=== PATIENT | female | born 1985 | race Caucasian/White ===

== ENCOUNTER 2022-11-09 10:00 | Outpatient (RCR) | payer MEDICAID, SELFPAY ==
[2022-10-12 08:58] VITALS: BP 138/100; PULSE 78; RESP 16; TEMP 35.9; BMI 28.3
--- NOTE | 2022-10-12 13:00 | PCM.WC.HP ---
History of Present Illness Date of Service: 10/12/22 Chief Complaint: Left Leg Ulcer. Right Middle finger ulcer History of Wound: Ms. Lemus is a 36-year-old who was referred to the wound center due to nonhealing left lower extremity and right hand ulcers. Left lower extremity ulcer started a year ago. She believes that it opened after poison rosa dermatitis a year ago following tattoo to the area. She states that she has been keeping it clean and about a month ago started putting Bactroban on it however no significant improvement. Right middle finger ulcer started a month ago. Works at [employer] and also has Raynaud's disease. She believes that it may have started from repeated pushing of the air Fryer at work. Significant pain reported especially in the right middle finger. History of diabetes mellitus and last A1c was at 6.6. Currently not on any medication. Also history of tobacco abuse. FOR[facility], [facility] Medical History (Updated 10/12/22 @ 13:[address] Pato Correa MD) Raynauds disease Skin ulcer of hand Type 2 diabetes mellitus Ulcer of left lower extremity with fat layer exposed Home Medications buspirone 5 mg tablet 5 mg PO TID PRN anxiety 10/12/22 [History Last Taken Unknown] lisinopril 2.5 mg tablet 2.5 mg PO DAILY 10/12/22 [History Last Taken Unknown] loratadine 10 mg tablet (Claritin) 10 mg PO DAILY PRN allergic symptoms 10/12/22 [History Last Taken Unknown] mupirocin 2 % topical ointment 1 applic topical DAILY 10/12/22 [History Last Taken Unknown] Allergy/AdvReac Type Severity Reaction Status Date / Time No Known Allergies Allergy Verified 10/12/22 09:16 Social History Smoking Status: Current every day smoker ROS Constitutional Constitutional: Denies change in weight, chills, daytime sleepiness, fatigue, fever(s), frequent falls, headache(s), increased appetite, lethargy, malaise or night sweats Eyes Eyes: Denies blind spots, bloody eye, blurry vision, change in eye color, change in vision, decreased night vision, discharge from eye(s), discongugate gaze or excessive blinking ENT HEENT: Denies foreign body in nose, halitosis, headache(s), hearing loss, mouth pain or nasal congestion Cardiovascular Cardiovascular: Reports cold extremities; Denies diaphoresis, dizziness, dyspnea, dyspnea at rest, dyspnea on exertion or easily tiring during activity Respiratory/Chest Respiratory/Chest: Denies chest congestion, chest tightness, excessive phlegm production, hemoptysis, hoarseness, inability to speak or mouth breathing Gastrointestinal Gastrointestinal: Denies chewing difficulty, coffee ground emesis, constipation, cramping, diarrhea, dry heaves, dyspepsia, dysphagia or early satiety Genitourinary Genitourinary: Denies abdominal discomfort, dribbling, erectile dysfunction, external genitalia discoloration, flank pain or genital lesions Musculoskeletal Musculoskeletal: Denies joint swelling, loss of height, muscle cramps, muscle weakness, myalgias, neck pain or numbness Integumentary Integumentary: Denies changing lesions, erythema, hirsutism, jaundice, nail changes or pruritus Neurologic Neurologic: Denies abnormal speech, behavior changes, burning sensations, convulsions, disequilibrium, dizziness, focal weakness or frequent falls Psychiatric Psychiatric: Denies auditory hallucinations, change in appetite, cognitive impairment, confusion, depression, difficulty concentrating or hallucinations Endocrine Endocrinology: Denies change in body appearance, cold intolerance, deepening of the voice, excessive sweating, fatigue or heat intolerance Hematologic/Lymphatic Hematologic/Lymphatic: Denies anemia, easy bleeding or easy bruising Allergic/Immunologic Allergic/Immunologic: Denies lip swelling, rhinitis, throat swelling, tongue swelling, eczemia, wheezing or asthma Vital Signs Vital Signs Vital Signs: 10/12/22 08:58 Temperature 96.7 F L Temperature Source Temporal Pulse Rate 78 Respiratory Rate 16 Blood Pressure 138/100 H Blood Pressure Mean 112 Blood Pressure Source Monitor Blood Pressure Position Sitting Blood Pressure Location Left Arm Oxygen Delivery Method Room Air Weight Weight: 186 lb Body Mass Index (BMI) 28.3 Physical Exam Const alert, oriented x3 and no apparent distress General Appearance: cooperative, comfortable and well kempt HEENT normocephalic, head/scalp atraumatic and hearing grossly normal bilaterally Eyes General Eye: normal appearance of both eyes Neck full ROM and supple General: normal visual inspection Resp normal respiratory effort and normal air movement Effort and Inspection: able to speak in complete sentences Cardio regular rate, regular rhythm, S1 normal heart sound and S2 normal heart sound GI soft to palpation, non-tender and non-distended Extremity General Extremity: edema Skin Wounds: wounds noted Neuro oriented x3, CN's II-XII intact bilaterally, moves all extremities and no focal motor deficits Psych mental status grossly normal, thought process normal, cooperative and affect normal Debridement Note Debridement Note Wound debrided: Left Lower Extremity Type of Debridement: Excisional debridement Anesthesia Used: 4% Lidocaine Solution Depth: Down to and including healthy tissue and in the subcutaneous layer Percentage of wound debrided: 100 Instrument Used: 5mm curette Tissue Removed: Slough and devitalized tissue Severity: Fat Layer Exposed Amount of bleeding with debridement: Mild Bleeding Controlled with: Pressure Patient tolerated procedure: Patient tolerated procedure well Post-Debridement Measurements and Additional Note: Post-Debridement Measurements/Treatment - Nurse 1 - General Ulcer Assessment Start: 10/12/22 08:57 Freq: Status: Active Protocol: KAMI Activity Type Activity Date Activity User E-sign Co-sign Detail Recorded Client Recorded Date Recorded By Document 10/12/22 08:58 [facility] [id number] 10/12/22 09:11 [facility] 10/12/22 08:58 - Today's Visit Information Type of service Initial Visit Arrival Mode Ambulatory Transfer Assistance None Patient Identification Verified (Name & Yes ) Patient Requires Transmission-Based No Precautions Height and Weight Height 5 ft 8 in Weight 186 lb Weight in Pounds 186.0 lbs Weight Measurement Method Stated by Patient Body Mass Index (BMI) 28.3 BMI Classification Overweight BSA - Sabine 1.98 Vital Signs Temperature (97.8 F-99.1 F) 96.7 F L Temperature Source Temporal Pulse Rate (60-100) 78 Pulse Location Monitor Respiratory Rate (12-18) 16 Respiratory rate source Observation Oxygen Delivery Method Room Air Blood Pressure (90/60-120/80) 138/100 H Blood Pressure Mean 112 Source Monitor Position Sitting Blood Pressure Location Left Arm History Since Last Visit- (Skip if this is Patient's initial visit) Left Footwear Regular Shoe Right Footwear Regular Shoe Pain Scale: 0-10 Numeric Is Patient Pain Free? Yes Lower Extremity Assessment/ Foot Assessment/ Toe Nail Assessment Right -Lower Extremity Comment (If N/A Above REYNAUDS, TOES ) BLUISH. PT STATES THIS IS NORMAL WHEN SHES COLD -Posterior Tibial Palpable No -Posterior Tibial Doppler Monophasic -Dorsalis Pedis Palpable No -Dorsalis Pedis Doppler Monophasic -Hair Growth on Legs Yes -Hair Growth on Toes No -Temperature of Extremity Cool -Other Deformity No -Prior Foot Ulcer No -Charcot Joint No -Prior Amputation No -Thick No -Discolored No -Deformed No -Improper Length & Hygeine No Left -Lower Extremity Comment (If N/A Above REYNAUDS, TOES ) BLUE TINGED -Posterior Tibial Palpable No -Posterior Tibial Doppler Monophasic -Dorsalis Pedis Palpable Yes -Dorsalis Pedis Doppler Monophasic -Hair Growth on Legs Yes -Hair Growth on Toes No -Temperature of Extremity Cool -Other Deformity No -Prior Foot Ulcer No -Charcot Joint No -Prior Amputation No -Thick No -Discolored No -Deformed No -Improper Length & Hygeine No Neuropathy Assessment Feet - Top Side and Bottom <Entered> (a) Communication Assessment Preferred language Swedish 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 Able to Read Yes Able to Write Yes Communication Tools None Right Hearing Abillity Normal Left Hearing Abillity Normal Visual Assistive Devices Glasses Teaching Assessment Preferences Verbal,Written, Audio/Visual, Demonstration Barriers to Learning None Readiness To Learn Excellent Willingness to Engage in Self Management High Activies Readiness to Engage in Self Management High Activities Anxiety Level Calm Cooperation Cooperative Perception Coherent Interest in Health Problem Asks Questions Education Importance Acknowledges Need Does Patient Smoke tobacco or other No substances Smoking Status Current every day smoker Is Patient Diabetic Yes Functional Assessment Recent Decline in Ability to Perform Denies Any Declines 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 Needs that may affect No Treatment Plan Teaching: Wound Center *Welcome to the Wound Center -Person Taught Patient -Teaching Method Discussion -Response to teaching Verbalize understanding Welcome to the Wound Care Center Swedish (a) 1 - + WC - Nurse 1 - General Ulcer Measurement Start: 10/12/22 08:57 Freq: Status: Active Protocol: Activity Type Activity Date Activity User E-sign Co-sign Detail Recorded Client Recorded Date Recorded By Document 10/12/22 08:58 [facility] [id number] 10/12/22 09:11 [facility] 10/12/22 08:58 Wound Center Nurse 1 #2- L GUTIERREZ -Combined with other wound No -Current Size (cm) - Length 2.8 -Current Size (cm) - Width 1.6 -Current Size (cm) - Depth 0.1 -Total Square Cm 4.48 -Date of Last Picture (Recall this 10/12/22 field) -Photo Taken Yes -Epithelialization None Present -Tunneling No -Undermining/Tunneling No -Circular Undermining No -Exudate Amt Medium -Exudate Type Serosanguineous -Wound Margin Flat & Intact -Granulation Amt Small (1-33%) -Granulation Quality Red -Slough/Fibrin Yes -Necrosis Amt Large (67-100%) -Necrotic Tissue Type Adherent Slough -Texture (Diamond-wound Skin Appearance) Assessed, Scarring -Moisture (Diamond-wound Skin Appearance) Assessed -Color (Diamond-wound Skin Appearance) Assessed, Erythema -Temperature (Diamond-wound Skin No Abnormality Appearance) (Pt Warm) -Tenderness on Palpation (Diamond-wound No Skin Appearance) -Ulcer Cleansing Soap and Water -Foul Odor after Cleansing No -Anesthetic Used 5% Lidocaine Gel #1- R MIDDLE FINGER -Combined with other wound No -Current Size (cm) - Length 0.1 -Current Size (cm) - Width 0.1 -Current Size (cm) - Depth 0.1 -Total Square Cm 0.01 -Date of Last Picture (Recall this 10/12/22 field) -Photo Taken Yes -Epithelialization None Present -Tunneling No -Undermining/Tunneling No -Circular Undermining No -Granulation Amt None Present (0 %) -Slough/Fibrin Yes -Necrosis Amt Large (67-100%) -Necrotic Tissue Type Eschar -Texture (Diamond-wound Skin Appearance) Assessed -Moisture (Diamond-wound Skin Appearance) Assessed -Color (Diamond-wound Skin Appearance) Assessed, Cyanosis -Temperature (Diamond-wound Skin No Abnormality Appearance) (Pt Warm) -Tenderness on Palpation (Diamond-wound No Skin Appearance) -Ulcer Cleansing Soap and Water -Foul Odor after Cleansing No -Anesthetic Used 5% Lidocaine Gel -Wound Comment(s) PT W/ VETOS. FNGERS BLUE TINGED Lower Limb Edema Present Yes Right Calf (cm) 42 Right Ankle (cm) 26 Left Calf (cm) 43.3 Left Ankle (cm) 24.2 WC - Nurse 2 - General Ulcer CM Notes Start: 10/12/22 08:57 Freq: Status: Active Protocol: Activity Type Activity Date Activity User E-sign Co-sign Detail Recorded Client Recorded Date Recorded By Document 10/12/22 09:50 MW [id number] 10/12/22 10:05 MW 10/12/22 09:50 Wound Center Nurse 2 #2- L GUTIERREZ -Time 09:50 -Correct Patient Yes -Correct Side, Site, Position Yes -Correct Procedure Yes -Procedure Performed Yes -Type of Procedure Debridement -Clinical Debridement Subcutaneous -Tissue Removed Subcutaneous -Post Debridement (cm) - Length 3.0 -Post Debridement (cm) - Width 2.0 -Post Debridement (cm) - Depth 0.1 -Total Square (Post) (cm) 6.00 -Area of Debridement (cm) - Length 3.0 -Area of Debridement (cm) - Width 2.0 -Total Square (Area) (cm) 6.00 -Tunneling No -Undermining/Tunneling No -Circular Undermining No -Wound/Ulcer Outcome Not Healed -Ulcer Cleansing Rinsed/ Irrigated with Saline -Foul Odor after Cleansing No -Bioengineered Tissue No -Bleeding Controlled with Pressure -Treatment Response Procedure Tolerated Well -Offloading No -Debridement - Subq, 1st 20sq cm Yes #1- R MIDDLE FINGER -Time 09:50 -Correct Patient Yes -Correct Side, Site, Position Yes -Correct Procedure Yes -Procedure Performed No -Post Debridement (cm) - Length 0.1 -Post Debridement (cm) - Width 0.1 -Post Debridement (cm) - Depth 0.1 -Total Square (Post) (cm) 0.01 -Tunneling No -Undermining/Tunneling No -Circular Undermining No -Wound/Ulcer Outcome Not Healed -Ulcer Cleansing Rinsed/ Irrigated with Saline -Foul Odor after Cleansing No -Bioengineered Tissue No Pain Scale: 0-10 Numeric Is Patient Pain Free? Yes WC - Nurse 3 - General Ulcer D/C NN Start: 10/12/22 08:57 Freq: Status: Active Protocol: Activity Type Activity Date Activity User E-sign Co-sign Detail Recorded Client Recorded Date Recorded By Document 10/12/22 10:09 RB [id number] 10/12/22 10:11 RB 10/12/22 10:09 Wound Care Center Nurse 3 #2- L GUTIERRZE -Ulcer Cleansing Rinsed/ Irrigated with Saline -Primary Dressing Applied Aquacel Extra, Mepilex Border -Aquacel Extra 1 -Mepilex Border 1 #1- R MIDDLE FINGER -Ulcer Cleansing Rinsed/ Irrigated with Saline -Primary Dressing Applied C Hydrogel ($), NonAdherent Contact Layer -Primary Dressing Covered/Secured with Dry Gauze & Roll Gauze, Secured with Tape Right -Tubular Bandage Double Layer -Size of Tubigrip Used Size E -Size E ($) 2 Left -Tubular Bandage Double Layer -Size of Tubigrip Used Size E -Size E ($) 2 Pain Scale: 0-10 Numeric Is Patient Pain Free? Yes WC - Visit Discharge Discharge Condition Stable Ambulatory Status Ambulatory Transportation Private Auto Medication Reconcilliation completed & No provided to patient/care provider Clinical Summary of Care Provided Yes Notes: assisted Lizet Bowden RN with dressing change Charges/Coding Visit Charges Office Visits / Consults: [id number] OV L3 New Procedures Integumentary [id number]: [id number] Aurelia subq tissue 20 sq cm/< Assessment/Plan Assessment/Plan (1) Ulcer of left lower extremity with fat layer exposed: CODE(S): L97.922 - Non-pressure chronic ulcer of unspecified part of left lower leg with fat layer exposed (2) Type 2 diabetes mellitus: CODE(S): E11.9 - Type 2 diabetes mellitus without complications QUALIFIERS: Diabetes mellitus long-term insulin use: without long-term use Diabetes mellitus complication status: with other specified complication Qualified Code(s): E11.69 - Type 2 diabetes mellitus with other specified complication (3) Raynauds disease: CODE(S): I73.00 - Raynaud's syndrome without gangrene QUALIFIERS: Raynaud?s-associated gangrene presence: with gangrene Qualified Code(s): I73.01 - Raynaud's syndrome with gangrene (4) Skin ulcer of hand: CODE(S): L98.499 - Non-pressure chronic ulcer of skin of other sites with unspecified severity QUALIFIERS: Non-pressure ulcer stage: unspecified non-pressure ulcer stage Qualified Code(s): L98.499 - Non-pressure chronic ulcer of skin of other sites with unspecified severity PLAN: Plan Debridement done as documented above, procedure was well-tolerated. Did not tolerate debridement to right middle finger so this was stopped. Due to chronicity, cultures taken from left lower extremity. Aquacel extra to left lower extremity. Foam dressing over top. Change daily to twice daily depending on drainage. Double layer Tubigrip for edema management. Hydrogel to right middle finger, change daily. She was advised to speak with her primary care provider about going on a medication for diabetes. Lifestyle and dietary modifications also discussed. Increase protein intake, vitamin C, D and zinc also discussed to aid in wound healing, patient voiced understanding. Follow-up in a week or sooner if needed. This note was generated with [employer] dictation software. It may contain incorrect words, spelling, and punctuation that were not noted in checking the note before signing.
[2022-11-09 10:15] VITALS: BP 123/93; PULSE 80; TEMP 35.8; BMI 28.3
--- NOTE | 2022-11-09 12:56 | PCM.WC.PN ---
History of Present Illness Date of Service: 11/09/22 Chief Complaint: Left Leg Ulcer. Right Middle finger ulcer History of Wound: Ms. Lemus is a 36-year-old who was referred to the wound center due to nonhealing left lower extremity and right hand ulcers. Left lower extremity ulcer started a year ago. She believes that it opened after poison rosa dermatitis a year ago following tattoo to the area. She states that she has been keeping it clean and about a month ago started putting Bactroban on it however no significant improvement. Right middle finger ulcer started a month ago. Works at [employer] and also has Raynaud's disease. She believes that it may have started from repeated pushing of the air Fryer at work. Significant pain reported especially in the right middle finger. History of diabetes mellitus and last A1c was at 6.6. Currently not on any medication. Also history of tobacco abuse. Progress of Wound: Here 3 weeks ago. She states that she was concerned about infection to her left lower extremity because she had not been washing it appropriately. Started using Silvadene in addition to Aquacel. Has been applying hydrogel to right finger. Objective Data Objective Data Vital Signs: Vital Signs Temp Pulse Resp BP O2 Del Method 96.5 F L 80 16 123/93 H Room Air 11/09/22 10:15 11/09/22 10:15 10/12/22 08:58 11/09/22 10:15 10/12/22 08:58 Oxygen Delivery Method Room Air Weight: 186 lb Body Mass Index (BMI) 28.3 Lab / Micro Data Micro: Microbiology 10/12/22 10:00 Wound - Leg, Right Gram Stain - Final 10/12/22 10:00 Wound - Leg, Right Wound Culture - Final Staphylococcus epidermidis Corynebacterium glucuronolytic 10/12/22 10:00 Wound - Leg, Right Anaerobic Culture - Final Anaerobic cocci Charges/Coding Procedures Integumentary [id number]: [id number] Aurelia subq tissue 20 sq cm/< Physical Exam Const alert, oriented x3 and no apparent distress General Appearance: cooperative, comfortable and well kempt HEENT normocephalic, head/scalp atraumatic and hearing grossly normal bilaterally Eyes General Eye: normal appearance of both eyes Neck full ROM and supple General: normal visual inspection Resp normal respiratory effort Effort and Inspection: able to speak in complete sentences Extremity General Extremity: edema Skin Wounds: wounds noted Neuro oriented x3, CN's II-XII intact bilaterally, moves all extremities and no focal motor deficits Psych mental status grossly normal, thought process normal, cooperative and affect normal Debridement Note Debridement Note Wound debrided: Left Lower Extremity Type of Debridement: Excisional debridement Anesthesia Used: 4% Lidocaine Solution Depth: Down to and including healthy tissue and in the subcutaneous layer Percentage of wound debrided: 100 Instrument Used: 5mm curette Tissue Removed: Slough and devitalized tissue Severity: Fat Layer Exposed Amount of bleeding with debridement: Mild Bleeding Controlled with: Pressure Patient tolerated procedure: Patient tolerated procedure well Post-Debridement Measurements and Additional Note: Post-Debridement Measurements/Treatment - Nurse 1 - General Ulcer Assessment Start: 10/12/22 08:57 Freq: Status: Active Protocol: KAMI Activity Type Activity Date Activity User E-sign Co-sign Detail Recorded Client Recorded Date Recorded By Document 10/12/22 08:58 [facility] [id number] 10/12/22 09:11 [facility] Document 11/09/22 10:15 [facility] [id number] 11/09/22 10:25 [facility] 10/12/22 11/09/22 08:58 10:15 - Today's Visit Information Type of service Initial Visit Follow-up Visit (Physician/[facility] ) Arrival Mode Ambulatory Ambulatory Transfer Assistance None None Patient Identification Verified (Name & Yes Yes ) Patient Requires Transmission-Based No No Precautions Height and Weight Height 5 ft 8 in Weight 186 lb Weight in Pounds 186.0 lbs Weight Measurement Method Stated by Patient Body Mass Index (BMI) 28.3 28.3 BMI Classification Overweight Overweight BSA - Sabine 1.98 Vital Signs Temperature (97.8 F-99.1 F) 96.7 F L 96.5 F L Temperature Source Temporal Temporal Pulse Rate (60-100) 78 80 Pulse Location Monitor Monitor Respiratory Rate (12-18) 16 Respiratory rate source Observation Oxygen Delivery Method Room Air Blood Pressure (90/60-120/80) 138/100 H 123/93 H Blood Pressure Mean (mm Hg) 112 103 Source Monitor Monitor Position Sitting Sitting Blood Pressure Location Left Arm Left Arm History Since Last Visit- (Skip if this is Patient's initial visit) Have you changed medications since your No last visit? Any new allergies or adverse reactions No Had a fall/change in ADL's that may No increase risk of falls Signs or symptoms of abuse and/or No neglect since last visit Have you been in the hospital since your No last visit? Has dressing in place as prescribed No Has compression in place as prescribed No Has offloadiing in place as prescribed N/A Experienced any changes in pain level or No management Left Footwear Regular Shoe Regular Shoe Right Footwear Regular Shoe Regular Shoe Pain Scale: 0-10 Numeric Is Patient Pain Free? Yes Yes Lower Extremity Assessment/ Foot Assessment/ Toe Nail Assessment Right -Lower Extremity Comment (If N/A Above REYNAUDS, TOES ) BLUISH. PT STATES THIS IS NORMAL WHEN SHES COLD -Posterior Tibial Palpable No -Posterior Tibial Doppler Monophasic -Dorsalis Pedis Palpable No -Dorsalis Pedis Doppler Monophasic -Hair Growth on Legs Yes -Hair Growth on Toes No -Temperature of Extremity Cool -Other Deformity No -Prior Foot Ulcer No -Charcot Joint No -Prior Amputation No -Thick No -Discolored No -Deformed No -Improper Length & Hygeine No Left -Lower Extremity Comment (If N/A Above REYNAUDS, TOES ) BLUE TINGED -Posterior Tibial Palpable No -Posterior Tibial Doppler Monophasic -Dorsalis Pedis Palpable Yes -Dorsalis Pedis Doppler Monophasic -Hair Growth on Legs Yes -Hair Growth on Toes No -Temperature of Extremity Cool -Other Deformity No -Prior Foot Ulcer No -Charcot Joint No -Prior Amputation No -Thick No -Discolored No -Deformed No -Improper Length & Hygeine No Neuropathy Assessment Feet - Top Side and Bottom <Entered> (a) Communication Assessment Preferred language Macedonian Felled Seam 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 No Able to Read Yes Able to Write Yes Communication Tools None Right Hearing Abillity Normal Left Hearing Abillity Normal Visual Assistive Devices Glasses Teaching Assessment Preferences Verbal,Written, Audio/Visual, Demonstration Barriers to Learning None Readiness To Learn Excellent Willingness to Engage in Self Management High Activies Readiness to Engage in Self Management High Activities Anxiety Level Calm Cooperation Cooperative Perception Coherent Interest in Health Problem Asks Questions Education Importance Acknowledges Need Does Patient Smoke tobacco or other No substances Smoking Status Current every day smoker Is Patient Diabetic Yes Functional Assessment Recent Decline in Ability to Perform Denies Any Declines Culture/Buddhist/Clinical Operations Leader Cultural/Buddhist Needs that may affect No Treatment Plan Teaching: Wound Center *Welcome to the Wound Center -Person Taught Patient -Teaching Method Discussion -Response to teaching Verbalize understanding Welcome to the Wound Care Center Macedonian (a) 1 - + WC - Nurse 1 - General Ulcer Measurement Start: 10/12/22 08:57 Freq: Status: Active Protocol: Activity Type Activity Date Activity User E-sign Co-sign Detail Recorded Client Recorded Date Recorded By Document 10/12/22 08:58 [facility] [id number] 10/12/22 09:11 [facility] Document 11/09/22 10:15 BM [id number] 11/09/22 10:25 [facility] 10/12/22 11/09/22 08:58 10:15 Wound Center Nurse 1 #2- L GUTIERREZ -Combined with other wound No No -Current Size (cm) - Length 2.8 2.4 -Current Size (cm) - Width 1.6 1.2 -Current Size (cm) - Depth 0.1 0.2 -Total Square Cm 4.48 2.88 -Date of Last Picture (Recall this 10/12/22 11/09/22 field) -Photo Taken Yes Yes -Epithelialization None Present None Present -Tunneling No No -Undermining/Tunneling No No -Circular Undermining No No -Exudate Amt Medium Medium -Exudate Type Serosanguineous Serosanguineous -Wound Margin Flat & Intact Distinct, Outline Attached -Granulation Amt Small (1-33%) None Present (0 %) -Granulation Quality Red -Slough/Fibrin Yes Yes -Necrosis Amt Large (67-100%) Large (67-100%) -Necrotic Tissue Type Adherent Slough Adherent Slough -Texture (Diamond-wound Skin Appearance) Assessed, Assessed, Scarring Scarring -Moisture (Diamond-wound Skin Appearance) Assessed Assessed -Color (Diamond-wound Skin Appearance) Assessed, Assessed, Erythema Hemosiderin Staining -Temperature (Diamond-wound Skin No Abnormality No Abnormality Appearance) (Pt Warm) (Pt Warm) -Tenderness on Palpation (Diamond-wound No No Skin Appearance) -Ulcer Cleansing Soap and Water Soap and Water -Foul Odor after Cleansing No No -Anesthetic Used 5% Lidocaine 5% Lidocaine Gel Gel #1- R MIDDLE FINGER -Combined with other wound No No -Current Size (cm) - Length 0.1 0.6 -Current Size (cm) - Width 0.1 0.7 -Current Size (cm) - Depth 0.1 0.1 -Total Square Cm 0.01 0.42 -Date of Last Picture (Recall this 10/12/22 11/09/22 field) -Photo Taken Yes Yes -Epithelialization None Present None Present -Tunneling No No -Undermining/Tunneling No No -Circular Undermining No No -Exudate Amt Small -Exudate Type Serous -Wound Margin Distinct, Outline Attached -Granulation Amt None Present (0 None Present (0 %) %) -Slough/Fibrin Yes Yes -Necrosis Amt Large (67-100%) Large (67-100%) -Necrotic Tissue Type Eschar Adherent Slough -Texture (Diamond-wound Skin Appearance) Assessed Assessed, Scarring -Moisture (Diamond-wound Skin Appearance) Assessed Assessed -Color (Diamond-wound Skin Appearance) Assessed, Assessed, Cyanosis Erythema -Temperature (Diamond-wound Skin No Abnormality No Abnormality Appearance) (Pt Warm) (Pt Warm) -Tenderness on Palpation (Diamond-wound No No Skin Appearance) -Ulcer Cleansing Soap and Water Rinsed/ Irrigated with Saline -Foul Odor after Cleansing No No -Anesthetic Used 5% Lidocaine 5% Lidocaine Gel Gel -Wound Comment(s) PT W/ REYNAUDS. FNGERS BLUE TINGED Lower Limb Edema Present Yes Yes Right Calf (cm) 42 Right Ankle (cm) 26 Left Calf (cm) 43.3 38.2 Left Ankle (cm) 24.2 25.6 WC - Nurse 2 - General Ulcer CM Notes Start: 10/12/22 08:57 Freq: Status: Active Protocol: Activity Type Activity Date Activity User E-sign Co-sign Detail Recorded Client Recorded Date Recorded By Document 10/12/22 09:50 MW [id number] 10/12/22 10:05 MW Document 11/09/22 10:42 [id number] 11/09/22 10:45 10/12/22 11/09/22 09:50 10:42 Wound Center Nurse 2 #2- L GUTIERREZ -Time 09:50 10:44 -Correct Patient Yes Yes -Correct Side, Site, Position Yes Yes -Correct Procedure Yes Yes -Procedure Performed Yes Yes -Type of Procedure Debridement Debridement -Clinical Debridement Subcutaneous Subcutaneous -Tissue Removed Subcutaneous Subcutaneous -Post Debridement (cm) - Length 3.0 2.5 -Post Debridement (cm) - Width 2.0 2.2 -Post Debridement (cm) - Depth 0.1 0.2 -Total Square (Post) (cm) 6.00 5.50 -Area of Debridement (cm) - Length 3.0 2.5 -Area of Debridement (cm) - Width 2.0 2.2 -Total Square (Area) (cm) 6.00 5.50 -Tunneling No No -Undermining/Tunneling No No -Circular Undermining No No -Wound/Ulcer Outcome Not Healed Not Healed -Ulcer Cleansing Rinsed/ Rinsed/ Irrigated with Irrigated with Saline Saline -Foul Odor after Cleansing No No -Bioengineered Tissue No No -Bleeding Controlled with Pressure Pressure -Treatment Response Procedure Procedure Tolerated Well Tolerated Well -Offloading No No -Debridement - Subq, 1st 20sq cm Yes Yes #1- R MIDDLE FINGER -Time 09:50 10:44 -Correct Patient Yes Yes -Correct Side, Site, Position Yes Yes -Correct Procedure Yes Yes -Procedure Performed No Yes -Type of Procedure Debridement -Clinical Debridement Subcutaneous -Tissue Removed Subcutaneous -Post Debridement (cm) - Length 0.1 0.7 -Post Debridement (cm) - Width 0.1 0.5 -Post Debridement (cm) - Depth 0.1 0.1 -Total Square (Post) (cm) 0.01 0.35 -Area of Debridement (cm) - Length 0.7 -Area of Debridement (cm) - Width 0.5 -Total Square (Area) (cm) 0.35 -Tunneling No No -Undermining/Tunneling No No -Circular Undermining No No -Wound/Ulcer Outcome Not Healed Not Healed -Ulcer Cleansing Rinsed/ Rinsed/ Irrigated with Irrigated with Saline Saline -Foul Odor after Cleansing No No -Bioengineered Tissue No No -Bleeding Controlled with Pressure -Treatment Response Procedure Tolerated Well -Offloading No -Debridement - Subq, 1st 20sq cm No Pain Scale: 0-10 Numeric Is Patient Pain Free? Yes Yes - Nurse 3 - General Ulcer D/C NN Start: 10/12/22 08:57 Freq: Status: Active Protocol: Activity Type Activity Date Activity User E-sign Co-sign Detail Recorded Client Recorded Date Recorded By Document 10/12/22 10:09 RB [id number] 10/12/22 10:11 RB Document 11/09/22 11:07 RB [id number] 11/09/22 11:09 RB 10/12/22 11/09/22 10:09 11:07 Wound Care Center Nurse 3 #2- L GUTIERREZ -Ulcer Cleansing Rinsed/ Rinsed/ Irrigated with Irrigated with Saline Saline -Primary Dressing Applied Aquacel Extra, Aquacel Extra, Mepilex Border Mepilex Border -Aquacel Extra 1 1 -Mepilex Border 1 1 #1- R MIDDLE FINGER -Ulcer Cleansing Rinsed/ Irrigated with Saline -Primary Dressing Applied C Hydrogel ($), NonAdherent NonAdherent Contact Layer Contact Layer -Other Dressing hydrogel -Primary Dressing Covered/Secured with Dry Gauze & Dry Gauze, Roll Gauze, Secured with Secured with Tape Tape Right -Tubular Bandage Double Layer Double Layer -Size of Tubigrip Used Size E Size D -Size D ($) 2 -Size E ($) 2 Left -Tubular Bandage Double Layer Double Layer -Size of Tubigrip Used Size E Size D -Size D ($) 2 -Size E ($) 2 Treatment Response Procedure Tolerated Well Pain Scale: 0-10 Numeric Is Patient Pain Free? Yes Yes WC - Visit Discharge Discharge Condition Stable Stable Ambulatory Status Ambulatory Ambulatory Transportation Private Auto Private Auto Medication Reconcilliation completed & No No provided to patient/care provider Clinical Summary of Care Provided Yes Yes Notes: assisted Lizet Bowden RN with dressing change Additional Wound Wound debrided: Right Middle Finger Type of Debridement: Excisional debridement Anesthesia Used: 4% Lidocaine Solution Depth: Down to and including healthy tissue and in the subcutaneous layer Percentage of wound debrided: 100 Instrument Used: #15 blade and Forceps Tissue Removed: Slough and Devitalized tissue Severity: Fat Layer Exposed Amount of bleeding with debridement: Mild Bleeding Controlled with: Pressure Patient tolerated procedure: Patient tolerated procedure well Assessment/Plan Assessment/Plan (1) Ulcer of left lower extremity with fat layer exposed: CODE(S): L97.922 - Non-pressure chronic ulcer of unspecified part of left lower leg with fat layer exposed (2) Type 2 diabetes mellitus: CODE(S): E11.9 - Type 2 diabetes mellitus without complications QUALIFIERS: Diabetes mellitus subwarehouse supervisor insulin use: without subwarehouse supervisor use Diabetes mellitus complication status: with other specified complication Qualified Code(s): E11.69 - Type 2 diabetes mellitus with other specified complication (3) Raynauds disease: CODE(S): I73.00 - Raynaud's syndrome without gangrene QUALIFIERS: Raynaud?s-associated gangrene presence: with gangrene Qualified Code(s): I73.01 - Raynaud's syndrome with gangrene (4) Skin ulcer of hand: CODE(S): L98.499 - Non-pressure chronic ulcer of skin of other sites with unspecified severity QUALIFIERS: Non-pressure ulcer stage: unspecified non-pressure ulcer stage Qualified Code(s): L98.499 - Non-pressure chronic ulcer of skin of other sites with unspecified severity PLAN: Plan Debridement done as documented above, procedure was better tolerated. Repeat culture taken after debridement due to her concern for infection. Significant slough noted. She was advised to clean with soap and water. Continue Aquacel extra to left lower extremity. Foam dressing over top. Change daily to twice daily depending on drainage. Double layer Tubigrip for edema management. Continue hydrogel to right middle finger, change daily. Increase protein intake, vitamin C, D and zinc also discussed to aid in wound healing, patient voiced understanding. Follow-up in a week or sooner if needed. This note was generated with [employer] software. It may contain incorrect words, spelling, and punctuation that were not noted in checking the note before signing.
== END 2022-11-09 23:59 | disposition home or self-care (01) ==
LOC: WC 10:00
PROVIDERS: PCP Physician Assistant Medical; Visit Provider Internal Medicine
DX: E11.622 Type 2 diabetes mellitus with other skin ulcer (principal); I73.01 Raynaud's syndrome with gangrene; L98.492 Non-pressure chronic ulcer of skin of other sites with fat layer exposed; L97.922 Non-pressure chronic ulcer of unspecified part of left lower leg with fat layer exposed; E11.40 Type 2 diabetes mellitus with diabetic neuropathy, unspecified; E11.69 Type 2 diabetes mellitus with other specified complication; Z87.891 Personal history of nicotine dependence; R60.0 Localized edema
CPT/HCPCS: 11042; 87070; 87075; 87077; 87186; 87205; 99203; G0463

== ENCOUNTER 2022-11-23 11:00 | Outpatient (RCR) | payer MEDICAID, SELFPAY ==
[2022-11-10 00:26] VITALS: BP 123/93; PULSE 80; RESP 16; TEMP 35.8; BMI 28.3
[2022-11-16 10:51] VITALS: BP 125/95; PULSE 74; RESP 18; TEMP 36; BMI 28.3
--- NOTE | 2022-11-16 12:43 | PCM.WC.PN ---
History of Present Illness Date of Service: 11/16/22 Chief Complaint: Left Leg Ulcer. Right Middle finger ulcer History of Wound: Ms. Lemus is a 36-year-old who was referred to the wound center due to nonhealing left lower extremity and right hand ulcers. Left lower extremity ulcer started a year ago. She believes that it opened after poison rosa dermatitis a year ago following tattoo to the area. She states that she has been keeping it clean and about a month ago started putting Bactroban on it however no significant improvement. Right middle finger ulcer started a month ago. Works at [employer] and also has Raynaud's disease. She believes that it may have started from repeated pushing of the air Fryer at work. Significant pain reported especially in the right middle finger. History of diabetes mellitus and last A1c was at 6.6. Currently not on any medication. Also history of tobacco abuse. Progress of Wound: No new concerns. Left Lower extremity Ulcer with no growth. Objective Data Objective Data Vital Signs: Vital Signs Temp Pulse Resp BP 96.8 F L 74 18 125/95 H 11/16/22 10:51 11/16/22 10:51 11/16/22 10:51 11/16/22 10:51 Weight: 186 lb Body Mass Index (BMI) 28.3 Charges/Coding Procedures Integumentary 111xxx-113xx: [id number] [place] subq tissue 20 sq cm/< Physical Exam Const alert, oriented x3 and no apparent distress General Appearance: cooperative, comfortable and well kempt HEENT normocephalic, head/scalp atraumatic and hearing grossly normal bilaterally Eyes General Eye: normal appearance of both eyes Neck full ROM and supple General: normal visual inspection Resp normal respiratory effort Effort and Inspection: able to speak in complete sentences Extremity General Extremity: edema Skin Wounds: wounds noted Neuro oriented x3, CN's II-XII intact bilaterally, moves all extremities and no focal motor deficits Psych mental status grossly normal, thought process normal, cooperative and affect normal Debridement Note Debridement Note Wound debrided: Left Lower Extremity Type of Debridement: Excisional debridement Anesthesia Used: 4% Lidocaine Solution Depth: Down to and including healthy tissue and in the subcutaneous layer Percentage of wound debrided: 100 Instrument Used: 5mm curette Tissue Removed: Slough and devitalized tissue Severity: Fat Layer Exposed Amount of bleeding with debridement: Mild Bleeding Controlled with: Pressure Patient tolerated procedure: Patient tolerated procedure well Post-Debridement Measurements and Additional Note: Post-Debridement Measurements/Treatment JERMAINE - Nurse 1 - General Ulcer Assessment Start: 11/16/22 10:51 Freq: Status: Active Protocol: KAMI Activity Type Activity Date Activity User E-sign Co-sign Detail Recorded Client Recorded Date Recorded By Document 11/16/22 10:51 YUDITH [id number] 11/16/22 10:53 YUDITH 11/16/22 10:51 - Today's Visit Information Type of service 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 [employer] ) Arrival Mode Ambulatory Transfer Assistance None Patient Identification Verified (Name & Yes ) Height and Weight Body Mass Index (BMI) 28.3 BMI Classification Overweight Vital Signs Temperature (97.8 F-99.1 F) 96.8 F L Temperature Source Temporal Pulse Rate (60-100) 74 Pulse Location Monitor Respiratory Rate (12-18) 18 Respiratory rate source Observation Blood Pressure (90/60-120/80) 125/95 H Blood Pressure Mean (mm Hg) 105 Source Monitor Position Semi-Fowlers Blood Pressure Location Left Arm History Since Last Visit- (Skip if this is Patient's initial visit) Have you changed medications since your No last visit? Any new allergies or adverse reactions No Had a fall/change in ADL's that may No increase risk of falls Signs or symptoms of abuse and/or No neglect since last visit Have you been in the hospital since your No last visit? Has dressing in place as prescribed Yes Has compression in place as prescribed No Has offloadiing in place as prescribed No Experienced any changes in pain level or No management Pain Scale: 0-10 Numeric Is Patient Pain Free? Yes Divina Nurse 1 - General Ulcer Measurement Start: 11/16/22 10:51 Freq: Status: Active Protocol: Activity Type Activity Date Activity User E-sign Co-sign Detail Recorded Client Recorded Date Recorded By Document 11/16/22 10:51 YUDITH [id number] 11/16/22 10:53 YUDITH 11/16/22 10:51 Wound Center Nurse 1 #2- L GUTIERREZ -Combined with other wound No -Current Size (cm) - Length 2.9 -Current Size (cm) - Width 1.7 -Current Size (cm) - Depth 0.2 -Total Square Cm 4.93 -Photo Taken Yes -Tunneling No -Undermining/Tunneling No -Circular Undermining No -Exudate Amt Medium -Exudate Type Serosanguineous -Wound Margin Distinct, Outline Attached -Granulation Amt Medium (34-66%) -Granulation Quality Edith Endave -Slough/Fibrin Yes -Necrosis Amt Medium (34-66%) -Necrotic Tissue Type Adherent Slough -Structure Exposed N/A -Texture (Diamond-wound Skin Appearance) Assessed -Moisture (Diamond-wound Skin Appearance) Assessed -Color (Diamond-wound Skin Appearance) Assessed -Temperature (Diamond-wound Skin No Abnormality Appearance) (Pt Warm) -Tenderness on Palpation (Diamond-wound No Skin Appearance) -Ulcer Cleansing Wound Cleanser -Foul Odor after Cleansing No -Anesthetic Used 4% Lidocaine Solution,5% Lidocaine Gel #1- R MIDDLE FINGER -Combined with other wound No -Current Size (cm) - Length 0.1 -Current Size (cm) - Width 0.1 -Current Size (cm) - Depth 0.1 -Total Square Cm 0.01 -Photo Taken Yes -Tunneling No -Undermining/Tunneling No -Circular Undermining No -Exudate Amt Medium -Exudate Type Serosanguineous -Wound Margin Distinct, Outline Attached -Granulation Amt Medium (34-66%) -Granulation Quality Edith Endave -Slough/Fibrin Yes -Necrosis Amt Medium (34-66%) -Necrotic Tissue Type Adherent Slough -Structure Exposed N/A -Texture (Diamond-wound Skin Appearance) Assessed -Moisture (Diamond-wound Skin Appearance) Assessed -Color (Diamond-wound Skin Appearance) Assessed -Temperature (Diamond-wound Skin No Abnormality Appearance) (Pt Warm) -Tenderness on Palpation (Diamond-wound No Skin Appearance) -Ulcer Cleansing Wound Cleanser -Foul Odor after Cleansing No -Anesthetic Used 4% Lidocaine Solution,5% Lidocaine Gel Lower Limb Edema Present Yes Left Calf (cm) 37.5 Left Ankle (cm) 26.5 WC - Nurse 2 - General Ulcer CM Notes Start: 11/16/22 10:51 Freq: Status: Active Protocol: Activity Type Activity Date Activity User E-sign Co-sign Detail Recorded Client Recorded Date Recorded By Document 11/16/22 11:13 BART [id number] 11/16/22 11:19 BART 11/16/22 11:13 Wound Center Nurse 2 #2- L GUTIERREZ -Time 11:14 -Correct Patient Yes -Correct Side, Site, Position Yes -Correct Procedure Yes -Procedure Performed Yes -Type of Procedure Debridement -Clinical Debridement Subcutaneous -Tissue Removed Subcutaneous -Post Debridement (cm) - Length 2.8 -Post Debridement (cm) - Width 1.8 -Post Debridement (cm) - Depth 0.2 -Total Square (Post) (cm) 5.04 -Area of Debridement (cm) - Length 2.8 -Area of Debridement (cm) - Width 1.8 -Total Square (Area) (cm) 5.04 -Tunneling No -Undermining/Tunneling No -Circular Undermining No -Wound/Ulcer Outcome Not Healed -Ulcer Cleansing Rinsed/ Irrigated with Saline -Foul Odor after Cleansing No -Bioengineered Tissue No -Bleeding Controlled with Pressure -Treatment Response Procedure Tolerated Well -Offloading No -Debridement - Subq, 1st 20sq cm Yes #1- R MIDDLE FINGER -Time 11:15 -Correct Patient No -Correct Side, Site, Position No -Correct Procedure No -Procedure Performed No -Tunneling No -Undermining/Tunneling No -Circular Undermining No -Wound/Ulcer Outcome Not Healed -Foul Odor after Cleansing No -Bioengineered Tissue No -Bleeding Controlled with Pressure -Treatment Response Procedure Not Tolerated Well -Offloading No -Debridement - Subq, 1st 20sq cm No Pain Scale: 0-10 Numeric Is Patient Pain Free? Yes - Nurse 3 - General Ulcer D/C NN Start: 11/16/22 10:51 Freq: Status: Active Protocol: Activity Type Activity Date Activity User E-sign Co-sign Detail Recorded Client Recorded Date Recorded By Document 11/16/22 11:38 [facility] [id number] 11/16/22 11:39 [facility] 11/16/22 11:38 Wound Care Center Nurse 3 #2- L GUTIERREZ -Ulcer Cleansing Rinsed/ Irrigated with Saline -Foul Odor after Cleansing No -Primary Dressing Applied Fibracol Plus 4x4 -Other Dressing ABD -Fibracol Plus 4x4 1 #1- R MIDDLE FINGER -Ulcer Cleansing Rinsed/ Irrigated with Saline -Foul Odor after Cleansing No -Primary Dressing Applied Fibracol Plus 4x4 -Primary Dressing Covered/Secured with Dry Gauze, Secured with Tape -Fibracol Plus 4x4 0 Left -Multi-Layered Wrap Application Multi-Layer Comp - Left ($) Pain Scale: 0-10 Numeric Is Patient Pain Free? 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 Diabetes mellitus complication status: with other specified complication Qualified Code(s): E11.69 - Type 2 diabetes mellitus with other specified complication (3) Raynauds disease: CODE(S): I73.00 - Raynaud's syndrome without gangrene QUALIFIERS: Raynaud?s-associated gangrene presence: with gangrene Qualified Code(s): I73.01 - Raynaud's syndrome with gangrene (4) Skin ulcer of hand: CODE(S): L98.499 - Non-pressure chronic ulcer of skin of other sites with unspecified severity QUALIFIERS: Non-pressure ulcer stage: unspecified non-pressure ulcer stage Qualified Code(s): L98.499 - Non-pressure chronic ulcer of skin of other sites with unspecified severity PLAN: Plan Debridement done as documented above, procedure was better tolerated. Still has significant lower extremity edema. Switch to Fibricol, cover with gauze. 3M wrap for edema management, leave in place for a week. Continue hydrogel to right middle finger, change daily. Increase protein intake, vitamin C, D and zinc also discussed to aid in wound healing, patient voiced understanding. Call with any concerns and follow-up in a week or sooner if needed. This note was generated with [employer] dictation software. It may contain incorrect words, spelling, and punctuation that were not noted in checking the note before signing.
[2022-11-23 11:48] VITALS: BP 130/100; PULSE 74; RESP 18; TEMP 36.2; BMI 28.3
--- NOTE | 2022-11-23 13:29 | PN.PCM_ITS ---
History of Present Illness Date of Service: 11/23/22 Chief Complaint: Left Leg Ulcer. Right Middle finger ulcer History of Wound: Ms. Lemus is a 36-year-old who was referred to the wound center due to nonhealing left lower extremity and right hand ulcers. Left lower extremity ulcer started a year ago. She believes that it opened after poison rosa dermatitis a year ago following tattoo to the area. She states that she has been keeping it clean and about a month ago started putting Bactroban on it however no significant improvement. Right middle finger ulcer started a month ago. Works at [employer] and also has Raynaud's disease. She believes that it may have started from repeated pushing of the air Fryer at work. Significant pain reported especially in the right middle finger. History of diabetes mellitus and last A1c was at 6.6. Currently not on any medication. Also history of tobacco abuse. Progress of Wound: No new concerns. Some improvement noted. Tolerated 3M wraps. Objective Data Objective Data Vital Signs: Vital Signs Temp Pulse Resp BP 97.1 F L 74 18 130/100 H 11/23/22 11:48 11/23/22 11:48 11/23/22 11:48 11/23/22 11:48 Weight: 186 lb Body Mass Index (BMI) 28.3 Charges/Coding Procedures Integumentary 111xxx-113xx: [id number] [place] subq tissue 20 sq cm/< Physical Exam Const alert, oriented x3 and no apparent distress General Appearance: cooperative, comfortable and well kempt HEENT normocephalic, head/scalp atraumatic and hearing grossly normal bilaterally Eyes General Eye: normal appearance of both eyes Neck full ROM and supple General: normal visual inspection Resp normal respiratory effort Effort and Inspection: able to speak in complete sentences Extremity General Extremity: edema Skin Wounds: wounds noted Neuro oriented x3, CN's II-XII intact bilaterally, moves all extremities and no focal motor deficits Psych mental status grossly normal, thought process normal, cooperative and affect normal Debridement Note Debridement Note Wound debrided: Left Lower Extremity Type of Debridement: Excisional debridement Anesthesia Used: 4% Lidocaine Solution Depth: Down to and including healthy tissue and in the subcutaneous layer Percentage of wound debrided: 100 Instrument Used: 5mm curette Tissue Removed: Slough and devitalized tissue Severity: Fat Layer Exposed Amount of bleeding with debridement: Mild Bleeding Controlled with: Pressure Patient tolerated procedure: Patient tolerated procedure well Post-Debridement Measurements and Additional Note: Post-Debridement Measurements/Treatment WC - Nurse 1 - General Ulcer Assessment Start: 11/16/22 10:51 Freq: Status: Active Protocol: KAMI Activity Type Activity Date Activity User E-sign Co-sign Detail Recorded Client Recorded Date Recorded By Document 11/16/22 10:51 RB [id number] 11/16/22 10:53 RB Document 11/23/22 11:48 RB [id number] 11/23/22 11:51 RB 11/16/22 11/23/22 10:51 11:48 WC - Today's Visit Information Type of service Follow-up Visit Follow-up Visit (Physician/CLEANER OPERATOR (Physician/CLEANER OPERATOR ) ) Arrival Mode Ambulatory Ambulatory Transfer Assistance None None Patient Identification Verified (Name & Yes Yes ) Patient Requires Transmission-Based No Precautions Height and Weight Body Mass Index (BMI) 28.3 28.3 BMI Classification Overweight Overweight Vital Signs Temperature (97.8 F-99.1 F) 96.8 F L 97.1 F L Temperature Source Temporal Temporal Pulse Rate (60-100) 74 74 Pulse Location Monitor Monitor Respiratory Rate (12-18) 18 18 Respiratory rate source Observation Observation Blood Pressure (90/60-120/80) 125/95 H 130/100 H Blood Pressure Mean (mm Hg) 105 110 Source Monitor Monitor Position Semi-Fowlers Semi-Fowlers Blood Pressure Location Left Arm Left Arm History Since Last Visit- (Skip if this is Patient's initial visit) Have you changed medications since your No No last visit? Any new allergies or adverse reactions No No Had a fall/change in ADL's that may No No increase risk of falls Signs or symptoms of abuse and/or No No neglect since last visit Have you been in the hospital since your No No last visit? Has dressing in place as prescribed Yes Yes Has compression in place as prescribed No Yes Has offloadiing in place as prescribed No No Experienced any changes in pain level or No No management Pain Scale: 0-10 Numeric Is Patient Pain Free? Yes No R hand -Description Sharp -Intensity 8 -Duration (hours) Acute -Pain Behavior Withdrawal from Touch -Pain Aggravating Factors Debridement -Alleviating Factors/Interventions Medication -Effectiveness of Alleviating Factor/ Moderately Intervention effective WC - Nurse 1 - General Ulcer Measurement Start: 11/16/22 10:51 Freq: Status: Active Protocol: Activity Type Activity Date Activity User E-sign Co-sign Detail Recorded Client Recorded Date Recorded By Document 11/16/22 10:51 RB [id number] 11/16/22 10:53 RB Document 11/23/22 11:48 RB [id number] 11/23/22 11:51 RB 11/16/22 11/23/22 10:51 11:48 Wound Center Nurse 1 #2- L GUTIERREZ -Combined with other wound No No -Current Size (cm) - Length 2.9 2.5 -Current Size (cm) - Width 1.7 1.6 -Current Size (cm) - Depth 0.2 0.3 -Total Square Cm 4.93 4.00 -Photo Taken Yes -Tunneling No No -Undermining/Tunneling No No -Circular Undermining No No -Exudate Amt Medium Large -Exudate Type Serosanguineous Serosanguineous -Wound Margin Distinct, Distinct, Outline Outline Attached Attached -Granulation Amt Medium (34-66%) Medium (34-66%) -Granulation Quality [place] -Slough/Fibrin Yes Yes -Necrosis Amt Medium (34-66%) Medium (34-66%) -Necrotic Tissue Type Adherent Slough Adherent Slough -Structure Exposed N/A N/A -Texture (Diamond-wound Skin Appearance) Assessed Assessed -Moisture (Diamond-wound Skin Appearance) Assessed Assessed -Color (Diamond-wound Skin Appearance) Assessed Assessed -Temperature (Diamond-wound Skin No Abnormality No Abnormality Appearance) (Pt Warm) (Pt Warm) -Tenderness on Palpation (Diamond-wound No No Skin Appearance) -Ulcer Cleansing Wound Cleanser Wound Cleanser -Foul Odor after Cleansing No No -Anesthetic Used 4% Lidocaine 4% Lidocaine Solution,5% Solution,5% Lidocaine Gel Lidocaine Gel #1- R MIDDLE FINGER -Combined with other wound No No -Current Size (cm) - Length 0.1 0.3 -Current Size (cm) - Width 0.1 0.3 -Current Size (cm) - Depth 0.1 0.1 -Total Square Cm 0.01 0.09 -Photo Taken Yes -Tunneling No No -Undermining/Tunneling No No -Circular Undermining No No -Exudate Amt Medium Medium -Exudate Type Serosanguineous Serosanguineous -Wound Margin Distinct, Distinct, Outline Outline Attached Attached -Granulation Amt Medium (34-66%) Medium (34-66%) -Granulation Quality [place] -Slough/Fibrin Yes Yes -Necrosis Amt Medium (34-66%) Medium (34-66%) -Necrotic Tissue Type Adherent Slough Adherent Slough -Structure Exposed N/A N/A -Texture (Diamond-wound Skin Appearance) Assessed Assessed -Moisture (Diamond-wound Skin Appearance) Assessed Assessed -Color (Diamond-wound Skin Appearance) Assessed Assessed -Temperature (Diamond-wound Skin No Abnormality No Abnormality Appearance) (Pt Warm) (Pt Warm) -Tenderness on Palpation (Diamond-wound No No Skin Appearance) -Ulcer Cleansing Wound Cleanser Wound Cleanser -Foul Odor after Cleansing No No -Anesthetic Used 4% Lidocaine 4% Lidocaine Solution,5% Solution,5% Lidocaine Gel Lidocaine Gel Lower Limb Edema Present Yes Left Calf (cm) 37.5 Left Ankle (cm) 26.5 WC - Nurse 2 - General Ulcer CM Notes Start: 11/16/22 10:51 Freq: Status: Active Protocol: Activity Type Activity Date Activity User E-sign Co-sign Detail Recorded Client Recorded Date Recorded By Document 11/16/22 11:13 BART [id number] 11/16/22 11:19 Document 11/23/22 12:11 [id number] 11/23/22 12:14 Edit Result 11/23/22 12:11 (1) [id number] 11/23/22 12:16 (1) #1- R MIDDLE FINGER - Time => 12:15 - Correct Patient No => Yes - Correct Side, Site, Position No => Yes - Correct Procedure No => Yes - Procedure Performed No => Yes - Type of Procedure => Debridement - Clinical Debridement => Epidermis / Dermis - Tissue Removed => Epidermis,Dermis - Post Debridement (cm) - Length => 0.3 - Post Debridement (cm) - Width => 0.3 - Post Debridement (cm) - Depth => 0.1 - Total Square (Post) (cm) => 0.09 - Area of Debridement (cm) - Length => 0.3 - Area of Debridement (cm) - Width => 0.3 - Total Square (Area) (cm) => 0.09 - Tunneling => No - Undermining/Tunneling => No - Circular Undermining => No - Ulcer Cleansing => Rinsed/Irrigated => with Saline - Foul Odor after Cleansing => No - Bioengineered Tissue => No - Bleeding Controlled with => Pressure - Treatment Response => Procedure => Tolerated Well - Offloading => No - Debridement - Open, 20sq cm => Yes 11/16/22 11/23/22 11:13 12:11 Wound Center Nurse 2 #2- L GUTIERREZ -Time 11:14 12:12 -Correct Patient Yes Yes -Correct Side, Site, Position Yes Yes -Correct Procedure Yes Yes -Procedure Performed Yes Yes -Type of Procedure Debridement Debridement -Clinical Debridement Subcutaneous Subcutaneous -Tissue Removed Subcutaneous Subcutaneous -Post Debridement (cm) - Length 2.8 2.8 -Post Debridement (cm) - Width 1.8 1.5 -Post Debridement (cm) - Depth 0.2 0.2 -Total Square (Post) (cm) 5.04 4.20 -Area of Debridement (cm) - Length 2.8 2.8 -Area of Debridement (cm) - Width 1.8 1.5 -Total Square (Area) (cm) 5.04 4.20 -Tunneling No No -Undermining/Tunneling No No -Circular Undermining No No -Wound/Ulcer Outcome Not Healed Not Healed -Ulcer Cleansing Rinsed/ Rinsed/ Irrigated with Irrigated with Saline Saline -Foul Odor after Cleansing No No -Bioengineered Tissue No No -Bleeding Controlled with Pressure Pressure -Treatment Response Procedure Procedure Tolerated Well Tolerated Well -Offloading No No -Debridement - Subq, 1st 20sq cm Yes Yes #1- R MIDDLE FINGER -Time 11:15 12:15 -Correct Patient No Yes -Correct Side, Site, Position No Yes -Correct Procedure No Yes -Procedure Performed No Yes -Type of Procedure Debridement -Clinical Debridement Epidermis / Dermis -Tissue Removed Epidermis, Dermis -Post Debridement (cm) - Length 0.3 -Post Debridement (cm) - Width 0.3 -Post Debridement (cm) - Depth 0.1 -Total Square (Post) (cm) 0.09 -Area of Debridement (cm) - Length 0.3 -Area of Debridement (cm) - Width 0.3 -Total Square (Area) (cm) 0.09 -Tunneling No No -Undermining/Tunneling No No -Circular Undermining No No -Wound/Ulcer Outcome Not Healed Not Healed -Ulcer Cleansing Rinsed/ Irrigated with Saline -Foul Odor after Cleansing No No -Bioengineered Tissue No No -Bleeding Controlled with Pressure Pressure -Treatment Response Procedure Not Procedure Tolerated Well Tolerated Well -Offloading No No -Debridement - Open, 1st 20sq cm Yes -Debridement - Subq, 1st 20sq cm No Pain Scale: 0-10 Numeric Is Patient Pain Free? Yes Yes - Nurse 3 - General Ulcer D/C NN Start: 11/16/22 10:51 Freq: Status: Active Protocol: Activity Type Activity Date Activity User E-sign Co-sign Detail Recorded Client Recorded Date Recorded By Document 11/16/22 11:38 [facility] [id number] 11/16/22 11:39 [facility] Document 11/23/22 12:20 DL [id number] 11/23/22 12:23 DL 11/16/22 11/23/22 11:38 12:20 Wound Care Center Nurse 3 #2- L GUTIERREZ -Ulcer Cleansing Rinsed/ Rinsed/ Irrigated with Irrigated with Saline Saline -Foul Odor after Cleansing No No -Primary Dressing Applied Fibracol Plus Fibracol Plus 4x4 4x4,Optilok 6. 5x10 -Other Dressing ABD -Primary Dressing Covered/Secured with Dry Gauze & Roll Gauze, Secured with Tape -Fibracol Plus 4x4 1 1 -Optilok 6.5x10 1 #1- R MIDDLE FINGER -Ulcer Cleansing Rinsed/ Rinsed/ Irrigated with Irrigated with Saline Saline -Foul Odor after Cleansing No No -Primary Dressing Applied Fibracol Plus 4x4 -Other Dressing FIBRACOL -Primary Dressing Covered/Secured with Dry Gauze, Dry Gauze & Secured with Roll Gauze, Tape Secured with Tape -Fibracol Plus 4x4 0 Left -Multi-Layered Wrap Application Multi-Layer Multi-Layer Comp - Left ($) Comp - Left ($) Pain Scale: 0-10 Numeric Is Patient Pain Free? Yes Yes - Visit Discharge Discharge Condition Stable Stable Ambulatory Status Ambulatory Ambulatory Transportation Private Auto Additional Wound Wound debrided: Right middle finger Type of Debridement: Selective debridement Anesthesia Used: 5% Lidocaine Gel Depth: Down to and including healthy tissue and in the subcutaneous layer Percentage of wound debrided: 100 Tissue Removed: Devitalized tissue Severity: Fat Layer Exposed Amount of bleeding with debridement: Mild Bleeding Controlled with: Pressure Assessment/Plan Assessment/Plan (1) Ulcer of left lower extremity with fat layer exposed: CODE(S): L97.922 - Non-pressure chronic ulcer of unspecified part of left lower leg with fat layer exposed (2) Type 2 diabetes mellitus: CODE(S): E11.9 - Type 2 diabetes mellitus without complications QUALIFIERS: Diabetes mellitus equipment operator intermodal yard insulin use: without equipment operator intermodal yard use Diabetes mellitus complication status: with other specified complication Qualified Code(s): E11.69 - Type 2 diabetes mellitus with other specified complication (3) Raynauds disease: CODE(S): I73.00 - Raynaud's syndrome without gangrene QUALIFIERS: Raynaud?s-associated gangrene presence: with gangrene Qualified Code(s): I73.01 - Raynaud's syndrome with gangrene (4) Skin ulcer of hand: CODE(S): L98.499 - Non-pressure chronic ulcer of skin of other sites with unspecified severity QUALIFIERS: Non-pressure ulcer stage: unspecified non-pressure ulcer stage Qualified Code(s): L98.499 - Non-pressure chronic ulcer of skin of other sites with unspecified severity PLAN: Plan Debridement done as documented above, procedure was better tolerated. Some improvement noted. Continue Fibrocol to both ulcers, cover with gauze. Change right middle finger daily and leave Left lower extremity for 1 week. 3M wrap for edema management, leave in place for a week. Increase protein intake, vitamin C, D and zinc also discussed to aid in wound healing, patient voiced understanding. Call with any concerns and follow-up in a week or sooner if needed. This note was generated with [employer] software. It may contain incorrect words, spelling, and punctuation that were not noted in checking the note before signing.
== END 2022-12-09 23:59 | disposition home or self-care (01) ==
LOC: WC 11:00
PROVIDERS: PCP Physician Assistant Medical; Visit Provider Internal Medicine
DX: E11.622 Type 2 diabetes mellitus with other skin ulcer (principal); I73.01 Raynaud's syndrome with gangrene; L97.912 Non-pressure chronic ulcer of unspecified part of right lower leg with fat layer exposed; L97.922 Non-pressure chronic ulcer of unspecified part of left lower leg with fat layer exposed; L98.492 Non-pressure chronic ulcer of skin of other sites with fat layer exposed; Z87.891 Personal history of nicotine dependence
CPT/HCPCS: 11042; 29581; 97597

== ENCOUNTER 2023-01-18 13:07 | Emergency (ER) | payer MEDICAID, SELFPAY ==
[2023-01-18 13:09] VITALS: BP 124/103; PULSE 74; RESP 14; TEMP 36.6; BMI 28.0
--- NOTE | 2023-01-18 14:37 | ED.RN ---
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
== END 2023-01-18 14:30 | disposition left against medical advice (07) ==
PROVIDERS: Emergency Provider Emergency Medicine; PCP Physician Assistant Medical; Visit Provider Emergency Medicine
DX: Z00.00 Encounter for general adult medical examination without abnormal findings (principal)

== ENCOUNTER → 2024-10-25 | Outpatient (CLI) | payer MEDICAID, SELFPAY ==
--- OUTSIDE RECORDS SUMMARY | 2024-10-25 12:16 | XMS RPT_ITS | CCD ---
Author Organization [facility] CliniSyvt Care Team Providers Care Manufacturing [employer] Leader Name Role Phone Rajendra Foley Unavailable Unavailable Rajendra Foley Unavailable Unavailable Me Liyahhrdad M Unavailable Unavailable Rajendra Foley B Unavailable Unavailable Unavailable Unavailable Unavailable RAJENDRA FOLEY Primary Care Unavaila TUCKER Parisi Attending Unava ilTUCKER Brito Attending Unava ilable RAJENDRA FOLEY MALOU Primary Care Unavaila ble Liyah, Fareed M Unavailable Rajendra Foley B Unavailable Yesenia Wilde Unavailable Unavailable Rashawn Carter Unavailable Arielle Lyman Unavailable Unavailable Josué Iglesias Unavailable Unavailabl e Dr. Pato Correa Attending Provider [phone] Pato Correa Other Provider [phone] Yesenia Wilde Referring Provider [phone] MOISÉS Ott Primary Care Provider Rajendra Foley PA-C Primary Care Provider Rajendra Foley PA-C B Unavailable Juno Marquez Unavailable Unavailable Dr. Juno Marquez Attending Unava ilsoniya Foley, Ms. Rajendra Brunson Primary Care Unav Dr. Josué Madrid Attending Unav ailable Alaina, Ms. Davis Malou Primary Care Unav ailable Alaina, Ms. Rajendra [facility] Primary Care Unav ailable ROBERTA, PRISCA VARGAS Attending Unavailab le [place], Ms. Rajendra [facility] Primary Care Unav ailable Michael, Dr. Blade Swain Attending Unavailabl e Door, Dr. Blade Swain Referring Unavailabl e Wai, MsMaximus Moody Attending Unava ilable [place]a, Ms. Rajendra [facility] Primary Care Unav ailable Rashawn Carter Attending Unavailable Rashawn Carter Referring Unavailable [place] Kamenik, Ms. Prasanna Alarcon Attending Unavai lable [place] Madeline, Dr. Whyte Attending Provider [phone] Madeline, Dr. Whyte Other Provider Yesenia Wilde Referring Provider MOISÉS Ott Primary Care Provider Bear GREENWOOD Kylee Unavailable Unavailable Alaina JONES, Rajendra B Primary Care Provider Alaina JONES, Rajendra B Unavailable Bear GREENWOOD, Kylee Unavailable Unavailable Katelyn Esquivel LCSW Unavailable Unavailab WIL Zarate Referring Unavailable Oleghe, Efewongbe Attending Unavailable Oleghe, Efewongbe Consulting Unavailable [place] Primary [facility] Unavailable WIL SNEED Referring Unavailable Oleghe, Efewongbe Attending Unavailable Oleghe, Efewongbe Consulting Unavailable [facility] Primary Care Unavailable [place], [place] Primary Care Unavailable Oleghe, Efewongbe Attending Unavailable Oleghe, Efewongbe Consulting Unavailable WIL SNEED Referring Unavailable Oleghe, Efewongbe Attending Unavailable Oleghe, Efewongbe Consulting Unavailable WIL SNEED Referring Unavailable [place], [place] Primary Care Unavailable Ayesha Pack Attending Unavailable [place], Rajendra Referring Unavailable [place], [place] Primary Care Unavailable Ayesha Pack Attending Unavailable [place], Rajendra Referring Unavailable [place] Primary Care Unavailable Oleghe, Efewongbe Attending Unavailable NEDRA, WIL Referring Unavailable Alaina, Rajendra Primary Care Unavailable Mary Crowe Attending Unavailable Alaina, Rajendra Primary Care Unavailable WIL SNEED Referring Unavailable Pato Correa Attending Unavailable [place], Rajendra Primary Care Unavailable Dorene Correabe Attending Unavailable WIL SNEED Referring Unavailable Alaina, Rajendra Primary Care Unavailable SAURABH CARRILLO JR. Attending Unavaila ble ALAINA, RAJENDRA Referring Unavailable MARILYN II, AUSTIN B Referring Unavailable ALAINA, RAJENDRA Primary Care Unavailable MARILYN II, AUSTIN B Attending Unavailable [place]aina PA-C, Rajendra B Primary Care Provider [place] PA-C, Rajendra B Unavailable [place] PA-C, Rajendra B Unavailable [place] PA-C, Rajendra B Unavailable [place]aina PA-C, Rajendra B Primary Care Provider ALAINA, RAJENDRA B Attending Unavailable ALAINA, RAJENDRA B Primary Care Unavailable GREYSON SCHUMACHER Attending Unavailable ALAINA, RAJENDRA B Primary Care Unavailable GREYSON SCHUMACHER Attending Unavailable ALAINA, RAJENDRA B Primary Care Unavailable ROCIO ARROYO Attending Unavailable MELISSA ESQUIVEL Referring Unavailable ALAINA, RAJENDRA B Primary Care Unavailable GREYSON SCHUMACHER Attending Unavailable ALAINA, RAJENDRA B Primary Care Unavailable GREYSON SCHUMACHER Attending Unavailable ALAINA, RAJENDRA B Primary Care Unavailable ALAINA, RAJENDRA B Primary Care Unavailable YESENIA WILDE Attending Unavailable ALAINA, RAJENDRA B Referring Unavailable ALAINA, RAJENDRA B Primary Care Unavailable ALAINA, RAJENDRA B Referring Unavailable ALAINA, RAJENDRA B Primary Care Unavailable ALAINA, RAJENDRA B Referring Unavailable LAAINA, RAJENDRA B Primary Care Unavailable GREYSON SCHUMACHER Referring Unavailable ALAINA, RAJENDRA B Primary Care Unavailable GREYSON SCHUMACHER Referring Unavailable ALAINA, RAJENDRA B Primary Care Unavailable ANTONIO CARPENTER Admitting Unava ilable ANTONIO CARPENTER Attending Unava ilable ALAINA, RAJENDRA B Primary Care Unavailable ANTONIO CARPENTER Referring Unava ilable RAJENDRA FOLEY Primary Care Unavailable GREYSON SCHUMACHER Referring Unavailable RAJENDRA FOLEY Primary Care Unavailable GREYSON SCHUMACHER Referring Unavailable RAJENDRA FOLEY Primary Care Unavailable GREYSON SCHUMACHER Referring Unavailable RAJENDRA FOLEY Primary Care Unavailable Allergies Allergy Classification Reported Allergen(s) Allergy Type Date of Onset Reaction(s) Facility amLODIPine (3 sources) amLODIPine; Translations: [amLODIPine Besylate TABS] Drug Allergy Edema [facility] Work Phone: (20 sources) amLODIPine; Translations: [amLODIPine Besylate TABS] Drug Allergy 07-20-2022 [facility] (3 sources) amLODIPine; Translations: [AMLODIPINE] Drug Allergy 07-20-2022 [facility] 3 Repository Medications Current Medications Medication Drug Class(es) Dates Sig (Normalized) Sig (Original) acetaminophen 325 mg oral tablet (20 sources) Start: 09-29-2024 take 1 tablet by mouth every six hours as needed Start: 06-23-2024 take 1 tablet by genna th every six hours for headache acetaminophen (Tylenol) 500 mg tablet Indications: Acute intractable headache, unspecified headache type , Pulmonary hypertension (Multi) take 1 tablet by mouth every 6 hours if needed for headache 30 tablet 3 06/23/2024 Active Start: 04-29-2024 take 1 tablet by genna th every six hours for headache acetaminophen (Tylenol) 500 mg tablet Indications: Acute intractable headache, unspecified headache type , Pulmonary hypertension (Multi) Take 1 tablet (500 mg) by mouth every 6 hours if needed for headaches. 30 tablet 04/29/2024 Active Start: 04-10-2024 take 2 tablets by mo uth every six hours for headache acetaminophen (Tylenol) 500 mg tablet Indications: Acute intractable headache, unspecified headache type , Pulmonary hypertension (Multi) take 2 tablets by mouth every 6 hours if needed for headache for up to 10 days 30 tablet 04/10/2024 Active Start: 06-23-2023 End: 06-23-2023 Start: 06-20-2023 End: 06-20-2023 Start: 06-09-2023 End: 06-09-2023 Start: 06-05-2023 take 1 tablet by genna th every four hours as needed acetaminophen (Tylenol) tablet 650 mg Start: 04-19-2023 End: 04-19-2023 acetaminophen (Tylenol) tabl et 975 mg Start: 04-07-2023 take 1 tablet by genna th every six hours as needed acetaminophen (Tylenol) tablet 650 mg take 2 tablets by mo uth every six hours as needed acetaminophen (Tylenol) 500 mg tablet Take 2 tablets (1,000 mg) by mouth every 6 hours if needed for mild pain (1 - 3). Active take 2 tablets by mo uth every six hours as needed acetaminophen (Tylenol) 325 mg tablet Take 2 tablets (650 mg) by mouth every 6 hours if needed for mild pain (1 - 3). 0 Active acetaminophen 325 mg / HYDROcodone bitartrate 5 mg oral tablet (1 source) Opioid Agonist Start: 12-26-2022 End: 04-05-2023 take 1 tablet by mouth every six hours for pain HYDROcodone-acetaminophen ([place]) 5-325 mg tablet Indications: Raynaud's disease without gangrene Take 1 tablet by mouth every 6 hours if needed for severe pain (7 - 10). 12 tablet 0 12/26/2022 04/05/2023 Discontinued (Therapy completed) aluminum hydroxide 40 mg/ml / magnesium hydroxide 40 mg/ml / simethicone 4 mg/ml oral suspension (1 source) Start: 06-16-2023 ambrisentan 5 mg oral tablet (6 sources) Endothelin Receptor Antagonist Start: 06-12-2024 take 1 tablet by mouth once daily ambrisentan (Letairis) 5 mg tablet Take 1 tablet (5 mg) by mouth once daily. 06/12/2024 Active amoxicillin 875 mg / clavulanate 125 mg oral tablet (8 sources) Penicillin-class Antibacterial Start: 07-04-2024 End: 07-14-2024 take 1 tablet by mouth twice daily amoxicillin-clavulanate (Augmentin) 875-125 mg tablet Indications: Dental infection Take 1 tablet by mouth 2 times a day for 10 days. Take with a meal. 20 tablet 07/04/2024 07/14/2024 Active Start: 06-03-2023 End: 06-26-2023 Start: 06-03-2023 End: 06-10-2023 take 1 tablet by mouth every twelve hours amoxicillin-pot clavulanate (Augmentin) 875-125 mg tablet Indications: Cellulitis of left leg Take 1 tablet by mouth every 12 hours for 7 days. 14 tablet 0 06/03/2023 06/10/2023 Active Start: 06-03-2023 End: 06-03-2023 amoxicillin-pot clavulanate (Augmentin) 875-125 mg per tablet 1 tablet Start: 04-05-2023 End: 04-15-2023 take 1 tablet by mouth twice daily amoxicillin-pot clavulanate (Augmentin) 875-125 mg tablet Indications: Non-healing wound of upper extremity, right, subsequent encounter Take 1 tablet (875 mg) by mouth 2 times a day for 10 days. 20 tablet 0 04/05/2023 04/09/2023 Discontinued (Stop Taking at Discharge) busPIRone hydrochloride 5 mg oral tablet (20 sources) Start: 06-24-2023 take 5 mg by mouth e very twenty-four hours as needed Start: 10-26-2021 End: 06-05-2023 take 5 mg by mouth three times daily as needed for anxiety 5 mg, oral, 3 times daily PRN, anxiety, Starting on Sun06/05/23 at 0341 busPIRone Quanti ty: 0 Refills: 0 Ordered: 22-Sep-2022 Rebeca Lim Generic Substitution Allowed cholecalciferol 0.025 mg oral tablet (11 sources) Vitamin D Start: 04-06-2023 End: 06-05-2023 take 1000 [IU] by mouth once daily 1,000 Units, oral, Daily, First dose on Sun04/06/23 at 1345 diclofenac sodium 0.01 mg/mg topical gel (1 source) Nonsteroidal Anti-inflammatory Drug Start: 06-19-2023 digoxin 0.125 mg oral tablet (18 sources) Cardiac Glycoside Start: 09-27-2023 End: 04-21-2024 take 1 tablet by mouth once daily digoxin (Lanoxin) 125 MCG tablet Indications: Pulmonary hypertension (Multi) Take 1 tablet (125 mcg) by mouth once daily. 90 tablet 11 04/21/2024 Active Start: 06-27-2023 take 1 tablet by genna once daily digoxin (Lanoxin) 125 MCG tablet Indications: Pulmonary hypertension (Multi) Take 1 tablet (125 mcg) by mouth once daily. 60 tablet 06/27/2023 Active Start: 06-27-2023 Start: 06-11-2023 0.4 ml enoxaparin sodium 100 mg/ml prefilled syringe (2 sources) Low Molecular Weight Heparin Start: 06-20-2023 Start: 04-06-2023 inject 40 mg by subc utaneous injection every twenty-four hours 40 mg, subcutaneous, Every 24 hours, First dose on Sun04/06/23 at 1600 Indications: venous thrombosis etodolac 400 mg oral tablet (3 sources) Nonsteroidal Anti-inflammatory Drug Start: 06-03-2023 End: 06-26-2023 fluticasone propionate 0.05 mg/actuat metered dose nasal spray (7 sources) Corticosteroid Start: 06-23-2024 End: 12-20-2024 take 2 spray(s) nasal route once daily as needed for rhinitis fluticasone (Flonase) 50 mcg/actuation nasal spray Indications: Nasal congestion , Long-term use of high-risk medication , Pulmonary hypertension (Multi) Administer 2 sprays into each nostril once daily as needed for rhinitis. Shake gently. Before first use, prime pump. After use, clean tip and replace cap. 16 g 6 06/23/2024 12/20/2024 Active glucagon (rdna) 1 mg injection (2 sources) Antihypoglycemic Agent Start: 06-07-2023 50 ml glucose 500 mg/ml prefilled syringe (2 sources) Start: 06-07-2023 ibuprofen 200 mg oral tablet (3 sources) Nonsteroidal Anti-inflammatory Drug Start: 05-08-2024 End: 06-07-2024 take 3 tablets by mouth every six hours ibuprofen 200 mg tablet Indications: SOB (shortness of breath) , Pulmonary hypertension (Multi) , Long-term use of high-risk medication Take 3 tablets (600 mg) by mouth every 6 hours. 360 tablet 05/08/2024 06/07/2024 Active Start: 06-03-2023 End: 06-03-2023 ibuprofen tablet 400 mg 1 ml ketorolac tromethamine 30 mg/ml injection (6 sources) Nonsteroidal Anti-inflammatory Drug, Cyclooxygenase Inhibitor Start: 06-05-2023 End: 06-10-2023 30 mg, intravenous, Every 6 hours scheduled, First dose on Sun06/05/23 at 0600, For 5 days Start: 10-01-2022 End: 04-06-2023 take 1 tablet by mouth four times daily ketorolac (Toradol) 10 mg tablet Take 1 tablet (10 mg) by mouth 4 times a day. 0 10/01/2022 04/06/2023 Discontinued (Med List Cleanup) Comment on above: It is very important that you take or use this exactly as directed. Do not skip doses or discontinue unless directed by your doctor.May cause drowsiness or dizziness.Obtain medical advice before taking any non-prescription drugs as some may affect the action of this medication.Take with food or milk. labetalol hydrochloride 5 mg/ml injectable solution (1 source) beta-Adrenergic Matilda Start: 04-19-19 24 labetaloL (Normodyne,Tranda te) injection 5 mg ammonium lactate 120 mg/ml topical cream (6 sources) Start: 04-06-19 25 ammonium lactate (Amlactin) 12 % cream Apply topically if needed. 04/06/2024 Active lisinopril 2.5 mg oral tablet (20 sources) Angiotensin Converting Enzyme Inhibitor Start: 10-13-19 End: 06-05-19 24 take 2.5 mg by mouth once daily 2.5 mg, oral, Daily, First dose on Sun04/06/23 at 1345 Start: 05-25-2022 End: 11-23-2022 take 1 tablet by mouth once daily lisinopril 5 mg tablet Indications: Essential hypertension Take 1 tablet (5 mg) by mouth once daily. 30 tablet 5 05/25/2022 11/23/2022 Discontinued (Therapy completed) Start: 12-25-2017 take 0.5 tablet by m outh once daily Lisinopril 5 MG Oral Tablet TAKE 0.5 TABLET Daily Quantity: 15 Refills: 11 Ordered: 20-Apr-2021 Rajendra Foley PA-C Start : 25-Dec-2017 Active Start: 12-25-2017 take 1 tablet by genna th once daily Lisinopril 5 MG Oral Tablet TAKE 1 TABLET DAILY DIRECTED. Quantity: 30 Refills: 5 Ordered: 07-Jun-2020 Rajendra Foley PA-C Start : 25-Dec-[address] of the 10 mg 1/2 tab dose Start: 12-25-2017 take 0.5 tablet by m out once daily Lisinopril 10 MG Oral Tablet TAKE 0.5 TABLET Daily Quantity: 15 Refills: 11 Rajendra Foley PA-C Start : 25-Dec-2017 Active loperamide hydrochloride 2 mg oral capsule (15 sources) Opioid Agonist Start: 04-16-2024 take 1 capsule by mouth four times daily as needed for diarrhea loperamide (Imodium) 2 mg capsule Indications: Diarrhea due to drug Take 1 capsule (2 mg) by mouth 4 times a day as needed for diarrhea. 30 capsule 11 04/16/2024 Active Start: 02-19-2024 End: 05-13-2024 take 0.5 tablet by mouth once daily loperamide (Imodium A-D) 2 mg tablet Indications: Diarrhea due to drug Take 0.5 tablets (1 mg) by mouth once daily. Or as directed. 30 tablet 11 02/19/2024 05/13/2024 Discontinued (Med List Cleanup) Start: 06-25-2023 End: 06-25-2023 magnesium hydroxide 240 mg/ml oral suspension (1 source) Start: 06-05-2023 take 10 mL by mouth every twenty-four hours as needed 10 mL, oral, Daily PRN, constipation, first line, Starting on Sun06/05/23 at 0341 Contact provider if no bowel movement in past 48 hours. Concentrated product. Follow administration with 8 ounces of water. mupirocin 0.02 mg/mg topical ointment (6 sources) RNA Synthetase Inhibitor Antibacterial Start: 10-12-2022 Mupirocin Active 1 APPLIC TOPICAL DAILY October 11, 2022 11:00pm LLE WOUND, R MIDDLE FINGER WOUND Start: 09-22-2022 End: 10-01-2022 mupirocin 2% topical ointmen t ; Apply topically to affected area 3 times a day x 10 days Quantity: 1 Refills: 0 Ordered: 22-Sep-2022 Yesenia Wilde Start: 22-Sep-2022 End: 01-Oct-2022 Generic Substitution Allowed Comments: For external use only. Comment on above: For external use onl y. 24 hr nicotine 0.875 mg/hr transdermal system (1 source) Cholinergic Nicotinic Agonist Start: 06-05-19 apply 1 dose transdermal route once daily 1 patch, transdermal, Administer over 24 Hours, Daily, First dose on Sun06/05/23 at 0900 2 ml ondansetron 2 mg/ml injection (7 sources) Serotonin-3 Receptor Antagonist Start: 06-07-19 take 4 mg intravenously every six hours as needed Start: 06-07-2023 End: 06-07-2023 Start: 06-04-2023 End: 06-04-2023 ondansetron (Zofran) injecti on 4 mg Start: 04-26-2023 End: 04-26-2023 ondansetron (Zofran) injecti on 4 mg Start: 04-19-2023 ondansetron (Z ofran) injection 4 mg Start: 04-06-2023 End: 04-06-2023 take 4 mg intravenously every four hours as needed ondansetron (Zofran) injection 4 mg ondansetron ODT (Zofran-ODT) disintegrating tablet 4 mg (1 source) Start: 06-05-2023 take 1 tablet by mouth every eight hours as needed ondansetron ODT (Zofran-ODT) disintegrating tablet 4 mg pantoprazole 40 mg delayed release oral tablet (13 sources) Proton Pump Inhibitor Start: 06-11-2023 take 1 tablet by mouth once daily before mealtime pantoprazole (ProtoNix) 40 mg EC tablet Indications: Constipation, unspecified constipation type Take 1 tablet (40 mg) by mouth once daily in the morning. Take before meals. Do not crush, chew, or split. 60 tablet 06/26/2023 11:38 AM EDT 06/26/2023 Active Start: 04-07-2023 End: 06-05-2023 take 20 mg by mouth once daily before breakfast 20 mg, oral, Daily before breakfast, First dose on Sun06/05/23 at 0700 Do not crush, chew, or split. promethazine (Phenergan) 6.25 mg in sodium chloride 0.9% 50 mL IV (1 source) Start: 04-19-2023 promethazine (Phenergan) 6.25 mg in sodium chloride 0.9% 50 mL IV spironolactone 25 mg oral tablet (9 sources) Aldosterone Antagonist Start: 05-12-2024 End: 05-12-2025 take 1 tablet by mouth once daily spironolactone (Aldactone) 25 mg tablet Indications: Pulmonary hypertension (Multi) , Right ventricular dysfunction , Severe tricuspid regurgitation by prior echocardiogram Take 1 tablet (25 mg) by mouth once daily. 30 tablet 11 05/12/2024 05/12/2025 Active tadalafil 20 mg oral tablet (17 sources) Phosphodiesterase 5 Inhibitor Start: 02-06-2024 End: 02-17-2025 take 2 tablets by mouth once daily tadalafil (Cialis) 20 mg tablet Indications: Pulmonary hypertension (Multi) Take 2 tablets (40 mg) by mouth once daily. 60 tablet 11 02/06/2024 01/31/2025 Active traMADol hydrochloride 50 mg oral tablet (1 source) Opioid Agonist Start: 06-05-2023 take 1 tablet by mouth every six hours as needed 50 mg, oral, Every 6 hours PRN, pain moderate (4-6), second line, Starting on Sun06/05/23 at 0341 Max of 300 mg daily for patients > 75 years of age. If ordered PRN for pain, nurse is permitted to administer this medication for higher pain scores based on patient preference? Yes treprostinil 10 mg/mL solution 10 mg/mL, empty bag/syringe unknown 1 each (16 sources) vancomycin (Vancocin) 750 mg in dextrose 5 % in water (D5W) 250 mL IV (2 sources) Start: 06-06-2023 vancomycin (Vancocin) 750 mg in dextrose 5 % in water (D5W) 250 mL IV Start: 06-05-2023 End: 06-06-2023 take 750 mg intravenously every twelve hours vancomycin (Vancocin) 750 mg in dextrose 5 % in water (D5W) 250 mL IV vancomycin (Vancocin) pharma cy to dose - pharmacy monitoring (1 source) Start: 06-05-2023 miscellaneous, Daily PRN, other, Vancomycin Placeholder, Starting on Sun06/05/23 at 0341 This is a placeholder. Pharmacy will enter orders when vancomycin needs to be administered. (19 sources) Start: 06-24-2023 Start: 06-23-2023 take 975 mg by mouth every six hours [Order 1 Start] Name: acetaminophen (Tylenol) tablet 975 mg Signed Summary: 975 mg, oral, Every 6 hours, First dose (after last modification) on 06/23/23 at 0715, If ordered PRN for pain, nurse is permitted to administer this medication for higher pain scores based on patient preference? Yes [Order 1 End] [Order 2 Start] Name: acetaminophen (Tylenol) oral liquid 650 mg Signed Summary: 650 mg, nasogastric tube, Every 6 hours, First dose (after last modification) on 06/23/23 at 0715, Give oral liquid per feeding tube if present. [Order 2 End] [Order 3 Start] Name: acetaminophen (Tylenol) suppository 650 mg Signed Summary: 650 mg, rectal, Every 6 hours, First dose (after last modification) on 06/23/23 at 0715, Give rectally if unable to administer by mouth or feeding tube., If ordered PRN for pain, nurse is permitted to administer this medication for higher pain scores based on patient preference? Yes [Order 3 End] Start: 06-22-2023 End: 06-24-2023 Start: 06-21-2023 End: 06-22-2023 Start: 06-20-2023 End: 06-21-2023 Start: 06-19-2023 End: 06-20-2023 Start: 06-16-2023 End: 06-19-2023 Start: 06-15-2023 End: 06-16-2023 Start: 06-13-2023 End: 06-15-2023 Start: 06-12-2023 End: 06-12-2023 Start: 06-11-2023 End: 06-12-2023 Start: 06-10-2023 End: 06-11-2023 Start: 06-10-2023 End: 06-10-2023 Start: 06-09-2023 End: 06-10-2023 Start: 06-08-2023 End: 06-09-2023 Start: 06-08-2023 End: 06-08-2023 Start: 06-07-2023 End: 06-08-2023 Start: 06-07-2023 End: 06-23-2023 take 650 mg by mouth every four hours as needed Start: 06-07-2023 End: 06-07-2023 take 650 mg by mouth every four hours as needed Completed/Discontinued Medications Medication Drug Class(es) Dates Sig (Normalized) Sig (Original) acetaminophen 325 mg / oxyCODONE hydrochloride 5 mg oral tablet (1 source) Opioid Agonist Start: 04-06-2023 End: 04-07-2023 take 1 tablet by mouth every six hours as needed 1 tablet, oral, Every 6 hours PRN, pain severe (7-10), first line, Starting on Sun04/06/23 at 1336 If ordered PRN for pain, nurse is permitted to administer this medication for higher pain scores based on patient preference? Yes ascorbic acid 500 mg oral tablet (10 sources) Vitamin C End: 06-05-2023 take 1 tablet by mouth once daily ascorbic acid (Vitamin C) 500 mg tablet Take 1 tablet (500 mg) by mouth once daily. 0 06/05/2023 Discontinued (Therapy completed) bacitracin zinc 0.5 unt/mg topical ointment (1 source) Start: 06-03-2023 End: 06-03-2023 bacitracin ointment 1 Application bisacodyl 10 mg rectal suppository (4 sources) Stimulant Laxative Start: 06-26-2023 End: 07-04-2023 take 10 mg rectal route every twenty-four hours as needed for constipation and constipation bisacodyl (Dulcolax) 10 mg suppository Indications: Constipation, unspecified constipation type Insert 1 suppository (10 mg) into the rectum once daily as needed for constipation. 12 suppository 06/26/2023 07/04/2023 Discontinued (Therapy completed) Start: 06-24-2023 End: 06-24-2023 take 10 mg rectal route every twenty-four hours as nee ded caffeine 200 mg oral tablet (5 sources) Central Nervous System Stimulant, Methylxanthine Start: 06-22-2023 End: 07-26-2023 take 1 tablet by mouth every six hours for headache caffeine 200 mg Indications: Pulmonary hypertension (Multi) Take 1 tablet (200 mg) by mouth every 6 hours if needed (For headache). 60 tablet 06/26/2023 07/04/2023 Discontinued (Therapy completed) calcium chloride 0.0014 meq/ml / potassium chloride 0.004 meq/ml / sodium chloride 0.103 meq/ml / sodium lactate 0.028 meq/ml injectable solution (5 sources) Start: 06-06-2023 End: 06-07-2023 Start: 04-19-2023 lactated Ringe r's infusion cefadroxil 500 mg oral capsule (4 sources) Cephalosporin Antibacterial Start: 09-22-2022 End: 10-01-2022 cefadroxil 500 mg oral capsule ; 2 cap(s) orally to start, then 1 capsule 2 times a day x 10 days. Take with a meal. Quantity: 21 Refills: 0 Ordered: 22-Sep-2022 Yesenia Wilde Start: 22-Sep-2022 End: 01-Oct-2022 Generic Substitution Allowed Comments: Finish all this medication unless otherwise directed by prescriber. Start: 09-22-2022 End: 11-23-2022 take 1 capsule by mouth twice daily cefadroxil (Duricef) 500 mg capsule Take 1 capsule (500 mg) by mouth 2 times a day. 0 09/22/2022 11/23/2022 Discontinued (Therapy completed) Comment on above: Finish all this medi cation unless otherwise directed by prescriber. ceFAZolin 1000 mg injection (1 source) Cephalosporin Antibacterial Start: End: take 1 g intravenously every eight hours ceFAZolin in dextrose (iso-os) (Ancef) IVPB 1 g cephalexin 500 mg oral tablet (2 sources) Cephalosporin Antibacterial Start: End: take 1 tablet by mouth twice daily Cephalexin 500 MG Oral Tablet Take 1 tablet twice daily Quantity: 14 Refills: 0 Ordered: 17-Jun-2020 Radha Tao MD Start : 17-Jun-2020 End : 28-Sep-2020 Complete colchicine 0.6 mg oral tablet (2 sources) Start: End: take 0.6 mg by mouth every twelve hours 250 ml DOBUTamine 4 mg/ml injection (1 source) beta-Adrenergic Agonist Start: End: docusate sodium 100 mg oral capsule (1 source) Start: End: docusate sodium 50 mg / sennosides, long-term 8.6 mg oral tablet (4 sources) Start: End: take 1 tablet by mouth twice daily sennosides-docusate sodium (Diamond-Colace) 8.6-50 mg tablet Indications: Constipation, unspecified constipation type Take 1 tablet by mouth 2 times a day. 60 tablet 06/26/2023 07/04/2023 Discontinued (Therapy completed) Start: 06-26-2023 Start: 06-24-2023 End: 06-25-2023 doxycycline hyclate 100 mg oral tablet (3 sources) Tetracycline-class Drug Start: 10-01-2022 End: 11-23-2022 take 1 tablet by mouth twice daily doxycycline hyclate 100 mg oral tablet ; 1 tab(s) orally 2 times a day Quantity: 14 Refills: 0 Ordered: 01-Oct-2022 Josué Iglesias Start: 01-Oct-2022 End: 07-Oct-2022 Generic Substitution Allowed Comments: Avoid prolonged or excessive exposure to direct and/or artificial sunlight while taking this medication.Do not take this drug if you are .Finish all this medication unless otherwise directed by prescriber.Medication should be taken with plenty of water. Comment on above: Avoid prolonged or excessive exposure to direct and/or artificial sunlight while taking this medication.Do not take this drug if you are .Finish all this medication unless otherwise directed by prescriber.Medication should be taken with plenty of water. Drug or medicament (substance) (3 sources) Start: 06-08-2023 End: 06-09-2023 Start: 06-07-2023 Start: 06-07-2023 End: 06-07-2023 ergocalciferol, vitamin D2, (VITAMIN D2 ORAL) (2 sources) End: 04-06-2023 ergocalciferol, vitamin D2, (VITAMIN D2 ORAL) Take by mouth. 0 04/06/2023 Discontinued (Entered in Error) ergocalciferol, vitamin D2, (VITAMIN D2 ORAL) Take by mouth. 0 Active famotidine 20 mg oral tablet (1 source) Histamine-2 Receptor Antagonist take 1 tablet by mouth twice daily as needed Famotidine 20 MG Oral Tablet TAKE 1 TABLET Twice daily PRN DYSPEPSIA Quantity: 60 Refills: 5 Active 1 ml fentaNYL 0.05 mg/ml injection (1 source) Opioid Agonist Start: 06-14-2023 End: 06-14-2023 4 ml furosemide 10 mg/ml injection (2 sources) Loop Diuretic Start: 06-18-2023 End: 06-18-2023 Start: 06-17-2023 End: 06-17-2023 gabapentin 300 mg oral capsule (3 sources) Anti-epileptic Agent Start: 06-26-2023 End: 07-04-2023 take 1 capsule by mouth every eight hours for pain gabapentin (Neurontin) 300 mg capsule Indications: Non-pressure chronic ulcer of left lower leg with fat layer exposed (Multi) Take 1 capsule (300 mg) by mouth every 8 hours if needed (For foot pain). 60 capsule 06/26/2023 07/04/2023 Discontinued (Therapy completed) Start: 06-20-2023 take 300 mg by mouth every eig ht hours as needed 1 ml heparin sodium, porcine 5000 unt/ml injection (2 sources) Unfractionated Heparin, Anti-coagulant Start: 06-06-2023 End: 06-15-2023 inject 5000 [IU] by subcutaneous injection every eight hours Start: 06-06-2023 End: 06-06-2023 1 ml HYDROmorphone hydrochlo ride 1 mg/ml cartridge (3 sources) Opioid Agonist Start: 06-24-2023 End: 06-24-2023 Start: 06-07-2023 End: 06-07-2023 Start: 04-06-2023 End: 04-06-2023 HYDROmorphone (Dilaudid) inj ection 0.5 mg hydrOXYzine hydrochloride 10 mg oral tablet (10 sources) Antihistamine Start: 12-25-2018 take 1 tablet by mouth twice daily as needed for anxiety hydrOXYzine HCl - 10 MG Oral Tablet TAKE 1 TABLET Twice daily PRN anxiety Quantity: 60 Refills: 1 Ordered: 20-Apr-2021 Rajendra Foley PA-C Start : 25-Dec-2018 Active iohexol (OMNIPaque) 350 mg iodine/mL solution 70 mL (1 source) Start: 04-06-2023 End: 04-06-2023 iohexol (OMNIPaque) 350 mg iodine/mL solution 70 mL iohexol (OMNIPaque) 350 mg iodine/mL solution 80 mL (1 source) Start: 06-04-2023 End: 06-04-2023 iohexol (OMNIPaque) 350 mg iodine/mL solution 80 mL lactulose 667 mg/ml oral solution (1 source) Osmotic Laxative Start: 06-25-2023 End: 06-25-2023 take 20 g by mouth every two hours loratadine 10 mg oral tablet (20 sources) Start: 09-24-2019 End: 06-05-2023 take 1 tablet by mouth every twenty-four hours as needed loratadine (Claritin) 10 mg tablet Take 1 tablet (10 mg) by mouth once daily as needed for allergies. 0 09/24/2019 06/05/2023 Discontinued (Therapy completed) loratadine Quant ity: 0 Refills: 0 Ordered: 22-Sep-2022 Rebeca Lim Generic Substitution Allowed magnesium oxide 400 mg oral tablet (1 source) Start: 06-18-2023 End: 06-19-2023 50 ml magnesium sulfate 40 m g/ml injection (3 sources) Start: 06-19-2023 End: 06-19-2023 Start: 06-14-2023 End: 06-15-2023 meclizine hydrochloride 25 mg oral tablet (2 sources) Antiemetic Start: 06-07-2020 End: 09-28-2020 take 1 tablet by mouth three times daily as needed Meclizine HCl - 25 MG Oral Tablet TAKE 1 TABLET 3 TIMES DAILY NEEDED. Quantity: 30 Refills: 0 Ordered: 07-Jun-2020 Rajendra Foley PA-C Start : 07-Jun-2020 End : 28-Sep-2020 Complete medroxyPROGESTERone acetate 10 mg oral tablet (14 sources) Progestin Start: 11-29-2021 take 1 tablet by mouth once daily medroxyPROGESTERone Acetate 10 MG Oral Tablet TAKE 1 TABLET DAILY DIRECTED. Quantity: 10 Refills: 0 Ordered: 19-Dec-2021 Blade Kat DO Start : 29-Nov-2021 Active Start: 11-29-2021 take 1 tablet by genna th once daily medroxyPROGESTERone Acetate 5 MG Oral Tablet TAKE 1 TABLET DAILY. Quantity: 10 Refills: 0 Ordered: 29-Nov-2021 Blade Rodriguez DO Start : 29-Nov-2021 Active Start: 12-27-2020 Depo-Provera 1 50 MG/ML Intramuscular Suspension 0 SUSP IM Quantity: 0 Refills: 0 Ordered: 27-Dec-2020 DO Start : 27-Dec-2020 Complete Start: 09-29-2020 Depo-Provera 1 50 MG/ML Intramuscular Suspension Prefilled Syringe 0 JACK IM Quantity: 0 Refills: 0 Ordered: 29-Sep-2020 DO Start : 29-Sep-2020 Complete MedroxyPROGESTER one Acetate 150 MG/ML Intramuscular Suspension INJECT EVERY 12 WEEKS DIRECTED Quantity: 1 Refills: 3 Ordered: 21-Mar-2021 Blade Rodriguez DO Active DR RODRIGUEZ MANAGES Depo-Provera 150 MG/ML Intramuscular Suspension Quantity: 0 Refills: 0 Ordered: 25-Jun-[address] RODRIGUEZ MANAGES Depo-Provera 150 MG/ML Intramuscular Suspension Refills: 0 Active MedroxyPROGESTERone Acetate 150 MG/ML Intramuscular Suspension (3 sources) MedroxyPROGESTER one Acetate 150 MG/ML Intramuscular Suspension INJECT EVERY 12 WEEKS DIRECTED Quantity: 1 Refills: 3 Ordered: 21-Mar-2021 Blade Rodriguez DO Active DR RODRIGUEZ MANAGES melatonin 3 mg oral tablet (3 sources) Start: 06-26-2023 End: 07-04-2023 take 2 tablets by mouth once daily melatonin 3 mg tablet Indications: History of difficulty sleeping Take 2 tablets (6 mg) by mouth once daily. 30 tablet 06/26/2023 07/04/2023 Discontinued (Therapy completed) Start: 06-11-2023 5 ml midazolam 1 mg/ml injection (1 source) Benzodiazepine Start: 06-14-2023 End: 06-14-2023 1 ml morphine sulfate 4 mg/ml prefilled syringe (5 sources) Opioid Agonist Start: 06-04-2023 End: 06-04-2023 morphine injection 4 mg Start: 04-26-2023 End: 04-26-2023 morphine injection 4 mg Start: 04-19-2023 morphine injec tion 4 mg Start: 04-19-2023 morphine injec tion 2 mg Start: 04-06-2023 End: 04-06-2023 morphine injection 4 mg nitroglycerin 0.02 mg/mg topical ointment (7 sources) Nitrate Vasodilator Start: 04-11-2023 End: 04-19-2023 nitroglycerin (Nitro-Bid) 2 % ointment Indications: Raynaud's disease without gangrene Place 0.5 inches on the skin 2 times a day as needed for chest pain. Do not use for 12 hours through the night 2 g 0 04/11/2023 04/19/2023 Discontinued (Stop Taking at Discharge) Start: 12-26-2022 End: 04-11-2023 nitroglycerin (Nitro-Bid) 2 % ointment Indications: Raynaud's disease without gangrene Place 0.5 inches on the skin every 6 hours during the day for 30 doses. 2 g 0 12/26/2022 04/11/2023 Discontinued (Reorder) omeprazole 20 mg delayed release oral capsule (20 sources) Proton Pump Inhibitor End: 06-05-2023 take 1 capsule by mouth every twenty-four hours as needed omeprazole (PriLOSEC) [address] capsule Take 1 capsule (20 mg) by mouth once daily as needed (acid reflex). 0 06/05/2023 Discontinued (Therapy completed) oxyCODONE hydrochloride 5 mg oral tablet (12 sources) Opioid Agonist Start: 06-18-2023 End: 06-19-2023 Start: 06-15-2023 End: 06-15-2023 Start: 06-09-2023 End: 06-09-2023 Start: 06-05-2023 End: 06-15-2023 take 5 mg by mouth every six hours as needed Start: 04-07-2023 End: 04-19-2023 take 1 tablet by mouth every six hours for pain oxyCODONE (Roxicodone) 5 mg immediate release tablet Indications: Cellulitis of left lower extremity Take 1 tablet (5 mg) by mouth every 6 hours if needed for severe pain (7 - 10) for up to 3 days. 6 tablet 0 04/09/2023 04/19/2023 perflutren lipid microspheres (Definity) injection 1.5 mL of dilution (1 source) Start: 06-06-2023 End: 06-06-2023 perflutren lipid microspheres (Definity) injection 1.5 mL of dilution perflutren lipid microspheres (Definity) injection 2 mL of dilution (1 source) Start: 04-09-2023 End: 04-09-2023 perflutren lipid microspheres (Definity) injection 2 mL of dilution piperacillin 3000 mg / tazobactam 375 mg injection (5 sources) Penicillin-clas s Antibacterial, beta Lactamase Inhibitor Start: 06-06-2023 End: 06-09-2023 take 3.375 g intravenously every six hours Start: 06-04-2023 End: 06-04-2023 upctvazlqneo-xniuvirdcs-xucl naresh (Zosyn) IV 4.5 g Start: 04-26-2023 End: 04-26-2023 iekfbhluazrx-szdmqempat-gwjk naresh (Zosyn) IV 3.375 g Start: 04-06-2023 End: 04-06-2023 take 3.375 g intravenously every six hours xgxjwymathyd-owvourngfs-jhjjnyuj (Zosyn) IV 3.375 g Start: 04-06-2023 End: 04-06-2023 heaalqcqysyt-binisybzcx-msjp naresh (Zosyn) IV 4.5 g polyethylene glycol 3350 [id number] mg powder for oral solution (10 sources) Osmotic Laxative Start: 06-26-2023 End: 07-04-2023 polyethylene glycol (Glycolax, Miralax) 17 gram packet Indications: Constipation, unspecified constipation type Take 17 g by mouth once daily. 60 packet 06/26/2023 07/04/2023 Discontinued (Therapy completed) Start: 06-24-2023 End: 06-24-2023 Start: 04-06-2023 End: 06-05-2023 17 g, oral, Daily, First dos e on Sun06/05/23 at 0900 Vitamin Plus Low Iron 27-1 MG Oral Tablet (5 sources) Start: 11-29-2021 take 1 tablet by mouth once daily Vitamin Plus Low Iron 27-1 MG Oral Tablet TAKE 1 TABLET DAILY. Quantity: 30 Refills: 11 Ordered: 29-Nov-2021 [id number]-ItgmeBlade Carlson DO Start : 29-Nov-2021 Active Start: 11-29-2021 take 1 tablet by genna th once daily Vitamin Plus Low Iron 27-1 MG Oral Tablet TAKE 1 TABLET DAILY. Quantity: 30 Refills: 11 Ordered: 29-Nov-2021 Blade Rodriguez DO Start : 29-Nov-2021 Active sertraline 50 mg oral tablet (1 source) Serotonin Reuptake Inhibitor take 0.5 tablet by mouth once daily Sertraline HCl - 50 MG Oral Tablet TAKE 1/2 TABLET DAILY. Refills: 0 Active silver sulfADIAZINE 10 mg/ml topical cream (20 sources) Sulfonamide Antibacterial Start: 01-14-20 End: 04-19-19 silver sulfADIAZINE (Silvadene) 1 % cream Apply topically 2 times a day. 0 01/13/2022 04/19/2023 Discontinued (Stop Taking at Discharge) Start: 01-13-2022 Silver sulfADI AZINE 1 % External Cream APPLY AND RUB IN A THIN FILM TO AFFECTED AREAS TWICE DAILY.(AM AND PM). Quantity: 1 Refills: 1 Ordered: 13-Jan-2022 Misty Larios Start : 13-Jan-2022 Active 1000 ml sodium chloride 9 mg /ml injection (3 sources) Start: 06-04-2023 End: 06-05-2023 sodium chloride 0.9 % bolus 1,000 mL Start: 04-26-2023 End: 04-26-2023 sodium chloride 0.9 % bolus 1,000 mL Start: 04-06-2023 End: 04-06-2023 sodium chloride 0.9 % bolus 1,000 mL sulfamethoxazole 800 mg / trimethoprim 160 mg oral tablet (14 sources) Dihydrofolate Reductase Inhibitor Antibacterial, Sulfonamide Antimicrobial Start: 06-09-2023 End: 06-15-2023 Start: 04-09-2023 End: 04-14-2023 take 1 tablet by mouth every twelve hours sulfamethoxazole-trimethoprim (Bactrim D S) 800-160 mg tablet Indications: Cellulitis of left lower extremity Take 1 tablet by mouth every 12 hours for 5 days. 10 tablet 0 04/09/2023 04/14/2023 Active Start: 04-08-2023 sulfamethoxazo le-trimethoprim (Bactrim DS) 800-160 mg per tablet 160 mg Start: 04-21-2022 take 1 tablet by genna th twice daily Sulfamethoxazole-Trimethoprim 800-160 MG Oral Tablet TAKE 1 TABLET TWICE DAILY. Quantity: 20 Refills: 0 Ordered: 21-Apr-2022 Arielle Lyman MD Start : 10-Feb-2023 Active SUMAtriptan 50 mg oral tablet (1 source) Serotonin-1b and Serotonin-1d Receptor Agonist Start: 10-24-2018 SUMAtriptan Succinat e 50 MG Oral Tablet Quantity: 9 Refills: 0 Start : 24-Oct-2018 Active 200 ml vancomycin 5 mg/ml injection (3 sources) Glycopeptide Antibacterial Start: 06-08-2023 End: 06-09-2023 Start: 06-07-2023 End: 06-08-2023 Start: 04-26-2023 End: 04-26-2023 vancomycin in 0.9 % sodium c hl (Vancocin) IVPB 1,000 mg vancomycin (Vancocin) in sod ium chloride 0.9% 500 mL IV 2 g (1 source) Start: 06-04-2023 End: 06-05-2023 vancomycin (Vancocin) in sod ium chloride 0.9% 500 mL IV 2 g vancomycin in sodium chlorid e 0.9 % (Vancocin) IVPB 2 g (1 source) Start: 04-06-2023 End: 04-06-2023 vancomycin in sodium chlorid e 0.9 % (Vancocin) IVPB 2 g VITAMIN C, ASCORBATE CALCIUM , ORAL (2 sources) End: 04-06-2023 VITAMIN C, ASCORBATE CALCIUM , ORAL Take by mouth. 0 04/06/2023 Discontinued (Entered in Error) VITAMIN C, ASCOR MARISOL CALCIUM, ORAL Take by mouth. 0 Active Zinc Acetate (2 sources) End: 04-06-2023 ZINC ACETATE ORAL Use in the mouth or throat. 0 04/06/2023 Discontinued (Entered in Error) ZINC ACETATE ORA L Use in the mouth or throat. 0 Active zinc gluconate 50 mg oral tablet (10 sources) End: 06-05-2023 take 1 tablet by mouth once daily zinc gluconate 50 mg tablet Take 1 tablet (50 mg of elemental zinc) by mouth once daily. 0 06/05/2023 Discontinued (Therapy completed) (1 source) Start: 06-07-2023 End: 06-07-2023 (1 source) Start: 06-07-2023 End: 06-07-2023 Problems Active Problems Problem Classification Problem Date Documented Da te Episodic/Chronic Anxiety disorders (20 sources) Mixed anxiety and depressive disorder; Translations: [Dysthymic disorder] Onset: 3 05-25-2022 Chronic Bacterial infection; unspecified site (20 sources) Chlamydial infection; Translations: [Unspecified chlamydial infection] Episodic Chronic kidney disease (20 sources) Chronic kidney disease stage 3; Translations: [Chronic kidney disease, Stage III (moderate)] Onset: 3 11-23-2022 Chronic Chronic ulcer of skin (20 sources) Finger ulcer; Translations: [Chronic ulcer of other specified sites] Onset: 3 10-01-2022 Chronic Contraceptive and procreative management (20 sources) Patient encounter status; Translations: [Unspecified contraceptive management] Episodic Diabetes mellitus with complications (20 sources) Hypertensive disorder; Translations: [Type 2 diabetes mellitus with other circulatory complications] Onset: 3 11-23-2022 Chronic Diabetes mellitus without complication (8 sources) Type 2 diabetes mellitus; Translations: [Type 2 diabetes mellitus without complications] 10-12-2022 Chronic Diabetes mellitus without complication (20 sources) Impaired glucose tolerance; Translations: [Impaired glucose tolerance test (oral)] Episodic Disorders of lipid metabolism (20 sources) Hypertriglyceridemia; Translations: [Pure hyperglyceridemia] Onset: 3 05-25-2022 Chronic E Codes: Natural/environment (1 source) Exposure to other specified factors, initial encounter; Translations: [Exposure to other specified factors, initial encounter] Onset: 3 Episodic Esophageal disorders (20 sources) Gastroesophageal reflux disease; Translations: [Esophageal reflux] Onset: 3 05-25-2022 Chronic Essential hypertension (20 sources) Essential hypertension; Translations: [Unspecified essential hypertension] Chronic Gangrene (1 source) Raynaud's syndrome with gangrene; Translations: [Raynaud's syndrome with gangrene] Onset: 3 Chronic Headache; including migraine (20 sources) Hemiplegic migraine; Translations: [Hemiplegic migraine, without mention of intractable migraine without mention of status migrainosus] Onset: 3 05-25-2022 Chronic Heart valve disorders (20 sources) Tricuspid valve regurgitation; Translations: [Rheumatic tricuspid insufficiency] Onset: 4 04-11-2023 Chronic Heart valve disorders (1 source) Heart murmur; Translations: [Cardiac murmur, unspecified] 04-08-2023 Episodic Menstrual disorders (20 sources) Amenorrhea; Translations: [Absence of menstruation] Onset: 3 07-20-2022 Chronic Open wounds of extremities (4 sources) Open wound of upper limb; Translations: [Unspecified open wound of right upper arm, subsequent encounter] Onset: 3 11-23-2022 Episodic Open wounds of head; neck; and trunk (1 source) Open wound(s) (multiple) of unspecified site(s), without mention of complication 12-05-2022 Episodic Other aftercare (2 sources) Post-discharge follow-up; Translations: [Encounter for follow-up examination after completed treatment for conditions other than malignant neoplasm] 04-11-2023 Episodic Other aftercare (4 sources) H/O: high risk medication; Translations: [Other shelter (current) drug therapy] 02-11-2024 Episodic Other and ill-defined heart disease (2 sources) Dysfunction of right cardiac ventricle; Translations: [Heart disease, unspecified] 07-12-2023 Chronic Other and ill-defined heart disease (2 sources) Heart disease, unspecified; Translations: [Heart disease, unspecified] Onset: 5 Chronic Other circulatory disease (20 sources) Raynaud's disease; Translations: [Raynaud's syndrome] Onset: 3 10-12-2022 Chronic Other circulatory disease (6 sources) Raynaud's syndrome without gangrene; Translations: [Raynaud's syndrome] Onset: 3 11-09-2022 Chronic Other connective tissue disease (13 sources) Swelling of left lower limb; Translations: [Swelling of limb] Episodic Other connective tissue disease (4 sources) Other specified soft tissue disorders; Translations: [Other specified soft tissue disorders] Onset: 2 Episodic Other connective tissue disease (1 source) Pain of bilateral hands; Translations: [Pain in right hand] 11-23-2022 Episodic Other connective tissue disease (1 source) Pain in right finger(s); Translations: [Pain in right finger(s)] Onset: 3 Episodic Other connective tissue disease (2 sources) Muscle weakness; Translations: [Other symptoms and signs involving the musculoskeletal system] 07-10-2024 Episodic Other diseases of veins and lymphatics (2 sources) Peripheral venous insufficiency; Translations: [Venous insufficiency (chronic) (peripheral)] 04-18-2023 Episodic Other female genital disorders (20 sources) Abnormal uterine bleeding; Translations: [Unspecified disorders of menstruation and other abnormal bleeding from female genital tract] Onset: 3 05-25-2022 Chronic Other female genital disorders (1 source) Personal history of other diseases of the female genital tract; Translations: [Personal history of oth diseases of the female genital tract] Onset: 3 Episodic Other female genital disorders (1 source) H/O: Disorder; Translations: [Personal history of other diseases of the female genital tract] 04-24-2023 Episodic Other gastrointestinal disorders (1 source) Constipation; Translations: [Constipation, unspecified] 06-25-2023 Episodic Other liver diseases (2 sources) Portal hypertension; Translations: [Portal hypertension (Multi)] Onset: 5 Chronic Other lower respiratory disease (6 sources) Dyspnea; Translations: [Shortness of breath] 02-05-2024 Episodic Other lower respiratory disease (2 sources) Shortness of breath; Translations: [Shortness of breath] Onset: 5 Episodic Other nervous system disorders (1 source) Difficulty walking; Translations: [Difficulty in walking, not elsewhere classified] 06-06-2023 Chronic Other nutritional; endocrine; and metabolic disorders (1 source) Morbid obesity; Translations: [Morbid obesity] Chronic Other nutritional; endocrine; and metabolic disorders (20 sources) Obesity; Translations: [Obesity, unspecified] Chronic Other nutritional; endocrine; and metabolic disorders (18 sources) Body mass index 30+ - obesity; Translations: [Body Mass Index 31.0-31.9, adult] Chronic Other nutritional; endocrine; and metabolic disorders (3 sources) Obesity caused by energy imbalance; Translations: [Obesity, unspecified] Chronic Other nutritional; endocrine; and metabolic disorders (1 source) Cholesterol level - finding; Translations: [Lipoprotein deficiency] 07-10-2024 Chronic Other nutritional; endocrine; and metabolic disorders (2 sources) Lipoprotein deficiency; Translations: [Lipoprotein deficiency] Onset: 5 Chronic Other upper respiratory disease (20 sources) Seasonal allergy; Translations: [Allergic rhinitis, cause unspecified] Onset: 3 05-25-2022 Chronic Other upper respiratory infections (20 sources) Posterior rhinorrhea; Translations: [Postnasal drip] Episodic Peripheral and visceral atherosclerosis (2 sources) Peripheral vascular disease; Translations: [Peripheral vascular disease, unspecified] 04-09-2023 Chronic Phlebitis; thrombophlebitis and thromboembolism (2 sources) Phlebitis and thrombophlebitis of unspecified site; Translations: [Phlebitis and thrombophlebitis of unspecified site] Onset: 2 Episodic Pulmonary heart disease (20 sources) Pulmonary hypertension; Translations: [Pulmonary hypertension, unspecified] Onset: 4 04-11-2023 Chronic Residual codes; unclassified (20 sources) Past history of procedure; Translations: [Other postprocedural status] Episodic Comment on above: 03/16/2020-ASC-US HP V NEG09/02/2018-LSIL, HPV NEG ASCUS HPV [id number] LGSIL+HPV; Residual codes; unclassified (20 sources) H/O: ; Translations: [Personal history of other genital system and obstetric disorders] Episodic Comment on above: 12/2006 Male 3629g V [id number] SAB04/2012 F 3260g; Residual codes; unclassified (20 sources) Influenza vaccination declined; Translations: [Vaccination not carried out because of patient refusal] Episodic Comment on above: REFUSED ; Residual codes; unclassified (1 source) Localized edema; Translations: [Localized edema] 06-06-2023 Episodic Residual codes; unclassified (1 source) History of clinical finding in subject; Translations: [Inadequate sleep hygiene] 06-25-2023 Episodic Substance-related disorders (10 sources) Nicotine dependence, other tobacco product, uncomplicated; Translations: [Tobacco dependence caused by cigarettes] Onset: 3 05-13-2024 Chronic Systemic lupus erythematosus and connective tissue disorders (12 sources) CREST syndrome; 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] Onset: 4 07-04-2023 Chronic Unclassified (2 sources) FINGER WOUND R HAND 09-22-2022 Comment on above: FINGER WOUND R HAND Unclassified (3 sources) 6 MTH REPEAT PAP 06-16-2022 Comment on above: 6 MTH REPEAT PAP Unclassified (1 source) Non-healing wound of upper extremity 09-22-2022 Unclassified (1 source) Non-healing wound of lower extremity 09-22-2022 Unclassified (2 sources) FINGER PAIN 10-01-2022 Comment on above: FINGER PAIN Unclassified (1 source) Finger ulcer 10-01-2022 Unclassified (2 sources) LEG AND FINGER WOUND 12-05-2022 Comment on above: LEG AND FINGER WOUND Unclassified (1 source) 6 MO FU 11-01-2022 Comment on above: 6 MO FU Unclassified (1 source) HISTORY OF OVARIAN CYST - (Z87.42) 11-01-2022 Comment on above: HISTORY OF OVARIAN C YST - (Z87.42) Unclassified (1 source) Patient encounter procedure 04-18-2022 Comment on above: YEARLY Unclassified (1 source) Chronic wound 12-05-2022 Past or Other Problems Problem Classification Problem Date Documented Date Episodic/Chronic Cancer of cervix (20 sources) Low grade squamous intraepithelial lesion on cervical Papanicolaou smear; Translations: [Papanicolaou smear of cervix with low grade squamous intraepithelial lesion (LGSIL)] Onset: 07-20-2022 Resolved: 07-20-2022 07-20-2022 Episodic Conditions associated with dizziness or vertigo (20 sources) Benign paroxysmal positional vertigo; Translations: [Benign paroxysmal positional vertigo] Onset: 05-25-2022 05-25-2022 Episodic Disorders of teeth and jaw (3 sources) Infection of tooth; Translations: [Periapical abscess without sinus] Onset: 07-04-2024 07-04-2024 Episodic Headache; including migraine (20 sources) Acute headache; Translations: [Headache] Onset: 05-25-2022 Resolved: 07-26-2022 07-26-2022 Episodic Open wounds of extremities (20 sources) Disorder of ankle; Translations: [Open wound of knee, leg [except thigh], and ankle, without mention of complication] Onset: 05-25-2022 09-22-2022 Episodic Other aftercare (3 sources) Other shelter (current) drug therapy; Translations: [Other termination clerk (current) drug therapy] Onset: 12-05-2022 Episodic Other connective tissue disease (20 sources) Pain in left lower limb; Translations: [Pain in limb] Onset: 05-25-2022 05-25-2022 Episodic Other connective tissue disease (4 sources) Other symptoms and signs involving the musculoskeletal system; Translations: [Other symptoms and signs involving the musculoskeletal system] Onset: 07-10-2024 Episodic Other female genital disorders (20 sources) Dysplasia of cervix; Translations: [Dysplasia of cervix, unspecified] Onset: 05-25-2022 05-25-2022 Episodic Other female genital disorders (20 sources) Cervical intraepithelial neoplasia grade 1; Translations: [Mild dysplasia of cervix] Onset: 05-25-2022 05-25-2022 Episodic Other female genital disorders (20 sources) Lesion of left ovary; Translations: [Unspecified noninflammatory disorder of ovary, fallopian tube, and broad ligament] Onset: 05-25-2022 05-25-2022 Episodic Other female genital disorders (20 sources) Vaginal lesion; Translations: [Other specified noninflammatory disorders of vagina] Onset: 07-20-2022 07-20-2022 Episodic Other female genital disorders (20 sources) History of gynecological disorder; Translations: [Personal history of other genital system and obstetric disorders] Onset: 11-07-2022 11-07-2022 Episodic Other female genital disorders (3 sources) Noninflammatory disorder of ovary, fallopian tube and broad ligament, unspecified; Translations: [Noninflammatory disord of ovary, fallop broad ligmt, unsp] Onset: 01-06-2022 Episodic Other hematologic conditions (20 sources) Red blood cell count raised; Translations: [Other abnormality of red blood cells] Onset: 07-26-2022 07-26-2022 Episodic Other injuries and conditions due to external causes (20 sources) Motion sickness; Translations: [Motion sickness] Onset: 05-25-2022 05-25-2022 Episodic Other liver diseases (20 sources) Decreased lipoprotein; 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] Onset: 05-25-2022 05-25-2022 Episodic Other nervous system disorders (20 sources) Paresthesia of foot ; Translations: [Disturbance of skin sensation] Onset: 05-25-2022 Resolved: 07-26-2022 07-26-2022 Episodic Other non-traumatic joint disorders (20 sources) Sacroiliac disorder; Translations: [Disorders of sacrum] Onset: 05-25-2022 05-25-2022 Episodic Other nutritional; endocrine; and metabolic disorders (20 sources) Body mass index 25-29 - overweight; Translations: [Overweight] Onset: 11-07-2022 11-23-2022 Episodic Other screening for suspected conditions (not mental disorders or infectious disease) (20 sources) Liver function tests abnormal; Translations: [Other specified abnormal findings of blood chemistry] Onset: 01-12-2022 Resolved: 07-26-2022 Episodic Ovarian cyst (20 sources) Complex ovarian cyst; Translations: [Other and unspecified ovarian cyst] Onset: 01-06-2022 05-25-2022 Episodic Residual codes; unclassified (20 sources) Edema of lower extremity; Translations: [Edema] Onset: 05-25-2022 07-26-2022 Episodic Residual codes; unclassified (4 sources) Other specified personal risk factors, not elsewhere classified; Translations: [Other specified conditions influencing health status] Onset: 02-18-2024 02-11-2024 Episodic Skin and subcutaneous tissue infections (20 sources) Cellulitis of lower limb; Translations: [Cellulitis and abscess of leg, except foot] Onset: 01-12-2022 Resolved: 04-09-2023 Episodic Unclassified (1 source) Patient encounter status; Translations: [Contraceptive management] Unclassified (20 sources) Onset: 11-23-2022 Resolved: 07-14-2024 11-23-2022 Varicose veins of lower extremity (20 sources) Varicose veins of lower extremity; Translations: [Asymptomatic varicose veins] Onset: 05-25-2022 05-25-2022 Episodic NEGATED: Highlighted row has not occurred!Residual codes; unclassified (6 sources) Disease Episodic Results Test Name Value Interpretation Reference Range Facility Basic metabolic 2000 panelon 09-29-2024 Anion gap [Moles/Vol] 10 mmol/L 10 - 2 0 mmol/L [facility] Calcium [Mass/Vol] 8.7 mg/dL 8.6 - 10. 3 mg/dL [facility] Chloride [Moles/Vol] 107 mmol/L 98 - 10 7 mmol/L [facility] CO2 [Moles/Vol] 23 mmol/L 21 - 32 mmol/L [facility] Creatinine [Mass/Vol] 1.16 mg/dL High 0.50 - 1.05 mg/dL [facility] GFR/1.73 sq M.predicted among non-blacks MDRD (S/P/Bld) [Vol rate/Area] 61 mL/min/{1.73_m2} - PINF [facility] Comment on above: Calculations of raul mated GFR are performed using the 2020 CKD-EPI Study Refit equation without the race variable for the IDMS-Traceable creatinine methods. https://jasn.asnjournals.org/content/early/ASN.673849 3492 Glucose [Mass/Vol] 68 mg/dL Low 74 - 99 mg/dL [facility] Interpretation and review of laboratory results Abnormal [facility] Potassium [Moles/Vol] 4.2 mmol/L 3.5 - 5.3 mmol/L [facility] Sodium [Moles/Vol] 136 mmol/L 136 - 145 mmol/L [facility] Urea nitrogen [Mass/Vol] 17 mg/dL 6 - 23 mg/dL [facility] Anion gap [Moles/Vol] 10 mmol/L Normal 10-20 [facility] Comment on above: Performed By: #### 2 4321-2 #### KIM VIZCAINO ([id number]) [facility] ([facility]) [facility] [place] [address] Calcium [Mass/Vol] 8.7 mg/dL Normal 8.6-10.3 [facility] Comment on above: Performed By: #### 2 4321-2 #### KIM VIZCAINO ([id number]) [facility] ([facility]) [facility] [place] [address] Chloride [Moles/Vol] 107 mmol/L Normal 98-107 [facility] Comment on above: Performed By: #### 2 4321-2 #### KIM VIZCAINO ([id number]) [facility] ([facility]) [facility] [place] [address] CO2 [Moles/Vol] 23 mmol/L Normal 21-32 [facility] Comment on above: Performed By: #### 2 4321-2 #### KIM VIZCAINO ([id number]) [facility] ([facility]) [address] [place] [address] 38724 Creatinine [Mass/Vol] 1.16 mg/dL High 0.50-1.05 [facility] Comment on above: Performed By: #### 2 4321-2 #### KIM VIZCAINO ([id number]) [facility] ([facility]) [address] [place] [address] 60958 Glomerular filtration rate/1.73 sq M.predicted 61 mL/min/1.73m*2 Normal >60 [facility] Comment on above: Result Comment: Calc ulations of estimated GFR are performed using the 2020 CKD-EPI Study Refit equation without the race variable for the IDMS-Traceable creatinine methods. https://jasn.asnjournals.org/content/early//ASN.870063 9769 Performed By: #### 2 4321-2 #### KIM VIZCAINO ([id number]) [facility] ([facility]) [address] [place] [address] 34046 Glucose [Mass/Vol] 68 mg/dL Low 74-99 [facility] Comment on above: Performed By: #### 2 4321-2 #### KIM VIZCAINO ([id number]) [facility] ([facility]) [address] [place] [address] 97302 Potassium [Moles/Vol] 4.2 mmol/L Normal 3.5-5.3 [facility] Comment on above: Performed By: #### 2 4321-2 #### KIM VIZCAINO ([id number]) [facility] ([facility]) [address] [place] [address] 35416 Sodium [Moles/Vol] 136 mmol/L Normal 136-145 [facility] Comment on above: Performed By: #### 2 4321-2 #### KIM VIZCAINO ([id number]) [facility] ([facility]) [address] [place], [place] [id number] Urea nitrogen [Mass/Vol] 17 mg/dL Normal 6-23 [facility] Comment on above: Performed By: #### 2 4321-2 #### ALVAREZ CHARIS ([id number]) [facility] ([facility]) [address] [place] [address] CARDIAC CATHETERIZATION PROC EDUTita 09-29-2024 CARDIAC CATHETERIZATION PROCEDURE [facility] [address] [place] [address] [phone], Cardiovascular Catheterization Report Patient Name: JAYNA SMITH Performing Physician: Eliz Hodge MD Study Date: 09/29/2024 Verifying Physician: Eliz Hodge MD MRN/PID: [id number] [employer] Sniper/Co-Scrub: Ordering Provider: Eliz HODGE 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 Pulmonary hypertension. LVEF Assessed: Yes. LVEF = 70%. Procedure Description: After infiltration of local anesthetic, the right brachial vein vein was identified with two-dimensional ultrasound. Under direct ultrasound visualization, the right brachial vein vein was cannulated with a micropuncture technique. A 5 [place] sheath was placed in the vein. Cardiac output was calculated via the Bishop method. Post-procedure, the venous sheath was pulled and pressure was applied to the site. Right Heart Catheterization: Cardiac output was calculated via the Bishop method. Elevated left sided filling pressures with normal cardiac output. Elevated ventricular filling pressure. Cardiac output is normal. Preserved cardiac output at rest. Elevated pulmonary vascular resistance. Pulmonary arterial hypertension. PWP 8, PA 116/39 (65), RV 115/5/13, RA 7mmHg CO 5.8, CI 3.3. Hemo Personnel: + -------+---------+ Name Duty + -------+---------+ Antonio Carpenter MD, MD 1 + -------+---------+ Hemodynamic Pressures: +----+ +------ ---+ +----- --------+---+----+----- --+-------+ Site Date Time Phase Systolic mmHg Diastolic ED Mean A-Wave V-Wave Name mmHg mmH mmHg mmHg mmHg g +----+ +------ ---+ +----- --------+---+----+----- --+-------+ PW 09/29/2024 [facility] 8 10 9 9:07:31 AM +----+ +------ ---+ +----- --------+---+----+----- --+-------+ PA 09/29/2024 [facility] 116 39 65 9:08:46 AM +----+ +------ ---+ +----- --------+---+----+----- --+-------+ RV 09/29/2024 [facility] 115 5 13 9:09:14 AM +----+ +------ ---+ +----- --------+---+----+----- --+-------+ RA 09/29/2024 [facility] 7 10 8 9:09:41 AM +----+ +------ ---+ +----- --------+---+----+----- --+-------+ Oxygen Saturation %: + + + + Sample Site O2 Sat (%) HB (g/100ml) + + + + FA 92 12.3 + + + + PA 68 12.3 + + + + FA 92 12.3 + + + + PA 68 12.3 + + + + Cardiac Outputs: + +------ +-------+ BISHOP CO (l/min) BISHOP CI (l/min/m2) BISHOP SV + +------ +-------+ 5.9 3.3 93.0 + +------ +-------+ Vascular Resistance Calculated Values (Wood Units): +-----+---+----+----+-- --+ Phase PVR PVRI TPR TPRI +-----+---+----+----+-- --+ 0 9.7 17.2 11.1 19.6 +-----+---+----+----+-- --+ Complications: No in-lab complications observed. Cardiac Cath Post Procedure Notes: Post Procedure Diagnosis: Pulmonary hypertension. Blood Loss: Estimated blood loss during the procedure was 5 mls. Specimens Removed: Number of specimen(s) removed: none. Recommendations: Maximize medical therapy. Agressive risk factor modification efforts. Follow-up with cardiology clinic. CONCLUSIONS: 1. PWP 8, PA 116/39 (65), RV 115/5/13, RA 7mmHg. 2. CO 5.8, CI 3.3. 3. Severe pulmonary artery hypertension. 4. Similar wave pattern for PA and RV, consistent with pulmonary valve regurgitation. 5. Wave pattern from right atrium consistent with tricuspid valve regurgitation. ICD 10 Codes: Pulmonary hypertension, unspecified-I27.20 CPT Codes: Right Heart Cath O2/Cardiac output without biopsy (RHC)-73613; Ultrasound guidance for needle placement-35497; Ultrasound guidance for vascular access-[id number] Antonio Hodge MD Performing Physician Final Normal [facility] CBC panel Auto (Bld)on 09-29 Erythrocyte distribution width (RBC) [Ratio] 14.6 % High 11.5 - 14.5 % [facility] Hematocrit (Bld) [Volume fraction] 37.4 % 36.0 - 46.0 % [facility] Hemoglobin (Bld) [Mass/Vol] 12.3 g/dL 12.0 - 16.0 g/dL [facility] Interpretation and review of laboratory results Abnormal [facility] MCH (RBC) [Entitic mass] 28.5 pg 26.0 - 34.0 pg [facility] MCHC (RBC) [Mass/Vol] 32.9 g/dL 32.0 - 36.0 g/dL [facility] MCV (RBC) [Entitic vol] 87 fL 80 - 100 fL [facility] Nucleated RBC/100 WBC (Bld) [Ratio] 0.0 % [facility] Platelets (Bld) [#/Vol] 62 10*3/uL [facility] Comment on above: reran and verified, no plt clots or clumps seen Platelet count verified by smear review RBC (Bld) [#/Vol] 4.31 10*6/uL [facility] WBC (Bld) [#/Vol] 2.5 10*3/uL [facility] Erythrocyte distribution width (RBC) [Ratio] 14.6 % High 11.5-14.5 [facility] Comment on above: Performed By: #### 5 8410-2 #### KIM VIZCAINO ([id number]) [facility] ([facility]) [address] [place] [address] 10085 Hematocrit (Bld) [Volume fraction] 37.4 % Normal 36.0-46.0 [facility] Comment on above: Performed By: #### 5 8410-2 #### KIM VIZCAINO ([id number]) [facility] ([facility]) [address] [place] [address] 54713 Hemoglobin (Bld) [Mass/Vol] 12.3 g/dL Normal 12.0-16.0 [facility] Comment on above: Performed By: #### 5 8410-2 #### KIM VIZCAINO ([id number]) [facility] ([facility]) [address] [place] [address] 34547 MCH (RBC) [Entitic mass] 28.5 pg Normal 26.0-34.0 [facility] Comment on above: Performed By: #### 5 8410-2 #### KIM VIZCAINO ([id number]) [facility] ([facility]) [address] [place] [address] 56415 MCHC (RBC) [Mass/Vol] 32.9 g/dL Normal 32.0-36.0 [facility] Comment on above: Performed By: #### 5 8410-2 #### KIM VIZCAINO ([id number]) [facility] ([facility]) [address] [place] [address] 23134 MCV (RBC) [Entitic vol] 87 fL Normal 80-100 [facility] Comment on above: Performed By: #### 5 8410-2 #### KIM VIZCAINO ([id number]) [facility] ([facility]) [address] [place] [address] 39195 Nucleated RBC/100 WBC (Bld) [Ratio] 0.0 /100 WBCs Normal 0.0-0.0 [facility] Comment on above: Performed By: #### 5 8410-2 #### KIM VIZCAINO ([id number]) [facility] ([facility]) [address] [place] [address] 56217 Platelets (Bld) [#/Vol] 62 x10*3/uL Low 150-450 [facility] Comment on above: Result Comment: rera n and verified, no plt clots or clumps seen Platelet count verified by smear review Performed By: #### 5 8410-2 #### KIM VIZCAINO ([id number]) [facility] ([facility]) [address] [place] [address] 39162 RBC (Bld) [#/Vol] 4.31 x10*6/uL Normal 4.00-5.20 [facility] Comment on above: Performed By: #### 5 8410-2 #### KIM CHARIS ([id number]) [facility] ([facility]) [address] [place] [address] WBC (Bld) [#/Vol] 2.5 x10*3/uL Low 4.4-11.3 [facility] Comment on above: Performed By: #### 5 8410-2 #### ALVAREZ CHARIS ([id number]) [facility] ([facility]) [address] [place] [address] Cardiac catheterization stud yon 09-29-2024 [facility] [address] [place] [address] [phone], Cardiovascular Catheterization Report Patient Name: JAYNA Robb SMITH Performing Physician: Eliz Hodge MD Study Date: 09/29/2024 Verifying Physician: Eliz Hodge MD MRN/PID: [id number] [employer]/Co-Scrub: Ordering Provider: Eliz HODGE 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 Pulmonary hypertension. LVEF Assessed: Yes. LVEF = 70%. Procedure Description: After infiltration of local anesthetic, the right brachial vein vein was identified with two-dimensional ultrasound. Under direct ultrasound visualization, the right brachial vein vein was cannulated with a micropuncture technique. A 5 [place] sheath was placed in the vein. Cardiac output was calculated via the Bishop method. Post-procedure, the venous sheath was pulled and pressure was applied to the site. Right Heart Catheterization: Cardiac output was calculated via the Bishop method. Elevated left sided filling pressures with normal cardiac output. Elevated ventricular filling pressure. Cardiac output is normal. Preserved cardiac output at rest. Elevated pulmonary vascular resistance. Pulmonary arterial hypertension. PWP 8, PA 116/39 (65), RV 115/5/13, RA 7mmHg CO 5.8, CI 3.3. Hemo Personnel: + -------+---------+ Name Duty + -------+---------+ Antonio Carpenter MD, MD 1 + -------+---------+ Hemodynamic Pressures: +----+ +------ ---+ +----- --------+---+----+----- --+-------+ Site Date Time Phase Systolic mmHg Diastolic ED Mean A-Wave V-Wave Name mmHg mmH mmHg mmHg mmHg g +----+ +------ ---+ +----- --------+---+----+----- --+-------+ PW 09/29/2024 [facility] 8 10 9 9:07:31 AM +----+ +------ ---+ +----- --------+---+----+----- --+-------+ PA 09/29/2024 [facility] 116 39 65 9:08:46 AM +----+ +------ ---+ +----- --------+---+----+----- --+-------+ RV 09/29/2024 [facility] 115 5 13 9:09:14 AM +----+ +------ ---+ +----- --------+---+----+----- --+-------+ RA 09/29/2024 [facility] 7 10 8 9:09:41 AM +----+ +------ ---+ +----- --------+---+----+----- --+-------+ Oxygen Saturation %: + + + + Sample Site O2 Sat (%) HB (g/100ml) + + + + FA 92 12.3 + + + + PA 68 12.3 + + + + FA 92 12.3 + + + + PA 68 12.3 + + + + Cardiac Outputs: + +------ +-------+ BISHOP CO (l/min) BISHOP CI (l/min/m2) BISHOP SV + +------ +-------+ 5.9 3.3 93.0 + +------ +-------+ Vascular Resistance Calculated Values (Wood Units): +-----+---+----+----+-- --+ Phase PVR PVRI TPR TPRI +-----+---+----+----+-- --+ 0 9.7 17.2 11.1 19.6 +-----+---+----+----+-- --+ Complications: No in-lab complications observed. Cardiac Cath Post Procedure Notes: Post Procedure Diagnosis: Pulmonary hypertension. Blood Loss: Estimated blood loss during the procedure was 5 mls. Specimens Removed: Number of specimen(s) removed: none. Recommendations: Maximize medical therapy. Agressiv (more content not included)... 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 Pulmonary hypertension. LVEF Assessed: Yes. LVEF = 70%. Procedure Description: After infiltration of local anesthetic, the right brachial vein vein was identified with two-dimensional ultrasound. Under direct ultrasound visualization, the right brachial vein vein was cannulated with a micropuncture technique. A 5 [place] sheath was placed in the vein. Cardiac output was calculated via the Bishop method. Post-procedure, the venous sheath was pulled and pressure was applied to the site. Right Heart Catheterization: Cardiac output was calculated via the Bishop method. Elevated left sided filling pressures with normal cardiac output. Elevated ventricular filling pressure. Cardiac output is normal. Preserved cardiac output at rest. Elevated pulmonary vascular resistance. Pulmonary arterial hypertension. PWP 8, PA 116/39 (65), RV 115/5/13, RA 7mmHg CO 5.8, CI 3.3. Hemo Personnel: + -------+---------+ Name Duty + -------+---------+ Antonio Carpenter MD, MD 1 + -------+---------+ Hemodynamic Pressures: +----+ +------ ---+ +----- --------+---+----+----- --+--- ----+ Site Date Time Phase Systolic mmHg Diastolic ED Mean A-Wave V-Wave Name mmHg mmH mmHg mmHg mmHg g +----+ +------ ---+ +----- --------+---+----+----- --+--- ----+ PW 09/29/2024 [facility] 8 10 9 9:07:31 AM +----+ +------ ---+ +----- --------+---+----+----- --+--- ----+ PA 09/29/2024 [facility] 116 39 65 9:08:46 AM +----+ +------ ---+ +----- --------+---+----+----- --+--- ----+ RV 09/29/2024 [facility] 115 5 13 9:09:14 AM +----+ +------ ---+ +----- --------+---+----+----- --+--- ----+ RA 09/29/2024 [facility] 7 10 8 9:09:41 AM +----+ +------ ---+ +----- --------+---+----+----- --+--- ----+ Oxygen Saturation %: + + + + Sample Site O2 Sat (%) HB (g/100ml) + + + + FA 92 12.3 + + + + PA 68 12.3 + + + + FA 92 12.3 + + + + PA 68 12.3 + + + + Cardiac Outputs: + +------ +-------+ BISHOP CO (l/min) BISHOP CI (l/min/m2) BISHOP SV + +------ +-------+ 5.9 3.3 93.0 + +------ +-------+ Vascular Resistance Calculated Values (Wood Units): +-----+---+----+----+-- --+ Phase PVR PVRI TPR TPRI +-----+---+----+----+-- --+ 0 9.7 17.2 11.1 19.6 +-----+---+----+----+-- --+ Complications: No in-lab complications observed. Cardiac Cath Post Procedure Notes: Post Procedure Diagnosis: Pulmonary hypertension. Blood Loss: Estimated blood loss during the procedure was 5 mls. Specimens Removed: Number of specimen(s) removed: none. Recommendations: Maximize medical therapy. Agressive risk factor modification efforts. Follow-up with cardiology clinic. CONCLUSIONS: 1. PWP 8, PA 116/39 (65), RV 115/5/13, RA 7mmHg. 2. CO 5.8, CI 3.3. 3. Severe pulmonary artery hypertension. 4. Similar wave pattern for PA and RV, consistent with pulmonary valve regurgitation. 5. Wave pattern from right atrium consistent with tricuspid valve regurgitation. ICD 10 Codes: Pulmonary hypertension, unspecified-I27.20 CPT Codes: Right Heart Cath O2/Cardiac output without biopsy (RHC)-11303; Ultrasound guidance for needle placement-44266; Ultrasound guidance for vascular access-[id number] Antonio Hodge MD Performing Physician Final [facility] Work Phone: [facility] Work Phone: ECG 12 [place] 09-29-2024 Atrial Rate 51 BPM [facility] Work Phone: P [place] 60 degrees [facility] Work Phone: P Offset 184 ms [facility] Work Phone: P Onset 115 ms [facility] Work Phone: [place] Interval 178 ms [facility] Work Phone: Q Onset 204 ms [facility] Work Phone: QRS Count 9 beats [facility] Work Phone: QRS Duration 112 ms [facility] Work Phone: QT Interval 486 ms [facility] Work Phone: QTC Calculation(Bazett) 447 ms [facility] Work Phone: QTC Fredericia 460 ms [facility] Work Phone: R [place] 147 degrees [facility] Work Phone: T [place] -52 degrees [facility] Work Phone: T Offset 447 ms [facility] Work Phone: Ventricular Rate 51 BPM [facility] Work Phone: Sinus bradycardia Possible Left atrial enlargement Right ventricular hypertrophy Cannot rule out Inferior infarct , age undetermined ST & Marked T wave abnormality, consider anterolateral ischemia Abnormal ECG When compared with ECG of 28-SEP-2024 14:51, (unconfirmed) AK interval has decreased Questionable change in QRS duration Minimal criteria for Inferior infarct are now Present Confirmed by Antonio Carpenter ([id number]) on 09/29/2024 2:41:48 PM MUSE Antonio Carpenter MD - 09/29/2024 Sinus bradycardia Possible Left atrial enlargement Right ventricular hypertrophy Cannot rule out Inferior infarct , age undetermined ST & Marked T wave abnormality, consider anterolateral ischemia Abnormal ECG When compared with ECG of 28-SEP-2024 14:51, (unconfirmed) AK interval has decreased Questionable change in QRS duration Minimal criteria for Inferior infarct are now Present Confirmed by Antonio Carpenter ([id number]) on 09/29/2024 2:41:48 PM [facility] Work Phone: [facility] Work Phone: ECG 12-LEADon 09-29-2024 ECG 12-LEAD Ventricular Rate 51 Atrial Rate 51 P-R Interval 178 QRS Duration 112 Q-T Interval 486 QTC Calculation(Bazett) 447 P [place] 60 R [place] 147 T [place] -52 QRS Count 9 Q Onset 204 P Onset 115 P Offset 184 T Offset 447 QTC Fredericia 460 Diagnosis Sinus bradycardia Possible Left atrial enlargement Right ventricular hypertrophy Cannot rule out Inferior infarct , age undetermined ST & Marked T wave abnormality, consider anterolateral ischemia Abnormal ECG When compared with ECG of 28-SEP-2024 14:51, (unconfirmed) AK interval has decreased Questionable change in QRS duration Minimal criteria for Inferior infarct are now Present Confirmed by Antonio Carpenter ([id number]) on 09/29/2024 2:41:48 PM Normal [facility] Gas panel (BldV)on 5 Anion gap 4 (BldV) [Moles/Vol] 8.0 mmol/L Low 10.0-25.0 [facility] Comment on above: Performed By: #### 2 4339-4 #### KIM VIZCAINO ([id number]) [facility] ([facility]) [address] [place], [place] [id number] Base excess Calc (BldV) [Moles/Vol] 0.5 mmol/L Normal -2.0-3.0 [facility] Comment on above: Performed By: #### 2 4339-4 #### KIM VIZCAINO ([id number]) [facility] ([facility]) [address] [place] [address] 64866 Calcium.ionized (BldV) [Moles/Vol] 1.16 mmol/L Normal 1.10-1.33 [facility] Comment on above: Performed By: #### 2 4339-4 #### KIM VIZCAINO ([id number]) [facility] ([facility]) [address] [place] [address] 33592 Chloride (BldV) [Moles/Vol] 107 mmol/L Normal 98-107 [facility] Comment on above: Performed By: #### 2 4339-4 #### KIM VIZCAINO ([id number]) [facility] ([facility]) [address] [place] [address] 86911 CO2 (BldV) [Partial pressure] 37 mm Hg Low 41-51 [facility] Comment on above: Performed By: #### 2 4339-4 #### KIM VIZCAINO ([id number]) [facility] ([facility]) [address] [place] [address] 16985 Glucose [Mass/Vol] 75 mg/dL Normal 74-99 [facility] Comment on above: Performed By: #### 2 4339-4 #### KIM VIZCAINO ([id number]) [facility] ([facility]) [address] [place], [place] [phone] HCO3 (Bld) [Moles/Vol] 24.6 mmol/L Normal 22.0-26.0 [facility] Comment on above: Performed By: #### 2 4339-4 #### KIM VIZCAINO ([id number]) [facility] ([facility]) [address] [place] [address] Hematocrit Est (Bld) [Volume fraction] 38.0 % Normal 36.0-46.0 [facility] Comment on above: Performed By: #### 2 4339-4 #### KIM VIZCAINO ([id number]) [facility] ([facility]) [address] [place] [address] Hemoglobin (Bld) [Mass/Vol] 12.6 g/dL Normal 12.0-16.0 [facility] Comment on above: Performed By: #### 2 4339-4 #### KIM VIZCAINO ([id number]) [facility] ([facility]) [address] [place] [address] Inhaled oxygen concentration 21 % Normal [facility] Comment on above: Performed By: #### 2 4339-4 #### KIM VIZCAINO ([id number]) [facility] ([facility]) [address] [place], [place] [phone] Lactate (BldV) [Moles/Vol] 0.3 mmol/L Low 0.4-2.0 [facility] Comment on above: Performed By: #### 2 4339-4 #### KIM VIZCAINO ([id number]) [facility] ([facility]) [address] [place] [address] 81740 Oxygen (BldV) [Partial pressure] 39 mm Hg Normal 35-45 [facility] Comment on above: Performed By: #### 2 4339-4 #### KIM VIZCAINO ([id number]) [facility] ([facility]) [address] [place] [address] 36234 Oxygen saturation in Venous blood 68 % Normal 45-75 [facility] Comment on above: Performed By: #### 2 4339-4 #### KIM VIZCAINO ([id number]) [facility] ([facility]) [address] [place] [address] 61773 Oxyhemoglobin (BldV) [Mass fraction] 66.8 % Normal 45.0-75.0 [facility] Comment on above: Performed By: #### 2 4339-4 #### KIM VIZCAINO ([id number]) [facility] ([facility]) [address] [place] [address] 73512 pH (BldV) 7.43 [pH] Normal 7.33-7.43 [facility] Comment on above: Performed By: #### 2 4339-4 #### KIM VIZCAINO ([id number]) [facility] ([facility]) [address] [place] [address] 47208 Potassium (BldV) [Moles/Vol] 4.5 mmol/L Normal 3.5-5.3 [facility] Comment on above: Performed By: #### 2 4339-4 #### KIM VIZCAINO ([id number]) [facility] ([facility]) [address] [place] [address] 66691 Sodium (BldV) [Moles/Vol] 135 mmol/L Low 136-145 [facility] Comment on above: Performed By: #### 2 4339-4 #### KIM VIZCAINO ([id number]) [facility] ([facility]) [address] [place] [address] 90126 HCG ( test) IA.rapi d Ql (U)Ordered By: Arielle Tierney on 09-29-2024 HCG ( test) Ql (U) Negative NEGATIVE [facility] Interpretation and review of laboratory results Normal [facility] HCG ( test) IA.rapi d Ql (U)on 09-29-2024 HCG ( test) Ql (U) Negative Normal NEGATIVE [facility] Comment on above: Performed By: #### 8 0384-1 #### ALVAREZ CHARIS ([id number]) [facility] ([facility]) [address] [place] [address] TRANSTHORACIC ECHO (TTE) COM Tia 09-18-2024 TRANSTHORACIC ECHO (TTE) COMPLETE [place] [id number], TRANSTHORACIC ECHOCARDIOGRAM REPORT Patient Name: JAYNA SMITH Reading Physician: [id number] Orlin Negro MD Study Date: 09/18/2024 Ordering Provider: [id number] GREYSON SCHUMACHER MRN/PID: [id number] Fellow: Nurse: Date of /Age: 8 1985 [employer] Pe Teacher: Monty Martin RDCS years Gender Assigned at F Additional Staff: : Height: 172.72 cm Admit Date: Weight: 68.95 kg Admission Status: Outpatient BSA / BMI: 1.82 m2 / 23.11 Department Location: [facility] Echo Lab kg/m2 Blood Pressure: 105 /70 mmHg Study Type: TRANSTHORACIC ECHO (TTE) COMPLETE Diagnosis/ICD: Primary pulmonary hypertension-I27.0 CPT Codes: Echo Complete w Full Doppler-28606 Study Detail: The following Echo studies were performed: 2D, M-Mode, Doppler and color flow. PHYSICIAN INTERPRETATION: Left Ventricle: The left ventricular systolic function is normal with a Garza's biplane calculated ejection fraction of 70%. There is mild eccentric left ventricular hypertrophy. There are no regional wall motion abnormalities. The left ventricular cavity size is normal. There is mild increased septal and normal posterior left ventricular wall thickness. The interventricular septum is flattened in systole and diastole, consistent with right ventricular pressure and volume overload. Left ventricular diastolic filling was indeterminate. Left Atrium: The left atrial size is normal. Right Ventricle: The right ventricle is severely enlarged. There is normal right ventricular global systolic function. Right Atrium: The right atrial size is severely dilated. Aortic Valve: The aortic valve is trileaflet. The aortic valve area by VTI is 2.54 cm??? with a peak velocity of 1.55 m/s. The peak and mean gradients are 9 mmHg and 5 mmHg, respectively, with a dimensionless index of 0.73. There is no evidence of aortic valve regurgitation. Mitral Valve: The mitral valve is mildly thickened. There is trace mitral valve regurgitation. The E Vmax is 0.93 m/s. Tricuspid Valve: The tricuspid valve is structurally normal. There is mild to moderate tricuspid regurgitation. The Doppler estimated right ventricular systolic pressure (RVSP) is severely elevated at 84 mmHg. Pulmonic Valve: The pulmonic valve is structurally normal. There is mild pulmonic valve regurgitation. Pericardium: Trivial to small pericardial effusion. Aorta: The aortic root is normal. Systemic Veins: The inferior vena cava appears dilated, with IVC inspiratory collapse greater than 50%. CONCLUSIONS: 1. The left ventricular systolic function is normal with a Garza's biplane calculated ejection fraction of 70%. 2. Left ventricular diastolic filling was indeterminate. 3. Severely enlarged right ventricle. 4. Right ventricular global systolic function is mildy reduce. 5. The right atrial size is severely dilated. 6. Right ventricular volume and pressure overload. 7. Mild to moderate tricuspid regurgitation. 8. The Doppler estimated RVSP is severely elevated at 84 mmHg. QUANTITATIVE DATA SUMMARY: 2D MEASUREMENTS: Normal Ranges: Ao Root d: 3.10 cm (2.0-3.7cm) LAs: 3.80 cm (2.7-4.0cm) IVSd: 1.11 cm (0.6-1.1cm) LVPWd: 0.93 cm (0.6-1.1cm) LVIDd: 4.89 cm (3.9-5.9cm) LVIDs: 2.80 cm LV Mass Index: 105.6 g/m2 LVEDV Index: 48.87 ml/m2 LV % FS 42.7 % LEFT ATRIUM: Normal Ranges: LA Vol A4C: 35.4 ml (22+/-6mL/m2) LA Vol A2C: 33.8 ml LA Vol BP: 36.9 ml LA Vol Index A4C: 19.5ml/m2 LA Vol Index A2C: 18.6 ml/m2 LA Vol Index BP: 20.3 ml/m2 LA Area A4C: 14.3 cm2 LA Area A2C: 14.9 cm2 LA Major [place] A4C: 4.9 cm LA Major [place] A2C: 5.6 cm LA Volume Index: 18.6 ml/m2 LA Vol A4C: 33.3 ml LA Vol A2C: 32.0 ml LA Vol Index BSA: 18.0 ml/m2 LV SYSTOLIC FUNCTION: Normal Ranges: EF-A4C View: 72 % (>=55%) EF-A2C View: 70 % EF-Biplane: 70 % LV EF Reported: 70 % LV DIASTOLIC FUNCTION: Normal Ranges: MV Peak E: 0.93 m/s (0.7-1.2 m/s) MV Peak A: 0.69 m/s (0.42-0.7 m/s) E/A Ratio: 1.35 (1.0-2.2) MV e' 0.068 m/s (>8.0) MV lateral e' 0.08 m/s MV medial e' 0.06 m/s E/e' Ratio: 13.59 (<8.0) MITRAL VALVE: Normal Ranges: MV DT: 310 msec (150-240msec) AORTIC VALVE: Normal Ranges: AoV Vmax: 1.55 m/s (<=1.7m/s) AoV Peak P.6 mmHg (<20mmHg) AoV Mean P.0 mmHg (1.7-11.5mmHg) LVOT Max Edita: 1.17 m/s (<=1.1m/s) AoV VTI: 35.90 cm (18-25cm) LVOT VTI: 26.30 cm LVOT Diameter: 2.10 cm (1.8-2.4cm) AoV Area, VTI: 2.54 cm2 (2.5-5.5cm2) AoV Area,Vmax: 2.61 cm2 (2.5-4.5cm2) AoV Dimensionless Index: 0.73 RIGHT VENTRICLE: RV Basal 5.74 cm RV Mid 4.63 cm RV Major 9.6 cm TAPSE: 24.4 mm RV s' 0.16 m/s TRICUSPID VALVE/RVSP: Normal Ranges: Peak TR Velocity: 4.36 m/s Est. RA Pressure: 8 mmHg RV Syst Pressure: 84 mmHg (< 30mmHg) IVC Diam: 2.20 cm [id number] Orlin Negro MD Electronically signed on 09/22/2024 at 7:21 (more content not included)... [facility] HEMOGLOBIN A1c WITH eAGon eAG (mmol/L) 4.7 mmol/L Normal [facility] Comment on above: Performed By: #### 1 6802 #### [facility] [address], [address] [place] [address] International Marketing Manager: Toby Grant MD HbA1c (Bld) [Mass fraction] 4.6 % Normal <5.7 [facility] Comment on above: Result Comment: For the purpose of screening for the presence of diabetes: <5.7% Consistent with the absence of diabetes 5.7-6.4% Consistent with increased risk for diabetes (prediabetes) > or =6.5% Consistent with diabetes This assay result is consistent with a decreased risk of diabetes. Currently, no consensus exists regarding use of hemoglobin A1c for diagnosis of diabetes in children. According to [place] Diabetes Association (ADA) guidelines, hemoglobin A1c <7.0% represents optimal control in non- diabetic patients. Different metrics may apply to specific patient populations. Standards of Medical Care in Diabetes(ADA). Performed By: #### 1 6802 #### [facility] [address], [address] [place] [address] International Marketing Manager: Toby Grant MD Magnesium [Mass/Vol] 85 mg/dL Normal [facility] Comment on above: Performed By: #### 1 6802 #### [facility] [place] [address] International Marketing Manager: Toby Grant MD LIPID PANEL, [facility] 05- 0 Cholesterol [Mass/Vol] 137 mg/dL Normal <200 [facility] Comment on above: Order Comment: FASTI NG:NO FASTING: NO Performed By: #### 8 99, 866, 3600 #### [facility] [address], [address] [place] [address] International Marketing Manager: Toby Grant MD Cholesterol in HDL [Mass/Vol] 40 mg/dL Low > OR = 50 [facility] Comment on above: Order Comment: FASTI NG:NO FASTING: NO Performed By: #### 8 99, 866, 7600 #### [facility] [address], [address] [place] [address] International Marketing Manager: Toby Grant MD Cholesterol in LDL [Mass/Vol] 80 mg/dL Normal [facility] Comment on above: Order Comment: FASTI NG:NO FASTING: NO Result Comment: Refe rence range: <100 Desirable range <100 mg/dL for primary prevention; <70 mg/dL for patients with CHD or diabetic patients with > or = 2 CHD risk factors. LDL-C is now calculated using the Jewel calculation, which is a validated novel method providing better accuracy than the Friedewald equation in the estimation of LDL-C. Roel SS et al. NICA. 2013;310(19): 5211-0886 (http://education.Kwarter/faq/XTL954) Performed By: #### 8 99, 869, 7600 #### [facility] [address], [address] [place] [address] International Marketing Manager: Toby Grant MD Cholesterol.total/Cho lesterol in HDL [Mass ratio] 3.4 {ratio} Normal <5.0 [facility] Comment on above: Order Comment: FASTI NG:NO FASTING: NO Performed By: #### 8 , 860, 7600 #### [facility] [address], [address] [place] [address] International Marketing Manager: Toby Grant MD NON HDL CHOLESTEROL 97 mg/dL (calc) Normal <130 [facility] Comment on above: Order Comment: FASTI NG:NO FASTING: NO Result Comment: For patients with diabetes plus 1 major ASCVD risk factor, treating to a non-HDL-C goal of <100 mg/dL (LDL-C of <70 mg/dL) is considered a therapeutic option. Performed By: #### 8 , 863, 7600 #### [facility] [address], [address] [place] [address] International Marketing Manager: Toby Grant MD Triglyceride [Mass/Vol] 90 mg/dL Normal <150 [facility] Comment on above: Order Comment: FASTI NG:NO FASTING: NO Performed By: #### 8 , 866, 7600 #### [facility] [address], [address] [place] [address] International Marketing Manager: Toby Grant MD T4, FREEon 07-19-2024 Free T4 [Mass/Vol] 1.1 ng/dL Normal 0.8-1.8 [facility] Comment on above: Performed By: #### 8 99, 866, 5770 #### [facility] [address], [address] [place] [address] International Marketing Manager: Toby Grant MD TSHon 07-19-2024 TSH Qn 3.02 m[IU]/L Normal [facility] Comment on above: Result Comment: Refe rence Range > or = 20 Years 0.40-4.50 Ranges First trimester 0.26-2.66 Second trimester 0.55-2.73 Third trimester 0.43-2.91 Performed By: #### 8 99, 866, 1596 #### [facility] [place] [address] International Marketing Manager: Toby Grant MD B TYPE NATRIURETIC PEPTIDE ( BNP)on 04-16-2024 Natriuretic peptide B (Bld) [Mass/Vol] 978 pg/mL High <100 [facility] Comment on above: Result Comment: BNP levels increase with age in the general population with the highest values seen in individuals greater than 75 years of age. Reference: J. Am. La. Cardiol. 2002; 40:976-982. Performed By: #### 1 759, 402, 64754, 296, 91630 #### [facility] [place] [address] International Marketing Manager: Toby Grant MD CBC (H/H, RBC, INDICES, WBC, PLT)on 04-16-2024 Erythrocyte distribution width (RBC) [Ratio] 14.3 % Normal 11.0-15.0 [facility] Comment on above: Performed By: #### 1 759, 682, 23278, 895, 29359 #### [facility] [place] [address] International Marketing Manager: Toby Grant MD Hematocrit (Bld) [Volume fraction] 41.9 % Normal 35.0-45.0 [facility] Comment on above: Performed By: #### 1 759, 622, 35057, 418, 34882 #### [facility] [place] [address] International Marketing Manager: Toby Grant MD Hemoglobin (Bld) [Mass/Vol] 13.7 g/dL Normal 11.7-15.5 [facility] Comment on above: Performed By: #### 1 759, 622, 29703, 418, 44985 #### [facility] [place] [address] International Marketing Manager: Toby Grant MD MCH (RBC) [Entitic mass] 28.2 pg Normal 27.0-33.0 [facility] Comment on above: Performed By: #### 1 759, 622, 85541, 418, 12719 #### [facility] [place] [address] International Marketing Manager: Toby Grant MD MCHC (RBC) [Mass/Vol] 32.7 g/dL Normal 32.0-36.[address] [facility] Comment on above: Result Comment: For adults, a slight decrease in the calculated MCHC value (in the range of 30 to 32 g/dL) is most likely not clinically significant; however, it should be interpreted with caution in correlation with other red cell parameters and the patient's clinical condition. Performed By: #### 1 759, 62, 51763, 418, 00592 #### [facility] [place] [address] International Marketing Manager: Toby Grant MD MCV (RBC) [Entitic vol] 86.4 fL Normal 80.0-100.0 [facility] Comment on above: Performed By: #### 1 759, 622, 38162, 418, 26127 #### [facility] [place] [address] International Marketing Manager: Toby Grant MD Platelet mean volume (Bld) [Entitic vol] 11.3 fL Normal 7.5-12.5 [facility] Comment on above: Performed By: #### 1 759, 622, 37845, 418, 45012 #### [facility] of [place] [address] International Marketing Manager: Toby Grant MD Platelets (Bld) [#/Vol] 99 10*3/uL Low 140-400 [facility] Comment on above: Performed By: #### 1 759, 622, 33784, 418, 77472 #### [facility] of [address], [address] [place] [address] International Marketing Manager: Toby Grant MD RBC (Bld) [#/Vol] 4.85 10*6/uL Normal 3.80-5.10 [facility] Comment on above: Performed By: #### 1 759, 622, 88514, 418, 52507 #### [facility] of [place] [address] International Marketing Manager: Toby Grant MD WBC (Bld) [#/Vol] 4.9 10*3/uL Normal 3.8-10.8 [facility] Comment on above: Performed By: #### 1 759, 622, 75027, 418, 49093 #### [facility] [place] [address] International Marketing Manager: Toby Grant MD COMPREHENSIVE METABOLIC PANE L W/ANION GAPon 04-16-2024 Albumin [Mass/Vol] 3.8 g/dL Normal 3.6-5.1 [facility] Comment on above: Performed By: #### 1 759, 622, 10404, 418, 91559 #### [facility] of [place] [address] International Marketing Manager: Toby Grant MD ALP [Catalytic activity/Vol] 343 U/L High 31-125 [facility] Comment on above: Performed By: #### 1 759, 622, 65396, 418, 95917 #### [facility] of [place] [address] [place] [address] International Marketing Manager: Toby Grant MD ALT [Catalytic activity/Vol] 21 U/L Normal 6-29 [facility] Comment on above: Performed By: #### 1 759, 622, 98865, 418, 30292 #### [facility] of [address], [address] [place] [address] International Marketing Manager: Toby Grant MD AST [Catalytic activity/Vol] 28 U/L Normal 10-30 [facility] Comment on above: Performed By: #### 1 759, 622, 90465, 418, 67634 #### [facility] of [place] [address] International Marketing Manager: Toby Grant MD Bilirubin [Mass/Vol] 1.0 mg/dL Normal 0.2-1.2 [facility] Comment on above: Performed By: #### 1 759, 622, 12522, 418, 04948 #### [facility] of [address], [address] [place] [address] International Marketing Manager: Toby Grant MD Calcium [Mass/Vol] 9.0 mg/dL Normal 8.6-10.2 [facility] Comment on above: Performed By: #### 1 759, 622, 34362, 418, 83009 #### [facility] of [place] [address] International Marketing Manager: Toby Grant MD Chloride [Moles/Vol] 108 mmol/L Normal 98-110 [facility] Comment on above: Performed By: #### 1 759, 622, 34071, 418, 11878 #### [facility] of [place] [address] International Marketing Manager: Toby Grant MD CO2 [Moles/Vol] 25 mmol/L Normal 20-32 [facility] Comment on above: Performed By: #### 1 759, 622, 52143, 418, 56078 #### [facility] of [address] [place] [address] International Marketing Manager: Toby Grant MD Creatinine [Mass/Vol] 1.39 mg/dL High 0.50-0.[address] [facility] Comment on above: Performed By: #### 1 759, 622, 68933, 418, 28519 #### [facility] [address], [address] [place] [address] International Marketing Manager: Toby Grant MD ELECTROLYTE BALANCE 8 mmol/L (calc) Normal 7-17 [facility] Comment on above: Performed By: #### 1 759, 622, 77106, 418, 38755 #### [facility] [place] [address] International Marketing Manager: Toby Grant MD GFR/1.73 sq M.predicted among non-blacks MDRD (S/P/Bld) [Vol rate/Area] 49 mL/min/{1.73_m2} Low > OR = 60 [facility] Comment on above: Performed By: #### 1 759, 622, 59505, 418, 90572 #### [facility] [place] [address] International Marketing Manager: Toby Grant MD Glucose [Mass/Vol] 94 mg/dL Normal 65-99 [facility] Comment on above: Result Comment: Fasting reference interval Performed By: #### 1 759, 622, 21782, 418, 44492 #### [facility] [place] [address] International Marketing Manager: Toby Grant MD Potassium [Moles/Vol] 3.8 mmol/L Normal 3.5-5.[address] [facility] Comment on above: Performed By: #### 1 759, 622, 69528, 418, 96042 #### [facility] of [place] [address] International Marketing Manager: Toby Grant MD Protein [Mass/Vol] 6.8 g/dL Normal 6.1-8.1 [facility] Comment on above: Performed By: #### 1 759, 622, 62536, 418, 53025 #### [facility] [address], [address] [place] [address] International Marketing Manager: Toby Grant MD Sodium [Moles/Vol] 141 mmol/L Normal 135-146 [facility] Comment on above: Performed By: #### 1 759, 622, 50825, 418, 96163 #### [facility] [address], [address] [place] [address] International Marketing Manager: Toby Grant MD Urea nitrogen [Mass/Vol] 16 mg/dL Normal 7-25 [facility] Comment on above: Performed By: #### 1 759, 622, 51888, 418, 64729 #### [facility] [address], [address] [place] [address] International Marketing Manager: Toby Grant MD DIGOXINon 04-16-2024 Digoxin [Mass/Vol] ng/mL Low 0.8-2.0 [facility] Comment on above: Result Comment: Veri fied by repeat analysis. JUAN MANUEL Anti-Digoxin (Digibind(R)) in serum/plasma of patients under toxicity therapy may interfere with the digoxin immunoassay. Note: Patients with levels as low as 0.5 ng/mL may experience similar benefits regarding symptoms of heart failure, improvement in LVEFs, and increased treadmill time compared with patients with moderate (1.0 to 1.2 ng/mL) to high (more than 1.2 ng/mL) serum digoxin concentrations. (Prachi Tenorio, Hayder Dubon, Soto Tariq. et al. 2021 AHA/ACC/HFSA Guideline for the Management of Heart Failure: A Report of the [place] College of Cardiology/[place] Heart Association Joint Committee on Clinical Practice Guidelines. J Am La Cardiol. 2021, 79 (17) w839-o436; Manny SA, Moira HF, Sunny DK. Digoxin therapy for heart failure: an update. Am Fam Physician. 2005Oct 24;74(4):613-8) Performed By: #### 1 759, 622, 69611, 418, 00438 #### [facility] [address], [address] [place] [address] International Marketing Manager: Toby Grant MD MAGNESIUMon 04-16-2024 Magnesium [Mass/Vol] 2.0 mg/dL Normal 1.5-2.5 [facility] Comment on above: Order Comment: FASTI NG:YES FASTING: YES Performed By: #### 1 759, 622, 91176, 418, 78504 #### [facility] [address], [address] [place] [address] International Marketing Manager: Toby Grant MD TRANSTHORACIC ECHO (TTE) COM PLETEon 02-05-2024 TRANSTHORACIC ECHO ([place]) [place] [address] [phone], TRANSTHORACIC ECHOCARDIOGRAM REPORT Patient Name: JAYNA SMITH Reading Physician: [id number] Lashaun Torres MD Study Date: 02/05/2024 Ordering Provider: [id number] GREYSON SCHUMACHER MRN/PID: [id number] Fellow: Nurse: Date of /Age: 8 1985 / 38 [employer] Teacher: GINA Bowman RVT Gender Assigned at F Additional Staff: : Height: 172.72 cm Admit Date: Weight: 75.30 kg Admission Status: Outpatient BSA / BMI: 1.89 m2 / 25.24 Department Location: [facility] kg/m2 Blood Pressure: 119 /84 mmHg Study Type: TRANSTHORACIC ECHO (TTE) COMPLETE Diagnosis/ICD: Pulmonary hypertension, unspecified-I27.20; Shortness of breath-R06.02 Indication: Dyspnea, Pulm HTN CPT Codes: Echo Complete w Full Doppler-[id number] Patient History: Pertinent History: Previousecho 06-06-23. Study Detail: The following Echo studies were performed: 2D, M-Mode, Doppler and color flow. A bubble study was not performed. The patient was awake. PHYSICIAN INTERPRETATION: Left Ventricle: Left ventricular ejection fraction is normal, by visual estimate at 60%. There are no regional wall motion abnormalities. The left ventricular cavity size is decreased. There is moderately increased septal and normal posterior left ventricular wall thickness. There is left ventricular concentric remodeling. Spectral Doppler shows a normal pattern of left ventricular diastolic filling. Left Atrium: The left atrium is normal in size. A bubble study using agitated saline was not performed. Right Ventricle: The right ventricle is severely enlarged. There is severely reduced right ventricular systolic function. Right Atrium: The right atrium is moderately to severely dilated. Aortic Valve: The aortic valve is trileaflet. The aortic valve dimensionless index is 0.84. There is no evidence of aortic valve regurgitation. The peak instantaneous gradient of the aortic valve is 6 mmHg. The mean gradient of the aortic valve is 3 mmHg. Mitral Valve: The mitral valve is normal in structure. There is no evidence of mitral valve regurgitation. Tricuspid Valve: The tricuspid valve is structurally normal. There is severe tricuspid regurgitation. The Doppler estimated RVSP is severely elevated at 144.1 mmHg. Pulmonic Valve: The pulmonic valve is structurally normal. There is moderate to severe pulmonic valve regurgitation. Pericardium: Trivial pericardial effusion. Aorta: The aortic root is normal. Pulmonary Artery: The Doppler estimated pulmonary artery diastolic pressure is 18.7 mmHg. CONCLUSIONS: 1. Left ventricular ejection fraction is normal, by visual estimate at 60%. 2. Left ventricular cavity size is decreased. 3. There is severely reduced right ventricular systolic function. 4. Severely enlarged right ventricle. 5. The right atrium is moderately to severely dilated. 6. Severe tricuspid regurgitation. 7. Severely elevated right ventricular systolic pressure. 8. Moderate to severe pulmonic valve regurgitation. 9. There is moderately increased septal thickness. QUANTITATIVE DATA SUMMARY: 2D MEASUREMENTS: Normal Ranges: Ao Root d: 3.10 cm (2.0-3.7cm) LAs: 3.40 cm (2.7-4.0cm) IVSd: 1.55 cm (0.6-1.1cm) LVPWd: 1.05 cm (0.6-1.1cm) LVIDd: 3.48 cm (3.9-5.9cm) LVIDs: 1.53 cm LV Mass Index: 80.8 g/m2 LV % FS 56.0 % LA VOLUME: Normal Ranges: LA Vol A4C: 34.9 ml (22+/-6mL/m2) LA Vol A2C: 33.7 ml LA Vol BP: 41.9 ml LA Vol Index A4C: 18.5ml/m2 LA Vol Index A2C: 17.9 ml/m2 LA Vol Index BP: 22.2 ml/m2 LA Area A4C: 17.4 cm2 LA Area A2C: 14.0 cm2 LA Major [place] A4C: 7.4 cm LA Major [place] A2C: 4.9 cm LA Volume Index: 17.4 ml/m2 LA Vol A4C: 37.6 ml LA Vol A2C: 32.9 ml LA Vol Index BSA: 18.7 ml/m2 M-MODE MEASUREMENTS: Normal Ranges: AoV Exc: 1.80 cm (1.5-2.5cm) AORTA MEASUREMENTS: Normal Ranges: AoV Exc: 1.80 cm (1.5-2.5cm) LV SYSTOLIC FUNCTION BY 2D PLANIMETRY (MOD): Normal Ranges: EF-A4C View: 74 % (>=55%) EF-A2C View: 49 % EF-Biplane: 61 % EF-Visual: 60 % LV EF Reported: 60 % LV DIASTOLIC FUNCTION: Normal Ranges: MV Peak E: 0.51 m/s (0.7-1.2 m/s) MV Peak A: 0.85 m/s (0.42-0.7 m/s) E/A Ratio: 0.60 (1.0-2.2) MV e' 0.089 m/s (>8.0) MV lateral e' 0.11 m/s MV medial e' 0.07 m/s E/e' Ratio: 5.73 (<8.0) MITRAL VALVE: Normal Ranges: MV DT: 165 msec (150-240msec) AORTIC VALVE: Normal Ranges: AoV Vmax: 1.23 m/s (<=1.7m/s) AoV Peak P.1 mmHg (<20mmHg) AoV Mean P.0 mmHg (1.7-11.5mmHg) LVOT Max Edita: 0.99 m/s (<=1.1m/s) AoV VTI: 21.50 cm (18-25cm) LVOT VTI: 18.10 cm LVOT Diameter: 2.20 cm (1.8-2.4cm) AoV Area, VTI: 3.20 cm2 (2.5-5.5cm2) AoV Area,Vmax: 3.05 cm2 (2.5-4.5cm2) AoV Dimensionless Index: 0.84 RIGHT VENTRICLE: RV Basal 5.13 cm RV Mid 4.05 cm RV Major 8.3 cm TAPSE: 19.8 mm TRICUSPID VALVE/RVSP: Normal Ranges: Peak TR Velocity: (more content not included)... Normal [facility] Heart TransthoracicOrdere d By: Lashaun Torres on 02-05-2024 Aortic Valve Area by Continuity of Peak Velocity 3.05 cm2 [facility] Work Phone: Aortic Valve Area by Continuity of VTI 3.2 cm2 [facility] Work Phone: AV mn grad 3 mmHg [facility] Work Phone: AV pk grad 6 mmHg [facility] Work Phone: AV pk edita 1.23 m/s [facility] Work Phone: LA vol index A/L 22.2 ml/m2 [facility] Work Phone: LV A4C EF 73.6 [facility] Work Phone: LV Biplane EF 61 % [facility] Work Phone: LV EF 60 % [facility] Work Phone: LVIDd 3.48 cm [facility] Work Phone: LVOT diam 2.2 cm [facility] Work Phone: MV E/A ratio 0.6 [facility] Work Phone: RVSP 144.1 mmHg [facility] Work Phone: Tricuspid annular plane systolic excursion 2 cm [facility] Work Phone: [facility] Work Phone: [place] [address] [phone], TRANSTHORACIC ECHOCARDIOGRAM REPORT Patient Name: JAYNA SMITH Reading Physician: [id number] Lashaun Torres MD Study Date: 02/05/2024 Ordering Provider: [id number] GREYSON SCHUMACHER MRN/PID: [id number] Fellow: Nurse: Date of /Age: 8 1985 [employer] Teacher: Lisbeth gonzalez RVT, RCS Gender Assigned at F Additional Staff: : Height: 172.72 cm Admit Date: Weight: 75.30 kg Admission Status: Outpatient BSA / BMI: 1.89 m2 / 25.24 Department Location: [facility] Echo Lab kg/m2 Blood Pressure: 119 /84 mmHg Study Type: TRANSTHORACIC ECHO (TTE) COMPLETE Diagnosis/ICD: Pulmonary hypertension, unspecified-I27.20; Shortness of breath-R06.02 Indication: Dyspnea, Pulm HTN CPT Codes: Echo Complete w Full Doppler-[id number] Patient History: Pertinent History: Previousecho 06-06-23. Study Detail: The following Echo studies were performed: 2D, M-Mode, Doppler and color flow. A bubble study was not performed. The patient was awake. PHYSICIAN INTERPRETATION: Left Ventricle: Left ventricular ejection fraction is normal, by visual estimate at 60%. There are no regional wall motion abnormalities. The left ventricular cavity size is decreased. There is moderately increased septal and normal posterior left ventricular wall thickness. There is left ventricular concentric remodeling. Spectral Doppler shows a normal pattern of left ventricular diastolic filling. Left Atrium: The left atrium is normal in size. A bubble study using agitated saline was not performed. Right Ventricle: The right ventricle is severely enlarged. There is severely reduced right ventricular systolic function. Right Atrium: The right atrium is moderately to severely dilated. Aortic Valve: The aortic valve is trileaflet. The aortic valve dimensionless index is 0.84. There is no evidence of aortic valve regurgitation. The peak instantaneous gradient of the aortic valve is 6 mmHg. The mean gradient of the aortic valve is 3 mmHg. Mitral Valve: The mitral valve is normal in structure. There is no evidence of mitral valve regurgitation. Tricuspid Valve: The tricuspid valve is structurally normal. There is severe tricuspid regurgitation. The Doppler estimated RVSP is severely elevated at 144.1 mmHg. Pulmonic Valve: The pulmonic valve is structurally normal. There is moderate to severe pulmonic valve regurgitation. Pericardium: Trivial pericardial effusion. Aorta: The aortic root is normal. Pulmonary Artery: The Doppler estimated pulmonary artery diastolic pressure is 18.7 mmHg. CONCLUSIONS: 1. Left ventricular ejection fraction is normal, by visual estimate at 60%. 2. Left ventricular cavity size is decreased. 3. There is severely reduced right ventricular systolic function. 4. Severely enlarged right ventricle. 5. The right atrium is moderately to severely dilated. 6. Severe tricuspid regurgitation. 7. Severely elevated right ventricular systolic pressure. 8. Moderate to severe pulmonic valve regurgitation. 9. There is moderately increased septal thickness. QUANTITATIVE DATA SUMMARY: 2D MEASUREMENTS: Normal Ranges: Ao Root d: 3.10 cm (2.0-3.7cm) LAs: 3.40 cm (2.7-4.0cm) IVSd: 1.55 cm (0.6-1.1cm) LVPWd: 1.05 cm (0.6-1.1cm) LVIDd: 3.48 cm (3.9-5.9cm) LVIDs: 1.53 cm LV Mass Index: 80.8 g/m2 LV % FS 56.0 % LA VOLUME: Normal Ranges: LA Vol A4C: 34.9 ml (22+/-6mL/m2) LA Vol A2C: 33.7 ml LA Vol BP: 41.9 ml LA Vol Index A4C: 18.5ml/m2 LA Vol Index A2C: 17.9 ml/m2 LA Vol Index BP: 22.2 ml/m2 LA Area A4C: 17.4 cm2 LA Area A2C: 14.0 cm2 LA [place] A4C: 7.4 cm LA Major [place] A2C: 4.9 cm LA Volume Index: 17.4 ml/m2 LA Vol A4C: 37.6 ml LA Vol A2C: 32.9 ml LA Vol Index BSA: 18.7 ml/m2 M-MODE MEASUREMENTS: Normal Ranges: AoV Exc: 1.80 cm (1.5-2.5cm) AORTA MEASUREMENTS: Normal Ranges: AoV Exc: 1.80 cm (1.5-2.5cm) LV SYSTOLIC FUNCTION BY 2D PLANIMETRY (MOD): Normal Ranges: EF-A4C View: 74 % (>=55%) EF-A2C View: 49 % EF-Biplane: 61 % EF-Visual: 60 % LV EF Reported: 60 % LV DIASTOLIC FUNCTION: Normal Ranges: MV Peak E: 0.51 m/s (0.7-1.2 m/s) MV Peak A: 0.85 m/s ( (more content not included)... Lashaun Cabezas MD - 02/05/2024 [place] [address] [phone], TRANSTHORACIC ECHOCARDIOGRAM REPORT Patient Name: JAYNA Robb BRENT Reading Physician: [id number] Lashaun Torres MD Study Date: 02/05/2024 Ordering Provider: [id number] GREYSON SCHUMACHER MRN/PID: [id number] Fellow: Nurse: Date of /Age: 8 1985 [employer] Teacher: Lisbeth ARNDTT, RCS Gender Assigned at F Additional Staff: : Height: 172.72 cm Admit Date: Weight: 75.30 kg Admission Status: Outpatient BSA / BMI: 1.89 m2 / 25.24 Department Location: [facility] Echo Lab kg/m2 Blood Pressure: 119 /84 mmHg Study Type: TRANSTHORACIC ECHO (TTE) COMPLETE Diagnosis/ICD: Pulmonary hypertension, unspecified-I27.20; Shortness of breath-R06.02 Indication: Dyspnea, Pulm HTN CPT Codes: Echo Complete w Full Doppler-[id number] Patient History: Pertinent History: Previousecho 06-06-23. Study Detail: The following Echo studies were performed: 2D, M-Mode, Doppler and color flow. A bubble study was not performed. The patient was awake. PHYSICIAN INTERPRETATION: Left Ventricle: Left ventricular ejection fraction is normal, by visual estimate at 60%. There are no regional wall motion abnormalities. The left ventricular cavity size is decreased. There is moderately increased septal and normal posterior left ventricular wall thickness. There is left ventricular concentric remodeling. Spectral Doppler shows a normal pattern of left ventricular diastolic filling. Left Atrium: The left atrium is normal in size. A bubble study using agitated saline was not performed. Right Ventricle: The right ventricle is severely enlarged. There is severely reduced right ventricular systolic function. Right Atrium: The right atrium is moderately to severely dilated. Aortic Valve: The aortic valve is trileaflet. The aortic valve dimensionless index is 0.84. There is no evidence of aortic valve regurgitation. The peak instantaneous gradient of the aortic valve is 6 mmHg. The mean gradient of the aortic valve is 3 mmHg. Mitral Valve: The mitral valve is normal in structure. There is no evidence of mitral valve regurgitation. Tricuspid Valve: The tricuspid valve is structurally normal. There is severe tricuspid regurgitation. The Doppler estimated RVSP is severely elevated at 144.1 mmHg. Pulmonic Valve: The pulmonic valve is structurally normal. There is moderate to severe pulmonic valve regurgitation. Pericardium: Trivial pericardial effusion. Aorta: The aortic root is normal. Pulmonary Artery: The Doppler estimated pulmonary artery diastolic pressure is 18.7 mmHg. CONCLUSIONS: 1. Left ventricular ejection fraction is normal, by visual estimate at 60%. 2. Left ventricular cavity size is decreased. 3. There is severely reduced right ventricular systolic function. 4. Severely enlarged right ventricle. 5. The right atrium is moderately to severely dilated. 6. Severe tricuspid regurgitation. 7. Severely elevated right ventricular systolic pressure. 8. Moderate to severe pulmonic valve regurgitation. 9. There is moderately increased septal thickness. QUANTITATIVE DATA SUMMARY: 2D MEASUREMENTS: Normal Ranges: Ao Root d: 3.10 cm (2.0-3.7cm) LAs: 3.40 cm (2.7-4.0cm) IVSd: 1.55 cm (0.6-1.1cm) LVPWd: 1.05 cm (0.6-1.1cm) LVIDd: 3.48 cm (3.9-5.9cm) LVIDs: 1.53 cm LV Mass Index: 80.8 g/m2 LV % FS 56.0 % LA VOLUME: Normal Ranges: LA Vol A4C: 34.9 ml (22+/-6mL/m2) LA Vol A2C: 33.7 ml LA Vol BP: 41.9 ml LA Vol Index A4C: 18.5ml/m2 LA Vol Index A2C: 17.9 ml/m2 LA Vol Index BP: 22.2 ml/m2 LA Area A4C: 17.4 cm2 LA Area A2C: 14.0 cm2 LA [place] A4C: 7.4 cm LA Major [place] A2C: 4.9 cm LA Volume Index: 17.4 ml/m2 LA Vol A4C: 37.6 ml LA Vol A2C: 32.9 ml LA Vol Index BSA: 18.7 ml/m2 M-MODE MEASUREMENTS: Normal Ranges: AoV Exc: 1.80 cm (1.5-2.5cm) AORTA MEASUREMENTS: Normal Ranges: AoV Exc: 1.80 cm (1.5-2.5cm) LV SYSTOLIC FUNCTION BY 2D PLANIMETRY (MOD): Normal Ranges: EF-A4C View: 74 % (>=55%) EF-A2C View: 49 % EF-Biplane: 61 % EF-Visual: 60 % LV EF Reported: 60 % LV DIASTOLIC FUNCTION: Normal Ranges: MV Peak E: 0.51 m/s (0.7-1.2 m/s) MV Peak A: 0.85 m/s (0.42-0.7 m/s) E/A Ratio: 0.60 (1.0-2.2) MV e' 0.089 m/s (>8.0) MV lateral e' 0.11 m/s MV medial e' 0.07 m/s E/e' Ratio: 5.73 (<8.0) MITRAL VALVE: Normal Ranges: MV DT: 165 msec (150-240msec) AORTIC VALVE: Normal Ranges: AoV Vmax: 1.23 m/s (<=1.7m/s) AoV Peak P.1 mmHg (<20mmHg) AoV Mean P.0 mmHg (1.7-11.5mmHg) LVOT Max Edita: 0.99 m/s (<=1.1m/s) AoV VTI: 21.50 cm (18-25cm) LVOT VTI: 18.10 cm LVOT Diameter: 2.20 cm (1.8-2.4cm) AoV Area, VTI: 3.20 cm2 (2.5-5.5cm2) AoV Area,Vmax: 3.05 cm2 (2.5-4.5cm2) AoV Dimensionless Index: 0.84 RIGHT VENTRICLE: RV Basal 5.13 cm (more content not included)... [facility] Work Phone: CBC W Auto Differential pane l (Bld)on 06-26-2023 Basophils (Bld) [#/Vol] 0.04 10*3/uL [facility] Basophils/100 WBC (Bld) 0.8 % 0.0 - 2.0 % [facility] Eosinophils (Bld) [#/Vol] 0.06 10*3/uL [facility] Eosinophils/100 WBC (Bld) 1.2 % 0.0 - 6.0 % [facility] Erythrocyte distribution width (RBC) [Ratio] 16.3 % High 11.5 - 14.5 % [facility] Hematocrit (Bld) [Volume fraction] 42.6 % 36.0 - 46.0 % [facility] Hemoglobin (Bld) [Mass/Vol] 13.5 g/dL 12.0 - 16.0 g/dL [facility] Immature granulocytes (Bld) [#/Vol] 0.03 10*3/uL [facility] Immature granulocytes/100 WBC (Bld) 0.6 % 0.0 - 0.9 % [facility] Interpretation and review of laboratory results Abnormal [facility] Lymphocytes (Bld) [#/Vol] 1.01 10*3/uL Low [facility] Lymphocytes/100 WBC (Bld) 20.5 % 13.0 - 44.0 % [facility] MCH (RBC) [Entitic mass] 27.9 pg 26.0 - 34.0 pg [facility] MCHC (RBC) [Mass/Vol] 31.7 g/dL Low 32.0 - 36.0 g/dL [facility] MCV (RBC) [Entitic vol] 88 fL 80 - 100 fL [facility] Monocytes (Bld) [#/Vol] 0.58 10*3/uL [facility] Monocytes/100 WBC (Bld) 11.8 % 2.0 - 10.0 % [facility] Neutrophils (Bld) [#/Vol] 3.21 10*3/uL [facility] Neutrophils/100 WBC (Bld) 65.1 % 40.0 - 80.0 % [facility] Nucleated RBC/100 WBC (Bld) [Ratio] 0.0 % [facility] Platelets (Bld) [#/Vol] 169 10*3/uL [facility] RBC (Bld) [#/Vol] 4.84 10*6/uL [facility] WBC (Bld) [#/Vol] 4.9 10*3/uL [facility] Comprehensive metabolic 2000 panelon 06-26-2023 Albumin BCP dye [Mass/Vol] 3.4 g/dL 3.4 - 5.0 g/dL [facility] ALP [Catalytic activity/Vol] 307 U/L High 33 - 110 U/L [facility] ALT With P-5'-P [Catalytic activity/Vol] 12 U/L 7 - 45 U/L [facility] Anion gap [Moles/Vol] 18 mmol/L 10 - 2 0 mmol/L [facility] AST With P-5'-P [Catalytic activity/Vol] 14 U/L 9 - 39 U/L [facility] Bilirubin [Mass/Vol] 1.3 mg/dL High 0.0 - 1 .2 mg/dL [facility] Calcium [Mass/Vol] 9.6 mg/dL 8.6 - 10. 6 mg/dL [facility] Chloride [Moles/Vol] 102 mmol/L 98 - 10 7 mmol/L [facility] CO2 [Moles/Vol] 23 mmol/L 21 - 32 mmol/L [facility] Creatinine [Mass/Vol] 1.20 mg/dL High 0.50 - 1.05 mg/dL [facility] GFR/1.73 sq M.predicted among non-blacks MDRD (S/P/Bld) [Vol rate/Area] 59 mL/min/{1.73_m2} Low - PINF [facility] Glucose [Mass/Vol] 88 mg/dL 74 - 99 mg/dL [facility] Interpretation and review of laboratory results Abnormal [facility] Potassium [Moles/Vol] 4.0 mmol/L 3.5 - 5.3 mmol/L [facility] Protein [Mass/Vol] 6.9 g/dL 6.4 - 8.2 g/dL [facility] Sodium [Moles/Vol] 139 mmol/L 136 - 145 mmol/L [facility] Urea nitrogen [Mass/Vol] 13 mg/dL 6 - 23 mg/dL [facility] Electrocardiogram, 12-lead P RN [facility] symptomsOrdered By: Erik Thal on 06-26-2023 Atrial Rate 78 BPM [facility] Work Phone: P [place] 64 degrees [facility] Work Phone: P Offset 202 ms [facility] Work Phone: P Onset 138 ms [facility] Work Phone: [place] Interval 158 ms [facility] Work Phone: Q Onset 217 ms [facility] Work Phone: QRS Count 13 beats [facility] Work Phone: QRS Duration 98 ms [facility] Work Phone: QT Interval 386 ms [facility] Work Phone: QTC Calculation(Bazett) 440 ms [facility] Work Phone: QTC Fredericia 421 ms [facility] Work Phone: R [place] 140 degrees [facility] Work Phone: T [place] -4 degrees [facility] Work Phone: T Offset 410 ms [facility] Work Phone: Ventricular Rate 78 BPM [facility] Work Phone: [facility] Work Phone: Electrocardiogram, 12-lead P RN [facility] symptomson 06-26-2023 [facility] Work Phone: Magnesiumon 06-26-2023 Magnesium [Mass/Vol] 1.80 mg/dL 1.60 - 2.40 mg/dL [facility] Magnesium [Mass/Vol]on 06-25 Interpretation and review of laboratory results Normal [facility] No Panel Informationon 06-25 [facility] CBC W Auto Differential pane l (Bld)on 06-25-2023 Basophils (Bld) [#/Vol] 0.07 10*3/uL [facility] Basophils/100 WBC (Bld) 1.0 % 0.0 - 2.0 % [facility] Eosinophils (Bld) [#/Vol] 0.13 10*3/uL [facility] Eosinophils/100 WBC (Bld) 1.8 % 0.0 - 6.0 % [facility] Erythrocyte distribution width (RBC) [Ratio] 16.7 % High 11.5 - 14.5 % [facility] Hematocrit (Bld) [Volume fraction] 44.3 % 36.0 - 46.0 % [facility] Hemoglobin (Bld) [Mass/Vol] 13.4 g/dL 12.0 - 16.0 g/dL [facility] Immature granulocytes (Bld) [#/Vol] 0.03 10*3/uL [facility] Immature granulocytes/100 WBC (Bld) 0.4 % 0.0 - 0.9 % [facility] Interpretation and review of laboratory results Abnormal [facility] Lymphocytes (Bld) [#/Vol] 1.50 10*3/uL [facility] Lymphocytes/100 WBC (Bld) 21.0 % 13.0 - 44.0 % [facility] MCH (RBC) [Entitic mass] 27.6 pg 26.0 - 34.0 pg [facility] MCHC (RBC) [Mass/Vol] 30.2 g/dL Low 32.0 - 36.0 g/dL [facility] MCV (RBC) [Entitic vol] 91 fL 80 - 100 fL [facility] Monocytes (Bld) [#/Vol] 0.80 10*3/uL [facility] Monocytes/100 WBC (Bld) 11.2 % 2.0 - 10.0 % [facility] Neutrophils (Bld) [#/Vol] 4.60 10*3/uL [facility] Neutrophils/100 WBC (Bld) 64.6 % 40.0 - 80.0 % [facility] Nucleated RBC/100 WBC (Bld) [Ratio] 0.0 % [facility] Platelets (Bld) [#/Vol] 151 10*3/uL [facility] RBC (Bld) [#/Vol] 4.86 10*6/uL [facility] WBC (Bld) [#/Vol] 7.1 10*3/uL [facility] Comprehensive metabolic 2000 panelon 06-25-2023 Albumin BCP dye [Mass/Vol] 3.5 g/dL 3.4 - 5.0 g/dL [facility] ALP [Catalytic activity/Vol] 312 U/L High 33 - 110 U/L [facility] ALT With P-5'-P [Catalytic activity/Vol] 16 U/L 7 - 45 U/L [facility] Anion gap [Moles/Vol] 18 mmol/L 10 - 2 0 mmol/L [facility] AST With P-5'-P [Catalytic activity/Vol] 16 U/L 9 - 39 U/L [facility] Bilirubin [Mass/Vol] 1.2 mg/dL 0.0 - 1 .2 mg/dL [facility] Calcium [Mass/Vol] 9.7 mg/dL 8.6 - 10. 6 mg/dL [facility] Chloride [Moles/Vol] 102 mmol/L 98 - 10 7 mmol/L [facility] CO2 [Moles/Vol] 23 mmol/L 21 - 32 mmol/L [facility] Creatinine [Mass/Vol] 1.12 mg/dL High 0.50 - 1.05 mg/dL [facility] GFR/1.73 sq M.predicted among non-blacks MDRD (S/P/Bld) [Vol rate/Area] 64 mL/min/{1.73_m2} - PINF [facility] Glucose [Mass/Vol] 86 mg/dL 74 - 99 mg/dL [facility] Interpretation and review of laboratory results Abnormal [facility] Potassium [Moles/Vol] 4.5 mmol/L 3.5 - 5.3 mmol/L [facility] Protein [Mass/Vol] 7.0 g/dL 6.4 - 8.2 g/dL [facility] Sodium [Moles/Vol] 138 mmol/L 136 - 145 mmol/L [facility] Urea nitrogen [Mass/Vol] 16 mg/dL 6 - 23 mg/dL [facility] Magnesiumon 06-25-2023 Magnesium [Mass/Vol] 1.90 mg/dL 1.60 - 2.40 mg/dL [facility] Magnesium [Mass/Vol]on 06-24 Interpretation and review of laboratory results Normal [facility] No Panel Informationon 06-24 [facility] CBC W Auto Differential pane l (Bld)on 06-24-2023 Basophils (Bld) [#/Vol] 0.07 10*3/uL [facility] Basophils/100 WBC (Bld) 1.1 % 0.0 - 2.0 % [facility] Eosinophils (Bld) [#/Vol] 0.10 10*3/uL [facility] Eosinophils/100 WBC (Bld) 1.6 % 0.0 - 6.0 % [facility] Erythrocyte distribution width (RBC) [Ratio] 17.4 % High 11.5 - 14.5 % [facility] Hematocrit (Bld) [Volume fraction] 50.2 % High 36.0 - 46.0 % [facility] Hemoglobin (Bld) [Mass/Vol] 14.9 g/dL 12.0 - 16.0 g/dL [facility] Immature granulocytes (Bld) [#/Vol] 0.17 10*3/uL [facility] Immature granulocytes/100 WBC (Bld) 2.7 % High 0.0 - 0.9 % [facility] Interpretation and review of laboratory results Abnormal [facility] Lymphocytes (Bld) [#/Vol] 1.31 10*3/uL [facility] Lymphocytes/100 WBC (Bld) 21.0 % 13.0 - 44.0 % [facility] MCH (RBC) [Entitic mass] 27.2 pg 26.0 - 34.0 pg [facility] MCHC (RBC) [Mass/Vol] 29.7 g/dL Low 32.0 - 36.0 g/dL [facility] MCV (RBC) [Entitic vol] 92 fL 80 - 100 fL [facility] Monocytes (Bld) [#/Vol] 0.14 10*3/uL [facility] Monocytes/100 WBC (Bld) 2.2 % 2.0 - 10.0 % [facility] Neutrophils (Bld) [#/Vol] 4.46 10*3/uL [facility] Neutrophils/100 WBC (Bld) 71.4 % 40.0 - 80.0 % [facility] Nucleated RBC/100 WBC (Bld) [Ratio] 0.0 % [facility] Platelets (Bld) [#/Vol] 186 10*3/uL [facility] RBC (Bld) [#/Vol] 5.48 10*6/uL High [facility] WBC (Bld) [#/Vol] 6.3 10*3/uL [facility] Comprehensive metabolic 2000 panelon 06-24-2023 Albumin BCP dye [Mass/Vol] 4.0 g/dL 3.4 - 5.0 g/dL [facility] ALP [Catalytic activity/Vol] 379 U/L High 33 - 110 U/L [facility] ALT With P-5'-P [Catalytic activity/Vol] 23 U/L 7 - 45 U/L [facility] Anion gap [Moles/Vol] 19 mmol/L 10 - 2 0 mmol/L [facility] AST With P-5'-P [Catalytic activity/Vol] 25 U/L 9 - 39 U/L [facility] Bilirubin [Mass/Vol] 1.3 mg/dL High 0.0 - 1 .2 mg/dL [facility] Calcium [Mass/Vol] 9.6 mg/dL 8.6 - 10. 6 mg/dL [facility] Chloride [Moles/Vol] 103 mmol/L 98 - 10 7 mmol/L [facility] CO2 [Moles/Vol] 22 mmol/L 21 - 32 mmol/L [facility] Creatinine [Mass/Vol] 1.01 mg/dL 0.50 - 1.05 mg/dL [facility] GFR/1.73 sq M.predicted among non-blacks MDRD (S/P/Bld) [Vol rate/Area] 73 mL/min/{1.73_m2} - PINF [facility] Glucose [Mass/Vol] 101 mg/dL High 74 - 99 mg/dL [facility] Interpretation and review of laboratory results Abnormal [facility] Potassium [Moles/Vol] 4.8 mmol/L 3.5 - 5.3 mmol/L [facility] Protein [Mass/Vol] 7.4 g/dL 6.4 - 8.2 g/dL [facility] Sodium [Moles/Vol] 139 mmol/L 136 - 145 mmol/L [facility] Urea nitrogen [Mass/Vol] 14 mg/dL 6 - 23 mg/dL [facility] Magnesiumon 06-24-2023 Magnesium [Mass/Vol] 1.95 mg/dL 1.60 - 2.40 mg/dL [facility] Magnesium [Mass/Vol]on 06-23 Interpretation and review of laboratory results Normal [facility] No Panel Informationon 06-23 [facility] XR Abdomen Single viewon [facility] MM[facility]AL [facility] MM[facility]AL [facility] Work Phone: [facility] Work Phone: Radiology Study observation (narrative) [facility] Work Phone: XR Chest Single viewon 06-23 [facility] Work Phone: [facility] Work Phone: Radiology Study observation (narrative) [facility] Work Phone: CBC W Auto Differential pane l (Bld)on 06-23-2023 Basophils (Bld) [#/Vol] 0.06 10*3/uL [facility] Basophils/100 WBC (Bld) 1.1 % 0.0 - 2.0 % [facility] Eosinophils (Bld) [#/Vol] 0.12 10*3/uL [facility] Eosinophils/100 WBC (Bld) 2.2 % 0.0 - 6.0 % [facility] Erythrocyte distribution width (RBC) [Ratio] 18.7 % High 11.5 - 14.5 % [facility] Hematocrit (Bld) [Volume fraction] 41.6 % 36.0 - 46.0 % [facility] Hemoglobin (Bld) [Mass/Vol] 13.2 g/dL 12.0 - 16.0 g/dL [facility] Immature granulocytes (Bld) [#/Vol] 0.03 10*3/uL [facility] Immature granulocytes/100 WBC (Bld) 0.5 % 0.0 - 0.9 % [facility] Interpretation and review of laboratory results Abnormal [facility] Lymphocytes (Bld) [#/Vol] 1.02 10*3/uL Low [facility] Lymphocytes/100 WBC (Bld) 18.4 % 13.0 - 44.0 % [facility] MCH (RBC) [Entitic mass] 29.3 pg 26.0 - 34.0 pg [facility] MCHC (RBC) [Mass/Vol] 31.7 g/dL Low 32.0 - 36.0 g/dL [facility] MCV (RBC) [Entitic vol] 92 fL 80 - 100 fL [facility] Monocytes (Bld) [#/Vol] 0.59 10*3/uL [facility] Monocytes/100 WBC (Bld) 10.7 % 2.0 - 10.0 % [facility] Neutrophils (Bld) [#/Vol] 3.71 10*3/uL [facility] Neutrophils/100 WBC (Bld) 67.1 % 40.0 - 80.0 % [facility] Nucleated RBC/100 WBC (Bld) [Ratio] 0.0 % [facility] Platelets (Bld) [#/Vol] 160 10*3/uL [facility] RBC (Bld) [#/Vol] 4.51 10*6/uL [facility] WBC (Bld) [#/Vol] 5.5 10*3/uL [facility] Comprehensive metabolic 2000 panelon 06-23-2023 Albumin BCP dye [Mass/Vol] 3.3 g/dL Low 3.4 - 5.0 g/dL [facility] ALP [Catalytic activity/Vol] 357 U/L High 33 - 110 U/L [facility] ALT With P-5'-P [Catalytic activity/Vol] 21 U/L 7 - 45 U/L [facility] Anion gap [Moles/Vol] 17 mmol/L 10 - 2 0 mmol/L [facility] AST With P-5'-P [Catalytic activity/Vol] 22 U/L 9 - 39 U/L [facility] Bilirubin [Mass/Vol] 1.1 mg/dL 0.0 - 1 .2 mg/dL [facility] Calcium [Mass/Vol] 9.5 mg/dL 8.6 - 10. 6 mg/dL [facility] Chloride [Moles/Vol] 106 mmol/L 98 - 10 7 mmol/L [facility] CO2 [Moles/Vol] 21 mmol/L 21 - 32 mmol/L [facility] Creatinine [Mass/Vol] 0.91 mg/dL 0.50 - 1.05 mg/dL [facility] GFR/1.73 sq M.predicted among non-blacks MDRD (S/P/Bld) [Vol rate/Area] 82 mL/min/{1.73_m2} - PINF [facility] Glucose [Mass/Vol] 98 mg/dL 74 - 99 mg/dL [facility] Interpretation and review of laboratory results Abnormal [facility] Potassium [Moles/Vol] 4.2 mmol/L 3.5 - 5.3 mmol/L [facility] Protein [Mass/Vol] 6.5 g/dL 6.4 - 8.2 g/dL [facility] Sodium [Moles/Vol] 140 mmol/L 136 - 145 mmol/L [facility] Urea nitrogen [Mass/Vol] 15 mg/dL 6 - 23 mg/dL [facility] Magnesiumon 06-23-2023 Magnesium [Mass/Vol] 1.79 mg/dL 1.60 - 2.40 mg/dL [facility] Magnesium [Mass/Vol]on 06-22 Interpretation and review of laboratory results Normal [facility] No Panel Informationon 06-22 [facility] CBC W Auto Differential pane l (Bld)on 06-22-2023 Erythrocyte distribution width (RBC) [Ratio] 23.6 % High 11.5 - 14.5 % [facility] Hematocrit (Bld) [Volume fraction] 38.2 % 36.0 - 46.0 % [facility] Hemoglobin (Bld) [Mass/Vol] 13.2 g/dL 12.0 - 16.0 g/dL [facility] Immature granulocytes (Bld) [#/Vol] 0.04 10*3/uL [facility] Immature granulocytes/100 WBC (Bld) 0.6 % 0.0 - 0.9 % [facility] Interpretation and review of laboratory results Abnormal [facility] MCH (RBC) [Entitic mass] 35.0 pg High 26.0 - 34.0 pg [facility] MCHC (RBC) [Mass/Vol] 34.6 g/dL 32.0 - 36.0 g/dL [facility] MCV (RBC) [Entitic vol] 101 fL High 80 - 100 fL [facility] Nucleated RBC/100 WBC (Bld) [Ratio] 0.0 % [facility] Platelets (Bld) [#/Vol] 172 10*3/uL [facility] RBC (Bld) [#/Vol] 3.77 10*6/uL Low [facility] WBC (Bld) [#/Vol] 7.3 10*3/uL [facility] Comprehensive metabolic 2000 panelon 06-22-2023 Albumin BCP dye [Mass/Vol] 3.1 g/dL Low 3.4 - 5.0 g/dL [facility] ALP [Catalytic activity/Vol] 378 U/L High 33 - 110 U/L [facility] ALT With P-5'-P [Catalytic activity/Vol] 25 U/L 7 - 45 U/L [facility] Anion gap [Moles/Vol] 14 mmol/L 10 - 2 0 mmol/L [facility] AST With P-5'-P [Catalytic activity/Vol] 30 U/L 9 - 39 U/L [facility] Bilirubin [Mass/Vol] 1.0 mg/dL 0.0 - 1 .2 mg/dL [facility] Calcium [Mass/Vol] 9.1 mg/dL 8.6 - 10. 6 mg/dL [facility] Chloride [Moles/Vol] 106 mmol/L 98 - 10 7 mmol/L [facility] CO2 [Moles/Vol] 23 mmol/L 21 - 32 mmol/L [facility] Creatinine [Mass/Vol] 1.06 mg/dL High 0.50 - 1.05 mg/dL [facility] GFR/1.73 sq M.predicted among non-blacks MDRD (S/P/Bld) [Vol rate/Area] 69 mL/min/{1.73_m2} - PINF [facility] Glucose [Mass/Vol] 98 mg/dL 74 - 99 mg/dL [facility] Interpretation and review of laboratory results Abnormal [facility] Potassium [Moles/Vol] 4.4 mmol/L 3.5 - 5.3 mmol/L [facility] Protein [Mass/Vol] 6.6 g/dL 6.4 - 8.2 g/dL [facility] Sodium [Moles/Vol] 139 mmol/L 136 - 145 mmol/L [facility] Urea nitrogen [Mass/Vol] 15 mg/dL 6 - 23 mg/dL [facility] Magnesiumon 06-22-2023 Magnesium [Mass/Vol] 1.77 mg/dL 1.60 - 2.40 mg/dL [facility] Magnesium [Mass/Vol]on 06-21 Interpretation and review of laboratory results Normal [facility] Manual differential performe d Ql (Bld)on 06-22-2023 Basophils (Bld) [#/Vol] 0.07 10*3/uL [facility] Basophils/100 WBC (Bld) 0.9 % 0.0 - 2.0 % [facility] Cells Counted Total (Bld) [#] 116 {cells} [facility] Eosinophils (Bld) [#/Vol] 0.25 10*3/uL [facility] Eosinophils/100 WBC (Bld) 3.4 % 0.0 - 6.0 % [facility] Lymphocytes (Bld) [#/Vol] 1.20 10*3/uL [facility] Lymphocytes/100 WBC (Bld) 16.4 % 13.0 - 44.0 % [facility] Monocytes (Bld) [#/Vol] 0.50 10*3/uL [facility] Monocytes/100 WBC (Bld) 6.9 % 2.0 - 10.0 % [facility] RBC morphology finding Nom (Bld) No significant RBC morphology present [facility] Segmented neutrophils (Bld) [#/Vol] 5.29 10*3/uL [facility] Segmented neutrophils/100 WBC (Bld) 72.4 % 40.0 - 80.0 % [facility] No Panel Informationon 06-21 [facility] C-reactive proteinon 024 CRP [Mass/Vol] 1.94 mg/dL High NINF - 1.00 mg/dL [facility] CBC W Auto Differential pane l (Bld)on 06-21-2023 Basophils (Bld) [#/Vol] 0.06 10*3/uL [facility] Basophils/100 WBC (Bld) 1.0 % 0.0 - 2.0 % [facility] Eosinophils (Bld) [#/Vol] 0.11 10*3/uL [facility] Eosinophils/100 WBC (Bld) 1.8 % 0.0 - 6.0 % [facility] Erythrocyte distribution width (RBC) [Ratio] 18.4 % High 11.5 - 14.5 % [facility] Hematocrit (Bld) [Volume fraction] 40.3 % 36.0 - 46.0 % [facility] Hemoglobin (Bld) [Mass/Vol] 12.7 g/dL 12.0 - 16.0 g/dL [facility] Immature granulocytes (Bld) [#/Vol] 0.03 10*3/uL [facility] Immature granulocytes/100 WBC (Bld) 0.5 % 0.0 - 0.9 % [facility] Interpretation and review of laboratory results Abnormal [facility] Lymphocytes (Bld) [#/Vol] 1.13 10*3/uL Low [facility] Lymphocytes/100 WBC (Bld) 18.2 % 13.0 - 44.0 % [facility] MCH (RBC) [Entitic mass] 28.7 pg 26.0 - 34.0 pg [facility] MCHC (RBC) [Mass/Vol] 31.5 g/dL Low 32.0 - 36.0 g/dL [facility] MCV (RBC) [Entitic vol] 91 fL 80 - 100 fL [facility] Monocytes (Bld) [#/Vol] 0.76 10*3/uL [facility] Monocytes/100 WBC (Bld) 12.2 % 2.0 - 10.0 % [facility] Neutrophils (Bld) [#/Vol] 4.12 10*3/uL [facility] Neutrophils/100 WBC (Bld) 66.3 % 40.0 - 80.0 % [facility] Nucleated RBC/100 WBC (Bld) [Ratio] 0.0 % [facility] Platelets (Bld) [#/Vol] 172 10*3/uL [facility] RBC (Bld) [#/Vol] 4.43 10*6/uL [facility] WBC (Bld) [#/Vol] 6.2 10*3/uL [facility] CRP [Mass/Vol]on 06-21-2023 Interpretation and review of laboratory results Abnormal [facility] Comprehensive metabolic 2000 panelon 06-21-2023 Albumin BCP dye [Mass/Vol] 3.1 g/dL Low 3.4 - 5.0 g/dL [facility] ALP [Catalytic activity/Vol] 367 U/L High 33 - 110 U/L [facility] ALT With P-5'-P [Catalytic activity/Vol] 23 U/L 7 - 45 U/L [facility] Anion gap [Moles/Vol] 14 mmol/L 10 - 2 0 mmol/L [facility] AST With P-5'-P [Catalytic activity/Vol] 25 U/L 9 - 39 U/L [facility] Bilirubin [Mass/Vol] 1.2 mg/dL 0.0 - 1 .2 mg/dL [facility] Calcium [Mass/Vol] 9.4 mg/dL 8.6 - 10. 6 mg/dL [facility] Chloride [Moles/Vol] 105 mmol/L 98 - 10 7 mmol/L [facility] CO2 [Moles/Vol] 26 mmol/L 21 - 32 mmol/L [facility] Creatinine [Mass/Vol] 1.11 mg/dL High 0.50 - 1.05 mg/dL [facility] GFR/1.73 sq M.predicted among non-blacks MDRD (S/P/Bld) [Vol rate/Area] 65 mL/min/{1.73_m2} - PINF [facility] Glucose [Mass/Vol] 103 mg/dL High 74 - 99 mg/dL [facility] Interpretation and review of laboratory results Abnormal [facility] Potassium [Moles/Vol] 4.2 mmol/L 3.5 - 5.3 mmol/L [facility] Protein [Mass/Vol] 6.7 g/dL 6.4 - 8.2 g/dL [facility] Sodium [Moles/Vol] 141 mmol/L 136 - 145 mmol/L [facility] Urea nitrogen [Mass/Vol] 15 mg/dL 6 - 23 mg/dL [facility] ESR Westergren method (Bld) [Velocity]on 06-21-2023 ESR (Bld) [Velocity] 39 mm/h High 0 - 20 mm/h [facility] Interpretation and review of laboratory results Abnormal [facility] Magnesiumon 06-21-2023 Magnesium [Mass/Vol] 1.93 mg/dL 1.60 - 2.40 mg/dL [facility] Magnesium [Mass/Vol]on 06-20 Interpretation and review of laboratory results Normal [facility] No Panel Informationon 06-20 [facility] CBC W Auto Differential pane l (Bld)on 06-20-2023 Basophils (Bld) [#/Vol] 0.06 10*3/uL [facility] Basophils/100 WBC (Bld) 1.0 % 0.0 - 2.0 % [facility] Eosinophils (Bld) [#/Vol] 0.13 10*3/uL [facility] Eosinophils/100 WBC (Bld) 2.1 % 0.0 - 6.0 % [facility] Erythrocyte distribution width (RBC) [Ratio] 19.9 % High 11.5 - 14.5 % [facility] Hematocrit (Bld) [Volume fraction] 39.4 % 36.0 - 46.0 % [facility] Hemoglobin (Bld) [Mass/Vol] 12.8 g/dL 12.0 - 16.0 g/dL [facility] Immature granulocytes (Bld) [#/Vol] 0.04 10*3/uL [facility] Immature granulocytes/100 WBC (Bld) 0.6 % 0.0 - 0.9 % [facility] Interpretation and review of laboratory results Abnormal [facility] Lymphocytes (Bld) [#/Vol] 1.25 10*3/uL [facility] Lymphocytes/100 WBC (Bld) 19.9 % 13.0 - 44.0 % [facility] MCH (RBC) [Entitic mass] 30.8 pg 26.0 - 34.0 pg [facility] MCHC (RBC) [Mass/Vol] 32.5 g/dL 32.0 - 36.0 g/dL [facility] MCV (RBC) [Entitic vol] 95 fL 80 - 100 fL [facility] Monocytes (Bld) [#/Vol] 0.73 10*3/uL [facility] Monocytes/100 WBC (Bld) 11.6 % 2.0 - 10.0 % [facility] Neutrophils (Bld) [#/Vol] 4.08 10*3/uL [facility] Neutrophils/100 WBC (Bld) 64.8 % 40.0 - 80.0 % [facility] Nucleated RBC/100 WBC (Bld) [Ratio] 0.0 % [facility] Platelets (Bld) [#/Vol] 171 10*3/uL [facility] RBC (Bld) [#/Vol] 4.16 10*6/uL [facility] WBC (Bld) [#/Vol] 6.3 10*3/uL [facility] Comprehensive metabolic 2000 panelon 06-20-2023 Albumin BCP dye [Mass/Vol] 3.1 g/dL Low 3.4 - 5.0 g/dL [facility] ALP [Catalytic activity/Vol] 351 U/L High 33 - 110 U/L [facility] ALT With P-5'-P [Catalytic activity/Vol] 19 U/L 7 - 45 U/L [facility] Anion gap [Moles/Vol] 15 mmol/L 10 - 2 0 mmol/L [facility] AST With P-5'-P [Catalytic activity/Vol] 26 U/L 9 - 39 U/L [facility] Bilirubin [Mass/Vol] 1.2 mg/dL 0.0 - 1 .2 mg/dL [facility] Calcium [Mass/Vol] 9.2 mg/dL 8.6 - 10. 6 mg/dL [facility] Chloride [Moles/Vol] 104 mmol/L 98 - 10 7 mmol/L [facility] CO2 [Moles/Vol] 25 mmol/L 21 - 32 mmol/L [facility] Creatinine [Mass/Vol] 1.09 mg/dL High 0.50 - 1.05 mg/dL [facility] GFR/1.73 sq M.predicted among non-blacks MDRD (S/P/Bld) [Vol rate/Area] 66 mL/min/{1.73_m2} - PINF [facility] Glucose [Mass/Vol] 89 mg/dL 74 - 99 mg/dL [facility] Interpretation and review of laboratory results Abnormal [facility] Potassium [Moles/Vol] 4.5 mmol/L 3.5 - 5.3 mmol/L [facility] Protein [Mass/Vol] 6.4 g/dL 6.4 - 8.2 g/dL [facility] Sodium [Moles/Vol] 139 mmol/L 136 - 145 mmol/L [facility] Urea nitrogen [Mass/Vol] 15 mg/dL 6 - 23 mg/dL [facility] Magnesiumon 06-20-2023 Magnesium [Mass/Vol] 2.18 mg/dL 1.60 - 2.40 mg/dL [facility] No Panel Informationon 06-19 Interpretation and review of laboratory results Normal [facility] Phosphoruson 06-20-2023 Phosphate [Mass/Vol] 4.2 mg/dL 2.5 - 4 .9 mg/dL [facility] CBC W Auto Differential pane l (Bld)on 06-19-2023 Basophils (Bld) [#/Vol] 0.06 10*3/uL [facility] Basophils/100 WBC (Bld) 0.9 % 0.0 - 2.0 % [facility] Eosinophils (Bld) [#/Vol] 0.09 10*3/uL [facility] Eosinophils/100 WBC (Bld) 1.3 % 0.0 - 6.0 % [facility] Erythrocyte distribution width (RBC) [Ratio] 17.9 % High 11.5 - 14.5 % [facility] Hematocrit (Bld) [Volume fraction] 39.0 % 36.0 - 46.0 % [facility] Hemoglobin (Bld) [Mass/Vol] 12.5 g/dL 12.0 - 16.0 g/dL [facility] Immature granulocytes (Bld) [#/Vol] 0.04 10*3/uL [facility] Immature granulocytes/100 WBC (Bld) 0.6 % 0.0 - 0.9 % [facility] Interpretation and review of laboratory results Abnormal [facility] Lymphocytes (Bld) [#/Vol] 1.47 10*3/uL [facility] Lymphocytes/100 WBC (Bld) 20.9 % 13.0 - 44.0 % [facility] MCH (RBC) [Entitic mass] 28.7 pg 26.0 - 34.0 pg [facility] MCHC (RBC) [Mass/Vol] 32.1 g/dL 32.0 - 36.0 g/dL [facility] MCV (RBC) [Entitic vol] 89 fL 80 - 100 fL [facility] Monocytes (Bld) [#/Vol] 0.90 10*3/uL [facility] Monocytes/100 WBC (Bld) 12.8 % 2.0 - 10.0 % [facility] Neutrophils (Bld) [#/Vol] 4.47 10*3/uL [facility] Neutrophils/100 WBC (Bld) 63.5 % 40.0 - 80.0 % [facility] Nucleated RBC/100 WBC (Bld) [Ratio] 0.0 % [facility] Platelets (Bld) [#/Vol] 180 10*3/uL [facility] RBC (Bld) [#/Vol] 4.36 10*6/uL [facility] WBC (Bld) [#/Vol] 7.0 10*3/uL [facility] Comprehensive metabolic 2000 panelon 06-19-2023 Albumin BCP dye [Mass/Vol] 3.1 g/dL Low 3.4 - 5.0 g/dL [facility] ALP [Catalytic activity/Vol] 353 U/L High 33 - 110 U/L [facility] ALT With P-5'-P [Catalytic activity/Vol] 20 U/L 7 - 45 U/L [facility] Anion gap [Moles/Vol] 16 mmol/L 10 - 2 0 mmol/L [facility] AST With P-5'-P [Catalytic activity/Vol] 28 U/L 9 - 39 U/L [facility] Bilirubin [Mass/Vol] 1.2 mg/dL 0.0 - 1 .2 mg/dL [facility] Calcium [Mass/Vol] 9.0 mg/dL 8.6 - 10. 6 mg/dL [facility] Chloride [Moles/Vol] 101 mmol/L 98 - 10 7 mmol/L [facility] CO2 [Moles/Vol] 26 mmol/L 21 - 32 mmol/L [facility] Creatinine [Mass/Vol] 1.17 mg/dL High 0.50 - 1.05 mg/dL [facility] GFR/1.73 sq M.predicted among non-blacks MDRD (S/P/Bld) [Vol rate/Area] 61 mL/min/{1.73_m2} - PINF [facility] Glucose [Mass/Vol] 95 mg/dL 74 - 99 mg/dL [facility] Interpretation and review of laboratory results Abnormal [facility] Potassium [Moles/Vol] 4.7 mmol/L 3.5 - 5.3 mmol/L [facility] Protein [Mass/Vol] 6.4 g/dL 6.4 - 8.2 g/dL [facility] Sodium [Moles/Vol] 138 mmol/L 136 - 145 mmol/L [facility] Urea nitrogen [Mass/Vol] 17 mg/dL 6 - 23 mg/dL [facility] Magnesiumon 06-19-2023 Magnesium [Mass/Vol] 1.75 mg/dL 1.60 - 2.40 mg/dL [facility] Magnesium [Mass/Vol] 1.72 mg/dL 1.60 - 2.40 mg/dL [facility] Magnesium [Mass/Vol]on 06-18 Interpretation and review of laboratory results Normal [facility] Interpretation and review of laboratory results Normal [facility] No Panel Informationon 06-18 [facility] Renal function 2000 panelon 06-19-2023 Albumin BCP dye [Mass/Vol] 3.1 g/dL Low 3.4 - 5.0 g/dL [facility] Anion gap [Moles/Vol] 13 mmol/L 10 - 2 0 mmol/L [facility] Calcium [Mass/Vol] 9.2 mg/dL 8.6 - 10. 6 mg/dL [facility] Chloride [Moles/Vol] 103 mmol/L 98 - 10 7 mmol/L [facility] CO2 [Moles/Vol] 26 mmol/L 21 - 32 mmol/L [facility] Creatinine [Mass/Vol] 1.20 mg/dL High 0.50 - 1.05 mg/dL [facility] GFR/1.73 sq M.predicted among non-blacks MDRD (S/P/Bld) [Vol rate/Area] 59 mL/min/{1.73_m2} Low - PINF [facility] Glucose [Mass/Vol] 125 mg/dL High 74 - 99 mg/dL [facility] Interpretation and review of laboratory results Abnormal [facility] Phosphate [Mass/Vol] 4.1 mg/dL 2.5 - 4 .9 mg/dL [facility] Potassium [Moles/Vol] 4.8 mmol/L 3.5 - 5.3 mmol/L [facility] Sodium [Moles/Vol] 137 mmol/L 136 - 145 mmol/L [facility] Urea nitrogen [Mass/Vol] 17 mg/dL 6 - 23 mg/dL [facility] Serotonin Release AssayOrder ed By: Sadie Hunter on 06-19-2023 Scan Result See Scanned Result [facility] Serotonin release 0.1 IU/mL heparin.unfractionate d Qn (S) 0 % [facility] Serotonin release 100 IU/mL heparin.unfractionate d Qn (S) 0 % [facility] Serotonin release.heparin.porci ne (S) [Interp] Negative Negative [facility] Urate [Mass/Vol]on Interpretation and review of laboratory results Normal [facility] Uric Acidon 06-19-2023 Urate [Mass/Vol] 5.9 mg/dL 2.3 - 6.7 mg/dL [facility] XR Foot Viewson 06-19-2023 [facility] Work Phone: Radiology Study observation (narrative) [facility] Work Phone: XR Foot ViewsOrdered By: Diego Colon on 06-19-2023 [facility] Work Phone: CBC W Auto Differential pane l (Bld)on 06-18-2023 Basophils (Bld) [#/Vol] 0.04 10*3/uL [facility] Basophils/100 WBC (Bld) 0.8 % 0.0 - 2.0 % [facility] Eosinophils (Bld) [#/Vol] 0.07 10*3/uL [facility] Eosinophils/100 WBC (Bld) 1.4 % 0.0 - 6.0 % [facility] Erythrocyte distribution width (RBC) [Ratio] 16.8 % High 11.5 - 14.5 % [facility] Hematocrit (Bld) [Volume fraction] 37.2 % 36.0 - 46.0 % [facility] Hemoglobin (Bld) [Mass/Vol] 11.7 g/dL Low 12.0 - 16.0 g/dL [facility] Immature granulocytes (Bld) [#/Vol] 0.03 10*3/uL [facility] Immature granulocytes/100 WBC (Bld) 0.6 % 0.0 - 0.9 % [facility] Interpretation and review of laboratory results Abnormal [facility] Lymphocytes (Bld) [#/Vol] 1.00 10*3/uL Low [facility] Lymphocytes/100 WBC (Bld) 20.3 % 13.0 - 44.0 % [facility] MCH (RBC) [Entitic mass] 28.3 pg 26.0 - 34.0 pg [facility] MCHC (RBC) [Mass/Vol] 31.5 g/dL Low 32.0 - 36.0 g/dL [facility] MCV (RBC) [Entitic vol] 90 fL 80 - 100 fL [facility] Monocytes (Bld) [#/Vol] 0.58 10*3/uL [facility] Monocytes/100 WBC (Bld) 11.8 % 2.0 - 10.0 % [facility] Neutrophils (Bld) [#/Vol] 3.21 10*3/uL [facility] Neutrophils/100 WBC (Bld) 65.1 % 40.0 - 80.0 % [facility] Nucleated RBC/100 WBC (Bld) [Ratio] 0.0 % [facility] Platelets (Bld) [#/Vol] 146 10*3/uL Low [facility] RBC (Bld) [#/Vol] 4.13 10*6/uL [facility] WBC (Bld) [#/Vol] 4.9 10*3/uL [facility] Comprehensive metabolic 2000 panelon 06-18-2023 Albumin BCP dye [Mass/Vol] 2.7 g/dL Low 3.4 - 5.0 g/dL [facility] ALP [Catalytic activity/Vol] 310 U/L High 33 - 110 U/L [facility] ALT With P-5'-P [Catalytic activity/Vol] 17 U/L 7 - 45 U/L [facility] Anion gap [Moles/Vol] 13 mmol/L 10 - 2 0 mmol/L [facility] AST With P-5'-P [Catalytic activity/Vol] 21 U/L 9 - 39 U/L [facility] Bilirubin [Mass/Vol] 1.1 mg/dL 0.0 - 1 .2 mg/dL [facility] Calcium [Mass/Vol] 7.9 mg/dL Low 8.6 - 10. 6 mg/dL [facility] Chloride [Moles/Vol] 107 mmol/L 98 - 10 7 mmol/L [facility] CO2 [Moles/Vol] 24 mmol/L 21 - 32 mmol/L [facility] Creatinine [Mass/Vol] 1.00 mg/dL 0.50 - 1.05 mg/dL [facility] GFR/1.73 sq M.predicted among non-blacks MDRD (S/P/Bld) [Vol rate/Area] 74 mL/min/{1.73_m2} - PINF [facility] Glucose [Mass/Vol] 79 mg/dL 74 - 99 mg/dL [facility] Potassium [Moles/Vol] 4.4 mmol/L 3.5 - 5.3 mmol/L [facility] Protein [Mass/Vol] 5.4 g/dL Low 6.4 - 8.2 g/dL [facility] Sodium [Moles/Vol] 140 mmol/L 136 - 145 mmol/L [facility] Urea nitrogen [Mass/Vol] 13 mg/dL 6 - 23 mg/dL [facility] Magnesiumon 06-18-2023 Magnesium [Mass/Vol] 1.70 mg/dL 1.60 - 2.40 mg/dL [facility] Magnesium [Mass/Vol] 1.46 mg/dL Low 1.60 - 2.40 mg/dL [facility] Magnesium [Mass/Vol]on 06-17 Interpretation and review of laboratory results Normal [facility] No Panel Informationon 06-17 [facility] Interpretation and review of laboratory results Abnormal [facility] Renal function 2000 panelon 06-18-2023 Albumin BCP dye [Mass/Vol] 3.2 g/dL Low 3.4 - 5.0 g/dL [facility] Anion gap [Moles/Vol] 17 mmol/L 10 - 2 0 mmol/L [facility] Calcium [Mass/Vol] 9.0 mg/dL 8.6 - 10. 6 mg/dL [facility] Chloride [Moles/Vol] 101 mmol/L 98 - 10 7 mmol/L [facility] CO2 [Moles/Vol] 26 mmol/L 21 - 32 mmol/L [facility] Creatinine [Mass/Vol] 1.15 mg/dL High 0.50 - 1.05 mg/dL [facility] GFR/1.73 sq M.predicted among non-blacks MDRD (S/P/Bld) [Vol rate/Area] 62 mL/min/{1.73_m2} - PINF [facility] Glucose [Mass/Vol] 89 mg/dL 74 - 99 mg/dL [facility] Interpretation and review of laboratory results Abnormal [facility] Phosphate [Mass/Vol] 4.5 mg/dL 2.5 - 4 .9 mg/dL [facility] Potassium [Moles/Vol] 4.9 mmol/L 3.5 - 5.3 mmol/L [facility] Sodium [Moles/Vol] 139 mmol/L 136 - 145 mmol/L [facility] Urea nitrogen [Mass/Vol] 17 mg/dL 6 - 23 mg/dL [facility] XR Chest Single viewon 06-17 [facility] MM[facility] MM[facility] Work Phone: [facility] Work Phone: Radiology Study observation (narrative) [facility] Work Phone: CBC W Auto Differential pane l (Bld)on 06-17-2023 Basophils (Bld) [#/Vol] 0.04 10*3/uL [facility] Basophils/100 WBC (Bld) 0.7 % 0.0 - 2.0 % [facility] Eosinophils (Bld) [#/Vol] 0.07 10*3/uL [facility] Eosinophils/100 WBC (Bld) 1.2 % 0.0 - 6.0 % [facility] Erythrocyte distribution width (RBC) [Ratio] 16.7 % High 11.5 - 14.5 % [facility] Hematocrit (Bld) [Volume fraction] 43.4 % 36.0 - 46.0 % [facility] Hemoglobin (Bld) [Mass/Vol] 13.6 g/dL 12.0 - 16.0 g/dL [facility] Immature granulocytes (Bld) [#/Vol] 0.01 10*3/uL [facility] Immature granulocytes/100 WBC (Bld) 0.2 % 0.0 - 0.9 % [facility] Interpretation and review of laboratory results Abnormal [facility] Lymphocytes (Bld) [#/Vol] 1.15 10*3/uL Low [facility] Lymphocytes/100 WBC (Bld) 19.1 % 13.0 - 44.0 % [facility] MCH (RBC) [Entitic mass] 27.5 pg 26.0 - 34.0 pg [facility] MCHC (RBC) [Mass/Vol] 31.3 g/dL Low 32.0 - 36.0 g/dL [facility] MCV (RBC) [Entitic vol] 88 fL 80 - 100 fL [facility] Monocytes (Bld) [#/Vol] 0.60 10*3/uL [facility] Monocytes/100 WBC (Bld) 10.0 % 2.0 - 10.0 % [facility] Neutrophils (Bld) [#/Vol] 4.16 10*3/uL [facility] Neutrophils/100 WBC (Bld) 68.8 % 40.0 - 80.0 % [facility] Nucleated RBC/100 WBC (Bld) [Ratio] 0.0 % [facility] Platelets (Bld) [#/Vol] 157 10*3/uL [facility] RBC (Bld) [#/Vol] 4.95 10*6/uL [facility] WBC (Bld) [#/Vol] 6.0 10*3/uL [facility] Comprehensive metabolic 2000 panelon 06-17-2023 Albumin BCP dye [Mass/Vol] 3.2 g/dL Low 3.4 - 5.0 g/dL [facility] ALP [Catalytic activity/Vol] 365 U/L High 33 - 110 U/L [facility] ALT With P-5'-P [Catalytic activity/Vol] 20 U/L 7 - 45 U/L [facility] Anion gap [Moles/Vol] 15 mmol/L 10 - 2 0 mmol/L [facility] AST With P-5'-P [Catalytic activity/Vol] 26 U/L 9 - 39 U/L [facility] Bilirubin [Mass/Vol] 1.2 mg/dL 0.0 - 1 .2 mg/dL [facility] Calcium [Mass/Vol] 8.9 mg/dL 8.6 - 10. 6 mg/dL [facility] Chloride [Moles/Vol] 103 mmol/L 98 - 10 7 mmol/L [facility] CO2 [Moles/Vol] 23 mmol/L 21 - 32 mmol/L [facility] Creatinine [Mass/Vol] 1.14 mg/dL High 0.50 - 1.05 mg/dL [facility] GFR/1.73 sq M.predicted among non-blacks MDRD (S/P/Bld) [Vol rate/Area] 63 mL/min/{1.73_m2} - PINF [facility] Glucose [Mass/Vol] 117 mg/dL High 74 - 99 mg/dL [facility] Interpretation and review of laboratory results Abnormal [facility] Potassium [Moles/Vol] 5.0 mmol/L 3.5 - 5.3 mmol/L [facility] Protein [Mass/Vol] 6.4 g/dL 6.4 - 8.2 g/dL [facility] Sodium [Moles/Vol] 136 mmol/L 136 - 145 mmol/L [facility] Urea nitrogen [Mass/Vol] 14 mg/dL 6 - 23 mg/dL [facility] Extended Myositis Panelon Annotation comment [Interpretation] Narrative See Note [facility] Ej Ab Ql (S) Negative Negative [facility] Fibrillarin Ab Ql (S) Negative Negative [facility] Radha-1 extractable nuclear IgG Qn (S) 4 AU/mL 0 - 40 AU/mL [facility] Ku Ab Ql (S) Negative Negative [facility] MDA5 Ab Line blot Ql (S) Negative Negative [facility] Mi-2 Ab Ql (S) Negative Negative [facility] Mj Ab Line blot Ql (S) Negative Negative [facility] Nuclear Ab Ql (S) Negative Negative [facility] OJ Ab Ql (S) Negative Negative [facility] PL-12 Ab Ql (S) Negative Negative [facility] PL-7 Ab Ql (S) Negative Negative [facility] PM-SCL-100 Ab Line blot Ql (S) Negative Negative [facility] Signal Recognition Particle (SRP) Ab Ql Negative Negative [facility] Sjogrens syndrome-A extractable nuclear 60kD Ab Qn (S) 0 AU/mL 0 - 40 AU/mL [facility] Sjogrens syndrome-A extractable nuclear IgG Ql (S) 1 AU/mL 0 - 40 AU/mL [facility] SUMO-activating enzyme subunit 1 Ab Line blot Ql (S) Negative Negative [facility] TIF1-gamma Ab Line blot Ql (S) Negative Negative [facility] U1 small nuclear ribonucleoprotein IgG Qn (S) 2 [facility] Glucose Test strip manual (B ld) [Mass/Vol]on 06-17-2023 Glucose [Mass/Vol] 118 mg/dL High 74 - 99 mg/dL [facility] Interpretation and review of laboratory results Abnormal [facility] Magnesiumon 06-17-2023 Magnesium [Mass/Vol] 1.76 mg/dL 1.60 - 2.40 mg/dL [facility] Magnesium [Mass/Vol]on 06-16 Interpretation and review of laboratory results Normal [facility] No Panel Informationon 06-16 [facility] CBC W Auto Differential pane l (Bld)on 06-16-2023 Basophils (Bld) [#/Vol] 0.06 10*3/uL [facility] Basophils/100 WBC (Bld) 1.0 % 0.0 - 2.0 % [facility] Eosinophils (Bld) [#/Vol] 0.04 10*3/uL [facility] Eosinophils/100 WBC (Bld) 0.7 % 0.0 - 6.0 % [facility] Erythrocyte distribution width (RBC) [Ratio] 16.7 % High 11.5 - 14.5 % [facility] Hematocrit (Bld) [Volume fraction] 41.3 % 36.0 - 46.0 % [facility] Hemoglobin (Bld) [Mass/Vol] 12.9 g/dL 12.0 - 16.0 g/dL [facility] Immature granulocytes (Bld) [#/Vol] 0.02 10*3/uL [facility] Immature granulocytes/100 WBC (Bld) 0.3 % 0.0 - 0.9 % [facility] Interpretation and review of laboratory results Abnormal [facility] Lymphocytes (Bld) [#/Vol] 1.22 10*3/uL [facility] Lymphocytes/100 WBC (Bld) 21.3 % 13.0 - 44.0 % [facility] MCH (RBC) [Entitic mass] 27.8 pg 26.0 - 34.0 pg [facility] MCHC (RBC) [Mass/Vol] 31.2 g/dL Low 32.0 - 36.0 g/dL [facility] MCV (RBC) [Entitic vol] 89 fL 80 - 100 fL [facility] Monocytes (Bld) [#/Vol] 0.70 10*3/uL [facility] Monocytes/100 WBC (Bld) 12.2 % 2.0 - 10.0 % [facility] Neutrophils (Bld) [#/Vol] 3.70 10*3/uL [facility] Neutrophils/100 WBC (Bld) 64.5 % 40.0 - 80.0 % [facility] Nucleated RBC/100 WBC (Bld) [Ratio] 0.0 % [facility] Platelets (Bld) [#/Vol] 124 10*3/uL Low [facility] RBC (Bld) [#/Vol] 4.64 10*6/uL [facility] WBC (Bld) [#/Vol] 5.7 10*3/uL [facility] Comprehensive metabolic 2000 panelon 06-16-2023 Albumin BCP dye [Mass/Vol] 3.1 g/dL Low 3.4 - 5.0 g/dL [facility] ALP [Catalytic activity/Vol] 317 U/L High 33 - 110 U/L [facility] ALT With P-5'-P [Catalytic activity/Vol] 16 U/L 7 - 45 U/L [facility] Anion gap [Moles/Vol] 13 mmol/L 10 - 2 0 mmol/L [facility] AST With P-5'-P [Catalytic activity/Vol] 23 U/L 9 - 39 U/L [facility] Bilirubin [Mass/Vol] 1.0 mg/dL 0.0 - 1 .2 mg/dL [facility] Calcium [Mass/Vol] 8.9 mg/dL 8.6 - 10. 6 mg/dL [facility] Chloride [Moles/Vol] 101 mmol/L 98 - 10 7 mmol/L [facility] CO2 [Moles/Vol] 26 mmol/L 21 - 32 mmol/L [facility] Creatinine [Mass/Vol] 1.17 mg/dL High 0.50 - 1.05 mg/dL [facility] GFR/1.73 sq M.predicted among non-blacks MDRD (S/P/Bld) [Vol rate/Area] 61 mL/min/{1.73_m2} - PINF [facility] Glucose [Mass/Vol] 86 mg/dL 74 - 99 mg/dL [facility] Interpretation and review of laboratory results Abnormal [facility] Potassium [Moles/Vol] 5.1 mmol/L 3.5 - 5.3 mmol/L [facility] Protein [Mass/Vol] 6.2 g/dL Low 6.4 - 8.2 g/dL [facility] Sodium [Moles/Vol] 135 mmol/L Low 136 - 145 mmol/L [facility] Urea nitrogen [Mass/Vol] 14 mg/dL 6 - 23 mg/dL [facility] Glucose Test strip manual (B ld) [Mass/Vol]on 06-16-2023 Glucose [Mass/Vol] 145 mg/dL High 74 - 99 mg/dL [facility] Interpretation and review of laboratory results Abnormal [facility] Glucose [Mass/Vol] 174 mg/dL High 74 - 99 mg/dL [facility] Interpretation and review of laboratory results Abnormal [facility] Glucose [Mass/Vol] 106 mg/dL High 74 - 99 mg/dL [facility] Interpretation and review of laboratory results Abnormal [facility] Magnesiumon 06-16-2023 Magnesium [Mass/Vol] 1.91 mg/dL 1.60 - 2.40 mg/dL [facility] Magnesium [Mass/Vol]on 06-15 Interpretation and review of laboratory results Normal [facility] No Panel Informationon 06-15 [facility] US.doppler Lower extremity v ein - bilateralon 06-16-2023 [facility] MM[facility]AL [facility] Work Phone: [facility] Work Phone: XR Chest Single viewon 06-15 [facility] MM[facility] Work Phone: [facility] Work Phone: Radiology Study observation (narrative) [facility] Work Phone: Anti Pf4 Path ReviewOrdered By: Rufina Rick on 06-15-2023 PATH REVIEW-HIT ASSAY [facility] Work Phone: [facility] Work Phone: CBC W Auto Differential pane l (Bld)on 06-15-2023 Basophils (Bld) [#/Vol] 0.05 10*3/uL [facility] Basophils/100 WBC (Bld) 0.9 % 0.0 - 2.0 % [facility] Eosinophils (Bld) [#/Vol] 0.04 10*3/uL [facility] Eosinophils/100 WBC (Bld) 0.7 % 0.0 - 6.0 % [facility] Erythrocyte distribution width (RBC) [Ratio] 16.5 % High 11.5 - 14.5 % [facility] Hematocrit (Bld) [Volume fraction] 41.7 % 36.0 - 46.0 % [facility] Hemoglobin (Bld) [Mass/Vol] 13.1 g/dL 12.0 - 16.0 g/dL [facility] Immature granulocytes (Bld) [#/Vol] 0.02 10*3/uL [facility] Immature granulocytes/100 WBC (Bld) 0.4 % 0.0 - 0.9 % [facility] Interpretation and review of laboratory results Abnormal [facility] Lymphocytes (Bld) [#/Vol] 0.91 10*3/uL Low [facility] Lymphocytes/100 WBC (Bld) 17.0 % 13.0 - 44.0 % [facility] MCH (RBC) [Entitic mass] 27.8 pg 26.0 - 34.0 pg [facility] MCHC (RBC) [Mass/Vol] 31.4 g/dL Low 32.0 - 36.0 g/dL [facility] MCV (RBC) [Entitic vol] 88 fL 80 - 100 fL [facility] Monocytes (Bld) [#/Vol] 0.65 10*3/uL [facility] Monocytes/100 WBC (Bld) 12.1 % 2.0 - 10.0 % [facility] Neutrophils (Bld) [#/Vol] 3.68 10*3/uL [facility] Neutrophils/100 WBC (Bld) 68.9 % 40.0 - 80.0 % [facility] Nucleated RBC/100 WBC (Bld) [Ratio] 0.0 % [facility] Platelets (Bld) [#/Vol] 112 10*3/uL Low [facility] RBC (Bld) [#/Vol] 4.72 10*6/uL [facility] WBC (Bld) [#/Vol] 5.4 10*3/uL [facility] Comprehensive metabolic 2000 panelon 06-15-2023 Albumin BCP dye [Mass/Vol] 2.9 g/dL Low 3.4 - 5.0 g/dL [facility] ALP [Catalytic activity/Vol] 243 U/L High 33 - 110 U/L [facility] ALT With P-5'-P [Catalytic activity/Vol] 16 U/L 7 - 45 U/L [facility] Anion gap [Moles/Vol] 16 mmol/L 10 - 2 0 mmol/L [facility] AST With P-5'-P [Catalytic activity/Vol] 15 U/L 9 - 39 U/L [facility] Bilirubin [Mass/Vol] 1.0 mg/dL 0.0 - 1 .2 mg/dL [facility] Calcium [Mass/Vol] 8.2 mg/dL Low 8.6 - 10. 6 mg/dL [facility] Chloride [Moles/Vol] 105 mmol/L 98 - 10 7 mmol/L [facility] CO2 [Moles/Vol] 21 mmol/L 21 - 32 mmol/L [facility] Creatinine [Mass/Vol] 1.02 mg/dL 0.50 - 1.05 mg/dL [facility] GFR/1.73 sq M.predicted among non-blacks MDRD (S/P/Bld) [Vol rate/Area] 72 mL/min/{1.73_m2} - PINF [facility] Glucose [Mass/Vol] 102 mg/dL High 74 - 99 mg/dL [facility] Interpretation and review of laboratory results Abnormal [facility] Potassium [Moles/Vol] 5.0 mmol/L 3.5 - 5.3 mmol/L [facility] Protein [Mass/Vol] 5.5 g/dL Low 6.4 - 8.2 g/dL [facility] Sodium [Moles/Vol] 137 mmol/L 136 - 145 mmol/L [facility] Urea nitrogen [Mass/Vol] 12 mg/dL 6 - 23 mg/dL [facility] Glucose Test strip manual (B ld) [Mass/Vol]on 06-15-2023 Glucose [Mass/Vol] 171 mg/dL High 74 - 99 mg/dL [facility] Interpretation and review of laboratory results Abnormal [facility] Glucose [Mass/Vol] 154 mg/dL High 74 - 99 mg/dL [facility] Interpretation and review of laboratory results Abnormal [facility] Glucose [Mass/Vol] 115 mg/dL High 74 - 99 mg/dL [facility] Interpretation and review of laboratory results Abnormal [facility] Glucose [Mass/Vol] 87 mg/dL 74 - 99 mg/dL [facility] Interpretation and review of laboratory results Normal [facility] Heparin induced platelet Ab Qn (S)Ordered By: Wanda Wade on 06-15-2023 Interpretation and review of laboratory results Abnormal [facility] Interpretation for Anti-Platelet Factor 4 Antibody Positive Critically abnormal Negative [facility] Percent Inhibition 94 [facility] Serum and HI Dose Heparin 0.165 OD Units [facility] Serum and Platelet Factor 4 0.441 High NINF [facility] Magnesiumon 06-15-2023 Magnesium [Mass/Vol] 1.87 mg/dL 1.60 - 2.40 mg/dL [facility] [facility] [Mass/Vol]on 06-14 Interpretation and review of laboratory results Normal [facility] No Panel Informationon 06-14 [facility] US.doppler Lower extremity v ein - bilateralon 06-15-2023 Radiology Study observation (narrative) [facility] Work Phone: XR Chest Single viewon 06-14 [facility] Work Phone: [facility] Work Phone: Radiology Study observation (narrative) [facility] Work Phone: CBC W Auto Differential pane l (Bld)on 06-14-2023 Basophils (Bld) [#/Vol] 0.03 10*3/uL [facility] Basophils/100 WBC (Bld) 0.7 % 0.0 - 2.0 % [facility] Eosinophils (Bld) [#/Vol] 0.05 10*3/uL [facility] Eosinophils/100 WBC (Bld) 1.2 % 0.0 - 6.0 % [facility] Erythrocyte distribution width (RBC) [Ratio] 16.1 % High 11.5 - 14.5 % [facility] Hematocrit (Bld) [Volume fraction] 37.5 % 36.0 - 46.0 % [facility] Hemoglobin (Bld) [Mass/Vol] 12.6 g/dL 12.0 - 16.0 g/dL [facility] Immature granulocytes (Bld) [#/Vol] 0.02 10*3/uL [facility] Immature granulocytes/100 WBC (Bld) 0.5 % 0.0 - 0.9 % [facility] Interpretation and review of laboratory results Abnormal [facility] Lymphocytes (Bld) [#/Vol] 0.77 10*3/uL Low [facility] Lymphocytes/100 WBC (Bld) 19.2 % 13.0 - 44.0 % [facility] MCH (RBC) [Entitic mass] 28.1 pg 26.0 - 34.0 pg [facility] MCHC (RBC) [Mass/Vol] 33.6 g/dL 32.0 - 36.0 g/dL [facility] MCV (RBC) [Entitic vol] 84 fL 80 - 100 fL [facility] Monocytes (Bld) [#/Vol] 0.47 10*3/uL [facility] Monocytes/100 WBC (Bld) 11.7 % 2.0 - 10.0 % [facility] Neutrophils (Bld) [#/Vol] 2.68 10*3/uL [facility] Neutrophils/100 WBC (Bld) 66.7 % 40.0 - 80.0 % [facility] Nucleated RBC/100 WBC (Bld) [Ratio] 0.0 % [facility] Platelets (Bld) [#/Vol] 91 10*3/uL Low [facility] RBC (Bld) [#/Vol] 4.49 10*6/uL [facility] WBC (Bld) [#/Vol] 4.0 10*3/uL [facility] Comprehensive metabolic 2000 panelon 06-14-2023 Albumin BCP dye [Mass/Vol] 2.9 g/dL Low 3.4 - 5.0 g/dL [facility] ALP [Catalytic activity/Vol] 247 U/L High 33 - 110 U/L [facility] ALT With P-5'-P [Catalytic activity/Vol] 20 U/L 7 - 45 U/L [facility] Anion gap [Moles/Vol] 14 mmol/L 10 - 2 0 mmol/L [facility] AST With P-5'-P [Catalytic activity/Vol] 18 U/L 9 - 39 U/L [facility] Bilirubin [Mass/Vol] 0.9 mg/dL 0.0 - 1 .2 mg/dL [facility] Calcium [Mass/Vol] 8.3 mg/dL Low 8.6 - 10. 6 mg/dL [facility] Chloride [Moles/Vol] 102 mmol/L 98 - 10 7 mmol/L [facility] CO2 [Moles/Vol] 24 mmol/L 21 - 32 mmol/L [facility] Creatinine [Mass/Vol] 1.07 mg/dL High 0.50 - 1.05 mg/dL [facility] GFR/1.73 sq M.predicted among non-blacks MDRD (S/P/Bld) [Vol rate/Area] 68 mL/min/{1.73_m2} - PINF [facility] Glucose [Mass/Vol] 119 mg/dL High 74 - 99 mg/dL [facility] Interpretation and review of laboratory results Abnormal [facility] Potassium [Moles/Vol] 4.7 mmol/L 3.5 - 5.3 mmol/L [facility] Protein [Mass/Vol] 5.4 g/dL Low 6.4 - 8.2 g/dL [facility] Sodium [Moles/Vol] 135 mmol/L Low 136 - 145 mmol/L [facility] Urea nitrogen [Mass/Vol] 10 mg/dL 6 - 23 mg/dL [facility] Glucose Test strip manual (B ld) [Mass/Vol]on 06-14-2023 Glucose [Mass/Vol] 153 mg/dL High 74 - 99 mg/dL [facility] Interpretation and review of laboratory results Abnormal [facility] Glucose [Mass/Vol] 136 mg/dL High 74 - 99 mg/dL [facility] Interpretation and review of laboratory results Abnormal [facility] Glucose [Mass/Vol] 56 mg/dL Low 74 - 99 mg/dL [facility] Interpretation and review of laboratory results Abnormal [facility] Glucose [Mass/Vol] 68 mg/dL Low 74 - 99 mg/dL [facility] Interpretation and review of laboratory results Abnormal [facility] Glucose [Mass/Vol] 69 mg/dL Low 74 - 99 mg/dL [facility] Interpretation and review of laboratory results Abnormal [facility] Guidance for placement of tu nneled catheter in Chest Pleuraon 06-14-2023 [facility] Work Phone: Radiology Study observation (narrative) [facility] Work Phone: Guidance for placement of tu nneled catheter in Chest PleuraOrdered By: Nicolas Cortez on 06-14-2023 [facility] Work Phone: Magnesiumon 06-14-2023 Magnesium [Mass/Vol] 1.65 mg/dL 1.60 - 2.40 mg/dL [facility] Magnesium [Mass/Vol]on 06-13 Interpretation and review of laboratory results Normal [facility] No Panel Informationon 06-13 [facility] XR Chest Single viewon 06-13 [facility] Work Phone: Radiology Study observation (narrative) [facility] Work Phone: XR Chest Single viewOrdered By: Kin Quigley on 06-14-2023 [facility] Work Phone: CBC W Auto Differential pane l (Bld)on 06-13-2023 Basophils (Bld) [#/Vol] 0.03 10*3/uL [facility] Basophils/100 WBC (Bld) 0.9 % 0.0 - 2.0 % [facility] Eosinophils (Bld) [#/Vol] 0.07 10*3/uL [facility] Eosinophils/100 WBC (Bld) 2.0 % 0.0 - 6.0 % [facility] Erythrocyte distribution width (RBC) [Ratio] 16.4 % High 11.5 - 14.5 % [facility] Hematocrit (Bld) [Volume fraction] 42.0 % 36.0 - 46.0 % [facility] Hemoglobin (Bld) [Mass/Vol] 13.2 g/dL 12.0 - 16.0 g/dL [facility] Immature granulocytes (Bld) [#/Vol] 0.02 10*3/uL [facility] Immature granulocytes/100 WBC (Bld) 0.6 % 0.0 - 0.9 % [facility] Interpretation and review of laboratory results Abnormal [facility] Lymphocytes (Bld) [#/Vol] 0.83 10*3/uL Low [facility] Lymphocytes/100 WBC (Bld) 23.6 % 13.0 - 44.0 % [facility] MCH (RBC) [Entitic mass] 27.7 pg 26.0 - 34.0 pg [facility] MCHC (RBC) [Mass/Vol] 31.4 g/dL Low 32.0 - 36.0 g/dL [facility] MCV (RBC) [Entitic vol] 88 fL 80 - 100 fL [facility] Monocytes (Bld) [#/Vol] 0.46 10*3/uL [facility] Monocytes/100 WBC (Bld) 13.1 % 2.0 - 10.0 % [facility] Neutrophils (Bld) [#/Vol] 2.11 10*3/uL [facility] Neutrophils/100 WBC (Bld) 59.8 % 40.0 - 80.0 % [facility] Nucleated RBC/100 WBC (Bld) [Ratio] 0.0 % [facility] Platelets (Bld) [#/Vol] 103 10*3/uL Low [facility] RBC (Bld) [#/Vol] 4.76 10*6/uL [facility] WBC (Bld) [#/Vol] 3.5 10*3/uL [facility] Comprehensive metabolic 2000 panelon 06-13-2023 Albumin BCP dye [Mass/Vol] 3.0 g/dL Low 3.4 - 5.0 g/dL [facility] ALP [Catalytic activity/Vol] 238 U/L High 33 - 110 U/L [facility] ALT With P-5'-P [Catalytic activity/Vol] 21 U/L 7 - 45 U/L [facility] Anion gap [Moles/Vol] 8 mmol/L Low 10 - 2 0 mmol/L [facility] AST With P-5'-P [Catalytic activity/Vol] 20 U/L 9 - 39 U/L [facility] Bilirubin [Mass/Vol] 1.0 mg/dL 0.0 - 1 .2 mg/dL [facility] Calcium [Mass/Vol] 8.6 mg/dL 8.6 - 10. 6 mg/dL [facility] Chloride [Moles/Vol] 105 mmol/L 98 - 10 7 mmol/L [facility] CO2 [Moles/Vol] 29 mmol/L 21 - 32 mmol/L [facility] Creatinine [Mass/Vol] 1.03 mg/dL 0.50 - 1.05 mg/dL [facility] GFR/1.73 sq M.predicted among non-blacks MDRD (S/P/Bld) [Vol rate/Area] 71 mL/min/{1.73_m2} - PINF [facility] Glucose [Mass/Vol] 73 mg/dL Low 74 - 99 mg/dL [facility] Interpretation and review of laboratory results Abnormal [facility] Potassium [Moles/Vol] 5.0 mmol/L 3.5 - 5.3 mmol/L [facility] Protein [Mass/Vol] 5.6 g/dL Low 6.4 - 8.2 g/dL [facility] Sodium [Moles/Vol] 137 mmol/L 136 - 145 mmol/L [facility] Urea nitrogen [Mass/Vol] 9 mg/dL 6 - 23 mg/dL [facility] Glucose Test strip manual (B ld) [Mass/Vol]on 06-13-2023 Glucose [Mass/Vol] 92 mg/dL 74 - 99 mg/dL [facility] Interpretation and review of laboratory results Normal [facility] Glucose [Mass/Vol] 163 mg/dL High 74 - 99 mg/dL [facility] Interpretation and review of laboratory results Abnormal [facility] Glucose [Mass/Vol] 104 mg/dL High 74 - 99 mg/dL [facility] Interpretation and review of laboratory results Abnormal [facility] Glucose [Mass/Vol] 74 mg/dL 74 - 99 mg/dL [facility] Interpretation and review of laboratory results Normal [facility] Magnesiumon 06-13-2023 Magnesium [Mass/Vol] 1.82 mg/dL 1.60 - 2.40 mg/dL [facility] Magnesium [Mass/Vol]on 06-12 Interpretation and review of laboratory results Normal [facility] PT and aPTT panel Coag (PPP) on 06-13-2023 aPTT Coag (PPP) [Time] 37 s [facility] INR Coag (PPP) [Relative time] 1.1 {INR} 0.9 - 1.1 [facility] Interpretation and review of laboratory results Abnormal [facility] PT Coag (PPP) [Time] 12.9 s High [facility] XR Chest Single viewon 06-12 [facility] Work Phone: [facility] Work Phone: Radiology Study observation (narrative) [facility] Work Phone: CBC W Auto Differential pane l (Bld)on 06-12-2023 Basophils (Bld) [#/Vol] 0.02 10*3/uL [facility] Basophils/100 WBC (Bld) 0.4 % 0.0 - 2.0 % [facility] Eosinophils (Bld) [#/Vol] 0.06 10*3/uL [facility] Eosinophils/100 WBC (Bld) 1.2 % 0.0 - 6.0 % [facility] Erythrocyte distribution width (RBC) [Ratio] 16.3 % High 11.5 - 14.5 % [facility] Hematocrit (Bld) [Volume fraction] 38.4 % 36.0 - 46.0 % [facility] Hemoglobin (Bld) [Mass/Vol] 12.9 g/dL 12.0 - 16.0 g/dL [facility] Immature granulocytes (Bld) [#/Vol] 0.02 10*3/uL [facility] Immature granulocytes/100 WBC (Bld) 0.4 % 0.0 - 0.9 % [facility] Interpretation and review of laboratory results Abnormal [facility] Lymphocytes (Bld) [#/Vol] 0.78 10*3/uL Low [facility] Lymphocytes/100 WBC (Bld) 16.0 % 13.0 - 44.0 % [facility] MCH (RBC) [Entitic mass] 27.7 pg 26.0 - 34.0 pg [facility] MCHC (RBC) [Mass/Vol] 33.6 g/dL 32.0 - 36.0 g/dL [facility] MCV (RBC) [Entitic vol] 83 fL 80 - 100 fL [facility] Monocytes (Bld) [#/Vol] 0.64 10*3/uL [facility] Monocytes/100 WBC (Bld) 13.2 % 2.0 - 10.0 % [facility] Neutrophils (Bld) [#/Vol] 3.34 10*3/uL [facility] Neutrophils/100 WBC (Bld) 68.8 % 40.0 - 80.0 % [facility] Nucleated RBC/100 WBC (Bld) [Ratio] 0.0 % [facility] Platelets (Bld) [#/Vol] 111 10*3/uL Low [facility] RBC (Bld) [#/Vol] 4.65 10*6/uL [facility] WBC (Bld) [#/Vol] 4.9 10*3/uL [facility] Comprehensive metabolic 2000 panelon 06-12-2023 Albumin BCP dye [Mass/Vol] 2.8 g/dL Low 3.4 - 5.0 g/dL [facility] ALP [Catalytic activity/Vol] 217 U/L High 33 - 110 U/L [facility] ALT With P-5'-P [Catalytic activity/Vol] 24 U/L 7 - 45 U/L [facility] Anion gap [Moles/Vol] 12 mmol/L 10 - 2 0 mmol/L [facility] AST With P-5'-P [Catalytic activity/Vol] 24 U/L 9 - 39 U/L [facility] Bilirubin [Mass/Vol] 1.0 mg/dL 0.0 - 1 .2 mg/dL [facility] Calcium [Mass/Vol] 8.4 mg/dL Low 8.6 - 10. 6 mg/dL [facility] Chloride [Moles/Vol] 103 mmol/L 98 - 10 7 mmol/L [facility] CO2 [Moles/Vol] 25 mmol/L 21 - 32 mmol/L [facility] Creatinine [Mass/Vol] 0.96 mg/dL 0.50 - 1.05 mg/dL [facility] GFR/1.73 sq M.predicted among non-blacks MDRD (S/P/Bld) [Vol rate/Area] 77 mL/min/{1.73_m2} - PINF [facility] Glucose [Mass/Vol] 112 mg/dL High 74 - 99 mg/dL [facility] Interpretation and review of laboratory results Abnormal [facility] Potassium [Moles/Vol] 4.9 mmol/L 3.5 - 5.3 mmol/L [facility] Protein [Mass/Vol] 5.2 g/dL Low 6.4 - 8.2 g/dL [facility] Sodium [Moles/Vol] 135 mmol/L Low 136 - 145 mmol/L [facility] Urea nitrogen [Mass/Vol] 9 mg/dL 6 - 23 mg/dL [facility] Gas panel (BldMV)on 06-12-19 24 Anion gap 4 (BldMV) [Moles/Vol] 8 Low [facility] Base excess Calc (BldMV) [Moles/Vol] -0.8 mmol/L -2.0 - 3.0 mmol/L [facility] Calcium.ionized (BldMV) [Moles/Vol] 1.15 mmol/L 1.10 - 1.33 mmol/L [facility] Chloride [Moles/Vol] 104 mmol/L 98 - 10 7 mmol/L [facility] CO2 (BldMV) [Partial pressure] 44 [facility] Glucose [Mass/Vol] 105 mg/dL High 74 - 99 mg/dL [facility] HCO3 (BldMV) [Moles/Vol] 24.9 mmol/L 22.0 - 26.0 mmol/L [facility] Hematocrit Est (Bld) [Volume fraction] 40.0 % 36.0 - 46.0 % [facility] Hemoglobin (Bld) [Mass/Vol] 13.3 g/dL 12.0 - 16.0 g/dL [facility] Inhaled oxygen concentration 36 % [facility] Interpretation and review of laboratory results Abnormal [facility] Lactate (BldMV) [Moles/Vol] 1.0 mmol/L 0.4 - 2.0 mmol/L [facility] Oxygen (BldMV) [Partial pressure] 43 [facility] Oxygen saturation in Mixed venous blood 67 % 45 - 75 % [facility] Oxyhemoglobin (BldMV) [Mass fraction] 65.4 % 45.0 - 75.0 % [facility] pH (BldMV) 7.36 pH 7.33 - 7.43 pH [facility] Potassium (BldMV) [Moles/Vol] 4.9 mmol/L 3.5 - 5.3 mmol/L [facility] Sodium (BldMV) [Moles/Vol] 132 mmol/L Low 136 - 145 mmol/L [facility] Anion gap 4 (BldMV) [Moles/Vol] 9 Low [facility] Base excess Calc (BldMV) [Moles/Vol] -0.5 mmol/L -2.0 - 3.0 mmol/L [facility] Calcium.ionized (BldMV) [Moles/Vol] 1.16 mmol/L 1.10 - 1.33 mmol/L [facility] Chloride [Moles/Vol] 103 mmol/L 98 - 10 7 mmol/L [facility] CO2 (BldMV) [Partial pressure] 39 Low [facility] Glucose [Mass/Vol] 104 mg/dL High 74 - 99 mg/dL [facility] HCO3 (BldMV) [Moles/Vol] 24.2 mmol/L 22.0 - 26.0 mmol/L [facility] Hematocrit Est (Bld) [Volume fraction] 41.0 % 36.0 - 46.0 % [facility] Hemoglobin (Bld) [Mass/Vol] 13.6 g/dL 12.0 - 16.0 g/dL [facility] Inhaled oxygen concentration 28 % [facility] Interpretation and review of laboratory results Abnormal [facility] Lactate (BldMV) [Moles/Vol] 1.6 mmol/L 0.4 - 2.0 mmol/L [facility] Oxygen (BldMV) [Partial pressure] 44 [facility] Oxygen saturation in Mixed venous blood 68 % 45 - 75 % [facility] Oxyhemoglobin (BldMV) [Mass fraction] 65.7 % 45.0 - 75.0 % [facility] pH (BldMV) 7.40 pH 7.33 - 7.43 pH [facility] Potassium (BldMV) [Moles/Vol] 4.6 mmol/L 3.5 - 5.3 mmol/L [facility] Sodium (BldMV) [Moles/Vol] 132 mmol/L Low 136 - 145 mmol/L [facility] Base excess Calc (BldMV) [Moles/Vol] -0.8 mmol/L -2.0 - 3.0 mmol/L [facility] CO2 (BldMV) [Partial pressure] 41 [facility] HCO3 (BldMV) [Moles/Vol] 24.3 mmol/L 22.0 - 26.0 mmol/L [facility] Inhaled oxygen concentration 28 % [facility] Interpretation and review of laboratory results Abnormal [facility] Oxygen (BldMV) [Partial pressure] 34 Low [facility] Oxygen saturation in Mixed venous blood 50 % 45 - 75 % [facility] Oxyhemoglobin (BldMV) [Mass fraction] 49.0 % 45.0 - 75.0 % [facility] pH (BldMV) 7.38 pH 7.33 - 7.43 pH [facility] Glucose Test strip manual (B ld) [Mass/Vol]on 06-12-2023 Glucose [Mass/Vol] 86 mg/dL 74 - 99 mg/dL [facility] Interpretation and review of laboratory results Normal [facility] Glucose [Mass/Vol] 156 mg/dL High 74 - 99 mg/dL [facility] Interpretation and review of laboratory results Abnormal [facility] Glucose [Mass/Vol] 118 mg/dL High 74 - 99 mg/dL [facility] Interpretation and review of laboratory results Abnormal [facility] Magnesiumon 06-12-2023 Magnesium [Mass/Vol] 1.79 mg/dL 1.60 - 2.40 mg/dL [facility] Magnesium [Mass/Vol]on 06-11 Interpretation and review of laboratory results Normal [facility] No Panel Informationon 06-11 [facility] XR Chest Single viewon 06-11 [facility] MM[facility]AL [facility] Work Phone: [facility] Work Phone: Radiology Study observation (narrative) [facility] Work Phone: ECG 12 LeadOrdered By: Javier Henriquez on 06-11-2023 Atrial Rate 72 BPM [facility] Work Phone: P [place] 52 degrees [facility] Work Phone: P Offset 186 ms [facility] Work Phone: P Onset 126 ms [facility] Work Phone: [place] Interval 178 ms [facility] Work Phone: Q Onset 215 ms [facility] Work Phone: QRS Count 12 beats [facility] Work Phone: QRS Duration 100 ms [facility] Work Phone: QT Interval 372 ms [facility] Work Phone: QTC Calculation(Bazett) 407 ms [facility] Work Phone: QTC [place] 395 ms [facility] Work Phone: R [place] 157 degrees [facility] Work Phone: T [place] -27 degrees [facility] Work Phone: T Offset 401 ms [facility] Work Phone: Ventricular Rate 72 BPM [facility] Work Phone: [facility] Work Phone: ECG 12 Leadon 06-11-2023 [facility] Work Phone: Gas panel (BldMV)on 06-11-19 24 Anion gap 4 (BldMV) [Moles/Vol] 10 [facility] Base excess Calc (BldMV) [Moles/Vol] -2.2 mmol/L Low -2.0 - 3.0 mmol/L [facility] Calcium.ionized (BldMV) [Moles/Vol] 1.14 mmol/L 1.10 - 1.33 mmol/L [facility] Chloride [Moles/Vol] 104 mmol/L 98 - 10 7 mmol/L [facility] CO2 (BldMV) [Partial pressure] 37 Low [facility] Glucose [Mass/Vol] 147 mg/dL High 74 - 99 mg/dL [facility] HCO3 (BldMV) [Moles/Vol] 22.4 mmol/L 22.0 - 26.0 mmol/L [facility] Hematocrit Est (Bld) [Volume fraction] 40.0 % 36.0 - 46.0 % [facility] Hemoglobin (Bld) [Mass/Vol] 13.2 g/dL 12.0 - 16.0 g/dL [facility] Inhaled oxygen concentration 28 % [facility] Interpretation and review of laboratory results Abnormal [facility] Lactate (BldMV) [Moles/Vol] 1.7 mmol/L 0.4 - 2.0 mmol/L [facility] Oxygen (BldMV) [Partial pressure] 43 [facility] Oxygen saturation in Mixed venous blood 71 % 45 - 75 % [facility] Oxyhemoglobin (BldMV) [Mass fraction] 69.6 % 45.0 - 75.0 % [facility] pH (BldMV) 7.39 pH 7.33 - 7.43 pH [facility] Potassium (BldMV) [Moles/Vol] 4.4 mmol/L 3.5 - 5.3 mmol/L [facility] Sodium (BldMV) [Moles/Vol] 132 mmol/L Low 136 - 145 mmol/L [facility] Glucose Test strip manual (B ld) [Mass/Vol]on 06-11-2023 Glucose [Mass/Vol] 120 mg/dL High 74 - 99 mg/dL [facility] Interpretation and review of laboratory results Abnormal [facility] Glucose [Mass/Vol] 132 mg/dL High 74 - 99 mg/dL [facility] Interpretation and review of laboratory results Abnormal [facility] Glucose [Mass/Vol] 105 mg/dL High 74 - 99 mg/dL [facility] Interpretation and review of laboratory results Abnormal [facility] XR Chest Single viewon 06-10 [facility] MM[facility] Work Phone: Radiology Study observation (narrative) [facility] Work Phone: XR Chest Single viewOrdered By: Cuco Lyons on 06-11-2023 [facility] Work Phone: Acute hepatitis 2000 panel ( S)on 06-06-2023 HAV IgM Ql (S) Non-Reactive Nonreactive [facility] Comment on above: Biotin interference may cause falsely decreased results. Patients taking a Biotin dose of up to 5 mg/day should refrain from taking Biotin for 24 hours before sample collection. Providers may contact their local laboratory for further information. HBV core IgM Ql (S) Non-Reactive Nonreactive [facility] Comment on above: Results from patient s taking biotin supplements or receiving high-dose biotin therapy should be interpreted with caution due to possible interference with this test. Providers may contact their local laboratory for further information. HBV surface Ag IA Ql Non-Reactive Nonreactive [facility] Comment on above: Biotin interference may cause falsely decreased results. Patients taking a Biotin dose of up to 5 mg/day should refrain from taking Biotin for 24 hours before sample collection. Providers may contact their local laboratory for further information. HCV Ab Ql (S) Reactive Abnormal Nonreactive [facility] Comment on above: HCV antibody detecte d. HCV RNA PCR has been ordered to evaluate the possibility of a current infection. Results from patients taking biotin supplements or receiving high-dose biotin therapy should be interpreted with caution due to possible interference with this test. Providers may contact their local laboratory for further information. Result has been updated to reportable. Interpretation and review of laboratory results Abnormal [facility] C-reactive proteinon 024 CRP [Mass/Vol] 12.10 mg/dL High NINF - 1.00 mg/dL [facility] CBC panel Auto (Bld)on 06-05 Erythrocyte distribution width (RBC) [Ratio] 15.9 % High 11.5 - 14.5 % [facility] Hematocrit (Bld) [Volume fraction] 46.4 % High 36.0 - 46.0 % [facility] Hemoglobin (Bld) [Mass/Vol] 14.7 g/dL 12.0 - 16.0 g/dL [facility] Interpretation and review of laboratory results Abnormal [facility] MCH (RBC) [Entitic mass] 27.9 pg 26.0 - 34.0 pg [facility] MCHC (RBC) [Mass/Vol] 31.7 g/dL Low 32.0 - 36.0 g/dL [facility] MCV (RBC) [Entitic vol] 88 fL 80 - 100 fL [facility] Nucleated RBC/100 WBC (Bld) [Ratio] 0.0 % [facility] Platelets (Bld) [#/Vol] 235 10*3/uL [facility] RBC (Bld) [#/Vol] 5.26 10*6/uL High [facility] WBC (Bld) [#/Vol] 9.3 10*3/uL [facility] CRP [Mass/Vol]on 06-06-2023 Interpretation and review of laboratory results Abnormal [facility] Comprehensive metabolic 2000 panelon 06-06-2023 Albumin BCP dye [Mass/Vol] 2.9 g/dL Low 3.4 - 5.0 g/dL [facility] ALP [Catalytic activity/Vol] 290 U/L High 33 - 110 U/L [facility] ALT With P-5'-P [Catalytic activity/Vol] 53 U/L High 7 - 45 U/L [facility] Comment on above: Patients treated wit h Sulfasalazine may generate falsely decreased results for ALT. Anion gap [Moles/Vol] 15 mmol/L 10 - 2 0 mmol/L [facility] AST With P-5'-P [Catalytic activity/Vol] 87 U/L High 9 - 39 U/L [facility] Bilirubin [Mass/Vol] 2.0 mg/dL High 0.0 - 1 .2 mg/dL [facility] Calcium [Mass/Vol] 8.3 mg/dL Low 8.6 - 10. 3 mg/dL [facility] Chloride [Moles/Vol] 99 mmol/L 98 - 10 7 mmol/L [facility] CO2 [Moles/Vol] 21 mmol/L 21 - 32 mmol/L [facility] Creatinine [Mass/Vol] 1.66 mg/dL High 0.50 - 1.05 mg/dL [facility] GFR/1.73 sq M.predicted among non-blacks MDRD (S/P/Bld) [Vol rate/Area] 40 mL/min/{1.73_m2} Low - PINF [facility] Comment on above: Calculations of raul mated GFR are performed using the 2020 CKD-EPI Study Refit equation without the race variable for the IDMS-Traceable creatinine methods. https://jasn.asnjournals.org/content/early//ASN.940006 4171 Glucose [Mass/Vol] 133 mg/dL High 74 - 99 mg/dL [facility] Potassium [Moles/Vol] 4.7 mmol/L 3.5 - 5.3 mmol/L [facility] Protein [Mass/Vol] 5.8 g/dL Low 6.4 - 8.2 g/dL [facility] Sodium [Moles/Vol] 130 mmol/L Low 136 - 145 mmol/L [facility] Urea nitrogen [Mass/Vol] 29 mg/dL High 6 - 23 mg/dL [facility] Drug Screen, Urineon 024 Amphetamines Screen Ql (U) Negative Presumptive Negative [facility] Comment on above: CUTOFF LEVEL: 500 NG /ML Cross-reactivity has been reported with high concentrations of the following drugs: buproprion, chloroquine, chlorpromazine, ephedrine, mephentermine, fenfluramine, phentermine, phenylpropanolamine, pseudoephedrine, and propranolol. Barbiturates Screen Ql (U) Negative Presumptive Negative [facility] Comment on above: CUTOFF LEVEL: 200 NG /ML Benzodiazepines Ql (U) Negative Presumptive Negative [facility] Comment on above: CUTOFF LEVEL: 200 NG /ML Benzoylecgonine Screen Ql (U) Negative Presumptive Negative [facility] Comment on above: CUTOFF LEVEL: 150 NG /ML Cannabinoids Screen Ql (U) Positive Abnormal Presumptive Negative [facility] Comment on above: CUTOFF LEVEL: 50 NG/ ML fentaNYL+Norfentanyl Screen Ql (U) Negative Presumptive Negative [facility] Comment on above: CUTOFF LEVEL: 5 NG/M L Interpretation and review of laboratory results Abnormal [facility] Methadone Screen Ql (U) Negative Presumptive Negative [facility] Comment on above: CUTOFF LEVEL: 150 NG /ML The metabolite F-irjql-vjsvhcleeaqbzc (LAAM) is not detected by this method in concentrations that would be found in the urine of patients on LAAM therapy. Opiates Screen Ql (U) Positive Abnormal Presum ptive Negative [facility] Comment on above: CUTOFF LEVEL: 300 NG /ML The opiate screen does not detect fentanyl, meperidine, or tramadol. Oxycodone is not consistently detected (refer to Oxycodone Screen, Urine result). oxyCODONE+oxyMORphone Screen Ql (U) Negative Presumptive Negative [facility] Comment on above: CUTOFF LEVEL: 100 NG /ML This test will accurately detect both oxycodone and oxymorphone. Phencyclidine Ql (U) Negative Presump tive Negative [facility] Comment on above: CUTOFF LEVEL: 25 NG/ ML Cross-reactivity has been reported with dextromethorphan. Drug screen results are presumptive and should not be used to assess compliance with prescribed medication. Contact the performing [facility] laboratory to add-on definitive confirmatory testing if clinically indicated. Toxicology screening results are reported qualitatively. The concentration must be greater than or equal to the cutoff to be reported as positive. The concentration at which the screening test can detect an individual drug or metabolite varies. The absence of expected drug(s) and/or drug metabolite(s) may indicate non-compliance, inappropriate timing of specimen collection relative to drug administration, poor drug absorption, diluted/adulterated urine, or limitations of testing. For medical purposes only; not valid for forensic use. Interpretive questions should be directed to the laboratory medical directors. [facility] HbA1c (Bld) [Mass fraction]o n 06-06-2023 Average glucose Estimated from glycated hemoglobin (Bld) [Mass/Vol] 146 mg/dL Not Established [facility] Interpretation and review of laboratory results Abnormal [facility] Diagnosis of Diabetes-Adults Non-Diabetic: < or = 5.6% Increased risk for developing diabetes: 5.7-6.4% Diagnostic of diabetes: > or = 6.5% Monitoring of Diabetes Age (y).................... ... Therapeutic Goal (%) Adults: >18.................... .....<7.0 Pediatrics: 13-18.................. .<7.5 Pediatrics: 7-12................... .<8.0 Pediatrics: 0-6.................... . 7.5-8.5 [place] Diabetes Association. Diabetes Care 33(S1), Mar 2009 [facility] Hemoglobin A1con 06-06-2023 HbA1c (Bld) [Mass fraction] 6.7 % High see below [facility] No Panel Informationon 06-05 Left tibia and fibul a: 1. Prominent shallow soft tissue ulcer in the anterior aspect of the distal tibia. Findings suggesting diffuse cellulitis of the lower leg involving the posterior/medial aspect. 2. No evidence of abscess or osteomyelitis. Left forefoot: 1. Diffuse cellulitis of the forefoot without abscess or osteomyelitis. Signed by: Esmer Medrano 06/06/2023 4:48 PM Dictation workstation: [id number] [facility] Interpreted By: Esmer Medrano, STUDY: MRI of the left tibia and fibula without contrast. MRI of the left forefoot with out IV contrast INDICATION: Signs/Symptoms:r/o osteo COMPARISON: Left foot radiographs dated 06/05/2023. ACCESSION NUMBER(S): [id number]; [id number] ORDERING CLINICIAN: JANIA WINSLOW TECHNIQUE: Multiplanar multisequence MRI of the left forefoot was performed without intravenous contrast. Multiplanar multisequence MRI of the left tibia and fibula was performed without intravenous contrast. FINDINGS: Left Tibia and Fibula: OSSEOUS STRUCTURES: No fracture or dislocation is evident. Bone marrow signal intensity is within normal limits. No marrow signal abnormality of the tibia and fibula including the region underlying the ulcer described below. MUSCLES, TENDONS, AND LIGAMENTS: The visualized muscles and tendons are intact without loss of normal muscle morphology, intramuscular fluid collections, or fascial plane fluid. Ligaments are not well assessed on this examination. JOINTS: No joint effusion is evident within the knee or ankle joints. SOFT TISSUES: There is a shallow soft tissue ulcer in the anterior aspect of the distal tibia measuring a proximally at least 3.5 cm in transverse and 6.1 cm in craniocaudal dimensions. There is diffuse reticular pattern fluid infiltration of the subcutaneous fat of the lower leg. There is mild skin thickening in the posterior and posteromedial aspect of the lower leg. No confluent fluid signal abnormality to suggest abscess formation. Left forefoot: Soft tissues: Mild diffuse skin thickening with subcutaneous fluid compatible with reported history of cellulitis. No confluent fluid signal intensity structure to suggest abscess. Ligaments: The Lisfranc ligament is intact. There is no evidence of plantar plate injury. Tendons: The visualized flexor and extensor tendons are intact. No evidence of tenosynovitis. Muscles: Intact. No evidence of muscular atrophy or edema. Bones: No acute fracture or aggressive osseous lesion. Miscellaneous: The visualized plantar fascia appears within normal limits. No evidence of a Puga's neuroma. The visualized soft tissues appear within normal limits. MMODAL Esmer Medrano MD - 06/06/2023 Interpreted By: Esmer Medrano, STUDY: MRI of the left tibia and fibula without contrast. MRI of the left forefoot with out IV contrast INDICATION: Signs/Symptoms:r/o osteo COMPARISON: Left foot radiographs dated 06/05/2023. ACCESSION NUMBER(S): [id number]; [id number] ORDERING CLINICIAN: JANIA WINSLOW TECHNIQUE: Multiplanar multisequence MRI of the left forefoot was performed without intravenous contrast. Multiplanar multisequence MRI of the left tibia and fibula was performed without intravenous contrast. FINDINGS: Left Tibia and Fibula: OSSEOUS STRUCTURES: No fracture or dislocation is evident. Bone marrow signal intensity is within normal limits. No marrow signal abnormality of the tibia and fibula including the region underlying the ulcer described below. MUSCLES, TENDONS, AND LIGAMENTS: The visualized muscles and tendons are intact without loss of normal muscle morphology, intramuscular fluid collections, or fascial plane fluid. Ligaments are not well assessed on this examination. JOINTS: No joint effusion is evident within the knee or ankle joints. SOFT TISSUES: There is a shallow soft tissue ulcer in the anterior aspect of the distal tibia measuring a proximally at least 3.5 cm in transverse and 6.1 cm in craniocaudal dimensions. There is diffuse reticular pattern fluid infiltration of the subcutaneous fat of the lower leg. There is mild skin thickening in the posterior and posteromedial aspect of the lower leg. No confluent fluid signal abnormality to suggest abscess formation. Left forefoot: Soft tissues: Mild diffuse skin thickening with subcutaneous fluid compatible with reported history of cellulitis. No confluent fluid signal intensity structure to suggest abscess. Ligaments: The Lisfranc ligament is intact. There is no evidence of plantar plate injury. Tendons: The visualized flexor and extensor tendons are intact. No evidence of tenosynovitis. Muscles: Intact. No evidence of muscular atrophy or edema. Bones: No acute fracture or aggressive osseous lesion. Miscellaneous: The visualized plantar fascia appears within normal limits. No evidence of a Puga's neuroma. The visualized soft tissues appear within normal limits. IMPRESSION: Left tibia and fibula: 1. Prominent shallow soft tissue ulcer in the anterior aspect of the distal tibia. Findings suggesting diffuse cellulitis of the lower leg involving the posterior/medial aspect. 2. No evidence of abscess or osteomyelitis. Left forefoot: 1. Diffuse cellulitis of the forefoot without abscess or osteomyelitis. Signed by: Esmer Medrano 06/06/2023 4:48 PM Dictation workstation: [id number] [facility] Work Phone: Radiology Study observation (narrative) [facility] Work Phone: Interpretation and review of laboratory results Abnormal [facility] No Panel InformationOrdered By: Esmer Medrano on 06-06-2023 [facility] Work Phone: US Heart TransthoracicOrdere d By: Emre Silverio on 06-06-2023 Aortic Valve Area by Continuity of Peak Velocity 2.96 cm2 [facility] Work Phone: Aortic Valve Area by Continuity of VTI 2.60 cm2 [facility] Work Phone: AV mn grad 2.0 mmHg [facility] Work Phone: AV pk grad 3.4 mmHg [facility] Work Phone: AV pk edita 0.92 m/s [facility] Work Phone: LA vol index A/L 16.3 ml/m2 [facility] Work Phone: LV A4C EF 74.1 [facility] Work Phone: LV biplane EF 58 % [facility] Work Phone: LVIDd 2.75 cm [facility] Work Phone: LVOT diam 2.20 cm [facility] Work Phone: RVSP 85.4 mmHg [facility] Work Phone: [facility] Work Phone: [place] [address] [phone], TRANSTHORACIC ECHOCARDIOGRAM REPORT Patient Name: JAYNA SMITH Reading Physician: [id number] Emre Silverio MD Study Date: 06/06/2023 Ordering Provider: [id number] MELISSA R ESQUIVEL MRN/PID: [id number] Fellow: Nurse: Rosalia Galvin RN Date of /Age: 8 1985 / 37 years [employer] School [employer] Teacher: Monty Martin [facility] Gender: F Additional Staff: Height: 170.18 cm Admit Date: 06/05/2023 Weight: 80.74 kg Admission Status: Inpatient - Routine BSA / BMI: 1.92 m2 / 27.88 kg/m2 Department Location: [address] Blood Pressure: 128 /91 mmHg Study Type: TRANSTHORACIC ECHO (TTE) COMPLETE Diagnosis/ICD: Pulmonary hypertension, unspecified-I27.20 CPT Codes: Echo Complete w Full Doppler-15644 Study Detail: The following Echo studies were performed: 2D, M-Mode, Doppler and color flow. Definity used as a contrast agent for endocardial border definition. Total contrast used for this procedure was 1.50cc mL via IV push. PHYSICIAN INTERPRETATION: Left Ventricle: Left ventricular systolic function is normal, with an estimated ejection fraction of 65%. There are no regional wall motion abnormalities. The left ventricular cavity size is normal. There is mild left ventricular hypertrophy. Spectral Doppler shows an impaired relaxation pattern of left ventricular diastolic filling. Left Atrium: The left atrium is normal in size. Right Ventricle: The right ventricle is severely enlarged. There is severely reduced right ventricular systolic function. Right Atrium: The right atrium is severely dilated. Aortic Valve: The aortic valve is trileaflet. There is no evidence of aortic valve regurgitation. The peak instantaneous gradient of the aortic valve is 3.4 mmHg. The mean gradient of the aortic valve is 2.0 mmHg. Mitral Valve: The mitral valve is normal in structure. There is no evidence of mitral valve regurgitation. Tricuspid Valve: The tricuspid valve is structurally normal. There is severe tricuspid regurgitation. Pulmonic Valve: The pulmonic valve is structurally normal. There is moderate pulmonic valve regurgitation. Pericardium: There is a small pericardial effusion. Aorta: The aortic root is normal. Systemic Veins: The inferior vena cava appears dilated. There is less than 50% IVC collapse with inspiration. CONCLUSIONS: 1. Left ventricular systolic function is normal with a 65% estimated ejection fraction. 2. Spectral Doppler shows an impaired relaxation pattern of left ventricular diastolic filling. 3. D-shaped septum in systole and diastole consistent with right ventricular pressure and volume overload. 4. Severely enlarged right ventricle. 5. There is severely reduced right ventricular systolic function. 6. The right atrium is severely dilated. 7. Severe tricuspid regurgitation. 8. Moderate pulmonic valve regurgitation. 9. Calculated pulmonary artery systolic pressure is 97 mmHg, consistent with pulmonary hypertension. 10. Ascites is incidentally noted. Recommend dedicated imaging. 11. Small pericardial effusion with no evidence of hemodynamic compromise. 12. Overall findings appear consistent with significant pulmonary hypertension, with signs of right ventricular dysfunction. 13. Findings appear similar to prior echocardiogram dated 04/09/2023. QUANTITATIVE DATA SUMMARY: 2D MEASUREMENTS: Normal Ranges: Ao Root d: 3.10 cm (2.0-3.7cm) LAs: 2.60 cm (2.7-4.0cm) IVSd: 1.36 cm (0.6-1.1cm) LVPWd: 1.29 cm (0.6-1.1cm) LVIDd: 2.75 cm (3.9-5.9cm) LVIDs: 1.68 cm LV Mass Index: 61.7 g/m2 LV % FS 38.9 % LA VOLUME: Normal Ranges: LA Vol A4C: 24.5 ml (22+/-6mL/m2) LA Vol A2C: 35.1 ml LA Vol BP: 31.5 ml LA Vol Index A4C: 12.7ml/m2 LA Vol Index A2C: 18.2 ml/m2 LA Vol Index BP: 16.3 ml/m2 LA Area A4C: 11.9 cm2 LA Area A2C: 15.3 cm2 LA Major [place] A4C: 4.9 cm LA Major [place] A2C: 5.7 cm LA Volume Index: 11.8 ml/m2 LA Vol A4C: 22.6 ml LA Vol A2C: 32.5 ml LV SYSTOLIC FUNCTION BY 2D PLANIMETRY (MOD): Normal Ranges: EF-A4C View: 74.1 % (>=55%) EF-A2C View: 42.9 % EF-Biplane: 58.2 % AORTIC VALVE: Normal Ranges: AoV Vmax: 0.92 m/s (<=1.7m/s) AoV Peak P.4 mmHg (<20mmHg (more content not included)... 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 Definity used as a contrast agent for endocardial border definition. Total contrast used for this procedure was 1.50cc mL via IV push. PHYSICIAN INTERPRETATION: Left Ventricle: Left ventricular systolic function is normal, with an estimated ejection fraction of 65%. There are no regional wall motion abnormalities. The left ventricular cavity size is normal. There is mild left ventricular hypertrophy. Spectral Doppler shows an impaired relaxation pattern of left ventricular diastolic filling. Left Atrium: The left atrium is normal in size. Right Ventricle: The right ventricle is severely enlarged. There is severely reduced right ventricular systolic function. Right Atrium: The right atrium is severely dilated. Aortic Valve: The aortic valve is trileaflet. There is no evidence of aortic valve regurgitation. The peak instantaneous gradient of the aortic valve is 3.4 mmHg. The mean gradient of the aortic valve is 2.0 mmHg. Mitral Valve: The mitral valve is normal in structure. There is no evidence of mitral valve regurgitation. Tricuspid Valve: The tricuspid valve is structurally normal. There is severe tricuspid regurgitation. Pulmonic Valve: The pulmonic valve is structurally normal. There is moderate pulmonic valve regurgitation. Pericardium: There is a small pericardial effusion. Aorta: The aortic root is normal. Systemic Veins: The inferior vena cava appears dilated. There is less than 50% IVC collapse with inspiration. CONCLUSIONS: 1. Left ventricular systolic function is normal with a 65% estimated ejection fraction. 2. Spectral Doppler shows an impaired relaxation pattern of left ventricular diastolic filling. 3. D-shaped septum in systole and diastole consistent with right ventricular pressure and volume overload. 4. Severely enlarged right ventricle. 5. There is severely reduced right ventricular systolic function. 6. The right atrium is severely dilated. 7. Severe tricuspid regurgitation. 8. Moderate pulmonic valve regurgitation. 9. Calculated pulmonary artery systolic pressure is 97 mmHg, consistent with pulmonary hypertension. 10. Ascites is incidentally noted. Recommend dedicated imaging. 11. Small pericardial effusion with no evidence of hemodynamic compromise. 12. Overall findings appear consistent with significant pulmonary hypertension, with signs of right ventricular dysfunction. 13. Findings appear similar to prior echocardiogram dated 04/09/2023. QUANTITATIVE DATA SUMMARY: 2D MEASUREMENTS: Normal Ranges: Ao Root d: 3.10 cm (2.0-3.7cm) LAs: 2.60 cm (2.7-4.0cm) IVSd: 1.36 cm (0.6-1.1cm) LVPWd: 1.29 cm (0.6-1.1cm) LVIDd: 2.75 cm (3.9-5.9cm) LVIDs: 1.68 cm LV Mass Index: 61.7 g/m2 LV % FS 38.9 % LA VOLUME: Normal Ranges: LA Vol A4C: 24.5 ml (22+/-6mL/m2) LA Vol A2C: 35.1 ml LA Vol BP: 31.5 ml LA Vol Index A4C: 12.7ml/m2 LA Vol Index A2C: 18.2 ml/m2 LA Vol Index BP: 16.3 ml/m2 LA Area A4C: 11.9 cm2 LA Area A2C: 15.3 cm2 LA [place] A4C: 4.9 cm LA Major [place] A2C: 5.7 cm LA Volume Index: 11.8 ml/m2 LA Vol A4C: 22.6 ml LA Vol A2C: 32.5 ml LV SYSTOLIC FUNCTION BY 2D PLANIMETRY (MOD): Normal Ranges: EF-A4C View: 74.1 % (>=55%) EF-A2C View: 42.9 % EF-Biplane: 58.2 % AORTIC VALVE: Normal Ranges: AoV Vmax: 0.92 m/s (<=1.7m/s) AoV Peak P.4 mmHg (<20mmHg) AoV Mean P.0 mmHg (1.7-11.5mmHg) LVOT Max Edita: 0.72 m/s (<=1.1m/s) AoV VTI: 14.90 cm (18-25cm) LVOT VTI: 10.20 cm LVOT Diameter: 2.20 cm (1.8-2.4cm) AoV Area, VTI: 2.60 cm2 (2.5-5.5cm2) AoV Area,Vmax: 2.96 cm2 (2.5-4.5cm2) AoV Dimensionless Index: 0.68 RIGHT VENTRICLE: RV Basal 6.48 cm RV Mid 4.15 cm RV Major 9.1 cm TRICUSPID VALVE/RVSP: Normal Ranges: Peak TR Velocity: 4.54 m/s RV Syst Pressure: 85.4 mmHg (< 30mmHg) [id number] Emre Silverio MD Electronically signed on 06/06/2023 at 1:22:01 PM Final [facility] Work Phone: Vancomycinon 06-06-2023 Vancomycin [Mass/Vol] 27.9 ug/mL High 5.0 - 20.0 ug/mL [facility] Vancomycin [Mass/Vol]on 05-11 Vancomycin levels can be monitored according to area under the curve (AUC) or concentration (ug/mL). The preferred monitoring strategy is determined by the patient's renal function and indication for therapy. For AUC monitoring, a random vancomycin level should be interpreted in the context of AUC rather than the concentration at a single point in time. For concentration monitoring, a trough concentration drawn immediately prior to the next dose is preferred. Therapeutic ranges using concentration-guided results: Peak (all ages): 30.0-40.0 ug/mL Trough (all ages): 10.0-20.0 ug/mL [facility] XR Hand Viewson 06-06-2023 1. No fracture or dislocation. MACRO: None. Signed by: Liang Robles 06/06/2023 10:32 AM Dictation workstation: [id number] MMODAL Interpreted By: Liang Robles, STUDY: XR HAND RIGHT 1-2 VIEWS 06/06/2023 10:07 am INDICATION: Signs/Symptoms:Attentio n 2nd and 3rd finger distal. r/o osteo COMPARISON: None. ACCESSION NUMBER(S): [id number] ORDERING CLINICIAN: JANIA WINSLOW TECHNIQUE: 2 views of the right hand including AP and lateral projections were obtained. FINDINGS: The study is limited by difficulty with patient positioning as the patient was unable to straighten there 2nd and 3rd digits. There is no evidence of acute fracture or dislocation identified. No definite osseous lytic lesions are identified. The joint spaces are well preserved throughout without significant degenerative changes. MMODAL Liang Robles MD - 06/06/2023 Interpreted By: Liang Robles, STUDY: XR HAND RIGHT 1-2 VIEWS 06/06/2023 10:07 am INDICATION: Signs/Symptoms:Attentio n 2nd and 3rd finger distal. r/o osteo COMPARISON: None. ACCESSION NUMBER(S): [id number] ORDERING CLINICIAN: JANIA WINSLOW TECHNIQUE: 2 views of the right hand including AP and lateral projections were obtained. FINDINGS: The study is limited by difficulty with patient positioning as the patient was unable to straighten there 2nd and 3rd digits. There is no evidence of acute fracture or dislocation identified. No definite osseous lytic lesions are identified. The joint spaces are well preserved throughout without significant degenerative changes. IMPRESSION: 1. No fracture or dislocation. MACRO: None. Signed by: Liang Robles 06/06/2023 10:32 AM Dictation workstation: [id number] [facility] Work Phone: Radiology Study observation (narrative) [facility] Work Phone: XR Hand ViewsOrdered By: Liang Robles on 06-06-2023 [facility] Work Phone: CT Lower leg - left W contra st Milady 06-05-2023 1. Anterior distal tibial superficial soft tissue ulceration without underlying fluid collection. Inflammatory changes associated with the ulcer extends to the anterior bone surface of the tibia with associated periosteal reaction. No erosive change. The findings could reflect mild focal osteitis or early osteomyelitis. MRI is suggested for further evaluation. 2. Severe superficial soft tissue swelling. Signed by: Jesús Rubalcava 06/05/2023 12:26 AM Dictation workstation: [id number] MMODAL Interpreted By: Jesús Rubalcava, STUDY: CT TIBIA FIBULA LEFT W IV CONTRAST; 06/04/2023 11:20 pm INDICATION: Signs/Symptoms:wound. COMPARISON: 04/26/2023 radiographs ACCESSION NUMBER(S): [id number] ORDERING CLINICIAN: JOSUÉ IGLESIAS TECHNIQUE: Axial CT of the left tibia/fibula was performed with sagittal and coronal reformats. Intravenous contrast was administered, 80 mL Omnipaque 350. FINDINGS: There is severe subcutaneous edema throughout the lower leg. There are extensive subcutaneous venous varices. There is focal skin/superficial soft tissue ulceration at the anterior distal tibia with underlying inflammatory change that extends to the surface of tibia with associated coarse periosteal reaction (axial image 159/240) no tibial erosive change is identified. No organized fluid collection. No knee joint effusion. Bone islands within the medial distal femur and proximal tibia. MMODAL Jesús Rubalcava, DO - 06/05/2023 Interpreted By: Jesús Rubalcava, STUDY: CT TIBIA FIBULA LEFT W IV CONTRAST; 06/04/2023 11:20 pm INDICATION: Signs/Symptoms:wound. COMPARISON: 04/26/2023 radiographs ACCESSION NUMBER(S): [id number] ORDERING CLINICIAN: JOSUÉ IGLESIAS TECHNIQUE: Axial CT of the left tibia/fibula was performed with sagittal and coronal reformats. Intravenous contrast was administered, 80 mL Omnipaque 350. FINDINGS: There is severe subcutaneous edema throughout the lower leg. There are extensive subcutaneous venous varices. There is focal skin/superficial soft tissue ulceration at the anterior distal tibia with underlying inflammatory change that extends to the surface of tibia with associated coarse periosteal reaction (axial image 159/240) no tibial erosive change is identified. No organized fluid collection. No knee joint effusion. Bone islands within the medial distal femur and proximal tibia. IMPRESSION: 1. Anterior distal tibial superficial soft tissue ulceration without underlying fluid collection. Inflammatory changes associated with the ulcer extends to the anterior bone surface of the tibia with associated periosteal reaction. No erosive change. The findings could reflect mild focal osteitis or early osteomyelitis. MRI is suggested for further evaluation. 2. Severe superficial soft tissue swelling. Signed by: Jesús Rubalcava 06/05/2023 12:26 AM Dictation workstation: [id number] [facility] Work Phone: CT Lower leg - left W contra st IVOrdered By: Jesús Rubalcava on 06-05-2023 [facility] Work Phone: Vascular US Lower Extremity Venous Duplex Lefton 06-05-2023 [place] [address] [phone], Vascular Lab Report VASC US LOWER EXTREMITY VENOUS DUPLEX LEFT Patient Name: JAYNA Teresa Physician: [id number] Castaneda MD Study Date: 06/05/2023 Ordering Provider: [id number] LETHA LAYTON MRN/PID: [id number] Fellow: Technologist: Bren Lizama RVT/AB Date of 1985 Technologist 2: /Age: years Gender: F Admission Status: Inpatient Location [facility] Performed: Diagnosis/ICD: Localized (leg) edema-R60.0 CPT Codes: 13949 Peripheral venous duplex scan for DVT Limited CONCLUSIONS: Right Lower Venous: Right common femoral vein is negative for deep vein thrombus. Left Lower Venous: No evidence of acute deep vein thrombus visualized in the left lower extremity. Cannot rule out thrombus in non-visualized posterior tibial and peroneal veins due to edema and patient refusal. Additional Findings: Unable to perform calf compressions due to patients severe pain. Imaging & Doppler Findings: Right Compressible Flow Distal External Iliac Yes Pulsatile CFV Yes Pulsatile Left Compress Thrombus Flow Distal External Iliac Yes None Pulsatile CFV Yes None Pulsatile PFV Yes None FV Proximal Yes None Pulsatile FV Mid Yes None FV Distal Yes None Popliteal Yes None Pulsatile [id number] Rubina Castaneda MD Final Rubina Alberto MD - 06/05/2023 [place] [address] [phone], Vascular Lab Report VASC US LOWER EXTREMITY VENOUS DUPLEX LEFT Patient Name: JAYNA SMITH Reading Physician: [id number] Castaneda MD Study Date: 06/05/2023 Ordering Provider: [id number] LETHA LAYTON MRN/PID: [id number] Fellow: Technologist: Bren Lizama RVT/AB Date of 1985 Technologist 2: /Age: years Gender: F Admission Status: Inpatient Location [facility] Performed: Diagnosis/ICD: Localized (leg) edema-R60.0 CPT Codes: 37139 Peripheral venous duplex scan for DVT Limited CONCLUSIONS: Right Lower Venous: Right common femoral vein is negative for deep vein thrombus. Left Lower Venous: No evidence of acute deep vein thrombus visualized in the left lower extremity. Cannot rule out thrombus in non-visualized posterior tibial and peroneal veins due to edema and patient refusal. Additional Findings: Unable to perform calf compressions due to patients severe pain. Imaging & Doppler Findings: Right Compressible Flow Distal External Iliac Yes Pulsatile CFV Yes Pulsatile Left Compress Thrombus Flow Distal External Iliac Yes None Pulsatile CFV Yes None Pulsatile PFV Yes None FV Proximal Yes None Pulsatile FV Mid Yes None FV Distal Yes None Popliteal Yes None Pulsatile [id number] Castaneda MD Final [facility] Work Phone: Radiology Study observation (narrative) [facility] Work Phone: Vascular US Lower Extremity Venous Duplex LeftOrdered By: Rubina Castaneda on 06-05-2023 [facility] Work Phone: XR Foot - left 3 Viewson NO RADIOPAQUE FOREIG N BODY SOFT TISSUE SWELLING ON THE DORSAL ASPECT OF THE MID AND DISTAL FOOT. MACRO: None Signed by: Alejandro Interiano 06/05/2023 2:17 PM Dictation workstation: [id number] MMODAL Interpreted By: Alejandro Interiano, STUDY: XR FOOT LEFT 3+ VIEWS; ; 06/05/2023 1:40 pm INDICATION: Signs/Symptoms:dog bite. COMPARISON: None. ACCESSION NUMBER(S): [id number] ORDERING CLINICIAN: FELICIA BARBOSA FINDINGS: LEFT FOOT-AP, LATERAL AND OBLIQUE VIEWS MILD DEGENERATIVE CHANGES ARE PRESENT AT THE 1ST MTP JOINT AND THE TALONAVICULAR JOINT. A SOFT TISSUE SWELLING IS PRESENT ON THE DORSAL ASPECT OF THE MID AND DISTAL FOOT. NO RADIOPAQUE FOREIGN BODY IS SEEN. NO FRACTURE. MMODAL Alejandro Interiano MD - 06/05/2023 Interpreted By: Alejandro Interiano, STUDY: XR FOOT LEFT 3+ VIEWS; ; 06/05/2023 1:40 pm INDICATION: Signs/Symptoms:dog bite. COMPARISON: None. ACCESSION NUMBER(S): [id number] ORDERING CLINICIAN: FELICIA BARBOSA FINDINGS: LEFT FOOT-AP, LATERAL AND OBLIQUE VIEWS MILD DEGENERATIVE CHANGES ARE PRESENT AT THE 1ST MTP JOINT AND THE TALONAVICULAR JOINT. A SOFT TISSUE SWELLING IS PRESENT ON THE DORSAL ASPECT OF THE MID AND DISTAL FOOT. NO RADIOPAQUE FOREIGN BODY IS SEEN. NO FRACTURE. IMPRESSION: NO RADIOPAQUE FOREIGN BODY SOFT TISSUE SWELLING ON THE DORSAL ASPECT OF THE MID AND DISTAL FOOT. MACRO: None Signed by: Alejandro Interiano 06/05/2023 2:17 PM Dictation workstation: [id number] [facility] Work Phone: Radiology Study observation (narrative) [facility] Work Phone: XR Foot - left 3 ViewsOrdere d By: Alejandro Interiano on 06-05-2023 [facility] Work Phone: CBC W Auto Differential pane l (Bld)on 06-04-2023 Basophils (Bld) [#/Vol] 0.05 10*3/uL [facility] Basophils/100 WBC (Bld) 0.6 % 0.0 - 2.0 % [facility] Eosinophils (Bld) [#/Vol] 0.14 10*3/uL [facility] Eosinophils/100 WBC (Bld) 1.7 % 0.0 - 6.0 % [facility] Erythrocyte distribution width (RBC) [Ratio] 15.9 % High 11.5 - 14.5 % [facility] Hematocrit (Bld) [Volume fraction] 45.8 % 36.0 - 46.0 % [facility] Hemoglobin (Bld) [Mass/Vol] 14.8 g/dL 12.0 - 16.0 g/dL [facility] Immature granulocytes (Bld) [#/Vol] 0.05 10*3/uL [facility] Immature granulocytes/100 WBC (Bld) 0.6 % 0.0 - 0.9 % [facility] Comment on above: Immature Granulocyte Count (IG) includes promyelocytes, myelocytes and metamyelocytes but does not include bands. Percent differential counts (%) should be interpreted in the context of the absolute cell counts (cells/UL). Interpretation and review of laboratory results Abnormal [facility] Lymphocytes (Bld) [#/Vol] 1.69 10*3/uL [facility] Lymphocytes/100 WBC (Bld) 20.9 % 13.0 - 44.0 % [facility] MCH (RBC) [Entitic mass] 28.0 pg 26.0 - 34.0 pg [facility] MCHC (RBC) [Mass/Vol] 32.3 g/dL 32.0 - 36.0 g/dL [facility] MCV (RBC) [Entitic vol] 87 fL 80 - 100 fL [facility] Monocytes (Bld) [#/Vol] 1.08 10*3/uL High [facility] Monocytes/100 WBC (Bld) 13.4 % 2.0 - 10.0 % [facility] Neutrophils (Bld) [#/Vol] 5.07 10*3/uL [facility] Comment on above: Percent differential counts (%) should be interpreted in the context of the absolute cell counts (cells/uL). Neutrophils/100 WBC (Bld) 62.8 % 40.0 - 80.0 % [facility] Nucleated RBC/100 WBC (Bld) [Ratio] 0.0 % [facility] Platelets (Bld) [#/Vol] 232 10*3/uL [facility] RBC (Bld) [#/Vol] 5.28 10*6/uL High [facility] WBC (Bld) [#/Vol] 8.1 10*3/uL [facility] CT Lower leg - left W contra st [facility] 06-04-2023 Radiology Study observation (narrative) [facility] Work Phone: Comprehensive metabolic 2000 panelon 06-04-2023 Albumin BCP dye [Mass/Vol] 3.2 g/dL Low 3.4 - 5.0 g/dL [facility] ALP [Catalytic activity/Vol] 388 U/L High 33 - 110 U/L [facility] ALT With P-5'-P [Catalytic activity/Vol] 13 U/L 7 - 45 U/L [facility] Comment on above: Patients treated wit h Sulfasalazine may generate falsely decreased results for ALT. Anion gap [Moles/Vol] 14 mmol/L 10 - 2 0 mmol/L [facility] AST With P-5'-P [Catalytic activity/Vol] 17 U/L 9 - 39 U/L [facility] Bilirubin [Mass/Vol] 1.8 mg/dL High 0.0 - 1 .2 mg/dL [facility] Calcium [Mass/Vol] 8.7 mg/dL 8.6 - 10. 3 mg/dL [facility] Chloride [Moles/Vol] 101 mmol/L 98 - 10 7 mmol/L [facility] CO2 [Moles/Vol] 23 mmol/L 21 - 32 mmol/L [facility] Creatinine [Mass/Vol] 1.04 mg/dL 0.50 - 1.05 mg/dL [facility] GFR/1.73 sq M.predicted among non-blacks MDRD (S/P/Bld) [Vol rate/Area] 70 mL/min/{1.73_m2} - PINF [facility] Comment on above: Calculations of raul mated GFR are performed using the 2020 CKD-EPI Study Refit equation without the race variable for the IDMS-Traceable creatinine methods. https://jasn.asnjournals.org/content//ASN.989011 4418 Glucose [Mass/Vol] 125 mg/dL High 74 - 99 mg/dL [facility] Interpretation and review of laboratory results Abnormal [facility] Potassium [Moles/Vol] 4.1 mmol/L 3.5 - 5.3 mmol/L [facility] Protein [Mass/Vol] 6.4 g/dL 6.4 - 8.2 g/dL [facility] Sodium [Moles/Vol] 134 mmol/L Low 136 - 145 mmol/L [facility] Urea nitrogen [Mass/Vol] 19 mg/dL 6 - 23 mg/dL [facility] Lactateon 06-04-2023 Lactate [Moles/Vol] 1.8 mmol/L 0.4 - 2. 0 mmol/L [facility] Lactate [Moles/Vol]on 2023 Interpretation and review of laboratory results Normal [facility] Venipuncture immediately after or during the administration of Metamizole may lead to falsely low results. Testing should be performed immediately prior to Metamizole dosing. [facility] Urinalysis complete W Reflex Culture panel (U)on 06-04-2023 Epithelial cells.squamous Auto (Urine sed) [#/Area] 1-9 (SPARSE) Reference range not established. /HPF [facility] Mucus Auto (Urine sed) [#/Area] 1+ Reference range not established. /LPF [facility] RBC Auto (Urine sed) [#/Area] 1-2 NONE, 1-2, 3-5 /HPF [facility] WBC Auto (Urine sed) [#/Area] NONE 1-5, NONE /HPF [facility] Urinalysis complete W Reflex Culture panel (U)Ordered By: Barbara Blair on 06-04-2023 Appearance (U) Clear Clear [facility] Bilirubin (U) [Mass/Vol] Negative NEGATIVE [facility] Color (U) Yellow Straw, Yellow [facility] Glucose Auto test strip (U) [Mass/Vol] Negative NEGATIVE mg/dL [facility] Interpretation and review of laboratory results Abnormal [facility] Ketones (U) [Mass/Vol] Negative NEGATIVE mg/dL [facility] Leukocyte esterase Auto test strip Ql (U) Negative NEGATIVE [facility] Nitrite Auto test strip Ql (U) Negative NEGATIVE [facility] pH (U) 6.0 [pH] 5.0, 5.5, 6.0, 6.5, 7.0, 7.5, 8.0 [facility] Protein (U) [Mass/Vol] >=300 (3+) Abnormal NEGATIVE, TRACE mg/dL [facility] RBC (U) [#/Vol] TRACE Abnormal NEGATIVE [facility] Specific gravity (U) [Rel density] 1.020 1.005 - 1.035 [facility] Urobilinogen (U) [Mass/Vol] 1.0 mg/dL 0.2, 1.0 [facility] MR/BMSFranklyn 05-22-2023 MR/BMSGLO [facility] Vascular Surgery [address] [place] [address] OFFICE VISIT Date of Service: 05/22/23 MR#: [id number] Acct: [id number] Name: BRENTJAYNA Cezar Rep #: [id number] : 1985 Provider: MOISÉS Velazquez Age/Sex: 37/F Location: [facility] Status: Signed Intake Vital Signs 01/18/23 13:09 05/22/23 10:11 Height 5 ft 8 in Weight: 176 lb BP 129/101 H Blood Pressure Location Lt brachial Position Sitting Respiration 16 Pulse 79 Pulse Source Monitor Temp 98 F Temp Source Temporal Intake Visit Reasons: CONSULT-VENOUS INSUFFICIENCY Is patient in pain?: Yes Allergies No Known Allergies Allergy (Verified 05/22/23 10:14) Medications buspirone 5 mg tablet 5 mg PO TID PRN anxiety 10/12/22 [History Confirmed 05/22/23] loratadine 10 mg tablet (Claritin) 10 mg PO DAILY PRN allergic symptoms 10/12/22 [History Confirmed 05/22/23] PFSH Medical History Raynauds disease Skin ulcer of hand Type 2 diabetes mellitus Ulcer of left lower extremity with fat layer exposed Surgical History (Updated 05/22/23 @ 10:09 by Gladys Perry) S/P debridement ( 04/2023) Family History (Updated 05/22/23 @ 10:10 by Gladys Perry) Other Asthma Diabetes Hypertension Social History (Updated 05/22/23 @ 10:11 by Gladys Perry) Smoking Status: Light Smoker (<10/day) HPI HPI HPI: JAYNA SMITH, is a 37 F who presents to the office today as referred by podiatry/Dr. Barbosa for evaluation of lower extremity swelling and ulceration. She also complains today of ulcerations to right fingers. She has had this LLE medial doherty ulceration for 2-3 years. Recently, she was admitted to [facility] with a wound infection. She underwent operative debridement, biopsy, and application of skin substitute graft by Dr. Barbosa on 04/19/23 and has continued to follow-up with her on an OP basis. Punch biopsy did not show any evidence of malignancy or pyoderma. She has seen some improvement in the wound over the last few weeks. She also reports ulcerations with exposed bone to her R 2nd and 3rd fingers. She reports currently these have overlying callus, but when that is not present she can see to bone. These have been present for at least 6 months. 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 She does report that she has Raynaud's and admits to chronic discoloration of her fingers which has been ongoing for several years. She is a smoker and has been smoking since she was 14. LLE venous duplex on 04/18/23 at [facility] which was negative for acute DVT but did not include a reflux study. Also notably, it indicated pulsatile flow in the external iliac, femoral, and popliteal veins. She had UE arterial study on 04/09/23 which on the right showed baseline indices <0.85 and waveforms appear abnormal. Biphasic waveforms throughout. Diminished digit waveforms and on the L biphasic waveforms and diminished digit waveform. The waveform graphs/images were not included in the report. She had LEAS on 04/09/23 which showed normal bilateral ABIs (L 0.96, R 1.19) and triphasic waveforms throughout. She had an echo on 04/09/23 which showed findings consistent with severe pulmonary hypertension including enlarged right ventricle with reduced systolic function, severe tricuspid regurgitation, severely dilated R atrium. She reports she is aware she was referred to see cardiology at [facility] but has not made an appointment yet as she wanted to try to address her lower extremity edema and wounds first. ROS General General: No weight change, appetite, fatigue, colon cancer, breast cancer or weakness HEENT HEENT: No difficulty swallowing, eye injury, eye surgery, swollen glands or hoarseness Endo Endocrine: Yes diabetes mellitus; No thyroid disease, thyroid cancer, Hair loss, heat intolerance or cold intolerance Skin Skin: No rash or changing moles Musc Musculoskeletal: No back problems, arthritis, rheumatoid arthritis, gout or joint pain Cardio Cardiovascular: Yes high blood pressure; No murmur, pacemaker, heart disease, atrial fibrillation, heart attack, heart stent, palpitations, shortness of breat with exertion or chest pain Psych Psychiatric: Yes anxiety; No depression or hearing voices Resp Respiratory: No shortness of breath, No sleep apnea, No cough, No COPD, No asthma, No emphysema and No wheezing Gastro Gastrointestinal: No abdominal pain, No nausea or vomiting, No diarrhea, No constipation, No blood in stool, No acid reflux, No hemorrhoids, No ulcers, No gallbladder problem and No black,tarry stools Ko Hematologic: No blood thinners, No blood disorders, No bleeding, No anemia and No blo (more content not included)... Normal [facility] C-reactive proteinon 024 CRP [Mass/Vol] 0.50 mg/dL NINF - 1.00 mg/dL [facility] CBC W Auto Differential pane l (Bld)on 04-26-2023 Basophils (Bld) [#/Vol] 0.04 10*3/uL [facility] Basophils/100 WBC (Bld) 0.8 % 0.0 - 2.0 % [facility] Eosinophils (Bld) [#/Vol] 0.16 10*3/uL [facility] Eosinophils/100 WBC (Bld) 3.3 % 0.0 - 6.0 % [facility] Erythrocyte distribution width (RBC) [Ratio] 15.6 % High 11.5 - 14.5 % [facility] Hematocrit (Bld) [Volume fraction] 49.5 % High 36.0 - 46.0 % [facility] Hemoglobin (Bld) [Mass/Vol] 15.5 g/dL 12.0 - 16.0 g/dL [facility] Immature granulocytes (Bld) [#/Vol] 0.01 10*3/uL [facility] Immature granulocytes/100 WBC (Bld) 0.2 % 0.0 - 0.9 % [facility] Comment on above: Immature Granulocyte Count (IG) includes promyelocytes, myelocytes and metamyelocytes but does not include bands. Percent differential counts (%) should be interpreted in the context of the absolute cell counts (cells/UL). Interpretation and review of laboratory results Abnormal [facility] Lymphocytes (Bld) [#/Vol] 1.19 10*3/uL Low [facility] Lymphocytes/100 WBC (Bld) 24.2 % 13.0 - 44.0 % [facility] MCH (RBC) [Entitic mass] 27.9 pg 26.0 - 34.0 pg [facility] MCHC (RBC) [Mass/Vol] 31.3 g/dL Low 32.0 - 36.0 g/dL [facility] MCV (RBC) [Entitic vol] 89 fL 80 - 100 fL [facility] Monocytes (Bld) [#/Vol] 0.51 10*3/uL [facility] Monocytes/100 WBC (Bld) 10.4 % 2.0 - 10.0 % [facility] Neutrophils (Bld) [#/Vol] 3.00 10*3/uL [facility] Comment on above: Percent differential counts (%) should be interpreted in the context of the absolute cell counts (cells/uL). Neutrophils/100 WBC (Bld) 61.1 % 40.0 - 80.0 % [facility] Nucleated RBC/100 WBC (Bld) [Ratio] 0.0 % [facility] Platelets (Bld) [#/Vol] 126 10*3/uL Low [facility] RBC (Bld) [#/Vol] 5.56 10*6/uL High [facility] WBC (Bld) [#/Vol] 4.9 10*3/uL [facility] Comprehensive metabolic 2000 panelon 04-26-2023 Albumin BCP dye [Mass/Vol] 4.0 g/dL 3.4 - 5.0 g/dL [facility] ALP [Catalytic activity/Vol] 275 U/L High 33 - 110 U/L [facility] ALT With P-5'-P [Catalytic activity/Vol] 17 U/L 7 - 45 U/L [facility] [facility] Comment on above: Patients treated wit h Sulfasalazine may generate falsely decreased results for ALT. Anion gap [Moles/Vol] 13 mmol/L 10 - 2 0 mmol/L [facility] AST With P-5'-P [Catalytic activity/Vol] 17 U/L 9 - 39 U/L [facility] Bilirubin [Mass/Vol] 1.4 mg/dL High 0.0 - 1 .2 mg/dL [facility] Calcium [Mass/Vol] 9.5 mg/dL 8.6 - 10. 3 mg/dL [facility] Chloride [Moles/Vol] 106 mmol/L 98 - 10 7 mmol/L [facility] CO2 [Moles/Vol] 25 mmol/L 21 - 32 mmol/L [facility] Creatinine [Mass/Vol] 1.01 mg/dL 0.50 - 1.05 mg/dL [facility] GFR/1.73 sq M.predicted among non-blacks MDRD (S/P/Bld) [Vol rate/Area] 73 mL/min/{1.73_m2} - PINF [facility] Comment on above: Calculations of raul mated GFR are performed using the 2020 CKD-EPI Study Refit equation without the race variable for the IDMS-Traceable creatinine methods. https://jasn.asnjournals.org/content//ASN.814643 0598 Glucose [Mass/Vol] 78 mg/dL 74 - 99 mg/dL [facility] Interpretation and review of laboratory results Abnormal [facility] Potassium [Moles/Vol] 4.1 mmol/L 3.5 - 5.3 mmol/L [facility] Protein [Mass/Vol] 7.3 g/dL 6.4 - 8.2 g/dL [facility] Sodium [Moles/Vol] 140 mmol/L 136 - 145 mmol/L [facility] Urea nitrogen [Mass/Vol] 12 mg/dL 6 - 23 mg/dL [facility] ESR Westergren method (Bld) [Velocity]on 04-26-2023 ESR (Bld) [Velocity] 22 mm/h High 0 - 20 mm/h [facility] Interpretation and review of laboratory results Abnormal [facility] Lactateon 04-26-2023 Lactate [Moles/Vol] 0.8 mmol/L 0.4 - 2. 0 mmol/L [facility] Lactate [Moles/Vol]on 2023 Venipuncture immediately after or during the administration of Metamizole may lead to falsely low results. Testing should be performed immediately prior to Metamizole dosing. [facility] No Panel Informationon 04-26 Interpretation and review of laboratory results Normal [facility] XR Tibia and Fibula - left 2 Viewson 04-26-2023 Intact left tibia an d fibula. Signed by: Manjinder Stuart 04/26/2023 2:36 PM Dictation workstation: [id number] MMODAL Interpreted By: Manjinder Govea, STUDY: XR TIBIA FIBULA LEFT 2 VIEWS; 04/26/2023 2:20 pm INDICATION: Signs/Symptoms:wound. COMPARISON: None. ACCESSION NUMBER(S): [id number] ORDERING CLINICIAN: ELLEN BACH FINDINGS: No acute fracture or focal osseous destruction seen. MMODAL Manjinder Stuart MD - 04/26/2023 Interpreted By: Manjinder Stuart, STUDY: XR TIBIA FIBULA LEFT 2 VIEWS; 04/26/2023 2:20 pm INDICATION: Signs/Symptoms:wound. COMPARISON: None. ACCESSION NUMBER(S): [id number] ORDERING CLINICIAN: ELLEN BACH FINDINGS: No acute fracture or focal osseous destruction seen. IMPRESSION: Intact left tibia and fibula. Signed by: Manjinder Stuart 04/26/2023 2:36 PM Dictation workstation: [id number] [facility] Work Phone: Radiology Study observation (narrative) [facility] Work Phone: XR Tibia and Fibula - left 2 ViewsOrdered By: Manjinder Stuart on 04-26-2023 [facility] Work Phone: US Pelvis transvaginalon 1. Similar sonograph ic appearance of large simple appearing cystic lesion associated with the left ovary/adnexal region. MACRO: None Signed by: Greyson Phillips 04/25/2023 9:59 AM Dictation workstation: [id number] MMODAL Interpreted By: Greyson Roth, STUDY: US PELVIS TRANSABDOMINAL WITH TRANSVAGINAL; 04/24/2023 10:27 am INDICATION: Signs/Symptoms: left ovarian cyst Z87.42: History of ovarian cyst. COMPARISON: Pelvic ultrasound dated 10/26/2022. ACCESSION NUMBER(S): [id number] ORDERING CLINICIAN: RASHAWN CARTER TECHNIQUE: Multiple multiplanar static martell scale, color and spectral waveform sonographic images of the pelvis were obtained. Transabdominal and endovaginal ultrasound was performed. FINDINGS: UTERUS: The uterus measures 4.0 cm x 3.2 cm x 6.2 cm. The uterine myometrium appears normal. ENDOMETRIUM: The endometrium measures a thickness of 0.4 cm, which is normal. RIGHT ADNEXA: The right ovary measures 2.0 cm x 2.2 cm x 3.0 cm and demonstrates normal flow. No gross right adnexal masses are seen, no hydrosalpinx. LEFT ADNEXA: The left ovary measures 7.6 cm x 6.3 cm x 9.4 cm and demonstrates normal flow. There is a 7.9 x 7.1 x 6.3 cm anechoic, simple appearing cystic lesion associated with the left ovary not appreciably changed in size or imaging appearance from comparison examination. CUL DE SAC: Free fluid is evident within the pelvis. [facility] MMODAL Greyson Phillips MD - 04/25/2023 Interpreted By: Greyson Phillips, STUDY: US PELVIS TRANSABDOMINAL WITH TRANSVAGINAL; 04/24/2023 10:27 am INDICATION: Signs/Symptoms: left ovarian cyst Z87.42: History of ovarian cyst. COMPARISON: Pelvic ultrasound dated 10/26/2022. ACCESSION NUMBER(S): [id number] ORDERING CLINICIAN: RAHSAWN CARTER TECHNIQUE: Multiple multiplanar static martell scale, color and spectral waveform sonographic images of the pelvis were obtained. Transabdominal and endovaginal ultrasound was performed. FINDINGS: UTERUS: The uterus measures 4.0 cm x 3.2 cm x 6.2 cm. The uterine myometrium appears normal. ENDOMETRIUM: The endometrium measures a thickness of 0.4 cm, which is normal. RIGHT ADNEXA: The right ovary measures 2.0 cm x 2.2 cm x 3.0 cm and demonstrates normal flow. No gross right adnexal masses are seen, no hydrosalpinx. LEFT ADNEXA: The left ovary measures 7.6 cm x 6.3 cm x 9.4 cm and demonstrates normal flow. There is a 7.9 x 7.1 x 6.3 cm anechoic, simple appearing cystic lesion associated with the left ovary not appreciably changed in size or imaging appearance from comparison examination. CUL DE SAC: Free fluid is evident within the pelvis. IMPRESSION: 1. Similar sonographic appearance of large simple appearing cystic lesion associated with the left ovary/adnexal region. MACRO: None Signed by: Greyson Phillips 04/25/2023 9:59 AM Dictation workstation: [id number] [facility] Work Phone: US Pelvis transvaginalOrdere d By: Greyson Phillips on 04-25-2023 [facility] Work Phone: US Pelvis transvaginalon Radiology Study observation (narrative) [facility] Work Phone: HCG ( test) IA.rapi d Ql (U)Ordered By: Marisol Daniels on 04-19-2023 HCG ( test) Ql (U) Negative NEGATIVE [facility] Interpretation and review of laboratory results Normal [facility] No Panel Informationon 04-18 [place] [phone] [phone], Vascular Lab Report VASC US LOWER EXTREMITY VENOUS DUPLEX LEFT Patient Name: JAYNA Teresa Physician: [id number] Lala MD Study Date: 04/18/2023 Ordering Provider: [id number] BARBOSA MRN/PID: [id number] Fellow: Technologist: Bren ARNDTT/ Date of /Age: 8 1985 Technologist 2: years Gender: F Admission Status: Outpatient Location [facility] Performed: Diagnosis/ICD: Pain in left leg-M79.605 CPT Codes: 24324 Peripheral venous duplex scan for DVT Limited CONCLUSIONS: Right Lower Venous: Right common femoral vein is negative for deep vein thrombus. Left Lower Venous: No evidence of acute deep vein thrombus visualized in the left lower extremity. There are chronic changes visualized in the proximal calf GSV and mid calf GSV. Comparison: Compared with study from 01/13/2022, no significant change. Imaging & Doppler Findings: Left Compress Thrombus Flow Distal External Iliac Yes None Pulsatile CFV Yes None Pulsatile PFV Yes None FV Proximal Yes None Pulsatile FV Mid Yes None FV Distal Yes None Popliteal Yes None Pulsatile Peroneal Yes None PTV Yes None [id number] Lala MD Final Karlos Mora MD - 04/18/2023 [place] [phone] [phone], Vascular Lab Report VASC US LOWER EXTREMITY VENOUS DUPLEX LEFT Patient Name: JAYNA Teresa Physician: [id number] Lala MD Study Date: 04/18/2023 Ordering Provider: [id number] FELICIA BARBOSA MRN/PID: [id number] Fellow: Technologist: Bren Lizama RVT/AB Date of /Age: 8 1985 Technologist 2: years Gender: F Admission Status: Outpatient Location [facility] Performed: Diagnosis/ICD: Pain in left leg-M79.605 CPT Codes: 45263 Peripheral venous duplex scan for DVT Limited CONCLUSIONS: Right Lower Venous: Right common femoral vein is negative for deep vein thrombus. Left Lower Venous: No evidence of acute deep vein thrombus visualized in the left lower extremity. There are chronic changes visualized in the proximal calf GSV and mid calf GSV. Comparison: Compared with study from 01/13/2022, no significant change. Imaging & Doppler Findings: Left Compress Thrombus Flow Distal External Iliac Yes None Pulsatile CFV Yes None Pulsatile PFV Yes None FV Proximal Yes None Pulsatile FV Mid Yes None FV Distal Yes None Popliteal Yes None Pulsatile Peroneal Yes None PTV Yes None [id number] Karlos Lala MD Final [facility] Work Phone: Radiology Study observation (narrative) [facility] Work Phone: No Panel InformationOrdered By: Karlos Lala on 04-18-2023 [facility] Work Phone: Basic metabolic 2000 panelon 04-09-2023 Anion gap [Moles/Vol] 10 mmol/L 10 - 2 0 mmol/L [facility] Calcium [Mass/Vol] 8.6 mg/dL 8.6 - 10. 3 mg/dL [facility] Chloride [Moles/Vol] 107 mmol/L 98 - 10 7 mmol/L [facility] CO2 [Moles/Vol] 20 mmol/L Low 21 - 32 mmol/L [facility] Creatinine [Mass/Vol] 1.20 mg/dL High 0.50 - 1.05 mg/dL [facility] GFR/1.73 sq M.predicted among non-blacks MDRD (S/P/Bld) [Vol rate/Area] 59 mL/min/{1.73_m2} Low - PINF [facility] Comment on above: Calculations of raul mated GFR are performed using the 2020 CKD-EPI Study Refit equation without the race variable for the IDMS-Traceable creatinine methods. https://jasn.asnjournals.org/content//ASN.804915 5295 Glucose [Mass/Vol] 126 mg/dL High 74 - 99 mg/dL [facility] Interpretation and review of laboratory results Abnormal [facility] Potassium [Moles/Vol] 4.6 mmol/L 3.5 - 5.3 mmol/L [facility] Sodium [Moles/Vol] 132 mmol/L Low 136 - 145 mmol/L [facility] Urea nitrogen [Mass/Vol] 22 mg/dL 6 - 23 mg/dL [facility] CBC panel Auto (Bld)on 04-09 Erythrocyte distribution width (RBC) [Ratio] 14.9 % High 11.5 - 14.5 % [facility] Hematocrit (Bld) [Volume fraction] 46.4 % High 36.0 - 46.0 % [facility] Hemoglobin (Bld) [Mass/Vol] 14.3 g/dL 12.0 - 16.0 g/dL [facility] Interpretation and review of laboratory results Abnormal [facility] MCH (RBC) [Entitic mass] 27.7 pg 26.0 - 34.0 pg [facility] MCHC (RBC) [Mass/Vol] 30.8 g/dL Low 32.0 - 36.0 g/dL [facility] MCV (RBC) [Entitic vol] 90 fL 80 - 100 fL [facility] Nucleated RBC/100 WBC (Bld) [Ratio] 0.0 % [facility] Platelets (Bld) [#/Vol] 175 10*3/uL [facility] RBC (Bld) [#/Vol] 5.16 10*6/uL [facility] WBC (Bld) [#/Vol] 8.7 10*3/uL [facility] US Heart TransthoracicOrdere d By: Emre Silverio on 04-09-2023 Aortic Valve Area by Continuity of Peak Velocity 3.06 cm2 [facility] Work Phone: Aortic Valve Area by Continuity of VTI 2.49 cm2 [facility] Work Phone: AV mn grad 2.0 mmHg [facility] Work Phone: AV pk grad 3.9 mmHg [facility] Work Phone: AV pk edita 0.99 m/s [facility] Work Phone: LA vol index A/L 20.8 ml/m2 [facility] Work Phone: LV A4C EF 30.9 [facility] Work Phone: LVIDd 2.38 cm [facility] Work Phone: LVOT diam 2.20 cm [facility] Work Phone: MV avg E/e' ratio 4.79 [facility] Work Phone: MV E/A ratio 0.62 [facility] Work Phone: RVSP 104.6 mmHg [facility] Work Phone: Tricuspid annular plane systolic excursion 1.3 cm [facility] Work Phone: [facility] Work Phone: [place] [address] [phone], TRANSTHORACIC ECHOCARDIOGRAM REPORT Patient Name: JAYNA Teresa Physician: [id number] Emre Silverio MD Study Date: 04/09/2023 Ordering Provider: [id number] TAYLOR GIBSON MRN/PID: [id number] Fellow: Nurse: Kylee Garcias Date of /Age: 8 1985 / 37 years [employer] 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 Study Detail: The following Echo studies were performed: 2D, M-Mode, Doppler and color flow. Definity used as a contrast agent for endocardial border definition. Total contrast used for this procedure was 1 mL via IV push. A bubble study was not performed. The patient was awake. PHYSICIAN INTERPRETATION: Left Ventricle: Left ventricular systolic function is normal, with an estimated ejection fraction of 60%. There are no regional wall motion abnormalities. The left ventricular cavity size is normal. There is moderate concentric left ventricular hypertrophy. Spectral Doppler shows an impaired relaxation pattern of left ventricular diastolic filling. Left Atrium: The left atrium is normal in size. Right Ventricle: The right ventricle is moderately enlarged. There is reduced right ventricular systolic function. Right Atrium: The right atrium is severely dilated. Aortic Valve: The aortic valve is trileaflet. There is no evidence of aortic valve regurgitation. The peak instantaneous gradient of the aortic valve is 3.9 mmHg. The mean gradient of the aortic valve is 2.0 mmHg. Mitral Valve: The mitral valve is normal in structure. There is no evidence of mitral valve regurgitation. Tricuspid Valve: The tricuspid valve is structurally normal. There is severe tricuspid regurgitation. RV-RA gradient 102mm Hg. Pulmonic Valve: The pulmonic valve is not well visualized. There is mild pulmonic valve regurgitation. Pericardium: There is a small pericardial effusion. Aorta: The aortic root is normal. Systemic Veins: The inferior vena cava appears dilated. There is less than 50% IVC collapse with inspiration. CONCLUSIONS: 1. Left ventricular systolic function is normal with a 60% estimated ejection fraction. 2. Spectral Doppler shows an impaired relaxation pattern of left ventricular diastolic filling. 3. There is moderate concentric left ventricular hypertrophy. 4. Enlarged right ventricle with reduced systolic function. 5. D-shaped septum in systole and diastole, consistent with right ventricular pressure and volume overload. 6. Severe tricuspid regurgitation. 7. The right atrium is severely dilated. 8. Calculated right ventricular systolic pressure is 117mm Hg. 9. Small pericardial effusion with no echocardiographic evidence of tamponade. 10. Consult team informed of findings. 11. Findings are consistent with severe Pulmonary Hypertension; presence of pericardial effusion and RV systolic dysfunction are high-risk markers. QUANTITATIVE DATA SUMMARY: 2D MEASUREMENTS: Normal Ranges: Ao Root d: 2.80 cm (2.0-3.7cm) LAs: 2.90 cm (2.7-4.0cm) IVSd: 1.47 cm (0.6-1.1cm) LVPWd: 1.37 cm (0.6-1.1cm) LVIDd: 2.38 cm (3.9-5.9cm) LVIDs: 1.63 cm LV Mass Index: 55.1 g/m2 LV % FS 31.5 % LA VOLUME: Normal Ranges: LA Vol A4C: 35.1 ml (22+/-6mL/m2) LA Vol A2C: 39.7 ml LA Vol BP: 40.7 ml LA Vol Index A4C: 18.0ml/m2 LA Vol Index A2C: 20.3 ml/m2 LA Vol Index BP: 20.8 ml/m2 LA Area A4C: 15.9 cm2 LA Area A2C: 15.5 cm2 LA [place] A4C: 6.1 cm LA [place] A2C: 5.2 cm LA Volume Index: 20.0 ml/m2 LA Vol A4C: 33.9 ml LA Vol A2C: 39.0 ml LV SYSTOLIC FUNCTION BY 2D PLANIMETRY (MOD): Normal Ranges: EF-A4C View: 30.9 % (>=55%) LV DIASTOLIC FUNCTION: Normal Ranges: MV Peak E: 0.38 m/s (0.7-1.2 m/s) (more content not included)... 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 Study Detail: The following Echo studies were performed: 2D, M-Mode, Doppler and color flow. Definity used as a contrast agent for endocardial border definition. Total contrast used for this procedure was 1 mL via IV push. A bubble study was not performed. The patient was awake. PHYSICIAN INTERPRETATION: Left Ventricle: Left ventricular systolic function is normal, with an estimated ejection fraction of 60%. There are no regional wall motion abnormalities. The left ventricular cavity size is normal. There is moderate concentric left ventricular hypertrophy. Spectral Doppler shows an impaired relaxation pattern of left ventricular diastolic filling. Left Atrium: The left atrium is normal in size. Right Ventricle: The right ventricle is moderately enlarged. There is reduced right ventricular systolic function. Right Atrium: The right atrium is severely dilated. Aortic Valve: The aortic valve is trileaflet. There is no evidence of aortic valve regurgitation. The peak instantaneous gradient of the aortic valve is 3.9 mmHg. The mean gradient of the aortic valve is 2.0 mmHg. Mitral Valve: The mitral valve is normal in structure. There is no evidence of mitral valve regurgitation. Tricuspid Valve: The tricuspid valve is structurally normal. There is severe tricuspid regurgitation. RV-RA gradient 102mm Hg. Pulmonic Valve: The pulmonic valve is not well visualized. There is mild pulmonic valve regurgitation. Pericardium: There is a small pericardial effusion. Aorta: The aortic root is normal. Systemic Veins: The inferior vena cava appears dilated. There is less than 50% IVC collapse with inspiration. CONCLUSIONS: 1. Left ventricular systolic function is normal with a 60% estimated ejection fraction. 2. Spectral Doppler shows an impaired relaxation pattern of left ventricular diastolic filling. 3. There is moderate concentric left ventricular hypertrophy. 4. Enlarged right ventricle with reduced systolic function. 5. D-shaped septum in systole and diastole, consistent with right ventricular pressure and volume overload. 6. Severe tricuspid regurgitation. 7. The right atrium is severely dilated. 8. Calculated right ventricular systolic pressure is 117mm Hg. 9. Small pericardial effusion with no echocardiographic evidence of tamponade. 10. Consult team informed of findings. 11. Findings are consistent with severe Pulmonary Hypertension; presence of pericardial effusion and RV systolic dysfunction are high-risk markers. QUANTITATIVE DATA SUMMARY: 2D MEASUREMENTS: Normal Ranges: Ao Root d: 2.80 cm (2.0-3.7cm) LAs: 2.90 cm (2.7-4.0cm) IVSd: 1.47 cm (0.6-1.1cm) LVPWd: 1.37 cm (0.6-1.1cm) LVIDd: 2.38 cm (3.9-5.9cm) LVIDs: 1.63 cm LV Mass Index: 55.1 g/m2 LV % FS 31.5 % LA VOLUME: Normal Ranges: LA Vol A4C: 35.1 ml (22+/-6mL/m2) LA Vol A2C: 39.7 ml LA Vol BP: 40.7 ml LA Vol Index A4C: 18.0ml/m2 LA Vol Index A2C: 20.3 ml/m2 LA Vol Index BP: 20.8 ml/m2 LA Area A4C: 15.9 cm2 LA Area A2C: 15.5 cm2 LA [place] A4C: 6.1 cm LA [place] A2C: 5.2 cm LA Volume Index: 20.0 ml/m2 LA Vol A4C: 33.9 ml LA Vol A2C: 39.0 ml LV SYSTOLIC FUNCTION BY 2D PLANIMETRY (MOD): Normal Ranges: EF-A4C View: 30.9 % (>=55%) LV DIASTOLIC FUNCTION: Normal Ranges: MV Peak E: 0.38 m/s (0.7-1.2 m/s) MV Peak A: 0.62 m/s (0.42-0.7 m/s) E/A Ratio: 0.62 (1.0-2.2) MV e' 0.08 m/s (>8.0) MV lateral e' 0.09 m/s MV medial e' 0.08 m/s E/e' Ratio: 4.79 (<8.0) MITRAL VALVE: Normal Ranges: MV DT: 324 msec (150-240msec) AORTIC VALVE: Normal Ranges: AoV Vmax: 0.99 m/s (<=1.7m/s) AoV Peak P.9 mmHg (<20mmHg) AoV Mean P.0 mmHg (1.7-11.5mmHg) LVOT Max Edita: 0.80 m/s (<=1.1m/s) AoV VTI: 17.40 cm (18-25cm) LVOT VTI: 11.40 cm LVOT Diameter: 2.20 cm (1.8-2.4cm) AoV Area, VTI: 2.49 cm2 (2.5-5.5cm2) AoV Area,Vmax: 3.06 cm2 (2.5-4.5cm2) AoV Dimensionless Index: 0.66 RIGHT VENTRICLE: RV Basal 4.07 cm RV Mid 3.07 cm R (more content not included)... [facility] Work Phone: XR Tibia and Fibula - left 2 Viewson 04-09-2023 1. No fracture or dislocation. MACRO: None. Signed by: Liang Robles 04/09/2023 11:17 AM Dictation workstation: [id number] EDUARDO PLUNKETT Interpreted By: Liang Robles, STUDY: XR TIBIA FIBULA LEFT 2 VIEWS 04/07/2023 11:32 am INDICATION: Signs/Symptoms:chronic left leg wound COMPARISON: None. ACCESSION NUMBER(S): [id number] ORDERING CLINICIAN: FELICIA BARBOSA TECHNIQUE: 2 views of the left tibia and fibula including AP and lateral projections were obtained. FINDINGS: There is no evidence of acute fracture or dislocation identified. The joint spaces are well preserved throughout without significant degenerative changes. EDUARDO MMODAL Liang Robles MD - 04/09/2023 Interpreted By: Liang Robles, STUDY: XR TIBIA FIBULA LEFT 2 VIEWS 04/07/2023 11:32 am INDICATION: Signs/Symptoms:chronic left leg wound COMPARISON: None. ACCESSION NUMBER(S): [id number] ORDERING CLINICIAN: FELICIA BARBOSA TECHNIQUE: 2 views of the left tibia and fibula including AP and lateral projections were obtained. FINDINGS: There is no evidence of acute fracture or dislocation identified. The joint spaces are well preserved throughout without significant degenerative changes. IMPRESSION: 1. No fracture or dislocation. MACRO: None. Signed by: Liang Robles 04/09/2023 11:17 AM Dictation workstation: [id number] [facility] Work Phone: XR Tibia and Fibula - left 2 ViewsOrdered By: Liang Robles on 04-09-2023 [facility] Work Phone: Bacteria identified Cx Nom ( Unsp spec)Ordered By: Charlene Mendoza on 04-08-2023 Interpretation and review of laboratory results Abnormal [facility] Microscopic observation Gram stain Nom (Unsp spec) (3+) Moderate Polymorphonuclear leukocytes Abnormal [facility] Microscopic observation Gram stain Nom (Unsp spec) (4+) Abundant Mixed Gram positive and Gram negative bacteria Abnormal [facility] Basic metabolic 2000 panelon 04-08-2023 Anion gap [Moles/Vol] 13 mmol/L 10 - 2 0 mmol/L [facility] Calcium [Mass/Vol] 8.6 mg/dL 8.6 - 10. 3 mg/dL [facility] Chloride [Moles/Vol] 106 mmol/L 98 - 10 7 mmol/L [facility] CO2 [Moles/Vol] 19 mmol/L Low 21 - 32 mmol/L [facility] Creatinine [Mass/Vol] 1.33 mg/dL High 0.50 - 1.05 mg/dL [facility] GFR/1.73 sq M.predicted among non-blacks MDRD (S/P/Bld) [Vol rate/Area] 52 mL/min/{1.73_m2} Low - PINF [facility] [facility] Comment on above: Calculations of raul mated GFR are performed using the 2020 CKD-EPI Study Refit equation without the race variable for the IDMS-Traceable creatinine methods. https://jasn.asnjournals.org/content/early//ASN.450564 0731 Glucose [Mass/Vol] 143 mg/dL High 74 - 99 mg/dL [facility] Interpretation and review of laboratory results Abnormal [facility] Potassium [Moles/Vol] 4.8 mmol/L 3.5 - 5.3 mmol/L [facility] Sodium [Moles/Vol] 133 mmol/L Low 136 - 145 mmol/L [facility] Urea nitrogen [Mass/Vol] 26 mg/dL High 6 - 23 mg/dL [facility] CBC panel Auto (Bld)on 04-08 Erythrocyte distribution width (RBC) [Ratio] 15.1 % High 11.5 - 14.5 % [facility] Hematocrit (Bld) [Volume fraction] 47.6 % High 36.0 - 46.0 % [facility] Hemoglobin (Bld) [Mass/Vol] 14.7 g/dL 12.0 - 16.0 g/dL [facility] Interpretation and review of laboratory results Abnormal [facility] MCH (RBC) [Entitic mass] 27.8 pg 26.0 - 34.0 pg [facility] MCHC (RBC) [Mass/Vol] 30.9 g/dL Low 32.0 - 36.0 g/dL [facility] MCV (RBC) [Entitic vol] 90 fL 80 - 100 fL [facility] Nucleated RBC/100 WBC (Bld) [Ratio] 0.0 % [facility] Platelets (Bld) [#/Vol] 184 10*3/uL [facility] RBC (Bld) [#/Vol] 5.29 10*6/uL High [facility] WBC (Bld) [#/Vol] 10.0 10*3/uL [facility] Tissue/Wound Culture/SmearOr dered By: Charlene Mendoza on 04-08-2023 Bacteria identified Cx Nom (Unsp spec) (4+) Abundant Methicillin Susceptible Staphylococcus aureus (MSSA) Abnormal [facility] Bacteria identified Cx Nom (Unsp spec) Negative [facility] Basic metabolic 2000 panelon 04-07-2023 Anion gap [Moles/Vol] 14 mmol/L 10 - 2 0 mmol/L [facility] Calcium [Mass/Vol] 8.4 mg/dL Low 8.6 - 10. 3 mg/dL [facility] Chloride [Moles/Vol] 107 mmol/L 98 - 10 7 mmol/L [facility] CO2 [Moles/Vol] 20 mmol/L Low 21 - 32 mmol/L [facility] Creatinine [Mass/Vol] 1.14 mg/dL High 0.50 - 1.05 mg/dL [facility] GFR/1.73 sq M.predicted among non-blacks MDRD (S/P/Bld) [Vol rate/Area] 63 mL/min/{1.73_m2} - PINF [facility] Comment on above: Calculations of raul mated GFR are performed using the 2020 CKD-EPI Study Refit equation without the race variable for the IDMS-Traceable creatinine methods. https://jasn.asnjournals.org/content//ASN.187101 0588 Glucose [Mass/Vol] 110 mg/dL High 74 - 99 mg/dL [facility] Interpretation and review of laboratory results Abnormal [facility] Potassium [Moles/Vol] 4.4 mmol/L 3.5 - 5.3 mmol/L [facility] Sodium [Moles/Vol] 137 mmol/L 136 - 145 mmol/L [facility] Urea nitrogen [Mass/Vol] 16 mg/dL 6 - 23 mg/dL [facility] CBC panel Auto (Bld)on 04-07 Erythrocyte distribution width (RBC) [Ratio] 15.4 % High 11.5 - 14.5 % [facility] Hematocrit (Bld) [Volume fraction] 47.6 % High 36.0 - 46.0 % [facility] Hemoglobin (Bld) [Mass/Vol] 14.4 g/dL 12.0 - 16.0 g/dL [facility] Interpretation and review of laboratory results Abnormal [facility] MCH (RBC) [Entitic mass] 27.5 pg 26.0 - 34.0 pg [facility] MCHC (RBC) [Mass/Vol] 30.3 g/dL Low 32.0 - 36.0 g/dL [facility] MCV (RBC) [Entitic vol] 91 fL 80 - 100 fL [facility] Nucleated RBC/100 WBC (Bld) [Ratio] 0.0 % [facility] Platelets (Bld) [#/Vol] 158 10*3/uL [facility] RBC (Bld) [#/Vol] 5.24 10*6/uL High [facility] WBC (Bld) [#/Vol] 7.8 10*3/uL [facility] No Panel Informationon 04-07 [facility] Vancomycin trough [Mass/Vol] on 04-07-2023 Interpretation and review of laboratory results Normal [facility] Vancomycin, Troughon Vancomycin trough [Mass/Vol] 13.5 ug/mL 5.0 - 20.0 ug/mL [facility] Comment on above: Therapeutic Ranges: Peak (all ages): 30.0-40.0 ug/mL Trough (all ages): 10.0-20.0 ug/mL Vancomycin trough concentrations drawn immediately prior to the next dose at steady-state are preferred for concentration-guided monitoring of patients treated with vancomycin. Reference: Am J Health-Syst Pharm. 2020; 77(11):835-864. XR Tibia and Fibula - left 2 Viewson 04-07-2023 Radiology Study observation (narrative) [facility] Work Phone: C-Reactive Proteinon 024 CRP [Mass/Vol] 0.99 mg/dL NINF - 1.00 mg/dL [facility] CBC W Auto Differential pane l (Bld)on 04-06-2023 Basophils (Bld) [#/Vol] 0.04 10*3/uL [facility] Basophils/100 WBC (Bld) 0.7 % 0.0 - 2.0 % [facility] Eosinophils (Bld) [#/Vol] 0.13 10*3/uL [facility] Eosinophils/100 WBC (Bld) 2.2 % 0.0 - 6.0 % [facility] Erythrocyte distribution width (RBC) [Ratio] 15.5 % High 11.5 - 14.5 % [facility] Hematocrit (Bld) [Volume fraction] 44.5 % 36.0 - 46.0 % [facility] Hemoglobin (Bld) [Mass/Vol] 14.2 g/dL 12.0 - 16.0 g/dL [facility] Immature granulocytes (Bld) [#/Vol] 0.01 10*3/uL [facility] Immature granulocytes/100 WBC (Bld) 0.2 % 0.0 - 0.9 % [facility] Comment on above: Immature Granulocyte Count (IG) includes promyelocytes, myelocytes and metamyelocytes but does not include bands. Percent differential counts (%) should be interpreted in the context of the absolute cell counts (cells/UL). Interpretation and review of laboratory results Abnormal [facility] Lymphocytes (Bld) [#/Vol] 1.04 10*3/uL Low [facility] Lymphocytes/100 WBC (Bld) 17.9 % 13.0 - 44.0 % [facility] MCH (RBC) [Entitic mass] 28.4 pg 26.0 - 34.0 pg [facility] MCHC (RBC) [Mass/Vol] 31.9 g/dL Low 32.0 - 36.0 g/dL [facility] MCV (RBC) [Entitic vol] 89 fL 80 - 100 fL [facility] Monocytes (Bld) [#/Vol] 0.54 10*3/uL [facility] Monocytes/100 WBC (Bld) 9.3 % 2.0 - 10.0 % [facility] Neutrophils (Bld) [#/Vol] 4.04 10*3/uL [facility] Comment on above: Percent differential counts (%) should be interpreted in the context of the absolute cell counts (cells/uL). Neutrophils/100 WBC (Bld) 69.7 % 40.0 - 80.0 % [facility] Nucleated RBC/100 WBC (Bld) [Ratio] 0.0 % [facility] Platelets (Bld) [#/Vol] 143 10*3/uL Low [facility] RBC (Bld) [#/Vol] 5.00 10*6/uL [facility] WBC (Bld) [#/Vol] 5.8 10*3/uL [facility] CRP [Mass/Vol]on 04-06-2023 Interpretation and review of laboratory results Normal [facility] CT Lower leg - left W [address] st SILVAon 04-06-2023 Diffuse edematous change involving the calf and ankle consistent with cellulitis. Prominent deep ulcer along the anterior lower calf is observed. The underlying tibia shows no erosion. If there is high concern for osteomyelitis, correlate with MRI. 1 cm fluid density residing in the plantar aspect of the patients heel which may represent small abscess. Alternatively, this could represent a region of induration/decubitus change. No calcaneal erosions. Signed by Navjot Ruvalcaba MD TELERADIOLOGY STUDY: CT Extremity; Completed Time: 04/06/2023 10:29 AM INDICATION: Wound of left tibia fibula. COMPARISON: None Available. ACCESSION NUMBER(S): [id number] ORDERING CLINICIAN: JOSUÉ IGLESIAS TECHNIQUE: Thin section axial images were obtained through the left tibia fibula with intravenous contrast. Orthogonal reconstructed images were obtained and reviewed. Omnipaque 350 70 mL was administered intravenously. Automated mA/kV exposure control was utilized and patient examination was performed in strict accordance with principles of ALARA. FINDINGS: Osseous structures demonstrate no evidence for acute fracture or dislocation. The tarsometatarsal joints are intact. There is focal calcific tendinosis involving the posterior tibialis. Distal Achilles is within normal limits. There is subcutaneous edema consistent with cellulitis. Along the plantar aspect of the patient's heel, there is a 1 cm Soft tissue density surrounding small central fluid density which may represent a small abscess. Clinical correlation is recommended. There is no calcaneal erosion. There is also prominent deep ulcer in the pretibial tissues measuring up to 1 cm in depth. No lytic or blastic tibial lesions. Varicosities noted within the subcutaneous tissues. Visualized calf muscles appear homogeneous in attenuation. TELERADIOLOGY Navjot Ruvalcaba MD - 04/06/2023 STUDY: CT Extremity; Completed Time: 04/06/2023 10:29 AM INDICATION: Wound of left tibia fibula. COMPARISON: None Available. ACCESSION NUMBER(S): [id number] ORDERING CLINICIAN: JOSUÉ IGLESIAS TECHNIQUE: Thin section axial images were obtained through the left tibia fibula with intravenous contrast. Orthogonal reconstructed images were obtained and reviewed. Omnipaque 350 70 mL was administered intravenously. Automated mA/kV exposure control was utilized and patient examination was performed in strict accordance with principles of ALARA. FINDINGS: Osseous structures demonstrate no evidence for acute fracture or dislocation. The tarsometatarsal joints are intact. There is focal calcific tendinosis involving the posterior tibialis. Distal Achilles is within normal limits. There is subcutaneous edema consistent with cellulitis. Along the plantar aspect of the patient's heel, there is a 1 cm Soft tissue density surrounding small central fluid density which may represent a small abscess. Clinical correlation is recommended. There is no calcaneal erosion. There is also prominent deep ulcer in the pretibial tissues measuring up to 1 cm in depth. No lytic or blastic tibial lesions. Varicosities noted within the subcutaneous tissues. Visualized calf muscles appear homogeneous in attenuation. IMPRESSION: Diffuse edematous change involving the calf and ankle consistent with cellulitis. Prominent deep ulcer along the anterior lower calf is observed. The underlying tibia shows no erosion. If there is high concern for osteomyelitis, correlate with MRI. 1 cm fluid density residing in the plantar aspect of the patients heel which may represent small abscess. Alternatively, this could represent a region of induration/decubitus change. No calcaneal erosions. Signed by Navjot Ruvalcaba MD [facility] Work Phone: Radiology Study observation (narrative) [facility] Work Phone: CT Lower leg - left W contra st IVOrdered By: Navjot Ruvalcaba on 04-06-2023 [facility] Work Phone: Comprehensive metabolic 2000 panelon 04-06-2023 Albumin BCP dye [Mass/Vol] 3.7 g/dL 3.4 - 5.0 g/dL [facility] ALP [Catalytic activity/Vol] 245 U/L High 33 - 110 U/L [facility] ALT With P-5'-P [Catalytic activity/Vol] 13 U/L 7 - 45 U/L [facility] Comment on above: Patients treated wit h Sulfasalazine may generate falsely decreased results for ALT. Anion gap [Moles/Vol] 12 mmol/L 10 - 2 0 mmol/L [facility] AST With P-5'-P [Catalytic activity/Vol] 14 U/L 9 - 39 U/L [facility] Bilirubin [Mass/Vol] 1.3 mg/dL High 0.0 - 1 .2 mg/dL [facility] Calcium [Mass/Vol] 9.0 mg/dL 8.6 - 10. 3 mg/dL [facility] Chloride [Moles/Vol] 108 mmol/L High 98 - 10 7 mmol/L [facility] CO2 [Moles/Vol] 24 mmol/L 21 - 32 mmol/L [facility] Creatinine [Mass/Vol] 0.93 mg/dL 0.50 - 1.05 mg/dL [facility] GFR/1.73 sq M.predicted among non-blacks MDRD (S/P/Bld) [Vol rate/Area] 80 mL/min/{1.73_m2} - PINF [facility] Comment on above: Calculations of raul mated GFR are performed using the 2020 CKD-EPI Study Refit equation without the race variable for the IDMS-Traceable creatinine methods. https://jasn.asnjournals.org/content//ASN.083854 4508 Glucose [Mass/Vol] 107 mg/dL High 74 - 99 mg/dL [facility] Interpretation and review of laboratory results Abnormal [facility] Potassium [Moles/Vol] 3.9 mmol/L 3.5 - 5.3 mmol/L [facility] Protein [Mass/Vol] 6.2 g/dL Low 6.4 - 8.2 g/dL [facility] Sodium [Moles/Vol] 140 mmol/L 136 - 145 mmol/L [facility] Urea nitrogen [Mass/Vol] 14 mg/dL 6 - 23 mg/dL [facility] ESR Westergren method (Bld) [Velocity]on 04-06-2023 ESR (Bld) [Velocity] 27 mm/h High 0 - 20 mm/h [facility] Interpretation and review of laboratory results Abnormal [facility] Lactateon 04-06-2023 Lactate [Moles/Vol] 0.8 mmol/L 0.4 - 2. 0 mmol/L [facility] Lactate [Moles/Vol]on 2023 Interpretation and review of laboratory results Normal [facility] Venipuncture immediately after or during the administration of Metamizole may lead to falsely low results. Testing should be performed immediately prior to Metamizole dosing. [facility] No Panel Informationon 04-06 [facility] SST TOPon 04-06-2023 Extra Tube Hold for add-ons. [facility] Comment on above: Auto resulted. [facility] Provider Note - ED v3on 11-11 Provider Note - ED v3 Provider Note: Results/Vital Signs: Pediatric Clinical Scoring (DIANA) is no recent DIANA charted on this account Chart Review: ED NOTES ED NOTES: Chief complaint: #1 hand wound #2 leg wound History of chief complaint: Patient presents to the emergency department with multiple nonhealing wounds. 1 is over the distal tip of the third digit of the right hand. The other is over the anterior left pretibial region. The patient states that the hand wound has been there for several months and that the more over her leg has been there for several years. Apparently she was being seen at a wound care center by [facility] up until recently but she was apparently not satisfied with their care so I never went back. She presents now to be further evaluated. The medical record was reviewed. This contributed directly to patient care. It appears the patient has been seen here at our facility for these issues recently as well. Allergies: Reviewed Home medications: Reviewed Medical history: Reviewed Surgical history: Reviewed Family history: Reviewed Social history: Reviewed Review of systems: I have reviewed constitutional HEENT cardiovascular pulmonary gastrointestinal genitourinary dermatologic psychiatric musculoskeletal neurologic and except where mentioned above all other systems are noted to be unremarkable. Nursing notes have been reviewed Physical examination: General appearance: Patient is sitting up in bed and appears well. Not toxic in appearance HEENT: Normocephalic and atraumatic Neck: Trachea is midline Cardiac: Regular sinus rate and rhythm. No murmurs. Lungs: Clear to auscultation bilaterally without wheezing Musculoskeletal: No gross bony deformity identified Neurologic: Moving all 4 extremities independently Dermatologic: Patient has an ulcer over the distal pad of the tip of the third digit of the right hand. This measures approximately 1 cm in the long axis and 1/2 cm in the short axis. Additionally she has a similar ulcer that is approximately 3 cm in circumference over the distal anterior left pretibial region. There is no evidence of cellulitis or discharge. The wounds are not foul-smelling. Psychiatric: Awake, alert, and oriented Clinical course: The patient's wounds were dressed by the nursing staff Medical decision making: Patient presents to the emergency department secondary to chronic nonhealing ulcers. Again they have been present for months if not longer. She was previously established with a wound care physician but again has apparently been noncompliant/not satisfied with their care. I do not feel the patient needs further treatment on an emergent basis but I do feel that follow-up with a technology infusion specialist is of the utmost importance Assessment: Chronic nonhealing wounds of the third digit right hand and left pretibial region Plan: Patient was given wound care instructions and referred to wound care. Return for any other ongoing concerns HISTORY OF PRESENTING ILLNESS JAYNA is a 37 year old Female and was seen by me at 05-Dec-2022 13:30 for a chief complaint of wound check (Amb to Ed with wound to RMF x 2 months and wound to LLE x 1 year. She reports that she was seeing the wound clinic for both and they messed them up and she is never going back.)(1). Triage Information: Most recent Vital Sign Value Date Temp (F): 98.7 12-05-2022 13:45 Temp (C): 37 12-05-2022 13:45 Heart Rate (beats/min): 89 12-05-2022 13:45 Respirations (breaths/min): 16 12-05-2022 13:45 SpO2 (%): 99 12-05-2022 13:45 BP Systolic (mm Hg): 144 12-05-2022 13:45 BP Diastolic (mm Hg): 90 12-05-2022 13:45 PAST MEDICAL HISTORY ALLERGIES/INTOLERANCES: No Known Allergies HEALTH HISTORY: No documented data. OUTPATIENT MEDICATIONS: Home Medications Review Status for Reconciliation: N/A Med Status: Patient Currently Takes Medications Drug Name: lisinopril 2.5 mg oral tablet Instructions: 1 tab(s) orally once a day Drug Name: loratadine Instructions: null Drug Name: busPIRone Instructions: null Drug Name: cefadroxil 500 mg oral capsule Instructions: 2 cap(s) orally to start, then 1 capsule 2 times a day x 10 days. Take with a meal. Drug Name: mupirocin 2% topical ointment Instructions: Apply topically to affected area 3 times a day x 10 days Drug Name: doxycycline hyclate 100 mg oral tablet Instructions: 1 tab(s) orally 2 times a day Drug Name: ketorolac 10 mg oral tablet Instructions: 1 tab(s) orally 4 times a day SIGNIFICANT EVENTS: Past Medical History Description:Hypertensio n (HTN) Description:Borderline diabetic DISPOSITION Diagnosis/Annotation: ED Dx Name:Chronic wound Code:T14.8XXA Disposition: discharged Type: home CONSULT CRITICAL CARE TIME Is this a critically ill patient: no Electronic Signatures: Juno Marquez (DO) (more content not included)... Normal [facility] Triage - EDon 12-05-2022 Triage - ED Quick Triage: Are You no Have You Given In The Last 6 Weeksno Are You Currently Breastfeedingno The patient and/or guardian verbally acknowledges placement for services into the following (when Urgent Care Service hours are operating):emergency department Chart Review: ARRIVAL INFORMATION Mode of Arrival: private vehicle CHIEF COMPLAINT JAYNA SMITH is a Female patient with a chief complaint of wound check (Amb to Ed with wound to RMF x 2 months and wound to LLE x 1 year. She reports that she was seeing the wound clinic for both and they messed them up and she is never going back.). Triage Date/Time: 05-Dec-2022 13:27 ELSY: 3 Pain Rating (0-10): 10 = Severe Pain location: RMF and LLE Vital Signs: Temperature: 98.7F ( 37.0C) taken temporal Blood Pressure: 144/90 Mean: Heart Rate: 89 Respiratory Rate: 16 Pulse Oximetry: 99% on room air, no respiratory support. Weight: 171.9 pounds. Calculated 78.0 kg. [place] Coma Scale: Best Eye Response: (E4) spontaneous Best Motor Response: (M6) obeys commands Best Verbal Response: (V5) oriented [place] Score: 15 Cough lasting greater than 3 weeks: no Allergies: no Last menstrual period: unknown Patient has homicidal thoughts: no Symptom Notes: . Symptoms Are POSITIVE For: discharge, pain (describe) and redness. Risk Screens Suicide Risk Screen In the Past Month: Have you wished you were or wished you could go to sleep and not wake up no In the Past Month: Have you had any actual thoughts of killing yourself no In Your Lifetime: Have you ever done anything, started to do anything, or prepared to do anything to end your life no Pedraza Fall Scale Screening Has the patient fallen before (or is the patient in the ED as a result of a fall) has not had a fall Does the patient have an impaired gait does not have impaired gait Is the patient cognitively impaired not cognitively impaired Interventions: Pedraza Fall Interventions: LOW INTERVENTIONS: *patient oriented to surroundings and call system, * patient/family falls education completed and documented, *patients fall status communicated during bedside handoff, *whiteboard updated, *mode of toileting discussed with patient, *bed in low position with brakes locked, *call light in reach, * non-skid footwear TRAVEL HISTORY Travel History Coronavirus Screening: no exposure or symptoms Travel Exposure History: NO travel to International locations in the past 30 days PAIN Pain Scale Used: JOSUE Pain Rating (0-10): 10 = Severe Past Medical History: Past Medical History Reviewedyes Borderline diabetic: Past Medical History, Active Electronic Signatures: Jessa Sweeney (RN) (Signed 05-Dec-2022 13:47) Entered: Risk Screens, Pain, Travel History, Chart Review, Scores, Past Medical History Authored: Quick Triage, Risk Screens, Pain, Travel History, Chart Review, Scores, Past Medical History Last Updated: 05-Dec-2022 13:47 by Jessa Sweeney (JOHN) Normal [facility] ALBUMIN, URINE SPOTon 2022 ALBUMIN,URINE 82.8 mg/L Normal Not Established [facility] Comment on above: Performed By: #### A LBSP #### [facility] [id number] [place] [address] ALBUMIN/CREAT RATIO 154.2 ug/mg retail planning manager High 0.0 - 30.0 [facility] Comment on above: Performed By: #### A LBSP #### [facility] [address] [place] [address] CREATININE,URINE 53.7 mg/dL Normal 20.0 - 320.0 [facility] Comment on above: Performed By: #### A LBSP #### [facility] [address] [place] [address] ALBUMIN, URINE SPOTon 2022 Lab Specimen Source Urine Normal [facility] Comment on above: Performed By: #### A LBSP #### [facility] [address] [place] [address] CBC AND DIFFERENTIALon 11-17 % AUTOMATED IMMATURE GRAN 0.2 % Normal 0.0 - 0.9 [facility] Comment on above: Result Comment: Shaina ture Granulocyte Count (IG) includes promyelocytes, myelocytes and metamyelocytes but does not include bands. Percent differential counts (%) should be interpreted in the context of the absolute cell counts (cells/L). Performed By: #### C BCDF #### [address] [address] Basophils (Bld) [#/Vol] 0.07 10*3/uL Normal 0.00 - 0.10 [facility] Comment on above: Performed By: #### C BCDF #### [address] [address] Basophils/100 WBC (Bld) 0.8 % Normal 0.0 - 2.0 [facility] Comment on above: Performed By: #### C BCDF #### [address] [address] Eosinophils (Bld) [#/Vol] 0.36 10*3/uL Normal 0.00 - 0.70 [facility] Comment on above: Performed By: #### C BCDF #### [address] [address] [address] Eosinophils/100 WBC (Bld) 4.2 % Normal 0.0 - 6.0 [facility] Comment on above: Performed By: #### C BCDF #### [address] [address] Erythrocyte distribution width (RBC) [Ratio] 15.3 % High 11.5 - 14.5 [facility] Comment on above: Performed By: #### C BCDF #### [address] [address] Hematocrit (Bld) [Volume fraction] 53.8 % High 36.0 - 46.0 [facility] Comment on above: Performed By: #### C BCDF #### [address] [address] Hemoglobin (Bld) [Mass/Vol] 16.5 g/dL High 12.0 - 16.0 [facility] Comment on above: Performed By: #### C BCDF #### [address] [address] Lymphocytes (Bld) [#/Vol] 2.20 10*3/uL Normal 1.20 - 4.80 [facility] Comment on above: Performed By: #### C BCDF #### [address] [address] Lymphocytes/100 WBC (Bld) 25.5 % Normal 13.0 - 44.0 [facility] Comment on above: Performed By: #### C BCDF #### [address] [address] MCHC (RBC) [Mass/Vol] 30.7 g/dL Low 32.0 - 36.0 [facility] Comment on above: Performed By: #### C BCDF #### [address] [address] MCV (RBC) [Entitic vol] 91 fL Normal 80 - 100 [facility] Comment on above: Performed By: #### C BCDF #### [address] [address] Monocytes (Bld) [#/Vol] 0.65 10*3/uL Normal 0.10 - 1.00 [facility] Comment on above: Performed By: #### C BCDF #### [address] [address] Monocytes/100 WBC (Bld) 7.5 % Normal 2.0 - 10.0 [facility] Comment on above: Performed By: #### C BCDF #### [address] [address] Neutrophils (Bld) [#/Vol] 5.33 10*3/uL Normal 1.20 - 7.70 [facility] Comment on above: Result Comment: Perc ent differential counts (%) should be interpreted in the context of the absolute cell counts (cells/L). Performed By: #### C BCDF #### [address] [address] Neutrophils/100 WBC (Bld) 61.8 % Normal 40.0 - 80.0 [facility] Comment on above: Performed By: #### C BCDF #### [address] [address] Platelets (Bld) [#/Vol] 174 10*3/uL Normal 150 - 450 [facility] Comment on above: Performed By: #### C BCDF #### [address] [address] RBC 5.92 x10E12/L High 4.00 - 5.20 [facility] Comment on above: Performed By: #### C BCDF #### [address] [address] WBC (Bld) [#/Vol] 8.6 10*3/uL Normal 4.4 - 11.3 [facility] Comment on above: Performed By: #### C BCDF #### [address] [address] COMPREHENSIVE PANELon 2022 Albumin [Mass/Vol] 3.9 g/dL Normal 3.4 - 5.0 [facility] Comment on above: Performed By: #### C MP #### [address] [address] ALP [Catalytic activity/Vol] 220 U/L High 33 - 110 [facility] Comment on above: Performed By: #### C MP #### [address] [address] ALT [Catalytic activity/Vol] 37 U/L Normal 7 - 45 [facility] Comment on above: Result Comment: Karol ents treated with Sulfasalazine may generate falsely decreased results for ALT. Performed By: #### C MP #### [address] [address] Anion gap [Moles/Vol] 12 mmol/L Normal 10 - 20 [facility] Comment on above: Performed By: #### C MP #### [address] [address] AST [Catalytic activity/Vol] 28 U/L Normal 9 - 39 [facility] Comment on above: Performed By: #### C MP #### [address] [address] Bilirubin [Mass/Vol] 0.8 mg/dL Normal 0.0 - 1.2 [facility] Comment on above: Performed By: #### C MP #### [address] [address] Calcium [Mass/Vol] 9.4 mg/dL Normal 8.6 - 10.3 [facility] Comment on above: Performed By: #### C MP #### [address] [address] Chloride [Moles/Vol] 110 mmol/L High 98 - 107 [facility] Comment on above: Performed By: #### C MP #### [address] [address] Creatinine [Mass/Vol] 1.34 mg/dL High 0.50 - 1.05 [facility] Comment on above: Performed By: #### C MP #### [address] [address] GFR/1.73 sq M.predicted among non-blacks MDRD (S/P/Bld) [Vol rate/Area] 52 mL/min/{1.73_m2} Abnormal >90 [facility] Comment on above: Result Comment: CALC ULATIONS OF ESTIMATED GFR ARE PERFORMED USING THE 2020 CKD-EPI STUDY REFIT EQUATION WITHOUT THE RACE VARIABLE FOR THE IDMS-TRACEABLE CREATININE METHODS. https://jasn.asnjournals.org/content/early/ASN.654200 6855 Performed By: #### C MP #### [place] [id number] Glucose [Mass/Vol] 126 mg/dL High 74 - 99 [facility] Comment on above: Performed By: #### C MP #### [place] [id number] HCO3 (Bld) [Moles/Vol] 25 mmol/L Normal 21 - 32 [facility] Comment on above: Performed By: #### C MP #### [place] [address] Potassium [Moles/Vol] 4.3 mmol/L Normal 3.5 - 5.3 [facility] Comment on above: Performed By: #### C MP #### [place] [address] Protein [Mass/Vol] 6.5 g/dL Normal 6.4 - 8.2 [facility] Comment on above: Performed By: #### C MP #### [place] [address] Sodium [Moles/Vol] 143 mmol/L Normal 136 - 145 [facility] Comment on above: Performed By: #### C MP #### [place] [address] Urea nitrogen [Mass/Vol] 17 mg/dL Normal 6 - 23 [facility] Comment on above: Performed By: #### C MP #### [place] [address] FERRITINon 11-17-2022 FERRITIN 251 ug/L High 8 - 150 [facility] Comment on above: Performed By: #### F ERRI #### [place] [address] Lab Specimen Source Normal [facility] Comment on above: Performed By: #### F ERRI #### [place] [address] Performed By: #### C BCDF #### [place] [address] Performed By: #### I RONT #### [place] [address] Performed By: #### M G #### [place] [address] Performed By: #### C MP #### [place] [id number] HEMOGLOBIN A1Con 11-17-2022 Glucose [Mass/Vol] 146 mg/dL Normal [facility] Comment on above: Performed By: #### H BA1E #### [place] [address] HbA1c (Bld) [Mass fraction] 6.7 % Abnormal [facility] Comment on above: Result Comment: Diag nosis of Diabetes-Adults Non-Diabetic: < or = 5.6% Increased risk for developing diabetes: 5.7-6.4% Diagnostic of diabetes: > or = 6.5% . Monitoring of Diabetes Age (y) Therapeutic Goal (%) Adults: >18 <7.0 Pediatrics: 13-18 <7.5 7-12 <8.0 0- 6 7.5-8.5 [place] [employer]. Diabetes Care 33(S1), Mar 2009. Performed By: #### H BA1E #### [place] [address] IRON + TIBCon 11-17-2022 % SATURATION 25 % Normal 25 - 45 [facility] Comment on above: Performed By: #### I RONT #### [place] [address] Iron [Mass/Vol] 81 ug/dL Normal 35 - 150 [facility] Comment on above: Performed By: #### I RONT #### [place] [address] TIBC 325 ug/dL Normal 240 - 445 [facility] Comment on above: Performed By: #### I RONT #### [place] [id number] MAGNESIUMon 11-17-2022 Magnesium [Mass/Vol] 1.69 mg/dL Normal 1.60 - 2.40 [facility] Comment on above: Performed By: #### M G #### [facility] [address] [place] [address] Culture, Anaerobic Any Sourc jose g 11-15-2022 CUAN L LEG ULCER No growth in 5 days. Normal [facility] Comment on above: Performed By: #### M 100.3000, M100.4001, M1.1999 #### [facility] [address] [place], [address] Wound Cultureon 11-11-2022 WC L LEG ULCER No growth aerobically. Normal [facility] Comment on above: Performed By: #### M 100.3000, M100.4001, M1.1999 #### [facility] [address] [place], [address] Anaerobic cultureOrdered By: Pato Correa on 11-10-2022 Bacteria identified Anaer cx Nom (Unsp spec) No growth in 5 days. [facility] Gram Stainon 11-10-2022 GS L LEG ULCER Gram Stain 4+ Red Blood Cells No organisms seen No White Blood Cells Normal [facility] Comment on above: Performed By: #### M 100.3000, M100.4001, M1 #### [facility] [address] [place], [place], [address] Gram stain for investigation of transfusion reactionOrdered By: Pato Correa on 11-10-2022 Microscopic observation Gram stain Nom (Unsp spec) [facility] Routine wound cultureOrdered By: Pato Correa on 11-10-2022 Bacteria identified Cx Nom (Wound) No growth aerobically. [facility] Anaerobic cultureOrdered By: Aubreyongbe Madeline on 11-09-2022 Bacteria identified Anaer cx Nom (Unsp spec) No growth in 5 days. [facility] Gram stain for investigation of transfusion reactionOrdered By: Pato Correa on 11-09-2022 Microscopic observation Gram stain Nom (Unsp spec) [facility] Routine wound cultureOrdered By: Efameliabe Madeline on 11-09-2022 Bacteria identified Cx Nom (Wound) No growth aerobically. [facility] PUBLIC HEALTH DENTIST - Office Visiton 10-11 PUBLIC HEALTH DENTIST - Office Visit Diagnoses/Problems Assessed History of ovarian cyst (V13.29) (Z87.42) Orders Ultrasound Pelvis Transabdominal With Transvaginal; Status:Hold For - Scheduling; Requested for:[id number]; Radiologist to Determine Optimal Study : Y What are the patient's signs and symptoms? : left ovarian cyst Provider Impressions 1. Left ovarian cyst Personally reviewed the pelvic ultrasound showing a normal size uterus. Endometrial thickness is 5 mm. Right ovary could not be identified. Left ovary shows a simple ovarian cyst measuring 7.6 cm which is smaller than the previous scan in December 2021 which showed the cyst measuring 8.1 cm. Patient was informed of the options of expectant management versus surgery for the ovarian cyst. Patient states she wishes to avoid surgery at this time. Therefore, recommend follow-up pelvic ultrasound in 6 months. Patient to follow-up in the office in 6 months to review ultrasound results. Chief Complaint Patient is here to review ultrasound. History of Present IllnessPatient presents to review recent pelvic ultrasound regarding a left ovarian cyst. Patient is using nothing for contraception as she is planning to try to conceive in the near future. She denies any bowel or bladder problems. Denies any abdominal pain at this time. Review of Systems Review of Systems: Constitutional: No fever or chills Respiratory: No shortness of breath, or cough Cardiovascular: No chest pain or syncope Breasts: No breast pain, no masses, no nipple discharge Gastrointestinal: No nausea, vomiting, or diarrhea, no abdominal pain Genitourinary: No dysuria or frequency Gynecology: Negative except as noted in history of present illness All other: All other systems reviewed and negative for complaint Active Problems Problems Abnormal uterine bleeding (AUB) (626.9) (N93.9) Amenorrhea (626.0) (N91.2) BMI 31.0-31.9,adult (V85.31) (Z68.31) BPPV (benign paroxysmal positional vertigo) (386.11) (H81.10) Cellulitis of left lower extremity (682.6) (L03.116) Cervix dysplasia (622.10) (N87.9) Chronic renal insufficiency, stage III (moderate) (585.3) (N18.30) Class 1 obesity due to excess calories with serious comorbidity and body mass index (BMI) of 31.0 to 31.9 in adult (278.00,V85.31) (E66.09,Z68.31) Contraceptive management (V25.9) (Z30.9) Dysplasia of cervix, low grade (HENRIETTA 1) (622.11) (N87.0) Elevated LFTs (790.6) (R79.89) Essential hypertension (401.9) (I10) ELIZABETH (generalized anxiety disorder) (300.02) (F41.1) GERD (gastroesophageal reflux disease) (530.81) (K21.9) Glucose intolerance (impaired glucose tolerance) (790.22) (R73.02) Headache, acute (784.0) (R51.9) 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) History of ovarian cyst (V13.29) (Z87.42) Hypertriglyceridemia (272.1) (E78.1) Left leg swelling (729.81) (M79.89) Leg edema (782.3) (R60.0) Lesion of left ovary (620.9) (N83.9) LGSIL on Pap smear of cervix (795.03) (R87.612) Low serum HDL (272.9) (R74.8) Motion sickness (994.6) (T75.3XXA) Negative test (V72.41) (Z32.02) Numbness and tingling of foot (782.0) (R20.0,R20.2) Ovarian cyst, complex (620.2) (N83.299) Pain of left lower extremity (729.5) (M79.605) PND (post-nasal drip) (784.91) (R09.82) Raynauds disease (443.0) (I73.00) 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) Screening for breast cancer (V76.10) (Z12.39) Screening for cervical cancer (V76.2) (Z12.4) Seasonal allergies (477.9) (J30.2) Vaginal lesion (623.8) (N89.8) Varicose veins of legs (454.9) (I83.93) Women's annual routine gynecological examination (V72.31) (Z01.419) Wound of left ankle, initial encounter (891.0) (S91.002A) Past Medical History Problems History of Chlamydia (079.98) (A74.9) History of Papanicolaou smear (V45.89) (Z98.890) 03/16/2020-ASC-US HPV NEG 09/02/2018-LSIL, HPV NEG ASCUS HPV Neg 2015 WNL 2014 LGSIL+HPV History of (V13.29) 12/2006 Male 3629g VAVD 2007 SAB 04/2012 F 3260g History of Influenza vaccination declined (V64.06) (Z28.21) REFUSED Surgical History Problems History of Colposcopy 06/02/20222018-HENRIETTA I 2014 History of Loop electrosurgical excision procedure 08/17/2014: Dr. Temple History of Oral surgery Family History Father Family history of osteoporosis (V17.81) (Z82.62) Other Family history of asthma (V17.5) (Z82.5) Family history of diabetes mellitus (V18.0) (Z83.3) Family history of hypertension (V17.49) (Z82.49) Family history of myocardial infarction (V17.3) (Z82.49) Social History Problems Denies alcohol consumption (V49.89) (Z78.9) Electronic cigarette use (305.1) (Z78.9) Feels safe at home Former smoker (V15.82) (Z87.891) No advance directives (V49.89) (Z78.9) No illicit drug use Sexually active Allergies Medication amLODIPine Besylate TABS Edema; Recorded By: Rae Rosenberg; 09/24/2019 10:32:36 AM Current Meds Medication NameInstruction bus (more content not included)... Normal [facility] No Panel Informationon 10-26 Normal [facility] Work Phone: LMPon 10-24-2022 Last menstrual period start date 16Aug2022 [facility] Work Phone: PUBLIC HEALTH DENTIST - Office Visiton 10-10 PUBLIC HEALTH DENTIST - Office Visit Diagnoses/Problems Assessed History of ovarian cyst (V13.29) (Z87.42) Orders Ultrasound Pelvis Transabdominal With Transvaginal; Status:Hold For - Scheduling; Requested for:[id number]; Radiologist to Determine Optimal Study : Y What are the patient's signs and symptoms? : left ovarian cyst Provider Impressions 1. History of left ovarian cyst Will obtain follow-up pelvic ultrasound since her last pelvic ultrasound was performed in December 2021. Follow-up in 1 to 2 weeks to review ultrasound results and to discuss treatment options. Chief Complaint Patient is here to discuss surgery for her left ovarian cyst. Patient states she is having a lot of pain with it and would like surgery. LMP: 08/16/22 History of Present IllnessPatient presents wishing to discuss surgery regarding the left ovarian cyst. She states that she has intermittent pain on the left side and wishes to discuss surgery. Last menstrual period was in August. She is using nothing for contraception at this time. Review of Systems Review of Systems: Constitutional: No fever or chills Respiratory: No shortness of breath, or cough Cardiovascular: No chest pain or syncope Breasts: No breast pain, no masses, no nipple discharge Gastrointestinal: No nausea, vomiting, or diarrhea, no abdominal pain Genitourinary: No dysuria or frequency Gynecology: Negative except as noted in history of present illness All other: All other systems reviewed and negative for complaint Active Problems Problems Abnormal uterine bleeding (AUB) (626.9) (N93.9) Amenorrhea (626.0) (N91.2) BMI 31.0-31.9,adult (V85.31) (Z68.31) BPPV (benign paroxysmal positional vertigo) (386.11) (H81.10) Cellulitis of left lower extremity (682.6) (L03.116) Cervix dysplasia (622.10) (N87.9) Chronic renal insufficiency, stage III (moderate) (585.3) (N18.30) Class 1 obesity due to excess calories with serious comorbidity and body mass index (BMI) of 31.0 to 31.9 in adult (278.00,V85.31) (E66.09,Z68.31) Contraceptive management (V25.9) (Z30.9) Dysplasia of cervix, low grade (HENRIETTA 1) (622.11) (N87.0) Elevated LFTs (790.6) (R79.89) Essential hypertension (401.9) (I10) ELIZABETH (generalized anxiety disorder) (300.02) (F41.1) GERD (gastroesophageal reflux disease) (530.81) (K21.9) Glucose intolerance (impaired glucose tolerance) (790.22) (R73.02) Headache, acute (784.0) (R51.9) 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) Hypertriglyceridemia (272.1) (E78.1) Left leg swelling (729.81) (M79.89) Leg edema (782.3) (R60.0) Lesion of left ovary (620.9) (N83.9) LGSIL on Pap smear of cervix (795.03) (R87.612) Low serum HDL (272.9) (R74.8) Motion sickness (994.6) (T75.3XXA) Negative test (V72.41) (Z32.02) Numbness and tingling of foot (782.0) (R20.0,R20.2) Ovarian cyst, complex (620.2) (N83.299) Pain of left lower extremity (729.5) (M79.605) PND (post-nasal drip) (784.91) (R09.82) Raynauds disease (443.0) (I73.00) 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) Screening for breast cancer (V76.10) (Z12.39) Screening for cervical cancer (V76.2) (Z12.4) Seasonal allergies (477.9) (J30.2) Vaginal lesion (623.8) (N89.8) Varicose veins of legs (454.9) (I83.93) Women's annual routine gynecological examination (V72.31) (Z01.419) Wound of left ankle, initial encounter (891.0) (S91.002A) Past Medical History Problems History of Chlamydia (079.98) (A74.9)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 instruction Cultural Considerationsnone Developmental Considerationsnone Faith Considerationsnone Other Learnersfamily Learning Assessment (Other Learner): Learning Assessment (Other Learner): Other learner availableyes... Learnerfamily Factors Influencing Readiness to Learnn/a Factors that Impact Ability to Learnnone Devices/Methods Used to Communicatenone Learning Preferencesverbal instruction Cultural Considerationsnone Developmental Considerationsnone Faith Considerationsnone Pressure Injury/TB/Substance: Pressure Injury: Do you have a coughno Smoking Statusmoderate user (uses 11-30 cig/day, OR 0.5-1.5 ppd, OR 2-3 cans/pouches loose leaf tobacco per week, OR 0.5-1.5 vape pods per day) Tobacco Cessation Education (provide if tobacco use within the last 12 mos) patient declined Alcohol Useoccasionally Drug Useoccasionally Admission Risk Screen: Significant IndicatorsComplete CAGE: CAGE: Is this an injured patient at a Tra[place] Center [place]/[place]/[facility]/[place]): no Electronic Signatures: Jaci May (RN) (Signed 01-Oct-2022 10:25) Authored: Preferred Language, Patient Preferred Pharmacy, Advanced Directives, Family Violence Adult, Learning Assessment (Patient), Learning Assessment (Other Learner), Pressure Injury/TB/Substance, Pressure Injury, CAGE Last Updated: 01-Oct-2022 10:25 by Jaci May (RN) Normal [facility] SEDIMENTATION RATE, ERYTHROC YTEon 10-01-2022 SEDIMENTATION RATE, ERYTHROCYTE 15 mm/h Normal 0 - 20 [facility] Comment on above: Performed By: #### E SRWS #### [facility] [address] [place] [address] Sedimentation Rate, Erythroc yteon 10-01-2022 ESR (Bld) [Velocity] 15 mm/h 0 - 20 [facility] and [address] Work Phone: Triage - EDon 10-01-2022 Triage - ED Quick Triage: Are You no Have You Given In The Last 6 Weeksno Are You Currently Breastfeedingno Chart Review: PRIMARY ASSESSMENT ABCD Normal Findings: airway open and patent and alert and oriented ARRIVAL INFORMATION Means of Arrival: Ambulatory Mode of Arrival: private vehicle Arrival From: home Accompanied By: immediate family member Language: Spoken Language Preferred: Chadian Reading Language Preferred: Chadian Present on Arrival: Device Present on Arrival to ED: no CHIEF COMPLAINT JAYNA SMITH is a Female patient with a chief complaint of finger pain/injury (states approx 1 month ago she had a blister on her right middle finger, states she popped it and c/o infection. she was started on an antibiotic 8-9 days ago, denies any relief.). Triage Date/Time: 01-Oct-2022 10:15 ELSY: 3 Pain Rating (0-10): 7 = Severe Pain location: finger Vital Signs: Temperature: 97.1F ( 36.1C) taken temporal Blood Pressure: 136/107 Mean: Heart Rate: 81 Respiratory Rate: 18 Pulse Oximetry: 96% on room air, no respiratory support. Height: 5 feet 8.00 inches. 172.7 CM Weight: 180.7 pounds. Calculated 82.0 kg. (stated) Calculated BMI (kg/m2): 27.493 Calculated BSA (m2) 1.98 Dominick Coma Scale: Best Eye Response: (E4) spontaneous Best Motor Response: (M6) obeys commands Best Verbal Response: (V5) oriented Dominick Score: 15 Allergies: no Last menstrual period: 04-Sep-2022 Patient has homicidal thoughts: no Symptom Notes: . Symptoms Are POSITIVE For: pain (describe). Risk Screens Suicide Risk Screen In the Past Month: Have you wished you were or wished you could go to sleep and not wake up no In the Past Month: Have you had any actual thoughts of killing yourself no In Your Lifetime: Have you ever done anything, started to do anything, or prepared to do anything to end your life no Pedraza Fall Scale Screening Has the patient fallen before (or is the patient in the ED as a result of a fall) has not had a fall Does the patient have an impaired gait does not have impaired gait Is the patient cognitively impaired not cognitively impaired Interventions: Pedraza Fall Interventions: LOW INTERVENTIONS: *patient oriented to surroundings and call system, * patient/family falls education completed and documented, *patients fall status communicated during bedside handoff, *whiteboard updated, *mode of toileting discussed with patient, *bed in low position with brakes locked, *call light in reach, * non-skid footwear TRAVEL HISTORY Travel History Coronavirus Screening: no exposure or symptoms Travel Exposure History: NO travel to International locations in the past 30 days PAIN Pain Scale Used: JOSUE Pain Rating (0-10): 7 = Severe Past Medical History: Past Medical History Reviewedyes Hypertension (HTN): Past Medical History, Active Electronic Signatures: Jaci May (JOHN) (Signed 01-Oct-2022 10:24) Entered: Risk Screens, Pain, Arrival, ABCD, Travel History, Chart Review, Scores, Past Medical History Authored: Quick Triage, Risk Screens, Pain, Arrival, ABCD, Travel History, Chart Review, Scores, Past Medical History Last Updated: 01-Oct-2022 10:24 by Jaci May (JOHN) [facility] FINGER (S) MIN 2 VIEWSon FINGER (S) MIN 2 VIEWS Patient Name: JAYNA SMITH STUDY: FINGER (S) MIN 2 VIEWS; Right; 09/22/2022 6:53 pm INDICATION: R 3rd/middle finger. Ulceration/wound at tip of R 3rd finger x 1 month . COMPARISON: None. ACCESSION NUMBER(S): [id number] ORDERING CLINICIAN: YESENIA WILDE FINDINGS: AP, lateral and obliques views of the 3rd digit are obtained. No acute fracture or dislocation. Bones are well mineralized. There several radiopaque densities noted along the volar aspect of the 3rd distal phalanx best seen on the lateral view. No definite osseous erosive changes seen. Soft tissue ulceration suspected along the distal aspect of the 3rd digit IMPRESSION: No acute fracture or osseous erosive changes seen. There is soft tissue ulceration along the distal aspect of the 3rd digit. MRI is more sensitive for early changes of osteomyelitis and may be considered if clinically indicated. There are several punctate radiopaque densities noted along the soft tissues volar aspect of the 3rd distal phalanx. Correlate with exam to assess for radiopaque foreign body. Electronically signed by: JOHN BUTLER MD [facility] Provider Note - ED v3on 09-09 Provider Note - ED v3 Provider Note: Results/Vital Signs Pediatric Clinical Scoring (DIANA) is no recent DIANA charted on this account Chart Review HISTORY OF PRESENTING ILLNESS JAYNA is a 36 year old Female and was seen by me at 22-Sep-2022 17:25. The historian is the patientsignificant other. Triage Information: Most recent Vital Sign Value Date PAST MEDICAL HISTORY ALLERGIES/INTOLERANCES: No Known Allergies HEALTH HISTORY: History of HTN, allergies, anxiety, Raynaud's, and borderline DM. Last GFR in 07/2022 was 58. Follows with PCP q6 months. Stopped Depo in early 2022 and menses have been very irregular since then. FDLMP was >1 month ago. Family history: No pertinent history. Social history: smokes 1/2 PPD, vapes, smokes marijuana recreationally. Denies any other drug use. Currently employed - works at [employer] Has a boyfriend; is sexually active and is trying to conceive. OUTPATIENT MEDICATIONS: Home Medications Review Status for Reconciliation: Complete Med Status: Patient Currently Takes Medications Drug Name: lisinopril 2.5 mg oral tablet Instructions: 1 tab(s) orally once a day Drug Name: loratadine Instructions: null Drug Name: busPIRone Instructions: null Drug Name: cefadroxil 500 mg oral capsule Instructions: 2 cap(s) orally to start, then 1 capsule 2 times a day x 10 days. Take with a meal. Drug Name: mupirocin 2% topical ointment Instructions: Apply topically to affected area 3 times a day x 10 days SIGNIFICANT EVENTS: History of wisdom teeth extraction and colposcopy. No other known significant events or other known past surgical history. Reports is up to date with tetanus vaccine. PUBLIC HEALTH DENTIST: Is : maybe Is : no Order Test: order urine test CRITICAL CARE RESULTS: Recent Lab Results: Urine HcG test today was negative. Radiology Results: Xray Finger(s) Min 2 View [Sep 22 2022 7:06PM] FINAL REPORT - Right Interpreted by: JOHN BUTLER FAWAD, MD 09/22/22 19:04 Facility: [facility] Patient Name: JAYNA SMITH STUDY: FINGER (S) MIN 2 VIEWS; Right; 09/22/2022 6:53 pm INDICATION: R 3rd/middle finger. Ulceration/wound at tip of R 3rd finger x 1 month . COMPARISON: None. ACCESSION NUMBER(S): [id number] ORDERING CLINICIAN: YESENIA WILDE FINDINGS: AP, lateral and obliques views of the 3rd digit are obtained. No acute fracture or dislocation. Bones are well mineralized. There several radiopaque densities noted along the volar aspect of the 3rd distal phalanx best seen on the lateral view. No definite osseous erosive changes seen. Soft tissue ulceration suspected along the distal aspect of the 3rd digit IMPRESSION: No acute fracture or osseous erosive changes seen. There is soft tissue ulceration along the distal aspect of the 3rd digit. MRI is more sensitive for early changes of osteomyelitis and may be considered if clinically indicated. There are several punctate radiopaque densities noted along the soft tissues volar aspect of the 3rd distal phalanx. Correlate with exam to assess for radiopaque foreign body. Transcribed By: Interface, User Electronically Signed By: JOHN BUTLER FAWAD 09/22/22 19:04 VITAL SIGNS: T PRBP SpO2O2(LPM) %FiO2 Method 22-Sep-2022 17:05:[id number] 1 95 Recheck BP 132/95. MDM MDM/ED COURSE: This note was generated with voice recognition software and may contain errors including spelling, grammar, syntax, and misrecognization of what was dictated CHIEF COMPLAINT wound on R 3rd finger HISTORY OF PRESENT ILLNESS Presents for evaluation of a wound on the tip of her R 3rd finger x 1 month. Reports she pushes a button on a fryer repeatedly, and this eventually led to development of a blister; since then, the area has gotten more red, tender, and swollen. She reports she popped the area with a needle 1-2 weeks ago, and some yellow/white pus came out. She denies any fever, chills, body aches, malaise, nausea, vomiting, or other constitutional S/S. She has been applying OTC antibiotic ointment and a bandaid to the area, without much relief. Reports she has a history of slow-healing wounds - reports she has thickened bumps on two other fingers from previous mild injury, followed by delayed healing - one wound from opening bottles, and another from using a cigarette tube coverer (denies any burn injury). She also reports she has a wound on her L lower leg x 1 year - initially started after her boyfriend gave her a tattoo, and it got a little worse after her dog re-injured the area. Reports it often drains some pus-like fluid or blood. She has never seen Wound Care or a specialist for her wound issues. She reports a history of HTN, allergies, anxiety, Raynaud's, and borderline DM; follows with her PCP every 6 months. She reports she was advised against taking NSAIDs at one poin (more content not included)... Normal [facility] PUBLIC HEALTH DENTIST - Office Visiton PUBLIC HEALTH DENTIST - Office Visit Diagnoses/Problems Assessed LGSIL on Pap smear of cervix (795.03) (R87.612) Amenorrhea (626.0) (N91.2) Provider Impressions 1. Mild dysplasia of the cervix 2. Amenorrhea Personally reviewed the cervical biopsies which shows mild dysplasia of the cervix. Patient informed that approximately 40 to 60% of individuals will have regression of the mild dysplasia over time. Recommend close surveillance with Pap smears every 6 months for several years. Regarding no menstrual flow over the last year that this could be due to the residual effects of the Depo-Provera. Follow-up in 6 months for repeat Pap. Chief Complaint PT IS HERE TODAY FOR COLPO RESULTS. HAS NO CONCERNS. History of Present IllnessShe presents for follow-up after cervical biopsies due to mild dysplasia on recent Pap smear. Patient states her last Depo-Provera shot was March 2021. She has not had a menstrual flow since that time. She has obtained blood work that was ordered by Dr. Lyman. Patient was recently informed of results by Dr. Lyman. Review of Systems Review of Systems: Constitutional: No fever or chills Respiratory: No shortness of breath, or cough Cardiovascular: No chest pain or syncope Breasts: No breast pain, no masses, no nipple discharge Gastrointestinal: No nausea, vomiting, or diarrhea, no abdominal pain Genitourinary: No dysuria or frequency Gynecology: Negative except as noted in history of present illness All other: All other systems reviewed and negative for complaint Active Problems Problems Abnormal uterine bleeding (AUB) (626.9) (N93.9) Amenorrhea (626.0) (N91.2) BMI 31.0-31.9,adult (V85.31) (Z68.31) BPPV (benign paroxysmal positional vertigo) (386.11) (H81.10) Cellulitis of left lower extremity (682.6) (L03.116) Cervix dysplasia (622.10) (N87.9) Chronic renal insufficiency, stage III (moderate) (585.3) (N18.30) Class 1 obesity due to excess calories with serious comorbidity and body mass index (BMI) of 31.0 to 31.9 in adult (278.00,V85.31) (E66.09,Z68.31) Contraceptive management (V25.9) (Z30.9) Dysplasia of cervix, low grade (HENRIETTA 1) (622.11) (N87.0) Elevated LFTs (790.6) (R79.89) Essential hypertension (401.9) (I10) ELIZABETH (generalized anxiety disorder) (300.02) (F41.1) GERD (gastroesophageal reflux disease) (530.81) (K21.9) Glucose intolerance (impaired glucose tolerance) (790.22) (R73.02) Headache, acute (784.0) (R51.9) 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) Hypertriglyceridemia (272.1) (E78.1) Left leg swelling (729.81) (M79.89) Leg edema (782.3) (R60.0) Lesion of left ovary (620.9) (N83.9) LGSIL on Pap smear of cervix (795.03) (R87.612) Low serum HDL (272.9) (R74.8) Motion sickness (994.6) (T75.3XXA) Negative test (V72.41) (Z32.02) Numbness and tingling of foot (782.0) (R20.0,R20.2) Ovarian cyst, complex (620.2) (N83.299) Pain of left lower extremity (729.5) (M79.605) PND (post-nasal drip) (784.91) (R09.82) Raynauds disease (443.0) (I73.00) 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) Screening for breast cancer (V76.10) (Z12.39) Screening for cervical cancer (V76.2) (Z12.4) Seasonal allergies (477.9) (J30.2) Vaginal lesion (623.8) (N89.8) Varicose veins of legs (454.9) (I83.93) Women's annual routine gynecological examination (V72.31) (Z01.419) Wound of left ankle, initial encounter (891.0) (S91.002A) Past Medical History Problems History of Chlamydia (079.98) (A74.9) History of Papanicolaou smear (V45.89) (Z98.890) 03/16/2020-ASC-US HPV NEG 09/02/2018-LSIL, HPV NEG ASCUS HPV Neg 2016 WNL 2014 LGSIL+HPV History of (V13.29) 12/2006 Male 3629g VAVD 2008 SAB 04/2012 F 3260g History of Influenza vaccination declined (V64.06) (Z28.21) REFUSED Surgical History Problems History of Colposcopy 06/02/2022 2019-HENRIETTA I 2014 History of Loop electrosurgical excision procedure 08/17/2014: Dr. Temple History of Oral surgery Family History Father Family history of osteoporosis (V17.81) (Z82.62) Other Family history of asthma (V17.5) (Z82.5) Family history of diabetes mellitus (V18.0) (Z83.3) Family history of hypertension (V17.49) (Z82.49) Family history of myocardial infarction (V17.3) (Z82.49) Social History Problems Denies alcohol consumption (V49.89) (Z78.9) Electronic cigarette use (305.1) (Z78.9) Feels safe at home Former smoker (V15.82) (Z87.891) No advance directives (V49.89) (Z78.9) No illicit drug use Sexually active Allergies Medication amLODIPine Besylate TABS Edema; Recorded By: Rae Rosenberg; 09/24/2019 10:32:36 AM Current Meds Medication NameInstruction busPIRone HCl - 5 MG Oral TabletTAKE 1 TABLET 3 times daily PRN anxiety Lisinopril 5 MG Oral TabletTAKE 0.5 TABLET Daily Loratadine 10 MG Oral TabletTAKE 1 TABLET DAILY NEEDED. Omeprazole 20 MG Oral Capsule Delayed Release Silver sulfADIAZINE 1 % External CreamAPPLY AND RUB IN A THIN FI (more content not included)... Normal [facility]works 17-Hydroxyprogesterone, Seru mon 06-06-2022 17-Hydroxyprogesteron e [Mass/Vol] <10.00 <=206.00 [facility] and [address] Work Phone: Comment on above: INTERPRETIVE INFORMA TION for 17-Hydroxyprogesterone in females:Follicular 15 to 70 ng/dLLuteal 35 to 290 ng/dLREFERENCE INTERVAL: 17-Hydroxyprogesterone Qnt, HPLC-MS/MSAccess complete set of age- and/or gender-specific reference intervals for this test in the [employer] [facility] Test Directory ([employer]).This test was developed and its performance characteristics determined by [facility]. It has not been cleared or approved by the US Food and Drug Administration. This test was performed in a CLIA certified laboratory and is intended for clinical purposes.Performed By: [facility] [place] [id number] Director: Eulalio Crain MD, PhD DHEA Sulfate, Serumon 2022 DHEA-S [Mass/Vol] 49 ug/dL 12 - [facility] and [address] Work Phone: Comment on above: MATURITY-BASED REFER ENCE RANGES: PUBERTAL (NOBLE) STAGE MALE FEMALE I 5 - 265 5 - 125 II 15 - 380 15 - 150 III 60 - 505 20 - 535 IV 65 - 560 35 - 485 V 165 - 500 75 - 530 Biotin interference may cause falsely elevated results. Patients taking a Biotin dose of up to 5 mg/day should refrain from taking Biotin for 24 hours before sample collection. Providers may contact their local laboratoryfor further information. HCG, Beta Quantitativeon HCG.beta subunit Qn m[IU]/mL [facility] and [address] Work Phone: Comment on above: .Total HCG measureme nt is performed using the [employer] [place] AccessImmunoassay which detects intact HCG and free beta HCG subunit. .This test is not indicated for use as a tumor marker.HCG testing is performed using a different test methodology at [facility] than other [facility]. Direct result comparisonshould only be made within the same method. REF VALUESNON FEMALE <5MALES <5 HSV TYPE I / II, IGMon 06-06 HSV 1+2 IgM IA Qn (S) 1.41 {IV} above high threshold <=0.89 [facility] and [address] Work Phone: Comment on above: INTERPRETIVE INFORMA TION: Herpes Simplex Virus Type 1 and/or 2 Antibodies, IgM by JONI 0.89 IV or Less .......... Not Detected 0.90 - 1.09 IV ........... Indeterminate- Repeat testing in 10-14 days may be helpful. 1.10 IV or Greater ....... Detected-IgM antibody to HSV detected, which may indicate a current or recent infection. However, low levels of IgM antibodies may occasionally persist for more than 12 months post-infection.Performed By: [facility] [place] [id number] Director: Eulalio Crain MD, PhD Hemoglobin A1Con 06-06-2022 Glucose [Mass/Vol] 126 mg/dL [employer] and [employer] Phone: HbA1c (Bld) [Mass fraction] 6.0 % Abnormal [facility] and [employer] Work Phone: Comment on above: Diagnosis of Diabete s-Adults Non-Diabetic: < or = 5.6% Increased risk for developing diabetes: 5.7-6.4% Diagnostic of diabetes: > or = 6.5%. Monitoring of Diabetes Age (y) Therapeutic Goal (%) Adults: >18 <7.0 Pediatrics: 13-18 <7.5 7-12 <8.0 0- 6 7.5-8.5 [place] Diabetes Association. Diabetes Care 33(S1), Mar 2009. Laboratory - Chemistry and C hemistry - challengeon 06-06-2022 Follitropin Qn 6.1 {IU/L} [employer] and [employer] Work Phone: Comment on above: REF VALUESFOLLICULAR [id number] 12-25LUTEAL PHASE 2-12MENOPAUSE 30-150PREPUBERTY 50% ADULTADULT MALE 2-10INFANTS 0-1 Lutropin Qn 3.0 {IU/L} [employer] and [address] [employer] Phone: Comment on above: REF VALUESFOLLICULAR PHASE 1.9-12.5MID-CYCLE 8.7-76.3LUTEAL PHASE 0.5-16.9POST MENOPAUSE 5.0-55.2CHILDREN 0- 6.0ADULT MALE 18-70 1.5- 9.3ADULT MALE >70 3.1-34.6 Testosterone [Mass/Vol] 13 ng/dL 2-45 [facility] and [address] Work Phone: Comment on above: For additional infor danny, please refer tohttp://education.Rebyoo/faq/TotalTestosteroneLCM [email or web address](This link is being provided for informational/educational purposes only.) This test was developed and its analytical performancecharacteristics have been determined by [employer] [place], [place]. It hasnot been cleared or approved by the U.S. Food and DrugAdministration. This assay has been validated pursuantto the CLIA regulations and is used for clinicalpurposes. Testosterone Free [Mass/Vol] 1.4 pg/mL 0.1-6.4 [facility] and [address] Work Phone: Comment on above: This test was develo ped and its analytical performancecharacteristics have been determined by [facility] [employer] [place] It hasnot been cleared or approved by the U.S. Food and DrugAdministration. This assay has been validated pursuantto the CLIA regulations and is used for clinicalpurposes. TSH Qn 2.02 m[IU]/L See Below [facility] and [address] Work Phone: Comment on above: Reference Range: 0.4 4 - 3.98 TSH testing is performed using different testing methodology at [facility] than at other [facility]. Direct result comparisons should only be made within the same method. No Panel Informationon 06-06 <0.2 [facility] and [address] Work Phone: Comment on above: POTENTIAL FOR CROSS- REACTIVITY BETWEENHSV I AND HSV II EXISTS.REF VALUESNEGATIVE <0.9EQUIVOCAL >=0.90 <=1.10POSITIVE >1.10 1.0 {INDEX} Abnormal [employer] and [employer] Phone: Comment on above: REF VALUESNEGATIVE < 0.9EQUIVOCAL >=0.90 <=1.10POSITIVE >1.10 Prolactin, Serumon Prolactin [Mass/Vol] 10.4 ug/L 3.0 - 20.0 [facility] and [employer] Work Phone: IO HCG, Urine Test on 06-02-2022 HCG ( test) Ql (U) Negative Normal [facility] and [employer] Phone: LMPon 06-02-2022 Last menstrual period start date unknown [facility] and [employer] Phone: No Panel Informationon 06-02 [facility] [employer] Phone: PUBLIC HEALTH DENTIST - Procedure Visiton 0 06-02-2022 PUBLIC HEALTH DENTIST - Procedure Visit Diagnoses/Problems Negative test (V72.41) (Z32.02) LGSIL on Pap smear of cervix (795.03) (R87.612) Orders LGSIL on Pap smear of cervix Surgical Pathology; Status:In Progress - Specimen/Data Collected; Done: 02Jun2022 Type : Biopsy Fixative : Formalin Site B : Cervical Biopsy at 4 o'clock Type : Biopsy Fixative : Formalin Site A : Cervical biopsy at 12 o' clock Surgical Pathology; Status:In Progress - Specimen/Data Collected; Done: 02Jun2022 Type : Biopsy Fixative : Formalin Site A : ECC Negative test IO HCG, Urine Test; Status:Complete; Done: 02Jun2022 09:02AM Provider Impressions 1. Mild dysplasia on recent Pap 2. Status post LEEP in 2014 for severe dysplasia 3. Colposcopy performed today Patient encouraged to obtain blood work that was ordered at her last office visit regarding not having a menstrual flow for the last year following discontinuing the Depo-Provera. Follow-up in 1 week to review biopsy results. Chief Complaint Patient is here for [place]. 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 Patient had a LEEP procedure in 2014. LMP: Unknown. Patient states she stopped her Depo over a year ago and still hasn't had a period. In office test was negative. History of Present IllnessPatient presents for colposcopy due to recent Pap smear showing mild dysplasia. Patient had previous LEEP conization for severe dysplasia in 2014. Patient stopped the Depo-Provera approximately a year ago and has not had a menstrual flow since that time. Patient forgot to obtain the blood work that was ordered at her last office visit. Review of Systems Review of Systems: Constitutional: No fever or chills Respiratory: No shortness of breath, or cough Cardiovascular: No chest pain or syncope Breasts: No breast pain, no masses, no nipple discharge Gastrointestinal: No nausea, vomiting, or diarrhea, no abdominal pain Genitourinary: No dysuria or frequency Gynecology: Negative except as noted in history of present illness All other: All other systems reviewed and negative for complaint Active Problems Problems Abnormal uterine bleeding (AUB) (626.9) (N93.9) Amenorrhea (626.0) (N91.2) BMI 31.0-31.9,adult (V85.31) (Z68.31) BPPV (benign paroxysmal positional vertigo) (386.11) (H81.10) Cellulitis of left lower extremity (682.6) (L03.116) Cervix dysplasia (622.10) (N87.9) Chronic renal insufficiency, stage III (moderate) (585.3) (N18.30) Class 1 obesity due to excess calories with serious comorbidity and body mass index (BMI) of 31.0 to 31.9 in adult (278.00,V85.31) (E66.09,Z68.31) Contraceptive management (V25.9) (Z30.9) Dysplasia of cervix, low grade (HENRIETTA 1) (622.11) (N87.0) Elevated LFTs (790.6) (R79.89) Essential hypertension (401.9) (I10) ELIZABETH (generalized anxiety disorder) (300.02) (F41.1) GERD (gastroesophageal reflux disease) (530.81) (K21.9) Glucose intolerance (impaired glucose tolerance) (790.22) (R73.02) Headache, acute (784.0) (R51.9) 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) Hypertriglyceridemia (272.1) (E78.1) Left leg swelling (729.81) (M79.89) Leg edema (782.3) (R60.0) Lesion of left ovary (620.9) (N83.9) Low serum HDL (272.9) (R74.8) Motion sickness (994.6) (T75.3XXA) Negative test (V72.41) (Z32.02) Numbness and tingling of foot (782.0) (R20.0,R20.2) Ovarian cyst, complex (620.2) (N83.299) Pain of left lower extremity (729.5) (M79.605) PND (post-nasal drip) (784.91) (R09.82) Raynauds disease (443.0) (I73.00) 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) Screening for breast cancer (V76.10) (Z12.39) Screening for cervical cancer (V76.2) (Z12.4) Seasonal allergies (477.9) (J30.2) Vaginal lesion (623.8) (N89.8) Varicose veins of legs (454.9) (I83.93) Women's annual routine gynecological examination (V72.31) (Z01.419) Wound of left ankle, initial encounter (891.0) (S91.002A) Past Medical History Problems History of Chlamydia (079.98) (A74.9) History of Papanicolaou smear (V45.89) (Z98.890) 03/16/2020-ASC-US HPV NEG 09/02/2018-LSIL, HPV NEG ASCUS HPV Neg 2016 WNL 2014 LGSIL+HPV History of (V13.29) 12/2006 Male 3629g VAVD 2008 SAB 04/2012 F 3260g History of Influenza vaccination declined (V64.06) (Z28.21) REFUSED Surgical History Problems History of Colposcopy 06/02/20222018-HENRIETTA I 2014 History of Loop electrosurgical excision procedure 08/17/2014: Dr. Temple History of Oral surgery Family History Father Family history of osteoporosis (V17.81) (Z82.62) Other Family history of asthma (V17.5) (Z82.5) Family history of diabetes mellitus (V18.0) (Z83.3) Family history of hypertension (V17.49) (Z82.49) Family history of myocardial infarction (V17.3) (Z82.49) Social History Problems Denies alcohol consumption (V49.89) (Z78.9) Electronic cigarette use (305.1) (Z78.9) Feels safe at home Former smoker (V15.82) (Z87.891) No advance directive (more content not included)... Normal [facility] Cult, Genitalon 04-18-2022 Bacteria identified Aer cx Nom (Genital specimen) Abnormal [facility] [employer] Phone: LMPon 04-18-2022 Last menstrual period start date unknown [facility] and [employer] Work Phone: Laboratory - Microbiology an d Antimicrobial susceptibilityon 04-18-2022 HSV 1 DNA LEX+probe Ql (Unsp spec) Not detected See Below [facility] [employer] Phone: Comment on above: SOURCE: GenitalRefer ence Range: Not Detected HSV 2 DNA LEX+probe Ql (Unsp spec) Not detected See Below [facility] and [employer] Work Phone: Comment on above: Reference Range: Not Detected The HSV 1+2 Assay is an FDA approved in vitro diagnostic nucleic acid amplification test for the direct, qualitative detection and differentiation of Herpes Simplex Virus 1 (HSV-1) and Herpes Simplex Virus 2 (HSV-2) DNA in cutaneous or mucocutaneous lesion specimens from symptomatic patients. The test is intended for use as an aid in diagnosis of HSV infection in symptomatic patients. The test is not FDA-cleared for use with cerebrospinal fluid (CSF), screening or screening. Viral culture or other PCR tests are recommended for these purposes. HSV viability and/or infectivity cannot be inferred from a positive test result since target DNA may persist in the absence of infectious virus. A negative test does not exclude the possibility of infection because test results may be affected by improper specimen collection/transport/handling, presence of inhibitor(s), technical error, concurrent antiviral therapy, or the presence of insufficient DNA for detection. PUBLIC HEALTH DENTIST - Office Visiton PUBLIC HEALTH DENTIST - Office Visit Diagnoses/Problems Assessed History of Loop electrosurgical excision procedure Screening for cervical cancer (V76.2) (Z12.4) Vaginal lesion (623.8) (N89.8) Amenorrhea (626.0) (N91.2) Orders 17-Hydroxyprogesterone, Serum; Status:Active; Requested for:18Apr2022; DHEA Sulfate, Serum; Status:Active; Requested for:18Apr2022; HCG, Beta Quantitative; Status:Active; Requested for:18Apr2022; Hemoglobin A1C; Status:Active; Requested for:18Apr2022; HSV IgG1 And IgG2 Ab; Status:Active; Requested for:18Apr2022; HSV TYPE I / II, IGM; Status:Active; Requested for:18Apr2022; Prolactin, Serum; Status:Active; Requested for:18Apr2022; Testosterone Free + Total; Status:Active; Requested for:18Apr2022; TSH WITH REFLEX TO FREE T4 IF ABNORMAL; Status:Active; Requested for:18Apr2022; PAP MANAGER GRANT, Cytology; Status:In Progress - Specimen/Data Collected,Retrospective Authorization; Done: 18Apr2022 Last Menstrual Period (LMP): : unknown PAP - Site : CERVICAL Cytology Order : ThinPrep PAP, Screening, HPV CoTest - Include Genotyping Cult, Genital; Status:In Progress - Specimen/Data Collected,Retrospective Authorization; Done: 18Apr2022 Site : Vaginal HSV DNA BY PCR,QUAL SKIN/MUCOSA LESION; Status:In Progress - Specimen/Data Collected,Retrospective Authorization; Done: 18Apr2022 Provider Impressions Patient is a 36-year-old who comes in for routine MANAGER GRANT exam Pap smear with cotesting done given her history of abnormal Pap smears. Externally her vulva had a lesion that was suggestive of HSV. Cultures with taken as well as blood work ordered. Explained to patient briefly the significance of HSV since she was unfamiliar with this diagnosis. We will call patient with test results #2 amenorrhea blood work ordered we will call patient if any of her blood work returns abnormal. Chief Complaint Patient here today for annual exam. She has had abnormal paps in past, colpo x2 and LEEP procedure. Last pap: 03/21/2021 Cotest negative. Stopped taking Depo over a year ago and no period since. Not interested in contraception. LMP: unsure History of Present IllnessPatient is a 36-year-old who comes in for routine MANAGER GRANT exam. Patient reports a history of abnormal Pap smears in the past including a LEEP but reports that her last Pap smear was normal. Patient also reports that she stopped the Depo-Provera over a year ago and has not had her periods return. Patient has no additional concerns Review of Systems Constitutional: Reports significant change in weight secondary to being diabetic and losing weight intentionally. Cardiovascular: Denies any chest pain or palpitations. Respiratory: Denies any shortness of breath or cough. Gastrointestinal: Denies any changes in bowel habits or abdominal pain. Genitourinary: Denies any concerns. Musculoskeletal: Denies any change in her mobility. Psychiatric: Denies any change in her mood or in her sleep. Active Problems Problems Abnormal uterine bleeding (AUB) (626.9) (N93.9) BMI 31.0-31.9,adult (V85.31) (Z68.31) BPPV (benign paroxysmal positional vertigo) (386.11) (H81.10) Cellulitis of left lower extremity (682.6) (L03.116) Cervix dysplasia (622.10) (N87.9) Chronic renal insufficiency, stage III (moderate) (585.3) (N18.30) Class 1 obesity due to excess calories with serious comorbidity and body mass index (BMI) of 31.0 to 31.9 in adult (278.00,V85.31) (E66.09,Z68.31) Contraceptive management (V25.9) (Z30.9) Dysplasia of cervix, low grade (HENRIETTA 1) (622.11) (N87.0) Elevated LFTs (790.6) (R79.89) Essential hypertension (401.9) (I10) ELIZABETH (generalized anxiety disorder) (300.02) (F41.1) GERD (gastroesophageal reflux disease) (530.81) (K21.9) Glucose intolerance (impaired glucose tolerance) (790.22) (R73.02) Headache, acute (784.0) (R51.9) 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) Hypertriglyceridemia (272.1) (E78.1) Left leg swelling (729.81) (M79.89) Leg edema (782.3) (R60.0) Lesion of left ovary (620.9) (N83.9) Low serum HDL (272.9) (R74.8) Motion sickness (994.6) (T75.3XXA) Negative test (V72.41) (Z32.02) Numbness and tingling of foot (782.0) (R20.0,R20.2) Ovarian cyst, complex (620.2) (N83.299) Pain of left lower extremity (729.5) (M79.605) PND (post-nasal drip) (784.91) (R09.82) Raynauds disease (443.0) (I73.00) 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 Normal [facility] PUBLIC HEALTH DENTIST - Office Visiton 11-0 PUBLIC HEALTH DENTIST - Office Visit Provider Ar mitchell Patient is a 36-year-old with a history of an ovarian cyst and here for follow-up results. By ultrasound there has been no significant change but the cyst is quite large 8 cm. She had a previous ultrasound in 2010 where the cyst was approximately 5 cm but appears to now be growing over time although the growth rate is relatively slow. Discussed with patient's the recommendations for removal. Explained to patient that this is quite large and if this was done laparoscopically it is unlikely that we could save that ovary. However in order to attempt to save the ovary we would need to consider an open laparotomy versus referring her to minimally invasive surgery. Additionally the final option would be just expectant management with the understanding that the the cyst is at high risk for torsion or even rupture with intraperitoneal hemorrhage. Either of these lead to an emergency situation. At this point the patient is undecided about what she wants to do. She will discuss this with her significant other and let us know. Prolonged amenorrhea after discontinuing the Depo-Provera. However by ultrasound the endometrial stripe is relatively atrophic. Discussed with the patient that after the Depo-Provera patients can take a very long time to clear the Depo and until it is out of her system her menses may not resume. Offered patient the option of doing additional blood work to rule out other sources to amenorrhea but patient at this point declined any further evaluation Chief Complaint Patient here today to discuss ultrasound results. She has no concerns. She stopped the Depo shot in March and still has not had a period. History of Present IllnessPatient is a 36-year-old who comes in to discuss the results of her ultrasound. Patient had an ultrasound done approximately 2 months ago for an enlarged ovarian cyst. The patient reports she has been completely asymptomatic. Patient reports she has no pain and no issues. Patient reports that she stopped her Depo-Provera about 10 months ago and had been on it for several years and has not had recurrence of her menses. Patient reports that she saw Dr. Rodriguez and he tried withdrawal bleed with 10 mg and 5 mg of Provera and has had no bleeding. Active Problems Problems Abnormal uterine bleeding (AUB) (626.9) (N93.9) BMI 31.0-31.9,adult (V85.31) (Z68.31) BPPV (benign paroxysmal positional vertigo) (386.11) (H81.10) Cervix dysplasia (622.10) (N87.9) Chronic renal insufficiency, stage III (moderate) (585.3) (N18.30) Class 1 obesity due to excess calories with serious comorbidity and body mass index (BMI) of 31.0 to 31.9 in adult (278.00,V85.31) (E66.09,Z68.31) Contraceptive management (V25.9) (Z30.9) Dysplasia of cervix, low grade (HENRIETTA 1) (622.11) (N87.0) Elevated LFTs (790.6) (R79.89) Essential hypertension (401.9) (I10) ELIZABETH (generalized anxiety disorder) (300.02) (F41.1) GERD (gastroesophageal reflux disease) (530.81) (K21.9) Glucose intolerance (impaired glucose tolerance) (790.22) (R73.02) Headache, acute (784.0) (R51.9) 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) Hypertriglyceridemia (272.1) (E78.1) Leg edema (782.3) (R60.0) Lesion of left ovary (620.9) (N83.9) Low serum HDL (272.9) (R74.8) Motion sickness (994.6) (T75.3XXA) Negative test (V72.41) (Z32.02) Numbness and tingling of foot (782.0) (R20.0,R20.2) Pain of left lower extremity (729.5) (M79.605) PND (post-nasal drip) (784.91) (R09.82) Raynauds disease (443.0) (I73.00) 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) Screening for breast cancer (V76.10) (Z12.39) Screening for cervical cancer (V76.2) (Z12.4) Seasonal allergies (477.9) (J30.2) Varicose veins of legs (454.9) (I83.93) Women's annual routine gynecological examination (V72.31) (Z01.419) Past Medical History Problems History of Chlamydia (079.98) (A74.9) History of Papanicolaou smear (V45.89) (Z98.890) 03/16/2020-ASC-US HPV NEG 09/02/2018-LSIL, HPV NEG ASCUS HPV Neg 2015 WNL 2014 LGSIL+HPV History of (V13.29) 12/2006 Male 3629g VAVD 2007 SAB 04/2012 F 3260g History of Influenza vaccination declined (V64.06) (Z28.21) REFUSED Surgical History Problems History of Colposcopy 2018-HENRIETTA I 2014 History of Loop electrosurgical excision procedure History of Oral surgery Family History Father Family history of osteoporosis (V17.81) (Z82.62) Other Family history of asthma (V17.5) (Z82.5) Family history of diabetes mellitus (V18.0) (Z83.3) Family history of hypertension (V17.49) (Z82.49) Family history of myocardial infarction (V17.3) (Z82.49) Social History Problems Denies alcohol consumption (V49.89) (Z78.9) Electronic cigarette use (305.1) (Z78.9) Feels safe at home Former smoker (V15.82) (Z87.891) No advance directives (V49.89) (Z78.9) No illicit drug use Sexually active Allergies Medication amLODIPine Besylate TABS Edema; Recorded By: (more content not included)... Normal [facility] Office Visit (Internal Medic ine)on 01-13-2022 Follow-up visit Diagnoses/Problems Assessed Left leg swelling (729.81) (M79.89) Wound of left ankle, initial encounter (891.0) (S91.002A) Essential hypertension (401.9) (I10) Cellulitis of left lower extremity (682.6) (L03.116) Orders Left leg swelling [facility] LAB Venous Duplex Ultrasound for DVT; Status:Hold For - Scheduling; Requested for:13Jan2022; Perform:[facility] ([place]); Due:13Apr2022;Ordered; For:Left leg swelling; Ordered By:Misty Sweeney; Laterality : Left Left leg swelling, Wound of left ankle, initial encounter Brain Natriuretic Peptide BNP; Status:Active; Requested for:13Jan2022; Perform:Lab Services - Lab To Draw (Blood Test); Due:[id number];Ordered; For:Left leg swelling, Wound of left ankle, initial encounter; Ordered By:Misty Sweeney; Comprehensive Metabolic Panel; Status:Active; Requested for:13Jan2022; Perform:Lab Services - Lab To Draw (Blood Test); Due:[id number];Ordered; For:Left leg swelling, Wound of left ankle, initial encounter; Ordered By:Misty Sweeney; Wound of left ankle, initial encounter Start: Silver sulfADIAZINE 1 % External Cream (Silvadene); APPLY AND RUB IN A THIN FILM TO AFFECTED AREAS TWICE DAILY.(AM AND PM) Rx By: Misty Sweeney; Dispense: 0 Days ; #:1 X 50 GM Jar; Refill: 1;For: Wound of left ankle, initial encounter; RISHABH = N; Sent To: [address] Patient Discussion/Summary 1 WEEK WOUND CHECK WITH IA VENOUS DOPPLER LLE TODAY Provider Impressions INSTRUCTED TO KEEP AREA CLEAN AND DRY. WASH AREA WITH SOAP AND WATER, PAT DRY. APPLY SILVADENE CREAM AND COVER WITH BANDAGE TWICE DAILY. INSTRUCTED TO PRACTICE GOOD HAND WASHING TECHNIQUES. START BACTRIM AND KEFLEX. REFUSING WOUND CARE REFERRAL AT THIS TIME WE DISCUSSED MOST COMMON SIDE EFFECTS OF PRESCRIBED MEDICATIONS. INDICATIONS, RISK, COMPLICATIONS, AND ALTERNATIVES OF MEDICATION/THERAPEUTICS WERE EXPLAINED AND DISCUSSED. PLEASE MONITOR CLOSELY FOR ANY UNTOWARD SIDE EFFECTS OR COMPLICATIONS OF MEDICATIONS. PATIENT IS STRONGLY ADVISED TO BE COMPLIANT WITH RECOMMENDATIONS. QUESTIONS AND CONCERNS WERE ADDRESSED. INSTRUCTED TO CALL, RETURN SOONER, OR GO TO THE ER, IF SYMPTOMS PERSIST OR WORSEN. THEY VOICED UNDERSTANDING AND DENIES FURTHER QUESTIONS AT THIS TIME. TIME CODE 1. PREPARATION FOR PATIENT'S VISIT (REVIEWING CHART, CURRENT MEDICAL RECORDS, OUTSIDE HEALTH PROVIDER RECORDS, PREVIOUS HISTORY, EXAM, TEST, PROCEDURE, AND MEDICATIONS) 2. FACE TO FACE ENCOUNTER OBTAINING HISTORY FROM THE PATIENT/FAMILY/CAREGIVE RS; PERFORMING EVALUATION AND EXAMINATION; ORDERING TESTS OR PROCEDURES; REFERRING AND COMMUNICATING WITH OTHER HEALTHCARE PROVIDERS; COUNSELING AND EDUCATION OF THE PATIENT/FAMILY/CAREGIVE RS; INDEPENDENTLY INTERPRETING RESULTS (TESTS, LABS, PROCEDURES, IMAGING) AND COMMUNICATING AND EXPLAINING RESULTS TO THE PATIENT/FAMILY/CAREGIVE RS 3. COORDINATION OF CARE; PREPARING AND PRINTING DISCHARGE INSTRUCTIONS AND ANY EDUCATIONAL MATERIAL FOR THE PATIENT/FAMILY/CAREGIVE RS. DOCUMENTING CLINICAL INFORMATION IN THE ELECTRONIC MEDICAL RECORD 4. REVIEWING OARRS NEEDED MDM 1) COMPLEXITY: MORE THAN 1 STABLE CHRONIC CONDITION ADDRESSED OR 1 ACUTE ILLNESS ADDRESSED 2)DATA: TESTS INTERPRETED AND OR ORDERED, TOOK INDEPENDENT HISTORY OR RECORDS REVIEWED 3)RISK: MODERATE RISK DUE TO NATURE OF MEDICAL CONDITIONS/COMORBIDITY OR MEDICATIONS ORDERED OR SURGICAL OR PROCEDURE REFERRAL Chief Complaint PT HERE TODAY FOR ER FOLLOW UP FROM 01/12/22 L LEG PAIN. History of Present IllnessSHARA WALKER PATIENT THAT Presents today for [facility] ER F/U FOR LLE SWELLING. C/O LLE SWELLING REMAINS X 2 WEEKS modifying factors consists of ER VISIT 01/12/22. associated symptoms consist of WOUND TO LEFT ANKLE X 2 MONTHS AFTER SHE SCRATCHED POISON PARAM ON A NEW TATTOO. prior treatment consists of medication KEFLEX AND BACTRIM FROM ER BUT HAS NOT STARTED MED YET HTN- STABLE Review of Systems Constitutional: not feeling poorly, no fever, no recent weight gain, no recent weight loss and no chills. Eyes: no blurred vision, no diplopia and no eyesight problems. ENT: no hearing loss, no tinnitus, no earache, no sore throat, no hoarseness and no swollen glands in the neck. Cardiovascular: lower extremity edema, but no chest pain, no tightness or heavy pressure, no shortness of breath and no palpitations. Respiratory: no cough, not coughing up sputum, no wheezing that is consistent with asthma and no shortness of breath during exertion. Gastrointestinal: no change in bowel habits, no diarrhea, no constipation, no bloody stools, no nausea, no vomiting, no abdominal pain, no signs and symptoms of ulcer disease, no amadou colored stools and no intolerance to fatty foods. Genitourinary: no urinary frequency, no dysuria, no burning sensation during urination and no hematuria. Musculoskeletal: no arthralgias, no joint stiffness, no muscle weakness, no back pain and no difficulty walking. Skin: no skin wound, but no rashes, no change in skin (more content not included)... Normal [facility] Tobacco Screening.on 022 Fall risk assessment a) No falls within the last year [facility] and [address] Work Phone: Tobacco use status [facility] a) Yes [facility] and [address] Work Phone: Tobacco Screening. Yes [facility] and [address] Work Phone: [facility] LAB Venous Duplex Ultra sound DVTon 01-13-2022 VAS LAB Venous [place] [address] [phone], Vascular Lab Report Lower Venous Duplex Ultrasound Patient Name: JAYNA SMITH Reading Physician: [id number] Sabrina Son MD Study Date: 01/13/2022 Referring Physician: MISTY SWEENEY MRN/PID: [id number] PCP: Accession/Order#: [id number] CC Report to: Date of : 1985 Technologist: Rashawn Gordon Gender: F Technologist 2: Admission Status: Outpatient Location Performed: [facility] Diagnosis/ICD: M79.89-Left leg swelling; M79.605-Pain in left leg Procedure/CPT: 83038 Peripheral venous duplex scan for DVT Limited-[id number] CRITICAL RESULT Critical Result: Left varicosity SVT Notification called to Misty Sweeney CNP on 01/13/2022 at 5:34:35 PM by Qasim Gordon RVT. CONCLUSIONS: Right Lower Venous: Right common femoral vein is negative for deep vein thrombus. Left Lower Venous: No evidence of acute deep vein thrombus visualized in the left lower extremity. Positive for acute superficial venous thrombosis in a varicosity distal thigh to mid calf. Additional Findings; Lymph nodes and Cystic structure in the popliteal fossa. Imaging AND Doppler Findings: Right Compressible Thrombus Flow CFV Yes None Spontaneous/Phasic Left Compress Thrombus Flow Iliac Spontaneous/Phasic CFV Yes None Spontaneous/Phasic PFV Yes None FV Proximal Yes None Spontaneous/Phasic FV Mid Yes None FV Distal Yes None Popliteal Yes None Spontaneous/Phasic Peroneal Yes None PTV Yes None [id number] Sabrina Son MD Final Normal [facility] VASC LAB Venous Duplex Ultra sound for DVTon 01-13-2022 VASC LAB Venous Duplex Ultrasound for DVT [facility] Internal Medicine Work Phone: CT LOWER EXTREMITY LEFT SOFT TISSUE WITH CONTRASTon 01-12-2022 CT LOWER EXTREMITY LEFT SOFT TISSUE WITH CONTRAST EXAMINATION: CT LOWER EXTREMITY LEFT SOFT TISSUE WITH CONTRAST HISTORY: ORDERING SYSTEM PROVIDED HISTORY: leg swelling, TECHNOLOGIST PROVIDED HISTORY: Illness/Other Reason for exam: left leg pain (near groin) and swelling Encounter Type: Initial Additional signs and symptoms: ORDERING SYSTEM PROVIDED DIAGNOSIS CODES: COMPARISON: None TECHNIQUE: Multiple thin-section transaxial slices were acquired through the left lower extremity with intravenous contrast administration. Coronal and sagittal reconstructed images were reviewed. CONTRAST: IOPAMIDOL 370 MG IODINE/ML (76 %) INTRAVENOUS SOLUTION - 75 mL, FINDINGS: 1 this examination trauma there are very severe superficial venous varicosities throughout the entire left lower extremity. There are varicose veins in the medial subcutaneous soft tissues of the right lower extremity. However, the superficial varicosities are smaller in size compared to the left lower extremity. There is some associated subcutaneous fat stranding and edema. There is a tiny more localized collection of fluid along the posteromedial heel without rim enhancement measuring 2.2 x 1.4 cm best appreciated on series 4, image 393 and series 602, image 41. There are no intramuscular fluid collections. There are no rim enhancing fluid collections elsewhere in the left lower extremity to suggest soft tissue abscess. There is no gas in the soft tissues. There are no bony erosive changes in the osseous structures of the left lower extremity to suggest osteomyelitis. There is a complex cystic mass in the left adnexa measuring 8.6 x 7.2 x 6.0 cm. IMPRESSION: 1. There are large subcutaneous varicose veins in the medial soft tissues throughout the left lower extremity with some associated subcutaneous fat stranding and edema likely representing superficial thrombophlebitis. While there are varicosities in the subcutaneous soft tissues of the right lower extremity, these are significantly in smaller in size compared to the left side. 2. Tiny focal collection of fluid in the subcutaneous fat of the posteromedial left heel without rim enhancement. This is nonspecific. Developing abscess cannot entirely be excluded in the proper clinical setting. 3. Large complex cystic mass is present in the left adnexa. Further evaluation with pelvic sonography is recommended. Non emergent gynecologic surgical consultation is also recommended. Workstation ID: [id number] Dictated by: ESTEVAN BUCKLEY on SunJan 12, 2022 7:19:31 PM EDT Transcribed by: ESTEVAN BUCKLEY on SunJan 12, 2022 7:19:31 PM EDT Finalized by: ESTEVAN BUCKLEY on SunJan 12, 2022 7:19:31 PM EDT [facility] Comment on above: Order Comment: Injur y/Trauma or Illness?:Illness/Other How long have you had these symptoms (acute/chronic)?:Acute Reason for exam?:left leg pain (near groin) and swelling Type of Exam?:Initial Additional signs and symptoms?: No Panel Informationon 01-06 Normal [email or web address] and [employer] Work Phone: PUBLIC HEALTH DENTIST - Office Visiton 11-11 PUBLIC HEALTH DENTIST - Office Visit Diagnoses/Problems Assessed Lesion of left ovary (620.9) (N83.9) Abnormal uterine bleeding (AUB) (626.9) (N93.9) Orders Ultrasound Pelvis Transabdominal With Transvaginal; Status:Active; Requested for:06Jan2022; Radiologist to Determine Optimal Study : Y What are the patient's signs and symptoms? : f/u scan left simplet cyst Follow-up visit in 1 month Outpatient Follow-up Status: Hold For - Scheduling Requested for: 07Dec2021 Provider Impressions 1) left ovarian cyst-oval appearing cyst 6 x 8 cm. Patient asymptomatic related to it. Reviewed precautions to return reviewed torsion risk. Plan for follow-up scan in 6 weeks to reevaluate. All questions answered 2) abnormal uterine bleeding-finishing the last day or so of progesterone withdrawal and will see with cycle 2 afterwards. Further management to follow. Interested in fertility after get early next month. Chief Complaint PT HERE TODAY TO GO OVER U/S RESULTS. PT HAS NO CONCERNS. History of Present [id number] presents for results of ER follow-up. Patient is on her second last day of her progesterone pills. Patient has no other acute concerns Review of Systems Constitutional: No fevers, chills Eye:no vision changes Respiratory: no SOB Cardiovascular: no chest pain Gastrointestinal: No nausea, vomiting, diarrhea, constipation, abdominal pain Genitourinary:no dysuria Gynecology: See HPI Active Problems Problems Abnormal uterine bleeding (AUB) (626.9) (N93.9) BMI 31.0-31.9,adult (V85.31) (Z68.31) BPPV (benign paroxysmal positional vertigo) (386.11) (H81.10) Cervix dysplasia (622.10) (N87.9) Chronic renal insufficiency, stage III (moderate) (585.3) (N18.30) Class 1 obesity due to excess calories with serious comorbidity and body mass index (BMI) of 31.0 to 31.9 in adult (278.00,V85.31) (E66.09,Z68.31) Contraceptive management (V25.9) (Z30.9) Dysplasia of cervix, low grade (HENRIETTA 1) (622.11) (N87.0) Elevated LFTs (790.6) (R79.89) Essential hypertension (401.9) (I10) ELIZABETH (generalized anxiety disorder) (300.02) (F41.1) GERD (gastroesophageal reflux disease) (530.81) (K21.9) Glucose intolerance (impaired glucose tolerance) (790.22) (R73.02) Headache, acute (784.0) (R51.9) 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) Hypertriglyceridemia (272.1) (E78.1) Leg edema (782.3) (R60.0) Lesion of left ovary (620.9) (N83.9) Low serum HDL (272.9) (R74.8) Motion sickness (994.6) (T75.3XXA) Negative test (V72.41) (Z32.02) Numbness and tingling of foot (782.0) (R20.0,R20.2) Pain of left lower extremity (729.5) (M79.605) PND (post-nasal drip) (784.91) (R09.82) Raynauds disease (443.0) (I73.00) 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) Screening for breast cancer (V76.10) (Z12.39) Screening for cervical cancer (V76.2) (Z12.4) Seasonal allergies (477.9) (J30.2) Varicose veins of legs (454.9) (I83.93) Women's annual routine gynecological examination (V72.31) (Z01.419) Past Medical History Problems History of Chlamydia (079.98) (A74.9) History of Papanicolaou smear (V45.89) (Z98.890) 03/16/2020-ASC-US HPV NEG 09/02/2018-LSIL, HPV NEG ASCUS HPV Neg 2016 WNL 2014 LGSIL+HPV History of (V13.29) 12/2006 Male 3629g VAVD 2007 SAB 04/2012 F 3260g History of Influenza vaccination declined (V64.06) (Z28.21) REFUSED Surgical History Problems History of Colposcopy 2018-HENRIETTA I 2014 History of Loop electrosurgical excision procedure History of Oral surgery Family History Father Family history of osteoporosis (V17.81) (Z82.62) Other Family history of asthma (V17.5) (Z82.5) Family history of diabetes mellitus (V18.0) (Z83.3) Family history of hypertension (V17.49) (Z82.49) Family history of myocardial infarction (V17.3) (Z82.49) Social History Problems Denies alcohol consumption (V49.89) (Z78.9) Electronic cigarette use (305.1) (Z78.9) Feels safe at home Former smoker (V15.82) (Z87.891) No advance directives (V49.89) (Z78.9) No illicit drug use Sexually active Allergies Medication amLODIPine Besylate TABS Edema; Recorded By: Rae Rosenberg; 09/24/2019 10:32:36 AM Current Meds Medication NameInstruction busPIRone HCl - 5 MG Oral TabletTAKE 1 TABLET 3 times daily PRN anxiety Lisinopril 5 MG Oral TabletTAKE 0.5 TABLET Daily Loratadine 10 MG Oral TabletTAKE 1 TABLET DAILY NEEDED. medroxyPROGESTERone Acetate 5 MG Oral TabletTAKE 1 TABLET DAILY. Omeprazole 20 MG Oral Capsule Delayed Release Vitamin Plus Low Iron 27-1 MG Oral TabletTAKE 1 TABLET DAILY. Vitals Vital Signs Recorded: [id number] 11:08AM Emphwmeb757 Tdrnyyzev04 Height5 ft 8 in Axgeni992 lb 4.96 oz BMI Mrfzcoceje48 kg/m2 BSA Calculated2.03 Physical Exam General: None acute distress Eye: Intraocular movements are intact HEENT: Normocephalic Cardiovascular: Regular rate Respiratory: Respirations are nonlabored Gastroint (more content not included)... Normal [facility] [employer] No Panel Informationon 12-05 Normal [facility] and [address] Work Phone: PUBLIC HEALTH DENTIST - Office Visiton 11-11 PUBLIC HEALTH DENTIST - Office Visit Diagnoses/Problems Assessed Abnormal uterine bleeding (AUB) (626.9) (N93.9) Lesion of left ovary (620.9) (N83.9) Orders Start: medroxyPROGESTERone Acetate 5 MG Oral Tablet; TAKE 1 TABLET DAILY Testosterone, Level; Status:Active; Requested for:[id number]; Start: Vitamin Plus Low Iron 27-1 MG Oral Tablet; TAKE 1 TABLET DAILY Ultrasound Pelvis Transabdominal With Transvaginal; Status:Active; Requested for:[id number]; Radiologist to Determine Optimal Study : Y What are the patient's signs and symptoms? : left ovarian cyst on CT. No period 8 months Provider Impressions 1)AUB-plan to initiate a work-up though could be related to the Depo although it is getting a little bit longer as far as the timeframe. Reviewed CBC was normal TSH was normal test was negative in the emergency department. Plan to check a testosterone to rule out PCOS as well as we will get an ultrasound to evaluate for abnormal uterine bleeding as well as #2. Discussed management options as they are interested in fertility will likely do progesterone withdrawal today, to hopefully withdrawal and have a period before her wedding which is mid December. Precautions reviewed. vitamins sent and is attempting for in the near future. 2)Left ovary cyst-almost [address] so we will get a transvaginal ultrasound for this and #1 to evaluate this. Chief Complaint PT IS HERE TODAY HAD HER LAST DEPO IN MARCH AND STILL HAS NOT HAD A PERIOD. HAS HAD NO SPOTTING OR CRAMPING. HAD A TEST DONE WHEN SHE WAS IN THE ER ON 11/28/2021. History of Present [id number] G3, P2 presents to discuss not having cycle almost 8 months. Patient been on the Depo for a long time and just came off in the beginning years approaching 6 months since then. Patient says she is getting in December 23 and her are trying to have a baby. Patient she recently ED last night for upper abdominal pain and had imaging and lab work. Patient notes her pain is resolved this morning and she has no lower belly pain no problems or pain with intimacy Review of Systems Constitutional: No fevers, chills Eye:no vision changes Respiratory: no SOB Cardiovascular: no chest pain Gastrointestinal: No nausea, vomiting, diarrhea, constipation, abdominal pain Genitourinary:no dysuria Gynecology: See HPI Active Problems Problems Abnormal uterine bleeding (AUB) (626.9) (N93.9) BMI 31.0-31.9,adult (V85.31) (Z68.31) BPPV (benign paroxysmal positional vertigo) (386.11) (H81.10) Cervix dysplasia (622.10) (N87.9) Chronic renal insufficiency, stage III (moderate) (585.3) (N18.30) Class 1 obesity due to excess calories with serious comorbidity and body mass index (BMI) of 31.0 to 31.9 in adult (278.00,V85.31) (E66.09,Z68.31) Contraceptive management (V25.9) (Z30.9) Dysplasia of cervix, low grade (HENRIETTA 1) (622.11) (N87.0) Elevated LFTs (790.6) (R79.89) Essential hypertension (401.9) (I10) ELIZABETH (generalized anxiety disorder) (300.02) (F41.1) GERD (gastroesophageal reflux disease) (530.81) (K21.9) Glucose intolerance (impaired glucose tolerance) (790.22) (R73.02) Headache, acute (784.0) (R51.9) 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) Hypertriglyceridemia (272.1) (E78.1) Leg edema (782.3) (R60.0) Lesion of left ovary (620.9) (N83.9) Low serum HDL (272.9) (R74.8) Motion sickness (994.6) (T75.3XXA) Negative test (V72.41) (Z32.02) Numbness and tingling of foot (782.0) (R20.0,R20.2) Pain of left lower extremity (729.5) (M79.605) PND (post-nasal drip) (784.91) (R09.82) Raynauds disease (443.0) (I73.00) 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) Screening for breast cancer (V76.10) (Z12.39) Screening for cervical cancer (V76.2) (Z12.4) Seasonal allergies (477.9) (J30.2) Varicose veins of legs (454.9) (I83.93) Women's annual routine gynecological examination (V72.31) (Z01.419) Past Medical History Problems History of Chlamydia (079.98) (A74.9) History of Papanicolaou smear (V45.89) (Z98.890) 03/16/2020-ASC-US HPV NEG 09/02/2018-LSIL, HPV NEG ASCUS HPV Neg 2016 WNL 2014 LGSIL+HPV History of (V13.29) 12/2006 Male 3629g VAVD 2008 SAB 04/2012 F 3260g History of Influenza vaccination declined (V64.06) (Z28.21) REFUSED Surgical History Problems History of Colposcopy 2018-HENRIETTA I [address] of Loop electrosurgical excision procedure History of Oral surgery Family History Father Family history of osteoporosis (V17.81) (Z82.62) Other Family history of asthma (V17.5) (Z82.5) Family history of diabetes mellitus (V18.0) (Z83.3) Family history of hypertension (V17.49) (Z82.49) Family history of myocardial infarction (V17.3) (Z82.49) Social History Problems Denies alcohol consumption (V49.89) (Z78.9) Electronic cigarette use (305.1) (Z78.9) Feels safe at home Former smoker (V15.82) (Z87.891) No advance directives (V49.89) (Z78.9) No (more content not included)... Normal [facility] CT Abdomen and Pelvis with I V Contraston 11-28-2021 CT Abdomen and Pelvis W contrast IV Normal [facility] [employer] Work Phone: Complete Blood Count + Diffe rentialon 11-28-2021 Basophils/100 WBC (Bld) 0.6 % 0.0 - 2.0 [facility] [employer] Work Phone: Erythrocyte distribution width (RBC) [Ratio] 13.8 % See Below [facility] [employer] Work Phone: Comment on above: Reference Range: 11. 5 - 14.5 Hematocrit (Bld) [Volume fraction] 42.5 % See Below [facility] [employer] Work Phone: Comment on above: Reference Range: 36. 0 - 46.0 Hemoglobin (Bld) [Mass/Vol] 14.2 g/dL See Below [facility] [employer] Work Phone: Comment on above: Reference Range: 12. 0 - 16.0 Lymphocytes/100 WBC (Bld) 25.2 % See Below [facility] [employer] Work Phone: Comment on above: Reference Range: 13. 0 - 44.0 MCHC (RBC) [Mass/Vol] 33.5 g/dL See Below [facility] [employer] Work Phone: Comment on above: Reference Range: 32. 0 - 36.0 MCV (RBC) [Entitic vol] 85 fL 80 - 100 [facility] [employer] Work Phone: Monocytes/100 WBC (Bld) 9.5 % 2.0 - 10.0 [facility] [employer] Work Phone: Neutrophils/100 WBC (Bld) 59.5 % See Below [facility] [employer] Work Phone: Comment on above: Reference Range: 40. 0 - 80.0 Platelets (Bld) [#/Vol] 193 10*3/uL 150 - 450 [employer] [address] Work Phone: RBC (Bld) [#/Vol] 5.01 {x10E12/L} See Below [facility] and [address] Work Phone: Comment on above: Reference Range: 4.0 0 - 5.20 WBC (Bld) [#/Vol] 9.0 10*3/uL 4.4 - 11.3 [facility] and [address] Work Phone: Complete Blood Count + Differential 0.10 {x10E9/L} See Below [employer] and [employer] Work Phone: Comment on above: Reference Range: 0.0 0 - 0.10 Complete Blood Count + Differential 0.50 {x10E9/L} See Below [employer] [facility] [employer] Work Phone: Comment on above: Reference Range: 0.0 0 - 0.70 Complete Blood Count + Differential 0.90 {x10E9/L} See Below [employer] [facility] [employer] Work Phone: Comment on above: Reference Range: 0.1 0 - 1.00 Complete Blood Count + Differential 2.30 {x10E9/L} See Below [facility] [employer] Work Phone: Comment on above: Reference Range: 1.2 0 - 4.80 Complete Blood Count + Differential 5.40 {x10E9/L} See Below [employer] and [address] Work Phone: Comment on above: Reference Range: 1.2 0 - 7.70 Percent differential counts (%) should be interpreted in the context of the absolute cell counts (cells/L). Complete Blood Count + Differential 5.2 % 0.0 - 6.0 [facility] [employer] Work Phone: Complete Blood Count + Differential 0.1 {/100_WBC} [employer] [facility] [employer] Work Phone: Hepatic Function Panelon Albumin BCP dye [Mass/Vol] 3.8 g/dL 3.4 - 5.0 [employer] and [employer] Work Phone: ALP [Catalytic activity/Vol] 89 U/L 33 - 110 [facility] [employer] and [address] Work Phone: ALT With P-5'-P [Catalytic activity/Vol] 39 U/L 7 - 45 [employer] and [employer] Work Phone: Comment on above: Patients treated wit h Sulfasalazine may generate falsely decreased results for ALT. AST With P-5'-P [Catalytic activity/Vol] 32 U/L 9 - 39 [facility] [employer] Work Phone: Bilirubin [Mass/Vol] 0.4 mg/dL 0.0 - 1.2 [employer] and [employer] Work Phone: Bilirubin.direct [Mass/Vol] 0.1 mg/dL 0.0 - 0.3 [employer] [facility] [employer] Work Phone: Protein [Mass/Vol] 6.6 g/dL 6.4 - 8.2 [facility] and [employer] Work Phone: Laboratory - Chemistry and C hemistry - challengeon 11-28-2021 Anion gap [Moles/Vol] 11 mmol/L 10 - 20 [facility] and [employer] Work Phone: Calcium [Mass/Vol] 9.3 mg/dL 8.6 - 10.3 [facility] [employer] Work Phone: Chloride [Moles/Vol] 106 mmol/L 98 - 107 [facility] and [employer] Work Phone: CO2 [Moles/Vol] 26 mmol/L 21 - 32 [facility] and [employer] Work Phone: Creatinine [Mass/Vol] 1.24 mg/dL above high threshold See Below [facility] [address] Work Phone: Comment on above: Reference Range: 0.5 0 - 1.05 Glucose [Mass/Vol] 95 mg/dL 74 - 99 [facility] [address] Work Phone: Potassium [Moles/Vol] 3.8 mmol/L 3.5 - 5.3 [facility] [address] Work Phone: Sodium [Moles/Vol] 139 mmol/L 136 - 145 [facility] [address] Work Phone: Urea nitrogen [Mass/Vol] 16 mg/dL 6 - 23 [facility] [address] Work Phone: Lipase, Serumon 11-28-2021 Lipase [Catalytic activity/Vol] 39 U/L 9 - 82 [facility] [facility] [address] Work Phone: Comment on above: Venipuncture immedia tely after or during the administration of Metamizole may lead to falsely low results. Testing should be performed immediately prior to Metamizole dosing. Y-wxoxwp-g-benzoquinone imine (metabolite of Acetaminophen) will generate erroneously low results in samples for patients that have taken toxic doses of acetaminophen. No Panel Informationon 11-28 57 {mL/min/1.73m2} Abnormal >90 [facility] [address] Work Phone: Comment on above: CALCULATIONS OF RAUL MATED GFR ARE PERFORMED USING THE 2020 CKD-EPI STUDY REFIT EQUATION WITHOUT THE RACE VARIABLE FOR THE IDMS-TRACEABLE CREATININE METHODS.https://jasn.asnjournals.org/content// N.3378542331 TROPONIN I, HIGH SENSITIVITY on 11-28-2021 Tropinin I.cardiac panel High sensitivity method 8 ng/L 0 - 13 [facility] [address] Work Phone: Comment on above: .Less than 99th perc entile of normal range cutoff-Female and children under 18 years old <14 ng/L; Male <21 ng/L: NegativeRepeat testing should be performed if clinically indicated. .Female and children under 18 years old 14-50 ng/L; Male 21-50 ng/L:Consistent with possible cardiac damage and possible increased clinical risk. Serial measurements may help to assess extent of myocardial damage. .>50 ng/L: Consistent with cardiac damage, increased clinical risk andmyocardial infarction. Serial measurements may help assess extent of myocardial damage. . NOTE: Children less than 1 year old may have higher baseline troponin levels and results should be interpreted in conjunction with the overall clinical context. .NOTE: Troponin I testing is performed using a different testing methodology at [facility] than at other [facility]. Direct result comparisons should only be made within the same method. URINALYSIS WITH CULTURE IF I NDICATEDon 11-28-2021 Color (U) YELLOW See Below [facility] [employer] Work Phone: Comment on above: Reference Range: STR AW,YELLOW Glucose Ql (U) Negative NEGATIVE [facility] [address] Work Phone: Ketones Ql (U) Negative NEGATIVE [facility] [address] Work Phone: Leukocyte esterase Test strip Ql (U) Negative NEGATIVE [facility] [address] Work Phone: pH (U) 6.0 [pH] 5.0 - 8.0 [employer] and [employer] Work Phone: Protein (U) [Mass/Vol] Negative NEGATIVE [facility] [address] Work Phone: RBC (U) [#/Vol] Negative NEGATIVE [employer] [facility] and [address] Work Phone: Specific gravity (U) [Rel density] 1.020 1 See Below [facility] [address] Work Phone: Comment on above: Reference Range: 1.0 05 - 1.035 URINALYSIS WITH CULTURE IF INDICATED Negative NEGATIVE [employer] and [address] Work Phone: URINALYSIS WITH CULTURE IF INDICATED <2.0 0.0 - 1.9 [facility] [address] Work Phone: URINALYSIS WITH CULTURE IF INDICATED CLEAR CLEAR [facility] [address] Work Phone: Urine Teston 11-28 HCG ( test) Ql (U) Negative Negative [facility] [address] Work Phone: Complete Blood Count + Diffe rentialon 10-19-2021 Basophils/100 WBC (Bld) 0.7 % 0.0 - 2.0 [facility] Work Phone: Erythrocyte distribution width (RBC) [Ratio] 13.8 % See Below [facility] Work Phone: Comment on above: Reference Range: 11. 5 - 14.5 Hematocrit (Bld) [Volume fraction] 43.4 % See Below [facility] Work Phone: Comment on above: Reference Range: 36. 0 - 46.0 Hemoglobin (Bld) [Mass/Vol] 14.5 g/dL See Below [facility] Work Phone: Comment on above: Reference Range: 12. 0 - 16.0 Lymphocytes/100 WBC (Bld) 24.0 % See Below [facility] Work Phone: Comment on above: Reference Range: 13. 0 - 44.0 MCHC (RBC) [Mass/Vol] 33.4 g/dL See Below [facility] Work Phone: Comment on above: Reference Range: 32. 0 - 36.0 MCV (RBC) [Entitic vol] 85 fL 80 - 100 [facility] Work Phone: Monocytes/100 WBC (Bld) 9.4 % 2.0 - 10.0 [facility] Work Phone: Neutrophils/100 WBC (Bld) 61.1 % See Below [facility] Work Phone: Comment on above: Reference Range: 40. 0 - 80.0 Platelets (Bld) [#/Vol] 161 10*3/uL 150 - 450 [facility] Work Phone: RBC (Bld) [#/Vol] 5.10 {x10E12/L} See Below [facility] Work Phone: Comment on above: Reference Range: 4.0 0 - 5.20 WBC (Bld) [#/Vol] 7.6 10*3/uL 4.4 - 11.3 [facility] Work Phone: Complete Blood Count + Differential 0.10 {x10E9/L} See Below [facility] Work Phone: Comment on above: Reference Range: 0.0 0 - 0.10 Complete Blood Count + Differential 0.40 {x10E9/L} See Below [facility] Work Phone: Comment on above: Reference Range: 0.0 0 - 0.70 Complete Blood Count + Differential 0.70 {x10E9/L} See Below [facility] Work Phone: Comment on above: Reference Range: 0.1 0 - 1.00 Complete Blood Count + Differential 1.80 {x10E9/L} See Below [facility] Work Phone: Comment on above: Reference Range: 1.2 0 - 4.80 Complete Blood Count + Differential 4.60 {x10E9/L} See Below [facility] Work Phone: Comment on above: Reference Range: 1.2 0 - 7.70 Percent differential counts (%) should be interpreted in the context of the absolute cell counts (cells/L). Complete Blood Count + Differential 4.8 % 0.0 - 6.0 [facility] Work Phone: Complete Blood Count + Differential 0.2 {/100_WBC} [facility] Work Phone: Hemoglobin A1Con 08-10-2022 Glucose [Mass/Vol] 111 mg/dL [facility] Work Phone: HbA1c (Bld) [Mass fraction] 5.5 % [facility] Work Phone: Comment on above: Diagnosis of Diabete s-Adults Non-Diabetic: < or = 5.6% Increased risk for developing diabetes: 5.7-6.4% Diagnostic of diabetes: > or = 6.5%. Monitoring of Diabetes Age (y) Therapeutic Goal (%) Adults: >18 <7.0 Pediatrics: 13-18 <7.5 7-12 <8.0 0- 6 7.5-8.5 [place] Diabetes Association. Diabetes Care 33(S1), Mar 2009. Laboratory - Chemistry and C hemistry - challengeon 10-19-2021 Albumin BCP dye [Mass/Vol] 3.8 g/dL 3.4 - 5.0 [facility] Work Phone: ALP [Catalytic activity/Vol] 93 U/L 33 - 110 [facility] Work Phone: ALT With P-5'-P [Catalytic activity/Vol] 42 U/L 7 - 45 [facility] Work Phone: Comment on above: Patients treated wit h Sulfasalazine may generate falsely decreased results for ALT. Anion gap [Moles/Vol] 12 mmol/L 10 - 20 [facility] Work Phone: AST With P-5'-P [Catalytic activity/Vol] 25 U/L 9 - 39 [facility] Work Phone: Bilirubin [Mass/Vol] 0.6 mg/dL 0.0 - 1.2 [facility] Work Phone: Calcium [Mass/Vol] 9.1 mg/dL 8.6 - 10.3 [facility] Work Phone: Chloride [Moles/Vol] 108 mmol/L above high threshold 98 - 107 [facility] Work Phone: CO2 [Moles/Vol] 23 mmol/L 21 - 32 [facility] Work Phone: Creatinine [Mass/Vol] 1.39 mg/dL above high threshold See Below [facility] Work Phone: Comment on above: Reference Range: 0.5 0 - 1.05 Glucose [Mass/Vol] 116 mg/dL above high threshold 74 - 99 [facility] Work Phone: Potassium [Moles/Vol] 4.2 mmol/L 3.5 - 5.3 [facility] Work Phone: Protein [Mass/Vol] 6.5 g/dL 6.4 - 8.2 [facility] Work Phone: Sodium [Moles/Vol] 139 mmol/L 136 - 145 [facility] Work Phone: TSH Qn 3.40 m[IU]/L See Below [facility] Work Phone: Comment on above: Reference Range: 0.4 4 - 3.98 TSH testing is performed using different testing methodology at [facility] than at other [facility]. Direct result comparisons should only be made within the same method. Urea nitrogen [Mass/Vol] 17 mg/dL 6 - 23 [facility] Work Phone: Lipid Panelon 10-19-2021 Cholesterol [Mass/Vol] 180 mg/dL 0 - 199 [facility] Work Phone: Comment on above: . AGE DESIRABLE BORD AMA HIGH HIGH 0-19 Y 0 - 169 170 - 199 >/= 200 20-24 Y 0 - 189 190 - 224 >/= 225 >24 Y 0 - 199 200 - 239 >/= 240 All ranges are based on fasting samples. Specific therapeutic targets will vary based on patient-specific cardiac risk.. Pediatric guidelines reference:Pediatrics 2011, 128(S5). Adult guidelines reference: NCEP ATPIII Guidelines, NICA 2001, 258:2486-97. Venipuncture immediately after or during the administration of Metamizole may lead to falsely low results. Testing should be performed immediately prior to Metamizole dosing. Cholesterol in HDL [Mass/Vol] 29.0 mg/dL Abnormal [facility] Work Phone: Comment on above: . AGE VERY LOW LOW N ORMAL HIGH 0-19 Y < 35 < 40 40-45 ---- 20- 24 Y ---- < 40 >45 ---- >24 Y ---- < 40 40-60 >60. Cholesterol in LDL [Mass/Vol] 95 mg/dL 0 - 99 [facility] Work Phone: Comment on above: . NEAR BORD AGE EDIE RABLE OPTIMAL HIGH HIGH VERY HIGH 0-19 Y 0 - 109 --- 110-129 >/= 130 ---- 20-24 Y 0 - 119 --- 120-159 >/= 160 ---- >24 Y 0 - 99 100-129 130-159 160-189 >/=190. Cholesterol non HDL [Mass/Vol] 151 mg/dL [facility] Work Phone: Comment on above: AGE DESIRABLE BORDER LINE HIGH HIGH VERY HIGH 0-19 Y 0 - 119 120 - 144 >/= 145 >/= 160 20-24 Y 0 - 149 150 - 189 >/= 190 ---- >24 Y 30 MG/DL ABOVE LDL CHOLESTEROL GOAL. Cholesterol.total/Cho lesterol in HDL [Mass ratio] 6.2 {ratio} Abnormal [facility] Work Phone: Comment on above: REF VALUESDESIRABLE < 3.4HIGH RISK > 5.0 Triglyceride [Mass/Vol] 278 mg/dL above high threshold 0 - 149 [facility] Work Phone: Comment on above: . AGE DESIRABLE BORD AMA HIGH HIGH VERY HIGH 0 D-90 D 19 - 174 ---- ---- ----91 D- 9 Y 0 - 74 75 - 99 >/= 100 ---- 10-19 Y 0 - 89 90 - 129 >/= 130 ---- 20-24 Y 0 - 114 115 - 149 >/= 150 ---- >24 Y 0 - 149 150 - 199 200- 499 >/= 500. Venipuncture immediately after or during the administration of Metamizole may lead to falsely low results. Testing should be performed immediately prior to Metamizole dosing. Lipid Panel 56 mg/dL above high threshold 0 - 40 [facility] Work Phone: No Panel Informationon 10-19 50 {mL/min/1.73m2} Abnormal >90 [facility] Work Phone: Comment on above: CALCULATIONS OF RAUL MATED GFR ARE PERFORMED USING THE 2020 CKD-EPI STUDY REFIT EQUATION WITHOUT THE RACE VARIABLE FOR THE IDMS-TRACEABLE CREATININE METHODS.https://jasn.asnjournals.org/content/early// N.4180713197 Tobacco Screening.on 022 Adult depression screening assessment No [facility] Work Phone: Fall risk assessment a) No falls within the last year [facility] Work Phone: Tobacco use status [facility] b) No [facility] Work Phone: IO HCG, Urine Test on 04-04-2021 HCG ( test) Ql (U) Negative [employer] Work Phone: Complete Blood Count + Diffe rentialon 03-21-2021 Basophils/100 WBC (Bld) 0.7 % 0.0 - 2.0 [employer] Work Phone: Erythrocyte distribution width (RBC) [Ratio] 14.2 % See Below [employer] Work Phone: Comment on above: Reference Range: 11. 5 - 14.5 Hematocrit (Bld) [Volume fraction] 44.0 % See Below [employer] Work Phone: Comment on above: Reference Range: 36. 0 - 46.0 Hemoglobin (Bld) [Mass/Vol] 14.7 g/dL See Below [employer] Work Phone: Comment on above: Reference Range: 12. 0 - 16.0 Lymphocytes/100 WBC (Bld) 25.7 % See Below [employer] [facility] [address] Work Phone: Comment on above: Reference Range: 13. 0 - 44.0 MCHC (RBC) [Mass/Vol] 33.4 g/dL See Below [facility] [address] Work Phone: Comment on above: Reference Range: 32. 0 - 36.0 MCV (RBC) [Entitic vol] 84 fL 80 - 100 [employer] [address] Work Phone: Monocytes/100 WBC (Bld) 9.1 % 2.0 - 10.0 [facility] [address] Work Phone: Neutrophils/100 WBC (Bld) 60.1 % See Below [employer] and [address] Work Phone: Comment on above: Reference Range: 40. 0 - 80.0 Platelets (Bld) [#/Vol] 157 10*3/uL 150 - 450 [employer] [address] Work Phone: RBC (Bld) [#/Vol] 5.27 {x10E12/L} above high threshold See Below [employer] and [employer] Work Phone: Comment on above: Reference Range: 4.0 0 - 5.20 WBC (Bld) [#/Vol] 7.0 10*3/uL 4.4 - 11.3 [facility] [address] Work Phone: Complete Blood Count + Differential 0.00 {x10E9/L} See Below [employer] and [address] Work Phone: Comment on above: Reference Range: 0.0 0 - 0.10 Complete Blood Count + Differential 0.30 {x10E9/L} See Below [employer] [facility] [address] Work Phone: Comment on above: Reference Range: 0.0 0 - 0.70 Complete Blood Count + Differential 0.60 {x10E9/L} See Below [employer] [facility] [employer] Phone: Comment on above: Reference Range: 0.1 0 - 1.00 Complete Blood Count + Differential 1.80 {x10E9/L} See Below [employer] Phone: Comment on above: Reference Range: 1.2 0 - 4.80 Complete Blood Count + Differential 4.20 {x10E9/L} See Below [employer] Phone: Comment on above: Reference Range: 1.2 0 - 7.70 Percent differential counts (%) should be interpreted in the context of the absolute cell counts (cells/L). Complete Blood Count + Differential 4.4 % 0.0 - 6.0 [employer] Phone: Complete Blood Count + Differential 0.1 {/100_WBC} [employer] Phone: Hemoglobin A1Con 03-21-2021 Glucose [Mass/Vol] 126 mg/dL [employer] Phone: HbA1c (Bld) [Mass fraction] 6.0 % Abnormal [employer] Phone: Comment on above: Diagnosis of Diabete s-Adults Non-Diabetic: < or = 5.6% Increased risk for developing diabetes: 5.7-6.4% Diagnostic of diabetes: > or = 6.5%. Monitoring of Diabetes Age (y) Therapeutic Goal (%) Adults: >18 <7.0 Pediatrics: 13-18 <7.5 7-12 <8.0 0- 6 7.5-8.5 [place] Diabetes Association. Diabetes Care 33(S1), Mar 2009. Laboratory - Chemistry and C hemistry - challengeon 03-21-2021 Albumin BCP dye [Mass/Vol] 3.8 g/dL 3.4 - 5.0 [employer] Phone: Albumin Ql (U) <7.0 See Below [facility] Work Phone: Comment on above: Reference Range: Not [id number] and verified Albumin/Creatinine DL <= 20 mg/L (U) [Mass ratio] SEE COMMENT 0.0 - 30.0 [facility] [employer] Work Phone: Comment on above: One or more analytes used in this calculation is outside of the analytical measurement range.Calculation cannot be performed. ALP [Catalytic activity/Vol] 113 U/L above high threshold 33 - 110 [facility] [employer] Work Phone: ALT With P-5'-P [Catalytic activity/Vol] 52 U/L above high threshold 7 - 45 [facility] [employer] Work Phone: Comment on above: Patients treated wit h Sulfasalazine may generate falsely decreased results for ALT. Anion gap [Moles/Vol] 10 mmol/L 10 - 20 [facility] [employer] Work Phone: AST With P-5'-P [Catalytic activity/Vol] 36 U/L 9 - 39 [facility] and [employer] Work Phone: Bilirubin [Mass/Vol] 0.5 mg/dL 0.0 - 1.2 [employer] and [employer] Work Phone: Calcium [Mass/Vol] 9.4 mg/dL 8.6 - 10.3 [employer] and [employer] Work Phone: Chloride [Moles/Vol] 110 mmol/L above high threshold 98 - 107 [facility] and [employer] Work Phone: CO2 [Moles/Vol] 23 mmol/L 21 - 32 [employer] and [employer] Work Phone: Creatinine (U) [Mass/Vol] 100.0 mg/dL See Below [facility] and [employer] Work Phone: Comment on above: Reference Range: 20. 0 - 320.0 Creatinine [Mass/Vol] 1.14 mg/dL above high threshold See Below [facility] and [employer] Phone: Comment on above: Reference Range: 0.5 0 - 1.05 Glucose [Mass/Vol] 124 mg/dL above high threshold 74 - 99 [employer] and [employer] Work Phone: Potassium [Moles/Vol] 4.2 mmol/L 3.5 - 5.3 [employer] and [employer] Work Phone: Protein [Mass/Vol] 6.6 g/dL 6.4 - 8.2 [employer] and [employer] Work Phone: Sodium [Moles/Vol] 139 mmol/L 136 - 145 [employer] and [employer] Work Phone: Urea nitrogen [Mass/Vol] 15 mg/dL 6 - 23 [facility] and [employer] Work Phone: Laboratory - Cytologyon 03-12 Cytology report Cyto stain.thin prep Doc (Cvx/Vag) [facility] and [employer] Work Phone: Lipid Panelon 03-21-2021 Cholesterol [Mass/Vol] 179 mg/dL 0 - 199 [facility] and [employer] Work Phone: Comment on above: . AGE DESIRABLE BORD AMA HIGH HIGH 0-19 Y 0 - 169 170 - 199 >/= 200 20-24 Y 0 - 189 190 - 224 >/= 225 >24 Y 0 - 199 200 - 239 >/= 240 All ranges are based on fasting samples. Specific therapeutic targets will vary based on patient-specific cardiac risk.. Pediatric guidelines reference:Pediatrics 2011, 128(S5). Adult guidelines reference: NCEP ATPIII Guidelines, NICA 2001, 258:2486-97. Venipuncture immediately after or during the administration of Metamizole may lead to falsely low results. Testing should be performed immediately prior to Metamizole dosing. Cholesterol in HDL [Mass/Vol] 32.0 mg/dL Abnormal [facility] and [employer] Work Phone: Comment on above: . AGE VERY LOW LOW N ORMAL HIGH 0-19 Y < 35 < 40 40-45 ---- 20- 24 Y ---- < 40 >45 ---- >24 Y ---- < 40 40-60 >60. Cholesterol in LDL [Mass/Vol] 104 mg/dL above high threshold 0 - 99 [employer] Phone: Comment on above: . NEAR BORD AGE EDIE RABLE OPTIMAL HIGH HIGH VERY HIGH 0-19 Y 0 - 109 --- 110-129 >/= 130 ---- 20-24 Y 0 - 119 --- 120-159 >/= 160 ---- >24 Y 0 - 99 100-129 130-159 160-189 >/=190. Cholesterol non HDL [Mass/Vol] 147 mg/dL [employer] Phone: Comment on above: AGE DESIRABLE BORDER LINE HIGH HIGH VERY HIGH 0-19 Y 0 - 119 120 - 144 >/= 145 >/= 160 20-24 Y 0 - 149 150 - 189 >/= 190 ---- >24 Y 30 MG/DL ABOVE LDL CHOLESTEROL GOAL. Cholesterol.total/Cho lesterol in HDL [Mass ratio] 5.6 {ratio} Abnormal [employer] Phone: Comment on above: REF VALUESDESIRABLE < 3.4HIGH RISK > 5.0 Triglyceride [Mass/Vol] 215 mg/dL above high threshold 0 - 149 [employer] Phone: Comment on above: . AGE DESIRABLE BORD AMA HIGH HIGH VERY HIGH 0 D-90 D 19 - 174 ---- ---- ----91 D- 9 Y 0 - 74 75 - 99 >/= 100 ---- 10-19 Y 0 - 89 90 - 129 >/= 130 ---- 20-24 Y 0 - 114 115 - 149 >/= 150 ---- >24 Y 0 - 149 150 - 199 200- 499 >/= 500. Venipuncture immediately after or during the administration of Metamizole may lead to falsely low results. Testing should be performed immediately prior to Metamizole dosing. Lipid Panel 43 mg/dL above high threshold 0 - 40 [facility] and [address] Work Phone: No Panel Informationon 03-21 63 {mL/min/1.73m2} Abnormal >90 [facility] and [address] Work Phone: Comment on above: CALCULATIONS OF RAUL MATED GFR ARE PERFORMED USING THE 2020 CKD-EPI STUDY REFIT EQUATION WITHOUT THE RACE VARIABLE FOR THE IDMS-TRACEABLE CREATININE METHODS.https://jasn.asnjournals.org/content/early// N.4449375445 Tobacco Screening.on 022 Fall risk assessment a) No falls within the last year [facility] and [address] Work Phone: Last menstrual period start date DEPO [facility] [address] Work Phone: Tobacco use status [facility] b) No [facility] [address] Work Phone: Tobacco Screening.on 021 Fall risk assessment a) No falls within the last year [facility] Work Phone: Tobacco use status [facility] b) No [facility] Work Phone: Complete Blood Count + Diffe rentialon 09-19-2020 Basophils/100 WBC (Bld) 0.9 % 0.0 - 2.0 [facility] Work Phone: Erythrocyte distribution width (RBC) [Ratio] 13.6 % See Below [facility] Work Phone: Comment on above: Reference Range: 11. 5 - 14.5 Hematocrit (Bld) [Volume fraction] 43.4 % See Below [facility] Work Phone: Comment on above: Reference Range: 36. 0 - 46.0 Hemoglobin (Bld) [Mass/Vol] 14.3 g/dL See Below [facility] Work Phone: Comment on above: Reference Range: 12. 0 - 16.0 Lymphocytes/100 WBC (Bld) 28.3 % See Below [facility] Work Phone: Comment on above: Reference Range: 13. 0 - 44.0 MCHC (RBC) [Mass/Vol] 33.0 g/dL See Below [facility] Work Phone: Comment on above: Reference Range: 32. 0 - 36.0 MCV (RBC) [Entitic vol] 86 fL 80 - 100 [facility] Work Phone: Monocytes/100 WBC (Bld) 9.4 % 2.0 - 10.0 [facility] Work Phone: Neutrophils/100 WBC (Bld) 56.3 % See Below [facility] Work Phone: Comment on above: Reference Range: 40. 0 - 80.0 Platelets (Bld) [#/Vol] 163 10*3/uL 150 - 450 [facility] Work Phone: RBC (Bld) [#/Vol] 5.03 {x10E12/L} See Below [facility] Work Phone: Comment on above: Reference Range: 4.0 0 - 5.20 WBC (Bld) [#/Vol] 6.8 10*3/uL 4.4 - 11.3 [facility] Work Phone: Complete Blood Count + Differential 0.10 {x10E9/L} See Below [facility] Work Phone: Comment on above: Reference Range: 0.0 0 - 0.10 Complete Blood Count + Differential 0.30 {x10E9/L} See Below [facility] Work Phone: Comment on above: Reference Range: 0.0 0 - 0.70 Complete Blood Count + Differential 0.60 {x10E9/L} See Below [facility] Work Phone: Comment on above: Reference Range: 0.1 0 - 1.00 Complete Blood Count + Differential 1.90 {x10E9/L} See Below [facility] Work Phone: Comment on above: Reference Range: 1.2 0 - 4.80 Complete Blood Count + Differential 3.80 {x10E9/L} See Below [facility] Work Phone: Comment on above: Reference Range: 1.2 0 - 7.70 Percent differential counts (%) should be interpreted in the context of the absolute cell counts (cells/L). Complete Blood Count + Differential 5.1 % 0.0 - 6.0 [facility] Work Phone: Complete Blood Count + Differential 0.2 {/100_WBC} [facility] Work Phone: Hemoglobin A1Con 09-19-2020 Glucose [Mass/Vol] 120 mg/dL [facility] Work Phone: HbA1c (Bld) [Mass fraction] 5.8 % [facility] Work Phone: Comment on above: Diagnosis of Diabete s-Adults Non-Diabetic: < or = 5.6% Increased risk for developing diabetes: 5.7-6.4% Diagnostic of diabetes: > or = 6.5%. Monitoring of Diabetes Age (y) Therapeutic Goal (%) Adults: >18 <7.0 Pediatrics: 13-18 <7.5 7-12 <8.0 0- 6 7.5-8.5 [place] Diabetes Association. Diabetes Care 33(S1), Mar 2009. Laboratory - Chemistry and C hemistry - challengeon 09-19-2020 Albumin BCP dye [Mass/Vol] 3.7 g/dL 3.4 - 5.0 [facility] Work Phone: ALP [Catalytic activity/Vol] 99 U/L 33 - 110 [facility] Work Phone: ALT With P-5'-P [Catalytic activity/Vol] 57 U/L above high threshold 7 - 45 [facility] Work Phone: Comment on above: Patients treated wit h Sulfasalazine may generate falsely decreased results for ALT. Anion gap [Moles/Vol] 10 mmol/L 10 - 20 [facility] Work Phone: AST With P-5'-P [Catalytic activity/Vol] 39 U/L 9 - 39 [facility] Work Phone: Bilirubin [Mass/Vol] 0.7 mg/dL 0.0 - 1.2 [facility] Work Phone: Calcium [Mass/Vol] 9.0 mg/dL 8.6 - 10.3 [facility] Work Phone: Chloride [Moles/Vol] 109 mmol/L above high threshold 98 - 107 [facility] Work Phone: CO2 [Moles/Vol] 24 mmol/L 21 - 32 [facility] Work Phone: Creatinine [Mass/Vol] 1.27 mg/dL above high threshold See Below [facility] Work Phone: Comment on above: Reference Range: 0.5 0 - 1.05 Glucose [Mass/Vol] 112 mg/dL above high threshold 74 - 99 [facility] Work Phone: Potassium [Moles/Vol] 4.3 mmol/L 3.5 - 5.3 [facility] Work Phone: Protein [Mass/Vol] 6.5 g/dL 6.4 - 8.2 [facility] Work Phone: Sodium [Moles/Vol] 139 mmol/L 136 - 145 [facility] Work Phone: Urea nitrogen [Mass/Vol] 15 mg/dL 6 - 23 [facility] Work Phone: Lipid Panelon 09-19-2020 Cholesterol [Mass/Vol] 178 mg/dL 0 - 199 [facility] Work Phone: Comment on above: . AGE DESIRABLE BORD AMA HIGH HIGH 0-19 Y 0 - 169 170 - 199 >/= 200 20-24 Y 0 - 189 190 - 224 >/= 225 >24 Y 0 - 199 200 - 239 >/= 240 All ranges are based on fasting samples. Specific therapeutic targets will vary based on patient-specific cardiac risk.. Pediatric guidelines reference:Pediatrics 2011, 128(S5). Adult guidelines reference: NCEP ATPIII Guidelines, NICA 2001, 258:2486-97. Venipuncture immediately after or during the administration of Metamizole may lead to falsely low results. Testing should be performed immediately prior to Metamizole dosing. Cholesterol in HDL [Mass/Vol] 30.0 mg/dL Abnormal [facility] Work Phone: Comment on above: . AGE VERY LOW LOW N ORMAL HIGH 0-19 Y < 35 < 40 40-45 ---- 20- 24 Y ---- < 40 >45 ---- >24 Y ---- < 40 40-60 >60. Cholesterol in LDL [Mass/Vol] 95 mg/dL 0 - 99 [facility] Work Phone: Comment on above: . NEAR BORD AGE EDIE RABLE OPTIMAL HIGH HIGH VERY HIGH 0-19 Y 0 - 109 --- 110-129 >/= 130 ---- 20-24 Y 0 - 119 --- 120-159 >/= 160 ---- >24 Y 0 - 99 100-129 130-159 160-189 >/=190. Cholesterol non HDL [Mass/Vol] 148 mg/dL [facility] Work Phone: Comment on above: AGE DESIRABLE BORDER LINE HIGH HIGH VERY HIGH 0-19 Y 0 - 119 120 - 144 >/= 145 >/= 160 20-24 Y 0 - 149 150 - 189 >/= 190 ---- >24 Y 30 MG/DL ABOVE LDL CHOLESTEROL GOAL. Cholesterol.total/Cho lesterol in HDL [Mass ratio] 5.9 {ratio} Abnormal [facility] Work Phone: Comment on above: REF VALUESDESIRABLE < 3.4HIGH RISK > 5.0 Triglyceride [Mass/Vol] 263 mg/dL above high threshold 0 - 149 [facility] Work Phone: Comment on above: . AGE DESIRABLE BORD AMA HIGH HIGH VERY HIGH 0 D-90 D 19 - 174 ---- ---- ----91 D- 9 Y 0 - 74 75 - 99 >/= 100 ---- 10-19 Y 0 - 89 90 - 129 >/= 130 ---- 20-24 Y 0 - 114 115 - 149 >/= 150 ---- >24 Y 0 - 149 150 - 199 200- 499 >/= 500. Venipuncture immediately after or during the administration of Metamizole may lead to falsely low results. Testing should be performed immediately prior to Metamizole dosing. Lipid Panel 53 mg/dL above high threshold 0 - 40 [facility] Work Phone: No Panel Informationon 09-19 57 {mL/min/1.73m2} Abnormal >60 [facility] Work Phone: Comment on above: CALCULATIONS OF RAUL MATED GFR ARE PERFORMED USING THE MDRD STUDY EQUATION FOR THE IDMS-TRACEABLE CREATININE METHODS. CLIN CHEM 2007;53:766-72 47 {mL/min/1.73m2} Abnormal >60 [facility] Work Phone: IGP W/hpv Rfx [id number] 09-09 Diagnosis: See Ref Lab Report Normal [facility] Comment on above: Performed By: #### 1 [id number] #### RE[facility] [employer] [address] [address] HPV HIGH RISK ([place] ONLY)o n 09-06-2018 HPV COMMENT SEE BELOW Normal [facility] Comment on above: Result Comment: The HPV test detects E6/E7 vial messenger RNA (mRNA) high-risk HPV genotypes 16, 18, 31, 33, 35, 39, 45, 51, 55, 58, 59, 66 and 68, which are associated with cervical cancer and its precursor lesions. However, cross-reactions with other genotypes may occur. Results should be correlated with cytologic and histologic findings. Sensitivity may be affected by cellularity of specimen. Performed By: #### H [facility] #### [address] [address] HPV RNA, HIGH RISK Negative Normal NEGATIVE [facility] Comment on above: Performed By: #### H PV #### [facility] [address] [place] [address] [facility] 09-02-2018 [facility] Date of Procedure: 09/02/2018 Pathologist: ALFONZO AVITIA MD Date Reported: 09/06/2018 Date Received: 09/03/2018 Submitting Physician: LESLY TEMPLE MD FINAL CYTOLOGICAL INTERPRETATION Squamous and/or Glandular Abnormality A. THINPREP PAP Cervical / Endocervical Reflex - Ascus only: Specimen Adequacy: SATISFACTORY FOR EVALUATION. Quality Indicator: Absence of endocervical/transforma tion zone component. General Categorization: EPITHELIAL CELL ABNORMALITY - SQUAMOUS CELL. See Interpretation. 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 HIGH RISK HPV TEST RESULT: NEGATIVE Reference Range: Negative Electronically Signed Out By ALFONZO AVITIA MD/FHDontrell/MXDakota By the signature on this report, the individual or group listed as making the Final Interpretation/Diagnosi s certifies that they have reviewed this case. Educational Note: Cervical cytology is a screening procedure primarily for squamous cancers and precursors and has associated false-negative and false-positive results as evidenced by published data. Your patient?s test should be interpreted in this context, together with patient?s history and clinical findings. Regular sampling and follow-up of unexplained clinical signs and symptoms are recommended to minimize false negative results. Clinical History Date of Last Menstrual Period: {Not Entered} Contraceptive History: Depo Provera Previous Abnormal Cytology: ASCUS: 2018 Other Clinical Conditions: Reflex HPV Testing Ordered: Ascus and Above Bloody Prep - Reprocessed with addition of Glacial Acetic Acid Z12.4, Z11.51 Source of Specimen A: THINPREP PAP Cervical / Endocervical Reflex - Ascus only Normal [facility] HPV HIGH RISK ([facility])o n 09-02-2018 Lab Specimen Source Genital cervix Normal [facility] Comment on above: Performed By: #### H PV #### [facility] [address] [place] [address] Auto Diffon 06-17-2018 Basophils (Bld) [#/Vol] 0.1 E3/mcL Normal 0.0-0.2 [facility] Comment on above: Order Comment: Order Added by Discern Expert. Performed By: #### 2 [id number] #### REGINA [employer] [address] [place] [address] Basophils/100 WBC (Bld) 1.1 % Normal 0.0-2.0 [facility] Comment on above: Order Comment: Order Added by Discern Expert. Performed By: #### 2 [id number] #### REGINA [employer] [address] [place] [address] Eos Absolute 0.3 E3/mcL Normal 0.0-0.7 [facility] Comment on above: Order Comment: Order Added by Discern Expert. Performed By: #### 2 [id number] #### REGINA [employer] [address] [place] [address] Eosinophils/100 WBC (Bld) 4.6 % Normal 0.0-11.0 [facility] Comment on above: Order Comment: Order Added by Marifer Expert. Performed By: #### 2 [id number] #### REGINA [employer] [address] [place] [address] Lymphocytes (Bld) [#/Vol] 1.9 E3/mcL Normal 1.2-3.4 [facility] Comment on above: Order Comment: Order Added by [employer]ifer Expert. Performed By: #### 2 [id number] #### REGINA [employer] [address] [place] [address] Lymphocytes/100 WBC (Bld) 26.1 % Normal 20.0-55.0 [facility] Comment on above: Order Comment: Order Added by Discern Expert. Performed By: #### 2 [id number] #### REGINA [employer] [address] [place] [address] [place] Absolute 0.7 E3/mcL Normal 0.0-0.7 [facility] Comment on above: Order Comment: Order Added by [employer]ifer Expert. Performed By: #### 2 [id number] #### REGINA [employer] [address] [place] [address] Monocytes/100 WBC (Bld) 9.2 % Normal 0.0-10.0 [facility] Comment on above: Order Comment: Order Added by Discern Expert. Performed By: #### 2 [id number] #### REGINA [employer] [address] [place] [address] Neutro Absolute 4.2 E3/mcL Normal 1.4-6.5 [facility] Comment on above: Order Comment: Order Added by Discern Expert. Performed By: #### 2 [id number] #### REGINA [employer] [address] [place] [address] Neutro Auto 59.0 % Normal 37.0-75.0 [facility] Comment on above: Order Comment: Order Added by Discern Expert. Performed By: #### 2 [id number] #### REGINA [employer] [address] [place] [address] CBC w/ Auto Diffon 9 Erythrocyte distribution width (RBC) [Ratio] 14.6 % High 11.5-14.5 [facility] Comment on above: Performed By: #### 2 [id number] #### REGINA [employer] [address] [place], [place] [id number] Hematocrit (Bld) [Volume fraction] 42.2 % Normal 36.0-48.0 [facility] Comment on above: Performed By: #### 2 [id number] #### REGINA [employer] [address] [place] [address] Hemoglobin (Bld) [Mass/Vol] 14.1 g/dL Normal 12.0-16.0 [facility] Comment on above: Performed By: #### 2 [id number] #### REGINA [employer] [address] [place] [address] MCH (RBC) [Entitic mass] 28.8 pg Normal 27.0-31.0 [facility] Comment on above: Performed By: #### 2 [id number] #### REGINA [employer] [address] [place] [address] MCHC (RBC) [Mass/Vol] 33.3 g/dL Normal 33.0-37.0 [facility] Comment on above: Performed By: #### 2 [id number] #### REGINA [employer] [address] [place] [address] MCV (RBC) [Entitic vol] 86.3 fL Normal 78.0-100.0 [facility] Comment on above: Performed By: #### 2 [id number] #### REGINA [employer] [address] [place] [address] Platelet mean volume (Bld) [Entitic vol] 8.5 fL Normal 7.4-11.0 [facility] Comment on above: Performed By: #### 2 [id number] #### REGINA [employer] [address] [place] [address] Platelets (Bld) [#/Vol] 158 E3/mcL Normal 130-400 [facility] Comment on above: Performed By: #### 2 [id number] #### REGINA [employer] [facility] [place] [address] RBC (Bld) [#/Vol] 4.89 E6/mcL Normal 3.90-5.40 [facility] Comment on above: Performed By: #### 2 [id number] #### REGINA [employer] [facility] [place] [address] WBC (Bld) [#/Vol] 7.1 E3/mcL Normal 3.6-11.0 [facility] Comment on above: Performed By: #### 2 [id number] #### REGINA [employer] [facility] [place] [address] CMPon 06-17-2018 Albumin [Mass/Vol] 3.7 g/dL Normal 3.4-5.0 [facility] Comment on above: Performed By: #### 2 [id number] #### REGINA [employer] [address] [place] [address] Albumin/Globulin [Mass ratio] 1.4 {ratio} Normal 1.1-1.9 [facility] Comment on above: Performed By: #### 2 [id number] #### REGINA [employer] [address] [place] [address] Alk Phos 89 Int._Unit/L Normal 33-110 [facility] Comment on above: Performed By: #### 2 200061 #### REGINA [employer] [address] [place] [address] ALT [Catalytic activity/Vol] 43 Int._Unit/L Normal 7-45 [facility] Comment on above: Performed By: #### 2 [id number] #### REGINA [employer] [address] [place] [address] Anion gap [Moles/Vol] 11 mmol/L Normal 10-20 [facility] Comment on above: Performed By: #### 2 [id number] #### REGINA [employer] [address] [place] [address] AST [Catalytic activity/Vol] 27 Int._Unit/L Normal 9-39 [facility] Comment on above: Performed By: #### 2 [id number] #### REGINA [employer] [address] [place] [address] Bili Total 0.48 mg/dL Normal 0.00-1.20 [facility] Comment on above: Performed By: #### 2 [id number] #### REGINA [employer] [address] [place] [address] Calcium [Mass/Vol] 8.7 mg/dL Normal 8.6-10.3 [facility] Comment on above: Performed By: #### 2 [id number] #### REGINA [employer] [address] [place] [address] Chloride [Moles/Vol] 108 mmol/L High 98-107 [facility] Comment on above: Performed By: #### 2 [id number] #### REGINA [employer] [address] [place] [address] CO2 [Moles/Vol] 22.0 mmol/L Normal 21.0-32.0 [facility] Comment on above: Performed By: #### 2 060515 #### REGINA [employer] [address] [place] [address] Creatinine [Mass/Vol] 1.2 mg/dL High 0.5-1.1 [facility] Comment on above: Performed By: #### 2 159072 #### REGINA [employer] [address] [place] [address] Globulin (S) [Mass/Vol] 3.0 g/dL Normal 2.0-4.0 [facility] Comment on above: Performed By: #### 2 [id number] #### REGINA [employer] [address] [place] [address] Glucose [Mass/Vol] 140 mg/dL High 70-99 [facility] Comment on above: Performed By: #### 2 [id number] #### REGINA [employer] [address] [place] [address] Potassium [Moles/Vol] 4.3 mmol/L Normal 3.5-5.3 [facility] Comment on above: Performed By: #### 2 [id number] #### REGINA [employer] [address] [place] [address] Protein [Mass/Vol] 6.3 g/dL Low 6.4-8.2 [facility] Comment on above: Performed By: #### 2 [id number] #### REGINA [employer] [facility] [place] [address] Sodium [Moles/Vol] 137 mmol/L Normal 136-145 [facility] Comment on above: Performed By: #### 2 [id number] #### REGINA [employer] [address] [place] [address] Urea nitrogen [Mass/Vol] 20 mg/dL Normal 6-23 [facility] Comment on above: Performed By: #### 2 [id number] #### REGINA [employer] [address] [place] [address] Urea nitrogen/Creatinine [Mass ratio] 16.7 ratio Normal 5.4-30.0 [facility] Comment on above: Performed By: #### 2 [id number] #### REGINA [employer] [address] [place] [address] [id number] 06-17-2018 HbA1c (Bld) [Mass fraction] 5.7 % Normal 4.0-6.3 [facility] Comment on above: Performed By: #### 3 [id number] #### REGINA Chemistry Manual Subsection [address] [place] [address] eGFRon 06-17-2018 GFR/1.73 sq M predicted among non-blacks MDRD (S/P/Bld) [Vol rate/Area] mL/min/{1.73_m2} Normal [facility] Comment on above: Order Comment: Order added by Discern Expert. Performed By: #### 1 [id number] #### REGINA [employer] [address] [place], [place] [address] GFR/1.73 sq M predicted among non-blacks MDRD (S/P/Bld) [Vol rate/Area] 51 mL/min/1.73 m2 Normal [facility] Comment on above: Order Comment: Order added by Discern Expert. Performed By: #### 1 [id number] #### REGINA [employer] [address] [place], [place] [address] CMPon 12-17-2017 Globulin (S) [Mass/Vol] 3.0 g/dL Normal 2.0-4.0 [facility] Comment on above: Performed By: #### 2 [id number] #### REGINA [employer] [address] [place] [address] Anion gap [Moles/Vol] 10 mmol/L Normal 6-16 [facility] Comment on above: Performed By: #### 2 [id number] #### REGINA [employer] [address] [place], [place] [address] Albumin [Mass/Vol] 3.8 g/dL Normal 3.4-5.0 [facility] Comment on above: Performed By: #### 2 [id number] #### REGINA [employer] [address] [place], [place] [address] Albumin/Globulin [Mass ratio] 1.4 {ratio} Normal 1.1-1.9 [facility] Comment on above: Performed By: #### 2 [id number] #### REGINA [employer] [address] [place] [address] Alk Phos 108 Int._Unit/L Normal 33-110 [facility] Comment on above: Performed By: #### 2 [id number] #### REGINA [employer] [address] [place] [address] ALT [Catalytic activity/Vol] 47 Int._Unit/L High 7-45 [facility] Comment on above: Performed By: #### 2 [id number] #### REGINA [employer] [address] [place] [address] AST [Catalytic activity/Vol] 32 Int._Unit/L Normal 9-39 [facility] Comment on above: Performed By: #### 2 [id number] #### REGINA [employer] [address] [place] [address] Bili Total 0.5 mg/dL Normal 0.0-1.2 [facility] Comment on above: Performed By: #### 2 [id number] #### [facility] [employer] [address] [place] [address] [id number] Calcium [Mass/Vol] 9.1 mg/dL Normal 8.6-10.3 [facility] Comment on above: Performed By: #### 2 [id number] #### [employer] [address] [place] [address] 81196 Chloride [Moles/Vol] 108 mmol/L High 98-107 [facility] Comment on above: Performed By: #### 2 [id number] #### [facility] [employer] [address] [place] [address] 53287 CO2 [Moles/Vol] 24.0 mmol/L Normal 21.0-32.0 [facility] Comment on above: Performed By: #### 2 [id number] #### [facility] [employer] [address] [place] [address] 50441 Creatinine [Mass/Vol] 1.3 mg/dL Normal 0.6-1.3 [facility] Comment on above: Performed By: #### 2 [id number] #### [facility] [employer] [address] [place] [address] 21451 Glucose [Mass/Vol] 98 mg/dL Normal 70-99 [facility] Comment on above: Performed By: #### 2 [id number] #### [facility] [employer] [address] [place] [address] 91764 Potassium [Moles/Vol] 4.2 mmol/L Normal 3.5-5.3 [facility] Comment on above: Performed By: #### 2 [id number] #### [facility] [employer] [address] [place] [address] 47328 Protein [Mass/Vol] 6.6 g/dL Normal 6.4-8.2 [facility] Comment on above: Performed By: #### 2 [id number] #### [employer] [address] [place] [address] 63751 Sodium [Moles/Vol] 138 mmol/L Normal 136-145 [facility] Comment on above: Performed By: #### 2 [id number] #### [employer] [address] [place] [address] Urea nitrogen [Mass/Vol] 17 mg/dL Normal 6-23 [facility] Comment on above: Performed By: #### 2 [id number] #### [employer] [facility] [place] [address] Urea nitrogen/Creatinine [Mass ratio] 13.1 ratio Normal 5.4-30.0 [facility] Comment on above: Performed By: #### 2 [id number] #### [employer] [address] [place] [address] 43796 Lipid Profileon 12-17-2017 Cholesterol [Mass/Vol] 175 mg/dL Normal 120-200 [facility] Comment on above: Result Comment: LADONNA Colin CHOLEESTEROL: <200 NORMAL 200 - 239 BORDERLINE HIGH >240 HIGH Performed By: #### 3 [id number] #### [employer] [address] [place] [address] 39795 Cholesterol in HDL [Mass/Vol] 29 mg/dL Normal [facility] Comment on above: Performed By: #### 3 [id number] #### [employer] [address] [place] [address] 51190 Cholesterol in LDL [Mass/Vol] 98 mg/dL Normal 0-130 [facility] Comment on above: Result Comment: <100 OPTIMAL 100-129 NEAR / ABOVE OPTIMAL 130-159 BORDERLINE HIGH 160-189 HIGH >190 VERY HIGH CALC LDL NOT VALID WHEN TRIGLYCERIDE IS >400 MG/DL Performed By: #### 3 [id number] #### [employer] [address] [place] [address] 23650 Cholesterol in VLDL [Mass/Vol] 48 mg/dL Normal [facility] Comment on above: Performed By: #### 3 [id number] #### [employer] [address] [place] [address] 08190 Triglyceride [Mass/Vol] 238 mg/dL High 0-150 [facility] Comment on above: Result Comment: <150 NORMAL 150-199 BORDERLINE HIGH 200-499 HIGH >500 VERY HIGH Performed By: #### 3 [id number] #### [employer] [address] [place] [address] 97060 eGFRon 12-17-2017 GFR/1.73 sq M predicted among non-blacks MDRD (S/P/Bld) [Vol rate/Area] 56 mL/min/1.73 m2 Normal [facility] Comment on above: Order Comment: Order added by Discern Expert. Performed By: #### 1 [id number] #### [facility] [employer] [address] [place] [address] GFR/1.73 sq M predicted among non-blacks MDRD (S/P/Bld) [Vol rate/Area] 46 mL/min/1.73 m2 Normal [facility] Comment on above: Order Comment: Order added by Discern Expert. Performed By: #### 1 [id number] #### [facility] [employer] [address] [place] [address] Pathology ([facility])on 07-12-2017 Pathology ([facility]) FINAL GYNECOLOGIC CYTOLOGY [id number] N ADEQUACYSatisfactory for Evaluation. Endocervical cells/transformation zone componentpresent.GENERA L CATEGORIZATIONEpithelia l Cell AbnormalityDESCRIPTIVE DIAGNOSISAtypical squamous cells of undetermined significance.Shift in vaginal charo suggestive of bacterial vaginosis.COMMENTHigh Risk HPV was ordered and performed at [facility]. Results arereported below in this report. A negative result is a normal result. Apositive result is an abnormal result.HPV HIGH RISK NEGATIVE: The results of this test indicate the patient'sspecimen is NEGATIVE for the following high-risk HPV types:16/18/31/33/35/39 /45/51/52/56/58/59/66/6 8. RELATED LABORATORY RESULTSOrdered by: JustinmindRONereyda Date: 07/12/2017 Ord Time: 21:33Test Collected Result Abnormal Range Units SpecimenName D&T TypeHPV Negative NA MSCRNA, 8HighRiskThe HPV test detects E6/E7 viral messenger RNA (mRNA) high-risk HPV djfdnaaio83,18,31,33,35 ,39,45,51,55,58,59,66, and 68 which are associated with cervicalcancer and its precursor lesions. However, cross-reactions with othergenotypes may occur. Results should be correlated with cytologic andhistologic findings. Sensitivity may be affected by cellularity of specimen.CLINICAL HISTORYComment: LMP: DepoSPECIMEN(A) SCREENING CERVICAL/ENDOCERVICAL THIN PREP VIALPerformed at [facility], [address] [place], [place] [address]Eglcsfmc by: DEVI HUERTA, Rivet Catcher Signed Out by: CARLYN LOCKETT M.D. Reported: 07/23/2017 Normal [facility] Comment on above: Performed By: #### G SamN ####[facility] [address] [place] [address] Vital Signs Date Time Vital Sign Value Performing Clinician Facility 09-29-2024 09:20-0400 Diastolic blood pressure 69 mm[Hg] Antonio Hodge MD Work Phone: [facility] 09-29-2024 09:20-0400 Heart rate 62 /min Antonio Hodge MD Work Phone: [facility] 09-29-2024 09:20-0400 Respiratory rate 16 /min Antonio Hodge MD Work Phone: [facility] 09-29-2024 09:20-0400 SaO2% (BldA) [Mass fraction] 99 % Antonio Hodge MD Work Phone: [facility] 09-29-2024 09:20-0400 Systolic blood pressure 106 mm[Hg] Antonio Hodge MD Work Phone: [facility] 09-29-2024 09:10-0400 Body temperature 37.0 degrees Celsius [facility] Comment on above: Performed By: #### [id number] #### ALVAREZ CHARIS ([id number]) [facility] ([facility]) [address] [place] [address] 09-29-2024 07:57-0400 Body mass index (BMI) [Ratio] 21.62 kg/m2 Antonio Hodge MD Work Phone: [facility] 09-29-2024 07:57-0400 Body temperature 98.4 [degF] Antonio Hodge MD Work Phone: [facility] 09-29-2024 07:57-0400 Body weight 64.5 kg Antonio Hodge MD Work Phone: [facility] 07-10-2024 10:10-0400 Body height 172.7 cm Rajendra Alaina PA-C Work Phone: [facility] 07-10-2024 10:10-0400 Body mass index (BMI) [Ratio] 23.23 kg/m2 Rajendra [place] PA-C Work Phone: [facility] 07-10-2024 10:10-0400 Body weight 69.31 kg Rajendra Alaina PA-C Work Phone: [facility] 07-10-2024 10:10-0400 Diastolic blood pressure 74 mm[Hg] Rajendra [place] PA-C Work Phone: [facility] 07-10-2024 10:10-0400 Heart rate 60 /min Rajendra [place] PA-C Work Phone: [facility] 07-10-2024 10:10-0400 Systolic blood pressure 107 mm[Hg] Rajendra Alaina PA-C Work Phone: [facility] 07-04-2024 16:49-0400 Body height 172.7 cm Yesenia Wai OPTICAL SALES ASSOCIATE-CUSTOMER ENGINEER Work Phone: [facility] 07-04-2024 16:49-0400 Body mass index (BMI) [Ratio] 23.42 kg/m2 Yesenia Wai OPTICAL SALES ASSOCIATE-CUSTOMER ENGINEER Work Phone: [facility] 07-04-2024 16:49-0400 Body temperature 97.59 [degF] Yesenia Wai OPTICAL SALES ASSOCIATE-CUSTOMER ENGINEER Work Phone: [facility] 07-04-2024 16:49-0400 Body weight 69.85 kg Yesenia Wai OPTICAL SALES ASSOCIATE-CUSTOMER ENGINEER Work Phone: [facility] 07-04-2024 16:49-0400 Diastolic blood pressure 85 mm[Hg] Yesenia Malaveta OPTICAL SALES ASSOCIATE-CUSTOMER ENGINEER Work Phone: [facility] 07-04-2024 16:49-0400 Heart rate 67 /min Yesenia Wai OPTICAL SALES ASSOCIATE-CUSTOMER ENGINEER Work Phone: [facility] 07-04-2024 16:49-0400 Respiratory rate 18 /min Yesenia Wai OPTICAL SALES ASSOCIATE-CUSTOMER ENGINEER Work Phone: [facility] 07-04-2024 16:49-0400 SaO2% (BldA) [Mass fraction] 96 % Yesenia Wai OPTICAL SALES ASSOCIATE-CUSTOMER ENGINEER Work Phone: [facility] 07-04-2024 16:49-0400 Systolic blood pressure 123 mm[Hg] Yesenia Wai OPTICAL SALES ASSOCIATE-CUSTOMER ENGINEER Work Phone: [facility] 07-12-2023 10:26-0400 Body height 172.7 cm Emre Silverio MD Work Phone: [facility] 07-12-2023 10:26-0400 Body mass index (BMI) [Ratio] 22.5 kg/m2 Emre Silverio MD Work Phone: [facility] 07-12-2023 10:26-0400 Body weight 67.13 kg Emre Silverio MD Work Phone: [facility] 07-12-2023 10:26-0400 Diastolic blood pressure 90 mm[Hg] Emre Silverio MD Work Phone: [facility] 07-12-2023 10:26-0400 Heart rate 77 /min Emer Silverio MD Work Phone: [facility] 07-12-2023 10:26-0400 SaO2% (BldA) [Mass fraction] 95 % Emre Silverio MD Work Phone: [facility] 07-12-2023 10:26-0400 Systolic blood pressure 122 mm[Hg] Emre Silverio MD Work Phone: [facility] 07-04-2023 11:08-0400 Diastolic blood pressure 87 mm[Hg] Rajendrajuarez Longall PA-C Work Phone: [facility] 07-04-2023 11:08-0400 Systolic blood pressure 121 mm[Hg] Rajendra Alaina PA-C Work Phone: [facility] 07-04-2023 10:20-0400 Body height 172.7 cm Rajendra [place] PA-C Work Phone: [facility] 07-04-2023 10:20-0400 Body mass index (BMI) [Ratio] 23.45 kg/m2 Rajendrajuarez Longall PA-C Work Phone: [facility] 07-04-2023 10:20-0400 Body weight 69.94 kg Rajendra Alaina PA-C Work Phone: [facility] 07-04-2023 10:20-0400 Heart rate 81 /min Rajendrajuarez Longall PA-C Work Phone: [facility] 07-04-2023 10:20-0400 SaO2% (BldA) [Mass fraction] 90 % Rajendrajuarez Longall PA-C Work Phone: [facility] 06-26-2023 07:27-0400 Body temperature 97.7 [degF] Tanya Willis DO Work Phone: [facility] 06-26-2023 07:27-0400 Diastolic blood pressure 85 mm[Hg] Tanya Reddingan DO Work Phone: [facility] 06-26-2023 07:27-0400 Heart rate 79 /min Tanya Willis DO Work Phone: [facility] 06-26-2023 07:27-0400 Respiratory rate 19 /min Tanya Willis DO Work Phone: [facility] 06-26-2023 07:27-0400 SaO2% (BldA) [Mass fraction] 92 % Tanya Willis DO Work Phone: [facility] 06-26-2023 07:27-0400 Systolic blood pressure 122 mm[Hg] Tanya Willis DO Work Phone: [facility] 06-26-2023 06:31-0400 Body mass index (BMI) [Ratio] 23.46 kg/m2 Tanya Willis DO Work Phone: [facility] 06-26-2023 06:31-0400 Body weight 70 kg Tanya Willis DO Work Phone: [facility] 06-12-2023 22:52-0400 Body temperature 37.0 Tanya Willis DO Work Phone: [facility] 06-12-2023 08:23-0400 Body temperature 37.0 Tanya Willis DO Work Phone: [facility] 06-12-2023 02:15-0400 Body temperature 37.0 Tanya Willis DO Work Phone: [facility] 06-11-2023 14:24-0400 Body temperature 37.0 Tanya Willis DO Work Phone: [facility] 06-06-2023 19:46-0400 Body height 172.7 cm Tanya Willis DO Work Phone: [facility] 06-06-2023 16:00-0400 Diastolic blood pressure 88 mm[Hg] Josué Iglesias DO Work Phone: [facility] 06-06-2023 16:00-0400 Heart rate 69 /min Josué Iglesias DO Work Phone: [facility] 06-06-2023 16:00-0400 Respiratory rate 25 /min Josué Iglesias DO Work Phone: [facility] 06-06-2023 16:00-0400 Systolic blood pressure 110 mm[Hg] Josué Iglesias DO Work Phone: [facility] 06-06-2023 14:48-0400 Body temperature 98.2 [degF] Josué Iglesias DO Work Phone: [facility] 06-06-2023 14:48-0400 SaO2% (BldA) [Mass fraction] 96 % Josué Iglesias DO Work Phone: [facility] 06-05-2023 01:59-0400 Body height 172.7 cm Josué Iglesias DO Work Phone: [facility] 06-05-2023 01:59-0400 Body mass index (BMI) [Ratio] 27.09 kg/m2 Josué Iglesias DO Work Phone: [facility] 06-05-2023 01:59-0400 Body weight 80.8 kg Josué Iglesias DO Work Phone: [facility] 06-03-2023 05:32-0400 Diastolic blood pressure 80 mm[Hg] Juno Marquez DO Work Phone: [facility] 06-03-2023 05:32-0400 Heart rate 78 /min Juno Marquez DO Work Phone: [facility] 06-03-2023 05:32-0400 Respiratory rate 16 /min Juno Marquez DO Work Phone: [facility] 06-03-2023 05:32-0400 SaO2% (BldA) [Mass fraction] 96 % Juno Marquez DO Work Phone: [facility] 06-03-2023 05:32-0400 Systolic blood pressure 124 mm[Hg] Juno Marquez DO Work Phone: [facility] 06-03-2023 04:37-0400 Body height 172.7 cm Juno Marquez DO Work Phone: [facility] 06-03-2023 04:37-0400 Body mass index (BMI) [Ratio] 26.61 kg/m2 Juno Marquez DO Work Phone: [facility] 06-03-2023 04:37-0400 Body temperature 96.01 [degF] Juno Marquez DO Work Phone: [facility] 06-03-2023 04:37-0400 Body weight 79.38 kg Juno Marquez DO Work Phone: [facility] 05-01-2023 09:18-0500 Body height 172.7 cm Rashawn Carter MD Work Phone: [facility] 05-01-2023 09:18-0500 Body mass index (BMI) [Ratio] 27.58 kg/m2 Rashawn Carter MD Work Phone: [facility] 05-01-2023 09:18-0500 Body weight 82.28 kg Rashawn Carter MD Work Phone: [facility] 05-01-2023 09:18-0500 Diastolic blood pressure 68 mm[Hg] Rashawn Carter MD Work Phone: [facility] 05-01-2023 09:18-0500 Systolic blood pressure 120 mm[Hg] Rashawn Carter MD Work Phone: [facility] 04-26-2023 16:30-0500 Diastolic blood pressure 94 mm[Hg] Rajendra Foley PA-C Work Phone: [facility] 04-26-2023 16:30-0500 Heart rate 74 /min Rajendra Foley PA-C Work Phone: [facility] 04-26-2023 16:30-0500 Respiratory rate 18 /min Rajendra Foley PA-C Work Phone: [facility] 04-26-2023 16:30-0500 SaO2% (BldA) [Mass fraction] 95 % Rajendra Foley PA-C Work Phone: [facility] 04-26-2023 16:30-0500 Systolic blood pressure 107 mm[Hg] Rajendra Longall PA-C Work Phone: [facility] 04-26-2023 13:29-0500 Body height 172.7 cm Rajendra Longall PA-C Work Phone: [facility] 04-26-2023 13:29-0500 Body mass index (BMI) [Ratio] 26.15 kg/m2 Rajendra Longall PA-C Work Phone: [facility] 04-26-2023 13:29-0500 Body temperature 98.2 [degF] Rajendra Longall PA-C Work Phone: [facility] 04-26-2023 13:29-0500 Body weight 78.02 kg Rajendra Longall PA-C Work Phone: [facility] 04-19-2023 11:40-0500 Diastolic blood pressure 93 mm[Hg] Felicia Fascione DPM Work Phone: [facility] 04-19-2023 11:40-0500 Heart rate 68 /min Felicia Fascione DPM Work Phone: [facility] 04-19-2023 11:40-0500 Respiratory rate 18 /min Felicia Fascione DPM Work Phone: [facility] 04-19-2023 11:40-0500 SaO2% (BldA) [Mass fraction] 97 % Felicia Fascione DPM Work Phone: [facility] 04-19-2023 11:40-0500 Systolic blood pressure 116 mm[Hg] Felicia Fascione DPM Work Phone: [facility] 04-19-2023 10:30-0500 Body temperature 97 [degF] Felicia Fascione DPM Work Phone: [facility] 04-19-2023 08:54-0500 Body height 172.7 cm Felicia Fascione DPM Work Phone: [facility] 04-19-2023 08:54-0500 Body mass index (BMI) [Ratio] 25.74 kg/m2 Felicia Barbosa DPM Work Phone: [facility] 04-19-2023 08:54-0500 Body weight 76.8 kg Felicia Barbosa DPM Work Phone: [facility] 04-11-2023 10:54-0500 Body height 172.7 cm Rajendrajuarez Longall PA-C Work Phone: [facility] 04-11-2023 10:54-0500 Body mass index (BMI) [Ratio] 27.98 kg/m2 Rajendrajuarez Longall PA-C Work Phone: [facility] 04-11-2023 10:54-0500 Body weight 83.46 kg Rajendra Longall PA-C Work Phone: [facility] 04-11-2023 10:54-0500 Diastolic blood pressure 81 mm[Hg] Rajendrajuarez Longall PA-C Work Phone: [facility] 04-11-2023 10:54-0500 Heart rate 70 /min Rajendra Longall PA-C Work Phone: [facility] 04-11-2023 10:54-0500 Systolic blood pressure 109 mm[Hg] Rajendrajuarez Longall PA-C Work Phone: [facility] 04-09-2023 14:45-0500 Body temperature 97.7 [degF] Josué Iglesias DO Work Phone: [facility] 04-09-2023 14:45-0500 Heart rate 90 /min Josué Iglesias DO Work Phone: [facility] 04-09-2023 14:45-0500 Respiratory rate 20 /min Josué Iglesias DO Work Phone: [facility] 04-09-2023 14:45-0500 SaO2% (BldA) [Mass fraction] 91 % Josué Iglesias DO Work Phone: [facility] 04-09-2023 06:41-0500 Diastolic blood pressure 79 mm[Hg] Josué Iglesias DO Work Phone: [facility] 04-09-2023 06:41-0500 Systolic blood pressure 105 mm[Hg] Josué Iglesias DO Work Phone: [facility] 04-06-2023 13:31-0500 Body height 172.7 cm Josué Iglesias DO Work Phone: [facility] 04-06-2023 13:31-0500 Body mass index (BMI) [Ratio] 27.38 kg/m2 Josué Iglesias DO Work Phone: [facility] 04-06-2023 13:31-0500 Body weight 81.65 kg Josué Iglesias DO Work Phone: [facility] 04-05-2023 09:50-0500 Body height 172.7 cm Rajendrajuarez Longall PA-C Work Phone: [facility] 04-05-2023 09:50-0500 Body mass index (BMI) [Ratio] 27.22 kg/m2 Rajendra Alaina PA-C Work Phone: [facility] 04-05-2023 09:50-0500 Body weight 81.19 kg Rajendrajuarez Longall PA-C Work Phone: [facility] 04-05-2023 09:50-0500 Diastolic blood pressure 64 mm[Hg] Rajendra [place] PA-C Work Phone: [facility] 04-05-2023 09:50-0500 Heart rate 62 /min Rajendra Alaina PA-C Work Phone: [facility] 04-05-2023 09:50-0500 Systolic blood pressure 114 mm[Hg] Rajendra Alaina PA-C Work Phone: [facility] 01-18-2023 13:09-0500 Body height 172.[address] Pato Correa Work Phone: [facility] 01-18-2023 13:09-0500 Body mass index (BMI) [Ratio] 28 kg/m2 Dr. Pato Correa Work Phone: [facility] 01-18-2023 13:09-0500 Body temperature 97.9 [degF] Dr. Pato Correa Work Phone: [facility] 01-18-2023 13:09-0500 Body weight 83.[address] Pato Correa Work Phone: [facility] 01-18-2023 13:09-0500 Diastolic blood pressure 103 mm[Hg] Dr. Pato Correa Work Phone: [facility] 01-18-2023 13:09-0500 Heart rate 74 /min Dr. Pato Correa Work Phone: [facility] 01-18-2023 13:09-0500 Respiratory rate 14 /min Dr. Pato Correa Work Phone: [facility] 01-18-2023 13:09-0500 Systolic blood pressure 124 mm[Hg] Dr. Pato Correa Work Phone: [facility] 12-05-2022 15:45-0400 Body temperature 98.6 [degF] Fareed Tavallaee Other Phone: [facility] 12-05-2022 15:45-0400 Body weight 78 kg Fareed Tavallaee Other Phone: [facility] 12-05-2022 15:45-0400 Diastolic blood pressure 90 mm[Hg] Fareed Tavallaee Other Phone: [facility] 12-05-2022 15:45-0400 Heart rate 89 /min Fareed Tavallaee Other Phone: [facility] 12-05-2022 15:45-0400 Respiratory rate 16 /min Fareed Tavallaee Other Phone: [facility] 12-05-2022 15:45-0400 SaO2% (BldA) [Mass fraction] 99 % Fareed Tavallaee Other Phone: [facility] 12-05-2022 15:45-0400 Systolic blood pressure 144 mm[Hg] Fareed Tavallaee Other Phone: [facility] 11-23-2022 13:30-0400 Body height 172.7 cm Rajendrajuarez Longall PA-C Work Phone: [facility] 11-23-2022 13:30-0400 Body mass index (BMI) [Ratio] 26.91 kg/m2 Rajendrajuarez Longall PA-C Work Phone: [facility] 11-23-2022 13:30-0400 Body weight 80.29 kg Rajendra [place] PA-C Work Phone: [facility] 11-23-2022 13:30-0400 Diastolic blood pressure 88 mm[Hg] Rajendrajuarez CaroDes Moines PA-C Work Phone: [facility] 11-23-2022 13:30-0400 Heart rate 78 /min Rajendra [place] PA-C Work Phone: [facility] 11-23-2022 13:30-0400 Systolic blood pressure 126 mm[Hg] Rajendra [place] PA-C Work Phone: [facility] 11-23-2022 11:48-0400 Body mass index (BMI) [Ratio] 28.3 kg/m2 Dr. Pato Correa Work Phone: [facility] 11-23-2022 11:48-0400 Body temperature 97.1 [degF] Dr. Pato Correa Work Phone: [facility] 11-23-2022 11:48-0400 Diastolic blood pressure 100 mm[Hg] Dr. Pato Correa Work Phone: [facility] 11-23-2022 11:48-0400 Heart rate 74 /min Dr. Pato Correa Work Phone: [facility] 11-23-2022 11:48-0400 Respiratory rate 18 /min Dr. Pato Correa Work Phone: [facility] 11-23-2022 11:48-0400 Systolic blood pressure 130 mm[Hg] Dr. Pato Correa Work Phone: [facility] 11-10-2022 00:26-0400 Body weight 84.[address] Pato Correa Work Phone: [facility] 11-09-2022 10:15-0400 Body mass index (BMI) [Ratio] 28.3 kg/m2 Dr. Pato Correa Work Phone: [facility] 11-09-2022 10:15-0400 Body temperature 96.5 [degF] Dr. Pato Correa Work Phone: [facility] 11-09-2022 10:15-0400 Diastolic blood pressure 93 mm[Hg] Dr. Pato Correa Work Phone: [facility] 11-09-2022 10:15-0400 Heart rate 80 /min Dr. Pato Correa Work Phone: [facility] 11-09-2022 10:15-0400 Systolic blood pressure 123 mm[Hg] Dr. Pato Correa Work Phone: [facility] 11-01-2022 09:19-0400 Body height 172.72 cm Rajendra Foley Work Phone: [address] Work Phone: 11-01-2022 09:19-0400 Body mass index (BMI) [Ratio] 26.11 kg/m2 Rajendra Longall Work Phone: [place] [address] [address] Work Phone: 11-01-2022 09:19-0400 Body surface area Derived from formula 1.92 m2 Rajendra Longall Work Phone: [address] Work Phone: 11-01-2022 09:19-0400 Body weight 77.9 kg Rajendra Foley Work Phone: [address] Work Phone: 11-01-2022 09:19-0400 Diastolic blood pressure 82 mm[Hg] Rajendra Longall Work Phone: [address] Work Phone: 11-01-2022 09:19-0400 Systolic blood pressure 118 mm[Hg] Rajendra Longall Work Phone: [address] Work Phone: 10-24-2022 13:08-0400 Body height 172.72 cm Rajendra Foley Work Phone: [address] Work Phone: 10-24-2022 13:08-0400 Body mass index (BMI) [Ratio] 26.45 kg/m2 Rajendra Longall Work Phone: [address] Work Phone: 10-24-2022 13:08-0400 Body surface area Derived from formula 1.93 m2 Rajendra Longall Work Phone: [place] [address] Work Phone: 10-24-2022 13:08-0400 Body weight 78.9 kg Rajendra Foley Work Phone: [place] [address] [address] Work Phone: 10-24-2022 13:08-0400 Diastolic blood pressure 74 mm[Hg] Rajendra Foley Work Phone: [place] [address] [address] Work Phone: 10-24-2022 13:08-0400 Systolic blood pressure 112 mm[Hg] Rajendra Singletary Alaina Work Phone: [place] [address] [address] Work Phone: 10-12-2022 08:58-0400 Body height 172.[address] Pato Correa Work Phone: [facility] 10-12-2022 08:58-0400 Body weight 84.[address] Pato Correa Work Phone: [facility] 10-12-2022 08:58-0400 Respiratory rate 16 /min Dr. Pato Correa Work Phone: [facility] 10-01-2022 13:30-0400 Diastolic blood pressure 95 mm[Hg] Fareed Tavallaee Other Phone: [facility] 10-01-2022 13:30-0400 Heart rate 78 /min Fareed Tavallaee Other Phone: [facility] 10-01-2022 13:30-0400 Respiratory rate 16 /min Fareed Tavallaee Other Phone: [facility] 10-01-2022 13:30-0400 SaO2% (BldA) [Mass fraction] 96 % Fareed Tavallaee Other Phone: [facility] 10-01-2022 13:30-0400 Systolic blood pressure 119 mm[Hg] Fareed Tavallaee Other Phone: [facility] 10-01-2022 12:20-0400 Body height 172.7 cm Fareed Tavallaee Other Phone: [facility] 10-01-2022 12:20-0400 Body temperature 96.98 [degF] Fareed Tavallaee Other Phone: [facility] 10-01-2022 12:20-0400 Body weight 82 kg Fareed Tavallaee Other Phone: [facility] 09-22-2022 19:05-0400 Body height 173 cm Fareed Tavallaee Other Phone: [facility] 09-22-2022 19:05-0400 Body temperature 98.06 [degF] Fareed Tavallaee Other Phone: [facility] 09-22-2022 19:05-0400 Diastolic blood pressure 101 mm[Hg] Fareed Tavallaee Other Phone: [facility] 09-22-2022 19:05-0400 Heart rate 68 /min Fareed Tavallaee Other Phone: [facility] 09-22-2022 19:05-0400 Respiratory rate 16 /min Fareed Tavallaee Other Phone: [facility] 09-22-2022 19:05-0400 SaO2% (BldA) [Mass fraction] 95 % Fareed Tavallaee Other Phone: [facility] 09-22-2022 19:05-0400 Systolic blood pressure 139 mm[Hg] Fareed Tavallaee Other Phone: [facility] 06-16-2022 08:46-0400 Body height 172.72 cm Rajendra Caroenhall Work Phone: [address] Work Phone: 06-16-2022 08:46-0400 Body mass index (BMI) [Ratio] 29.1 kg/m2 Rajendra Longall Work Phone: [place] [address] [address] Work Phone: 06-16-2022 08:46-0400 Body surface area Derived from formula 2.01 m2 Rajendra Longall Work Phone: [place] [address] [address] Work Phone: 06-16-2022 08:46-0400 Body weight 86.81 kg Rajendra Longall Work Phone: [place] [address] [address] Work Phone: 06-16-2022 08:46-0400 Diastolic blood pressure 90 mm[Hg] Rajendra Longall Work Phone: [place] [address] [address] Work Phone: 06-16-2022 08:46-0400 Systolic blood pressure 120 mm[Hg] Rajendra Longall Work Phone: [place] [address] [address] Work Phone: 06-02-2022 09:01-0400 Body height 172.72 cm Rajendra Longall Work Phone: [place] [address] [address] Work Phone: 06-02-2022 09:01-0400 Body mass index (BMI) [Ratio] 28.49 kg/m2 Rajendra Caroenhall Work Phone: [place] [address] [address] Work Phone: 06-02-2022 09:01-0400 Body surface area Derived from formula 1.99 m2 Rajendra Longall Work Phone: [place] [address] [address] Work Phone: 06-02-2022 09:01-0400 Body weight 85 kg Rajendra Longall Work Phone: [place] [address] [address] Work Phone: 06-02-2022 09:01-0400 Diastolic blood pressure 72 mm[Hg] Rajendra Hayder [place] Work Phone: [place] [address] [address] Work Phone: 06-02-2022 09:01-0400 Systolic blood pressure 112 mm[Hg] Rajendra Hayder [place] Work Phone: [place] [address] [address] Work Phone: 04-18-2022 09:24-0500 Body height 172.72 cm Rajendra Hayder [place] Work Phone: [place] [address] [address] Work Phone: 04-18-2022 09:24-0500 Body mass index (BMI) [Ratio] 28.64 kg/m2 Rajendra Hayder [place] Work Phone: [address] Work Phone: 04-18-2022 09:24-0500 Body surface area Derived from formula 1.99 m2 Rajendra Hayder [place] Work Phone: [place] [address] [address] Work Phone: 04-18-2022 09:24-0500 Body weight 85.45 kg Rajendra Hayder Alaina Work Phone: [place] [address] [address] Work Phone: 04-18-2022 09:24-0500 Diastolic blood pressure 82 mm[Hg] Rajendra Hayder [place] Work Phone: [place] [address] [address] Work Phone: 04-18-2022 09:24-0500 Systolic blood pressure 118 mm[Hg] Rajendra Singletary [place] Work Phone: [place] [address] [address] Work Phone: 01-13-2022 10:45-0400 Body height 172.72 cm Rajendra Foley Work Phone: [place] [address] [address] Work Phone: 01-13-2022 10:45-0400 Body mass index (BMI) [Ratio] 28.89 kg/m2 Rajendra Foley Work Phone: [place] [address] [address] Work Phone: 01-13-2022 10:45-0400 Body surface area Derived from formula 2 m2 Rajendra Foley Work Phone: [place] [address] [address] Work Phone: 01-13-2022 10:45-0400 Body weight 86.18 kg Rajendra Foley Work Phone: [place] [address] [address] Work Phone: 01-13-2022 10:45-0400 Diastolic blood pressure 76 mm[Hg] Rajendra Foley Work Phone: [place] [address] [address] Work Phone: 01-13-2022 10:45-0400 Heart rate 70 /min Rajendra Foley Work Phone: [place] [address] [address] Work Phone: 01-13-2022 10:45-0400 Systolic blood pressure 118 mm[Hg] Rajendra Foley Work Phone: [place] [address] [address] Work Phone: 01-13-2022 08:24-0400 Body height 172.72 cm Rajendra Foley Work Phone: [facility] [address] Work Phone: 01-13-2022 08:24-0400 Body mass index (BMI) [Ratio] 28.97 kg/m2 Rajendra Foley Work Phone: [place] [address] [address] Work Phone: 01-13-2022 08:24-0400 Body surface area Derived from formula 2 m2 Rajendra Longall Work Phone: [place] [address] [address] Work Phone: 01-13-2022 08:24-0400 Body weight 86.41 kg Rajendra Longall Work Phone: [place] [address] [address] Work Phone: 01-13-2022 08:24-0400 Diastolic blood pressure 82 mm[Hg] Rajendra Caroenhall Work Phone: [place] [address] [address] Work Phone: 01-13-2022 08:24-0400 Systolic blood pressure 120 mm[Hg] Rajendra Caroenhall Work Phone: [facility] [place] [address] [address] Work Phone: 12-07-2021 11:08-0400 Body height 172.72 cm Rajendra Longall Work Phone: [place] [address] [address] Work Phone: 12-07-2021 11:08-0400 Body mass index (BMI) [Ratio] 30 kg/m2 Rajendra Longall Work Phone: [employer] [place] [address] [address] Work Phone: 12-07-2021 11:08-0400 Body surface area Derived from formula 2.03 m2 Rajendra Longall Work Phone: [place] [address] [address] Work Phone: 12-07-2021 11:08-0400 Body weight 89.5 kg Rajendra Longall Work Phone: [place] [address] [address] Work Phone: 12-07-2021 11:08-0400 Diastolic blood pressure 72 mm[Hg] Rajendra Caroenhall Work Phone: [facility] [address] Work Phone: 12-07-2021 11:08-0400 Systolic blood pressure 112 mm[Hg] Rajendra Hayder [place] Work Phone: [address] Work Phone: 11-29-2021 09:05-0400 Body height 172.72 cm Rajendra Hayder [place] Work Phone: [address] Work Phone: 11-29-2021 09:05-0400 Body mass index (BMI) [Ratio] 29.86 kg/m2 Rajendra Hayder [place] Work Phone: [address] Work Phone: 11-29-2021 09:05-0400 Body surface area Derived from formula 2.03 m2 Rajendra Hayder [place] Work Phone: [address] Work Phone: 11-29-2021 09:05-0400 Body weight 89.08 kg Rajendra Longall Work Phone: [address] Work Phone: 11-29-2021 09:05-0400 Diastolic blood pressure 70 mm[Hg] Rajendra Hayder [place] Work Phone: [address] Work Phone: 11-29-2021 09:05-0400 Systolic blood pressure 110 mm[Hg] Rajendra Hayder [place] Work Phone: [address] Work Phone: 04-20-2021 08:39-0500 Body height 172.72 cm Rajendra Hayder CaroAlaina Work Phone: [facility] Work Phone: 04-20-2021 08:39-0500 Body mass index (BMI) [Ratio] 31.32 kg/m2 Rajendra B Alaina Work Phone: [facility] Work Phone: 04-20-2021 08:39-0500 Body surface area Derived from formula 2.07 m2 Rajendra Foley Work Phone: [facility] Work Phone: 04-20-2021 08:39-0500 Body weight 93.44 kg Rajendra Foley Work Phone: [facility] Work Phone: 04-20-2021 08:39-0500 Diastolic blood pressure 78 mm[Hg] Rajendra Foley Work Phone: [facility] Work Phone: 04-20-2021 08:39-0500 Heart rate 72 /min Rajendra Foley Work Phone: [facility] Work Phone: 04-20-2021 08:39-0500 Systolic blood pressure 110 mm[Hg] Rajendra Foley Work Phone: [facility] Work Phone: 03-21-2021 08:44-0500 Body height 172.72 cm Rajendra Foley Work Phone: [place] [address] [address] Work Phone: 03-21-2021 08:44-0500 Body mass index (BMI) [Ratio] 32.08 kg/m2 Rajendra Foley Work Phone: [place] [address] [address] Work Phone: 03-21-2021 08:44-0500 Body surface area Derived from formula 2.09 m2 Rajendra Foley Work Phone: [place] [address] [address] Work Phone: 03-21-2021 08:44-0500 Body temperature 96.9 [degF] Rajendra Foley Work Phone: [address] Work Phone: 03-21-2021 08:44-0500 Body weight 95.7 kg Rajendra Foley Work Phone: [address] Work Phone: 03-21-2021 08:44-0500 Diastolic blood pressure 80 mm[Hg] Rajendra Foley Work Phone: [address] Work Phone: 03-21-2021 08:44-0500 Systolic blood pressure 104 mm[Hg] Rajendra Foley Work Phone: [address] Work Phone: 09-28-2020 09:44-0400 Body height 172.72 cm Rajendra Foley Work Phone: [facility] Work Phone: 09-28-2020 09:44-0400 Body mass index (BMI) [Ratio] 33.76 kg/m2 Rajendra Foley Work Phone: [facility] Work Phone: 09-28-2020 09:44-0400 Body surface area Derived from formula 2.14 m2 Rajendra Foley Work Phone: [facility] Work Phone: 09-28-2020 09:44-0400 Body weight 100.7 kg Rajendra Foley Work Phone: [facility] Work Phone: 09-28-2020 09:44-0400 Diastolic blood pressure 81 mm[Hg] Rajendra Foley Work Phone: [facility] Work Phone: 09-28-2020 09:44-0400 Heart rate 73 /min Rajendrajuarez Foley Work Phone: [facility] Work Phone: 09-28-2020 09:44-0400 Systolic blood pressure 107 mm[Hg] Rajendra Foley Work Phone: [facility] Work Phone: 08-25-2019 10:30-0400 BMI (Body Mass Index) 32.84 kg/m2 Rajendra Foley [facility] Work Phone: 08-25-2019 10:30-0400 Body weight 97.98 kg Rajendra Foley [facility] Work Phone: 08-25-2019 10:30-0400 BP Diastolic 78 mm[Hg] Rajendra Foley [facility] Work Phone: 08-25-2019 10:30-0400 BP Systolic 110 mm[Hg] Rajendra Foley [facility] Work Phone: 08-25-2019 10:30-0400 BSA (Body Surface Area) 2.11 m2 Rajendra Foley [facility] Work Phone: 08-25-2019 10:30-0400 Height 172.72 cm Rajendra Foley [facility] Work Phone: 08-25-2019 10:30-0400 Pulse (Heart Rate) 68 /min Rajendra Foley [facility] Work Phone: Encounters Encounter Date Encounter Type Care Provider Facility Start: 09-29-2024 End: 09-29-2024 ambulatory ANTONIO HODGE [facility] Start: 09-29-2024 End: 09-29-2024 Subsequent hospital visit by physician Liang Pruitt [employer] [facility] Start: 09-29-2024 End: 09-29-2024 ambulatory ANTONIO HODGE [facility] Start: 09-29-2024 End: 09-29-2024 Subsequent hospital visit by physician Antonio Hodge MD Work Phone: [facility] Comment on above: Pulmonary hypertensi on (Multi) (Primary Dx) Start: 09-22-2024 End: 09-22-2024 Office outpatient visit 15 minutes Greyson Schumacher DO Work Phone: [facility] Comment on above: PAH (pulmonary arter ial hypertension) with portal hypertension (Multi) (Primary Dx); CREST syndrome (Multi); Long-term use of high-risk medication Start: 09-22-2024 End: 09-22-2024 ambulatory [facility] Start: 09-18-2024 End: 09-18-2024 Subsequent hospital visit by physician [facility] Micheal [facility] Comment on above: Pulmonary hypertensi on (Multi); CREST syndrome (Multi); SOB (shortness of breath) Start: 09-18-2024 End: 09-18-2024 ambulatory COLUMBIA Esperanza [facility] Start: 08-14-2024 End: 08-14-2024 ambulatory RAJENDRA [facility] Start: 07-30-2024 End: 07-30-2024 ambulatory [facility] Start: 07-14-2024 End: 07-14-2024 ambulatory [facility] Start: 07-10-2024 End: 07-10-2024 Office outpatient visit 25 minutes Rajendra Foley PA-C Work Phone: [facility] Comment on above: Decreased finger str ength (Primary Dx); Low HDL (under 40); Raynaud's disease without gangrene; Pulmonary hypertension (Multi); Hypertension associated with diabetes; Seasonal allergies; Controlled type 2 diabetes mellitus with hyperglycemia, without long-term current use of insulin; Chronic renal impairment, stage 3a (Multi) Start: 07-10-2024 End: 07-10-2024 ambulatory [facility] Start: 07-04-2024 End: 07-04-2024 Patient encounter procedure Yesenia Wilde APRN-CUSTOMER ENGINEER Work Phone: [facility] Comment on above: Dental infection (Pr imary Dx) Start: 07-04-2024 End: 07-04-2024 ambulatory RAJENDRA Hayder FOLEY [facility] Start: 05-27-2024 End: 05-27-2024 Office outpatient visit 15 minutes Greyson Schumacher DO Work Phone: [facility] Comment on above: Pulmonary hypertensi on (Multi) (Primary Dx); Long-term use of high-risk medication Start: 05-27-2024 End: 05-27-2024 ambulatory [facility] Start: 05-12-2024 End: 05-12-2024 Office outpatient new 45 minutes Rocio Arroyo MD Work Phone: [facility] Comment on above: Pulmonary hypertensi on (Multi); Right ventricular dysfunction; Severe tricuspid regurgitation by prior echocardiogram Start: 05-12-2024 End: 05-12-2024 [address]IO [address]O [facility] Start: 04-23-2024 End: 04-23-2024 Office outpatient visit 25 minutes Greyson Schumacher DO Work Phone: [facility] Comment on above: Pulmonary hypertensi on (Multi); CREST syndrome (Multi); At risk for complication; Long-term use of high-risk medication Start: 04-23-2024 End: 04-23-2024 ambulatory [facility] Start: 04-21-2024 End: 04-21-2024 ambulatory [facility] Start: 04-21-2024 End: 04-21-2024 Subsequent hospital visit by physician Liang [facility] Room [facility] Comment on above: Pulmonary hypertensi on (Multi) Start: 02-18-2024 End: 02-18-2024 Office outpatient visit 25 minutes Greyson Schumacher DO Work Phone: [facility] Comment on above: Pulmonary hypertensi on (Multi); At risk for complication; CREST syndrome (Multi); Long-term use of high-risk medication Start: 02-18-2024 End: 02-18-2024 ambulatory [facility] Start: 02-12-2024 End: 02-12-2024 Subsequent hospital visit by physician Liang de guzman [facility] Comment on above: Pulmonary hypertensi on (Multi) Start: 02-12-2024 End: 02-12-2024 ambulatory [facility] Start: 02-05-2024 End: 02-05-2024 Subsequent hospital visit by physician Liang Holland 2 [facility] Comment on above: Pulmonary hypertensi on (Multi); SOB (shortness of breath) Start: 02-05-2024 End: 02-05-2024 ambulatory [facility] Start: 11-30-2023 ambulatory AUSTIN SANDERS II [facility] Start: 11-07-2023 [facility] Start: 09-11-2023 ambulatory Ayesha Pack [facility] Start: 07-12-2023 End: 07-12-2023 Office outpatient new 60 minutes Emre Silverio MD Work Phone: [facility] Comment on above: Pulmonary HTN (Multi ) (Primary Dx); Right ventricular dysfunction Start: 07-04-2023 End: 07-04-2023 Transitional care manage srvc 14 day discharge Rajendra Foley PA-C Work Phone: [facility] Comment on above: Hospital discharge f ollow-up (Primary Dx); CREST (calcinosis, Raynaud's phenomenon, esophageal dysfunction, sclerodactyly, telangiectasia) (Multi); Pulmonary HTN (Multi); Severe tricuspid regurgitation by prior echocardiogram; Pulmonary hypertension (Multi); Hypertension associated with diabetes (Multi); Controlled type 2 diabetes mellitus with hyperglycemia, without long-term current use of insulin (Multi); Gastroesophageal reflux disease without esophagitis; Non-healing wound of lower extremity, left, subsequent encounter Start: 06-06-2023 End: 06-26-2023 Evaluation and management of inpatient Aria T Omero DO Work Phone: [facility] Start: 06-04-2023 End: 06-06-2023 Evaluation and management of inpatient Josué Iglesias DO Work Phone: [facility] Comment on above: Cellulitis (Primary Dx); Localized edema; Severe tricuspid regurgitation by prior echocardiogram; Pulmonary hypertension (CMS/HCC); Difficulty walking Start: 06-03-2023 End: 06-03-2023 Emergency department patient visit Juno Duncan Marquez DO Work Phone: [facility] Emergency Medicine Comment on above: Cellulitis of left l eg (Primary Dx) Start: 05-22-2023 End: 05-22-2023 ambulatory [facility] Facility:[facility] Start: 05-01-2023 End: 05-01-2023 Office outpatient visit 15 minutes Rashawn Carter MD Work Phone: [facility] Comment on above: Left ovarian cyst (P rimary Dx) Start: 04-26-2023 End: 04-26-2023 Emergency department patient visit Rajendra Foley PA-C Work Phone: [facility] Comment on above: Leg wound, left, sub sequent encounter (Primary Dx) Start: 04-24-2023 End: 04-24-2023 Subsequent hospital visit by physician Liang Bryant 2 [facility] Comment on above: Personal history of other diseases of the female genital tract Start: 04-19-2023 End: 04-19-2023 Subsequent hospital visit by physician Felicia Barbosa DPM Work Phone: [facility] [place] Comment on above: 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) (Primary Dx); Severe tricuspid regurgitation by prior echocardiogram; Pulmonary hypertension (CMS/HCC); Elevated ferritin; History of ovarian cyst; Overweight (BMI 25.0-29.9); Elevated red blood cell count; Vaginal lesion; Amenorrhea; Seasonal allergies; Sacroiliac joint dysfunction of left side; Pain of left lower extremity; Ovarian cyst, complex; Low serum HDL; Lesion of left ovary; Leg edema; Hypertriglyceridemia; Controlled type 2 diabetes mellitus with hyperglycemia, without long-term current use of insulin (CMS/HCC); ELIZABETH (generalized anxiety disorder); Hypertension associated with diabetes (CMS/HCC); Dysplasia of cervix, low grade (HENRIETTA 1); Cervix dysplasia; Abnormal uterine bleeding (AUB); Non-healing wound of lower extremity, left, subsequent encounter Start: 04-18-2023 End: 04-18-2023 Subsequent hospital visit by physician Liang Gonzalez 1 [facility] Comment on above: Venous insufficiency (chronic) (peripheral); Pain in left leg Start: 04-11-2023 End: 04-11-2023 Transitional care manage srvc 14 day discharge Rajendra Foley PA-C Work Phone: [facility] Medicine Comment on above: Hospital discharge f ollow-up (Primary Dx); Hypertension associated with diabetes (CMS/HCC); Raynaud's disease without gangrene; Controlled type 2 diabetes mellitus with hyperglycemia, without long-term current use of insulin (CMS/HCC); Overweight (BMI 25.0-29.9); Non-healing wound of lower extremity, left, subsequent encounter; Ulcer of finger, unspecified ulcer stage (CMS/HCC); Pulmonary hypertension (CMS/HCC); Severe tricuspid regurgitation by prior echocardiogram Start: 04-06-2023 End: 04-09-2023 Emergency department patient visit Josué Iglesias DO Work Phone: [facility] 3 Comment on above: Ulcer of left lower extremity, unspecified ulcer stage (CMS/HCC) (Primary Dx); Cellulitis of left lower extremity; Other specified peripheral vascular diseases (CMS/HCC); Murmur; Ulcer of finger, unspecified ulcer stage (CMS/HCC); Peripheral vascular disease, unspecified (CMS/HCC) Start: 04-05-2023 End: 04-05-2023 Office outpatient visit 25 minutes Rajendra Foley PA-C Work Phone: [facility] Comment on above: Raynaud's disease wi thout gangrene (Primary Dx); Non-healing wound of upper extremity, right, subsequent encounter; Non-healing wound of lower extremity, left, subsequent encounter; Hypertension associated with diabetes (CMS/HCC); Controlled type 2 diabetes mellitus with hyperglycemia, without long-term current use of insulin (CMS/HCC); Overweight (BMI 25.0-29.9); Chronic renal impairment, stage 3a (CMS/HCC); Ulcer of finger, unspecified ulcer stage (CMS/HCC) Start: 01-23-2023 Encounter for saad l adult medical examination without abnormal findings Mary Crowe [facility] Start: 01-18-2023 End: 01-18-2023 Emergency department patient visit Dr. Pato Correa Work Phone: [facility] Work Phone: Start: 12-20-2022 ambulatory Pato Meredith ty:[facility] Start: 12-05-2022 End: 12-05-2022 Emergency department patient visit Juno Marquez [facility] Start: 11-23-2022 Non-patient / Non-visit Dr. John Correa Work Phone: [facility] Work Phone: Start: 11-23-2022 End: 11-23-2022 Office outpatient visit 25 minutes Rajendra Foley PA-C Work Phone: [facility] Comment on above: Hypertension associa romaine with diabetes (CMS/HCC) (Primary Dx); Controlled type 2 diabetes mellitus with hyperglycemia, without long-term current use of insulin (CMS/HCC); Elevated ferritin; Raynaud's disease without gangrene; Non-healing wound of lower extremity, left, subsequent encounter; Bilateral hand pain; Overweight (BMI 25.0-29.9); Chronic renal impairment, stage 3a (CMS/HCC); Non-healing wound of upper extremity, right, subsequent encounter Start: 11-23-2022 End: 12-09-[address] Pato Correa Work Phone: [facility] Work Phone: Start: 11-23-2022 End: 12-09-[address] Pato Correa Work Phone: [facility] Work Phone: Start: 11-16-2022 ambulatory Pato Meredith ty:[facility] Start: 11-16-2022 Non-patient / Non-visit Dr. John Correa Work Phone: [facility] Work Phone: Start: 11-09-2022 Non-patient / Non-visit Dr. John Correa Work Phone: [facility] Work Phone: Start: 11-09-2022 End: 11-09-[address] Pato Correa Work Phone: [facility] Work Phone: Start: 11-09-2022 End: 11-09-[address] Pato Correa Work Phone: [facility] Work Phone: Start: 11-01-2022 FUV, Provider: Rashawn Carter, Status: Pen, Time: 9:15 AM Rajendra Foley Work Phone: [facility] [address] Work Phone: Start: 11-01-2022 Office outpatient vi sit 15 minutes Rajendra Foley Work Phone: [facility] [address] Work Phone: Start: 2022 Chart Update Rajendra cisneros Work Phone: [facility] [address] Work Phone: Start: 10-26-2022 ambulatory Rashawn Carter Facility:9 509 Start: 10-24-2022 Office outpatient vi sit 15 minutes Rajendra Foley Work Phone: [facility] [address] Work Phone: Start: 10-12-2022 ambulatory WIL SNEED Facility:B Start: 10-12-2022 Non-patient / Non-visit Dr. John Correa Work Phone: [facility] Work Phone: Start: 10-01-2022 End: 10-01-2022 Emergency department patient visit Josué Iglesias [facility] Start: 09-22-2022 ambulatory Ms. Prasanna Nelson Facility:9509 Start: 09-22-2022 End: 09-22-2022 Emergency department patient visit Yesenia Wilde [facility] Start: 06-16-2022 FUV, Provider: Rashawn Carter, Status: Pen, Time: 8:45 AM Rajendra Foley Work Phone: [facility] [address] Work Phone: Start: 06-16-2022 Office outpatient vi sit 15 minutes Rajendra Caroenhall Work Phone: [facility] [address] Work Phone: Start: 06-14-2022 Chart Update Rajendra Huizar nhall Work Phone: [facility] [address] Work Phone: Start: 06-13-2022 FUV, Provider: Rashawn Carter, Status: Pen, Time: 8:45 AM Rajendra Caroenhall Work Phone: [facility] [address] Work Phone: Start: 06-12-2022 Chart Update Rajendra Huizar nhall Work Phone: [facility] [address] Work Phone: Start: 06-09-2022 FUV, Provider: Rashawn Carter, Status: Pen, Time: 8:30 AM Rajendra Lnogall Work Phone: [facility] [address] Work Phone: Start: 06-07-2022 Chart Update Rajendra cisneros Work Phone: [facility] [address] Work Phone: Start: 06-02-2022 Patient encounter procedure Rajendra Foley Work Phone: [facility] [address] Work Phone: Start: 04-21-2022 Chart Update Rajendra cisneros Work Phone: [facility] [address] Work Phone: Start: 04-19-2022 Chart Update Rajendra cisneros Work Phone: [facility] Work Phone: Start: 04-18-2022 Periodic preventive med est patient 18-39 yrs Rajendra Foley Work Phone: [facility] [facility] Work Phone: Start: 01-19-2022 FUV, Provider: Misty Sweeney, Status: Pen, Time: 8:20 AM Rajendra Foley Work Phone: [facility] Work Phone: Start: 01-17-2022 Chart Update Rajendra cisneros Work Phone: [facility] Work Phone: Start: 01-13-2022 ambulatory Ms. Rajendra Foley Facility:9509 Start: 01-13-2022 Office outpatient vi sit 15 minutes Rajendra Foley Work Phone: [facility] [address] [facility] Work Phone: Start: 01-12-2022 End: 01-12-2022 Emergency department patient visit RAJENDRA FOLEY [facility] Start: 01-09-2022 Chart Update Rajendra cisneros Work Phone: [facility] [address] Work Phone: Start: 01-06-2022 ambulatory Ms. Rajendra Foley Facility:9509 Start: 01-04-2022 End: 01-04-2022 Emergency department patient visit TUCKERANTONINO SMALLS [facility] Start: 12-19-2021 AUDIT Rajendra cisneros Work Phone: [facility] [address] Work Phone: Start: 11-29-2021 Office outpatient vi sit 25 minutes Rajendra Foley Work Phone: [facility] [address] Work Phone: Start: 10-19-2021 Chart Update Rajendra cisneros Work Phone: [facility] Work Phone: Start: 04-20-2021 Office outpatient vi sit 25 minutes Rajendra Foley Work Phone: [facility] Work Phone: Start: 04-04-2021 Chart Update Rajendra cisneros Work Phone: [facility] [address] Work Phone: Start: 03-25-2021 Chart Update Rajendra cisneros Work Phone: [facility] [address] Work Phone: Start: 12-27-2020 AUDIT Rajendra cisneros Work Phone: [facility] Work Phone: Start: 12-27-2020 Patient encounter procedure Rajendra Foley Work Phone: [facility] [address] Work Phone: Start: 09-29-2020 Patient encounter procedure Rajendra Foley Work Phone: [facility] [address] Work Phone: Start: 09-29-2020 RNVISIT, Provider: Raina DEMPSEY RN [id number], Status: Pen, Time: 9:00 AM Rajendra Foley Work Phone: [facility] Work Phone: Start: 09-28-2020 Office outpatient vi sit 25 minutes Rajendra Foley Work Phone: [facility] Work Phone: Start: 09-21-2020 Chart Update Rajendra cisneros Work Phone: [facility] Work Phone: Start: 08-25-2019 Patient encounter procedure Rajendra Foley [facility] Work Phone: Start: 08-06-2019 Patient encounter procedure Rajendra Foley [facility] Work Phone: Start: 06-25-2019 Patient encounter procedure Rajendra Foley [facility] Work Phone: Start: 05-13-2019 Patient encounter procedure Rajendra Foley [facility] Work Phone: Start: 02-18-2019 Patient encounter procedure Rajendra Foley [facility] Work Phone: Start: 12-25-2018 Patient encounter procedure Rajendra Foley [facility] Work Phone: Patient encounter procedure Rajendra Foley Work Phone: [facility] Work Phone: Procedures Date Procedure Procedure Detail Performing Clinician Start: 09-29-2024 Cardiac catheterizat ion study Antonio Hodge MD Work Phone: Start: 09-29-2024 Ecg routine ecg w/le ast 12 lds trcg only w/o i&r Antonio Hodge MD Work Phone: Start: 09-29-2024 Urine test visual color cmprsn meths Antonio Hodge MD Work Phone: Start: 09-29-2024 Basic metabolic pane l calcium total Melissa Esquivel OPTICAL SALES ASSOCIATE-CUSTOMER ENGINEER, DNP Work Phone: Start: 07-18-2024 Lipid 1996 panel - S marquis or Plasma [facility] Start: 02-05-2024 Echo tthrc r-t 2d w/ wom-mode compl spec&colr d Greyson Mata Endy DO Work Phone: Start: 07-03-2023 Microscopic observat ion [Identifier] in Cervix by Cyto stain [facility] 2 Start: 06-26-2023 Comprehensive metabo lic panel Jayson Tamayo MD Work Phone: Start: 06-25-2023 Ecg routine ecg w/le ast 12 lds trcg only w/o i&r Jayson Tamayo MD Work Phone: Start: 06-25-2023 Comprehensive metabo lic panel Jayson Tamayo MD Work Phone: Start: 06-24-2023 Radiologic exam ches t single view Benito Hector MD Work Phone: Start: 06-24-2023 Comprehensive metabo lic panel Jayson Tamayo MD Work Phone: Start: 06-24-2023 Radiologic exam abdo men 1 view Benito Hector MD Work Phone: Start: 06-23-2023 Comprehensive metabo lic panel Jayson Tamayo MD Work Phone: Start: 06-22-2023 Comprehensive metabo lic panel Jayson Tamayo MD Work Phone: Start: 06-21-2023 C-reactive protein Gomez jamarcus Ribeiro MD Work Phone: Start: 06-21-2023 Comprehensive metabo lic panel Jayson Tamayo MD Work Phone: Start: 06-20-2023 Comprehensive metabo lic panel Jayson Tamayo MD Work Phone: Start: 06-19-2023 Renal function panel Ri marisol Tamez MD Work Phone: Start: 06-19-2023 Radiologic examinati on foot 2 views Blake Tamez MD Work Phone: Start: 06-19-2023 Comprehensive metabo lic panel Jayson Tamayo MD Work Phone: Start: 06-18-2023 Renal function panel Lima Jimenes MD Work Phone: Start: 06-18-2023 WOUND OSTOMY NURSING CONSULT Isabella Jimenes MD Work Phone: Start: 06-18-2023 WOUND OSTOMY NURSING CONSULT Franklin Ribeiro MD Work Phone: Start: 06-18-2023 Comprehensive metabo lic panel Jayson Tamayo MD Work Phone: Start: 06-18-2023 Radiologic exam ches t single view Jayson Tamayo MD Work Phone: Start: 06-17-2023 Comprehensive metabo lic panel Jayson Tamayo MD Work Phone: Start: 06-17-2023 Glucose quantitative blood xcpt reagent strip Rhea Henning MD Work Phone: Start: 06-16-2023 Glucose quantitative blood xcpt reagent strip Rhea Henning MD Work Phone: Start: 06-16-2023 Glucose quantitative blood xcpt reagent strip Rhea Henning MD Work Phone: Start: 06-16-2023 Comprehensive metabo lic panel Jayson Tamayo MD Work Phone: Start: 06-16-2023 Glucose quantitative blood xcpt reagent strip Rhea Henning MD Work Phone: Start: 06-16-2023 Radiologic exam ches t single view Jayson Tamayo MD Work Phone: Start: 06-15-2023 Dup-scan xtr veins c omplete bilateral study Jayson Tamayo MD Work Phone: Start: 06-15-2023 End: 06-15-2023 Glucose quantitative blood xcpt reagent strip Rhea Henning MD Work Phone: Start: 06-15-2023 Glucose quantitative blood xcpt reagent strip Rhea Henning MD Work Phone: Start: 06-15-2023 Glucose quantitative blood xcpt reagent strip Rhea Henning MD Work Phone: Start: 06-15-2023 Radiologic exam ches t single view Jayson Tamayo MD Work Phone: Start: 06-14-2023 End: 06-15-2023 Comprehensive metabolic panel Jayson Tamayo MD Work Phone: Start: 06-14-2023 Guidance for placeme nt of tunneled catheter in Chest Pleura Sly Houser MD Work Phone: Start: 06-14-2023 ANTI PF4 AB WITH SER OTONIN RELEASE ASSAY REFLEX Justin Correa MD Work Phone: Start: 06-14-2023 Antibody identificat ion platelet antibodies Justin Correa MD Work Phone: Start: 06-14-2023 Radiologic exam ches t single view Jayson Tamayo MD Work Phone: Start: 06-14-2023 Comprehensive metabo lic panel Jayson Tamayo MD Work Phone: Start: 06-13-2023 Glucose quantitative blood xcpt reagent strip Rhea Henning MD Work Phone: Start: 06-13-2023 Glucose quantitative blood xcpt reagent strip Rhea Henning MD Work Phone: Start: 06-13-2023 Glucose quantitative blood xcpt reagent strip Rhea Henning MD Work Phone: Start: 06-13-2023 Glucose quantitative blood xcpt reagent strip Rhea Henning MD Work Phone: Start: 06-13-2023 Radiologic exam ches t single view Jayson Tamayo MD Work Phone: Start: 06-13-2023 Comprehensive metabo lic panel Jayson Tamayo MD Work Phone: Start: 06-12-2023 Chloride bld Tabatha quintanilla MD Work Phone: Start: 06-12-2023 Glucose quantitative blood xcpt reagent strip Rhea Henning MD Work Phone: Start: 06-12-2023 Glucose quantitative blood xcpt reagent strip Rhea Henning MD Work Phone: Start: 06-12-2023 End: 06-12-2023 Chloride constanza Henning MD Work Phone: Start: 06-12-2023 Radiologic exam ches t single view Jayson Tamayo MD Work Phone: Start: 06-12-2023 Comprehensive metabo lic panel Jayson Tamayo MD Work Phone: Start: 06-12-2023 Gases blood ph direc t jen xcpt pulse oximitry Johnny Guerrero DO Work Phone: Start: 06-11-2023 WOUND OSTOMY NURSING CONSULT Delphine Cain MD Work Phone: Start: 06-11-2023 Glucose quantitative blood xcpt reagent strip Rhea Henning MD Work Phone: Start: 06-11-2023 Chloride bld Hudson teran MD Work Phone: Start: 06-11-2023 Glucose quantitative blood xcpt reagent strip Rhea Henning MD Work Phone: Start: 06-11-2023 Radiologic exam ches t single view Hudson Green MD Work Phone: Start: 06-11-2023 Glucose quantitative blood xcpt reagent strip Rhea Henning MD Work Phone: Start: 06-11-2023 Chloride stephaniad Jayson botello MD Work Phone: Start: 06-10-2023 Gases blood ph direc t jen xcpt pulse oximitry Johnny Mata Schalula DO Work Phone: Start: 06-10-2023 Glucose quantitative blood xcpt reagent strip Tanya Willis DO Work Phone: Start: 06-10-2023 Ecg routine ecg w/le ast 12 lds trcg only w/o i&r Ramon Woodson MD Work Phone: Start: 06-10-2023 Glucose quantitative blood xcpt reagent strip Danialdontrell Damon Omero DO Work Phone: Start: 06-10-2023 Radiologic exam abdo men 1 view Ramon Woodson MD Work Phone: Start: 06-10-2023 Glucose quantitative blood xcpt reagent strip Danialdontrell Willis DO Work Phone: Start: 06-10-2023 End: 06-10-2023 Comprehensive metabolic panel Jayson Tamayo MD Work Phone: Start: 06-09-2023 Gases blood ph direc t jen xcpt pulse oximitry Johnny J Schaper DO Work Phone: Start: 06-09-2023 Glucose quantitative blood xcpt reagent strip Tanya Willis DO Work Phone: Start: 06-09-2023 Gases blood ph direc t jen xcpt pulse oximitry Danialdontrell Willis DO Work Phone: Start: 06-09-2023 Radiologic exam ches t single view Johnny Esperanza Schalula DO Work Phone: Start: 06-09-2023 Glucose quantitative blood xcpt reagent strip Daniala Macho Reddingan DO Work Phone: Start: 06-09-2023 Smr prim src gram/gi emsa stain bct fungi/cell Hudson Green MD Work Phone: Start: 06-09-2023 Glucose quantitative blood xcpt reagent strip Aria T Omero DO Work Phone: Start: 06-09-2023 Radiologic exam ches t single view Johnnymarc Guerrero DO Work Phone: Start: 06-09-2023 Chloride bld Hudson teran MD Work Phone: Start: 06-09-2023 Drug screen quantita tive vancomycin Ramon Woodson MD Work Phone: Start: 06-08-2023 Cardiac catheterizat ion study Tanya Willis DO Work Phone: Start: 06-08-2023 Radiologic exam ches t single view Ramon Woodson MD Work Phone: Start: 06-08-2023 Radiologic exam ches t single view Hudson Green MD Work Phone: Start: 06-08-2023 Glucose quantitative blood xcpt reagent strip Tanya Willis DO Work Phone: Start: 06-08-2023 Glucose quantitative blood xcpt reagent strip Tanya Willis DO Work Phone: Start: 06-08-2023 Gases blood ph direc t jen xcpt pulse oximitry Delphine Cain MD Work Phone: Start: 06-08-2023 Assay of phosphorus inorganic Delphine Cain MD Work Phone: Start: 06-08-2023 Drug screen quantita tive vancomycin Ramon Woodson MD Work Phone: Start: 06-07-2023 Glucose quantitative blood xcpt reagent strip Tanya Willis DO Work Phone: Start: 06-07-2023 Glucose quantitative blood xcpt reagent strip Tanya Willis DO Work Phone: Start: 06-07-2023 Us abdominal real ti me w/image limited Johnny J Schalula DO Work Phone: Start: 06-07-2023 Cardiac catheterizat ion study Daniel Pink MD Work Phone: Start: 06-07-2023 Rp loclzj skip spect 1 area single day imaging Hudson Green MD Work Phone: Start: 06-07-2023 WOUND OSTOMY NURSING CONSULT Danialdontrell Willis DO Work Phone: Start: 06-07-2023 Comprehensive metabo lic panel Delphine Cain MD Work Phone: Start: 06-07-2023 Drug screen quantita tive vancomycin Ramon Woodson MD Work Phone: Start: 06-07-2023 End: 06-07-2023 Assay of osmolality urine Delphine Cain MD Work Phone: Start: 06-07-2023 Urinalysis microscop ic panel - Urine Qualitative by Automated Delphine Cain MD Work Phone: Start: 06-07-2023 Urnls dip stick/tabl et reagent auto microscopy Delphine Cain MD Work Phone: Start: 06-07-2023 Dna antibody [place]-apache/ double stranded eDlphine Cain MD Work Phone: Start: 06-07-2023 Ct abdomen & pelvis w/contrast material Delphine Cain MD Work Phone: Start: 06-07-2023 Ct angiography chest w/contrast/noncontrast Delphine Cain MD Work Phone: Start: 06-06-2023 WOUND OSTOMY NURSING CONSULT Delphine Cain MD Work Phone: Start: 06-06-2023 End: 06-06-2023 Cul prsmptv pthgnc organism scrn w/colony estimj Delphine Cain MD Work Phone: Start: 06-06-2023 Influenza virus A an d B and SARS-CoV-2 (COVID-19) identified in Respiratory specimen by LEX with probe detection Delphine Cain MD Work Phone: Start: 06-06-2023 Radiologic exam ches t single view Delphine Cain MD Work Phone: Start: 06-06-2023 End: 06-06-2023 Chloride bld Aria T Omero DO Work Phone: Start: 06-06-2023 Rheumatoid factor quantitative Delphine Cain MD Work Phone: Start: 06-06-2023 Mri lower extrem oth /thn jt w/o contr matrl Jania CURIEL-C Work Phone: Start: 06-06-2023 Drug tst prsmv instr mnt chem analyzers pr date Jania CURIEL-C Work Phone: Start: 06-06-2023 Echo tthrc r-t 2d w/ wom-mode compl spec&colr d Melissa Esquivel OPTICAL SALES ASSOCIATE-CUSTOMER ENGINEER, DNP Work Phone: Start: 06-06-2023 Radex hand 2 views Sangeeta CURIEL-C Work Phone: Start: 06-06-2023 C-reactive protein Sangeeta Winslow PA-C Work Phone: Start: 06-06-2023 Hemoglobin glycosylated a1c Jania CURIEL-C Work Phone: Start: 06-06-2023 Comprehensive metabo lic panel Nagi Doherty MD Work Phone: Start: 06-06-2023 Drug screen quantita tive vancomycin Letha Layton MD Work Phone: Start: 06-05-2023 Radex foot complete minimum 3 views Felicia Barbosa DPM Work Phone: Start: 06-05-2023 Dup-scan xtr veins unilateral/limited study Letha Layton MD Work Phone: Start: 06-04-2023 Ct lower extremity w/contrast material Josué Iglesias DO Work Phone: Start: 06-04-2023 Urinalysis complete W Reflex Culture panel - Urine Josué Iglesias DO Work Phone: Start: 06-04-2023 End: 06-04-2023 Culture bacterial blood aerobic w/id isolates Josué Valera Jean Carlos DO Work Phone: Start: 06-04-2023 End: 06-04-2023 Comprehensive metabolic panel Josué Iglesias DO Work Phone: Start: 04-26-2023 C-reactive protein Radha Bach PA-C Work Phone: Start: 04-26-2023 Comprehensive metabo lic panel Ellen Bach PA-C Work Phone: Start: 04-26-2023 Radiologic examinati on tibia & fibula 2 views Ellen Bach PA-C Work Phone: Start: 04-24-2023 Us transvaginal Rashawn Carter MD Work Phone: Start: 04-19-2023 Urine test visual color cmprsn meths Akil Sevilla MD Work Phone: Start: 04-18-2023 Dup-scan xtr veins unilateral/limited study Felicia Barbosa DPM Work Phone: Start: 04-09-2023 Dup-scan uxtr art/ar tl bpgs compl bi study Melissa Esquivel OPTICAL SALES ASSOCIATE-CUSTOMER ENGINEER, DNP Work Phone: Start: 04-09-2023 Non-invasive physiol ogic study extremity 3 levls Felicia Barbosa DPM Work Phone: Start: 04-09-2023 Echo tthrc r-t 2d w/ wom-mode compl spec&colr d Taylor Gibson OPTICAL SALES ASSOCIATE-CUSTOMER ENGINEER Work Phone: Start: 04-09-2023 Basic metabolic pane l calcium total Taylor Gibson OPTICAL SALES ASSOCIATE-CUSTOMER ENGINEER Work Phone: Start: 04-08-2023 Basic metabolic pane l calcium total Viri Tamayo OPTICAL SALES ASSOCIATE-CUSTOMER ENGINEER Work Phone: Start: 04-07-2023 Radiologic examinati on tibia & fibula 2 views Felicia Barbosa DPM Work Phone: Start: 04-07-2023 Basic metabolic pane l calcium total Kylee Yap OPTICAL SALES ASSOCIATE-CUSTOMER ENGINEER Work Phone: Start: 04-07-2023 Drug screen quantita tive vancomycin Kylee Jon Schwlonny OPTICAL SALES ASSOCIATE-CUSTOMER ENGINEER Work Phone: Start: 04-06-2023 Ct lower extremity w/contrast material Josué Iglesias DO Work Phone: Start: 04-06-2023 End: 04-06-2023 Culture bacterial blood aerobic w/id isolates Josué Valera Lemtanya DO Work Phone: Start: 04-06-2023 EXTRA TUBES Josué Iglesias DO Work Phone: Start: 04-06-2023 SST TOP Josué Iglesias DO Work Phone: Start: 04-06-2023 C-reactive protein Came scott Iglesias DO Work Phone: Start: 04-06-2023 Comprehensive metabo lic panel Josué Iglesias DO Work Phone: Start: 11-09-[address] Pato Correa Work Phone: Start: 11-09-2022 Investigation of tra nsfusion reaction Dr. Pato Correa Work Phone: Start: 11-09-2022 Microbial culture, routine Dr. Pato Correa Work Phone: Start: 07-20-2022 Lipid 1996 panel - S marquis or Plasma Rajendra Foley PA-C Work Phone: Start: 04-18-2022 Microscopic observat ion [Identifier] in Cervix by Cyto stain Rajendra Foley PA-C Work Phone: Start: 08-17-2014 Loop electrosurgical excision procedure Rajendra Foley Work Phone: Comment on above: 08/17/2014: Dr. Temple ; End: 08-04-2014 Colposcopy Rajendra Foley Colposcopy Rajendrajuarez Thapa fong Work Phone: Comment on above: 2019-HENRIETTA I2015; [id number] I 2014; End: 08-17-2014 Loop electrosurgical excision procedure Rajendra Caroenhall Operation on mouth Rajendra shaver Plan of Treatment Date Care Activity Detail Author Start: 2043 [facility] Start: 10-30-2033 Zoster Vaccines (1 of 2) Zoste r Vaccines (1 of 2) [facility] Start: 10-30-2033 [facility] Start: 07-02-2028 Screening for malign ant neoplasm of cervix [facility] Start: 07-02-2026 Screening for malign ant neoplasm of cervix Pap Smear [facility] Start: 09-29-2025 Creatinine measurement Creatinine [facility] Start: 09-29-2025 Potassium measurement Potassium Leve l [facility] Start: 09-18-2025 Echocardiography Echocardiogram [facility] Start: 07-18-2025 Lipid panel Lipid Panel [facility] Start: 04-18-2025 Screening for malign ant neoplasm of cervix [facility] Start: 04-14-2025 Creatinine measurement Creatinine [facility] Start: 04-14-2025 Potassium measurement Potassium Leve l [facility] Start: 02-04-2025 Echocardiography Echocardiogram [facility] Start: 01-05-2025 End: 01-05-2025 Telemedicine consultation with patient 01/05/2025 2:00 PM EDT Telemedicine [facility] [address] [address] [place] [address] [place] [address] [facility] Start: 12-26-2024 End: 12-26-2024 Patient encounter procedure 12/26/2024 11:00 AM EDT Appointment [facility] [address] [place] [address] [facility] Start: 11-10-2024 Influenza vaccination U [facility] Start: 10-18-2024 Hemoglobin A1c measurement Alexandra betes: Hemoglobin A1C [facility] Start: 09-23-2024 End: 09-23-2024 Patient encounter procedure 09/23/2024 1:40 PM EDT Office Visit [facility] [address] [place] [address] Rajendra Foley PA-C [address] [place] [address] [facility] Start: 09-22-2024 End: 09-22-2024 Telemedicine consultation with patient 09/22/2024 2:[address] [facility] [address] [facility] [address] [place] [address] [place] [address] [place] [address] [facility] Start: 09-02-2024 End: 09-02-2024 Telemedicine consultation with patient 09/02/2024 3:[address] [facility] [address] [facility] [address] [place] [address] [place] [address] [place] [address] [facility] Start: 08-28-2024 End: 08-28-2024 Patient encounter procedure [facility] Start: 07-14-2024 End: 07-14-2024 ambulatory 07/14/2024 11:30 AM EDT Evaluation [facility] [address] [place] [address] Blanche Fleming, OT [address] [place] [address] Roselyn Brown Start: 07-14-2024 End: 07-14-2024 Patient encounter procedure 07/14/2024 10:00 AM EDT Office Visit [facility] [address] [place] [address] Rocio Arroyo MD [address] [facility] [address] [place] [address] [facility] Start: 07-10-2024 End: 07-10-2025 Hemoglobin A1c/Hemoglobin.total in Blood Hemoglobin A1c Lab Routine Controlled type 2 diabetes mellitus with hyperglycemia, without long-term current use of insulin Expected: 07/10/2024 (Approximate), Expires: 07/10/2025 [facility] Work Phone: Comment on above: Expected: 07/10/2024 (Approximate), Expires: 07/10/2025 Start: 07-10-2024 End: 07-10-2025 Lipid 1996 panel - Serum or Plasma Lipid Panel Lab Routine Low HDL (under 40) Expected: 07/10/2024 (Approximate), Expires: 07/10/2025 [facility] Service Area Work Phone: Comment on above: Expected: 07/10/2024 (Approximate), Expires: 07/10/2025 Start: 07-10-2024 End: 07-10-2025 Thyrotropin [Units/volume] in Serum or Plasma Thyroid Stimulating Hormone Lab Routine Low HDL (under 40) Expected: 07/10/2024 (Approximate), Expires: 07/10/2025 [facility] Work Phone: Comment on above: Expected: 07/10/2024 (Approximate), Expires: 07/10/2025 Start: 07-10-2024 End: 07-10-2025 Thyroxine (T4) free [Mass/volume] in Serum or Plasma Thyroxine, Free Lab Routine Low HDL (under 40) Expected: 07/10/2024 (Approximate), Expires: 07/10/2025 [facility] Work Phone: Comment on above: Expected: 07/10/2024 (Approximate), Expires: 07/10/2025 Start: 07-10-2024 End: 07-10-2024 Patient encounter procedure 07/10/2024 10:20 AM EDT Office Visit [facility] [address] [place] [address] Rajendra Foley, ROBERT [address] [place] [address] [facility] Start: 07-03-2024 Yearly Adult Physical Yearly Adult P [facility] Start: 05-27-2024 End: 05-27-2024 Telemedicine consultation with patient 05/27/2024 3:[address] [facility] [address] [facility] [address] [place] [address] [place] [address] [place] [address] [facility] Start: 05-12-2024 End: 05-12-2024 Patient encounter procedure 05/12/2024 11:00 AM EST Office Visit [facility] [address] [facility] [address] [place] [phone] Rocio Arroyo MD [address] [facility] [address] [place] [address] [facility] Start: 04-28-2024 End: 07-17-2024 US Pelvis transvaginal US PELVIS TRANSABDOMINAL WITH TRANSVAGINAL Imaging Routine Left ovarian cyst Expected: 04/28/2024, Expires: 07/17/2024 [facility] Service Area Work Phone: Comment on above: Expected: 04/28/2024 , Expires: 07/17/2024 Start: 04-28-2024 End: 04-28-2024 ambulatory [facility] Start: 04-28-2024 End: 04-28-2024 Patient encounter procedure 04/28/2024 9:45 AM EST Appointment [address] [phone] [facility] Start: 04-23-2024 End: 04-23-2024 Telemedicine consultation with patient 04/23/2024 3:00 PM EST Telemedicine [facility] [address] [facility] [address] [place] [address] [place] [address] [place] [address] [facility] Start: 03-13-2024 End: 03-13-2024 Patient encounter procedure 03/13/2024 4:[address] [facility] [address] [facility] [address] [place] [address] [facility] Start: 02-28-2024 End: 02-28-2024 Patient encounter procedure 02/28/2024 11:00 AM EST Office Visit [facility] Medical Office Building [facility] [address] [place] [address] Emre Silverio MD [address] [place] [address] [facility], [address] [address] [facility] Building Start: 02-18-2024 End: 02-18-2024 Telemedicine consultation with patient 02/18/2024 1:[address] [facility] [address] [facility] [address] [place] [address] [place] [address] [place] [address] [facility] Start: 02-06-2024 End: 02-06-2024 Patient encounter procedure 02/06/2024 4:30 PM EST Office Visit [facility] [address] [place] [address] [place] [address] [place] [address] [facility] Start: 11-18-2023 Urine screening for protein [facility] Start: 11-11-2023 COVID-19 Vaccine () COVID-19 Vaccine () [facility] Start: 11-11-2023 Influenza vaccination U [facility] Start: 2023 Screening for malign ant neoplasm of breast Mammogram [facility] Start: 09-06-2023 Hemoglobin A1c measurement [facility] Start: 08-21-2023 End: 08-21-2023 Patient encounter procedure 08/21/2023 10:00 AM EDT Office Visit [facility] [address] [place] [place] [address] Rajendra Foley PA-C [address] [place] [address] [facility] Start: 07-21-2023 Lipid panel [facility] Start: 07-12-2023 End: 07-12-2023 ambulatory [facility] Office Building Start: 07-12-2023 End: 07-12-2023 Patient encounter procedure 07/12/2023 10:30 AM EDT Office Visit [facility] Medical Office Building [address] [place] [address] Emre Silverio MD [address], [facility] 2 [place] [address] [facility] Building Start: 07-04-2023 End: 07-04-2023 ambulatory [facility] Start: 07-03-2023 End: 07-03-2023 ambulatory [facility] Office Building Start: 07-03-2023 End: 07-03-2023 Patient encounter procedure 07/03/2023 9:00 AM EDT Office Visit [facility] Medical Office Building [address] [place] [phone] Rashawn Carter MD [address] [facility] [place] [address] [facility] Medical Office [facility] Start: 05-23-2023 End: 05-23-2023 Patient encounter procedure 05/23/2023 2:30 PM EDT Office Visit [facility] Medical Office [facility] [address] [place] [phone] [place] [address] [facility] [address] [place] [address] [facility] Medical Office [facility] Start: 05-01-2023 FUV, Provider: Rashawn Carter, Status: Pen, Time: 9:00 AM FUV, Provider: Rashawn Carter, Status: Pen, Time: 9:[address] Work Phone: Start: 05-01-2023 End: 05-01-2023 Patient encounter procedure [facility] Start: 04-26-2023 End: 04-26-2023 Patient encounter procedure 04/26/2023 8:40 AM EST Office Visit [facility] [address] [place] [phone] Rajendra Foley, ROBERT [address] [facility] [address] [place], [place] [id number] [facility] Start: 04-24-2023 End: 04-24-2023 Patient encounter procedure [facility] Start: 04-23-2023 Patient encounter procedure [facility] Start: 04-19-2023 End: 04-19-2023 Punch biopsy skin single lesion Biopsy Skin/Soft Tissue Lower Extremity 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) 04/19/2023 10:05 AM EST Virtual [facility] Start: 04-05-2023 End: 04-05-2025 Vascular US PVR With Exercise Vascular US PVR With Exercise Vascular Ultrasound Routine Raynaud's disease without gangrene Non-healing wound of upper extremity, right, subsequent encounter Non-healing wound of lower extremity, left, subsequent encounter Expected: 04/05/2023 (Approximate), Expires: 04/05/2025 [facility] Work Phone: Comment on above: Expected: 04/05/2023 (Approximate), Expires: 04/05/2025 Start: 04-05-2023 End: 04-05-2024 XR Finger - right 2 Views XR fingers right 2+ views Imaging Routine Raynaud's disease without gangrene Non-healing wound of upper extremity, right, subsequent encounter Expected: 04/05/2023, Expires: 04/05/2024 [facility] Service Area Work Phone: Comment on above: Expected: 04/05/2023 , Expires: 04/05/2024 Start: 04-05-2023 End: 04-05-2024 XR Tibia and Fibula - left 2 Views XR tibia fibula left 2 views Imaging Routine Non-healing wound of lower extremity, left, subsequent encounter Expected: 04/05/2023, Expires: 04/05/2024 [facility] Work Phone: Comment on above: Expected: 04/05/2023 , Expires: 04/05/2024 Start: 02-22-2023 End: 02-22-2023 Patient encounter procedure 02/22/2023 1:20 PM EST Office Visit [facility] [address] [place] [phone] Rajendra Foley PA-C [address] [place] [address] [facility] Start: 02-16-2023 Hemoglobin A1c measurement Alexandra betes: Hemoglobin A1C [facility] Start: 12-15-2022 PAPREPEAT, Provider: Rashawn Carter, Status: Pen, Time: 8:45 AM PAPREPEAT, Provider: Rashawn Carter, Status: Tomy, Time: 8:[address] Work Phone: Start: 12-15-2022 Patient encounter procedure Asya Dempsey Start: 11-23-2022 End: 11-24-2023 NICOLE + VALENCIA Panel NICOLE + VALENCIA Panel Lab Routine Raynaud's disease without gangrene Non-healing wound of lower extremity, left, subsequent encounter Bilateral hand pain Expected: 11/23/2022 (Approximate), Expires: 11/24/2023 [facility] Work Phone: Comment on above: Expected: 11/23/2022 (Approximate), Expires: 11/24/2023 Start: 11-23-2022 End: 11-24-2023 C reactive protein [Mass/volume] in Serum or Plasma C-Reactive Protein Lab Routine Raynaud's disease without gangrene Non-healing wound of lower extremity, left, subsequent encounter Bilateral hand pain Expected: 11/23/2022 (Approximate), Expires: 11/24/2023 [facility] Work Phone: Comment on above: Expected: 11/23/2022 (Approximate), Expires: 11/24/2023 Start: 11-23-2022 End: 11-24-2023 CBC W Auto Differential panel - Blood CBC and Auto Differential Lab Routine Hypertension associated with diabetes ([facility]) Controlled type 2 diabetes mellitus with hyperglycemia, without long-term current use of insulin (CMS/HCC) Expected: 11/23/2022 (Approximate), Expires: 11/24/2023 [facility] Service Area Work Phone: Comment on above: Expected: 11/23/2022 (Approximate), Expires: 11/24/2023 Start: 11-23-2022 End: 11-24-2023 Cobalamin (Vitamin B12) [Mass/volume] in Serum or Plasma Vitamin B12 Lab Routine Hypertension associated with diabetes (CMS/HCC) Controlled type 2 diabetes mellitus with hyperglycemia, without long-term current use of insulin (CMS/[facility]) Expected: 11/23/2022 (Approximate), Expires: 11/24/2023 [facility] Work Phone: Comment on above: Expected: 11/23/2022 (Approximate), Expires: 11/24/2023 Start: 11-23-2022 End: 11-24-2023 Comprehensive metabolic 2000 panel - Serum or Plasma Comprehensive Metabolic Panel Lab Routine Hypertension associated with diabetes ([facility]) Controlled type 2 diabetes mellitus with hyperglycemia, without long-term current use of insulin ([facility]) Expected: 11/23/2022 (Approximate), Expires: 11/24/2023 [facility] Work Phone: Comment on above: Expected: 11/23/2022 (Approximate), Expires: 11/24/2023 Start: 11-23-2022 End: 11-24-2023 Cyclic citrullinated peptide IgG Ab [Units/volume] in Serum or Plasma Citrulline Antibody, IgG Lab Routine Raynaud's disease without gangrene Non-healing wound of lower extremity, left, subsequent encounter Bilateral hand pain Expected: 11/23/2022 (Approximate), Expires: 11/24/2023 [facility] Work Phone: Comment on above: Expected: 11/23/2022 (Approximate), Expires: 11/24/2023 Start: 11-23-2022 End: 11-24-2023 DNA double strand Ab [Units/volume] in Serum Anti-DNA Antibody, Double-Stranded Lab Routine Raynaud's disease without gangrene Non-healing wound of lower extremity, left, subsequent encounter Bilateral hand pain Expected: 11/23/2022 (Approximate), Expires: 11/24/2023 [facility] Work Phone: Comment on above: Expected: 11/23/2022 (Approximate), Expires: 11/24/2023 Start: 11-23-2022 End: 11-24-2023 Erythrocyte sedimentation rate Sedimentation Rate Lab Routine Raynaud's disease without gangrene Non-healing wound of lower extremity, left, subsequent encounter Bilateral hand pain Expected: 11/23/2022 (Approximate), Expires: 11/24/2023 [facility] Work Phone: Comment on above: Expected: 11/23/2022 (Approximate), Expires: 11/24/2023 Start: 11-23-2022 End: 11-24-2023 Ferritin [Mass/volume] in Serum or Plasma Ferritin Lab Routine Hypertension associated with diabetes (CMS/HCC) Controlled type 2 diabetes mellitus with hyperglycemia, without long-term current use of insulin (CMS/HCC) Elevated ferritin Expected: 11/23/2022 (Approximate), Expires: 11/24/2023 [facility] Work Phone: Comment on above: Expected: 11/23/2022 (Approximate), Expires: 11/24/2023 Start: 11-23-2022 End: 11-24-2023 Hemoglobin A1c/Hemoglobin.total in Blood Hemoglobin A1C Lab Routine Hypertension associated with diabetes ([facility]/HCC) Controlled type 2 diabetes mellitus with hyperglycemia, without long-term current use of insulin (CMS/HCC) Expected: 11/23/2022 (Approximate), Expires: 11/24/2023 [facility] Work Phone: Comment on above: Expected: 11/23/2022 (Approximate), Expires: 11/24/2023 Start: 11-23-2022 End: 11-24-2023 Iron and Iron binding capacity panel - Serum or Plasma Iron and TIBC Lab Routine Hypertension associated with diabetes (CMS/HCC) Controlled type 2 diabetes mellitus with hyperglycemia, without long-term current use of insulin (CMS/HCC) Elevated ferritin Expected: 11/23/2022 (Approximate), Expires: 11/24/2023 [facility] Work Phone: Comment on above: Expected: 11/23/2022 (Approximate), Expires: 11/24/2023 Start: 11-23-2022 End: 11-24-2023 Lipid 1996 panel - Serum or Plasma Lipid Panel Lab Routine Hypertension associated with diabetes (CMS/HCC) Controlled type 2 diabetes mellitus with hyperglycemia, without long-term current use of insulin (CMS/HCC) Expected: 11/23/2022 (Approximate), Expires: 11/24/2023 [facility] Work Phone: Comment on above: Expected: 11/23/2022 (Approximate), Expires: 11/24/2023 Start: 11-23-2022 End: 11-24-2023 Magnesium [Mass/volume] in Serum or Plasma Magnesium Lab Routine Hypertension associated with diabetes (CMS/HCC) Controlled type 2 diabetes mellitus with hyperglycemia, without long-term current use of insulin (CMS/HCC) Expected: 11/23/2022 (Approximate), Expires: 11/24/2023 [facility] Work Phone: Comment on above: Expected: 11/23/2022 (Approximate), Expires: 11/24/2023 Start: 11-23-2022 End: 11-24-2023 Rheumatoid factor [Units/volume] in Serum by Nephelometry Rheumatoid Factor Lab Routine Raynaud's disease without gangrene Non-healing wound of lower extremity, left, subsequent encounter Bilateral hand pain Expected: 11/23/2022 (Approximate), Expires: 11/24/2023 [facility] Work Phone: Comment on above: Expected: 11/23/2022 (Approximate), Expires: 11/24/2023 Start: 11-23-2022 End: 11-24-2023 Thyrotropin [Units/volume] in Serum or Plasma Thyroid Stimulating Hormone Lab Routine Hypertension associated with diabetes ([facility]/HCC) Controlled type 2 diabetes mellitus with hyperglycemia, without long-term current use of insulin ([facility]/HCC) Expected: 11/23/2022 (Approximate), Expires: 11/24/2023 [facility] Work Phone: Comment on above: Expected: 11/23/2022 (Approximate), Expires: 11/24/2023 Start: 11-23-2022 End: 11-24-2023 Thyroxine (T4) free [Mass/volume] in Serum or Plasma Thyroxine, Free Lab Routine Hypertension associated with diabetes (CMS/HCC) Controlled type 2 diabetes mellitus with hyperglycemia, without long-term current use of insulin (CMS/HCC) Expected: 11/23/2022 (Approximate), Expires: 11/24/2023 [facility] Work Phone: Comment on above: Expected: 11/23/2022 (Approximate), Expires: 11/24/2023 Start: 11-10-2022 COVID-19 Vaccine ( season) COVID-19 Vaccine () [facility] Start: 11-10-2022 Influenza vaccination Influenza Vacc ine (#1) [facility] Start: 11-10-2022 [facility] Start: 11-09-2022 Anaerobic Culture Anaerobic Culture [facility] Start: 11-09-2022 Microscopic observat ion [Identifier] in Unspecified specimen by Gram stain Gram Stain [facility] Start: 11-09-2022 Wound Culture Wound Culture [facility] Start: 11-01-2022 FUV, Provider: Rashawn Carter, Status: Pen, Time: 9:15 AM FUV, Provider: Rashawn Carter, Status: Pen, Time: 9:15 AM [employer] Work Phone: Start: 07-26-2022 FUV, Provider: Rajendra Foley, Status: Pen, Time: 8:20 AM FUV, Provider: Rajendra Foley, Status: Pen, Time: 8:20 AM [employer] Work Phone: Start: 06-09-2022 FUV, Provider: Rashawn Carter, Status: Pen, Time: 8:30 AM FUV, Provider: Rashawn Carter, Status: Pen, Time: 8:30 AM [employer] Work Phone: Start: 03-24-2022 Patient encounter procedure [employer] Work Phone: Start: 01-19-2022 FUV, Provider: Misty Charles, Status: Pen, Time: 8:20 AM FUV, Provider: Misty Sweenye, Status: Pen, Time: 8:20 AM [employer] Work Phone: Start: 01-13-2022 FUV, Provider: Arielle Lyman, Status: Pen, Time: 8:30 AM FUV, Provider: Arielle Lyman, Status: Pen, Time: 8:30 AM [employer] Work Phone: Start: 12-07-2021 FUV, Provider: Blade Rodriguez, Status: Pen, Time: 3:15 PM FUV, Provider: Blade Rodriguez, Status: Pen, Time: 3:15 PM [employer] Work Phone: Start: 10-26-2021 FUV, Provider: Rajendra Foley, Status: Pen, Time: 8:40 AM FUV, Provider: Rajendra Foley, Status: Pen, Time: 8:40 AM [facility] Work Phone: Start: 06-27-2021 RNVISIT, Provider: Raina GAO 1,[id number], Status: Pen, Time: 9:00 AM RNVISIT, Provider: SAQIB ESTRADAD 1,[id number], Status: Pen, Time: 9:00 AM [employer] Work Phone: Start: 04-20-2021 FUV, Provider: Rajendra Foley, Status: Pen, Time: 8:40 AM FUV, Provider: Rajendra Foley, Status: Pen, Time: 8:[address] Work Phone: Start: 04-04-2021 RNVISIT, Provider: Raina DEMPSEY RN ASHLND 1,[id number], Status: Pen, Time: 9:00 AM RNVISIT, Provider: SAQIB ESTRADAD 1,[id number], Status: Pen, Time: 9:00 AM [employer] [address] Work Phone: Start: 03-31-2021 FUV, Provider: Rajendra Foley, Status: Pen, Time: 9:00 AM FUV, Provider: Rajendra Foley, Status: Pen, Time: 9:00 AM [facility] Work Phone: Start: 03-28-2021 RNVISIT, Provider: Raina GAO 1,[id number], Status: Pen, Time: 9:00 AM RNVISIT, Provider: SAQIB GAO 1,[id number], Status: Pen, Time: 9:00 AM [facility] Work Phone: Start: 03-21-2021 Patient encounter procedure ANNUAL, Provider: Blade Rodriguez, Status: Pen, Time: 9:00 AM [facility] Work Phone: Start: 12-22-2020 RNVISIT, Provider: Raina GAO 1,[id number], Status: Pen, Time: 9:00 AM RNVISIT, Provider: SAQIB GAO 1,[id number], Status: Pen, Time: 9:00 AM [facility] [employer] Work Phone: Start: 10-30-2020 COVID-19 Vaccine (3 - Moderna series) COVID-19 Vaccine (3 - Moderna series) [facility] Start: 09-29-2020 RNVISIT, Provider: Raina GAO 1,[id number], Status: Pen, Time: 9:00 AM RNVISIT, Provider: SAQIB GAO 1,[id number], Status: Pen, Time: 9:00 AM [facility] Work Phone: Start: 09-28-2020 FUV, Provider: Rajendra Foley, Status: Pen, Time: 9:00 AM FUV, Provider: Rajendra Folye, Status: Pen, Time: 9:00 AM [facility] Work Phone: Start: 10-30-2010 HPV Vaccines (1 - 3- dose standard series) HPV Vaccines (1 - 3-dose standard series) [facility] Start: 10-30-2005 DTaP/Tdap/Td Vaccine s (1 - Tdap) DTaP/Tdap/Td Vaccines (1 - Tdap) [facility] Start: 10-30-2005 [facility] Start: 10-30-2004 Screening for malign ant neoplasm of cervix [facility] Start: 10-30-2002 Hepatitis A Vaccines (1 of 2 - Risk 2-dose series) Hepatitis A Vaccines (1 of 2 - Risk 2-dose series) [facility] Start: 10-30-2002 Hepatitis B Vaccines (1 of 3 - 19+ 3-dose series) Hepatitis B Vaccines (1 of 3 - 19+ 3-dose series) [facility] Start: 10-30-2002 Pneumococcal Vaccine : Pediatrics and At-Risk Adult Patients (1 of 2 - PCV) Pneumococcal Vaccine: Pediatrics and At-Risk Adult Patients (1 of 2 - PCV) [facility] Start: 10-30-2002 [facility] Start: 10-30-2001 [facility] Start: 10-30-1996 Varicella vaccination U [facility] Start: 10-30-1994 DTaP/Tdap/Td Vaccine s (6 - Tdap) DTaP/Tdap/Td Vaccines (6 - Tdap) [facility] Start: 10-30-1993 Diabetic foot examination [facility] Start: 10-30-1993 Glaucoma screening [facility] Start: 10-30-1989 Pneumococcal Vaccine : Pediatrics (0 to 5 Years) and At-Risk Patients (6 to 64 Years) (1 - PCV) Pneumococcal Vaccine: Pediatrics (0 to 5 Years) and At-Risk Patients (6 to 64 Years) (1 - PCV) [facility] Start: 10-30-1989 Pneumococcal Vaccine : Pediatrics (0 to 5 Years) and At-Risk Patients (6 to 64 Years) (1 of 2 - PCV) Pneumococcal Vaccine: Pediatrics (0 to 5 Years) and At-Risk Patients (6 to 64 Years) (1 of 2 - PCV) [facility] Start: 10-30-1989 [facility] Start: 10-30-1984 MMR Vaccines (1 of 1 - Standard series) MMR Vaccines (1 of 1 - Standard series) [facility] Start: 10-30-1984 Varicella vaccination Varicell a Vaccines (1 of 2 - 2-dose childhood series) [facility] Start: 10-30-1984 [facility] Start: 1983 Hepatitis B Vaccines (1 of 3 - 3-dose series) Hepatitis B Vaccines (1 of 3 - 3-dose series) [facility] Start: 1983 HIV screening HIV Screening [facility] Start: 1983 Yearly Adult Physical Yearly Adult P hysical [facility] Start: 1983 [facility] Bacteria identified in Blood by Culture [facility] Service Area Work Phone: End: 04-26-2023 Bacteria identified in Blood by Culture [facility] Area Work Phone: Comment on above: STAT (Lab) for 1 Occ urrences starting 04/26/2023 until 04/26/2023 Bacteria identified in Blood by Culture Blood Culture Microbiology STAT 06/04/2023 10:06 PM EDT [facility] Work Phone: End: 06-06-2023 Bacteria identified in Blood by Culture [facility] Work Phone: Bacteria identified in Unspecified specimen by Anaerobe culture [facility] Bacteria identified in Unspecified specimen by Culture [facility] Work Phone: Comment on above: Release Upon Orderin g for 1 Occurrences starting 04/19/2023 CBC W Auto Different ial panel - Blood [facility] Work Phone: End: 04-19-2023 Choriogonadotropin ( test) [Presence] in Urine POCT , urine manually resulted Point of Care Testing Routine 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) Once (Lab) for 1 Occurrences starting 04/19/2023 until 04/19/2023 [facility] Work Phone: Comment on above: Once (Lab) for 1 Occ urrences starting 04/19/2023 until 04/19/2023 End: 06-12-2023 Choriogonadotropin ( test) [Presence] in Urine [facility] Work Phone: End: 09-29-2024 Choriogonadotropin ( test) [Presence] in Urine POCT , urine Point of Care Testing Routine Once (Lab) for 1 Occurrences starting 09/29/2024 until 09/29/2024 [facility] Work Phone: Comment on above: Once (Lab) for 1 Occ urrences starting 09/29/2024 until 09/29/2024 Comprehensive metabo lic 2000 panel - Serum or Plasma [facility] Work Phone: End: 04-19-2023 Continuous Pulse oximetry, In Phase 1 Continuous Pulse oximetry, In Phase 1 Respiratory Care Routine Continuous until discontinued starting 04/19/2023 [facility] Work Phone: Comment on above: Continuous until dis continued starting 04/19/2023 End: 06-06-2023 ECG 12 lead [facility] Work Phone: Comment on above: Once for 1 Occurrenc es starting 06/06/2023 until 06/06/2023 End: 09-29-2024 ECG 12 Lead ECG 12 Lead ECG STAT Once for 1 Occurrences starting 09/29/2024 until 09/29/2024 [facility] Work Phone: Comment on above: Once for 1 Occurrenc es starting 09/29/2024 until 09/29/2024 Electrocardiogram, 1 2-lead PRN ACS symptoms Electrocardiogram, 12-lead PRN ACS symptoms ECG Routine As needed until discontinued starting 04/06/2023 [facility] Service Area Work Phone: Comment on above: As needed until disc ontinued starting 04/06/2023 Electrocardiogram, 1 2-lead PRN ACS symptoms Electrocardiogram, 12-lead PRN ACS symptoms ECG Routine Non-healing wound of lower extremity, left, subsequent encounter As needed until discontinued starting 04/19/2023 [facility] Work Phone: Comment on above: As needed until disc ontinued starting 04/19/2023 Electrocardiogram, 1 2-lead PRN ACS symptoms Electrocardiogram, 12-lead PRN ACS symptoms ECG Routine As needed until discontinued starting 06/05/2023 [facility] Work Phone: Comment on above: As needed until disc ontinued starting 06/05/2023 Electrocardiogram, 1 2-lead PRN ACS symptoms Electrocardiogram, 12-lead PRN ACS symptoms ECG Routine As needed until discontinued starting 06/05/2023 [facility] Work Phone: Comment on above: As needed until disc ontinued starting 06/05/2023 End: 06-07-2023 Erythrocyte sedimentation rate Sedimentation Rate Lab Routine Morning draw (Lab) for 1 Occurrences starting 06/07/2023 until 06/07/2023 [facility] Work Phone: Comment on above: Morning draw (Lab) f or 1 Occurrences starting 06/07/2023 until 06/07/2023 End: 06-04-2023 Extra Urine Martell Tube Extra Urine Martell Tube Lab Timed Once for 1 Occurrences starting 06/04/2023 until 06/04/2023 [facility] Work Phone: Comment on above: Once for 1 Occurrenc es starting 06/04/2023 until 06/04/2023 Fungus identified in Unspecified specimen by Culture [facility] Work Phone: Comment on above: Release Upon Orderin g for 1 Occurrences starting 04/19/2023 End: 06-09-2023 Gas panel - Mixed venous blood [facility] Work Phone: End: 09-29-2024 Gas panel - Venous blood BLOOD GAS VENOUS FULL PANEL Lab Routine Once (Lab) for 1 Occurrences starting 09/29/2024 until 09/29/2024 [facility] Work Phone: Comment on above: Once (Lab) for 1 Occ urrences starting 09/29/2024 until 09/29/2024 Glucose [Mass/volume ] in Serum or Plasma [facility] Work Phone: Comment on above: As needed (Lab) unti l discontinued starting 04/19/2023 Glucose [Mass/volume ] in Serum or Plasma [facility] Work Phone: End: 09-29-2024 Glucose [Mass/volume] in Serum or Plasma POCT Glucose Point of Care Testing - Docked Device Routine Once (Lab) for 1 Occurrences starting 09/29/2024 until 09/29/2024 [facility] Service Area Work Phone: Comment on above: Once (Lab) for 1 Occ urrences starting 09/29/2024 until 09/29/2024 End: 06-06-2023 Hepatitis C virus RNA panel (viral load) in Serum or Plasma by LEX with probe detection [facility] Work Phone: Comment on above: Once (Lab) for 1 Occ urrences starting 06/06/2023 until 06/06/2023 Magnesium [Mass/volu me] in Serum or Plasma [facility] Work Phone: Mycobacterium sp identified in Unspecified specimen by Organism specific culture [facility] Work Phone: Comment on above: Release Upon Orderin g for 1 Occurrences starting 04/19/2023 End: 06-06-2023 Nuclear Ab [Presence] in Serum by Hep2 substrate NICOLE with Reflex to VALENCIA Lab Add-On Once (Lab) for 1 Occurrences starting 06/06/2023 until 06/06/2023 [facility] Work Phone: Comment on above: Once (Lab) for 1 Occ urrences starting 06/06/2023 until 06/06/2023 End: 02-12-2024 Pulmonary Stress Test (6 Min. Walk) [facility] Service Area Work Phone: Comment on above: Once for 1 Occurrenc es starting 02/12/2024 until 02/12/2024 End: 04-21-2024 Pulmonary Stress Test (6 Min. Walk) [facility] Service Area Work Phone: Comment on above: Once for 1 Occurrenc es starting 04/21/2024 until 04/21/2024 End: 09-18-2024 Pulmonary Stress Test (6 Min. Walk) Pulmonary Stress Test (6 Min. Walk) PFT Routine Pulmonary hypertension (Multi) CREST syndrome (Multi) SOB (shortness of breath) Once for 1 Occurrences starting 09/18/2024 until 09/18/2024 [facility] Service Area Work Phone: Comment on above: Once for 1 Occurrenc es starting 09/18/2024 until 09/18/2024 End: 06-06-2023 Pulse oximetry, continuous [facility] Work Phone: End: 06-06-2023 Rheumatoid factor [Units/volume] in Serum by Nephelometry Rheumatoid Factor Lab Add-On Once (Lab) for 1 Occurrences starting 06/06/2023 until 06/06/2023 [facility] Work Phone: Comment on above: Once (Lab) for 1 Occ urrences starting 06/06/2023 until 06/06/2023 Surgical pathology study [facility] Work Phone: Comment on above: Release Upon Orderin g for 1 Occurrences starting 04/19/2023 End: 06-04-2023 Urinalysis complete W Reflex Culture panel - Urine [facility] Work Phone: Comment on above: Once (Lab) for 1 Occ urrences starting 06/04/2023 until 06/04/2023 End: 09-18-2024 US Heart Transthoracic [facility] Service Area Work Phone: Comment on above: Once for 1 Occurrenc es starting 09/18/2024 until 09/18/2024 End: 06-07-2023 Vancomycin [Mass/volume] in Serum or Plasma --trough Vancomycin, Trough Lab Timed This frequency is intended to be used for lab level procedures, or other lab procedures that should be ordered one time at a specific time. Order transmittal will set the priority to timed for procedures orderd with this frequency. for 1 Occurrences starting 06/07/2023 until 06/07/2023 [facility] Work Phone: Comment on above: This frequency is in tended to be used for lab level procedures, or other lab procedures that should be ordered one time at a specific time. Order transmittal will set the priority to timed for procedures orderd with this frequency. for 1 Occurrences starting 06/07/2023 until 06/07/2023 Vascular US PVR with out exercise Vascular US PVR without exercise Vascular Ultrasound Routine Other specified peripheral vascular diseases (CMS/HCC) Peripheral vascular disease, unspecified (CMS/HCC) 04/09/2023 2:05 PM EST [facility] Service Area Work Phone: Vascular US upper PVR Vascular U S upper PVR Vascular Ultrasound Routine Ulcer of finger, unspecified ulcer stage (CMS/HCC) Peripheral vascular disease, unspecified (CMS/HCC) 04/09/2023 2:05 PM EST [facility] Service Area Work Phone: [facility] Work Phone: [facility] NEGATED: Highlighted row has been ruled out! Planned Goals not documented [facility] Work Phone: Immunizations Immunization Date Immunization Notes Care Provider Judy staples 09-04-2020 Moderna COVID-19 Vaccine 100 MCG/0.5ML Intramuscular Suspension Rajendra B Alaina Work Phone: [facility] 08-09-2020 Moderna COVID-19 Vaccine 100 MCG/0.5ML Intramuscular Suspension Rajendra B Alaina Work Phone: [facility] 01-05-1997 hepatitis B vaccine, pediatric or pediatric/adolescent dosage Rajendra Alaina PA-C Work Phone: [facility] Work Phone: 07-28-1996 hepatitis B vaccine, pediatric or pediatric/adolescent dosage Rajendra [place] PA-C Work Phone: [facility] Work Phone: 06-19-1996 hepatitis B vaccine, pediatric or pediatric/adolescent dosage Rajendra [place] PA-C Work Phone: [facility] Work Phone: 06-19-1996 measles, mumps and rubella virus vaccine Rajendra Alaina PA-C Work Phone: [facility] Work Phone: 01-30-1990 diphtheria, tetanus toxoids and pertussis vaccine Rajendra Alaina PA-C Work Phone: [facility] Work Phone: 01-30-1990 trivalent poliovirus vaccine, live, oral Rajendra [place] PA-C Work Phone: [facility] Work Phone: 06-30-1987 diphtheria, tetanus toxoids and pertussis vaccine Rajendra [place] PA-C Work Phone: [facility] Work Phone: 06-11-1985 trivalent poliovirus vaccine, live, oral Rajendra [place] PA-C Work Phone: [facility] Work Phone: 02-12-1985 measles, mumps and rubella virus vaccine Rajendra Alaina PA-C Work Phone: [facility] Work Phone: 04-29-1984 diphtheria, tetanus toxoids and pertussis vaccine Rajendra Alaina PA-C Work Phone: [facility] 02-27-1984 diphtheria, tetanus toxoids and pertussis vaccine Rajendra [place] PA-C Work Phone: [facility] Work Phone: 02-27-1984 trivalent poliovirus vaccine, live, oral Rajendra Alaina PA-C Work Phone: [facility] Work Phone: 01-03-1984 diphtheria, tetanus toxoids and pertussis vaccine Rajendra [place] PA-C Work Phone: [facility] Work Phone: 01-03-1984 trivalent poliovirus vaccine, live, oral Rajendra [place] PA-C Work Phone: [facility] Work Phone: Payers Date Payer Category Payer Self-pay 2022 Medicaid (Managed Care) [facility] [id number] 2022 Private Health Insurance [id number] 2021 Medicaid [id number] 2021 Unknown 2021 Unknown [id number] 1983 Unknown [id number] 2.16.840.1.607899.3.579.2. 1983 Unknown [id number] 2.16.840.1.715354.3.579.2. 1983 Unknown [id number] 2.16840.1.906944.3.579.2. 1068 1983 Unknown [id number] 2.16840.1.238100.3.579.2. 1068 1983 Unknown [id number] 2.16.840.1.999215.3.579.2. 1068 1983 Unknown [id number] 2.16.840.1.084501.3.579.2. 1068 1983 Unknown [id number] 2.16.840.1.728936.3.579.2. 1068 1983 Unknown [id number] 2.16.840.1.845081.3.579.2. 1068 1983 Unknown [id number] 2.16.840.1.194878.3.579.2. 1069 1983 Unknown [id number] 2.16.840.1.704237.3.579.2. 983 1983 Unknown [id number] 2.16.840.1.842431.3.579.2. 1244 1983 Unknown [id number] 2.840.1.177765.3.579.2. 1244 1983 Unknown [id number] 2.840.1.522612.3.579.2. 1244 1983 Unknown [id number] 2.840.1.838725.3.579.2. 1244 1983 Unknown [id number] 2.840.1.575314.3.579.2. 1244 1983 Unknown [id number] 2.0.1.219924.3.579.2. 1244 1983 Unknown [id number] 2.840.1.835955.3.579.2. 1242 1983 Unknown [id number] 2.840.1.640470.3.579.2. 1242 1983 Unknown [id number] 2.840.1.238830.3.579.2. 1242 1983 Unknown [id number] 2.0.1.639255.3.579.2. 1242 1983 Unknown [id number] 2.840.1.721040.3.579.2. 1242 1983 Unknown [id number] 2.840.1.165947.3.579.2. 1242 1983 Unknown [id number] 2.840.1.103289.3.579.2. 1242 1983 Unknown [id number] 2.840.1.909160.3.579.2. 1242 1983 Unknown [id number] 2.16.840.1.566022.3.579.2. 1243 1983 Unknown [id number] 2.16.840.1.810797.3.579.2. 1243 1983 Unknown [id number] 2.16.840.1.696604.3.579.2. 1243 Unknown [id number] 2.16.840.1.928859.3.579.2. 462 Unknown [id number] 2.16.840.1.947466.3.579.2. 462 Unknown [id number] 2.16.840.1.866795.3.579.2. 462 Unknown [id number] 2.16.840.1.835432.3.579.2. 462 Unknown [id number] 2.16.840.1.284152.3.579.2. 462 Unknown [id number] 2.16.840.1.339531.3.579.2. 462 Unknown [id number] 2.16.840.1.753421.3.579.2. 462 Unknown [id number] 2.16.840.1.462374.3.579.2. 462 Unknown [id number] 2.16.840.1.218173.3.579.2. 462 Unknown [id number] 2.16.840.1.035484.3.579.2. 462 Social History Date Type Detail Facility Start: 11-23-2022 End: 06-19-2023 Denies alcohol consumption Denies alcohol consumption [facility] Work Phone: Start: 10-12-2022 End: 10-12-2022 Tobacco smoking consumption unknown [facility] Start: 1985 Sex Assigned At Female W [facility] Start: 03-30-2021 End: 07-04-2023 Tobacco smoking status MIIS Smokes tobacco daily [facility] Start: 03-30-2021 End: 03-30-2023 History of tobacco use Cigarette Smoker [facility] Work Phone: Start: 11-23-2022 End: 07-12-2023 Tobacco use and exposure Smokeless tobacco non-user [facility] Work Phone: Start: 11-23-2022 End: 04-18-2023 Alcohol intake Current drinker of alcohol (finding) [facility] Work Phone: Start: 11-23-2022 End: 06-19-2023 Tobacco use panel [facility] Work Phone: Start: 11-23-2022 Alcohol Comment RARE [facility] Work Phone: Start: 1985 Sex Assigned At Not on file [facility] Work Phone: Start: 04-05-2023 End: 07-12-2023 Tobacco smoking status NHIS Ex-smoker [facility] Start: 03-30-2021 End: 03-30-2023 History of tobacco use Current smoker [facility] Work Phone: Start: 03-26-2023 End: 07-10-2024 Exposure to SARS-CoV-2 (event) Not sure [facility] How often to you hav e a drink containing alcohol? 2-4 times a month [facility] Work Phone: How many standard drinks containing alcohol do you have on a typical day? 1 or 2 [facility] Work Phone: How often do you hav e 6 or more drinks on 1 occasion? Less than monthly [facility] Work Phone: Start: 02-03-2022 How hard is it for y ou to pay for the very basics like food, housing, medical care, and heating Not hard at all [facility] Work Phone: In the past 12 month s, was there a time when you were not able to pay the mortgage or rent on time? No [facility] Work Phone: Start: 04-19-2023 End: 09-29-2024 Alcohol intake Ex-drinker (finding) [facility] Work Phone: How often do you hav e 6 or more drinks on 1 occasion? Never [facility] Work Phone: How hard is it for y ou to pay for the very basics like food, housing, medical care, and heating Not very hard [facility] (I/We) worried marie er (my/our) food would run out before (I/we) got money to buy more. Never true [facility] Work Phone: NEGATED: Highlighted row - - -[facility] Work Phone: Medical Equipment Procedure Code Equipment Code Equipment Origin al Text Equipment Identifier Dates [id number] Start: 04-19-2023 Functional Status Date Assessment Result Facility 09-29-2024 [place] - suicide severity rating scale screener - recent [C-SSRS] [facility] Work Phone: 07-10-2024 Patient Health Questionnaire 2 item (PHQ-2) [Reported] [facility] Work Phone: 06-19-2023 Are you deaf, or do you have serious difficulty hearing No 06/19/2023 2:46 PM Kb Ruiz, RN No [facility] Work Phone: 06-19-2023 Are you blind, or do you have serious difficulty seeing, even when wearing glasses No 06/19/2023 2:46 PM Kb Ruiz, RN No [facility] Work Phone: 06-19-2023 Do you have serious difficulty walking or climbing stairs No 06/19/2023 2:46 PM Kb Ruiz, RN No [facility] Work Phone: 06-19-2023 Do you have difficul ty dressing or bathing No 06/19/2023 2:46 PM Kb Ruiz, RN No [facility] Work Phone: 06-19-2023 Because of a physica l, mental, or emotional condition, do you have difficulty doing errands alone such as visiting a physician's office or shopping No 06/19/2023 2:46 PM Kb Ruiz, RN No [facility] Work Phone: NEGATED: Highlighted row Functional performance Functional status health issues are not documented Disease [facility] Work Phone: Mental Status Date Assessment Result Facility 06-19-2023 Because of a physical, mental, or emotional condition, do you have serious difficulty concentrating, remembering, or making decisions No 06/19/2023 2:46 PM Kb Ruiz, RN No [facility] Work Phone: NEGATED: Highlighted row Cognitive function [Interpretation] Cognitive status health issues are not documented Disease [facility] Work Phone: Clinical Notes 03-12-2021 to 09-29-2024 Mariano Castellano RN - 09/29/2024 9:35 AM Chandler Castellano RN - 09/29/2024 9:35 AM EDTDischarge InstructionsPost-Procedure Note - Antonio Hodge MD - 09/29/2024 8:45 AM EDTPatient Instructions Note Date & Type Note Facility 09-29-2024 Nurse Note Patient discharged via wheelchair to private vehicle. Home going instructions specific to procedure given: Yes 1 Easily Arousable; Responding Appropriately: Yes 2. VS +/- 20% of preprocedure status: Yes 3. Significant complications are absent: Yes 4. Ambulates without dizziness/Age appropriate activity: Yes 5. Pulse Ox greater than or equal to 92% or above on room air /ordered oxygen treatment: Yes 6. Care Plan Complete: Yes 7. Discharge education completed and information provided to patient and family: Yes 8. If Patient had PCI performed-Stent card sent home with Patient: N/A 9. Follow-up appointment within 2 weeks scheduled: N/A Patient and family have no further questions at this time. Gave patient and family department number and office number if any questions should arise. [facility] 09-29-2024 Nurse Note Patient discharged via wheelchair to private vehicle. Home going instructions specific to procedure given: Yes 1 Easily Arousable; Responding Appropriately: Yes 2. VS +/- 20% of preprocedure status: Yes 3. Significant complications are absent: Yes 4. Ambulates without dizziness/Age appropriate activity: Yes 5. Pulse Ox greater than or equal to 92% or above on room air /ordered oxygen treatment: Yes 6. Care Plan Complete: Yes 7. Discharge education completed and information provided to patient and family: Yes 8. If Patient had PCI performed-Stent card sent home with Patient: N/A 9. Follow-up appointment within 2 weeks scheduled: N/A Patient and family have no further questions at this time. Gave patient and family department number and office number if any questions should arise. documented in this encounter [facility] Work Phone: 09-29-2024 Hospital Discharge instructions Melissa Esquivel, YOUNG-PRISCA, DNP - 09/29/2024 9:19 AM EDT Lifestyle Recommendations for a Healthier Life: The following lifestyle changes can have a significant positive impact on your overall health - helping you to achieve healthy weight, lower metabolic and heart disease risk and manage stress more effectively: 1. Eat whole, fresh foods. Food is one of the biggest drivers of our overall health. Make your meals whole foods based, focusing on a wide variety of non starchy vegetables and fruits. It also beneficial to include various nuts, seeds and high-quality animal proteins for overall balanced diet. 2. Remove the sweeteners from your diet. Artificial sweeteners have a negative impact on our metabolic health - they can cause increase in both glucose and insulin, increasing the risk or potential for insulin resistance and abnormal blood sugar levels. Artificial sweeteners are also excessively sweeter than regular sugar, they trick our taste buds into craving extreme forms of sweet, like an addiction. I encourage you to avoid sugar, but also stevia, aspartame, sucralose, sugar alcohols like xylitol and maltitol. 3. Get rid of the inflammatory factors in your diet - this mainly comes from sugars of all kinds and refined vegetable oils. These can increase our risk for changes in our metabolic health which can lead to diabetes, heart disease and other chronic disease. You can reverse or combat the effective of inflammatory foods by increasing your intake of anti-inflammatory foods like wild-caught fish, fresh ground flax seed, fish oil and variety of fruits & vegetables. 4. Eat plenty of fiber!! The standard [place] diet has very low levels of daily dietary fiber, many people barely get 15 grams per day. There is plenty of nutrition research that shows how high-fiber foods can help lower our blood sugar. Eat a wide variety of fiber-rich plant-based foods including nuts, seeds, fruits, vegetables, and legumes. 5. Get enough sleep. Studies from experts in endocrinology & metabolism have shown that even a few nights of poor sleep can increase the risk of insulin resistance and abnormal blood sugar values. Make sleep a priority - it is an important factor in your health. Develop a sleep routine including: avoid eating two-three hours before bed, practice relaxation techniques (warm bath, meditation, yoga, mindfulness) to help relax your muscles and prepare you for sleep. Go to bed and wake up at consistent times. Avoid screen time for at least 60-90 minutes before bedtime. 6. Make exercise part of your regular routine. Exercise helps us manage blood sugar more effectively and makes our cells more receptive to the effect of the insulin our body makes (lowers blood sugar). Regular aerobic exercise AND interval or strength training are ideal to help maintain a healthy weight, metabolism & lower the risk of chronic disease. 7. Control stress levels. Chronic stress can lead to elevated blood sugar, elevated blood pressure, accumulation of fat around the belly and these things increase the risk for metabolic syndrome, diabetes and heart disease. We all have various levels of stress in our lives, we can't control all of it, but we can control how we respond to it and manage it's impact. Find healthy outlets for stress management like meditation, yoga, deep breathing, or exercise. Home BP monitoring instructions: Goal < 130 / 80 Remain still, Avoid smoking, caffeinated beverages, or exercise within 30 min before BP measurements. Ensure 5 min of quiet rest before BP measurements. Sit correctly with back straight and supported (on a straight-backed dining chair, for example, rather than a sofa). Sit with feet flat on the floor and legs uncrossed. Keep arm supported on a flat surface (such as a table), with the upper arm at heart level. Bottom of the cuff should be placed directly above the bend of the elbow Take a reading in the AM before breakfast 2-3 times / week Record all readings accurately: A written log should be brought to all appointments Monitors with built-in memory should be brought to all clinic appointments and calibrated to our machines Weight Management: Since food equals calories, in order to lose weight you must either eat fewer calories, exercise more to burn off calories with activity, or both. Food that is not used to fuel the body is stored as fat. A major component of losing weight is to make smarter food choices. Here's how: Limit non-nutritious foods, such as: Sugar, honey, syrups and candy Pastries, donuts, pies, cakes and cookies Soft drinks, sweetened juices and alcoholic beverages Cut down on high-fat foods by: Choosing poultry, fish or lean red meat Choosing low-fat cooking methods, such as baking, broiling, steaming, grilling and boiling Using low-fat or non-fat dairy products Using vinaigrette, herbs, lemon or fat-free salad dressings Avoiding fatty meats, such as donovan, sausage, bowden, ribs and luncheon meats Avoiding high-fat snacks like nuts, chips and chocolate Avoiding fried foods Using less butter, margarine, oil and mayonnaise Avoiding high-fat gravies, cream sauces and cream-based soups Eat a variety of foods, including: Fruit and vegetables that are raw, steamed or baked Whole grains, breads, cereal, rice and pasta Dairy products, such as low-fat or non-fat milk or yogurt, low-fat cottage cheese and low-fat cheese Protein-rich foods like chicken, turkey, fish, lean meat and legumes, or beans Change your eating habits: Eat three balanced meals a day to help control your hunger Watch portion sizes and eat small servings of a variety of foods Choose low-calorie snacks Eat only when you are hungry and stop when you are satisfied Eat slowly and try not to perform other tasks while eating Find other activities to distract you from food, such as walking, taking up a hobby or being involved in the community Include regular exercise in your daily routine Find a support group, if necessary, for emotional support in your weight loss effort Patient Education: Smoking Cessation Making the commitment to quit smoking is one of the best choices that smokers can make for themselves, but also a difficult one. There are various opportunities for support available. Here is an overview of them. There are various forms of nicotine replacement therapy available to assist with minimizing these symptoms. They are nicotine gum, nicotine patch, nicotine nasal spray, nicotine inhaler, and nicotine lozenge. Which kind of nicotine replacement therapy will best work for you can be discussed with your doctor or nurse to help you understand the pros and cons of each. Non-nicotine replacement therapy is also available. Bupropion (Wellbutrin, Zyban) is a mild anti-depressant that is also effective in helping people to quit smoking. It can be used alone or with nicotine replacement therapy. Varenicline (Chantix) is another medication that helps people who what to quit. This medication is not a form of nicotine replacement therapy, but it helps with the withdrawal symptoms. Studies have shown that the best success rates for people trying to quit include counseling and/or support groups such as the [facility] that is a free, confidential, 02/10, 697-xzc-r-year treatment referral and information service: 4-609-671-HELP (4990) Some helpful hints include: Avoidance. Stay away from smokers and places where you are tempted to smoke. Activities. Exercise or do hobbies that keep your hands busy. Alternatives. Use oral substitutes such as sugarless gum, hard candy, and carrot sticks. Change of habits. For example, if you usually smoke during a coffee break, then go for a walk instead. Deep breathing. When you have the urge to smoke, do a deep breathing exercise and remind yourself why you quit. Delay tactic. If you feel that you are about to light up, delay. Tell yourself you must wait 10 minutes. Often this simple trick will allow you to move beyond the urge Discussion. Call a friend for support. Drink of water. Use as an oral substitute such as water. Many people say the reason they smoke is to deal with stress. Unfortunately, stress is a part of all our lives. When quitting, you will need to find new strategies to deal with stress. There are stress-management classes, and self-help books that can help you discover new ways to reduce and deal with stress. The bottom line is: don't just try to go it alone-reach out for support to help you achieve your goal. documented in this encounter [facility] Work Phone: 09-29-2024 Miscellaneous Notes Physician Transition of Care Summary Invasive Cardiovascular Lab Procedure Date: 09/29/2024 Attending: * Antonio Hodge - Primary Resident/Fellow/Other Para Operator: Surgeons and Role: * No surgeons found with a matching role * Indications: Pre-op Diagnosis * Pulmonary hypertension (Multi) [I27.20] Post-procedure diagnosis: Post-op Diagnosis * Pulmonary hypertension (Multi) [I27.20] Procedure(s): Right Heart Catheterization 08530 - [place] RIGHT HEART CATH O2 SATURATION & CARDIAC OUTPUT Procedure Findings: PWP 8, PA 116/39 (65), RV 115/5/13, RA 7mmHg CO 5.8, CI 3.3 Severe pulmonary artery hypertension Similar tracings for PA and RV, consistent with severe pulmonary valve regurgitation Tracing from right atrium consistent with tricuspid regurgitation Description of the Procedure: Procedure: Right and Left Heart Catheterization Right Cephalic brachial vein access with 5F sheath using microcatheter under ultrasound guidance. 5F balloon-tip Arrow catheter inserted and advanced to the pulmonary artery. Right heart catheterization and hemodynamic measurements. Cardiac output and cardiac index assessed by Bishop method. Catheter removed. Plan: Patient may be discharged home after bed rest for 3 hours. Constant check for bleeding. Instruct patient not to use or bend her arm for four hours. Pneumology follow up - Dr. Schumacher. Cardiology follow up - Dr. Arroyo. Would suggest to keep conservative treatment and guideline-directed medical therapy (GDMT). Complications: No Stents/Implants: Implants No implant documentation for this case. Estimated Blood Loss: 0 mL Anesthesia: Moderate Sedation Anesthesia Staff: No anesthesia staff entered. Any Specimen(s) Removed: Order Name Source Comment Collection Info Order Time CBC Blood, Venous Collected By: Allison Isaacs RN 09/29/2024 7:32 AM Release result to MyChart Immediate BASIC METABOLIC PANEL Blood, Venous Collected By: Allison Isaacs RN 09/29/2024 7:32 AM Release result to MyChart Immediate BLOOD GAS VENOUS FULL PANEL Blood, Venous 09/29/2024 7:56 AM Release result to MyChart Immediate HCG, URINE, QUALITATIVE Clean Catch/Voided Collected By: Mariano Castellano RN 09/29/2024 8:15 AM Release result to MyChart Immediate Disposition: Home Electronically signed by: Antonio Hodge MD, 09/29/2024 9:13 AM Sedation Plan ASA 2 Mallampati class: III. Risks, benefits, and alternatives discussed with patient. Cosigned by Antonio Hodge MD at 09/29/2024 8:44 AM EDT documented in this encounter [facility] Work Phone: 09-29-2024 Surgery Postoperative evaluation and management note Physician Transition of Care Summary Invasive Cardiovascular Lab Procedure Date: 09/29/2024 Attending: * Antonio Hodge - Primary Resident/Fellow/Other Para Operator: Surgeons and Role: * No surgeons found with a matching role * Indications: Pre-op Diagnosis * Pulmonary hypertension (Multi) [I27.20] Post-procedure diagnosis: Post-op Diagnosis * Pulmonary hypertension (Multi) [I27.20] Procedure(s): Right Heart Catheterization 60279 - [place] RIGHT HEART CATH O2 SATURATION & CARDIAC OUTPUT Procedure Findings: PWP 8, PA 116/39 (65), RV 115/5/13, RA 7mmHg CO 5.8, CI 3.3 Severe pulmonary artery hypertension Similar tracings for PA and RV, consistent with severe pulmonary valve regurgitation Tracing from right atrium consistent with tricuspid regurgitation Description of the Procedure: Procedure: Right and Left Heart Catheterization Right Cephalic brachial vein access with 5F sheath using microcatheter under ultrasound guidance. 5F balloon-tip Arrow catheter inserted and advanced to the pulmonary artery. Right heart catheterization and hemodynamic measurements. Cardiac output and cardiac index assessed by Bishop method. Catheter removed. Plan: Patient may be discharged home after bed rest for 3 hours. Constant check for bleeding. Instruct patient not to use or bend her arm for four hours. Pneumology follow up - Dr. Schumacher. Cardiology follow up - Dr. Arroyo. Would suggest to keep conservative treatment and guideline-directed medical therapy (GDMT). Complications: No Stents/Implants: Implants No implant documentation for this case. Estimated Blood Loss: 0 mL Anesthesia: Moderate Sedation Anesthesia Staff: No anesthesia staff entered. Any Specimen(s) Removed: Order Name Source Comment Collection Info Order Time CBC Blood, Venous Collected By: Allison Isaacs RN 09/29/2024 7:32 AM Release result to MyChart Immediate BASIC METABOLIC PANEL Blood, Venous Collected By: Allison Isaacs RN 09/29/2024 7:32 AM Release result to MyChart Immediate BLOOD GAS VENOUS FULL PANEL Blood, Venous 09/29/2024 7:56 AM Release result to MyChart Immediate HCG, URINE, QUALITATIVE Clean Catch/Voided Collected By: Mariano Castellano RN 09/29/2024 8:15 AM Release result to MyChart Immediate Disposition: Home Electronically signed by: Antonio Hodge MD, 09/29/2024 9:13 AM [facility] Work Phone: 09-29-2024 Nurse procedure note Sedation Plan ASA 2 Mallampati class: III. Risks, benefits, and alternatives discussed with patient. Cosigned by Antonio Hodge MD at 09/29/2024 8:44 AM EDT [facility] Work Phone: 09-29-2024 History and physical note History Of Present Illness Jayna Smith is a 38 y.o. female with a history of pulmonary HTN, Raynaud's disease, CREST syndrome, GERD, and HTN presenting for right heart catheterization. Patient currently established with Dr. Schumacher secondary to her pulmonary HTN who has requested updated RHC to re-address pressures and discuss initiation of sotatercept. Patient denies any chest pain/pressure/discomfort or shortness of breath. Past Medical History Medical History[1] Surgical History Surgical History[2] Social History She reports that she quit smoking about 18 months ago. Her smoking use included cigarettes. She started smoking about 3 years ago. She has a 1 pack-year smoking history. She has never used smokeless tobacco. She reports that she does not currently use alcohol. She reports current drug use. Drug: Marijuana. Family History Family History[3] Allergies Amlodipine Physical Exam General: awake, alert and oriented. No acute distress. HEENT: normocephalic, atraumatic; conjunctivae are clear without exudates or hemorrhage. Sclera is non-icteric. Eyelids are normal in appearance without swelling or lesions. Hearing intact. Nares are patent bilaterally. Moist mucous membranes. Cardiovascular: heart rate and rhythm are normal. No murmurs, gallops, or rubs are auscultated. S1 and S2 are heard and are of normal intensity. No JVD, no carotid bruits Respiratory: bilateral lung sounds clear to auscultations without rales, rhonchi, or wheezes. No accessory muscle use or stridor Extremities: edema to LLE; discoloration secondary to underlying venous insufficiency Neurological: no focal deficits; gait steady Psychiatric: appropriate mood and affect; good judgment and insight Last Recorded Vitals Blood pressure 103/68, pulse 59, temperature 36.9 C (98.4 F), temperature source Temporal, resp. rate 20, weight 64.5 kg (142 lb 3.2 oz). Relevant Results Assessment & Plan Pulmonary hypertension (Multi) KHOA Naranjo DNP [1] Past Medical History: Diagnosis Date Anxiety ASCUS of cervix with negative high risk HPV 06/2017 Chlamydial infection, unspecified Chlamydia Elevated LFTs 05/25/2022 GERD (gastroesophageal reflux disease) Immunization not carried out because of patient refusal Influenza vaccination declined LGSIL on Pap smear of cervix 2014 HPV + LGSIL on Pap smear of cervix 09/02/2018 HPV NEG LGSIL on Pap smear of cervix 04/2022 HPV NEG Other conditions influencing health status History of Prediabetes Raynaud's disease [2] Past Surgical History: Procedure Laterality Date CARDIAC CATHETERIZATION N/A 06/08/2023 Procedure: Mulvane Insertion; Surgeon: Cooper Garnett MD; Location: [place] [address] [facility]; Service: Cardiovascular; Laterality: N/A; swan repositioning, failed at bedside CARDIAC CATHETERIZATION N/A 06/07/2023 Procedure: Right Heart Cath; Surgeon: Akil Martinez MD; Location: [place] [address] [facility]; Service: Cardiovascular; Laterality: N/A; CARDIAC CATHETERIZATION N/A 06/07/2023 Procedure: Left & Right Heart Cath w Angiography & LV; Surgeon: Akil Martinez MD; Location: [place] [address] [facility]; Service: Cardiovascular; Laterality: N/A; CERVICAL BIOPSY W/ LOOP ELECTRODE EXCISION 08/17/2014 dr. temple COLPOSCOPY 05/13/20222014 MOUTH SURGERY [3] Family History Problem Relation Name Age of Onset No Known Problems Mother Osteoporosis Father Parkinsonism Mother's Sister Parkinsonism Maternal Grandmother Asthma Other Diabetes Other Hypertension Other Heart attack Other Cosigned by Antonio Hodge MD at 09/29/2024 8:37 AM EDT [facility] Work Phone: 09-29-2024 History and physical note History Of Present Illness Jayna Smith is a 38 y.o. female with a history of pulmonary HTN, Raynaud's disease, CREST syndrome, GERD, and HTN presenting for right heart catheterization. Patient currently established with Dr. Schumacher secondary to her pulmonary HTN who has requested updated RHC to re-address pressures and discuss initiation of sotatercept. Patient denies any chest pain/pressure/discomfort or shortness of breath. Past Medical History Medical History[1] Surgical History Surgical History[2] Social History She reports that she quit smoking about 18 months ago. Her smoking use included cigarettes. She started smoking about 3 years ago. She has a 1 pack-year smoking history. She has never used smokeless tobacco. She reports that she does not currently use alcohol. She reports current drug use. Drug: Marijuana. Family History Family History[3] Allergies Amlodipine Physical Exam General: awake, alert and oriented. No acute distress. HEENT: normocephalic, atraumatic; conjunctivae are clear without exudates or hemorrhage. Sclera is non-icteric. Eyelids are normal in appearance without swelling or lesions. Hearing intact. Nares are patent bilaterally. Moist mucous membranes. Cardiovascular: heart rate and rhythm are normal. No murmurs, gallops, or rubs are auscultated. S1 and S2 are heard and are of normal intensity. No JVD, no carotid bruits Respiratory: bilateral lung sounds clear to auscultations without rales, rhonchi, or wheezes. No accessory muscle use or stridor Extremities: edema to LLE; discoloration secondary to underlying venous insufficiency Neurological: no focal deficits; gait steady Psychiatric: appropriate mood and affect; good judgment and insight Last Recorded Vitals Blood pressure 103/68, pulse 59, temperature 36.9 C (98.4 F), temperature source Temporal, resp. rate 20, weight 64.5 kg (142 lb 3.2 oz). Relevant Results Assessment & Plan Pulmonary hypertension (Multi) Melissa Esquivel, [employer] SAL[employer]OCIATE-CUSTOMER ENGINEER, DNP [1] Past Medical History: Diagnosis Date Anxiety ASCUS of cervix with negative high risk HPV 06/2017 Chlamydial infection, unspecified Chlamydia Elevated LFTs 05/25/2022 GERD (gastroesophageal reflux disease) Immunization not carried out because of patient refusal Influenza vaccination declined LGSIL on Pap smear of cervix 2014 HPV + LGSIL on Pap smear of cervix 09/02/2018 HPV NEG LGSIL on Pap smear of cervix 04/2022 HPV NEG Other conditions influencing health status History of Prediabetes Raynaud's disease [2] Past Surgical History: Procedure Laterality Date CARDIAC CATHETERIZATION N/A 06/08/2023 Procedure: Mulvane Insertion; Surgeon: Cooper Garnett MD; Location: [place] [address] [facility]; Service: Cardiovascular; Laterality: N/A; swan repositioning, failed at bedside CARDIAC CATHETERIZATION N/A 06/07/2023 Procedure: Right Heart Cath; Surgeon: Akil Martinez MD; Location: [place] [address] [facility]; Service: Cardiovascular; Laterality: N/A; CARDIAC CATHETERIZATION N/A 06/07/2023 Procedure: Left & Right Heart Cath w Angiography & LV; Surgeon: Akil Martinez MD; Location: [place] [address] [facility]; Service: Cardiovascular; Laterality: N/A; CERVICAL BIOPSY W/ LOOP ELECTRODE EXCISION 08/17/2014 dr. temple COLPOSCOPY 05/13/20222014 MOUTH SURGERY [3] Family History Problem Relation Name Age of Onset No Known Problems Mother Osteoporosis Father Parkinsonism Mother's Sister Parkinsonism Maternal Grandmother Asthma Other Diabetes Other Hypertension Other Heart attack Other Cosigned by Antonio Hodge MD at 09/29/2024 8:37 AM EDT documented in this encounter [facility] Work Phone: 07-10-2024 History of Present illness Narrative Subjective Patient ID: Jayna Smith is a 38 y.o. female who presents for Follow-up (C/O R HAND/FINGER PAIN AND STIFFNESS. UNABLE TO EXTEND FINGERS FOR THE LAST YEAR) HPI Pt presents today for gen check up She has not been seen today in about 1 year She has been following with with specialists - Med check Pulm HTN - following with Dr Schumacher- every 3 months NYHA functional class 3 and who group 1 - following with cardio Raynauds, CREST - she is noting struggling with hand/finger coordination over the past year - R hand 2nd and third finger anxiety - no longer on buspar GERD - tums prn - rare HTN -on aldactone off lisinopril - home readings are good raynauds - stable allergies - on loratadine varicose veins- denies pain and denies using romaine hose often - following with cardio Preventative Testing mammo suggest age 38 PAP - Dr Carter June 2023 DEXA -suggest age 48 colonoscopy - suggest colonoscopy at age 43 PHQ2 Depression screen - NEG July 2024 Fall - Neg July 2024 Tobacco - quit Mar 2023 for a few days - cont to vape - trying to avoid buying more cig if possible Problem List[1] Review of Systems Constitutional: Negative for chills, fatigue and fever. HENT: Negative for congestion, rhinorrhea, sinus pain, sore throat and tinnitus. Eyes: Negative for discharge, redness and visual disturbance. Respiratory: Negative for cough, chest tightness, shortness of breath and wheezing. Cardiovascular: Negative for chest pain, palpitations and leg swelling. Gastrointestinal: Negative for abdominal pain, constipation, diarrhea, nausea and vomiting. Endocrine: Negative for cold intolerance and heat intolerance. Genitourinary: Negative for flank pain, frequency and urgency. Musculoskeletal: Positive for arthralgias. Negative for back pain, gait problem and neck pain. Skin: Negative for rash and wound. Neurological: Negative for dizziness, tremors, syncope, numbness and headaches. Hematological: Does not bruise/bleed easily. Psychiatric/Behavioral: Negative for confusion, sleep disturbance and suicidal ideas. Medical History[2] Surgical History[3] Family History[4] Social History[5] Allergies[6] Current Medications[7] Objective BP 107/74 Pulse 60 Ht 1.727 m (5' 8) Wt 69.3 kg (152 lb 12.8 oz) BMI 23.23 kg/m Physical Exam Vitals reviewed. Constitutional: Appearance: Normal appearance. She is normal weight. HENT: Head: Normocephalic. Right Ear: External ear normal. Left Ear: External ear normal. Nose: Nose normal. No congestion or rhinorrhea. Mouth/Throat: Mouth: Mucous membranes are moist. Eyes: Extraocular Movements: Extraocular movements intact. Conjunctiva/sclera: Conjunctivae normal. Pupils: Pupils are equal, round, and reactive to light. Cardiovascular: Rate and Rhythm: Normal rate and regular rhythm. Pulses: Normal pulses. Pulmonary: Effort: Pulmonary effort is normal. Breath sounds: Normal breath sounds. Abdominal: General: Bowel sounds are normal. Palpations: Abdomen is soft. Tenderness: There is no abdominal tenderness. There is no right CVA tenderness or left CVA tenderness. Musculoskeletal: General: Tenderness present. Normal range of motion. Cervical back: Normal range of motion and neck supple. No tenderness. Comments: R hand 2nd and 3rd finger - stiff = more in contracture. Consider dupyentren but I question if this is secondary to rayndauds and infection Skin: General: Skin is warm and dry. Neurological: General: No focal deficit present. Mental Status: She is alert and oriented to person, place, and time. Psychiatric: Mood and Affect: Mood normal. Behavior: Behavior normal. Testing Reviewed labs on file Impression MDM 1) COMPLEXITY: 1 UNDIAGNOSED NEW PROBLEM WITH UNCERTAIN PROGNOSIS 2)DATA: TESTS INTERPRETED AND OR ORDERED, TOOK INDEPENDENT HISTORY OR RECORDS REVIEWED 3)RISK: MODERATE RISK DUE TO NATURE OF MEDICAL CONDITIONS/COMORBIDITY OR MEDICATIONS ORDERED OR SURGICAL OR PROCEDURE REFERRAL, . Reviewed labs and Testing on file Patient to follow diet low in cholesterol, fat, and sodium. Patient is advised to increase Exercise. Patient is recommended to lose weight. Reviewed Meds and discussed common side effects Continue as directed Hand/finger - set up OT but consider need for ortho Patient is strongly advised to be compliant with recommendations. Return to Clinic sooner if needed. Patient denies further questions/concerns at this time Assessment/Plan Problem List Items Addressed This Visit ICD-10-CM Chronic renal insufficiency, stage III (moderate) (Multi) N18.30 Hypertension associated with diabetes E11.59, I15.2 Controlled type 2 diabetes mellitus with hyperglycemia, without long-term current use of insulin E11.65 Relevant Orders Hemoglobin A1c Raynauds disease I73.00 Seasonal allergies J30.2 Pulmonary hypertension (Multi) I27.20 Other Visit Diagnoses Codes Decreased finger strength - Primary R29.898 Relevant Orders Referral to Occupational Therapy Low HDL (under 40) E78.6 Relevant Orders Lipid Panel Thyroid Stimulating Hormone Thyroxine, Free FU in 1-2 mo with hand check Referral to OT [1] Patient Active Problem List Diagnosis Abnormal uterine bleeding (AUB) BPPV (benign paroxysmal positional vertigo) Cervix dysplasia Chronic renal insufficiency, stage III (moderate) (Multi) Dysplasia of cervix, low grade ([place] 1) Hypertension associated with diabetes ELIZABETH (generalized anxiety disorder) GERD (gastroesophageal reflux disease) Controlled type 2 diabetes mellitus with hyperglycemia, without long-term current use of insulin Hemiplegic migraine Hypertriglyceridemia Leg edema Lesion of left ovary Low serum HDL Motion sickness Ovarian cyst, complex Pain of left lower extremity Raynauds disease Sacroiliac joint dysfunction of left side Seasonal allergies Varicose veins of legs Wound of left ankle Amenorrhea Vaginal lesion Elevated red blood cell count Non-healing wound of lower extremity Non-healing wound of upper extremity Finger ulcer (Multi) Overweight (BMI 25.0-29.9) History of ovarian cyst Elevated ferritin Pulmonary hypertension (Multi) Severe tricuspid regurgitation by prior echocardiogram Non-pressure chronic ulcer of left lower leg with fat layer exposed (Multi) Cellulitis Cigarette nicotine dependence in remission [2] Past Medical History: Diagnosis Date Anxiety ASCUS of cervix with negative high risk HPV 06/2017 Chlamydial infection, unspecified Chlamydia Elevated LFTs 05/25/2022 GERD (gastroesophageal reflux disease) Immunization not carried out because of patient refusal Influenza vaccination declined LGSIL on Pap smear of cervix 2014 HPV + LGSIL on Pap smear of cervix 09/02/2018 HPV NEG LGSIL on Pap smear of cervix 04/2022 HPV NEG Other conditions influencing health status History of Prediabetes Raynaud's disease [3] Past Surgical History: Procedure Laterality Date CARDIAC CATHETERIZATION N/A 06/08/2023 Procedure: Mulvane Insertion; Surgeon: Cooper Garnett MD; Location: [place] [address] [facility]; Service: Cardiovascular; Laterality: N/A; swan repositioning, failed at bedside CARDIAC CATHETERIZATION N/A 06/07/2023 Procedure: Right Heart Cath; Surgeon: Akil Martinez MD; Location: [place] [address] [facility]; Service: Cardiovascular; Laterality: N/A; CARDIAC CATHETERIZATION N/A 06/07/2023 Procedure: Left & Right Heart Cath w Angiography & LV; Surgeon: Akil Martinez MD; Location: [place] [address] [facility]; Service: Cardiovascular; Laterality: N/A; CERVICAL BIOPSY W/ LOOP ELECTRODE EXCISION 08/17/2014 dr. temple COLPOSCOPY 05/13/20222014 MOUTH SURGERY [4] Family History Problem Relation Name Age of Onset No Known Problems Mother Osteoporosis Father Parkinsonism Mother's Sister Parkinsonism Maternal Grandmother Asthma Other Diabetes Other Hypertension Other Heart attack Other [5] Social History Tobacco Use Smoking status: Former Current packs/day: 0.00 Average packs/day: 0.5 packs/day for 2.0 years (1.0 ttl pk-yrs) Types: Cigarettes Start date: 03/30/2021 Quit date: 03/30/2023 Years since quittin.2 Smokeless tobacco: Never Vaping Use Vaping status: Every Day Substances: Nicotine, THC, CBD, Flavoring Devices: Disposable Substance Use Topics Alcohol use: Not Currently Comment: RARE Drug use: Yes Types: Marijuana Comment: occassionally [6] Allergies Allergen Reactions Amlodipine Swelling [7] Current Outpatient Medications Medication Sig Dispense Refill acetaminophen (Tylenol) 500 mg tablet take 1 tablet by mouth every 6 hours if needed for headache 30 tablet 3 ambrisentan (Letairis) 5 mg tablet Take 1 tablet (5 mg) by mouth once daily. ammonium lactate (Amlactin) 12 % cream Apply topically if needed. amoxicillin-clavulanate (Augmentin) 875-125 mg tablet Take 1 tablet by mouth 2 times a day for 10 days. Take with a meal. 20 tablet 0 digoxin (Lanoxin) 125 MCG tablet Take 1 tablet (125 mcg) by mouth once daily. 90 tablet 11 fluticasone (Flonase) 50 mcg/actuation nasal spray Administer 2 sprays into each nostril once daily as needed for rhinitis. Shake gently. Before first use, prime pump. After use, clean tip and replace cap. 16 g 6 loperamide (Imodium) 2 mg capsule Take 1 capsule (2 mg) by mouth 4 times a day as needed for diarrhea. 30 capsule 11 loratadine (Claritin) 10 mg tablet Take 1 tablet (10 mg) by mouth once daily. spironolactone (Aldactone) 25 mg tablet Take 1 tablet (25 mg) by mouth once daily. 30 tablet 11 tadalafil (Cialis) 20 mg tablet Take 2 tablets (40 mg) by mouth once daily. 60 tablet 11 treprostinil 10 mg/mL solution 10 mg/mL, empty bag/syringe unknown 1 each Inject 9 ng/kg/min under the skin continuously. No current facility-administered medications for this visit. documented in this encounter [facility] Work Phone: 07-04-2024 History of Present illness Narrative [facility] Yesenia WildeYOUNG-PRISCA Visit Note - 07/04/2024 5:12 PM This note was generated with voice recognition software and may contain errors including spelling, grammar, syntax, and misrecognization of what was dictated. Patient: Jayna Smith, , 38 y.o., female PCP: Rajendra Foley PA-C - ALLERGIES: Allergies[1] CURRENT MEDICATIONS: Current Outpatient Medications Medication Instructions acetaminophen (TYLENOL) 500 mg, oral, Every 6 hours PRN amoxicillin-clavulanate (Augmentin) 875-125 mg tablet 1 tablet, oral, 2 times daily, Take with a meal. digoxin (LANOXIN) 125 mcg, oral, Daily fluticasone (Flonase) 50 mcg/actuation nasal spray 2 sprays, Each Nostril, Daily PRN, Shake gently. Before first use, prime pump. After use, clean tip and replace cap. loperamide (IMODIUM) 2 mg, oral, 4 times daily PRN spironolactone (ALDACTONE) 25 mg, oral, Daily tadalafil 40 mg, oral, Daily treprostinil 10 mg/mL solution 10 mg/mL, empty bag/syringe unknown 1 each 9 ng/kg/min, Continuous - PAST MEDICAL HX: Problem List[2] SURGICAL HX: Surgical History[3] FAMILY HX: No pertinent history. SOCIAL HX: reports that she quit smoking about 15 months ago. Her smoking use included cigarettes. She started smoking about 3 years ago. She has a 1 pack-year smoking history. She has never used smokeless tobacco. - CHIEF COMPLAINT: Chief Complaint Patient presents with Dental Pain Left side bottom dental pain x 2 days HISTORY OF PRESENT ILLNESS: The history was obtained from patient. Jayna is a 38 y.o. female, who presents with a chief complaint of dental pain that started 2 days ago. Reports jaw seems a little swollen where the tooth seems to be infected. Denies any fever, chills, body aches, changes in mental status, malaise, fatigue, vomiting, sinus congestion/pain, sore throat, headaches, or other symptoms. Has been eating and drinking normally, but reports has pain with eating and drinking. Reports has a history of dental infection and dental issues (has several broken teeth and cavities - planning to have all her teeth pulled sometime in the future) - has appt with dentist on 07/25/24. Has been taking Tylenol without much relief. Is a former smoker. Has history of Type 2 Dm, pulmonary HTN, Stage 3 CKD, Raynauds, Syndrome, and CREST syndrome. REVIEW OF SYSTEMS: 10 systems reviewed negative with exception of history of present illness as listed above. TODAY'S VITALS: BP 123/85 Pulse 67 Temp 36.4 C (97.6 F) Resp 18 Ht 1.727 m (5' 8) Wt 69.9 kg (154 lb) SpO2 96% BMI 23.42 kg/m PHYSICAL EXAMINATION: General: Pleasant female, alert and oriented, in no acute distress. Sitting comfortably on exam chair. Eyes: Pupils are equal, round and reactive. No conjunctival erythema or exudate to eyes noted. HENT: Normocephalic; No sinus tenderness, and no maxillary edema, but has visible, mild edema noted to lower jawline on L side. Mucous membranes moist. No oral lesions; posterior pharynx unremarkable. Able to swallow/manage oral secretions without difficulty. Has poor dentition, with multiple missing and broken teeth with severe dental caries. Gumline above tooth #19 which is broken and has severe decay (L side, lower jaw) moderately swollen, erythematous, and tender to palpation. No fluctuance or visible pointing to the area. No active drainage. Neck: Supple; Tender, mobile high anterior cervical lymphadenopathy bilat. Respiratory: Respirations are easy and non-labored, with normal rate. Symmetrical chest wall expansion. Lungs are clear to auscultation - no wheezing, rhonchi, or rales. Cardiovascular: Normal rate, Regular rhythm. Normal S1S2. No m/r/g. Integumentary: [place], warm, dry, and Intact. Normal skin turgor; no rashes appreciated. Good pulses/perfusion. Neurologic: Alert, Oriented, Sensory and motor function grossly intact for age. Cognition and Speech: Oriented; Speech clear and coherent Psychiatric: Cooperative, Appropriate mood & affect. - Medical Decision Making LABORATORY or RADIOLOGICAL IMAGING ORDERS/RESULTS: None IMPRESSION/PLAN: Course: Worsening; stable 1. Dental infection (Primary) - amoxicillin-clavulanate (Augmentin) 875-125 mg tablet; Take 1 tablet by mouth 2 times a day for 10 days. Take with a meal. Dispense: 20 tablet; Refill: 0 No red flags on exam, but will need close monitoring; No evidence of drainable abscess or of Damian Angina at this time. Will begin antibiotic treatment for dental infection today (Augmentin BID x 10 days), but stressed importance of following up with dental clinic, as without intervention, infection can continue to reoccur. Urged to complete full course of treatment, even if symptoms resolve more quickly. Encouraged to rest, to push fluids, and to continue tylenol PRN for discomfort. Should avoid NSAIDs in light of her CKD. Warm salt water gargles and cool compresses may be helpful. Reviewed red flags to monitor for, expectations for resolution of infection, instructions and common side effects of treatment, and encouraged to RTC or see PCP/dentist if symptoms not improving over the next 24-48 hours, or to seek care sooner if sxs worsen/any red flags develop. Should also contact dentist JOHNNIE to let them know that antibiotic treatment was started, and to make plan for follow up - she currently has an appt scheduled for 07/25/24. Patient seems satisfied and agrees with plan of care; questions were encouraged and answered. Yesenia Wilde APRN-CUSTOMER ENGINEER Advanced Practice Provider [facility] [1] Allergies Allergen Reactions Amlodipine Swelling [2] Patient Active Problem List Diagnosis Abnormal uterine bleeding (AUB) BPPV (benign paroxysmal positional vertigo) Cervix dysplasia Chronic renal insufficiency, stage III (moderate) (Multi) Dysplasia of cervix, low grade ([place] 1) Hypertension associated with diabetes ELIZABETH (generalized anxiety disorder) GERD (gastroesophageal reflux disease) Controlled type 2 diabetes mellitus with hyperglycemia, without long-term current use of insulin Hemiplegic migraine Hypertriglyceridemia Leg edema Lesion of left ovary Low serum HDL Motion sickness Ovarian cyst, complex Pain of left lower extremity Raynauds disease Sacroiliac joint dysfunction of left side Seasonal allergies Varicose veins of legs Wound of left ankle Amenorrhea Vaginal lesion Elevated red blood cell count Non-healing wound of lower extremity Non-healing wound of upper extremity Finger ulcer (Multi) Overweight (BMI 25.0-29.9) History of ovarian cyst Elevated ferritin Pulmonary hypertension (Multi) Severe tricuspid regurgitation by prior echocardiogram Non-pressure chronic ulcer of left lower leg with fat layer exposed (Multi) Cellulitis Cigarette nicotine dependence in remission [3] Past Surgical History: Procedure Laterality Date CARDIAC CATHETERIZATION N/A 06/08/2023 Procedure: Mulvane Insertion; Surgeon: Cooper Garnett MD; Location: [place] [address] [facility]; Service: Cardiovascular; Laterality: N/A; swan repositioning, failed at bedside CARDIAC CATHETERIZATION N/A 06/07/2023 Procedure: Right Heart Cath; Surgeon: Akil Martinez MD; Location: [place] [address] [facility]; Service: Cardiovascular; Laterality: N/A; CARDIAC CATHETERIZATION N/A 06/07/2023 Procedure: Left & Right Heart Cath w Angiography & LV; Surgeon: Akil Martinez MD; Location: [place] [address] [facility]; Service: Cardiovascular; Laterality: N/A; CERVICAL BIOPSY W/ LOOP ELECTRODE EXCISION 08/17/2014 dr. tempel COLPOSCOPY 05/13/20222014 MOUTH SURGERY documented in this encounter [facility] Work Phone: 05-27-2024 History of Present illness Narrative History Of Present Illness Jayna Smith is a 38 y.o. female presenting with pulmonary hypertension. Patient was hospitalized at [facility] from 06/06/2023-06/26/2023. Originally presented as a transfer from [facility] for severe pulmonary hypertension and tricuspid regurgitation. Pt initially presented on 06/02 for left leg pain and swelling and concern for cellulitis 04/13 to a chronic anterior left leg wound and recent surgical debridement. She was admitted to [facility] on 06/03 for IV antibiotic management. Noted to have a new murmur and cardiology was consulted as a TTE on 04/08/23 revealed a dilated RA and elevated RVSP with severe TR (full report below). She was recommended to follow-up with cardiology outpatient, however does not appear that this occurred. Repeat TTE on 06/05 revealed similar findings and she was transferred to [facility] for further evaluation and management of right heart failure/pulm htn. Pulmonary hypertension specialist, Dr Schumacher, Advanced Heart Failure team, and Rheumatology were consulted. Patient received autoimmune workup which was significant for positive NICOLE and anti-centromere antibodies. 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 Rheumatology confirmed no current indication for immunosuppression therapy. Patient started on PPI for GERD, a common associated symptom of CREST. Patient underwent left and right heart cath with Mulvane catheter placement. Additionally patient with CT PE negative for ILD or acute PE. V/Q scan not concerning for CTEPH. 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 Patient started on inhaled Nitric Oxide and dobutamine drip while titrating Veletri. Patient weaned off of nitric oxide and dobutamine. Patient is NYHA Functional Class 3 and WHO Group 1. Last office visit was virtual on 04/23/2023. PAH Treatment: Remodulin, 18 ng/kg/min, 1.9 ml/hr, concentration 0.05 mg/ml (06/11/2023) Tadalafil (02/21/2024-02/27/2024) stopped due to headaches (04/15/2023 restart) Ambrisentan (05/06/2024) Infusion site: [place], clean, dry and intact Treatment history: Orenitram (04/23/2024) Now declining transition) Testing today includes: done prior to visit Virtual or Telephone Consent An interactive audio and video telecommunication system which permits real time communications between the patient (at the originating site) and provider (at the distant site) was utilized to provide this telehealth service. Verbal consent was requested and obtained from Jayna Smith on this date, 05/27/24 for a telehealth visit and the patient's location was confirmed at the time of the visit. Interval History Has had stuffy nose for one week. Says she is able to walk more around stores and doing more chores around the house. SOB has improved, patient stating she does not feel SOB any longer. LLE edema concentrated around ankle. Very rare lightheadedness and dizziness at rest and with movement that is self resolving. Since last visit, has started ambrisentan to complete triple therapeutic regimen for PAH. Past Medical History Patient Active Problem List Diagnosis Abnormal uterine bleeding (AUB) BPPV (benign paroxysmal positional vertigo) Cervix dysplasia Chronic renal insufficiency, stage III (moderate) (Multi) Dysplasia of cervix, low grade ([place] 1) Hypertension associated with diabetes (Multi) ELIZABETH (generalized anxiety disorder) GERD (gastroesophageal reflux disease) Controlled type 2 diabetes mellitus with hyperglycemia, without long-term current use of insulin Hemiplegic migraine Hypertriglyceridemia Leg edema Lesion of left ovary Low serum HDL Motion sickness Ovarian cyst, complex Pain of left lower extremity Raynauds disease Sacroiliac joint dysfunction of left side Seasonal allergies Varicose veins of legs Wound of left ankle Amenorrhea Vaginal lesion Elevated red blood cell count Non-healing wound of lower extremity Non-healing wound of upper extremity Finger ulcer (Multi) Overweight (BMI 25.0-29.9) History of ovarian cyst Elevated ferritin Pulmonary hypertension (Multi) Severe tricuspid regurgitation by prior echocardiogram Non-pressure chronic ulcer of left lower leg with fat layer exposed (Multi) Cellulitis Cigarette nicotine dependence in remission Surgical History She has a past surgical history that includes Cervical biopsy w/ loop electrode excision (08/17/2014); Colposcopy (05/13/2022); Mouth surgery; Cardiac catheterization (N/A, 06/08/2023); Cardiac catheterization (N/A, 06/07/2023); and Cardiac catheterization (N/A, 06/07/2023). Social History She reports that she quit smoking about 13 months ago. Her smoking use included cigarettes. She started smoking about 3 years ago. She has a 1 pack-year smoking history. She has never used smokeless tobacco. She reports that she does not currently use alcohol. She reports current drug use. Drug: Marijuana. Family History Family History Problem Relation Name Age of Onset No Known Problems Mother Osteoporosis Father Parkinsonism Mother's Sister Parkinsonism Maternal Grandmother Asthma Other Diabetes Other Hypertension Other Heart attack Other Medications Current Outpatient Medications: acetaminophen (Tylenol) 500 mg tablet, Take 1 tablet (500 mg) by mouth every 6 hours if needed for headaches., Disp: 30 tablet, Rfl: 0 digoxin (Lanoxin) 125 MCG tablet, Take 1 tablet (125 mcg) by mouth once daily., Disp: 90 tablet, Rfl: 11 ibuprofen 200 mg tablet, Take 3 tablets (600 mg) by mouth every 6 hours., Disp: 360 tablet, Rfl: 0 loperamide (Imodium A-D) 2 mg tablet, Take 0.5 tablets (1 mg) by mouth once daily. Or as directed. (Patient not taking: Reported on 04/23/2024), Disp: 30 tablet, Rfl: 11 loperamide (Imodium) 2 mg capsule, Take 1 capsule (2 mg) by mouth 4 times a day as needed for diarrhea., Disp: 30 capsule, Rfl: 11 spironolactone (Aldactone) 25 mg tablet, Take 1 tablet (25 mg) by mouth once daily., Disp: 30 tablet, Rfl: 11 tadalafil (Cialis) 20 mg tablet, Take 2 tablets (40 mg) by mouth once daily., Disp: 60 tablet, Rfl: 11 tadalafil (tadalafil, antihypertensive,) 20 mg tablet, Take 2 tablets (40 mg) by mouth once daily. (Patient not taking: Reported on 04/23/2024), Disp: 60 tablet, Rfl: 11 treprostinil 10 mg/mL solution 10 mg/mL, empty bag/syringe unknown 1 each, Inject 9 ng/kg/min under the skin continuously., Disp: , Rfl: Allergies Amlodipine Review of Systems Constitutional: Positive for activity change. Negative for appetite change, chills, fatigue, fever and unexpected weight change. HENT: Negative. Eyes: Negative. Respiratory: Negative for cough, chest tightness, shortness of breath and wheezing. Cardiovascular: Positive for palpitations. Negative for chest pain and leg swelling. Gastrointestinal: Negative. Negative for abdominal distention, abdominal pain, constipation, diarrhea, nausea and vomiting. Endocrine: Negative. Genitourinary: Negative. Musculoskeletal: Negative. Skin: Negative. Allergic/Immunologic: Negative. Neurological: Positive for dizziness and light-headedness. Negative for syncope. Hematological: Negative. Psychiatric/Behavioral: Negative. Last Recorded Vitals There were no vitals taken for this visit. Appears well, no distress during virtual visit. Relevant Results 6MWT (04/21/2024) PN59-94-44% on RA HR-72-105 STEVAN-n/a Actual Meters- 548 6MWT (02/12/2024) SP02- 95-89 % RA HR-65-94 STEVAN-0-4 Actual Meters- 594 m Echo (02/05/2024) [facility] Left Ventricle: Left ventricular ejection fraction is normal, by visual estimate at 60%. There are no regional wall motion abnormalities. The left ventricular cavity size is decreased. There is moderately increased septal and normal posterior left ventricular wall thickness. There is left ventricular concentric remodeling. Spectral Doppler shows a normal pattern of left ventricular diastolic filling. Left Atrium: The left atrium is normal in size. A bubble study using agitated saline was not performed. Right Ventricle: The right ventricle is severely enlarged. There is severely reduced right ventricular systolic function. Right Atrium: The right atrium is moderately to severely dilated. Aortic Valve: The aortic valve is trileaflet. The aortic valve dimensionless index is 0.84. There is no evidence of aortic valve regurgitation. The peak instantaneous gradient of the aortic valve is 6 mmHg. The mean gradient of the aortic valve is 3 mmHg. Mitral Valve: The mitral valve is normal in structure. There is no evidence of mitral valve regurgitation. Tricuspid Valve: The tricuspid valve is structurally normal. There is severe tricuspid regurgitation. The Doppler estimated RVSP is severely elevated at 144.1 mmHg. Pulmonic Valve: The pulmonic valve is structurally normal. There is moderate to severe pulmonic valve regurgitation. Pericardium: Trivial pericardial effusion. Aorta: The aortic root is normal. Pulmonary Artery: The Doppler estimated pulmonary artery diastolic pressure is 18.7 mmHg. CONCLUSIONS: 1. Left ventricular ejection fraction is normal, by visual estimate at 60%. 2. Left ventricular cavity size is decreased. 3. There is severely reduced right ventricular systolic function. 4. Severely enlarged right ventricle. 5. The right atrium is moderately to severely dilated. 6. Severe tricuspid regurgitation. 7. Severely elevated right ventricular systolic pressure. 8. Moderate to severe pulmonic valve regurgitation. 9. There is moderately increased septal thickness. NM lung perfusion scan (06/07/2023) IMPRESSION: There are nonspecific non-segmental/subsegmental perfusion defects and marked heterogeneity in both lungs corresponding to intermediate probability for pulmonary embolism. Additionally, chronic PE versus multifocal airway disease not entirely excluded. LHC/RHC (06/08/2023) PAP: 91/41(59) PWP: 22 CO/CI: 3.6/1.8 CONCLUSIONS: 1. Normal coronary arteries in a right dominant system. 2. Normal left ventricular systolic function. 3. Severe pulmonary hypertension. CT Chest for PE (06/07/2023) IMPRESSION: 1. No evidence of acute pulmonary embolism. 2. Findings compatible with history of pulmonary hypertension and elevated right-sided heart pressures including dilated main pulmonary artery, asymmetric enlargement of the right atrium and ventricle, and reflux of contrast into the IVC. 3. Focal area of tree-in-bud nodularity in the right lower lobe is consistent with an infectious or inflammatory bronchiolitis. 4. Diffuse mosaic attenuation which is most likely on the basis of small vessels disease given known pulmonary hypertension. Underlying small airways/reactive airways disease is a differential consideration in the appropriate clinical setting 5. Please see separately dictated concurrent CT abdomen pelvis. Echo (06/06/2023) [facility] PHYSICIAN INTERPRETATION: Left Ventricle: Left ventricular systolic function is normal, with an estimated ejection fraction of 65%. There are no regional wall motion abnormalities. The left ventricular cavity size is normal. There is mild left ventricular hypertrophy. Spectral Doppler shows an impaired relaxation pattern of left ventricular diastolic filling. Left Atrium: The left atrium is normal in size. Right Ventricle: The right ventricle is severely enlarged. There is severely reduced right ventricular systolic function. Right Atrium: The right atrium is severely dilated. Aortic Valve: The aortic valve is trileaflet. There is no evidence of aortic valve regurgitation. The peak instantaneous gradient of the aortic valve is 3.4 mmHg. The mean gradient of the aortic valve is 2.0 mmHg. Mitral Valve: The mitral valve is normal in structure. There is no evidence of mitral valve regurgitation. Tricuspid Valve: The tricuspid valve is structurally normal. There is severe tricuspid regurgitation. Pulmonic Valve: The pulmonic valve is structurally normal. There is moderate pulmonic valve regurgitation. Pericardium: There is a small pericardial effusion. Aorta: The aortic root is normal. Systemic Veins: The inferior vena cava appears dilated. There is less than 50% IVC collapse with inspiration. CONCLUSIONS: 1. Left ventricular systolic function is normal with a 65% estimated ejection fraction. 2. Spectral Doppler shows an impaired relaxation pattern of left ventricular diastolic filling. 3. D-shaped septum in systole and diastole consistent with right ventricular pressure and volume overload. 4. Severely enlarged right ventricle. 5. There is severely reduced right ventricular systolic function. 6. The right atrium is severely dilated. 7. Severe tricuspid regurgitation. 8. Moderate pulmonic valve regurgitation. 9. Calculated pulmonary artery systolic pressure is 97 mmHg, consistent with pulmonary hypertension. 10. Ascites is incidentally noted. Recommend dedicated imaging. 11. Small pericardial effusion with no evidence of hemodynamic compromise. 12. Overall findings appear consistent with significant pulmonary hypertension, with signs of right ventricular dysfunction. 13. Findings appear similar to prior echocardiogram dated 04/09/2023. Echo (04/09/2023) [facility] PHYSICIAN INTERPRETATION: Left Ventricle: Left ventricular systolic function is normal, with an estimated ejection fraction of 60%. There are no regional wall motion abnormalities. The left ventricular cavity size is normal. There is moderate concentric left ventricular hypertrophy. Spectral Doppler shows an impaired relaxation pattern of left ventricular diastolic filling. Left Atrium: The left atrium is normal in size. Right Ventricle: The right ventricle is moderately enlarged. There is reduced right ventricular systolic function. Right Atrium: The right atrium is severely dilated. Aortic Valve: The aortic valve is trileaflet. There is no evidence of aortic valve regurgitation. The peak instantaneous gradient of the aortic valve is 3.9 mmHg. The mean gradient of the aortic valve is 2.0 mmHg. Mitral Valve: The mitral valve is normal in structure. There is no evidence of mitral valve regurgitation. Tricuspid Valve: The tricuspid valve is structurally normal. There is severe tricuspid regurgitation. RV-RA gradient 102mm Hg. Pulmonic Valve: The pulmonic valve is not well visualized. There is mild pulmonic valve regurgitation. Pericardium: There is a small pericardial effusion. Aorta: The aortic root is normal. Systemic Veins: The inferior vena cava appears dilated. There is less than 50% IVC collapse with inspiration. CONCLUSIONS: 1. Left ventricular systolic function is normal with a 60% estimated ejection fraction. 2. Spectral Doppler shows an impaired relaxation pattern of left ventricular diastolic filling. 3. There is moderate concentric left ventricular hypertrophy. 4. Enlarged right ventricle with reduced systolic function. 5. D-shaped septum in systole and diastole, consistent with right ventricular pressure and volume overload. 6. Severe tricuspid regurgitation. 7. The right atrium is severely dilated. 8. Calculated right ventricular systolic pressure is 117mm Hg. 9. Small pericardial effusion with no echocardiographic evidence of tamponade. 10. Consult team informed of findings. 11. Findings are consistent with severe Pulmonary Hypertension; presence of pericardial effusion and RV systolic dysfunction are high-risk markers. Assessment/Plan 1) PAH associated with CREST. Failure to achieve goal of therapy with poor prognosis. Plan 1) Patient aware of warnings, Patient enrolled in REMS and monthly testing, agrees and understands. 2) Will continue tadalafil, ambrisentan and IV remodulin, imodium. 3) Interval uptitration as aggressively as allowed by symptoms. 4) Echo and follow up 3 months. documented in this encounter [facility] Work Phone: 05-12-2024 History of Present illness Narrative Images from the original note were not included. Advanced Heart Failure Clinic Note CHIEF COMPLAINT: No chief complaint on file. Primary Care Physician: Rajendra Foley PA-C Referring Provider: Endy Scout Sniper Gio Shipman HISTORY OF PRESENT ILLNESS: Jayna Smith is a 38 y.o. female with pulmonary arterial hypertension/RV failure who presents to [facility] care (by Video) Briefly patient has history of Raynauds but only diagnosed with pulmonary hypertension in early 2023 when she presented with lower extremity cellulitis at this point she already had severe RV dilation and a pericardial effusion, she was later readmitted and [place] [facility] heart catheterization showing severe pulmonary hypertension was initiated on treprostinil workup at that time also included a VQ scan which was negative, discharge she was placed on digoxin she has a difficulty making her way back to [facility] but does endorse that improved functional status after starting on prostacyclin Other medical problems include CREST syndrome, causing Raynaud's heartburn and dysphagia, cleared hepatitis C, she has a history of multiple episodes of cellulitis but those are more recently improved she reports a distant history of DVT and a positive PF4 antibody but ruled out for HIT, borderline diabetes Over the course of the last 12 months she is continue to follow-up primarily by phone/video and her remodeling has been increased from 9 to 18, she was also recently initiated on tadalafil about a month ago which did cause some headaches but they are improved with taking the tadalafil in the evening and Ambrisentan about 2 weeks ago, she had recent lab work showing a nondetectable digoxin level and endorses frequent missed doses of medicine but states she has been doing much better since her last remote visit with Dr. Mckenzie She doesn't remember ever taking a diuretic, she does report some chronic lower extremity edema abdominal bloating but no orthopnea. Currently has stopped cigarettes for over a year but continues to vape has history of intermittent marijuana use, no family She currently feels more energy and can do more things around the house, she has to go very slow up the stairs, and tries to limit. Denies dizziness/syncope, but did have near syncope prior to most recent medication changes. No plan for routine labs, current goes to lab in Feels much better over the past few weeks appetite is okay Monitors/restricts salt/fluid : pretty good Has scale and weighs self daily: gained about 20 pounds since initial discharge but stable more recently Has BP cuff and BPs at home: not really, BP 120/88 at 6mw Allergies Allergen Reactions Amlodipine Swelling CURRENT MEDICATIONS: Current Outpatient Medications Medication Sig Dispense Refill acetaminophen (Tylenol) 500 mg tablet Take 1 tablet (500 mg) by mouth every 6 hours if needed for headaches. 30 tablet 0 digoxin (Lanoxin) 125 MCG tablet Take 1 tablet (125 mcg) by mouth once daily. 90 tablet 11 ibuprofen 200 mg tablet Take 3 tablets (600 mg) by mouth every 6 hours. 360 tablet 0 loperamide (Imodium A-D) 2 mg tablet Take 0.5 tablets (1 mg) by mouth once daily. Or as directed. (Patient not taking: Reported on 04/23/2024) 30 tablet 11 loperamide (Imodium) 2 mg capsule Take 1 capsule (2 mg) by mouth 4 times a day as needed for diarrhea. 30 capsule 11 tadalafil (Cialis) 20 mg tablet Take 2 tablets (40 mg) by mouth once daily. 60 tablet 11 tadalafil (tadalafil, antihypertensive,) 20 mg tablet Take 2 tablets (40 mg) by mouth once daily. (Patient not taking: Reported on 04/23/2024) 60 tablet 11 treprostinil 10 mg/mL solution 10 mg/mL, empty bag/syringe unknown 1 each Inject 9 ng/kg/min under the skin continuously. No current facility-administered medications for this visit. Objective Problems: Patient Active Problem List Diagnosis Abnormal uterine bleeding (AUB) BPPV (benign paroxysmal positional vertigo) Cervix dysplasia Chronic renal insufficiency, stage III (moderate) (Multi) Dysplasia of cervix, low grade (HENRIETTA 1) Hypertension associated with diabetes (Multi) ELIZABETH (generalized anxiety disorder) GERD (gastroesophageal reflux disease) Controlled type 2 diabetes mellitus with hyperglycemia, without long-term current use of insulin Hemiplegic migraine Hypertriglyceridemia Leg edema Lesion of left ovary Low serum HDL Motion sickness Ovarian cyst, complex Pain of left lower extremity Raynauds disease Sacroiliac joint dysfunction of left side Seasonal allergies Varicose veins of legs Wound of left ankle Amenorrhea Vaginal lesion Elevated red blood cell count Non-healing wound of lower extremity Non-healing wound of upper extremity Finger ulcer (Multi) Overweight (BMI 25.0-29.9) History of ovarian cyst Elevated ferritin Pulmonary hypertension (Multi) Severe tricuspid regurgitation by prior echocardiogram Non-pressure chronic ulcer of left lower leg with fat layer exposed (Multi) Cellulitis Medical History: Past Medical History: Diagnosis Date Anxiety ASCUS of cervix with negative high risk HPV 06/2017 Chlamydial infection, unspecified Chlamydia Elevated LFTs 05/25/2022 GERD (gastroesophageal reflux disease) Immunization not carried out because of patient refusal Influenza vaccination declined LGSIL on Pap smear of cervix 2014 HPV + LGSIL on Pap smear of cervix 09/02/2018 HPV NEG LGSIL on Pap smear of cervix 04/2022 HPV NEG Other conditions influencing health status History of Prediabetes Raynaud's disease has a past medical history of Anxiety, ASCUS of cervix with negative high risk HPV (06/2017), Chlamydial infection, unspecified, Elevated LFTs (05/25/2022), GERD (gastroesophageal reflux disease), Immunization not carried out because of patient refusal, LGSIL on Pap smear of cervix (2014), LGSIL on Pap smear of cervix (09/02/2018), LGSIL on Pap smear of cervix (04/2022), Other conditions influencing health status, Prediabetes, and Raynaud's disease. Surgical Hx: Past Surgical History: Procedure Laterality Date CARDIAC CATHETERIZATION N/A 06/08/2023 Procedure: Mulvane Insertion; Surgeon: Cooper Garnett MD; Location: [place] [address] [facility]; Service: Cardiovascular; Laterality: N/A; swan repositioning, failed at bedside CARDIAC CATHETERIZATION N/A 06/07/2023 Procedure: Right Heart Cath; Surgeon: Akil Martinez MD; Location: [place] [address] [facility]; Service: Cardiovascular; Laterality: N/A; CARDIAC CATHETERIZATION N/A 06/07/2023 Procedure: Left & Right Heart Cath w Angiography & LV; Surgeon: Akil Martinez MD; Location: [place] [address] [facility]; Service: Cardiovascular; Laterality: N/A; CERVICAL BIOPSY W/ LOOP ELECTRODE EXCISION 08/17/2014 dr. temple COLPOSCOPY 05/13/20222014 MOUTH SURGERY has a past surgical history that includes Cervical biopsy w/ loop electrode excision (08/17/2014); Colposcopy (05/13/2022); Mouth surgery; Cardiac catheterization (N/A, 06/08/2023); Cardiac catheterization (N/A, 06/07/2023); and Cardiac catheterization (N/A, 06/07/2023). Social Hx: Tobacco Use: Medium Risk (02/18/2024) Patient History Smoking Tobacco Use: Former Smokeless Tobacco Use: Never Passive Exposure: Not on file Alcohol Use: Not At Risk (06/06/2023) AUDIT-C Frequency of Alcohol Consumption: 2-4 times a month Average Number of Drinks: 1 or 2 Frequency of Binge Drinking: Never Recent Concern: Alcohol Use - Alcohol Misuse (04/06/2023) AUDIT-C Frequency of Alcohol Consumption: 2-4 times a month Average Number of Drinks: 1 or 2 Frequency of Binge Drinking: Less than monthly reports that she quit smoking about 13 months ago. Her smoking use included cigarettes. She started smoking about 3 years ago. She has a 1 pack-year smoking history. She has never used smokeless tobacco. She reports that she does not currently use alcohol. She reports current drug use. Drug: Marijuana. Family Hx: Family History Problem Relation Name Age of Onset No Known Problems Mother Osteoporosis Father Parkinsonism Mother's Sister Parkinsonism Maternal Grandmother Asthma Other Diabetes Other Hypertension Other Heart attack Other family history includes Asthma in an other family member; Diabetes in an other family member; Heart attack in an other family member; Hypertension in an other family member; No Known Problems in her mother; Osteoporosis in her father; Parkinsonism in her maternal grandmother and mother's sister. Allergies: Allergies Allergen Reactions Amlodipine Swelling PHYSICAL EXAM: There is no height or weight on file to calculate BMI. TRENDS: Vitals: 06/26/2023 4:08 AM 06/26/2023 6:31 AM 06/26/2023 7:27 AM 07/03/2023 9:04 AM 07/04/2023 10:20 AM 07/04/2023 11:08 AM 07/12/2023 10:26 AM Vitals Systolic 125 122 116 130 121 122 Diastolic 89 85 74 97 87 90 Heart Rate 80 79 81 77 Temp 36.9 C (98.4 F) 36.5 C (97.7 F) Resp 19 19 Height 1.727 m (5' 8) 1.727 m (5' 8) 1.727 m (5' 8) Weight (lb) 154.32 154.4 154.2 148 BMI 23.46 kg/m2 23.48 kg/m2 23.45 kg/m2 22.5 kg/m2 BSA (m2) 1.83 m2 1.83 m2 1.83 m2 1.79 m2 Visit Report Report Report Report Report WEIGHT TREND: Wt Readings from Last 5 Encounters: 07/12/23 67.1 kg (148 lb) 07/04/23 69.9 kg (154 lb 3.2 oz) 07/03/23 70 kg (154 lb 6.4 oz) 06/26/23 70 kg (154 lb 5.2 oz) 06/05/23 80.8 kg (178 lb 2.1 oz) Objective 38 y.o.year old female, awake alert orient X 3 in NAD Last exam: General: awake, alert and oriented. No acute distress. Skin: Skin is warm, dry and intact without rashes or lesions. Appropriate color for ethnicity. Nail beds pink with no cyanosis or clubbing HEENT: normocephalic, atraumatic; conjunctivae are clear without exudates or hemorrhage. Sclera is non-icteric. Eyelids are normal in appearance without swelling or lesions. Hearing intact. Nares are patent bilaterally. Moist mucous membranes. Cardiovascular: Regular. No murmurs, gallops, or rubs are auscultated. S1 and S2 are heard and are of normal intensity. No JVD, no carotid bruits Respiratory: Thorax symmetric. CTAB, breath sounds vesicular. No crackles, wheezes or ronchi. Gastrointestinal: soft, non-distended, BS + x 4 Genitourinary: exam deferred Musculoskeletal: moves all extremities Extremities: pulses palpable bilaterally; no swelling or erythema; no edema Neurological: alert & oriented x 3; no focal deficits Psychiatric: appropriate mood and affect LABS: RESUFAST(CHOL:1,HDL:1,LDLF:1,TRI ): Lab Results Component Value Date CHOL 131 07/20/2022 HDL 33.0 (A) 07/20/2022 LDLF 81 07/20/2022 TRIG 83 07/20/2022 GETLABS(6M,2): Orders Only on 04/14/2024 Component Date Value MAGNESIUM 04/14/2024 2.0 GLUCOSE 04/14/2024 94 UREA NITROGEN (BUN) 04/14/2024 16 CREATININE 04/14/2024 1.39 (H) EGFR 04/14/2024 49 (L) SODIUM 04/14/2024 141 POTASSIUM 04/14/2024 3.8 CHLORIDE 04/14/2024 108 CARBON DIOXIDE 04/14/2024 25 ELECTROLYTE BALANCE 04/14/2024 8 CALCIUM 04/14/2024 9.0 PROTEIN, TOTAL 04/14/2024 6.8 ALBUMIN 04/14/2024 3.8 BILIRUBIN, TOTAL 04/14/2024 1.0 ALKALINE PHOSPHATASE 04/14/2024 343 (H) AST 04/14/2024 28 ALT 04/14/2024 21 WHITE BLOOD CELL COUNT 04/14/2024 4.9 RED BLOOD CELL COUNT 04/14/2024 4.85 HEMOGLOBIN 04/14/2024 13.7 HEMATOCRIT 04/14/2024 41.9 MCV 04/14/2024 86.4 MCH 04/14/2024 28.2 MCHC 04/14/2024 32.7 RDW 04/14/2024 14.3 PLATELET COUNT 04/14/2024 99 (L) MPV 04/14/2024 11.3 B TYPE NATRIURETIC PEPTI* 04/14/2024 978 (H) DIGOXIN 04/14/2024 <0.5 (L) Hospital Outpatient Visit on 02/05/2024 Component Date Value LVOT diam 02/05/2024 2.20 MV E/A ratio 02/05/2024 0.60 AV pk edita 02/05/2024 1.23 AV mn grad 02/05/2024 3 LV Biplane EF 02/05/2024 61 Tricuspid annular plane * 02/05/2024 2.0 LA vol index A/L 02/05/2024 22.2 LV EF 02/05/2024 60 LVIDd 02/05/2024 3.48 RVSP 02/05/2024 144.1 Aortic Valve Area by Con* 02/05/2024 3.05 Aortic Valve Area by Con* 02/05/2024 3.20 AV pk grad 02/05/2024 6 LV A4C EF 02/05/2024 73.6 LABBRIEF(HGB:3) Lab Results Component Value Date HGB 13.7 04/14/2024 HGB 13.5 06/26/2023 HGB 13.4 06/25/2023 HGB 14.9 06/24/2023 CMP: Recent Labs 04/14/24 0858 06/26/23 0628 06/25/23 0732 06/24/23 0325 06/23/23 0854 NA 141 139 138 139 140 K 3.8 4.0 4.5 4.8 4.2 CL 108 102 102 103 106 CO2 25 23 23 22 21 ANIONGAP 8 18 18 19 17 BUN 16 13 16 14 15 CREATININE 1.39* 1.20* 1.12* 1.01 0.91 EGFR 49* 59* 64 73 82 MG 2.0 1.80 1.90 1.95 1.79 Recent Labs 04/14/24 0858 06/26/23 0628 06/25/23 0732 06/24/23 0325 06/23/23 0854 07/20/22 0926 11/28/21 2244 ALBUMIN 3.8 3.4 3.5 4.0 3.3* < > 3.8 ALKPHOS 343* 307* 312* 379* 357* < > 89 ALT 21 12 16 23 21 < > 39 AST 28 14 16 25 22 < > 32 BILITOT 1.0 1.3* 1.2 1.3* 1.1 < > 0.4 LIPASE -- -- -- -- -- -- 39 < > = values in this interval not displayed. CBC: Recent Labs 04/14/24 0858 06/26/23 0628 06/25/23 0732 06/24/23 0325 06/23/23 0854 WBC 4.9 4.9 7.1 6.3 5.5 HGB 13.7 13.5 13.4 14.9 13.2 HCT 41.9 42.6 44.3 50.2* 41.6 PLT 99* 169 151 186 160 MCV 86.4 88 91 92 92 HEME/ENDO: Recent Labs 06/06/23 0957 11/17/22 0833 07/20/22 0926 06/06/22 1140 10/19/21 0840 FERRITIN -- 251* -- -- -- IRONSAT -- 25 -- -- -- TSH -- -- -- 2.02 3.40 HGBA1C 6.7* 6.7* 6.6* 6.0* 5.5 CARDIAC: Recent Labs 04/14/24 0858 06/06/23201111/28/21 2244 TROPHS -- 17 8 BNP 978* 1,149* -- Recent Labs 07/20/22 0926 10/19/21 0840 03/21/21 0823 CHOL 131 180 179 LDLF 81 95 104* HDL 33.0* 29.0* 32.0* TRIG 83 278* 215* B TYPE NATRIURETIC PEPTIDE (BNP) Date Value Ref Range Status 04/14/2024 978 (H) <100 pg/mL Final Comment: BNP levels increase with age in the general population with the highest values seen in individuals greater than 75 years of age. Reference: J. Am. La. Cardiol. 2002; 40:976-982. BNP Date Value Ref Range Status 06/06/2023 1,149 (H) 0 - 99 pg/mL Final DIAGNOSTIC STUDIES REVIEWED: EKG - sinus with RVH ECHO 01/2024 1. Left ventricular ejection fraction is normal, by visual estimate at 60%. 2. Left ventricular cavity size is decreased. 3. There is severely reduced right ventricular systolic function. 4. Severely enlarged right ventricle. 5. The right atrium is moderately to severely dilated. 6. Severe tricuspid regurgitation. 7. Severely elevated right ventricular systolic pressure. 8. Moderate to severe pulmonic valve regurgitation. 9. There is moderately increased septal thickness. /[facility] 05/2023 1. Normal coronary arteries in a right dominant system. 2. Normal left ventricular systolic function. 3. Severe pulmonary hypertension. RA 23 PA 91/41/59 PCWP 22 MARIANNA/CI 3.6/1.9 ASSESSMENT AND PLAN: Patient Active Problem List Diagnosis Abnormal uterine bleeding (AUB) BPPV (benign paroxysmal positional vertigo) Cervix dysplasia Chronic renal insufficiency, stage III (moderate) (Multi) Dysplasia of cervix, low grade (HENRIETTA 1) Hypertension associated with diabetes (Multi) ELIZABETH (generalized anxiety disorder) GERD (gastroesophageal reflux disease) Controlled type 2 diabetes mellitus with hyperglycemia, without long-term current use of insulin Hemiplegic migraine Hypertriglyceridemia Leg edema Lesion of left ovary Low serum HDL Motion sickness Ovarian cyst, complex Pain of left lower extremity Raynauds disease Sacroiliac joint dysfunction of left side Seasonal allergies Varicose veins of legs Wound of left ankle Amenorrhea Vaginal lesion Elevated red blood cell count Non-healing wound of lower extremity Non-healing wound of upper extremity Finger ulcer (Multi) Overweight (BMI 25.0-29.9) History of ovarian cyst Elevated ferritin Pulmonary hypertension (Multi) Severe tricuspid regurgitation by prior echocardiogram Non-pressure chronic ulcer of left lower leg with fat layer exposed (Multi) Cellulitis Pulmonary arterial hypertension WHO group 1 with severe RV dysfunction seems to be functionally better with the addition of PDE 5 inhibitor. ERA, she admits poor medication adherence until recently but seems to be doing better her primary discussion today centered on coming off of the prostacyclin pump I was clear with her that I would likely result in progressive worsening of symptoms which are already relatively significant I do think she would benefit from the addition of a low-dose diuretic given her BNP which is quite elevated for the setting of pulmonary hypertension as well as persistent edema will start with spironolactone 25 mg she does have mild hypokalemia I dind not frankly discussed control with her today but will need to discuss that at a future visit She has substantial social barriers making it to [place] and in fact is not even sure that she can come to a visit in [place] but we will schedule her for May hopefully we can alternate in person versus virtual visits Chronic nicotine use although she is discontinued tobacco continues to vape Hypertension/diabetes these are currently managed without medications I discussed heart failure therapeutic options, including: medical therapy, salt and fluid restriction, the need to monitor BP and weight, exercise and weight loss, smoking cessation, need to control hypertension, need to control diabetes, follow up and medication changes. I spent 46 minutes coordinating care, reviewing echo/rhc and discussing options and adjusting medications. I discussed with patient and other providers I spent >50 percent of the time counseling the patient and discussing the diagnosis, general prognosis and plan of care with the patient Remote telehealth audio and video communications were used for this encounter Orders placed during the encounter: No orders of the defined types were placed in this encounter. Followup Appts: Future Appointments Date Time Provider Department Center 05/27/2024 3:00 PM Greyson Schumacher, [id number] Academic Rocio Craig IV, MD Heart Failure, Heart Transplant and Mechanical Circulatory Support documented in this encounter [facility] Work Phone: 05-12-2024 Instructions Rocio Arroyo MD - 05/12/2024 9:30 AM EST To reach Dr. Arroyo's office please call : [phone]. . Call [phone] to schedule an appointment. You may also contact the HF RNs at I recommend starting spironolactone 25mg once a day to help with fluid (ok to talk with Dr Schumacher team first) We plan to see you May 5 in [place] at 10AM documented in this encounter [facility] Work Phone: 02-18-2024 History of Present illness Narrative History Of Present Illness Jayna Smith is a 38 y.o. female presenting with pulmonary hypertension. Patient was recently hospitalized at [facility] from 06/06/2023-06/26/2023. This is her first visit since discharge. Originally presented as a transfer from [facility] for severe pulmonary hypertension and tricuspid regurgitation. Pt initially presented on 06/02 for left leg pain and swelling and concern for cellulitis 2/2 to a chronic anterior left leg wound and recent surgical debridement. She was admitted to [facility] on 06/03 for IV antibiotic management. Noted to have a new murmur and cardiology was consulted as a TTE on 04/08/23 revealed a dilated RA and elevated RVSP with severe TR (full report below). She was recommended to follow-up with cardiology outpatient, however does not appear that this occurred. Repeat TTE on 06/05 revealed similar findings and she was transferred to [facility] for further evaluation and management of right heart failure/pulm htn. Pulmonary hypertension specialist, Dr Schumacher, Advanced Heart Failure team, and Rheumatology were consulted. Patient received autoimmune workup which was significant for positive NICOLE and anti-centromere antibodies. 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 Rheumatology confirmed no current indication for immunosuppression therapy. Patient started on PPI for GERD, a common associated symptom of CREST. Patient underwent left and right heart cath with Mulvane catheter placement. Additionally patient with CT PE negative for ILD or acute PE. V/Q scan not concerning for CTEPH. 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 Patient started on inhaled Nitric Oxide and dobutamine drip while titrating Veletri. Patient weaned off of nitric oxide and dobutamine. Patient is NYHA Functional Class 3 and WHO Group 1. PAH Treatment: Remodulin, 18 ng/kg/min, 1.9 ml/hr, concentration 0.05 mg/ml (06/11/2023) Tadalafil (pending start date) Opsumit (pending approval) Infusion site: [place], clean, dry and intact Treatment history: N/A Testing today includes: None Interval History Virtual or Telephone Consent A telephone visit (audio only) between the patient (at the originating site) and the provider (at the distant site) was utilized to provide this telehealth service. Verbal consent was requested and obtained from Jayna Smith on this date, 02/18/24 for a telehealth visit. Patient at home. Message sent to PCP requesting referral to social media content manager for multiple needs. Working with specialty pharmacy to have all medications delivered to pt r/t social issues. Shortness of breath with strenuous activity only. No other c/o. Tadalafil is waiting to be picked up by patient at [facility]. Past Medical History Patient Active Problem List Diagnosis Abnormal uterine bleeding (AUB) BPPV (benign paroxysmal positional vertigo) Cervix dysplasia Chronic renal insufficiency, stage III (moderate) (Multi) Dysplasia of cervix, low grade (HENRIETTA 1) Hypertension associated with diabetes (Multi) ELIZABETH (generalized anxiety disorder) GERD (gastroesophageal reflux disease) Controlled type 2 diabetes mellitus with hyperglycemia, without long-term current use of insulin Hemiplegic migraine Hypertriglyceridemia Leg edema Lesion of left ovary Low serum HDL Motion sickness Ovarian cyst, complex Pain of left lower extremity Raynauds disease Sacroiliac joint dysfunction of left side Seasonal allergies Varicose veins of legs Wound of left ankle Amenorrhea Vaginal lesion Elevated red blood cell count Non-healing wound of lower extremity Non-healing wound of upper extremity Finger ulcer (Multi) Overweight (BMI 25.0-29.9) History of ovarian cyst Elevated ferritin Pulmonary hypertension (Multi) Severe tricuspid regurgitation by prior echocardiogram Non-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 Social History She reports that she quit smoking about 10 months ago. Her smoking use included cigarettes. She started smoking about 2 years ago. She has a 1 pack-year smoking history. She has never used smokeless tobacco. She reports that she does not currently use alcohol. She reports current drug use. Drug: Marijuana. Family History Family History Problem Relation Name Age of Onset No Known Problems Mother Osteoporosis Father Parkinsonism Mother's Sister Parkinsonism Maternal Grandmother Asthma Other Diabetes Other Hypertension Other Heart attack Other Medications Current Outpatient Medications: acetaminophen (Tylenol) 500 mg tablet, Take 2 tablets (1,000 mg) by mouth every 6 hours if needed for mild pain (1 - 3)., Disp: , Rfl: digoxin (Lanoxin) 125 MCG tablet, Take 1 tablet (125 mcg) by mouth once daily., Disp: 90 tablet, Rfl: 0 pantoprazole (ProtoNix) 40 mg EC tablet, Take 1 tablet (40 mg) by mouth once daily in the morning. Take before meals. Do not crush, chew, or split., Disp: 60 tablet, Rfl: 0 tadalafil (Cialis) 20 mg tablet, Take 2 tablets (40 mg) by mouth once daily., Disp: 60 tablet, Rfl: 11 treprostinil 10 mg/mL solution 10 mg/mL, empty bag/syringe unknown 1 each, Inject 9 ng/kg/min under the skin continuously., Disp: , Rfl: Allergies Amlodipine Review of Systems Constitutional: Negative. HENT: Negative. Eyes: Negative. Respiratory: Positive for shortness of breath. Cardiovascular: Negative. Gastrointestinal: Negative. Endocrine: Negative. Genitourinary: Negative. Musculoskeletal: Negative. Skin: Negative. Allergic/Immunologic: Negative. Neurological: Negative. Hematological: Negative. Psychiatric/Behavioral: Negative. Last Recorded Vitals There were no vitals taken for this visit. Physical Exam Relevant Results 6MWT(02/12/24) SP02- 95-89 % RA HR-65-94 STEVAN-0-4 Actual Meters- 594 m Echo (02/05/2024) [facility] Left Ventricle: Left ventricular ejection fraction is normal, by visual estimate at 60%. There are no regional wall motion abnormalities. The left ventricular cavity size is decreased. There is moderately increased septal and normal posterior left ventricular wall thickness. There is left ventricular concentric remodeling. Spectral Doppler shows a normal pattern of left ventricular diastolic filling. Left Atrium: The left atrium is normal in size. A bubble study using agitated saline was not performed. Right Ventricle: The right ventricle is severely enlarged. There is severely reduced right ventricular systolic function. Right Atrium: The right atrium is moderately to severely dilated. Aortic Valve: The aortic valve is trileaflet. The aortic valve dimensionless index is 0.84. There is no evidence of aortic valve regurgitation. The peak instantaneous gradient of the aortic valve is 6 mmHg. The mean gradient of the aortic valve is 3 mmHg. Mitral Valve: The mitral valve is normal in structure. There is no evidence of mitral valve regurgitation. Tricuspid Valve: The tricuspid valve is structurally normal. There is severe tricuspid regurgitation. The Doppler estimated RVSP is severely elevated at 144.1 mmHg. Pulmonic Valve: The pulmonic valve is structurally normal. There is moderate to severe pulmonic valve regurgitation. Pericardium: Trivial pericardial effusion. Aorta: The aortic root is normal. Pulmonary Artery: The Doppler estimated pulmonary artery diastolic pressure is 18.7 mmHg. CONCLUSIONS: 1. Left ventricular ejection fraction is normal, by visual estimate at 60%. 2. Left ventricular cavity size is decreased. 3. There is severely reduced right ventricular systolic function. 4. Severely enlarged right ventricle. 5. The right atrium is moderately to severely dilated. 6. Severe tricuspid regurgitation. 7. Severely elevated right ventricular systolic pressure. 8. Moderate to severe pulmonic valve regurgitation. 9. There is moderately increased septal thickness. NM lung perfusion scan (06/07/2023) IMPRESSION: There are nonspecific non-segmental/subsegmental perfusion defects and marked heterogeneity in both lungs corresponding to intermediate probability for pulmonary embolism. Additionally, chronic PE versus multifocal airway disease not entirely excluded. LHC/RHC (06/08/2023) PAP: 91/41(59) PWP: 22 CO/CI: 3.6/1.8 CONCLUSIONS: 1. Normal coronary arteries in a right dominant system. 2. Normal left ventricular systolic function. 3. Severe pulmonary hypertension. CT chest for PE (06/07/2023) IMPRESSION: 1. No evidence of acute pulmonary embolism. 2. Findings compatible with history of pulmonary hypertension and elevated right-sided heart pressures including dilated main pulmonary artery, asymmetric enlargement of the right atrium and ventricle, and reflux of contrast into the IVC. 3. Focal area of tree-in-bud nodularity in the right lower lobe is consistent with an infectious or inflammatory bronchiolitis. 4. Diffuse mosaic attenuation which is most likely on the basis of small vessels disease given known pulmonary hypertension. Underlying small airways/reactive airways disease is a differential consideration in the appropriate clinical setting 5. Please see separately dictated concurrent CT abdomen pelvis. Echo (06/06/2023) [facility] PHYSICIAN INTERPRETATION: Left Ventricle: Left ventricular systolic function is normal, with an estimated ejection fraction of 65%. There are no regional wall motion abnormalities. The left ventricular cavity size is normal. There is mild left ventricular hypertrophy. Spectral Doppler shows an impaired relaxation pattern of left ventricular diastolic filling. Left Atrium: The left atrium is normal in size. Right Ventricle: The right ventricle is severely enlarged. There is severely reduced right ventricular systolic function. Right Atrium: The right atrium is severely dilated. Aortic Valve: The aortic valve is trileaflet. There is no evidence of aortic valve regurgitation. The peak instantaneous gradient of the aortic valve is 3.4 mmHg. The mean gradient of the aortic valve is 2.0 mmHg. Mitral Valve: The mitral valve is normal in structure. There is no evidence of mitral valve regurgitation. Tricuspid Valve: The tricuspid valve is structurally normal. There is severe tricuspid regurgitation. Pulmonic Valve: The pulmonic valve is structurally normal. There is moderate pulmonic valve regurgitation. Pericardium: There is a small pericardial effusion. Aorta: The aortic root is normal. Systemic Veins: The inferior vena cava appears dilated. There is less than 50% IVC collapse with inspiration. CONCLUSIONS: 1. Left ventricular systolic function is normal with a 65% estimated ejection fraction. 2. Spectral Doppler shows an impaired relaxation pattern of left ventricular diastolic filling. 3. D-shaped septum in systole and diastole consistent with right ventricular pressure and volume overload. 4. Severely enlarged right ventricle. 5. There is severely reduced right ventricular systolic function. 6. The right atrium is severely dilated. 7. Severe tricuspid regurgitation. 8. Moderate pulmonic valve regurgitation. 9. Calculated pulmonary artery systolic pressure is 97 mmHg, consistent with pulmonary hypertension. 10. Ascites is incidentally noted. Recommend dedicated imaging. 11. Small pericardial effusion with no evidence of hemodynamic compromise. 12. Overall findings appear consistent with significant pulmonary hypertension, with signs of right ventricular dysfunction. 13. Findings appear similar to prior echocardiogram dated 04/09/2023. Echo (04/09/23) [facility] PHYSICIAN INTERPRETATION: Left Ventricle: Left ventricular systolic function is normal, with an estimated ejection fraction of 60%. There are no regional wall motion abnormalities. The left ventricular cavity size is normal. There is moderate concentric left ventricular hypertrophy. Spectral Doppler shows an impaired relaxation pattern of left ventricular diastolic filling. Left Atrium: The left atrium is normal in size. Right Ventricle: The right ventricle is moderately enlarged. There is reduced right ventricular systolic function. Right Atrium: The right atrium is severely dilated. Aortic Valve: The aortic valve is trileaflet. There is no evidence of aortic valve regurgitation. The peak instantaneous gradient of the aortic valve is 3.9 mmHg. The mean gradient of the aortic valve is 2.0 mmHg. Mitral Valve: The mitral valve is normal in structure. There is no evidence of mitral valve regurgitation. Tricuspid Valve: The tricuspid valve is structurally normal. There is severe tricuspid regurgitation. RV-RA gradient 102mm Hg. Pulmonic Valve: The pulmonic valve is not well visualized. There is mild pulmonic valve regurgitation. Pericardium: There is a small pericardial effusion. Aorta: The aortic root is normal. Systemic Veins: The inferior vena cava appears dilated. There is less than 50% IVC collapse with inspiration. CONCLUSIONS: 1. Left ventricular systolic function is normal with a 60% estimated ejection fraction. 2. Spectral Doppler shows an impaired relaxation pattern of left ventricular diastolic filling. 3. There is moderate concentric left ventricular hypertrophy. 4. Enlarged right ventricle with reduced systolic function. 5. D-shaped septum in systole and diastole, consistent with right ventricular pressure and volume overload. 6. Severe tricuspid regurgitation. 7. The right atrium is severely dilated. 8. Calculated right ventricular systolic pressure is 117mm Hg. 9. Small pericardial effusion with no echocardiographic evidence of tamponade. 10. Consult team informed of findings. 11. Findings are consistent with severe Pulmonary Hypertension; presence of pericardial effusion and RV systolic dysfunction are high-risk markers. Assessment/Plan 1) PAH associated with CREST. Failure to achieve goal of therapy with poor prognosis. 1 hour discussion with patient and significant other. Patient says the line makes her depressed and she wants it out. Clarified and discussed: A. Significant other questioned decision making with initial presentation at right heart failure with very low CO requiring multiple agents to support. Re-iterated fatal nature of that presentation initially or over short term. B. Discussed non-quality of agents. C. Reviewed recent echo with massive RV dilation and poor prognosisl\ D. Reviewed usual criteria for transition which is dramatic improvement to near normal suggesting successful transition. E. Reviewed distinct possibility that attempted and failed transition could lead to un-recoverable function even if infusion restarted. F. Reviewed likelihood that function and quantity of life less (potentially much less) with IV-> oral with current cardiac function and PAH. G. Patient and significant other understand and feel burden of infusion more than living less or losing function and wish to pursue transition. Plan 1) Start ambrisentan (soon) and tadalafil (today) per protocol. 2) Patient advised of warnings, Patient enrolled in [facility] and monthly testing, agrees and understands. 3) Will start tadalafil, ambrisentan and seek approval for orentitram. Will pursue IV-> PO once approved and delivered. Patient and sig other aware of risks and agree to proceed. Immodium prescription , start 1/2 pill daily and as directed. documented in this encounter [facility] Work Phone: 07-12-2023 History of Present illness Narrative Images from the original note were not included. Subjective Jayna Smith is a 37 y.o. female medical history of type 2 diabetes, hypertension, Raynaud's phenomena who was initially seen at [facility] and then transferred to [facility] for severe pulmonary hypertension. Patient's autoimmune workup was significant for a positive NICOLE and anticentromere antibodies likely consistent with crest syndrome which are contributing to her underlying pulmonary hypertension. It was determined that the patient had Group 1 PAH secondary to crest. Was started on intravenous treprostinil, digoxin 125 mcg. And subsequently discharged. Left heart catheterization/right heart catheterization: June 07, 2023 No obstructive CAD RA 26, RV 91/26, wedge 24, PA 91/41 mean 59, cardiac output 3.6 Overall findings are consistent with pulmonary hypertension with high PVR Echocardiogram June 06, 2023: CONCLUSIONS: 1. Left ventricular systolic function is normal with a 65% estimated ejection fraction. 2. Spectral Doppler shows an impaired relaxation pattern of left ventricular diastolic filling. 3. D-shaped septum in systole and diastole consistent with right ventricular pressure and volume overload. 4. Severely enlarged right ventricle. 5. There is severely reduced right ventricular systolic function. 6. The right atrium is severely dilated. 7. Severe tricuspid regurgitation. 8. Moderate pulmonic valve regurgitation. 9. Calculated pulmonary artery systolic pressure is 97 mmHg, consistent with pulmonary hypertension. 10. Ascites is incidentally noted. Recommend dedicated imaging. 11. Small pericardial effusion with no evidence of hemodynamic compromise. 12. Overall findings appear consistent with significant pulmonary hypertension, with signs of right ventricular dysfunction. 13. Findings appear similar to prior echocardiogram dated 04/09/2023. On this visit patient denies any chest discomfort shortness breath. Denies any orthopnea/PND. Does not appear to have significant lower extremity edema. Does note significant fatigue Review of Systems A comprehensive review of systems was negative. Past Medical History: Diagnosis Date Anxiety ASCUS of cervix with negative high risk HPV 06/2017 Chlamydial infection, unspecified Chlamydia Elevated LFTs 05/25/2022 GERD (gastroesophageal reflux disease) Immunization not carried out because of patient refusal Influenza vaccination declined LGSIL on Pap smear of cervix 2014 HPV + LGSIL on Pap smear of cervix 09/02/2018 HPV NEG LGSIL on Pap smear of cervix 04/2022 HPV NEG Other conditions influencing health status History of Prediabetes Raynaud's disease Past Surgical History: Procedure Laterality Date CARDIAC CATHETERIZATION N/A 06/08/2023 Procedure: Mulvane Insertion; Surgeon: Cooper Garnett MD; Location: [place] [address] [employer]; Service: Cardiovascular; Laterality: N/A; swan repositioning, failed at bedside CARDIAC CATHETERIZATION N/A 06/07/2023 Procedure: Right Heart Cath; Surgeon: Akil Martinez MD; Location: [place] [address] [facility]; Service: Cardiovascular; Laterality: N/A; CARDIAC CATHETERIZATION N/A 06/07/2023 Procedure: Left & Right Heart Cath w Angiography & LV; Surgeon: Akil Martinez MD; Location: [place] [address] [facility]; Service: Cardiovascular; Laterality: N/A; CERVICAL BIOPSY W/ LOOP ELECTRODE EXCISION 08/17/2014 dr. temple COLPOSCOPY 05/13/20222014 MOUTH SURGERY Allergies Allergen Reactions Amlodipine Swelling Family History Problem Relation Name Age of Onset No Known Problems Mother Osteoporosis Father Parkinsonism Mother's Sister Parkinsonism Maternal Grandmother Asthma Other Diabetes Other Hypertension Other Heart attack Other Objective Visit Vitals BP 122/90 Pulse 77 Ht 1.727 m (5' 8) Wt 67.1 kg (148 lb) SpO2 95% BMI 22.50 kg/m OB Status Having periods Smoking Status Former BSA 1.79 m General: awake, alert and oriented. No acute distress. Skin: Skin is warm, dry and intact without rashes or lesions. Appropriate color for ethnicity. Nail beds pink with no cyanosis or clubbing HEENT: normocephalic, atraumatic; conjunctivae are clear without exudates or hemorrhage. Sclera is non-icteric. Eyelids are normal in appearance without swelling or lesions. Hearing intact. Nares are patent bilaterally. Moist mucous membranes. Cardiovascular: Regular. No murmurs, gallops, or rubs are auscultated. S1 and S2 are heard and are of normal intensity. No JVD, no carotid bruits Respiratory: Thorax symmetric. CTAB, breath sounds vesicular. No crackles, wheezes or ronchi. Gastrointestinal: soft, non-distended, BS + x 4 Genitourinary: exam deferred Musculoskeletal: moves all extremities Extremities: pulses palpable bilaterally; no swelling or erythema; no edema Neurological: alert & oriented x 3; no focal deficits Psychiatric: appropriate mood and affect Lab Review Lab Results Component Value Date HGB 13.5 06/26/2023 HGB 13.4 06/25/2023 HGB 14.9 06/24/2023 PLT 169 06/26/2023 WBC 4.9 06/26/2023 NA 139 06/26/2023 K 4.0 06/26/2023 CREATININE 1.20 (H) 06/26/2023 CREATININE 1.12 (H) 06/25/2023 CREATININE 1.01 06/24/2023 BUN 13 06/26/2023 CALCIUM 9.6 06/26/2023 INR 1.1 06/13/2023 BNP 1,149 (H) 06/06/2023 TROPHS 17 06/06/2023 TROPHS 8 11/28/2021 LDLF 81 07/20/2022 June 24, 2023: Assessment/Plan 37-year-old female with medical history of type 2 diabetes, hypertension, Raynaud's phenomena who was initially seen at [facility] and then transferred to [facility] for severe pulmonary hypertension. Patient's autoimmune workup was significant for a positive NICOLE and anticentromere antibodies likely consistent with crest syndrome which are contributing to her underlying pulmonary hypertension. It was determined that the patient had Group 1 PAH secondary to crest. Was started on intravenous treprostinil, digoxin 125 mcg. And subsequently discharged. Plan: -Overall patient's diagnosis is consistent with Group 1 pulmonary hypertension from connective tissue disease, functional class IV with significant right ventricular dysfunction -On IV treprostinil. Her main issue also appears to be social with lack of reliable transportation to get to [place], she is currently unemployed. Will have a conversation with Dr. Mckenzie to talk about specific work restrictions and consult social work to see if any transportation options are available -Will set up an appointment with pulmonary hypertension clinic -RTC 6 months Emre Silverio MD Advanced Heart Failure/Transplant Cardiology Cardio-Oncology [facility] documented in this encounter [facility] Work Phone: 07-04-2023 History of Present illness Narrative Subjective Patient ID: Jayna Smith is a 37 y.o. female who presents for Follow-up (HOSPITAL DISCHARGE, PULM. HYPERTENSION. FEELS WEAK, SOB SOMETIMES) [facility] 06/06/23 through 06/26/23 Pulmonary HTN 1) Follow up in pulmonary vascular clinic 3-4 weeks with 6 minute walk, call for increase in treprosyinil this 2) Local follow up with MD for wound, patient has Doctor there. Recent diagnosis of hep C ? June 05 CREST syndrome Titrating veletri Cellulitis and wound treated with IV vanco and zosyn Advised to follow up with pulm HTN clinic, rheum, pulm, and PCP Visit is scheduled july [address] silverio Med check Preventative Testing mammo suggest age 38 PAP - Dr Carter June 2023 DEXA -suggest age 48 colonoscopy - suggest colonoscopy at age 43 PHQ2 Depression screen - NEG MAR 2023 Fall - Neg MAR 2023 Tobacco - quit Mar 2023 for a few days - cont to vape - trying to avoid buying more cig if possible Patient Active Problem List Diagnosis Abnormal uterine bleeding (AUB) BPPV (benign paroxysmal positional vertigo) Cervix dysplasia Chronic renal insufficiency, stage III (moderate) (Multi) Dysplasia of cervix, low grade ([place] 1) Hypertension associated with diabetes (Multi) ELIZABETH (generalized anxiety disorder) GERD (gastroesophageal reflux disease) Controlled type 2 diabetes mellitus with hyperglycemia, without long-term current use of insulin (Multi) Hemiplegic migraine Hypertriglyceridemia Leg edema Lesion of left ovary Low serum HDL Motion sickness Ovarian cyst, complex Pain of left lower extremity Raynauds disease Sacroiliac joint dysfunction of left side Seasonal allergies Varicose veins of legs Wound of left ankle Amenorrhea Vaginal lesion Elevated red blood cell count Non-healing wound of lower extremity Non-healing wound of upper extremity Finger ulcer (Multi) Overweight (BMI 25.0-29.9) History of ovarian cyst Elevated ferritin Pulmonary hypertension (Multi) Severe tricuspid regurgitation by prior echocardiogram Non-pressure chronic ulcer of left lower leg with fat layer exposed (Multi) Cellulitis Review of Systems Constitutional: Positive for fatigue. Negative for chills and fever. HENT: Negative for congestion, rhinorrhea, sinus pain, sore throat and tinnitus. Eyes: Negative for discharge, redness and visual disturbance. Respiratory: Positive for shortness of breath. Negative for cough, chest tightness and wheezing. Cardiovascular: Negative for chest pain, palpitations and leg swelling. Gastrointestinal: Negative for abdominal pain, constipation, diarrhea, nausea and vomiting. Endocrine: Negative for cold intolerance and heat intolerance. Genitourinary: Negative for flank pain, frequency and urgency. Musculoskeletal: Negative for back pain, gait problem and neck pain. Skin: Positive for wound. Negative for rash. Neurological: Negative for dizziness, tremors, syncope, numbness and headaches. Hematological: Does not bruise/bleed easily. Psychiatric/Behavioral: Negative for confusion, sleep disturbance and suicidal ideas. Past Medical History: Diagnosis Date Anxiety ASCUS of cervix with negative high risk HPV 06/2017 Chlamydial infection, unspecified Chlamydia Elevated LFTs 05/25/2022 GERD (gastroesophageal reflux disease) Immunization not carried out because of patient refusal Influenza vaccination declined LGSIL on Pap smear of cervix 2014 HPV + LGSIL on Pap smear of cervix 09/02/2018 HPV NEG LGSIL on Pap smear of cervix 04/2022 HPV NEG Other conditions influencing health status History of Prediabetes Raynaud's disease Past Surgical History: Procedure Laterality Date CARDIAC CATHETERIZATION N/A 06/08/2023 Procedure: Mulvane Insertion; Surgeon: Cooper Garnett MD; Location: [place] [address] [facility]; Service: Cardiovascular; Laterality: N/A; swan repositioning, failed at bedside CARDIAC CATHETERIZATION N/A 06/07/2023 Procedure: Right Heart Cath; Surgeon: Akil Martinez MD; Location: [place] [address] [facility]; Service: Cardiovascular; Laterality: N/A; CARDIAC CATHETERIZATION N/A 06/07/2023 Procedure: Left & Right Heart Cath w Angiography & LV; Surgeon: Akil Martinez MD; Location: [place] [address] [facility]; Service: Cardiovascular; Laterality: N/A; CERVICAL BIOPSY W/ LOOP ELECTRODE EXCISION 08/17/2014 dr. temple COLPOSCOPY 05/13/20222014 MOUTH SURGERY Family History Problem Relation Name Age of Onset No Known Problems Mother Osteoporosis Father Parkinsonism Mother's Sister Parkinsonism Maternal Grandmother Asthma Other Diabetes Other Hypertension Other Heart attack Other Social History Tobacco Use Smoking status: Every Day Current packs/day: 0.00 Average packs/day: 0.5 packs/day for 2.0 years (1.0 ttl pk-yrs) Types: Cigarettes Start date: 03/30/2021 Last attempt to quit: 03/30/2023 Years since quittin.2 Smokeless tobacco: Never Vaping Use Vaping status: Every Day Substances: Nicotine, THC, CBD, Flavoring Devices: Disposable Substance Use Topics Alcohol use: Not Currently Comment: RARE Drug use: Yes Types: Marijuana Comment: occassionally Allergies Allergen Reactions Amlodipine Swelling Current Outpatient Medications Medication Sig Dispense Refill digoxin (Lanoxin) 125 MCG tablet Take 1 tablet (125 mcg) by mouth once daily. 60 tablet 0 pantoprazole (ProtoNix) 40 mg EC tablet Take 1 tablet (40 mg) by mouth once daily in the morning. Take before meals. Do not crush, chew, or split. 60 tablet 0 acetaminophen (Tylenol) 500 mg tablet Take 2 tablets (1,000 mg) by mouth every 6 hours if needed for mild pain (1 - 3). bisacodyl (Dulcolax) 10 mg suppository Insert 1 suppository (10 mg) into the rectum once daily as needed for constipation. (Patient not taking: Reported on 07/04/2023) 12 suppository 0 caffeine 200 mg Take 1 tablet (200 mg) by mouth every 6 hours if needed (For headache). (Patient not taking: Reported on 07/04/2023) 60 tablet 0 gabapentin (Neurontin) 300 mg capsule Take 1 capsule (300 mg) by mouth every 8 hours if needed (For foot pain). (Patient not taking: Reported on 07/04/2023) 60 capsule 0 melatonin 3 mg tablet Take 2 tablets (6 mg) by mouth once daily. (Patient not taking: Reported on 07/04/2023) 30 tablet 0 polyethylene glycol (Glycolax, Miralax) 17 gram packet Take 17 g by mouth once daily. (Patient not taking: Reported on 07/04/2023) 60 packet 0 sennosides-docusate sodium (Diamond-Colace) 8.6-50 mg tablet Take 1 tablet by mouth 2 times a day. (Patient not taking: Reported on 07/04/2023) 60 tablet 0 treprostinil 10 mg/mL solution 10 mg/mL, empty bag/syringe unknown 1 each Inject 9 ng/kg/min under the skin continuously. No current facility-administered medications for this visit. Objective BP (!) 130/97 Pulse 81 Ht 1.727 m (5' 8) Wt 69.9 kg (154 lb 3.2 oz) LMP 06/06/2023 Comment: spotting today SpO2 90% BMI 23.45 kg/m Physical Exam Vitals reviewed. Constitutional: Appearance: Normal appearance. She is normal weight. HENT: Head: Normocephalic. Right Ear: External ear normal. Left Ear: External ear normal. Nose: Nose normal. No congestion or rhinorrhea. Mouth/Throat: Mouth: Mucous membranes are moist. Eyes: Extraocular Movements: Extraocular movements intact. Conjunctiva/sclera: Conjunctivae normal. Pupils: Pupils are equal, round, and reactive to light. Cardiovascular: Rate and Rhythm: Normal rate and regular rhythm. Pulses: Normal pulses. Pulmonary: Effort: Pulmonary effort is normal. Breath sounds: Normal breath sounds. Abdominal: General: Bowel sounds are normal. Palpations: Abdomen is soft. Tenderness: There is no abdominal tenderness. There is no right CVA tenderness or left CVA tenderness. Musculoskeletal: General: No tenderness. Normal range of motion. Cervical back: Normal range of motion and neck supple. No tenderness. Skin: General: Skin is warm and dry. Comments: L LE wrapped Skin discoloration Neurological: General: No focal deficit present. Mental Status: She is alert and oriented to person, place, and time. Psychiatric: Mood and Affect: Mood normal. Behavior: Behavior normal. Testing Reviewed hosp notes and many tests Impression MDM 1) COMPLEXITY: 1 OR MORE CHRONIC CONDITION WITH EXACERBATION, OR PROGRESSION OR SIDE EFFECT OF TREATMENT ADDRESSED 2)DATA: TESTS INTERPRETED AND OR ORDERED, TOOK INDEPENDENT HISTORY OR RECORDS REVIEWED 3)RISK: MODERATE RISK DUE TO NATURE OF MEDICAL CONDITIONS/COMORBIDITY OR MEDICATIONS ORDERED OR SURGICAL OR PROCEDURE REFERRAL, . Reviewed labs and Testing on file Patient to follow diet low in cholesterol, fat, and sodium. Patient is advised to increase Exercise. Patient is recommended to lose weight. Reviewed Meds and discussed common side effects Continue as directed Pt to follow with her specialists Pulm ordered 6 min walk - will look into scheduling Pt is set to see cardio next week Consider referral to local pulm - pt does not want to see dr nguyen but would like to see if cardio and pulm in [facility] can manage Will start referral to rheum - CREST /raynauds Cont with pod/wound clinic Consider referral to pain clinic Discussed the importance of compliance Patient is strongly advised to be compliant with recommendations. Return to Clinic sooner if needed. Patient denies further questions/concerns at this time Assessment/Plan Problem List Items Addressed This Visit ICD-10-CM Hypertension associated with diabetes (Multi) E11.59, I15.2 GERD (gastroesophageal reflux disease) K21.9 Controlled type 2 diabetes mellitus with hyperglycemia, without long-term current use of insulin (Multi) E11.65 Non-healing wound of lower extremity S81.809A Pulmonary hypertension (Multi) I27.20 Severe tricuspid regurgitation by prior echocardiogram I07.1 Other Visit Diagnoses Codes Hospital discharge follow-up - Primary Z09 CREST (calcinosis, Raynaud's phenomenon, esophageal dysfunction, sclerodactyly, telangiectasia) (Multi) M34.1 Relevant Orders Referral to Rheumatology Pulmonary HTN (Multi) I27.20 Relevant Orders Disability Placard FU in 4-6 weeks with gen check documented in this encounter [facility] Work Phone: 06-26-2023 Nurse Note Patient discharged home from [facility]. Patient IV was removed intact. Patient was switched over to cad pump and home cassette for discharge. Discharge instructions were given to and reviewed with patient at bedside. Patient and all belongings were taken off floor in wheelchair by patient transport to meet ride out front. Lary Verduzco RN documented in this encounter [facility] Work Phone: 06-26-2023 Miscellaneous Notes The patient's goals for the shift include Patient will become more educated on Remodulin, [facility] coming in am for education The clinical goals for the shift include Patient will have no more diarrhea s/p lactulose administration Over the shift, the patient did not complain of headaches. She refused scheduled pain medication throughout the shift. Doss dressing changed this morning for a planned discharge home. She would be switched to a cassette pump before discharge. Patient received imodium for diarrhea s/p lactulose. She had >4 hrs of uninterrupted sleep. She remained safe and without injury. Problem: Pain Goal: My pain/discomfort is manageable Outcome: Progressing Problem: Safety Goal: Patient will be injury free during hospitalization Outcome: Progressing Problem: Skin Goal: Prevent/minimize sheer/friction injuries Outcome: Progressing Flowsheets (Taken 06/25/2023 1705) Prevent/minimize sheer/friction injuries: HOB 30 degrees or less Patient remained stable. No c/o nausea/vomiting this shift. Patient still with no BM. Started on lactulose. Plan for possible discharge tomorrow. The patient's goals for the shift include Patient will become more educated on Remodulin, [facility] coming in am for education The clinical goals for the shift include Patient will have no complaints of headache throughout the shift Over the shift, the patient continued to complain of headaches, She received X2 doses of 975mg Tylenol and X1 dose of 200mg Caffeine. She continues to received Remodulin IV drip. Problem: Pain Goal: My pain/discomfort is manageable Outcome: Progressing Problem: Safety Goal: Patient will be injury free during hospitalization Outcome: Progressing Problem: Skin Goal: Participates in plan/prevention/treatment measures Outcome: Progressing Flowsheets (Taken 06/24/20231817) Participates in plan/prevention/treatment measures: Increase activity/out of bed for meals Patient c/o constipation. Bowel regimen adjusted. Patient with nausea/vomiting this shift. Relieved with zofran. Remodulin infusing per orders at 9 ng/kg/min. Brief history: Ms. Smith is a 37-year-old female with CREST, new diagnosis of PAH on remodulin that is being actively titrated. Called by the overnight resident regarding intractable headache, flushing, jaw pain, emesis x 2 that was not responsive to medical management. Last dose up titration was to remodulin 10ng/kg/min on 06/21- has been symptomatic intermittently since the titration. Given tylenol, caffeine, zofran for the above symptoms. Vitals are stable, with heart rate in the 80s, BP 130s/80s, saturating well on room air. Recommendations: - Dose reduction to previously tolerated dose of remodulin 9ng/kg/min - Pain/Nausea symptom management Assessed at bedside after change of dose: patient resting, comfortable, no acute distress. Hemodynamically stable. Headache resolved. Laura Mahmood Fellow Pulmonary and Critical Care The patient's goals for the shift include Patient will become more educated on Remodulin, [facility] coming in am for education The clinical goals for the shift include patient remains stable Patient at 0100am complained of chest pain. EKG done and labs drawn per MD. MD came to bedside patient began having s/s from Remodulin (looking flushed and severe pain) Vitals stable and MD ordered lower dose of Remodulin and IV Dilaudid for pain. After dilaudid given, tylenol, caffeine pill and Zofran given patient improved. Overnight paged to bedside by nurse for evaluation of chest pain. On my evaluation patient endorsing continued headache associated with nausea and emesis. She reports new onset blurry vision. Also reporting intermittent jaw pain, but none currently. States chest pain is transient, lasting several minutes. It is located over her right chest with radiation down her right arm. It is reproducible with palpation over the chest wall near catheter insertion site and in the intercostal muscles. She denies radiation into her jaw/neck/back/abdomen. She describes the pain as vibrations. It is aggravated by palpation and movement and relieved with emesis. It is a 4/10 in severity and decreased to 0/10 with emesis. She denies associated SOB or diaphoresis. She endorses chills. She is unsure of when last BM was, but charted to be 06/21. Objective: VS: T: 97.1 F, BP: 113/70, HR: 85, 96% on RA Exam: General: Resting in bed. Appears pale and uncomfortable Cardiovascular: RRR, + systolic murmur appreciated. Tenderness to palpation over right sided chest wall Pulmonary: CTAB, no increased WOB, on RA GI: +BS, soft, non-tender Neuro: CN II-XII intact, strength and sensation intact and symmetric bilaterally. No focal or localizing neurologic deficits appreciated. ECG- NSR with non-specific TWI in II, III, V1-V4 (unchanged from previous ECG) KUB- moderate stool burden, nonobstructive bowel gas pattern Assessment: 37 y.o. F with Type 2 DM, HTN, Raynaud's, CKD, chronic L leg wound with recent surgical debridement and recently diagnosed with pulmonary hypertension with likely underlying CREST syndrome admitted for further management of pulm HTN medication titration. Per chart review appears remodulin dosage last increased 06/21. Called and discussed with MICU fellow as skidder driver of symptoms thought to be secondary to remodulin dosage. Will plan to treat symptomatically and decrease remodulin dosage. Low concern for ongoing primary cardiac/neurologic process. Plan: - Symptomatic treatment with: Tylenol, caffeine tablets, and Zofran - Bisacodyl suppository for constipation - IV Dilaudid 0.4 mg now - Decrease remodulin to 9 ng/kg/min - CXR The patient's goals for the shift include having a decreased headache while on Remodulin The clinical goals for the shift include Pt will have decreased headache while tolerating Remodulin dose. Over the shift, the patient did make progress toward the following goals. Pt c/o minimal headache. Barriers to progression include nausea and continued low headache. Recommendations to address these barriers include scheduled caffeine and tylenol doses to help with headache, prn zofran to help with nausea. The patient's goals for the shift include Patient will become more educated on Remodulin, [facility] coming in am for education The clinical goals for the shift include patient will get >4hrs of sleep by the end of the shift Over the shift, the patient complained of 9/10 headache. She received X1 dose of 650mg Tylenol at night and a one-time dose of 975mg of Tylenol at 3am. She continued to receive Remodulin drip. She had about 4hrs of uninterrupted sleep for the rest of the morning. The patient's goals for the shift include Patient will become more educated on Remodulin, [facility] coming in am for education The clinical goals for the shift include Patient will tolerate remodulin rate increase with decreased report of headache Patient remained safe and free of falls during shift. No reports of pain during shift. Remodulin up titrated to 10ng/kg during shift with no reports of pain for the patient. Awaiting insurance approval for dispo The patient's goals for the shift include patient will have less anxiety this shift The clinical goals for the shift include Patient will remaine safe during the shift Over the shift, the patient did not make progress toward the following goals. Barriers to progression include patient still very anxious this shift. Recommendations to address these barriers include continue to monitor. Pt remained HDS and free of injury this shift. Pt had no s/s of headache, nausea, diarrhea, jaw pain through shift. Pulmonology team wanted to try uptitrating pt's Remodulin to 10 ng/kg/min - pt refused at this time. Pt worked with PT this shift. Pt had more Remodulin teaching this shift. Problem: Diabetes Goal: Achieve decreasing blood glucose levels by end of shift Outcome: Progressing Goal: Increase stability of blood glucose readings by end of shift Outcome: Progressing Goal: Decrease in ketones present in urine by end of shift Outcome: Progressing Goal: Maintain electrolyte levels within acceptable range throughout shift Outcome: Progressing Goal: Maintain glucose levels >70mg/dl to <250mg/dl throughout shift Outcome: Progressing Goal: No changes in neurological exam by end of shift Outcome: Progressing Goal: Learn about and adhere to nutrition recommendations by end of shift Outcome: Progressing Goal: Vital signs within normal range for age by end of shift Outcome: Progressing Goal: Increase self care and/or family involovement by end of shift Outcome: Progressing Goal: Receive DSME education by end of shift Outcome: Progressing Problem: Pain Goal: My pain/discomfort is manageable Outcome: Progressing Problem: Safety Goal: Patient will be injury free during hospitalization Outcome: Progressing Goal: I will remain free of falls Outcome: Progressing Problem: Psychosocial Needs Goal: Demonstrates ability to cope with hospitalization/illness Outcome: Progressing Goal: Collaborate with me, my family, and caregiver to identify my specific goals Outcome: Progressing Problem: Discharge Barriers Goal: My discharge needs are met Outcome: Progressing Problem: Skin Goal: Decreased wound size/increased tissue granulation at next dressing change Outcome: Progressing Goal: Participates in plan/prevention/treatment measures Outcome: Progressing Goal: Prevent/manage excess moisture Outcome: Progressing Goal: Prevent/minimize sheer/friction injuries Outcome: Progressing Goal: Promote/optimize nutrition Outcome: Progressing Goal: Promote skin healing Outcome: Progressing Problem: Fall/Injury Goal: Not fall by end of shift Outcome: Progressing Goal: Be free from injury by end of the shift Outcome: Progressing Goal: Verbalize understanding of personal risk factors for fall in the hospital Outcome: Progressing Goal: Verbalize understanding of risk factor reduction measures to prevent injury from fall in the home Outcome: Progressing Goal: Use assistive devices by end of the shift Outcome: Progressing Goal: Pace activities to prevent fatigue by end of the shift Outcome: Progressing Problem: Pain - Adult Goal: Verbalizes/displays adequate comfort level or baseline comfort level Outcome: Progressing Problem: Safety - Adult Goal: Free from fall injury Outcome: Progressing Problem: Discharge Planning Goal: Discharge to home or other facility with appropriate resources Outcome: Progressing Problem: Chronic Conditions and Co-morbidities Goal: Patient's chronic conditions and co-morbidity symptoms are monitored and maintained or improved Outcome: Progressing Problem: Pain Goal: Takes deep breaths with improved pain control throughout the shift Outcome: Progressing Goal: Turns in bed with improved pain control throughout the shift Outcome: Progressing Goal: Walks with improved pain control throughout the shift Outcome: Progressing Goal: Performs ADL's with improved pain control throughout shift Outcome: Progressing Goal: Participates in PT with improved pain control throughout the shift Outcome: Progressing Goal: Free from opioid side effects throughout the shift Outcome: Progressing Goal: Free from acute confusion related to pain meds throughout the shift Outcome: Progressing The patient's goals for the shift include patient will tolerate her Remodulin increase this shift The clinical goals for the shift include patient will remain safe during the shift Over the shift, the patient did not make progress toward the following goals. Barriers to progression include patient today with c/o headache. Recommendations to address these barriers include Md in room will continue to monitor. Problem: Pain Goal: My pain/discomfort is manageable 06/20/20231727 by Julieta Fan RN Outcome: Progressing 06/20/20231727 by Julieta Fan RN Outcome: Progressing 06/20/20231727 by Julieta Fan RN Outcome: Progressing Problem: Safety Goal: Patient will be injury free during hospitalization 06/20/20231727 by Julieta Fan RN Outcome: Progressing 06/20/20231727 by Julieta Fan RN Outcome: Progressing 06/20/20231727 by Julieta Fan RN Outcome: Progressing Goal: I will remain free of falls 06/20/20231727 by Julieta Fan, RN Outcome: Progressing 06/20/2023 1728 by Julieta Fan RN Outcome: Progressing 06/20/2023 1728 by Julieta Fan RN Outcome: Progressing Problem: Skin Goal: Decreased wound size/increased tissue granulation at next dressing change 06/20/2023 1728 by Julieta Fan, RN Outcome: Progressing 06/20/2023 1728 by Julieta Fan RN Outcome: Progressing 06/20/2023 1728 by Julieta Fan, RN Outcome: Progressing Goal: Participates in plan/prevention/treatment measures 06/20/2023 1728 by Julieta Fan, RN Outcome: Progressing 06/20/2023 1728 by Julieta Fan RN Outcome: Progressing 06/20/2023 172 by Julieta Fan RN Outcome: Progressing Goal: Prevent/manage excess moisture 06/20/2023 172 by Julieta Fan, RN Outcome: Progressing 06/20/2023 1728 by Julieta Fan, RN Outcome: Progressing 06/20/2023 172 by Julieta Fan RN Outcome: Progressing Goal: Prevent/minimize sheer/friction injuries 06/20/2023 172 by Julieta Fan, RN Outcome: Progressing 06/20/2023 1728 by Julieta Fan, RN Outcome: Progressing 06/20/2023 172 by Julieta Fan RN Outcome: Progressing Goal: Promote/optimize nutrition 06/20/2023 172 by Julieta Fan, RN Outcome: Progressing 06/20/2023 1728 by Julieta Fan, RN Outcome: Progressing 06/20/2023 1728 by Julieta Fan, RN Outcome: Progressing Goal: Promote skin healing 06/20/2023 1728 by Julieta Fan, RN Outcome: Progressing 06/20/2023 1728 by Julieta Fan, RN Outcome: Progressing 06/20/2023 1728 by Julieta Fan RN Outcome: Progressing Problem: Fall/Injury Goal: Not fall by end of shift 06/20/2023 1728 by Julieta Fan, RN Outcome: Progressing 06/20/2023 1728 by Julieta Fan, RN Outcome: Progressing 06/20/2023 1728 by Julieta Fan RN Outcome: Progressing Goal: Be free from injury by end of the shift 06/20/2023 1728 by Julieta Fan, RN Outcome: Progressing 06/20/2023 1728 by Julieta Fan RN Outcome: Progressing 06/20/2023 172 by Julieta Fan RN Outcome: Progressing Goal: Verbalize understanding of personal risk factors for fall in the hospital 06/20/20231727 by Julieta Fan RN Outcome: Progressing 06/20/2023 172 by Julieta Fan RN Outcome: Progressing 06/20/20231727 by Julieta Fan RN Outcome: Progressing Goal: Verbalize understanding of risk factor reduction measures to prevent injury from fall in the home 06/20/2023 172 by Julieta Fan RN Outcome: Progressing 06/20/2023 172 by Julieta Fan RN Outcome: Progressing 06/20/20231727 by Julieta Fan RN Outcome: Progressing Goal: Use assistive devices by end of the shift 06/20/20231727 by Julieta Fan RN Outcome: Progressing 06/20/20231727 by Julieta Fan RN Outcome: Progressing 06/20/20231727 by Julieta Fan RN Outcome: Progressing Goal: Pace activities to prevent fatigue by end of the shift 06/20/20231727 by Julieta Fan RN Outcome: Progressing 06/20/20231727 by Julieta Fan RN Outcome: Progressing 06/20/20231727 by Julieta Fan RN Outcome: Progressing The patient's goals for the shift include Patient will become more educated on Remodulin, [facility] coming in am for education Pt HDS, increased Remodulin dose. Continues to be educated with [facility] on Remodulin. atient concerned about financial situation as she can't work due health status. I suggested she speak to [employer] about concerns before she falls behind. In addition, I provided her with resources in [facility] that maybe able to provide some chou assistance in the meantime. Discussed the following topics on behalf of the patient: [] Behavioral Health Assistance [] Case Management [] Auger Supervisor Assistance [] Digital Equity Assistance [] Dental Health Assistance [] Education Assistance [] Employment Assistance [x] Financial Strain Relief Assistance [] Food Insecurity Assistance [] Healthcare Coverage Assistance [x] Housing Stability Assistance [] IP Violence Relief Assistance [] Legal Assistance [] Physical Activity Assistance [] Social Connection Assistance [] Stress Relief Assistance [] Substance Abuse Assistance [] Transportation Assistance [] Utility Assistance [] Other: [insert comment here] Next Steps: Katelyn Esquivel LCSW Labs and imaging followed. Xrays negative. Uric Acid normal Patient unlikely to have gout based on clinical exam and labs. Likely peripheral neuropathy onset. Start/Continue gabapentin and titrate as needed. Podiatry will sign off at this time. Markus Newman DPM PGY-3 Please SecureChat if any questions Associated attestation - Lida Villarreal DPM - 06/20/2023 1:13 PM EDT I reviewed the resident/fellow's documentation and discussed the patient with the resident/fellow. I agree with the resident/fellow's medical decision making as documented in the note. Lida Villarreal DPM The patient's goals for the shift include Patient will become more educated on Remodulin, [facility] coming in am for education The clinical goals for the shift include Patient will rate right foot pain less than 5/10 by the end of shift Over the shift, the patient remained safe and without injury. She received 2.5mg of Oxycodone and 650mg Tylenol for 7/10 right foot pain. Pain subsided over night. She also got 2g of Mg for a 1.75 level. The patient got >4hrs of uninterrupted sleep. Problem: Diabetes Goal: Achieve decreasing blood glucose levels by end of shift Outcome: Progressing Goal: Increase stability of blood glucose readings by end of shift Outcome: Progressing Goal: Decrease in ketones present in urine by end of shift Outcome: Progressing Goal: Maintain electrolyte levels within acceptable range throughout shift Outcome: Progressing Goal: Maintain glucose levels >70mg/dl to <250mg/dl throughout shift Outcome: Progressing Goal: No changes in neurological exam by end of shift Outcome: Progressing Goal: Learn about and adhere to nutrition recommendations by end of shift Outcome: Progressing Goal: Vital signs within normal range for age by end of shift Outcome: Progressing Goal: Increase self care and/or family involovement by end of shift Outcome: Progressing Goal: Receive DSME education by end of shift Outcome: Progressing Problem: Pain Goal: Takes deep breaths with improved pain control throughout the shift Outcome: Progressing Goal: Turns in bed with improved pain control throughout the shift Outcome: Progressing Goal: Walks with improved pain control throughout the shift Outcome: Progressing Goal: Performs ADL's with improved pain control throughout shift Outcome: Progressing Goal: Participates in PT with improved pain control throughout the shift Outcome: Progressing Goal: Free from opioid side effects throughout the shift Outcome: Progressing Goal: Free from acute confusion related to pain meds throughout the shift Outcome: Progressing The patient's goals for the shift include Patient will become more educated on Remodulin, [facility] coming in am for education Pt HDS, [facility] came in for Remodulin teaching. Podiatry consulted for pain in feet. The patient's goals for the shift include Patient will become more educated on Remodulin, [facility] coming in am for education The clinical goals for the shift include Patient will have improved LIM Over the shift, the patient did verbalize she became a little dizzy when coming back from bathroom which lasted approximately 45 seconds. Patient has concerns regarding her numbness and tingling and swelling in her Bilateral feet and legs. She also has discoloration in Left Leg which she has concerns. Per patient she has an appointment with [facility] to start education process for remodulin. Patient medicated for bilateral leg pain. Patient remained safe free from falls and injury this shift. Problem: Diabetes Goal: Achieve decreasing blood glucose levels by end of shift Outcome: Progressing Goal: Increase stability of blood glucose readings by end of shift Outcome: Progressing Goal: Decrease in ketones present in urine by end of shift Outcome: Progressing Goal: Maintain electrolyte levels within acceptable range throughout shift Outcome: Progressing Goal: Maintain glucose levels >70mg/dl to <250mg/dl throughout shift Outcome: Progressing Goal: No changes in neurological exam by end of shift Outcome: Progressing Goal: Learn about and adhere to nutrition recommendations by end of shift Outcome: Progressing Goal: Vital signs within normal range for age by end of shift Outcome: Progressing Goal: Increase self care and/or family involovement by end of shift Outcome: Progressing Goal: Receive DSME education by end of shift Outcome: Progressing Problem: Pain Goal: My pain/discomfort is manageable Outcome: Progressing Problem: Safety Goal: Patient will be injury free during hospitalization Outcome: Progressing Goal: I will remain free of falls Outcome: Progressing Problem: Psychosocial Needs Goal: Demonstrates ability to cope with hospitalization/illness Outcome: Progressing Goal: Collaborate with me, my family, and caregiver to identify my specific goals Outcome: Progressing Flowsheets (Taken 06/18/20231934) Cultural Requests During Hospitalization: none Spiritual Requests During Hospitalization: none Problem: Discharge Barriers Goal: My discharge needs are met Outcome: Progressing Problem: Skin Goal: Decreased wound size/increased tissue granulation at next dressing change Outcome: Progressing Flowsheets (Taken 06/19/2023527) Decreased wound size/increased tissue granulation at next dressing change: Promote sleep for wound healing Protective dressings over bony prominences Goal: Participates in plan/prevention/treatment measures Outcome: Progressing Flowsheets (Taken 06/19/2023527) Participates in plan/prevention/treatment measures: Increase activity/out of bed for meals Discuss with provider PT/OT consult Elevate heels Goal: Prevent/manage excess moisture Outcome: Progressing Flowsheets (Taken 06/18/2023630) Prevent/manage excess moisture: Cleanse incontinence/protect with barrier cream Follow provider orders for dressing changes Monitor for/manage infection if present Moisturize dry skin Goal: Prevent/minimize sheer/friction injuries Outcome: Progressing Flowsheets (Taken 06/18/2023630) Prevent/minimize sheer/friction injuries: HOB 30 degrees or less Increase activity/out of bed for meals Turn/reposition every 2 hours/use positioning/transfer devices Use pull sheet Utilize specialty bed per algorithm Goal: Promote/optimize nutrition Outcome: Progressing Flowsheets (Taken 06/19/2023527) Promote/optimize nutrition: Consume > 50% meals/supplements Monitor/record intake including meals Offer water/supplements/favorite foods Goal: Promote skin healing Outcome: Progressing Flowsheets (Taken 06/16/2023 0321) Promote skin healing: Assess skin/pad under line(s)/device(s) Ensure correct size (line/device) and apply per industrial equipment wirer instructions Rotate device position/do not position patient on device Turn/reposition every 2 hours/use positioning/transfer devices Protective dressings over bony prominences Problem: Skin Goal: Participates in plan/prevention/treatment measures Outcome: Progressing Flowsheets (Taken 06/19/2023 0528) Participates in plan/prevention/treatment measures: Increase activity/out of bed for meals Discuss with provider PT/OT consult Elevate heels Problem: Fall/Injury Goal: Not fall by end of shift Outcome: Progressing Goal: Be free from injury by end of the shift Outcome: Progressing Goal: Verbalize understanding of personal risk factors for fall in the hospital Outcome: Progressing Goal: Verbalize understanding of risk factor reduction measures to prevent injury from fall in the home Outcome: Progressing Goal: Use assistive devices by end of the shift Outcome: Progressing Goal: Pace activities to prevent fatigue by end of the shift Outcome: Progressing The patient's goals for the shift include Pateint would like to get cleaned up and get bed changed The clinical goals for the shift include Patient will have improved LIM Over the shift, the patient had a bed change/was able to get cleaned up well to promote a sense of wellbeing, mesh panties provided. Hair washed. Patient reports 0/10 pain and remains on oxygen. Patient would like to talk to [facility] Team to discuss Plan Of Care. Patient remained safe free from falls and injury this shift. Problem: Diabetes Goal: Achieve decreasing blood glucose levels by end of shift Outcome: Progressing Goal: Increase stability of blood glucose readings by end of shift Outcome: Progressing Goal: Decrease in ketones present in urine by end of shift Outcome: Progressing Goal: Maintain electrolyte levels within acceptable range throughout shift Outcome: Progressing Goal: Maintain glucose levels >70mg/dl to <250mg/dl throughout shift Outcome: Progressing Goal: No changes in neurological exam by end of shift Outcome: Progressing Goal: Learn about and adhere to nutrition recommendations by end of shift Outcome: Progressing Goal: Vital signs within normal range for age by end of shift Outcome: Progressing Goal: Increase self care and/or family involovement by end of shift Outcome: Progressing Goal: Receive DSME education by end of shift Outcome: Progressing Problem: Pain Goal: My pain/discomfort is manageable Outcome: Progressing Problem: Safety Goal: Patient will be injury free during hospitalization Outcome: Progressing Goal: I will remain free of falls Outcome: Progressing Problem: Psychosocial Needs Goal: Demonstrates ability to cope with hospitalization/illness Outcome: Progressing Goal: Collaborate with me, my family, and caregiver to identify my specific goals Outcome: Progressing Flowsheets (Taken 06/17/2023 1930) Cultural Requests During Hospitalization: none Spiritual Requests During Hospitalization: none Problem: Discharge Barriers Goal: My discharge needs are met Outcome: Progressing Problem: Skin Goal: Decreased wound size/increased tissue granulation at next dressing change Outcome: Progressing Flowsheets (Taken 06/18/2023630) Decreased wound size/increased tissue granulation at next dressing change: Promote sleep for wound healing Protective dressings over bony prominences Goal: Participates in plan/prevention/treatment measures Outcome: Progressing Flowsheets (Taken 06/18/2023630) Participates in plan/prevention/treatment measures: Elevate heels Increase activity/out of bed for meals Goal: Prevent/manage excess moisture Outcome: Progressing Flowsheets (Taken 06/18/2023630) Prevent/manage excess moisture: Cleanse incontinence/protect with barrier cream Follow provider orders for dressing changes Monitor for/manage infection if present Moisturize dry skin Goal: Prevent/minimize sheer/friction injuries Outcome: Progressing Flowsheets (Taken 06/18/2023630) Prevent/minimize sheer/friction injuries: HOB 30 degrees or less Increase activity/out of bed for meals Turn/reposition every 2 hours/use positioning/transfer devices Use pull sheet Utilize specialty bed per algorithm Goal: Promote/optimize nutrition Outcome: Progressing Flowsheets (Taken 06/18/2023630) Promote/optimize nutrition: Consume > 50% meals/supplements Monitor/record intake including meals Offer water/supplements/favorite foods Goal: Promote skin healing Outcome: Progressing Flowsheets (Taken 06/16/2023 0321) Promote skin healing: Assess skin/pad under line(s)/device(s) Ensure correct size (line/device) and apply per industrial equipment wirer instructions Rotate device position/do not position patient on device Turn/reposition every 2 hours/use positioning/transfer devices Protective dressings over bony prominences Problem: Fall/Injury Goal: Not fall by end of shift Outcome: Progressing Goal: Be free from injury by end of the shift Outcome: Progressing Goal: Verbalize understanding of personal risk factors for fall in the hospital Outcome: Progressing Goal: Verbalize understanding of risk factor reduction measures to prevent injury from fall in the home Outcome: Progressing Goal: Use assistive devices by end of the shift Outcome: Progressing Goal: Pace activities to prevent fatigue by end of the shift Outcome: Progressing Problem: Safety - Adult Goal: Free from fall injury Outcome: Progressing Problem: Discharge Planning Goal: Discharge to home or other facility with appropriate resources Outcome: Progressing Problem: Chronic Conditions and Co-morbidities Goal: Patient's chronic conditions and co-morbidity symptoms are monitored and maintained or improved Outcome: Progressing Problem: Pain Goal: Takes deep breaths with improved pain control throughout the shift Outcome: Progressing Goal: Turns in bed with improved pain control throughout the shift Outcome: Progressing Goal: Walks with improved pain control throughout the shift Outcome: Progressing Goal: Performs ADL's with improved pain control throughout shift Outcome: Progressing Goal: Participates in PT with improved pain control throughout the shift Outcome: Progressing Goal: Free from opioid side effects throughout the shift Outcome: Progressing Goal: Free from acute confusion related to pain meds throughout the shift Outcome: Progressing Pt remained HDS and free of injury this shift. Pt remains on Remodulin gtt at 7 ng/kg/min. Pt expressing concerns regarding Remodulin infusion once medically cleared to be discharged. Pt's questions regarding Doss catheter answered. Pt had an uneventful day. Pt has had no adverse symptoms since uptitrating Remodulin. Problem: Pain Goal: My pain/discomfort is manageable Outcome: Progressing Problem: Safety Goal: Patient will be injury free during hospitalization Outcome: Progressing Goal: I will remain free of falls Outcome: Progressing Problem: Psychosocial Needs Goal: Demonstrates ability to cope with hospitalization/illness Outcome: Progressing Goal: Collaborate with me, my family, and caregiver to identify my specific goals Outcome: Progressing Problem: Discharge Barriers Goal: My discharge needs are met Outcome: Progressing Problem: Skin Goal: Decreased wound size/increased tissue granulation at next dressing change Outcome: Progressing Goal: Participates in plan/prevention/treatment measures Outcome: Progressing Goal: Prevent/manage excess moisture Outcome: Progressing Goal: Prevent/minimize sheer/friction injuries Outcome: Progressing Goal: Promote/optimize nutrition Outcome: Progressing Goal: Promote skin healing Outcome: Progressing Problem: Fall/Injury Goal: Not fall by end of shift Outcome: Progressing Goal: Be free from injury by end of the shift Outcome: Progressing Goal: Verbalize understanding of personal risk factors for fall in the hospital Outcome: Progressing Goal: Verbalize understanding of risk factor reduction measures to prevent injury from fall in the home Outcome: Progressing Goal: Use assistive devices by end of the shift Outcome: Progressing Goal: Pace activities to prevent fatigue by end of the shift Outcome: Progressing Problem: Pain - Adult Goal: Verbalizes/displays adequate comfort level or baseline comfort level Outcome: Progressing Problem: Safety - Adult Goal: Free from fall injury Outcome: Progressing Problem: Discharge Planning Goal: Discharge to home or other facility with appropriate resources Outcome: Progressing Problem: Chronic Conditions and Co-morbidities Goal: Patient's chronic conditions and co-morbidity symptoms are monitored and maintained or improved Outcome: Progressing Problem: Pain Goal: Takes deep breaths with improved pain control throughout the shift Outcome: Progressing Goal: Turns in bed with improved pain control throughout the shift Outcome: Progressing Goal: Walks with improved pain control throughout the shift Outcome: Progressing Goal: Performs ADL's with improved pain control throughout shift Outcome: Progressing Goal: Participates in PT with improved pain control throughout the shift Outcome: Progressing Goal: Free from opioid side effects throughout the shift Outcome: Progressing Goal: Free from acute confusion related to pain meds throughout the shift Outcome: Progressing The patient's goals for the shift include Patient will be able to see improvement with her leg and have less SOB The clinical goals for the shift include Patient will have improved LIM Over the shift, the patient reports improved pain in Left Leg. Patient reports 0/10 pain and has no side effects from Remodulin titration. Patient would like to start education on Remodulin to make cartridges with company as soon as we are able to set up. Patient remained safe free from falls and injury this shift. Problem: Diabetes Goal: Achieve decreasing blood glucose levels by end of shift Outcome: Progressing Goal: Increase stability of blood glucose readings by end of shift Outcome: Progressing Goal: Decrease in ketones present in urine by end of shift Outcome: Progressing Goal: Maintain electrolyte levels within acceptable range throughout shift Outcome: Progressing Goal: Maintain glucose levels >70mg/dl to <250mg/dl throughout shift Outcome: Progressing Goal: No changes in neurological exam by end of shift Outcome: Progressing Goal: Learn about and adhere to nutrition recommendations by end of shift Outcome: Progressing Goal: Vital signs within normal range for age by end of shift Outcome: Progressing Goal: Increase self care and/or family involovement by end of shift Outcome: Progressing Goal: Receive DSME education by end of shift Outcome: Progressing Problem: Pain Goal: My pain/discomfort is manageable Outcome: Progressing Problem: Safety Goal: Patient will be injury free during hospitalization Outcome: Progressing Goal: I will remain free of falls Outcome: Progressing Problem: Psychosocial Needs Goal: Demonstrates ability to cope with hospitalization/illness Outcome: Progressing Goal: Collaborate with me, my family, and caregiver to identify my specific goals Outcome: Progressing Flowsheets (Taken 06/16/20232019) Cultural Requests During Hospitalization: none Spiritual Requests During Hospitalization: none Problem: Discharge Barriers Goal: My discharge needs are met Outcome: Progressing Problem: Skin Goal: Decreased wound size/increased tissue granulation at next dressing change Outcome: Progressing Goal: Participates in plan/prevention/treatment measures Outcome: Progressing Goal: Prevent/manage excess moisture Outcome: Progressing Goal: Prevent/minimize sheer/friction injuries Outcome: Progressing Goal: Promote/optimize nutrition Outcome: Progressing Goal: Promote skin healing Outcome: Progressing Problem: Fall/Injury Goal: Not fall by end of shift Outcome: Progressing Goal: Be free from injury by end of the shift Outcome: Progressing Goal: Verbalize understanding of personal risk factors for fall in the hospital Outcome: Progressing Goal: Verbalize understanding of risk factor reduction measures to prevent injury from fall in the home Outcome: Progressing Goal: Use assistive devices by end of the shift Outcome: Progressing Goal: Pace activities to prevent fatigue by end of the shift Outcome: Progressing Problem: Pain - Adult Goal: Verbalizes/displays adequate comfort level or baseline comfort level Outcome: Progressing Problem: Safety - Adult Goal: Free from fall injury Outcome: Progressing Problem: Discharge Planning Goal: Discharge to home or other facility with appropriate resources Outcome: Progressing Problem: Chronic Conditions and Co-morbidities Goal: Patient's chronic conditions and co-morbidity symptoms are monitored and maintained or improved Outcome: Progressing Problem: Pain Goal: Takes deep breaths with improved pain control throughout the shift Outcome: Progressing Goal: Turns in bed with improved pain control throughout the shift Outcome: Progressing Goal: Walks with improved pain control throughout the shift Outcome: Progressing Goal: Performs ADL's with improved pain control throughout shift Outcome: Progressing Goal: Participates in PT with improved pain control throughout the shift Outcome: Progressing Goal: Free from opioid side effects throughout the shift Outcome: Progressing Goal: Free from acute confusion related to pain meds throughout the shift Outcome: Progressing Pt remained HDS and free of injury this shift. Pt's Remodulin uptitrated to 7 ng/kg/min this shift - pt without any adverse symptoms. Pt's LLE dressing changed this shift. Pt had an uneventful day. Problem: Diabetes Goal: Achieve decreasing blood glucose levels by end of shift Outcome: Progressing Goal: Increase stability of blood glucose readings by end of shift Outcome: Progressing Goal: Decrease in ketones present in urine by end of shift Outcome: Progressing Goal: Maintain electrolyte levels within acceptable range throughout shift Outcome: Progressing Goal: Maintain glucose levels >70mg/dl to <250mg/dl throughout shift Outcome: Progressing Goal: No changes in neurological exam by end of shift Outcome: Progressing Goal: Learn about and adhere to nutrition recommendations by end of shift Outcome: Progressing Goal: Vital signs within normal range for age by end of shift Outcome: Progressing Goal: Increase self care and/or family involovement by end of shift Outcome: Progressing Goal: Receive DSME education by end of shift Outcome: Progressing Problem: Pain Goal: My pain/discomfort is manageable Outcome: Progressing Problem: Safety Goal: Patient will be injury free during hospitalization Outcome: Progressing Goal: I will remain free of falls Outcome: Progressing Problem: Psychosocial Needs Goal: Demonstrates ability to cope with hospitalization/illness Outcome: Progressing Goal: Collaborate with me, my family, and caregiver to identify my specific goals Outcome: Progressing Problem: Discharge Barriers Goal: My discharge needs are met Outcome: Progressing Problem: Skin Goal: Decreased wound size/increased tissue granulation at next dressing change Outcome: Progressing Goal: Participates in plan/prevention/treatment measures Outcome: Progressing Goal: Prevent/manage excess moisture Outcome: Progressing Goal: Prevent/minimize sheer/friction injuries Outcome: Progressing Goal: Promote/optimize nutrition Outcome: Progressing Goal: Promote skin healing Outcome: Progressing Problem: Fall/Injury Goal: Not fall by end of shift Outcome: Progressing Goal: Be free from injury by end of the shift Outcome: Progressing Goal: Verbalize understanding of personal risk factors for fall in the hospital Outcome: Progressing Goal: Verbalize understanding of risk factor reduction measures to prevent injury from fall in the home Outcome: Progressing Goal: Use assistive devices by end of the shift Outcome: Progressing Goal: Pace activities to prevent fatigue by end of the shift Outcome: Progressing Problem: Pain - Adult Goal: Verbalizes/displays adequate comfort level or baseline comfort level Outcome: Progressing Problem: Safety - Adult Goal: Free from fall injury Outcome: Progressing Problem: Discharge Planning Goal: Discharge to home or other facility with appropriate resources Outcome: Progressing Problem: Chronic Conditions and Co-morbidities Goal: Patient's chronic conditions and co-morbidity symptoms are monitored and maintained or improved Outcome: Progressing Problem: Pain Goal: Takes deep breaths with improved pain control throughout the shift Outcome: Progressing Goal: Turns in bed with improved pain control throughout the shift Outcome: Progressing Goal: Walks with improved pain control throughout the shift Outcome: Progressing Goal: Performs ADL's with improved pain control throughout shift Outcome: Progressing Goal: Participates in PT with improved pain control throughout the shift Outcome: Progressing Goal: Free from opioid side effects throughout the shift Outcome: Progressing Goal: Free from acute confusion related to pain meds throughout the shift Outcome: Progressing The patient's goals for the shift include Patient will be able to see improvement with her leg and have less SOB The clinical goals for the shift include Patient will have improved LIM Over the shift, the patient reported 7/10 pain in left leg deep pain, patient medicated with oxycodone 2.5 mg one time dose with some reduction in pain to 4/10. Patient had US during the shift. Patient remained safe free from falls and injury this shift. Problem: Diabetes Goal: Achieve decreasing blood glucose levels by end of shift Outcome: Progressing Goal: Increase stability of blood glucose readings by end of shift Outcome: Progressing Goal: Decrease in ketones present in urine by end of shift Outcome: Progressing Goal: Maintain electrolyte levels within acceptable range throughout shift Outcome: Progressing Goal: Maintain glucose levels >70mg/dl to <250mg/dl throughout shift Outcome: Progressing Goal: No changes in neurological exam by end of shift Outcome: Progressing Goal: Learn about and adhere to nutrition recommendations by end of shift Outcome: Progressing Goal: Vital signs within normal range for age by end of shift Outcome: Progressing Goal: Increase self care and/or family involovement by end of shift Outcome: Progressing Goal: Receive DSME education by end of shift Outcome: Progressing Problem: Pain Goal: My pain/discomfort is manageable Outcome: Progressing Problem: Safety Goal: Patient will be injury free during hospitalization Outcome: Progressing Goal: I will remain free of falls Outcome: Progressing Problem: Psychosocial Needs Goal: Demonstrates ability to cope with hospitalization/illness Outcome: Progressing Goal: Collaborate with me, my family, and caregiver to identify my specific goals Outcome: Progressing Flowsheets (Taken 06/15/20231944) Cultural Requests During Hospitalization: none Spiritual Requests During Hospitalization: none Problem: Discharge Barriers Goal: My discharge needs are met Outcome: Progressing Problem: Skin Goal: Decreased wound size/increased tissue granulation at next dressing change Outcome: Progressing Flowsheets (Taken 06/16/2023320) Decreased wound size/increased tissue granulation at next dressing change: Promote sleep for wound healing Protective dressings over bony prominences Goal: Participates in plan/prevention/treatment measures Outcome: Progressing Flowsheets (Taken 06/13/2023145 by Eulalio Acosta, JOHN) Participates in plan/prevention/treatment measures: Discuss with provider PT/OT consult Elevate heels Increase activity/out of bed for meals Goal: Prevent/manage excess moisture Outcome: Progressing Flowsheets (Taken 06/16/2023320) Prevent/manage excess moisture: Cleanse incontinence/protect with barrier cream Follow provider orders for dressing changes Monitor for/manage infection if present Goal: Prevent/minimize sheer/friction injuries Outcome: Progressing Flowsheets (Taken 06/13/2023145 by Eulalio Acosta, JOHN) Prevent/minimize sheer/friction injuries: HOB 30 degrees or less Turn/reposition every 2 hours/use positioning/transfer devices Utilize specialty bed per algorithm Complete micro-shifts as needed if patient unable. Adjust patient position to relieve pressure points, not a full turn Use pull sheet Increase activity/out of bed for meals Goal: Promote/optimize nutrition Outcome: Progressing Flowsheets (Taken 06/16/2023320) Promote/optimize nutrition: Consume > 50% meals/supplements Monitor/record intake including meals Offer water/supplements/favorite foods Goal: Promote skin healing Outcome: Progressing Flowsheets (Taken 06/16/2023 0321) Promote skin healing: Assess skin/pad under line(s)/device(s) Ensure correct size (line/device) and apply per industrial equipment wirer instructions Rotate device position/do not position patient on device Turn/reposition every 2 hours/use positioning/transfer devices Protective dressings over bony prominences Problem: Fall/Injury Goal: Not fall by end of shift Outcome: Progressing Goal: Be free from injury by end of the shift Outcome: Progressing Goal: Verbalize understanding of personal risk factors for fall in the hospital Outcome: Progressing Goal: Verbalize understanding of risk factor reduction measures to prevent injury from fall in the home Outcome: Progressing Goal: Use assistive devices by end of the shift Outcome: Progressing Goal: Pace activities to prevent fatigue by end of the shift Outcome: Progressing Problem: Pain - Adult Goal: Verbalizes/displays adequate comfort level or baseline comfort level Outcome: Progressing Problem: Safety - Adult Goal: Free from fall injury Outcome: Progressing Problem: Safety - Adult Goal: Free from fall injury Outcome: Progressing Problem: Discharge Planning Goal: Discharge to home or other facility with appropriate resources Outcome: Progressing Problem: Chronic Conditions and Co-morbidities Goal: Patient's chronic conditions and co-morbidity symptoms are monitored and maintained or improved Outcome: Progressing Problem: Pain Goal: Takes deep breaths with improved pain control throughout the shift Outcome: Progressing Goal: Turns in bed with improved pain control throughout the shift Outcome: Progressing Goal: Walks with improved pain control throughout the shift Outcome: Progressing Goal: Performs ADL's with improved pain control throughout shift Outcome: Progressing Goal: Participates in PT with improved pain control throughout the shift Outcome: Progressing Goal: Free from opioid side effects throughout the shift Outcome: Progressing Goal: Free from acute confusion related to pain meds throughout the shift Outcome: Progressing [facility] this [facility]. Pt remained HDS and free of injury this shift. Pt remains on Remodulin gtt with no complaints. Pt has no complaints of CP, SOB, N/V, dizziness/lightheadedness. Problem: Diabetes Goal: Achieve decreasing blood glucose levels by end of shift Outcome: Progressing Goal: Increase stability of blood glucose readings by end of shift Outcome: Progressing Goal: Decrease in ketones present in urine by end of shift Outcome: Progressing Goal: Maintain electrolyte levels within acceptable range throughout shift Outcome: Progressing Goal: Maintain glucose levels >70mg/dl to <250mg/dl throughout shift Outcome: Progressing Goal: No changes in neurological exam by end of shift Outcome: Progressing Goal: Learn about and adhere to nutrition recommendations by end of shift Outcome: Progressing Goal: Vital signs within normal range for age by end of shift Outcome: Progressing Goal: Increase self care and/or family involovement by end of shift Outcome: Progressing Goal: Receive DSME education by end of shift Outcome: Progressing Problem: Pain Goal: My pain/discomfort is manageable Outcome: Progressing Problem: Safety Goal: Patient will be injury free during hospitalization Outcome: Progressing Goal: I will remain free of falls Outcome: Progressing Problem: Psychosocial Needs Goal: Demonstrates ability to cope with hospitalization/illness Outcome: Progressing Goal: Collaborate with me, my family, and caregiver to identify my specific goals Outcome: Progressing Problem: Discharge Barriers Goal: My discharge needs are met Outcome: Progressing Problem: Skin Goal: Decreased wound size/increased tissue granulation at next dressing change Outcome: Progressing Goal: Participates in plan/prevention/treatment measures Outcome: Progressing Goal: Prevent/manage excess moisture Outcome: Progressing Goal: Prevent/minimize sheer/friction injuries Outcome: Progressing Goal: Promote/optimize nutrition Outcome: Progressing Goal: Promote skin healing Outcome: Progressing Problem: Fall/Injury Goal: Not fall by end of shift Outcome: Progressing Goal: Be free from injury by end of the shift Outcome: Progressing Goal: Verbalize understanding of personal risk factors for fall in the hospital Outcome: Progressing Goal: Verbalize understanding of risk factor reduction measures to prevent injury from fall in the home Outcome: Progressing Goal: Use assistive devices by end of the shift Outcome: Progressing Goal: Pace activities to prevent fatigue by end of the shift Outcome: Progressing Problem: Pain - Adult Goal: Verbalizes/displays adequate comfort level or baseline comfort level Outcome: Progressing Problem: Safety - Adult Goal: Free from fall injury Outcome: Progressing Problem: Discharge Planning Goal: Discharge to home or other facility with appropriate resources Outcome: Progressing Problem: Chronic Conditions and Co-morbidities Goal: Patient's chronic conditions and co-morbidity symptoms are monitored and maintained or improved Outcome: Progressing Problem: Pain Goal: Takes deep breaths with improved pain control throughout the shift Outcome: Progressing Goal: Turns in bed with improved pain control throughout the shift Outcome: Progressing Goal: Walks with improved pain control throughout the shift Outcome: Progressing Goal: Performs ADL's with improved pain control throughout shift Outcome: Progressing Goal: Participates in PT with improved pain control throughout the shift Outcome: Progressing Goal: Free from opioid side effects throughout the shift Outcome: Progressing Goal: Free from acute confusion related to pain meds throughout the shift Outcome: Progressing The patient's goals for the shift include pain control The clinical goals for the shift include Patient will remain hemodynamically stable through the shift Over the shift, the patient did not make progress toward the following goals. Barriers to progression include . Recommendations to address these barriers include . Interventional Radiology Brief Postprocedure Note Attending: Nicolas Cortez MD Para Operator: Orlin Barron MD Diagnosis: pulmonary hypertension Description of procedure: Technically successful placement of a tunneled Doss catheter. The tunneled Doss catheter is ready to use. Please refer to full radiology report in PACS for full procedure details. Anesthesia: MAC Complications: None Estimated Blood Loss: minimal Medications As of 06/14/23 1556 [id number] (Zosyn) IV 3.375 g (mL/hr) Total dose: 37.13 g* Dosing weight: 81 *From user-documented volume Date/Time Rate/Dose/Volume Action 06/06/23 2151 3.375 g - 100 mL/hr (over 30 min) - 50 mL New Bag 2221 (over 30 min) Stopped 06/07/23 0343 3.375 g - 100 mL/hr (over 30 min) New Bag 0413 50 mL Stopped 0900 3.375 g - 100 mL/hr (over 30 min) New Bag 0930 50 mL Stopped 1503 3.375 g - 100 mL/hr (over 30 min) New Bag 1533 50 mL Stopped 2146 3.375 g - 100 mL/hr (over 30 min) - 50 mL New Bag 2214 0 mL 2216 (over 30 min) Stopped 06/08/23 0413 3.375 g - 100 mL/hr (over 30 min) New Bag 0443 50 mL Stopped 0939 3.375 g - 100 mL/hr (over 30 min) New Bag 1009 50 mL Stopped 1500 3.375 g - 100 mL/hr (over 30 min) New Bag 1530 50 mL Stopped 2121 3.375 g - 100 mL/hr (over 30 min) - 50 mL New Bag 2151 (over 30 min) Stopped 06/09/23 0404 3.375 g - 100 mL/hr (over 30 min) New Bag 0434 (over 30 min) Stopped 0912 3.375 g - 100 mL/hr (over 30 min) New Bag 0942 100 mL Stopped lactated Ringer's bolus 500 mL (mL/hr) Total volume: 1,000 mL* Dosing weight: 81 *From user-documented volume Date/Time Rate/Dose/Volume Action 06/06/23 2230 500 mL - 250 mL/hr (over 120 min) New Bag 2315 500 mL - 250 mL/hr (over 120 min) New Bag 06/07/23 0030 500 mL Stopped 0115 500 mL Stopped heparin (porcine) injection 5,000 Units (Units) Total dose: 105,000 Units* Dosing weight: 81 *Administration not included in total Date/Time Rate/Dose/Volume Action 06/06/23 2231 5,000 Units Given 06/07/23 0634 5,000 Units Given 1445 *5,000 Units Missed 2332 5,000 Units Given 06/08/23 0638 5,000 Units Given 1500 5,000 Units Given 2232 5,000 Units Given 06/09/23 0912 5,000 Units Given 1519 5,000 Units Given 2126 5,000 Units Given 06/10/23 0515 5,000 Units Given 1407 5,000 Units Given 06/11/23 0015 5,000 Units Given 0818 5,000 Units Given 1648 5,000 Units Given 06/12/23 0027 5,000 Units Given 0810 5,000 Units Given 1530 5,000 Units Given 06/13/23 0045 5,000 Units Given 0812 5,000 Units Given 1700 5,000 Units Given 06/14/23 0002 5,000 Units Given 0721 *Not included in total Held by provider 0800 *Not included in total Automatically Held heparin (porcine) injection - Omnicell Override Pull (Units) Total dose: 5,000 Units Date/Time Rate/Dose/Volume Action 06/06/23 2231 5,000 Units Given iohexol (OMNIPaque) 350 mg iodine/mL solution 80 mL (mL) Total volume: 80 mL Dosing weight: 81 Date/Time Rate/Dose/Volume Action 06/07/23 0014 80 mL Given acetaminophen (Tylenol) tablet 650 mg (mg) Total dose: 7,800 mg Dosing weight: 81 Date/Time Rate/Dose/Volume Action 06/07/23 0249 650 mg Given 06/08/23 0237 650 mg Given 2230 650 mg Given 06/09/232014 650 mg Given 2205 *650 mg Missed 06/10/23 0515 650 mg Given 2140 650 mg Given 06/11/23439 650 mg Given 2031 650 mg Given 06/12/23 0029 650 mg Given 2038 650 mg Given 06/13/23 204 650 mg Given 06/14/23 0837 650 mg Given acetaminophen (Tylenol) tablet 650 mg (mg) Total dose: 650 mg Dosing weight: 80.9 Date/Time Rate/Dose/Volume Action 06/09/23 2230 650 mg Given acetaminophen (Tylenol) oral liquid 650 mg (mg) Total dose: Cannot be calculated* Dosing weight: 81 *Administration dose not documented Date/Time Rate/Dose/Volume Action 06/07/23 0249 *Not included in total See Alternative acetaminophen (Tylenol) oral liquid 650 mg (mg) Total dose: Cannot be calculated* Dosing weight: 81 *Administration dose not documented Date/Time Rate/Dose/Volume Action 06/08/23 0237 *Not included in total See Alternative 223 *Not included in total See Alternative 06/09/232014 *Not included in total See Alternative 2206 *Not included in total See Alternative 06/10/23 0515 *Not included in total See Alternative 214 *Not included in total See Alternative 06/11/23 0440 *Not included in total See Alternative 2031 *Not included in total See Alternative 06/12/23 0029 *Not included in total See Alternative 2038 *Not included in total See Alternative 06/13/23 2042 *Not included in total See Alternative 06/14/23 0837 *Not included in total See Alternative acetaminophen (Tylenol) suppository 650 mg (mg) Total dose: Cannot be calculated* Dosing weight: 81 *Administration dose not documented Date/Time Rate/Dose/Volume Action 06/07/23 0249 *Not included in total See Alternative acetaminophen (Tylenol) suppository 650 mg (mg) Total dose: Cannot be calculated* Dosing weight: 81 *Administration dose not documented Date/Time Rate/Dose/Volume Action 06/08/23 0237 *Not included in total See Alternative 2231 *Not included in total See Alternative 06/09/23 2015 *Not included in total See Alternative 2206 *Not included in total See Alternative 06/10/23 0515 *Not included in total See Alternative 2141 *Not included in total See Alternative 06/11/23 0440 *Not included in total See Alternative 2031 *Not included in total See Alternative 06/12/23 0029 *Not included in total See Alternative 2038 *Not included in total See Alternative 06/13/23 204 *Not included in total See Alternative 06/14/23 0837 *Not included in total See Alternative HYDROmorphone (Dilaudid) injection 0.2 mg (mg) Total dose: 0.2 mg Dosing weight: 81 Date/Time Rate/Dose/Volume Action 06/07/23 0342 0.2 mg Given vancomycin in dextrose 5 % (Vancocin) IVPB 750 mg (mL/hr) Total dose: 750 mg* Dosing weight: 81 *From user-documented volume Date/Time Rate/Dose/Volume Action 06/07/23 1119 750 mg - 200 mL/hr (over 45 min) New Bag 1204 150 mL Stopped ondansetron (Zofran) injection - [employer]ell Override Pull (mg) Total dose: 4 mg Date/Time Rate/Dose/Volume Action 06/07/23 0905 4 mg Given ondansetron (Zofran) injection 4 mg (mg) Total dose: 24 mg Dosing weight: 81 Date/Time Rate/Dose/Volume Action 06/07/23 0905 4 mg Given 06/09/232023 4 mg Given 06/10/23 0947 4 mg Given 1428 4 mg Given 2031 4 mg Given 06/12/23 1530 4 mg Given [id number] (Draximage MAA) injection 4.3 millicurie (millicurie) Total dose: 4.3 millicurie Dosing weight: 81 Date/Time Rate/Dose/Volume Action 06/07/23 1002 4.3 millicurie Given oxyCODONE (Roxicodone) immediate release tablet 5 mg (mg) Total dose: 35 mg* Dosing weight: 81 *Administration not included in total Date/Time Rate/Dose/Volume Action 06/07/23 1403 5 mg Given 06/08/23 0237 5 mg Given 2230 5 mg Given 06/09/23 2016 5 mg Given 2206 *5 mg Missed 06/12/23 0030 5 mg Given 06/13/23 0207 5 mg Given 2042 5 mg Given oxyCODONE (Roxicodone) immediate release tablet 2.5 mg (mg) Total dose: 0 mg* Dosing weight: 81 *Administration not included in total Date/Time Rate/Dose/Volume Action 06/13/23 0206 *2.5 mg Missed oxyCODONE (Roxicodone) immediate release tablet 5 mg (mg) Total dose: 5 mg Dosing weight: 80.9 Date/Time Rate/Dose/Volume Action 06/09/23 2220 5 mg Given insulin lispro (HumaLOG) injection 0-5 Units (Units) Total dose: Cannot be calculated* Dosing weight: 81 *Administration dose not documented Date/Time Rate/Dose/Volume Action 06/07/23 1700 *Not included in total Missed 06/08/23 0800 *Not included in total Missed 1200 *Not included in total Missed 1700 *Not included in total Missed 06/09/23 0800 *Not included in total Missed 1200 *Not included in total Missed 1700 *Not included in total Missed 06/10/23 0800 *Not included in total Missed 1200 *Not included in total Missed 1700 *Not included in total Missed 06/11/23 0800 *Not included in total Missed 1200 *Not included in total Missed 1700 *Not included in total Missed 06/12/23 0800 *Not included in total Missed 1146 *1 Units Missed 1700 *Not included in total Missed 06/13/23 0800 *Not included in total Missed 1200 *Not included in total Missed 1700 *Not included in total Missed 06/14/23 0800 *Not included in total Missed 1200 *Not included in total Missed nitric oxide treatment Total dose: Cannot be calculated* Dosing weight: 81 *Administration does not have dose documented Date/Time Rate/Dose/Volume Action 06/07/23 1615 Start 2131 Rate Verify nitric oxide treatment Total dose: Cannot be calculated* Dosing weight: 81 *Administration does not have dose documented Date/Time Rate/Dose/Volume Action 06/08/23 0759 Rate Verify 1100 Rate Verify 1501 Rate Verify 06/09/23 0733 Rate Verify 0930 Start 1438 Rate Verify 1620 Stopped oxygen (O2) therapy (L/min) Total volume: Not documented* Dosing weight: 81 *Total volume has not been documented. View each administration to see the amount administered. Date/Time Rate/Dose/Volume Action 06/07/23 2131 4 L/min Rate Verify 06/08/23 0411 4 L/min Rate Verify 0759 Rate Verify 06/09/23 2000 Stopped 2300 2 L/min Start 06/10/23 0200 5 L/min Rate Change 0515 3 L/min Rate Change 2000 2 L/min Start 06/11/23 0000 Rate Verify 0400 2 L/min Rate Verify 0800 Rate Verify epoprostenol (Veletri) 500 mcg in sodium chloride 0.9% 100 mL (5 mcg/mL) bag (ng/kg/min) Total dose: Cannot be calculated* Dosing weight: 81 *Total user-documented volume 292.4 mL may contain volume from other administrations Date/Time Rate/Dose/Volume Action 06/07/23 1935 1 ng/kg/min - 0.97 mL/hr New Bag 06/08/23 0500 1 ng/kg/min - 0.97 mL/hr Rate Verify 0700 1 ng/kg/min - 0.97 mL/hr Rate Verify epoprostenol (Veletri) 500 mcg in sodium chloride 0.9% 100 mL (5 mcg/mL) bag (ng/kg/min) Total dose: Cannot be calculated* Dosing weight: 81 *Total user-documented volume 292.4 mL may contain volume from other administrations Date/Time Rate/Dose/Volume Action 06/08/23 1200 2 ng/kg/min - 1.94 mL/hr Rate Change epoprostenol (Veletri) 500 mcg in sodium chloride 0.9% 100 mL (5 mcg/mL) bag (ng/kg/min) Total dose: Cannot be calculated* Dosing weight: 81 *Total user-documented volume 292.4 mL may contain volume from other administrations Date/Time Rate/Dose/Volume Action 06/08/23 1903 3 ng/kg/min - 2.92 mL/hr New Bag 2000 3 ng/kg/min - 2.92 mL/hr Rate Verify 2100 3 ng/kg/min - 2.92 mL/hr Rate Verify 2200 3 ng/kg/min - 2.92 mL/hr Rate Verify 2300 3 ng/kg/min - 2.92 mL/hr Rate Verify 06/09/23 0000 3 ng/kg/min - 2.92 mL/hr Rate Verify 0100 3 ng/kg/min - 2.92 mL/hr Rate Verify 0200 3 ng/kg/min - 2.92 mL/hr Rate Verify 0300 3 ng/kg/min - 2.92 mL/hr Rate Verify 0400 3 ng/kg/min - 2.92 mL/hr Rate Verify 0800 3 ng/kg/min - 2.92 mL/hr Rate Verify epoprostenol (Veletri) 1,000 mcg in sodium chloride 0.9% 100 mL (10 mcg/mL) bag (ng/kg/min) Total dose: Cannot be calculated* Dosing weight: 81 *Total user-documented volume 292.4 mL may contain volume from other administrations Date/Time Rate/Dose/Volume Action 06/09/23 1229 4 ng/kg/min - 1.94 mL/hr New Bag 2000 4 ng/kg/min - 1.94 mL/hr Rate Verify 06/10/23 0400 4 ng/kg/min - 1.94 mL/hr Rate Verify 0800 4 ng/kg/min - 1.94 mL/hr Rate Verify epoprostenol (Veletri) 1,000 mcg in sodium chloride 0.9% 100 mL (10 mcg/mL) bag (ng/kg/min) Total dose: Cannot be calculated* Dosing weight: 81 *Total user-documented volume 292.4 mL may contain volume from other administrations Date/Time Rate/Dose/Volume Action 06/10/23 1403 5 ng/kg/min - 2.43 mL/hr New Bag epoprostenol (Veletri) 1,000 mcg in sodium chloride 0.9% 100 mL (10 mcg/mL) bag (ng/kg/min) Total dose: Cannot be calculated* Dosing weight: 81 *Total user-documented volume 292.4 mL may contain volume from other administrations Date/Time Rate/Dose/Volume Action 06/10/23 1849 6 ng/kg/min - 2.92 mL/hr New Bag 2000 6 ng/kg/min - 2.92 mL/hr Rate Verify 06/11/23 0000 6 ng/kg/min - 2.92 mL/hr Rate Verify 0400 6 ng/kg/min - 2.92 mL/hr Rate Verify epoprostenol (Veletri) 2,000 mcg in sodium chloride 0.9% 100 mL (20 mcg/mL) bag (ng/kg/min) Total dose: Cannot be calculated* Dosing weight: 81 *Total user-documented volume 292.4 mL may contain volume from other administrations Date/Time Rate/Dose/Volume Action 06/11/23 1458 6 ng/kg/min - 1.46 mL/hr New Bag 2000 6 ng/kg/min - 1.46 mL/hr Rate Verify 06/12/23 0000 6 ng/kg/min - 1.46 mL/hr Rate Verify 0400 6 ng/kg/min - 1.46 mL/hr Rate Verify 0700 6 ng/kg/min - 1.46 mL/hr Rate Verify 0800 6 ng/kg/min - 1.46 mL/hr Rate Verify 0900 6 ng/kg/min - 1.46 mL/hr Rate Verify 1000 6 ng/kg/min - 1.46 mL/hr Rate Verify 1100 6 ng/kg/min - 1.46 mL/hr Rate Verify 1200 6 ng/kg/min - 1.46 mL/hr Rate Verify 1300 6 ng/kg/min - 1.46 mL/hr Rate Verify 1400 6 ng/kg/min - 1.46 mL/hr Rate Verify 1500 6 ng/kg/min - 1.46 mL/hr Rate Verify 1530 Stopped 1536 6 ng/kg/min - 1.46 mL/hr Restarted 1600 6 ng/kg/min - 1.46 mL/hr Rate Verify 1700 6 ng/kg/min - 1.46 mL/hr Rate Verify 1800 6 ng/kg/min - 1.46 mL/hr Rate Verify epoprostenol (Veletri) 2,000 mcg in sodium chloride 0.9% 100 mL (20 mcg/mL) bag (ng/kg/min) Total dose: Cannot be calculated* Dosing weight: 81 *Total user-documented volume 292.4 mL may contain volume from other administrations Date/Time Rate/Dose/Volume Action 06/13/23 1000 6 ng/kg/min - 1.46 mL/hr New Bag 1100 6 ng/kg/min - 1.46 mL/hr Rate Verify 1200 6 ng/kg/min - 1.46 mL/hr Rate Verify 1300 6 ng/kg/min - 1.46 mL/hr Rate Verify 1400 6 ng/kg/min - 1.46 mL/hr Rate Verify 1500 6 ng/kg/min - 1.46 mL/hr Rate Verify 1600 6 ng/kg/min - 1.46 mL/hr Rate Verify 1700 6 ng/kg/min - 1.46 mL/hr Rate Verify 1800 6 ng/kg/min - 1.46 mL/hr Rate Verify 06/14/23 0800 6 ng/kg/min - 1.46 mL/hr Rate Verify 1100 6 ng/kg/min - 1.46 mL/hr New Bag 1200 6 ng/kg/min - 1.46 mL/hr Rate Verify DOBUTamine (Dobutrex) 1,000 mg in dextrose 5% 250 mL (4 mg/mL) infusion (premix) (mcg/kg/min) Total dose: 1,985,720 mcg* Dosing weight: 81 *From user-documented volume Date/Time Rate/Dose/Volume Action 06/07/23 1818 2.5 mcg/kg/min - 3.04 mL/hr New Bag 2100 2.5 mcg/kg/min - 3.04 mL/hr Rate Verify 06/08/23 0500 2.5 mcg/kg/min - 3.04 mL/hr Rate Verify 0700 2.5 mcg/kg/min - 3.04 mL/hr Rate Verify 1059 5 mcg/kg/min - 6.08 mL/hr Rate Change 1903 5 mcg/kg/min - 6.08 mL/hr Rate Verify 2000 5 mcg/kg/min - 6.08 mL/hr Rate Verify 2100 5 mcg/kg/min - 6.08 mL/hr Rate Verify 2200 5 mcg/kg/min - 6.08 mL/hr Rate Verify 2300 5 mcg/kg/min - 6.08 mL/hr Rate Verify 06/09/23 0000 5 mcg/kg/min - 6.08 mL/hr Rate Verify 0100 5 mcg/kg/min - 6.08 mL/hr Rate Verify 0200 5 mcg/kg/min - 6.08 mL/hr Rate Verify 0300 5 mcg/kg/min - 6.08 mL/hr Rate Verify 0400 5 mcg/kg/min - 6.08 mL/hr Rate Verify 0800 5 mcg/kg/min - 6.08 mL/hr Rate Verify 1900 5 mcg/kg/min - 6.08 mL/hr Rate Verify 2030 Stopped 2200 5 mcg/kg/min - 6.08 mL/hr Restarted 2332 5 mcg/kg/min - 6.08 mL/hr New Bag 06/10/23 0000 5 mcg/kg/min - 6.08 mL/hr Rate Verify 0400 5 mcg/kg/min - 6.08 mL/hr Rate Verify 0800 5 mcg/kg/min - 6.08 mL/hr Rate Verify 2000 5 mcg/kg/min - 6.08 mL/hr Rate Verify 06/11/23 0000 5 mcg/kg/min - 6.08 mL/hr Rate Verify 0400 5 mcg/kg/min - 6.08 mL/hr Rate Verify 0800 5 mcg/kg/min - 6.08 mL/hr Rate Verify 1135 2.5 mcg/kg/min - 3.04 mL/hr Rate Change 1613 Stopped vancomycin (Vancocin) 1,000 mg in dextrose 5% water 200 mL (mL/hr) Total dose: 1,000 mg* Dosing weight: 80.5 *From user-documented volume Date/Time Rate/Dose/Volume Action 06/08/23 0815 1,000 mg - 200 mL/hr (over 60 min) New Bag 0915 200 mL Stopped 06/09/23 0912 1,000 mg - 200 mL/hr (over 60 min) New Bag 1012 (over 60 min) Stopped sulfamethoxazole-trimethoprim (Bactrim DS) 800-160 mg per tablet 160 mg (mg) Total dose: 1,920 mg Dosing weight: 80.9 Date/Time Rate/Dose/Volume Action 06/09/23 1313 160 mg Given 2014 160 mg Given 2202 160 mg Given 06/10/23 0944 160 mg Given 2140 160 mg Given 06/11/23 0818 160 mg Given 2037 160 mg Given 06/12/23 0810 160 mg Given 9 160 mg Given 06/13/23 0812 160 mg Given 2041 160 mg Given 06/14/23 1140 160 mg Given pantoprazole (ProtoNix) EC tablet 40 mg (mg) Total dose: 80 mg* Dosing weight: 84.9 *Administration not included in total Date/Time Rate/Dose/Volume Action 06/11/23 0817 *40 mg Missed 06/12/23 0810 *40 mg Missed 06/13/23 0812 40 mg Given 06/14/23 0837 40 mg Given melatonin tablet 6 mg (mg) Total dose: 6 mg* Dosing weight: 84.9 *Administration not included in total Date/Time Rate/Dose/Volume Action 06/11/23 1830 6 mg Given 06/12/231999 *6 mg Missed 06/13/23 1800 *6 mg Missed trimethobenzamide (Tigan) injection 200 mg (mg) Total dose: 0 mg* Dosing weight: 84.9 *Administration not included in total Date/Time Rate/Dose/Volume Action 06/10/23 2100 *200 mg Missed digoxin (Lanoxin) tablet 125 mcg (mcg) Total dose: 500 mcg Dosing weight: 63.9 Date/Time Rate/Dose/Volume Action 06/11/23 1648 125 mcg Given 06/12/23 1142 125 mcg Given 06/13/23 1255 125 mcg Given 06/14/23 1140 125 mcg Given treprostinil (Remodulin) 50 mcg/mL in diluent for treprostinil 100 mL Bag (ng/kg/min) Total dose: Cannot be calculated* Dosing weight: 86 *Total user-documented volume .1 mL may contain volume from other administrations Date/Time Rate/Dose/Volume Action 06/12/23 1315 *6 ng/kg/min - 0.619 mL/hr Missed treprostinil (Remodulin) 75 mcg/mL in diluent for treprostinil 100 mL Bag (ng/kg/min) Total dose: Cannot be calculated* Dosing weight: 86 *Total user-documented volume .1 mL may contain volume from other administrations Date/Time Rate/Dose/Volume Action 06/12/23 1345 *6 ng/kg/min - 0.413 mL/hr Missed treprostinil (Remodulin) 20 mcg/mL in diluent for treprostinil 100 mL Bag (ng/kg/min) Total dose: Cannot be calculated* Dosing weight: 86 *Total user-documented volume .1 mL may contain volume from other administrations Date/Time Rate/Dose/Volume Action 06/12/23 1531 6 ng/kg/min - 1.548 mL/hr New Bag 1535 Stopped magnesium sulfate IV 2 g (mL/hr) Total dose: 2 g* Dosing weight: 86.1 *From user-documented volume Date/Time Rate/Dose/Volume Action 06/14/23 0235 2 g - 25 mL/hr (over 120 min) New Bag 0435 (over 120 min) Stopped fentaNYL PF (Sublimaze) injection (mcg) Total dose: 50 mcg Date/Time Rate/Dose/Volume Action 06/14/23 1513 50 mcg Given midazolam (Versed) injection (mg) Total dose: 1 mg Date/Time Rate/Dose/Volume Action 06/14/23 1513 1 mg Given No specimens collected See detailed result report with images in PACS. The patient tolerated the procedure well without incident or complication and is in stable condition. The patient's goals for the shift include pain control The clinical goals for the shift include Patient will remain hemodynamically stable through the shift Problem: Diabetes Goal: Achieve decreasing blood glucose levels by end of shift Outcome: Progressing Goal: Increase stability of blood glucose readings by end of shift Outcome: Progressing Goal: Decrease in ketones present in urine by end of shift Outcome: Progressing Goal: Maintain electrolyte levels within acceptable range throughout shift Outcome: Progressing Goal: Maintain glucose levels >70mg/dl to <250mg/dl throughout shift Outcome: Progressing Goal: No changes in neurological exam by end of shift Outcome: Progressing Goal: Learn about and adhere to nutrition recommendations by end of shift Outcome: Progressing Goal: Vital signs within normal range for age by end of shift Outcome: Progressing Goal: Increase self care and/or family involovement by end of shift Outcome: Progressing Goal: Receive DSME education by end of shift Outcome: Progressing Problem: Pain Goal: My pain/discomfort is manageable Outcome: Progressing Problem: Safety Goal: Patient will be injury free during hospitalization Outcome: Progressing Goal: I will remain free of falls Outcome: Progressing Problem: Psychosocial Needs Goal: Demonstrates ability to cope with hospitalization/illness Outcome: Progressing Goal: Collaborate with me, my family, and caregiver to identify my specific goals Outcome: Progressing Problem: Discharge Barriers Goal: My discharge needs are met Outcome: Progressing Problem: Skin Goal: Decreased wound size/increased tissue granulation at next dressing change Outcome: Progressing Flowsheets (Taken 06/13/2023145) Decreased wound size/increased tissue granulation at next dressing change: Promote sleep for wound healing Protective dressings over bony prominences Utilize specialty bed per algorithm Goal: Participates in plan/prevention/treatment measures Outcome: Progressing Flowsheets (Taken 06/13/2023145) Participates in plan/prevention/treatment measures: Discuss with provider PT/OT consult Elevate heels Increase activity/out of bed for meals Goal: Prevent/manage excess moisture Outcome: Progressing Flowsheets (Taken 06/13/2023145) Prevent/manage excess moisture: Monitor for/manage infection if present Follow provider orders for dressing changes Goal: Prevent/minimize sheer/friction injuries Outcome: Progressing Flowsheets (Taken 06/13/2023145) Prevent/minimize sheer/friction injuries: HOB 30 degrees or less Turn/reposition every 2 hours/use positioning/transfer devices Utilize specialty bed per algorithm Complete micro-shifts as needed if patient unable. Adjust patient position to relieve pressure points, not a full turn Use pull sheet Increase activity/out of bed for meals Goal: Promote/optimize nutrition Outcome: Progressing Flowsheets (Taken 06/13/2023145) Promote/optimize nutrition: Offer water/supplements/favorite foods Discuss with provider if NPO > 2 days Goal: Promote skin healing Outcome: Progressing Flowsheets (Taken 06/13/2023145) Promote skin healing: Turn/reposition every 2 hours/use positioning/transfer devices Ensure correct size (line/device) and apply per industrial equipment wirer instructions Rotate device position/do not position patient on device Protective dressings over bony prominences Assess skin/pad under line(s)/device(s) Problem: Fall/Injury Goal: Not fall by end of shift Outcome: Progressing Goal: Be free from injury by end of the shift Outcome: Progressing Goal: Verbalize understanding of personal risk factors for fall in the hospital Outcome: Progressing Goal: Verbalize understanding of risk factor reduction measures to prevent injury from fall in the home Outcome: Progressing Goal: Use assistive devices by end of the shift Outcome: Progressing Goal: Pace activities to prevent fatigue by end of the shift Outcome: Progressing Problem: Pain - Adult Goal: Verbalizes/displays adequate comfort level or baseline comfort level Outcome: Progressing Problem: Safety - Adult Goal: Free from fall injury Outcome: Progressing Problem: Discharge Planning Goal: Discharge to home or other facility with appropriate resources Outcome: Progressing Problem: Chronic Conditions and Co-morbidities Goal: Patient's chronic conditions and co-morbidity symptoms are monitored and maintained or improved Outcome: Progressing Problem: Pain Goal: Takes deep breaths with improved pain control throughout the shift Outcome: Progressing Goal: Turns in bed with improved pain control throughout the shift Outcome: Progressing Goal: Walks with improved pain control throughout the shift Outcome: Progressing Goal: Performs ADL's with improved pain control throughout shift Outcome: Progressing Goal: Participates in PT with improved pain control throughout the shift Outcome: Progressing Goal: Free from opioid side effects throughout the shift Outcome: Progressing Goal: Free from acute confusion related to pain meds throughout the shift Outcome: Progressing Problem: Pain Goal: My pain/discomfort is manageable Outcome: Progressing Flowsheets (Taken 06/12/2023 09) Resident's pain/discomfort is manageable: Include resident/family/caregiver in decisions related to pain management Offer non-pharmacological pain management interventions Administer pain medication prior to activities that may trigger pain Identify and avoid pain triggers Problem: Safety Goal: Patient will be injury free during hospitalization Outcome: Progressing Goal: I will remain free of falls Outcome: Progressing Flowsheets (Taken 06/12/2023 0914) Resident will remain free of falls: Accompany resident as ordered (ex. 1:1, stand-by assist, dayroom monitoring, 15 minute checks, line of sight) Use gait belt for all transfers Utilize fall response kit Maintain bed at position as ordered (chair height, low bed) Consider transfer to room close to nurses' station Visual checks per facility policy Assess and monitor medications that may increase fall risk Problem: Psychosocial Needs Goal: Demonstrates ability to cope with hospitalization/illness Outcome: Progressing Flowsheets (Taken 06/11/2023 1849 by Arlene Guerrero RN) Demonstrates ability to cope with hospitalization/illness: Encourage verbalization of feelings/concerns/expectations Provide low-stimulation environment as needed Assist resident to identify and practice own strengths and abilities Encourage resident to set and complete small goals for self Encourage participation in diversional activities Reinforce positive adaptation of new coping behaviors Include resident/family/caregiver in decisions related to psychosocial needs Goal: Collaborate with me, my family, and caregiver to identify my specific goals Outcome: Progressing Flowsheets (Taken 06/06/20231951 by Mateo Ren RN) Cultural Requests During Hospitalization: no Spiritual Requests During Hospitalization: no Problem: Discharge Barriers Goal: My discharge needs are met Outcome: Progressing Flowsheets (Taken 06/12/2023 0914) Resident's discharge needs are met: Identify potential discharge barriers on admission and throughout stay Problem: Safety - Adult Goal: Free from fall injury Outcome: Progressing Flowsheets (Taken 06/12/2023 09) Free from fall injury: Based on caregiver fall risk screen, instruct family/caregiver to ask for assistance with transferring infant if caregiver noted to have fall risk factors Instruct family/caregiver on patient safety The patient's goals for the shift include pain control The clinical goals for the shift include Patient will remain HDS throughout this shift. Patient transferred to CICU for boarding but remains on MICU service. 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 Mulvane in place, Veletri dose stable since 06/10, further uptitration likely limited by patient symptoms. Off dobutamine since 06/10, and digoxin started for inotropy. Course c/b chronic LLE wound, wound care following, on Bactrim. Plan to continue to optimize pHTN regimen, discharge to follow up with Pulmonology and Rheumatology as outpatient. 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 ::Unclear history of VTEs, could not rule out as US was limited by pain ::Troponin 17, no concern for ischemia ::CTA chest without PE ::V/Q with heterogeneity in both lungs, intermediate probability for pulm embolism. Chronic PE vs multifocal airway disease not entirely excluded PLAN: - S/p RHC with swan, LHC with Heart Failure team 06/06 - dsDNA, RF, anca panel, CCP, SSA/SSB, scl-70, HIV, complement C3 and C4 all WNL - extended myositis panel pending - positive NICOLE and anti-centromere antibody - Rheumatology onboard - Pulmonary hypertension team onboard - on inhaled nitric oxide, Veletri, and dobutamine - 06/08: Mulvane repositioned in optical laboratory mechanic overnight, Mulvane again out of place this morning, cardiology repositioned Mulvane at bedside, now in appropriate location - weaned off of nitric oxide and titrating up Veletri based on Mulvane values - 06/10: Weaning off of dobutamine, starting low dose digoxin for inotropic effect PULMONARY #Pulmonary arterial hypertension #Productive cough/wheezing (improved), likely 2/2 Rt HF ::No overt sings of PNA on CXR ::Influenza A/B and Covid negative PLAN: - working up as above - Strict I/O and daily weights - Sputum cultures sent - may require lungs transplant - Utox positive for opiate, HOWEVER, patient received 4 mg of IV morphine (06/03 at 2200) less than 48 hours before utox collected (06/05 at 1154) RENAL/ #MAXIMO on CKD, resolved ::Likely cardiorenal PLAN: -Avoiding nephrotoxins -Fluid resuscitation prior to contrast GI #Elevated liver enzymes, cholestatic pattern, likely cardiohepatic ::AST 17, ALT 13, alk phos 281, R-factor 0.1 ::mild RUQ pain, Lazar's sign negative on exam ::Positive hepatitis C antibody, negative RNA -RUQ with hepatomegaly, splenomeagly -improving with PAH treatment #N/V -zofran prn -instructed patient to take the Bactrim with food ID #LLE cellulitis #C/f URI PLAN: -Sent blood, sputum, and wound cultures -Resp viral panel negative -Abx coverage initially with IV Vanc/Zosyn -Wound culture w/ susceptibilities: MSSA and Enterobacter cloacae complex (both susceptible to Bactrim) -06/08: Abx switched to Bactrim -Consult placed to wound care MSK/DERM #CREST/IcSSC PLAN: -autoimmune/connective tissue workup as above -rheum onboard: no indication for immunosuppression therapy, symptomatic tx as needed -added PPI F: PRN E: PRN N: Regular Adult A: PIVs GI ppx: Protonix DVT ppx: SQH Code status: Full (confirmed on admission) NOK: Rocio Sánchez [phone] RN report called to Ayesha LOPEZ in CICU. Anticipated discharge disposition presumed home upon completion of PAH interventions and education. Pt transported off monitor per MICU fellow Pj to CICU 10. Yang Back RN. The patient's goals and clinical goals for the shift include remaining free of pain and injury. The patient made progress to many of the goals listed below. RN will continue to reinforce each point. Problem: Pain Goal: My pain/discomfort is manageable Outcome: Progressing Problem: Safety Goal: Patient will be injury free during hospitalization Outcome: Progressing Goal: I will remain free of falls Outcome: Progressing Problem: Psychosocial Needs Goal: Demonstrates ability to cope with hospitalization/illness Outcome: Progressing Goal: Collaborate with me, my family, and caregiver to identify my specific goals Outcome: Progressing Problem: Skin Goal: Decreased wound size/increased tissue granulation at next dressing change Outcome: Progressing Flowsheets (Taken 06/10/2023 180 by Mariama Guzman RN) Decreased wound size/increased tissue granulation at next dressing change: Promote sleep for wound healing Goal: Participates in plan/prevention/treatment measures Outcome: Progressing Flowsheets (Taken 06/11/2023 2314) Participates in plan/prevention/treatment measures: (Increase activity: bedside commode) -- Goal: Prevent/manage excess moisture Outcome: Progressing Flowsheets (Taken 06/10/20231801 by Mariama Guzman RN) Prevent/manage excess moisture: Cleanse incontinence/protect with barrier cream Goal: Prevent/minimize sheer/friction injuries Outcome: Progressing Flowsheets (Taken 06/10/20231801 by Mariama Guzman RN) Prevent/minimize sheer/friction injuries: Complete micro-shifts as needed if patient unable. Adjust patient position to relieve pressure points, not a full turn Goal: Promote skin healing Outcome: Progressing Flowsheets (Taken 06/10/20231801 by Mariama Guzman RN) Promote skin healing: Assess skin/pad under line(s)/device(s) Problem: Fall/Injury Goal: Not fall by end of shift Outcome: Progressing Goal: Be free from injury by end of the shift Outcome: Progressing Goal: Verbalize understanding of personal risk factors for fall in the hospital Outcome: Progressing Goal: Verbalize understanding of risk factor reduction measures to prevent injury from fall in the home Outcome: Progressing Problem: Pain Goal: Takes deep breaths with improved pain control throughout the shift Outcome: Progressing Goal: Turns in bed with improved pain control throughout the shift Outcome: Progressing The patient's goals for the shift include pain control The clinical goals for the shift include minimze veletri side effects Problem: Psychosocial Needs Goal: Demonstrates ability to cope with hospitalization/illness Outcome: Progressing Flowsheets (Taken 06/11/2023 1849) Demonstrates ability to cope with hospitalization/illness: Encourage verbalization of feelings/concerns/expectations Provide low-stimulation environment as needed Assist resident to identify and practice own strengths and abilities Encourage resident to set and complete small goals for self Encourage participation in diversional activities Reinforce positive adaptation of new coping behaviors Include resident/family/caregiver in decisions related to psychosocial needs Note: Spent time discussing her pulmonary hypertension diagnosis and the treatment for it. Central line, continuous IV meds, Pt resting quietly throughout the day. No c/o headache or nausea. Taking meals well. VSS. The patient's goals and clinical goals for the shift include remaining free of pain and injury. The patient made progress to many of the goals listed below. RN will continue to reinforce each point. Problem: Pain Goal: My pain/discomfort is manageable Outcome: Progressing Problem: Safety Goal: Patient will be injury free during hospitalization Outcome: Progressing Goal: I will remain free of falls Outcome: Progressing Problem: Psychosocial Needs Goal: Demonstrates ability to cope with hospitalization/illness Outcome: Progressing Goal: Collaborate with me, my family, and caregiver to identify my specific goals Outcome: Progressing Problem: Skin Goal: Decreased wound size/increased tissue granulation at next dressing change Outcome: Progressing Flowsheets (Taken 06/10/20231801 by Mariama Guzman RN) Decreased wound size/increased tissue granulation at next dressing change: Promote sleep for wound healing Goal: Participates in plan/prevention/treatment measures Outcome: Progressing Flowsheets (Taken 06/10/20231801 by Mariama Guzman RN) Participates in plan/prevention/treatment measures: Discuss with provider PT/OT consult Goal: Prevent/manage excess moisture Outcome: Progressing Flowsheets (Taken 06/10/20231801 by Maraima Guzman RN) Prevent/manage excess moisture: Cleanse incontinence/protect with barrier cream Goal: Prevent/minimize sheer/friction injuries Outcome: Progressing Flowsheets (Taken 06/10/20231801 by Mariama Guzman RN) Prevent/minimize sheer/friction injuries: Complete micro-shifts as needed if patient unable. Adjust patient position to relieve pressure points, not a full turn Problem: Fall/Injury Goal: Not fall by end of shift Outcome: Progressing Goal: Be free from injury by end of the shift Outcome: Progressing Goal: Verbalize understanding of personal risk factors for fall in the hospital Outcome: Progressing Goal: Verbalize understanding of risk factor reduction measures to prevent injury from fall in the home Outcome: Progressing Goal: Use assistive devices by end of the shift Outcome: Progressing Goal: Pace activities to prevent fatigue by end of the shift Outcome: Progressing Problem: Diabetes Goal: Achieve decreasing blood glucose levels by end of shift Outcome: Not Progressing Goal: Increase stability of blood glucose readings by end of shift Outcome: Not Progressing Goal: Decrease in ketones present in urine by end of shift Outcome: Not Progressing Goal: Maintain electrolyte levels within acceptable range throughout shift Outcome: Not Progressing Goal: Maintain glucose levels >70mg/dl to <250mg/dl throughout shift Outcome: Not Progressing Goal: No changes in neurological exam by end of shift Outcome: Not Progressing Goal: Learn about and adhere to nutrition recommendations by end of shift Outcome: Not Progressing Goal: Vital signs within normal range for age by end of shift Outcome: Not Progressing Goal: Increase self care and/or family involovement by end of shift Outcome: Not Progressing Goal: Receive DSME education by end of shift Outcome: Not Progressing The patient's goals for the shift include pain control The clinical goals for the shift include pt to have pain level of 5 or lower throughout shift Problem: Diabetes Goal: Achieve decreasing blood glucose levels by end of shift Outcome: Not Progressing Goal: Increase stability of blood glucose readings by end of shift Outcome: Not Progressing Goal: Decrease in ketones present in urine by end of shift Outcome: Not Progressing Goal: Maintain electrolyte levels within acceptable range throughout shift Outcome: Not Progressing Goal: Maintain glucose levels >70mg/dl to <250mg/dl throughout shift Outcome: Not Progressing Goal: No changes in neurological exam by end of shift Outcome: Not Progressing Goal: Learn about and adhere to nutrition recommendations by end of shift Outcome: Not Progressing Goal: Vital signs within normal range for age by end of shift Outcome: Not Progressing Goal: Increase self care and/or family involovement by end of shift Outcome: Not Progressing Goal: Receive DSME education by end of shift Outcome: Not Progressing Problem: Pain Goal: My pain/discomfort is manageable Outcome: Not Progressing Problem: Safety Goal: Patient will be injury free during hospitalization Outcome: Not Progressing Goal: I will remain free of falls Outcome: Not Progressing Problem: Psychosocial Needs Goal: Demonstrates ability to cope with hospitalization/illness Outcome: Not Progressing Goal: Collaborate with me, my family, and caregiver to identify my specific goals Outcome: Not Progressing Problem: Discharge Barriers Goal: My discharge needs are met Outcome: Not Progressing Problem: Skin Goal: Decreased wound size/increased tissue granulation at next dressing change Outcome: Not Progressing Goal: Participates in plan/prevention/treatment measures Outcome: Not Progressing Goal: Prevent/manage excess moisture Outcome: Not Progressing Goal: Prevent/minimize sheer/friction injuries Outcome: Not Progressing Goal: Promote/optimize nutrition Outcome: Not Progressing Goal: Promote skin healing Outcome: Not Progressing Problem: Fall/Injury Goal: Not fall by end of shift Outcome: Not Progressing Goal: Be free from injury by end of the shift Outcome: Not Progressing Goal: Verbalize understanding of personal risk factors for fall in the hospital Outcome: Not Progressing Goal: Verbalize understanding of risk factor reduction measures to prevent injury from fall in the home Outcome: Not Progressing Goal: Use assistive devices by end of the shift Outcome: Not Progressing Goal: Pace activities to prevent fatigue by end of the shift Outcome: Not Progressing Problem: Pain - Adult Goal: Verbalizes/displays adequate comfort level or baseline comfort level Outcome: Not Progressing Problem: Safety - Adult Goal: Free from fall injury Outcome: Not Progressing Problem: Discharge Planning Goal: Discharge to home or other facility with appropriate resources Outcome: Not Progressing Problem: Chronic Conditions and Co-morbidities Goal: Patient's chronic conditions and co-morbidity symptoms are monitored and maintained or improved Outcome: Not Progressing Problem: Pain Goal: Takes deep breaths with improved pain control throughout the shift Outcome: Not Progressing Goal: Turns in bed with improved pain control throughout the shift Outcome: Not Progressing Goal: Walks with improved pain control throughout the shift Outcome: Not Progressing Goal: Performs ADL's with improved pain control throughout shift Outcome: Not Progressing Goal: Participates in PT with improved pain control throughout the shift Outcome: Not Progressing Goal: Free from opioid side effects throughout the shift Outcome: Not Progressing Goal: Free from acute confusion related to pain meds throughout the shift Outcome: Not Progressing The patient's goals and clinical goals for the shift include remaining free of pain and injury. The patient made progress to many of the goals listed below. RN will continue to reinforce each point. Problem: Pain Goal: My pain/discomfort is manageable Outcome: Progressing Problem: Safety Goal: Patient will be injury free during hospitalization Outcome: Progressing Goal: I will remain free of falls Outcome: Progressing Problem: Psychosocial Needs Goal: Demonstrates ability to cope with hospitalization/illness Outcome: Progressing Problem: Skin Goal: Decreased wound size/increased tissue granulation at next dressing change Outcome: Progressing Flowsheets (Taken 06/09/2023 1048 by Mariama Guzman RN) Decreased wound size/increased tissue granulation at next dressing change: Promote sleep for wound healing Goal: Participates in plan/prevention/treatment measures Outcome: Progressing Flowsheets (Taken 06/10/2023 0158) Participates in plan/prevention/treatment measures: Elevate heels Goal: Prevent/manage excess moisture Outcome: Progressing Flowsheets (Taken 06/09/2023 104 by Mariama Guzman, JOHN) Prevent/manage excess moisture: Cleanse incontinence/protect with barrier cream Goal: Prevent/minimize sheer/friction injuries Outcome: Progressing Flowsheets (Taken 06/09/2023 104 by Mariama Guzman RN) Prevent/minimize sheer/friction injuries: Complete micro-shifts as needed if patient unable. Adjust patient position to relieve pressure points, not a full turn Problem: Fall/Injury Goal: Not fall by end of shift Outcome: Progressing Goal: Be free from injury by end of the shift Outcome: Progressing Goal: Verbalize understanding of personal risk factors for fall in the hospital Outcome: Progressing Goal: Verbalize understanding of risk factor reduction measures to prevent injury from fall in the home Outcome: Progressing Goal: Pace activities to prevent fatigue by end of the shift Outcome: Progressing Problem: Safety - Adult Goal: Free from fall injury Outcome: Progressing Problem: Pain Goal: Turns in bed with improved pain control throughout the shift Outcome: Progressing Goal: Free from opioid side effects throughout the shift Outcome: Progressing Goal: Free from acute confusion related to pain meds throughout the shift Outcome: Progressing Problem: Diabetes Goal: Achieve decreasing blood glucose levels by end of shift Outcome: Progressing Goal: Increase stability of blood glucose readings by end of shift Outcome: Progressing Goal: Decrease in ketones present in urine by end of shift Outcome: Progressing Goal: Maintain electrolyte levels within acceptable range throughout shift Outcome: Progressing Goal: Maintain glucose levels >70mg/dl to <250mg/dl throughout shift Outcome: Progressing Goal: No changes in neurological exam by end of shift Outcome: Progressing Goal: Learn about and adhere to nutrition recommendations by end of shift Outcome: Progressing Goal: Vital signs within normal range for age by end of shift Outcome: Progressing Goal: Increase self care and/or family involovement by end of shift Outcome: Progressing Goal: Receive DSME education by end of shift Outcome: Progressing The patient's goals for the shift include pain control The clinical goals for the shift include pt to be have pain level of 5 or lower throughout shift The patient's goals for the shift include pain control The clinical goals for the shift include pt to remain safe during shift Over the shift, the patient did not make progress toward the following goals. Barriers to progression include . Recommendations to address these barriers include . Problem: Psychosocial Needs Goal: Demonstrates ability to cope with hospitalization/illness Outcome: Not Progressing Goal: Collaborate with me, my family, and caregiver to identify my specific goals Outcome: Not Progressing Problem: Discharge Barriers Goal: My discharge needs are met Outcome: Not Progressing Problem: Skin Goal: Participates in plan/prevention/treatment measures Outcome: Not Progressing Spoke to the patient and her fiance extensively about the diagnosis of pulmonary arterial hypertension, possible causes in her case, and treatment options. I discussed with her that infusion therapy is recommended by pulmonary hypertension specialist Dr. Schumacher. We talked about the lifelong nature of this medication as a continuous infusion and lifestyle aspects of it, including wearing the homegoing pump at all times. We also discussed alternatives and overall mortality of this disease. Based on this information, both the patient and her fiance are agreeable to initiate IV veletri therapy and other PH therapies during this admission The clinical goals for the shift include pt to remain free from falls through end of shift. Problem: Pain Goal: My pain/discomfort is manageable Outcome: Progressing Problem: Safety Goal: Patient will be injury free during hospitalization Outcome: Progressing Goal: I will remain free of falls Outcome: Progressing Problem: Daily Care Goal: Daily care needs are met Outcome: Progressing Problem: Psychosocial Needs Goal: Demonstrates ability to cope with hospitalization/illness Outcome: Progressing Goal: Collaborate with me, my family, and caregiver to identify my specific goals Outcome: Progressing Problem: Discharge Barriers Goal: My discharge needs are met Outcome: Progressing Problem: Skin Goal: Decreased wound size/increased tissue granulation at next dressing change Outcome: Progressing Goal: Participates in plan/prevention/treatment measures Outcome: Progressing Goal: Prevent/manage excess moisture Outcome: Progressing Goal: Prevent/minimize sheer/friction injuries Outcome: Progressing Goal: Promote/optimize nutrition Outcome: Progressing Goal: Promote skin healing Outcome: Progressing Problem: Fall/Injury Goal: Not fall by end of shift Outcome: Progressing Goal: Be free from injury by end of the shift Outcome: Progressing Goal: Verbalize understanding of personal risk factors for fall in the hospital Outcome: Progressing Goal: Verbalize understanding of risk factor reduction measures to prevent injury from fall in the home Outcome: Progressing Goal: Use assistive devices by end of the shift Outcome: Progressing Goal: Pace activities to prevent fatigue by end of the shift Outcome: Progressing Jayna Smith is a 37 y.o. female PMH T2DM, HTN, Raynaud's, CKD, who is presenting as a transfer from [facility] for severe pulmonary hypertension and tricuspid regurgitation. Pt initially presented on 06/02 for left leg pain and swelling and concern for cellulitis 04/13 to a chronic anterior left leg wound and recent surgical debridement. She was admitted to [facility] on 06/03 for IV antibiotic management. Noted to have a new murmur and cardiology was consulted as a TTE on 04/08/23 revealed a dilated RA and elevated RVSP with severe TR (full report below). She was recommended to follow-up with cardiology outpatient, however does not appear that this occurred. Repeat TTE on 06/05 revealed similar findings and she was transferred to [facility] for further evaluation and management of right heart failure/pulm htn. On arrival, patient reports feeling overall well. Her main concern is the L leg pain and swelling which she noticed a couple of days prior. Over the past week she has also noticed some wheezing and a productive cough. She does endorse some exertional dyspnea but is not sure when this stared. Also reports she had two episodes of vomiting in the last week, most recently yesterday. Denies chest pain or palpitations. She denies any history of asthma/COPD; has a smoking history of about half a pack daily, unsure of duration and has since quit. Endorses social alcohol and marijuana use but denies illicit drug use. Denies arthralgias/myalgias but has noticed her R 1st and 2nd fingers becoming deformed over the past few months. Endorses some sensation of food getting stuck when eating too quickly. Denies any history of DVT/PE but does report she had had superficial clot in her leg a few years ago that she thinks was unprovoked. She denies any family history of heart/lung disease that she is aware of. There has been concern for underlying autoimmune or connective tissue disease in the past given her hand deformities and history of Raynaud's. She recently had a positive hepatitis C antibody. Pulmonary hypertension specialist, Dr Schumacher, Advanced Heart Failure team, and Rheumatology were consulted. Patient received autoimmune workup which was significant for positive NICOLE and anti-centromere antibodies. 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 Rheumatology confirmed no current indication for immunosuppression therapy. Patient started on PPI for GERD, a common associated symptom of CREST. Patient underwent left and right heart cath with Mulvane catheter placement. Additionally patient with CT PE negative for ILD or acute PE. V/Q scan not concerning for CTEPH. 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 Patient started on inhaled Nitric Oxide and dobutamine drip while titrating Veletri. Patient weaned off of nitric oxide and dobutamine. Patient's LLE cellulitis initially treated with IV Vanc and Zosyn. Wound care consulted. Wound cultures came back positive for MSSA and Enterobacter cloacae complex. Antibiotics transitioned to PO Bactrim as both were shown to be susceptible on cultures. Patient with MAXIMO on CKD, however renal function improved as patient began to auto diurese after initiation of PAH treatment. Mulvane in place, Veletri dose stable since 06/10, further uptitration likely limited by patient symptoms. Off dobutamine since 06/10, and digoxin started for inotropy. On 06/11, trialed on Remodulin, developed side effects, and switched back to Epo. per Dr. Schumacher may have been due to flushed line and bolusing of drug. Mulvane removed and doss catheter placed with IR on 06/13. Course c/b chronic LLE wound, wound care followed and patient completed Bactrim. Transferred to [facility] 06/14 from MICU for further management of pulm HTN medication titration, suspicion for HIT. Patient developed erythematous, swollen R 1st MTP and evaluated by podiatry, no acute interventions needed. Low suspicion of gout and patient's pain improved with supportive care. Patient uptitration of Remodulin and had mild headaches which improved with Tylenol. Patient had worsening headaches, chest pain, nausea when Remodulin was uptitrated to 10 mg/kg/min; dose was reduced to 9 with resolution in symptoms with supportive care. Patient completed pulmonary hypertension teaching. The patient will be discharged to home with instructions to follow-up with pulmonary hypertension clinic, rheumatology, pulmonology, PCP. Currently awaiting delivery of medication & supplies. Physician Transition of Care Summary Invasive Cardiovascular Lab Procedure Date: 06/07/2023 Attending: * Akil Martinez - Primary Resident/Fellow/Other Para Operator: Surgeon(s) and Role: * Rosendo Del Cid MD - Fellow Indications: Pre-op Diagnosis * Pulmonary hypertension (CMS/HCC) [I27.20] Post-procedure diagnosis: Post-op Diagnosis * Pulmonary hypertension (CMS/HCC) [I27.20] Procedure(s): Right Heart Cath 57327 - AK RIGHT HEART CATH O2 SATURATION & CARDIAC OUTPUT Left & Right Heart Cath w Angiography & LV 15147 - AK R & L HRT CATH WINJX HRT ART& L VENTR IMG Procedure Findings: Coronary angiogram: No evidence of obstructive CAD; near normal coronaries. Normal LV systolic function on LVgram RHC hemodynamics: RA: 23 RV 93/13 (27) PCWP 22 PA 91/41 (59) Mixed venous sat: 60% CO/CI: 3.56/1.83 Description of the Procedure: LHC access: Right radial artery; 6Fr Closure: TR and; 15 RHC: Right internal jugular vein. Mulvane sutured at 54 cm Complications: None Stents/Implants: N/A Anticoagulation/Antiplatelet Plan: Per primary team Estimated Blood Loss: 5 mL Anesthesia: Moderate Sedation Anesthesia Staff: No anesthesia staff entered. Any Specimen(s) Removed: No specimens collected during this procedure. [facility] Electronically signed by: Rosendo Del Cid MD, 06/07/2023 1:13 PM Sedation Plan ASA 3 Mallampati class: I. Risks, benefits, and alternatives discussed with patient. Patient will need to undergo CT angio chest and CT A/P to rule out VTE. There is a risk of worsening MAXIMO with GFR 41 however benefits of this scan to guide treatment outweigh the risks. Patient will be given IV hydration prior to CT. documented in this encounter [facility] Work Phone: 06-25-2023 History of Present illness Narrative Internal Medicine Progress Note [facility] June 25, 2023 Patient: Jayna Smith Medical Record: [id number] Jayna Smith is a 37 y.o. female on day 13 of admission presenting with Pulmonary hypertension (CMS/HCC). Subjective NAEON Patient with residual headache located bifrontally that she states is tolerable. Received Tylenol and Caffeine overnight. Medications Medications: Scheduled medications acetaminophen, 975 mg, oral, q6h Or acetaminophen, 650 mg, nasogastric tube, q6h Or acetaminophen, 650 mg, rectal, q6h digoxin, 125 mcg, oral, Daily enoxaparin, 40 mg, subcutaneous, q24h lactulose, 20 g, oral, q2h melatonin, 6 mg, oral, Daily pantoprazole, 40 mg, oral, Daily before breakfast polyethylene glycol, 17 g, oral, Daily sennosides-docusate sodium, 1 tablet, oral, BID trimethobenzamide, 200 mg, intramuscular, Once Continuous medications treprostinil, 9 ng/kg/min (Order-Specific), Last Rate: 9 ng/kg/min (06/25/23 0934) PRN medications PRN medications: alum-mag hydroxide-simeth, bisacodyl, busPIRone, caffeine, dextrose, dextrose, diclofenac sodium, gabapentin, glucagon, glucagon, ondansetron, oxygen Objective Vitals Visit Vitals BP 122/87 (BP Location: Left arm, Patient Position: Lying) Pulse 73 Temp 36.2 C (97.2 F) (Temporal) Resp 17 Intake/Output I/O last 3 completed shifts: In: 801.3 (9.9 mL/kg) [P.O.:720; I.V.:81.3 (1 mL/kg)] Out: 1600 (19.8 mL/kg) [Urine:1200 (0.4 mL/kg/hr); Emesis/NG output:400] Dosing Weight: 81 kg Physical Exam Constitutional: General: She is not in acute distress. Appearance: She is not ill-appearing or toxic-appearing. HENT: Head: Normocephalic and atraumatic. Cardiovascular: Rate and Rhythm: Normal rate. Heart sounds: Systolic murmur noted Pulmonary: Effort: Pulmonary effort is normal. No respiratory distress. Breath sounds: Normal breath sounds. No wheezing or rales. Abdominal: General: Abdomen is flat. There is no distension. Palpations: Abdomen is soft. Tenderness: There is no abdominal tenderness. There is no guarding. Skin: General: Skin is warm and dry. Comments: Right 1st metatarsal has improved swelling and erythema. Improved swelling in left foot. Doss catheter on R side neck. Neurological: Mental Status: She is alert and oriented to person, place, and time. Labs Results from last 7 days Lab Units 06/25/23 0732 06/24/23 0325 06/23/23 0854 WBC AUTO x10*3/uL 7.1 6.3 5.5 HEMOGLOBIN g/dL 13.4 14.9 13.2 HEMATOCRIT % 44.3 50.2* 41.6 PLATELETS AUTO x10*3/uL 151 186 160 Results from last 7 days Lab Units 06/25/23 0732 06/24/23 0325 06/23/23 0854 06/21/23 0639 06/20/23 0636 06/19/23 1918 06/19/23 0654 06/18/23 1736 SODIUM mmol/L 138 139 140 < > 139 137 < > 139 POTASSIUM mmol/L 4.5 4.8 4.2 < > 4.5 4.8 < > 4.9 CO2 mmol/L 23 22 21 < > 25 26 < > 26 ANION GAP mmol/L 18 19 17 < > 15 13 < > 17 BUN mg/dL 16 14 15 < > 15 17 < > 17 CREATININE mg/dL 1.12* 1.01 0.91 < > 1.09* 1.20* < > 1.15* GLUCOSE mg/dL 86 101* 98 < > 89 125* < > 89 EGFR mL/min/1.73m*2 64 73 82 < > 66 59* < > 62 MAGNESIUM mg/dL 1.90 1.95 1.79 < > 2.18 1.75 < > 1.70 PHOSPHORUS mg/dL -- -- -- -- 4.2 4.1 -- 4.5 < > = values in this interval not displayed. Results from last 7 days Lab Units 06/25/23 0732 06/24/23 0325 06/23/23 0854 ALT U/L 16 23 21 AST U/L 16 25 22 ALK PHOS U/L 312* 379* 357* Imaging === 06/06/23 === XR FOOT 1-2 VIEWS RIGHT - Impression - 1. No acute fracture or malalignment. 2. Small radiopaque foreign body in the plantar soft tissues of the foot may be secondary to prior injury. I personally reviewed the image(s)/study and resident interpretation as stated by Dr. Hannah Thomas MD. I agree with the findings as stated. This study was interpreted at [facility], [place], [place]. MACRO: None Signed by: Julio Colon 06/19/2023 4:11 PM Dictation workstation: [id number] === 06/06/23 === CT ABDOMEN PELVIS W IV CONTRAST - Impression - 1. Slightly nodular contour of the liver, which is new compared to [address] CT. Splenomegaly measuring up to 12.9 cm, minimally increased compared to 2021 CT. Findings can be secondary to hepatic venous congestion in the setting of cardiomegaly. Correlation with liver function tests is recommended. 2. Findings compatible with volume overload including vpqyb-[id number]-[id number] volume abdominopelvic ascites and body wall edema. 3. Re-demonstration of a 7.5 cm left posterolateral pelvic cystic lesion likely corresponding to left ovarian/adnexal cyst seen on 04/24/2023 ultrasound. 4. Additional findings as described above. I personally reviewed the images/study and I agree with Ellen Ratliff DO's (resident assistant) findings as stated. This study was interpreted at [facility], [place], [place]. Assessment/Plan Ms. Smith is a 37 y.o. 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 Transferred to [facility] 06/14 from MICU for further management of pulm HTN medication titration, suspicion for HIT. Updates 06/24: - Pending dispo today. Confirmed medications will be delivered to patient's home tomorrow in AM. - Discharge home with Remodulin 9 mg/kg/min - Bowel regimen #Pulmonary arterial hypertension (Group 1), likely 2/2 CREST syndrome #Decompensated RV failure and cardiogenic shock #Severe tricuspid regurgitation ::Echo from 04/08 showing RVSP 117mm Hg, R heart enlargement with D-shaped septum in systole and diastole ::Echo on 06/04 with similar findings, PA systolic of 97mmHg, TRV 4.5 ::Pt with no history or significant risk factors for heart disease or underlying lung pathology. ::Unclear history of VTEs, could not rule out as US was limited by pain ::Troponin 17, no concern for ischemia ::CTA chest without PE ::V/Q with heterogeneity in both lungs, intermediate probability for pulm embolism. Chronic PE vs multifocal airway disease not entirely excluded :: 06/08: Mulvane repositioned in optical laboratory mechanic overnight, Mulvane again out of place this morning, cardiology repositioned Mulvane at bedside, now in appropriate location :: dsDNA, RF, anca panel, CCP, SSA/SSB, scl-70, HIV, complement C3 and C4 all WNL :: positive NICOLE and anti-centromere antibody :: trialed on Remodulin 06/11, had side effects and switched back to epo :: S/p RHC with swan, LHC with Heart Failure team 06/06, swan removed 06/13 :: IR placed Doss port 06/13 :: DVT U/S LE(06/14): No evidence of DVT, although limited on L LE :: Plan to pre-treat with Caffeine PO 200mg and Tylenol prior to increasing dose Plan -Remodulin dose decreased to 9 mg/kg/min after having significant intractable headache, nausea, chest pain which improved with supportive care - Pulmonary hypertension team onboard # Thrombocytopenia, stable # 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 Started on Enoxaparin 06/19 for DVT prophylaxis - Serotonin release assay negative, started on Enoxaparin for DVT prophylaxis Plan - monitor plt; stable at this time # LLE cellulitis, improved # C/f URI # Right 1st metatarsal pain, improved PLAN: -Resp viral panel negative -Abx coverage initially with IV Vanc/Zosyn -Wound culture w/ susceptibilities: MSSA and Enterobacter cloacae complex (both susceptible to Bactrim) -06/08: Abx switched to Bactrim, plan for 7 day course (EOT 06/14) - DVT U/S LE(06/14): No evidence of DVT, although limited on L LE - Colchicine started for gout. X-ray foot neg. Uric acid wnl, unlikely R foot pain is gout; Podiatry signed off - Right 1st metatarsal erythematous, warm, very painful to touch Plan - Continue dressing changes - Continue supportive care - CRP 1.94 (prev 12.1 05/2023), ESR 39 (prev 22 04/2023) # CREST/IcSSC PLAN: -autoimmune/connective tissue workup as above -rheum onboard: no indication for immunosuppression therapy, symptomatic tx as needed -added PPI - will darling rheum follow up outpatient #MAXIMO on CKD, (resolved) ::Likely cardiorenal PLAN: - Avoiding nephrotoxins - Fluid resuscitation prior to contrast #Elevated liver enzymes, cholestatic pattern, likely cardiohepatic ::AST 17, ALT 13, alk phos 281, R-factor 0.1 ::mild RUQ pain, Lazar's sign negative on exam ::Positive hepatitis C antibody, negative RNA - RUQ with hepatomegaly, splenomeagly - Improving with PAH treatment F: PRN E: PRN N: Regular A: PIVs GI ppx: Protonix DVT ppx: Lovenox Code status: Full code (confirmed on admission) NOK: Rocio Sánchez [phone] SIGNATURE: Brda Garcia DO PATIENT NAME: Jayna Smith DATE: June 25, 2023 Associated attestation - Greyson Schumacher DO - 06/25/2023 3:45 PM EDT I saw and evaluated the patient. I personally obtained the singh and critical portions of the history and physical exam or was physically present for singh and critical portions performed by the resident/fellow. I reviewed the resident/fellow's documentation and discussed the patient with the resident/fellow. I agree with the resident/fellow's medical decision making as documented in the note with the exception/addition of the following: Known well to me from management for PAH, no edema, education cleared, medicine will arrive tomorrow AM for discharge. No further change in treprostinil dose, no edema. Ok for AM discharge with 3-4 week in clinic follow up (I have made these arrangements) . Patient will need to call office 1-2 x weekly to discuss increase in treprostinil. Internal Medicine Progress Note [facility] June 24, 2023 Patient: Jayna Smith Medical Record: [id number] Jayna Smith is a 37 y.o. female on day 13 of admission presenting with Pulmonary hypertension (CMS/HCC). Subjective Overnight patient had chest pain, intractable headache, nausea and emesis with new onset blurry vision and intermittent jaw pain. Cardiac workup negative. Decision was made to decrease dose of Remodulin from 10 to 9 due to the above symptoms. She was given IV Dilaudid, Tylenol, caffeine pill and Zofran which improved patient's symptoms. This AM, patient states that she feels better from last night after receiving medications. Having some abdominal pain, received suppository last night and trying bowel regimen today. No other concerns. Medications Medications: Scheduled medications acetaminophen, 975 mg, oral, q6h Or acetaminophen, 650 mg, nasogastric tube, q6h Or acetaminophen, 650 mg, rectal, q6h busPIRone, 5 mg, oral, Daily digoxin, 125 mcg, oral, Daily enoxaparin, 40 mg, subcutaneous, q24h melatonin, 6 mg, oral, Daily pantoprazole, 40 mg, oral, Daily before breakfast trimethobenzamide, 200 mg, intramuscular, Once Continuous medications treprostinil, 9 ng/kg/min (Order-Specific), Last Rate: 9 ng/kg/min (06/24/23 0335) PRN medications PRN medications: alum-mag hydroxide-simeth, caffeine, dextrose, dextrose, diclofenac sodium, gabapentin, glucagon, glucagon, ondansetron, oxygen Objective Vitals Visit Vitals BP 120/80 (BP Location: Right arm, Patient Position: Lying) Pulse 74 Temp 36.4 C (97.6 F) (Temporal) Resp 18 Intake/Output I/O last 3 completed shifts: In: 330.8 (4.1 mL/kg) [P.O.:240; I.V.:90.8 (1.1 mL/kg)] Out: 3600 (44.4 mL/kg) [Urine:3600 (1.2 mL/kg/hr)] Dosing Weight: 81 kg Physical Exam Constitutional: General: She is not in acute distress. Appearance: She is not ill-appearing or toxic-appearing. HENT: Head: Normocephalic and atraumatic. Cardiovascular: Rate and Rhythm: Normal rate. Heart sounds: Systolic murmur noted Pulmonary: Effort: Pulmonary effort is normal. No respiratory distress. Breath sounds: Normal breath sounds. No wheezing or rales. Abdominal: General: Abdomen is flat. There is no distension. Palpations: Abdomen is soft. Tenderness: There is no abdominal tenderness. There is no guarding. Skin: General: Skin is warm and dry. Comments: Right 1st metatarsal has improved swelling and erythema. Improved swelling in left foot. Doss catheter on R side neck. Neurological: Mental Status: She is alert and oriented to person, place, and time. Labs Results from last 7 days Lab Units 06/24/23 0325 06/23/23 0854 06/22/23 0611 WBC AUTO x10*3/uL 6.3 5.5 7.3 HEMOGLOBIN g/dL 14.9 13.2 13.2 HEMATOCRIT % 50.2* 41.6 38.2 PLATELETS AUTO x10*3/uL 186 160 172 Results from last 7 days Lab Units 06/24/2332406/23/23 0854 06/22/23 0611 06/21/23 0639 06/20/23 0636 06/19/23 1918 06/19/23 0654 06/18/23 1736 SODIUM mmol/L 139 140 139 < > 139 137 < > 139 POTASSIUM mmol/L 4.8 4.2 4.4 < > 4.5 4.8 < > 4.9 CO2 mmol/L 22 21 23 < > 25 26 < > 26 ANION GAP mmol/L 19 17 14 < > 15 13 < > 17 BUN mg/dL 14 15 15 < > 15 17 < > 17 CREATININE mg/dL 1.01 0.91 1.06* < > 1.09* 1.20* < > 1.15* GLUCOSE mg/dL 101* 98 98 < > 89 125* < > 89 EGFR mL/min/1.73m*2 73 82 69 < > 66 59* < > 62 MAGNESIUM mg/dL 1.95 1.79 1.77 < > 2.18 1.75 < > 1.70 PHOSPHORUS mg/dL -- -- -- -- 4.2 4.1 -- 4.5 < > = values in this interval not displayed. Results from last 7 days Lab Units 06/24/2332406/23/23 0854 06/22/23 0611 ALT U/L 23 21 25 AST U/L 25 22 30 ALK PHOS U/L 379* 357* 378* Imaging === 06/06/23 === XR FOOT 1-2 VIEWS RIGHT - Impression - 1. No acute fracture or malalignment. 2. Small radiopaque foreign body in the plantar soft tissues of the foot may be secondary to prior injury. I personally reviewed the image(s)/study and resident interpretation as stated by Dr. Hannah Thomas MD. I agree with the findings as stated. This study was interpreted at [facility], [place], [place]. MACRO: None Signed by: Julio Colon 06/19/2023 4:11 PM Dictation workstation: [id number] === 06/06/23 === CT ABDOMEN PELVIS W IV CONTRAST - Impression - 1. Slightly nodular contour of the liver, which is new compared to [address] CT. Splenomegaly measuring up to 12.9 cm, minimally increased compared to 202 CT. Findings can be secondary to hepatic venous congestion in the setting of cardiomegaly. Correlation with liver function tests is recommended. 2. Findings compatible with volume overload including aqfha-tp-socohosl volume abdominopelvic ascites and body wall edema. 3. Re-demonstration of a 7.5 cm left posterolateral pelvic cystic lesion likely corresponding to left ovarian/adnexal cyst seen on 04/24/2023 ultrasound. 4. Additional findings as described above. I personally reviewed the images/study and I agree with Ellen Ratliff DO's (resident assistant) findings as stated. This study was interpreted at [facility], [place], [place]. Assessment/Plan Ms. Smith is a 37 y.o. 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 Transferred to [facility] 06/14 from MICU for further management of pulm HTN medication titration, suspicion for HIT. 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 ::Unclear history of VTEs, could not rule out as US was limited by pain ::Troponin 17, no concern for ischemia ::CTA chest without PE ::V/Q with heterogeneity in both lungs, intermediate probability for pulm embolism. Chronic PE vs multifocal airway disease not entirely excluded :: 06/08: Mulvane repositioned in optical laboratory mechanic overnight, Mulvane again out of place this morning, cardiology repositioned Mulvane at bedside, now in appropriate location :: dsDNA, RF, anca panel, CCP, SSA/SSB, scl-70, HIV, complement C3 and C4 all WNL :: positive NICOLE and anti-centromere antibody :: trialed on Remodulin 06/11, had side effects and switched back to epo :: S/p RHC with swan, LHC with Heart Failure team 06/06, swan removed 06/13 :: IR placed Doss port 06/13 :: DVT U/S LE(06/14): No evidence of DVT, although limited on L LE :: Plan to pre-treat with Caffeine PO 200mg and Tylenol prior to increasing dose Plan -Remodulin dose decreased to 9 mg/kg/min after having significant intractable headache, nausea, chest pain which improved with supportive care - Awaiting medication delivery to patient's home, anticipated discharge 06/24 - Pulmonary hypertension team onboard # Thrombocytopenia, stable # 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 Started on Enoxaparin 06/19 for DVT prophylaxis - Serotonin release assay negative, started on Enoxaparin for DVT prophylaxis Plan - monitor plt; stable at this time # LLE cellulitis, improved # C/f URI # Right 1st metatarsal pain, improved PLAN: -Resp viral panel negative -Abx coverage initially with IV Vanc/Zosyn -Wound culture w/ susceptibilities: MSSA and Enterobacter cloacae complex (both susceptible to Bactrim) -06/08: Abx switched to Bactrim, plan for 7 day course (EOT 06/14) - DVT U/S LE(06/14): No evidence of DVT, although limited on L LE - Colchicine started for gout. X-ray foot neg. Uric acid wnl, unlikely R foot pain is gout; Podiatry signed off - Right 1st metatarsal erythematous, warm, very painful to touch Plan - Continue dressing changes - Continue supportive care - CRP 1.94 (prev 12.1 05/2023), ESR 39 (prev 22 04/2023) # CREST/[facility] PLAN: -autoimmune/connective tissue workup as above -rheum onboard: no indication for immunosuppression therapy, symptomatic tx as needed -added PPI - will darling rheum follow up outpatient #MAXIMO on CKD, (resolved) ::Likely cardiorenal PLAN: - Avoiding nephrotoxins - Fluid resuscitation prior to contrast #Elevated liver enzymes, cholestatic pattern, likely cardiohepatic ::AST 17, ALT 13, alk phos 281, R-factor 0.1 ::mild RUQ pain, Lazar's sign negative on exam ::Positive hepatitis C antibody, negative RNA - RUQ with hepatomegaly, splenomeagly - Improving with PAH treatment F: PRN E: PRN N: Regular A: PIVs GI ppx: Protonix DVT ppx: Lovenox Code status: Full code (confirmed on admission) NOK: Rocio Sánchez [phone] Patient and plan discussed with attending physician Dr. Willis. SIGNATURE: Jayson Tamayo MD PATIENT NAME: Jayna Smith DATE: June 24, 2023 Associated attestation - Tanya Willis DO - 06/24/2023 12:51 PM EDT I saw and evaluated the patient. I personally obtained the singh and critical portions of the history and physical exam or was physically present for singh and critical portions performed by the resident/fellow. I reviewed the resident/fellow's documentation and discussed the patient with the resident/fellow. I agree with the resident/fellow's medical decision making as documented in the note. Ms. Smith is a 37yo female with history of Raynaud's presenting with cardiogenic shock due to decompensated RV failure from underlying PAH who is now s/p dobutamine/Butch aided initiation of Velitri (now transitioned to Remodulin). She was found to have a positive anti-centromere ab consistent with CREST. #PAH: dose decreased overnight due to poor tolerance of dose increase. continue current dose of remodulin 9ng/kg/min. PRN APAP and caffeine for headache. Insurance authorization for remodulin approved, discharge pending delivery of medication and supplies (likely 06/24) #Cellulitis of the LE: continue local wound care, completed Bactrim #Concern for gout of R great toe MTP: Podiatry consulted for arthrocentesis to prove gout diagnosis. Xrays performed, no erosive joint disease. Uric acid is normal, however is not reliable for diagnosis of gout in acute flare. Per podiatry, possible neuropathy (suspect pain is primarily from LE edema, though could be from Remodulin). -Significantly improved after colchicine I spent 45 minutes in the professional and overall care of this patient. Internal Medicine Progress Note [facility] June 23, 2023 Patient: Jayna Smith Medical Record: [id number] Jayna Smith is a 37 y.o. female on day 13 of admission presenting with Pulmonary hypertension (CMS/HCC). Subjective Increased Remodulin to 10 ng/kg/min yesterday afternoon, was pre-treated with caffeine and Tylenol. Had headache after dose increase which resolved with Tylenol. Patient patient states that she still has headache, worst at the top of her head and feels like it is very painful. Reports that the pain in her foot has resolved. Denies any flushing, nausea, jaw pain overnight or this morning. Medications Medications: Scheduled medications busPIRone, 5 mg, oral, Daily digoxin, 125 mcg, oral, Daily enoxaparin, 40 mg, subcutaneous, q24h melatonin, 6 mg, oral, Daily pantoprazole, 40 mg, oral, Daily before breakfast trimethobenzamide, 200 mg, intramuscular, Once Continuous medications treprostinil, 10 ng/kg/min (Order-Specific), Last Rate: 10 ng/kg/min (06/22/231955) PRN medications PRN medications: acetaminophen OR acetaminophen OR acetaminophen, alum-mag hydroxide-simeth, caffeine, dextrose, dextrose, diclofenac sodium, gabapentin, glucagon, glucagon, ondansetron, oxygen Objective Vitals Visit Vitals BP 123/88 (BP Location: Left arm, Patient Position: Lying) Pulse 69 Temp 36.2 C (97.2 F) (Temporal) Resp 20 Intake/Output I/O last 3 completed shifts: In: 549.9 (6.8 mL/kg) [P.O.:490; I.V.:59.9 (0.7 mL/kg)] Out: 3925 (48.5 mL/kg) [Urine:3925 (1.3 mL/kg/hr)] Dosing Weight: 81 kg Physical Exam Constitutional: General: She is not in acute distress. Appearance: She is not ill-appearing or toxic-appearing. HENT: Head: Normocephalic and atraumatic. Cardiovascular: Rate and Rhythm: Normal rate. Heart sounds: Systolic murmur noted Pulmonary: Effort: Pulmonary effort is normal. No respiratory distress. Breath sounds: Normal breath sounds. No wheezing or rales. Abdominal: General: Abdomen is flat. There is no distension. Palpations: Abdomen is soft. Tenderness: There is no abdominal tenderness. There is no guarding. Skin: General: Skin is warm and dry. Comments: Right 1st metatarsal has improved swelling and erythema. Improved swelling in left foot. Doss catheter on R side neck. Neurological: Mental Status: She is alert and oriented to person, place, and time. Labs Results from last 7 days Lab Units 06/22/23 0611 06/21/23 0639 06/20/23 0636 WBC AUTO x10*3/uL 7.3 6.2 6.3 HEMOGLOBIN g/dL 13.2 12.7 12.8 HEMATOCRIT % 38.2 40.3 39.4 PLATELETS AUTO x10*3/uL 172 172 171 Results from last 7 days Lab Units 06/22/23 0611 06/21/23 0639 06/20/23 0636 06/19/23 1918 06/19/23 0654 06/18/23 1736 SODIUM mmol/L 139 141 139 137 < > 139 POTASSIUM mmol/L 4.4 4.2 4.5 4.8 < > 4.9 CO2 mmol/L 23 26 25 26 < > 26 ANION GAP mmol/L 14 14 15 13 < > 17 BUN mg/dL 15 15 15 17 < > 17 CREATININE mg/dL 1.06* 1.11* 1.09* 1.20* < > 1.15* GLUCOSE mg/dL 98 103* 89 125* < > 89 EGFR mL/min/1.73m*2 69 65 66 59* < > 62 MAGNESIUM mg/dL 1.77 1.93 2.18 1.75 < > 1.70 PHOSPHORUS mg/dL -- -- 4.2 4.1 -- 4.5 < > = values in this interval not displayed. Results from last 7 days Lab Units 06/22/23 0611 06/21/23 0639 06/20/23 0636 ALT U/L 25 23 19 AST U/L 30 25 26 ALK PHOS U/L 378* 367* 351* Imaging === 06/06/23 === XR FOOT 1-2 VIEWS RIGHT - Impression - 1. No acute fracture or malalignment. 2. Small radiopaque foreign body in the plantar soft tissues of the foot may be secondary to prior injury. I personally reviewed the image(s)/study and resident interpretation as stated by Dr. Hannah Thomas MD. I agree with the findings as stated. This study was interpreted at [facility], [place], [place]. MACRO: None Signed by: Julio Colon 06/19/2023 4:11 PM Dictation workstation: [id number] === 06/06/23 === CT ABDOMEN PELVIS W IV CONTRAST - Impression - 1. Slightly nodular contour of the liver, which is new compared to [address] CT. Splenomegaly measuring up to 12.9 cm, minimally increased compared to 2021 CT. Findings can be secondary to hepatic venous congestion in the setting of cardiomegaly. Correlation with liver function tests is recommended. 2. Findings compatible with volume overload including aebfy-fc-krkuzuxg volume abdominopelvic ascites and body wall edema. 3. Re-demonstration of a 7.5 cm left posterolateral pelvic cystic lesion likely corresponding to left ovarian/adnexal cyst seen on 04/24/2023 ultrasound. 4. Additional findings as described above. I personally reviewed the images/study and I agree with Ellen Ratliff DO's (resident assistant) findings as stated. This study was interpreted at [facility], [place], [place]. Assessment/Plan Ms. Smith is a 37 y.o. 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 Transferred to [facility] 06/14 from [facility] for further management of pulm HTN medication titration, suspicion for HIT. 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 ::Unclear history of VTEs, could not rule out as US was limited by pain ::Troponin 17, no concern for ischemia ::CTA chest without PE ::V/Q with heterogeneity in both lungs, intermediate probability for pulm embolism. Chronic PE vs multifocal airway disease not entirely excluded :: 06/08: Mulvane repositioned in optical laboratory mechanic overnight, Mulvane again out of place this morning, cardiology repositioned Mulvane at bedside, now in appropriate location :: dsDNA, RF, anca panel, CCP, SSA/SSB, scl-70, HIV, complement C3 and C4 all WNL :: positive NICOLE and anti-centromere antibody :: trialed on Remodulin 06/11, had side effects and switched back to epo :: S/p RHC with swan, LHC with Heart Failure team 06/06, swan removed 06/13 :: IR placed Doss port 06/13 :: DVT U/S LE(06/14): No evidence of DVT, although limited on L LE :: Plan to pre-treat with Caffeine PO 200mg and Tylenol prior to increasing dose Plan - Keep dose of remodulin (currently 10 ng/kg/min) as patient having headaches - Continue to monitor headaches - Awaiting insurance approval - Pulmonary hypertension team onboard # Thrombocytopenia, stable # 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 Started on Enoxaparin 06/19 for DVT prophylaxis - Serotonin release assay negative, started on Enoxaparin for DVT prophylaxis Plan - monitor plt; stable at this time # LLE cellulitis, improved # C/f URI # Right 1st metatarsal pain, improved PLAN: -Resp viral panel negative -Abx coverage initially with IV Vanc/Zosyn -Wound culture w/ susceptibilities: MSSA and Enterobacter cloacae complex (both susceptible to Bactrim) -06/08: Abx switched to Bactrim, plan for 7 day course (EOT 06/14) - DVT U/S LE(06/14): No evidence of DVT, although limited on L LE - Colchicine started for gout. X-ray foot neg. Uric acid wnl, unlikely R foot pain is gout; Podiatry signed off - Right 1st metatarsal erythematous, warm, very painful to touch Plan - Continue dressing changes - Continue supportive care - CRP 1.94 (prev 12.1 05/2023), ESR 39 (prev 22 04/2023) # CREST/[facility] PLAN: -autoimmune/connective tissue workup as above -rheum onboard: no indication for immunosuppression therapy, symptomatic tx as needed -added PPI - will darling rheum follow up outpatient #MAXIMO on CKD, (resolved) ::Likely cardiorenal PLAN: - Avoiding nephrotoxins - Fluid resuscitation prior to contrast #Elevated liver enzymes, cholestatic pattern, likely cardiohepatic ::AST 17, ALT 13, alk phos 281, R-factor 0.1 ::mild RUQ pain, Lazar's sign negative on exam ::Positive hepatitis C antibody, negative RNA - RUQ with hepatomegaly, splenomeagly - Improving with PAH treatment F: PRN E: PRN N: Regular A: PIVs GI ppx: Protonix DVT ppx: Lovenox Code status: Full code (confirmed on admission) NOK: Rocio Sánchez [phone] Patient and plan discussed with attending physician Dr. Willis. SIGNATURE: Jayson Tamayo MD PATIENT NAME: Jayna Smith DATE: June 23, 2023 Associated attestation - Tanya Willis DO - 06/23/2023 1:45 PM EDT I saw and evaluated the patient. I personally obtained the singh and critical portions of the history and physical exam or was physically present for singh and critical portions performed by the resident/fellow. I reviewed the resident/fellow's documentation and discussed the patient with the resident/fellow. I agree with the resident/fellow's medical decision making as documented in the note. Ms. Smith is a 37yo female with history of Raynaud's presenting with cardiogenic shock due to decompensated RV failure from underlying PAH who is now s/p dobutamine/Butch aided initiation of Velitri (now transitioned to Remodulin). She was found to have a positive anti-centromere ab consistent with CREST. #PAH: continue current dose of remodulin 10ng/kg/min. PRN APAP and caffeine for headache. Insurance authorization for remodulin approved, discharge pending delivery of medication and supplies #Cellulitis of the LE: continue local wound care, completed Bactrim #Concern for gout of R great toe MTP: Podiatry consulted for arthrocentesis to prove gout diagnosis. Xrays performed, no erosive joint disease. Uric acid is normal, however is not reliable for diagnosis of gout in acute flare. Per podiatry, possible neuropathy (suspect pain is primarily from LE edema, though could be from Remodulin). -Significantly improved after colchicine I spent 35 minutes in the professional and overall care of this patient. Internal Medicine Progress Note [facility] June 22, 2023 Patient: Jayna Smith Medical Record: [id number] Jayna Smith is a 37 y.o. female on day 13 of admission presenting with Pulmonary hypertension (CMS/HCC). Subjective Patient states that she feels well overall today. Has not had any headaches headaches, flushing, nausea, jaw pain overnight or this morning. Reports that the pain in her foot has improved, only feels mildly tense now. She is eating well and having daily bowel movements. Feeling slightly hesitant to go up on dose of Remodulin, but open to trying caffeine and Tylenol pre treatment prior to going up on dose today. Medications Medications: Scheduled medications digoxin, 125 mcg, oral, Daily enoxaparin, 40 mg, subcutaneous, q24h melatonin, 6 mg, oral, Daily pantoprazole, 40 mg, oral, Daily before breakfast trimethobenzamide, 200 mg, intramuscular, Once Continuous medications treprostinil, 9 ng/kg/min (Order-Specific), Last Rate: 9 ng/kg/min (06/22/23 0726) PRN medications PRN medications: acetaminophen OR acetaminophen OR acetaminophen, alum-mag hydroxide-simeth, dextrose, dextrose, diclofenac sodium, gabapentin, glucagon, glucagon, ondansetron, oxygen Objective Vitals Visit Vitals BP 116/80 (BP Location: Left arm, Patient Position: Lying) Pulse 85 Temp 36.1 C (97 F) (Temporal) Resp 18 Intake/Output I/O last 3 completed shifts: In: 475.5 (5.9 mL/kg) [P.O.:400; I.V.:75.5 (0.9 mL/kg)] Out: 3150 (38.9 mL/kg) [Urine:3150 (1.1 mL/kg/hr)] Dosing Weight: 81 kg Physical Exam Constitutional: General: She is not in acute distress. Appearance: She is not ill-appearing or toxic-appearing. HENT: Head: Normocephalic and atraumatic. Cardiovascular: Rate and Rhythm: Normal rate. Heart sounds: Systolic murmur noted Pulmonary: Effort: Pulmonary effort is normal. No respiratory distress. Breath sounds: Normal breath sounds. No wheezing or rales. Abdominal: General: Abdomen is flat. There is no distension. Palpations: Abdomen is soft. Tenderness: There is no abdominal tenderness. There is no guarding. Skin: General: Skin is warm and dry. Comments: Right 1st metatarsal has improved swelling and erythema. Mild swelling in left foot. Doss catheter on R side neck. Neurological: Mental Status: She is alert and oriented to person, place, and time. Labs Results from last 7 days Lab Units 06/21/23 0639 06/20/23 0636 06/19/23 0654 WBC AUTO x10*3/uL 6.2 6.3 7.0 HEMOGLOBIN g/dL 12.7 12.8 12.5 HEMATOCRIT % 40.3 39.4 39.0 PLATELETS AUTO x10*3/uL 172 171 180 Results from last 7 days Lab Units 06/21/23 0639 06/20/23 0636 06/19/23 1918 06/19/23 0654 06/18/23 1736 SODIUM mmol/L 141 139 137 < > 139 POTASSIUM mmol/L 4.2 4.5 4.8 < > 4.9 CO2 mmol/L 26 25 26 < > 26 ANION GAP mmol/L 14 15 13 < > 17 BUN mg/dL 15 15 17 < > 17 CREATININE mg/dL 1.11* 1.09* 1.20* < > 1.15* GLUCOSE mg/dL 103* 89 125* < > 89 EGFR mL/min/1.73m*2 65 66 59* < > 62 MAGNESIUM mg/dL 1.93 2.18 1.75 < > 1.70 PHOSPHORUS mg/dL -- 4.2 4.1 -- 4.5 < > = values in this interval not displayed. Results from last 7 days Lab Units 06/21/23 0639 06/20/23 0636 06/19/23 0654 ALT U/L 23 19 20 AST U/L 25 26 28 ALK PHOS U/L 367* 351* 353* Imaging === 06/06/23 === XR FOOT 1-2 VIEWS RIGHT - Impression - 1. No acute fracture or malalignment. 2. Small radiopaque foreign body in the plantar soft tissues of the foot may be secondary to prior injury. I personally reviewed the image(s)/study and resident interpretation as stated by Dr. Hannah Thomas MD. I agree with the findings as stated. This study was interpreted at [facility], [place], [place]. MACRO: None Signed by: Julio Colon 06/19/2023 4:11 PM Dictation workstation: [id number] === 06/06/23 === CT ABDOMEN PELVIS W IV CONTRAST - Impression - 1. Slightly nodular contour of the liver, which is new compared to [address] CT. Splenomegaly measuring up to 12.9 cm, minimally increased compared to 2021 CT. Findings can be secondary to hepatic venous congestion in the setting of cardiomegaly. Correlation with liver function tests is recommended. 2. Findings compatible with volume overload including hfxdp-ax-tllatddr volume abdominopelvic ascites and body wall edema. 3. Re-demonstration of a 7.5 cm left posterolateral pelvic cystic lesion likely corresponding to left ovarian/adnexal cyst seen on 04/24/2023 ultrasound. 4. Additional findings as described above. I personally reviewed the images/study and I agree with Ellen Ratliff DO's (resident assistant) findings as stated. This study was interpreted at [facility], [place], [place]. Assessment/Plan Ms. Smith is a 37 y.o. 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 Transferred to [facility] 06/14 from MICU for further management of pulm HTN medication titration, suspicion for HIT. 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 ::Unclear history of VTEs, could not rule out as US was limited by pain ::Troponin 17, no concern for ischemia ::CTA chest without PE ::V/Q with heterogeneity in both lungs, intermediate probability for pulm embolism. Chronic PE vs multifocal airway disease not entirely excluded :: 06/08: Mulvane repositioned in optical laboratory mechanic overnight, Mulvane again out of place this morning, cardiology repositioned Mulvane at bedside, now in appropriate location :: dsDNA, RF, anca panel, CCP, SSA/SSB, scl-70, HIV, complement C3 and C4 all WNL :: positive NICOLE and anti-centromere antibody :: trialed on Remodulin 06/11, had side effects and switched back to epo :: S/p RHC with swan, LHC with Heart Failure team 06/06, swan removed 06/13 :: IR placed Doss port 06/13 :: DVT U/S LE(06/14): No evidence of DVT, although limited on L LE Plan - Plan to increase dose of remodulin today (currently 9 ng/kg/min) and will pre-treat with Caffeine PO 200mg and Tylenol prior to increasing dose - Continue to monitor headaches - Awaiting insurance approval - Pulmonary hypertension team onboard # Thrombocytopenia, stable # 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 Started on Enoxaparin 06/19 for DVT prophylaxis - Serotonin release assay negative, started on Enoxaparin for DVT prophylaxis Plan - monitor plt; stable at this time # LLE cellulitis # C/f URI # Right 1st metatarsal pain PLAN: -Resp viral panel negative -Abx coverage initially with IV Vanc/Zosyn -Wound culture w/ susceptibilities: MSSA and Enterobacter cloacae complex (both susceptible to Bactrim) -06/08: Abx switched to Bactrim, plan for 7 day course (EOT 06/14) - DVT U/S LE(06/14): No evidence of DVT, although limited on L LE - Colchicine started for gout. X-ray foot neg. Uric acid wnl, unlikely R foot pain is gout; Podiatry signed off - Right 1st metatarsal erythematous, warm, very painful to touch Plan - Continue dressing changes - Continue supportive care - CRP 1.94 (prev 12.1 05/2023), ESR 39 (prev 22 04/2023) # CREST/[facility] PLAN: -autoimmune/connective tissue workup as above -rheum onboard: no indication for immunosuppression therapy, symptomatic tx as needed -added PPI - will darling rheum follow up outpatient #MAXIMO on CKD, (resolved) ::Likely cardiorenal PLAN: - Avoiding nephrotoxins - Fluid resuscitation prior to contrast #Elevated liver enzymes, cholestatic pattern, likely cardiohepatic ::AST 17, ALT 13, alk phos 281, R-factor 0.1 ::mild RUQ pain, Lazar's sign negative on exam ::Positive hepatitis C antibody, negative RNA - RUQ with hepatomegaly, splenomeagly - Improving with PAH treatment F: PRN E: PRN N: Regular A: PIVs GI ppx: Protonix DVT ppx: Lovenox Code status: Full code (confirmed on admission) NOK: Rocio Sánchez [phone] Patient and plan discussed with attending physician Dr. Willis. SIGNATURE: Jayson Tamayo MD PATIENT NAME: Jayna Smith DATE: June 22, 2023 Associated attestation - Tanya Willis DO - 06/22/2023 12:45 PM EDT I saw and evaluated the patient. I personally obtained the singh and critical portions of the history and physical exam or was physically present for singh and critical portions performed by the resident/fellow. I reviewed the resident/fellow's documentation and discussed the patient with the resident/fellow. I agree with the resident/fellow's medical decision making as documented in the note. Ms. Smith is a 37yo female with history of Raynaud's presenting with cardiogenic shock due to decompensated RV failure from underlying PAH who is now s/p dobutamine/Butch aided initiation of Velitri (now transitioned to Remodulin). She was found to have a positive anti-centromere ab consistent with CREST. #PAH: up-titrate Remodulin as tolerated, dose increase today with pre-medication prior to increase given significant headache with last increase. Remodulin pump teaching completed. Discharge pending insurance auth. #Cellulitis of the LE: wound care, completed Bactrim #Concern for gout of R great toe MTP: Podiatry consulted for arthrocentesis to prove gout diagnosis. Xrays performed, no erosive joint disease. Uric acid is normal, however is not reliable for diagnosis of gout in acute flare. Per podiatry, possible neuropathy (suspect pain is primarily from LE edema, though could be from Remodulin. -Significantly improved after colchicine I spent 35 minutes in the professional and overall care of this patient. Physical Therapy Physical Therapy Treatment Patient Name: Jayna Smith Today's Date: 06/21/2023 Time Calculation Start Time: 1409 Stop Time: 1437 Time Calculation (min): 28 min Assessment/Plan PT Assessment End of Session Communication: Bedside nurse Assessment Comment: Patient demonstrated ability to ambulate 200ft with no AD, and negotiate 2 stairs to simulate entry to home. Patient was educated on the importance of performing AP in bed to prevent blood clots, and to increase the amount of ambulation throughout the day. Low intensity therapy upon discharge remains appropriate. End of Session Patient Position: Bed, 2 rail up, Alarm off, not on at start of session PT Plan Treatment/Interventions: Bed mobility, Gait training, Transfer training, Stair training, Balance training, Strengthening, Endurance training, Range of motion, Home exercise program, Therapeutic activity, Therapeutic exercise PT Plan: Skilled PT PT Frequency: 3 times per week PT Discharge Recommendations: Low intensity level of continued care PT Recommended Transfer Status: Assist x1, Contact guard PT - OK to Discharge: Yes General Visit Information: PT Visit PT Received On: 06/21/23 General Patient Position Received: (sitting edge of bed on entry) General Comment: Patient pleasant and agreeable to therapy. Patient reported increased stiffness in LE due to swelling. Subjective Precautions: Vital Signs: Objective Pain: Pain Assessment Pain Assessment: 0-10 Pain Score: 0 - No pain Cognition: Cognition Overall Cognitive Status: Within Functional Limits Orientation Level: Oriented X4 Postural Control: Static Sitting Balance Static Sitting-Balance Support: Feet supported Static Sitting-Level of Assistance: Modified independent, Independent Static Sitting-Comment/Number of Minutes: Patient sitting EOB on arrival. Able to maintain position independently Treatments: Therapeutic Exercise Therapeutic Exercise Performed: Yes Therapeutic Exercise Activity 1: Instructed patient in seated therapeutic exercises to warm up for gait. AP x20, LAQs x10, marches x10 Manual Therapy Manual Therapy Performed: Yes Manual Therapy Activity 1: SPTA performed ankle stretching to decrease LE stiffness. Plantar flexion, dorsiflexion, eversion and inversion. 5 min. Bed Mobility Bed Mobility: Yes Bed Mobility 1 Bed Mobility 1: Sitting to supine Level of Assistance 1: Distant supervision Ambulation/Gait Training Ambulation/Gait Training Performed: Yes Ambulation/Gait Training 1 Surface 1: Level tile Device 1: No device Assistance 1: Distant supervision Quality of Gait 1: Decreased step length, Wide base of support Comments/Distance (ft) 1: Instructed patient in ambulation for 200', no AD and distant supervision assist. No acute LOB, minor swaying during gait. Transfers Transfer: Yes Transfer 1 Transfer From 1: Sit to, Stand to Transfer to 1: Sit, Stand Technique 1: Sit to stand, Stand to sit Transfer Level of Assistance 1: Distant supervision Stairs Stairs: Yes Stairs Rails 1: Right Device 1: Railing Assistance 1: Close supervision Comment/Number of Steps 1: Instructed patient in ascending and descending 2 steps w/ unilateral UE support. Outcome Measures: [facility] Basic Mobility Turning from your back to your side while in a flat bed without using bedrails: None Moving from lying on your back to sitting on the side of a flat bed without using bedrails: None Moving to and from bed to chair (including a wheelchair): A little Standing up from a chair using your arms (e.g. wheelchair or bedside chair): A little To walk in hospital room: A little Climbing 3-5 steps with railing: A little Basic Mobility - Total Score: 20 Education Documentation Body Mechanics, taught by JENNIFER Grover at 06/21/2023 2:51 PM. Learner: Patient Readiness: Acceptance Method: Explanation Response: Verbalizes Understanding Home Exercise Program, taught by JENNIFER Grover at 06/21/2023 2:51 PM. Learner: Patient Readiness: Acceptance Method: Explanation Response: Verbalizes Understanding Precautions, taught by JENNIFER Grover at 06/21/2023 2:51 PM. Learner: Patient Readiness: Acceptance Method: Explanation Response: Verbalizes Understanding Mobility Training, taught by JENNIFER Grover at 06/21/2023 2:51 PM. Learner: Patient Readiness: Acceptance Method: Explanation Response: Verbalizes Understanding Education Comments No comments found. OP EDUCATION: Encounter Problems Encounter Problems (Active) PT Problem Patient will ambulate 300 ft with LRAD and modified independence. (Progressing) Start: 06/13/23 Expected End: 06/27/23 Patient will transfer bed to/from chair with LRAD and modified independence. (Progressing) Start: 06/13/23 Expected End: 06/27/23 Patient will score >24 on the Tinetti test indicating low falls risk for homegoing. (Progressing) Start: 06/13/23 Expected End: 06/27/23 Patient will negotiate 13 LENIN with LRAD and modified independence. (Progressing) Start: 06/13/23 Expected End: 06/27/23 Pain - Adult Internal Medicine Progress Note [facility] June 21, 2023 Patient: Jayna Smith Medical Record: [id number] Jayna Smith is a 37 y.o. female on day 13 of admission presenting with Pulmonary hypertension (CMS/HCC). Subjective Overnight Events: Had headaches after titration of Remodulin, resolved around after Tylenol. This Morning: Patient states that her foot pain has improved only feels tense but not painful, reports pain medications helped last night. She states that this morning she feels upset after finding out her home will need repairs and feels upset about missing her children. On rounds patient doing well with active remodulin teaching. Denies any headaches, flushing, nausea, jaw pain this AM. No other concerns. Medications Medications: Scheduled medications colchicine, 0.6 mg, oral, q12h digoxin, 125 mcg, oral, Daily enoxaparin, 40 mg, subcutaneous, q24h melatonin, 6 mg, oral, Daily pantoprazole, 40 mg, oral, Daily before breakfast trimethobenzamide, 200 mg, intramuscular, Once Continuous medications treprostinil, 9 ng/kg/min (Order-Specific), Last Rate: 9 ng/kg/min (06/20/23 1345) PRN medications PRN medications: acetaminophen OR acetaminophen OR acetaminophen, alum-mag hydroxide-simeth, dextrose, dextrose, diclofenac sodium, gabapentin, glucagon, glucagon, ondansetron, oxygen Objective Vitals Visit Vitals BP 97/68 Pulse 77 Temp (!) 4 C (39.2 F) Resp 17 Intake/Output I/O last 3 completed shifts: In: 1277 (15.8 mL/kg) [P.O.:1130; I.V.:147 (1.8 mL/kg)] Out: 3325 (41 mL/kg) [Urine:3325 (1.1 mL/kg/hr)] Dosing Weight: 81 kg Physical Exam Constitutional: General: She is not in acute distress. Appearance: She is not ill-appearing or toxic-appearing. HENT: Head: Normocephalic and atraumatic. Cardiovascular: Rate and Rhythm: Normal rate. Heart sounds: Systolic murmur noted Pulmonary: Effort: Pulmonary effort is normal. No respiratory distress. Breath sounds: Normal breath sounds. No wheezing or rales. Abdominal: General: Abdomen is flat. There is no distension. Palpations: Abdomen is soft. Tenderness: There is no abdominal tenderness. There is no guarding. Skin: General: Skin is warm and dry. Comments: LLE edematous, wrapped in kerlix, erythematous and with iodine brown coloring. Right 1st metatarsal is swollen and erythematous. Doss catheter on R side neck, site with minor bleeding. Neurological: Mental Status: She is alert and oriented to person, place, and time. Labs Results from last 7 days Lab Units 06/20/23 0636 06/19/23 0654 06/18/23 0847 WBC AUTO x10*3/uL 6.3 7.0 4.9 HEMOGLOBIN g/dL 12.8 12.5 11.7* HEMATOCRIT % 39.4 39.0 37.2 PLATELETS AUTO x10*3/uL 171 180 146* Results from last 7 days Lab Units 06/20/23 0636 06/19/23 1918 06/19/23 0654 06/18/23 1736 SODIUM mmol/L 139 137 138 139 POTASSIUM mmol/L 4.5 4.8 4.7 4.9 CO2 mmol/L 25 26 26 26 ANION GAP mmol/L 15 13 16 17 BUN mg/dL 15 17 17 17 CREATININE mg/dL 1.09* 1.20* 1.17* 1.15* GLUCOSE mg/dL 89 125* 95 89 EGFR mL/min/1.73m*2 66 59* 61 62 MAGNESIUM mg/dL 2.18 1.75 1.72 1.70 PHOSPHORUS mg/dL 4.2 4.1 -- 4.5 Results from last 7 days Lab Units 06/20/23 0636 06/19/23 0654 06/18/23 0847 ALT U/L 19 20 17 AST U/L 26 28 21 ALK PHOS U/L 351* 353* 310* Imaging === 06/06/23 === XR FOOT 1-2 VIEWS RIGHT - Impression - 1. No acute fracture or malalignment. 2. Small radiopaque foreign body in the plantar soft tissues of the foot may be secondary to prior injury. I personally reviewed the image(s)/study and resident interpretation as stated by Dr. Hannah Thomas MD. I agree with the findings as stated. This study was interpreted at [facility], [place], [place]. MACRO: None Signed by: Julio Colon 06/19/2023 4:11 PM Dictation workstation: [id number] === 06/06/23 === CT ABDOMEN PELVIS W IV CONTRAST - Impression - 1. Slightly nodular contour of the liver, which is new compared to [address] CT. Splenomegaly measuring up to 12.9 cm, minimally increased compared to 2021 CT. Findings can be secondary to hepatic venous congestion in the setting of cardiomegaly. Correlation with liver function tests is recommended. 2. Findings compatible with volume overload including xqnzl-nr-shsgfulz volume abdominopelvic ascites and body wall edema. 3. Re-demonstration of a 7.5 cm left posterolateral pelvic cystic lesion likely corresponding to left ovarian/adnexal cyst seen on 04/24/2023 ultrasound. 4. Additional findings as described above. I personally reviewed the images/study and I agree with Ellen Ratliff DO's (resident assistant) findings as stated. This study was interpreted at [place], [place]. Assessment/Plan Ms. Smith is a 37 y.o. 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 Transferred to [facility] 06/14 from MICU for further management of pulm HTN medication titration, suspicion for HIT. 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 ::Unclear history of VTEs, could not rule out as US was limited by pain ::Troponin 17, no concern for ischemia ::CTA chest without PE ::V/Q with heterogeneity in both lungs, intermediate probability for pulm embolism. Chronic PE vs multifocal airway disease not entirely excluded :: 06/08: Mulvane repositioned in optical laboratory mechanic overnight, Mulvane again out of place this morning, cardiology repositioned Mulvane at bedside, now in appropriate location :: dsDNA, RF, anca panel, CCP, SSA/SSB, scl-70, HIV, complement C3 and C4 all WNL :: positive NICOLE and anti-centromere antibody :: trialed on Remodulin 06/11, had side effects and switched back to epo :: S/p RHC with swan, LHC with Heart Failure team 06/06, swan removed 06/13 :: IR placed Doss port 06/13 :: DVT U/S LE(06/14): No evidence of DVT, although limited on L LE Plan - extended myositis panel pending - Pulmonary hypertension team onboard - Continue remodulin 9 ng/kg/min, uptitrating today as tolerated # Thrombocytopenia, stable # 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 Started on Enoxaparin 06/19 for DVT prophylaxis - Serotonin release assay negative, started on Enoxaparin for DVT prophylaxis Plan - monitor plt; stable at this time # LLE cellulitis # C/f URI # Right 1st metatarsal pain PLAN: -Resp viral panel negative -Abx coverage initially with IV Vanc/Zosyn -Wound culture w/ susceptibilities: MSSA and Enterobacter cloacae complex (both susceptible to Bactrim) -06/08: Abx switched to Bactrim, plan for 7 day course (EOT 06/14) - DVT U/S LE(06/14): No evidence of DVT, although limited on L LE - Colchicine started for gout. X-ray foot neg. Uric acid wnl, unlikely R foot pain is gout; Podiatry signed off - Right 1st metatarsal erythematous, warm, very painful to touch Plan - Continue dressing changes - Continue supportive care - ESR/CRP levels pending # CREST/IcSSC PLAN: -autoimmune/connective tissue workup as above -rheum onboard: no indication for immunosuppression therapy, symptomatic tx as needed -added PPI - will darling rheum follow up outpatient #MAXIMO on CKD, (resolved) ::Likely cardiorenal PLAN: - Avoiding nephrotoxins - Fluid resuscitation prior to contrast #Elevated liver enzymes, cholestatic pattern, likely cardiohepatic ::AST 17, ALT 13, alk phos 281, R-factor 0.1 ::mild RUQ pain, Lazar's sign negative on exam ::Positive hepatitis C antibody, negative RNA - RUQ with hepatomegaly, splenomeagly - Improving with PAH treatment F: PRN E: PRN N: Regular A: PIVs GI ppx: Protonix DVT ppx: Lovenox Code status: Full code (confirmed on admission) NOK: Rocio Sánchez [phone] Patient and plan discussed with attending physician Dr. Willis. SIGNATURE: Jayson Tamayo MD PATIENT NAME: Jayna Smith DATE: June 21, 2023 Associated attestation - Tanya Willis DO - 06/21/2023 4:52 PM EDT I saw and evaluated the patient. I personally obtained the singh and critical portions of the history and physical exam or was physically present for singh and critical portions performed by the resident/fellow. I reviewed the resident/fellow's documentation and discussed the patient with the resident/fellow. I agree with the resident/fellow's medical decision making as documented in the note. Ms. Smith is a 37yo female with history of Raynaud's presenting with cardiogenic shock due to decompensated RV failure from underlying PAH who is now s/p dobutamine/Butch aided initiation of Velitri (now transitioned to Remodulin). She was found to have a positive anti-centromere ab consistent with CREST. #PAH: up-titrate Remodulin as tolerated. Remodulin pump teaching going well. Pending insurance auth. #Cellulitis of the LE: wound care, completed Bactrim #Concern for gout of R great toe MTP: Podiatry consulted for arthrocentesis to prove gout diagnosis. Xrays performed, no erosive joint disease. Uric acid is normal, however is not reliable for diagnosis of gout in acute flare. Per podiatry, possible neuropathy (suspect pain is primarily from LE edema, though could be from Remodulin. Pain significantly improved today -Responding to colchicine, completed short course -Can consider gabapentin for pain if needed I spent 35 minutes in the professional and overall care of this patient. Patient recd low intensity by pt stated she was not interested in home care or out [patient pt services Patient also declined the service provide patient who lace score is above 78 stated she can make own appointments Internal Medicine Progress Note [facility] June 20, 2023 Patient: Jayna Smith Medical Record: [id number] Jayna Smith is a 37 y.o. female on day 13 of admission presenting with Pulmonary hypertension (CMS/HCC). Subjective Overnight Events: Given Oxycodone 2.5mg for foot pain. This Morning: Patient states that her foot pain has improved, pain medications helped last night. She states that this morning she feels well overall but has not been able to walk around much due to the foot discomfort that she has. In good spirits today and states she is getting more comfortable with remodulin teaching. Denies any headaches, flushing, nausea, jaw pain. No other concerns. Medications Medications: Scheduled medications colchicine, 0.6 mg, oral, q12h digoxin, 125 mcg, oral, Daily melatonin, 6 mg, oral, Daily pantoprazole, 40 mg, oral, Daily before breakfast trimethobenzamide, 200 mg, intramuscular, Once Continuous medications treprostinil, 8 ng/kg/min (Order-Specific), Last Rate: 8 ng/kg/min (06/19/23 1000) PRN medications PRN medications: acetaminophen OR acetaminophen OR acetaminophen, alum-mag hydroxide-simeth, dextrose, dextrose, diclofenac sodium, glucagon, glucagon, ondansetron, oxygen Objective Vitals Visit Vitals BP 114/81 (BP Location: Left arm, Patient Position: Lying) Pulse 75 Temp 36.5 C (97.7 F) (Temporal) Resp 18 Intake/Output I/O last 3 completed shifts: In: 1146.8 (14.2 mL/kg) [P.O.:1100; I.V.:46.8 (0.6 mL/kg)] Out: 3850 (47.5 mL/kg) [Urine:3850 (1.3 mL/kg/hr)] Dosing Weight: 81 kg Physical Exam Constitutional: General: She is not in acute distress. Appearance: She is not ill-appearing or toxic-appearing. HENT: Head: Normocephalic and atraumatic. Cardiovascular: Rate and Rhythm: Normal rate. Heart sounds: Systolic murmur noted Pulmonary: Effort: Pulmonary effort is normal. No respiratory distress. Breath sounds: Normal breath sounds. No wheezing or rales. Abdominal: General: Abdomen is flat. There is no distension. Palpations: Abdomen is soft. Tenderness: There is no abdominal tenderness. There is no guarding. Skin: General: Skin is warm and dry. Comments: LLE edematous, wrapped in kerlix, erythematous and with iodine brown coloring. Right 1st metatarsal is swollen and erythematous. Doss catheter on R side neck, site with minor bleeding. Neurological: Mental Status: She is alert and oriented to person, place, and time. Labs Results from last 7 days Lab Units 06/19/23 0654 06/18/23 0847 06/17/23 1054 WBC AUTO x10*3/uL 7.0 4.9 6.0 HEMOGLOBIN g/dL 12.5 11.7* 13.6 HEMATOCRIT % 39.0 37.2 43.4 PLATELETS AUTO x10*3/uL 180 146* 157 Results from last 7 days Lab Units 06/19/23 1918 06/19/23 0654 06/18/23 1736 SODIUM mmol/L 137 138 139 POTASSIUM mmol/L 4.8 4.7 4.9 CO2 mmol/L 26 26 26 ANION GAP mmol/L 13 16 17 BUN mg/dL 17 17 17 CREATININE mg/dL 1.20* 1.17* 1.15* GLUCOSE mg/dL 125* 95 89 EGFR mL/min/1.73m*2 59* 61 62 MAGNESIUM mg/dL 1.75 1.72 1.70 PHOSPHORUS mg/dL 4.1 -- 4.5 Results from last 7 days Lab Units 06/19/23 0654 06/18/23 0847 06/17/23 1054 ALT U/L 20 17 20 AST U/L 28 21 26 ALK PHOS U/L 353* 310* 365* Imaging === 06/06/23 === XR FOOT 1-2 VIEWS RIGHT - Impression - 1. No acute fracture or malalignment. 2. Small radiopaque foreign body in the plantar soft tissues of the foot may be secondary to prior injury. I personally reviewed the image(s)/study and resident interpretation as stated by Dr. Hannah Thomas MD. I agree with the findings as stated. This study was interpreted at [place], [place]. MACRO: None Signed by: Julio Colon 06/19/2023 4:11 PM Dictation workstation: [id number] === 06/06/23 === CT ABDOMEN PELVIS W IV CONTRAST - Impression - 1. Slightly nodular contour of the liver, which is new compared to [address] CT. Splenomegaly measuring up to 12.9 cm, minimally increased compared to 2021 CT. Findings can be secondary to hepatic venous congestion in the setting of cardiomegaly. Correlation with liver function tests is recommended. 2. Findings compatible with volume overload including cligf-lg-keqminiq volume abdominopelvic ascites and body wall edema. 3. Re-demonstration of a 7.5 cm left posterolateral pelvic cystic lesion likely corresponding to left ovarian/adnexal cyst seen on 04/24/2023 ultrasound. 4. Additional findings as described above. I personally reviewed the images/study and I agree with Ellen Ratliff DO's (resident assistant) findings as stated. This study was interpreted at [place], [place]. MACRO: None Signed by: Esequiel Mendez 06/07/2023 10:33 AM Dictation workstation: [id number] Assessment/Plan Ms. Smith is a 37 y.o. 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 Transferred to [facility] 06/14 from MICU for further management of pulm HTN medication titration, suspicion for HIT. Updates 06/19: - Serotonin release assay negative, started on Enoxaparin today for DVT prophylaxis - X-ray foot neg. 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 ::Unclear history of VTEs, could not rule out as US was limited by pain ::Troponin 17, no concern for ischemia ::CTA chest without PE ::V/Q with heterogeneity in both lungs, intermediate probability for pulm embolism. Chronic PE vs multifocal airway disease not entirely excluded :: 06/08: Mulvane repositioned in optical laboratory mechanic overnight, Mulvane again out of place this morning, cardiology repositioned Mulvane at bedside, now in appropriate location :: dsDNA, RF, anca panel, CCP, SSA/SSB, scl-70, HIV, complement C3 and C4 all WNL :: positive NICOLE and anti-centromere antibody :: trialed on Remodulin 06/11, had side effects and switched back to epo :: S/p RHC with swan, LHC with Heart Failure team 06/06, swan removed 06/13 :: IR placed Doss port 06/13 :: DVT U/S LE(06/14): No evidence of DVT, although limited on L LE Plan - extended myositis panel pending - Pulmonary hypertension team onboard - Continue remodulin 8 ng/kg/min, uptitrating today as tolerated - tolerating well at this time # Thrombocytopenia, stable # 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 Started on Enoxaparin 06/19 for DVT prophylaxis # LLE cellulitis # C/f URI # Right 1st metatarsal pain PLAN: -Resp viral panel negative -Abx coverage initially with IV Vanc/Zosyn -Wound culture w/ susceptibilities: MSSA and Enterobacter cloacae complex (both susceptible to Bactrim) -06/08: Abx switched to Bactrim, plan for 7 day course (EOT 06/14) Plan - Wound care is following - DVT U/S LE(06/14): No evidence of DVT, although limited on L LE - Right 1st metatarsal erythematous, warm, very painful to touch - Colchicine started for gout. X-ray foot neg. Uric acid wnl, unlikely R foot pain is gout; Podiatry signed off # CREST/[facility] PLAN: -autoimmune/connective tissue workup as above -rheum onboard: no indication for immunosuppression therapy, symptomatic tx as needed -added PPI - will darling rheum follow up outpatient #MAXIMO on CKD, (resolved) ::Likely cardiorenal PLAN: - Avoiding nephrotoxins - Fluid resuscitation prior to contrast #Elevated liver enzymes, cholestatic pattern, likely cardiohepatic ::AST 17, ALT 13, alk phos 281, R-factor 0.1 ::mild RUQ pain, Lazar's sign negative on exam ::Positive hepatitis C antibody, negative RNA - RUQ with hepatomegaly, splenomeagly - Improving with PAH treatment F: PRN E: PRN N: Regular A: PIVs GI ppx: Protonix DVT ppx: Lovenox Code status: Full code (confirmed on admission) NOK: Rocio Sánchez [phone] Patient and plan discussed with attending physician Dr. Willis. SIGNATURE: Jayson Tamayo MD PATIENT NAME: Jayna Smith DATE: June 20, 2023 Associated attestation - Tanya Willis DO - 06/20/2023 2:30 PM EDT I saw and evaluated the patient. I personally obtained the singh and critical portions of the history and physical exam or was physically present for singh and critical portions performed by the resident/fellow. I reviewed the resident/fellow's documentation and discussed the patient with the resident/fellow. I agree with the resident/fellow's medical decision making as documented in the note. Ms. Smith is a 37yo female with history of Raynaud's presenting with cardiogenic shock due to decompensated RV failure from underlying PAH who is now s/p dobutamine/Butch aided initiation of Velitri (now transitioned to Remodulin). She was found to have a positive anti-centromere ab consistent with CREST. #PAH: up-titrate Remodulin as tolerated. Remodulin pump teaching started yesterday. Holding Lasix due to c/f Gout given inflamed R great toe MTP and tenderness #Cellulitis of the LE: wound care c/s, completed Bactrim #Concern for gout of R great toe MTP: Podiatry consulted for arthrocentesis to prove gout diagnosis. Xrays performed, no erosive joint disease. Uric acid is normal, however is not reliable for diagnosis of gout in acute flare. Per podiatry, possible neuropathy (suspect pain is primarily from LE edema, though could be from Remodulin. Pain significantly improved today -Responding to colchicine, continue for short course -Can consider gabapentin for pain if needed -Can consider additional diuresis tomorrow if needed I spent 40 minutes in the professional and overall care of this patient. 06/19/23 3680 Discharge Planning Living Arrangements Spouse/significant other Support Systems Spouse/significant other Assistance Needed none Type of Residence Private residence Number of Stairs to Enter Residence 3 Number of Stairs Within Residence 0 Do you have animals or pets at home? Yes Type of Animals or Pets dog Who is requesting discharge planning? Provider Home or Post Acute Services None Patient expects to be discharged to: Home Financial Resource Strain How hard is it for you to pay for the very basics like food, housing, medical care, and heating? Not very Housing Stability In the last 12 months, was there a time when you were not able to pay the mortgage or rent on time? N In the last 12 months, how many places have you lived? 1 In the last 12 months, was there a time when you did not have a steady place to sleep or slept in a snf (including now)? N Transportation Needs In the past 12 months, has lack of transportation kept you from medical appointments or from getting medications? no In the past 12 months, has lack of transportation kept you from meetings, work, or from getting things needed for daily living? No Patient Choice Patient / Family choosing to utilize agency / facility established prior to hospitalization No Jayna Smith is a 37 y.o. female on day 13 of admission presenting with Pulmonary hypertension (CMS/HCC). Subjective OVN: No acute events This morning the patient Complains of bilateral foot pain. Her left foot is wrapped up and she was previously treated for LLE cellulitis. Her right 1st metatarsal is erythematous and very painful to the touch. No history of gout. Also notes anxiety this morning that has since subsided. Denies sob, nvd. Objective Physical Exam Constitutional: General: She is not in acute distress. Appearance: She is not ill-appearing or toxic-appearing. HENT: Head: Normocephalic and atraumatic. Cardiovascular: Rate and Rhythm: Normal rate. Heart sounds: Systolic murmur noted Pulmonary: Effort: Pulmonary effort is normal. No respiratory distress. Breath sounds: Normal breath sounds. No wheezing or rales. Abdominal: General: Abdomen is flat. There is no distension. Palpations: Abdomen is soft. Tenderness: There is no abdominal tenderness. There is no guarding. Skin: General: Skin is warm and dry. Comments: LLE edematous, wrapped in kerlix, erythematous and with iodine brown coloring. Right 1st metatarsal is swollen and erythematous. Doss catheter on R side neck, site with minor bleeding. Neurological: Mental Status: She is alert and oriented to person, place, and time. Last Recorded Vitals Blood pressure 102/72, pulse 81, temperature 36.2 C (97.2 F), temperature source Temporal, resp. rate 18, height 1.727 m (5' 8), weight 76.4 kg (168 lb 6.9 oz), last menstrual period 06/06/2023, SpO2 92 %. Intake/Output last 3 Shifts: I/O last 3 completed shifts: In: 514.3 (6.3 mL/kg) [P.O.:480; I.V.:34.3 (0.4 mL/kg)] Out: 2650 (32.7 mL/kg) [Urine:2650 (0.9 mL/kg/hr)] Dosing Weight: 81 kg Relevant Results Scheduled medications colchicine, 1.2 mg, oral, Daily digoxin, 125 mcg, oral, Daily melatonin, 6 mg, oral, Daily pantoprazole, 40 mg, oral, Daily before breakfast trimethobenzamide, 200 mg, intramuscular, Once Continuous medications treprostinil, 8 ng/kg/min (Order-Specific), Last Rate: 8 ng/kg/min (06/19/23 1000) PRN medications PRN medications: acetaminophen OR acetaminophen OR acetaminophen, alum-mag hydroxide-simeth, dextrose, dextrose, diclofenac sodium, glucagon, glucagon, ondansetron, oxygen Assessment/Plan Principal Problem: Pulmonary hypertension (CMS/HCC) Ms. Smith is a 37 y.o. 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 Transferred to [facility] 06/14 from [facility]U for further management of pulm HTN medication titration, suspicion for HIT. Updates 06/18: - Continue remodulin 8 ng/kg/min, uptitrating as tolerated, no side effects reported - PF4 positive, serotonin release assay pending. Continuing to hold heparin products. - Colchicine started for gout. X-ray foot ordered. 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 ::Unclear history of VTEs, could not rule out as US was limited by pain ::Troponin 17, no concern for ischemia ::CTA chest without PE ::V/Q with heterogeneity in both lungs, intermediate probability for pulm embolism. Chronic PE vs multifocal airway disease not entirely excluded :: 06/08: Mulvane repositioned in optical laboratory mechanic overnight, Mulvane again out of place this morning, cardiology repositioned Mulvane at bedside, now in appropriate location :: dsDNA, RF, anca panel, CCP, SSA/SSB, scl-70, HIV, complement C3 and C4 all WNL :: positive NICOLE and anti-centromere antibody :: trialed on Remodulin 06/11, had side effects and switched back to epo :: S/p RHC with swan, LHC with Heart Failure team 06/06, swan removed 06/13 :: IR placed Doss port 06/13 :: DVT U/S LE(06/14): No evidence of DVT, although limited on L LE Plan - extended myositis panel pending - Rheumatology consulted - Pulmonary hypertension team onboard - Was on epo 6 ng/kg/min, switched to remodulin again on 06/14 - Continue remodulin 8 ng/kg/min, uptitrating as tolerated # Thrombocytopenia, now resolved # 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 Continuing to hold heparin products. # LLE cellulitis # C/f URI # Right 1st metatarsal pain PLAN: -Resp viral panel negative -Abx coverage initially with IV Vanc/Zosyn -Wound culture w/ susceptibilities: MSSA and Enterobacter cloacae complex (both susceptible to Bactrim) -06/08: Abx switched to Bactrim, plan for 7 day course (EOT 4/5) Plan - Wound care is following - DVT U/S LE(06/14): No evidence of DVT, although limited on L LE - Right 1st metatarsal erythematous, warm, very painful to touch - Colchicine started for gout. X-ray foot ordered. Uric acid sent - Podiatry consulted for possible aspiration # CREST/[facility] PLAN: -autoimmune/connective tissue workup as above -rheum onboard: no indication for immunosuppression therapy, symptomatic tx as needed -added PPI - will darling rheum follow up outpatient #MAXIMO on CKD, (resolved) ::Likely cardiorenal PLAN: - Avoiding nephrotoxins - Fluid resuscitation prior to contrast #Elevated liver enzymes, cholestatic pattern, likely cardiohepatic ::AST 17, ALT 13, alk phos 281, R-factor 0.1 ::mild RUQ pain, Lazar's sign negative on exam ::Positive hepatitis C antibody, negative RNA - RUQ with hepatomegaly, splenomeagly - Improving with PAH treatment F: PRN E: PRN N: Regular A: PIVs GI ppx: Protonix DVT ppx: held subcutaneous heparin given c/f HIT Code status: Full code (confirmed on admission) NOK: Rocio Sánchez [phone] Blake Tamez MD Associated attestation - Tanya Willis DO - 06/20/2023 2:32 PM EDT I saw and evaluated the patient. I personally obtained the singh and critical portions of the history and physical exam or was physically present for singh and critical portions performed by the resident/fellow. I reviewed the resident/fellow's documentation and discussed the patient with the resident/fellow. I agree with the resident/fellow's medical decision making as documented in the note. Ms. Smith is a 37yo female with history of Raynaud's presenting with cardiogenic shock due to decompensated RV failure from underlying PAH who is now s/p dobutamine/Butch aided initiation of Velitri (now transitioned to Remodulin). She was found to have a positive anti-centromere ab consistent with CREST. #PAH: up-titrate Remodulin as tolerated. Remodulin pump teaching started yesterday. Holding Lasix due to c/f Gout given inflamed R great toe MTP and tenderness #Cellulitis of the LE: wound care c/s, completed Bactrim #Concern for gout of R great toe MTP given severe tenderness, erythema and warmth of joint: Podiatry consulted for arthrocentesis to prove gout diagnosis. Serum uric acid not reliable for diagnosis of gout if in acute flare I spent 35 minutes in the professional and overall care of this patient. Physical Therapy Therapy Communication Note Patient Name: Jayna Smith Today's Date: 06/19/2023 Discipline: Physical Therapy Missed Visit Reason: Missed Visit Reason: Other (Comment) (Patient refusing, reporting already ambulating hallways without assist. Report visitor almost here as well. Will continue to attempt as schedule permits.) Missed Time: Attempt Comment: Jayna Smith is a 37 y.o. female on day 12 of admission presenting with Pulmonary hypertension (CMS/HCC). Subjective NAOE. Reports sob has been improving. No complaints this morning. Patient requesting to speak to Dr. Alegria unhappy and feeling overwhelmed about infusions. Objective Physical Exam Constitutional: General: She is not in acute distress. Appearance: She is not ill-appearing or toxic-appearing. HENT: Head: Normocephalic and atraumatic. Cardiovascular: Rate and Rhythm: Normal rate. Heart sounds: Systolic murmur noted Pulmonary: Effort: Pulmonary effort is normal. No respiratory distress. Breath sounds: Normal breath sounds. No wheezing or rales. Abdominal: General: Abdomen is flat. There is no distension. Palpations: Abdomen is soft. Tenderness: There is no abdominal tenderness. There is no guarding. Skin: General: Skin is warm and dry. Comments: LLE edematous, wrapped in kerlix, erythematous and with iodine brown coloring. Doss catheter on R side neck, site with minor bleeding. Neurological: Mental Status: She is alert and oriented to person, place, and time. Last Recorded Vitals Blood pressure 116/80, pulse 84, temperature 36.7 C (98.1 F), temperature source Temporal, resp. rate 20, height 1.727 m (5' 8), weight 80.3 kg (177 lb 0.5 oz), last menstrual period 06/06/2023, SpO2 100 %. Intake/Output last 3 Shifts: I/O last 3 completed shifts: In: 302.9 (3.7 mL/kg) [P.O.:240; I.V.:62.9 (0.8 mL/kg)] Out: 2250 (27.8 mL/kg) [Urine:2250 (0.8 mL/kg/hr)] Dosing Weight: 81 kg Relevant Results Current Facility-Administered Medications: acetaminophen (Tylenol) tablet 650 mg, 650 mg, oral, q4h PRN, 650 mg at 06/14/232058 OR acetaminophen (Tylenol) oral liquid 650 mg, 650 mg, nasogastric tube, q4h PRN OR acetaminophen (Tylenol) suppository 650 mg, 650 mg, rectal, q4h PRN, Jayson Tamayo MD alum-mag hydroxide-simeth (Mylanta) 200-200-20 mg/5 mL oral suspension 10 mL, 10 mL, oral, 4x daily PRN, Martha Juárez MD MPH, 10 mL at 06/16/23 2221 dextrose 50 % injection 12.5 g, 12.5 g, intravenous, q15 min PRN, Jayson Tamayo MD dextrose 50 % injection 25 g, 25 g, intravenous, q15 min PRN, Jayson Tamayo MD digoxin (Lanoxin) tablet 125 mcg, 125 mcg, oral, Daily, Jayson Tamayo MD, 125 mcg at 06/18/23 1252 glucagon (Glucagen) injection 1 mg, 1 mg, intramuscular, q15 min PRN, Jayson Tamayo MD glucagon (Glucagen) injection 1 mg, 1 mg, intramuscular, q15 min PRN, Jayson Tamayo MD melatonin tablet 6 mg, 6 mg, oral, Daily, Jayson Tamayo MD, 6 mg at 06/11/23 1830 ondansetron (Zofran) injection 4 mg, 4 mg, intravenous, q6h PRN, Jayson Tamayo MD, 4 mg at 06/14/23 2254 oxygen (O2) therapy, , inhalation, Continuous PRN - O2/gases, Jayson Tamayo MD, Rate Verify at 06/11/23 0800 pantoprazole (ProtoNix) EC tablet 40 mg, 40 mg, oral, Daily before breakfast, Jayson Tamayo MD, 40 mg at 06/18/23 0843 treprostinil (Remodulin) 20 mcg/mL in diluent for treprostinil 100 mL Bag, 7 ng/kg/min (Order-Specific), intravenous, Continuous, Franklin Ribeiro MD, Last Rate: 1.701 mL/hr at 06/18/23 1233, 7 ng/kg/min at 06/18/23 1233 trimethobenzamide (Tigan) injection 200 mg, 200 mg, intramuscular, Once, Jayson Tamayo MD Results for orders placed or performed during the hospital encounter of 06/06/23 (from the past 24 hour(s)) CBC and Auto Differential Result Value Ref Range WBC 4.9 4.4 - 11.3 x10*3/uL nRBC 0.0 0.0 - 0.0 /100 WBCs RBC 4.13 4.00 - 5.20 x10*6/uL Hemoglobin 11.7 (L) 12.0 - 16.0 g/dL Hematocrit 37.2 36.0 - 46.0 % MCV 90 80 - 100 fL MCH 28.3 26.0 - 34.0 pg MCHC 31.5 (L) 32.0 - 36.0 g/dL RDW 16.8 (H) 11.5 - 14.5 % Platelets 146 (L) 150 - 450 x10*3/uL Neutrophils % 65.1 40.0 - 80.0 % Immature Granulocytes %, Automated 0.6 0.0 - 0.9 % Lymphocytes % 20.3 13.0 - 44.0 % Monocytes % 11.8 2.0 - 10.0 % Eosinophils % 1.4 0.0 - 6.0 % Basophils % 0.8 0.0 - 2.0 % Neutrophils Absolute 3.21 1.20 - 7.70 x10*3/uL Immature Granulocytes Absolute, Automated 0.03 0.00 - 0.70 x10*3/uL Lymphocytes Absolute 1.00 (L) 1.20 - 4.80 x10*3/uL Monocytes Absolute 0.58 0.10 - 1.00 x10*3/uL Eosinophils Absolute 0.07 0.00 - 0.70 x10*3/uL Basophils Absolute 0.04 0.00 - 0.10 x10*3/uL Comprehensive Metabolic Panel Result Value Ref Range Glucose 79 74 - 99 mg/dL Sodium 140 136 - 145 mmol/L Potassium 4.4 3.5 - 5.3 mmol/L Chloride 107 98 - 107 mmol/L Bicarbonate 24 21 - 32 mmol/L Anion Gap 13 10 - 20 mmol/L Urea Nitrogen 13 6 - 23 mg/dL Creatinine 1.00 0.50 - 1.05 mg/dL eGFR 74 >60 mL/min/1.73m*2 Calcium 7.9 (L) 8.6 - 10.6 mg/dL Albumin 2.7 (L) 3.4 - 5.0 g/dL Alkaline Phosphatase 310 (H) 33 - 110 U/L Total Protein 5.4 (L) 6.4 - 8.2 g/dL AST 21 9 - 39 U/L Bilirubin, Total 1.1 0.0 - 1.2 mg/dL ALT 17 7 - 45 U/L Magnesium Result Value Ref Range Magnesium 1.46 (L) 1.60 - 2.40 mg/dL Assessment/Plan Principal Problem: Pulmonary hypertension (CMS/HCC) Ms. Smith is a 37 y.o. 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 Transferred to [facility] 06/14 from MICU for further management of pulm HTN medication titration, suspicion for HIT. Updates 06/17: - Continue remodulin 7 ng/kg/min, uptitrating as tolerated, no side effects reported - PF4 positive, serotonin release assay pending. Continuing to hold heparin products. 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 ::Unclear history of VTEs, could not rule out as US was limited by pain ::Troponin 17, no concern for ischemia ::CTA chest without PE ::V/Q with heterogeneity in both lungs, intermediate probability for pulm embolism. Chronic PE vs multifocal airway disease not entirely excluded :: 06/08: Mulvane repositioned in optical laboratory mechanic overnight, Mulvane again out of place this morning, cardiology repositioned Mulvane at bedside, now in appropriate location :: dsDNA, RF, anca panel, CCP, SSA/SSB, scl-70, HIV, complement C3 and C4 all WNL :: positive NICOLE and anti-centromere antibody :: trialed on Remodulin 06/11, had side effects and switched back to epo :: S/p RHC with swan, LHC with Heart Failure team 06/06, swan removed 06/13 :: IR placed Doss port 06/13 :: DVT U/S LE(06/14): No evidence of DVT, although limited on L LE Plan - extended myositis panel pending - Rheumatology consulted - Pulmonary hypertension team onboard - Was on epo 6 ng/kg/min, switched to remodulin again on 06/14 - Continue remodulin 7 ng/kg/min, uptitrating as tolerated # Thrombocytopenia, now resolved # 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 Continuing to hold heparin products. # LLE cellulitis # C/f URI PLAN: -Resp viral panel negative -Abx coverage initially with IV Vanc/Zosyn -Wound culture w/ susceptibilities: MSSA and Enterobacter cloacae complex (both susceptible to Bactrim) -06/08: Abx switched to Bactrim, plan for 7 day course (EOT 06/14) Plan - Wound care is following - DVT U/S LE(06/14): No evidence of DVT, although limited on L LE # CREST/[facility] PLAN: -autoimmune/connective tissue workup as above -rheum onboard: no indication for immunosuppression therapy, symptomatic tx as needed -added PPI - will darling rheum follow up outpatient #MAXIMO on CKD, (resolved) ::Likely cardiorenal PLAN: - Avoiding nephrotoxins - Fluid resuscitation prior to contrast #Elevated liver enzymes, cholestatic pattern, likely cardiohepatic ::AST 17, ALT 13, alk phos 281, R-factor 0.1 ::mild RUQ pain, Lazar's sign negative on exam ::Positive hepatitis C antibody, negative RNA - RUQ with hepatomegaly, splenomeagly - Improving with PAH treatment F: PRN E: PRN N: Regular A: PIVs GI ppx: Protonix DVT ppx: held subcutaneous heparin given c/f HIT Code status: Full code (confirmed on admission) NOK: Rocio Sánchez [phone] Isabella Jimenes MD Associated attestation - Tanya Willis DO - 06/18/2023 1:40 PM EDT I saw and evaluated the patient. I personally obtained the singh and critical portions of the history and physical exam or was physically present for singh and critical portions performed by the resident/fellow. I reviewed the resident/fellow's documentation and discussed the patient with the resident/fellow. I agree with the resident/fellow's medical decision making as documented in the note. Ms. Smith is a 37yo female with history of Raynaud's presenting with cardiogenic shock due to decompensated RV failure from underlying PAH who is now s/p dobutamine/Butch aided initiation of Velitri (now transitioned to Remodulin). She was found to have a positive anti-centromere ab consistent with CREST. #PAH: up-titrate Remodulin today to 8ng/kg/min. Remodulin pump teaching pending. 20mg IV Lasix today for diuresis #Cellulitis of the LE: wound care c/s, completed Bactrim Rest as noted above I spent 40 minutes in the professional and overall care of this patient. 06/18/23 Transitional Care Coordination Progress Note: Patient discussed during interdisciplinary rounds. Team members present: JOHN MOJICA MD Plan per Medical/Surgical team: holding heparin products Iso possible HIT. Diuresis with Lasix not medically ready 2- 3 days Discharge disposition: Home no anticipated needs Status-Inpatient Payer- [facility] PLAN Potential Barriers: None ADOD: 06-20-2023 Kb MOREL [phone] Jayna Smith is a 37 y.o. female on day 11 of admission presenting with Pulmonary hypertension (CMS/HCC). Subjective Patient is feeling well today, denies any acute complaints - no chest pain, SOB, palpitations, dizziness, lightheadedness. Pain the the doss line insertion has improved. Objective Physical Exam Constitutional: General: She is not in acute distress. Appearance: She is not ill-appearing or toxic-appearing. HENT: Head: Normocephalic and atraumatic. Cardiovascular: Rate and Rhythm: Normal rate. Heart sounds: Systolic murmur noted Pulmonary: Effort: Pulmonary effort is normal. No respiratory distress. Breath sounds: Normal breath sounds. No wheezing or rales. Abdominal: General: Abdomen is flat. There is no distension. Palpations: Abdomen is soft. Tenderness: There is no abdominal tenderness. There is no guarding. Skin: General: Skin is warm and dry. Comments: LLE edematous, wrapped in kerlix, erythematous and with iodine brown coloring. Doss catheter on R side neck, site with minor bleeding. Neurological: Mental Status: She is alert and oriented to person, place, and time. Last Recorded Vitals Blood pressure 117/81, pulse 83, temperature 36.4 C (97.6 F), temperature source Temporal, resp. rate 18, height 1.727 m (5' 8), weight 80.3 kg (177 lb 0.5 oz), last menstrual period 06/06/2023, SpO2 96 %. Intake/Output last 3 Shifts: I/O last 3 completed shifts: In: 279.6 (3.5 mL/kg) [P.O.:240; I.V.:39.6 (0.5 mL/kg)] Out: - (0 mL/kg) Dosing Weight: 81 kg Relevant Results Scheduled medications digoxin, 125 mcg, oral, Daily melatonin, 6 mg, oral, Daily pantoprazole, 40 mg, oral, Daily before breakfast trimethobenzamide, 200 mg, intramuscular, Once Continuous medications treprostinil, 7 ng/kg/min (Order-Specific), Last Rate: 7 ng/kg/min (06/16/232029) PRN medications PRN medications: acetaminophen OR acetaminophen OR acetaminophen, alum-mag hydroxide-simeth, dextrose, dextrose, glucagon, glucagon, ondansetron, oxygen Results for orders placed or performed during the hospital encounter of 06/06/23 (from the past 24 hour(s)) CBC and Auto Differential Result Value Ref Range WBC 5.7 4.4 - 11.3 x10*3/uL nRBC 0.0 0.0 - 0.0 /100 WBCs RBC 4.64 4.00 - 5.20 x10*6/uL Hemoglobin 12.9 12.0 - 16.0 g/dL Hematocrit 41.3 36.0 - 46.0 % MCV 89 80 - 100 fL MCH 27.8 26.0 - 34.0 pg MCHC 31.2 (L) 32.0 - 36.0 g/dL RDW 16.7 (H) 11.5 - 14.5 % Platelets 124 (L) 150 - 450 x10*3/uL Neutrophils % 64.5 40.0 - 80.0 % Immature Granulocytes %, Automated 0.3 0.0 - 0.9 % Lymphocytes % 21.3 13.0 - 44.0 % Monocytes % 12.2 2.0 - 10.0 % Eosinophils % 0.7 0.0 - 6.0 % Basophils % 1.0 0.0 - 2.0 % Neutrophils Absolute 3.70 1.20 - 7.70 x10*3/uL Immature Granulocytes Absolute, Automated 0.02 0.00 - 0.70 x10*3/uL Lymphocytes Absolute 1.22 1.20 - 4.80 x10*3/uL Monocytes Absolute 0.70 0.10 - 1.00 x10*3/uL Eosinophils Absolute 0.04 0.00 - 0.70 x10*3/uL Basophils Absolute 0.06 0.00 - 0.10 x10*3/uL Comprehensive Metabolic Panel Result Value Ref Range Glucose 86 74 - 99 mg/dL Sodium 135 (L) 136 - 145 mmol/L Potassium 5.1 3.5 - 5.3 mmol/L Chloride 101 98 - 107 mmol/L Bicarbonate 26 21 - 32 mmol/L Anion Gap 13 10 - 20 mmol/L Urea Nitrogen 14 6 - 23 mg/dL Creatinine 1.17 (H) 0.50 - 1.05 mg/dL eGFR 61 >60 mL/min/1.73m*2 Calcium 8.9 8.6 - 10.6 mg/dL Albumin 3.1 (L) 3.4 - 5.0 g/dL Alkaline Phosphatase 317 (H) 33 - 110 U/L Total Protein 6.2 (L) 6.4 - 8.2 g/dL AST 23 9 - 39 U/L Bilirubin, Total 1.0 0.0 - 1.2 mg/dL ALT 16 7 - 45 U/L Magnesium Result Value Ref Range Magnesium 1.91 1.60 - 2.40 mg/dL POCT GLUCOSE Result Value Ref Range POCT Glucose 174 (H) 74 - 99 mg/dL POCT GLUCOSE Result Value Ref Range POCT Glucose 145 (H) 74 - 99 mg/dL POCT GLUCOSE Result Value Ref Range POCT Glucose 118 (H) 74 - 99 mg/dL This patient has a central line Reason for the central line remaining today? Parenteral medication Ms. Smith is a 37 y.o. 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 Transferred to [facility] 06/14 from MICU for further management of pulm HTN medication titration, suspicion for HIT. Updates 06/16: - Continue remodulin 7 ng/kg/min, uptitrating as tolerated, no side effects reported - Serotonin release assay pending. Continuing to hold heparin products Iso possible HIT. 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 ::Unclear history of VTEs, could not rule out as US was limited by pain ::Troponin 17, no concern for ischemia ::CTA chest without PE ::V/Q with heterogeneity in both lungs, intermediate probability for pulm embolism. Chronic PE vs multifocal airway disease not entirely excluded :: 06/08: Mulvane repositioned in optical laboratory mechanic overnight, Mulvane again out of place this morning, cardiology repositioned Mulvane at bedside, now in appropriate location :: dsDNA, RF, anca panel, CCP, SSA/SSB, scl-70, HIV, complement C3 and C4 all WNL :: positive NICOLE and anti-centromere antibody :: trialed on Remodulin 06/11, had side effects and switched back to epo :: S/p RHC with swan, LHC with Heart Failure team 06/06, swan removed 06/13 :: IR placed Doss port 06/13 :: DVT U/S LE(06/14): No evidence of DVT, although limited on L LE Plan - extended myositis panel pending - Rheumatology consulted - Pulmonary hypertension team onboard - Was on epo 6 ng/kg/min, switched to remodulin again on 06/14 - Continue remodulin 7 ng/kg/min, uptitrating as tolerated # Thrombocytopenia # 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 Continuing to hold heparin products. # LLE cellulitis # C/f URI PLAN: -Resp viral panel negative -Abx coverage initially with IV Vanc/Zosyn -Wound culture w/ susceptibilities: MSSA and Enterobacter cloacae complex (both susceptible to Bactrim) -06/08: Abx switched to Bactrim, plan for 7 day course (EOT 06/14) Plan - Wound care is following - DVT U/S LE(06/14): No evidence of DVT, although limited on L LE # CREST/IcSSC PLAN: -autoimmune/connective tissue workup as above -rheum onboard: no indication for immunosuppression therapy, symptomatic tx as needed -added PPI - will darling rheum follow up outpatient #MAXIMO on CKD, (resolved) ::Likely cardiorenal PLAN: - Avoiding nephrotoxins - Fluid resuscitation prior to contrast #Elevated liver enzymes, cholestatic pattern, likely cardiohepatic ::AST 17, ALT 13, alk phos 281, R-factor 0.1 ::mild RUQ pain, Lazar's sign negative on exam ::Positive hepatitis C antibody, negative RNA - RUQ with hepatomegaly, splenomeagly - Improving with PAH treatment F: PRN E: PRN N: Regular A: PIVs GI ppx: Protonix DVT ppx: held subcutaneous heparin given c/f HIT Code status: Full code (confirmed on admission) NOK: Rocio Sánchez [phone] Assessment/Plan Principal Problem: Pulmonary hypertension (CMS/HCC) Nicole Magaña MD IM PGY 3 Associated attestation - rOlin Garcia MD - 06/17/2023 4:07 PM EDT I saw and evaluated the patient. I personally obtained the singh and critical portions of the history and physical exam or was physically present for singh and critical portions performed by the resident/fellow. I reviewed the resident/fellow's documentation and discussed the patient with the resident/fellow. I agree with the resident/fellow's medical decision making as documented in the note. Internal Medicine Progress Note [facility] June 16, 2023 Patient: Jayna Smiht Medical Record: [id number] Jayna Smith is a 37 yo female PMH T2DM, HTN, Raynaud's, CKD, chronic L leg wound with recent surgical debridement who presented to the hospital with concerns for cellulitis who was admitted to the MICU for further management a new diagnosis of pulmonary hypertension with likely underlying CREST syndrome, transferred to [facility] 06/14 for further management of pulmonary HTN and c/f HIT. Subjective NAEON. Patient denies dyspnea, lightheadedness, headache, flushing, cp, abd pain. Medications Medications: Scheduled medications digoxin, 125 mcg, oral, Daily insulin lispro, 0-5 Units, subcutaneous, TID with meals melatonin, 6 mg, oral, Daily pantoprazole, 40 mg, oral, Daily before breakfast trimethobenzamide, 200 mg, intramuscular, Once Continuous medications treprostinil, 6 ng/kg/min (Order-Specific), Last Rate: 6 ng/kg/min (06/16/23 1255) PRN medications PRN medications: acetaminophen OR acetaminophen OR acetaminophen, dextrose, dextrose, glucagon, glucagon, ondansetron, oxygen Objective Vitals Visit Vitals BP 97/64 (BP Location: Right arm, Patient Position: Lying) Pulse 81 Temp 36.6 C (97.9 F) (Temporal) Resp 20 Intake/Output I/O last 3 completed shifts: In: 1188.9 (14.7 mL/kg) [P.O.:1080; I.V.:108.9 (1.3 mL/kg)] Out: 250 (3.1 mL/kg) [Urine:250 (0.1 mL/kg/hr)] Dosing Weight: 81 kg Physical Exam Constitutional: General: She is not in acute distress. Appearance: Normal appearance. She is normal weight. She is not ill-appearing or toxic-appearing. HENT: Head: Normocephalic and atraumatic. Cardiovascular: Rate and Rhythm: Normal rate. Heart sounds: Murmur heard. Comments: Loud systolic murmur noted Pulmonary: Effort: Pulmonary effort is normal. No respiratory distress. Breath sounds: Normal breath sounds. No wheezing or rales. Abdominal: General: Abdomen is flat. There is no distension. Palpations: Abdomen is soft. Tenderness: There is no abdominal tenderness. There is no guarding. Skin: General: Skin is warm and dry. Comments: Significant contraction of index finger on R hand with dry ulceration on the tip LLE edematous, wrapped in kerlix, erythematous and with iodine brown coloring. Doss catheter on R side neck, site clean. Neurological: General: No focal deficit present. Mental Status: She is alert and oriented to person, place, and time. Labs Results from last 7 days Lab Units 06/16/23 0856 06/15/23 0000 06/14/23 0003 WBC AUTO x10*3/uL 5.7 5.4 4.0* HEMOGLOBIN g/dL 12.9 13.1 12.6 HEMATOCRIT % 41.3 41.7 37.5 PLATELETS AUTO x10*3/uL 124* 112* 91* Results from last 7 days Lab Units 06/16/23 0856 06/15/23 0000 06/14/23 0003 SODIUM mmol/L 135* 137 135* POTASSIUM mmol/L 5.1 5.0 4.7 CO2 mmol/L 26 21 24 ANION GAP mmol/L 13 16 14 BUN mg/dL 14 12 10 CREATININE mg/dL 1.17* 1.02 1.07* GLUCOSE mg/dL 86 102* 119* EGFR mL/min/1.73m*2 61 72 68 MAGNESIUM mg/dL 1.91 1.87 1.65 Results from last 7 days Lab Units 06/16/23 0856 06/15/23 0000 06/14/23 0003 ALT U/L 16 16 20 AST U/L 23 15 18 ALK PHOS U/L 317* 243* 247* Results from last 7 days Lab Units 06/13/23 0246 INR 1.1 Results from last 7 days Lab Units 06/12/23 2247 06/12/23 0819 06/12/23 0204 FIO2 % 36 28 28 Assessment/Plan Jayna Smith is a 37 y.o. 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 Transferred to [facility] 06/14 for further management of pulm HTN medication titration, suspicion for HIT. Updates 06/15: - DVT U/S LE(06/14): No evidence of DVT, although limited on L LE - Continue remodulin 6ng/kg/min, uptitrating as tolerated - serotonin release assay pending. Continuing to hold heparin products. Platelets improving. 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 ::Unclear history of VTEs, could not rule out as US was limited by pain ::Troponin 17, no concern for ischemia ::CTA chest without PE ::V/Q with heterogeneity in both lungs, intermediate probability for pulm embolism. Chronic PE vs multifocal airway disease not entirely excluded :: 06/08: Mulvane repositioned in optical laboratory mechanic overnight, Mulvane again out of place this morning, cardiology repositioned Mulvane at bedside, now in appropriate location :: dsDNA, RF, anca panel, CCP, SSA/SSB, scl-70, HIV, complement C3 and C4 all WNL :: positive NICOLE and anti-centromere antibody :: trialed on Remodulin 06/11, had side effects and switched back to epo :: S/p RHC with swan, LHC with Heart Failure team 06/06, swan removed 06/13 :: IR placed Doss port 06/13 Plan - extended myositis panel pending - Rheumatology onboard - Pulmonary hypertension team onboard - Was on epo 6 ng/kg/min, switched to remodulin again on 06/14 - Continue remodulin 6ng/kg/min, uptitrating as tolerated #Thrombocytopenia #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 Continuing to hold heparin products. Platelets improving. #LLE cellulitis #C/f URI PLAN: -Sent blood, sputum, and wound cultures -Resp viral panel negative -Abx coverage initially with IV Vanc/Zosyn -Wound culture w/ susceptibilities: MSSA and Enterobacter cloacae complex (both susceptible to Bactrim) -06/08: Abx switched to Bactrim, plan for 7 day course (EOT 06/14) Plan - Consult placed to wound care - DVT U/S LE(06/14): No evidence of DVT, although limited on L LE #CREST/IcSSC PLAN: -autoimmune/connective tissue workup as above -rheum onboard: no indication for immunosuppression therapy, symptomatic tx as needed -added PPI - will darling rheum follow up outpatient #MAXIMO on CKD, (resolved) ::Likely cardiorenal PLAN: - Avoiding nephrotoxins - Fluid resuscitation prior to contrast #Elevated liver enzymes, cholestatic pattern, likely cardiohepatic ::AST 17, ALT 13, alk phos 281, R-factor 0.1 ::mild RUQ pain, Lazar's sign negative on exam ::Positive hepatitis C antibody, negative RNA - RUQ with hepatomegaly, splenomeagly - Improving with PAH treatment F: PRN E: PRN N: Regular A: PIVs GI ppx: Protonix DVT ppx: held subcutaneous heparin given c/f HIT Code status: Full (confirmed on admission) NOK: Rocio Sánchez [phone] Patient seen and staffed with attending physician. Jessa Mccollum MD Internal Medicine, PGY-1 SIGNATURE: Jessa Griffiths MD PATIENT NAME: Jayna Smith DATE: June 16, 2023 Associated attestation - Orlin Garcia MD - 06/16/2023 4:14 PM EDT I saw and evaluated the patient. I personally obtained the singh and critical portions of the history and physical exam or was physically present for singh and critical portions performed by the resident/fellow. I reviewed the resident/fellow's documentation and discussed the patient with the resident/fellow. I agree with the resident/fellow's medical decision making as documented in the note. Reports breathing well, no pain. Denies any prostaglandin side effects. Will increase Remodulin to 7 ng/kg/min. Pending training and home medication supplies. Plts improving, JAE pending for HIT, no evidence of thrombosis. Internal Medicine Progress Note [facility] June 15, 2023 Patient: Jayna Smith Medical Record: [id number] Jayna Smith is a 37 yo female PMH T2DM, HTN, Raynaud's, CKD, chronic L leg wound with recent surgical debridement who presented to the hospital with concerns for cellulitis who was admitted to the MICU for further management a new diagnosis of pulmonary hypertension with likely underlying CREST syndrome, transferred to [facility] 06/14 for further management of pulmonary HTN and c/f HIT. MICU Hospital Course Jayna Smith is a 37 y.o. female PMH T2DM, HTN, Raynaud's, CKD, who is presenting as a transfer from [facility] for severe pulmonary hypertension and tricuspid regurgitation. Pt initially presented on 06/02 for left leg pain and swelling and concern for cellulitis / to a chronic anterior left leg wound and recent surgical debridement. She was admitted to [facility] on 06/03 for IV antibiotic management. Noted to have a new murmur and cardiology was consulted as a TTE on 04/08/23 revealed a dilated RA and elevated RVSP with severe TR (full report below). She was recommended to follow-up with cardiology outpatient, however does not appear that this occurred. Repeat TTE on 06/05 revealed similar findings and she was transferred to [facility] for further evaluation and management of right heart failure/pulm htn. There has been concern for underlying autoimmune or connective tissue disease in the past given her hand deformities and history of Raynaud's. She recently had a positive hepatitis C antibody. Pulmonary hypertension specialist, Dr Schumacher, Advanced Heart Failure team, and Rheumatology were consulted. Patient received autoimmune workup which was significant for positive NICOLE and anti-centromere antibodies. 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 Rheumatology confirmed no current indication for immunosuppression therapy. Patient started on PPI for GERD, a common associated symptom of CREST. Patient underwent left and right heart cath with Mulvane catheter placement. Additionally patient with CT PE negative for ILD or acute PE. V/Q scan not concerning for CTEPH. 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 Patient started on inhaled Nitric Oxide and dobutamine drip while titrating Veletri. Patient weaned off of nitric oxide and dobutamine by 06/10. Patient's LLE cellulitis initially treated with IV Vanc and Zosyn. Wound care consulted. Wound cultures came back positive for MSSA and Enterobacter cloacae complex. Antibiotics transitioned to PO Bactrim as both were shown to be susceptible on cultures. Patient with MAXIMO on CKD, however renal function improved as patient began to auto diurese after initiation of PAH treatment. Mulvane in place, Veletri dose stable since 06/10, further uptitration likely limited by patient symptoms. Off dobutamine since 06/10, and digoxin started for inotropy. On 06/11, trialed on Remodulin, developed side effects, and switched back to Epo. per Dr. Schumacher may have been due to flushed line and bolusing of drug. Mulvane removed and doss catheter placed with IR on 06/13. Course c/b chronic LLE wound, wound care following, on Bactrim. 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 Schumacher, rheumatology Subjective Patient seen at bedside. She reports that she is feeling overall okay. Having a little bit of pain at the Doss catheter site, but she states that this is tolerable. She reports that the swelling that she has in her left lower extremity has improved, but still feeling pretty tender and hard. Denies any chest pain, shortness of breath, fevers, chills, nausea, vomiting. Medications Medications: Scheduled medications digoxin, 125 mcg, oral, Daily insulin lispro, 0-5 Units, subcutaneous, TID with meals melatonin, 6 mg, oral, Daily pantoprazole, 40 mg, oral, Daily before breakfast sulfamethoxazole-trimethoprim, 160 mg, oral, q12h LOUISE trimethobenzamide, 200 mg, intramuscular, Once Continuous medications treprostinil, 6 ng/kg/min (Order-Specific), Last Rate: 6 ng/kg/min (06/15/23 1600) PRN medications PRN medications: acetaminophen OR acetaminophen OR acetaminophen, dextrose, dextrose, glucagon, glucagon, ondansetron, oxygen Objective Vitals Visit Vitals BP 107/87 Pulse 91 Temp 36.8 C (98.2 F) (Temporal) Resp 26 Intake/Output I/O last 3 completed shifts: In: 752.6 (8.6 mL/kg) [P.O.:600; I.V.:152.6 (1.7 mL/kg)] Out: 600 (6.9 mL/kg) [Urine:600 (0.2 mL/kg/hr)] Weight: 87.3 kg Physical Exam Constitutional: General: She is not in acute distress. Appearance: Normal appearance. She is normal weight. She is not ill-appearing or toxic-appearing. HENT: Head: Normocephalic and atraumatic. Cardiovascular: Rate and Rhythm: Normal rate. Heart sounds: Murmur heard. Comments: Loud systolic murmur noted Pulmonary: Effort: Pulmonary effort is normal. No respiratory distress. Breath sounds: Normal breath sounds. No wheezing or rales. Abdominal: General: Abdomen is flat. There is no distension. Palpations: Abdomen is soft. Tenderness: There is no abdominal tenderness. There is no guarding. Skin: General: Skin is warm and dry. Comments: Significant contraction of index finger on R hand with dry ulceration on the tip LLE edematous, wrapped in kerlix, erythematous and with iodine brown coloring. Doss catheter on R side neck. Neurological: General: No focal deficit present. Mental Status: She is alert and oriented to person, place, and time. Labs Results from last 7 days Lab Units 06/15/23 0000 06/14/23 0003 06/13/23 0246 WBC AUTO x10*3/uL 5.4 4.0* 3.5* HEMOGLOBIN g/dL 13.1 12.6 13.2 HEMATOCRIT % 41.7 37.5 42.0 PLATELETS AUTO x10*3/uL 112* 91* 103* Results from last 7 days Lab Units 06/15/23 0000 06/14/23 0003 06/13/23 0246 SODIUM mmol/L 137 135* 137 POTASSIUM mmol/L 5.0 4.7 5.0 CO2 mmol/L 21 24 29 ANION GAP mmol/L 16 14 8* BUN mg/dL 12 10 9 CREATININE mg/dL 1.02 1.07* 1.03 GLUCOSE mg/dL 102* 119* 73* EGFR mL/min/1.73m*2 72 68 71 MAGNESIUM mg/dL 1.87 1.65 1.82 Results from last 7 days Lab Units 06/15/23 0000 06/14/23 0003 06/13/23 0246 ALT U/L 16 20 21 AST U/L 15 18 20 ALK PHOS U/L 243* 247* 238* Results from last 7 days Lab Units 06/13/23 0246 INR 1.1 Results from last 7 days Lab Units 06/12/23 2247 06/12/23 0819 06/12/23 0204 FIO2 % 36 28 28 Results from last 7 days Lab Units 06/09/23 0614 POCT PH, VENOUS pH 7.36 POCT PCO2, VENOUS mm Hg 41 Imaging === 06/06/23 === XR CHEST 1 VIEW - Impression - 1. Insertion of right internal jugular approach central venous catheter with its tip projecting over the lower SVC. 2. Similar appearance of mild pulmonary edema with small left pleural effusion. I personally reviewed the images/study and I agree with the findings as stated by Dr. Lauri Chavez. This study was interpreted at [place], [place]. MACRO: None Signed by: Kin Quigley 06/15/2023 2:16 PM Dictation workstation: [id number] === 06/06/23 === CT ABDOMEN PELVIS W IV CONTRAST - Impression - 1. Slightly nodular contour of the liver, which is new compared to [address] CT. Splenomegaly measuring up to 12.9 cm, minimally increased compared to 2021 CT. Findings can be secondary to hepatic venous congestion in the setting of cardiomegaly. Correlation with liver function tests is recommended. 2. Findings compatible with volume overload including [id number] volume abdominopelvic ascites and body wall edema. 3. Re-demonstration of a 7.5 cm left posterolateral pelvic cystic lesion likely corresponding to left ovarian/adnexal cyst seen on 04/24/2023 ultrasound. 4. Additional findings as described above. I personally reviewed the images/study and I agree with Ellen Ratliff DO's (resident assistant) findings as stated. This study was interpreted at [place], [place]. MACRO: None Signed by: Esequiel Mendez 06/07/2023 10:33 AM Dictation workstation: [id number] Assessment/Plan Jayna Smith is a 37 y.o. 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 Transferred to [facility] 06/14 for further management of pulm HTN medication titration, suspicion for HIT. 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 ::Unclear history of VTEs, could not rule out as US was limited by pain ::Troponin 17, no concern for ischemia ::CTA chest without PE ::V/Q with heterogeneity in both lungs, intermediate probability for pulm embolism. Chronic PE vs multifocal airway disease not entirely excluded :: 06/08: Mulvane repositioned in optical laboratory mechanic overnight, Mulvane again out of place this morning, cardiology repositioned Mulvane at bedside, now in appropriate location :: dsDNA, RF, anca panel, CCP, SSA/SSB, scl-70, HIV, complement C3 and C4 all WNL :: positive NICOLE and anti-centromere antibody :: trialed on Remodulin 06/11, had side effects and switched back to epo :: S/p RHC with swan, LHC with Heart Failure team 06/06, swan removed 06/13 :: IR placed Doss port 06/13 Plan - extended myositis panel pending - Rheumatology onboard - Pulmonary hypertension team onboard - Was on epo 6 ng/kg/min, switched to remodulin again on 06/14 #Thrombocytopenia #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 - Plt 91 today, 230s on admission, baseline appears to be between 120-170s - 4Ts score 5, stopped subcutaneous heparin, PF4 sent - Bactrim could be causing bone marrow suppression, but wouldn't expect isolated thrombocytopenia - If worsening, will plan to consult hematology Plan - monitor plt, 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, holding subcutaneous heparin - serotonin release assay pending #LLE cellulitis #C/f URI PLAN: -Sent blood, sputum, and wound cultures -Resp viral panel negative -Abx coverage initially with IV Vanc/Zosyn -Wound culture w/ susceptibilities: MSSA and Enterobacter cloacae complex (both susceptible to Bactrim) -06/08: Abx switched to Bactrim, plan for 7 day course (EOT 06/14) Plan -Consult placed to wound care - DVT US ordered and pending #CREST/IcSSC PLAN: -autoimmune/connective tissue workup as above -rheum onboard: no indication for immunosuppression therapy, symptomatic tx as needed -added PPI - will darling rheum follow up outpatient #MAXIMO on CKD, (resolved) ::Likely cardiorenal PLAN: - Avoiding nephrotoxins - Fluid resuscitation prior to contrast #Elevated liver enzymes, cholestatic pattern, likely cardiohepatic ::AST 17, ALT 13, alk phos 281, R-factor 0.1 ::mild RUQ pain, Lazar's sign negative on exam ::Positive hepatitis C antibody, negative RNA - RUQ with hepatomegaly, splenomeagly - Improving with PAH treatment F: PRN E: PRN N: Regular A: PIVs GI ppx: Protonix DVT ppx: held subcutaneous heparin given c/f HIT Code status: Full (confirmed on admission) NOK: Rocio Sánchez [phone] Patient and plan will be discussed with attending physician Dr. Garcia in the morning. SIGNATURE: Jayson Tamayo MD PATIENT NAME: Jayna Smith DATE: June 15, 2023 Jayna Smith is a 37 y.o. female on day 9 of admission presenting with Pulmonary hypertension (CMS/HCC). Hospital course: Jayna Smith is a 37 y.o. female PMH T2DM, HTN, Raynaud's, CKD, who is presenting as a transfer from [facility] for severe pulmonary hypertension and tricuspid regurgitation. Pt initially presented on 06/02 for left leg pain and swelling and concern for cellulitis 2/2 to a chronic anterior left leg wound and recent surgical debridement. She was admitted to [facility] on 06/03 for IV antibiotic management. Noted to have a new murmur and cardiology was consulted as a TTE on 04/08/23 revealed a dilated RA and elevated RVSP with severe TR (full report below). She was recommended to follow-up with cardiology outpatient, however does not appear that this occurred. Repeat TTE on 06/05 revealed similar findings and she was transferred to [facility] for further evaluation and management of right heart failure/pulm htn. There has been concern for underlying autoimmune or connective tissue disease in the past given her hand deformities and history of Raynaud's. She recently had a positive hepatitis C antibody. Pulmonary hypertension specialist, Dr Schumacher, Advanced Heart Failure team, and Rheumatology were consulted. Patient received autoimmune workup which was significant for positive NICOLE and anti-centromere antibodies. 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 Rheumatology confirmed no current indication for immunosuppression therapy. Patient started on PPI for GERD, a common associated symptom of CREST. Patient underwent left and right heart cath with Mulvane catheter placement. Additionally patient with CT PE negative for ILD or acute PE. V/Q scan not concerning for CTEPH. 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 Patient started on inhaled Nitric Oxide and dobutamine drip while titrating Veletri. Patient weaned off of nitric oxide and dobutamine by 06/10. Patient's LLE cellulitis initially treated with IV Vanc and Zosyn. Wound care consulted. Wound cultures came back positive for MSSA and Enterobacter cloacae complex. Antibiotics transitioned to PO Bactrim as both were shown to be susceptible on cultures. Patient with MAXIMO on CKD, however renal function improved as patient began to auto diurese after initiation of PAH treatment. Mulvane in place, Veletri dose stable since 06/10, further uptitration likely limited by patient symptoms. Off dobutamine since 06/10, and digoxin started for inotropy. On 06/11, trialed on Remodulin, developed side effects, and switched back to Epo. per Dr. Schumacher may have been due to flushed line and bolusing of drug. Mulvane removed and doss catheter placed with IR on 06/13. Course c/b chronic LLE wound, wound care following, on Bactrim. 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 Schumacher, rheumatology Subjective NAEON. Doss placed with IR yesterday. No complaints this morning. No CP, dyspnea. Still having some pain at LLE. Would like to go home soon. Objective Physical Exam Constitutional: General: She is not in acute distress. Appearance: Normal appearance. She is normal weight. She is not ill-appearing or toxic-appearing. HENT: Head: Normocephalic and atraumatic. Eyes: Pupils: Pupils are equal, round, and reactive to light. Cardiovascular: Rate and Rhythm: Normal rate. Heart sounds: Murmur heard. Comments: Significant mid to end systolic murmur noted Pulmonary: Effort: Pulmonary effort is normal. No respiratory distress. Breath sounds: Normal breath sounds. No wheezing or rales. On 4L NC Abdominal: General: Abdomen is flat. There is no distension. Palpations: Abdomen is soft. Tenderness: There is no abdominal tenderness. There is no guarding. Skin: General: Skin is warm and dry. Comments: Significant contraction of index finger on R hand with dry ulceration on the tip LLE edematous, wrapped in kerlix, erythematous Old blood noted at site of doss catheter placement Neurological: General: No focal deficit present. Mental Status: She is alert and oriented to person, place, and time. Last Recorded Vitals Blood pressure 106/73, pulse 67, temperature 36.4 C (97.5 F), resp. rate 20, height 1.727 m (5' 8), weight 87.3 kg (192 lb 7.4 oz), last menstrual period 06/06/2023, SpO2 93 %. Intake/Output last 3 Shifts: I/O last 3 completed shifts: In: 752.6 (8.6 mL/kg) [P.O.:600; I.V.:152.6 (1.7 mL/kg)] Out: 600 (6.9 mL/kg) [Urine:600 (0.2 mL/kg/hr)] Weight: 87.3 kg Relevant Results Scheduled medications digoxin, 125 mcg, oral, Daily [Held by provider] heparin (porcine), 5,000 Units, subcutaneous, q8h insulin lispro, 0-5 Units, subcutaneous, TID with meals melatonin, 6 mg, oral, Daily pantoprazole, 40 mg, oral, Daily before breakfast sulfamethoxazole-trimethoprim, 160 mg, oral, q12h LOUISE trimethobenzamide, 200 mg, intramuscular, Once Continuous medications epoprostenol (Veletri) 2,000 mcg in sodium chloride 0.9% 100 mL (20 mcg/mL) bag, 6 ng/kg/min (Order-Specific), Last Rate: 6 ng/kg/min (06/15/23 0400) PRN medications PRN medications: acetaminophen OR acetaminophen OR acetaminophen, dextrose, dextrose, glucagon, glucagon, HYDROmorphone, ondansetron, oxyCODONE, oxyCODONE, oxygen Results for orders placed or performed during the hospital encounter of 06/06/23 (from the past 24 hour(s)) POCT GLUCOSE Result Value Ref Range POCT Glucose 69 (L) 74 - 99 mg/dL POCT GLUCOSE Result Value Ref Range POCT Glucose 68 (L) 74 - 99 mg/dL POCT GLUCOSE Result Value Ref Range POCT Glucose 56 (L) 74 - 99 mg/dL POCT GLUCOSE Result Value Ref Range POCT Glucose 136 (H) 74 - 99 mg/dL POCT GLUCOSE Result Value Ref Range POCT Glucose 153 (H) 74 - 99 mg/dL CBC and Auto Differential Result Value Ref Range WBC 5.4 4.4 - 11.3 x10*3/uL nRBC 0.0 0.0 - 0.0 /100 WBCs RBC 4.72 4.00 - 5.20 x10*6/uL Hemoglobin 13.1 12.0 - 16.0 g/dL Hematocrit 41.7 36.0 - 46.0 % MCV 88 80 - 100 fL MCH 27.8 26.0 - 34.0 pg MCHC 31.4 (L) 32.0 - 36.0 g/dL RDW 16.5 (H) 11.5 - 14.5 % Platelets 112 (L) 150 - 450 x10*3/uL Neutrophils % 68.9 40.0 - 80.0 % Immature Granulocytes %, Automated 0.4 0.0 - 0.9 % Lymphocytes % 17.0 13.0 - 44.0 % Monocytes % 12.1 2.0 - 10.0 % Eosinophils % 0.7 0.0 - 6.0 % Basophils % 0.9 0.0 - 2.0 % Neutrophils Absolute 3.68 1.20 - 7.70 x10*3/uL Immature Granulocytes Absolute, Automated 0.02 0.00 - 0.70 x10*3/uL Lymphocytes Absolute 0.91 (L) 1.20 - 4.80 x10*3/uL Monocytes Absolute 0.65 0.10 - 1.00 x10*3/uL Eosinophils Absolute 0.04 0.00 - 0.70 x10*3/uL Basophils Absolute 0.05 0.00 - 0.10 x10*3/uL Comprehensive Metabolic Panel Result Value Ref Range Glucose 102 (H) 74 - 99 mg/dL Sodium 137 136 - 145 mmol/L Potassium 5.0 3.5 - 5.3 mmol/L Chloride 105 98 - 107 mmol/L Bicarbonate 21 21 - 32 mmol/L Anion Gap 16 10 - 20 mmol/L Urea Nitrogen 12 6 - 23 mg/dL Creatinine 1.02 0.50 - 1.05 mg/dL eGFR 72 >60 mL/min/1.73m*2 Calcium 8.2 (L) 8.6 - 10.6 mg/dL Albumin 2.9 (L) 3.4 - 5.0 g/dL Alkaline Phosphatase 243 (H) 33 - 110 U/L Total Protein 5.5 (L) 6.4 - 8.2 g/dL AST 15 9 - 39 U/L Bilirubin, Total 1.0 0.0 - 1.2 mg/dL ALT 16 7 - 45 U/L Magnesium Result Value Ref Range Magnesium 1.87 1.60 - 2.40 mg/dL This patient has a central line Reason for the central line remaining today? 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 ::Unclear history of VTEs, could not rule out as US was limited by pain ::Troponin 17, no concern for ischemia ::CTA chest without PE ::V/Q with heterogeneity in both lungs, intermediate probability for pulm embolism. Chronic PE vs multifocal airway disease not entirely excluded :: 06/08: Mulvane repositioned in optical laboratory mechanic overnight, Mulvane again out of place this morning, cardiology repositioned Mulvane at bedside, now in appropriate location :: dsDNA, RF, anca panel, CCP, SSA/SSB, scl-70, HIV, complement C3 and C4 all WNL :: positive NICOLE and anti-centromere antibody :: trialed on Remodulin 06/11, had side effects and switched back to epo :: S/p RHC with swan, LHC with Heart Failure team 06/06, swan removed 06/13 :: IR placed Doss port 06/13 - extended myositis panel pending - Rheumatology onboard - Pulmonary hypertension team onboard - On epo 6 ng/kg/min, plan to switch to remodulin again on 06/14 PULMONARY #Pulmonary arterial hypertension #Productive cough/wheezing (improved), likely 2/2 Rt HF ::No overt sings of PNA on CXR ::Influenza A/B and Covid negative ::Utox positive for opiate, HOWEVER, patient received 4 mg of IV morphine (06/03 at 2200) less than 48 hours before utox collected (06/05 at 1154) ::Sputum cx: negative PLAN: - working up as above - Strict I/O and daily weights - may require lung transplant RENAL/ #MAXIMO on CKD, (resolved) ::Likely cardiorenal PLAN: - Avoiding nephrotoxins - Fluid resuscitation prior to contrast GI #Elevated liver enzymes, cholestatic pattern, likely cardiohepatic ::AST 17, ALT 13, alk phos 281, R-factor 0.1 ::mild RUQ pain, Lazar's sign negative on exam ::Positive hepatitis C antibody, negative RNA - RUQ with hepatomegaly, splenomeagly - Improving with PAH treatment #N/V - Zofran prn - Instructed patient to take the Bactrim with food ID #LLE cellulitis #C/f URI PLAN: -Sent blood, sputum, and wound cultures -Resp viral panel negative -Abx coverage initially with IV Vanc/Zosyn -Wound culture w/ susceptibilities: MSSA and Enterobacter cloacae complex (both susceptible to Bactrim) -06/08: Abx switched to Bactrim, plan for 7 day course (EOT 06/14) -Consult placed to wound care Hematology #Thrombocytopenia - Plt 91 today, 230s on admission, baseline appears to be between 120-170s - 4Ts score 5, stopped subcutaneous heparin, PF4 sent - Bactrim could be causing bone marrow suppression, but wouldn't expect isolated thrombocytopenia - If worsening, will plan to consult hematology MSK/DERM #CREST/IcSSC PLAN: -autoimmune/connective tissue workup as above -rheum onboard: no indication for immunosuppression therapy, symptomatic tx as needed -added PPI F: PRN E: PRN N: Regular A: PIVs GI ppx: Protonix DVT ppx: held subcutaneous heparin given c/f HIT Code status: Full (confirmed on admission) NOK: Rocio Sánchez [phone] Associated attestation - Rhea Henning MD - 06/16/2023 12:08 PM EDT Brief Attending Summary: 57-year-old with newly diagnosed crest (sclerodactyly, Raynaud's, telangiectasia, 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 She has been initiated on epoprostenol infusion and have been uptitrated to 6 ng/kg. Further up titration is hindered by side effects of nausea. On dobutamine for inotrope support up to 5 mcg/kg. No weaned off and started on digoxin with a persistent improvement of her CI to 2.6. monitor I/O--adequate . plan to switch to remodulin today,. Mild thrombocytopenia improving. Single lumen doss placed Physical Therapy Therapy Communication Note Patient Name: Jayna Smith Today's Date: 06/14/2023 Discipline: Physical Therapy Missed Visit Reason: Missed Visit Reason: Other (Comment) (Attempted Pt, however transport taking Pt off the floor to procedure. Will attempt as able) Missed Time: Attempt Comment: Jayna Smith is a 37 y.o. female on day 8 of admission presenting with Pulmonary hypertension (CMS/HCC). Hospital course: Jayna Smtih is a 37 y.o. female PMH T2DM, HTN, Raynaud's, CKD, who is presenting as a transfer from [facility] for severe pulmonary hypertension and tricuspid regurgitation. Pt initially presented on 06/02 for left leg pain and swelling and concern for cellulitis 2/2 to a chronic anterior left leg wound and recent surgical debridement. She was admitted to [facility] on 06/03 for IV antibiotic management. Noted to have a new murmur and cardiology was consulted as a TTE on 04/08/23 revealed a dilated RA and elevated RVSP with severe TR (full report below). She was recommended to follow-up with cardiology outpatient, however does not appear that this occurred. Repeat TTE on 06/05 revealed similar findings and she was transferred to [facility] for further evaluation and management of right heart failure/pulm htn. There has been concern for underlying autoimmune or connective tissue disease in the past given her hand deformities and history of Raynaud's. She recently had a positive hepatitis C antibody. Pulmonary hypertension specialist, Dr Schumacher, Advanced Heart Failure team, and Rheumatology were consulted. Patient received autoimmune workup which was significant for positive NICOLE and anti-centromere antibodies. 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 Rheumatology confirmed no current indication for immunosuppression therapy. Patient started on PPI for GERD, a common associated symptom of CREST. Patient underwent left and right heart cath with Mulvane catheter placement. Additionally patient with CT PE negative for ILD or acute PE. V/Q scan not concerning for CTEPH. 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 Patient started on inhaled Nitric Oxide and dobutamine drip while titrating Veletri. Patient weaned off of nitric oxide and dobutamine by 06/10. Patient's LLE cellulitis initially treated with IV Vanc and Zosyn. Wound care consulted. Wound cultures came back positive for MSSA and Enterobacter cloacae complex. Antibiotics transitioned to PO Bactrim as both were shown to be susceptible on cultures. Patient with MAXIMO on CKD, however renal function improved as patient began to auto diurese after initiation of PAH treatment. Mulvane in place, Veletri dose stable since 06/10, further uptitration likely limited by patient symptoms. Off dobutamine since 06/10, and digoxin started for inotropy. On 06/11, trialed on Remodulin, developed side effects, and switched back to Epo. per Dr. Schumacher may have been due to flushed line and bolusing of drug. Plan to remove swan and have doss placed with IR on 06/13. Course c/b chronic LLE wound, wound care following, on Bactrim. Plan to continue to optimize pHTN regimen, discharge to follow up with Pulmonology and Rheumatology as outpatient TO DO [ ] fu pulm HTN recommendations [ ] outpatient fu with Dr. Schumacher, rheumatology Subjective NAEON Pending doss placement with IR today Objective Physical Exam Constitutional: General: She is not in acute distress. Appearance: Normal appearance. She is normal weight. She is not ill-appearing or toxic-appearing. HENT: Head: Normocephalic and atraumatic. Eyes: Pupils: Pupils are equal, round, and reactive to light. Cardiovascular: Rate and Rhythm: Normal rate. Heart sounds: Murmur heard. Comments: Significant mid to end systolic murmur noted Pulmonary: Effort: Pulmonary effort is normal. No respiratory distress. Breath sounds: Normal breath sounds. No wheezing or rales. Abdominal: General: Abdomen is flat. There is no distension. Palpations: Abdomen is soft. Tenderness: There is no abdominal tenderness. There is no guarding. Skin: General: Skin is warm and dry. Capillary Refill: Capillary refill takes less than 2 seconds. Comments: Significant contraction of index finger on R hand with dry ulceration on the tip LLE edematous, wrapped in kerlix, erythematous Neurological: General: No focal deficit present. Mental Status: She is alert and oriented to person, place, and time. Last Recorded Vitals Blood pressure (!) 127/95, pulse 69, temperature 36.5 C (97.7 F), resp. rate 13, height 1.727 m (5' 8), weight 86.1 kg (189 lb 13.1 oz), last menstrual period 06/06/2023, SpO2 93 %. Intake/Output last 3 Shifts: I/O last 3 completed shifts: In: 1466.7 (17 mL/kg) [P.O.:1420; I.V.:46.7 (0.5 mL/kg)] Out: 1200 (13.9 mL/kg) [Urine:1200 (0.4 mL/kg/hr)] Weight: 86.1 kg Relevant Results Scheduled medications digoxin, 125 mcg, oral, Daily heparin (porcine), 5,000 Units, subcutaneous, q8h insulin lispro, 0-5 Units, subcutaneous, TID with meals melatonin, 6 mg, oral, Daily pantoprazole, 40 mg, oral, Daily before breakfast sulfamethoxazole-trimethoprim, 160 mg, oral, q12h LOUISE trimethobenzamide, 200 mg, intramuscular, Once Continuous medications epoprostenol (Veletri) 2,000 mcg in sodium chloride 0.9% 100 mL (20 mcg/mL) bag, 6 ng/kg/min (Order-Specific), Last Rate: 6 ng/kg/min (06/13/23 1800) PRN medications PRN medications: acetaminophen OR acetaminophen OR acetaminophen, dextrose, dextrose, glucagon, glucagon, HYDROmorphone, ondansetron, oxyCODONE, oxyCODONE, oxygen Results for orders placed or performed during the hospital encounter of 06/06/23 (from the past 24 hour(s)) POCT GLUCOSE Result Value Ref Range POCT Glucose 74 74 - 99 mg/dL POCT GLUCOSE Result Value Ref Range POCT Glucose 104 (H) 74 - 99 mg/dL POCT GLUCOSE Result Value Ref Range POCT Glucose 163 (H) 74 - 99 mg/dL POCT GLUCOSE Result Value Ref Range POCT Glucose 92 74 - 99 mg/dL CBC and Auto Differential Result Value Ref Range WBC 4.0 (L) 4.4 - 11.3 x10*3/uL nRBC 0.0 0.0 - 0.0 /100 WBCs RBC 4.49 4.00 - 5.20 x10*6/uL Hemoglobin 12.6 12.0 - 16.0 g/dL Hematocrit 37.5 36.0 - 46.0 % MCV 84 80 - 100 fL MCH 28.1 26.0 - 34.0 pg MCHC 33.6 32.0 - 36.0 g/dL RDW 16.1 (H) 11.5 - 14.5 % Platelets 91 (L) 150 - 450 x10*3/uL Neutrophils % 66.7 40.0 - 80.0 % Immature Granulocytes %, Automated 0.5 0.0 - 0.9 % Lymphocytes % 19.2 13.0 - 44.0 % Monocytes % 11.7 2.0 - 10.0 % Eosinophils % 1.2 0.0 - 6.0 % Basophils % 0.7 0.0 - 2.0 % Neutrophils Absolute 2.68 1.20 - 7.70 x10*3/uL Immature Granulocytes Absolute, Automated 0.02 0.00 - 0.70 x10*3/uL Lymphocytes Absolute 0.77 (L) 1.20 - 4.80 x10*3/uL Monocytes Absolute 0.47 0.10 - 1.00 x10*3/uL Eosinophils Absolute 0.05 0.00 - 0.70 x10*3/uL Basophils Absolute 0.03 0.00 - 0.10 x10*3/uL Comprehensive Metabolic Panel Result Value Ref Range Glucose 119 (H) 74 - 99 mg/dL Sodium 135 (L) 136 - 145 mmol/L Potassium 4.7 3.5 - 5.3 mmol/L Chloride 102 98 - 107 mmol/L Bicarbonate 24 21 - 32 mmol/L Anion Gap 14 10 - 20 mmol/L Urea Nitrogen 10 6 - 23 mg/dL Creatinine 1.07 (H) 0.50 - 1.05 mg/dL eGFR 68 >60 mL/min/1.73m*2 Calcium 8.3 (L) 8.6 - 10.6 mg/dL Albumin 2.9 (L) 3.4 - 5.0 g/dL Alkaline Phosphatase 247 (H) 33 - 110 U/L Total Protein 5.4 (L) 6.4 - 8.2 g/dL AST 18 9 - 39 U/L Bilirubin, Total 0.9 0.0 - 1.2 mg/dL ALT 20 7 - 45 U/L Magnesium Result Value Ref Range Magnesium 1.65 1.60 - 2.40 mg/dL Assessment/Plan Principal Problem: Pulmonary hypertension (CMS/HCC) 37 yo female PMH T2DM, HTN, Raynaud's, CKD, chronic L leg wound with recent surgical debridement who presented to the hospital with concerns for cellulitis and is in the MICU for further management a new diagnosis of pulmonary hypertension 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 06/13 Updates: - c/w digioxin - Mulvane removed and doss catheter placed with IR, Epoprostenol 6 ng/kg/min now running via doss - Plt 91 today, 230s on admission, baseline appears to be between 120-170s 4Ts score 5, stopped subcutaneous heparin, PF4 sent Bactrim could be causing bone marrow suppression, but wouldn't expect isolated thrombocytopenia If worsening, will plan to consult hematology - Stable for floor transfer NEURO #YANCY CARDIOVASCULAR #Pulmonary arterial hypertension (Group 1), likely 2/2 CREST syndrome #Decompensated RV failure and cardiogenic shock #Severe tricuspid regurgitation ::Echo from 04/08 showing RVSP 117mm Hg, R heart enlargement with D-shaped septum in systole and diastole ::Echo on 06/04 with similar findings, PA systolic of 97mmHg, TRV 4.5 ::Pt with no history or significant risk factors for heart disease or underlying lung pathology. ::Unclear history of VTEs, could not rule out as US was limited by pain ::Troponin 17, no concern for ischemia ::CTA chest without PE ::V/Q with heterogeneity in both lungs, intermediate probability for pulm embolism. Chronic PE vs multifocal airway disease not entirely excluded :: 06/08: Mulvane repositioned in optical laboratory mechanic overnight, Mulvane again out of place this morning, cardiology repositioned Mulvane at bedside, now in appropriate location :: dsDNA, RF, anca panel, CCP, SSA/SSB, scl-70, HIV, complement C3 and C4 all WNL :: positive NICOLE and anti-centromere antibody :: trialed on Remodulin 06/11, had side effects and switched back to epo - S/p RHC with katherine, LHC with Heart Failure team 06/06 - extended myositis panel pending - Rheumatology onboard - Pulmonary hypertension team onboard - On epo 6 ng/kg/min - IR consult for Doss port, placed on 06/13 PULMONARY #Pulmonary arterial hypertension #Productive cough/wheezing (improved), likely 2/2 Rt HF ::No overt sings of PNA on CXR ::Influenza A/B and Covid negative ::Utox positive for opiate, HOWEVER, patient received 4 mg of IV morphine (06/03 at 2200) less than 48 hours before utox collected (06/05 at 1154) ::Sputum cx: negative PLAN: - working up as above - Strict I/O and daily weights - may require lung transplant RENAL/ #MAXIMO on CKD, (resolved) ::Likely cardiorenal PLAN: - Avoiding nephrotoxins - Fluid resuscitation prior to contrast GI #Elevated liver enzymes, cholestatic pattern, likely cardiohepatic ::AST 17, ALT 13, alk phos 281, R-factor 0.1 ::mild RUQ pain, Lazar's sign negative on exam ::Positive hepatitis C antibody, negative RNA - RUQ with hepatomegaly, splenomeagly - Improving with PAH treatment #N/V - Zofran prn - Instructed patient to take the Bactrim with food ID #LLE cellulitis #C/f URI PLAN: -Sent blood, sputum, and wound cultures -Resp viral panel negative -Abx coverage initially with IV Vanc/Zosyn -Wound culture w/ susceptibilities: MSSA and Enterobacter cloacae complex (both susceptible to Bactrim) -06/08: Abx switched to Bactrim -Consult placed to wound care Hematology #Thrombocytopenia - Plt 91 today, 230s on admission, baseline appears to be between 120-170s - 4Ts score 5, stopped subcutaneous heparin, PF4 sent - Bactrim could be causing bone marrow suppression, but wouldn't expect isolated thrombocytopenia - If worsening, will plan to consult hematology MSK/DERM #CREST/IcSSC PLAN: -autoimmune/connective tissue workup as above -rheum onboard: no indication for immunosuppression therapy, symptomatic tx as needed -added PPI F: PRN E: PRN N: NPO pending procedure, otherwise regular A: PIVs GI ppx: Protonix DVT ppx: SQH - Held for Doss placement Code status: Full (confirmed on admission) NOK: Rocio Sánchez [phone] Associated attestation - Milady, Rhea Jon MD - 06/16/2023 12:07 PM EDT Brief Attending Summary: 57-year-old with newly diagnosed crest (sclerodactyly, Raynaud's, telangiectasia, 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 She has been initiated on epoprostenol infusion and have been uptitrated to 6 ng/kg. Further up titration is hindered by side effects of nausea. On dobutamine for inotrope support up to 5 mcg/kg. No weaned off and started on digoxin with a persistent improvement of her CI to 2.6. monitor I/O--adequate . plan to switch to remodulin,. Physical Therapy Physical Therapy Evaluation Patient Name: Jayna Smith Today's Date: 06/13/2023 Time Calculation Start Time: 0959 Stop Time: 1016 Time Calculation (min): 17 min Assessment/Plan PT Assessment PT Assessment Results: Impaired balance, Decreased mobility, Pain Rehab Prognosis: Good Barriers to Discharge: medical acuity Evaluation/Treatment Tolerance: Patient tolerated treatment well End of Session Communication: Bedside nurse Assessment Comment: Patient mobilizing slightly below baseline at CGA-min assist level. Anticipate with continued therapy while in hospitalm, will progress to modified independent level. Recommend low intensity therapy with caregiver supervision for mobility as needed at discharge. End of Session Patient Position: Up in chair, Alarm off, not on at start of session (RN at bedside) IP OR SWING BED PT PLAN Inpatient or Swing Bed: Inpatient PT Plan Treatment/Interventions: Bed mobility, Gait training, Transfer training, Stair training, Balance training, Strengthening, Endurance training, Range of motion, Home exercise program, Therapeutic activity, Therapeutic exercise PT Plan: Skilled PT PT Frequency: 3 times per week PT Discharge Recommendations: Low intensity level of continued care PT Recommended Transfer Status: Assist x1, Contact guard PT - OK to Discharge: Yes Subjective General Visit Information: Reason for Referral: further management a new diagnosis of pulmonary hypertension 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 Past Medical History Relevant to Rehab: 2DM, HTN, Raynaud's, CKD, chronic L leg wound with recent surgical debridement Co-Treatment: OT Co-Treatment Reason: to optimize patient safety with functional mobility Prior to Session Communication: Bedside nurse Patient Position Received: Bed, 3 rail up, Alarm off, not on at start of session Family/Caregiver Present: No General Comment: Patient in bed upon arrival. 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[employer]) Prior Function Comments: drives, no falls Precautions: Precautions Medical Precautions: Cardiac precautions, Fall precautions, Oxygen therapy device and L/min Vital Signs: Vital Signs Heart Rate: (pre 69 post 66) Heart Rate Source: Monitor Resp: (pre 20 post 19) SpO2: (post 92) BP: (pre 118/89 (96) post 115/90 (99)) BP Method: Automatic Patient Position: (pre lying post sitting) Objective Lines/Tubes/Drains: Introducer 06/07/23 Internal jugular Right (Active) Number of days: 5 Pulmonary Artery Catheter Internal jugular (Active) Number of days: 6 Continuous Medications/Drips: epoprostenol (Veletri) 2,000 mcg in sodium chloride 0.9% 100 mL (20 mcg/mL) bag, 6 ng/kg/min (Order-Specific), Last Rate: 6 ng/kg/min (06/13/23 1000) Oxygen:4L via NC Cognition: Cognition Overall Cognitive Status: Within Functional Limits Orientation Level: Oriented X4 Extremity/Trunk Assessments: Strength: Strength Comments: BLE strength WFL General Assessments: Strength Strength Comments: BUE strength WFL Activity Tolerance Endurance: Tolerates 10 - 20 min exercise with multiple rests Static Sitting Balance Static Sitting-Balance Support: Feet supported Static Sitting-Level of Assistance: Distant supervision Static Standing Balance Static Standing-Balance Support: No upper extremity supported Static Standing-Level of Assistance: Contact guard Functional Assessments: Bed Mobility Bed Mobility: Yes Bed Mobility 1 Bed Mobility 1: Supine to sitting Level of Assistance 1: Close supervision Transfers Transfer: Yes Transfer 1 Transfer From 1: Sit to, Stand to Transfer to 1: Sit, Stand Technique 1: Stand to sit, Sit to stand Transfer Level of Assistance 1: Contact guard Ambulation/Gait Training Ambulation/Gait Training Performed: Yes Ambulation/Gait Training 1 Surface 1: Level tile Device 1: No device Assistance 1: Minimum assistance Quality of Gait 1: Decreased step length, Wide base of support (decreased cadenece, unsteady with a couple therapist corrected episodes of instability) Comments/Distance (ft) 1: 60 (vitals stable, pt without symptoms) Outcome Measures: [facility] Basic Mobility Turning from your back to your side while in a flat bed without using bedrails: A little Moving from lying on your back to sitting on the side of a flat bed without using bedrails: A little Moving to and from bed to chair (including a wheelchair): A little Standing up from a chair using your arms (e.g. wheelchair or bedside chair): A little To walk in hospital room: A little Climbing 3-5 steps with railing: A little Basic Mobility - Total Score: 18 FSS-ICU Ambulation: Walks >/ or equal to 50 feet with any assistance x1 Rolling: Minimal assistance (performs 75% or more of task) Sitting: Supervision or set-up only Transfer [id number]: Minimal assistance (performs 75% or more of task) Transfer [id number]: Minimal assistance (performs 75% or more of task) Total Score: 19 Encounter Problems Encounter Problems (Active) PT Problem Patient will ambulate 300 ft with LRAD and modified independence. Start: 06/13/23 Expected End: 06/27/23 Patient will transfer bed to/from chair with LRAD and modified independence. Start: 06/13/23 Expected End: 06/27/23 Patient will score >24 on the Tinetti test indicating low falls risk for homegoing. Start: 06/13/23 Expected End: 06/27/23 Patient will negotiate 13 LENIN with LRAD and modified independence. Start: 06/13/23 Expected End: 06/27/23 Pain - Adult Education Documentation Body Mechanics, taught by Marianna Pratt PT at 06/13/2023 10:46 AM. Learner: Patient Readiness: Acceptance Method: Explanation Response: Verbalizes Understanding Mobility Training, taught by Marianna Pratt PT at 06/13/2023 10:46 AM. Learner: Patient Readiness: Acceptance Method: Explanation Response: Verbalizes Understanding Education Comments No comments found. 06/13/23 at 10:48 AM MARIANNA PRATT PT Rehab Office: [phone] Occupational Therapy Evaluation Patient Name: Jayna Smith Today's Date: 06/13/2023 Time Calculation Start Time: 958 Stop Time: 1016 Time Calculation (min): 17 min Assessment IP OT Assessment OT Assessment: Pt appears close to functional baseline from OT standpoint. Able to manage self-care and functional mobility tasks. Barriers to Discharge: None Evaluation/Treatment Tolerance: Patient tolerated treatment well Medical Staff Made Aware: Yes End of Session Communication: Bedside nurse End of Session Patient Position: Up in chair, Alarm off, not on at start of session Plan: No Skilled OT: No acute OT goals identified OT Frequency: OT eval only OT Discharge Recommendations: No OT needed after discharge OT Recommended Transfer Status: Stand by assist OT - OK to Discharge: Yes Subjective Current Problem: 1. Pulmonary hypertension (CMS/HCC) Case Request Animal Caretaker: Right Heart Cath Case Request Animal Caretaker: Right Heart Cath Cardiac Catheterization Procedure Cardiac Catheterization Procedure Case Request Animal Caretaker: Mulvane Insertion Case Request Animal Caretaker: Mulvane Insertion Cardiac Catheterization Procedure Cardiac Catheterization Procedure CANCELED: Case Request Animal Caretaker: Left Heart Cath CANCELED: Case Request Animal Caretaker: Left Heart Cath CANCELED: Cardiac Catheterization Procedure CANCELED: Cardiac Catheterization Procedure 2. Primary pulmonary hypertension (CMS/HCC) Cardiac Catheterization Procedure Cardiac Catheterization Procedure General: Reason for Referral: 37 y/o female admitted for further evaluation and management of right heart failure/pulm htn. Past Medical History Relevant to Rehab: PMH T2DM, HTN, Raynaud's, CKD Co-Treatment: PT Co-Treatment Reason: To maximize pt safety and mobility Prior to Session Communication: Bedside nurse Patient Position Received: Bed, 3 rail up, Alarm off, not on at start of session General Comment: Pt is pleasant and cooperative. Cellulitis observed LLE. She reports tight/stiffness LLE. (Veletri: 6) Precautions: Medical Precautions: Cardiac precautions, Fall precautions, Oxygen therapy device and L/min (4L O2) Vital Signs: Heart Rate: 69 (66) Resp: 20 (20) SpO2: 92 % BP: 118/89 (115/90) MAP (mmHg): 96 (99) BP Location: Left arm BP Method: Automatic Pain: Pain Assessment Pain Assessment: Diego-Bradford FACES Diego-Bradford FACES Pain Rating: Hurts little bit Pain Type: Chronic pain Pain Location: Leg Pain Orientation: Distal, Left Lines/Tubes/Drains: Introducer 06/07/23 Internal jugular Right (Active) Number of days: 5 Pulmonary Artery Catheter Internal jugular (Active) Number of days: 6 Objective Cognition: Madden Agitation Sedation Scale Madden Agitation Sedation Scale (RASS): Alert and calm Home Living: Type of Home: Condo Lives With: Spouse, Dependent children Home Adaptive Equipment: None Home Layout: Two level, Bed/bath upstairs Home Access: Level entry Prior Function: Level of [place]: Independent with ADLs and functional transfers, Independent with homemaking with ambulation Receives Help From: Family ADL Assistance: Independent Homemaking Assistance: Independent Ambulatory Assistance: Independent 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 Function 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: (+)drives, denies falls IADL History: ADL: Grooming Assistance: Modified independent (Device) Grooming Deficit: Setup Bathing Assistance: Stand by UE Dressing Assistance: Independent LE Dressing Assistance: Independent Toileting Assistance with Device: Stand by Activity Tolerance: Endurance: Decreased tolerance for upright activites, Endurance does not limit participation in activity Balance: Static Sitting Balance Static Sitting-Level of Assistance: Independent Static Standing Balance Static Standing-Level of Assistance: Close supervision Bed Mobility/Transfers: Bed Mobility Bed Mobility: Yes Bed Mobility 1 Bed Mobility 1: Supine to sitting Level of Assistance 1: Close supervision Functional Mobility Functional Mobility Performed: Yes Functional Mobility 1 Device 1: No device Assistance 1: Close supervision, Contact guard Comments 1: Pt ambulated through room and hallway >50'. Occasional CGA d/t instances of mild unsteadiness that she attributes to LLE tightness. and Transfers Transfer: Yes Transfer 1 Transfer From 1: Sit to Transfer to 1: Stand Technique 1: Sit to stand, Stand to sit Transfer Level of Assistance 1: Distant supervision IADL's: Vision: and Vision - Complex Assessment Ocular Range of Motion: Within Functional Limits Sensation: Light Touch: No apparent deficits Strength: Strength Comments: BUE strength WFL Perception: Inattention/Neglect: Appears intact Coordination: Hand Function: Hand Function Gross Grasp: Functional Coordination: Functional Extremities: , , , and Outcome Measures: [facility] Daily Activity Putting on and taking off regular lower body clothing: None Bathing (including washing, rinsing, drying): None Putting on and taking off regular upper body clothing: None Toileting, which includes using toilet, bedpan or urinal: None Taking care of personal grooming such as brushing teeth: None Eating Meals: None Daily Activity - Total Score: 24 Confusion Assessment Method-ICU (CAM-ICU) Feature 3: Altered Level of Consciousness: Negative , Madden Agitation Sedation Scale Madden Agitation Sedation Scale (RASS): Alert and calm Education Documentation Body Mechanics, taught by Rebeca Thrasher OT at 06/13/2023 10:45 AM. Learner: Patient Readiness: Acceptance Method: Explanation Response: Verbalizes Understanding ADL Training, taught by Rebeca Thrasher OT at 06/13/2023 10:45 AM. Learner: Patient Readiness: Acceptance Method: Explanation Response: Verbalizes Understanding Education Comments No comments found. 06/13/23 at 10:46 AM Rebeca Thrasher OT Rehab Office: [phone] Jayna Smith is a 37 y.o. female on day 7 of admission presenting with Pulmonary hypertension (CMS/HCC). Hospital course: Jayna Smith is a 37 y.o. female PMH T2DM, HTN, Raynaud's, CKD, who is presenting as a transfer from [facility] for severe pulmonary hypertension and tricuspid regurgitation. Pt initially presented on 06/02 for left leg pain and swelling and concern for cellulitis 2/2 to a chronic anterior left leg wound and recent surgical debridement. She was admitted to [facility] on 06/03 for IV antibiotic management. Noted to have a new murmur and cardiology was consulted as a TTE on 04/08/23 revealed a dilated RA and elevated RVSP with severe TR (full report below). She was recommended to follow-up with cardiology outpatient, however does not appear that this occurred. Repeat TTE on 06/05 revealed similar findings and she was transferred to [facility] for further evaluation and management of right heart failure/pulm htn. There has been concern for underlying autoimmune or connective tissue disease in the past given her hand deformities and history of Raynaud's. She recently had a positive hepatitis C antibody. Pulmonary hypertension specialist, Dr Schumacher, Advanced Heart Failure team, and Rheumatology were consulted. Patient received autoimmune workup which was significant for positive NICOLE and anti-centromere antibodies. 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 Rheumatology confirmed no current indication for immunosuppression therapy. Patient started on PPI for GERD, a common associated symptom of CREST. Patient underwent left and right heart cath with Mulvane catheter placement. Additionally patient with CT PE negative for ILD or acute PE. V/Q scan not concerning for CTEPH. 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 Patient started on inhaled Nitric Oxide and dobutamine drip while titrating Veletri. Patient weaned off of nitric oxide and dobutamine by 06/10. Patient's LLE cellulitis initially treated with IV Vanc and Zosyn. Wound care consulted. Wound cultures came back positive for MSSA and Enterobacter cloacae complex. Antibiotics transitioned to PO Bactrim as both were shown to be susceptible on cultures. Patient with MAXIMO on CKD, however renal function improved as patient began to auto diurese after initiation of PAH treatment. Mulvane in place, Veletri dose stable since 06/10, further uptitration likely limited by patient symptoms. Off dobutamine since 06/10, and digoxin started for inotropy. On 06/11, trialed on Remodulin, developed side effects, and switched back to Epo. per Dr. Schumacher may have been due to flushed line and bolusing of drug. Course c/b chronic LLE wound, wound care following, on Bactrim. Plan to continue to optimize pHTN regimen, discharge to follow up with Pulmonology and Rheumatology as outpatient TO DO [ ] IR to place a Doss on 4 AM, NPO @HI [ ] fu Dr. Schumacher recs Subjective -Yesterday, started on Remodulin, 1 minute later, started having nausea/vomiting, dizziness, facial flushing, vision changes. Remodulin was stopped and started back on Veletri 6mg. -Mulvane overnight: CO 5.26, CI 2.63, PA 86/20, mPAP 50, SvO2 66.9, no diuresis or additional inotropy added. On Digoxin currently. -This AM, sleeping, no complaints. Denies CP, dyspnea, flushing, n/v. Objective Physical Exam Constitutional: General: She is not in acute distress. Appearance: Normal appearance. She is normal weight. She is not ill-appearing or toxic-appearing. HENT: Head: Normocephalic and atraumatic. Eyes: Pupils: Pupils are equal, round, and reactive to light. Cardiovascular: Rate and Rhythm: Normal rate. Heart sounds: Murmur heard. Comments: Significant mid to end systolic murmur noted Pulmonary: Effort: Pulmonary effort is normal. No respiratory distress. Breath sounds: Normal breath sounds. No wheezing or rales. Abdominal: General: Abdomen is flat. There is no distension. Palpations: Abdomen is soft. Tenderness: There is no abdominal tenderness. There is no guarding. Skin: General: Skin is warm and dry. Capillary Refill: Capillary refill takes less than 2 seconds. Comments: Significant contraction of index finger on R hand with dry ulceration on the tip Neurological: General: No focal deficit present. Mental Status: She is alert and oriented to person, place, and time. Last Recorded Vitals Blood pressure 108/83, pulse 68, temperature 36.2 C (97.2 F), temperature source Temporal, resp. rate 21, height 1.727 m (5' 8), weight 86.1 kg (189 lb 12.8 oz), last menstrual period 06/06/2023, SpO2 (!) 87 %. Intake/Output last 3 Shifts: I/O last 3 completed shifts: In: 991.1 (11.5 mL/kg) [P.O.:940; I.V.:51.1 (0.6 mL/kg)] Out: 1150 (13.4 mL/kg) [Urine:1150 (0.4 mL/kg/hr)] Weight: 86.1 kg Relevant Results Scheduled medications digoxin, 125 mcg, oral, Daily heparin (porcine), 5,000 Units, subcutaneous, q8h insulin lispro, 0-5 Units, subcutaneous, TID with meals melatonin, 6 mg, oral, Daily pantoprazole, 40 mg, oral, Daily before breakfast sulfamethoxazole-trimethoprim, 160 mg, oral, q12h LOUISE trimethobenzamide, 200 mg, intramuscular, Once Continuous medications epoprostenol (Veletri) 2,000 mcg in sodium chloride 0.9% 100 mL (20 mcg/mL) bag, 6 ng/kg/min (Order-Specific) PRN medications PRN medications: acetaminophen OR acetaminophen OR acetaminophen, dextrose, dextrose, glucagon, glucagon, HYDROmorphone, ondansetron, oxyCODONE, oxyCODONE, oxygen Results for orders placed or performed during the hospital encounter of 06/06/23 (from the past 24 hour(s)) POCT GLUCOSE Result Value Ref Range POCT Glucose 118 (H) 74 - 99 mg/dL BLOOD GAS MIXED VENOUS FULL PANEL Result Value Ref Range POCT pH, Mixed 7.40 7.33 - 7.43 pH POCT pCO2, Mixed 39 (L) 41 - 51 mm Hg POCT pO2, Mixed 44 35 - 45 mm Hg POCT SO2, Mixed 68 45 - 75 % POCT Oxy Hemoglobin, Mixed 65.7 45.0 - 75.0 % POCT Hematocrit Calculated, Mixed 41.0 36.0 - 46.0 % POCT Sodium, Mixed 132 (L) 136 - 145 mmol/L POCT Potassium, Mixed 4.6 3.5 - 5.3 mmol/L POCT Chloride, Mixed 103 98 - 107 mmol/L POCT Ionized Calcium, Mixed 1.16 1.10 - 1.33 mmol/L POCT Glucose, Mixed 104 (H) 74 - 99 mg/dL POCT Lactate, Mixed 1.6 0.4 - 2.0 mmol/L POCT Base Excess, Mixed -0.5 -2.0 - 3.0 mmol/L POCT HCO3 Calculated, Mixed 24.2 22.0 - 26.0 mmol/L POCT Hemoglobin, Mixed 13.6 12.0 - 16.0 g/dL POCT Anion Gap, Mixed 9 (L) 10 - 25 mmo/L Patient Temperature 37.0 degrees Celsius FiO2 28 % POCT GLUCOSE Result Value Ref Range POCT Glucose 156 (H) 74 - 99 mg/dL POCT GLUCOSE Result Value Ref Range POCT Glucose 86 74 - 99 mg/dL BLOOD GAS MIXED VENOUS FULL PANEL Result Value Ref Range POCT pH, Mixed 7.36 7.33 - 7.43 pH POCT pCO2, Mixed 44 41 - 51 mm Hg POCT pO2, Mixed 43 35 - 45 mm Hg POCT SO2, Mixed 67 45 - 75 % POCT Oxy Hemoglobin, Mixed 65.4 45.0 - 75.0 % POCT Hematocrit Calculated, Mixed 40.0 36.0 - 46.0 % POCT Sodium, Mixed 132 (L) 136 - 145 mmol/L POCT Potassium, Mixed 4.9 3.5 - 5.3 mmol/L POCT Chloride, Mixed 104 98 - 107 mmol/L POCT Ionized Calcium, Mixed 1.15 1.10 - 1.33 mmol/L POCT Glucose, Mixed 105 (H) 74 - 99 mg/dL POCT Lactate, Mixed 1.0 0.4 - 2.0 mmol/L POCT Base Excess, Mixed -0.8 -2.0 - 3.0 mmol/L POCT HCO3 Calculated, Mixed 24.9 22.0 - 26.0 mmol/L POCT Hemoglobin, Mixed 13.3 12.0 - 16.0 g/dL POCT Anion Gap, Mixed 8 (L) 10 - 25 mmo/L Patient Temperature 37.0 degrees Celsius FiO2 36 % CBC and Auto Differential Result Value Ref Range WBC 3.5 (L) 4.4 - 11.3 x10*3/uL nRBC 0.0 0.0 - 0.0 /100 WBCs RBC 4.76 4.00 - 5.20 x10*6/uL Hemoglobin 13.2 12.0 - 16.0 g/dL Hematocrit 42.0 36.0 - 46.0 % MCV 88 80 - 100 fL MCH 27.7 26.0 - 34.0 pg MCHC 31.4 (L) 32.0 - 36.0 g/dL RDW 16.4 (H) 11.5 - 14.5 % Platelets 103 (L) 150 - 450 x10*3/uL Neutrophils % 59.8 40.0 - 80.0 % Immature Granulocytes %, Automated 0.6 0.0 - 0.9 % Lymphocytes % 23.6 13.0 - 44.0 % Monocytes % 13.1 2.0 - 10.0 % Eosinophils % 2.0 0.0 - 6.0 % Basophils % 0.9 0.0 - 2.0 % Neutrophils Absolute 2.11 1.20 - 7.70 x10*3/uL Immature Granulocytes Absolute, Automated 0.02 0.00 - 0.70 x10*3/uL Lymphocytes Absolute 0.83 (L) 1.20 - 4.80 x10*3/uL Monocytes Absolute 0.46 0.10 - 1.00 x10*3/uL Eosinophils Absolute 0.07 0.00 - 0.70 x10*3/uL Basophils Absolute 0.03 0.00 - 0.10 x10*3/uL Comprehensive Metabolic Panel Result Value Ref Range Glucose 73 (L) 74 - 99 mg/dL Sodium 137 136 - 145 mmol/L Potassium 5.0 3.5 - 5.3 mmol/L Chloride 105 98 - 107 mmol/L Bicarbonate 29 21 - 32 mmol/L Anion Gap 8 (L) 10 - 20 mmol/L Urea Nitrogen 9 6 - 23 mg/dL Creatinine 1.03 0.50 - 1.05 mg/dL eGFR 71 >60 mL/min/1.73m*2 Calcium 8.6 8.6 - 10.6 mg/dL Albumin 3.0 (L) 3.4 - 5.0 g/dL Alkaline Phosphatase 238 (H) 33 - 110 U/L Total Protein 5.6 (L) 6.4 - 8.2 g/dL AST 20 9 - 39 U/L Bilirubin, Total 1.0 0.0 - 1.2 mg/dL ALT 21 7 - 45 U/L Magnesium Result Value Ref Range Magnesium 1.82 1.60 - 2.40 mg/dL Coagulation Screen Result Value Ref Range Protime 12.9 (H) 9.8 - 12.8 seconds INR 1.1 0.9 - 1.1 aPTT 37 27 - 38 seconds Assessment/Plan Principal Problem: Pulmonary hypertension (CMS/HCC) 37 yo female PMH T2DM, HTN, Raynaud's, CKD, chronic L leg wound with recent surgical debridement who presented to the hospital with concerns for cellulitis and is in the MICU for further management a new diagnosis of pulmonary hypertension 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 06/12 Updates: - Katherine lovelace (CVP 18, PA 86 50, 50, CO 5.26, CI 2.63, SvO2 66.9) - I/O: Net even ~0, encourage PO intake - c/w digioxin - IR consulted for Doss line, plan for 06/13 - On epoprostenol 6 ng/kg/min, trialed Remodulin yesterday with sided effects and switched back to epoprostenol. Per Dr. Schumacher, line may have been flushed and possible bolus of drug - Stable for floor transfer. Will remove swan. 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 ::Unclear history of VTEs, could not rule out as US was limited by pain ::Troponin 17, no concern for ischemia ::CTA chest without PE ::V/Q with heterogeneity in both lungs, intermediate probability for pulm embolism. Chronic PE vs multifocal airway disease not entirely excluded :: 06/08: Mulvane repositioned in optical laboratory mechanic overnight, Mulvane again out of place this morning, cardiology repositioned Mulvane at bedside, now in appropriate location :: dsDNA, RF, anca panel, CCP, SSA/SSB, scl-70, HIV, complement C3 and C4 all WNL :: positive NICOLE and anti-centromere antibody :: trialed on Remodulin 06/11, had side effects and switched back to epo - S/p RHC with swan, LHC with Heart Failure team 06/06 - extended myositis panel pending - Rheumatology onboard - Pulmonary hypertension team onboard - On epo - IR consult for Doss port, plan for 06/13 PULMONARY #Pulmonary arterial hypertension #Productive cough/wheezing (improved), likely 2/2 Rt HF ::No overt sings of PNA on CXR ::Influenza A/B and Covid negative ::Utox positive for opiate, HOWEVER, patient received 4 mg of IV morphine (06/03 at 2200) less than 48 hours before utox collected (06/05 at 1154) PLAN: - working up as above - Strict I/O and daily weights - Sputum cultures sent - may require lung transplant RENAL/ #MAXIMO on CKD, (resolved) ::Likely cardiorenal PLAN: -Avoiding nephrotoxins -Fluid resuscitation prior to contrast GI #Elevated liver enzymes, cholestatic pattern, likely cardiohepatic ::AST 17, ALT 13, alk phos 281, R-factor 0.1 ::mild RUQ pain, Lazar's sign negative on exam ::Positive hepatitis C antibody, negative RNA -RUQ with hepatomegaly, splenomeagly -improving with PAH treatment #N/V -zofran prn -instructed patient to take the Bactrim with food ID #LLE cellulitis #C/f URI PLAN: -Sent blood, sputum, and wound cultures -Resp viral panel negative -Abx coverage initially with IV Vanc/Zosyn -Wound culture w/ susceptibilities: MSSA and Enterobacter cloacae complex (both susceptible to Bactrim) -06/08: Abx switched to Bactrim -Consult placed to wound care MSK/DERM #CREST/IcSSC PLAN: -autoimmune/connective tissue workup as above -rheum onboard: no indication for immunosuppression therapy, symptomatic tx as needed -added PPI F: PRN E: PRN N: NPO pending procedure, otherwise regular A: PIVs GI ppx: Protonix DVT ppx: SQH - Held for Doss placement Code status: Full (confirmed on admission) NOK: Rocio Sánchez [phone] Associated attestation - Rhea Henning MD - 06/16/2023 12:05 PM EDT Brief Attending Summary: 57-year-old with newly diagnosed crest (sclerodactyly, Raynaud's, telangiectasia, 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 She has been initiated on epoprostenol infusion and have been uptitrated to 6 ng/kg. Further up titration is hindered by side effects of nausea. On dobutamine for inotrope support up to 5 mcg/kg. No weaned off and started on digoxin with a persistent improvement of her CI to 2.6. monitor I/O--adequate . plan to switch to remodulin,. Social Work Transitional Care Note: (chart review) -ICU treatment note: The patient transferred to CICU as a MICU boarder. PMH of chronic leg wound w/ wound infection, decompensated HF, Pulmonary hypertension improving - Payer: [employer] - Support System: The patients' Significant other and father are listed as NOK - Planned Disposition: Pending medical outcome and rehab recommendation - Patient may need assistance with wound care if dc home - Potential Barriers: None noted at this time. SW will continue to follow -Anticipated Date of Discharge: 06/18 DANO Nesbitt Jayna Smith is a 37 y.o. female on day 6 of admission presenting with Pulmonary hypertension (CMS/HCC). Subjective - Patient seen in the AM without significant complains - Endorses that the skin peeling on her skin is driving her crazy. Otherwise no other issues Objective Physical Exam Constitutional: General: She is not in acute distress. Appearance: Normal appearance. She is normal weight. She is not ill-appearing or toxic-appearing. HENT: Head: Normocephalic and atraumatic. Eyes: Pupils: Pupils are equal, round, and reactive to light. Cardiovascular: Rate and Rhythm: Normal rate. Heart sounds: Murmur heard. Comments: Significant mid to end systolic murmur noted Pulmonary: Effort: Pulmonary effort is normal. No respiratory distress. Breath sounds: Normal breath sounds. No wheezing or rales. Abdominal: General: Abdomen is flat. There is no distension. Palpations: Abdomen is soft. Tenderness: There is no abdominal tenderness. There is no guarding. Skin: General: Skin is warm and dry. Capillary Refill: Capillary refill takes less than 2 seconds. Comments: Significant contraction of index finger on R hand with dry ulceration on the tip Neurological: General: No focal deficit present. Mental Status: She is alert and oriented to person, place, and time. Last Recorded Vitals Blood pressure (!) 120/95, pulse 70, temperature 36.2 C (97.2 F), temperature source Temporal, resp. rate 23, height 1.727 m (5' 8), weight 86.1 kg (189 lb 12.8 oz), last menstrual period 06/06/2023, SpO2 95 %. Intake/Output last 3 Shifts: I/O last 3 completed shifts: In: 1299 (15.1 mL/kg) [P.O.:1040; I.V.:259 (3 mL/kg)] Out: 2300 (26.7 mL/kg) [Urine:2300 (0.7 mL/kg/hr)] Weight: 86.1 kg Relevant Results Scheduled medications digoxin, 125 mcg, oral, Daily heparin (porcine), 5,000 Units, subcutaneous, q8h insulin lispro, 0-5 Units, subcutaneous, TID with meals melatonin, 6 mg, oral, Daily pantoprazole, 40 mg, oral, Daily before breakfast sulfamethoxazole-trimethoprim, 160 mg, oral, q12h LOUISE trimethobenzamide, 200 mg, intramuscular, Once Continuous medications treprostinil, 6 ng/kg/min (Order-Specific) PRN medications PRN medications: acetaminophen OR acetaminophen OR acetaminophen, dextrose, dextrose, glucagon, glucagon, HYDROmorphone, ondansetron, oxyCODONE, oxyCODONE, oxygen Results for orders placed or performed during the hospital encounter of 06/06/23 (from the past 24 hour(s)) BLOOD GAS MIXED VENOUS FULL PANEL Result Value Ref Range POCT pH, Mixed 7.39 7.33 - 7.43 pH POCT pCO2, Mixed 37 (L) 41 - 51 mm Hg POCT pO2, Mixed 43 35 - 45 mm Hg POCT SO2, Mixed 71 45 - 75 % POCT Oxy Hemoglobin, Mixed 69.6 45.0 - 75.0 % POCT Hematocrit Calculated, Mixed 40.0 36.0 - 46.0 % POCT Sodium, Mixed 132 (L) 136 - 145 mmol/L POCT Potassium, Mixed 4.4 3.5 - 5.3 mmol/L POCT Chloride, Mixed 104 98 - 107 mmol/L POCT Ionized Calcium, Mixed 1.14 1.10 - 1.33 mmol/L POCT Glucose, Mixed 147 (H) 74 - 99 mg/dL POCT Lactate, Mixed 1.7 0.4 - 2.0 mmol/L POCT Base Excess, Mixed -2.2 (L) -2.0 - 3.0 mmol/L POCT HCO3 Calculated, Mixed 22.4 22.0 - 26.0 mmol/L POCT Hemoglobin, Mixed 13.2 12.0 - 16.0 g/dL POCT Anion Gap, Mixed 10 10 - 25 mmo/L Patient Temperature 37.0 degrees Celsius FiO2 28 % POCT GLUCOSE Result Value Ref Range POCT Glucose 120 (H) 74 - 99 mg/dL BLOOD GAS MIXED VENOUS Result Value Ref Range POCT pH, Mixed 7.38 7.33 - 7.43 pH POCT pCO2, Mixed 41 41 - 51 mm Hg POCT pO2, Mixed 34 (L) 35 - 45 mm Hg POCT SO2, Mixed 50 45 - 75 % POCT Oxy Hemoglobin, Mixed 49.0 45.0 - 75.0 % POCT Base Excess, Mixed -0.8 -2.0 - 3.0 mmol/L POCT HCO3 Calculated, Mixed 24.3 22.0 - 26.0 mmol/L Patient Temperature 37.0 degrees Celsius FiO2 28 % CBC and Auto Differential Result Value Ref Range WBC 4.9 4.4 - 11.3 x10*3/uL nRBC 0.0 0.0 - 0.0 /100 WBCs RBC 4.65 4.00 - 5.20 x10*6/uL Hemoglobin 12.9 12.0 - 16.0 g/dL Hematocrit 38.4 36.0 - 46.0 % MCV 83 80 - 100 fL MCH 27.7 26.0 - 34.0 pg MCHC 33.6 32.0 - 36.0 g/dL RDW 16.3 (H) 11.5 - 14.5 % Platelets 111 (L) 150 - 450 x10*3/uL Neutrophils % 68.8 40.0 - 80.0 % Immature Granulocytes %, Automated 0.4 0.0 - 0.9 % Lymphocytes % 16.0 13.0 - 44.0 % Monocytes % 13.2 2.0 - 10.0 % Eosinophils % 1.2 0.0 - 6.0 % Basophils % 0.4 0.0 - 2.0 % Neutrophils Absolute 3.34 1.20 - 7.70 x10*3/uL Immature Granulocytes Absolute, Automated 0.02 0.00 - 0.70 x10*3/uL Lymphocytes Absolute 0.78 (L) 1.20 - 4.80 x10*3/uL Monocytes Absolute 0.64 0.10 - 1.00 x10*3/uL Eosinophils Absolute 0.06 0.00 - 0.70 x10*3/uL Basophils Absolute 0.02 0.00 - 0.10 x10*3/uL Comprehensive Metabolic Panel Result Value Ref Range Glucose 112 (H) 74 - 99 mg/dL Sodium 135 (L) 136 - 145 mmol/L Potassium 4.9 3.5 - 5.3 mmol/L Chloride 103 98 - 107 mmol/L Bicarbonate 25 21 - 32 mmol/L Anion Gap 12 10 - 20 mmol/L Urea Nitrogen 9 6 - 23 mg/dL Creatinine 0.96 0.50 - 1.05 mg/dL eGFR 77 >60 mL/min/1.73m*2 Calcium 8.4 (L) 8.6 - 10.6 mg/dL Albumin 2.8 (L) 3.4 - 5.0 g/dL Alkaline Phosphatase 217 (H) 33 - 110 U/L Total Protein 5.2 (L) 6.4 - 8.2 g/dL AST 24 9 - 39 U/L Bilirubin, Total 1.0 0.0 - 1.2 mg/dL ALT 24 7 - 45 U/L Magnesium Result Value Ref Range Magnesium 1.79 1.60 - 2.40 mg/dL POCT GLUCOSE Result Value Ref Range POCT Glucose 118 (H) 74 - 99 mg/dL BLOOD GAS MIXED VENOUS FULL PANEL Result Value Ref Range POCT pH, Mixed 7.40 7.33 - 7.43 pH POCT pCO2, Mixed 39 (L) 41 - 51 mm Hg POCT pO2, Mixed 44 35 - 45 mm Hg POCT SO2, Mixed 68 45 - 75 % POCT Oxy Hemoglobin, Mixed 65.7 45.0 - 75.0 % POCT Hematocrit Calculated, Mixed 41.0 36.0 - 46.0 % POCT Sodium, Mixed 132 (L) 136 - 145 mmol/L POCT Potassium, Mixed 4.6 3.5 - 5.3 mmol/L POCT Chloride, Mixed 103 98 - 107 mmol/L POCT Ionized Calcium, Mixed 1.16 1.10 - 1.33 mmol/L POCT Glucose, Mixed 104 (H) 74 - 99 mg/dL POCT Lactate, Mixed 1.6 0.4 - 2.0 mmol/L POCT Base Excess, Mixed -0.5 -2.0 - 3.0 mmol/L POCT HCO3 Calculated, Mixed 24.2 22.0 - 26.0 mmol/L POCT Hemoglobin, Mixed 13.6 12.0 - 16.0 g/dL POCT Anion Gap, Mixed 9 (L) 10 - 25 mmo/L Patient Temperature 37.0 degrees Celsius FiO2 28 % POCT GLUCOSE Result Value Ref Range POCT Glucose 156 (H) 74 - 99 mg/dL XR chest 1 view Result Date: 06/11/2023 Interpreted By: Cuco Barry and Sheng Max STUDY: XR CHEST 1 VIEW; 06/11/2023 11:36 am INDICATION: Signs/Symptoms:check swan position. COMPARISON: Chest radiograph dated 06/09/2023, 06/08/2023, 06/06/2023 and CTA chest dated 06/07/2023 ACCESSION NUMBER(S): [id number] ORDERING CLINICIAN: HUDSON GREEN FINDINGS: AP radiograph of the chest LINES AND DEVICES: Right internal jugular approach Mulvane-Suresh catheter tip projects over the right pulmonary artery. CARDIOMEDIASTINAL SILHOUETTE: Stable enlargement of the cardiomediastinal silhouette. LUNGS: Similar appearance of perihilar and interstitial prominence suggestive of mild pulmonary edema. Persistent trace left pleural effusion. No pneumothorax. ABDOMEN: No remarkable upper abdominal findings. BONES: No acute osseous abnormality. 1. Right internal jugular approach Mulvane-Suresh catheter tip projects over the right pulmonary artery not significantly changed from prior exam. 2. Similar appearance of mild pulmonary edema with trace left pleural effusion. I personally reviewed the images/study and I agree with the findings as stated by Dr. Lauri Chavez. This study was interpreted at [facility], [place], [place]. MACRO: None Signed by: Cuco Lyons 06/11/2023 12:47 PM Dictation workstation: [id number] ECG 12 lead Result Date: 06/11/2023 Normal sinus rhythm Left atrial enlargement Incomplete right bundle branch block Right ventricular hypertrophy Cannot rule out Inferior infarct , age undetermined Anteroseptal infarct , age undetermined ST & T wave abnormality, consider lateral ischemia Abnormal ECG No previous ECGs available Confirmed by Javier Henriquez ([id number]) on 06/11/2023 10:50:27 AM ECG 12 Lead Result Date: 06/11/2023 Normal sinus rhythm Left atrial enlargement Incomplete right bundle branch block , plus right ventricular hypertrophy Possible Inferior infarct (cited on or before 10-JUN-2023) Abnormal ECG When compared with ECG of 10-JUN-2023 21:49, QT has shortened Confirmed by Javier Henriquez ([id number]) on 06/11/2023 10:49:52 AM This patient currently has cardiac telemetry ordered; if you would like to modify or discontinue the telemetry order, click here to go to the orders activity to modify/discontinue the order. 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 06/11 Updates: - Repeat swan numbers. 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 ::Unclear history of VTEs, could not rule out as US was limited by pain ::Troponin 17, no concern for ischemia ::CTA chest without PE ::V/Q with heterogeneity in both lungs, intermediate probability for pulm embolism. Chronic PE vs multifocal airway disease not entirely excluded :: 06/08: Mulvane repositioned in optical laboratory mechanic overnight, Mulvane again out of place this morning, cardiology repositioned Mulvane at bedside, now in appropriate location :: dsDNA, RF, anca panel, CCP, SSA/SSB, scl-70, HIV, complement C3 and C4 all WNL :: positive NICOLE and anti-centromere antibody - S/p RHC with katherine, LHC with Heart Failure team 06/06 - extended myositis panel pending - Rheumatology onboard - Pulmonary hypertension team onboard - will switch from epo to treprostinil - IR consult for Doss port PULMONARY #Pulmonary arterial hypertension #Productive cough/wheezing (improved), likely 2/2 Rt HF ::No overt sings of PNA on CXR ::Influenza A/B and Covid negative PLAN: - working up as above - Strict I/O and daily weights - Sputum cultures sent - may require lungs transplant - Utox positive for opiate, HOWEVER, patient received 4 mg of IV morphine (06/03 at 2200) less than 48 hours before utox collected (06/05 at 1154) RENAL/ #MAXIMO on CKD, (resolved) ::Likely cardiorenal PLAN: -Avoiding nephrotoxins -Fluid resuscitation prior to contrast GI #Elevated liver enzymes, cholestatic pattern, likely cardiohepatic ::AST 17, ALT 13, alk phos 281, R-factor 0.1 ::mild RUQ pain, Lazar's sign negative on exam ::Positive hepatitis C antibody, negative RNA -RUQ with hepatomegaly, splenomeagly -improving with PAH treatment #N/V -zofran prn -instructed patient to take the Bactrim with food ID #LLE cellulitis #C/f URI PLAN: -Sent blood, sputum, and wound cultures -Resp viral panel negative -Abx coverage initially with IV Vanc/Zosyn -Wound culture w/ susceptibilities: MSSA and Enterobacter cloacae complex (both susceptible to Bactrim) -06/08: Abx switched to Bactrim -Consult placed to wound care MSK/DERM #CREST/IcSSC PLAN: -autoimmune/connective tissue workup as above -rheum onboard: no indication for immunosuppression therapy, symptomatic tx as needed -added PPI F: PRN E: PRN N: Regular Adult A: PIVs GI ppx: Protonix DVT ppx: SQH - Held for Doss placement\ Code status: Full (confirmed on admission) NOK: FatherRocio [phone] Sly Houser MD Associated attestation - Milady, Rhea Jon MD - 06/13/2023 5:55 AM EDT Brief Attending Summary: 57-year-old with newly diagnosed crest (sclerodactyly, Raynaud's, telangiectasia, 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 She has been initiated on epoprostenol infusion and have been uptitrated to 6 ng/kg. Further up titration is hindered by side effects of nausea. On dobutamine for inotrope support up to 5 mcg/kg. No weaned off and started on digoxin with a persistent improvement of her CI to 2.6. monitor I/O and plan to switch to remodulin,. This critically ill patient continues to be at-risk for deterioration / failure due to the above mentioned dysfunctional unstable organ systems. I have personally identified and managed all critical care issues. Assessment, impressions and plans are reflected in the note above as well as the orders. Critical care time is spent at bedside includes review of diagnostic tests, labs, and radiographs, serial assessments and management of hemodynamics, respiratory status, ventilation and coordination of care. Teaching and any separately billable procedures are not included in the time calculation. Billing Provider Critical Care Time: 35 minutes Jayna Smith is a 37 y.o. female on day 5 of admission presenting with Pulmonary hypertension (CMS/HCC). Subjective Overnight Events: Nothing acute overnight. This Morning: Patient stating she does not want a Doss catheter. From her point of view, she came to the hospital simply for a second opinion about her leg wound and wasn't anticipating needing such intensive shelter treatment for a medical issue she wasn't aware of. She states she hasn't noticed any increased shortness of breath lately with activity and has been fine at her workplace. She is uncertain why she can't just be on oral medications moving forward. Objective Physical Exam Constitutional: General: She is not in acute distress. HENT: Mouth/Throat: Mouth: Mucous membranes are moist. Pharynx: Oropharynx is clear. Eyes: Extraocular Movements: Extraocular movements intact. Conjunctiva/sclera: Conjunctivae normal. Pupils: Pupils are equal, round, and reactive to light. Cardiovascular: Rate and Rhythm: Normal rate and regular rhythm. Heart sounds: Murmur heard. Systolic murmur is present. Comments: Murmur loudest at left sternal border and improved from previous exams. Pulmonary: Effort: Pulmonary effort is normal. Breath sounds: Normal breath sounds. Abdominal: Palpations: Abdomen is soft. Tenderness: Non-tender to palpation. Skin: General: Skin is warm and dry. Findings: Lesion present. Comments: LLE anterior tibial wound, erythema, no purulent drainage Neurological: General: No focal deficit present. Mental Status: She is alert and oriented to person, place, and time. Psychiatric: Mood and Affect: Mood normal. Behavior: Behavior normal. Last Recorded Vitals Blood pressure 118/90, pulse 66, temperature 36.5 C (97.7 F), resp. rate 22, height 1.727 m (5' 8), weight 79.1 kg (174 lb 6.1 oz), last menstrual period 06/06/2023, SpO2 99 %. Intake/Output last 3 Shifts: I/O last 3 completed shifts: In: 565.9 (7 mL/kg) [P.O.:240; I.V.:325.9 (4 mL/kg)] Out: 3375 (41.7 mL/kg) [Urine:2675 (0.9 mL/kg/hr); Emesis/NG output:700] Dosing Weight: 81 kg Relevant Results Results for orders placed or performed during the hospital encounter of 06/06/23 (from the past 24 hour(s)) BLOOD GAS MIXED VENOUS Result Value Ref Range POCT pH, Mixed 7.40 7.33 - 7.43 pH POCT pCO2, Mixed 38 (L) 41 - 51 mm Hg POCT pO2, Mixed 41 35 - 45 mm Hg POCT SO2, Mixed 69 45 - 75 % POCT Oxy Hemoglobin, Mixed 67.3 45.0 - 75.0 % POCT Base Excess, Mixed -1.1 -2.0 - 3.0 mmol/L POCT HCO3 Calculated, Mixed 23.5 22.0 - 26.0 mmol/L Patient Temperature 37.0 degrees Celsius FiO2 21 % CBC and Auto Differential Result Value Ref Range WBC 4.3 (L) 4.4 - 11.3 x10*3/uL nRBC 0.0 0.0 - 0.0 /100 WBCs RBC 4.59 4.00 - 5.20 x10*6/uL Hemoglobin 12.8 12.0 - 16.0 g/dL Hematocrit 38.2 36.0 - 46.0 % MCV 83 80 - 100 fL MCH 27.9 26.0 - 34.0 pg MCHC 33.5 32.0 - 36.0 g/dL RDW 15.9 (H) 11.5 - 14.5 % Platelets 112 (L) 150 - 450 x10*3/uL Neutrophils % 73.1 40.0 - 80.0 % Immature Granulocytes %, Automated 0.5 0.0 - 0.9 % Lymphocytes % 15.3 13.0 - 44.0 % Monocytes % 9.7 2.0 - 10.0 % Eosinophils % 0.9 0.0 - 6.0 % Basophils % 0.5 0.0 - 2.0 % Neutrophils Absolute 3.15 1.20 - 7.70 x10*3/uL Immature Granulocytes Absolute, Automated 0.02 0.00 - 0.70 x10*3/uL Lymphocytes Absolute 0.66 (L) 1.20 - 4.80 x10*3/uL Monocytes Absolute 0.42 0.10 - 1.00 x10*3/uL Eosinophils Absolute 0.04 0.00 - 0.70 x10*3/uL Basophils Absolute 0.02 0.00 - 0.10 x10*3/uL Comprehensive Metabolic Panel Result Value Ref Range Glucose 86 74 - 99 mg/dL Sodium 137 136 - 145 mmol/L Potassium 4.6 3.5 - 5.3 mmol/L Chloride 106 98 - 107 mmol/L Bicarbonate 25 21 - 32 mmol/L Anion Gap 11 10 - 20 mmol/L Urea Nitrogen 10 6 - 23 mg/dL Creatinine 0.91 0.50 - 1.05 mg/dL eGFR 82 >60 mL/min/1.73m*2 Calcium 8.3 (L) 8.6 - 10.6 mg/dL Albumin 2.6 (L) 3.4 - 5.0 g/dL Alkaline Phosphatase 206 (H) 33 - 110 U/L Total Protein 4.9 (L) 6.4 - 8.2 g/dL AST 27 9 - 39 U/L Bilirubin, Total 1.2 0.0 - 1.2 mg/dL ALT 25 7 - 45 U/L Magnesium Result Value Ref Range Magnesium 1.86 1.60 - 2.40 mg/dL BLOOD GAS MIXED VENOUS FULL PANEL Result Value Ref Range POCT pH, Mixed 7.40 7.33 - 7.43 pH POCT pCO2, Mixed 40 (L) 41 - 51 mm Hg POCT pO2, Mixed 42 35 - 45 mm Hg POCT SO2, Mixed 68 45 - 75 % POCT Oxy Hemoglobin, Mixed 66.6 45.0 - 75.0 % POCT Hematocrit Calculated, Mixed 39.0 36.0 - 46.0 % POCT Sodium, Mixed 133 (L) 136 - 145 mmol/L POCT Potassium, Mixed 4.3 3.5 - 5.3 mmol/L POCT Chloride, Mixed 103 98 - 107 mmol/L POCT Ionized Calcium, Mixed 1.17 1.10 - 1.33 mmol/L POCT Glucose, Mixed 82 74 - 99 mg/dL POCT Lactate, Mixed 0.6 0.4 - 2.0 mmol/L POCT Base Excess, Mixed 0.0 -2.0 - 3.0 mmol/L POCT HCO3 Calculated, Mixed 24.8 22.0 - 26.0 mmol/L POCT Hemoglobin, Mixed 12.9 12.0 - 16.0 g/dL POCT Anion Gap, Mixed 10 10 - 25 mmo/L Patient Temperature 37.0 degrees Celsius FiO2 28 % POCT GLUCOSE Result Value Ref Range POCT Glucose 105 (H) 74 - 99 mg/dL POCT GLUCOSE Result Value Ref Range POCT Glucose 132 (H) 74 - 99 mg/dL BLOOD GAS MIXED VENOUS FULL PANEL Result Value Ref Range POCT pH, Mixed 7.39 7.33 - 7.43 pH POCT pCO2, Mixed 37 (L) 41 - 51 mm Hg POCT pO2, Mixed 43 35 - 45 mm Hg POCT SO2, Mixed 71 45 - 75 % POCT Oxy Hemoglobin, Mixed 69.6 45.0 - 75.0 % POCT Hematocrit Calculated, Mixed 40.0 36.0 - 46.0 % POCT Sodium, Mixed 132 (L) 136 - 145 mmol/L POCT Potassium, Mixed 4.4 3.5 - 5.3 mmol/L POCT Chloride, Mixed 104 98 - 107 mmol/L POCT Ionized Calcium, Mixed 1.14 1.10 - 1.33 mmol/L POCT Glucose, Mixed 147 (H) 74 - 99 mg/dL POCT Lactate, Mixed 1.7 0.4 - 2.0 mmol/L POCT Base Excess, Mixed -2.2 (L) -2.0 - 3.0 mmol/L POCT HCO3 Calculated, Mixed 22.4 22.0 - 26.0 mmol/L POCT Hemoglobin, Mixed 13.2 12.0 - 16.0 g/dL POCT Anion Gap, Mixed 10 10 - 25 mmo/L Patient Temperature 37.0 degrees Celsius FiO2 28 % Assessment/Plan Principal Problem: Pulmonary hypertension (CMS/HCC) 37 yo female PMH T2DM, HTN, Raynaud's, CKD, chronic L leg wound with recent surgical debridement who presented to the hospital with concerns for cellulitis and is in the MICU for further management a new diagnosis of pulmonary hypertension 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 Patient feels well overall, currently titrating Velitri with improvement in MAXIMO. 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 ::Unclear history of VTEs, could not rule out as US was limited by pain ::Troponin 17, no concern for ischemia ::CTA chest without PE ::V/Q with heterogeneity in both lungs, intermediate probability for pulm embolism. Chronic PE vs multifocal airway disease not entirely excluded PLAN: - S/p RHC with swan, LHC with Heart Failure team 06/06 - dsDNA, RF, anca panel, CCP, SSA/SSB, scl-70, HIV, complement C3 and C4 all WNL - extended myositis panel pending - positive NICOLE and anti-centromere antibody - Rheumatology onboard - Pulmonary hypertension team onboard - on inhaled nitric oxide, Veletri, and dobutamine - 06/08: Mulvane repositioned in optical laboratory mechanic overnight, Mulvane again out of place this morning, cardiology repositioned Mulvane at bedside, now in appropriate location - weaned off of nitric oxide and titrating up Veletri based on Mulvane values - 06/10: Weaning off of dobutamine, starting low dose digoxin for inotropic effect PULMONARY #Pulmonary arterial hypertension #Productive cough/wheezing (improved), likely 2/2 Rt HF ::No overt sings of PNA on CXR ::Influenza A/B and Covid negative PLAN: - working up as above - Strict I/O and daily weights - Sputum cultures sent - may require lungs transplant - Utox positive for opiate, HOWEVER, patient received 4 mg of IV morphine (06/03 at 2200) less than 48 hours before utox collected (06/05 at 1154) RENAL/ #MAXIMO on CKD, resolved ::Likely cardiorenal PLAN: -Avoiding nephrotoxins -Fluid resuscitation prior to contrast GI #Elevated liver enzymes, cholestatic pattern, likely cardiohepatic ::AST 17, ALT 13, alk phos 281, R-factor 0.1 ::mild RUQ pain, Lazar's sign negative on exam ::Positive hepatitis C antibody, negative RNA -RUQ with hepatomegaly, splenomeagly -improving with PAH treatment #N/V -zofran prn -instructed patient to take the Bactrim with food ID #LLE cellulitis #C/f URI PLAN: -Sent blood, sputum, and wound cultures -Resp viral panel negative -Abx coverage initially with IV Vanc/Zosyn -Wound culture w/ susceptibilities: MSSA and Enterobacter cloacae complex (both susceptible to Bactrim) -06/08: Abx switched to Bactrim -Consult placed to wound care MSK/DERM #CREST/IcSSC PLAN: -autoimmune/connective tissue workup as above -rheum onboard: no indication for immunosuppression therapy, symptomatic tx as needed -added PPI F: PRN E: PRN N: Regular Adult A: PIVs GI ppx: Protonix DVT ppx: SQH Code status: Full (confirmed on admission) NOK: FatherRocio [phone] Dispo: 37F admitted for workup and treatment of PAH 2/2 CREST and RHF. Now with Mulvane, titrating Veletri. Weaned off dobutamine. On PO Bactrim for LLE cellulitis. Patient currently having difficulty accepting diagnosis/prognosis/treatment. Johnny Guerrero DO Internal Medicine PGY-1 Associated attestation - Milady, Rhea Jon MD - 06/12/2023 5:49 AM EDT Brief Attending Summary: 57-year-old with newly diagnosed crest (sclerodactyly, Raynaud's, telangiectasia and pulmonary hypertension. Admitted to the MICU for PAH with cardiogenic shock. She has been initiated on epoprostenol infusion and have been uptitrated to 6 mg/kg. Further up titration is hindered by side effects of nausea and dobutamine for inotrope support up to 5 mcg/kg. Improved UO and hemodynamics and MAXIMO This critically ill patient continues to be at-risk for deterioration / failure due to the above mentioned dysfunctional unstable organ systems. I have personally identified and managed all critical care issues. Assessment, impressions and plans are reflected in the note above as well as the orders. Critical care time is spent at bedside includes review of diagnostic tests, labs, and radiographs, serial assessments and management of hemodynamics, respiratory status, ventilation and coordination of care. Teaching and any separately billable procedures are not included in the time calculation. Billing Provider Critical Care Time: 35 minutes Physical Therapy Therapy Communication Note Patient Name: Jayna Smith Today's Date: 06/11/2023 Discipline: Physical Therapy Missed Visit Reason: Missed Visit Reason: (patient still having veletri titrated. PT will hold until stable dose is reached and medical team stops titrating.) Missed Time: Attempt Comment: Jayna Smith is a 37 y.o. female on day 4 of admission presenting with Pulmonary hypertension (CMS/HCC). Subjective Overnight Events: Patient experienced vomiting overnight that she says may have been associated with her leg pain. She did vomit shortly after receiving Bactrim and had to receive a 2nd dose to replace it. Additionally patient was desatting into 80s and was placed on 4 L/min of oxygen via NC. This Morning: Patient again with nausea and is hesitant to eat with the fear that she will need to vomit again. Patient now satting well on 2 L/min of O2. Objective Physical Exam Constitutional: General: She is not in acute distress. HENT: Mouth/Throat: Mouth: Mucous membranes are moist. Pharynx: Oropharynx is clear. Eyes: Extraocular Movements: Extraocular movements intact. Conjunctiva/sclera: Conjunctivae normal. Pupils: Pupils are equal, round, and reactive to light. Cardiovascular: Rate and Rhythm: Normal rate and regular rhythm. Heart sounds: Murmur heard. Systolic murmur is present. Comments: Murmur loudest at left sternal border and improved from previous exams. Pulmonary: Effort: Pulmonary effort is normal. Breath sounds: Normal breath sounds. Abdominal: Palpations: Abdomen is soft. Tenderness: Non-tender to palpation. Skin: General: Skin is warm and dry. Findings: Lesion present. Comments: LLE anterior tibial wound, erythema, no purulent drainage Neurological: General: No focal deficit present. Mental Status: She is alert and oriented to person, place, and time. Psychiatric: Mood and Affect: Mood normal. Behavior: Behavior normal. Last Recorded Vitals Blood pressure 100/76, pulse 73, temperature 36.5 C (97.7 F), temperature source Temporal, resp. rate 20, height 1.727 m (5' 8), weight 84.9 kg (187 lb 2.7 oz), last menstrual period 06/06/2023, SpO2 98 %. Intake/Output last 3 Shifts: I/O last 3 completed shifts: In: 768.9 (9.5 mL/kg) [P.O.:240; I.V.:378.9 (4.7 mL/kg); IV Piggyback:150] Out: 2600 (32.1 mL/kg) [Urine:1900 (0.7 mL/kg/hr); Emesis/NG output:700] Dosing Weight: 81 kg Relevant Results Results for orders placed or performed during the hospital encounter of 06/06/23 (from the past 24 hour(s)) BLOOD GAS MIXED VENOUS Result Value Ref Range POCT pH, Mixed 7.36 7.33 - 7.43 pH POCT pCO2, Mixed 43 41 - 51 mm Hg POCT pO2, Mixed 42 35 - 45 mm Hg POCT SO2, Mixed 69 45 - 75 % POCT Oxy Hemoglobin, Mixed 67.6 45.0 - 75.0 % POCT Base Excess, Mixed -1.3 -2.0 - 3.0 mmol/L POCT HCO3 Calculated, Mixed 24.3 22.0 - 26.0 mmol/L Patient Temperature 37.0 degrees Celsius FiO2 32 % POCT GLUCOSE Result Value Ref Range POCT Glucose 150 (H) 74 - 99 mg/dL BLOOD GAS MIXED VENOUS Result Value Ref Range POCT pH, Mixed 7.37 7.33 - 7.43 pH POCT pCO2, Mixed 42 41 - 51 mm Hg POCT pO2, Mixed 41 35 - 45 mm Hg POCT SO2, Mixed 65 45 - 75 % POCT Oxy Hemoglobin, Mixed 63.6 45.0 - 75.0 % POCT Base Excess, Mixed -1.1 -2.0 - 3.0 mmol/L POCT HCO3 Calculated, Mixed 24.3 22.0 - 26.0 mmol/L Patient Temperature 37.0 degrees Celsius FiO2 32 % CBC and Auto Differential Result Value Ref Range WBC 5.4 4.4 - 11.3 x10*3/uL nRBC 0.0 0.0 - 0.0 /100 WBCs RBC 4.56 4.00 - 5.20 x10*6/uL Hemoglobin 12.5 12.0 - 16.0 g/dL Hematocrit 38.3 36.0 - 46.0 % MCV 84 80 - 100 fL MCH 27.4 26.0 - 34.0 pg MCHC 32.6 32.0 - 36.0 g/dL RDW 15.9 (H) 11.5 - 14.5 % Platelets 126 (L) 150 - 450 x10*3/uL Neutrophils % 73.3 40.0 - 80.0 % Immature Granulocytes %, Automated 0.7 0.0 - 0.9 % Lymphocytes % 12.6 13.0 - 44.0 % Monocytes % 11.8 2.0 - 10.0 % Eosinophils % 0.9 0.0 - 6.0 % Basophils % 0.7 0.0 - 2.0 % Neutrophils Absolute 3.96 1.20 - 7.70 x10*3/uL Immature Granulocytes Absolute, Automated 0.04 0.00 - 0.70 x10*3/uL Lymphocytes Absolute 0.68 (L) 1.20 - 4.80 x10*3/uL Monocytes Absolute 0.64 0.10 - 1.00 x10*3/uL Eosinophils Absolute 0.05 0.00 - 0.70 x10*3/uL Basophils Absolute 0.04 0.00 - 0.10 x10*3/uL Comprehensive Metabolic Panel Result Value Ref Range Glucose 89 74 - 99 mg/dL Sodium 135 (L) 136 - 145 mmol/L Potassium 4.3 3.5 - 5.3 mmol/L Chloride 103 98 - 107 mmol/L Bicarbonate 23 21 - 32 mmol/L Anion Gap 13 10 - 20 mmol/L Urea Nitrogen 15 6 - 23 mg/dL Creatinine 1.12 (H) 0.50 - 1.05 mg/dL eGFR 64 >60 mL/min/1.73m*2 Calcium 8.0 (L) 8.6 - 10.6 mg/dL Albumin 2.5 (L) 3.4 - 5.0 g/dL Alkaline Phosphatase 213 (H) 33 - 110 U/L Total Protein 4.8 (L) 6.4 - 8.2 g/dL AST 29 9 - 39 U/L Bilirubin, Total 1.4 (H) 0.0 - 1.2 mg/dL ALT 27 7 - 45 U/L Magnesium Result Value Ref Range Magnesium 1.80 1.60 - 2.40 mg/dL POCT GLUCOSE Result Value Ref Range POCT Glucose 104 (H) 74 - 99 mg/dL Assessment/Plan Principal Problem: Pulmonary hypertension (CMS/HCC) 37 yo female PMH T2DM, HTN, Raynaud's, CKD, chronic L leg wound with recent surgical debridement who presented to the hospital with concerns for cellulitis and is in the MICU for further management a new diagnosis of pulmonary hypertension 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 Patient feels well overall, currently titrating Velitri with improvement in MAXIMO. 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 ::Unclear history of VTEs, could not rule out as US was limited by pain ::Troponin 17, no concern for ischemia ::CTA chest without PE ::V/Q with heterogeneity in both lungs, intermediate probability for pulm embolism. Chronic PE vs multifocal airway disease not entirely excluded PLAN: - S/p RHC with swan, LHC with Heart Failure team 06/06 - dsDNA, RF, anca panel, CCP, SSA/SSB, scl-70, HIV, complement C3 and C4 all WNL - extended myositis panel pending - positive NICOLE and anti-centromere antibody - Rheumatology onboard - on inhaled nitric oxide, Veletri, and dobutamine - 06/08: Mulvane repositioned in optical laboratory mechanic overnight, Mulvane again out of place this morning, cardiology repositioned Mulvane at bedside, now in appropriate location - weaned off of nitric oxide and titrating up Veletri based on Mulvane values, will monitor for resolution of nausea before further titrating up Veletri today PULMONARY #Pulmonary arterial hypertension #Productive cough/wheezing, likely 2/2 Rt HF ::No overt sings of PNA on CXR ::Influenza A/B and Covid negative PLAN: - working up as above - Strict I/O and daily weights - Sputum cultures sent - may require lungs transplant - Utox positive for opiate, HOWEVER, patient received 4 mg of IV morphine (06/03 at 2200) less than 48 hours before utox collected (06/05 at 1154) RENAL/ #MAXIMO on CKD ::Unclear etiology for CKD, but may also be in line with underlying autoimmune etiology PLAN: -Avoiding nephrotoxins -Fluid resuscitation prior to contrast GI #Elevated liver enzymes, cholestatic pattern, likely cardiohepatic ::AST 17, ALT 13, alk phos 281, R-factor 0.1 ::mild RUQ pain, Lazar's sign negative on exam ::Positive hepatitis C antibody, negative RNA -RUQ with hepatomegaly, splenomeagly -improving with PAH treatment #N/V -zofran prn -instructed patient to take the Bactrim with food ID #LLE cellulitis #C/f URI PLAN: -Sent blood, sputum, and wound cultures -Resp viral panel negative -Abx coverage initially with IV Vanc/Zosyn -Wound culture w/ susceptibilities: MSSA and Enterobacter cloacae complex (both susceptible to Bactrim) -06/08: Abx switched to Bactrim -Consult placed to wound care MSK/DERM #CREST/IcSSC PLAN: -autoimmune/connective tissue workup as above -rheum onboard: no indication for immunosuppression therapy, symptomatic tx as needed -adding PPI F: PRN E: PRN N: Regular Adult A: PIVs GI ppx: Protonix DVT ppx: SQH Code status: Full (confirmed on admission) NOK: FatherRocio [phone] Johnny Guerrero DO Internal Medicine PGY-1 Associated attestation - Tanya Willis DO - 06/10/2023 2:01 PM EDT Brief Attending Summary: Ms. Smith is a 37yo female with history of Raynaud's with multiple chronic nonhealing wounds, CKD and DM2 (not requiring treatment) presenting as a transfer from OSH for decompensated RV failure due to likely PAH. 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 -Up-titrate velitri to 5ng/kg/min when nausea is controlled, can up-titrate q6h as tolerated. -Dobutamine for ionotropic support, up-titrate based on Mulvane numbers -q6h Bishop -Hold diuresis, PCWP likely high from poor forward flow rather than true volume overload. Auto-diuresing with improved cardiac output #MAXIMO on CKD - improving with improved CO, likely cardio-renal. UA with no blood or protein -Due to cardiogenic shock, strict I/O, trend RFP with shock management #Acute hepatic congestion due to RV failure - resolved -Trend LFTs #Likely CREST - anti-centromere + -Appreciate rheum input, no indication for immunosuppression in CREST. -Initiate PPI #Raynaud's due to above -Will likely improve with Velitri initiation #Cellulitis - Enterobacter and MSSA -Atbx narrowed to Bactrim -Wound care c/s #DM2 - diet controlled -SSI, goal glucose 140-180 I have reviewed and evaluated the most recent data and results, personally examined the patient, and formulated the plan of care as presented above. This patient was critically ill and required continued critical care treatment. Teaching and any separately billable procedures are not included in the time calculation. Billing Provider Critical Care Time: 45 minutes Jayna Smith is a 37 y.o. female on day 3 of admission presenting with Pulmonary hypertension (CMS/HCC). Subjective Overnight Events: Yesterday patient's Mulvane was out of position. Unable to reposition at bedside and was instead taken to supervisor cytogenetic laboratory overnight to have repositioned. This Morning: Patient feels that her breathing and RUQ pain has improved. Unfortunately, waveform readings from Mulvane are concerning for the catheter again being out of place. CXR was ordered which confirmed displacement. Objective Physical Exam Constitutional: General: She is not in acute distress. HENT: Mouth/Throat: Mouth: Mucous membranes are moist. Pharynx: Oropharynx is clear. Eyes: Extraocular Movements: Extraocular movements intact. Conjunctiva/sclera: Conjunctivae normal. Pupils: Pupils are equal, round, and reactive to light. Cardiovascular: Rate and Rhythm: Normal rate and regular rhythm. Heart sounds: Murmur heard. Systolic murmur is present. Comments: Murmur loudest at left sternal border. Pulmonary: Effort: Pulmonary effort is normal. Breath sounds: Normal breath sounds. Abdominal: Palpations: Abdomen is soft. Tenderness: Non-tender to palpation. Skin: General: Skin is warm and dry. Findings: Lesion present. Comments: LLE anterior tibial wound, erythema, no purulent drainage Neurological: General: No focal deficit present. Mental Status: She is alert and oriented to person, place, and time. Psychiatric: Mood and Affect: Mood normal. Behavior: Behavior normal. Last Recorded Vitals Blood pressure 112/71, pulse 69, temperature 36 C (96.8 F), temperature source Temporal, resp. rate 24, height 1.727 m (5' 8), weight 80.9 kg (178 lb 5.6 oz), last menstrual period 06/06/2023, SpO2 96 %. Intake/Output last 3 Shifts: I/O last 3 completed shifts: In: 659.9 (8.1 mL/kg) [I.V.:209.9 (2.6 mL/kg); IV Piggyback:450] Out: 1300 (16 mL/kg) [Urine:1300 (0.4 mL/kg/hr)] Dosing Weight: 81 kg Relevant Results Results for orders placed or performed during the hospital encounter of 06/06/23 (from the past 24 hour(s)) Blood Gas Venous Full Panel Result Value Ref Range POCT pH, Venous 7.36 7.33 - 7.43 pH POCT pCO2, Venous 41 41 - 51 mm Hg POCT pO2, Venous 47 (H) 35 - 45 mm Hg POCT SO2, Venous 72 45 - 75 % POCT Oxy Hemoglobin, Venous 70.1 45.0 - 75.0 % POCT Hematocrit Calculated, Venous 40.0 36.0 - 46.0 % POCT Sodium, Venous 130 (L) 136 - 145 mmol/L POCT Potassium, Venous 4.3 3.5 - 5.3 mmol/L POCT Chloride, Venous 102 98 - 107 mmol/L POCT Ionized Calicum, Venous 1.21 1.10 - 1.33 mmol/L POCT Glucose, Venous 77 74 - 99 mg/dL POCT Lactate, Venous 0.6 0.4 - 2.0 mmol/L POCT Base Excess, Venous -2.2 (L) -2.0 - 3.0 mmol/L POCT HCO3 Calculated, Venous 23.2 22.0 - 26.0 mmol/L POCT Hemoglobin, Venous 13.3 12.0 - 16.0 g/dL POCT Anion Gap, Venous 9.0 (L) 10.0 - 25.0 mmol/L Patient Temperature 37.0 degrees Celsius FiO2 36 % Type and screen Result Value Ref Range ABO TYPE A Rh TYPE POS ANTIBODY SCREEN NEG BLOOD GAS MIXED VENOUS FULL PANEL Result Value Ref Range POCT pH, Mixed 7.36 7.33 - 7.43 pH POCT pCO2, Mixed 38 (L) 41 - 51 mm Hg POCT pO2, Mixed 44 35 - 45 mm Hg POCT SO2, Mixed 70 45 - 75 % POCT Oxy Hemoglobin, Mixed 68.9 45.0 - 75.0 % POCT Hematocrit Calculated, Mixed 42.0 36.0 - 46.0 % POCT Sodium, Mixed 133 (L) 136 - 145 mmol/L POCT Potassium, Mixed 3.9 3.5 - 5.3 mmol/L POCT Chloride, Mixed 105 98 - 107 mmol/L POCT Ionized Calcium, Mixed 1.15 1.10 - 1.33 mmol/L POCT Glucose, Mixed 75 74 - 99 mg/dL POCT Lactate, Mixed 0.6 0.4 - 2.0 mmol/L POCT Base Excess, Mixed -3.5 (L) -2.0 - 3.0 mmol/L POCT HCO3 Calculated, Mixed 21.5 (L) 22.0 - 26.0 mmol/L POCT Hemoglobin, Mixed 14.1 12.0 - 16.0 g/dL POCT Anion Gap, Mixed 10 10 - 25 mmo/L Patient Temperature 37.0 degrees Celsius FiO2 36 % Vancomycin Result Value Ref Range Vancomycin 13.0 5.0 - 20.0 ug/mL CBC and Auto Differential Result Value Ref Range WBC 7.2 4.4 - 11.3 x10*3/uL nRBC 0.0 0.0 - 0.0 /100 WBCs RBC 4.76 4.00 - 5.20 x10*6/uL Hemoglobin 12.8 12.0 - 16.0 g/dL Hematocrit 40.3 36.0 - 46.0 % MCV 85 80 - 100 fL MCH 26.9 26.0 - 34.0 pg MCHC 31.8 (L) 32.0 - 36.0 g/dL RDW 15.9 (H) 11.5 - 14.5 % Platelets 141 (L) 150 - 450 x10*3/uL Neutrophils % 75.2 40.0 - 80.0 % Immature Granulocytes %, Automated 0.6 0.0 - 0.9 % Lymphocytes % 12.6 13.0 - 44.0 % Monocytes % 10.4 2.0 - 10.0 % Eosinophils % 0.8 0.0 - 6.0 % Basophils % 0.4 0.0 - 2.0 % Neutrophils Absolute 5.42 1.20 - 7.70 x10*3/uL Immature Granulocytes Absolute, Automated 0.04 0.00 - 0.70 x10*3/uL Lymphocytes Absolute 0.91 (L) 1.20 - 4.80 x10*3/uL Monocytes Absolute 0.75 0.10 - 1.00 x10*3/uL Eosinophils Absolute 0.06 0.00 - 0.70 x10*3/uL Basophils Absolute 0.03 0.00 - 0.10 x10*3/uL Comprehensive Metabolic Panel Result Value Ref Range Glucose 65 (L) 74 - 99 mg/dL Sodium 135 (L) 136 - 145 mmol/L Potassium 4.4 3.5 - 5.3 mmol/L Chloride 104 98 - 107 mmol/L Bicarbonate 22 21 - 32 mmol/L Anion Gap 13 10 - 20 mmol/L Urea Nitrogen 20 6 - 23 mg/dL Creatinine 1.21 (H) 0.50 - 1.05 mg/dL eGFR 59 (L) >60 mL/min/1.73m*2 Calcium 8.2 (L) 8.6 - 10.6 mg/dL Albumin 2.5 (L) 3.4 - 5.0 g/dL Alkaline Phosphatase 214 (H) 33 - 110 U/L Total Protein 5.0 (L) 6.4 - 8.2 g/dL AST 25 9 - 39 U/L Bilirubin, Total 1.7 (H) 0.0 - 1.2 mg/dL ALT 28 7 - 45 U/L Magnesium Result Value Ref Range Magnesium 1.89 1.60 - 2.40 mg/dL POCT GLUCOSE Result Value Ref Range POCT Glucose 77 74 - 99 mg/dL POCT GLUCOSE Result Value Ref Range POCT Glucose 151 (H) 74 - 99 mg/dL BLOOD GAS MIXED VENOUS Result Value Ref Range POCT pH, Mixed 7.36 7.33 - 7.43 pH POCT pCO2, Mixed 43 41 - 51 mm Hg POCT pO2, Mixed 42 35 - 45 mm Hg POCT SO2, Mixed 69 45 - 75 % POCT Oxy Hemoglobin, Mixed 67.6 45.0 - 75.0 % POCT Base Excess, Mixed -1.3 -2.0 - 3.0 mmol/L POCT HCO3 Calculated, Mixed 24.3 22.0 - 26.0 mmol/L Patient Temperature 37.0 degrees Celsius FiO2 32 % POCT GLUCOSE Result Value Ref Range POCT Glucose 150 (H) 74 - 99 mg/dL Assessment/Plan Principal Problem: Pulmonary hypertension (CMS/HCC) 37 yo female PMH T2DM, HTN, Raynaud's, CKD, chronic L leg wound with recent surgical debridement who presented to the hospital with concerns for cellulitis and is in the MICU for further management a new diagnosis of pulmonary hypertension 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 Patient feels well overall, currently titrating Velitri with improvement in MAXIMO. 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 ::Unclear history of VTEs, could not rule out as US was limited by pain ::Troponin 17, no concern for ischemia ::CTA chest without PE ::V/Q with heterogeneity in both lungs, intermediate probability for pulm embolism. Chronic PE vs multifocal airway disease not entirely excluded PLAN: - S/p RHC with swan, LHC with Heart Failure team 06/06 - dsDNA, RF, anca panel, CCP, SSA/SSB, scl-70, HIV, complement C3 and C4 all WNL - extended myositis panel pending - positive NICOLE and anti-centromere antibody - Rheumatology onboard - on inhaled nitric oxide, Veletri, and dobutamine - 06/08: Mulvane repositioned in optical laboratory mechanic overnight, Mulvane again out of place this morning, cardiology repositioned Mulvane at bedside, now in appropriate location - weaning down inhaled nitric oxide and titrating up Veletri based on Mulvane values PULMONARY #Pulmonary arterial hypertension #Productive cough/wheezing, likely 2/2 Rt HF ::Pt currently without O2 requirements ::No overt sings of PNA on CXR ::Influenza A/B and Covid negative PLAN: - working up as above - Strict I/O and daily weights - Sputum cultures sent - may require lungs transplant -Utox positive for opiate, HOWEVER, patient received 4 mg of IV morphine (06/03 at 2200) less than 48 hours before utox collected (06/05 at 1154) RENAL/ #MAXIMO on CKD ::Unclear etiology for CKD, but may also be in line with underlying autoimmune etiology PLAN: -Avoiding nephrotoxins -Fluid resuscitation prior to contrast GI #Elevated liver enzymes, cholestatic pattern, likely cardiohepatic ::AST 17, ALT 13, alk phos 281, R-factor 0.1 ::mild RUQ pain, Lazar's sign negative on exam ::Positive hepatitis C antibody, negative RNA -RUQ with hepatomegaly, splenomeagly -improving with PAH treatment ID #LLE cellulitis #C/f URI PLAN: -Sent blood, sputum, and wound cultures -Resp viral panel negative -Abx coverage initially with IV Vanc/Zosyn -Wound culture w/ susceptibilities: MSSA and Enterobacter cloacae complex (both susceptible to Bactrim) -06/08: Abx switched to Bactrim -Consult placed to wound care MSK/DERM #CREST/IcSSC PLAN: -autoimmune/connective tissue workup as above -rheum onboard: no indication for immunosuppression therapy, symptomatic tx as needed -consider PPI if patient develops GERD sx F: PRN E: PRN N: Regular Adult A: PIVs GI ppx: None DVT ppx: SQH Code status: Full (confirmed on admission) NOK: Rocio Sánchez [phone] Johnny Guerrero DO Internal Medicine PGY-1 Associated attestation - Tanya Willis DO - 06/10/2023 2:00 PM EDT Brief Attending Summary: Ms. Smith is a 37yo female with history of Raynaud's with multiple chronic nonhealing wounds, CKD and DM2 (not requiring treatment) presenting as a transfer from OSH for decompensated RV failure due to likely PAH. 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 -Up-titrate velitri to 4ng/kg/min, can up-titrate q6h as tolerated. -Wean Butch -Dobutamine for ionotropic support, up-titrate based on Mulvane numbers -q6h Bishop -Hold diuresis, PCWP likely high from poor forward flow rather than true volume overload. Can consider diuresis after PA pressures improved if any further concerns for volume overload #MAXIMO on CKD - improving with improvex CO, likely cardio-renal. UA with no blood or protein -Due to cardiogenic shock, strict I/O, trend RFP with shock management #Acute hepatic congestion due to RV failure - resolved -Trend LFTs #Likely CREST - anti-centromere + -Appreciate rheum input, no indication for immunosuppression in CREST. -Initiate PPI #Raynaud's due to above -Will likely improve with Velitri initiation #Cellulitis - Enterobacter and MSSA -Follow up sensitivities, change atbx based on susceptibilities -Wound care c/s #DM2 - diet controlled -SSI, goal glucose 140-180 I have reviewed and evaluated the most recent data and results, personally examined the patient, and formulated the plan of care as presented above. This patient was critically ill and required continued critical care treatment. Teaching and any separately billable procedures are not included in the time calculation. Billing Provider Critical Care Time: 40 minutes Vancomycin Dosing by Pharmacy- Cessation of Therapy Consult to pharmacy for vancomycin dosing has been discontinued by the prescriber, pharmacy will sign off at this time. Please call pharmacy if there are further questions or re-enter a consult if vancomycin is resumed. Rebeca Sharp PharmD Vancomycin Dosing by Pharmacy- FOLLOW UP Jayna Smith is a 37 y.o. year old female who Pharmacy has been consulted for vancomycin dosing for cellulitis, skin and soft tissue. Based on the patient's indication and renal status this patient is being dosed based on a goal AUC of 400-600. Renal function is currently stable. Current vancomycin dose: 1000 mg given every 24 hours Estimated vancomycin AUC on current dose: 442 mg/L.hr Visit Vitals BP 97/68 Pulse 69 Temp 36.2 C (97.2 F) Resp 18 Lab Results Component Value Date CREATININE 1.21 (H) 06/09/2023 CREATININE 1.45 (H) 06/08/2023 CREATININE 1.55 (H) 06/07/2023 CREATININE 1.64 (H) 06/06/2023 Patient weight is No results found for: PTWEIGHT No results found for: CULTURE I/O last 3 completed shifts: In: 659.9 (8.1 mL/kg) [I.V.:209.9 (2.6 mL/kg); IV Piggyback:450] Out: 1300 (16 mL/kg) [Urine:1300 (0.4 mL/kg/hr)] Dosing Weight: 81 kg @IOTHISSHIFT@ Lab Results Component Value Date PATIENTTEMP 37.0 06/09/2023 PATIENTTEMP 37.0 06/09/2023 PATIENTTEMP 37.0 06/08/2023 Assessment/Plan Within goal AUC range. Continue current vancomycin regimen. This dosing regimen is predicted by [employer] to result in the following pharmacokinetic parameters: Exposure target: AUC24 (range)400-600 mg/L.hr AUC24,ss: 442 mg/L.hr Probability of AUC24 > 400: 90 % Ctrough,ss: 12.3 mg/L Probability of Ctrough,ss > 20: 0 % Probability of nephrotoxicity (Lodise GAIL 2008): 8 % The next level will be obtained on 4 at AM labs. May be obtained sooner if clinically indicated. Will continue to monitor renal function daily while on vancomycin and order serum creatinine at least every 48 hours if not already ordered. Follow for continued vancomycin needs, clinical response, and signs/symptoms of toxicity. Rebeca Sharp PharmD SW internal medicine physician assistant met with patient at bedside. See flowsheet for assessment details. Patient reports she is independent at baseline and lives at home with her significant other and her two minor children. Patient reports children are safe at home with an adult. Patient reports financial concern as she is unable to work due to current hospital admission. Patient is agreeable to receiving resources. Email sent to W to provide resources. Patient does not report additional SW needs at this time. SW will continue to follow. DANO Gallardo Jayna Smith is a 37 y.o. female on day 2 of admission presenting with Pulmonary hypertension (CMS/HCC). Subjective No acute events overnight. Patient doing well this morning, denies shortness of breath, chest pain, abdominal pain, fevers, chills, cough. Does endorse pain in her fingertips related to her Raynaud's, which she states is common. Objective Physical Exam Constitutional: General: She is not in acute distress. HENT: Mouth/Throat: Mouth: Mucous membranes are moist. Pharynx: Oropharynx is clear. Eyes: Extraocular Movements: Extraocular movements intact. Conjunctiva/sclera: Conjunctivae normal. Pupils: Pupils are equal, round, and reactive to light. Cardiovascular: Rate and Rhythm: Normal rate and regular rhythm. Heart sounds: Murmur heard. Systolic murmur is present. Comments: Murmur loudest at left sternal border. Pulmonary: Effort: Pulmonary effort is normal. Breath sounds: Normal breath sounds. Abdominal: Palpations: Abdomen is soft. Tenderness: Non-tender to palpation. Skin: General: Skin is warm and dry. Findings: Lesion present. Comments: LLE anterior tibial wound, erythema, no purulent drainage Neurological: General: No focal deficit present. Mental Status: She is alert and oriented to person, place, and time. Psychiatric: Mood and Affect: Mood normal. Behavior: Behavior normal. Last Recorded Vitals Blood pressure 115/78, pulse 68, temperature 36 C (96.8 F), temperature source Temporal, resp. rate 21, height 1.727 m (5' 8), weight 80.5 kg (177 lb 7.5 oz), last menstrual period 06/06/2023, SpO2 100 %. Intake/Output last 3 Shifts: I/O last 3 completed shifts: In: 1495.7 (18.5 mL/kg) [I.V.:45.7 (0.6 mL/kg); IV Piggyback:1450] Out: 1505 (18.6 mL/kg) [Urine:1500 (0.5 mL/kg/hr); Blood:5] Dosing Weight: 81 kg Relevant Results Results for orders placed or performed during the hospital encounter of 06/06/23 (from the past 24 hour(s)) POCT GLUCOSE Result Value Ref Range POCT Glucose 74 74 - 99 mg/dL POCT GLUCOSE Result Value Ref Range POCT Glucose 96 74 - 99 mg/dL Vancomycin Result Value Ref Range Vancomycin 14.8 5.0 - 20.0 ug/mL CBC Result Value Ref Range WBC 8.7 4.4 - 11.3 x10*3/uL nRBC 0.0 0.0 - 0.0 /100 WBCs RBC 4.84 4.00 - 5.20 x10*6/uL Hemoglobin 13.1 12.0 - 16.0 g/dL Hematocrit 41.9 36.0 - 46.0 % MCV 87 80 - 100 fL MCH 27.1 26.0 - 34.0 pg MCHC 31.3 (L) 32.0 - 36.0 g/dL RDW 15.9 (H) 11.5 - 14.5 % Platelets 185 150 - 450 x10*3/uL Renal function panel Result Value Ref Range Glucose 75 74 - 99 mg/dL Sodium 133 (L) 136 - 145 mmol/L Potassium 5.0 3.5 - 5.3 mmol/L Chloride 101 98 - 107 mmol/L Bicarbonate 20 (L) 21 - 32 mmol/L Anion Gap 17 10 - 20 mmol/L Urea Nitrogen 29 (H) 6 - 23 mg/dL Creatinine 1.45 (H) 0.50 - 1.05 mg/dL eGFR 47 (L) >60 mL/min/1.73m*2 Calcium 8.6 8.6 - 10.6 mg/dL Phosphorus 5.2 (H) 2.5 - 4.9 mg/dL Albumin 2.7 (L) 3.4 - 5.0 g/dL Magnesium Result Value Ref Range Magnesium 2.05 1.60 - 2.40 mg/dL Hepatic function panel Result Value Ref Range Albumin 2.7 (L) 3.4 - 5.0 g/dL Bilirubin, Total 1.9 (H) 0.0 - 1.2 mg/dL Bilirubin, Direct 1.0 (H) 0.0 - 0.3 mg/dL Alkaline Phosphatase 217 (H) 33 - 110 U/L ALT 36 7 - 45 U/L AST 37 9 - 39 U/L Total Protein 5.2 (L) 6.4 - 8.2 g/dL BLOOD GAS MIXED VENOUS Result Value Ref Range POCT pH, Mixed 7.30 (L) 7.33 - 7.43 pH POCT pCO2, Mixed 43 41 - 51 mm Hg POCT pO2, Mixed 41 35 - 45 mm Hg POCT SO2, Mixed 57 45 - 75 % POCT Oxy Hemoglobin, Mixed 56.0 45.0 - 75.0 % POCT Base Excess, Mixed -5.1 (L) -2.0 - 3.0 mmol/L POCT HCO3 Calculated, Mixed 21.2 (L) 22.0 - 26.0 mmol/L Patient Temperature 37.0 degrees Celsius FiO2 36 % POCT GLUCOSE Result Value Ref Range POCT Glucose 103 (H) 74 - 99 mg/dL Assessment/Plan Principal Problem: Pulmonary hypertension (CMS/HCC) 37 yo female PMH T2DM, HTN, Raynaud's, CKD, chronic L leg wound with recent surgical debridement who presented to the hospital with concerns for cellulitis and is in the MICU for further management a new diagnosis of pulmonary hypertension 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 Patient feels well overall, currently titrating Velitri with improvement in MAXIMO. Updates 06/07/22: - Increase dobutamine to 5 - Increase Velitri to 2, continue to titrate/monitor [place] numbers - Switch diet to regular given normal BG readings NEURO #YANCY CARDIOVASCULAR #Pulmonary hypertension #Severe tricuspid regurgitation ::Echo from 04/08 showing RVSP 117mm Hg, R heart enlargement with D-shaped septum in systole and diastole ::Echo on 06/04 with similar findings, PA systolic of 97mmHg, TRV 4.5 ::Pt with no history or significant risk factors for heart disease or underlying lung pathology. ::Unclear history of VTEs, could not rule out as US was limited by pain ::Troponin 17, no concern for ischemia ::CTA chest without PE ::V/Q with heterogeneity in both lungs, intermediate probability for pulm embolism. Chronic PE vs multifocal airway disease not entirely excluded PLAN: - S/p RHC with swan, LHC with Heart Failure team 06/06 -Ordered NICOLE, dsDNA, RF, anca panel, CCP, SS, scl-70, HIV, complement C3 and C4; notable for positive anti-centromere antibody -Rheumatology consulted, appreciate recs PULMONARY #Pulmonary hypertension #Productive cough/wheezing ::Most likely primary vs. type IV ::Pt currently without O2 requirements ::No overt sings of PNA on CXR ::Influenza A/B and Covid negative PLAN: -working up as above -Strict I/O and daily weights -Sputum cultures sent RENAL/ #MAXIMO on CKD ::Unclear etiology for CKD, but may also be in line with underlying autoimmune etiology PLAN: -Avoiding nephrotoxins -Fluid resuscitation prior to contrast GI #Elevated liver enzymes, cholestatic pattern ::AST 17, ALT 13, alk phos 281, R-factor 0.1 ::mild RUQ pain, Lazar's sign negative on exam ::Positive hepatitis C antibody, negative RNA PLAN: -RUQ with hepatomegaly, splenomeagly ID #LLE cellulitis #C/f URI PLAN: -Sent blood, sputum, and wound cultures -Resp viral panel -Abx coverage with IV Vanc/Zosyn, will await wound cultures for at least 48 hours before narrowing -Consult placed to wound care MSK/DERM #R hand bouton deformity and ulcer #Raynaud's #GERD ::may be in the setting of undiagnosed systemic sclerosis, RA, SLE, vasculitis. PLAN: -Sending autoimmune/connective tissue workup as above F: PRN E: PRN N: Renal A: PIVs GI ppx: None DVT ppx: SQH Code status: Full (confirmed on admission) NOK: Rocio Sánchez [phone] [place] MD Associated attestation - Tanya Willis DO - 06/08/2023 1:48 PM EDT Brief Attending Summary: Ms. Smith is a 37yo female with history of Raynaud's with multiple chronic nonhealing wounds, CKD and DM2 (not requiring treatment) presenting as a transfer from OSH for decompensated RV failure due to likely PAH. 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 -Up-titrate velitri to 2ng/kg/min, can up-titrate q6h as tolerated. To aid in unloading RV acutely, continue Butch -Dobutamine for ionotropic support, up-titrate based on [place] numbers -q6h Bishop -Hold diuresis, PCWP likely high from poor forward flow rather than true volume overload. Can consider diuresis after PA pressures improved if any further concerns for volume overload #MAXIMO on CKD - improving UA with no blood or protein -Due to cardiogenic shock, strict I/O, trend RFP with shock management #Acute hepatic congestion due to RV failure - resolved -Trend LFTs #Likely CREST - anti-centromere + -Appreciate rheum input, no indication for immunosuppression in CREST. -Initiate PPI #Raynaud's due to above -Will likely improve with Velitri initiation #Cellulitis -Continue Zosyn, follow up wound cx -Wound care c/s #DM2 - diet controlled -SSI, goal glucose 140-180 I have reviewed and evaluated the most recent data and results, personally examined the patient, and formulated the plan of care as presented above. This patient was critically ill and required continued critical care treatment. Teaching and any separately billable procedures are not included in the time calculation. Billing Provider Critical Care Time: 45 minutes Physical Therapy Therapy Communication Note Patient Name: Jayna Smith Today's Date: 06/08/2023 Discipline: Physical Therapy Missed Visit Reason: Missed Visit Reason: (patient currently on Veletri, currently being titrated; PT will hold until stable dose is met and the medical team stops titration.) Missed Time: Attempt Comment: Vancomycin Dosing by Pharmacy- FOLLOW UP Jayna Smith is a 37 y.o. year old female who Pharmacy has been consulted for vancomycin dosing for cellulitis, skin and soft tissue. Based on the patient's indication and renal status this patient is being dosed based on a goal AUC of 400-600. Renal function is currently improving. Current vancomycin dose: 750 mg given every 24 hours Estimated vancomycin AUC on current dose: 401 mg/L.hr Visit Vitals BP 107/81 Pulse 74 Temp 36.7 C (98.1 F) Resp 26 Lab Results Component Value Date CREATININE 1.45 (H) 06/08/2023 CREATININE 1.55 (H) 06/07/2023 CREATININE 1.64 (H) 06/06/2023 CREATININE 1.66 (H) 06/06/2023 Patient weight is No results found for: PTWEIGHT No results found for: CULTURE I/O last 3 completed shifts: In: 1350 (16.7 mL/kg) [IV Piggyback:1350] Out: 1205 (14.9 mL/kg) [Urine:1200 (0.4 mL/kg/hr); Blood:5] Dosing Weight: 81 kg @IOTHISSHIFT@ Lab Results Component Value Date PATIENTTEMP 37.0 06/08/2023 PATIENTTEMP 37.0 06/06/2023 Assessment/Plan Within goal random/trough level. Will increase dose to 1000 mg q24h due to patient being close to subtherapeutic and renal function improving. This dosing regimen is predicted by [employer]ight[employer] to result in the following pharmacokinetic parameters: Loading dose: N/A Regimen: 1000 mg IV every 24 hours. Start time: 11:19 on 06/08/2023 Exposure target: AUC24 (range)400-600 mg/L.hr AUC24,ss: 529 mg/L.hr Probability of AUC24 > 400: 100 % Ctrough,ss: 15.5 mg/L Probability of Ctrough,ss > 20: 1 % Probability of nephrotoxicity (Lodise GAIL 2008): 11 % The next level will be obtained on 06/08 at AM labs. May be obtained sooner if clinically indicated. Will continue to monitor renal function daily while on vancomycin and order serum creatinine at least every 48 hours if not already ordered. Follow for continued vancomycin needs, clinical response, and signs/symptoms of toxicity. Heri Swain PharmD Images from the original note were not included. Wound Care Progress Note Visit Date: 06/07/2023 Patient Name: Jayna Smith Reason for Visit: assess finger tips and Left lower leg Pertinent Labs: Albumin Date Value Ref Range Status 06/07/2023 2.9 (L) 3.4 - 5.0 g/dL Final ALBUMIN (MG/L) IN URINE Date Value Ref Range Status 11/17/2022 82.8 Not Established mg/L Final Wound Assessment: Wound 04/06/23 Other (comment) Pretibial Distal;Left (Active) Date First Assessed/Time First Assessed: 04/06/23 0858 Present on Original Admission: Yes Wound Approximate Age at First Assessment (Weeks): 104 weeks Primary Wound Type: (c) Other (comment) Location: Pretibial Wound Location Orientation: Distal... Assessments 06/07/2023 2:22 PM Wound Image Site Assessment Yellow;Sloughing;Red Diamond-Wound Assessment Edema;[place] Non-staged Wound Description Full thickness Wound Length (cm) 6.5 cm Wound Width (cm) 4 cm Wound Surface Area (cm^2) 26 cm^2 Wound Depth (cm) 0.3 cm Wound Volume (cm^3) 7.8 cm^3 Wound Healing % 19 Dressing Abdominal dressing;Kerlix/rolled gauze Dressing Changed Changed Dressing Status Clean;Dry Active Orders Date Order Priority Status Authorizing Provider 06/07/23 0722 Inpatient Consult to Wound and Ostomy Nurse Routine Active Tanya Willis DO - Reason for Consult?: Wound 06/06/23 2243 Inpatient Consult to Wound and Ostomy Nurse Routine Active Daniel Pink MD - Reason for Consult?: Wound Inactive Orders Date Order Priority Status Authorizing Provider 06/05/23 1306 Wound Care Routine Discontinued Jania Winslow PA-C - Wound Complexity: Simple - Cleanse with: Soap and Water - Cover with:: 4x4 Gauze Dressing - Cover with:: ABD Dressing - Cover with:: Kerlix - Tape with:: Compression Wrap (cast padding and kristan wrap) 04/06/23 1748 Wound Care Routine Discontinued Felicia Barbosa DPM - Wound Complexity: Simple - Cleanse with: Soap and Water - Apply:: Interdry Ag - Cover with:: 4x4 Gauze Dressing - Cover with:: ABD Dressing - Cover with:: Kerlix Wound 04/06/23 Other (comment) Ankle Left;Upper;Medial (Active) Date First Assessed/Time First Assessed: 04/06/23 0900 Present on Original Admission: Yes Primary Wound Type: (c) Other (comment) Location: Ankle Wound Location Orientation: (c) Left;Upper;Medial Assessments 06/07/2023 2:22 PM Site Assessment Red;Granulation Diamond-Wound Assessment [place] Non-staged Wound Description Full thickness Wound Length (cm) 1.5 cm Wound Width (cm) 1.5 cm Wound Surface Area (cm^2) 2.25 cm^2 Wound Depth (cm) 0.2 cm Wound Volume (cm^3) 0.45 cm^3 Wound Healing % -100 Dressing Abdominal dressing;Kerlix/rolled gauze Dressing Changed Changed Dressing Status Clean;Dry Active Orders Date Order Priority Status Authorizing Provider 06/07/23 0722 Inpatient Consult to Wound and Ostomy Nurse Routine Active Tanya Willis, - Reason for Consult?: Wound Inactive Orders Date Order Priority Status Authorizing Provider 06/05/23 1306 Wound Care Routine Discontinued Jania Winslow PA-C - Wound Complexity: Simple - Cleanse with: Soap and Water - Cover with:: 4x4 Gauze Dressing - Cover with:: ABD Dressing - Cover with:: Kerlix - Tape with:: Compression Wrap (cast padding and kristan wrap) 04/06/23 1748 Wound Care Routine Discontinued Felicia Barbosa DPM - Wound Complexity: Simple - Cleanse with: Soap and Water - Apply:: Interdry Ag - Cover with:: 4x4 Gauze Dressing - Cover with:: ABD Dressing - Cover with:: Kerlix Wound 04/06/23 Other (comment) Pretibial Distal;Left (Active) Date First Assessed/Time First Assessed: 04/06/23 0858 Present on Original Admission: Yes Wound Approximate Age at First Assessment (Weeks): 104 weeks Primary Wound Type: (c) Other (comment) Location: Pretibial Wound Location Orientation: Distal... Number of days: 62 Wound 04/06/23 Other (comment) Ankle Left;Upper;Medial (Active) Date First Assessed/Time First Assessed: 04/06/23 0900 Present on Original Admission: Yes Primary Wound Type: (c) Other (comment) Location: Ankle Wound Location Orientation: (c) Left;Upper;Medial Number of days: 62 Wound 04/06/23 Other (comment) Finger (Comment which one) Right (Active) Date First Assessed/Time First Assessed: 04/06/23 09 Present on Original Admission: Yes Wound Approximate Age at First Assessment (Weeks): (c) Primary Wound Type: (c) Other (comment) Location: (c) Finger (Comment which one) Wound Location Al... Number of days: 62 Wound 04/06/23 Other (comment) Pretibial Distal;Left (Active) Wound Image 06/07/23 142 Site Assessment Yellow;Sloughing;Red 06/07/23 142 Diamond-Wound Assessment Edema;[place] 06/07/23 142 Non-staged Wound Description Full thickness 06/07/23 142 Shape irregular/oval 06/05/23 0316 Wound Length (cm) 6.5 cm 06/07/23 142 Wound Width (cm) 4 cm 06/07/23 142 Wound Surface Area (cm^2) 26 cm^2 06/07/23 142 Wound Depth (cm) 0.3 cm 06/07/23 142 Wound Volume (cm^3) 7.8 cm^3 06/07/23 142 Wound Healing % 19 06/07/23 142 Margins Unable to assess 06/06/23 09 Drainage Description Purulent 06/06/23 2100 Drainage Amount Small 06/06/23 2100 Dressing ABD;Kerlix/rolled gauze 06/07/23 142 Dressing Changed Changed 06/07/231421 Dressing Status Clean;Dry 06/07/23 142 Wound 04/06/23 Other (comment) Ankle Left;Upper;Medial (Active) Site Assessment Red;Granulation 06/07/23 142 Diamond-Wound Assessment [place] 06/07/23 142 Non-staged Wound Description Full thickness 06/07/23 142 Shape round 06/05/23 0316 Wound Length (cm) 1.5 cm 06/07/23 1422 Wound Width (cm) 1.5 cm 06/07/23 142 Wound Surface Area (cm^2) 2.25 cm^2 06/07/23 1422 Wound Depth (cm) 0.2 cm 06/07/23 1422 Wound Volume (cm^3) 0.45 cm^3 06/07/23 142 Wound Healing % -100 06/07/23 142 Margins Unable to assess 06/06/23 0900 Drainage Description None 06/05/23 0316 Drainage Amount None 06/05/23 0316 Dressing ABD;Kerlix/rolled gauze 06/07/23 1422 Dressing Changed Changed 06/07/23 1422 Dressing Status Clean;Dry 06/07/23 1422 Wound 04/06/23 Other (comment) Finger (Comment which one) Right (Active) Wound Image 06/05/23 0411 Site Assessment Purple;Painful;Swelling 06/07/23 0800 Diamond-Wound Assessment Painful;Swelling;Purple 06/06/23 2100 Non-staged Wound Description Not applicable 06/06/23 0900 Drainage Description None 06/06/23 1500 Drainage Amount None 06/06/23 1500 Dressing Open to air 06/07/23 0800 Recommendations: Patient's finger tips are dry and stable. Would paint with betadine daily Left lower leg and ankle: Cleanse with normal saline Apply Hydrafera Ready (foam to patient) to wound bed Cover with ABD dressing Wrap with Kerlix Change every 3 days Elevate heels off bed Turn every 2 hours Wound Team Plan: Please review recommendations. If you agree place in EPIC as orders Orly Salomon RN CWON 06/07/2023 6:44 PM SOCIAL WORK NOTE YUNIOR met with team for updates. Patient presents to MICU with pulmonary HTN and possible autoimmune issue. Consults to advise on medication regime. YUNIOR attempted to assess, but off unit. Social work to follow. DEONTE Villalobos, METAL SOLDERER-S ([id number]) Child Life Assessment: Reason for Consult Discipline: Deputy Director Of Public Works Reason for Consult: Family support Referral Source: Self Total Time Spent (min): 10 minutes Patient Intervention(s) Type of Intervention Performed: Healing environment interventions Healing Environment Intervention(s): Assessment, Orientation to services (Support for children of adult patient) Session Details: Certified Deputy Director Of Public Works (CCLS) introduced child life services to patient and engaged in conversation regarding patient's children, ages 11 and 16. Patient shared ways that she has stayed connected with children and that she has spoken to them about her health status. CCLS offered additional support and resource. Patient asked questions regarding paperwork while she is off work. CCLS contacted Social Work. Child life available as needed to support children of adult patient. KARUNA Thompson, CCLS Epic Secure Chat Jayna Smith is a 37 y.o. female on day 1 of admission presenting with Pulmonary hypertension (CMS/HCC). Subjective Patient admitted overnight with no acute events. Speaking with patient, she notes that she becomes short of breath after walking across the store. States she was placed on a blood pressure medication for her SOB about 8 years ago which helped, but that she was later taken off of it due to hypotension. Objective Physical Exam Constitutional: General: She is not in acute distress. HENT: Mouth/Throat: Mouth: Mucous membranes are moist. Pharynx: Oropharynx is clear. Eyes: Extraocular Movements: Extraocular movements intact. Conjunctiva/sclera: Conjunctivae normal. Pupils: Pupils are equal, round, and reactive to light. Cardiovascular: Rate and Rhythm: Normal rate and regular rhythm. Heart sounds: Murmur heard. Systolic murmur is present. Comments: Murmur loudest at left sternal border. Pulmonary: Effort: Pulmonary effort is normal. Breath sounds: Normal breath sounds. Abdominal: Palpations: Abdomen is soft. Tenderness: There is abdominal tenderness in the right upper quadrant. Skin: General: Skin is warm and dry. Findings: Lesion present. Comments: LLE anterior tibial wound, erythema, no purulent drainage Neurological: General: No focal deficit present. Mental Status: She is alert and oriented to person, place, and time. Psychiatric: Mood and Affect: Mood normal. Behavior: Behavior normal. Last Recorded Vitals Blood pressure 118/81, pulse 72, temperature 36.3 C (97.3 F), temperature source Temporal, resp. rate 14, height 1.727 m (5' 8), weight 81 kg (178 lb 9.2 oz), last menstrual period 06/06/2023, SpO2 95 %. Intake/Output last 3 Shifts: I/O last 3 completed shifts: In: 1100 (13.6 mL/kg) [IV Piggyback:1100] Out: 600 (7.4 mL/kg) [Urine:600 (0.2 mL/kg/hr)] Weight: 81 kg Relevant Results Scheduled medications heparin (porcine), 5,000 Units, subcutaneous, q8h piperacillin-tazobactam, 3.375 g, intravenous, q6h vancomycin, 750 mg, intravenous, q24h Continuous medications sodium chloride 0.9%, 100 mL/hr PRN medications PRN medications: acetaminophen OR acetaminophen OR acetaminophen, HYDROmorphone, ondansetron, oxyCODONE, oxyCODONE, vancomycin Results for orders placed or performed during the hospital encounter of 06/06/23 (from the past 24 hour(s)) POCT GLUCOSE Result Value Ref Range POCT Glucose 119 (H) 74 - 99 mg/dL Blood Gas Venous Full Panel Result Value Ref Range POCT pH, Venous 7.34 7.33 - 7.43 pH POCT pCO2, Venous 38 (L) 41 - 51 mm Hg POCT pO2, Venous 41 35 - 45 mm Hg POCT SO2, Venous 58 45 - 75 % POCT Oxy Hemoglobin, Venous 57.1 45.0 - 75.0 % POCT Hematocrit Calculated, Venous 45.0 36.0 - 46.0 % POCT Sodium, Venous 126 (L) 136 - 145 mmol/L POCT Potassium, Venous 4.9 3.5 - 5.3 mmol/L POCT Chloride, Venous 96 (L) 98 - 107 mmol/L POCT Ionized Calicum, Venous 1.20 1.10 - 1.33 mmol/L POCT Glucose, Venous 134 (H) 74 - 99 mg/dL POCT Lactate, Venous 2.0 0.4 - 2.0 mmol/L POCT Base Excess, Venous -4.8 (L) -2.0 - 3.0 mmol/L POCT HCO3 Calculated, Venous 20.5 (L) 22.0 - 26.0 mmol/L POCT Hemoglobin, Venous 15.1 12.0 - 16.0 g/dL POCT Anion Gap, Venous 14.0 10.0 - 25.0 mmol/L Patient Temperature 37.0 degrees Celsius FiO2 21 % Hepatic function panel Result Value Ref Range Albumin 2.9 (L) 3.4 - 5.0 g/dL Bilirubin, Total 1.9 (H) 0.0 - 1.2 mg/dL Bilirubin, Direct 1.1 (H) 0.0 - 0.3 mg/dL Alkaline Phosphatase 281 (H) 33 - 110 U/L ALT 47 (H) 7 - 45 U/L AST 51 (H) 9 - 39 U/L Total Protein 5.8 (L) 6.4 - 8.2 g/dL Magnesium Result Value Ref Range Magnesium 1.99 1.60 - 2.40 mg/dL CBC and Auto Differential Result Value Ref Range WBC 11.8 (H) 4.4 - 11.3 x10*3/uL nRBC 0.0 0.0 - 0.0 /100 WBCs RBC 5.24 (H) 4.00 - 5.20 x10*6/uL Hemoglobin 14.4 12.0 - 16.0 g/dL Hematocrit 45.9 36.0 - 46.0 % MCV 88 80 - 100 fL MCH 27.5 26.0 - 34.0 pg MCHC 31.4 (L) 32.0 - 36.0 g/dL RDW 15.9 (H) 11.5 - 14.5 % Platelets 252 150 - 450 x10*3/uL Neutrophils % 75.5 40.0 - 80.0 % Immature Granulocytes %, Automated 0.8 0.0 - 0.9 % Lymphocytes % 12.5 13.0 - 44.0 % Monocytes % 8.6 2.0 - 10.0 % Eosinophils % 1.8 0.0 - 6.0 % Basophils % 0.8 0.0 - 2.0 % Neutrophils Absolute 8.91 (H) 1.20 - 7.70 x10*3/uL Immature Granulocytes Absolute, Automated 0.09 0.00 - 0.70 x10*3/uL Lymphocytes Absolute 1.48 1.20 - 4.80 x10*3/uL Monocytes Absolute 1.02 (H) 0.10 - 1.00 x10*3/uL Eosinophils Absolute 0.21 0.00 - 0.70 x10*3/uL Basophils Absolute 0.10 0.00 - 0.10 x10*3/uL Coagulation Screen Result Value Ref Range Protime 14.3 (H) 9.8 - 12.8 seconds INR 1.3 (H) 0.9 - 1.1 aPTT 34 27 - 38 seconds Lactate Result Value Ref Range Lactate 1.9 0.4 - 2.0 mmol/L Type and screen Result Value Ref Range ABO TYPE A Rh TYPE POS ANTIBODY SCREEN NEG Phosphorus Result Value Ref Range Phosphorus 4.6 2.5 - 4.9 mg/dL Basic Metabolic Panel Result Value Ref Range Glucose 117 (H) 74 - 99 mg/dL Sodium 131 (L) 136 - 145 mmol/L Potassium 5.3 3.5 - 5.3 mmol/L Chloride 99 98 - 107 mmol/L Bicarbonate 22 21 - 32 mmol/L Anion Gap 15 10 - 20 mmol/L Urea Nitrogen 33 (H) 6 - 23 mg/dL Creatinine 1.64 (H) 0.50 - 1.05 mg/dL eGFR 41 (L) >60 mL/min/1.73m*2 Calcium 8.6 8.6 - 10.6 mg/dL Rheumatoid Factor Result Value Ref Range Rheumatoid Factor 13 0 - 15 IU/mL D-dimer, Non VTE Result Value Ref Range D-Dimer Non VTE, Quant (ng/mL FEU) 7,162 (H) <=500 ng/mL FEU B-type natriuretic peptide Result Value Ref Range BNP 1,149 (H) 0 - 99 pg/mL Troponin I, High Sensitivity Result Value Ref Range Troponin I, High Sensitivity 17 0 - 34 ng/L Ammonia Result Value Ref Range Ammonia 37 16 - 53 umol/L HIV 1/2 Antigen/Antibody Screen with Reflex to Confirmation Result Value Ref Range HIV 1/2 Antigen/Antibody Screen with Reflex to Confirmation Nonreactive Nonreactive Blood Culture Specimen: Peripheral Venipuncture; Blood culture Result Value Ref Range Blood Culture Loaded on Instrument - Culture in progress Tissue/Wound Culture/Smear Specimen: Skin Lesion; Tissue/Biopsy Result Value Ref Range Tissue/Wound Culture/Smear Culture in progress Gram Stain No polymorphonuclear leukocytes seen Gram Stain No organisms seen Sars-CoV-2 and Influenza A/B PCR Result Value Ref Range Flu A Result Not Detected Not Detected Flu B Result Not Detected Not Detected Coronavirus 2018, PCR Not Detected Not Detected Anti-scleroderma antibody Result Value Ref Range Anti-SCL-70 <0.2 <1.0 AI Anti-DNA antibody, double-stranded Result Value Ref Range Anti-DNA (DS) 3.0 <5.0 IU/mL Anti-SSA Result Value Ref Range Anti-SSA <0.2 <1.0 AI Urinalysis with Reflex Microscopic Result Value Ref Range Color, Urine Yellow Light-Yellow, Yellow, Dark-Yellow Appearance, Urine Clear Clear Specific Randolph, Urine 1.025 1.005 - 1.035 pH, Urine 5.0 5.0, 5.5, 6.0, 6.5, 7.0, 7.5, 8.0 Protein, Urine 20 (TRACE) NEGATIVE, 10 (TRACE), 20 (TRACE) mg/dL Glucose, Urine Normal Normal mg/dL Blood, Urine 0.1 (1+) (A) NEGATIVE Ketones, Urine NEGATIVE NEGATIVE mg/dL Bilirubin, Urine NEGATIVE NEGATIVE Urobilinogen, Urine 2 (1+) (A) Normal mg/dL Nitrite, Urine NEGATIVE NEGATIVE Leukocyte Esterase, Urine NEGATIVE NEGATIVE Urine electrolytes Result Value Ref Range Sodium, Urine Random 10 mmol/L Sodium/Creatinine Ratio 12 Not established. mmol/g Creat Potassium, Urine Random 30 mmol/L Potassium/Creatinine Ratio 37 Not established mmol/g Creat Chloride, Urine Random <15 mmol/L Chloride/Creatinine Ratio Creatinine, Urine Random 80.3 20.0 - 320.0 mg/dL Osmolality, urine Result Value Ref Range Osmolality, Urine Random 340 200 - 1,200 mOsm/kg Microscopic Only, Urine Result Value Ref Range WBC, Urine NONE 1-5, NONE /HPF RBC, Urine NONE NONE, 1-2, 3-5 /HPF Comprehensive metabolic panel Result Value Ref Range Glucose 88 74 - 99 mg/dL Sodium 131 (L) 136 - 145 mmol/L Potassium 5.1 3.5 - 5.3 mmol/L Chloride 99 98 - 107 mmol/L Bicarbonate 21 21 - 32 mmol/L Anion Gap 16 10 - 20 mmol/L Urea Nitrogen 31 (H) 6 - 23 mg/dL Creatinine 1.55 (H) 0.50 - 1.05 mg/dL eGFR 44 (L) >60 mL/min/1.73m*2 Calcium 8.7 8.6 - 10.6 mg/dL Albumin 2.9 (L) 3.4 - 5.0 g/dL Alkaline Phosphatase 272 (H) 33 - 110 U/L Total Protein 5.6 (L) 6.4 - 8.2 g/dL AST 44 (H) 9 - 39 U/L Bilirubin, Total 2.0 (H) 0.0 - 1.2 mg/dL ALT 42 7 - 45 U/L CBC and Auto Differential Result Value Ref Range WBC 9.8 4.4 - 11.3 x10*3/uL nRBC 0.0 0.0 - 0.0 /100 WBCs RBC 5.08 4.00 - 5.20 x10*6/uL Hemoglobin 14.2 12.0 - 16.0 g/dL Hematocrit 44.2 36.0 - 46.0 % MCV 87 80 - 100 fL MCH 28.0 26.0 - 34.0 pg MCHC 32.1 32.0 - 36.0 g/dL RDW 15.8 (H) 11.5 - 14.5 % Platelets 221 150 - 450 x10*3/uL Neutrophils % 71.9 40.0 - 80.0 % Immature Granulocytes %, Automated 0.4 0.0 - 0.9 % Lymphocytes % 17.6 13.0 - 44.0 % Monocytes % 7.8 2.0 - 10.0 % Eosinophils % 1.8 0.0 - 6.0 % Basophils % 0.5 0.0 - 2.0 % Neutrophils Absolute 7.00 1.20 - 7.70 x10*3/uL Immature Granulocytes Absolute, Automated 0.04 0.00 - 0.70 x10*3/uL Lymphocytes Absolute 1.72 1.20 - 4.80 x10*3/uL Monocytes Absolute 0.76 0.10 - 1.00 x10*3/uL Eosinophils Absolute 0.18 0.00 - 0.70 x10*3/uL Basophils Absolute 0.05 0.00 - 0.10 x10*3/uL Vancomycin Result Value Ref Range Vancomycin 14.5 5.0 - 20.0 ug/mL NM Lung perfusion with spect Result Date: 06/07/2023 Interpreted By: Greyson Lim and Liller Gregory STUDY: NM LUNG PERFUSION WITH SPECT; 06/07/2023 11:06 am INDICATION: Signs/Symptoms:V/Q scan for pulmonary hypertension work-up, evaluate for PE. COMPARISON: CT angio chest 06/07/2023 ACCESSION NUMBER(S): [id number] ORDERING CLINICIAN: HUDSON GREEN TECHNIQUE: DIVISION OF NUCLEAR MEDICINE PERFUSION LUNG SCANS Multiple perfusion images of the lungs were acquired after the intravenous administration of 4.3 mCi of Tc-99m macroaggregated albumin (MAA). In addition, SPECT/CT of the chest was performed. FINDINGS: There is marked heterogeneity within the bilateral lung aguayo with multiple subsegmental/nonsegmental perfusion defects. No large segmental defect is identified. There are nonspecific non-segmental/subsegmental perfusion defects and marked heterogeneity in both lungs corresponding to intermediate probability for pulmonary embolism. Additionally, chronic PE versus multifocal airway disease not entirely excluded. The interpretation above is based on modified PIOPED II and PISAPED criteria. I personally reviewed the images/study and I agree with the findings as stated above by resident physician, Dr. Triston Olmedo. The study was interpreted at [facility] in [facility] [place]. MACRO: None Signed by: Greyson Lim 06/07/2023 11:36 AM Dictation workstation: [id number] CT abdomen pelvis w IV contrast Result Date: 06/07/2023 Interpreted By: Esequiel Mendez and Stephens Katherine STUDY: CT ABDOMEN PELVIS W IV CONTRAST; 06/07/2023 12:13 am INDICATION: Signs/Symptoms:Rule out thrombosis. COMPARISON: CT abdomen pelvis 11/28/2021 ACCESSION NUMBER(S): [id number] ORDERING CLINICIAN: DELPHINE CAIN TECHNIQUE: CT of the abdomen and pelvis was performed. Standard contiguous axial images were obtained at 3 mm slice thickness through the abdomen and pelvis. Coronal and sagittal reconstructions at 3 mm slice thickness were performed. 80 ml of contrast Omnipaque 350 were administered intravenously without immediate complication. FINDINGS: LOWER CHEST: Please see separately dictated concurrent CTA chest. ABDOMEN: LIVER: The liver is slightly nodular in contour and heterogeneously enhancing. The IVC and hepatic veins are dilated.. BILE DUCTS: The intrahepatic and extrahepatic ducts are not dilated. GALLBLADDER: Layering hyperattenuation within the gallbladder may represent sludge or vicarious excretion of contrast. No gallbladder wall thickening, pericholecystic fluid, or adjacent fat stranding to suggest acute cholecystitis. PANCREAS: The pancreas appears unremarkable without evidence of ductal dilatation or masses. SPLEEN: The spleen is enlarged measuring 12.9 cm in craniocaudal extension, similar to prior. ADRENAL GLANDS: Bilateral adrenal glands appear normal. KIDNEYS AND URETERS: The kidneys are normal in size and enhance symmetrically. No hydroureteronephrosis or nephroureterolithiasis is identified. PELVIS: BLADDER: Contrast opacifies the urinary bladder. No bladder wall thickening, filling defect, or diverticulum. REPRODUCTIVE ORGANS: The uterus is present. Re-demonstration of a 7.5 x 7.3 x 6.9 cm cystic structure posterior to the uterus may represent an ovarian cyst (series 501, image 118 and series 2, image 66). BOWEL: The stomach is unremarkable. The small and large bowel are normal in caliber and demonstrate no wall thickening. The appendix appears normal. VESSELS: The aorta and IVC appear normal. PERITONEUM/RETROPERITONEUM/LYMPH NODES: Aunmz-qz-fkdpznru volume abdominopelvic ascites. No loculated fluid collection or pneumoperitoneum. No abdominopelvic lymphadenopathy is present. BONES AND ABDOMINAL WALL: No suspicious osseous lesions are identified. Mild body wall edema. Prominent vascular collaterals are noted in the inguinal regions. 1. Slightly nodular contour of the liver, which is new compared to 2022 CT. Splenomegaly measuring up to 12.9 cm, minimally increased compared to 2022 CT. Findings can be secondary to hepatic venous congestion in the setting of cardiomegaly. Correlation with liver function tests is recommended. 2. Findings compatible with volume overload including pafvq-kw-ugcveolv volume abdominopelvic ascites and body wall edema. 3. Re-demonstration of a 7.5 cm left posterolateral pelvic cystic lesion likely corresponding to left ovarian/adnexal cyst seen on 04/24/2023 ultrasound. 4. Additional findings as described above. I personally reviewed the images/study and I agree with Ellen Ratliff DO's (resident assistant) findings as stated. This study was interpreted at [facility], [place], [place]. MACRO: None Signed by: Esequiel Mendez 06/07/2023 10:33 AM Dictation workstation: [id number] CT angio chest for pulmonary embolism Result Date: 06/07/2023 Interpreted By: Osvaldo Moran and Stephens Katherine STUDY: CT ANGIO CHEST FOR PULMONARY EMBOLISM; 06/07/2023 12:13 am INDICATION: Signs/Symptoms:rule out PE. COMPARISON: Chest radiograph dated 06/06/2023 ACCESSION NUMBER(S): [id number] ORDERING CLINICIAN: DELPHINE CAIN TECHNIQUE: Helical data acquisition of the chest was obtained after intravenous administration of 80 mL Omnipaque 350, as per PE protocol. Images were reformatted in coronal and sagittal planes. Axial and coronal maximum intensity projection (MIP) images were created and reviewed. FINDINGS: POTENTIAL LIMITATIONS OF THE STUDY: None HEART AND VESSELS: There are no discrete filling defects within main pulmonary artery and its branches to suggest acute pulmonary embolism. Main pulmonary artery is dilated measuring 3.7 cm. The thoracic aorta normal in course and caliber.Near non-opacification of thoracic aorta precludes assessment for acute aortic pathology. No coronary artery calcifications are seen. Please note, the study is not optimized for evaluation of coronary arteries. The right ventricle and atrium are enlarged compatible with history of pulmonary hypertension and tricuspid regurgitation.Asymmetric enlargement of the right ventricle with reflux of contrast into the IVC. There is no pericardial effusion seen. MEDIASTINUM AND SELVIN, LOWER NECK AND AXILLA: The visualized thyroid gland is within normal limits. No evidence of thoracic lymphadenopathy by CT criteria. Esophagus appears within normal limits as seen. LUNGS AND AIRWAYS: The trachea and central airways are patent. No endobronchial lesion is seen. Diffuse mosaic attenuation. Area of linear ground-glass opacity in the left lower lobe likely represents atelectasis. Focal area of tree-in-bud nodularity in the right lower lobe (see series 404, images 191-197). 4 mm solid nodule in the right lower lobe on image 163. Additional scattered sub-6 mm pulmonary nodules. The bilateral lungs are clear without evidence of focal consolidation, pleural effusion, or pneumothorax. UPPER ABDOMEN: Please see separately dictated concurrent CT abdomen pelvis. CHEST WALL AND OSSEOUS STRUCTURES: Chest wall is within normal limits. No acute osseous pathology.There are no suspicious osseous lesions. 1. No evidence of acute pulmonary embolism. 2. Findings compatible with history of pulmonary hypertension and elevated right-sided heart pressures including dilated main pulmonary artery, asymmetric enlargement of the right atrium and ventricle, and reflux of contrast into the IVC. 3. Focal area of tree-in-bud nodularity in the right lower lobe is consistent with an infectious or inflammatory bronchiolitis. 4. Diffuse mosaic attenuation which is most likely on the basis of small vessels disease given known pulmonary hypertension. Underlying small airways/reactive airways disease is a differential consideration in the appropriate clinical setting 5. Please see separately dictated concurrent CT abdomen pelvis. I personally reviewed the images/study and I agree with Ellen Ratliff DO's (resident assistant) findings as stated. This study was interpreted at [place], [place]. MACRO: None Signed by: Osvaldo Moran 06/07/2023 10:28 AM Dictation workstation: [id number] XR chest 1 view Result Date: 06/07/2023 Interpreted By: Osvaldo Moran, STUDY: XR CHEST 1 VIEW; 06/06/2023 8:48 pm INDICATION: Signs/Symptoms:Cough/SOB. COMPARISON: None. ACCESSION NUMBER(S): [id number] ORDERING CLINICIAN: DELPHINE CAIN FINDINGS: AP radiograph of the chest was provided. CARDIOMEDIASTINAL SILHOUETTE: The cardiac silhouette is enlarged as is the main pulmonary artery contour and right pulmonary artery shadow. LUNGS: Lungs are clear. ABDOMEN: No remarkable upper abdominal findings. BONES: No acute osseous changes. 1. Enlargement of the cardiac silhouette may indicate underlying cardiomegaly versus pericardial effusion. Correlate with echocardiography. 2. Enlargement of the main pulmonary artery contour as well as the right pulmonary artery shadow. Correlate with concern for pulmonary hypertension. MACRO: None Signed by: Osvaldo Moran 06/07/2023 9:52 AM Dictation workstation: [id number] MR foot left wo IV contrast Result Date: 06/06/2023 Interpreted By: Esmer Medrano, STUDY: MRI of the left tibia and fibula without contrast. MRI of the left forefoot with out IV contrast INDICATION: Signs/Symptoms:r/o osteo COMPARISON: Left foot radiographs dated 06/05/2023. ACCESSION NUMBER(S): [id number]; [id number] ORDERING CLINICIAN: JANIA WINSLOW TECHNIQUE: Multiplanar multisequence MRI of the left forefoot was performed without intravenous contrast. Multiplanar multisequence MRI of the left tibia and fibula was performed without intravenous contrast. FINDINGS: Left Tibia and Fibula: OSSEOUS STRUCTURES: No fracture or dislocation is evident. Bone marrow signal intensity is within normal limits. No marrow signal abnormality of the tibia and fibula including the region underlying the ulcer described below. MUSCLES, TENDONS, AND LIGAMENTS: The visualized muscles and tendons are intact without loss of normal muscle morphology, intramuscular fluid collections, or fascial plane fluid. Ligaments are not well assessed on this examination. JOINTS: No joint effusion is evident within the knee or ankle joints. SOFT TISSUES: There is a shallow soft tissue ulcer in the anterior aspect of the distal tibia measuring a proximally at least 3.5 cm in transverse and 6.1 cm in craniocaudal dimensions. There is diffuse reticular pattern fluid infiltration of the subcutaneous fat of the lower leg. There is mild skin thickening in the posterior and posteromedial aspect of the lower leg. No confluent fluid signal abnormality to suggest abscess formation. Left forefoot: Soft tissues: Mild diffuse skin thickening with subcutaneous fluid compatible with reported history of cellulitis. No confluent fluid signal intensity structure to suggest abscess. Ligaments: The Lisfranc ligament is intact. There is no evidence of plantar plate injury. Tendons: The visualized flexor and extensor tendons are intact. No evidence of tenosynovitis. Muscles: Intact. No evidence of muscular atrophy or edema. Bones: No acute fracture or aggressive osseous lesion. Miscellaneous: The visualized plantar fascia appears within normal limits. No evidence of a Puga's neuroma. The visualized soft tissues appear within normal limits. Left tibia and fibula: 1. Prominent shallow soft tissue ulcer in the anterior aspect of the distal tibia. Findings suggesting diffuse cellulitis of the lower leg involving the posterior/medial aspect. 2. No evidence of abscess or osteomyelitis. Left forefoot: 1. Diffuse cellulitis of the forefoot without abscess or osteomyelitis. Signed by: Esmer Medrano 06/06/2023 4:48 PM Dictation workstation: [id number] MR tibia fibula left wo IV contrast Result Date: 06/06/2023 Interpreted By: Esmer Medrano, STUDY: MRI of the left tibia and fibula without contrast. MRI of the left forefoot with out IV contrast INDICATION: Signs/Symptoms:r/o osteo COMPARISON: Left foot radiographs dated 06/05/2023. ACCESSION NUMBER(S): [id number]; [id number] ORDERING CLINICIAN: JANIA WINSLOW TECHNIQUE: Multiplanar multisequence MRI of the left forefoot was performed without intravenous contrast. Multiplanar multisequence MRI of the left tibia and fibula was performed without intravenous contrast. FINDINGS: Left Tibia and Fibula: OSSEOUS STRUCTURES: No fracture or dislocation is evident. Bone marrow signal intensity is within normal limits. No marrow signal abnormality of the tibia and fibula including the region underlying the ulcer described below. MUSCLES, TENDONS, AND LIGAMENTS: The visualized muscles and tendons are intact without loss of normal muscle morphology, intramuscular fluid collections, or fascial plane fluid. Ligaments are not well assessed on this examination. JOINTS: No joint effusion is evident within the knee or ankle joints. SOFT TISSUES: There is a shallow soft tissue ulcer in the anterior aspect of the distal tibia measuring a proximally at least 3.5 cm in transverse and 6.1 cm in craniocaudal dimensions. There is diffuse reticular pattern fluid infiltration of the subcutaneous fat of the lower leg. There is mild skin thickening in the posterior and posteromedial aspect of the lower leg. No confluent fluid signal abnormality to suggest abscess formation. Left forefoot: Soft tissues: Mild diffuse skin thickening with subcutaneous fluid compatible with reported history of cellulitis. No confluent fluid signal intensity structure to suggest abscess. Ligaments: The Lisfranc ligament is intact. There is no evidence of plantar plate injury. Tendons: The visualized flexor and extensor tendons are intact. No evidence of tenosynovitis. Muscles: Intact. No evidence of muscular atrophy or edema. Bones: No acute fracture or aggressive osseous lesion. Miscellaneous: The visualized plantar fascia appears within normal limits. No evidence of a Puga's neuroma. The visualized soft tissues appear within normal limits. Left tibia and fibula: 1. Prominent shallow soft tissue ulcer in the anterior aspect of the distal tibia. Findings suggesting diffuse cellulitis of the lower leg involving the posterior/medial aspect. 2. No evidence of abscess or osteomyelitis. Left forefoot: 1. Diffuse cellulitis of the forefoot without abscess or osteomyelitis. Signed by: Esmer Medrano 06/06/2023 4:48 PM Dictation workstation: [id number] Transthoracic Echo (TTE) Complete Result Date: 06/06/2023 [place] [address] [id number], TRANSTHORACIC ECHOCARDIOGRAM REPORT Patient Name: JAYNA Teresa Physician: [id number] Emre Silverio MD Study Date: 06/06/2023 Ordering Provider: [id number] MELISSA ESQUIVEL MRN/PID: [id number] Fellow: Nurse: Rosalia Galvin RN Date of /Age: 8 1985 / 37 years [employer] Teacher: Monty Martin RDCS Gender: F Additional Staff: Height: 170.18 cm Admit Date: 06/05/2023 Weight: 80.74 kg Admission Status: Inpatient - Routine BSA / BMI: 1.92 m2 / 27.88 kg/m2 Department Location: [address] Blood Pressure: 128 /91 mmHg Study Type: TRANSTHORACIC ECHO (TTE) COMPLETE Diagnosis/ICD: Pulmonary hypertension, unspecified-I27.20 CPT Codes: Echo Complete w Full Doppler-07370 Study Detail: The following Echo studies were performed: 2D, M-Mode, Doppler and color flow. Definity used as a contrast agent for endocardial border definition. Total contrast used for this procedure was 1.50cc mL via IV push. PHYSICIAN INTERPRETATION: Left Ventricle: Left ventricular systolic function is normal, with an estimated ejection fraction of 65%. There are no regional wall motion abnormalities. The left ventricular cavity size is normal. There is mild left ventricular hypertrophy. Spectral Doppler shows an impaired relaxation pattern of left ventricular diastolic filling. Left Atrium: The left atrium is normal in size. Right Ventricle: The right ventricle is severely enlarged. There is severely reduced right ventricular systolic function. Right Atrium: The right atrium is severely dilated. Aortic Valve: The aortic valve is trileaflet. There is no evidence of aortic valve regurgitation. The peak instantaneous gradient of the aortic valve is 3.4 mmHg. The mean gradient of the aortic valve is 2.0 mmHg. Mitral Valve: The mitral valve is normal in structure. There is no evidence of mitral valve regurgitation. Tricuspid Valve: The tricuspid valve is structurally normal. There is severe tricuspid regurgitation. Pulmonic Valve: The pulmonic valve is structurally normal. There is moderate pulmonic valve regurgitation. Pericardium: There is a small pericardial effusion. Aorta: The aortic root is normal. Systemic Veins: The inferior vena cava appears dilated. There is less than 50% IVC collapse with inspiration. CONCLUSIONS: 1. Left ventricular systolic function is normal with a 65% estimated ejection fraction. 2. Spectral Doppler shows an impaired relaxation pattern of left ventricular diastolic filling. 3. D-shaped septum in systole and diastole consistent with right ventricular pressure and volume overload. 4. Severely enlarged right ventricle. 5. There is severely reduced right ventricular systolic function. 6. The right atrium is severely dilated. 7. Severe tricuspid regurgitation. 8. Moderate pulmonic valve regurgitation. 9. Calculated pulmonary artery systolic pressure is 97 mmHg, consistent with pulmonary hypertension. 10. Ascites is incidentally noted. Recommend dedicated imaging. 11. Small pericardial effusion with no evidence of hemodynamic compromise. 12. Overall findings appear consistent with significant pulmonary hypertension, with signs of right ventricular dysfunction. 13. Findings appear similar to prior echocardiogram dated 04/09/2023. QUANTITATIVE DATA SUMMARY: 2D MEASUREMENTS: Normal Ranges: Ao Root d: 3.10 cm (2.0-3.7cm) LAs: 2.60 cm (2.7-4.0cm) IVSd: 1.36 cm (0.6-1.1cm) LVPWd: 1.29 cm (0.6-1.1cm) LVIDd: 2.75 cm (3.9-5.9cm) LVIDs: 1.68 cm LV Mass Index: 61.7 g/m2 LV % FS 38.9 % LA VOLUME: Normal Ranges: LA Vol A4C: 24.5 ml (22+/-6mL/m2) LA Vol A2C: 35.1 ml LA Vol BP: 31.5 ml LA Vol Index A4C: 12.7ml/m2 LA Vol Index A2C: 18.2 ml/m2 LA Vol Index BP: 16.3 ml/m2 LA Area A4C: 11.9 cm2 LA Area A2C: 15.3 cm2 LA Major [place] A4C: 4.9 cm LA Major [place] A2C: 5.7 cm LA Volume Index: 11.8 ml/m2 LA Vol A4C: 22.6 ml LA Vol A2C: 32.5 ml LV SYSTOLIC FUNCTION BY 2D PLANIMETRY (MOD): Normal Ranges: EF-A4C View: 74.1 % (>=55%) EF-A2C View: 42.9 % EF-Biplane: 58.2 % AORTIC VALVE: Normal Ranges: AoV Vmax: 0.92 m/s (<=1.7m/s) AoV Peak P.4 mmHg (<20mmHg) AoV Mean P.0 mmHg (1.7-11.5mmHg) LVOT Max Edita: 0.72 m/s (<=1.1m/s) AoV VTI: 14.90 cm (18-25cm) LVOT VTI: 10.20 cm LVOT Diameter: 2.20 cm (1.8-2.4cm) AoV Area, VTI: 2.60 cm2 (2.5-5.5cm2) AoV Area,Vmax: 2.96 cm2 (2.5-4.5cm2) AoV Dimensionless Index: 0.68 RIGHT VENTRICLE: RV Basal 6.48 cm RV Mid 4.15 cm RV Major 9.1 cm TRICUSPID VALVE/RVSP: Normal Ranges: Peak TR Velocity: 4.54 m/s RV Syst Pressure: 85.4 mmHg (< 30mmHg) [id number] Emre Silverio MD Electronically signed on 06/06/2023 at 1:22:01 PM Final XR hand right 1-2 views Result Date: 06/06/2023 Interpreted By: Liang Robles, STUDY: XR HAND RIGHT 1-2 VIEWS 06/06/2023 10:07 am INDICATION: Signs/Symptoms:Attention 2nd and 3rd finger distal. r/o osteo COMPARISON: None. ACCESSION NUMBER(S): [id number] ORDERING CLINICIAN: JANIA WINSLOW TECHNIQUE: 2 views of the right hand including AP and lateral projections were obtained. FINDINGS: The study is limited by difficulty with patient positioning as the patient was unable to straighten there 2nd and 3rd digits. There is no evidence of acute fracture or dislocation identified. No definite osseous lytic lesions are identified. The joint spaces are well preserved throughout without significant degenerative changes. 1. No fracture or dislocation. MACRO: None. Signed by: Liang Robles 06/06/2023 10:32 AM Dictation workstation: [id number] XR foot left 3+ views Result Date: 06/05/2023 Interpreted By: Alejandro Interiano, STUDY: XR FOOT LEFT 3+ VIEWS; ; 06/05/2023 1:40 pm INDICATION: Signs/Symptoms:dog bite. COMPARISON: None. ACCESSION NUMBER(S): [id number] ORDERING CLINICIAN: FELICIA BARBOSA FINDINGS: LEFT FOOT-AP, LATERAL AND OBLIQUE VIEWS MILD DEGENERATIVE CHANGES ARE PRESENT AT THE 1ST MTP JOINT AND THE TALONAVICULAR JOINT. A SOFT TISSUE SWELLING IS PRESENT ON THE DORSAL ASPECT OF THE MID AND DISTAL FOOT. NO RADIOPAQUE FOREIGN BODY IS SEEN. NO FRACTURE. NO RADIOPAQUE FOREIGN BODY SOFT TISSUE SWELLING ON THE DORSAL ASPECT OF THE MID AND DISTAL FOOT. MACRO: None Signed by: Alejandro Interiano 06/05/2023 2:17 PM Dictation workstation: [id number] Assessment/Plan Principal Problem: Pulmonary hypertension (CMS/HCC) 37 yo female PMH T2DM, HTN, Raynaud's, CKD, chronic L leg wound with recent surgical debridement who presented to the hospital with concerns for cellulitis. Pt was recently discovered to have a heart murmur and follow-up TTE on 04/08 revealed severe dilated RA and RVSP of 117mmHg. Patient is overall feeling well, with her only symptom being mild dyspnea on exertion for an unknown duration. The findings of R sided heart failure and pulmonary hypertension with severe TR of unknown etiology. Concern for potential thromboembolic disease, undiagnosed underlying connective tissue disease. NEURO #YANCY CARDIOVASCULAR #Pulmonary hypertension #Severe tricuspid regurgitation ::Echo from 04/08 showing RVSP 117mm Hg, R heart enlargement with D-shaped septum in systole and diastole ::Echo on 06/04 with similar findings, PA systolic of 97mmHg, TRV 4.5 ::Pt with no history or significant risk factors for heart disease or underlying lung pathology. ::Unclear history of VTEs, could not rule out as US was limited by pain ::Troponin 17, no concern for ischemia ::CTA chest without PE ::V/Q with heterogeneity in both lungs, intermediate probability for pulm embolism. Chronic PE vs multifocal airway disease not entirely excluded PLAN: -RHC with katherine, LHC with Heart Failure team (HF team onboard) -Warrants workup for underlying autoimmune/connective tissue disease -Ordered NICOLE, dsDNA, RF, anca panel, CCP, SS, scl-70, HIV, complement C3 and C4 -Rheumatology consulted, appreciate recs PULMONARY #Pulmonary hypertension #Productive cough/wheezing ::Most likely primary vs. type IV ::Pt currently without O2 requirements ::No overt sings of PNA on CXR ::Influenza A/B and Covid negative PLAN: -working up as above -Strict I/O and daily weights -Sputum cultures sent RENAL/ #MAXIMO on CKD ::Unclear etiology for CKD, but may also be in line with underlying autoimmune etiology PLAN: -Avoiding nephrotoxins -Fluid resuscitation prior to contrast GI #Elevated liver enzymes, cholestatic pattern ::AST 17, ALT 13, alk phos 281, R-factor 0.1 ::mild RUQ pain, Lazar's sign negative on exam ::Positive hepatitis C antibody PLAN: -Ordered RUQ ultrasound ID #LLE cellulitis #C/f URI PLAN: -Sent blood, sputum, and wound cultures -Resp viral panel -Abx coverage with IV Vanc/Zosyn -Consult placed to wound care MSK/DERM #R hand bouton deformity and ulcer #Raynaud's #GERD ::may be in the setting of undiagnosed systemic sclerosis, RA, SLE, vasculitis. PLAN: -Sending autoimmune/connective tissue workup as above F: PRN E: PRN N: Renal/Diabetic after heart cath A: PIVs GI ppx: None DVT ppx: SQH Code status: Full (confirmed on admission) NOK: Rocio Sánchez [phone] Dispo: 37F PMH T2DM, HTN, Raynaud's, CKD, chronic L leg wound with recent surgical debridement being treated for LLE cellulitis and transferred to [facility] for workup and treatment of pulm HTN and RHF. LHC/RHC with Katherine via HF team. Rheum onboard for history suspicious for underlying autoimmune disorder. Johnny Guerrero DO Internal Medicine PGY-1 Associated attestation - Tanya Willis DO - 06/07/2023 3:43 PM EDT Brief Attending Summary: Ms. Smith is a 37yo female with history of Raynaud's with multiple chronic nonhealing wounds, CKD and DM2 (not requiring treatment) presenting as a transfer from OSH for decompensated RV failure due to likely PAH. 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 -Will get consent for initiation of Velitri (currently lethargic post cath, will discuss when pt more awake). To aid in unloading RV acutely, will initiate Butch -Dobutamine for ionotropic support -q6h Bishop -Hold diuresis, PCWP likely high from poor forward flow. Can consider diuresis after PA pressures improved if any further concerns for volume overload #MAXIMO on CKD - UA with no blood or protein -Due to cardiogenic shock, strict I/O, trend RFP with shock management #Acute hepatic congestion due to RV failure -Trend LFTs #Likely scleroderma v CREST -Add on anti-Radha, anti-BUSINESS PROCESS REPRESENTATIVE, extended myositis panel and anti centromere -Rheum consult given systemic manifestations, will likely need immunosuppression for autoimmune disease #Raynaud's due to above -Will likely improve with Velitri initiation #Cellulitis -Continue Zosyn, follow up wound cx -Wound care c/s #DM2 - diet controlled -SSI, goal glucose 140-180 I have reviewed and evaluated the most recent data and results, personally examined the patient, and formulated the plan of care as presented above. This patient was critically ill and required continued critical care treatment. Teaching and any separately billable procedures are not included in the time calculation. Billing Provider Critical Care Time: 45 minutes Occupational Therapy Therapy Communication Note Patient Name: Jayna Smith Today's Date: 06/07/2023 Discipline: Occupational Therapy Missed Visit Reason: Missed Visit Reason: (Patient off unit for heart cath; will attempt OT next visit as appropriate.) Missed Time: Attempt Comment: Anny Vázquez OTR/L Inpatient Occupational Therapist Rehab Office: [phone] Pharmacy Admission Order Reconciliation Review Jayna Smith is a 37 y.o. female admitted for Pulmonary hypertension ([facility]). Pharmacy reviewed the patient's unreconciled admission medications. Prior to admission medications that were reviewed and acted on by the pharmacist include: Acetaminophen Augmentin Etodolac These medications have been reconciled. Any other unreconcilied medications have been addressed and will be ordered or held by the patient's medical team. Medications addressed by the pharmacist may be added or changed by the patient's medical team at any time. Christel Gonzalez PharmD Transitions of Care Pharmacist [facility] Please reach out via Secure Chat for questions, or if no response call [phone] Pharmacy Medication History Review Jayna Smith is a 37 y.o. female admitted for Pulmonary hypertension ([facility]). Pharmacy reviewed the patient's lnbqs-pu-oinwzcunu medications and allergies for accuracy. The list below reflects the updated LAUNDRY ROUTE DRIVER list. Comments regarding how patient may be taking medications differently can be found in the Admit Orders Activity Prior to Admission Medications Prescriptions Last Dose Informant acetaminophen (Tylenol) 500 mg tablet Sig: Take 2 tablets (1,000 mg) by mouth every 6 hours if needed for mild pain (1 - 3). amoxicillin-pot clavulanate (Augmentin) 875-125 mg tablet Sig: Take 1 tablet by mouth every 12 hours for 7 days. *Did not product picker yet etodolac (Lodine) 400 mg tablet Sig: Take 1 tablet (400 mg) by mouth 2 times a day for 7 days. *Did not product picker yet Facility-Administered Medications: None The list below reflects the updated allergy list. Please review each documented allergy for additional clarification and justification. Allergies Reviewed by Christel Gonzalez PharmD on 06/07/2023 Severity Reactions Comments Amlodipine High Swelling Patient accepts M2B at discharge. Pharmacy has been updated to [facility] pharmacy. Sources used: Pharmacy dispense history, OARRs, patient interview (ok historian-familiar with drug name, and frequency), and primary care note from 04/11 Below are additional concerns with the patient's LAUNDRY ROUTE DRIVER list. -Pt indicated that she does not take other medications often- if available will take as needed. Other medications previously listed: vitamin C/zinc as needed if she started feeling sick. Vitamin D on occasion in the winter. Prilosec if experiencing acid reflux. Pt could not remember the last time she took these medications. Christel Gonzalez PharmD, [facility] Transitions of Care Pharmacist [facility] Please reach out via Secure Chat for questions, or if no response call [employer] or [facility] Therapy Communication Note Patient Name: Jayna Smith Today's Date: 06/07/2023 Discipline: Physical Therapy Missed Visit Reason: Missed Visit Reason: (going off floor for heart cath at this time; PT will re-attempt as time and schedule allows and as medically appropriate.) Missed Time: Attempt Comment: Vancomycin Dosing by Pharmacy- Cessation of Therapy Consult to pharmacy for vancomycin dosing has been discontinued by the prescriber, pharmacy will sign off at this time. Please call pharmacy if there are further questions or re-enter a consult if vancomycin is resumed. Heri Swain PharmD documented in this encounter [facility] Work Phone: 06-19-2023 Consult note Formatting of th is note is different from the original. Consults Reason For Consult Right foot pain; concern for gout vs septic joint History Of Present Illness Jayna Smith is a 37 y.o. female presenting with left leg pain. Patient was ultimately transferred to [facility] for pulmonary concerns. Patient underwent RHC/LHC during her inpatient stay. Patient is being diuresed. Of note patient is diabetic though claims borderline. Patient has a history of raynaud's as well. Podiatry has been consulted for assessment of right foot. Patient seen and examined at bedside today. States she's doing well overall but started having pain in both feet two days prior. Denies the pain occurring at night but states she's only had it a few days so she is unsure. Points to her right 1st MPJ as an area of maximal pain and her b/l forefeet as areas of diffuse pain. Denies any constitutional symptoms at this time and has no other complaints. Past Medical History She has a past medical history of Anxiety, Chlamydial infection, unspecified, Elevated LFTs (05/25/2022), GERD (gastroesophageal reflux disease), Immunization not carried out because of patient refusal, LGSIL on Pap smear of cervix (07/20/2022), Other conditions influencing health status, Other specified postprocedural states, Prediabetes, and Raynaud's disease. Surgical History She has a past surgical history that includes Cervical biopsy w/ loop electrode excision (08/17/2014); Colposcopy (05/13/2022); Mouth surgery; Cardiac catheterization (N/A, 06/08/2023); Cardiac catheterization (N/A, 06/07/2023); and Cardiac catheterization (N/A, 06/07/2023). Social History She reports that she has been smoking cigarettes. She has a 1.00 pack-year smoking history. She has never used smokeless tobacco. She reports that she does not currently use alcohol. She reports current drug use. Drug: Marijuana. Family History Family History Problem Relation Name Age of Onset No Known Problems Mother Osteoporosis Father Parkinsonism Mother's Sister Parkinsonism Maternal Grandmother Asthma Other Diabetes Other Hypertension Other Heart attack Other Allergies Amlodipine Review of Systems REVIEW OF SYSTEMS Per HPI Physical Exam Last Recorded Vitals Blood pressure 102/72, pulse 81, temperature 36.2 C (97.2 F), temperature source Temporal, resp. rate 18, height 1.727 m (5' 8), weight 76.4 kg (168 lb 6.9 oz), last menstrual period 06/06/2023, SpO2 92 %. Vasc: DP and PT pulses are faintly palpable bilateral. CFT is less than 5 seconds bilateral. Skin temperature is warm to cool proximal to distal bilateral. Mild erythema noted to right 1st MPJ. Moderate edema noted. Neuro: Light touch is intact to the foot bilateral. Protective sensation is diminished. Derm: Nails 1-5 bilateral are intact though elongated. Skin is supple with normal texture and turgor noted. Webspaces are clean, dry and intact bilateral. Full thickness ulceration to left leg noted with smaller ulceration adjacent; mostly granular base, no active drainage, mild periwound erythema, no signs acute infection. No other lesions noted. MSK: Muscle strength is 4/5 for all pedal groups tested. Ankle joint, subtalar joint ROM is full without pain or crepitus. The foot type is rectus bilateral off weight bearing. There are no structural deformities noted. Pain to palpation right medial eminence of the 1st MPJ. Pain to palpation periwound area left leg. Relevant Results Intake/Output last 3 Shifts: I/O last 3 completed shifts: In: 514.3 (6.3 mL/kg) [P.O.:480; I.V.:34.3 (0.4 mL/kg)] Out: 2650 (32.7 mL/kg) [Urine:2650 (0.9 mL/kg/hr)] Dosing Weight: 81 kg Relevant Results Lab Results Component Value Date WBC 7.0 06/19/2023 HGB 12.5 06/19/2023 HCT 39.0 06/19/2023 MCV 89 06/19/2023 PLT 180 06/19/2023 Lab Results Component Value Date GLUCOSE 95 06/19/2023 CALCIUM 9.0 06/19/2023 NA 138 06/19/2023 K 4.7 06/19/2023 CO2 26 06/19/2023 CL 101 06/19/2023 BUN 17 06/19/2023 CREATININE 1.17 (H) 06/19/2023 Lab Results Component Value Date HGBA1C 6.7 (H) 06/06/2023 Lab Results Component Value Date CRP 12.10 (H) 06/06/2023 Lab Results Component Value Date SEDRATE 22 (H) 04/26/2023 No components found for: CMP Results from last 7 days Lab Units 06/19/23 0654 06/18/23 1736 SODIUM mmol/L 138 139 POTASSIUM mmol/L 4.7 4.9 CHLORIDE mmol/L 101 101 CO2 mmol/L 26 26 BUN mg/dL 17 17 CREATININE mg/dL 1.17* 1.15* CALCIUM mg/dL 9.0 9.0 PHOSPHORUS mg/dL -- 4.5 MAGNESIUM mg/dL 1.72 1.70 BILIRUBIN TOTAL mg/dL 1.2 -- ALT U/L 20 -- AST U/L 28 -- IMAGING REVIEW: XR chest 1 view Result Date: 06/18/2023 Interpreted By: Kim Beauchamp and Ravi Shweta STUDY: XR CHEST 1 VIEW; 06/18/2023 4:35 am INDICATION: Signs/Symptoms:Monitor [place] catheter location. COMPARISON: Chest radiograph 06/16/2023, chest CT 06/07/2023 ACCESSION NUMBER(S): [id number] ORDERING CLINICIAN: JAYSON TAMAYO FINDINGS: AP radiograph of the chest was provided. Right internal jugular central venous catheter is present with distal tip overlying the lower SVC. CARDIOMEDIASTINAL SILHOUETTE: Cardiomediastinal silhouette is stable in size and configuration. LUNGS: Similar appearance of perihilar vascular prominence without brittany interstitial edema. No discernible pleural effusion or pneumothorax. ABDOMEN: No remarkable upper abdominal findings. BONES: No acute osseous changes. 1. Similar appearance of perihilar vascular prominence without brittany interstitial edema. 2. Medical devices as above. I personally reviewed the images/study and I agree with the resident findings as stated by Johanny Best MD. This study was interpreted at [facility], [place], [place]. MACRO: None Signed by: Kim Beauchamp 06/18/2023 12:01 PM Dictation workstation: [id number] XR chest 1 view Result Date: 06/16/2023 Interpreted By: Greyson Lazaro, STUDY: XR CHEST 1 VIEW; 06/16/2023 4:00 am INDICATION: Signs/Symptoms:Monitor [place] catheter location. COMPARISON: 06/15/2023. ACCESSION NUMBER(S): [id number] ORDERING CLINICIAN: JAYSON TAMAYO FINDINGS: Right subclavian line overlies the SVC. CARDIOMEDIASTINAL SILHOUETTE: Cardiomegaly versus pericardial effusion. Prominence of central pulmonary arteries and correlate with pulmonary artery hypertension. LUNGS: There is mild perihilar interstitial edema. No pneumothorax. ABDOMEN: No remarkable upper abdominal findings. BONES: No acute osseous changes. 1. Stable mild perihilar interstitial edema. 2. Cardiomegaly versus pericardial effusion and prominence of the central pulmonary arteries. Signed by: Greyson Lazaro 06/16/2023 4:13 PM Dictation workstation: [id number] Lower extremity venous duplex bilateral Result Date: 06/16/2023 Interpreted By: José Luis Knapp, and Remy Goldstein STUDY: [facility] LOWER EXTREMITY VENOUS DUPLEX BILATERAL; 06/15/2023 8:30 pm INDICATION: Signs/Symptoms:Rule out L DVT. COMPARISON: None. ACCESSION NUMBER(S): [id number] ORDERING CLINICIAN: JAYSON TAMAYO TECHNIQUE: Grayscale, color and spectral Doppler sonographic images of the bilateral lower extremity deep venous system. FINDINGS: Limited examination due to edema and overlying bandages. RIGHT: There is normal compressibility of the common femoral vein, saphenous femoral junction, profunda femoris, femoral vein and popliteal vein. The right posterior tibial and peroneal veins demonstrate normal color flow and compressibility. There is increased pulsatility of the venous waveforms throughout the right lower extremity. LEFT: There is normal compressibility of the common femoral vein, saphenous femoral junction, profunda femoris, femoral vein and popliteal vein. The left posterior tibial and peroneal veins were not well assessed. There is increased pulsatility of the venous waveforms throughout the left lower extremity. OTHER FINDINGS: None. 1. No evidence of DVT in the bilateral lower extremities, noting limited assessment of the left calf veins. 2. Pulsatile venous waveforms which can be seen in the setting of cardiac dysfunction. I personally reviewed the images/study and I agree with the findings as stated by resident physician Dr. Guanako Alberto. MACRO: None. Signed by: José Luis Knapp 06/16/2023 6:14 AM Dictation workstation: [id number] XR chest 1 view Result Date: 06/15/2023 Interpreted By: Kin Quigley and Sheng Max STUDY: XR CHEST 1 VIEW; 06/15/2023 6:52 am INDICATION: Signs/Symptoms:Monitor [place] catheter location. COMPARISON: Chest radiograph dated 06/14/2023, 06/13/2023, 06/12/2023 and CTA chest dated 06/07/2023 ACCESSION NUMBER(S): [id number] ORDERING CLINICIAN: JOHNNY GUERRERO FINDINGS: AP radiograph of the chest LINES AND DEVICES: Interval insertion of right internal jugular approach central venous catheter with its tip projecting over the lower SVC. Removal of Mulvane-Suresh catheter. CARDIOMEDIASTINAL SILHOUETTE: Stable enlargement of the cardiomediastinal silhouette. LUNGS: Similar appearance of interstitial prominence with fluid layering along the right minor fissure suggests mild pulmonary edema. Persistent small left pleural effusion. No pneumothorax. ABDOMEN: No remarkable upper abdominal findings. BONES: No acute osseous abnormality. 1. Insertion of right internal jugular approach central venous catheter with its tip projecting over the lower SVC. 2. Similar appearance of mild pulmonary edema with small left pleural effusion. I personally reviewed the images/study and I agree with the findings as stated by Dr. Lauri Chavez. This study was interpreted at [place], [place]. MACRO: None Signed by: Kin Quigley 06/15/2023 2:16 PM Dictation workstation: [id number] IR CVC tunneled Result Date: 06/14/2023 Interpreted By: Nicolas Cortez and Benza Andrew STUDY: IR CVC TUNNELED; 06/14/2023 3:33 pm INDICATION: Signs/Symptoms:Patient with significant pulmHTN needing infusion. COMPARISON: None. ACCESSION NUMBER(S): [id number] ORDERING CLINICIAN: SLY HOUSER TECHNIQUE: INTERVENTIONALIST(S): MD Orlin Smalls MD CONSENT: The patient/patient's POA/next of kin was informed of the nature of the proposed procedure. The purposes, alternatives, risks, and benefits were explained and discussed. All questions were answered and consent was obtained. RADIATION EXPOSURE: Fluoroscopy time: 2.1 min Dose: 8.03 mGy Dose Area Product (DAP): 908 mGy*cm^2 SEDATION: Moderate conscious IV sedation services (supervision of administration, induction, and maintenance) were provided by the physician performing the procedure with intravenous fentanyl 50mcg and versed 1mg. The physician was assisted by an independent trained observer, an interventional radiology nurse, in the continuous monitoring of patient level of consciousness and physiologic status. MEDICATION: None. TIME OUT: A time out was performed immediately prior to procedure start with the interventional team, correctly identifying the patient name, date of , MRN, procedure, anatomy (including marking of site and side), patient position, procedure consent form, relevant laboratory and imaging test results, antibiotic administration, safety precautions, and procedure-specific equipment needs. COMPLICATIONS: No immediate adverse events identified. FINDINGS: In the recumbent position, the patient was positioned on the angiography table. The right supraclavicular and infraclavicular cutaneous tissues were prepared and draped in usual sterile manner. The supraclavicular access site was screened with martell-scale ultrasound with subsequent subcutaneous instillation of Lidocaine 1% local anesthesia. Ultrasound images demonstrate a patent right internal jugular vein. Under direct ultrasound guidance and Seldinger/micropuncture technique, the right internal jugular vein was accessed. An ultrasound digital spot image was acquired and stored on the PACS. After confirmation of location, a 018 [place]-Mandril guidewire was inserted to secure location. The guidewire was advanced into the inferior vena cava utilizing intermittent fluoroscopy. The micro-access needle was removed over the guidewire. Utilizing a 5-on-4 coaxial dilator sheath system, upsize to a 035 guidewire was performed. Subsequent access tract dilation was performed to an eventual 10-[place] peel-away sheath dilator system. After Lidocaine 1% local anesthesia, a subcutaneous tunnel tract was created from the right infraclavicular chest to the venous access site. After continuity of the tunnel tract and venous access site was obtained, a 9.6 East Timorese Doss catheter was then placed with tract continuity and its central catheter tip(s) to reside at the cavoatrial junction. A fluoroscopic spot image of the chest was acquired in the AP projection to confirm optimal location. The catheter ports were aspirated and flushed without resistance with normal saline. The catheter ports were then charged with high-concentration heparin. The venous access site was closed and sterilely dressed. The external portions of the catheter were secured with a purse-string 2-0 polypropylene suture and sterile dressings. The patient tolerated the procedure without complication. Uncomplicated placement of a tunneled right internal jugular infraclavicular 9.6 Fr Doss catheter. The catheter is ready for immediate use. I was present for and/or performed the critical portions of the procedure and immediately available throughout the entire procedure. I personally reviewed the image(s) / study and resident interpretation. I agree with the findings as stated. Performed and dictated at [facility]. MACRO: None. Signed by: Nicolas Cortez 06/14/2023 4:57 PM Dictation workstation: [id number] XR chest 1 view Result Date: 06/14/2023 Interpreted By: Kin Quigley and Sheng Max STUDY: XR CHEST 1 VIEW; 06/14/2023 6:52 am INDICATION: Signs/Symptoms:Monitor Mulvane catheter location. COMPARISON: Chest radiograph dated 06/13/2023, 06/12/2023, 06/11/2023 and CTA chest dated 06/07/2023 ACCESSION NUMBER(S): [id number] ORDERING CLINICIAN: JOHNNY GUERRERO FINDINGS: AP radiograph of the chest LINES AND DEVICES: Right internal jugular approach Mulvane-Suresh catheter tip projects over the right pulmonary artery not significant changed from prior exam. CARDIOMEDIASTINAL SILHOUETTE: Stable enlargement of the cardiomediastinal silhouette. Prominence of the central pulmonary arteries consistent with component of pulmonary arterial hypertension. LUNGS: Similar appearance of perihilar and interstitial markings with fluid layering along the right minor fissure is suggestive of mild pulmonary edema. Persistent small left pleural effusion. No pneumothorax. ABDOMEN: No remarkable upper abdominal findings. BONES: No acute osseous abnormality. 1. Mulvane-Suresh catheter tip projects over the right pulmonary artery not significantly changed from prior exam. 2. Similar appearance of mild pulmonary edema with fluid layering along the right minor fissure and persistent small left pleural effusion. I personally reviewed the images/study and I agree with the findings as stated by Dr. Lauri Chavez. This study was interpreted at [place], [place]. MACRO: None Signed by: Kin Quigley 06/14/2023 2:16 PM Dictation workstation: [id number] XR chest 1 view Result Date: 06/13/2023 Interpreted By: Greyson Lazaro and Sheng Max STUDY: XR CHEST 1 VIEW; 06/13/2023 6:52 am INDICATION: Signs/Symptoms:Monitor Mulvane catheter location. COMPARISON: Chest radiograph dated 06/12/2023, 06/11/2023, 06/09/2023 and CTA chest dated 06/07/2023 ACCESSION NUMBER(S): [id number] ORDERING CLINICIAN: JOHNNY GUERRERO FINDINGS: AP radiograph of the chest LINES AND DEVICES: Right internal jugular approach Mulvane-Suresh catheter tip projects over the right pulmonary artery not significantly changed from prior exam. CARDIOMEDIASTINAL SILHOUETTE: Stable enlargement of the cardiomediastinal silhouette. Prominence of the central pulmonary arteries consistent with a component of pulmonary artery hypertension. LUNGS: Mild worsening of perihilar and interstitial prominence suggests mild worsening of pulmonary edema with fluid layering along the right minor fissure. Small bilateral pleural effusions. No pneumothorax. ABDOMEN: No remarkable upper abdominal findings. BONES: No acute osseous abnormality. 1. Mulvane-Suresh catheter tip projects over the right pulmonary artery not significantly changed from prior exam. 2. Mild worsening of pulmonary edema with small bilateral pleural effusions. I personally reviewed the images/study and I agree with the findings as stated by Dr. Lauri Chavez. This study was interpreted at [place], [place]. MACRO: None Signed by: Greyson Lazaro 06/13/2023 7:06 PM Dictation workstation: [id number] XR chest 1 view Result Date: 06/12/2023 Interpreted By: Greyson Lazaro and Sheng Max STUDY: XR CHEST 1 VIEW; 06/12/2023 7:05 am INDICATION: Signs/Symptoms:Monitor Mulvane catheter location. COMPARISON: Chest radiograph dated 06/11/2023 and CTA chest dated 06/07/2023 ACCESSION NUMBER(S): [id number] ORDERING CLINICIAN: JOHNNY GUERRERO FINDINGS: AP radiograph of the chest LINES AND DEVICES: Right internal jugular approach Mulvane-Suresh catheter tip projects over the right pulmonary artery not significantly changed from prior exam. CARDIOMEDIASTINAL SILHOUETTE: Stable enlargement of the cardiomediastinal silhouette. LUNGS: Similar appearance of perihilar and interstitial prominence suggestive of mild pulmonary edema. Trace left pleural effusion. No focal consolidation or pneumothorax. ABDOMEN: No remarkable upper abdominal findings. BONES: No acute osseous abnormality. 1. Right internal jugular approach Mulvane-Suresh catheter tip projects over the right pulmonary artery not significantly changed from prior exam. 2. Stable appearance of mild pulmonary edema and trace left pleural effusion. I personally reviewed the images/study and I agree with the findings as stated by Dr. Lauri Chavez. This study was interpreted at [place], [place]. MACRO: None Signed by: Greyson Lazaro 06/12/2023 5:56 PM Dictation workstation: [id number] XR chest 1 view Result Date: 06/11/2023 Interpreted By: Cuco Barry and Sheng Max STUDY: XR CHEST 1 VIEW; 06/11/2023 11:36 am INDICATION: Signs/Symptoms:check swan position. COMPARISON: Chest radiograph dated 06/09/2023, 06/08/2023, 06/06/2023 and CTA chest dated 06/07/2023 ACCESSION NUMBER(S): [id number] ORDERING CLINICIAN: HUDSON GREEN FINDINGS: AP radiograph of the chest LINES AND DEVICES: Right internal jugular approach Mulvane-Suresh catheter tip projects over the right pulmonary artery. CARDIOMEDIASTINAL SILHOUETTE: Stable enlargement of the cardiomediastinal silhouette. LUNGS: Similar appearance of perihilar and interstitial prominence suggestive of mild pulmonary edema. Persistent trace left pleural effusion. No pneumothorax. ABDOMEN: No remarkable upper abdominal findings. BONES: No acute osseous abnormality. 1. Right internal jugular approach Mulvane-Suresh catheter tip projects over the right pulmonary artery not significantly changed from prior exam. 2. Similar appearance of mild pulmonary edema with trace left pleural effusion. I personally reviewed the images/study and I agree with the findings as stated by Dr. Lauri Chavez. This study was interpreted at [place], [place]. MACRO: None Signed by: Cuco Lyons 06/11/2023 12:47 PM Dictation workstation: [id number] ECG 12 lead Result Date: 06/11/2023 Normal sinus rhythm Left atrial enlargement Incomplete right bundle branch block Right ventricular hypertrophy Cannot rule out Inferior infarct , age undetermined Anteroseptal infarct , age undetermined ST & T wave abnormality, consider lateral ischemia Abnormal ECG No previous ECGs available Confirmed by Javier Henriquez ([id number]) on 06/11/2023 10:50:27 AM ECG 12 Lead Result Date: 06/11/2023 Normal sinus rhythm Left atrial enlargement Incomplete right bundle branch block , plus right ventricular hypertrophy Possible Inferior infarct (cited on or before 10-JUN-2023) Abnormal ECG When compared with ECG of 10-JUN-2023 21:49, QT has shortened Confirmed by Javier Henriquez ([id number]) on 06/11/2023 10:49:52 AM XR abdomen 1 view Result Date: 06/10/2023 Interpreted By: Osvaldo Moran and Calo Sean-Matthew STUDY: XR ABDOMEN 1 VIEW; 06/10/2023 11:20 am INDICATION: Signs/Symptoms:nausea. COMPARISON: CT abdomen pelvis 06/07/2023 ACCESSION NUMBER(S): [id number] ORDERING CLINICIAN: RAMON WOODSON FINDINGS: AP radiograph of the abdomen. Nonobstructive bowel gas pattern. Scattered nondilated, gas-filled loops of bowel are noted. Limited evaluation of pneumoperitoneum on supine imaging, however no gross evidence of free air is noted. Osseous structures demonstrate no acute bony changes. Nonspecific, nonobstructive bowel gas pattern. I personally reviewed the images/study and I agree with the findings as stated by Rajesh Garnett MD. This study was interpreted at [facility], [place], [place]. MACRO: None Signed by: Osvaldo Dean 06/10/2023 3:23 PM Dictation workstation: [id number] Cardiac Catheterization Procedure Result Date: 06/10/2023 [facility], Animal Caretaker, [address] [place] [address] Cardiovascular Catheterization Report Patient Name: JAYNA SMITH Performing Physician: [id number] Cooper Garnett MD Study Date: 06/08/2023 Verifying Physician: [id number] Cooper Garnett MD MRN/PID: [id number] Scout Sniper/Co-scrub: Ordering Provider: [id number] TANYA WILLIS Date of /Age: 8 1985 / 37 years Fellow: [id number] Rosendo Del Cid MD Gender: F Fellow: [id number] Wil Meade MD Study: Right Heart Cath Indications: Pulmonary arterial hypetension. Appropriate Use Criteria: Resting pulmonary hypertension, determine response after initiation of drug therapy; AUC score = 7. Procedure Description Comments: Patient arrived to supervisor [facility] laboratory with 9 australian arrow sheath already in place (inserted the day prior in the supervisor cytogenetic laboratory). Patient was prepped in a sterile manner. We confirmed that the swan suresh catheter was coiled in the RA under flouroscopy. I retracted the catheter back to SVC level and then advanced the catheter withease with the balloon inflated up to wedge position. Balloon was deflated and swan suresh catheter was positioned in the PA with appropriate pressure recordings. Mulvane locked at 55cm. Hemo Personnel: + +---------+ Name Duty + +---------+ Rosalba Garnett MD, MD 1 + +---------+ Hemodynamic Pressures: +----+ +-------- --+ + +--- ------+ Site Date Time Phase Name Systolic mmHg Diastolic mmHg Mean mmHg +----+ +-------- --+ + +--- ------+ PA 06/08/2023 7:30:27 PM Rest 80 53 66 +----+ +-------- --+ + +--- ------+ Cardiac Cath Post Procedure Notes: Post Procedure Diagnosis: Pulmonary arterial hypertension. Blood Loss: Estimated blood loss during the procedure was 0 mls. Specimens Removed: Number of specimen(s) removed: none. Recommendations: Further management per MICU team. CONCLUSIONS: 1. Pulmonary arterial hypertension. ICD 10 Codes: Primary pulmonary hypertension-I27.0 CPT Codes: Right Heart Cath O2/Cardiac output without biopsy (RHC)-54344; Moderate Sedation Services 1st additional 15 minutes patient >5 years-[id number] Cooper Garnett MD Performing Physician Final XR chest 1 view Result Date: 06/09/2023 Interpreted By: Osvaldo Moran and Valdez Sheets STUDY: XR CHEST 1 VIEW; 06/09/2023 1:24 pm INDICATION: Signs/Symptoms:comfirm Mulvane cath repositioning. COMPARISON: Radiograph 06/09/[address] 06/07/2023 ACCESSION NUMBER(S): [id number] ORDERING CLINICIAN: JOHNNY GUERRERO FINDINGS: AP radiograph of the chest was provided. Right IJ Mulvane-Suresh catheter with the tip overlying the right pulmonary artery. CARDIOMEDIASTINAL SILHOUETTE: Cardiomediastinal silhouette is enlarged but stable in size and configuration. LUNGS: Trace left pleural effusion. Improved left basilar atelectasis. Redemonstration of prominent perihilar and interstitial lung markings. No pneumothorax. ABDOMEN: No remarkable upper abdominal findings. BONES: No acute osseous changes. 1. Right IJ Mulvane-Suresh catheter with tip overlying the right pulmonary artery. 2. Similar prominent perihilar and interstitial lung markings suggestive of pulmonary edema. Trace left pleural effusion. I personally reviewed the images/study and I agree with the findings as stated by Sudeep Kellogg MD. This study was interpreted at [place], [place]. MACRO: None. Signed by: Osvaldo Moran 06/09/2023 5:56 PM Dictation workstation: [id number] XR chest 1 view Result Date: 06/09/2023 Interpreted By: Greyson Lazaro and Tippareddy Charit STUDY: XR CHEST 1 VIEW; 06/09/2023 8:05 am INDICATION: Signs/Symptoms:Checking Mulvane. COMPARISON: Radiograph 06/08/2023 ACCESSION NUMBER(S): [id number] ORDERING CLINICIAN: JOHNNY GUERRERO FINDINGS: AP radiograph of the chest was provided. Right IJ Mulvane-Suresh catheter with the catheter looping in the right atrium and with the tip overlying the inferior aspect of the right atrium. CARDIOMEDIASTINAL SILHOUETTE: Cardiomediastinal silhouette is enlarged but stable in size and configuration. LUNGS: Blunting of the left costophrenic angle new from prior examination. New bandlike opacity in the left lung base likely reflecting atelectasis. Mild interval worsening of prominent perihilar and interstitial lung markings. No pneumothorax. ABDOMEN: No remarkable upper abdominal findings. BONES: No acute osseous changes. 1. Right IJ Mulvane-Suresh catheter with catheter looping in the right atrium and tip overlying the inferior aspect of the right atrium. Recommend repositioning. 2. Mild interval worsening of prominent perihilar and interstitial lung markings suggestive of worsening pulmonary edema. 3. Interval development of trace left pleural effusion. New bandlike opacity in the left lung base likely reflecting atelectasis. I personally reviewed the images/study and I agree with the findings as stated by Sudeep Kellogg MD. This study was interpreted at [place], [place]. MACRO: Sudeep Kellogg discussed the significance and urgency of this critical finding by secure chat with JOHNNY GUERRERO on 06/09/2023 at 8:55 am. (-RCF-) Findings: See findings. Signed by: Greyson Lazaro 06/09/2023 9:51 AM Dictation workstation: [id number] XR chest 1 view Result Date: 06/08/2023 Interpreted By: Kim Beauchamp and Meyers Emily STUDY: XR CHEST 1 VIEW; 06/08/2023 3:14 pm INDICATION: Signs/Symptoms:swan repositioning. COMPARISON: Chest radiograph 06/08/2023 ACCESSION NUMBER(S): [id number] ORDERING CLINICIAN: RAMON WOODSON FINDINGS: AP radiograph of the chest was provided. Interval retraction of a right IJ approach Mulvane-Suresh catheter with its tip coiled overlying the expected location of the right atrium. CARDIOMEDIASTINAL SILHOUETTE: Cardiomediastinal silhouette is stable in size and configuration. LUNGS: Perihilar prominence and increased interstitial lung markings, similar when compared to prior exam. No pleural effusion or pneumothorax. ABDOMEN: No remarkable upper abdominal findings. BONES: No acute osseous changes. 1. Similar appearance of mild perihilar and interstitial edema. 2. Interval retraction of a right IJ approach Mulvane-Suresh catheter with its tip coiled overlying the expected location of the right atrium. I personally reviewed the images/study, and I agree with the findings as stated above. This study was interpreted at [place], [place]. MACRO: None Signed by: Kim Beauchamp 06/08/2023 3:30 PM Dictation workstation: [id number] XR chest 1 view Result Date: 06/08/2023 Interpreted By: Kim Beauchamp, STUDY: XR CHEST 1 VIEW; 06/08/2023 12:45 pm INDICATION: Signs/Symptoms:concern for swan movement. COMPARISON: 06/06/2023 ACCESSION NUMBER(S): [id number] ORDERING CLINICIAN: HUDSON GREEN FINDINGS: Right IJ insertion of a Mulvane-Suresh catheter with the tip projected over the region of the right ventricle CARDIOMEDIASTINAL SILHOUETTE: Cardiomediastinal silhouette is stable in size and configuration. LUNGS: Minimal increased interstitial markings. ABDOMEN: No remarkable upper abdominal findings. BONES: No acute osseous changes. 1. Right IJ Mulvane-Suresh catheter insertion with the tip over the projection of the right ventricle. 2. Minimal interstitial edema MACRO: None Signed by: Kim Beauchamp 06/08/2023 12:56 PM Dictation workstation: [id number] US liver with doppler Result Date: 06/08/2023 Interpreted By: José Luis Knapp and Genny Ro STUDY: US LIVER WITH DOPPLER; 06/07/2023 5:21 pm INDICATION: Signs/Symptoms:RUQ pain, elevated alk phos, ascites. COMPARISON: CT abdomen and pelvis, 05/30/2023 Renal ultrasound, 12/08/2016 ACCESSION NUMBER(S): [id number] ORDERING CLINICIAN: JOHNNY GUERRERO TECHNIQUE: Multiple images of the right upper quadrant were obtained. Martell scale, color Doppler and spectral Doppler waveform analysis was performed. This examination was interpreted at [facility]. FINDINGS: Limitations: Bowel gas LIVER: The liver measures 20.7 cm and is grossly unremarkable and free of any focal lesions. GALLBLADDER: The gallbladder is nondistended, and demonstrates no evidence of gallstones, wall thickening or surrounding fluid. There is sludge within the gallbladder lumen. The gallbladder wall thickness is 0.3 cm. Sonographic Lazar's sign is negative. BILIARY SYSTEM: No evidence of intra or extrahepatic biliary dilatation is identified; the common bile duct measures 0.4 cm. DOPPLER EVALUATION: HEPATIC ARTERIES: Hepatic artery and its right and left branches RI's are estimated at 0.82, 0.73 and 0.77, respectively. PORTAL VEIN: Portal vein is patent and measures 1.2. There is normal respiratory variation. Portal vein velocities are calculated as follows: main portal vein 19.3, antegrade flow; left portal vein branch 15.8, antegrade flow; right portal vein anterior branch 11.0, antegrade flow; right portal vein posterior branch 19.6, antegrade flow. The splenic vein is also patent with a peak systolic velocity of 14.7 cm/sec at the level of the pancreatic head an 18.3 cm/sec at the level of the splenic hilum. HEPATIC VEIN: The right, middle and left hepatic veins are patent and demonstrate triphasic antegrade flow. IVC appears also patent. PANCREAS: The pancreas is poorly visualized due to overlying bowel gas. RIGHT KIDNEY: The right kidney measures 11.8 cm in length. No hydronephrosis or renal calculi are seen. SPLEEN: The spleen measures 14.0 cm and is grossly unremarkable. PERITONEUM AND RETROPERITONEUM: Abdominal ascites are present. 1. Hepatomegaly. Otherwise unremarkable ultrasound of the liver including Doppler interrogation. 2. Abdominal ascites. 3. Gallbladder sludge without evidence of cholecystitis. 4. Splenomegaly. I personally reviewed the images/study and I agree with the findings as stated by resident assistant Dr. Jia Royal. This study was interpreted at [place], [place]. 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 JAYNA SMITH is a 38 year old female who presents with diabetes, hypertension, former smoker and a non-anginal chest pain assessment pulmonary hypertension. Pulmonary hypertension. Appropriate Use Criteria: Suspected pulmonary artery hypertension/equivocal or borderline elevated estimated right ventricular systolic pressure on resting echocardiogram; AUC score = 7. Known or suspected cardiomyopathy with or without heart failure; AUC score = 7. Medical History: Stress test performed: No. CTA performed: No. Agatston accessed: No. LVEF Assessed: Yes. LVEF = 65%. Procedure Description: After infiltration with 2% Lidocaine, the right radial artery was cannulated with a modified Seldinger technique. Subsequently a 5 East Timorese sheath was placed retrograde in the right radial artery. After infiltration of local anesthetic, the right internal jugular vein was cannulated with a micropuncture technique. A 8.5 East Timorese sheath was placed in the vein. Selective coronary catheterization was performed using a 4 Fr and 5 Fr catheter(s) exchanged over a guide wire to cannulate the coronary arteries. A JL 3.5 tip catheter was used for left coronary injections. A JR 4 tip catheter was used for right coronary injections. Multiple injections of contrast were made into the left and right coronary arteries with angiograms recorded in multiple projections. Retrograde left heart catheterizion was accomplished with a 4 Fr. pigtail catheter. A single plane left ventriculogram was recorded in the 30 degree KHAN projection. The contrast dose was 15 ml injected at 10 ml/sec. The catheter was then withdrawn across the aortic valve under continuous pressure monitoring and removed. After completion of the procedure, the arterial sheath was pulled and a TR Band Radial Compression Device was utilized to obtain patent hemostasis. Post-procedure, the venous sheath was left intact and sutured in place. Coronary Angiography: The coronary circulation is right dominant. Coronary Angiography Comments: The coronary arteries are essentially normal in this right dominant system. The left main is dilated but free of disease. The LAD and diagonal branches are tortuous but otherwise unremarkable. The LCx and first large branching OM are free of disease. The large dominant RCA and all of its branches are also unremarkable. Left Main Coronary Artery: The left main coronary artery is a normal caliber vessel. The left main arises normally from the left coronary sinus of Valsalva and bifurcates into the LAD and circumflex coronary arteries. The left main coronary artery showed no significant disease or stenosis greater than 30%. Left Anterior Descending Coronary Artery Distribution: The left anterior descending coronary artery is a normal caliber vessel. The LAD arises normally from the left main coronary artery. The LAD demonstrated no significant disease or stenosis greater than 30%. Circumflex Coronary Artery Distribution: The circumflex coronary artery is a normal caliber vessel. The circumflex arises normally from the left main coronary artery and terminates in the AV groove. The circumflex revealed no significant disease or stenosis greater than 30%. Right Coronary Artery Distribution: The right coronary artery is a normal caliber vessel. The RCA arises normally from the right sinus of Valsalva. The RCA showed no significant disease or stenosis greater than 30%. Left Ventriculography: Left ventriculography revealed normal wall motion and a normal ejection fraction of 60%. There is no mitral regurgitation. Valve Findings: No aortic valve stenosis is visualized. No mitral valve insufficiency was noted. Hemo Personnel: + +---------+ Name Duty + +---------+ Akil Martinez MD, MD 1 + +---------+ Hemodynamic Pressures: Resting hemodynamics showed markedly elevated right and left heart filling pressures with a reduced Bishop cardiac index of 1.8 L/min/m . There is severe pulmonary hypertension with a PVR of 822. +----+ +---------+-------- -----+ +---+----+------ -+-------+ Site Date Time Phase Systolic mmHg Diastolic ED Mean A-Wave V-Wave Name mmHg mmH mmHg mmHg mmHg g +----+ +---------+-------- -----+ +---+----+------ -+-------+ LVp 06/07/2023 Rest 123 20 12:56:49 PM +----+ +---------+-------- -----+ +---+----+------ -+-------+ AOp 06/07/2023 Rest 123 89 103 12:56:56 PM +----+ +---------+-------- -----+ +---+----+------ -+-------+ RA 06/07/2023 Rest 23 26 26 12:59:16 PM +----+ +---------+-------- -----+ +---+----+------ -+-------+ RV 06/07/2023 Rest 91 26 12:59:42 PM +----+ +---------+-------- -----+ +---+----+------ -+-------+ PW 06/07/2023 Rest 22 25 24 1:00:40 PM +----+ +---------+-------- -----+ +---+----+------ -+-------+ PA 06/07/2023 Rest 91 41 59 1:00:59 PM +----+ +---------+-------- -----+ +---+----+------ -+-------+ Oxygen Saturation %: + + + Sample Site O2 Sat (%) + + + AO 97 + + + PA 60 + + + AO 97 + + + PA 60 + + + Cardiac Outputs: +----+---+---+ CI CO +----+---+---+ BISHOP 1.8 3.6 +----+---+---+ Vascular Resistance Calculated Values (Wood Units): +---+----+ SVR 1778 +---+----+ PVR 822 +---+----+ Complications: No in-lab complications observed. Cardiac Cath Post Procedure Notes: Post Procedure Diagnosis: Normal coronary arteries in a right dominant system. Blood Loss: Estimated blood loss during the procedure was 30 mls. Specimens Removed: Number of specimen(s) removed: none. CONCLUSIONS: 1. Normal coronary arteries in a right dominant system. 2. Normal left ventricular systolic function. 3. Severe pulmonary hypertension. ICD 10 Codes: Primary pulmonary hypertension-I27.0 CPT Codes: Right & Left Heart Cath w/ventriculography/Coronary angio ([facility]HC)([facility])-57173; Moderate Sedation Services 1st additional 15 minutes patient >5 years-[id number]; Moderate Sedation Services 2nd additional 15 minutes patient >5 years-[id number] Akil Martinez MD Performing Physician Final NM Lung perfusion with spect Result Date: 06/07/2023 Interpreted By: Greyson Lim and Liller Gregory STUDY: NM LUNG PERFUSION WITH SPECT; 06/07/2023 11:06 am INDICATION: Signs/Symptoms:V/Q scan for pulmonary hypertension work-up, evaluate for PE. COMPARISON: CT angio chest 06/07/2023 ACCESSION NUMBER(S): [id number] ORDERING CLINICIAN: HUDSON GREEN TECHNIQUE: DIVISION OF NUCLEAR MEDICINE PERFUSION LUNG SCANS Multiple perfusion images of the lungs were acquired after the intravenous administration of 4.3 mCi of Tc-99m macroaggregated albumin (MAA). In addition, SPECT/CT of the chest was performed. FINDINGS: There is marked heterogeneity within the bilateral lung aguayo with multiple subsegmental/nonsegmental perfusion defects. No large segmental defect is identified. There are nonspecific non-segmental/subsegmental perfusion defects and marked heterogeneity in both lungs corresponding to intermediate probability for pulmonary embolism. Additionally, chronic PE versus multifocal airway disease not entirely excluded. The interpretation above is based on modified PIOPED II and PISAPED criteria. I personally reviewed the images/study and I agree with the findings as stated above by resident physician, Dr. Triston Olmedo. The study was interpreted at [facility] in [facility] [place]. MACRO: None Signed by: Greyson Lim 06/07/2023 11:36 AM Dictation workstation: [id number] CT abdomen pelvis w IV contrast Result Date: 06/07/2023 Interpreted By: Esequiel Mendez and Stephens Katherine STUDY: CT ABDOMEN PELVIS W IV CONTRAST; 06/07/2023 12:13 am INDICATION: Signs/Symptoms:Rule out thrombosis. COMPARISON: CT abdomen pelvis 11/28/2021 ACCESSION NUMBER(S): [id number] ORDERING CLINICIAN: DELPHINE CAIN TECHNIQUE: CT of the abdomen and pelvis was performed. Standard contiguous axial images were obtained at 3 mm slice thickness through the abdomen and pelvis. Coronal and sagittal reconstructions at 3 mm slice thickness were performed. 80 ml of contrast Omnipaque 350 were administered intravenously without immediate complication. FINDINGS: LOWER CHEST: Please see separately dictated concurrent CTA chest. ABDOMEN: LIVER: The liver is slightly nodular in contour and heterogeneously enhancing. The IVC and hepatic veins are dilated.. BILE DUCTS: The intrahepatic and extrahepatic ducts are not dilated. GALLBLADDER: Layering hyperattenuation within the gallbladder may represent sludge or vicarious excretion of contrast. No gallbladder wall thickening, pericholecystic fluid, or adjacent fat stranding to suggest acute cholecystitis. PANCREAS: The pancreas appears unremarkable without evidence of ductal dilatation or masses. SPLEEN: The spleen is enlarged measuring 12.9 cm in craniocaudal extension, similar to prior. ADRENAL GLANDS: Bilateral adrenal glands appear normal. KIDNEYS AND URETERS: The kidneys are normal in size and enhance symmetrically. No hydroureteronephrosis or nephroureterolithiasis is identified. PELVIS: BLADDER: Contrast opacifies the urinary bladder. No bladder wall thickening, filling defect, or diverticulum. REPRODUCTIVE ORGANS: The uterus is present. Re-demonstration of a 7.5 x 7.3 x 6.9 cm cystic structure posterior to the uterus may represent an ovarian cyst (series 501, image 118 and series 2, image 66). BOWEL: The stomach is unremarkable. The small and large bowel are normal in caliber and demonstrate no wall thickening. The appendix appears normal. VESSELS: The aorta and IVC appear normal. PERITONEUM/RETROPERITONEUM/LYMPH NODES: Oxilg-qg-uqowmsab volume abdominopelvic ascites. No loculated fluid collection or pneumoperitoneum. No abdominopelvic lymphadenopathy is present. BONES AND ABDOMINAL WALL: No suspicious osseous lesions are identified. Mild body wall edema. Prominent vascular collaterals are noted in the inguinal regions. 1. Slightly nodular contour of the liver, which is new compared to 2021 CT. Splenomegaly measuring up to 12.9 cm, minimally increased compared to 202 CT. Findings can be secondary to hepatic venous congestion in the setting of cardiomegaly. Correlation with liver function tests is recommended. 2. Findings compatible with volume overload including dgkwl-go-tovlncqq volume abdominopelvic ascites and body wall edema. 3. Re-demonstration of a 7.5 cm left posterolateral pelvic cystic lesion likely corresponding to left ovarian/adnexal cyst seen on 04/24/2023 ultrasound. 4. Additional findings as described above. I personally reviewed the images/study and I agree with Ellen Ratliff DO's (resident assistant) findings as stated. This study was interpreted at [place], [place]. MACRO: None Signed by: Esequiel Mendez 06/07/2023 10:33 AM Dictation workstation: [id number] CT angio chest for pulmonary embolism Result Date: 06/07/2023 Interpreted By: Osvaldo Moran and Evy Gamez STUDY: CT ANGIO CHEST FOR PULMONARY EMBOLISM; 06/07/2023 12:13 am INDICATION: Signs/Symptoms:rule out PE. COMPARISON: Chest radiograph dated 06/06/2023 ACCESSION NUMBER(S): [id number] ORDERING CLINICIAN: DELPHINE CAIN TECHNIQUE: Helical data acquisition of the chest was obtained after intravenous administration of 80 mL Omnipaque 350, as per PE protocol. Images were reformatted in coronal and sagittal planes. Axial and coronal maximum intensity projection (MIP) images were created and reviewed. FINDINGS: POTENTIAL LIMITATIONS OF THE STUDY: None HEART AND VESSELS: There are no discrete filling defects within main pulmonary artery and its branches to suggest acute pulmonary embolism. Main pulmonary artery is dilated measuring 3.7 cm. The thoracic aorta normal in course and caliber.Near non-opacification of thoracic aorta precludes assessment for acute aortic pathology. No coronary artery calcifications are seen. Please note, the study is not optimized for evaluation of coronary arteries. The right ventricle and atrium are enlarged compatible with history of pulmonary hypertension and tricuspid regurgitation.Asymmetric enlargement of the right ventricle with reflux of contrast into the IVC. There is no pericardial effusion seen. MEDIASTINUM AND SELVIN, LOWER NECK AND AXILLA: The visualized thyroid gland is within normal limits. No evidence of thoracic lymphadenopathy by CT criteria. Esophagus appears within normal limits as seen. LUNGS AND AIRWAYS: The trachea and central airways are patent. No endobronchial lesion is seen. Diffuse mosaic attenuation. Area of linear ground-glass opacity in the left lower lobe likely represents atelectasis. Focal area of tree-in-bud nodularity in the right lower lobe (see series 404, images 191-197). 4 mm solid nodule in the right lower lobe on image 163. Additional scattered sub-6 mm pulmonary nodules. The bilateral lungs are clear without evidence of focal consolidation, pleural effusion, or pneumothorax. UPPER ABDOMEN: Please see separately dictated concurrent CT abdomen pelvis. CHEST WALL AND OSSEOUS STRUCTURES: Chest wall is within normal limits. No acute osseous pathology.There are no suspicious osseous lesions. 1. No evidence of acute pulmonary embolism. 2. Findings compatible with history of pulmonary hypertension and elevated right-sided heart pressures including dilated main pulmonary artery, asymmetric enlargement of the right atrium and ventricle, and reflux of contrast into the IVC. 3. Focal area of tree-in-bud nodularity in the right lower lobe is consistent with an infectious or inflammatory bronchiolitis. 4. Diffuse mosaic attenuation which is most likely on the basis of small vessels disease given known pulmonary hypertension. Underlying small airways/reactive airways disease is a differential consideration in the appropriate clinical setting 5. Please see separately dictated concurrent CT abdomen pelvis. I personally reviewed the images/study and I agree with Ellen Ratliff DO's (resident assistant) findings as stated. This study was interpreted at [place], [place]. MACRO: None Signed by: Osvaldo Moran 06/07/2023 10:28 AM Dictation workstation: [id number] XR chest 1 view Result Date: 06/07/2023 Interpreted By: Osvaldo Moran, STUDY: XR CHEST 1 VIEW; 06/06/2023 8:48 pm INDICATION: Signs/Symptoms:Cough/SOB. COMPARISON: None. ACCESSION NUMBER(S): [id number] ORDERING CLINICIAN: DELPHINE CAIN FINDINGS: AP radiograph of the chest was provided. CARDIOMEDIASTINAL SILHOUETTE: The cardiac silhouette is enlarged as is the main pulmonary artery contour and right pulmonary artery shadow. LUNGS: Lungs are clear. ABDOMEN: No remarkable upper abdominal findings. BONES: No acute osseous changes. 1. Enlargement of the cardiac silhouette may indicate underlying cardiomegaly versus pericardial effusion. Correlate with echocardiography. 2. Enlargement of the main pulmonary artery contour as well as the right pulmonary artery shadow. Correlate with concern for pulmonary hypertension. MACRO: None Signed by: Osvaldo Moran 06/07/2023 9:52 AM Dictation workstation: [id number] MR foot left wo IV contrast Result Date: 06/06/2023 Interpreted By: Esmer Medrano, STUDY: MRI of the left tibia and fibula without contrast. MRI of the left forefoot with out IV contrast INDICATION: Signs/Symptoms:r/o osteo COMPARISON: Left foot radiographs dated 06/05/2023. ACCESSION NUMBER(S): [id number]; [id number] ORDERING CLINICIAN: JANIA WINSLOW TECHNIQUE: Multiplanar multisequence MRI of the left forefoot was performed without intravenous contrast. Multiplanar multisequence MRI of the left tibia and fibula was performed without intravenous contrast. FINDINGS: Left Tibia and Fibula: OSSEOUS STRUCTURES: No fracture or dislocation is evident. Bone marrow signal intensity is within normal limits. No marrow signal abnormality of the tibia and fibula including the region underlying the ulcer described below. MUSCLES, TENDONS, AND LIGAMENTS: The visualized muscles and tendons are intact without loss of normal muscle morphology, intramuscular fluid collections, or fascial plane fluid. Ligaments are not well assessed on this examination. JOINTS: No joint effusion is evident within the knee or ankle joints. SOFT TISSUES: There is a shallow soft tissue ulcer in the anterior aspect of the distal tibia measuring a proximally at least 3.5 cm in transverse and 6.1 cm in craniocaudal dimensions. There is diffuse reticular pattern fluid infiltration of the subcutaneous fat of the lower leg. There is mild skin thickening in the posterior and posteromedial aspect of the lower leg. No confluent fluid signal abnormality to suggest abscess formation. Left forefoot: Soft tissues: Mild diffuse skin thickening with subcutaneous fluid compatible with reported history of cellulitis. No confluent fluid signal intensity structure to suggest abscess. Ligaments: The Lisfranc ligament is intact. There is no evidence of plantar plate injury. Tendons: The visualized flexor and extensor tendons are intact. No evidence of tenosynovitis. Muscles: Intact. No evidence of muscular atrophy or edema. Bones: No acute fracture or aggressive osseous lesion. Miscellaneous: The visualized plantar fascia appears within normal limits. No evidence of a Puga's neuroma. The visualized soft tissues appear within normal limits. Left tibia and fibula: 1. Prominent shallow soft tissue ulcer in the anterior aspect of the distal tibia. Findings suggesting diffuse cellulitis of the lower leg involving the posterior/medial aspect. 2. No evidence of abscess or osteomyelitis. Left forefoot: 1. Diffuse cellulitis of the forefoot without abscess or osteomyelitis. Signed by: Esmer Medrano 06/06/2023 4:48 PM Dictation workstation: [id number] MR tibia fibula left wo IV contrast Result Date: 06/06/2023 Interpreted By: Esmer Medrano, STUDY: MRI of the left tibia and fibula without contrast. MRI of the left forefoot with out IV contrast INDICATION: Signs/Symptoms:r/o osteo COMPARISON: Left foot radiographs dated 06/05/2023. ACCESSION NUMBER(S): [id number]; [id number] ORDERING CLINICIAN: JANIA WINSLOW TECHNIQUE: Multiplanar multisequence MRI of the left forefoot was performed without intravenous contrast. Multiplanar multisequence MRI of the left tibia and fibula was performed without intravenous contrast. FINDINGS: Left Tibia and Fibula: OSSEOUS STRUCTURES: No fracture or dislocation is evident. Bone marrow signal intensity is within normal limits. No marrow signal abnormality of the tibia and fibula including the region underlying the ulcer described below. MUSCLES, TENDONS, AND LIGAMENTS: The visualized muscles and tendons are intact without loss of normal muscle morphology, intramuscular fluid collections, or fascial plane fluid. Ligaments are not well assessed on this examination. JOINTS: No joint effusion is evident within the knee or ankle joints. SOFT TISSUES: There is a shallow soft tissue ulcer in the anterior aspect of the distal tibia measuring a proximally at least 3.5 cm in transverse and 6.1 cm in craniocaudal dimensions. There is diffuse reticular pattern fluid infiltration of the subcutaneous fat of the lower leg. There is mild skin thickening in the posterior and posteromedial aspect of the lower leg. No confluent fluid signal abnormality to suggest abscess formation. Left forefoot: Soft tissues: Mild diffuse skin thickening with subcutaneous fluid compatible with reported history of cellulitis. No confluent fluid signal intensity structure to suggest abscess. Ligaments: The Lisfranc ligament is intact. There is no evidence of plantar plate injury. Tendons: The visualized flexor and extensor tendons are intact. No evidence of tenosynovitis. Muscles: Intact. No evidence of muscular atrophy or edema. Bones: No acute fracture or aggressive osseous lesion. Miscellaneous: The visualized plantar fascia appears within normal limits. No evidence of a Puga's neuroma. The visualized soft tissues appear within normal limits. Left tibia and fibula: 1. Prominent shallow soft tissue ulcer in the anterior aspect of the distal tibia. Findings suggesting diffuse cellulitis of the lower leg involving the posterior/medial aspect. 2. No evidence of abscess or osteomyelitis. Left forefoot: 1. Diffuse cellulitis of the forefoot without abscess or osteomyelitis. Signed by: Esmer Medrano 06/06/2023 4:48 PM Dictation workstation: [id number] Transthoracic Echo (TTE) Complete Result Date: 06/06/2023 [place] [address] ext-[id number], TRANSTHORACIC ECHOCARDIOGRAM REPORT Patient Name: JAYNA SMITH Reading Physician: [id number] Emre Silverio MD Study Date: 06/06/2023 Ordering Provider: [id number] MELISSA ESQUIVEL MRN/PID: [id number] Fellow: Nurse: Rosalia Galvin RN Date of /Age: 8 1985 / 37 years [employer] Teacher: Monty Martin RDCS Gender: F Additional Staff: Height: 170.18 cm Admit Date: 06/05/2023 Weight: 80.74 kg Admission Status: Inpatient - Routine BSA / BMI: 1.92 m2 / 27.88 kg/m2 Department Location: [address] Blood Pressure: 128 /91 mmHg Study Type: TRANSTHORACIC ECHO (TTE) COMPLETE Diagnosis/ICD: Pulmonary hypertension, unspecified-I27.20 CPT Codes: Echo Complete w Full Doppler-25130 Study Detail: The following Echo studies were performed: 2D, M-Mode, Doppler and color flow. Definity used as a contrast agent for endocardial border definition. Total contrast used for this procedure was 1.50cc mL via IV push. PHYSICIAN INTERPRETATION: Left Ventricle: Left ventricular systolic function is normal, with an estimated ejection fraction of 65%. There are no regional wall motion abnormalities. The left ventricular cavity size is normal. There is mild left ventricular hypertrophy. Spectral Doppler shows an impaired relaxation pattern of left ventricular diastolic filling. Left Atrium: The left atrium is normal in size. Right Ventricle: The right ventricle is severely enlarged. There is severely reduced right ventricular systolic function. Right Atrium: The right atrium is severely dilated. Aortic Valve: The aortic valve is trileaflet. There is no evidence of aortic valve regurgitation. The peak instantaneous gradient of the aortic valve is 3.4 mmHg. The mean gradient of the aortic valve is 2.0 mmHg. Mitral Valve: The mitral valve is normal in structure. There is no evidence of mitral valve regurgitation. Tricuspid Valve: The tricuspid valve is structurally normal. There is severe tricuspid regurgitation. Pulmonic Valve: The pulmonic valve is structurally normal. There is moderate pulmonic valve regurgitation. Pericardium: There is a small pericardial effusion. Aorta: The aortic root is normal. Systemic Veins: The inferior vena cava appears dilated. There is less than 50% IVC collapse with inspiration. CONCLUSIONS: 1. Left ventricular systolic function is normal with a 65% estimated ejection fraction. 2. Spectral Doppler shows an impaired relaxation pattern of left ventricular diastolic filling. 3. D-shaped septum in systole and diastole consistent with right ventricular pressure and volume overload. 4. Severely enlarged right ventricle. 5. There is severely reduced right ventricular systolic function. 6. The right atrium is severely dilated. 7. Severe tricuspid regurgitation. 8. Moderate pulmonic valve regurgitation. 9. Calculated pulmonary artery systolic pressure is 97 mmHg, consistent with pulmonary hypertension. 10. Ascites is incidentally noted. Recommend dedicated imaging. 11. Small pericardial effusion with no evidence of hemodynamic compromise. 12. Overall findings appear consistent with significant pulmonary hypertension, with signs of right ventricular dysfunction. 13. Findings appear similar to prior echocardiogram dated 04/09/2023. QUANTITATIVE DATA SUMMARY: 2D MEASUREMENTS: Normal Ranges: Ao Root d: 3.10 cm (2.0-3.7cm) LAs: 2.60 cm (2.7-4.0cm) IVSd: 1.36 cm (0.6-1.1cm) LVPWd: 1.29 cm (0.6-1.1cm) LVIDd: 2.75 cm (3.9-5.9cm) LVIDs: 1.68 cm LV Mass Index: 61.7 g/m2 LV % FS 38.9 % LA VOLUME: Normal Ranges: LA Vol A4C: 24.5 ml (22+/-6mL/m2) LA Vol A2C: 35.1 ml LA Vol BP: 31.5 ml LA Vol Index A4C: 12.7ml/m2 LA Vol Index A2C: 18.2 ml/m2 LA Vol Index BP: 16.3 ml/m2 LA Area A4C: 11.9 cm2 LA Area A2C: 15.3 cm2 LA Major [place] A4C: 4.9 cm LA Major [place] A2C: 5.7 cm LA Volume Index: 11.8 ml/m2 LA Vol A4C: 22.6 ml LA Vol A2C: 32.5 ml LV SYSTOLIC FUNCTION BY 2D PLANIMETRY (MOD): Normal Ranges: EF-A4C View: 74.1 % (>=55%) EF-A2C View: 42.9 % EF-Biplane: 58.2 % AORTIC VALVE: Normal Ranges: AoV Vmax: 0.92 m/s (<=1.7m/s) AoV Peak P.4 mmHg (<20mmHg) AoV Mean P.0 mmHg (1.7-11.5mmHg) LVOT Max Edita: 0.72 m/s (<=1.1m/s) AoV VTI: 14.90 cm (18-25cm) LVOT VTI: 10.20 cm LVOT Diameter: 2.20 cm (1.8-2.4cm) AoV Area, VTI: 2.60 cm2 (2.5-5.5cm2) AoV Area,Vmax: 2.96 cm2 (2.5-4.5cm2) AoV Dimensionless Index: 0.68 RIGHT VENTRICLE: RV Basal 6.48 cm RV Mid 4.15 cm RV Major 9.1 cm TRICUSPID VALVE/RVSP: Normal Ranges: Peak TR Velocity: 4.54 m/s RV Syst Pressure: 85.4 mmHg (< 30mmHg) [id number] Emre Silverio MD Electronically signed on 06/06/2023 at 1:22:01 PM Final XR hand right 1-2 views Result Date: 06/06/2023 Interpreted By: Liang Robles, STUDY: XR HAND RIGHT 1-2 VIEWS 06/06/2023 10:07 am INDICATION: Signs/Symptoms:Attention 2nd and 3rd finger distal. r/o osteo COMPARISON: None. ACCESSION NUMBER(S): [id number] ORDERING CLINICIAN: JANIA WINSLOW TECHNIQUE: 2 views of the right hand including AP and lateral projections were obtained. FINDINGS: The study is limited by difficulty with patient positioning as the patient was unable to straighten there 2nd and 3rd digits. There is no evidence of acute fracture or dislocation identified. No definite osseous lytic lesions are identified. The joint spaces are well preserved throughout without significant degenerative changes. 1. No fracture or dislocation. MACRO: None. Signed by: Liang Robles 06/06/2023 10:32 AM Dictation workstation: [id number] Vascular US Lower Extremity Venous Duplex Left Result Date: 06/05/2023 [place] [address] ext-[id number], Vascular Lab Report VASC US LOWER EXTREMITY VENOUS DUPLEX LEFT Patient Name: JAYNA Robb SMITH Reading Physician: [id number] Castaneda MD Study Date: 06/05/2023 Ordering Provider: [id number] LETHA LAYTON MRN/PID: [id number] Fellow: Technologist: Bren Lizama RVT/AB Date of 1985 Technologist 2: /Age: years Gender: F Admission Status: Inpatient Location [facility] Performed: Diagnosis/ICD: Localized (leg) edema-R60.0 CPT Codes: 26069 Peripheral venous duplex scan for DVT Limited CONCLUSIONS: Right Lower Venous: Right common femoral vein is negative for deep vein thrombus. Left Lower Venous: No evidence of acute deep vein thrombus visualized in the left lower extremity. Cannot rule out thrombus in non-visualized posterior tibial and peroneal veins due to edema and patient refusal. Additional Findings: Unable to perform calf compressions due to patients severe pain. Imaging & Doppler Findings: Right Compressible Flow Distal External Iliac Yes Pulsatile CFV Yes Pulsatile Left Compress Thrombus Flow Distal External Iliac Yes None Pulsatile CFV Yes None Pulsatile PFV Yes None FV Proximal Yes None Pulsatile FV Mid Yes None FV Distal Yes None Popliteal Yes None Pulsatile [id number] Rubina Castaneda MD Final XR foot left 3+ views Result Date: 06/05/2023 Interpreted By: Alejandro Interiano, STUDY: XR FOOT LEFT 3+ VIEWS; ; 06/05/2023 1:40 pm INDICATION: Signs/Symptoms:dog bite. COMPARISON: None. ACCESSION NUMBER(S): [id number] ORDERING CLINICIAN: FELICIA BARBOSA FINDINGS: LEFT FOOT-AP, LATERAL AND OBLIQUE VIEWS MILD DEGENERATIVE CHANGES ARE PRESENT AT THE 1ST MTP JOINT AND THE TALONAVICULAR JOINT. A SOFT TISSUE SWELLING IS PRESENT ON THE DORSAL ASPECT OF THE MID AND DISTAL FOOT. NO RADIOPAQUE FOREIGN BODY IS SEEN. NO FRACTURE. NO RADIOPAQUE FOREIGN BODY SOFT TISSUE SWELLING ON THE DORSAL ASPECT OF THE MID AND DISTAL FOOT. MACRO: None Signed by: Alejandro Interiano 06/05/2023 2:17 PM Dictation workstation: [id number] CT tibia fibula left w IV contrast Result Date: 06/05/2023 Interpreted By: Jesús Rubalcava, STUDY: CT TIBIA FIBULA LEFT W IV CONTRAST; 06/04/2023 11:20 pm INDICATION: Signs/Symptoms:wound. COMPARISON: 04/26/2023 radiographs ACCESSION NUMBER(S): [id number] ORDERING CLINICIAN: JOSUÉ IGLESIAS TECHNIQUE: Axial CT of the left tibia/fibula was performed with sagittal and coronal reformats. Intravenous contrast was administered, 80 mL Omnipaque 350. FINDINGS: There is severe subcutaneous edema throughout the lower leg. There are extensive subcutaneous venous varices. There is focal skin/superficial soft tissue ulceration at the anterior distal tibia with underlying inflammatory change that extends to the surface of tibia with associated coarse periosteal reaction (axial image 159/240) no tibial erosive change is identified. No organized fluid collection. No knee joint effusion. Bone islands within the medial distal femur and proximal tibia. 1. Anterior distal tibial superficial soft tissue ulceration without underlying fluid collection. Inflammatory changes associated with the ulcer extends to the anterior bone surface of the tibia with associated periosteal reaction. No erosive change. The findings could reflect mild focal osteitis or early osteomyelitis. MRI is suggested for further evaluation. 2. Severe superficial soft tissue swelling. Signed by: Jesús Rubalcava 06/05/2023 12:26 AM Dictation workstation: [id number] Assessment/Plan Assessment: Chronic non-pressure ulcer, left leg with fat necrosis Pain in feet, bilateral Gout vs septic joint - suspected Plan: -Patient seen and examined at bedside. All findings discussed with patient. -Full workup is warranted though low suspicion for gout or septic joint. She has no open wound on the right side so septic joint unlikely. She does not know if she is menopausal, but regarding her age, estrogen would be protective of a gouty flare which is why gout mainly presents in women after menopause. Patient admits her periods are irregular but could be due to her control. No need to tap the joint as she scores low for both gout and septic arthritis on the acute gout exam -Recommend obtaining Uric Acid level -Recommend xray right foot -PVRs from March are wnl. No indication for new PVRs. -Wound culture obtained prior showing bacterial growth. Unsure if this has been resolved with course of abx (oral bactrim per chart review) as patient has no PO abx showing as active in orders. Abx per primary. -Left side dressings replaced. No dressing to right foot. -Suspect patient may be experiencing initial effects of peripheral neuropathy, recommend considering starting gabapentin 100mg TID. -Of note remodulin over time is associated with chronic leg pain with small fiber neuropathy. Recommend optimizing patient's contributing factors (B12, thyroid, T2DM). -Per chart review, colchicine has already been prescribed so if patient's symptoms improve could be due to antiinflammatory effects of this. -No plans for surgical intervention. -Podiatry will follow for results then likely sign off. 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 Please await final signature from attending physician on service. Markus Newman DPM PGY-3 Please use Secure Chat if any questions Associated attestation - Lida Villarreal DPM - 06/25/2023 8:53 AM EDT I saw and evaluated the patient. I personally obtained the singh and critical portions of the history and physical exam or was physically present for singh and critical portions performed by the resident/fellow. I reviewed the resident/fellow's documentation and discussed the patient with the resident/fellow. I agree with the resident/fellow's medical decision making as documented in the note. I spent 55 minutes in the professional and overall care of this patient. Wound Care Consult Visit Date: 06/12/2023 Patient Name: Jayna Smith Date of : 1985 Reason for Consult: Right hand (tips of index and middle finger) Wound Assessment: The wound care team came to bedside to assess the patient's finger tips due to concerns from the family about the possible of infection. The wounds were assess on 06/06 and were dry and stable. Assessment from today, the wounds appear to be still be dry and stable. The patient currently on antibiotics and the wounds were painted with betadine which is antimicrobial and will help keep the wounds dry. Wound Team Plan: Recommendations: Daily Cleanse with normal saline and gently pat dry with a 4x4 cover sponge [place] the wounds with betadine and leave open to air. Use a cotton tip applicator to apply the betadine. Eulalio Menezes RN-, CWON 06/12/2023 8:45 AM Associated Order(s): IP CONSULT TO RHEUMATOLOGY Rheumatology Consult Note Patient Jayna Smith PCP Rajendra Foley PA-C Admission Date 06/06/2023 Chief Complaint/Reason for Admission: Jayna is a 37 y.o. female who presented with worsening left leg pain and swelling in the setting of a chronic left leg wound and was found to have severe pulmonary hypertension. Subjective Subjective History of Presenting Illness Ms. Jayna Smith is a 37 y.o. female with a PMHx of Raynaud's, CKD, HTN, chronic leg wound s/p surgical debridement who was [place] [facility] [place] [facility] due to concerns for LLE cellulitis and recent discovery of pulmonary hypertension after TTE on 04/08/2023. Patient's main complaint other than left leg pain was mild exertional dyspnea that she experienced for the last few years. With the recent findings of right-sided heart failure, pulmonary hypertension and severe TR, the etiology was unknown to primary team. Rheumatology was consulted for potential undiagnosed underlying connective tissue disease etiology. Upon evaluating the patient and obtaining a thorough medical history, it seems like she has been experiencing Raynaud's-like symptoms, red spots on her face and digits (telangiectasia) since she was 12 years old. She was told that the spots on her face were just freckles and the ones on her fingers were due to using glucometer needles along with Raynaud's for which she did not undergo any further evaluation or treatment. She also stated that she noticed digital ulcers on the tips of the right second and third fingers on and off with skin thickening and decreased range of motion for the last 2 years (less noticeable on the left side). Her exertional dyspnea was first noticed after she was diagnosed with hypertension 9 years ago and it has been getting worse with the last 2 months being the most remarkable worsening. She denies headache, fever, rigors, chest pain, alopecia, vision changes, mouth or nasal ulcers, joint swelling other than what stated above, morning stiffness, other forms of rash, photosensitivity, morning stiffness, abdominal pain or GERD. Rheumatologic targeted physical exam was remarkable for telangiectases on the face and palmar surface of the digits bilaterally R>L, remarkable tenderness of the right second and third fingers (DIPs, PIPs and fingertips), remarkable decreased extension of the right hand digits especially second and third fingers, calcinosis and sclerodactyly. LLE anterior tibial wound with dressing on, swelling and erythema of the left foot. Laboratory evaluation with CRP 12.1 (0.5 in April), BNP 1149. Anti-SCL 70, SSA, anti-dsDNA, anti-CCP were negative. Complements and RF within the normal limits. Anticentromere elevated at 8. Creatinine 1.55, albumin 2.9, alk phos 272, ALT 42, AST 44, bilirubin 2, no leukocytosis, Hgb 14.2, platelet 221. Imaging with CT abdomen revealing nodular hepatomegaly, splenomegaly, abdominal pelvic ascites. CTA chest revealed severe pulmonary hypertension, no PE. VQ scan with moderate possibility for PE. Lower extremities venous duplex with no signs for DVT. Patient underwent cardiac/right heart cath on 06/07/2023 which confirmed severe pulmonary hypertension. Patient is being managed in the MICU under critical care and pulmonary teams. She is a lifelong smoker of 100 PPDs, occasional EtOH drinker, smokes marijuana regularly. She works at [employer] No family history of rheumatologic and autoimmune diseases with the exception of Parkinson's maternal aunts and grandmother at a younger age. Past Medical History Active Ambulatory Problems Diagnosis Date Noted Abnormal uterine bleeding (AUB) 05/25/2022 BPPV (benign paroxysmal positional vertigo) 05/25/2022 Cervix dysplasia 05/25/2022 Chronic renal insufficiency, stage III (moderate) ([facility]) 05/25/2022 Dysplasia of cervix, low grade ([facility]) 05/25/2022 Hypertension associated with diabetes ([facility]) 05/25/2022 ELIZABETH (generalized anxiety disorder) 05/25/2022 GERD (gastroesophageal reflux disease) 05/25/2022 Controlled type 2 diabetes mellitus with hyperglycemia, without long-term current use of insulin ([facility]) 05/25/2022 Hemiplegic migraine 05/25/2022 Hypertriglyceridemia 05/25/2022 Leg edema 05/25/2022 Lesion of left ovary 05/25/2022 Low serum HDL 05/25/2022 Motion sickness 05/25/2022 Ovarian cyst, complex 05/25/2022 Pain of left lower extremity 05/25/2022 Raynauds disease 05/25/2022 Sacroiliac joint dysfunction of left side 05/25/2022 Seasonal allergies 05/25/2022 Varicose veins of legs 05/25/2022 Wound of left ankle 05/25/2022 Amenorrhea 07/20/2022 Vaginal lesion 07/20/2022 Elevated red blood cell count 07/26/2022 Non-healing wound of lower extremity 11/07/2022 Non-healing wound of upper extremity 11/07/2022 Finger ulcer ([facility]) 11/07/2022 Overweight (BMI 25.0-29.9) 11/07/2022 History of ovarian cyst 11/07/2022 Elevated ferritin 11/23/2022 Pulmonary hypertension ([facility]) 04/11/2023 Severe tricuspid regurgitation by prior echocardiogram 04/11/2023 Non-pressure chronic ulcer of left lower leg with fat layer exposed ([facility]) 04/17/2023 Cellulitis 06/05/2023 Resolved Ambulatory Problems Diagnosis Date Noted Cellulitis of left lower extremity 05/25/2022 Elevated LFTs 05/25/2022 Headache, acute 05/25/2022 Numbness and tingling of foot 05/25/2022 LGSIL on Pap smear of cervix 07/20/2022 Cellulitis 04/06/2023 Past Medical History: Diagnosis Date Anxiety Chlamydial infection, unspecified Immunization not carried out because of patient refusal Other conditions influencing health status Other specified postprocedural states Prediabetes Raynaud's disease Home Medication: Prior to Admission medications Medication Sig Start Date End Date Taking? Authorizing Provider acetaminophen (Tylenol) 500 mg tablet Take 2 tablets (1,000 mg) by mouth every 6 hours if needed for mild pain (1 - 3). Historical Provider, amoxicillin-pot clavulanate (Augmentin) 875-125 mg tablet Take 1 tablet by mouth every 12 hours for 7 days. 06/03/23 06/10/23 Juno Marquez DO etodolac (Lodine) 400 mg tablet Take 1 tablet (400 mg) by mouth 2 times a day for 7 days. 06/03/23 06/10/23 Juno Marquez DO ascorbic acid (Vitamin C) 500 mg tablet Take 1 tablet (500 mg) by mouth once daily. 06/05/23 Historical Provider, busPIRone (Buspar) 5 mg tablet Take 1 tablet (5 mg) by mouth 3 times a day as needed (anxiety). 10/26/21 06/05/23 Historical Provider, cholecalciferol (Vitamin D3) 25 MCG (1000 UT) tablet Take 1 tablet (1,000 Units) by mouth once daily. 06/05/23 Historical Provider, lisinopril 2.5 mg tablet Take 1 tablet (2.5 mg) by mouth once daily. 06/05/23 Historical Provider, loratadine (Claritin) 10 mg tablet Take 1 tablet (10 mg) by mouth once daily as needed for allergies. 09/24/19 06/05/23 Historical Provider, omeprazole (PriLOSEC) [address] capsule Take 1 capsule (20 mg) by mouth once daily as needed (acid reflex). 06/05/23 Historical Provider, pantoprazole (ProtoNix) 20 mg EC tablet Take 1 tablet (20 mg) by mouth once daily in the morning. Take before meals. Do not crush, chew, or split. 06/05/23 Historical Provider, polyethylene glycol (Glycolax, Miralax) 17 gram packet Take 17 g by mouth once daily. 06/05/23 Historical Provider, zinc gluconate 50 mg tablet Take 1 tablet (50 mg of elemental zinc) by mouth once daily. 06/05/23 Historical Provider, Allergies: Allergies Allergen Reactions Amlodipine Swelling Review of System: Pertinent positives and negatives as per history of present illness. Remainder of 10 point review of systems is negative. Objective Objective Vital Signs: Visit Vitals BP (!) 120/101 Pulse 73 Temp 36.3 C (97.3 F) (Temporal) Resp 20 Ht 1.727 m (5' 8) Wt 81 kg (178 lb 9.2 oz) LMP 06/06/2023 Comment: spotting today SpO2 92% BMI 27.15 kg/m OB Status Having periods Smoking Status Every Day BSA 1.97 m Physical Examination: Constitutional: A&Ox4, mild distress, resting in bed Head and Face: Atraumatic, normocephalic, telangiectases noted on face Eyes: Normal external exam, EOMI ENT: Normal external inspection of ears and nose. Oropharynx normal, bad dentition. Cardiovascular: RRR, S2 split, systolic murmur at left sternal border and pulmonary area. Pulmonary: CTAB, no respiratory distress, no wheezing, rales or rhonchi, on RA Abdomen: Mild tenderness RUQ MSK and skin: telangiectases on the palmar surface of the hands/digits bilaterally R>L, remarkable tenderness of the right second and third fingers (DIPs, PIPs and fingertips), remarkable decreased extension of the right hand digits especially second and third fingers, calcinosis and sclerodactyly. LLE anterior tibial wound with dressing on, swelling and erythema of the left foot. Neuro: No focal deficits, normal motor function, normal sensation, follows all commands Psychiatric: Judgment intact. Appropriate mood, affect and behavior Laboratory Data: Results from last 7 days Lab Units 06/07/2334306/06/23200406/06/23441 WBC AUTO x10*3/uL 9.8 11.8* 9.3 RBC AUTO x10*6/uL 5.08 5.24* 5.26* HEMOGLOBIN g/dL 14.2 14.4 14.7 Results from last 7 days Lab Units 06/07/2334306/06/23200406/06/23441 SODIUM mmol/L 131* 131* 130* POTASSIUM mmol/L 5.1 5.3 4.7 CHLORIDE mmol/L 99 99 99 CO2 mmol/L 21 22 21 BUN mg/dL 31* 33* 29* CREATININE mg/dL 1.55* 1.64* 1.66* CALCIUM mg/dL 8.7 8.6 8.3* PHOSPHORUS mg/dL -- 4.6 -- MAGNESIUM mg/dL -- 1.99 -- BILIRUBIN TOTAL mg/dL 2.0* 1.9* 2.0* ALT U/L 42 47* 53* AST U/L 44* 51* 87* Imaging: Cardiac Catheterization Procedure Result Date: 06/07/2023 [facility], [facility] [employer], [address] [place] [address] Cardiovascular Catheterization Report: JAYNA SMITH Performing Physician: [id number] Martinez MD Study Date: 06/07/2023 Verifying Physician: Blaise Martinez MD MRN/PID: [id number] CONCLUSIONS: 1. Normal coronary arteries in a right dominant system. 2. Normal left ventricular systolic function. 3. Severe pulmonary hypertension. ICD 10 Codes: Primary pulmonary hypertension-I27.0 CPT Codes: Right & Left Heart Cath w/ventriculography/Coronary angio (RHC)([facility])-10008; Moderate Sedation Services 1st additional 15 minutes patient >5 years-[id number]; Moderate Sedation Services 2nd additional 15 minutes patient >5 years-[id number] Akil Martinez MD Performing Physician Final NM Lung perfusion with spect Result Date: 06/07/2023 Interpreted By: Greyson Lim and Liller Gregory STUDY: NM LUNG PERFUSION WITH SPECT; 06/07/2023 11:06 am INDICATION: Signs/Symptoms:V/Q scan for pulmonary hypertension work-up, evaluate for PE. COMPARISON: CT angio chest 06/07/2023 ACCESSION NUMBER(S): [id number] ORDERING CLINICIAN: HUDSON GREEN TECHNIQUE: DIVISION OF NUCLEAR MEDICINE PERFUSION LUNG SCANS Multiple perfusion images of the lungs were acquired after the intravenous administration of 4.3 mCi of Tc-99m macroaggregated albumin (MAA). In addition, SPECT/CT of the chest was performed. FINDINGS: There is marked heterogeneity within the bilateral lung aguayo with multiple subsegmental/nonsegmental perfusion defects. No large segmental defect is identified. There are nonspecific non-segmental/subsegmental perfusion defects and marked heterogeneity in both lungs corresponding to intermediate probability for pulmonary embolism. Additionally, chronic PE versus multifocal airway disease not entirely excluded. The interpretation above is based on modified PIOPED II and PISAPED criteria. I personally reviewed the images/study and I agree with the findings as stated above by resident physician, Dr. Triston Olmedo. The study was interpreted at [place] [facility] in [facility] [place]. MACRO: None Signed by: Greyson Lim 06/07/2023 11:36 AM Dictation workstation: [id number] CT abdomen pelvis w IV contrast Result Date: 06/07/2023 Interpreted By: Esequiel Mendez and Stephens Katherine STUDY: CT ABDOMEN PELVIS W IV CONTRAST; 06/07/2023 12:13 am INDICATION: Signs/Symptoms:Rule out thrombosis. COMPARISON: CT abdomen pelvis 11/28/2021 ACCESSION NUMBER(S): [id number] ORDERING CLINICIAN: DELPHINE CAIN TECHNIQUE: CT of the abdomen and pelvis was performed. Standard contiguous axial images were obtained at 3 mm slice thickness through the abdomen and pelvis. Coronal and sagittal reconstructions at 3 mm slice thickness were performed. 80 ml of contrast Omnipaque 350 were administered intravenously without immediate complication. FINDINGS: LOWER CHEST: Please see separately dictated concurrent CTA chest. ABDOMEN: LIVER: The liver is slightly nodular in contour and heterogeneously enhancing. The IVC and hepatic veins are dilated.. BILE DUCTS: The intrahepatic and extrahepatic ducts are not dilated. GALLBLADDER: Layering hyperattenuation within the gallbladder may represent sludge or vicarious excretion of contrast. No gallbladder wall thickening, pericholecystic fluid, or adjacent fat stranding to suggest acute cholecystitis. PANCREAS: The pancreas appears unremarkable without evidence of ductal dilatation or masses. SPLEEN: The spleen is enlarged measuring 12.9 cm in craniocaudal extension, similar to prior. ADRENAL GLANDS: Bilateral adrenal glands appear normal. KIDNEYS AND URETERS: The kidneys are normal in size and enhance symmetrically. No hydroureteronephrosis or nephroureterolithiasis is identified. PELVIS: BLADDER: Contrast opacifies the urinary bladder. No bladder wall thickening, filling defect, or diverticulum. REPRODUCTIVE ORGANS: The uterus is present. Re-demonstration of a 7.5 x 7.3 x 6.9 cm cystic structure posterior to the uterus may represent an ovarian cyst (series 501, image 118 and series 2, image 66). BOWEL: The stomach is unremarkable. The small and large bowel are normal in caliber and demonstrate no wall thickening. The appendix appears normal. VESSELS: The aorta and IVC appear normal. PERITONEUM/RETROPERITONEUM/LYMPH NODES: Bwhnw-lz-lgzydisn volume abdominopelvic ascites. No loculated fluid collection or pneumoperitoneum. No abdominopelvic lymphadenopathy is present. BONES AND ABDOMINAL WALL: No suspicious osseous lesions are identified. Mild body wall edema. Prominent vascular collaterals are noted in the inguinal regions. 1. Slightly nodular contour of the liver, which is new compared to 2022 CT. Splenomegaly measuring up to 12.9 cm, minimally increased compared to 2022 CT. Findings can be secondary to hepatic venous congestion in the setting of cardiomegaly. Correlation with liver function tests is recommended. 2. Findings compatible with volume overload including yfzmn-zt-bnnbgxbe volume abdominopelvic ascites and body wall edema. 3. Re-demonstration of a 7.5 cm left posterolateral pelvic cystic lesion likely corresponding to left ovarian/adnexal cyst seen on 04/24/2023 ultrasound. 4. Additional findings as described above. I personally reviewed the images/study and I agree with Ellen Ratliff DO's (resident assistant) findings as stated. This study was interpreted at [facility], [place], [place]. MACRO: None Signed by: Esequiel Mendez 06/07/2023 10:33 AM Dictation workstation: [id number] CT angio chest for pulmonary embolism Result Date: 06/07/2023 Interpreted By: Osvaldo Moran and Stephens Katherine STUDY: CT ANGIO CHEST FOR PULMONARY EMBOLISM; 06/07/2023 12:13 am INDICATION: Signs/Symptoms:rule out PE. COMPARISON: Chest radiograph dated 06/06/2023 ACCESSION NUMBER(S): [id number] ORDERING CLINICIAN: DELPHINE CAIN TECHNIQUE: Helical data acquisition of the chest was obtained after intravenous administration of 80 mL Omnipaque 350, as per PE protocol. Images were reformatted in coronal and sagittal planes. Axial and coronal maximum intensity projection (MIP) images were created and reviewed. FINDINGS: POTENTIAL LIMITATIONS OF THE STUDY: None HEART AND VESSELS: There are no discrete filling defects within main pulmonary artery and its branches to suggest acute pulmonary embolism. Main pulmonary artery is dilated measuring 3.7 cm. The thoracic aorta normal in course and caliber.Near non-opacification of thoracic aorta precludes assessment for acute aortic pathology. No coronary artery calcifications are seen. Please note, the study is not optimized for evaluation of coronary arteries. The right ventricle and atrium are enlarged compatible with history of pulmonary hypertension and tricuspid regurgitation.Asymmetric enlargement of the right ventricle with reflux of contrast into the IVC. There is no pericardial effusion seen. MEDIASTINUM AND SELVIN, LOWER NECK AND AXILLA: The visualized thyroid gland is within normal limits. No evidence of thoracic lymphadenopathy by CT criteria. Esophagus appears within normal limits as seen. LUNGS AND AIRWAYS: The trachea and central airways are patent. No endobronchial lesion is seen. Diffuse mosaic attenuation. Area of linear ground-glass opacity in the left lower lobe likely represents atelectasis. Focal area of tree-in-bud nodularity in the right lower lobe (see series 404, images 191-197). 4 mm solid nodule in the right lower lobe on image 163. Additional scattered sub-6 mm pulmonary nodules. The bilateral lungs are clear without evidence of focal consolidation, pleural effusion, or pneumothorax. UPPER ABDOMEN: Please see separately dictated concurrent CT abdomen pelvis. CHEST WALL AND OSSEOUS STRUCTURES: Chest wall is within normal limits. No acute osseous pathology.There are no suspicious osseous lesions. 1. No evidence of acute pulmonary embolism. 2. Findings compatible with history of pulmonary hypertension and elevated right-sided heart pressures including dilated main pulmonary artery, asymmetric enlargement of the right atrium and ventricle, and reflux of contrast into the IVC. 3. Focal area of tree-in-bud nodularity in the right lower lobe is consistent with an infectious or inflammatory bronchiolitis. 4. Diffuse mosaic attenuation which is most likely on the basis of small vessels disease given known pulmonary hypertension. Underlying small airways/reactive airways disease is a differential consideration in the appropriate clinical setting 5. Please see separately dictated concurrent CT abdomen pelvis. I personally reviewed the images/study and I agree with Ellen Ratliff DO's (resident assistant) findings as stated. This study was interpreted at [place], [place]. MACRO: None Signed by: Osvaldo Moran 06/07/2023 10:28 AM Dictation workstation: [id number] XR chest 1 view Result Date: 06/07/2023 Interpreted By: Osvaldo Moran, STUDY: XR CHEST 1 VIEW; 06/06/2023 8:48 pm INDICATION: Signs/Symptoms:Cough/SOB. COMPARISON: None. ACCESSION NUMBER(S): [id number] ORDERING CLINICIAN: DELPHINE CAIN FINDINGS: AP radiograph of the chest was provided. CARDIOMEDIASTINAL SILHOUETTE: The cardiac silhouette is enlarged as is the main pulmonary artery contour and right pulmonary artery shadow. LUNGS: Lungs are clear. ABDOMEN: No remarkable upper abdominal findings. BONES: No acute osseous changes. 1. Enlargement of the cardiac silhouette may indicate underlying cardiomegaly versus pericardial effusion. Correlate with echocardiography. 2. Enlargement of the main pulmonary artery contour as well as the right pulmonary artery shadow. Correlate with concern for pulmonary hypertension. MACRO: None Signed by: Osvaldo Moran 06/07/2023 9:52 AM Dictation workstation: [id number] MR foot left wo IV contrast Result Date: 06/06/2023 Interpreted By: Esmer Medrano, STUDY: MRI of the left tibia and fibula without contrast. MRI of the left forefoot with out IV contrast INDICATION: Signs/Symptoms:r/o osteo COMPARISON: Left foot radiographs dated 06/05/2023. ACCESSION NUMBER(S): [id number]; [id number] ORDERING CLINICIAN: JANIA WINSLOW TECHNIQUE: Multiplanar multisequence MRI of the left forefoot was performed without intravenous contrast. Multiplanar multisequence MRI of the left tibia and fibula was performed without intravenous contrast. FINDINGS: Left Tibia and Fibula: OSSEOUS STRUCTURES: No fracture or dislocation is evident. Bone marrow signal intensity is within normal limits. No marrow signal abnormality of the tibia and fibula including the region underlying the ulcer described below. MUSCLES, TENDONS, AND LIGAMENTS: The visualized muscles and tendons are intact without loss of normal muscle morphology, intramuscular fluid collections, or fascial plane fluid. Ligaments are not well assessed on this examination. JOINTS: No joint effusion is evident within the knee or ankle joints. SOFT TISSUES: There is a shallow soft tissue ulcer in the anterior aspect of the distal tibia measuring a proximally at least 3.5 cm in transverse and 6.1 cm in craniocaudal dimensions. There is diffuse reticular pattern fluid infiltration of the subcutaneous fat of the lower leg. There is mild skin thickening in the posterior and posteromedial aspect of the lower leg. No confluent fluid signal abnormality to suggest abscess formation. Left forefoot: Soft tissues: Mild diffuse skin thickening with subcutaneous fluid compatible with reported history of cellulitis. No confluent fluid signal intensity structure to suggest abscess. Ligaments: The Lisfranc ligament is intact. There is no evidence of plantar plate injury. Tendons: The visualized flexor and extensor tendons are intact. No evidence of tenosynovitis. Muscles: Intact. No evidence of muscular atrophy or edema. Bones: No acute fracture or aggressive osseous lesion. Miscellaneous: The visualized plantar fascia appears within normal limits. No evidence of a Puga's neuroma. The visualized soft tissues appear within normal limits. Left tibia and fibula: 1. Prominent shallow soft tissue ulcer in the anterior aspect of the distal tibia. Findings suggesting diffuse cellulitis of the lower leg involving the posterior/medial aspect. 2. No evidence of abscess or osteomyelitis. Left forefoot: 1. Diffuse cellulitis of the forefoot without abscess or osteomyelitis. Signed by: Esmer Medrano 06/06/2023 4:48 PM Dictation workstation: [id number] MR tibia fibula left wo IV contrast Result Date: 06/06/2023 Interpreted By: Esmer Medrano, STUDY: MRI of the left tibia and fibula without contrast. MRI of the left forefoot with out IV contrast INDICATION: Signs/Symptoms:r/o osteo COMPARISON: Left foot radiographs dated 06/05/2023. ACCESSION NUMBER(S): [id number]; [id number] ORDERING CLINICIAN: JANIA WINSLOW TECHNIQUE: Multiplanar multisequence MRI of the left forefoot was performed without intravenous contrast. Multiplanar multisequence MRI of the left tibia and fibula was performed without intravenous contrast. FINDINGS: Left Tibia and Fibula: OSSEOUS STRUCTURES: No fracture or dislocation is evident. Bone marrow signal intensity is within normal limits. No marrow signal abnormality of the tibia and fibula including the region underlying the ulcer described below. MUSCLES, TENDONS, AND LIGAMENTS: The visualized muscles and tendons are intact without loss of normal muscle morphology, intramuscular fluid collections, or fascial plane fluid. Ligaments are not well assessed on this examination. JOINTS: No joint effusion is evident within the knee or ankle joints. SOFT TISSUES: There is a shallow soft tissue ulcer in the anterior aspect of the distal tibia measuring a proximally at least 3.5 cm in transverse and 6.1 cm in craniocaudal dimensions. There is diffuse reticular pattern fluid infiltration of the subcutaneous fat of the lower leg. There is mild skin thickening in the posterior and posteromedial aspect of the lower leg. No confluent fluid signal abnormality to suggest abscess formation. Left forefoot: Soft tissues: Mild diffuse skin thickening with subcutaneous fluid compatible with reported history of cellulitis. No confluent fluid signal intensity structure to suggest abscess. Ligaments: The Lisfranc ligament is intact. There is no evidence of plantar plate injury. Tendons: The visualized flexor and extensor tendons are intact. No evidence of tenosynovitis. Muscles: Intact. No evidence of muscular atrophy or edema. Bones: No acute fracture or aggressive osseous lesion. Miscellaneous: The visualized plantar fascia appears within normal limits. No evidence of a Puga's neuroma. The visualized soft tissues appear within normal limits. Left tibia and fibula: 1. Prominent shallow soft tissue ulcer in the anterior aspect of the distal tibia. Findings suggesting diffuse cellulitis of the lower leg involving the posterior/medial aspect. 2. No evidence of abscess or osteomyelitis. Left forefoot: 1. Diffuse cellulitis of the forefoot without abscess or osteomyelitis. Signed by: Esmer Medrano 06/06/2023 4:48 PM Dictation workstation: [id number] Transthoracic Echo (TTE) Complete Result Date: 06/06/2023 [place] [address] [id number], TRANSTHORACIC ECHOCARDIOGRAM REPORT Patient Name: JAYNA OLMOSOLLY Reading Physician: [id number] Emre Silverio MD Study Date: 06/06/2023 Ordering Provider: [id number] MELISSA ESQUIVEL MRN/PID: [id number] Fellow: Nurse: Rosalia Galvin RN Date of /Age: 8 1985 / 37 years [employer] Teacher: Monty Martin RDCS Gender: F Additional Staff: Height: 170.18 cm Admit Date: 06/05/2023 Weight: 80.74 kg Admission Status: Inpatient - Routine BSA / BMI: 1.92 m2 / 27.88 kg/m2 Department Location: [address] Blood Pressure: 128 /91 mmHg Study Type: TRANSTHORACIC ECHO (TTE) COMPLETE Diagnosis/ICD: Pulmonary hypertension, unspecified-I27.20 CPT Codes: Echo Complete w Full Doppler-84626 Study Detail: The following Echo studies were performed: 2D, M-Mode, Doppler and color flow. Definity used as a contrast agent for endocardial border definition. Total contrast used for this procedure was 1.50cc mL via IV push. PHYSICIAN INTERPRETATION: Left Ventricle: Left ventricular systolic function is normal, with an estimated ejection fraction of 65%. There are no regional wall motion abnormalities. The left ventricular cavity size is normal. There is mild left ventricular hypertrophy. Spectral Doppler shows an impaired relaxation pattern of left ventricular diastolic filling. Left Atrium: The left atrium is normal in size. Right Ventricle: The right ventricle is severely enlarged. There is severely reduced right ventricular systolic function. Right Atrium: The right atrium is severely dilated. Aortic Valve: The aortic valve is trileaflet. There is no evidence of aortic valve regurgitation. The peak instantaneous gradient of the aortic valve is 3.4 mmHg. The mean gradient of the aortic valve is 2.0 mmHg. Mitral Valve: The mitral valve is normal in structure. There is no evidence of mitral valve regurgitation. Tricuspid Valve: The tricuspid valve is structurally normal. There is severe tricuspid regurgitation. Pulmonic Valve: The pulmonic valve is structurally normal. There is moderate pulmonic valve regurgitation. Pericardium: There is a small pericardial effusion. Aorta: The aortic root is normal. Systemic Veins: The inferior vena cava appears dilated. There is less than 50% IVC collapse with inspiration. CONCLUSIONS: 1. Left ventricular systolic function is normal with a 65% estimated ejection fraction. 2. Spectral Doppler shows an impaired relaxation pattern of left ventricular diastolic filling. 3. D-shaped septum in systole and diastole consistent with right ventricular pressure and volume overload. 4. Severely enlarged right ventricle. 5. There is severely reduced right ventricular systolic function. 6. The right atrium is severely dilated. 7. Severe tricuspid regurgitation. 8. Moderate pulmonic valve regurgitation. 9. Calculated pulmonary artery systolic pressure is 97 mmHg, consistent with pulmonary hypertension. 10. Ascites is incidentally noted. Recommend dedicated imaging. 11. Small pericardial effusion with no evidence of hemodynamic compromise. 12. Overall findings appear consistent with significant pulmonary hypertension, with signs of right ventricular dysfunction. 13. Findings appear similar to prior echocardiogram dated 04/09/2023. QUANTITATIVE DATA SUMMARY: 2D MEASUREMENTS: Normal Ranges: Ao Root d: 3.10 cm (2.0-3.7cm) LAs: 2.60 cm (2.7-4.0cm) IVSd: 1.36 cm (0.6-1.1cm) LVPWd: 1.29 cm (0.6-1.1cm) LVIDd: 2.75 cm (3.9-5.9cm) LVIDs: 1.68 cm LV Mass Index: 61.7 g/m2 LV % FS 38.9 % LA VOLUME: Normal Ranges: LA Vol A4C: 24.5 ml (22+/-6mL/m2) LA Vol A2C: 35.1 ml LA Vol BP: 31.5 ml LA Vol Index A4C: 12.7ml/m2 LA Vol Index A2C: 18.2 ml/m2 LA Vol Index BP: 16.3 ml/m2 LA Area A4C: 11.9 cm2 LA Area A2C: 15.3 cm2 LA Major [place] A4C: 4.9 cm LA Major [place] A2C: 5.7 cm LA Volume Index: 11.8 ml/m2 LA Vol A4C: 22.6 ml LA Vol A2C: 32.5 ml LV SYSTOLIC FUNCTION BY 2D PLANIMETRY (MOD): Normal Ranges: EF-A4C View: 74.1 % (>=55%) EF-A2C View: 42.9 % EF-Biplane: 58.2 % AORTIC VALVE: Normal Ranges: AoV Vmax: 0.92 m/s (<=1.7m/s) AoV Peak P.4 mmHg (<20mmHg) AoV Mean P.0 mmHg (1.7-11.5mmHg) LVOT Max Edita: 0.72 m/s (<=1.1m/s) AoV VTI: 14.90 cm (18-25cm) LVOT VTI: 10.20 cm LVOT Diameter: 2.20 cm (1.8-2.4cm) AoV Area, VTI: 2.60 cm2 (2.5-5.5cm2) AoV Area,Vmax: 2.96 cm2 (2.5-4.5cm2) AoV Dimensionless Index: 0.68 RIGHT VENTRICLE: RV Basal 6.48 cm RV Mid 4.15 cm RV Major 9.1 cm TRICUSPID VALVE/RVSP: Normal Ranges: Peak TR Velocity: 4.54 m/s RV Syst Pressure: 85.4 mmHg (< 30mmHg) [id number] Emre Silverio MD Electronically signed on 06/06/2023 at 1:22:01 PM Final XR hand right 1-2 views Result Date: 06/06/2023 Interpreted By: Liang Robles, STUDY: XR HAND RIGHT 1-2 VIEWS 06/06/2023 10:07 am INDICATION: Signs/Symptoms:Attention 2nd and 3rd finger distal. r/o osteo COMPARISON: None. ACCESSION NUMBER(S): [id number] ORDERING CLINICIAN: JANIA WINSLOW TECHNIQUE: 2 views of the right hand including AP and lateral projections were obtained. FINDINGS: The study is limited by difficulty with patient positioning as the patient was unable to straighten there 2nd and 3rd digits. There is no evidence of acute fracture or dislocation identified. No definite osseous lytic lesions are identified. The joint spaces are well preserved throughout without significant degenerative changes. 1. No fracture or dislocation. MACRO: None. Signed by: Liang Robles 06/06/2023 10:32 AM Dictation workstation: [id number] Medications: Scheduled medications heparin (porcine), 5,000 Units, subcutaneous, q8h insulin lispro, 0-5 Units, subcutaneous, TID with meals piperacillin-tazobactam, 3.375 g, intravenous, q6h vancomycin, 750 mg, intravenous, q24h Continuous medications PRN medications PRN medications: acetaminophen OR acetaminophen OR acetaminophen, dextrose, dextrose, glucagon, glucagon, HYDROmorphone, ondansetron, oxyCODONE, oxyCODONE, vancomycin Assessment Assessment & Plan Ms. Jayna Smith is a 37 y.o. female who presents with chronic leg wound s/p surgical debridement with concerns for LLE cellulitis and recent discovery of pulmonary hypertension after TTE on 04/08/2023 concerning for rheumatologic/autoimmune etiology. Principal Problem: Pulmonary hypertension (CMS/HCC) #CREST/lcSSc #Pulmonary hypertension -Patient's presentation, history and clinical evaluation is highly suggestive of CREST diagnosis even before confirmatory serology results. (Differential diagnosis could include systemic sclerosis (however negative SCL 70), pulmonary artery vasculitis, hypercoagulability state but coagulation panel was unremarkable). -Anticentromere was found to be positive/elevated at >8. -No indication for immunosuppression therapy -Will defer treatment of pulmonary hypertension to primary/pulmonary team -We expect that treating her pulmonary hypertension accordingly will likely improve her digital ulcers. -Symptomatic management of patient's complaints at the present (for example PPIs if she developed GERD) -We will continue to follow peripherally. The rest is per the primary team. Thank you for the consult. 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 No Secondary Emergency Contact: Rocio Jimenez Mobile Relation: Father Patient seen and discussed with the attending. Signature: Benitez Bradshaw MD Date: June 07, 2023 This note has been transcribed using YupiCall voice recognition system and there is a possibility of unintentional typing misprints. Any information found to be copied from previous providers is done in the best interest of the patient to provide accurate, quality, and continuity of care. Rheumatology Attending I interviewed and examined the patient and discussed the findings and anticipated treatment plan. See above note for details. I agree with the findings and plan of care summarized in the above note. This patient has telangiectasias on the face and fingers, fingertip ischemia with skin tightening in the Rt hand and severe pulmonary hypertension. 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 The only indication for immunosuppression in CREST syndrome is for the treatment of fibrosing alveolitis, which is not apparent on this patient's recent chest CT. The anticipated treatment for pulmonary hypertension and cor pulmonale should provide some benefits for the fingertip ulcers and chronic venous stasis. CREST patients are at risk for severe GERD and treatment with a PPI is reasonable. There is no indication for immunosuppression, which will not be beneficial and is relatively contraindicated when fingertip and lower extremity ulcers could provide a portal of entry for microbial pathogens. There is no additional treatment that Rheumatology can offer at present. We will follow peripherally while in the hospital and will be happy to see the patient intermittently for additional monitoring after discharge. Saurabh Yen MD Associated Order(s): Inpatient consult to Heart Failure Inpatient consult to Heart Failure Consult performed by: Dl Pratt DO Consult ordered by: Daniel Pink MD Reason for consult: pulmonary htn, RV failure History Of Present Illness: Jayna Smith is a 37 y.o. female presenting with with past medical history of DM2, HTN, Raynauds, CKD who originally presented to [facility] for Left lower extremity pain. She recently had a wound debridement for a chronic left lower leg wound and underwent debridement 04/19/2023 and has had worsening pain, erythema and swelling since despite antibiotics therapy. While being evaluated at [facility] it was recommended she be transferred to [facility] for pulmonary hypertension evaluation. 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 During a previous hospitalization this past March for this wound, she was noted to have a new murmur on cardiac exam. Subsequent TTE showed severe TR, RV dilation with reduced function, RVSP estimated at 117. Was recommended for cardiology/pulmonary follow up but was not able to make these appointments. Last Recorded Vitals: Vitals: 06/07/23 0800 06/07/23 0900 06/07/23 1110 06/07/23 1200 BP: (!) 115/96 (!) 111/91 Pulse: 73 72 72 Resp: 17 (!) 28 24 Temp: 36.3 C (97.3 F) 36.3 C (97.3 F) TempSrc: Temporal Temporal SpO2: 92% 100% Weight: Height: Last Labs: CBC - 06/07/2023: 3:44 AM 9.8 14.2 221 44.2 CMP - 06/07/2023: 3:44 AM 8.7 5.6 44 --- 2.0 4.6 2.9 42 272 PTT - 06/06/2023: 8:05 PM 1.3 14.3 34 Troponin I, High Sensitivity Date/Time Value Ref Range Status 06/06/2023 08:12 PM 17 0 - 34 ng/L Final Troponin I Date/Time Value Ref Range Status 11/28/2021 10:44 PM 8 0 - 13 ng/L Final Comment: . Less than 99th percentile of normal range cutoff- Female and children under 18 years old <14 ng/L; Male <21 ng/L: Negative Repeat testing should be performed if clinically indicated. . Female and children under 18 years old 14-50 ng/L; Male 21-50 ng/L: Consistent with possible cardiac damage and possible increased clinical risk. Serial measurements may help to assess extent of myocardial damage. . >50 ng/L: Consistent with cardiac damage, increased clinical risk and myocardial infarction. Serial measurements may help assess extent of myocardial damage. . NOTE: Children less than 1 year old may have higher baseline troponin levels and results should be interpreted in conjunction with the overall clinical context. . NOTE: Troponin I testing is performed using a different testing methodology at [facility] than at other [facility]. Direct result comparisons should only be made within the same method. BNP Date/Time Value Ref Range Status 06/06/2023 08:12 PM 1,149 (H) 0 - 99 pg/mL Final Hemoglobin A1C Date/Time Value Ref Range Status 06/06/2023 09:57 AM 6.7 (H) see below % Final 11/17/2022 08:33 AM 6.7 (A) % Final Comment: Diagnosis of Diabetes-Adults Non-Diabetic: < or = 5.6% Increased risk for developing diabetes: 5.7-6.4% Diagnostic of diabetes: > or = 6.5% . Monitoring of Diabetes Age (y) Therapeutic Goal (%) Adults: >18 <7.0 Pediatrics: 13-18 <7.5 7-12 <8.0 0- 6 7.5-8.5 [place] Diabetes Association. Diabetes Care 33(S1), Mar 2009. 07/20/2022 09:26 AM 6.6 (A) % Final Comment: Diagnosis of Diabetes-Adults Non-Diabetic: < or = 5.6% Increased risk for developing diabetes: 5.7-6.4% Diagnostic of diabetes: > or = 6.5% . Monitoring of Diabetes Age (y) Therapeutic Goal (%) Adults: >18 <7.0 Pediatrics: 13-18 <7.5 7-12 <8.0 0- 6 7.5-8.5 [place] Diabetes Association. Diabetes Care 33(S1), Mar 2009. VLDL Date/Time Value Ref Range Status 07/20/2022 09:26 AM 17 0 - 40 mg/dL Final 10/19/2021 08:40 AM 56 (H) 0 - 40 mg/dL Final 03/21/2021 08:23 AM 43 (H) 0 - 40 mg/dL Final Last I/O: I/O last 3 completed shifts: In: 1100 (13.6 mL/kg) [IV Piggyback:1100] Out: 600 (7.4 mL/kg) [Urine:600 (0.2 mL/kg/hr)] Weight: 81 kg Past Cardiology Tests (Last 3 Years): EKG: No results found for this or any previous visit from the past 1095 days. Echo: Transthoracic Echo (TTE) Complete 06/06/2023 1. Left ventricular systolic function is normal with a 65% estimated ejection fraction. 2. Spectral Doppler shows an impaired relaxation pattern of left ventricular diastolic filling. 3. D-shaped septum in systole and diastole consistent with right ventricular pressure and volume overload. 4. Severely enlarged right ventricle. 5. There is severely reduced right ventricular systolic function. 6. The right atrium is severely dilated. 7. Severe tricuspid regurgitation. 8. Moderate pulmonic valve regurgitation. 9. Calculated pulmonary artery systolic pressure is 97 mmHg, consistent with pulmonary hypertension. 10. Ascites is incidentally noted. Recommend dedicated imaging. 11. Small pericardial effusion with no evidence of hemodynamic compromise. 12. Overall findings appear consistent with significant pulmonary hypertension, with signs of right ventricular dysfunction. 13. Findings appear similar to prior echocardiogram dated 04/09/2023. Ejection Fractions: EF Date/Time Value Ref Range Status 06/06/2023 11:33 AM 58 % Cath: No results found for this or any previous visit from the past 1095 days. Stress Test: No results found for this or any previous visit from the past 1095 days. Cardiac Imaging: No results found for this or any previous visit from the past 1095 days. Past Medical History: She has a past medical history of Anxiety, Chlamydial infection, unspecified, Elevated LFTs (05/25/2022), GERD (gastroesophageal reflux disease), Immunization not carried out because of patient refusal, LGSIL on Pap smear of cervix (07/20/2022), Other conditions influencing health status, Other specified postprocedural states, Prediabetes, and Raynaud's disease. Past Surgical History: She has a past surgical history that includes Cervical biopsy w/ loop electrode excision (08/17/2014); Colposcopy (05/13/2022); and Mouth surgery. Social History: She reports that she has been smoking cigarettes. She has a 1.00 pack-year smoking history. She has never used smokeless tobacco. She reports that she does not currently use alcohol. She reports current drug use. Drug: Marijuana. Family History: Family History Problem Relation Name Age of Onset No Known Problems Mother Osteoporosis Father Parkinsonism Mother's Sister Parkinsonism Maternal Grandmother Asthma Other Diabetes Other Hypertension Other Heart attack Other Allergies: Amlodipine Inpatient Medications: Scheduled medications Medication Dose Route Frequency heparin (porcine) 5,000 Units subcutaneous q8h piperacillin-tazobactam 3.375 g intravenous q6h vancomycin 750 mg intravenous q24h PRN medications Medication acetaminophen Or acetaminophen Or acetaminophen HYDROmorphone midazolam ondansetron oxyCODONE oxyCODONE vancomycin Continuous Medications Medication Dose Last Rate sodium chloride 0.9% 100 mL/hr Outpatient Medications: Current Outpatient Medications Medication Instructions acetaminophen (TYLENOL) 650 mg, oral, Every 6 hours PRN amoxicillin-pot clavulanate (Augmentin) 875-125 mg tablet 1 tablet, oral, Every 12 hours etodolac (LODINE) 400 mg, oral, 2 times daily Physical Exam: General: well appearing, no acute distress HEENT: moist mucous membranes, JVD elevated CV: regular rate and rhythm, 2/6 systolic murmur at LLSB, 2+ pulses in all extremities RESP: CTA bilaterally, normal chest expansion, no resp distress Abd: soft, nontender, nondistended Neuro: alert and oriented x3, speech appropriate Vascular: peripheral edema appreciated Skin: LLE wound, anterior doherty Assessment/Plan Systolic Heart murmur Severe Tricuspid regurgitation Pulmonary HTN by TTE Diabetes mellitus type 2 Raynaud's syndrome Chronic left lower extremity wound with concern for cellulitis Recommendations: -Agree with Pulmonary HTN team consultation -RHC/LHC planned today -Will follow up after cath results Discussed with HF attending, Dl Garcia DO PGY-4 Advanced Heart Failure Fellow Associated attestation - Carlyn Gonzales MD PhD - 06/07/2023 7:06 PM EDT I saw and evaluated the patient. I personally obtained the singh and critical portions of the history and physical exam or was physically present for singh and critical portions performed by the resident/fellow. I reviewed the resident/fellow's documentation and discussed the patient with the resident/fellow. I agree with the resident/fellow's medical decision making as documented in the note with the exception/addition of the followin-year-old woman with a history of left leg cellulitis, transferred to [facility] for evaluation of pulmonary hypertension. She has a history of chronic smoking, but no other toxic habits. Father has a history of heart failure but she is unaware of other clinical details. She has 2 children (16 years, 11 years) and describes 2 uneventful pregnancies with uncomplicated vaginal deliveries. She further denies any cardiovascular symptoms. Clinically: Thin young woman in no apparent cardiopulmonary distress. On room air. Warm to touch Few skin telangiectasias HS 1, 2. With grade 4 PSM at LLSE accentuated with inspiration. Mild pedal edema bilaterally Right heart catheterization 06/07/2023:RA: 23 RV 93/13 (27) PCWP 22 PA 91/41 (59) Mixed venous sat: 60% CO/CI: 3.56/1.83 TTE 06/06/2023 with preserved left ventricular systolic function, severe tricuspid regurgitation, dilated hypokinetic RV Imp/Plan: Concern that she will ultimately have Gp1 PH but will diurese and observe PA pressures once PCWP normalises PAH team review Carlyn Gonzales MD PhD Associated Order(s): PHARMACY TO DOSE VANCO Vancomycin Dosing by Pharmacy- INITIAL Jayna Smith is a 37 y.o. year old female who Pharmacy has been consulted for vancomycin dosing for cellulitis, skin and soft tissue. Based on the patient's indication and renal status this patient will be dosed based on a goal AUC of 400-600. Renal function is currently declining. Visit Vitals BP (!) 115/96 Pulse 73 Temp 36.3 C (97.3 F) (Temporal) Resp 17 Lab Results Component Value Date CREATININE 1.55 (H) 06/07/2023 CREATININE 1.64 (H) 06/06/2023 CREATININE 1.66 (H) 06/06/2023 CREATININE 1.04 06/04/2023 I/O last 3 completed shifts: In: 1100 (13.6 mL/kg) [IV Piggyback:1100] Out: 600 (7.4 mL/kg) [Urine:600 (0.2 mL/kg/hr)] Dosing Weight: 81 kg Lab Results Component Value Date PATIENTTEMP 37.0 06/06/2023 Assessment/Plan Patient was previously on vancomycin 750mg Q12H as of 06/05/23 but SUPRAtherapeutic. No doses of vancomycin received on 06/06/23. Vancomycin restarted. Level added to morning labs resulted at 14.5 mcg/mL. Will initiate vancomycin maintenance dose of 750 mg every 24 hours. This dosing regimen is predicted by [employer] to result in the following pharmacokinetic parameters: Loading dose: N/A Regimen: 750 mg IV every 24 hours. Start time: 22:12 on 06/06/2023 Exposure target: AUC24 (range)400-600 mg/L.hr AUC24,ss: 431 mg/L.hr Probability of AUC24 > 400: 78 % Ctrough,ss: 13 mg/L Probability of Ctrough,ss > 20: 0 % Probability of nephrotoxicity (Lodise GAIL 2008): 8 % Follow-up level will be ordered on 06/08/23 with morning labs, unless clinically indicated sooner. Will continue to monitor renal function daily while on vancomycin and order serum creatinine at least every 48 hours if not already ordered. Follow for continued vancomycin needs, clinical response, and signs/symptoms of toxicity. Alyssa Blevins PharmD Associated Order(s): PHARMACY TO DOSE VANCO Vancomycin Dosing by Pharmacy- INITIAL Jayna Smith is a 37 y.o. year old female who Pharmacy has been consulted for vancomycin dosing for cellulitis, skin and soft tissue. Based on the patient's indication and renal status this patient will be dosed based on a goal AUC of 400-600. Renal function is currently declining. Visit Vitals BP (!) 129/100 Pulse 72 Temp 35.9 C (96.6 F) (Temporal) Resp 16 Lab Results Component Value Date CREATININE 1.66 (H) 06/06/2023 CREATININE 1.04 06/04/2023 CREATININE 1.01 04/26/2023 CREATININE 1.20 (H) 04/09/2023 Patient weight is No results found for: PTWEIGHT No results found for: CULTURE No intake/output data recorded. @IOTHISSHCASH@ Lab Results Component Value Date PATIENTTEMP 37.0 06/06/2023 Assessment/Plan Patient will not be given a loading dose. Will initiate vancomycin maintenance, 750 mg every 24 hours. This dosing regimen is predicted by [employer] to result in the following pharmacokinetic parameters: Loading dose: N/A Regimen: 750 mg IV every 24 hours. Start time: 22:12 on 06/06/2023 Exposure target: AUC24 (range)400-600 mg/L.hr AUC24,ss: 466 mg/L.hr Probability of AUC24 > 400: 84 % Ctrough,ss: 14.3 mg/L Probability of Ctrough,ss > 20: 6 % Probability of nephrotoxicity (Lodise GAIL 2008): 9 % Follow-up level will be ordered on 06/06 at AM labs, unless clinically indicated sooner. Will continue to monitor renal function daily while on vancomycin and order serum creatinine at least every 48 hours if not already ordered. Follow for continued vancomycin needs, clinical response, and signs/symptoms of toxicity. Heri Swain PharmD documented in this encounter [facility] Work Phone: 06-07-2023 Hospital Discharge instructions Jayson Tamayo MD - 06/07/2023 1:22 PM EDT Images from the original note were not included. CARDIAC CATHETERIZATION DISCHARGE INSTRUCTIONS (procedure done on 06/07/23) FOR SUDDEN AND SEVERE CHEST PAIN, SHORTNESS OF BREATH, EXCESSIVE BLEEDING, SIGNS OF STROKE, OR CHANGES IN MENTAL STATUS YOU SHOULD CALL 911 IMMEDIATELY. If your provider has prescribed aspirin and/or clopidogrel (Plavix), or prasugrel (Effient), or ticagrelor (Brilinta), DO NOT STOP THESE MEDICATIONS for any reason without talking to your manager housekeeping first. If any of these were prescribed, you must take them every day without missing a single dose. If you are getting low on these medications, contact your provider immediately for a refill. FOR NEXT 24 HOURS - Upon discharge, you should return home and rest for the remainder of the day and evening. You do not have to stay on bed rest but should not be very active. It is recommended a responsible adult be with you for the first 24 hours after the procedure. - No driving for 24 hours after procedure. Please arrange for someone to drive you home from the hospital today. - Do not drive, operate machinery, or use power tools for 24 hours after your procedure. - Do not make any legal decisions for 24 hours after your procedure. - Do not drink alcoholic beverages for 24 hours after your procedure. WOUND CARE *FOR FEMORAL (LEG) ACCESS* Avoid heavy lifting (over 10 pounds) for 7 days, squatting or excessive bending for 2 days, and strenuous exercise for 7 days. No submerged bathing, swimming, or hot tubs for the next 7 days, or until fully healed. Avoid sexual activity for 3-4 days until any groin discomfort has ceased. *FOR RADIAL (WRIST) ACCESS* No lifting more than 5 pounds or excessive use of the wrist for 24 hours - for example, treat your wrist as if it is sprained. Do not engage in vigorous activities (tennis, golf, bowling, weights) for at least 48 hours after the procedure. Do not submerge the wrist for 7 days after the procedure. You should expect mild tingling in your hand and tenderness at the puncture site for up to 3 days. - The transparent dressing should be removed from the site 24 hours after the procedure. Wash the site gently with soap and water. Rinse well and pat dry. Keep the area clean and dry. You may apply a Band-Aid to the site. Avoid lotions, ointments, or powders until fully healed. - You may shower the day after your procedure. - It is normal to notice a small bruise around the puncture site and/or a small grape sized or smaller lump. Any large bruising or large lump warrants a call to the office. - If bleeding should occur, lay down and apply pressure to the affected area for 10 minutes. If the bleeding stops notify your physician. If there is a large amount of bleeding or spurting of blood CALL [address] yourself to the hospital. - You may experience some tenderness, bruising or minimal inflammation. If you have any concerns, you may contact the Animal Caretaker or if any of these symptoms become excessive, contact your manager housekeeping or go to the emergency room. OTHER INSTRUCTIONS - You may take acetaminophen (Tylenol) as directed for discomfort. If pain is not relieved with acetaminophen (Tylenol), contact your doctor. - If you notice or experience any of the following, you should notify your doctor or seek medical attention Chest pain or discomfort Change in mental status or weakness in extremities. Dizziness, light headedness, or feeling faint. Change in the site where the procedure was performed, such as bleeding or an increased area of bruising or swelling. Tingling, numbness, pain, or coolness in the leg/arm beyond the site where the procedure was performed. Signs of infection (i.e. shaking chills, temperature > 100 degrees Fahrenheit, warmth, redness) in the leg/arm area where the procedure was performed. Changes in urination Bloody or black stools Vomiting blood Severe nose bleeds Any excessive bleeding - If you DO NOT have an appointment with your manager housekeeping within 2-4 weeks following your procedure, please contact their office. Dear Jayna Smith, It was a pleasure caring for you! You were admitted to [facility] ([facility]) on 06/06/2023 for pulmonary hypertension. 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 While you were here, your foot infection was treated with antibiotics, you started on a new medication for pulmonary hypertension called Remodulin, and you received Remodulin teaching. Please come to the emergency department if you develop any worsening symptoms. For you to do: Please take all of your medications as prescribed. Please follow up with your specialists: Follow up with Pulmonology for pulmonary hypertension management Follow up with Rheumatology for management of CREST syndrome Please follow up with your primary care provider within 1-2 weeks of discharge Please continue your Remodulin medication as per your teachings Thank you for letting us take part in your care, [facility] Pulmonology Team documented in this encounter [facility] Work Phone: 06-07-2023 History and physical note H&P reviewed. The patient was examined and there are no changes to the H&P. Reports significant fatigue. Denies CP, SOB, dizziness, lightheadedness. Source Note - Delphine Cain MD - 06/06/2023 10:48 PM EDT History Of Present Illness Jayna Smith is a 37 y.o. female PMH T2DM, HTN, Raynaud's, CKD, who is presenting as a transfer from [facility] for severe pulmonary hypertension and tricuspid regurgitation. Pt initially presented on 06/02 for left leg pain and swelling and concern for cellulitis 2/2 to a chronic anterior left leg wound and recent surgical debridement. She was admitted to [facility] on 06/03 for IV antibiotic management. Noted to have a new murmur and cardiology was consulted as a TTE on 04/08/23 revealed a dilated RA and elevated RVSP with severe TR (full report below). She was recommended to follow-up with cardiology outpatient, however does not appear that this occurred. Repeat TTE on 06/05 revealed similar findings and she was transferred to [facility] for further evaluation and management of right heart failure/pulm htn. On arrival, patient reports feeling overall well. Her main concern is the L leg pain and swelling which she noticed a couple of days prior. Over the past week she has also noticed some wheezing and a productive cough. She does endorse some exertional dyspnea but is not sure when this stared. Also reports she had two episodes of vomiting in the last week, most recently yesterday. Denies chest pain or palpitations. She denies any history of asthma/COPD; has a smoking history of about half a pack daily, unsure of duration and has since quit. Endorses social alcohol and marijuana use but denies illicit drug use. Denies arthralgias/myalgias but has noticed her R 1st and 2nd fingers becoming deformed over the past few months. Endorses some sensation of food getting stuck when eating too quickly. Denies any history of DVT/PE but does report she had keith superficial clot in her leg a few years ago that she thinks was unprovoked. She denies any family history of heart/lung disease that she is aware of. There has been concern for underlying autoimmune or connective tissue disease in the past given her hand deformities and history of Raynaud's. She recently had a positive hepatitis C antibody and NICOLE and RF tests were sent and pending. On arrival: Vitals: BP 129/100, HR 72, RR 16, O2 96% on RA, T 96.6F Labs: -CMP: BG 117, Na 131, K 5.3, Cl 99, HCO3 22, BUN 33, Cr 1.64 (baseline 1.1-1.3), Mg 1.99 -AST 17, ALT 13, alk phos 281 -BNP 1,149 -VBG: pH 7.34, CO2 38, O2 41 -Lactate 2.0 -CBC: WBC 11.8, Hgb 14.1, Plt 252 -INR 1.3, PT 14.3 -Utox (OSH): opioids and cannabis pos. -UA: negative CXR 06/05 (on arrival) Cardiomegaly, evidence of vascular congestion, no consolidations. Imaging(OSH): CT tibia fibula left w IV contrast 06/03: Final Result 1. Anterior distal tibial superficial soft tissue ulceration without underlying fluid collection. Inflammatory changes associated with the ulcer extends to the anterior bone surface of the tibia with associated periosteal reaction. No erosive change. The findings could reflect mild focal osteitis or early osteomyelitis. MRI is suggested for further evaluation. 2. Severe superficial soft tissue swelling Vascular US LLE 06/04: CONCLUSIONS: Right Lower Venous: Right common femoral vein is negative for deep vein thrombus. Left Lower Venous: No evidence of acute deep vein thrombus visualized in the left lower extremity. Cannot rule out thrombus in non-visualized posterior tibial and peroneal veins due to edema and patient refusal. Additional Findings: Unable to perform calf compressions due to patients' severe pain. XRAY L Foot: CONCLUSIONS: Right Lower Venous: Right common femoral vein is negative for deep vein thrombus. Left Lower Venous: No evidence of acute deep vein thrombus visualized in the left lower extremity. Cannot rule out thrombus in non-visualized posterior tibial and peroneal veins due to edema and patient refusal. Additional Findings: Unable to perform calf compressions due to patients severe pain. MRI L tibia/fibula/foot 06/05: IMPRESSION: Left tibia and fibula: 1. Prominent shallow soft tissue ulcer in the anterior aspect of the distal tibia. Findings suggesting diffuse cellulitis of the lower leg involving the posterior/medial aspect. 2. No evidence of abscess or osteomyelitis. Echo 04/08/23: CONCLUSIONS: 1. Left ventricular systolic function is normal with a 60% estimated ejection fraction. 2. Spectral Doppler shows an impaired relaxation pattern of left ventricular diastolic filling. 3. There is moderate concentric left ventricular hypertrophy. 4. Enlarged right ventricle with reduced systolic function. 5. D-shaped septum in systole and diastole, consistent with right ventricular pressure and volume overload. 6. Severe tricuspid regurgitation. 7. The right atrium is severely dilated. 8. Calculated right ventricular systolic pressure is 117mm Hg. 9. Small pericardial effusion with no echocardiographic evidence of tamponade. 10. Consult team informed of findings. 11. Findings are consistent with severe Pulmonary Hypertension; presence of pericardial effusion and RV systolic dysfunction are high-risk markers. Echo 06/05/23: CONCLUSIONS: 1. Left ventricular systolic function is normal with a 65% estimated ejection fraction. 2. Spectral Doppler shows an impaired relaxation pattern of left ventricular diastolic filling. 3. D-shaped septum in systole and diastole consistent with right ventricular pressure and volume overload. 4. Severely enlarged right ventricle. 5. There is severely reduced right ventricular systolic function. 6. The right atrium is severely dilated. 7. Severe tricuspid regurgitation. 8. Moderate pulmonic valve regurgitation. 9. Calculated pulmonary artery systolic pressure is 97 mmHg, consistent with pulmonary hypertension. 10. Ascites is incidentally noted. Recommend dedicated imaging. 11. Small pericardial effusion with no evidence of hemodynamic compromise. 12. Overall findings appear consistent with significant pulmonary hypertension, with signs of right ventricular dysfunction. 13. Findings appear similar to prior echocardiogram dated 04/09/2023. Past Medical History Past Medical History: Diagnosis Date Anxiety Chlamydial infection, unspecified Chlamydia Elevated LFTs 05/25/2022 GERD (gastroesophageal reflux disease) Immunization not carried out because of patient refusal Influenza vaccination declined LGSIL on Pap smear of cervix 07/20/2022 Other conditions influencing health status History of Other specified postprocedural states History of Papanicolaou smear Prediabetes Raynaud's disease Surgical History Past Surgical History: Procedure Laterality Date CERVICAL BIOPSY W/ LOOP ELECTRODE EXCISION 08/17/2014 dr. temple COLPOSCOPY 05/13/2022 MOUTH SURGERY Social History She reports that she has been smoking cigarettes. She has a 1.00 pack-year smoking history. She has never used smokeless tobacco. She reports that she does not currently use alcohol. She reports current drug use. Drug: Marijuana. Family History Family History Problem Relation Name Age of Onset No Known Problems Mother Osteoporosis Father Parkinsonism Mother's Sister Parkinsonism Maternal Grandmother Asthma Other Diabetes Other Hypertension Other Heart attack Other Allergies Amlodipine Review of Systems Constitutional: Negative for chills, fever and unexpected weight change. HENT: Positive for trouble swallowing. Respiratory: Positive for cough, shortness of breath and wheezing. Negative for chest tightness. Cardiovascular: Positive for leg swelling. Negative for chest pain and palpitations. Gastrointestinal: Positive for abdominal pain and vomiting. Negative for constipation and diarrhea. Musculoskeletal: Positive for joint swelling. Negative for arthralgias and myalgias. Skin: Positive for wound. Neurological: Negative for dizziness, syncope and light-headedness. Physical Exam Constitutional: General: She is not in acute distress. HENT: Head: Normocephalic and atraumatic. Mouth/Throat: Mouth: Mucous membranes are dry. Pharynx: No oropharyngeal exudate or posterior oropharyngeal erythema. Eyes: General: No scleral icterus. Pupils: Pupils are equal, round, and reactive to light. Cardiovascular: Rate and Rhythm: Normal rate and regular rhythm. Heart sounds: Murmur (holosystolic) heard. No friction rub. No gallop. Pulmonary: Effort: Pulmonary effort is normal. No respiratory distress. Breath sounds: Normal breath sounds. Abdominal: General: Abdomen is flat. Bowel sounds are normal. There is no distension. Palpations: Abdomen is soft. Tenderness: There is abdominal tenderness (RUQ). Musculoskeletal: General: No swelling or deformity. Right lower leg: No edema. Left lower leg: Edema present. Skin: General: Skin is warm and dry. Coloration: Skin is not jaundiced. Findings: Lesion (LLE anterior tibial wound, erythema, no purulent drainage) present. No erythema or rash. Neurological: General: No focal deficit present. Psychiatric: Mood and Affect: Mood normal. Judgment: Judgment normal. Last Recorded Vitals Blood pressure (!) 129/100, pulse 72, temperature 35.9 C (96.6 F), temperature source Temporal, resp. rate 16, height 1.727 m (5' 8), weight 81 kg (178 lb 9.2 oz), last menstrual period 06/06/2023, SpO2 96 %. Relevant Results Scheduled medications heparin (porcine), 5,000 Units, subcutaneous, q8h lactated Ringer's, 500 mL, intravenous, Once piperacillin-tazobactam, 3.375 g, intravenous, q6h Continuous medications PRN medications Assessment/Plan Principal Problem: Pulmonary hypertension (CMS/HCC) 37 yo female PMH T2DM, HTN, Raynaud's, CKD, chronic L leg wound with recent surgical debridement who presented to the hospital with concerns for cellulitis. Pt was recently discovered to have a heart murmur and follow-up TTE on 04/08 revealed severe dilated RA and RVSP of 117mmHg. Patient is overall feeling well, with her only symptom being mild dyspnea on exertion for an unknown duration. The findings of R sided heart failure and pulmonary hypertension with severe TR of unknown etiology. Concern for potential thromboembolic disease, undiagnosed underlying connective tissue disease. NEURO #[facility] #Pulmonary hypertension #Severe tricuspid regurgitation ::Echo from 04/08 showing RVSP 117mm Hg, R heart enlargement with D-shaped septum in systole and diastole ::Echo on 06/04 with similar findings, PA systolic of 97mmHg, TRV 4.5 ::Pt with no history or significant risk factors for heart disease or underlying lung pathology. ::Unclear history of VTEs, could not rule out as US was limited by pain ::Troponin 17, no concern for ischemia PLAN: -Plan for RHC and formal consult to HF -Warrants workup for underlying autoimmune/connective tissue disease -Will send NICOLE, dsDNA, RF, anca panel, CCP, SS, scl-70, HIV -Will plan for CTA chest and CT A/P to rule out PE/other sites for thrombosis pending D-dimer. PULMONARY #Pulmonary hypertension #Productive cough/wheezing ::Most likely primary vs. type IV ::Pt currently without O2 requirements ::No overt sings of PNA on CXR PLAN: -working up as above -Strict I/O and daily weights -Pending covid/flu/RSV -Sputum cultures sent RENAL/ #MAXIMO on CKD ::Unclear etiology for CKD, but may also be in line with underlying autoimmune etiology PLAN: -Avoiding nephrotoxins -Fluid resuscitation prior to contrast GI #Elevated liver enzymes, cholestatic pattern ::AST 17, ALT 13, alk phos 281, R-factor 0.1 ::mild RUQ pain, Lazar's sign negative on exam ::Positive hepatitis C antibody PLAN: -Would consider RUQ US for gallbladder pathology/portal vein thrombosis if indicated ID #LLE cellulitis #C/f URI PLAN: -Sent blood, sputum, and wound cultures -Resp viral panel -Abx coverage with Zosyn, may broaden to vanc/cefepime -Consult placed to wound care MSK/DERM #R hand bouton deformity and ulcer #Raynaud's #GERD ::may be in the setting of undiagnosed systemic sclerosis, RA, SLE, vasculitis. PLAN: -Sending autoimmune/connective tissue workup as above F: 500LR bolus E: PRN N: NPO @mn A: PIVs GI ppx: None DVT ppx: SQH Code status: Full (confirmed on admission) NOK: Rocio Sánhcez [phone] Delphine Cain MD Internal Medicine PGY-2 History Of Present Illness Jayna Smith is a 37 y.o. female PMH T2DM, HTN, Raynaud's, CKD, who is presenting as a transfer from [facility] for severe pulmonary hypertension and tricuspid regurgitation. Pt initially presented on 06/02 for left leg pain and swelling and concern for cellulitis 2/2 to a chronic anterior left leg wound and recent surgical debridement. She was admitted to [facility] on 06/03 for IV antibiotic management. Noted to have a new murmur and cardiology was consulted as a TTE on 04/08/23 revealed a dilated RA and elevated RVSP with severe TR (full report below). She was recommended to follow-up with cardiology outpatient, however does not appear that this occurred. Repeat TTE on 06/05 revealed similar findings and she was transferred to [facility] for further evaluation and management of right heart failure/pulm htn. On arrival, patient reports feeling overall well. Her main concern is the L leg pain and swelling which she noticed a couple of days prior. Over the past week she has also noticed some wheezing and a productive cough. She does endorse some exertional dyspnea but is not sure when this stared. Also reports she had two episodes of vomiting in the last week, most recently yesterday. Denies chest pain or palpitations. She denies any history of asthma/COPD; has a smoking history of about half a pack daily, unsure of duration and has since quit. Endorses social alcohol and marijuana use but denies illicit drug use. Denies arthralgias/myalgias but has noticed her R 1st and 2nd fingers becoming deformed over the past few months. Endorses some sensation of food getting stuck when eating too quickly. Denies any history of DVT/PE but does report she had keith superficial clot in her leg a few years ago that she thinks was unprovoked. She denies any family history of heart/lung disease that she is aware of. There has been concern for underlying autoimmune or connective tissue disease in the past given her hand deformities and history of Raynaud's. She recently had a positive hepatitis C antibody and NICOLE and RF tests were sent and pending. On arrival: Vitals: BP 129/100, HR 72, RR 16, O2 96% on RA, T 96.6F Labs: -CMP: BG 117, Na 131, K 5.3, Cl 99, HCO3 22, BUN 33, Cr 1.64 (baseline 1.1-1.3), Mg 1.99 -AST 17, ALT 13, alk phos 281 -BNP 1,149 -VBG: pH 7.34, CO2 38, O2 41 -Lactate 2.0 -CBC: WBC 11.8, Hgb 14.1, Plt 252 -INR 1.3, PT 14.3 -Utox (OSH): opioids and cannabis pos. -UA: negative CXR 06/05 (on arrival) Cardiomegaly, evidence of vascular congestion, no consolidations. Imaging(OSH): CT tibia fibula left w IV contrast 06/03: Final Result 1. Anterior distal tibial superficial soft tissue ulceration without underlying fluid collection. Inflammatory changes associated with the ulcer extends to the anterior bone surface of the tibia with associated periosteal reaction. No erosive change. The findings could reflect mild focal osteitis or early osteomyelitis. MRI is suggested for further evaluation. 2. Severe superficial soft tissue swelling Vascular US LLE 06/04: CONCLUSIONS: Right Lower Venous: Right common femoral vein is negative for deep vein thrombus. Left Lower Venous: No evidence of acute deep vein thrombus visualized in the left lower extremity. Cannot rule out thrombus in non-visualized posterior tibial and peroneal veins due to edema and patient refusal. Additional Findings: Unable to perform calf compressions due to patients' severe pain. XRAY L Foot: CONCLUSIONS: Right Lower Venous: Right common femoral vein is negative for deep vein thrombus. Left Lower Venous: No evidence of acute deep vein thrombus visualized in the left lower extremity. Cannot rule out thrombus in non-visualized posterior tibial and peroneal veins due to edema and patient refusal. Additional Findings: Unable to perform calf compressions due to patients severe pain. MRI L tibia/fibula/foot 06/05: IMPRESSION: Left tibia and fibula: 1. Prominent shallow soft tissue ulcer in the anterior aspect of the distal tibia. Findings suggesting diffuse cellulitis of the lower leg involving the posterior/medial aspect. 2. No evidence of abscess or osteomyelitis. Echo 04/08/23: CONCLUSIONS: 1. Left ventricular systolic function is normal with a 60% estimated ejection fraction. 2. Spectral Doppler shows an impaired relaxation pattern of left ventricular diastolic filling. 3. There is moderate concentric left ventricular hypertrophy. 4. Enlarged right ventricle with reduced systolic function. 5. D-shaped septum in systole and diastole, consistent with right ventricular pressure and volume overload. 6. Severe tricuspid regurgitation. 7. The right atrium is severely dilated. 8. Calculated right ventricular systolic pressure is 117mm Hg. 9. Small pericardial effusion with no echocardiographic evidence of tamponade. 10. Consult team informed of findings. 11. Findings are consistent with severe Pulmonary Hypertension; presence of pericardial effusion and RV systolic dysfunction are high-risk markers. Echo 06/05/23: CONCLUSIONS: 1. Left ventricular systolic function is normal with a 65% estimated ejection fraction. 2. Spectral Doppler shows an impaired relaxation pattern of left ventricular diastolic filling. 3. D-shaped septum in systole and diastole consistent with right ventricular pressure and volume overload. 4. Severely enlarged right ventricle. 5. There is severely reduced right ventricular systolic function. 6. The right atrium is severely dilated. 7. Severe tricuspid regurgitation. 8. Moderate pulmonic valve regurgitation. 9. Calculated pulmonary artery systolic pressure is 97 mmHg, consistent with pulmonary hypertension. 10. Ascites is incidentally noted. Recommend dedicated imaging. 11. Small pericardial effusion with no evidence of hemodynamic compromise. 12. Overall findings appear consistent with significant pulmonary hypertension, with signs of right ventricular dysfunction. 13. Findings appear similar to prior echocardiogram dated 04/09/2023. Past Medical History Past Medical History: Diagnosis Date Anxiety Chlamydial infection, unspecified Chlamydia Elevated LFTs 05/25/2022 GERD (gastroesophageal reflux disease) Immunization not carried out because of patient refusal Influenza vaccination declined LGSIL on Pap smear of cervix 07/20/2022 Other conditions influencing health status History of Other specified postprocedural states History of Papanicolaou smear Prediabetes Raynaud's disease Surgical History Past Surgical History: Procedure Laterality Date CERVICAL BIOPSY W/ LOOP ELECTRODE EXCISION 08/17/2014 dr. temple COLPOSCOPY 05/13/2022 MOUTH SURGERY Social History She reports that she has been smoking cigarettes. She has a 1.00 pack-year smoking history. She has never used smokeless tobacco. She reports that she does not currently use alcohol. She reports current drug use. Drug: Marijuana. Family History Family History Problem Relation Name Age of Onset No Known Problems Mother Osteoporosis Father Parkinsonism Mother's Sister Parkinsonism Maternal Grandmother Asthma Other Diabetes Other Hypertension Other Heart attack Other Allergies Amlodipine Review of Systems Constitutional: Negative for chills, fever and unexpected weight change. HENT: Positive for trouble swallowing. Respiratory: Positive for cough, shortness of breath and wheezing. Negative for chest tightness. Cardiovascular: Positive for leg swelling. Negative for chest pain and palpitations. Gastrointestinal: Positive for abdominal pain and vomiting. Negative for constipation and diarrhea. Musculoskeletal: Positive for joint swelling. Negative for arthralgias and myalgias. Skin: Positive for wound. Neurological: Negative for dizziness, syncope and light-headedness. Physical Exam Constitutional: General: She is not in acute distress. HENT: Head: Normocephalic and atraumatic. Mouth/Throat: Mouth: Mucous membranes are dry. Pharynx: No oropharyngeal exudate or posterior oropharyngeal erythema. Eyes: General: No scleral icterus. Pupils: Pupils are equal, round, and reactive to light. Cardiovascular: Rate and Rhythm: Normal rate and regular rhythm. Heart sounds: Murmur (holosystolic) heard. No friction rub. No gallop. Pulmonary: Effort: Pulmonary effort is normal. No respiratory distress. Breath sounds: Normal breath sounds. Abdominal: General: Abdomen is flat. Bowel sounds are normal. There is no distension. Palpations: Abdomen is soft. Tenderness: There is abdominal tenderness (RUQ). Musculoskeletal: General: No swelling or deformity. Right lower leg: No edema. Left lower leg: Edema present. Skin: General: Skin is warm and dry. Coloration: Skin is not jaundiced. Findings: Lesion (LLE anterior tibial wound, erythema, no purulent drainage) present. No erythema or rash. Neurological: General: No focal deficit present. Psychiatric: Mood and Affect: Mood normal. Judgment: Judgment normal. Last Recorded Vitals Blood pressure (!) 129/100, pulse 72, temperature 35.9 C (96.6 F), temperature source Temporal, resp. rate 16, height 1.727 m (5' 8), weight 81 kg (178 lb 9.2 oz), last menstrual period 06/06/2023, SpO2 96 %. Relevant Results Scheduled medications heparin (porcine), 5,000 Units, subcutaneous, q8h lactated Ringer's, 500 mL, intravenous, Once piperacillin-tazobactam, 3.375 g, intravenous, q6h Continuous medications PRN medications Assessment/Plan Principal Problem: Pulmonary hypertension (CMS/HCC) 37 yo female PMH T2DM, HTN, Raynaud's, CKD, chronic L leg wound with recent surgical debridement who presented to the hospital with concerns for cellulitis. Pt was recently discovered to have a heart murmur and follow-up TTE on 04/08 revealed severe dilated RA and RVSP of 117mmHg. Patient is overall feeling well, with her only symptom being mild dyspnea on exertion for an unknown duration. The findings of R sided heart failure and pulmonary hypertension with severe TR of unknown etiology. Concern for potential thromboembolic disease, undiagnosed underlying connective tissue disease. NEURO #[facility] #Pulmonary hypertension #Severe tricuspid regurgitation ::Echo from 04/08 showing RVSP 117mm Hg, R heart enlargement with D-shaped septum in systole and diastole ::Echo on 06/04 with similar findings, PA systolic of 97mmHg, TRV 4.5 ::Pt with no history or significant risk factors for heart disease or underlying lung pathology. ::Unclear history of VTEs, could not rule out as US was limited by pain ::Troponin 17, no concern for ischemia PLAN: -Plan for RHC and formal consult to HF -Warrants workup for underlying autoimmune/connective tissue disease -Will send NICOLE, dsDNA, RF, anca panel, CCP, SS, scl-70, HIV -Will plan for CTA chest and CT A/P to rule out PE/other sites for thrombosis pending D-dimer. PULMONARY #Pulmonary hypertension #Productive cough/wheezing ::Most likely primary vs. type IV ::Pt currently without O2 requirements ::No overt sings of PNA on CXR PLAN: -working up as above -Strict I/O and daily weights -Pending covid/flu/RSV -Sputum cultures sent RENAL/ #MAXIMO on CKD ::Unclear etiology for CKD, but may also be in line with underlying autoimmune etiology PLAN: -Avoiding nephrotoxins -Fluid resuscitation prior to contrast GI #Elevated liver enzymes, cholestatic pattern ::AST 17, ALT 13, alk phos 281, R-factor 0.1 ::mild RUQ pain, Lazar's sign negative on exam ::Positive hepatitis C antibody PLAN: -Would consider RUQ US for gallbladder pathology/portal vein thrombosis if indicated ID #LLE cellulitis #C/f URI PLAN: -Sent blood, sputum, and wound cultures -Resp viral panel -Abx coverage with Zosyn, may broaden to vanc/cefepime -Consult placed to wound care MSK/DERM #R hand bouton deformity and ulcer #Raynaud's #GERD ::may be in the setting of undiagnosed systemic sclerosis, RA, SLE, vasculitis. PLAN: -Sending autoimmune/connective tissue workup as above F: 500LR bolus E: PRN N: NPO @mn A: PIVs GI ppx: None DVT ppx: SQH Code status: Full (confirmed on admission) NOK: Rocio Sánchez [phone] Delphine Cain MD Internal Medicine PGY-2 Associated attestation - Daniel Pink MD - 06/07/2023 12:14 AM EDT I have seen and examined this patient on the day of service. I have reviewed and confirmed the history, physical exam, laboratory and radiographic data as documented in resident/fellow/hospitalist note. I have reviewed and discussed my treatment plan with the ICU team and other medical/travel sales consultant staff. My clinical care was provided based on evaluation and management of the following active hospital problems: Principal Problem: Pulmonary hypertension (CMS/HCC) 37 yo female PMH T2DM, HTN, Raynaud's, CKD, chronic L leg wound with recent surgical debridement who presents to the ICU with RV failure in setting of severe TR and pulmonary hypertension. With recent TTE on 04/08 revealing severe dilated RA and RVSP of 117mmHg. CTA [facility] Cardiology consultation Plan as above. Critical Care Time: I have spent 67 minutes in full attendance with this critically ill patient making frequent reassessments and decisions regarding this patient's complex medical care. Critical care time was exclusive of separately billable procedures, treating other patients and teaching time. Critical care was required for cardiopulmonary monitoring in setting of new RV failure. documented in this encounter [facility] Work Phone: 06-06-2023 Nurse Note [id number] report called to JOHN Garibay at [facility]. [facility] 06-06-2023 Nurse Note [id number] report called to JOHN Garibay at [facility]. documented in this encounter [facility] Work Phone: 06-06-2023 History of Present illness Narrative Jayna Smith is a 37 y.o. female on day 1 of admission presenting with Cellulitis. Subjective Patient is seen and at bedside. Patient has multiple complaints. She was admitted here for a recurrent cellulitis infection to the left lower leg. Objective Physical Exam Physical Exam Constitutional: General: She is not in acute distress. Appearance: She is ill-appearing. Comments: Awake alert and oriented x3 HENT: Mouth/Throat: Pharynx: Oropharynx is clear. Eyes: Pupils: Pupils are equal, round, and reactive to light. Cardiovascular: Rate and Rhythm: Normal rate and regular rhythm. Heart sounds: Normal heart sounds. Pulmonary: Effort: No respiratory distress. Breath sounds: Normal breath sounds. No wheezing or rhonchi. Abdominal: General: Abdomen is flat. Bowel sounds are normal. There is no distension. Palpations: Abdomen is soft. Tenderness: There is no abdominal tenderness. Musculoskeletal: Comments: Left lower extremity significant edema starting from the left foot all the way up to the thighs. At the foot, there is also erythema and warmth. At the left lower third of the leg, there is a wound dressing. Further description of the wound per the ER physician documentation. Skin: General: Skin is warm. Neurological: General: No focal deficit present. Psychiatric: Mood and Affect: Mood normal. Behavior: Behavior normal. Thought Content: Thought content normal. Judgment: Judgment normal. Last Recorded Vitals Blood pressure 102/69, pulse 71, temperature 36 C (96.8 F), temperature source Temporal, resp. rate 18, height 1.727 m (5' 7.99), weight 80.8 kg (178 lb 2.1 oz), SpO2 97 %. Intake/Output last 3 Shifts: I/O last 3 completed shifts: In: 2945 (36.4 mL/kg) [P.O.:1095; IV Piggyback:1850] Out: 850 (10.5 mL/kg) [Urine:450 (0.2 mL/kg/hr); Emesis/NG output:400] Weight: 80.8 kg Relevant Results Scheduled medications ketorolac, 30 mg, intravenous, q6h LOUISE nicotine, 1 patch, transdermal, Daily pantoprazole, 20 mg, oral, Daily before breakfast polyethylene glycol, 17 g, oral, Daily vancomycin (Vancocin) 750 mg in dextrose 5 % in water (D5W) 250 mL IV, 750 mg, intravenous, q24h Continuous medications PRN medications PRN medications: acetaminophen OR acetaminophen OR acetaminophen, busPIRone, magnesium hydroxide, ondansetron ODT OR ondansetron, oxyCODONE, traMADol, vancomycin Results for orders placed or performed during the hospital encounter of 06/04/23 (from the past 24 hour(s)) Vancomycin Result Value Ref Range Vancomycin 27.9 (H) 5.0 - 20.0 ug/mL CBC Result Value Ref Range WBC 9.3 4.4 - 11.3 x10*3/uL nRBC 0.0 0.0 - 0.0 /100 WBCs RBC 5.26 (H) 4.00 - 5.20 x10*6/uL Hemoglobin 14.7 12.0 - 16.0 g/dL Hematocrit 46.4 (H) 36.0 - 46.0 % MCV 88 80 - 100 fL MCH 27.9 26.0 - 34.0 pg MCHC 31.7 (L) 32.0 - 36.0 g/dL RDW 15.9 (H) 11.5 - 14.5 % Platelets 235 150 - 450 x10*3/uL Comprehensive metabolic panel Result Value Ref Range Glucose 133 (H) 74 - 99 mg/dL Sodium 130 (L) 136 - 145 mmol/L Potassium 4.7 3.5 - 5.3 mmol/L Chloride 99 98 - 107 mmol/L Bicarbonate 21 21 - 32 mmol/L Anion Gap 15 10 - 20 mmol/L Urea Nitrogen 29 (H) 6 - 23 mg/dL Creatinine 1.66 (H) 0.50 - 1.05 mg/dL eGFR 40 (L) >60 mL/min/1.73m*2 Calcium 8.3 (L) 8.6 - 10.3 mg/dL Albumin 2.9 (L) 3.4 - 5.0 g/dL Alkaline Phosphatase 290 (H) 33 - 110 U/L Total Protein 5.8 (L) 6.4 - 8.2 g/dL AST 87 (H) 9 - 39 U/L Bilirubin, Total 2.0 (H) 0.0 - 1.2 mg/dL ALT 53 (H) 7 - 45 U/L C-reactive protein Result Value Ref Range C-Reactive Protein 12.10 (H) <1.00 mg/dL Hemoglobin A1c Result Value Ref Range Hemoglobin A1C 6.7 (H) see below % Estimated Average Glucose 146 Not Established mg/dL Transthoracic Echo (TTE) Complete Result Value Ref Range LVOT diam 2.20 cm AV pk edita 0.92 m/s AV mn grad 2.0 mmHg LV biplane EF 58 % LA vol index A/L 16.3 ml/m2 LVIDd 2.75 cm RVSP 85.4 mmHg Aortic Valve Area by Continuity of Peak Velocity 2.96 cm2 Aortic Valve Area by Continuity of VTI 2.60 cm2 AV pk grad 3.4 mmHg LV A4C EF 74.1 Drug Screen, Urine Result Value Ref Range Amphetamine Screen, Urine Presumptive Negative Presumptive Negative Barbiturate Screen, Urine Presumptive Negative Presumptive Negative Benzodiazepines Screen, Urine Presumptive Negative Presumptive Negative Cannabinoid Screen, Urine Presumptive Positive (A) Presumptive Negative Cocaine Metabolite Screen, Urine Presumptive Negative Presumptive Negative Fentanyl Screen, Urine Presumptive Negative Presumptive Negative Opiate Screen, Urine Presumptive Positive (A) Presumptive Negative Oxycodone Screen, Urine Presumptive Negative Presumptive Negative PCP Screen, Urine Presumptive Negative Presumptive Negative Methadone Screen, Urine Presumptive Negative Presumptive Negative Transthoracic Echo (TTE) Complete Result Date: 06/06/2023 [place] [address] [id number], TRANSTHORACIC ECHOCARDIOGRAM REPORT Patient Name: JAYNA Teresa Physician: [id number] Emre Silverio MD Study Date: 06/06/2023 Ordering Provider: [id number] MELISSA ESQUIVEL MRN/PID: [id number] Fellow: Nurse: Rosalia Galvin RN Date of /Age: 8 1985 / 37 years [employer] Teacher: Monty Martin RDCS Gender: F Additional Staff: Height: 170.18 cm Admit Date: 06/05/2023 Weight: 80.74 kg Admission Status: Inpatient - Routine BSA / BMI: 1.92 m2 / 27.88 kg/m2 Department Location: [address] Blood Pressure: 128 /91 mmHg Study Type: TRANSTHORACIC ECHO (TTE) COMPLETE Diagnosis/ICD: Pulmonary hypertension, unspecified-I27.20 CPT Codes: Echo Complete w Full Doppler-01774 Study Detail: The following Echo studies were performed: 2D, M-Mode, Doppler and color flow. Definity used as a contrast agent for endocardial border definition. Total contrast used for this procedure was 1.50cc mL via IV push. PHYSICIAN INTERPRETATION: Left Ventricle: Left ventricular systolic function is normal, with an estimated ejection fraction of 65%. There are no regional wall motion abnormalities. The left ventricular cavity size is normal. There is mild left ventricular hypertrophy. Spectral Doppler shows an impaired relaxation pattern of left ventricular diastolic filling. Left Atrium: The left atrium is normal in size. Right Ventricle: The right ventricle is severely enlarged. There is severely reduced right ventricular systolic function. Right Atrium: The right atrium is severely dilated. Aortic Valve: The aortic valve is trileaflet. There is no evidence of aortic valve regurgitation. The peak instantaneous gradient of the aortic valve is 3.4 mmHg. The mean gradient of the aortic valve is 2.0 mmHg. Mitral Valve: The mitral valve is normal in structure. There is no evidence of mitral valve regurgitation. Tricuspid Valve: The tricuspid valve is structurally normal. There is severe tricuspid regurgitation. Pulmonic Valve: The pulmonic valve is structurally normal. There is moderate pulmonic valve regurgitation. Pericardium: There is a small pericardial effusion. Aorta: The aortic root is normal. Systemic Veins: The inferior vena cava appears dilated. There is less than 50% IVC collapse with inspiration. CONCLUSIONS: 1. Left ventricular systolic function is normal with a 65% estimated ejection fraction. 2. Spectral Doppler shows an impaired relaxation pattern of left ventricular diastolic filling. 3. D-shaped septum in systole and diastole consistent with right ventricular pressure and volume overload. 4. Severely enlarged right ventricle. 5. There is severely reduced right ventricular systolic function. 6. The right atrium is severely dilated. 7. Severe tricuspid regurgitation. 8. Moderate pulmonic valve regurgitation. 9. Calculated pulmonary artery systolic pressure is 97 mmHg, consistent with pulmonary hypertension. 10. Ascites is incidentally noted. Recommend dedicated imaging. 11. Small pericardial effusion with no evidence of hemodynamic compromise. 12. Overall findings appear consistent with significant pulmonary hypertension, with signs of right ventricular dysfunction. 13. Findings appear similar to prior echocardiogram dated 04/09/2023. QUANTITATIVE DATA SUMMARY: 2D MEASUREMENTS: Normal Ranges: Ao Root d: 3.10 cm (2.0-3.7cm) LAs: 2.60 cm (2.7-4.0cm) IVSd: 1.36 cm (0.6-1.1cm) LVPWd: 1.29 cm (0.6-1.1cm) LVIDd: 2.75 cm (3.9-5.9cm) LVIDs: 1.68 cm LV Mass Index: 61.7 g/m2 LV % FS 38.9 % LA VOLUME: Normal Ranges: LA Vol A4C: 24.5 ml (22+/-6mL/m2) LA Vol A2C: 35.1 ml LA Vol BP: 31.5 ml LA Vol Index A4C: 12.7ml/m2 LA Vol Index A2C: 18.2 ml/m2 LA Vol Index BP: 16.3 ml/m2 LA Area A4C: 11.9 cm2 LA Area A2C: 15.3 cm2 LA Major [place] A4C: 4.9 cm LA Major [place] A2C: 5.7 cm LA Volume Index: 11.8 ml/m2 LA Vol A4C: 22.6 ml LA Vol A2C: 32.5 ml LV SYSTOLIC FUNCTION BY 2D PLANIMETRY (MOD): Normal Ranges: EF-A4C View: 74.1 % (>=55%) EF-A2C View: 42.9 % EF-Biplane: 58.2 % AORTIC VALVE: Normal Ranges: AoV Vmax: 0.92 m/s (<=1.7m/s) AoV Peak P.4 mmHg (<20mmHg) AoV Mean P.0 mmHg (1.7-11.5mmHg) LVOT Max Edita: 0.72 m/s (<=1.1m/s) AoV VTI: 14.90 cm (18-25cm) LVOT VTI: 10.20 cm LVOT Diameter: 2.20 cm (1.8-2.4cm) AoV Area, VTI: 2.60 cm2 (2.5-5.5cm2) AoV Area,Vmax: 2.96 cm2 (2.5-4.5cm2) AoV Dimensionless Index: 0.68 RIGHT VENTRICLE: RV Basal 6.48 cm RV Mid 4.15 cm RV Major 9.1 cm TRICUSPID VALVE/RVSP: Normal Ranges: Peak TR Velocity: 4.54 m/s RV Syst Pressure: 85.4 mmHg (< 30mmHg) [id number] Emre Silverio MD Electronically signed on 06/06/2023 at 1:22:01 PM Final XR hand right 1-2 views Result Date: 06/06/2023 Interpreted By: Liang Robles, STUDY: XR HAND RIGHT 1-2 VIEWS 06/06/2023 10:07 am INDICATION: Signs/Symptoms:Attention 2nd and 3rd finger distal. r/o osteo COMPARISON: None. ACCESSION NUMBER(S): [id number] ORDERING CLINICIAN: JANIA WINSLOW TECHNIQUE: 2 views of the right hand including AP and lateral projections were obtained. FINDINGS: The study is limited by difficulty with patient positioning as the patient was unable to straighten there 2nd and 3rd digits. There is no evidence of acute fracture or dislocation identified. No definite osseous lytic lesions are identified. The joint spaces are well preserved throughout without significant degenerative changes. 1. No fracture or dislocation. MACRO: None. Signed by: Liang Robles 06/06/2023 10:32 AM Dictation workstation: [id number] Vascular US Lower Extremity Venous Duplex Left Result Date: 06/05/2023 [place] [address] [id number], Vascular Lab Report VASC US LOWER EXTREMITY VENOUS DUPLEX LEFT Patient Name: JAYNA Teresa Physician: [id number] Rubina Castaneda MD Study Date: 06/05/2023 Ordering Provider: [id number] LETHA LAYTON MRN/PID: [id number] Fellow: Technologist: Bren Lizama RVT/AB Date of 1985 Technologist 2: /Age: years Gender: F Admission Status: Inpatient Location [facility] Performed: Diagnosis/ICD: Localized (leg) edema-R60.0 CPT Codes: 05648 Peripheral venous duplex scan for DVT Limited CONCLUSIONS: Right Lower Venous: Right common femoral vein is negative for deep vein thrombus. Left Lower Venous: No evidence of acute deep vein thrombus visualized in the left lower extremity. Cannot rule out thrombus in non-visualized posterior tibial and peroneal veins due to edema and patient refusal. Additional Findings: Unable to perform calf compressions due to patients severe pain. Imaging & Doppler Findings: Right Compressible Flow Distal External Iliac Yes Pulsatile CFV Yes Pulsatile Left Compress Thrombus Flow Distal External Iliac Yes None Pulsatile CFV Yes None Pulsatile PFV Yes None FV Proximal Yes None Pulsatile FV Mid Yes None FV Distal Yes None Popliteal Yes None Pulsatile [id number] Rubina Castaneda MD Final XR foot left 3+ views Result Date: 06/05/2023 Interpreted By: Alejandro Interiano, STUDY: XR FOOT LEFT 3+ VIEWS; ; 06/05/2023 1:40 pm INDICATION: Signs/Symptoms:dog bite. COMPARISON: None. ACCESSION NUMBER(S): [id number] ORDERING CLINICIAN: FELICIA BARBOSA FINDINGS: LEFT FOOT-AP, LATERAL AND OBLIQUE VIEWS MILD DEGENERATIVE CHANGES ARE PRESENT AT THE 1ST MTP JOINT AND THE TALONAVICULAR JOINT. A SOFT TISSUE SWELLING IS PRESENT ON THE DORSAL ASPECT OF THE MID AND DISTAL FOOT. NO RADIOPAQUE FOREIGN BODY IS SEEN. NO FRACTURE. NO RADIOPAQUE FOREIGN BODY SOFT TISSUE SWELLING ON THE DORSAL ASPECT OF THE MID AND DISTAL FOOT. MACRO: None Signed by: Alejandro Interiano 06/05/2023 2:17 PM Dictation workstation: [id number] CT tibia fibula left w IV contrast Result Date: 06/05/2023 Interpreted By: Jesús Rubalcava, STUDY: CT TIBIA FIBULA LEFT W IV CONTRAST; 06/04/2023 11:20 pm INDICATION: Signs/Symptoms:wound. COMPARISON: 04/26/2023 radiographs ACCESSION NUMBER(S): [id number] ORDERING CLINICIAN: JOSUÉ IGLESIAS TECHNIQUE: Axial CT of the left tibia/fibula was performed with sagittal and coronal reformats. Intravenous contrast was administered, 80 mL Omnipaque 350. FINDINGS: There is severe subcutaneous edema throughout the lower leg. There are extensive subcutaneous venous varices. There is focal skin/superficial soft tissue ulceration at the anterior distal tibia with underlying inflammatory change that extends to the surface of tibia with associated coarse periosteal reaction (axial image 159/240) no tibial erosive change is identified. No organized fluid collection. No knee joint effusion. Bone islands within the medial distal femur and proximal tibia. 1. Anterior distal tibial superficial soft tissue ulceration without underlying fluid collection. Inflammatory changes associated with the ulcer extends to the anterior bone surface of the tibia with associated periosteal reaction. No erosive change. The findings could reflect mild focal osteitis or early osteomyelitis. MRI is suggested for further evaluation. 2. Severe superficial soft tissue swelling. Signed by: Jesús Rubalcava 06/05/2023 12:26 AM Dictation workstation: [id number] Assessment/Plan Principal Problem: Cellulitis 37-year-old female, smoker, with a past medical history of chronic left anterior leg wound status postsurgical debridement back on April 2023, hypertension, anxiety, Raynaud's disease, and constipation who presented to the emergency room for worsening left lower extremity swelling and pain. Cellulitis to left lower extremity. -Consult to Dr. Ventura -Patient has left leg wound that has been present on and off for 2 years. She also has a sore to the top of her second toe on the left foot. -CRP and sed rate are elevated -Continue IV Vanco. Please note that patient's last wound culture only showed MSSA. -MRI w/o contrast to the left lower leg ordered to rule out osteomyelitis Abnormal changes to second and third finger of right hand -Appears to be fungal but there is also erythema to the distal tip of the second finger. Nail is very loose -X-ray ordered. MAXIMO - Creatine did increase from 1.04 to 1.6. Likely related to the vanco. But monitor closely. Severe tricuspid regurgitation and pulmonary hypertension -Patient had an abnormal echo in March -Cardiology consult placed and input appreciated -Patient admits to unintentional weight loss -Echocardiogram performed today shows ejection fraction 60%, moderate concentric left ventricular hypertrophy enlarged right ventricle with reduced systolic function, D-shaped septum in systole and diastole consistent with right ventricular pressure and volume overload, severe tricuspid regurgitation, right atrium is severely dilated, calculated right ventricular systolic pressure is 117 mmHg, small pericardial effusion with no echocardiographic evidence of tamponade, findings are consistent with severe pulmonary hypertension and presence of pericardial effusion and right ventricular distal systolic dysfunction at high risk markers -Cardiology recommended patient to be transferred to the ICU and it is recommended that [place] [facility] [place]. -It is likely patient has underlying connective tissue disorder such as SLE which would explain her unusual vasculopathy, deformity of the right fingers (swan-neck appearance) suspicious for arthralgias, known presence of Raynaud's disease, hypoalbuminemia, elevated creatinine, elevated liver enzymes, If SLE is confirmed, a ANTONIA will be recommended to rule out verrucous endocarditis -Rheumatoid factor and NICOLE ordered Elevated liver enzymes -Acute hepatic panel ordered -Patient denies street drug use. Positive use of marijuana. Positive smoker. -Urine tox screen ordered which shows positive use of marijuana and opioids Prediabetes -Hemoglobin A1c 6.7 monitor glucose levels. Full code I spent 45 minutes in the professional and overall care of this patient. Jania Winslow PA-C Occupational Therapy Evaluation Patient Name: Jayna Smith Today's Date: 06/06/2023 Time Calculation Start Time: 1138 Stop Time: 1149 Time Calculation (min): 11 min Assessment IP OT Assessment OT Assessment: pt is indep in ADLs yet does walk with a limp due to pain in leg. no further OT recommended at this time Plan: No Skilled OT: Independent with ADLs OT Frequency: OT eval only OT Discharge Recommendations: No further acute OT, No OT needed after discharge OT Recommended Transfer Status: Independent Subjective Current Problem: 1. Cellulitis Vascular US Lower Extremity Venous Duplex Left Vascular US Lower Extremity Venous Duplex Left CANCELED: Vascular US Lower Extremity Venous Duplex Bilateral CANCELED: Vascular US Lower Extremity Venous Duplex Bilateral 2. Localized edema Vascular US Lower Extremity Venous Duplex Left 3. Severe tricuspid regurgitation by prior echocardiogram Transthoracic Echo (TTE) Complete Transthoracic Echo (TTE) Complete 4. Pulmonary hypertension (CMS/HCC) Transthoracic Echo (TTE) Complete Transthoracic Echo (TTE) Complete 5. Difficulty walking General: General Reason for Referral: left leg wound, possible osteomyelitis- awaiting MRI Referred By: Chas Family/Caregiver Present: No Co-Treatment: PT Co-Treatment Reason: maximize pt safety Prior to Session Communication: Bedside nurse General Comment: pt agreeable to assessment Pain: Pain Assessment Pain Assessment: 0-10 Pain Score: 3 Pain Location: Leg Pain Orientation: Left Objective Cognition: Overall Cognitive Status: Within Functional Limits Home Living: Type of Home: House Lives With: Spouse, Dependent children Home Living Comments: has stairs in home with bilateral rails, states she navigates them one step at a time; doesn't have any adaptive devices at home Prior Function: Level of [place]: Independent with ADLs and functional transfers, Independent with homemaking with ambulation Prior Function Comments: has wound on her right hand/finger as well making it difficult to grasp ADL: Eating Assistance: Independent Grooming Assistance: Independent Bathing Assistance: Independent UE Dressing Assistance: Independent LE Dressing Assistance: Independent Toileting Assistance with Device: Independent Functional Assistance: Independent Bed Mobility/Transfers: Bed Mobility Bed Mobility: No Transfers Transfer: Yes Transfer 1 Transfer From 1: Sit to, Stand to Transfer to 1: Sit, Stand Transfer Level of Assistance 1: Independent Ambulation/Gait Training: Functional Mobility Functional Mobility Performed: Yes Functional Mobility 1 Surface 1: Level tile Device 1: No device Assistance 1: Independent Vision: and Vision - Complex Assessment Ocular Range of Motion: Within Functional Limits Sensation: Light Touch: No apparent deficits Strength: Strength Comments: WFL - wound on right hand Outcome Measures: [facility] Daily Activity Putting on and taking off regular lower body clothing: None Bathing (including washing, rinsing, drying): None Putting on and taking off regular upper body clothing: None Toileting, which includes using toilet, bedpan or urinal: None Taking care of personal grooming such as brushing teeth: None Eating Meals: None Daily Activity - Total Score: 24 Physical Therapy Physical Therapy Evaluation Patient Name: Jayna Smith Today's Date: 06/06/2023 Time Calculation Start Time: 1139 Stop Time: 1153 Time Calculation (min): 14 min Assessment/Plan Skilled PT intervention is indicated due to patient presents with deficits in gait, stair negotiation, strength, activity tolerance, and safety awareness. Patient would benefit from using an assistive device (cane or FWW) to support her left leg/reduce pain/improve balance during gait. Patient would bneefit from additional gait training and education as needed to improve ability to ambulate with use of device and to reduce pain and fall risk. PT Assessment PT Assessment Results: Decreased mobility, Impaired balance, Pain Rehab Prognosis: Good End of Session Communication: Bedside nurse Assessment Comment: patient would benefit from use of AD to reduce pressure/pain on LLE with gait and to improve stepping/reduce fall risk End of Session Patient Position: (sitting on EOB with nurse present) IP OR SWING BED PT PLAN Inpatient or Swing Bed: Inpatient PT Plan Treatment/Interventions: Gait training, Stair training, Therapeutic activity, Therapeutic exercise, Home exercise program PT Plan: Skilled PT PT Frequency: 4 times per week PT Discharge Recommendations: Low intensity level of continued care Equipment Recommended upon Discharge: Straight cane, Wheeled walker PT Recommended Transfer Status: Independent Subjective Current Problem: Patient Active Problem List Diagnosis Abnormal uterine bleeding (AUB) BPPV (benign paroxysmal positional vertigo) Cervix dysplasia Chronic renal insufficiency, stage III (moderate) ([facility]/HCC) Dysplasia of cervix, low grade ([place] 1) Hypertension associated with diabetes ([facility]/HCC) ELIZABETH (generalized anxiety disorder) GERD (gastroesophageal reflux disease) Controlled type 2 diabetes mellitus with hyperglycemia, without long-term current use of insulin ([facility]) Hemiplegic migraine Hypertriglyceridemia Leg edema Lesion of left ovary Low serum HDL Motion sickness Ovarian cyst, complex Pain of left lower extremity Raynauds disease Sacroiliac joint dysfunction of left side Seasonal allergies Varicose veins of legs Wound of left ankle Amenorrhea Vaginal lesion Elevated red blood cell count Non-healing wound of lower extremity Non-healing wound of upper extremity Finger ulcer (CMS/HCC) Overweight (BMI 25.0-29.9) History of ovarian cyst Elevated ferritin Pulmonary hypertension ([facility]/HCC) Severe tricuspid regurgitation by prior echocardiogram Non-pressure chronic ulcer of left lower leg with fat layer exposed ([facility]/HCC) Cellulitis General Visit Information: General Reason for Referral: impaired mobility; patient admitted with left leg wound Referred By: Chas Family/Caregiver Present: No Co-Treatment: OT Co-Treatment Reason: to optimize patient safety Prior to Session Communication: Bedside nurse Patient Position Received: (patient walking back to bed from bathroom) General Comment: patient agreeable to PT Home Living: Home Living Type of Home: House Lives With: Spouse, Dependent children Home Living Comments: has stairs in home with bilateral rails, states she navigates them one step at a time; doesn't have any adaptive devices at home Prior Level of Function: Prior Function Per Pt/Caregiver Report Level of [place]: Independent with ADLs and functional transfers, Independent with homemaking with ambulation Prior Function Comments: has wound on her right hand/finger as well making it difficult to grasp Precautions: Precautions Medical Precautions: Other (comment) (wound L leg) Vital Signs: Objective Pain: Pain Assessment Pain Assessment: 0-10 Pain Score: 3 (left leg, right hand/finger) Cognition: Cognition Overall Cognitive Status: Within Functional Limits Functional Assessments: L lower leg bandaged due to wound Bed Mobility Bed Mobility: No Transfers Transfer: Yes Transfer 1 Transfer From 1: Sit to, Stand to Transfer to 1: Stand, Sit Technique 1: Sit to stand, Stand to sit Transfer Level of Assistance 1: Independent Trials/Comments 1: decreaesd weight bear on LLE Ambulation/Gait Training Ambulation/Gait Training Performed: Yes Ambulation/Gait Training 1 Surface 1: Level tile Device 1: No device Assistance 1: Independent Quality of Gait 1: Antalgic, Decreased step length, Inconsistent stride length, Diminished heel strike Comments/Distance (ft) 1: significant limp, slow, decreased stance on LLE Ambulation/Gait Training 2 Surface 2: Level tile Device 2: Single point cane Assistance 2: Close supervision, Moderate verbal cues Quality of Gait 2: (step to pattern) Comments/Distance (ft) 2: 7' ,gait trainig with cane to reduce pain and improve support to LLE Outcome Measures: [facility] Basic Mobility Turning from your back to your side while in a flat bed without using bedrails: None Moving from lying on your back to sitting on the side of a flat bed without using bedrails: None Moving to and from bed to chair (including a wheelchair): None Standing up from a chair using your arms (e.g. wheelchair or bedside chair): None To walk in hospital room: None Climbing 3-5 steps with railing: None Basic Mobility - Total Score: 24 Goals: Encounter Problems Encounter Problems (Active) PT Problem PT Goal 1 Start: 06/06/23 Expected End: 06/19/23 Jayna Smith will ambulate 50. ft with least restrictive assistive device (straight cane or FWW), level surface, good balance, steady mod Indep with improved pattern and decreased pain PT Goal 2 Start: 06/06/23 Expected End: 06/19/23 Patient will ascend/descend 4 steps with rail and device mod indep with good form, control to reduce fall risk and pain Pain - Adult Education Documentation No documentation found. Education Comments No comments found. Pt reviewed in care rounds this morning. Pt not medically ready for discharge. SW met w/ Pt at bedside. Pt stated Pt has HEAP and will be submitting annual application soon as it is coming due. Pt stated Pt is employed at [employer] and likes working. Per Pt, Pt lives at home with fimekhi and 2 children ages 11 and 16. Pt stated Pt's wound came to be in a deteriorated state d/t Pt was ill for several days and wasn't able to get out of bed or do much of anything else. Pt sated otherwise Pt sees Dr. Barbosa outpt every two weeks and Pt changes Pt's bandages as indicated at home. SW encouraged Pt to set up a back up plan with Pt's fiance or Pt's parents (Pt indicated Pt's parents are an important part of Pt's support network). Pt denies need for additional services or supports at home. SW to follow. Vancomycin Dosing by Pharmacy- FOLLOW UP Jayna Smith is a 37 y.o. year old female who Pharmacy has been consulted for vancomycin dosing for cellulitis, skin and soft tissue. Based on the patient's indication and renal status this patient is being dosed based on a goal AUC of 400-600. Renal function is currently declining. Current vancomycin dose: 750 mg given every 12 hours Most recent random level: 27.9 mcg/mL Visit Vitals BP 87/63 Pulse 84 Temp 36.2 C (97.2 F) Resp 18 Lab Results Component Value Date CREATININE 1.66 (H) 06/06/2023 CREATININE 1.04 06/04/2023 CREATININE 1.01 04/26/2023 CREATININE 1.20 (H) 04/09/2023 Patient weight is 80.8 kg I/O last 3 completed shifts: In: 2945 (36.4 mL/kg) [P.O.:1095; IV Piggyback:1850] Out: 850 (10.5 mL/kg) [Urine:450 (0.2 mL/kg/hr); Emesis/NG output:400] Weight: 80.8 kg @IOTHISSHIFT@ Assessment/Plan Above goal AUC. Orders placed for new vancomcyin regimen of 750 mg every 24 hours to begin at 2200. This dosing regimen is predicted by [employer] to result in the following pharmacokinetic parameters: Regimen: 750 mg IV every 24 hours. Start time: 22:00 on 06/06/2023 Exposure target: AUC24 (range)400-600 mg/L.hr AUC24,ss: 477 mg/L.hr Probability of AUC24 > 400: 86 % Ctrough,ss: 14.7 mg/L Probability of Ctrough,ss > 20: 9 % Probability of nephrotoxicity (Lodise GAIL 2008): 10 % The next level will be obtained on 06/06 at 0600. May be obtained sooner if clinically indicated. Will continue to monitor renal function daily while on vancomycin and order serum creatinine at least every 48 hours if not already ordered. Follow for continued vancomycin needs, clinical response, and signs/symptoms of toxicity. Pretty Patel RPh 06/05/23 1428 Discharge Planning Living Arrangements Spouse/significant other;Children Support Systems Spouse/significant other Assistance Needed None Type of Residence Private residence Number of Stairs to Enter Residence 3 Number of Stairs Within Residence 0 Do you have animals or pets at home? Yes Type of Animals or Pets one dog Who is requesting discharge planning? Provider Home or Post Acute Services None Patient expects to be discharged to: Home Does the patient need discharge transport arranged? No Financial Resource Strain How hard is it for you to pay for the very basics like food, housing, medical care, and heating? Not hard Housing Stability In the last 12 months, was there a time when you were not able to pay the mortgage or rent on time? N In the last 12 months, how many places have you lived? 1 In the last 12 months, was there a time when you did not have a steady place to sleep or slept in a snf (including now)? N Transportation Needs In the past 12 months, has lack of transportation kept you from medical appointments or from getting medications? no In the past 12 months, has lack of transportation kept you from meetings, work, or from getting things needed for daily living? No Met with pt at the bedside and verified address, phone number and emergency contact information. PCP is Dr Foley last seen in November 2022 and pharmacy is [facility] denies issues obtaining or affording medication and takes them as ordered. Pt is independent, lives at home with significant other and children and feels safe. Pt declines all formal services even when strongly encouraged. [facility] . ADOD 06/08. CT to follow. Shania León BSN/RN-TCC Vancomycin Dosing by Pharmacy- INITIAL Jayna Smith is a 37 y.o. year old female who Pharmacy has been consulted for vancomycin dosing for cellulitis, skin and soft tissue. Based on the patient's indication and renal status this patient will be dosed based on a goal AUC of 400-600. Renal function is currently stable. Visit Vitals BP 115/85 (BP Location: Left arm, Patient Position: Lying) Pulse 96 Temp 36 C (96.8 F) (Temporal) Resp 18 Lab Results Component Value Date CREATININE 1.04 06/04/2023 CREATININE 1.01 04/26/2023 CREATININE 1.20 (H) 04/09/2023 CREATININE 1.33 (H) 04/08/2023 Patient weight is No results found for: PTWEIGHT No results found for: CULTURE I/O last 3 completed shifts: In: 1954 (24.2 mL/kg) [P.O.:355; IV Piggyback:1600] Out: 700 (8.7 mL/kg) [Urine:450 (0.2 mL/kg/hr); Emesis/NG output:250] Weight: 80.8 kg @IOTHISSHIFT@ No results found for: PATIENTTEMP Assessment/Plan Patient has already been given a loading dose of 2000 mg. Will initiate vancomycin maintenance, 750 mg every 12 hours. This dosing regimen is predicted by [employer] to result in the following pharmacokinetic parameters: Loading dose: 2000 mg Regimen: 750 mg IV every 12 hours. Start time: 10:38 on 06/05/2023 Exposure target: AUC24 (range)400-600 mg/L.hr AUC24,ss: 410 mg/L.hr Probability of AUC24 > 400: 53 % Ctrough,ss: 13.1 mg/L Probability of Ctrough,ss > 20: 17 % Probability of nephrotoxicity (Lodise GAIL 2008): 8 % Follow-up level will be ordered on 06/06/2023 at 0500 unless clinically indicated sooner. Will continue to monitor renal function daily while on vancomycin and order serum creatinine at least every 48 hours if not already ordered. Follow for continued vancomycin needs, clinical response, and signs/symptoms of toxicity. Daniel Gaona PharmD documented in this encounter [facility] Work Phone: 06-06-2023 History of Present illness Narrative History Of Present Illness Jayna Smith is a 38 y.o. female presenting with pulmonary hypertension. Patient was hospitalized at [facility] from 06/06/2023-06/26/2023. Originally presented as a transfer from [facility] for severe pulmonary hypertension and tricuspid regurgitation. Pt initially presented on 06/02 for left leg pain and swelling and concern for cellulitis 2/2 to a chronic anterior left leg wound and recent surgical debridement. She was admitted to [facility] on 06/03 for IV antibiotic management. Noted to have a new murmur and cardiology was consulted as a TTE on 04/08/23 revealed a dilated RA and elevated RVSP with severe TR (full report below). She was recommended to follow-up with cardiology outpatient, however does not appear that this occurred. Repeat TTE on 06/05 revealed similar findings and she was transferred to [facility] for further evaluation and management of right heart failure/pulm htn. Pulmonary hypertension specialist, Dr Schumacher, Advanced Heart Failure team, and Rheumatology were consulted. Patient received autoimmune workup which was significant for positive NICOLE and anti-centromere antibodies. 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 Rheumatology confirmed no current indication for immunosuppression therapy. Patient started on PPI for GERD, a common associated symptom of CREST. Patient underwent left and right heart cath with [place] catheter placement. Additionally patient with CT PE negative for ILD or acute PE. V/Q scan not concerning for CTEPH. 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 Patient started on inhaled Nitric Oxide and dobutamine drip while titrating Veletri. Patient weaned off of nitric oxide and dobutamine. Patient is NYHA Functional Class 3 and WHO Group 1. Last office visit was virtual on 02/18/2024. PAH Treatment: Remodulin, 18 ng/kg/min, 1.9 ml/hr, concentration 0.05 mg/ml (06/11/2023) Tadalafil (02/21/2024-02/27/2024) stopped due to headaches (04/15/2023) Ambrisentan (pending REMS enrollment to start) Infusion site: [facility], clean, dry and intact Treatment history: N/A Testing today includes: done prior to visit Virtual or Telephone Consent An interactive audio and video telecommunication system which permits real time communications between the patient (at the originating site) and provider (at the distant site) was utilized to provide this telehealth service. Verbal consent was requested and obtained from Jayna Smith on this date, 04/23/24 for a telehealth visit. Interval History Past Medical History Patient Active Problem List Diagnosis Abnormal uterine bleeding (AUB) BPPV (benign paroxysmal positional vertigo) Cervix dysplasia Chronic renal insufficiency, stage III (moderate) (Multi) Dysplasia of cervix, low grade ([place] 1) Hypertension associated with diabetes (Multi) ELIZABETH (generalized anxiety disorder) GERD (gastroesophageal reflux disease) Controlled type 2 diabetes mellitus with hyperglycemia, without long-term current use of insulin Hemiplegic migraine Hypertriglyceridemia Leg edema Lesion of left ovary Low serum HDL Motion sickness Ovarian cyst, complex Pain of left lower extremity Raynauds disease Sacroiliac joint dysfunction of left side Seasonal allergies Varicose veins of legs Wound of left ankle Amenorrhea Vaginal lesion Elevated red blood cell count Non-healing wound of lower extremity Non-healing wound of upper extremity Finger ulcer (Multi) Overweight (BMI 25.0-29.9) History of ovarian cyst Elevated ferritin Pulmonary hypertension (Multi) Severe tricuspid regurgitation by prior echocardiogram Non-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 Social History She reports that she quit smoking about 12 months ago. Her smoking use included cigarettes. She started smoking about 3 years ago. She has a 1 pack-year smoking history. She has never used smokeless tobacco. She reports that she does not currently use alcohol. She reports current drug use. Drug: Marijuana. Family History Family History Problem Relation Name Age of Onset No Known Problems Mother Osteoporosis Father Parkinsonism Mother's Sister Parkinsonism Maternal Grandmother Asthma Other Diabetes Other Hypertension Other Heart attack Other Medications Current Outpatient Medications: acetaminophen (Tylenol) 500 mg tablet, take 2 tablets by mouth every 6 hours if needed for headache for up to 10 days, Disp: 30 tablet, Rfl: 0 digoxin (Lanoxin) 125 MCG tablet, Take 1 tablet (125 mcg) by mouth once daily., Disp: 90 tablet, Rfl: 0 loperamide (Imodium A-D) 2 mg tablet, Take 0.5 tablets (1 mg) by mouth once daily. Or as directed., Disp: 30 tablet, Rfl: 11 loperamide (Imodium) 2 mg capsule, Take 1 capsule (2 mg) by mouth 4 times a day as needed for diarrhea., Disp: 30 capsule, Rfl: 11 tadalafil (Cialis) 20 mg tablet, Take 2 tablets (40 mg) by mouth once daily., Disp: 60 tablet, Rfl: 11 tadalafil (tadalafil, antihypertensive,) 20 mg tablet, Take 2 tablets (40 mg) by mouth once daily., Disp: 60 tablet, Rfl: 11 treprostinil 10 mg/mL solution 10 mg/mL, empty bag/syringe unknown 1 each, Inject 9 ng/kg/min under the skin continuously., Disp: , Rfl: Allergies Amlodipine Review of Systems Constitutional: Negative. Negative for fatigue. HENT: Negative. Eyes: Negative. Respiratory: Positive for shortness of breath. Cardiovascular: Positive for palpitations. Gastrointestinal: Negative. Endocrine: Negative. Genitourinary: Negative. Musculoskeletal: Negative. Skin: Negative. Allergic/Immunologic: Negative. Neurological: Negative for dizziness, syncope and light-headedness. Hematological: Negative. Psychiatric/Behavioral: Negative. Last Recorded Vitals There were no vitals taken for this visit. Physical Exam Relevant Results 6MWT (04/21/2024) IO28-47-34% on RA HR-72-105 STEVAN-n/a Actual Meters- 548 6MWT (02/12/24) SP02- 95-89 % RA HR-65-94 STEVAN-0-4 Actual Meters- 594 m Echo (02/05/2024) [facility] Left Ventricle: Left ventricular ejection fraction is normal, by visual estimate at 60%. There are no regional wall motion abnormalities. The left ventricular cavity size is decreased. There is moderately increased septal and normal posterior left ventricular wall thickness. There is left ventricular concentric remodeling. Spectral Doppler shows a normal pattern of left ventricular diastolic filling. Left Atrium: The left atrium is normal in size. A bubble study using agitated saline was not performed. Right Ventricle: The right ventricle is severely enlarged. There is severely reduced right ventricular systolic function. Right Atrium: The right atrium is moderately to severely dilated. Aortic Valve: The aortic valve is trileaflet. The aortic valve dimensionless index is 0.84. There is no evidence of aortic valve regurgitation. The peak instantaneous gradient of the aortic valve is 6 mmHg. The mean gradient of the aortic valve is 3 mmHg. Mitral Valve: The mitral valve is normal in structure. There is no evidence of mitral valve regurgitation. Tricuspid Valve: The tricuspid valve is structurally normal. There is severe tricuspid regurgitation. The Doppler estimated RVSP is severely elevated at 144.1 mmHg. Pulmonic Valve: The pulmonic valve is structurally normal. There is moderate to severe pulmonic valve regurgitation. Pericardium: Trivial pericardial effusion. Aorta: The aortic root is normal. Pulmonary Artery: The Doppler estimated pulmonary artery diastolic pressure is 18.7 mmHg. CONCLUSIONS: 1. Left ventricular ejection fraction is normal, by visual estimate at 60%. 2. Left ventricular cavity size is decreased. 3. There is severely reduced right ventricular systolic function. 4. Severely enlarged right ventricle. 5. The right atrium is moderately to severely dilated. 6. Severe tricuspid regurgitation. 7. Severely elevated right ventricular systolic pressure. 8. Moderate to severe pulmonic valve regurgitation. 9. There is moderately increased septal thickness. NM lung perfusion scan (06/07/2023) IMPRESSION: There are nonspecific non-segmental/subsegmental perfusion defects and marked heterogeneity in both lungs corresponding to intermediate probability for pulmonary embolism. Additionally, chronic PE versus multifocal airway disease not entirely excluded. LHC/RHC (06/08/2023) PAP: 91/41(59) PWP: 22 CO/CI: 3.6/1.8 CONCLUSIONS: 1. Normal coronary arteries in a right dominant system. 2. Normal left ventricular systolic function. 3. Severe pulmonary hypertension. CT chest for PE (06/07/2023) IMPRESSION: 1. No evidence of acute pulmonary embolism. 2. Findings compatible with history of pulmonary hypertension and elevated right-sided heart pressures including dilated main pulmonary artery, asymmetric enlargement of the right atrium and ventricle, and reflux of contrast into the IVC. 3. Focal area of tree-in-bud nodularity in the right lower lobe is consistent with an infectious or inflammatory bronchiolitis. 4. Diffuse mosaic attenuation which is most likely on the basis of small vessels disease given known pulmonary hypertension. Underlying small airways/reactive airways disease is a differential consideration in the appropriate clinical setting 5. Please see separately dictated concurrent CT abdomen pelvis. Echo (06/06/2023) [facility] PHYSICIAN INTERPRETATION: Left Ventricle: Left ventricular systolic function is normal, with an estimated ejection fraction of 65%. There are no regional wall motion abnormalities. The left ventricular cavity size is normal. There is mild left ventricular hypertrophy. Spectral Doppler shows an impaired relaxation pattern of left ventricular diastolic filling. Left Atrium: The left atrium is normal in size. Right Ventricle: The right ventricle is severely enlarged. There is severely reduced right ventricular systolic function. Right Atrium: The right atrium is severely dilated. Aortic Valve: The aortic valve is trileaflet. There is no evidence of aortic valve regurgitation. The peak instantaneous gradient of the aortic valve is 3.4 mmHg. The mean gradient of the aortic valve is 2.0 mmHg. Mitral Valve: The mitral valve is normal in structure. There is no evidence of mitral valve regurgitation. Tricuspid Valve: The tricuspid valve is structurally normal. There is severe tricuspid regurgitation. Pulmonic Valve: The pulmonic valve is structurally normal. There is moderate pulmonic valve regurgitation. Pericardium: There is a small pericardial effusion. Aorta: The aortic root is normal. Systemic Veins: The inferior vena cava appears dilated. There is less than 50% IVC collapse with inspiration. CONCLUSIONS: 1. Left ventricular systolic function is normal with a 65% estimated ejection fraction. 2. Spectral Doppler shows an impaired relaxation pattern of left ventricular diastolic filling. 3. D-shaped septum in systole and diastole consistent with right ventricular pressure and volume overload. 4. Severely enlarged right ventricle. 5. There is severely reduced right ventricular systolic function. 6. The right atrium is severely dilated. 7. Severe tricuspid regurgitation. 8. Moderate pulmonic valve regurgitation. 9. Calculated pulmonary artery systolic pressure is 97 mmHg, consistent with pulmonary hypertension. 10. Ascites is incidentally noted. Recommend dedicated imaging. 11. Small pericardial effusion with no evidence of hemodynamic compromise. 12. Overall findings appear consistent with significant pulmonary hypertension, with signs of right ventricular dysfunction. 13. Findings appear similar to prior echocardiogram dated 04/09/2023. Echo (04/09/23) [facility] PHYSICIAN INTERPRETATION: Left Ventricle: Left ventricular systolic function is normal, with an estimated ejection fraction of 60%. There are no regional wall motion abnormalities. The left ventricular cavity size is normal. There is moderate concentric left ventricular hypertrophy. Spectral Doppler shows an impaired relaxation pattern of left ventricular diastolic filling. Left Atrium: The left atrium is normal in size. Right Ventricle: The right ventricle is moderately enlarged. There is reduced right ventricular systolic function. Right Atrium: The right atrium is severely dilated. Aortic Valve: The aortic valve is trileaflet. There is no evidence of aortic valve regurgitation. The peak instantaneous gradient of the aortic valve is 3.9 mmHg. The mean gradient of the aortic valve is 2.0 mmHg. Mitral Valve: The mitral valve is normal in structure. There is no evidence of mitral valve regurgitation. Tricuspid Valve: The tricuspid valve is structurally normal. There is severe tricuspid regurgitation. RV-RA gradient 102mm Hg. Pulmonic Valve: The pulmonic valve is not well visualized. There is mild pulmonic valve regurgitation. Pericardium: There is a small pericardial effusion. Aorta: The aortic root is normal. Systemic Veins: The inferior vena cava appears dilated. There is less than 50% IVC collapse with inspiration. CONCLUSIONS: 1. Left ventricular systolic function is normal with a 60% estimated ejection fraction. 2. Spectral Doppler shows an impaired relaxation pattern of left ventricular diastolic filling. 3. There is moderate concentric left ventricular hypertrophy. 4. Enlarged right ventricle with reduced systolic function. 5. D-shaped septum in systole and diastole, consistent with right ventricular pressure and volume overload. 6. Severe tricuspid regurgitation. 7. The right atrium is severely dilated. 8. Calculated right ventricular systolic pressure is 117mm Hg. 9. Small pericardial effusion with no echocardiographic evidence of tamponade. 10. Consult team informed of findings. 11. Findings are consistent with severe Pulmonary Hypertension; presence of pericardial effusion and RV systolic dysfunction are high-risk markers. Assessment/Plan 1) PAH associated with CREST. Failure to achieve goal of therapy with poor prognosis. 1 hour discussion with patient and significant other. Patient says the line makes her depressed and she wants it out. Clarified and discussed: A. Significant other questioned decision making with initial presentation at right heart failure with very low CO requiring multiple agents to support. Re-iterated fatal nature of that presentation initially or over short term. B. Discussed non-quality of agents. C. Reviewed recent echo with massive RV dilation and poor prognosis D. Reviewed usual criteria for transition which is dramatic improvement to near normal suggesting successful transition. E. Reviewed distinct possibility that attempted and failed transition could lead to un-recoverable function even if infusion restarted. F. Reviewed likelihood that function and quantity of life less (potentially much less) with IV-> oral with current cardiac function and PAH. G. Patient and significant other understand and feel burden of infusion more than living less or losing function and wish to pursue transition. Plan 1) Start ambrisentan (JOHNNIE) and tadalafil (today) per protocol. 2) Patient aware of warnings, Patient enrolled in [facility] and monthly testing, agrees and understands. 3) Will continue tadalafil, ambrisentan and IV remodulin, ambivalent about now stopping IV after last visit discussion. Immodium prescription sent days ago, patient has it, not using. (Has 3-4 loose stools per day) Recommended using imodium as we did last time. Patient understands potential benefit. 4) Once regular use of tadalafil at target dose of a total of 40 mg daily and ambrisentan 5 mg daily, will resume IV remodulin uptitration. Patient will continue to consider options as previously discussed but does not want to pursue transition from IV today. I think this will serve her health better. Mentioned that Dr. Santiago will be seeing her down there instead of Dr Shipman. Will communicate with him regarding coordination of care. 25 minute med and ROS, discussion and review of 6 MW distance. Which was less , patient feels unchanged compared to February virtual visit. Perhaps trivially better. Still quite limited. documented in this encounter [facility] Work Phone: 06-06-2023 Consult note Associated Order (s): Inpatient consult to Cardiology Inpatient consult to Cardiology Consult performed by: Melissa Esquivel, YOUNG-PRISCA, DNP Consult ordered by: Jania Winslow PA-C History Of Present Illness: Jayna Smith is a 37 y.o. female who presented to [facility] ED for worsening pain in her left leg setting. Patient has a chronic venous wound dating back 2 years ago. Pertinent labs include albumin of 3.2 and ALP of 388. Blood cultures were obtained. CT of the left leg was done displaying anterior distal tibial superficial soft tissue ulceration with severe superficial soft tissue swelling. IV Zosyn and vancomycin initiated and patient admitted for further evaluation and treatment. Cardiology consulted secondary to severe TR seen on echo in March and concern for endocarditis. Patient examined at bedside. She continues follow up with Dr. Barbosa in the outpatient setting and reports the left leg wound has been present on and off for 2 years. She has a sore to the top of her second toe on the left. She recently returned to work at [employer] and noticed increased pain with working due to standing on her leg. She was previously hospitalized in March and an echo was done due to the presence of a murmur. Her echo showed significant findings: Left ventricular systolic function is normal with a 60% estimated ejection fraction. 2. Spectral Doppler shows an impaired relaxation pattern of left ventricular diastolic filling. 3. There is moderate concentric left ventricular hypertrophy. 4. Enlarged right ventricle with reduced systolic function. 5. D-shaped septum in systole and diastole, consistent with right ventricular pressure and volume overload. 6. Severe tricuspid regurgitation. 7. The right atrium is severely dilated. 8. Calculated right ventricular systolic pressure is 117mm Hg. 9. Small pericardial effusion with no echocardiographic evidence of tamponade. 10. Findings are consistent with severe Pulmonary Hypertension; presence of pericardial effusion and RV systolic dysfunction are high-risk markers. Patient was advised to establish care with us in the outpatient setting for referral to pulmonary HTN clinic. Unfortunately, patient did not follow up with us. Patient denies any prior drug use. She does occasionally smoke marijuana which helps with her pain. Last Recorded Vitals: Vitals: 06/05/23 1500 06/05/23 1941 06/06/23 0437 06/06/23 0700 BP: 88/68 (!) 128/91 87/63 102/69 BP Location: Right arm Right arm Right arm Patient Position: Lying Sitting Lying Pulse: 71 63 84 71 Resp: 18 18 18 Temp: 36.4 C (97.5 F) 35.7 C (96.3 F) 36.2 C (97.2 F) 36 C (96.8 F) TempSrc: Temporal Temporal Temporal SpO2: 96% 98% 97% Weight: Height: Last Labs: CBC - 06/06/2023: 4:42 AM 9.3 14.7 235 46.4 CMP - 06/06/2023: 4:42 AM 8.3 5.8 87 --- 2.0 _ 2.9 53 290 PTT - No results in last year. _ _ _ Troponin I Date/Time Value Ref Range Status 11/28/2021 10:44 PM 8 0 - 13 ng/L Final Comment: . Less than 99th percentile of normal range cutoff- Female and children under 18 years old <14 ng/L; Male <21 ng/L: Negative Repeat testing should be performed if clinically indicated. . Female and children under 18 years old 14-50 ng/L; Male 21-50 ng/L: Consistent with possible cardiac damage and possible increased clinical risk. Serial measurements may help to assess extent of myocardial damage. . >50 ng/L: Consistent with cardiac damage, increased clinical risk and myocardial infarction. Serial measurements may help assess extent of myocardial damage. . NOTE: Children less than 1 year old may have higher baseline troponin levels and results should be interpreted in conjunction with the overall clinical context. . NOTE: Troponin I testing is performed using a different testing methodology at [facility] than at other [facility]. Direct result comparisons should only be made within the same method. Hemoglobin A1C Date/Time Value Ref Range Status 06/06/2023 09:57 AM 6.7 (H) see below % Final 11/17/2022 08:33 AM 6.7 (A) % Final Comment: Diagnosis of Diabetes-Adults Non-Diabetic: < or = 5.6% Increased risk for developing diabetes: 5.7-6.4% Diagnostic of diabetes: > or = 6.5% . Monitoring of Diabetes Age (y) Therapeutic Goal (%) Adults: >18 <7.0 Pediatrics: 13-18 <7.5 7-12 <8.0 0- 6 7.5-8.5 [place] Diabetes Association. Diabetes Care 33(S1), Mar 2009. 07/20/2022 09:26 AM 6.6 (A) % Final Comment: Diagnosis of Diabetes-Adults Non-Diabetic: < or = 5.6% Increased risk for developing diabetes: 5.7-6.4% Diagnostic of diabetes: > or = 6.5% . Monitoring of Diabetes Age (y) Therapeutic Goal (%) Adults: >18 <7.0 Pediatrics: 13-18 <7.5 7-12 <8.0 0- 6 7.5-8.5 [place] [employer]. Diabetes Care 33(S1), Mar 2009. VLDL Date/Time Value Ref Range Status 07/20/2022 09:26 AM 17 0 - 40 mg/dL Final 10/19/2021 08:40 AM 56 (H) 0 - 40 mg/dL Final 03/21/2021 08:23 AM 43 (H) 0 - 40 mg/dL Final Last I/O: I/O last 3 completed shifts: In: 2945 (36.4 mL/kg) [P.O.:1095; IV Piggyback:1850] Out: 850 (10.5 mL/kg) [Urine:450 (0.2 mL/kg/hr); Emesis/NG output:400] Weight: 80.8 kg Past Cardiology Tests (Last 3 Years): EKG: No results found for this or any previous visit from the past 1095 days. Echo: Transthoracic Echo (TTE) Complete 04/09/2023 Ejection Fractions: No results found for: EF Cath: No results found for this or any previous visit from the past 1095 days. Stress Test: No results found for this or any previous visit from the past 1095 days. Cardiac Imaging: No results found for this or any previous visit from the past 1095 days. Past Medical History: She has a past medical history of Anxiety, Chlamydial infection, unspecified, Elevated LFTs (05/25/2022), GERD (gastroesophageal reflux disease), Immunization not carried out because of patient refusal, LGSIL on Pap smear of cervix (07/20/2022), Other conditions influencing health status, Other specified postprocedural states, Prediabetes, and Raynaud's disease. Past Surgical History: She has a past surgical history that includes Cervical biopsy w/ loop electrode excision (08/17/2014); Colposcopy (05/13/2022); and Mouth surgery. Social History: She reports that she has been smoking cigarettes. She has a 1.00 pack-year smoking history. She has never used smokeless tobacco. She reports that she does not currently use alcohol. She reports current drug use. Drug: Marijuana. Family History: Family History Problem Relation Name Age of Onset No Known Problems Mother Osteoporosis Father Parkinsonism Mother's Sister Parkinsonism Maternal Grandmother Asthma Other Diabetes Other Hypertension Other Heart attack Other Allergies: Amlodipine Inpatient Medications: Scheduled medications Medication Dose Route Frequency ketorolac 30 mg intravenous q6h [facility] nicotine 1 patch transdermal Daily pantoprazole 20 mg oral Daily before breakfast polyethylene glycol 17 g oral Daily vancomycin (Vancocin) 750 mg in dextrose 5 % in water (D5W) 250 mL IV 750 mg intravenous q24h PRN medications Medication acetaminophen Or acetaminophen Or acetaminophen busPIRone magnesium hydroxide ondansetron ODT Or ondansetron oxyCODONE traMADol vancomycin Continuous Medications Medication Dose Last Rate Outpatient Medications: Current Outpatient Medications Medication Instructions acetaminophen (TYLENOL) 650 mg, oral, Every 6 hours PRN amoxicillin-pot clavulanate (Augmentin) 875-125 mg tablet 1 tablet, oral, Every 12 hours etodolac (LODINE) 400 mg, oral, 2 times daily Physical Exam: General: awake, alert and oriented. No acute distress. Skin: Skin is warm, dry with ulceration to left lower leg and wound to second toe on left foot; tip of second digit is discolored HEENT: normocephalic, atraumatic; conjunctivae are clear without exudates or hemorrhage. Sclera is non-icteric. Eyelids are normal in appearance without swelling or lesions. Hearing intact. Nares are patent bilaterally. Moist mucous membranes. Cardiovascular: heart rate and rhythm are normal. Murmur present Respiratory: bilateral lung sounds clear to auscultations without rales, rhonchi, or wheezes. No accessory muscle use or stridor Gastrointestinal: non-distended, non-tender Genitourinary: exam deferred Musculoskeletal: no deformities Extremities: nonpalpable pulses to left DP and PT; verified with doppler. +2 swelling to left lower extremity with presence of a chronic venous wound; varicosities noted to right lower extremity; swan-neck deformity of the right second and third digits Neurological: no focal deficits; gait steady Psychiatric: appropriate mood and affect; good judgment and insight Assessment/Plan Tricuspid regurgitation: -Previously noted on echo from March; repeat echo ordered with review of imaging by Dr. Silverio and Dr. Menezes which displays torrential TR, severe RVSF, severe pulmonary HTN, small pericardial effusion -Her clinical picture is quite perplexing given the severity of her TR with severe pulmonary artery HTN and her current age of 37. It is likely patient has underlying connective tissue disorder such as SLE which would explain her unusual vasculopathy, deformity of the right fingers (swan-neck appearance) suspicious for arthralgias, known presence of Raynaud's disease, hypoalbuminemia, elevated creatinine, elevated liver enzymes, If SLE is confirmed, a ANTONIA will be recommended to rule out verrucous endocarditis - Will check RF and NICOLE. -Case discussed with Dr. Silverio and Dr. Menezes with recommendation [place] [facility] [place] due to significant pulmonary hypertension, with signs of right ventricular dysfunction. Dr. Silverio requests patient to be transferred to the ICU while she awaits transfer. Hospitalist aware. Peripheral IV 06/04/23 20 G Right Forearm (Active) Site Assessment Clean;Dry;Intact 06/06/23 0800 Line Status Saline locked 06/06/23 0800 Dressing Status Clean;Dry 06/06/23 0800 Number of days: 2 Peripheral IV 06/06/23 20 G Left;Anterior Forearm (Active) Site Assessment Clean;Dry;Intact 06/06/23 0800 Line Status Saline locked 06/06/23 0800 Dressing Status Clean;Dry 06/06/23 0800 Number of days: 0 Code Status: Full Code Thank you for allowing me to participate in the care of this patient. Please reach me out if you have any questions or if you need any clarifications regarding the patient's care. KHOA Naranjo DNP [facility] Work Phone: 06-06-2023 Consult note Associated Order (s): Inpatient consult to Cardiology Inpatient consult to Cardiology Consult performed by: KHOA Naranjo DNP Consult ordered by: Jania Winslow PA-C History Of Present Illness: Jayna Smith is a 37 y.o. female who presented to [facility] ED for worsening pain in her left leg setting. Patient has a chronic venous wound dating back 2 years ago. Pertinent labs include albumin of 3.2 and ALP of 388. Blood cultures were obtained. CT of the left leg was done displaying anterior distal tibial superficial soft tissue ulceration with severe superficial soft tissue swelling. IV Zosyn and vancomycin initiated and patient admitted for further evaluation and treatment. Cardiology consulted secondary to severe TR seen on echo in March and concern for endocarditis. Patient examined at bedside. She continues follow up with Dr. Barbosa in the outpatient setting and reports the left leg wound has been present on and off for 2 years. She has a sore to the top of her second toe on the left. She recently returned to work at [employer] and noticed increased pain with working due to standing on her leg. She was previously hospitalized in March and an echo was done due to the presence of a murmur. Her echo showed significant findings: Left ventricular systolic function is normal with a 60% estimated ejection fraction. 2. Spectral Doppler shows an impaired relaxation pattern of left ventricular diastolic filling. 3. There is moderate concentric left ventricular hypertrophy. 4. Enlarged right ventricle with reduced systolic function. 5. D-shaped septum in systole and diastole, consistent with right ventricular pressure and volume overload. 6. Severe tricuspid regurgitation. 7. The right atrium is severely dilated. 8. Calculated right ventricular systolic pressure is 117mm Hg. 9. Small pericardial effusion with no echocardiographic evidence of tamponade. 10. Findings are consistent with severe Pulmonary Hypertension; presence of pericardial effusion and RV systolic dysfunction are high-risk markers. Patient was advised to establish care with us in the outpatient setting for referral to pulmonary HTN clinic. Unfortunately, patient did not follow up with us. Patient denies any prior drug use. She does occasionally smoke marijuana which helps with her pain. Last Recorded Vitals: Vitals: 06/05/23 1500 06/05/23 1941 06/06/23 0437 06/06/23 0700 BP: 88/68 (!) 128/91 87/63 102/69 BP Location: Right arm Right arm Right arm Patient Position: Lying Sitting Lying Pulse: 71 63 84 71 Resp: 18 18 18 Temp: 36.4 C (97.5 F) 35.7 C (96.3 F) 36.2 C (97.2 F) 36 C (96.8 F) TempSrc: Temporal Temporal Temporal SpO2: 96% 98% 97% Weight: Height: Last Labs: CBC - 06/06/2023: 4:42 AM 9.3 14.7 235 46.4 CMP - 06/06/2023: 4:42 AM 8.3 5.8 87 --- 2.0 _ 2.9 53 290 PTT - No results in last year. _ _ _ Troponin I Date/Time Value Ref Range Status 11/28/2021 10:44 PM 8 0 - 13 ng/L Final Comment: . Less than 99th percentile of normal range cutoff- Female and children under 18 years old <14 ng/L; Male <21 ng/L: Negative Repeat testing should be performed if clinically indicated. . Female and children under 18 years old 14-50 ng/L; Male 21-50 ng/L: Consistent with possible cardiac damage and possible increased clinical risk. Serial measurements may help to assess extent of myocardial damage. . >50 ng/L: Consistent with cardiac damage, increased clinical risk and myocardial infarction. Serial measurements may help assess extent of myocardial damage. . NOTE: Children less than 1 year old may have higher baseline troponin levels and results should be interpreted in conjunction with the overall clinical context. . NOTE: Troponin I testing is performed using a different testing methodology at [facility] than at other [facility]. Direct result comparisons should only be made within the same method. Hemoglobin A1C Date/Time Value Ref Range Status 06/06/2023 09:57 AM 6.7 (H) see below % Final 11/17/2022 08:33 AM 6.7 (A) % Final Comment: Diagnosis of Diabetes-Adults Non-Diabetic: < or = 5.6% Increased risk for developing diabetes: 5.7-6.4% Diagnostic of diabetes: > or = 6.5% . Monitoring of Diabetes Age (y) Therapeutic Goal (%) Adults: >18 <7.0 Pediatrics: 13-18 <7.5 7-12 <8.0 0- 6 7.5-8.5 [place] Diabetes Association. Diabetes Care 33(S1), Mar 2009. 07/20/2022 09:26 AM 6.6 (A) % Final Comment: Diagnosis of Diabetes-Adults Non-Diabetic: < or = 5.6% Increased risk for developing diabetes: 5.7-6.4% Diagnostic of diabetes: > or = 6.5% . Monitoring of Diabetes Age (y) Therapeutic Goal (%) Adults: >18 <7.0 Pediatrics: 13-18 <7.5 7-12 <8.0 0- 6 7.5-8.5 Citizen Of [place] Diabetes Association. Diabetes Care 33(S1), Mar 2009. VLDL Date/Time Value Ref Range Status 07/20/2022 09:26 AM 17 0 - 40 mg/dL Final 10/19/2021 08:40 AM 56 (H) 0 - 40 mg/dL Final 03/21/2021 08:23 AM 43 (H) 0 - 40 mg/dL Final Last I/O: I/O last 3 completed shifts: In: 2945 (36.4 mL/kg) [P.O.:1095; IV Piggyback:1850] Out: 850 (10.5 mL/kg) [Urine:450 (0.2 mL/kg/hr); Emesis/NG output:400] Weight: 80.8 kg Past Cardiology Tests (Last 3 Years): EKG: No results found for this or any previous visit from the past 1095 days. Echo: Transthoracic Echo (TTE) Complete 04/09/2023 Ejection Fractions: No results found for: EF Cath: No results found for this or any previous visit from the past 1095 days. Stress Test: No results found for this or any previous visit from the past 1095 days. Cardiac Imaging: No results found for this or any previous visit from the past 1095 days. Past Medical History: She has a past medical history of Anxiety, Chlamydial infection, unspecified, Elevated LFTs (05/25/2022), GERD (gastroesophageal reflux disease), Immunization not carried out because of patient refusal, LGSIL on Pap smear of cervix (07/20/2022), Other conditions influencing health status, Other specified postprocedural states, Prediabetes, and Raynaud's disease. Past Surgical History: She has a past surgical history that includes Cervical biopsy w/ loop electrode excision (08/17/2014); Colposcopy (05/13/2022); and Mouth surgery. Social History: She reports that she has been smoking cigarettes. She has a 1.00 pack-year smoking history. She has never used smokeless tobacco. She reports that she does not currently use alcohol. She reports current drug use. Drug: Marijuana. Family History: Family History Problem Relation Name Age of Onset No Known Problems Mother Osteoporosis Father Parkinsonism Mother's Sister Parkinsonism Maternal Grandmother Asthma Other Diabetes Other Hypertension Other Heart attack Other Allergies: Amlodipine Inpatient Medications: Scheduled medications Medication Dose Route Frequency ketorolac 30 mg intravenous q6h [facility] nicotine 1 patch transdermal Daily pantoprazole 20 mg oral Daily before breakfast polyethylene glycol 17 g oral Daily vancomycin (Vancocin) 750 mg in dextrose 5 % in water (D5W) 250 mL IV 750 mg intravenous q24h PRN medications Medication acetaminophen Or acetaminophen Or acetaminophen busPIRone magnesium hydroxide ondansetron ODT Or ondansetron oxyCODONE traMADol vancomycin Continuous Medications Medication Dose Last Rate Outpatient Medications: Current Outpatient Medications Medication Instructions acetaminophen (TYLENOL) 650 mg, oral, Every 6 hours PRN amoxicillin-pot clavulanate (Augmentin) 875-125 mg tablet 1 tablet, oral, Every 12 hours etodolac (LODINE) 400 mg, oral, 2 times daily Physical Exam: General: awake, alert and oriented. No acute distress. Skin: Skin is warm, dry with ulceration to left lower leg and wound to second toe on left foot; tip of second digit is discolored HEENT: normocephalic, atraumatic; conjunctivae are clear without exudates or hemorrhage. Sclera is non-icteric. Eyelids are normal in appearance without swelling or lesions. Hearing intact. Nares are patent bilaterally. Moist mucous membranes. Cardiovascular: heart rate and rhythm are normal. Murmur present Respiratory: bilateral lung sounds clear to auscultations without rales, rhonchi, or wheezes. No accessory muscle use or stridor Gastrointestinal: non-distended, non-tender Genitourinary: exam deferred Musculoskeletal: no deformities Extremities: nonpalpable pulses to left DP and PT; verified with doppler. +2 swelling to left lower extremity with presence of a chronic venous wound; varicosities noted to right lower extremity; swan-neck deformity of the right second and third digits Neurological: no focal deficits; gait steady Psychiatric: appropriate mood and affect; good judgment and insight Assessment/Plan Tricuspid regurgitation: -Previously noted on echo from March; repeat echo ordered with review of imaging by Dr. Silverio and Dr. Menezes which displays torrential TR, severe RVSF, severe pulmonary HTN, small pericardial effusion -Her clinical picture is quite perplexing given the severity of her TR with severe pulmonary artery HTN and her current age of 37. It is likely patient has underlying connective tissue disorder such as SLE which would explain her unusual vasculopathy, deformity of the right fingers (swan-neck appearance) suspicious for arthralgias, known presence of Raynaud's disease, hypoalbuminemia, elevated creatinine, elevated liver enzymes, If SLE is confirmed, a ANTONIA will be recommended to rule out verrucous endocarditis - Will check RF and NICOLE. -Case discussed with Dr. Silverio and Dr. Menezes with recommendation [place] [facility] [place] due to significant pulmonary hypertension, with signs of right ventricular dysfunction. Dr. Silverio requests patient to be transferred to the ICU while she awaits transfer. Hospitalist aware. Peripheral IV 06/04/23 20 G Right Forearm (Active) Site Assessment Clean;Dry;Intact 06/06/23 0800 Line Status Saline locked 06/06/23 08 Dressing Status Clean;Dry 06/06/23799 Number of days: 2 Peripheral IV 06/06/23 20 G Left;Anterior Forearm (Active) Site Assessment Clean;Dry;Intact 06/06/23 08 Line Status Saline locked 06/06/23799 Dressing Status Clean;Dry 06/06/23799 Number of days: 0 Code Status: Full Code Thank you for allowing me to participate in the care of this patient. Please reach me out if you have any questions or if you need any clarifications regarding the patient's care. Melissa R Esquivel, [employer] SALES ASSOCIATE-CUSTOMER ENGINEER, DNP Consults Reason For Consult Leg wound left History Of Present Illness Jayna Smith is a 37 y.o. female presenting with chronic left leg wound and now with increased pain, swelling and redness. She had prior antibiotic treatment, comprehensive wound care plan, and application of advanced wound care product with some reduction in ulcer size. She has returned to work this past week and has worse leg pain. She denies trauma to her leg. Her dog also jumped on her and scratched her left foot now with resultant skin change to the top of the second toe. Past Medical History She has a past medical history of Anxiety, Chlamydial infection, unspecified, Elevated LFTs (05/25/2022), GERD (gastroesophageal reflux disease), Immunization not carried out because of patient refusal, LGSIL on Pap smear of cervix (07/20/2022), Other conditions influencing health status, Other specified postprocedural states, Prediabetes, and Raynaud's disease. Surgical History She has a past surgical history that includes Cervical biopsy w/ loop electrode excision (08/17/2014); Colposcopy (05/13/2022); and Mouth surgery. Social History She reports that she has been smoking cigarettes. She has a 1.00 pack-year smoking history. She has never used smokeless tobacco. She reports that she does not currently use alcohol. She reports current drug use. Drug: Marijuana. Family History Family History Problem Relation Name Age of Onset No Known Problems Mother Osteoporosis Father Parkinsonism Mother's Sister Parkinsonism Maternal Grandmother Asthma Other Diabetes Other Hypertension Other Heart attack Other Allergies Amlodipine Review of Systems Denies fever, chill, nausea, vomiting. Reports cough and diarrhea Physical Exam Alert and oriented - telehealth with nurse. Integument: Skin turgor is thin and atrophic with adjacent signs of cellulitis / infection with edema. no ecchymosiss, purulence, streaking, odor or necrosis. Skin discontinuity is noted to anterior left leg with granular and fibrous base. No adjacent bogginess or fluctuance noted. Vascular: Capillary fill time is brisk and less than 3 seconds to all digits. Hair is not present to lower extremities. Lower extremity edema. Neurological: Epicritic sensation is intact via light touch to lower extremities. Negative Babinski. Negative clonus. Musculoskeletal: Active range of motion digits bilateral. Pain on palpation left leg and not directly to the wound. Last Recorded Vitals Blood pressure 98/62, pulse 95, temperature 36 C (96.8 F), temperature source Temporal, resp. rate 16, height 1.727 m (5' 7.99), weight 80.8 kg (178 lb 2.1 oz), SpO2 94 %. Relevant Results No fracture, foreign body, destruction or soft tissue emphysema to foot xray left Tib fib xray left without fracture or gas or foreign body CT left leg with possible osteitis or early osteo. Mri recommended. Wound cultures pending Venous doppler left leg - neg for DVT. It is noted veins distal to popliteal were not evaluated due to patient refusal Assessment/Plan I reviewed and discussed the case including diagnostic data. The following care recommendations and intervention was performed: Debridement: will be considered pending treatment response Dressing care: silver alginate and gauze Offloading: compression management recommended Weightbearing status: as tolerated Infection management: continue iv broad spectrum AB. Wound cultures pending. Imaging reviewed. Due to chronicity of wound and suspicious CT scan findings, I recommend leg MRI to rule out osteo. I recommend additional concurrent infectious nidus workup due to her report recent diarrhea and cough Vascular work-up: venous doppler exam results noted Edema: medical diuresis, kristan and multilayer compression wrap ordered, elevation Healing optimization and nutrition: dejuan nutritional supplementation ordered Additional diagnostic data: reviewed data as noted Medical management noted and appreciated. Thanks for the consult. I will follow while in house. Please call if quesitons. Felicia Barbosa DPM FACFAS [facility] Contact via [employer] I spent 55 minutes in the professional and overall care of this patient. I performed this visit using real time telehealth tools including [employer] connection between my location and the patient's location. Prior to initiating the services, I obtained patient's verbal consent to perform this visit using telehealth tools and answered all the questions the patient had about the telehealth interaction. The patient has been explained that this is an interactive (audio / video) telehealth encounter and what that consists of. The patient understands and wishes to proceed. The patient understands the limitations of being examined in the remote setting. The physical exam is based on patient reported information and obtained through peripheral. Date consent obtained: 06-05-23 Reason for telehealth visit: different locations Originating site (patient location): [facility] [address] Distant site (provider location): [facility], [place] Start time of encounter: 12:41 End time of encounter: 12:51 The minutes spent with this patient are noted, over half of which was spent in counseling and coordination of care. documented in this encounter [facility] Work Phone: 06-06-2023 Plan of care note Problem: Pain - Adult Goal: Verbalizes/displays adequate comfort level or baseline comfort level Outcome: Met Problem: Fall/Injury Goal: Not fall by end of shift Outcome: Met Goal: Be free from injury by end of the shift Outcome: Met Goal: Use assistive devices by end of the shift Outcome: Met The patient's goals for the shift include pain control The clinical goals for the shift include pain control and able to get some sleep [facility] 06-06-2023 Miscellaneous Notes Problem: Pain - Adult Goal: Verbalizes/displays adequate comfort level or baseline comfort level Outcome: Met Problem: Fall/Injury Goal: Not fall by end of shift Outcome: Met Goal: Be free from injury by end of the shift Outcome: Met Goal: Use assistive devices by end of the shift Outcome: Met The patient's goals for the shift include pain control The clinical goals for the shift include pain control and able to get some sleep Patient was seen admitted overnight. Reviewed chart and agree with assessment plan Patient had an episode of vomiting. I will put her on clear liquid diet for now. And monitor. Should this recur, then I will go ahead and consider further investigation like a CT scan of the abdomen probably documented in this encounter [facility] Work Phone: 06-05-2023 Consult note Formatting of th is note is different from the original. Consults Reason For Consult Leg wound left History Of Present Illness Jayna Smith is a 37 y.o. female presenting with chronic left leg wound and now with increased pain, swelling and redness. She had prior antibiotic treatment, comprehensive wound care plan, and application of advanced wound care product with some reduction in ulcer size. She has returned to work this past week and has worse leg pain. She denies trauma to her leg. Her dog also jumped on her and scratched her left foot now with resultant skin change to the top of the second toe. Past Medical History She has a past medical history of Anxiety, Chlamydial infection, unspecified, Elevated LFTs (05/25/2022), GERD (gastroesophageal reflux disease), Immunization not carried out because of patient refusal, LGSIL on Pap smear of cervix (07/20/2022), Other conditions influencing health status, Other specified postprocedural states, Prediabetes, and Raynaud's disease. Surgical History She has a past surgical history that includes Cervical biopsy w/ loop electrode excision (08/17/2014); Colposcopy (05/13/2022); and Mouth surgery. Social History She reports that she has been smoking cigarettes. She has a 1.00 pack-year smoking history. She has never used smokeless tobacco. She reports that she does not currently use alcohol. She reports current drug use. Drug: Marijuana. Family History Family History Problem Relation Name Age of Onset No Known Problems Mother Osteoporosis Father Parkinsonism Mother's Sister Parkinsonism Maternal Grandmother Asthma Other Diabetes Other Hypertension Other Heart attack Other Allergies Amlodipine Review of Systems Denies fever, chill, nausea, vomiting. Reports cough and diarrhea Physical Exam Alert and oriented - telehealth with nurse. Integument: Skin turgor is thin and atrophic with adjacent signs of cellulitis / infection with edema. no ecchymosiss, purulence, streaking, odor or necrosis. Skin discontinuity is noted to anterior left leg with granular and fibrous base. No adjacent bogginess or fluctuance noted. Vascular: Capillary fill time is brisk and less than 3 seconds to all digits. Hair is not present to lower extremities. Lower extremity edema. Neurological: Epicritic sensation is intact via light touch to lower extremities. Negative Babinski. Negative clonus. Musculoskeletal: Active range of motion digits bilateral. Pain on palpation left leg and not directly to the wound. Last Recorded Vitals Blood pressure 98/62, pulse 95, temperature 36 C (96.8 F), temperature source Temporal, resp. rate 16, height 1.727 m (5' 7.99), weight 80.8 kg (178 lb 2.1 oz), SpO2 94 %. Relevant Results No fracture, foreign body, destruction or soft tissue emphysema to foot xray left Tib fib xray left without fracture or gas or foreign body CT left leg with possible osteitis or early osteo. Mri recommended. Wound cultures pending Venous doppler left leg - neg for DVT. It is noted veins distal to popliteal were not evaluated due to patient refusal Assessment/Plan I reviewed and discussed the case including diagnostic data. The following care recommendations and intervention was performed: Debridement: will be considered pending treatment response Dressing care: silver alginate and gauze Offloading: compression management recommended Weightbearing status: as tolerated Infection management: continue iv broad spectrum AB. Wound cultures pending. Imaging reviewed. Due to chronicity of wound and suspicious CT scan findings, I recommend leg MRI to rule out osteo. I recommend additional concurrent infectious nidus workup due to her report recent diarrhea and cough Vascular work-up: venous doppler exam results noted Edema: medical diuresis, kristan and multilayer compression wrap ordered, elevation Healing optimization and nutrition: dejuan nutritional supplementation ordered Additional diagnostic data: reviewed data as noted Medical management noted and appreciated. Thanks for the consult. I will follow while in house. Please call if quesitons. [facility] via [employer] I spent 55 minutes in the professional and overall care of this patient. I performed this visit using real time telehealth tools including [employer] connection between my location and the patient's location. Prior to initiating the services, I obtained patient's verbal consent to perform this visit using telehealth tools and answered all the questions the patient had about the telehealth interaction. The patient has been explained that this is an interactive (audio / video) telehealth encounter and what that consists of. The patient understands and wishes to proceed. The patient understands the limitations of being examined in the remote setting. The physical exam is based on patient reported information and obtained through peripheral. Date consent obtained: 06-05-23 Reason for telehealth visit: different locations Originating site (patient location): [place] [id number] Distant site (provider location): [facility], [place] Start time of encounter: 12:41 End time of encounter: 12:51 The minutes spent with this patient are noted, over half of which was spent in counseling and coordination of care. [facility] Work Phone: 06-05-2023 Note Formatting of this n ote might be different from the original. Patient was seen admitted overnight. Reviewed chart and agree with assessment plan [facility] Work Phone: 06-05-2023 Note Formatting of this n ote might be different from the original. Patient had an episode of vomiting. I will put her on clear liquid diet for now. And monitor. Should this recur, then I will go ahead and consider further investigation like a CT scan of the abdomen probably [facility] Work Phone: 06-05-2023 History and physical note History Of Present Illness Jayna Smith is a 37 y.o. female Who presented to the emergency room for worsening pain in her left leg in the setting of a chronic left leg wound. On presentation, vital signs grossly within normal limits. Also blood workup grossly within normal limits except for an albumin of 3.2 and alkaline phosphatase of 388. Blood cultures were sent. CT scan of the left leg was done. It showed anterior distal tibial superficial soft tissue ulceration with severe superficial soft tissue swelling. Patient was given in the emergency room IV Zosyn, vancomycin, morphine, and then admitted to the medical service for further investigation and management. Patient has a longstanding history of a chronic left leg anterior wound. She has been following up with podiatry for its management. She had surgical debridement done on 04/19/2023. Patient presented to the emergency room 2 days ago. She noted that she has been having worsening swelling on her left foot as well as worsening pain. She was given a prescription of Augmentin and discharged back home. But yet despite taking the antibiotic, patient continued to experience worsening pain and edema so she came to the emergency room. Denies having any fever or chills. But she reports having pain with weightbearing. ROS 10 systems were reviewed and were negative except for those noted in the history of present illness. Past Medical History Past Medical History: Diagnosis Date Anxiety Chlamydial infection, unspecified Chlamydia Elevated LFTs 05/25/2022 GERD (gastroesophageal reflux disease) Immunization not carried out because of patient refusal Influenza vaccination declined LGSIL on Pap smear of cervix 07/20/2022 Other conditions influencing health status History of Other specified postprocedural states History of Papanicolaou smear Prediabetes Raynaud's disease Pertinent medical history also documented in my below narrative Surgical History Past Surgical History: Procedure Laterality Date CERVICAL BIOPSY W/ LOOP ELECTRODE EXCISION 08/17/2014 dr. temple COLPOSCOPY 05/13/2022 MOUTH SURGERY Pertinent surgical history also documented in my below narrative Social History She reports that she has been smoking cigarettes. She has a 1.00 pack-year smoking history. She has never used smokeless tobacco. She reports that she does not currently use alcohol. She reports current drug use. Drug: Marijuana. Family History Family History Problem Relation Name Age of Onset No Known Problems Mother Osteoporosis Father Parkinsonism Mother's Sister Parkinsonism Maternal Grandmother Asthma Other Diabetes Other Hypertension Other Heart attack Other Allergies Amlodipine Medications Prior to Admission Medication Sig Dispense Refill Last Dose acetaminophen (Tylenol) 325 mg tablet Take 2 tablets (650 mg) by mouth every 6 hours if needed for mild pain (1 - 3). 06/03/2023 amoxicillin-pot clavulanate (Augmentin) 875-125 mg tablet Take 1 tablet by mouth every 12 hours for 7 days. 14 tablet 0 ascorbic acid (Vitamin C) 500 mg tablet Take 1 tablet (500 mg) by mouth once daily. More than a month busPIRone (Buspar) 5 mg tablet Take 1 tablet (5 mg) by mouth 3 times a day as needed (anxiety). More than a month cholecalciferol (Vitamin D3) 25 MCG (1000 UT) tablet Take 1 tablet (1,000 Units) by mouth once daily. More than a month etodolac (Lodine) 400 mg tablet Take 1 tablet (400 mg) by mouth 2 times a day for 7 days. 14 tablet 0 lisinopril 2.5 mg tablet Take 1 tablet (2.5 mg) by mouth once daily. 04/05/2023 loratadine (Claritin) 10 mg tablet Take 1 tablet (10 mg) by mouth once daily as needed for allergies. More than a month omeprazole (PriLOSEC) [address] capsule Take 1 capsule (20 mg) by mouth once daily as needed (acid reflex). More than a month pantoprazole (ProtoNix) 20 mg EC tablet Take 1 tablet (20 mg) by mouth once daily in the morning. Take before meals. Do not crush, chew, or split. More than a month polyethylene glycol (Glycolax, Miralax) 17 gram packet Take 17 g by mouth once daily. More than a month zinc gluconate 50 mg tablet Take 1 tablet (50 mg of elemental zinc) by mouth once daily. More than a month Last Recorded Vitals Blood pressure 92/72, pulse 94, temperature 36.3 C (97.3 F), temperature source Oral, resp. rate 18, height 1.727 m (5' 7.99), weight 80.8 kg (178 lb 2.1 oz), SpO2 94 %. Physical Exam Constitutional: General: She is not in acute distress. Appearance: She is ill-appearing. Comments: Awake alert and oriented x3 HENT: Mouth/Throat: Pharynx: Oropharynx is clear. Eyes: Pupils: Pupils are equal, round, and reactive to light. Cardiovascular: Rate and Rhythm: Normal rate and regular rhythm. Heart sounds: Normal heart sounds. Pulmonary: Effort: No respiratory distress. Breath sounds: Normal breath sounds. No wheezing or rhonchi. Abdominal: General: Abdomen is flat. Bowel sounds are normal. There is no distension. Palpations: Abdomen is soft. Tenderness: There is no abdominal tenderness. Musculoskeletal: Comments: Left lower extremity significant edema starting from the left foot all the way up to the thighs. At the foot, there is also erythema and warmth. At the left lower third of the leg, there is a wound dressing. Further description of the wound per the ER physician documentation. Skin: General: Skin is warm. Neurological: General: No focal deficit present. Psychiatric: Mood and Affect: Mood normal. Behavior: Behavior normal. Thought Content: Thought content normal. Judgment: Judgment normal. Relevant Results Results for orders placed or performed during the hospital encounter of 06/04/23 (from the past 24 hour(s)) Lactate Result Value Ref Range Lactate 1.8 0.4 - 2.0 mmol/L CBC and Auto Differential Result Value Ref Range WBC 8.1 4.4 - 11.3 x10*3/uL nRBC 0.0 0.0 - 0.0 /100 WBCs RBC 5.28 (H) 4.00 - 5.20 x10*6/uL Hemoglobin 14.8 12.0 - 16.0 g/dL Hematocrit 45.8 36.0 - 46.0 % MCV 87 80 - 100 fL MCH 28.0 26.0 - 34.0 pg MCHC 32.3 32.0 - 36.0 g/dL RDW 15.9 (H) 11.5 - 14.5 % Platelets 232 150 - 450 x10*3/uL Neutrophils % 62.8 40.0 - 80.0 % Immature Granulocytes %, Automated 0.6 0.0 - 0.9 % Lymphocytes % 20.9 13.0 - 44.0 % Monocytes % 13.4 2.0 - 10.0 % Eosinophils % 1.7 0.0 - 6.0 % Basophils % 0.6 0.0 - 2.0 % Neutrophils Absolute 5.07 1.20 - 7.70 x10*3/uL Immature Granulocytes Absolute, Automated 0.05 0.00 - 0.70 x10*3/uL Lymphocytes Absolute 1.69 1.20 - 4.80 x10*3/uL Monocytes Absolute 1.08 (H) 0.10 - 1.00 x10*3/uL Eosinophils Absolute 0.14 0.00 - 0.70 x10*3/uL Basophils Absolute 0.05 0.00 - 0.10 x10*3/uL Comprehensive Metabolic Panel Result Value Ref Range Glucose 125 (H) 74 - 99 mg/dL Sodium 134 (L) 136 - 145 mmol/L Potassium 4.1 3.5 - 5.3 mmol/L Chloride 101 98 - 107 mmol/L Bicarbonate 23 21 - 32 mmol/L Anion Gap 14 10 - 20 mmol/L Urea Nitrogen 19 6 - 23 mg/dL Creatinine 1.04 0.50 - 1.05 mg/dL eGFR 70 >60 mL/min/1.73m*2 Calcium 8.7 8.6 - 10.3 mg/dL Albumin 3.2 (L) 3.4 - 5.0 g/dL Alkaline Phosphatase 388 (H) 33 - 110 U/L Total Protein 6.4 6.4 - 8.2 g/dL AST 17 9 - 39 U/L Bilirubin, Total 1.8 (H) 0.0 - 1.2 mg/dL ALT 13 7 - 45 U/L Urinalysis with Reflex Culture and Microscopic Result Value Ref Range Color, Urine Yellow Straw, Yellow Appearance, Urine Clear Clear Specific Randolph, Urine 1.020 1.005 - 1.035 pH, Urine 6.0 5.0, 5.5, 6.0, 6.5, 7.0, 7.5, 8.0 Protein, Urine >=300 (3+) (A) NEGATIVE, TRACE mg/dL Glucose, Urine NEGATIVE NEGATIVE mg/dL Blood, Urine TRACE (A) NEGATIVE Ketones, Urine NEGATIVE NEGATIVE mg/dL Bilirubin, Urine NEGATIVE NEGATIVE Urobilinogen, Urine 1.0 0.2, 1.0 mg/dL Nitrite, Urine NEGATIVE NEGATIVE Leukocyte Esterase, Urine NEGATIVE NEGATIVE Urinalysis Microscopic Result Value Ref Range WBC, Urine NONE 1-5, NONE /HPF RBC, Urine 1-2 NONE, 1-2, 3-5 /HPF Squamous Epithelial Cells, Urine 1-9 (SPARSE) Reference range not established. /HPF Mucus, Urine 1+ Reference range not established. /LPF CT tibia fibula left w IV contrast Result Date: 06/05/2023 Interpreted By: Jesús Rubalcava, STUDY: CT TIBIA FIBULA LEFT W IV CONTRAST; 06/04/2023 11:20 pm INDICATION: Signs/Symptoms:wound. COMPARISON: 04/26/2023 radiographs ACCESSION NUMBER(S): [id number] ORDERING CLINICIAN: JOSUÉ IGLESIAS TECHNIQUE: Axial CT of the left tibia/fibula was performed with sagittal and coronal reformats. Intravenous contrast was administered, 80 mL Omnipaque 350. FINDINGS: There is severe subcutaneous edema throughout the lower leg. There are extensive subcutaneous venous varices. There is focal skin/superficial soft tissue ulceration at the anterior distal tibia with underlying inflammatory change that extends to the surface of tibia with associated coarse periosteal reaction (axial image 159/240) no tibial erosive change is identified. No organized fluid collection. No knee joint effusion. Bone islands within the medial distal femur and proximal tibia. 1. Anterior distal tibial superficial soft tissue ulceration without underlying fluid collection. Inflammatory changes associated with the ulcer extends to the anterior bone surface of the tibia with associated periosteal reaction. No erosive change. The findings could reflect mild focal osteitis or early osteomyelitis. MRI is suggested for further evaluation. 2. Severe superficial soft tissue swelling. Signed by: Jesús Rubalcava 06/05/2023 12:26 AM Dictation workstation: [id number] Assessment/Plan 37-year-old female, smoker, with a past medical history of chronic left anterior leg wound status postsurgical debridement back on April 2023, hypertension, anxiety, Raynaud's disease, and constipation who presented to the emergency room for worsening left lower extremity swelling and pain. I will admit the patient to the inpatient medical service with vital signs monitoring. I will continue treating with the IV Zosyn and IV vancomycin and consult podiatry. Order lower extremities duplex venous given the significant swelling of the left leg. Give Toradol 30 mg IV every 6 hours scheduled. Additional pain control as needed. Resume home medications Nicotine patch SCDs for DVT prophylaxis Full code (This note was generated with voice recognition software and may contain errors including spelling, grammar, syntax and misrecognition of what was dictated, that are not fully corrected) Letha Layton MD [facility] Work Phone: 06-05-2023 History and physical note History Of Present Illness Jayna Smith is a 37 y.o. female Who presented to the emergency room for worsening pain in her left leg in the setting of a chronic left leg wound. On presentation, vital signs grossly within normal limits. Also blood workup grossly within normal limits except for an albumin of 3.2 and alkaline phosphatase of 388. Blood cultures were sent. CT scan of the left leg was done. It showed anterior distal tibial superficial soft tissue ulceration with severe superficial soft tissue swelling. Patient was given in the emergency room IV Zosyn, vancomycin, morphine, and then admitted to the medical service for further investigation and management. Patient has a longstanding history of a chronic left leg anterior wound. She has been following up with podiatry for its management. She had surgical debridement done on 04/19/2023. Patient presented to the emergency room 2 days ago. She noted that she has been having worsening swelling on her left foot as well as worsening pain. She was given a prescription of Augmentin and discharged back home. But yet despite taking the antibiotic, patient continued to experience worsening pain and edema so she came to the emergency room. Denies having any fever or chills. But she reports having pain with weightbearing. ROS 10 systems were reviewed and were negative except for those noted in the history of present illness. Past Medical History Past Medical History: Diagnosis Date Anxiety Chlamydial infection, unspecified Chlamydia Elevated LFTs 05/25/2022 GERD (gastroesophageal reflux disease) Immunization not carried out because of patient refusal Influenza vaccination declined LGSIL on Pap smear of cervix 07/20/2022 Other conditions influencing health status History of Other specified postprocedural states History of Papanicolaou smear Prediabetes Raynaud's disease Pertinent medical history also documented in my below narrative Surgical History Past Surgical History: Procedure Laterality Date CERVICAL BIOPSY W/ LOOP ELECTRODE EXCISION 08/17/2014 dr. temple COLPOSCOPY 05/13/2022 MOUTH SURGERY Pertinent surgical history also documented in my below narrative Social History She reports that she has been smoking cigarettes. She has a 1.00 pack-year smoking history. She has never used smokeless tobacco. She reports that she does not currently use alcohol. She reports current drug use. Drug: Marijuana. Family History Family History Problem Relation Name Age of Onset No Known Problems Mother Osteoporosis Father Parkinsonism Mother's Sister Parkinsonism Maternal Grandmother Asthma Other Diabetes Other Hypertension Other Heart attack Other Allergies Amlodipine Medications Prior to Admission Medication Sig Dispense Refill Last Dose acetaminophen (Tylenol) 325 mg tablet Take 2 tablets (650 mg) by mouth every 6 hours if needed for mild pain (1 - 3). 06/03/2023 amoxicillin-pot clavulanate (Augmentin) 875-125 mg tablet Take 1 tablet by mouth every 12 hours for 7 days. 14 tablet 0 ascorbic acid (Vitamin C) 500 mg tablet Take 1 tablet (500 mg) by mouth once daily. More than a month busPIRone (Buspar) 5 mg tablet Take 1 tablet (5 mg) by mouth 3 times a day as needed (anxiety). More than a month cholecalciferol (Vitamin D3) 25 MCG (1000 UT) tablet Take 1 tablet (1,000 Units) by mouth once daily. More than a month etodolac (Lodine) 400 mg tablet Take 1 tablet (400 mg) by mouth 2 times a day for 7 days. 14 tablet 0 lisinopril 2.5 mg tablet Take 1 tablet (2.5 mg) by mouth once daily. 04/05/2023 loratadine (Claritin) 10 mg tablet Take 1 tablet (10 mg) by mouth once daily as needed for allergies. More than a month omeprazole (PriLOSEC) [address] capsule Take 1 capsule (20 mg) by mouth once daily as needed (acid reflex). More than a month pantoprazole (ProtoNix) 20 mg EC tablet Take 1 tablet (20 mg) by mouth once daily in the morning. Take before meals. Do not crush, chew, or split. More than a month polyethylene glycol (Glycolax, Miralax) 17 gram packet Take 17 g by mouth once daily. More than a month zinc gluconate 50 mg tablet Take 1 tablet (50 mg of elemental zinc) by mouth once daily. More than a month Last Recorded Vitals Blood pressure 92/72, pulse 94, temperature 36.3 C (97.3 F), temperature source Oral, resp. rate 18, height 1.727 m (5' 7.99), weight 80.8 kg (178 lb 2.1 oz), SpO2 94 %. Physical Exam Constitutional: General: She is not in acute distress. Appearance: She is ill-appearing. Comments: Awake alert and oriented x3 HENT: Mouth/Throat: Pharynx: Oropharynx is clear. Eyes: Pupils: Pupils are equal, round, and reactive to light. Cardiovascular: Rate and Rhythm: Normal rate and regular rhythm. Heart sounds: Normal heart sounds. Pulmonary: Effort: No respiratory distress. Breath sounds: Normal breath sounds. No wheezing or rhonchi. Abdominal: General: Abdomen is flat. Bowel sounds are normal. There is no distension. Palpations: Abdomen is soft. Tenderness: There is no abdominal tenderness. Musculoskeletal: Comments: Left lower extremity significant edema starting from the left foot all the way up to the thighs. At the foot, there is also erythema and warmth. At the left lower third of the leg, there is a wound dressing. Further description of the wound per the ER physician documentation. Skin: General: Skin is warm. Neurological: General: No focal deficit present. Psychiatric: Mood and Affect: Mood normal. Behavior: Behavior normal. Thought Content: Thought content normal. Judgment: Judgment normal. Relevant Results Results for orders placed or performed during the hospital encounter of 06/04/23 (from the past 24 hour(s)) Lactate Result Value Ref Range Lactate 1.8 0.4 - 2.0 mmol/L CBC and Auto Differential Result Value Ref Range WBC 8.1 4.4 - 11.3 x10*3/uL nRBC 0.0 0.0 - 0.0 /100 WBCs RBC 5.28 (H) 4.00 - 5.20 x10*6/uL Hemoglobin 14.8 12.0 - 16.0 g/dL Hematocrit 45.8 36.0 - 46.0 % MCV 87 80 - 100 fL MCH 28.0 26.0 - 34.0 pg MCHC 32.3 32.0 - 36.0 g/dL RDW 15.9 (H) 11.5 - 14.5 % Platelets 232 150 - 450 x10*3/uL Neutrophils % 62.8 40.0 - 80.0 % Immature Granulocytes %, Automated 0.6 0.0 - 0.9 % Lymphocytes % 20.9 13.0 - 44.0 % Monocytes % 13.4 2.0 - 10.0 % Eosinophils % 1.7 0.0 - 6.0 % Basophils % 0.6 0.0 - 2.0 % Neutrophils Absolute 5.07 1.20 - 7.70 x10*3/uL Immature Granulocytes Absolute, Automated 0.05 0.00 - 0.70 x10*3/uL Lymphocytes Absolute 1.69 1.20 - 4.80 x10*3/uL Monocytes Absolute 1.08 (H) 0.10 - 1.00 x10*3/uL Eosinophils Absolute 0.14 0.00 - 0.70 x10*3/uL Basophils Absolute 0.05 0.00 - 0.10 x10*3/uL Comprehensive Metabolic Panel Result Value Ref Range Glucose 125 (H) 74 - 99 mg/dL Sodium 134 (L) 136 - 145 mmol/L Potassium 4.1 3.5 - 5.3 mmol/L Chloride 101 98 - 107 mmol/L Bicarbonate 23 21 - 32 mmol/L Anion Gap 14 10 - 20 mmol/L Urea Nitrogen 19 6 - 23 mg/dL Creatinine 1.04 0.50 - 1.05 mg/dL eGFR 70 >60 mL/min/1.73m*2 Calcium 8.7 8.6 - 10.3 mg/dL Albumin 3.2 (L) 3.4 - 5.0 g/dL Alkaline Phosphatase 388 (H) 33 - 110 U/L Total Protein 6.4 6.4 - 8.2 g/dL AST 17 9 - 39 U/L Bilirubin, Total 1.8 (H) 0.0 - 1.2 mg/dL ALT 13 7 - 45 U/L Urinalysis with Reflex Culture and Microscopic Result Value Ref Range Color, Urine Yellow Straw, Yellow Appearance, Urine Clear Clear Specific Randolph, Urine 1.020 1.005 - 1.035 pH, Urine 6.0 5.0, 5.5, 6.0, 6.5, 7.0, 7.5, 8.0 Protein, Urine >=300 (3+) (A) NEGATIVE, TRACE mg/dL Glucose, Urine NEGATIVE NEGATIVE mg/dL Blood, Urine TRACE (A) NEGATIVE Ketones, Urine NEGATIVE NEGATIVE mg/dL Bilirubin, Urine NEGATIVE NEGATIVE Urobilinogen, Urine 1.0 0.2, 1.0 mg/dL Nitrite, Urine NEGATIVE NEGATIVE Leukocyte Esterase, Urine NEGATIVE NEGATIVE Urinalysis Microscopic Result Value Ref Range WBC, Urine NONE 1-5, NONE /HPF RBC, Urine 1-2 NONE, 1-2, 3-5 /HPF Squamous Epithelial Cells, Urine 1-9 (SPARSE) Reference range not established. /HPF Mucus, Urine 1+ Reference range not established. /LPF CT tibia fibula left w IV contrast Result Date: 06/05/2023 Interpreted By: Jesús Rubalcava, STUDY: CT TIBIA FIBULA LEFT W IV CONTRAST; 06/04/2023 11:20 pm INDICATION: Signs/Symptoms:wound. COMPARISON: 04/26/2023 radiographs ACCESSION NUMBER(S): [id number] ORDERING CLINICIAN: JOSUÉ IGLESIAS TECHNIQUE: Axial CT of the left tibia/fibula was performed with sagittal and coronal reformats. Intravenous contrast was administered, 80 mL Omnipaque 350. FINDINGS: There is severe subcutaneous edema throughout the lower leg. There are extensive subcutaneous venous varices. There is focal skin/superficial soft tissue ulceration at the anterior distal tibia with underlying inflammatory change that extends to the surface of tibia with associated coarse periosteal reaction (axial image 159/240) no tibial erosive change is identified. No organized fluid collection. No knee joint effusion. Bone islands within the medial distal femur and proximal tibia. 1. Anterior distal tibial superficial soft tissue ulceration without underlying fluid collection. Inflammatory changes associated with the ulcer extends to the anterior bone surface of the tibia with associated periosteal reaction. No erosive change. The findings could reflect mild focal osteitis or early osteomyelitis. MRI is suggested for further evaluation. 2. Severe superficial soft tissue swelling. Signed by: Jesús Rubalcava 06/05/2023 12:26 AM Dictation workstation: [id number] Assessment/Plan 37-year-old female, smoker, with a past medical history of chronic left anterior leg wound status postsurgical debridement back on April 2023, hypertension, anxiety, Raynaud's disease, and constipation who presented to the emergency room for worsening left lower extremity swelling and pain. I will admit the patient to the inpatient medical service with vital signs monitoring. I will continue treating with the IV Zosyn and IV vancomycin and consult podiatry. Order lower extremities duplex venous given the significant swelling of the left leg. Give Toradol 30 mg IV every 6 hours scheduled. Additional pain control as needed. Resume home medications Nicotine patch SCDs for DVT prophylaxis Full code (This note was generated with voice recognition software and may contain errors including spelling, grammar, syntax and misrecognition of what was dictated, that are not fully corrected) Letha Layton MD documented in this encounter [facility] Work Phone: 06-04-2023 Emergency department Note HPI Chief Complaint Patient presents with Leg Pain Pt has a wound on her left leg. Pt has tightness, pain, and redness. Pt was seen here Sunday morning and was placed on a antibiotic and pain medications. Limitations to History: None HPI: 37-year-old female presents with concern for increasing redness and pain to her left lower extremity. History of chronic anterior wound. States that she had diarrhea on Sunday and was seen here and prescribed antibiotic therapy. States that the redness is increased as well as the pain. Does follow with a local clinical psychology professor for wound checks. States that she had chills yesterday into today. Denies any nausea, vomiting, chest pain, shortness of breath, abdominal pain, urinary symptoms. Additional History Obtained from: Significant other at the bedside. Physical Exam: VS: As documented in the triage note and EMR flowsheet from this visit were reviewed. Appearance: Alert. cooperative, in no acute distress. Skin: Significant erythema to the left lower extremity from the level of the knee to the foot. Ulcer to the anterior tibial region. Eyes: PERRLA, EOMs intact, Conjunctiva pink with no redness or exudates. HENT: Normocephalic, atraumatic. Nares patent. No intraoral lesions. Neck: Supple, without meningismus. Trachea at midline. No lymphadenopathy. Pulmonary: Clear bilaterally with good chest wall excursion. No rales, rhonchi or wheezing. No accessory muscle use or stridor. Cardiac: Regular rate and rhythm, no rubs, murmurs, or gallops. Abdomen: Abdomen soft, nontender, and nondistended. No palpable organomegaly. No rebound or guarding. No CVA tenderness. Nonsurgical abdomen. Genitourinary: Exam deferred. Musculoskeletal: Full range of motion of the left knee and ankle. Tenderness to palpation throughout the leg which is firm with compressible compartments. Strong palpable popliteal, DP, PT pulses. Neurological: Station grossly intact to left lower extremity. Psychiatric: Appropriate mood and affect. Dominick Coma Scale Score: 15 Patient History Past Medical History: Diagnosis Date Anxiety Chlamydial infection, unspecified Chlamydia Elevated LFTs 05/25/2022 GERD (gastroesophageal reflux disease) Immunization not carried out because of patient refusal Influenza vaccination declined LGSIL on Pap smear of cervix 07/20/2022 Other conditions influencing health status History of Other specified postprocedural states History of Papanicolaou smear Prediabetes Raynaud's disease Past Surgical History: Procedure Laterality Date CERVICAL BIOPSY W/ LOOP ELECTRODE EXCISION 08/17/2014 dr. temple COLPOSCOPY 05/13/2022 MOUTH SURGERY Family History Problem Relation Name Age of Onset No Known Problems Mother Osteoporosis Father Parkinsonism Mother's Sister Parkinsonism Maternal Grandmother Asthma Other Diabetes Other Hypertension Other Heart attack Other Social History Tobacco Use Smoking status: Every Day Packs/day: 0.50 Years: 2.00 Additional pack years: 0.00 Total pack years: 1.00 Types: Cigarettes Last attempt to quit: 03/30/2023 Years since quittin.1 Smokeless tobacco: Never Vaping Use Vaping Use: Every day Substances: Nicotine, THC, CBD, Flavoring Devices: Disposable Substance Use Topics Alcohol use: Not Currently Comment: RARE Drug use: Yes Types: Marijuana Comment: occassionally Physical Exam ED Triage Vitals [06/04/232121] Temperature Heart Rate Respirations BP 37.6 C (99.6 F) 93 17 (!) 128/102 Pulse Ox Temp Source Heart Rate Source Patient Position 94 % Tympanic -- -- BP Location FiO2 (%) Left arm -- Physical Exam ED Course & MDM Diagnoses as of 06/05/23 0111 Cellulitis Medical Decision Making Labs Reviewed CBC WITH AUTO DIFFERENTIAL - Abnormal WBC 8.1 nRBC 0.0 RBC 5.28 (*) Hemoglobin 14.8 Hematocrit 45.8 MCV 87 MCH 28.0 MCHC 32.3 RDW 15.9 (*) Platelets 232 Neutrophils % 62.8 Immature Granulocytes %, Automated 0.6 Lymphocytes % 20.9 Monocytes % 13.4 Eosinophils % 1.7 Basophils % 0.6 Neutrophils Absolute 5.07 Immature Granulocytes Absolute, Au* 0.05 Lymphocytes Absolute 1.69 Monocytes Absolute 1.08 (*) Eosinophils Absolute 0.14 Basophils Absolute 0.05 COMPREHENSIVE METABOLIC PANEL - Abnormal Glucose 125 (*) Sodium 134 (*) Potassium 4.1 Chloride 101 Bicarbonate 23 Anion Gap 14 Urea Nitrogen 19 Creatinine 1.04 eGFR 70 Calcium 8.7 Albumin 3.2 (*) Alkaline Phosphatase 388 (*) Total Protein 6.4 AST 17 Bilirubin, Total 1.8 (*) ALT 13 URINALYSIS WITH REFLEX CULTURE AND MICROSCOPIC - Abnormal Color, Urine Yellow Appearance, Urine Clear Specific Randolph, Urine 1.020 pH, Urine 6.0 Protein, Urine >=300 (3+) (*) Glucose, Urine NEGATIVE Blood, Urine TRACE (*) Ketones, Urine NEGATIVE Bilirubin, Urine NEGATIVE Urobilinogen, Urine 1.0 Nitrite, Urine NEGATIVE Leukocyte Esterase, Urine NEGATIVE LACTATE - Normal Lactate 1.8 Narrative: Venipuncture immediately after or during the administration of Metamizole may lead to falsely low results. Testing should be performed immediately prior to Metamizole dosing. BLOOD CULTURE BLOOD CULTURE URINALYSIS WITH REFLEX CULTURE AND MICROSCOPIC Narrative: The following orders were created for panel order Urinalysis with Reflex Culture and Microscopic. Procedure Abnormality Status --------- ------ Urinalysis with Reflex C...[[id number]] Abnormal Final result Extra Urine Martell Tube[[id number]] Please view results for these tests on the individual orders. EXTRA URINE MARTELL TUBE URINALYSIS MICROSCOPIC WITH REFLEX CULTURE CT tibia fibula left w IV contrast Final Result 1. Anterior distal tibial superficial soft tissue ulceration without underlying fluid collection. Inflammatory changes associated with the ulcer extends to the anterior bone surface of the tibia with associated periosteal reaction. No erosive change. The findings could reflect mild focal osteitis or early osteomyelitis. MRI is suggested for further evaluation. 2. Severe superficial soft tissue swelling. Signed by: Jesús Rubalcava 06/05/2023 12:26 AM Dictation workstation: [id number] Medical Decision Making: Patient appears well nontoxic. Lab work within normal limits. Lactate negative. CT of the lower extremity shows extensive cellulitis with possible underlying osteitis. Treated with broad-spectrum antibiotics. Blood cultures pending. Case discussed with hospitalist who is agreeable with admission. Admitted in stable condition. Differential Diagnoses Considered: Cellulitis, ulcer, abscess, sepsis, necrotizing fasciitis Escalation of Care: Appropriate for admission for further treatment and evaluation. Procedure Procedures Josué Iglesias DO 06/05/23 0113 Josué Iglesias DO 06/05/23 0119 documented in this encounter [facility] Work Phone: 06-04-2023 Physician Emergency department Note HPI Chief Complaint Patient presents with Leg Pain Pt has a wound on her left leg. Pt has tightness, pain, and redness. Pt was seen here Sunday morning and was placed on a antibiotic and pain medications. Limitations to History: None HPI: 37-year-old female presents with concern for increasing redness and pain to her left lower extremity. History of chronic anterior wound. States that she had diarrhea on Sunday and was seen here and prescribed antibiotic therapy. States that the redness is increased as well as the pain. Does follow with a local clinical psychology professor for wound checks. States that she had chills yesterday into today. Denies any nausea, vomiting, chest pain, shortness of breath, abdominal pain, urinary symptoms. Additional History Obtained from: Significant other at the bedside. Physical Exam: VS: As documented in the triage note and EMR flowsheet from this visit were reviewed. Appearance: Alert. cooperative, in no acute distress. Skin: Significant erythema to the left lower extremity from the level of the knee to the foot. Ulcer to the anterior tibial region. Eyes: PERRLA, EOMs intact, Conjunctiva pink with no redness or exudates. HENT: Normocephalic, atraumatic. Nares patent. No intraoral lesions. Neck: Supple, without meningismus. Trachea at midline. No lymphadenopathy. Pulmonary: Clear bilaterally with good chest wall excursion. No rales, rhonchi or wheezing. No accessory muscle use or stridor. Cardiac: Regular rate and rhythm, no rubs, murmurs, or gallops. Abdomen: Abdomen soft, nontender, and nondistended. No palpable organomegaly. No rebound or guarding. No CVA tenderness. Nonsurgical abdomen. Genitourinary: Exam deferred. Musculoskeletal: Full range of motion of the left knee and ankle. Tenderness to palpation throughout the leg which is firm with compressible compartments. Strong palpable popliteal, DP, PT pulses. Neurological: Station grossly intact to left lower extremity. Psychiatric: Appropriate mood and affect. Dominick Coma Scale Score: 15 Patient History Past Medical History: Diagnosis Date Anxiety Chlamydial infection, unspecified Chlamydia Elevated LFTs 05/25/2022 GERD (gastroesophageal reflux disease) Immunization not carried out because of patient refusal Influenza vaccination declined LGSIL on Pap smear of cervix 07/20/2022 Other conditions influencing health status History of Other specified postprocedural states History of Papanicolaou smear Prediabetes Raynaud's disease Past Surgical History: Procedure Laterality Date CERVICAL BIOPSY W/ LOOP ELECTRODE EXCISION 08/17/2014 dr. temple COLPOSCOPY 05/13/2022 MOUTH SURGERY Family History Problem Relation Name Age of Onset No Known Problems Mother Osteoporosis Father Parkinsonism Mother's Sister Parkinsonism Maternal Grandmother Asthma Other Diabetes Other Hypertension Other Heart attack Other Social History Tobacco Use Smoking status: Every Day Packs/day: 0.50 Years: 2.00 Additional pack years: 0.00 Total pack years: 1.00 Types: Cigarettes Last attempt to quit: 03/30/2023 Years since quittin.1 Smokeless tobacco: Never Vaping Use Vaping Use: Every day Substances: Nicotine, THC, CBD, Flavoring Devices: Disposable Substance Use Topics Alcohol use: Not Currently Comment: RARE Drug use: Yes Types: Marijuana Comment: occassionally Physical Exam ED Triage Vitals [06/04/232121] Temperature Heart Rate Respirations BP 37.6 C (99.6 F) 93 17 (!) 128/102 Pulse Ox Temp Source Heart Rate Source Patient Position 94 % Tympanic -- -- BP Location FiO2 (%) Left arm -- Physical Exam ED Course & MDM Diagnoses as of 06/05/23 0111 Cellulitis Medical Decision Making Labs Reviewed CBC WITH AUTO DIFFERENTIAL - Abnormal WBC 8.1 nRBC 0.0 RBC 5.28 (*) Hemoglobin 14.8 Hematocrit 45.8 MCV 87 MCH 28.0 MCHC 32.3 RDW 15.9 (*) Platelets 232 Neutrophils % 62.8 Immature Granulocytes %, Automated 0.6 Lymphocytes % 20.9 Monocytes % 13.4 Eosinophils % 1.7 Basophils % 0.6 Neutrophils Absolute 5.07 Immature Granulocytes Absolute, Au* 0.05 Lymphocytes Absolute 1.69 Monocytes Absolute 1.08 (*) Eosinophils Absolute 0.14 Basophils Absolute 0.05 COMPREHENSIVE METABOLIC PANEL - Abnormal Glucose 125 (*) Sodium 134 (*) Potassium 4.1 Chloride 101 Bicarbonate 23 Anion Gap 14 Urea Nitrogen 19 Creatinine 1.04 eGFR 70 Calcium 8.7 Albumin 3.2 (*) Alkaline Phosphatase 388 (*) Total Protein 6.4 AST 17 Bilirubin, Total 1.8 (*) ALT 13 URINALYSIS WITH REFLEX CULTURE AND MICROSCOPIC - Abnormal Color, Urine Yellow Appearance, Urine Clear Specific Randolph, Urine 1.020 pH, Urine 6.0 Protein, Urine >=300 (3+) (*) Glucose, Urine NEGATIVE Blood, Urine TRACE (*) Ketones, Urine NEGATIVE Bilirubin, Urine NEGATIVE Urobilinogen, Urine 1.0 Nitrite, Urine NEGATIVE Leukocyte Esterase, Urine NEGATIVE LACTATE - Normal Lactate 1.8 Narrative: Venipuncture immediately after or during the administration of Metamizole may lead to falsely low results. Testing should be performed immediately prior to Metamizole dosing. BLOOD CULTURE BLOOD CULTURE URINALYSIS WITH REFLEX CULTURE AND MICROSCOPIC Narrative: The following orders were created for panel order Urinalysis with Reflex Culture and Microscopic. Procedure Abnormality Status --------- ------ Urinalysis with Reflex C...[[id number]] Abnormal Final result Extra Urine Martell Tube[[id number]] Please view results for these tests on the individual orders. EXTRA URINE MARTELL TUBE URINALYSIS MICROSCOPIC WITH REFLEX CULTURE CT tibia fibula left w IV contrast Final Result 1. Anterior distal tibial superficial soft tissue ulceration without underlying fluid collection. Inflammatory changes associated with the ulcer extends to the anterior bone surface of the tibia with associated periosteal reaction. No erosive change. The findings could reflect mild focal osteitis or early osteomyelitis. MRI is suggested for further evaluation. 2. Severe superficial soft tissue swelling. Signed by: Jesús Rubalcava 06/05/2023 12:26 AM Dictation workstation: [id number] Medical Decision Making: Patient appears well nontoxic. Lab work within normal limits. Lactate negative. CT of the lower extremity shows extensive cellulitis with possible underlying osteitis. Treated with broad-spectrum antibiotics. Blood cultures pending. Case discussed with hospitalist who is agreeable with admission. Admitted in stable condition. Differential Diagnoses Considered: Cellulitis, ulcer, abscess, sepsis, necrotizing fasciitis Escalation of Care: Appropriate for admission for further treatment and evaluation. Procedure Procedures Josué Iglesias DO 06/05/23 0113 Josué Iglesias DO 06/05/23 0119 [facility] Work Phone: 06-03-2023 Emergency department Note HPI Chief Complaint Patient presents with Leg Injury Pt comes in for left leg pain. Pt states that starting last wk she noticed that she was having pain and swelling in her left foot and leg. Pt states that over the last couple days it has gotten worse. Pt states that she has a wound that she has been dealing with for a long time. Patient presents to the emergency department secondary to a left lower extremity wound. The patient has a longstanding history going back several years of a nonhealing ulcer to the distal left pretibial region with surrounding cellulitis. She is under the care of Dr. Barbosa for this. She states she is keeping her appointments every few weeks. She states that over the past week she was ill with diarrhea which has since subsided but has not gone around to changing her lower extremity dressing. She feels the area surrounding is becoming more erythematous and painful and she presents now to the emergency room to be further evaluated. History provided by: Patient tool checker used: Nubia Tan Coma Scale Score: 15 Patient History Past Medical History: Diagnosis Date Anxiety Chlamydial infection, unspecified Chlamydia Elevated LFTs 05/25/2022 GERD (gastroesophageal reflux disease) Immunization not carried out because of patient refusal Influenza vaccination declined LGSIL on Pap smear of cervix 07/20/2022 Other conditions influencing health status History of Other specified postprocedural states History of Papanicolaou smear Prediabetes Raynaud's disease Past Surgical History: Procedure Laterality Date CERVICAL BIOPSY W/ LOOP ELECTRODE EXCISION 08/17/2014 dr. temple COLPOSCOPY 05/13/2022 MOUTH SURGERY Family History Problem Relation Name Age of Onset No Known Problems Mother Osteoporosis Father Parkinsonism Mother's Sister Parkinsonism Maternal Grandmother Asthma Other Diabetes Other Hypertension Other Heart attack Other Social History Tobacco Use Smoking status: Every Day Packs/day: 0.50 Years: 2.00 Additional pack years: 0.00 Total pack years: 1.00 Types: Cigarettes Last attempt to quit: 03/30/2023 Years since quittin.1 Smokeless tobacco: Never Vaping Use Vaping Use: Every day Substances: Nicotine, THC, CBD, Flavoring Devices: Disposable Substance Use Topics Alcohol use: Not Currently Comment: RARE Drug use: Yes Types: Marijuana Comment: occassionally Physical Exam ED Triage Vitals [06/03/23 0437] Temperature Heart Rate Respirations BP 35.6 C (96 F) 86 18 (!) 123/95 Pulse Ox Temp Source Heart Rate Source Patient Position 95 % Temporal Monitor Sitting BP Location FiO2 (%) Left arm -- Physical Exam Vitals and nursing note reviewed. Constitutional: General: She is not in acute distress. Appearance: Normal appearance. She is normal weight. She is not ill-appearing, toxic-appearing or diaphoretic. HENT: Head: Normocephalic and atraumatic. Nose: Nose normal. No rhinorrhea. Neck: Comments: Trachea is midline Cardiovascular: Rate and Rhythm: Normal rate and regular rhythm. Pulses: Normal pulses. Heart sounds: No murmur heard. Pulmonary: Effort: Pulmonary effort is normal. Breath sounds: Normal breath sounds. No wheezing. Abdominal: General: Abdomen is flat. Bowel sounds are normal. There is no distension. Palpations: Abdomen is soft. Tenderness: There is no abdominal tenderness. Musculoskeletal: General: Normal range of motion. Cervical back: Normal range of motion. Skin: General: Skin is warm and dry. Findings: Lesion present. No rash. Comments: Patient has an ulcer that measures approximately 5 and half centimeters in the vertical axis and approximately 3 cm in the horizontal axis over the distal anterior left pretibial region. This is superior to the ankle mortise. There is surrounding chronic stasis changes with some erythema as well. This does extend into the dorsum of the foot. The leg is not hot to the touch. It is not cold to the touch. It is warm. There is no discharge. Neurological: General: No focal deficit present. Mental Status: She is alert and oriented to person, place, and time. Mental status is at baseline. Psychiatric: Mood and Affect: Mood normal. Behavior: Behavior normal. Thought Content: Thought content normal. Judgment: Judgment normal. ED Course & MDM Diagnoses as of 06/03/23 050 Cellulitis of left leg Medical Decision Making Patient presents secondary to an exacerbation of chronic pain to the affected left lower extremity with a noted chronic wound/ulcer. It is difficult to tell whether there is some component of cellulitis or whether the skin changes are chronic. Given the patient's history I feel appropriate treatment would be with antibiotics, pain medication, and follow-up with her established wound care physician. Her dressing was changed here by the nursing staff and bacitracin was applied. Instructed to limit activity as tolerated, follow-up with her established physician within 48 hours, and return to the ER at any time if worse. Given the patient's well appearance without fever I do not feel she needs further laboratory panels here in the emergency room. Once again this is a chronic and recurrent issue for the patient. Patient is in agreement with this plan and in agreement to return if worse. Procedure Procedures Juno Marquez DO 06/03/23503 documented in this encounter [facility] Work Phone: 06-03-2023 Physician Emergency department Note HPI Chief Complaint Patient presents with Leg Injury Pt comes in for left leg pain. Pt states that starting last wk she noticed that she was having pain and swelling in her left foot and leg. Pt states that over the last couple days it has gotten worse. Pt states that she has a wound that she has been dealing with for a long time. Patient presents to the emergency department secondary to a left lower extremity wound. The patient has a longstanding history going back several years of a nonhealing ulcer to the distal left pretibial region with surrounding cellulitis. She is under the care of Dr. Barbosa for this. She states she is keeping her appointments every few weeks. She states that over the past week she was ill with diarrhea which has since subsided but has not gone around to changing her lower extremity dressing. She feels the area surrounding is becoming more erythematous and painful and she presents now to the emergency room to be further evaluated. History provided by: Patient tool checker used: No Dominick Coma Scale Score: 15 Patient History Past Medical History: Diagnosis Date Anxiety Chlamydial infection, unspecified Chlamydia Elevated LFTs 05/25/2022 GERD (gastroesophageal reflux disease) Immunization not carried out because of patient refusal Influenza vaccination declined LGSIL on Pap smear of cervix 07/20/2022 Other conditions influencing health status History of Other specified postprocedural states History of Papanicolaou smear Prediabetes Raynaud's disease Past Surgical History: Procedure Laterality Date CERVICAL BIOPSY W/ LOOP ELECTRODE EXCISION 08/17/2014 dr. temple COLPOSCOPY 05/13/2022 MOUTH SURGERY Family History Problem Relation Name Age of Onset No Known Problems Mother Osteoporosis Father Parkinsonism Mother's Sister Parkinsonism Maternal Grandmother Asthma Other Diabetes Other Hypertension Other Heart attack Other Social History Tobacco Use Smoking status: Every Day Packs/day: 0.50 Years: 2.00 Additional pack years: 0.00 Total pack years: 1.00 Types: Cigarettes Last attempt to quit: 03/30/2023 Years since quittin.1 Smokeless tobacco: Never Vaping Use Vaping Use: Every day Substances: Nicotine, THC, CBD, Flavoring Devices: Disposable Substance Use Topics Alcohol use: Not Currently Comment: RARE Drug use: Yes Types: Marijuana Comment: occassionally Physical Exam ED Triage Vitals [06/03/23 0437] Temperature Heart Rate Respirations BP 35.6 C (96 F) 86 18 (!) 123/95 Pulse Ox Temp Source Heart Rate Source Patient Position 95 % Temporal Monitor Sitting BP Location FiO2 (%) Left arm -- Physical Exam Vitals and nursing note reviewed. Constitutional: General: She is not in acute distress. Appearance: Normal appearance. She is normal weight. She is not ill-appearing, toxic-appearing or diaphoretic. HENT: Head: Normocephalic and atraumatic. Nose: Nose normal. No rhinorrhea. Neck: Comments: Trachea is midline Cardiovascular: Rate and Rhythm: Normal rate and regular rhythm. Pulses: Normal pulses. Heart sounds: No murmur heard. Pulmonary: Effort: Pulmonary effort is normal. Breath sounds: Normal breath sounds. No wheezing. Abdominal: General: Abdomen is flat. Bowel sounds are normal. There is no distension. Palpations: Abdomen is soft. Tenderness: There is no abdominal tenderness. Musculoskeletal: General: Normal range of motion. Cervical back: Normal range of motion. Skin: General: Skin is warm and dry. Findings: Lesion present. No rash. Comments: Patient has an ulcer that measures approximately 5 and half centimeters in the vertical axis and approximately 3 cm in the horizontal axis over the distal anterior left pretibial region. This is superior to the ankle mortise. There is surrounding chronic stasis changes with some erythema as well. This does extend into the dorsum of the foot. The leg is not hot to the touch. It is not cold to the touch. It is warm. There is no discharge. Neurological: General: No focal deficit present. Mental Status: She is alert and oriented to person, place, and time. Mental status is at baseline. Psychiatric: Mood and Affect: Mood normal. Behavior: Behavior normal. Thought Content: Thought content normal. Judgment: Judgment normal. ED Course & MDM Diagnoses as of 06/03/23 0501 Cellulitis of left leg Medical Decision Making Patient presents secondary to an exacerbation of chronic pain to the affected left lower extremity with a noted chronic wound/ulcer. It is difficult to tell whether there is some component of cellulitis or whether the skin changes are chronic. Given the patient's history I feel appropriate treatment would be with antibiotics, pain medication, and follow-up with her established wound care physician. Her dressing was changed here by the nursing staff and bacitracin was applied. Instructed to limit activity as tolerated, follow-up with her established physician within 48 hours, and return to the ER at any time if worse. Given the patient's well appearance without fever I do not feel she needs further laboratory panels here in the emergency room. Once again this is a chronic and recurrent issue for the patient. Patient is in agreement with this plan and in agreement to return if worse. Procedure Procedures Juno Marquez DO 06/03/23 7031 [facility] Work Phone: 05-11-2023 History of Present illness Narrative History Of Present Illness Jayna Smith is a 38 y.o. female presenting for pulmonary hypertension follow up. Patient is NYHA Functional Class 3 and WHO Group 1. Originally referred from inpatient in 05/2023. Patient has only been seen in clinic virtually due to transportation issues. Last visit was virtually on 05/27/2024. PAH Treatment: Remodulin (06/11/2023) 31 ng/kg/min, 1.6 ml/hr, concentration 0.1 mg/ml Tadalafil (02/21/2024-02/27/2024) stopped due to headaches (04/15/2023 restart) Ambrisentan (05/06/2024) Infusion site: [facility], clean, dry and intact Treatment history: Orenitram (04/23/2024) (Now declining transition) Testing today includes: None Interval History Patient states she does not feel SOB any longer. Does endorse occasional SOB with stairs but overall much better. Denies further episodes of dizziness or lightheadedness. Baseline edema to L ankle. Taking 1 capsule imodium daily which controls diarrhea related to prostacyclin infusion. Has acute symptoms of cough, moist productive cough and fatigue. Denies fever or chills. Holding further increases until acute illness symptoms pass. Virtual or Telephone Consent An interactive audio and video telecommunication system which permits real time communications between the patient (at the originating site) and provider (at the distant site) was utilized to provide this telehealth service. Verbal consent was requested and obtained from Jayna Smith on this date, 09/22/2024 for a telehealth visit and the patient's location was confirmed at the time of the visit. Past Medical History Patient Active Problem List Diagnosis Abnormal uterine bleeding (AUB) BPPV (benign paroxysmal positional vertigo) Cervix dysplasia Chronic renal insufficiency, stage III (moderate) (Multi) Dysplasia of cervix, low grade ([place]ET[place] 1) Hypertension associated with diabetes ELIZABETH (generalized anxiety disorder) GERD (gastroesophageal reflux disease) Controlled type 2 diabetes mellitus with hyperglycemia, without long-term current use of insulin Hemiplegic migraine Hypertriglyceridemia Leg edema Lesion of left ovary Low serum HDL Motion sickness Ovarian cyst, complex Pain of left lower extremity Raynauds disease Sacroiliac joint dysfunction of left side Seasonal allergies Varicose veins of legs Wound of left ankle Amenorrhea Vaginal lesion Elevated red blood cell count Non-healing wound of lower extremity Non-healing wound of upper extremity Finger ulcer (Multi) Overweight (BMI 25.0-29.9) History of ovarian cyst Elevated ferritin Pulmonary hypertension (Multi) Severe tricuspid regurgitation by prior echocardiogram Non-pressure chronic ulcer of left lower leg with fat layer exposed (Multi) Cellulitis Cigarette nicotine dependence in remission Surgical History She has a past surgical history that includes Cervical biopsy w/ loop electrode excision (08/17/2014); Colposcopy (05/13/2022); Mouth surgery; Cardiac catheterization (N/A, 06/08/2023); Cardiac catheterization (N/A, 06/07/2023); and Cardiac catheterization (N/A, 06/07/2023). Social History She reports that she quit smoking about 17 months ago. Her smoking use included cigarettes. She started smoking about 3 years ago. She has a 1 pack-year smoking history. She has never used smokeless tobacco. She reports that she does not currently use alcohol. She reports current drug use. Drug: Marijuana. Family History Family History Problem Relation Name Age of Onset No Known Problems Mother Osteoporosis Father Parkinsonism Mother's Sister Parkinsonism Maternal Grandmother Asthma Other Diabetes Other Hypertension Other Heart attack Other Medications Current Outpatient Medications: acetaminophen (Tylenol) 500 mg tablet, take 1 tablet by mouth every 6 hours if needed for headache, Disp: 30 tablet, Rfl: 3 ambrisentan (Letairis) 5 mg tablet, Take 1 tablet (5 mg) by mouth once daily., Disp: , Rfl: ammonium lactate (Amlactin) 12 % cream, Apply topically if needed., Disp: , Rfl: digoxin (Lanoxin) 125 MCG tablet, Take 1 tablet (125 mcg) by mouth once daily., Disp: 90 tablet, Rfl: 11 fluticasone (Flonase) 50 mcg/actuation nasal spray, Administer 2 sprays into each nostril once daily as needed for rhinitis. Shake gently. Before first use, prime pump. After use, clean tip and replace cap., Disp: 16 g, Rfl: 6 loperamide (Imodium) 2 mg capsule, Take 1 capsule (2 mg) by mouth 4 times a day as needed for diarrhea., Disp: 30 capsule, Rfl: 11 loratadine (Claritin) 10 mg tablet, Take 1 tablet (10 mg) by mouth once daily., Disp: , Rfl: spironolactone (Aldactone) 25 mg tablet, Take 1 tablet (25 mg) by mouth once daily., Disp: 30 tablet, Rfl: 11 tadalafil (Cialis) 20 mg tablet, Take 2 tablets (40 mg) by mouth once daily., Disp: 60 tablet, Rfl: 11 treprostinil 10 mg/mL solution 10 mg/mL, empty bag/syringe unknown 1 each, Inject 9 ng/kg/min under the skin continuously., Disp: , Rfl: Allergies Amlodipine Review of Systems Constitutional: Positive for activity change. Negative for appetite change, chills, fatigue, fever and unexpected weight change. HENT: Negative. Eyes: Negative. Respiratory: Negative for cough, chest tightness, shortness of breath and wheezing. Cardiovascular: Positive for palpitations. Negative for chest pain and leg swelling. Gastrointestinal: Negative. Negative for abdominal distention, abdominal pain, constipation, diarrhea, nausea and vomiting. Endocrine: Negative. Genitourinary: Negative. Musculoskeletal: Negative. Skin: Negative. Allergic/Immunologic: Negative. Neurological: Negative for dizziness, syncope and light-headedness. Hematological: Negative. Psychiatric/Behavioral: Negative. Last Recorded Vitals There were no vitals taken for this visit. Virtual visit. Appears well, no distress during virtual visit. Chronically poor dentition.Has stuffy nose, cough. Relevant Results 6MWT (09/18/2024) SP02-96%-78% on RA (patient with Hx Raynauds) HR-59-85 STEVAN-0-0 Actual Meters- 381m Echo (09/18/2024) PHYSICIAN INTERPRETATION: Left Ventricle: The left ventricular systolic function is normal with a Garza's biplane calculated ejection fraction of 70%. There is mild eccentric left ventricular hypertrophy. There are no regional wall motion abnormalities. The left ventricular cavity size is normal. There is mild increased septal and normal posterior left ventricular wall thickness. The interventricular septum is flattened in systole and diastole, consistent with right ventricular pressure and volume overload. Left ventricular diastolic filling was indeterminate. Left Atrium: The left atrial size is normal. Right Ventricle: The right ventricle is severely enlarged. There is normal right ventricular global systolic function. Right Atrium: The right atrial size is severely dilated. Aortic Valve: The aortic valve is trileaflet. The aortic valve area by VTI is 2.54 cm with a peak velocity of 1.55 m/s. The peak and mean gradients are 9 mmHg and 5 mmHg, respectively, with a dimensionless index of 0.73. There is no evidence of aortic valve regurgitation. Mitral Valve: The mitral valve is mildly thickened. There is trace mitral valve regurgitation. The E Vmax is 0.93 m/s. Tricuspid Valve: The tricuspid valve is structurally normal. There is mild to moderate tricuspid regurgitation. The Doppler estimated right ventricular systolic pressure (RVSP) is severely elevated at 84 mmHg. Pulmonic Valve: The pulmonic valve is structurally normal. There is mild pulmonic valve regurgitation. Pericardium: Trivial to small pericardial effusion. Aorta: The aortic root is normal. Systemic Veins: The inferior vena cava appears dilated, with IVC inspiratory collapse greater than 50%. CONCLUSIONS: 1. The left ventricular systolic function is normal with a Garza's biplane calculated ejection fraction of 70%. 2. Left ventricular diastolic filling was indeterminate. 3. Severely enlarged right ventricle. 4. Right ventricular global systolic function is mildy reduce. 5. The right atrial size is severely dilated. 6. Right ventricular volume and pressure overload. 7. Mild to moderate tricuspid regurgitation. 8. The Doppler estimated RVSP is severely elevated at 84 mmHg. 6MWT (04/21/2024) BB84-70-82% on RA HR-72-105 STEVAN-n/a Actual Meters- 548 6MWT (02/12/2024) SP02- 95-89 % RA HR-65-94 STEVAN-0-4 Actual Meters- 594 m Echo (02/05/2024) [facility] Left Ventricle: Left ventricular ejection fraction is normal, by visual estimate at 60%. There are no regional wall motion abnormalities. The left ventricular cavity size is decreased. There is moderately increased septal and normal posterior left ventricular wall thickness. There is left ventricular concentric remodeling. Spectral Doppler shows a normal pattern of left ventricular diastolic filling. Left Atrium: The left atrium is normal in size. A bubble study using agitated saline was not performed. Right Ventricle: The right ventricle is severely enlarged. There is severely reduced right ventricular systolic function. Right Atrium: The right atrium is moderately to severely dilated. Aortic Valve: The aortic valve is trileaflet. The aortic valve dimensionless index is 0.84. There is no evidence of aortic valve regurgitation. The peak instantaneous gradient of the aortic valve is 6 mmHg. The mean gradient of the aortic valve is 3 mmHg. Mitral Valve: The mitral valve is normal in structure. There is no evidence of mitral valve regurgitation. Tricuspid Valve: The tricuspid valve is structurally normal. There is severe tricuspid regurgitation. The Doppler estimated RVSP is severely elevated at 144.1 mmHg. Pulmonic Valve: The pulmonic valve is structurally normal. There is moderate to severe pulmonic valve regurgitation. Pericardium: Trivial pericardial effusion. Aorta: The aortic root is normal. Pulmonary Artery: The Doppler estimated pulmonary artery diastolic pressure is 18.7 mmHg. CONCLUSIONS: 1. Left ventricular ejection fraction is normal, by visual estimate at 60%. 2. Left ventricular cavity size is decreased. 3. There is severely reduced right ventricular systolic function. 4. Severely enlarged right ventricle. 5. The right atrium is moderately to severely dilated. 6. Severe tricuspid regurgitation. 7. Severely elevated right ventricular systolic pressure. 8. Moderate to severe pulmonic valve regurgitation. 9. There is moderately increased septal thickness. NM lung perfusion scan (06/07/2023) IMPRESSION: There are nonspecific non-segmental/subsegmental perfusion defects and marked heterogeneity in both lungs corresponding to intermediate probability for pulmonary embolism. Additionally, chronic PE versus multifocal airway disease not entirely excluded. LHC/RHC (06/08/2023) PAP: 91/41(59) PWP: 22 CO/CI: 3.6/1.8 CONCLUSIONS: 1. Normal coronary arteries in a right dominant system. 2. Normal left ventricular systolic function. 3. Severe pulmonary hypertension. CT Chest for PE (06/07/2023) IMPRESSION: 1. No evidence of acute pulmonary embolism. 2. Findings compatible with history of pulmonary hypertension and elevated right-sided heart pressures including dilated main pulmonary artery, asymmetric enlargement of the right atrium and ventricle, and reflux of contrast into the IVC. 3. Focal area of tree-in-bud nodularity in the right lower lobe is consistent with an infectious or inflammatory bronchiolitis. 4. Diffuse mosaic attenuation which is most likely on the basis of small vessels disease given known pulmonary hypertension. Underlying small airways/reactive airways disease is a differential consideration in the appropriate clinical setting 5. Please see separately dictated concurrent CT abdomen pelvis. Echo (06/06/2023) [facility] PHYSICIAN INTERPRETATION: Left Ventricle: Left ventricular systolic function is normal, with an estimated ejection fraction of 65%. There are no regional wall motion abnormalities. The left ventricular cavity size is normal. There is mild left ventricular hypertrophy. Spectral Doppler shows an impaired relaxation pattern of left ventricular diastolic filling. Left Atrium: The left atrium is normal in size. Right Ventricle: The right ventricle is severely enlarged. There is severely reduced right ventricular systolic function. Right Atrium: The right atrium is severely dilated. Aortic Valve: The aortic valve is trileaflet. There is no evidence of aortic valve regurgitation. The peak instantaneous gradient of the aortic valve is 3.4 mmHg. The mean gradient of the aortic valve is 2.0 mmHg. Mitral Valve: The mitral valve is normal in structure. There is no evidence of mitral valve regurgitation. Tricuspid Valve: The tricuspid valve is structurally normal. There is severe tricuspid regurgitation. Pulmonic Valve: The pulmonic valve is structurally normal. There is moderate pulmonic valve regurgitation. Pericardium: There is a small pericardial effusion. Aorta: The aortic root is normal. Systemic Veins: The inferior vena cava appears dilated. There is less than 50% IVC collapse with inspiration. CONCLUSIONS: 1. Left ventricular systolic function is normal with a 65% estimated ejection fraction. 2. Spectral Doppler shows an impaired relaxation pattern of left ventricular diastolic filling. 3. D-shaped septum in systole and diastole consistent with right ventricular pressure and volume overload. 4. Severely enlarged right ventricle. 5. There is severely reduced right ventricular systolic function. 6. The right atrium is severely dilated. 7. Severe tricuspid regurgitation. 8. Moderate pulmonic valve regurgitation. 9. Calculated pulmonary artery systolic pressure is 97 mmHg, consistent with pulmonary hypertension. 10. Ascites is incidentally noted. Recommend dedicated imaging. 11. Small pericardial effusion with no evidence of hemodynamic compromise. 12. Overall findings appear consistent with significant pulmonary hypertension, with signs of right ventricular dysfunction. 13. Findings appear similar to prior echocardiogram dated 04/09/2023. Echo (04/09/2023) [facility] PHYSICIAN INTERPRETATION: Left Ventricle: Left ventricular systolic function is normal, with an estimated ejection fraction of 60%. There are no regional wall motion abnormalities. The left ventricular cavity size is normal. There is moderate concentric left ventricular hypertrophy. Spectral Doppler shows an impaired relaxation pattern of left ventricular diastolic filling. Left Atrium: The left atrium is normal in size. Right Ventricle: The right ventricle is moderately enlarged. There is reduced right ventricular systolic function. Right Atrium: The right atrium is severely dilated. Aortic Valve: The aortic valve is trileaflet. There is no evidence of aortic valve regurgitation. The peak instantaneous gradient of the aortic valve is 3.9 mmHg. The mean gradient of the aortic valve is 2.0 mmHg. Mitral Valve: The mitral valve is normal in structure. There is no evidence of mitral valve regurgitation. Tricuspid Valve: The tricuspid valve is structurally normal. There is severe tricuspid regurgitation. RV-RA gradient 102mm Hg. Pulmonic Valve: The pulmonic valve is not well visualized. There is mild pulmonic valve regurgitation. Pericardium: There is a small pericardial effusion. Aorta: The aortic root is normal. Systemic Veins: The inferior vena cava appears dilated. There is less than 50% IVC collapse with inspiration. CONCLUSIONS: 1. Left ventricular systolic function is normal with a 60% estimated ejection fraction. 2. Spectral Doppler shows an impaired relaxation pattern of left ventricular diastolic filling. 3. There is moderate concentric left ventricular hypertrophy. 4. Enlarged right ventricle with reduced systolic function. 5. D-shaped septum in systole and diastole, consistent with right ventricular pressure and volume overload. 6. Severe tricuspid regurgitation. 7. The right atrium is severely dilated. 8. Calculated right ventricular systolic pressure is 117mm Hg. 9. Small pericardial effusion with no echocardiographic evidence of tamponade. 10. Consult team informed of findings. 11. Findings are consistent with severe Pulmonary Hypertension; presence of pericardial effusion and RV systolic dysfunction are high-risk markers. Assessment/Plan 1) PAH associated with CREST. Failure to achieve goal of therapy with poor prognosis. Plan 1) Continue uptitration remodulin as tolerated. Patient now with no significant side effects. 2) Will continue tadalafil, ambrisentan and IV remodulin, imodium. 3) Cath to re-address pressures and ? Of sotatercept. 4) Follow up 3 months with cath data. 15 minutes discussing echo, cath, uptitration and follow up after cath to re-evaluate need for additional meds which I suspect will be appropriate given echo appearance. documented in this encounter [facility] Work Phone: 05-01-2023 History of Present illness Narrative Jayna Smith is a 37 y.o. year old female patient. PCP = Rajendra Foley PA-C Chief Complaint Patient presents with Results Patient is here to review ultrasound results. HPI Presents review recent pelvic ultrasound regarding left ovarian cyst. She had a pelvic ultrasound in October 2022 as well as in December 2021 regarding the left ovarian cyst. Her most recent pelvic ultrasound was performed on April 24, 2023. She voices no complaints and is doing well. OB History No obstetric history on file. Past Medical History: Diagnosis Date Anxiety Chlamydial infection, unspecified Chlamydia Elevated LFTs 05/25/2022 GERD (gastroesophageal reflux disease) Immunization not carried out because of patient refusal Influenza vaccination declined LGSIL on Pap smear of cervix 07/20/2022 Other conditions influencing health status History of Other specified postprocedural states History of Papanicolaou smear Prediabetes Raynaud's disease Past Surgical History: Procedure Laterality Date CERVICAL BIOPSY W/ LOOP ELECTRODE EXCISION 08/17/2014 dr. temple COLPOSCOPY 05/13/2022 MOUTH SURGERY Review of Systems: Constitutional: No fever or chills Respiratory: No shortness of breath, or cough Cardiovascular: No chest pain or syncope Breasts: No breast pain, no masses, no nipple discharge Gastrointestinal: No nausea, vomiting, or diarrhea, no abdominal pain Genitourinary: No dysuria or frequency Gynecology: Negative except as noted in history of present illness All other: All other systems reviewed and negative for complaint Medication Documentation Review Audit Reviewed by Rashawn Carter MD (Physician) on 05/01/23 at 0919 Medication Order Taking? Sig Documenting Provider Last Dose Status acetaminophen (Tylenol) 325 mg tablet [id number] Take 2 tablets (650 mg) by mouth every 6 hours if needed for mild pain (1 - 3). Historical Provider, Active ascorbic acid (Vitamin C) 500 mg tablet [id number] No Take 1 tablet (500 mg) by mouth once daily. Violeta Reddy MD Past Week Active busPIRone (Buspar) 5 mg tablet [id number] No Take 1 tablet (5 mg) by mouth 3 times a day as needed (anxiety). Violeta Reddy MD Past Week Active cholecalciferol (Vitamin D3) 25 MCG (1000 UT) tablet [id number] No Take 1 tablet (1,000 Units) by mouth once daily. Violeta Reddy MD Past Week Active lisinopril 2.5 mg tablet [id number] Take 1 tablet (2.5 mg) by mouth once daily. Violeta Reddy MD Active loratadine (Claritin) 10 mg tablet [id number] No Take 1 tablet (10 mg) by mouth once daily as needed for allergies. Violeta Reddy MD Past Month Active omeprazole (PriLOSEC) [address] capsule [id number] No Take 1 capsule (20 mg) by mouth once daily as needed (acid reflex). Violeta Reddy MD Past Week Active pantoprazole (ProtoNix) 20 mg EC tablet [id number] Take 1 tablet (20 mg) by mouth once daily in the morning. Take before meals. Do not crush, chew, or split. Violeta Reddy MD Active polyethylene glycol (Glycolax, Miralax) 17 gram packet [id number] Take 17 g by mouth once daily. Violeta Reddy MD Active zinc gluconate 50 mg tablet [id number] No Take 1 tablet (50 mg of elemental zinc) by mouth once daily. Violeta Reddy MD Past Week Active BP 120/68 Ht 1.727 m (5' 8) Wt 82.3 kg (181 lb 6.4 oz) LMP (LMP Unknown) BMI 27.58 kg/m PHYSICAL EXAMINATION: General: No acute distress Eye: Intraocular movements are intact HEENT: Normocephalic Respiratory: Respirations are nonlabored Gastrointestinal: Nondistended Musculoskeletal: Normal range of motion Neurologic: Alert and oriented x3 Psychiatric: Cooperative, appropriate mood and affect. Interpreted By: Greyson Phillips, STUDY: US PELVIS TRANSABDOMINAL WITH TRANSVAGINAL; 04/24/2023 10:27 am INDICATION: Signs/Symptoms: left ovarian cyst Z87.42: History of ovarian cyst. COMPARISON: Pelvic ultrasound dated 10/26/2022. ACCESSION NUMBER(S): [id number] ORDERING CLINICIAN: RASHAWN CARTER TECHNIQUE: Multiple multiplanar static martell scale, color and spectral waveform sonographic images of the pelvis were obtained. Transabdominal and endovaginal ultrasound was performed. FINDINGS: UTERUS: The uterus measures 4.0 cm x 3.2 cm x 6.2 cm. The uterine myometrium appears normal. ENDOMETRIUM: The endometrium measures a thickness of 0.4 cm, which is normal. RIGHT ADNEXA: The right ovary measures 2.0 cm x 2.2 cm x 3.0 cm and demonstrates normal flow. No gross right adnexal masses are seen, no hydrosalpinx. LEFT ADNEXA: The left ovary measures 7.6 cm x 6.3 cm x 9.4 cm and demonstrates normal flow. There is a 7.9 x 7.1 x 6.3 cm anechoic, simple appearing cystic lesion associated with the left ovary not appreciably changed in size or imaging appearance from comparison examination. CUL DE SAC: Free fluid is evident within the pelvis. IMPRESSION: 1. Similar sonographic appearance of large simple appearing cystic lesion associated with the left ovary/adnexal region. MACRO: None Signed by: Greyson Phillips 04/25/2023 9:59 AM Dictation workstation: [id number] Orders Placed This Encounter Procedures US PELVIS TRANSABDOMINAL WITH TRANSVAGINAL Standing Status: Future Standing Expiration Date: 07/17/2024 Order Specific Question: Is the patient ? Answer: No Order Specific Question: Reason for exam: Answer: left ovarian cyst Order Specific Question: Radiologist to Determine Optimal Study Answer: Yes Order Specific Question: Release result to [facility] Answer: Immediate [1] Order Specific Question: Is this exam part of a Research Study? If Yes, link this order to the research study Answer: No Problem List Items Addressed This Visit None Visit Diagnoses Left ovarian cyst - Primary Relevant Orders US PELVIS TRANSABDOMINAL WITH TRANSVAGINAL Provider Impression: 1. Left ovarian cyst Personally reviewed recent pelvic ultrasound which shows a stable simple left ovarian cyst measuring 7.9 cm. The cyst has been stable in size since her previous scans. Recommend follow-up pelvic ultrasound in 1 year. Patient to return in 2 months for annual exam and Pap. documented in this encounter [facility] Work Phone: 04-26-2023 Hospital Discharge instructions Ellen Bach PA-C - 04/26/2023 4:44 PM EST Follow up with Dr. Barbosa as planned tomorrow. Return for any new or worsening symptoms documented in this encounter [facility] Work Phone: 04-26-2023 Emergency department Note Patient is a 37 year old female who presents to the ED with a chief complaint of a left leg wound. Patient reports that she has had a chronic left leg wound for approximately 2 years. She recently was admitted to the hospital on April 06 in which during her hospital stay she had a debridement performed by clinical psychology professor, Dr. Barbosa. During debridement an application of an advanced wound healing product applied. Patient reports that she is scheduled to see Dr. Bustos in tomorrow. Patient states that she has noticed a very foul odor coming from the wound in which she first noticed Sunday and the odor continues to worsen. Patient feels that she may have had a fever as she has woken up multiple times profusely sweating in her sleep. She denies any recorded temperature. No nausea, vomiting, chest pain, shortness of breath, or abdominal pain. She has not taken the dressing off of her wound since the debridement. Review of Systems Constitutional: Negative for chills and fever. HENT: Negative for ear pain and sore throat. Eyes: Negative for pain and visual disturbance. Respiratory: Negative for cough and shortness of breath. Cardiovascular: Negative for chest pain and palpitations. Gastrointestinal: Negative for abdominal pain and vomiting. Genitourinary: Negative for dysuria and hematuria. Musculoskeletal: Negative for arthralgias and back pain. Wound to left lower extremity Skin: Negative for color change and rash. Neurological: Negative for seizures and syncope. All other systems reviewed and are negative. Physical Exam Vitals and nursing note reviewed. Constitutional: General: She is not in acute distress. Appearance: Normal appearance. She is well-developed. HENT: Head: Normocephalic and atraumatic. Eyes: Extraocular Movements: Extraocular movements intact. Conjunctiva/sclera: Conjunctivae normal. Pupils: Pupils are equal, round, and reactive to light. Cardiovascular: Rate and Rhythm: Normal rate and regular rhythm. Heart sounds: No murmur heard. Pulmonary: Effort: Pulmonary effort is normal. No respiratory distress. Breath sounds: Normal breath sounds. No stridor. No wheezing or rhonchi. Abdominal: Palpations: Abdomen is soft. Tenderness: There is no abdominal tenderness. Musculoskeletal: General: Normal range of motion. Cervical back: Normal range of motion and neck supple. No rigidity. Comments: Left lower extremity there is a large wound to distal 1/3/ doherty with advanced wound healing material sutured to the wound area. There is surrounding erythema and also erythema noted to the dorsum of the left foot. Edema noted. Distal pulses are strong. Capillary refill less than 2 seconds Skin: General: Skin is warm and dry. Capillary Refill: Capillary refill takes less than 2 seconds. Neurological: Mental Status: She is alert. Psychiatric: Mood and Affect: Mood normal. Labs Reviewed SEDIMENTATION RATE, AUTOMATED - Abnormal Result Value Sedimentation Rate 22 (*) CBC WITH AUTO DIFFERENTIAL - Abnormal WBC 4.9 nRBC 0.0 RBC 5.56 (*) Hemoglobin 15.5 Hematocrit 49.5 (*) MCV 89 MCH 27.9 MCHC 31.3 (*) RDW 15.6 (*) Platelets 126 (*) Neutrophils % 61.1 Immature Granulocytes %, Automated 0.2 Lymphocytes % 24.2 Monocytes % 10.4 Eosinophils % 3.3 Basophils % 0.8 Neutrophils Absolute 3.00 Immature Granulocytes Absolute, Automated 0.01 Lymphocytes Absolute 1.19 (*) Monocytes Absolute 0.51 Eosinophils Absolute 0.16 Basophils Absolute 0.04 COMPREHENSIVE METABOLIC PANEL - Abnormal Glucose 78 Sodium 140 Potassium 4.1 Chloride 106 Bicarbonate 25 Anion Gap 13 Urea Nitrogen 12 Creatinine 1.01 eGFR 73 Calcium 9.5 Albumin 4.0 Alkaline Phosphatase 275 (*) Total Protein 7.3 AST 17 Bilirubin, Total 1.4 (*) ALT 17 C-REACTIVE PROTEIN - Normal C-Reactive Protein 0.50 LACTATE - Normal Lactate 0.8 Narrative: Venipuncture immediately after or during the administration of Metamizole may lead to falsely low results. Testing should be performed immediately prior to Metamizole dosing. BLOOD CULTURE BLOOD CULTURE XR tibia fibula left 2 views Final Result Intact left tibia and fibula. Signed by: Manjinder Stuart 04/26/2023 2:36 PM Dictation workstation: [id number] Procedures Medical Decision Making Patient is a 37-year-old female who presents to the emergency department with a chronic left leg wound that was recently debrided by podiatry in the OR and had an advance wound healing product applied. Patient presented today as she reports a very foul odor coming from her wound. Patient is scheduled to see podiatry tomorrow. On physical examination the wound is malodorous. Patient's laboratory studies are unremarkable. She was given a dose of Zosyn and vancomycin initially prior to laboratory studies resulting. I did discuss the patient's presentation including the foul odor and lab work with clinical psychology professor, Dr. Bustos on. She was also sent an image via [employer] chat. She states that the leg looks good. She also reports that the grafts can be malodorous. Patient has a scheduled appointment tomorrow in office and Dr. Bustos and states that she will see the patient tomorrow in office as planned. She does not recommend outpatient antibiotics at this time and we will reevaluate patient's lower extremity tomorrow. Discussed with patient who feel comfortable with plan of discharge DDX includes but not limited to chronic wound, infected wound, ulcer, abscess, cellulitis Amount and/or Complexity of Data Reviewed Labs: ordered. Decision-making details documented in ED Course. Diagnoses as of 04/26/23 1659 Leg wound, left, subsequent encounter Ellen Bach PA-C 04/26/23 1659 documented in this encounter [facility] Work Phone: 04-26-2023 Physician Emergency department Note Patient is a 37 year old female who presents to the ED with a chief complaint of a left leg wound. Patient reports that she has had a chronic left leg wound for approximately 2 years. She recently was admitted to the hospital on April 06 in which during her hospital stay she had a debridement performed by clinical psychology professor, Dr. Barbosa. During debridement an application of an advanced wound healing product applied. Patient reports that she is scheduled to see Dr. Bustos in tomorrow. Patient states that she has noticed a very foul odor coming from the wound in which she first noticed Sunday and the odor continues to worsen. Patient feels that she may have had a fever as she has woken up multiple times profusely sweating in her sleep. She denies any recorded temperature. No nausea, vomiting, chest pain, shortness of breath, or abdominal pain. She has not taken the dressing off of her wound since the debridement. Review of Systems Constitutional: Negative for chills and fever. HENT: Negative for ear pain and sore throat. Eyes: Negative for pain and visual disturbance. Respiratory: Negative for cough and shortness of breath. Cardiovascular: Negative for chest pain and palpitations. Gastrointestinal: Negative for abdominal pain and vomiting. Genitourinary: Negative for dysuria and hematuria. Musculoskeletal: Negative for arthralgias and back pain. Wound to left lower extremity Skin: Negative for color change and rash. Neurological: Negative for seizures and syncope. All other systems reviewed and are negative. Physical Exam Vitals and nursing note reviewed. Constitutional: General: She is not in acute distress. Appearance: Normal appearance. She is well-developed. HENT: Head: Normocephalic and atraumatic. Eyes: Extraocular Movements: Extraocular movements intact. Conjunctiva/sclera: Conjunctivae normal. Pupils: Pupils are equal, round, and reactive to light. Cardiovascular: Rate and Rhythm: Normal rate and regular rhythm. Heart sounds: No murmur heard. Pulmonary: Effort: Pulmonary effort is normal. No respiratory distress. Breath sounds: Normal breath sounds. No stridor. No wheezing or rhonchi. Abdominal: Palpations: Abdomen is soft. Tenderness: There is no abdominal tenderness. Musculoskeletal: General: Normal range of motion. Cervical back: Normal range of motion and neck supple. No rigidity. Comments: Left lower extremity there is a large wound to distal 1/3/ doherty with advanced wound healing material sutured to the wound area. There is surrounding erythema and also erythema noted to the dorsum of the left foot. Edema noted. Distal pulses are strong. Capillary refill less than 2 seconds Skin: General: Skin is warm and dry. Capillary Refill: Capillary refill takes less than 2 seconds. Neurological: Mental Status: She is alert. Psychiatric: Mood and Affect: Mood normal. Labs Reviewed SEDIMENTATION RATE, AUTOMATED - Abnormal Result Value Sedimentation Rate 22 (*) CBC WITH AUTO DIFFERENTIAL - Abnormal WBC 4.9 nRBC 0.0 RBC 5.56 (*) Hemoglobin 15.5 Hematocrit 49.5 (*) MCV 89 MCH 27.9 MCHC 31.3 (*) RDW 15.6 (*) Platelets 126 (*) Neutrophils % 61.1 Immature Granulocytes %, Automated 0.2 Lymphocytes % 24.2 Monocytes % 10.4 Eosinophils % 3.3 Basophils % 0.8 Neutrophils Absolute 3.00 Immature Granulocytes Absolute, Automated 0.01 Lymphocytes Absolute 1.19 (*) Monocytes Absolute 0.51 Eosinophils Absolute 0.16 Basophils Absolute 0.04 COMPREHENSIVE METABOLIC PANEL - Abnormal Glucose 78 Sodium 140 Potassium 4.1 Chloride 106 Bicarbonate 25 Anion Gap 13 Urea Nitrogen 12 Creatinine 1.01 eGFR 73 Calcium 9.5 Albumin 4.0 Alkaline Phosphatase 275 (*) Total Protein 7.3 AST 17 Bilirubin, Total 1.4 (*) ALT 17 C-REACTIVE PROTEIN - Normal C-Reactive Protein 0.50 LACTATE - Normal Lactate 0.8 Narrative: Venipuncture immediately after or during the administration of Metamizole may lead to falsely low results. Testing should be performed immediately prior to Metamizole dosing. BLOOD CULTURE BLOOD CULTURE XR tibia fibula left 2 views Final Result Intact left tibia and fibula. Signed by: Manjinder Stuart 04/26/2023 2:36 PM Dictation workstation: [id number] Procedures Medical Decision Making Patient is a 37-year-old female who presents to the emergency department with a chronic left leg wound that was recently debrided by podiatry in the OR and had an advance wound healing product applied. Patient presented today as she reports a very foul odor coming from her wound. Patient is scheduled to see podiatry tomorrow. On physical examination the wound is malodorous. Patient's laboratory studies are unremarkable. She was given a dose of Zosyn and vancomycin initially prior to laboratory studies resulting. I did discuss the patient's presentation including the foul odor and lab work with clinical psychology professor, Dr. Bustos on. She was also sent an image via [employer] chat. She states that the leg looks good. She also reports that the grafts can be malodorous. Patient has a scheduled appointment tomorrow in office and Dr. Fasciano and states that she will see the patient tomorrow in office as planned. She does not recommend outpatient antibiotics at this time and we will reevaluate patient's lower extremity tomorrow. Discussed with patient who feel comfortable with plan of discharge DDX includes but not limited to chronic wound, infected wound, ulcer, abscess, cellulitis Amount and/or Complexity of Data Reviewed Labs: ordered. Decision-making details documented in ED Course. Diagnoses as of 04/26/23 1659 Leg wound, left, subsequent encounter Ellen Bach PA-C 04/26/23 1659 [facility] Work Phone: 04-19-2023 Miscellaneous Notes Date: 04/19/2023 OR Location: [facility] OR Name: Jayna Smith, : 1985, Age: 37 y.o., , Sex: female Diagnosis Pre-op Diagnosis * 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) [L97.922] Post-op Diagnosis * 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) [L97.922] Procedures left leg ulcer debridement, skin biopsy, and application of advanced wound healing product 63702 - AK PUNCH BIOPSY SKIN SINGLE LESION AK BIBIANA SKN SUB GRFT T/A/L AREA/100SQ CM /<1ST 25 [63312] AK DEBRIDEMENT SUBCUTANEOUS TISSUE 1ST 20 SQ CM/< [44896] Surgeons * Felicia Barbosa - Primary Resident/Fellow/Other Para Operator: Surgeon(s) and Role: Procedure Summary Anesthesia: Monitor Anesthesia Care ASA: III Anesthesia Staff: No anesthesia staff entered. Estimated Blood Loss: 20 mL Intra-op Medications: Administrations occurring from 1005 to 1055 on 04/19/23: Medication Name Total Dose BUPivacaine HCl (Marcaine) 0.5 % (5 mg/mL) injection 10 mL lidocaine (Xylocaine) 10 mg/mL (1 %) injection 10 mL Anesthesia Record Intraprocedure I/O Totals None Specimen: ID Type Source Tests Collected by Time 1 : Punch Biopsy Left Leg Wound Border Tissue SKIN PUNCH BIOPSY SURGICAL PATHOLOGY EXAM Felicia M Fascione, DPM 04/19/2023 1017 A : Left Leg Post Irrigation Wound Culture Tissue SOFT TISSUE RESECTION AFB CULTURE/SMEAR, FUNGAL CULTURE/SMEAR, TISSUE/WOUND CULTURE/SMEAR Felicia Barbosa DPM 04/19/2023 1014 Staff: Call Or Contact Centre Team Leader: Irene Bowers RN; Anh Gallo RN Scrub Person: Sharlene Kohler RN; Corinna Draper Findings: hemostasis controlled. See detailed operation report Complications: None; patient tolerated the procedure well. Disposition: PACU - hemodynamically stable. Condition: stable Specimens Collected: ID Type Source Tests Collected by Time 1 : Punch Biopsy Left Leg Wound Border Tissue SKIN PUNCH BIOPSY SURGICAL PATHOLOGY EXAM Felicia Barbosa DPM 04/19/2023 1017 A : Left Leg Post Irrigation Wound Culture Tissue SOFT TISSUE RESECTION AFB CULTURE/SMEAR, FUNGAL CULTURE/SMEAR, TISSUE/WOUND CULTURE/SMEAR Felicia Barbosa DPM 04/19/2023 1014 Attending Attestation: I was present and scrubbed for the entire procedure. Felicia Barbosa No outpatient medications have been marked as taking for the 04/19/23 encounter (Hospital Encounter). NPO Instructions: Nothing to eat or drink after midnight Additional Instructions: Will need skidder driver home, arrive at 830 am on 2nd floor at hospital on apr 19 documented in this encounter [facility] Work Phone: 04-19-2023 Note Formatting of this n ote is different from the original. Date: 04/19/2023 OR Location: [facility] OR Name: Jayna Smith, : 1985, Age: 37 y.o., , Sex: female Diagnosis Pre-op Diagnosis * 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) [L97.922] Post-op Diagnosis * 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) [L97.922] Procedures left leg ulcer debridement, skin biopsy, and application of advanced wound healing product 42365 - AK PUNCH BIOPSY SKIN SINGLE LESION AK BIBIANA SKN SUB GRFT T/A/L AREA/100SQ CM /< 25 [78013] AK DEBRIDEMENT SUBCUTANEOUS TISSUE 1ST 20 SQ CM/< [31535] Surgeons * Felicia Barbosa - Primary Resident/Fellow/Other Para Operator: Surgeon(s) and Role: Procedure Summary Anesthesia: Monitor Anesthesia Care ASA: III Anesthesia Staff: No anesthesia staff entered. Estimated Blood Loss: 20 mL Intra-op Medications: Administrations occurring from 1005 to 1055 on 04/19/23: Medication Name Total Dose BUPivacaine HCl (Marcaine) 0.5 % (5 mg/mL) injection 10 mL lidocaine (Xylocaine) 10 mg/mL (1 %) injection 10 mL Anesthesia Record Intraprocedure I/O Totals None Specimen: ID Type Source Tests Collected by Time 1 : Punch Biopsy Left Leg Wound Border Tissue SKIN PUNCH BIOPSY SURGICAL PATHOLOGY EXAM Felicia Barbosa DPM 04/19/2023 1017 A : Left Leg Post Irrigation Wound Culture Tissue SOFT TISSUE RESECTION AFB CULTURE/SMEAR, FUNGAL CULTURE/SMEAR, TISSUE/WOUND CULTURE/SMEAR Felicia Barbosa DPM 04/19/2023 1014 Staff: Call Or Contact Centre Team Leader: Irene Bowers RN; Anh Gallo RN Scrub Person: Sharlene Kohler RN; Corinna Draper Findings: hemostasis controlled. See detailed operation report Complications: None; patient tolerated the procedure well. Disposition: PACU - hemodynamically stable. Condition: stable Specimens Collected: ID Type Source Tests Collected by Time 1 : Punch Biopsy Left Leg Wound Border Tissue SKIN PUNCH BIOPSY SURGICAL PATHOLOGY EXAM Felicia Barbosa DPM 04/19/2023 1017 A : Left Leg Post Irrigation Wound Culture Tissue SOFT TISSUE RESECTION AFB CULTURE/SMEAR, FUNGAL CULTURE/SMEAR, TISSUE/WOUND CULTURE/SMEAR Felicia Barbosa DPM 04/19/2023 1014 Attending Attestation: I was present and scrubbed for the entire procedure. Felicia Barbosa [facility] Work Phone: 04-19-2023 Attending History and physical note No h and p changes Source Note - Kylee Yap, YOUNG-CUSTOMER ENGINEER - 04/06/2023 1:41 PM EST History Of Present Illness Jayna Smith is a 37 y.o. female presenting with left ankle and right index and middle finger wounds. She has a PMHX HTN, DM type II, raynauds, chronic leg wounds. She told the ED that her leg wound was healing and that her dog jumped up on her and scratched her and opened it up. To me she was recently at her PCP office and was told to come to the ED due to it looking worse and they felt that it needed IV antibiotics. She was placed on Augmentin yesterday at PCP office but didn't take it yet. She states that this started about 2 years ago due to having poison param and they getting a tattoo over the area. She was seen at [facility] and didn't like how they were treating her leg so she stopped going to them and has not had further treatment since. She is able to ambulate and stand on her leg but only for a few min at a time. She currently denies any fever, chills, nausea, vomiting. WBC 5.8, lactate 0.8, CRP 0.99, sed rate 27 Past Medical History Past Medical History: Diagnosis Date Chlamydial infection, unspecified Chlamydia Elevated LFTs 05/25/2022 Immunization not carried out because of patient refusal Influenza vaccination declined LGSIL on Pap smear of cervix 07/20/2022 Other conditions influencing health status History of Other specified postprocedural states History of Papanicolaou smear Surgical History Past Surgical History: Procedure Laterality Date OTHER SURGICAL HISTORY 11/29/2018 Oral surgery OTHER SURGICAL HISTORY 06/02/2022 Colposcopy OTHER SURGICAL HISTORY 08/17/2014 Loop electrosurgical excision procedure Social History She reports that she has quit smoking. Her smoking use included cigarettes. She smoked an average of 1 pack per day. She has never used smokeless tobacco. She reports current alcohol use. She reports current drug use. Drug: Marijuana. Family History Family History Problem Relation Name Age of Onset No Known Problems Mother Osteoporosis Father Parkinsonism Mother's Sister Parkinsonism Maternal Grandmother Asthma Other Diabetes Other Hypertension Other Heart attack Other Allergies Amlodipine Review of Systems Skin: Positive for color change and wound. All other systems reviewed and are negative. Physical Exam General Appearance: AAO x 3, not in acute distress, drowsy from pain medication in ED Skin: left leg wound with erythema slough and some necrotic area, hands have bluish tint due to raynauds Eyes : PERRL, EOM's intact ENT: mucous membranes pink and moist Head: normocephalic, atraumatic Respiratory: lungs clear to auscultation anteriorly Heart: regular rate and rhythm Abdomen: Nondistended, positive bowel sounds x4, soft, nontender Extremities: no edema noted to reymundo lower ext, Peripheral pulses: normal x4 extremities Neuro: alert, coherent and conversant, no focal motor deficits Last Recorded Vitals Blood pressure 118/87, pulse 92, temperature 36.4 C (97.5 F), temperature source Temporal, resp. rate 17, height 1.727 m (5' 7.99), weight 81.6 kg (180 lb), SpO2 98 %. Relevant Results Results for orders placed or performed during the hospital encounter of 04/06/23 (from the past 24 hour(s)) CBC and Auto Differential Result Value Ref Range WBC 5.8 4.4 - 11.3 x10*3/uL nRBC 0.0 0.0 - 0.0 /100 WBCs RBC 5.00 4.00 - 5.20 x10*6/uL Hemoglobin 14.2 12.0 - 16.0 g/dL Hematocrit 44.5 36.0 - 46.0 % MCV 89 80 - 100 fL MCH 28.4 26.0 - 34.0 pg MCHC 31.9 (L) 32.0 - 36.0 g/dL RDW 15.5 (H) 11.5 - 14.5 % Platelets 143 (L) 150 - 450 x10*3/uL Neutrophils % 69.7 40.0 - 80.0 % Immature Granulocytes %, Automated 0.2 0.0 - 0.9 % Lymphocytes % 17.9 13.0 - 44.0 % Monocytes % 9.3 2.0 - 10.0 % Eosinophils % 2.2 0.0 - 6.0 % Basophils % 0.7 0.0 - 2.0 % Neutrophils Absolute 4.04 1.20 - 7.70 x10*3/uL Immature Granulocytes Absolute, Automated 0.01 0.00 - 0.70 x10*3/uL Lymphocytes Absolute 1.04 (L) 1.20 - 4.80 x10*3/uL Monocytes Absolute 0.54 0.10 - 1.00 x10*3/uL Eosinophils Absolute 0.13 0.00 - 0.70 x10*3/uL Basophils Absolute 0.04 0.00 - 0.10 x10*3/uL Comprehensive Metabolic Panel Result Value Ref Range Glucose 107 (H) 74 - 99 mg/dL Sodium 140 136 - 145 mmol/L Potassium 3.9 3.5 - 5.3 mmol/L Chloride 108 (H) 98 - 107 mmol/L Bicarbonate 24 21 - 32 mmol/L Anion Gap 12 10 - 20 mmol/L Urea Nitrogen 14 6 - 23 mg/dL Creatinine 0.93 0.50 - 1.05 mg/dL eGFR 80 >60 mL/min/1.73m*2 Calcium 9.0 8.6 - 10.3 mg/dL Albumin 3.7 3.4 - 5.0 g/dL Alkaline Phosphatase 245 (H) 33 - 110 U/L Total Protein 6.2 (L) 6.4 - 8.2 g/dL AST 14 9 - 39 U/L Bilirubin, Total 1.3 (H) 0.0 - 1.2 mg/dL ALT 13 7 - 45 U/L Lactate Result Value Ref Range Lactate 0.8 0.4 - 2.0 mmol/L C-Reactive Protein Result Value Ref Range C-Reactive Protein 0.99 <1.00 mg/dL Sedimentation Rate Result Value Ref Range Sedimentation Rate 27 (H) 0 - 20 mm/h SST TOP Result Value Ref Range Extra Tube Hold for add-ons. CT tibia fibula left w IV contrast Result Date: 04/06/2023 STUDY: CT Extremity; Completed Time: 04/06/2023 10:29 AM INDICATION: Wound of left tibia fibula. COMPARISON: None Available. ACCESSION NUMBER(S): [id number] ORDERING CLINICIAN: JOSUÉ IGLESIAS TECHNIQUE: Thin section axial images were obtained through the left tibia fibula with intravenous contrast. Orthogonal reconstructed images were obtained and reviewed. Omnipaque 350 70 mL was administered intravenously. Automated mA/kV exposure control was utilized and patient examination was performed in strict accordance with principles of ALARA. FINDINGS: Osseous structures demonstrate no evidence for acute fracture or dislocation. The tarsometatarsal joints are intact. There is focal calcific tendinosis involving the posterior tibialis. Distal Achilles is within normal limits. There is subcutaneous edema consistent with cellulitis. Along the plantar aspect of the patient's heel, there is a 1 cm Soft tissue density surrounding small central fluid density which may represent a small abscess. Clinical correlation is recommended. There is no calcaneal erosion. There is also prominent deep ulcer in the pretibial tissues measuring up to 1 cm in depth. No lytic or blastic tibial lesions. Varicosities noted within the subcutaneous tissues. Visualized calf muscles appear homogeneous in attenuation. Diffuse edematous change involving the calf and ankle consistent with cellulitis. Prominent deep ulcer along the anterior lower calf is observed. The underlying tibia shows no erosion. If there is high concern for osteomyelitis, correlate with MRI. 1 cm fluid density residing in the plantar aspect of the patients heel which may represent small abscess. Alternatively, this could represent a region of induration/decubitus change. No calcaneal erosions. Signed by Navjot Ruvalcaba MD Assessment/Plan Principal Problem: Cellulitis Jayna Smith is a 37 y.o. female presenting with left ankle and right index and middle finger wounds. She has a PMHX HTN, DM type II, raynauds, chronic leg wounds. She told the ED that her leg wound was healing and that her dog jumped up on her and scratched her and opened it up. To me she was recently at her PCP office and was told to come to the ED due to it looking worse and they felt that it needed IV antibiotics. She was placed on Augmentin yesterday at PCP office but didn't take it yet. She states that this started about 2 years ago due to having poison param and they getting a tattoo over the area. She was seen at [facility] and didn't like how they were treating her leg so she stopped going to them and has not had further treatment since. She is able to ambulate and stand on her leg but only for a few min at a time. She currently denies any fever, chills, nausea, vomiting. WBC 5.8, lactate 0.8, CRP 0.99, sed rate 27 #Cellulitis -WBC 5.8, lactate 0.8 -pt given iv vanco and zosyn in ed, will continue at this time -cultures sent from ed -Podiatry consulted appreciate recommendations -continue pain medication, due to pt being so drowsy with conversation will only do oral medication at this time -due to long hx of wounds and pt non-compliance with care will await for podiatry recommendations, but at this time pt likely will stay obs status #DM -pt states that she is not on any medication at home -last hgba1c 6.7 11/17/22 -continue accuchecks -SSI #HTN -continue home medication I spent 50 minutes in the professional and overall care of this patient. KHOA Estevez [facility] Work Phone: 04-19-2023 History and physical note No h and p changes Source Note - KHOA Estevez - 04/06/2023 1:41 PM EST History Of Present Illness Jayna Smith is a 37 y.o. female presenting with left ankle and right index and middle finger wounds. She has a PMHX HTN, DM type II, raynauds, chronic leg wounds. She told the ED that her leg wound was healing and that her dog jumped up on her and scratched her and opened it up. To me she was recently at her PCP office and was told to come to the ED due to it looking worse and they felt that it needed IV antibiotics. She was placed on Augmentin yesterday at PCP office but didn't take it yet. She states that this started about 2 years ago due to having poison param and they getting a tattoo over the area. She was seen at [facility] and didn't like how they were treating her leg so she stopped going to them and has not had further treatment since. She is able to ambulate and stand on her leg but only for a few min at a time. She currently denies any fever, chills, nausea, vomiting. WBC 5.8, lactate 0.8, CRP 0.99, sed rate 27 Past Medical History Past Medical History: Diagnosis Date Chlamydial infection, unspecified Chlamydia Elevated LFTs 05/25/2022 Immunization not carried out because of patient refusal Influenza vaccination declined LGSIL on Pap smear of cervix 07/20/2022 Other conditions influencing health status History of Other specified postprocedural states History of Papanicolaou smear Surgical History Past Surgical History: Procedure Laterality Date OTHER SURGICAL HISTORY 11/29/2018 Oral surgery OTHER SURGICAL HISTORY 06/02/2022 Colposcopy OTHER SURGICAL HISTORY 08/17/2014 Loop electrosurgical excision procedure Social History She reports that she has quit smoking. Her smoking use included cigarettes. She smoked an average of 1 pack per day. She has never used smokeless tobacco. She reports current alcohol use. She reports current drug use. Drug: Marijuana. Family History Family History Problem Relation Name Age of Onset No Known Problems Mother Osteoporosis Father Parkinsonism Mother's Sister Parkinsonism Maternal Grandmother Asthma Other Diabetes Other Hypertension Other Heart attack Other Allergies Amlodipine Review of Systems Skin: Positive for color change and wound. All other systems reviewed and are negative. Physical Exam General Appearance: AAO x 3, not in acute distress, drowsy from pain medication in ED Skin: left leg wound with erythema slough and some necrotic area, hands have bluish tint due to raynauds Eyes : PERRL, EOM's intact ENT: mucous membranes pink and moist Head: normocephalic, atraumatic Respiratory: lungs clear to auscultation anteriorly Heart: regular rate and rhythm Abdomen: Nondistended, positive bowel sounds x4, soft, nontender Extremities: no edema noted to reymundo lower ext, Peripheral pulses: normal x4 extremities Neuro: alert, coherent and conversant, no focal motor deficits Last Recorded Vitals Blood pressure 118/87, pulse 92, temperature 36.4 C (97.5 F), temperature source Temporal, resp. rate 17, height 1.727 m (5' 7.99), weight 81.6 kg (180 lb), SpO2 98 %. Relevant Results Results for orders placed or performed during the hospital encounter of 04/06/23 (from the past 24 hour(s)) CBC and Auto Differential Result Value Ref Range WBC 5.8 4.4 - 11.3 x10*3/uL nRBC 0.0 0.0 - 0.0 /100 WBCs RBC 5.00 4.00 - 5.20 x10*6/uL Hemoglobin 14.2 12.0 - 16.0 g/dL Hematocrit 44.5 36.0 - 46.0 % MCV 89 80 - 100 fL MCH 28.4 26.0 - 34.0 pg MCHC 31.9 (L) 32.0 - 36.0 g/dL RDW 15.5 (H) 11.5 - 14.5 % Platelets 143 (L) 150 - 450 x10*3/uL Neutrophils % 69.7 40.0 - 80.0 % Immature Granulocytes %, Automated 0.2 0.0 - 0.9 % Lymphocytes % 17.9 13.0 - 44.0 % Monocytes % 9.3 2.0 - 10.0 % Eosinophils % 2.2 0.0 - 6.0 % Basophils % 0.7 0.0 - 2.0 % Neutrophils Absolute 4.04 1.20 - 7.70 x10*3/uL Immature Granulocytes Absolute, Automated 0.01 0.00 - 0.70 x10*3/uL Lymphocytes Absolute 1.04 (L) 1.20 - 4.80 x10*3/uL Monocytes Absolute 0.54 0.10 - 1.00 x10*3/uL Eosinophils Absolute 0.13 0.00 - 0.70 x10*3/uL Basophils Absolute 0.04 0.00 - 0.10 x10*3/uL Comprehensive Metabolic Panel Result Value Ref Range Glucose 107 (H) 74 - 99 mg/dL Sodium 140 136 - 145 mmol/L Potassium 3.9 3.5 - 5.3 mmol/L Chloride 108 (H) 98 - 107 mmol/L Bicarbonate 24 21 - 32 mmol/L Anion Gap 12 10 - 20 mmol/L Urea Nitrogen 14 6 - 23 mg/dL Creatinine 0.93 0.50 - 1.05 mg/dL eGFR 80 >60 mL/min/1.73m*2 Calcium 9.0 8.6 - 10.3 mg/dL Albumin 3.7 3.4 - 5.0 g/dL Alkaline Phosphatase 245 (H) 33 - 110 U/L Total Protein 6.2 (L) 6.4 - 8.2 g/dL AST 14 9 - 39 U/L Bilirubin, Total 1.3 (H) 0.0 - 1.2 mg/dL ALT 13 7 - 45 U/L Lactate Result Value Ref Range Lactate 0.8 0.4 - 2.0 mmol/L C-Reactive Protein Result Value Ref Range C-Reactive Protein 0.99 <1.00 mg/dL Sedimentation Rate Result Value Ref Range Sedimentation Rate 27 (H) 0 - 20 mm/h SST TOP Result Value Ref Range Extra Tube Hold for add-ons. CT tibia fibula left w IV contrast Result Date: 04/06/2023 STUDY: CT Extremity; Completed Time: 04/06/2023 10:29 AM INDICATION: Wound of left tibia fibula. COMPARISON: None Available. ACCESSION NUMBER(S): [id number] ORDERING CLINICIAN: JOSUÉ IGLESIAS TECHNIQUE: Thin section axial images were obtained through the left tibia fibula with intravenous contrast. Orthogonal reconstructed images were obtained and reviewed. Omnipaque 350 70 mL was administered intravenously. Automated mA/kV exposure control was utilized and patient examination was performed in strict accordance with principles of ALARA. FINDINGS: Osseous structures demonstrate no evidence for acute fracture or dislocation. The tarsometatarsal joints are intact. There is focal calcific tendinosis involving the posterior tibialis. Distal Achilles is within normal limits. There is subcutaneous edema consistent with cellulitis. Along the plantar aspect of the patient's heel, there is a 1 cm Soft tissue density surrounding small central fluid density which may represent a small abscess. Clinical correlation is recommended. There is no calcaneal erosion. There is also prominent deep ulcer in the pretibial tissues measuring up to 1 cm in depth. No lytic or blastic tibial lesions. Varicosities noted within the subcutaneous tissues. Visualized calf muscles appear homogeneous in attenuation. Diffuse edematous change involving the calf and ankle consistent with cellulitis. Prominent deep ulcer along the anterior lower calf is observed. The underlying tibia shows no erosion. If there is high concern for osteomyelitis, correlate with MRI. 1 cm fluid density residing in the plantar aspect of the patients heel which may represent small abscess. Alternatively, this could represent a region of induration/decubitus change. No calcaneal erosions. Signed by Navjot Ruvalcaba MD Assessment/Plan Principal Problem: Cellulitis Jayna Cezar Smith is a 37 y.o. female presenting with left ankle and right index and middle finger wounds. She has a PMHX HTN, DM type II, raynauds, chronic leg wounds. She told the ED that her leg wound was healing and that her dog jumped up on her and scratched her and opened it up. To me she was recently at her PCP office and was told to come to the ED due to it looking worse and they felt that it needed IV antibiotics. She was placed on Augmentin yesterday at PCP office but didn't take it yet. She states that this started about 2 years ago due to having poison param and they getting a tattoo over the area. She was seen at [facility] and didn't like how they were treating her leg so she stopped going to them and has not had further treatment since. She is able to ambulate and stand on her leg but only for a few min at a time. She currently denies any fever, chills, nausea, vomiting. WBC 5.8, lactate 0.8, CRP 0.99, sed rate 27 #Cellulitis -WBC 5.8, lactate 0.8 -pt given iv vanco and zosyn in ed, will continue at this time -cultures sent from ed -Podiatry consulted appreciate recommendations -continue pain medication, due to pt being so drowsy with conversation will only do oral medication at this time -due to long hx of wounds and pt non-compliance with care will await for podiatry recommendations, but at this time pt likely will stay obs status #DM -pt states that she is not on any medication at home -last hgba1c 6.7 11/17/22 -continue accuchecks -SSI #HTN -continue home medication I spent 50 minutes in the professional and overall care of this patient. KHOA Estevez documented in this encounter [facility] Work Phone: 04-18-2023 Hospital Discharge instructions Felicia Barbosa DPM - 04/18/2023 12:41 PM EST -Weightbearing status to your surgical limb is as tolerated. Limit overall activity. -Keep your dressing clean, dry, and intact until follow up next week at [facility] ([place] location) with Dr. Barbosa. -Call office if you have questions or concerns at [phone]. -Elevate surgical limb while awake. -Apply ice to back of knee no more than 15 min each hour if needed for pain control. Do not apply to your surgical site. documented in this encounter [facility] Work Phone: 04-18-2023 Note Formatting of this n ote is different from the original. No outpatient medications have been marked as taking for the 04/19/23 encounter (Hospital Encounter). 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 female who presents for Follow-up (HOSP DC F/U -CELLULITIS WOUND L LEG AND R HAND 2ND AND 3RD FINGER. STARTED HER ON BACTRIM DS-PT IS CURRENTLY STILL TAKING) HPI FU [facility] hosp 04/06/23 through 04/09/23 Cellulitis Advised to follow up with dr barbosa in 1 week Advised to follow up with oupt pulm HTN clinic She was discharged with bactrim which she believes she will finish in 1-2 days She states the hosp work slip was dated the week prior to her being there so she needs a new work slip. Also she was told to not go back to work until she was cleared by the Dr. She is to be jimenez bearing as tolerated but min. I have agreed to write her off from when she was seen in my office Apr 05 through apr 19. I prefer her to be cleared by pod or the wound clinic. Will extend the work slip if needed and discussed consider looking info FMLA Med check anxiety - buspar GERD - tums prn - rare HTN - on lisinopril - home readings are good raynauds - stable allergies - on loratadine varicose veins- denies pain and denies using romaine hose often Preventative Testing mammo suggest age 38 PAP - Dr Emma DUNN -suggest age 48 colonoscopy - suggest colonoscopy at age 43 PHQ2 Depression screen - NEG MAR 2023 Fall - Neg MAR 2023 Tobacco - quit Mar 2023 for a few days - cont to vape - trying to avoid buying more cig if possible Patient Active Problem List Diagnosis Abnormal uterine bleeding (AUB) BPPV (benign paroxysmal positional vertigo) Cervix dysplasia Chronic renal insufficiency, stage III (moderate) (CMS/HCC) Dysplasia of cervix, low grade ([place]ET[place] 1) Hypertension associated with diabetes (CMS/HCC) ELIZABETH (generalized anxiety disorder) GERD (gastroesophageal reflux disease) Controlled type 2 diabetes mellitus with hyperglycemia, without long-term current use of insulin (CMS/HCC) Hemiplegic migraine Hypertriglyceridemia Leg edema Lesion of left ovary Low serum HDL Motion sickness Ovarian cyst, complex Pain of left lower extremity Raynauds disease Sacroiliac joint dysfunction of left side Seasonal allergies Varicose veins of legs Wound of left ankle Amenorrhea Vaginal lesion Elevated red blood cell count Non-healing wound of lower extremity Non-healing wound of upper extremity Finger ulcer (CMS/HCC) Overweight (BMI 25.0-29.9) History of ovarian cyst Elevated ferritin Review of Systems Constitutional: Positive for fatigue. Negative for chills and fever. HENT: Negative for congestion, rhinorrhea, sinus pain, sore throat and tinnitus. Eyes: Negative for discharge, redness and visual disturbance. Respiratory: Negative for cough, chest tightness, shortness of breath and wheezing. Cardiovascular: Positive for leg swelling. Negative for chest pain and palpitations. Gastrointestinal: Negative for abdominal pain, constipation, diarrhea, nausea and vomiting. Endocrine: Negative for cold intolerance and heat intolerance. Genitourinary: Negative for flank pain, frequency and urgency. Musculoskeletal: Positive for arthralgias and myalgias. Negative for back pain, gait problem and neck pain. Skin: Positive for wound. Negative for rash. Neurological: Negative for dizziness, tremors, syncope, numbness and headaches. Hematological: Does not bruise/bleed easily. Psychiatric/Behavioral: Negative for confusion, sleep disturbance and suicidal ideas. Past Medical History: Diagnosis Date Chlamydial infection, unspecified Chlamydia Elevated LFTs 05/25/2022 Immunization not carried out because of patient refusal Influenza vaccination declined LGSIL on Pap smear of cervix 07/20/2022 Other conditions influencing health status History of Other specified postprocedural states History of Papanicolaou smear Past Surgical History: Procedure Laterality Date CERVICAL BIOPSY W/ LOOP ELECTRODE EXCISION 08/17/2014 dr. temple COLPOSCOPY 05/13/2022 MOUTH SURGERY Family History Problem Relation Name Age of Onset No Known Problems Mother Osteoporosis Father Parkinsonism Mother's Sister Parkinsonism Maternal Grandmother Asthma Other Diabetes Other Hypertension Other Heart attack Other Social History Tobacco Use Smoking status: Former Packs/day: 0.50 Years: 2.00 Additional pack years: 0.00 Total pack years: 1.00 Types: Cigarettes Quit date: 03/30/2023 Years since quittin.0 Smokeless tobacco: Never Vaping Use Vaping Use: Every day Substances: Nicotine, THC, CBD, Flavoring Devices: Disposable Substance Use Topics Alcohol use: Yes Alcohol/week: 2.0 standard drinks of alcohol Types: 2 Shots of liquor per week Comment: RARE Drug use: Yes Types: Marijuana Comment: THC pens Allergies Allergen Reactions Amlodipine Swelling Current Outpatient Medications Medication Sig Dispense Refill ascorbic acid (Vitamin C) 500 mg tablet Take 1 tablet (500 mg) by mouth once daily. busPIRone (Buspar) 5 mg tablet Take 1 tablet (5 mg) by mouth 3 times a day as needed (anxiety). cholecalciferol (Vitamin D3) 25 MCG (1000 UT) tablet Take 1 tablet (1,000 Units) by mouth once daily. loratadine (Claritin) 10 mg tablet Take 1 tablet (10 mg) by mouth once daily as needed for allergies. omeprazole (PriLOSEC) [address] capsule Take 1 capsule (20 mg) by mouth once daily as needed (acid reflex). oxyCODONE (Roxicodone) 5 mg immediate release tablet Take 1 tablet (5 mg) by mouth every 6 hours if needed for severe pain (7 - 10) for up to 3 days. 6 tablet 0 sulfamethoxazole-trimethoprim (Bactrim DS) 800-160 mg tablet Take 1 tablet by mouth every 12 hours for 5 days. 10 tablet 0 zinc gluconate 50 mg tablet Take 1 tablet (50 mg of elemental zinc) by mouth once daily. nitroglycerin (Nitro-Bid) 2 % ointment Place 0.5 inches on the skin every 6 hours during the day for 30 doses. 2 g 0 silver sulfADIAZINE (Silvadene) 1 % cream Apply topically 2 times a day. No current facility-administered medications for this visit. Objective BP 109/81 Pulse 70 Ht 1.727 m (5' 8) Wt 83.5 kg (184 lb) LMP (LMP Unknown) BMI 27.98 kg/m Physical Exam Vitals reviewed. Constitutional: Appearance: Normal appearance. HENT: Head: Normocephalic. Right Ear: External ear normal. Left Ear: External ear normal. Nose: Nose normal. No congestion or rhinorrhea. Mouth/Throat: Mouth: Mucous membranes are moist. Eyes: Extraocular Movements: Extraocular movements intact. Conjunctiva/sclera: Conjunctivae normal. Pupils: Pupils are equal, round, and reactive to light. Cardiovascular: Rate and Rhythm: Normal rate and regular rhythm. Pulses: Normal pulses. Pulmonary: Effort: Pulmonary effort is normal. Breath sounds: Normal breath sounds. Abdominal: General: Bowel sounds are normal. Palpations: Abdomen is soft. Tenderness: There is no abdominal tenderness. There is no right CVA tenderness or left CVA tenderness. Musculoskeletal: General: No tenderness. Normal range of motion. Cervical back: Normal range of motion and neck supple. No tenderness. Skin: General: Skin is warm and dry. Comments: L anterior tibial deep ulcer noted about 4 x 8 cm in size Small ulcer noted more medial about 2 x 2cm in size Surround skin is brawny, dry, flaking and edematous but improved from prior visit Neg warmth R hand 2nd and third digit scab noted on the distal pad of her finger. The fingers are slightly erythematous and swollen and her fingers are in a contracture state Neg warmth to touch Improved from last week Neurological: General: No focal deficit present. Mental Status: She is alert and oriented to person, place, and time. Psychiatric: Mood and Affect: Mood normal. Behavior: Behavior normal. Testing Reviewed hosp reports Labs Cultures, Echo and vascular testing Impression MDM 1) COMPLEXITY: 1 OR MORE CHRONIC CONDITION WITH EXACERBATION, OR PROGRESSION OR SIDE EFFECT OF TREATMENT ADDRESSED 2)DATA: TESTS INTERPRETED AND OR ORDERED, TOOK INDEPENDENT HISTORY OR RECORDS REVIEWED 3)RISK: MODERATE RISK DUE TO NATURE OF MEDICAL CONDITIONS/COMORBIDITY OR MEDICATIONS ORDERED OR SURGICAL OR PROCEDURE REFERRAL, . Reviewed labs and Testing on file Patient to follow diet low in cholesterol, fat, and sodium. Patient is advised to increase Exercise. Patient is recommended to lose weight. Reviewed Meds and discussed common side effects Continue as directed Pulm hypertension and other findings on echo - referral to cardio outpt as suggested BP is to goal Cellulitis/ulcer - healing but will start referral to pod as suggested JOHNNIE Finish Abx and discussed consider follow up in 1-2 weeks for re-eval - pt states will call for appointment if she is not being followed by her specialists for this at this time Discussed treatment and bandages Discussed nitroglycerin paste cautiously for her fingers when needed to promote blood flow Patient is strongly advised to be compliant with recommendations. Return to Clinic sooner if needed. Patient denies further questions/concerns at this time Assessment/Plan Problem List Items Addressed This Visit ICD-10-CM Hypertension associated with diabetes ([facility]) E11.59, I15.2 Controlled type 2 diabetes mellitus with hyperglycemia, without long-term current use of insulin ([facility]) E11.65 Raynauds disease I73.00 Relevant Medications nitroglycerin (Nitro-Bid) 2 % ointment Non-healing wound of lower extremity S81.809A Relevant Orders Referral to Podiatry Finger ulcer ([facility]) L98.499 Relevant Orders Referral to Podiatry Overweight (BMI 25.0-29.9) E66.3 Pulmonary hypertension ([facility]) I27.20 Relevant Orders Referral to Cardiology Severe tricuspid regurgitation by prior echocardiogram I07.1 Relevant Medications nitroglycerin (Nitro-Bid) 2 % ointment Other Relevant Orders Referral to Cardiology Other Visit Diagnoses Codes Hospital discharge follow-up - Primary Z09 FU in 1-3 weeks with wound check - pt to call if needed as she is seeing her specialists FU in 1-2 mo with labs and overall check Referral to pod - fascione JOHNNIE - consult in the hosp recommended 1 week follow up - L leg wound Work slip Apr 05 through Apr 19 d/t medical reasons documented in this encounter [facility] Work Phone: 04-09-2023 Nurse Note Discharge Note: 04/09/20231652 Discharge instructions and pt responsibilities reviewed with pt and copy given. Cellulitis, wound care, education reviewed with pt and information sheets given. Pt verbalizes understanding of instructions received, verbalizes understanding of when to seek medical attention, denies any home going or personal care needs. Denies further questions or concerns. Reviewed follow up appts with pt and verbalizes understanding. Yamil LOPEZ [facility] 04-09-2023 Nurse Note Discharge Note: 04/09/20231652 Discharge instructions and pt responsibilities reviewed with pt and copy given. Cellulitis, wound care, education reviewed with pt and information sheets given. Pt verbalizes understanding of instructions received, verbalizes understanding of when to seek medical attention, denies any home going or personal care needs. Denies further questions or concerns. Reviewed follow up appts with pt and verbalizes understanding. Yamil LOPEZ documented in this encounter [facility] Work Phone: 04-09-2023 Hospital Discharge instructions Beckie Chopra RN - 04/09/2023 4:28 PM EST Images from the original note were not included. Cellulitis (Skin Infection) Discharge Instructions, Adult About this topic Cellulitis is a skin infection. All people have germs on their skin. Most of the time, these germs do not cause a problem. A skin infection means the germs have gotten into the layers of your skin. Germs can enter your body from a cut, scratch, or bite. The infected part gets red, warm, painful, swollen, and irritated. You need antibiotics to treat the infection. It is important to take all of your antibiotics even if you start to feel better. If not, your infection may come back and be more serious than before. What care is needed at home? Ask your doctor what you need to do when you go home. Make sure you ask questions if you do not understand what the doctor says. This way you will know what you need to do. Prop your painful body part on pillows, keeping it above the level of your heart. This may help lessen pain and swelling. Keep your infected area clean and dry. Do not squeeze, scratch, or rub it. You can gently wash the area with soap and water or take a shower. Pat the area dry with a clean towel. Wash your hands before and after you touch your infected area. Do not put an antibiotic ointment on the infected area. Use clean, warm compresses to help ease pain and swelling. Wet a clean wash cloth or small towel with hot water. Put it on the area for 5 to 10 minutes. You can draw a line with a waterproof marker around the red area to see if it is getting bigger or smaller. What follow-up care is needed? Your doctor may ask you to make visits to the office to check on your progress. Be sure to keep these visits. If surgery was needed to drain the infection, your doctor may not stitch the area closed. Keep this area clean and covered. If you do have stitches or piedad, you will need to have them taken out. Your doctor will often want to do this in 1 to 2 weeks. What drugs may be needed? The doctor may order drugs to: Treat the infection. Finish all of the antibiotics, even if the infection appears to have gone away. Help with pain and swelling Will physical activity be limited? Your activity may be decreased if a leg or arm is infected. It may be painful to move that part of the body. You may not feel well for a few days until the drug to treat the infection starts working. What problems could happen? Infection in the blood. This is sepsis and is very serious. Bone infection Inflammation of the lymph vessels Inflammation of the heart Meningitis Shock Tissue or gangrene What can be done to prevent this health problem? Wear proper clothing and shoes to cover your body and prevent cuts and bruises. Keep your nails trimmed to avoid scratches. Keep skin moisturized. Use lotion that does not have fragrance added to avoid dry, cracked skin. Treat athlete's foot as directed by your doctor. If you have a chronic skin condition, talk with your doctor about how to keep it under the best control. If you have chronic swelling (edema) of an arm or leg, talk with your doctor about how to lower the swelling. Your doctor may want you to wear support stockings. Practice good hygiene. Wash your hands often with soap and water. If you often have fungal infections, ask your doctor if you should be using an antifungal drug to prevent the cellulitis from occurring again. If you scratch or cut your skin, wash the area carefully with soap and water. When do I need to call the doctor? Signs of infection. These include a fever of 100.4 F (38 C) or higher, chills, or wound that will not heal. You have a fever of 100.4 F (38 C) or higher or chills. The area becomes more red, swollen, or painful. The redness or swelling spreads up your leg or arm or to a larger area. The infected area is not better after 3 days of taking antibiotics. Teach Back: Helping You Understand The Teach Back Method helps you understand the information we are giving you. After you talk with the staff, tell them in your own words what you learned. This helps to make sure the staff has described each thing clearly. It also helps to explain things that may have been confusing. Before going home, make sure you can do these: I can tell you about my condition. I can tell you about to care for my wound. I can tell you what I will do if I have swelling, redness, or warmth around my wound. Last Reviewed Date 2020-08-12 documented in this encounter [facility] Work Phone: 04-09-2023 Hospital course Narrative Discharge Diagnosis Cellulitis Issues Requiring Follow-Up It is recommended that she follow up with Dr. Barbosa in her office in 1 week. It is also recommended that she follow up with outpt pulmonary HTN clinic Discharge Meds Your medication list START taking these medications Instructions Last Dose Given Next Dose Due sulfamethoxazole-trimethoprim 800-160 mg tablet Commonly known as: Bactrim DS Take 1 tablet by mouth every 12 hours for 5 days. CONTINUE taking these medications Instructions Last Dose Given Next Dose Due ascorbic acid 500 mg tablet Commonly known as: Vitamin C busPIRone 5 mg tablet Commonly known as: Buspar loratadine 10 mg tablet Commonly known as: Claritin Nitro-Bid 2 % ointment Generic drug: nitroglycerin Place 0.5 inches on the skin every 6 hours during the day for 30 doses. omeprazole [address] capsule Commonly known as: PriLOSEC silver sulfADIAZINE 1 % cream Commonly known as: Silvadene Vitamin D3 25 MCG (1000 UT) tablet Generic drug: cholecalciferol zinc gluconate 50 mg tablet STOP taking these medications amoxicillin-pot clavulanate 875-125 mg tablet Commonly known as: Augmentin lisinopril 2.5 mg tablet Where to Get Your Medications These medications were sent to [facility] [address] [place] [address] Hours: 8 AM to 5:30 Mon-Fri, 8 AM to 4 PM Sunday and Sunday sulfamethoxazole-trimethoprim 800-160 mg tablet Test Results Pending At Discharge Pending Labs Order Current Status Blood Culture Preliminary result Blood Culture Preliminary result Hospital Course Jayna Smith is a 37 y.o. female presenting with left ankle and right index and middle finger wounds. She has a PMHX HTN, DM type II, raynauds, chronic leg wounds. She told the ED that her leg wound was healing and that her dog jumped up on her and scratched her and opened it up. To me she was recently at her PCP office and was told to come to the ED due to it looking worse and they felt that it needed IV antibiotics. She was placed on Augmentin yesterday at PCP office but didn't take it yet. She states that this started about 2 years ago due to having poison param and they getting a tattoo over the area. She was seen at [facility] and didn't like how they were treating her leg so she stopped going to them and has not had further treatment since. She is able to ambulate and stand on her leg but only for a few min at a time. She currently denies any fever, chills, nausea, vomiting. WBC 5.8, lactate 0.8, CRP 0.99, sed rate 27 Pt was seen by podiatry and was recommended for Dressing care: aquacel ag, gauze, abd, kerlix. Wash with soap and water Offloading: avoid direct pressure on ulcer Weightbearing status: as tolerated Infection management: blood and wound culture pending. Additional limb surgery is not planned at this time. Continue bactrim. Xray neg for bone involvement It is recommended that you follow up with Dr. Tate in 1 week for hospital follow up It is also recommended that she follow up with outpt pulmonary HTN clinic Pertinent Physical Exam At Time of Discharge Physical Exam General Appearance: AAO x 3, not in acute distress Skin: skin color pink, warm, and dry; seen to left lower leg dry and intact. Fingertips are discolored from Raynolds Eyes : PERRL, EOM's intact ENT: mucous membranes pink and moist Neck: normocephalic Respiratory: lungs clear to auscultation anteriorly; no wheezing, rhonchi, or crackles. Heart: regular rate and rhythm. Murmur present Abdomen: Nondistended, positive bowel sounds x4, soft, nontender Extremities: 2+ pitting edema to the left foot. Nonpitting edema noted to left calf Peripheral pulses: normal x4 extremities. 1+ to bilateral pedal's Neuro: alert, coherent and conversant, no focal motor deficits Outpatient Follow-Up Future Appointments Date Time Provider Department Center 04/24/2023 9:00 AM [facility] 04/26/[facility]23 8:40 AM Rajendra Foley PA-C [id number] [facility] 05/01/2023 9:00 AM Rashawn Carter MD [id number] [facility] 05/23/2023 2:30 PM Sabrina Villegas MD [id number] [facility] KHOA Estevez documented in this encounter [facility] Work Phone: 04-09-2023 History of Present illness Narrative Jayna Smith is a 37 y.o. female on day 0 of admission presenting with Cellulitis. Subjective Pt sitting up in bed talking with family. She voices no complaints at this time. She is awaiting vascular studies to be done. Objective Last Recorded Vitals BP 105/79 Pulse 66 Temp 35.8 C (96.4 F) Resp 18 Wt 81.6 kg (180 lb) SpO2 90% Intake/Output last 3 Shifts: Intake/Output Summary (Last 24 hours) at 04/09/2023 1439 Last data filed at 04/09/2023 1300 Gross per 24 hour Intake 560 ml Output -- Net 560 ml Admission Weight Weight: 81.6 kg (180 lb) (04/06/23 0849) Daily Weight 04/06/23 : 81.6 kg (180 lb) Image Results Vascular US PVR without exercise [place] [address] [id number], Preliminary Vascular Lab Report [facility] US PVR WITHOUT EXERCISE Patient Name: JAYNA SMITH Reading Physician: [id number] Sabrina Son MD Study Date: 04/09/2023 Ordering Provider: [id number] FELICIA BARBOSA MRN/PID: [id number] Fellow: Technologist: Rashawn Gordon RVMacho Date of : 1985 Technologist 2: Gender: F Admission Status: Inpatient Location Performed: [facility] Diagnosis/ICD: Peripheral vascular disease, unspecified-I73.9 CPT Codes: 94126 Peripheral artery PVR (multi segmental pressure Pertinent History: Right leg ulceration. PRELIMINARY CONCLUSIONS: Right Lower PVR: No evidence of arterial occlusive disease in the right lower extremity at rest. Normal digital perfusion noted. Biphasic flow is noted in the right dorsalis pedis artery. Triphasic flow is noted in the right posterior tibial artery, right popliteal artery and right common femoral artery. Left Lower PVR: No evidence of arterial occlusive disease in the left lower extremity at rest. Normal digital perfusion noted. Biphasic flow is noted in the left dorsalis pedis artery. Triphasic flow is noted in the left posterior tibial artery, left popliteal artery and left common femoral artery. Imaging & Doppler Findings: RIGHT Lower PVR Pressures Ratios Right High Thigh 167 mmHg 1.48 Right Low Thigh 152 mmHg 1.35 Right Calf 116 mmHg 1.03 Right Posterior Tibial (Ankle) 108 mmHg 0.96 Right Dorsalis Pedis (Ankle) 105 mmHg 0.93 Right Digit (Great Toe) 74 mmHg 0.65 LEFT Lower PVR Pressures Ratios Left High Thigh 152 mmHg 1.35 Left Low Thigh 145 mmHg 1.28 Left Calf 118 mmHg 1.04 Left Posterior Tibial (Ankle) 135 mmHg 1.19 Left Dorsalis Pedis (Ankle) 122 mmHg 1.08 Left Digit (Great Toe) 75 mmHg 0.66 Right Left Brachial Pressure 113 mmHg 111 mmHg VASCULAR PRELIMINARY REPORT completed by Rashawn Gordon RVT on 04/09/2023 at 2:31:38 PM Final Vascular US upper PVR [place] [address] [id number], Preliminary Vascular Lab Report [facility] US UPPER PVR Patient Name: JAYNA SMITH Reading Physician: [id number] Sabrina Son MD Study Date: 04/09/2023 Ordering Provider: [id number] MELISSA ESQUIVEL MRN/PID: [id number] Fellow: Technologist: Rashawn Gordon RVT Date of : 1985 Technologist 2: Gender: F Admission Status: Inpatient Location Performed: [facility] Diagnosis/ICD: Peripheral vascular disease, unspecified-I73.9 CPT Codes: 17091 Peripheral artery PVR (multi segmental pressure PRELIMINARY CONCLUSIONS: Right Upper PVR: Biphasic waveforms are noted throughout. Diminished digit waveforms. Index and middle finger waveforms taken due to ulceration. Left Upper PVR: Biphasic waveforms are noted throughout. Diminished digit waveform. Imaging & Doppler Findings: RIGHT Digit Pressures Index digit 65 mmHg Radial Ratio 0.84 Ulnar Ratio 0.79 Digit Ratio 0.58 LEFT Digit Pressures Index digit 70 mmHg Radial Ratio 0.89 Ulnar Ratio 0.93 Digit Ratio 0.62 Right Left Brachial Pressure 113 mmHg 111 mmHg Radial 95 mmHg 101 mmHg Ulnar 89 mmHg 105 mmHg VASCULAR PRELIMINARY REPORT completed by Rashawn Gordon RVT on 04/09/2023 at 2:28:30 PM Final XR tibia fibula left 2 views Narrative: Interpreted By: Liang Robles, STUDY: XR TIBIA FIBULA LEFT 2 VIEWS 04/07/2023 11:32 am INDICATION: Signs/Symptoms:chronic left leg wound COMPARISON: None. ACCESSION NUMBER(S): [id number] ORDERING CLINICIAN: FELICIA BARBOSA TECHNIQUE: 2 views of the left tibia and fibula including AP and lateral projections were obtained. FINDINGS: There is no evidence of acute fracture or dislocation identified. The joint spaces are well preserved throughout without significant degenerative changes. Impression: 1. No fracture or dislocation. MACRO: None. 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 Study Detail: The following Echo studies were performed: 2D, M-Mode, Doppler and color flow. Definity used as a contrast agent for endocardial border definition. Total contrast used for this procedure was 1 mL via IV push. A bubble study was not performed. The patient was awake. PHYSICIAN INTERPRETATION: Left Ventricle: Left ventricular systolic function is normal, with an estimated ejection fraction of 60%. There are no regional wall motion abnormalities. The left ventricular cavity size is normal. There is moderate concentric left ventricular hypertrophy. Spectral Doppler shows an impaired relaxation pattern of left ventricular diastolic filling. Left Atrium: The left atrium is normal in size. Right Ventricle: The right ventricle is moderately enlarged. There is reduced right ventricular systolic function. Right Atrium: The right atrium is severely dilated. Aortic Valve: The aortic valve is trileaflet. There is no evidence of aortic valve regurgitation. The peak instantaneous gradient of the aortic valve is 3.9 mmHg. The mean gradient of the aortic valve is 2.0 mmHg. Mitral Valve: The mitral valve is normal in structure. There is no evidence of mitral valve regurgitation. Tricuspid Valve: The tricuspid valve is structurally normal. There is severe tricuspid regurgitation. RV-RA gradient 102mm Hg. Pulmonic Valve: The pulmonic valve is not well visualized. There is mild pulmonic valve regurgitation. Pericardium: There is a small pericardial effusion. Aorta: The aortic root is normal. Systemic Veins: The inferior vena cava appears dilated. There is less than 50% IVC collapse with inspiration. CONCLUSIONS: 1. Left ventricular systolic function is normal with a 60% estimated ejection fraction. 2. Spectral Doppler shows an impaired relaxation pattern of left ventricular diastolic filling. 3. There is moderate concentric left ventricular hypertrophy. 4. Enlarged right ventricle with reduced systolic function. 5. D-shaped septum in systole and diastole, consistent with right ventricular pressure and volume overload. 6. Severe tricuspid regurgitation. 7. The right atrium is severely dilated. 8. Calculated right ventricular systolic pressure is 117mm Hg. 9. Small pericardial effusion with no echocardiographic evidence of tamponade. 10. Consult team informed of findings. 11. Findings are consistent with severe Pulmonary Hypertension; presence of pericardial effusion and RV systolic dysfunction are high-risk markers. QUANTITATIVE DATA SUMMARY: 2D MEASUREMENTS: Normal Ranges: Ao Root d: 2.80 cm (2.0-3.7cm) LAs: 2.90 cm (2.7-4.0cm) IVSd: 1.47 cm (0.6-1.1cm) LVPWd: 1.37 cm (0.6-1.1cm) LVIDd: 2.38 cm (3.9-5.9cm) LVIDs: 1.63 cm LV Mass Index: 55.1 g/m2 LV % FS 31.5 % LA VOLUME: Normal Ranges: LA Vol A4C: 35.1 ml (22+/-6mL/m2) LA Vol A2C: 39.7 ml LA Vol BP: 40.7 ml LA Vol Index A4C: 18.0ml/m2 LA Vol Index A2C: 20.3 ml/m2 LA Vol Index BP: 20.8 ml/m2 LA Area A4C: 15.9 cm2 LA Area A2C: 15.5 cm2 LA Major [place] A4C: 6.1 cm LA Major [place] A2C: 5.2 cm LA Volume Index: 20.0 ml/m2 LA Vol A4C: 33.9 ml LA Vol A2C: 39.0 ml LV SYSTOLIC FUNCTION BY 2D PLANIMETRY (MOD): Normal Ranges: EF-A4C View: 30.9 % (>=55%) LV DIASTOLIC FUNCTION: Normal Ranges: MV Peak E: 0.38 m/s (0.7-1.2 m/s) MV Peak A: 0.62 m/s (0.42-0.7 m/s) E/A Ratio: 0.62 (1.0-2.2) MV e' 0.08 m/s (>8.0) MV lateral e' 0.09 m/s MV medial e' 0.08 m/s E/e' Ratio: 4.79 (<8.0) MITRAL VALVE: Normal Ranges: MV DT: 324 msec (150-240msec) AORTIC VALVE: Normal Ranges: AoV Vmax: 0.99 m/s (<=1.7m/s) AoV Peak P.9 mmHg (<20mmHg) AoV Mean P.0 mmHg (1.7-11.5mmHg) LVOT Max Edita: 0.80 m/s (<=1.1m/s) AoV VTI: 17.40 cm (18-25cm) LVOT VTI: 11.40 cm LVOT Diameter: 2.20 cm (1.8-2.4cm) AoV Area, VTI: 2.49 cm2 (2.5-5.5cm2) AoV Area,Vmax: 3.06 cm2 (2.5-4.5cm2) AoV Dimensionless Index: 0.66 RIGHT VENTRICLE: RV Basal 4.07 cm RV Mid 3.07 cm RV Major 7.7 cm TAPSE: 13.2 mm TRICUSPID VALVE/RVSP: Normal Ranges: Peak TR Velocity: 5.04 m/s RV Syst Pressure: 104.6 mmHg (< 30mmHg) PULMONIC VALVE: Normal Ranges: PV Accel Time: 81 msec (>120ms) PV Max Edita: 1.1 m/s (0.6-0.9m/s) PV Max P.2 mmHg PIEDV: 0.90 m/s PADP: 6.3 mmHg [id number] Emre Silverio MD Electronically signed on 04/09/2023 at 9:42:53 AM Final Physical Exam General Appearance: AAO x 3, not in acute distress Skin: skin color pink, warm, and dry; seen to left lower leg dry and intact. Fingertips are discolored from Raynolds Eyes : PERRL, EOM's intact ENT: mucous membranes pink and moist Neck: normocephalic Respiratory: lungs clear to auscultation anteriorly; no wheezing, rhonchi, or crackles. Heart: regular rate and rhythm. Murmur present Abdomen: Nondistended, positive bowel sounds x4, soft, nontender Extremities: 2+ pitting edema to the left foot. Nonpitting edema noted to left calf Peripheral pulses: normal x4 extremities. 1+ to bilateral pedal's Neuro: alert, coherent and conversant, no focal motor deficits Relevant Results Scheduled medications cholecalciferol, 1,000 Units, oral, Daily enoxaparin, 40 mg, subcutaneous, q24h [Held by provider] lisinopril, 2.5 mg, oral, Daily pantoprazole, 20 mg, oral, Daily before breakfast polyethylene glycol, 17 g, oral, Daily sulfamethoxazole-trimethoprim, 160 mg, oral, q12h LOUISE Continuous medications PRN medications PRN medications: acetaminophen, busPIRone, ondansetron, oxyCODONE Results for orders placed or performed during the hospital encounter of 04/06/23 (from the past 24 hour(s)) CBC Result Value Ref Range WBC 8.7 4.4 - 11.3 x10*3/uL nRBC 0.0 0.0 - 0.0 /100 WBCs RBC 5.16 4.00 - 5.20 x10*6/uL Hemoglobin 14.3 12.0 - 16.0 g/dL Hematocrit 46.4 (H) 36.0 - 46.0 % MCV 90 80 - 100 fL MCH 27.7 26.0 - 34.0 pg MCHC 30.8 (L) 32.0 - 36.0 g/dL RDW 14.9 (H) 11.5 - 14.5 % Platelets 175 150 - 450 x10*3/uL Basic Metabolic Panel Result Value Ref Range Glucose 126 (H) 74 - 99 mg/dL Sodium 132 (L) 136 - 145 mmol/L Potassium 4.6 3.5 - 5.3 mmol/L Chloride 107 98 - 107 mmol/L Bicarbonate 20 (L) 21 - 32 mmol/L Anion Gap 10 10 - 20 mmol/L Urea Nitrogen 22 6 - 23 mg/dL Creatinine 1.20 (H) 0.50 - 1.05 mg/dL eGFR 59 (L) >60 mL/min/1.73m*2 Calcium 8.6 8.6 - 10.3 mg/dL Transthoracic Echo (TTE) Complete Result Value Ref Range LVOT diam 2.20 cm MV E/A ratio 0.62 AV pk edita 0.99 m/s AV mn grad 2.0 mmHg Tricuspid annular plane systolic excursion 1.3 cm LA vol index A/L 20.8 ml/m2 MV avg E/e' ratio 4.79 LVIDd 2.38 cm RVSP 104.6 mmHg Aortic Valve Area by Continuity of Peak Velocity 3.06 cm2 Aortic Valve Area by Continuity of VTI 2.49 cm2 AV pk grad 3.9 mmHg LV A4C EF 30.9 Assessment/Plan Principal Problem: Cellulitis Jayna Smith is a 37 y.o. female presenting with left ankle and right index and middle finger wounds. She has a PMHX HTN, DM type II, raynauds, chronic leg wounds. She told the ED that her leg wound was healing and that her dog jumped up on her and scratched her and opened it up. To me she was recently at her PCP office and was told to come to the ED due to it looking worse and they felt that it needed IV antibiotics. She was placed on Augmentin yesterday at PCP office but didn't take it yet. She states that this started about 2 years ago due to having poison param and they getting a tattoo over the area. She was seen at [facility] and didn't like how they were treating her leg so she stopped going to them and has not had further treatment since. Vik: AM labs ordered Chronic left lower leg wound with cellulitis -Podiatry consulted-appreciate recommendations -Wound care per podiatry's recommendations -Wound culture finalized showing MSSA -DC'd cefazolin and changed to Bactrim per sensitivity results -Patient will need follow-up with podiatry at discharge -awaiting vascular studies Hypertension -Lisinopril on hold secondary to blood pressure being in the low 100s DVT prophylaxis -Continue Lovenox Discharge disposition: Anticipate vascular study results and possible discharge tomorrow KHOA Estevez Nutrition Initial Assessment: Nutrition Assessment Reason for Assessment: Admission nursing screening Patient is a 37 y.o. female presenting with: cellulitis Nutrition History: Energy Intake: Good > 75 % Food and Nutrient History: Patient stated eating well, denied any needs Vitamin/Herbal Supplement Use: Vitamin D Food Allergies/Intolerances: None GI Symptoms: None Oral Problems: None Anthropometrics: Height: 172.7 cm (5' 7.99) Weight: 81.6 kg (180 lb) BMI (Calculated): 27.38 Weight History: Weight Change %: Weight History / % Weight Change: loss 8# (4% in 8 mo) Significant Weight Loss: No Nutrition Focused Physical Exam Findings: Physical Findings: Skin: Positive (chronic wound ankle) Nutrition Significant Labs: CBC Trend: Results from last 7 days Lab Units 04/09/23 0424 04/08/23 0504 04/07/23 0455 04/06/23 0915 WBC AUTO x10*3/uL 8.7 10.0 7.8 5.8 RBC AUTO x10*6/uL 5.16 5.29* 5.24* 5.00 HEMOGLOBIN g/dL 14.3 14.7 14.4 14.2 HEMATOCRIT % 46.4* 47.6* 47.6* 44.5 MCV fL 90 90 91 89 PLATELETS AUTO x10*3/uL 175 184 158 143* , Renal Lab Trend: Results from last 7 days Lab Units 04/09/23 0424 04/08/23 0504 04/07/23 0455 04/06/23 0915 POTASSIUM mmol/L 4.6 4.8 4.4 3.9 SODIUM mmol/L 132* 133* 137 140 EGFR mL/min/1.73m*2 59* 52* 63 80 BUN mg/dL 22 26* 16 14 CREATININE mg/dL 1.20* 1.33* 1.14* 0.93 I/O: Last BM Date: 04/07/23; Dietary Orders (From admission, onward) Start Ordered 04/06/23 1747 Oral nutritional supplements Until discontinued Question Answer Comment Deliver with Breakfast Deliver with Lunch Select supplement: Dejuan 04/06/23 1748 04/06/23 1506 May Participate in Room Service Once Question: . Answer: Yes 04/06/23 1506 04/06/23 1335 Adult diet Regular Diet effective now Question: Diet type Answer: Regular 04/06/23 1336 Estimated Needs: Total Energy Estimated Needs (kCal): 2214 kCal Method for Estimating Needs: 25-30 kcal/kg Total Protein Estimated Needs (g): 98 g Total Fluid Estimated Needs (mL): 2870 mL Nutrition Diagnosis Malnutrition Diagnosis Patient has Malnutrition Diagnosis: No Nutrition Diagnosis Patient has Nutrition Diagnosis: Yes Diagnosis Status (1): New Nutrition Diagnosis 1: Increased nutrient needs Related to (1): healing process As Evidenced by (1): chronic wound on ankle Nutrition Interventions/Recommendations Nutrition Prescription: Individualized Nutrition Prescription Provided for : Regular diet with Dejuan BID = 180 kcal, 5 gm protein. Encouraged good protein intake with each meal Nutrition Interventions: Coordination of Nutrition Care by a Nutrition Professional Collaboration and Referral of Nutrition Care: Collaboration by nutrition professional with other providers Nutrition Education: Nutrition Monitoring and Evaluation Food/Nutrient Related History Monitoring Monitoring and Evaluation Plan: Amount of food Amount of Food: Estimated amout of food, Medical food intake Criteria: Consume >75% meals and 100% Dejuan Nutrition Focused Physical Findings Monitoring and Evaluation Plan: Skin Skin: Impaired wound healing Criteria: Improvement in wound size Time Spent/Follow-up Reminder: Time Spent (min): 30 minutes Last Date of Nutrition Visit: 04/09/23 Nutrition Follow-Up Needed?: 5-7 days Padmaja Michelle RDN, LD Subjective Data: Patient examined at bedside; she voices concern of her right index and middle fingers due to swelling and erythema. Ulcers noted to both fingers. Overnight Events: None Objective Data: Last Recorded Vitals: Vitals: 04/08/23 0700 04/08/23 1500 04/08/23 2100 04/09/23 0641 BP: 103/74 121/86 119/85 105/79 BP Location: Left arm Patient Position: Lying Pulse: 79 82 76 66 Resp: 18 18 18 18 Temp: 35.9 C (96.6 F) 36.4 C (97.5 F) 36 C (96.8 F) 35.8 C (96.4 F) TempSrc: Temporal Temporal SpO2: 90% 90% 90% 90% Weight: Height: Last Labs: CBC - 04/09/2023: 4:24 AM 8.7 14.3 175 46.4 CMP - 04/09/2023: 4:24 AM 8.6 6.2 14 --- 1.3 _ 3.7 13 245 PTT - No results in last year. _ _ _ TROPHS Date/Time Value Ref Range Status 11/28/2021 10:44 PM 8 0 - 13 ng/L Final Comment: . Less than 99th percentile of normal range cutoff- Female and children under 18 years old <14 ng/L; Male <21 ng/L: Negative Repeat testing should be performed if clinically indicated. . Female and children under 18 years old 14-50 ng/L; Male 21-50 ng/L: Consistent with possible cardiac damage and possible increased clinical risk. Serial measurements may help to assess extent of myocardial damage. . >50 ng/L: Consistent with cardiac damage, increased clinical risk and myocardial infarction. Serial measurements may help assess extent of myocardial damage. . NOTE: Children less than 1 year old may have higher baseline troponin levels and results should be interpreted in conjunction with the overall clinical context. . NOTE: Troponin I testing is performed using a different testing methodology at [facility] than at other [facility]. Direct result comparisons should only be made within the same method. HGBA1C Date/Time Value Ref Range Status 11/17/2022 08:33 AM 6.7 % Final Comment: Diagnosis of Diabetes-Adults Non-Diabetic: < or = 5.6% Increased risk for developing diabetes: 5.7-6.4% Diagnostic of diabetes: > or = 6.5% . Monitoring of Diabetes Age (y) Therapeutic Goal (%) Adults: >18 <7.0 Pediatrics: 13-18 <7.5 7-12 <8.0 0- 6 7.5-8.5 [place] Diabetes Association. Diabetes Care 33(S1)Mar 2009. 07/20/2022 09:26 AM 6.6 % Final Comment: Diagnosis of Diabetes-Adults Non-Diabetic: < or = 5.6% Increased risk for developing diabetes: 5.7-6.4% Diagnostic of diabetes: > or = 6.5% . Monitoring of Diabetes Age (y) Therapeutic Goal (%) Adults: >18 <7.0 Pediatrics: 13-18 <7.5 7-12 <8.0 0- 6 7.5-8.5 [place] Diabetes Association. Diabetes Care 33(S1), Mar 2009. VLDL Date/Time Value Ref Range Status 07/20/2022 09:26 AM 17 0 - 40 mg/dL Final 10/19/2021 08:40 AM 56 0 - 40 mg/dL Final 03/21/2021 08:23 AM 43 0 - 40 mg/dL Final Last I/O: I/O last 3 completed shifts: In: 750 (9.2 mL/kg) [P.O.:650; IV Piggyback:100] Out: - (0 mL/kg) Weight: 81.6 kg Past Cardiology Tests (Last 3 Years): EKG: No results found for this or any previous visit from the past 1095 days. Echo: No results found for this or any previous visit from the past 1095 days. Ejection Fractions: No results found for: EF Cath: No results found for this or any previous visit from the past 1095 days. Stress Test: No results found for this or any previous visit from the past 1095 days. Cardiac Imaging: No results found for this or any previous visit from the past 1095 days. Inpatient Medications: Scheduled medications Medication Dose Route Frequency cholecalciferol 1,000 Units oral Daily enoxaparin 40 mg subcutaneous q24h [Held by provider] lisinopril 2.5 mg oral Daily pantoprazole 20 mg oral Daily before breakfast polyethylene glycol 17 g oral Daily sulfamethoxazole-trimethoprim 160 mg oral q12h LOUISE PRN medications Medication acetaminophen busPIRone ondansetron oxyCODONE Continuous Medications Medication Dose Last Rate Physical Exam: General: awake, alert and oriented. No acute distress. Skin: Skin is warm and dry. Erythema noted to right index and middle fingers HEENT: normocephalic, atraumatic; conjunctivae are clear without exudates or hemorrhage. Sclera is non-icteric. Eyelids are normal in appearance without swelling or lesions. Hearing intact. Nares are patent bilaterally. Moist mucous membranes. Cardiovascular: heart rate and rhythm are normal. Grade 4/6 systolic murmur Respiratory: bilateral lung sounds clear to auscultations without rales, rhonchi, or wheezes. No accessory muscle use or stridor Gastrointestinal: non-distended, non-tender Genitourinary: exam deferred Musculoskeletal: ROM intact, no deformities Extremities: pulses palpable bilaterally x 4 extremities; bandage to left lower extremity; ulcers noted to right index and middle finger with contracture noted Neurological: no focal deficits Psychiatric: appropriate mood and affect; good judgment and insight Assessment/Plan Murmur: -Echo results are pending -Patient asymptomatic PVD: -Patient has hx of Raynaud's disease -She has non-healing ulcers to her right index and middle fingers and fingers are contracted. Also evidence of erythema and swelling to the fingers -Will order upper extremity PVR to evaluate for any arterial occlusive disease -ABIs ordered to lower extremities from Podiatry Peripheral IV 20 G Left;Ventral Forearm (Active) Site Assessment Clean;Dry;Intact 04/09/23738 Dressing Type Transparent 04/09/23738 Line Status Flushed 04/09/23738 Dressing Status Clean;Dry;Occlusive 04/09/23738 Number of days: Code Status: Full Code Thank you for allowing me to participate in the care of this patient. Please reach me out if you have any questions or if you need any clarifications regarding the patient's care. KHOA Naranjo DNP Jayna Smith is a 37 y.o. female on day 0 of admission presenting with Cellulitis. Subjective This patient was seen bedside for left leg ulcer and cellulitis. Her leg is painful. She denies fever, chills, nausea, vomiting. She had Echo performed this morning and not her lower limb vascular test yet. Objective Alert and oriented Integument: Skin turgor is thin and atrophic without infection, ecchymosiss, erythema, purulence, streaking, odor or necrosis. Skin discontinuity is noted to anterior left leg is deep, granular and fibrous without bogginess or fluctuance noted. No odor. There is rubrous and erythema surround. No skin tenting or blisters Vascular: Capillary fill time is brisk and less than 3 seconds to all digits. Hair is not present to lower extremities. Lower extremity edema. DP and PT pulses are palpable dp and non palpable pt bilateral. Neurological: Epicritic sensation is intact via light touch to lower extremities equal. Negative Babinski. Negative clonus. Musculoskeletal: Active range of motion digits bilateral. No pain with passive range of motion of digits, midfoot, subtalar, ankle joints bilateral.5/5 ankle muscle strength in all directions. Negative Lisa and Flores sign. Pain on palpation to left leg ulcer. Last Recorded Vitals Blood pressure 105/79, pulse 66, temperature 35.8 C (96.4 F), resp. rate 18, height 1.727 m (5' 7.99), weight 81.6 kg (180 lb), SpO2 90 %. Intake/Output last 3 Shifts: I/O last 3 completed shifts: In: 750 (9.2 mL/kg) [P.O.:650; IV Piggyback:100] Out: - (0 mL/kg) Weight: 81.6 kg Relevant Results WBC 8.7 CT leg left- no underlying tibia erosion. Diffuse edematous change to calf and ankle consistent with cellulitis. Deep ulcer anterior lower calf Leg xray left - no acute fractures or dislocations, soft tissue emphysema, or foreign body. Edema noted. Wound culture left leg - MSSA Blood cultures - no growth so far, final pending CRP 0.99 ESR 27 Assessment/Plan Principal Problem: Cellulitis I reviewed and discussed the case including diagnostic data. The following care recommendations and intervention was performed: Dressing care: aquacel ag, gauze, abd, kerlix. Wash with soap and water Offloading: avoid direct pressure on ulcer Weightbearing status: as tolerated Infection management: blood and wound culture pending. Additional limb surgery is not planned at this time. Continue bactrim. Xray neg for bone involvement Vascular work-up: ordered lower extremity non invasive vascular studies; results pending. Vascular consult may be needed. Edema: elevation Healing optimization and nutrition: dejuan nutritional supplement ordered to optimize healing Additional diagnostic data: reviewed labs and will follow trends. CT scan and leg xrays reviewed. I will follow her while in house. Please call if questions. To follow up at [facility] in [place] 1 week after discharge; [phone]. Felicia Barbosa DPM FACFAS [facility] Contact via [employer] Jayna Smith is a 37 y.o. female on day 0 of admission presenting with Cellulitis. Subjective Resting quietly in bed and states she feels blah today. Denies complaints of pain except with movement. Murmur auscultated stated during assessment. Patient states she was told a couple years ago that she has murmur but has not followed up since then Objective Last Recorded Vitals BP 121/86 Pulse 82 Temp 36.4 C (97.5 F) (Temporal) Resp 18 Wt 81.6 kg (180 lb) SpO2 90% Intake/Output last 3 Shifts: Intake/Output Summary (Last 24 hours) at 04/08/2023 1700 Last data filed at 04/08/2023 1021 Gross per 24 hour Intake 600 ml Output -- Net 600 ml Admission Weight Weight: 81.6 kg (180 lb) (04/06/23 0849) Daily Weight 04/06/23 : 81.6 kg (180 lb) Image Results CT tibia fibula left w IV contrast Narrative: STUDY: CT Extremity; Completed Time: 04/06/2023 10:29 AM INDICATION: Wound of left tibia fibula. COMPARISON: None Available. ACCESSION NUMBER(S): [id number] ORDERING CLINICIAN: JOSUÉ IGLESIAS TECHNIQUE: Thin section axial images were obtained through the left tibia fibula with intravenous contrast. Orthogonal reconstructed images were obtained and reviewed. Omnipaque 350 70 mL was administered intravenously. Automated mA/kV exposure control was utilized and patient examination was performed in strict accordance with principles of ALARA. FINDINGS: Osseous structures demonstrate no evidence for acute fracture or dislocation. The tarsometatarsal joints are intact. There is focal calcific tendinosis involving the posterior tibialis. Distal Achilles is within normal limits. There is subcutaneous edema consistent with cellulitis. Along the plantar aspect of the patient's heel, there is a 1 cm Soft tissue density surrounding small central fluid density which may represent a small abscess. Clinical correlation is recommended. There is no calcaneal erosion. There is also prominent deep ulcer in the pretibial tissues measuring up to 1 cm in depth. No lytic or blastic tibial lesions. Varicosities noted within the subcutaneous tissues. Visualized calf muscles appear homogeneous in attenuation. Impression: Diffuse edematous change involving the calf and ankle consistent with cellulitis. Prominent deep ulcer along the anterior lower calf is observed. The underlying tibia shows no erosion. If there is high concern for osteomyelitis, correlate with MRI. 1 cm fluid density residing in the plantar aspect of the patients heel which may represent small abscess. Alternatively, this could represent a region of induration/decubitus change. No calcaneal erosions. Signed by Navjto Ruvalcaba MD Physical Exam General Appearance: AAO x 3, not in acute distress Skin: skin color pink, warm, and dry; seen to left lower leg dry and intact. Fingertips are discolored from Raynolds Eyes : PERRL, EOM's intact ENT: mucous membranes pink and moist Neck: normocephalic Respiratory: lungs clear to auscultation anteriorly; no wheezing, rhonchi, or crackles. Heart: regular rate and rhythm. Murmur present Abdomen: Nondistended, positive bowel sounds x4, soft, nontender Extremities: 2+ pitting edema to the left foot. Nonpitting edema noted to left calf Peripheral pulses: normal x4 extremities. 1+ to bilateral pedal's Neuro: alert, coherent and conversant, no focal motor deficits Relevant Results Results for orders placed or performed during the hospital encounter of 04/06/23 (from the past 24 hour(s)) Basic Metabolic Panel Result Value Ref Range Glucose 143 (H) 74 - 99 mg/dL Sodium 133 (L) 136 - 145 mmol/L Potassium 4.8 3.5 - 5.3 mmol/L Chloride 106 98 - 107 mmol/L Bicarbonate 19 (L) 21 - 32 mmol/L Anion Gap 13 10 - 20 mmol/L Urea Nitrogen 26 (H) 6 - 23 mg/dL Creatinine 1.33 (H) 0.50 - 1.05 mg/dL eGFR 52 (L) >60 mL/min/1.73m*2 Calcium 8.6 8.6 - 10.3 mg/dL CBC Result Value Ref Range WBC 10.0 4.4 - 11.3 x10*3/uL nRBC 0.0 0.0 - 0.0 /100 WBCs RBC 5.29 (H) 4.00 - 5.20 x10*6/uL Hemoglobin 14.7 12.0 - 16.0 g/dL Hematocrit 47.6 (H) 36.0 - 46.0 % MCV 90 80 - 100 fL MCH 27.8 26.0 - 34.0 pg MCHC 30.9 (L) 32.0 - 36.0 g/dL RDW 15.1 (H) 11.5 - 14.5 % Platelets 184 150 - 450 x10*3/uL Scheduled medications ceFAZolin, 1 g, intravenous, q8h cholecalciferol, 1,000 Units, oral, Daily enoxaparin, 40 mg, subcutaneous, q24h [Held by provider] lisinopril, 2.5 mg, oral, Daily pantoprazole, 20 mg, oral, Daily before breakfast polyethylene glycol, 17 g, oral, Daily Continuous medications PRN medications PRN medications: acetaminophen, busPIRone, ondansetron, oxyCODONE Assessment/Plan Principal Problem: Cellulitis Jayna Smith is a 37 y.o. female presenting with left ankle and right index and middle finger wounds. She has a PMHX HTN, DM type II, raynauds, chronic leg wounds. She told the ED that her leg wound was healing and that her dog jumped up on her and scratched her and opened it up. To me she was recently at her PCP office and was told to come to the ED due to it looking worse and they felt that it needed IV antibiotics. She was placed on Augmentin yesterday at PCP office but didn't take it yet. She states that this started about 2 years ago due to having poison param and they getting a tattoo over the area. She was seen at [facility] and didn't like how they were treating her leg so she stopped going to them and has not had further treatment since. Vik: AM labs ordered Chronic left lower leg wound with cellulitis -Podiatry consulted-appreciate recommendations -Wound care per podiatry's recommendations -Wound culture finalized showing MSSA -DC'd cefazolin and changed to Bactrim per sensitivity results -Patient will need follow-up with podiatry at discharge Hypertension -Lisinopril on hold secondary to blood pressure being in the low 100s DVT prophylaxis -Continue Lovenox Discharge disposition: Anticipate discharge in 24 hours pending clinical course Taylor Gibson APRN-CUSTOMER ENGINEER Jayna Smith is a 37 y.o. female on day 0 of admission presenting with Cellulitis. Subjective This patient was seen bedside for left leg ulcer and cellulitis. Her leg is painful. She denies fever, chills, nausea, vomiting. Objective Alert and oriented Integument: Skin turgor is thin and atrophic without infection, ecchymosiss, erythema, purulence, streaking, odor or necrosis. Skin discontinuity is noted to anterior left leg is deep, granular and fibrous without bogginess or fluctuance noted. No odor. There is rubrous and erythema surround. No skin tenting or blisters Vascular: Capillary fill time is brisk and less than 3 seconds to all digits. Hair is not present to lower extremities. Lower extremity edema. DP and PT pulses are palpable dp and non palpable pt bilateral. Neurological: Epicritic sensation is intact via light touch to lower extremities equal. Negative Babinski. Negative clonus. Musculoskeletal: Active range of motion digits bilateral. No pain with passive range of motion of digits, midfoot, subtalar, ankle joints bilateral.5/5 ankle muscle strength in all directions. Negative Lisa and Flores sign. Pain on palpation to left leg ulcer. Last Recorded Vitals Blood pressure 103/74, pulse 79, temperature 35.9 C (96.6 F), temperature source Temporal, resp. rate 18, height 1.727 m (5' 7.99), weight 81.6 kg (180 lb), SpO2 90 %. Intake/Output last 3 Shifts: I/O last 3 completed shifts: In: 650 (8 mL/kg) [P.O.:450; IV Piggyback:200] Out: - (0 mL/kg) Weight: 81.6 kg Relevant Results WBC 10 CT leg left- no underlying tibia erosion. Diffuse edematous change to calf and ankle consistent with cellulitis. Deep ulcer anterior lower calf Leg xray left - no acute fractures or dislocations, soft tissue emphysema, or foreign body. Edema noted. Wound culture left leg - abundant staphylococcus aureus Blood cultures - no growth so far, final pending CRP 0.99 ESR 27 Assessment/Plan Principal Problem: Cellulitis I reviewed and discussed the case including diagnostic data. The following care recommendations and intervention was performed: Dressing care: aquacel ag, gauze, abd, kerlix. Wash with soap and water Offloading: avoid direct pressure on ulcer Weightbearing status: as tolerated Infection management: blood and wound culture pending. Additional limb surgery is not planned at this time. Continue cefazolin and vanco. Vascular work-up: ordered lower extremity non invasive vascular studies Edema: elevation Healing optimization and nutrition: dejuan nutritional supplement ordered to optimize healing Additional diagnostic data: reviewed labs and will follow trends. CT scan and leg xrays reviewed. I will follow her while in house. Please call if questions. Felicia Barbosa DPM [facility] Contact via [employer] Jayna Smith is a 37 y.o. female on day 0 of admission presenting with Cellulitis. Subjective Patient examined at bedside. Patient is alert and oriented x 3 very pleasant female. Sitting up on the bed. Patient reports she has had this wound for several years but it was almost cleared up and then her dog scratched open it back up. She reports some pain to the area but denies any other associated symptoms at this time. Objective General Appearance: AAO x 3, not in acute distress Skin: skin color, texture, turgor normal; no suspicious rashes or lesions Eyes : PERRL, EOM's intact, conjunctiva pink ENT: no oral thrush, no pharyngeal erythema or exudates Neck: no JVD, no lymphadenopathy Respiratory: lungs CTA, no rhonchi, wheezing, or crackles Heart: RRR without murmur, gallop, or rubs, no ectopy Abdomen: Nondistended, positive bowel sounds, soft, nontender Extremities: no edema, ROM x 4 extremities Peripheral pulses: normal and present x 4 extremities Neuro: alert, coherent and conversant, no focal motor deficits Left lower leg is wrapped in Kerlix gauze at this time open wound noted via pictures in chart Wounds have an erythemic base with slight thinning noted. To the left inner ankle and left doherty area. Medications Scheduled medications ceFAZolin, 1 g, intravenous, q8h cholecalciferol, 1,000 Units, oral, Daily enoxaparin, 40 mg, subcutaneous, q24h lisinopril, 2.5 mg, oral, Daily pantoprazole, 20 mg, oral, Daily before breakfast polyethylene glycol, 17 g, oral, Daily Continuous medications PRN medications PRN medications: acetaminophen, busPIRone, dextrose 10 % in water (D10W), dextrose, glucagon, ondansetron, oxyCODONE-acetaminophen Last Recorded Vitals BP 112/83 (BP Location: Left arm, Patient Position: Lying) Pulse 76 Temp 36.2 C (97.2 F) (Temporal) Resp 18 Wt 81.6 kg (180 lb) SpO2 91% Admission Weight Weight: 81.6 kg (180 lb) (04/06/23 0849) Daily Weight 04/06/23 : 81.6 kg (180 lb) Lab Results Results for orders placed or performed during the hospital encounter of 04/06/23 (from the past 24 hour(s)) CBC Result Value Ref Range WBC 7.8 4.4 - 11.3 x10*3/uL nRBC 0.0 0.0 - 0.0 /100 WBCs RBC 5.24 (H) 4.00 - 5.20 x10*6/uL Hemoglobin 14.4 12.0 - 16.0 g/dL Hematocrit 47.6 (H) 36.0 - 46.0 % MCV 91 80 - 100 fL MCH 27.5 26.0 - 34.0 pg MCHC 30.3 (L) 32.0 - 36.0 g/dL RDW 15.4 (H) 11.5 - 14.5 % Platelets 158 150 - 450 x10*3/uL Basic metabolic panel Result Value Ref Range Glucose 110 (H) 74 - 99 mg/dL Sodium 137 136 - 145 mmol/L Potassium 4.4 3.5 - 5.3 mmol/L Chloride 107 98 - 107 mmol/L Bicarbonate 20 (L) 21 - 32 mmol/L Anion Gap 14 10 - 20 mmol/L Urea Nitrogen 16 6 - 23 mg/dL Creatinine 1.14 (H) 0.50 - 1.05 mg/dL eGFR 63 >60 mL/min/1.73m*2 Calcium 8.4 (L) 8.6 - 10.3 mg/dL Vancomycin, Trough Result Value Ref Range Vancomycin, Trough 13.5 5.0 - 20.0 ug/mL Image Results CT tibia fibula left w IV contrast Narrative: STUDY: CT Extremity; Completed Time: 04/06/2023 10:29 AM INDICATION: Wound of left tibia fibula. COMPARISON: None Available. ACCESSION NUMBER(S): [id number] ORDERING CLINICIAN: JOSUÉ IGLESIAS TECHNIQUE: Thin section axial images were obtained through the left tibia fibula with intravenous contrast. Orthogonal reconstructed images were obtained and reviewed. Omnipaque 350 70 mL was administered intravenously. Automated mA/kV exposure control was utilized and patient examination was performed in strict accordance with principles of ALARA. FINDINGS: Osseous structures demonstrate no evidence for acute fracture or dislocation. The tarsometatarsal joints are intact. There is focal calcific tendinosis involving the posterior tibialis. Distal Achilles is within normal limits. There is subcutaneous edema consistent with cellulitis. Along the plantar aspect of the patient's heel, there is a 1 cm Soft tissue density surrounding small central fluid density which may represent a small abscess. Clinical correlation is recommended. There is no calcaneal erosion. There is also prominent deep ulcer in the pretibial tissues measuring up to 1 cm in depth. No lytic or blastic tibial lesions. Varicosities noted within the subcutaneous tissues. Visualized calf muscles appear homogeneous in attenuation. Impression: Diffuse edematous change involving the calf and ankle consistent with cellulitis. Prominent deep ulcer along the anterior lower calf is observed. The underlying tibia shows no erosion. If there is high concern for osteomyelitis, correlate with MRI. 1 cm fluid density residing in the plantar aspect of the patients heel which may represent small abscess. Alternatively, this could represent a region of induration/decubitus change. No calcaneal erosions. Signed by Navjot Ruvalcaba MD Assessment/Plan Jayna Cezar Smith is a 37 y.o. female presenting with left ankle and right index and middle finger wounds. She has a PMHX HTN, DM type II, raynauds, chronic leg wounds. She told the ED that her leg wound was healing and that her dog jumped up on her and scratched her and opened it up. To me she was recently at her PCP office and was told to come to the ED due to it looking worse and they felt that it needed IV antibiotics. She was placed on Augmentin yesterday at PCP office but didn't take it yet. She states that this started about 2 years ago due to having poison param and they getting a tattoo over the area. She was seen at [facility] and didn't like how they were treating her leg so she stopped going to them and has not had further treatment since. Principal Problem: Cellulitis PLAN: Chronic left lower leg wound with associated cellulitis -consulted podiatry, appreciates, ordered leg xray, results are pending -wound culture prelim showing staph aureus -esr 27, crp 0.99 -blood cultures NTD -continue cefazolin and vanco, pharmacy dosing vanco -Continue wound care orders -Vascular ultrasound PVR pending -Tylenol and oxycodone for pain Essential hypertension -BP has been a little on the low end I will hold the lisinopril Anxiety - BuSpar 5 mg p.o. 3 times daily as needed Prediabetes -A1c 6.7 in November - Patient is adamant on refusing refusing any more blood sugar checks. Given the fact her blood sugars have been stable since admission I will DC the insulin sliding scale and Accu-Cheks. DVT prophylaxis: Lovenox subcu GI prophylaxis: Protonix 20 mg p.o. daily Bowel regimen: MiraLAX 17 g p.o. daily Dispo: Anticipate 24 to 48 hours depending on clinical course Viri Tamayo DNP-APRN-AGNP- Hospitalist Nurse Practitioner 04/07/23 1057 Discharge Planning Living Arrangements Spouse/significant other;Children Support Systems Spouse/significant other;Children Assistance Needed none Type of Residence Private residence Number of Stairs to Enter Residence 13 Number of Stairs Within Residence 0 Type of Animals or Pets 1 dog Who is requesting discharge planning? Provider Patient expects to be discharged to: return home Does the patient need discharge transport arranged? No Sw met with patient and introduced self and explained the role that CT has in the discharge process. Confirmed her address and also insurance,and she is able to get her prescriptions with her insurance. She does live with her S.O and also her 2 children in an upstairs apartment.She is concerned about being able to return to work as she works at [employer] and we discussed that the DR can provide an work excuse-however she will also need to follow up with her PCP. She does not use any community agencies. Plan is to return home when ready. Vancomycin Dosing by Pharmacy- INITIAL Jayna Smith is a 37 y.o. year old female who Pharmacy has been consulted for vancomycin dosing for cellulitis, skin and soft tissue. Based on the patient's indication and renal status this patient will be dosed based on a goal AUC of 400-600. Renal function is currently stable. Visit Vitals BP 118/87 (BP Location: Right arm, Patient Position: Other (Comment)) Comment (Patient Position): sitting up in bed Pulse 92 Temp 36.4 C (97.5 F) (Temporal) Resp 17 Lab Results Component Value Date CREATININE 0.93 04/06/2023 CREATININE 1.34 (H) 11/17/2022 CREATININE 1.45 (H) 10/01/2022 CREATININE 1.22 (H) 07/20/2022 CREATININE 1.24 (H) 11/28/2021 Patient weight is No results found for: PTWEIGHT No results found for: CULTURE No intake/output data recorded. @IOTHISSHIFT@ No results found for: PATIENTTEMP Assessment/Plan Patient has already been given a loading dose of 2000 mg. Will initiate vancomycin maintenance, 1000 mg every 12 hours. This dosing regimen is predicted by [employer] to result in the following pharmacokinetic parameters: Loading dose: 2000 mg given in ER Regimen: 1000 mg IV every 12 hours. Start time: 23:00 on 04/06/2023 Exposure target: AUC24 (range)400-600 mg/L.hr AUC24,ss: 493 mg/L.hr Probability of AUC24 > 400: 71 % Ctrough,ss: 15.5 mg/L Probability of Ctrough,ss > 20: 29 % Probability of nephrotoxicity (Lodise GAIL 2008): 11 % Follow-up level will be ordered on 04/07 at 0600 unless clinically indicated sooner. Will continue to monitor renal function daily while on vancomycin and order serum creatinine at least every 48 hours if not already ordered. Follow for continued vancomycin needs, clinical response, and signs/symptoms of toxicity. A Sunday Tc Patel documented in this encounter [facility] Work Phone: 04-09-2023 Plan of care note The patient's goals for the shift include The clinical goals for the shift include pain control [facility] 04-09-2023 Miscellaneous Notes The patient's goals for the shift include The clinical goals for the shift include pain control Care Transitions: Patient reviewed in care round meeting this AM and may be medically ready for discharge later today. Met with patient and significant other Mandeep at bedside. Discussed discharge plans. Verified plan is to return home, denies needs or in home services. She will follow up with Dr. Barbosa in her office for wound care to [facility] one week after discharge. No other needs anticipated. Care team to follow if needed. Leticia Chinchilla RN/TCC The patient's goals for the shift include The clinical goals for the shift include pain control Over the shift, the patient did not make progress toward the following goals. Barriers to progression include . Recommendations to address these barriers include . Pt pain controlled throughout shift with prn pain medication. Pt rested well through night The patient's goals for the shift include The clinical goals for the shift include education of importance of taking po antibiotics Over the shift, the patient did not make progress toward the following goals. Barriers to progression include . Recommendations to address these barriers include . The clinical goals for the shift include take antibiotics, and report pain for medication if needed. documented in this encounter [facility] Work Phone: 04-09-2023 Plan of care note Care Transitions: Patient reviewed in care round meeting this AM and may be medically ready for discharge later today. Met with patient and significant other Mandeep at bedside. Discussed discharge plans. Verified plan is to return home, denies needs or in home services. She will follow up with Dr. Barbosa in her office for wound care to [facility] one week after discharge. No other needs anticipated. Care team to follow if needed. Leticia Chinchilla RN/TCC [facility] 04-08-2023 Consult note Associated Order (s): Inpatient consult to Cardiology Inpatient consult to Cardiology Consult performed by: Antonio Hodge MD Consult ordered by: Taylor Gibson APRN-CUSTOMER ENGINEER Reason for consult: heart murmur History Of Present Illness: Mrs. Jayna Smith is a 37 y.o. former smoker female being consulted by the Cardiology team for heart murmur. Patient with prior medical history significant for hypertension, diabetes type II, Raynauds, heart murmur, chronic leg wounds. She was admitted to ED [facility] on 04/06/2023 due to infection in her leg. She stated that her leg wound was healing and that her dog jumped up on her and scratched her and opened it up. She was started on antibiotics - Augmentin, switched to Vanco + Zosyn. She had been previously seen at [facility] and didn't like how they were treating her leg so she stopped going to them and has not had further treatment since. She is able to ambulate and stand on her leg but only for a few min at a time. She denies chest pain, shortness of breath, palpitations, lightheadedness, headaches, fever, chills, orthopnea, paroxysmal nocturnal dyspnea or syncope. She endorses heart murmur. She was admitted for IV antibiotics therapy. Last Recorded Vitals: Vitals: 04/07/23 2100 04/08/23 0700 04/08/23 1500 04/08/232099 BP: 104/66 103/74 121/86 119/85 BP Location: Left arm Patient Position: Lying Pulse: 71 79 82 76 Resp: 20 18 18 18 Temp: 35.9 C (96.6 F) 35.9 C (96.6 F) 36.4 C (97.5 F) 36 C (96.8 F) TempSrc: Temporal Temporal SpO2: 90% 90% 90% Weight: Height: Last Labs: CBC - 04/08/2023: 5:04 AM 10.0 14.7 184 47.6 CMP - 04/08/2023: 5:04 AM 8.6 6.2 14 --- 1.3 _ 3.7 13 245 PTT - No results in last year. _ _ _ Troponin I Date/Time Value Ref Range Status 11/28/2021 10:44 PM 8 0 - 13 ng/L Final Comment: . Less than 99th percentile of normal range cutoff- Female and children under 18 years old <14 ng/L; Male <21 ng/L: Negative Repeat testing should be performed if clinically indicated. . Female and children under 18 years old 14-50 ng/L; Male 21-50 ng/L: Consistent with possible cardiac damage and possible increased clinical risk. Serial measurements may help to assess extent of myocardial damage. . >50 ng/L: Consistent with cardiac damage, increased clinical risk and myocardial infarction. Serial measurements may help assess extent of myocardial damage. . NOTE: Children less than 1 year old may have higher baseline troponin levels and results should be interpreted in conjunction with the overall clinical context. . NOTE: Troponin I testing is performed using a different testing methodology at [facility] than at other [facility]. Direct result comparisons should only be made within the same method. Hemoglobin A1C Date/Time Value Ref Range Status 11/17/2022 08:33 AM 6.7 (A) % Final Comment: Diagnosis of Diabetes-Adults Non-Diabetic: < or = 5.6% Increased risk for developing diabetes: 5.7-6.4% Diagnostic of diabetes: > or = 6.5% . Monitoring of Diabetes Age (y) Therapeutic Goal (%) Adults: >18 <7.0 Pediatrics: 13-18 <7.5 7-12 <8.0 0- 6 7.5-8.5 [place] Diabetes Association. Diabetes Care 33(S1), Mar 2009. 07/20/2022 09:26 AM 6.6 (A) % Final Comment: Diagnosis of Diabetes-Adults Non-Diabetic: < or = 5.6% Increased risk for developing diabetes: 5.7-6.4% Diagnostic of diabetes: > or = 6.5% . Monitoring of Diabetes Age (y) Therapeutic Goal (%) Adults: >18 <7.0 Pediatrics: 13-18 <7.5 7-12 <8.0 0- 6 7.5-8.5 [place] Diabetes Association. Diabetes Care 33(S1), Mar 2009. VLDL Date/Time Value Ref Range Status 07/20/2022 09:26 AM 17 0 - 40 mg/dL Final 10/19/2021 08:40 AM 56 (H) 0 - 40 mg/dL Final 03/21/2021 08:23 AM 43 (H) 0 - 40 mg/dL Final Last I/O: I/O last 3 completed shifts: In: 650 (8 mL/kg) [P.O.:450; IV Piggyback:200] Out: - (0 mL/kg) Weight: 81.6 kg Past Cardiology Tests (Last 3 Years): EKG: No results found for this or any previous visit from the past 1095 days. Echo: No results found for this or any previous visit from the past 1095 days. Ejection Fractions: No results found for: EF Cath: No results found for this or any previous visit from the past 1095 days. Stress Test: No results found for this or any previous visit from the past 1095 days. Cardiac Imaging: No results found for this or any previous visit from the past 1095 days. Past Medical History: She has a past medical history of Chlamydial infection, unspecified, Elevated LFTs (05/25/2022), Immunization not carried out because of patient refusal, LGSIL on Pap smear of cervix (07/20/2022), Other conditions influencing health status, and Other specified postprocedural states. Past Surgical History: She has a past surgical history that includes Other surgical history (11/29/2018); Other surgical history (06/02/2022); and Other surgical history (08/17/2014). Social History: She reports that she quit smoking 9 days ago. Her smoking use included cigarettes. She has a 1.00 pack-year smoking history. She has never used smokeless tobacco. She reports current alcohol use of about 2.0 standard drinks of alcohol per week. She reports current drug use. Drug: Marijuana. Family History: Family History Problem Relation Name Age of Onset No Known Problems Mother Osteoporosis Father Parkinsonism Mother's Sister Parkinsonism Maternal Grandmother Asthma Other Diabetes Other Hypertension Other Heart attack Other Allergies: Amlodipine Inpatient Medications: Scheduled medications Medication Dose Route Frequency cholecalciferol 1,000 Units oral Daily enoxaparin 40 mg subcutaneous q24h [Held by provider] lisinopril 2.5 mg oral Daily pantoprazole 20 mg oral Daily before breakfast polyethylene glycol 17 g oral Daily sulfamethoxazole-trimethoprim 160 mg oral q12h [place]ISE PRN medications Medication acetaminophen busPIRone ondansetron oxyCODONE Continuous Medications Medication Dose Last Rate Outpatient Medications: Current Outpatient Medications Medication Instructions amoxicillin-pot clavulanate (Augmentin) 875-125 mg tablet 875 mg, oral, 2 times daily ascorbic acid (VITAMIN C) 500 mg, oral, Daily busPIRone (BUSPAR) 5 mg, oral, 3 times daily PRN cholecalciferol (VITAMIN D3) 1,000 Units, oral, Daily lisinopril 2.5 mg tablet 1 tablet, oral, Daily loratadine (CLARITIN) 10 mg, oral, Daily PRN nitroglycerin (Nitro-Bid) 2 % ointment 0.5 inches, transdermal, Every 6 hours during day omeprazole (PRILOSEC) 20 mg, oral, Daily PRN silver sulfADIAZINE (Silvadene) 1 % cream Topical, 2 times daily zinc gluconate 50 mg tablet 50 mg of elemental zinc, oral, Daily Physical Exam: General: alert, oriented and in no acute distress HEENT: NC/AT; EOMI; PERRLA, external ear is normal Neck: supple; trachea midline; no masses; no JVD Chest: clear breath sounds bilaterally; no wheezing Cardio: regular rhythm, S1S2 normal, systolic murmur 2+/6+ LLSB Abdomen: Soft, non-tender, non-distension, no organomegaly Extremities: Cellulitis L leg Neuro: Grossly intact Psychiatric: Normal mood and affect Assessment/Plan Mrs. Jayna Smith is a 37 y.o. former smoker female being consulted by the Cardiology team for heart murmur. Patient with prior medical history significant for hypertension, diabetes type II, Raynauds, heart murmur, chronic leg wounds. She was admitted to ED [facility] on 04/06/2023 due to infection in her leg. She stated that her leg wound was healing and that her dog jumped up on her and scratched her and opened it up. She was started on antibiotics - Augmentin, switched to Vanco + Zosyn. She had been previously seen at [facility] and didn't like how they were treating her leg so she stopped going to them and has not had further treatment since. She is able to ambulate and stand on her leg but only for a few min at a time. She denies chest pain, shortness of breath, palpitations, lightheadedness, headaches, fever, chills, orthopnea, paroxysmal nocturnal dyspnea or syncope. She endorses heart murmur. She was admitted for IV antibiotics therapy. Assessment # Heart murmur - Patient endorses heart murmur for many years - Unlikely to be related to infection at this point - Would suggest echocardiogram - Please refer the patient to Cardiology clinic as outpatient # Cellulitis Left leg - Keep broad spectrum antibiotics # Hypertension - Controlled blood pressure. - Keep home medication with Lisinopril 2.5mg daily. - Patient counseled to keep a healthy lifestyle including low-sodium diet. - Goal of BP < 130/80mmHg. # Diabetes - Prior A1c 6.7 - Keep home medication - ISS Thank you for allowing me to participate in the care of this patient. Please reach me out if you have any questions or if you need any clarifications regarding the patient's care. Peripheral IV 20 G Left;Ventral Forearm (Active) Site Assessment Clean;Dry;Intact 04/08/232244 Dressing Type Transparent 04/08/232244 Line Status Saline locked 04/08/232244 Dressing Status Clean;Dry 04/08/232244 Number of days: Code Status: Full Code Antonio Hodge MD [facility] Work Phone: 04-08-2023 Consult note Associated Order (s): Inpatient consult to Cardiology Inpatient consult to Cardiology Consult performed by: Antonio Hodge MD Consult ordered by: Taylor Gibson, [employer] SAL[employer] ASSOCIATE-CUSTOMER ENGINEER Reason for consult: heart murmur History Of Present Illness: Mrs. Jayna Smith is a 37 y.o. former smoker female being consulted by the Cardiology team for heart murmur. Patient with prior medical history significant for hypertension, diabetes type II, Raynauds, heart murmur, chronic leg wounds. She was admitted to ED [facility] on 04/06/2023 due to infection in her leg. She stated that her leg wound was healing and that her dog jumped up on her and scratched her and opened it up. She was started on antibiotics - Augmentin, switched to Vanco + Zosyn. She had been previously seen at [facility] and didn't like how they were treating her leg so she stopped going to them and has not had further treatment since. She is able to ambulate and stand on her leg but only for a few min at a time. She denies chest pain, shortness of breath, palpitations, lightheadedness, headaches, fever, chills, orthopnea, paroxysmal nocturnal dyspnea or syncope. She endorses heart murmur. She was admitted for IV antibiotics therapy. Last Recorded Vitals: Vitals: 04/07/23 2100 04/08/23 0700 04/08/23 1500 04/08/232099 BP: 104/66 103/74 121/86 119/85 BP Location: Left arm Patient Position: Lying Pulse: 71 79 82 76 Resp: 20 18 18 18 Temp: 35.9 C (96.6 F) 35.9 C (96.6 F) 36.4 C (97.5 F) 36 C (96.8 F) TempSrc: Temporal Temporal SpO2: 90% 90% 90% Weight: Height: Last Labs: CBC - 04/08/2023: 5:04 AM 10.0 14.7 184 47.6 CMP - 04/08/2023: 5:04 AM 8.6 6.2 14 --- 1.3 _ 3.7 13 245 PTT - No results in last year. _ _ _ Troponin I Date/Time Value Ref Range Status 11/28/2021 10:44 PM 8 0 - 13 ng/L Final Comment: . Less than 99th percentile of normal range cutoff- Female and children under 18 years old <14 ng/L; Male <21 ng/L: Negative Repeat testing should be performed if clinically indicated. . Female and children under 18 years old 14-50 ng/L; Male 21-50 ng/L: Consistent with possible cardiac damage and possible increased clinical risk. Serial measurements may help to assess extent of myocardial damage. . >50 ng/L: Consistent with cardiac damage, increased clinical risk and myocardial infarction. Serial measurements may help assess extent of myocardial damage. . NOTE: Children less than 1 year old may have higher baseline troponin levels and results should be interpreted in conjunction with the overall clinical context. . NOTE: Troponin I testing is performed using a different testing methodology at [facility] than at other [facility]. Direct result comparisons should only be made within the same method. Hemoglobin A1C Date/Time Value Ref Range Status 11/17/2022 08:33 AM 6.7 (A) % Final Comment: Diagnosis of Diabetes-Adults Non-Diabetic: < or = 5.6% Increased risk for developing diabetes: 5.7-6.4% Diagnostic of diabetes: > or = 6.5% . Monitoring of Diabetes Age (y) Therapeutic Goal (%) Adults: >18 <7.0 Pediatrics: 13-18 <7.5 7-12 <8.0 0- 6 7.5-8.5 [place] Diabetes Association. Diabetes Care 33(S1)Mar 2009. 07/20/2022 09:26 AM 6.6 (A) % Final Comment: Diagnosis of Diabetes-Adults Non-Diabetic: < or = 5.6% Increased risk for developing diabetes: 5.7-6.4% Diagnostic of diabetes: > or = 6.5% . Monitoring of Diabetes Age (y) Therapeutic Goal (%) Adults: >18 <7.0 Pediatrics: 13-18 <7.5 7-12 <8.0 0- 6 7.5-8.5 [place] Diabetes Association. Diabetes Care 33(S1), Mar 2009. VLDL Date/Time Value Ref Range Status 07/20/2022 09:26 AM 17 0 - 40 mg/dL Final 10/19/2021 08:40 AM 56 (H) 0 - 40 mg/dL Final 03/21/2021 08:23 AM 43 (H) 0 - 40 mg/dL Final Last I/O: I/O last 3 completed shifts: In: 650 (8 mL/kg) [P.O.:450; IV Piggyback:200] Out: - (0 mL/kg) Weight: 81.6 kg Past Cardiology Tests (Last 3 Years): EKG: No results found for this or any previous visit from the past 1095 days. Echo: No results found for this or any previous visit from the past 1095 days. Ejection Fractions: No results found for: EF Cath: No results found for this or any previous visit from the past 1095 days. Stress Test: No results found for this or any previous visit from the past 1095 days. Cardiac Imaging: No results found for this or any previous visit from the past 1095 days. Past Medical History: She has a past medical history of Chlamydial infection, unspecified, Elevated LFTs (05/25/2022), Immunization not carried out because of patient refusal, LGSIL on Pap smear of cervix (07/20/2022), Other conditions influencing health status, and Other specified postprocedural states. Past Surgical History: She has a past surgical history that includes Other surgical history (11/29/2018); Other surgical history (06/02/2022); and Other surgical history (08/17/2014). Social History: She reports that she quit smoking 9 days ago. Her smoking use included cigarettes. She has a 1.00 pack-year smoking history. She has never used smokeless tobacco. She reports current alcohol use of about 2.0 standard drinks of alcohol per week. She reports current drug use. Drug: Marijuana. Family History: Family History Problem Relation Name Age of Onset No Known Problems Mother Osteoporosis Father Parkinsonism Mother's Sister Parkinsonism Maternal Grandmother Asthma Other Diabetes Other Hypertension Other Heart attack Other Allergies: Amlodipine Inpatient Medications: Scheduled medications Medication Dose Route Frequency cholecalciferol 1,000 Units oral Daily enoxaparin 40 mg subcutaneous q24h [Held by provider] lisinopril 2.5 mg oral Daily pantoprazole 20 mg oral Daily before breakfast polyethylene glycol 17 g oral Daily sulfamethoxazole-trimethoprim 160 mg oral q12h LOUISE PRN medications Medication acetaminophen busPIRone ondansetron oxyCODONE Continuous Medications Medication Dose Last Rate Outpatient Medications: Current Outpatient Medications Medication Instructions amoxicillin-pot clavulanate (Augmentin) 875-125 mg tablet 875 mg, oral, 2 times daily ascorbic acid (VITAMIN C) 500 mg, oral, Daily busPIRone (BUSPAR) 5 mg, oral, 3 times daily PRN cholecalciferol (VITAMIN D3) 1,000 Units, oral, Daily lisinopril 2.5 mg tablet 1 tablet, oral, Daily loratadine (CLARITIN) 10 mg, oral, Daily PRN nitroglycerin (Nitro-Bid) 2 % ointment 0.5 inches, transdermal, Every 6 hours during day omeprazole (PRILOSEC) 20 mg, oral, Daily PRN silver sulfADIAZINE (Silvadene) 1 % cream Topical, 2 times daily zinc gluconate 50 mg tablet 50 mg of elemental zinc, oral, Daily Physical Exam: General: alert, oriented and in no acute distress HEENT: NC/AT; EOMI; PERRLA, external ear is normal Neck: supple; trachea midline; no masses; no JVD Chest: clear breath sounds bilaterally; no wheezing Cardio: regular rhythm, S1S2 normal, systolic murmur 2+/6+ LLSB Abdomen: Soft, non-tender, non-distension, no organomegaly Extremities: Cellulitis L leg Neuro: Grossly intact Psychiatric: Normal mood and affect Assessment/Plan Mrs. Jayna Smith is a 37 y.o. former smoker female being consulted by the Cardiology team for heart murmur. Patient with prior medical history significant for hypertension, diabetes type II, Raynauds, heart murmur, chronic leg wounds. She was admitted to ED [facility] on 04/06/2023 due to infection in her leg. She stated that her leg wound was healing and that her dog jumped up on her and scratched her and opened it up. She was started on antibiotics - Augmentin, switched to Vanco + Zosyn. She had been previously seen at [facility] and didn't like how they were treating her leg so she stopped going to them and has not had further treatment since. She is able to ambulate and stand on her leg but only for a few min at a time. She denies chest pain, shortness of breath, palpitations, lightheadedness, headaches, fever, chills, orthopnea, paroxysmal nocturnal dyspnea or syncope. She endorses heart murmur. She was admitted for IV antibiotics therapy. Assessment # Heart murmur - Patient endorses heart murmur for many years - Unlikely to be related to infection at this point - Would suggest echocardiogram - Please refer the patient to Cardiology clinic as outpatient # Cellulitis Left leg - Keep broad spectrum antibiotics # Hypertension - Controlled blood pressure. - Keep home medication with Lisinopril 2.5mg daily. - Patient counseled to keep a healthy lifestyle including low-sodium diet. - Goal of BP < 130/80mmHg. # Diabetes - Prior A1c 6.7 - Keep home medication - ISS Thank you for allowing me to participate in the care of this patient. Please reach me out if you have any questions or if you need any clarifications regarding the patient's care. Peripheral IV 20 G Left;Ventral Forearm (Active) Site Assessment Clean;Dry;Intact 04/08/232244 Dressing Type Transparent 04/08/232244 Line Status Saline locked 04/08/232244 Dressing Status Clean;Dry 04/08/232244 Number of days: Code Status: Full Code Antonio Hodge MD Consults Reason For Consult Left leg chronic wound History Of Present Illness Jayna Smith is a 37 y.o. female was seen bedside for left chronic leg wound with an onset of about 2 years ago. She reports various onset such as having poison param or getting scratched by a dog. She was seen at the wound care center but stopped going because the debridements were too painful. She applies gauze to the wound at home. She does report some rest limb pain and not distinct claudication. She denies rest parasthesias. Her pain is moderate to severe and is aggravated with direct touch. Past Medical History She has a past medical history of Chlamydial infection, unspecified, Elevated LFTs (05/25/2022), Immunization not carried out because of patient refusal, LGSIL on Pap smear of cervix (07/20/2022), Other conditions influencing health status, and Other specified postprocedural states. Surgical History She has a past surgical history that includes Other surgical history (11/29/2018); Other surgical history (06/02/2022); and Other surgical history (08/17/2014). Social History She reports that she quit smoking 7 days ago. Her smoking use included cigarettes. She has a 1.00 pack-year smoking history. She has never used smokeless tobacco. She reports current alcohol use of about 2.0 standard drinks of alcohol per week. She reports current drug use. Drug: Marijuana. Family History Family History Problem Relation Name Age of Onset No Known Problems Mother Osteoporosis Father Parkinsonism Mother's Sister Parkinsonism Maternal Grandmother Asthma Other Diabetes Other Hypertension Other Heart attack Other Allergies Amlodipine Review of Systems REVIEW OF SYSTEMS Denies fever, chills, nausea, vomiting Denies claudication Denies parasthesias at rest Rest per hpi Physical Exam Alert and oriented Integument: Skin turgor is thin and atrophic without infection, ecchymosiss, erythema, purulence, streaking, odor or necrosis. Skin discontinuity is noted to anterior left leg is deep, granular and fibrous without bogginess or fluctuance noted. No odor. There is rubrous and erythema surround. No skin tenting or blisters Vascular: Capillary fill time is brisk and less than 3 seconds to all digits. Hair is not present to lower extremities. Lower extremity edema. DP and PT pulses are palpable dp and non palpable pt bilateral. Neurological: Epicritic sensation is intact via light touch to lower extremities equal. Negative Babinski. Negative clonus. Musculoskeletal: Active range of motion digits bilateral. No pain with passive range of motion of digits, midfoot, subtalar, ankle joints bilateral.5/5 ankle muscle strength in all directions. Negative Lisa and Flores sign. Pain on palpation to left leg ulcer. Last Recorded Vitals Blood pressure 111/74, pulse 103, temperature 36.4 C (97.5 F), temperature source Temporal, resp. rate 18, height 1.727 m (5' 7.99), weight 81.6 kg (180 lb), SpO2 92 %. Relevant Results WBC 5.8 CT leg left- no underlying tibia erosion. Diffuse edematous change to calf and ankle consistent with cellulitis. Deep ulcer anterior lower calf Wound culture left leg - pending Blood cultures - no growth so far, final pending CRP 0.99 ESR 27 Assessment/Plan I reviewed and discussed the case including diagnostic data. The following care recommendations and intervention was performed: Dressing care: aquacel ag, gauze, abd, kerlix. Wash with soap and water Offloading: avoid direct pressure on ulcer Weightbearing status: as tolerated Infection management: blood and wound culture pending. Additional limb surgery is not planned at this time. Continue cefazolin and vanco. Vascular work-up: ordered lower extremity non invasive vascular studies Edema: elevation Healing optimization and nutrition: dejuan nutritional supplement ordered to optimize healing Additional diagnostic data: reviewed labs and will follow trends. CT scan leg reviewed. Will also order leg xray. Thank you for the consult. I will follow her while in house. Please call if questions. Felicia Barbosa DPM FACFAS [facility] Contact via [employer] documented in this encounter [facility] Work Phone: 04-08-2023 Plan of care note The patient's goals for the shift include The clinical goals for the shift include pain control Over the shift, the patient did not make progress toward the following goals. Barriers to progression include . Recommendations to address these barriers include . [facility] 04-08-2023 Plan of care note Pt pain controlled throughout shift with prn pain medication. Pt rested well through night [facility] 04-07-2023 Plan of care note The patient's goals for the shift include The clinical goals for the shift include education of importance of taking po antibiotics Over the shift, the patient did not make progress toward the following goals. Barriers to progression include . Recommendations to address these barriers include . [facility] Work Phone: 04-06-2023 Consult note Formatting of th is note is different from the original. Consults Reason For Consult Left leg chronic wound History Of Present Illness Jayna Smith is a 37 y.o. female was seen bedside for left chronic leg wound with an onset of about 2 years ago. She reports various onset such as having poison param or getting scratched by a dog. She was seen at the wound care center but stopped going because the debridements were too painful. She applies gauze to the wound at home. She does report some rest limb pain and not distinct claudication. She denies rest parasthesias. Her pain is moderate to severe and is aggravated with direct touch. Past Medical History She has a past medical history of Chlamydial infection, unspecified, Elevated LFTs (05/25/2022), Immunization not carried out because of patient refusal, LGSIL on Pap smear of cervix (07/20/2022), Other conditions influencing health status, and Other specified postprocedural states. Surgical History She has a past surgical history that includes Other surgical history (11/29/2018); Other surgical history (06/02/2022); and Other surgical history (08/17/2014). Social History She reports that she quit smoking 7 days ago. Her smoking use included cigarettes. She has a 1.00 pack-year smoking history. She has never used smokeless tobacco. She reports current alcohol use of about 2.0 standard drinks of alcohol per week. She reports current drug use. Drug: Marijuana. Family History Family History Problem Relation Name Age of Onset No Known Problems Mother Osteoporosis Father Parkinsonism Mother's Sister Parkinsonism Maternal Grandmother Asthma Other Diabetes Other Hypertension Other Heart attack Other Allergies Amlodipine Review of Systems REVIEW OF SYSTEMS Denies fever, chills, nausea, vomiting Denies claudication Denies parasthesias at rest Rest per hpi Physical Exam Alert and oriented Integument: Skin turgor is thin and atrophic without infection, ecchymosiss, erythema, purulence, streaking, odor or necrosis. Skin discontinuity is noted to anterior left leg is deep, granular and fibrous without bogginess or fluctuance noted. No odor. There is rubrous and erythema surround. No skin tenting or blisters Vascular: Capillary fill time is brisk and less than 3 seconds to all digits. Hair is not present to lower extremities. Lower extremity edema. DP and PT pulses are palpable dp and non palpable pt bilateral. Neurological: Epicritic sensation is intact via light touch to lower extremities equal. Negative Babinski. Negative clonus. Musculoskeletal: Active range of motion digits bilateral. No pain with passive range of motion of digits, midfoot, subtalar, ankle joints bilateral.5/5 ankle muscle strength in all directions. Negative Lisa and Flores sign. Pain on palpation to left leg ulcer. Last Recorded Vitals Blood pressure 111/74, pulse 103, temperature 36.4 C (97.5 F), temperature source Temporal, resp. rate 18, height 1.727 m (5' 7.99), weight 81.6 kg (180 lb), SpO2 92 %. Relevant Results WBC 5.8 CT leg left- no underlying tibia erosion. Diffuse edematous change to calf and ankle consistent with cellulitis. Deep ulcer anterior lower calf Wound culture left leg - pending Blood cultures - no growth so far, final pending CRP 0.99 ESR 27 Assessment/Plan I reviewed and discussed the case including diagnostic data. The following care recommendations and intervention was performed: Dressing care: aquacel ag, gauze, abd, kerlix. Wash with soap and water Offloading: avoid direct pressure on ulcer Weightbearing status: as tolerated Infection management: blood and wound culture pending. Additional limb surgery is not planned at this time. Continue cefazolin and vanco. Vascular work-up: ordered lower extremity non invasive vascular studies Edema: elevation Healing optimization and nutrition: dejuan nutritional supplement ordered to optimize healing Additional diagnostic data: reviewed labs and will follow trends. CT scan leg reviewed. Will also order leg xray. Thank you for the consult. I will follow her while in house. Please call if questions. Felicia Barbosa DPM [facility] Contact via [employer] [facility] Work Phone: 04-06-2023 Plan of care note The clinical goals for the shift include take antibiotics, and report pain for medication if needed. [facility] Work Phone: 04-06-2023 History and physical note History Of Present Illness Jayna Smith is a 37 y.o. female presenting with left ankle and right index and middle finger wounds. She has a PMHX HTN, DM type II, raynauds, chronic leg wounds. She told the ED that her leg wound was healing and that her dog jumped up on her and scratched her and opened it up. To me she was recently at her PCP office and was told to come to the ED due to it looking worse and they felt that it needed IV antibiotics. She was placed on Augmentin yesterday at PCP office but didn't take it yet. She states that this started about 2 years ago due to having poison param and they getting a tattoo over the area. She was seen at [facility] and didn't like how they were treating her leg so she stopped going to them and has not had further treatment since. She is able to ambulate and stand on her leg but only for a few min at a time. She currently denies any fever, chills, nausea, vomiting. WBC 5.8, lactate 0.8, CRP 0.99, sed rate 27 Past Medical History Past Medical History: Diagnosis Date Chlamydial infection, unspecified Chlamydia Elevated LFTs 05/25/2022 Immunization not carried out because of patient refusal Influenza vaccination declined LGSIL on Pap smear of cervix 07/20/2022 Other conditions influencing health status History of Other specified postprocedural states History of Papanicolaou smear Surgical History Past Surgical History: Procedure Laterality Date OTHER SURGICAL HISTORY 11/29/2018 Oral surgery OTHER SURGICAL HISTORY 06/02/2022 Colposcopy OTHER SURGICAL HISTORY 08/17/2014 Loop electrosurgical excision procedure Social History She reports that she has quit smoking. Her smoking use included cigarettes. She smoked an average of 1 pack per day. She has never used smokeless tobacco. She reports current alcohol use. She reports current drug use. Drug: Marijuana. Family History Family History Problem Relation Name Age of Onset No Known Problems Mother Osteoporosis Father Parkinsonism Mother's Sister Parkinsonism Maternal Grandmother Asthma Other Diabetes Other Hypertension Other Heart attack Other Allergies Amlodipine Review of Systems Skin: Positive for color change and wound. All other systems reviewed and are negative. Physical Exam General Appearance: AAO x 3, not in acute distress, drowsy from pain medication in ED Skin: left leg wound with erythema slough and some necrotic area, hands have bluish tint due to raynauds Eyes : PERRL, EOM's intact ENT: mucous membranes pink and moist Head: normocephalic, atraumatic Respiratory: lungs clear to auscultation anteriorly Heart: regular rate and rhythm Abdomen: Nondistended, positive bowel sounds x4, soft, nontender Extremities: no edema noted to reymundo lower ext, Peripheral pulses: normal x4 extremities Neuro: alert, coherent and conversant, no focal motor deficits Last Recorded Vitals Blood pressure 118/87, pulse 92, temperature 36.4 C (97.5 F), temperature source Temporal, resp. rate 17, height 1.727 m (5' 7.99), weight 81.6 kg (180 lb), SpO2 98 %. Relevant Results Results for orders placed or performed during the hospital encounter of 04/06/23 (from the past 24 hour(s)) CBC and Auto Differential Result Value Ref Range WBC 5.8 4.4 - 11.3 x10*3/uL nRBC 0.0 0.0 - 0.0 /100 WBCs RBC 5.00 4.00 - 5.20 x10*6/uL Hemoglobin 14.2 12.0 - 16.0 g/dL Hematocrit 44.5 36.0 - 46.0 % MCV 89 80 - 100 fL MCH 28.4 26.0 - 34.0 pg MCHC 31.9 (L) 32.0 - 36.0 g/dL RDW 15.5 (H) 11.5 - 14.5 % Platelets 143 (L) 150 - 450 x10*3/uL Neutrophils % 69.7 40.0 - 80.0 % Immature Granulocytes %, Automated 0.2 0.0 - 0.9 % Lymphocytes % 17.9 13.0 - 44.0 % Monocytes % 9.3 2.0 - 10.0 % Eosinophils % 2.2 0.0 - 6.0 % Basophils % 0.7 0.0 - 2.0 % Neutrophils Absolute 4.04 1.20 - 7.70 x10*3/uL Immature Granulocytes Absolute, Automated 0.01 0.00 - 0.70 x10*3/uL Lymphocytes Absolute 1.04 (L) 1.20 - 4.80 x10*3/uL Monocytes Absolute 0.54 0.10 - 1.00 x10*3/uL Eosinophils Absolute 0.13 0.00 - 0.70 x10*3/uL Basophils Absolute 0.04 0.00 - 0.10 x10*3/uL Comprehensive Metabolic Panel Result Value Ref Range Glucose 107 (H) 74 - 99 mg/dL Sodium 140 136 - 145 mmol/L Potassium 3.9 3.5 - 5.3 mmol/L Chloride 108 (H) 98 - 107 mmol/L Bicarbonate 24 21 - 32 mmol/L Anion Gap 12 10 - 20 mmol/L Urea Nitrogen 14 6 - 23 mg/dL Creatinine 0.93 0.50 - 1.05 mg/dL eGFR 80 >60 mL/min/1.73m*2 Calcium 9.0 8.6 - 10.3 mg/dL Albumin 3.7 3.4 - 5.0 g/dL Alkaline Phosphatase 245 (H) 33 - 110 U/L Total Protein 6.2 (L) 6.4 - 8.2 g/dL AST 14 9 - 39 U/L Bilirubin, Total 1.3 (H) 0.0 - 1.2 mg/dL ALT 13 7 - 45 U/L Lactate Result Value Ref Range Lactate 0.8 0.4 - 2.0 mmol/L C-Reactive Protein Result Value Ref Range C-Reactive Protein 0.99 <1.00 mg/dL Sedimentation Rate Result Value Ref Range Sedimentation Rate 27 (H) 0 - 20 mm/h SST TOP Result Value Ref Range Extra Tube Hold for add-ons. CT tibia fibula left w IV contrast Result Date: 04/06/2023 STUDY: CT Extremity; Completed Time: 04/06/2023 10:29 AM INDICATION: Wound of left tibia fibula. COMPARISON: None Available. ACCESSION NUMBER(S): [id number] ORDERING CLINICIAN: JOSUÉ IGLESIAS TECHNIQUE: Thin section axial images were obtained through the left tibia fibula with intravenous contrast. Orthogonal reconstructed images were obtained and reviewed. Omnipaque 350 70 mL was administered intravenously. Automated mA/kV exposure control was utilized and patient examination was performed in strict accordance with principles of ALARA. FINDINGS: Osseous structures demonstrate no evidence for acute fracture or dislocation. The tarsometatarsal joints are intact. There is focal calcific tendinosis involving the posterior tibialis. Distal Achilles is within normal limits. There is subcutaneous edema consistent with cellulitis. Along the plantar aspect of the patient's heel, there is a 1 cm Soft tissue density surrounding small central fluid density which may represent a small abscess. Clinical correlation is recommended. There is no calcaneal erosion. There is also prominent deep ulcer in the pretibial tissues measuring up to 1 cm in depth. No lytic or blastic tibial lesions. Varicosities noted within the subcutaneous tissues. Visualized calf muscles appear homogeneous in attenuation. Diffuse edematous change involving the calf and ankle consistent with cellulitis. Prominent deep ulcer along the anterior lower calf is observed. The underlying tibia shows no erosion. If there is high concern for osteomyelitis, correlate with MRI. 1 cm fluid density residing in the plantar aspect of the patients heel which may represent small abscess. Alternatively, this could represent a region of induration/decubitus change. No calcaneal erosions. Signed by Navjot Ruvalcaba MD Assessment/Plan Principal Problem: Cellulitis Jayna Smith is a 37 y.o. female presenting with left ankle and right index and middle finger wounds. She has a PMHX HTN, DM type II, raynauds, chronic leg wounds. She told the ED that her leg wound was healing and that her dog jumped up on her and scratched her and opened it up. To me she was recently at her PCP office and was told to come to the ED due to it looking worse and they felt that it needed IV antibiotics. She was placed on Augmentin yesterday at PCP office but didn't take it yet. She states that this started about 2 years ago due to having poison param and they getting a tattoo over the area. She was seen at [facility] and didn't like how they were treating her leg so she stopped going to them and has not had further treatment since. She is able to ambulate and stand on her leg but only for a few min at a time. She currently denies any fever, chills, nausea, vomiting. WBC 5.8, lactate 0.8, CRP 0.99, sed rate 27 #Cellulitis -WBC 5.8, lactate 0.8 -pt given iv vanco and zosyn in ed, will continue at this time -cultures sent from ed -Podiatry consulted appreciate recommendations -continue pain medication, due to pt being so drowsy with conversation will only do oral medication at this time -due to long hx of wounds and pt non-compliance with care will await for podiatry recommendations, but at this time pt likely will stay obs status #DM -pt states that she is not on any medication at home -last hgba1c 6.7 11/17/22 -continue accuchecks -SSI #HTN -continue home medication I spent 50 minutes in the professional and overall care of this patient. KHOA Estevez [facility] Work Phone: 04-06-2023 History and physical note History Of Present Illness Jayna Smith is a 37 y.o. female presenting with left ankle and right index and middle finger wounds. She has a PMHX HTN, DM type II, raynauds, chronic leg wounds. She told the ED that her leg wound was healing and that her dog jumped up on her and scratched her and opened it up. To me she was recently at her PCP office and was told to come to the ED due to it looking worse and they felt that it needed IV antibiotics. She was placed on Augmentin yesterday at PCP office but didn't take it yet. She states that this started about 2 years ago due to having poison param and they getting a tattoo over the area. She was seen at [facility] and didn't like how they were treating her leg so she stopped going to them and has not had further treatment since. She is able to ambulate and stand on her leg but only for a few min at a time. She currently denies any fever, chills, nausea, vomiting. WBC 5.8, lactate 0.8, CRP 0.99, sed rate 27 Past Medical History Past Medical History: Diagnosis Date Chlamydial infection, unspecified Chlamydia Elevated LFTs 05/25/2022 Immunization not carried out because of patient refusal Influenza vaccination declined LGSIL on Pap smear of cervix 07/20/2022 Other conditions influencing health status History of Other specified postprocedural states History of Papanicolaou smear Surgical History Past Surgical History: Procedure Laterality Date OTHER SURGICAL HISTORY 11/29/2018 Oral surgery OTHER SURGICAL HISTORY 06/02/2022 Colposcopy OTHER SURGICAL HISTORY 08/17/2014 Loop electrosurgical excision procedure Social History She reports that she has quit smoking. Her smoking use included cigarettes. She smoked an average of 1 pack per day. She has never used smokeless tobacco. She reports current alcohol use. She reports current drug use. Drug: Marijuana. Family History Family History Problem Relation Name Age of Onset No Known Problems Mother Osteoporosis Father Parkinsonism Mother's Sister Parkinsonism Maternal Grandmother Asthma Other Diabetes Other Hypertension Other Heart attack Other Allergies Amlodipine Review of Systems Skin: Positive for color change and wound. All other systems reviewed and are negative. Physical Exam General Appearance: AAO x 3, not in acute distress, drowsy from pain medication in ED Skin: left leg wound with erythema slough and some necrotic area, hands have bluish tint due to raynauds Eyes : PERRL, EOM's intact ENT: mucous membranes pink and moist Head: normocephalic, atraumatic Respiratory: lungs clear to auscultation anteriorly Heart: regular rate and rhythm Abdomen: Nondistended, positive bowel sounds x4, soft, nontender Extremities: no edema noted to reymundo lower ext, Peripheral pulses: normal x4 extremities Neuro: alert, coherent and conversant, no focal motor deficits Last Recorded Vitals Blood pressure 118/87, pulse 92, temperature 36.4 C (97.5 F), temperature source Temporal, resp. rate 17, height 1.727 m (5' 7.99), weight 81.6 kg (180 lb), SpO2 98 %. Relevant Results Results for orders placed or performed during the hospital encounter of 04/06/23 (from the past 24 hour(s)) CBC and Auto Differential Result Value Ref Range WBC 5.8 4.4 - 11.3 x10*3/uL nRBC 0.0 0.0 - 0.0 /100 WBCs RBC 5.00 4.00 - 5.20 x10*6/uL Hemoglobin 14.2 12.0 - 16.0 g/dL Hematocrit 44.5 36.0 - 46.0 % MCV 89 80 - 100 fL MCH 28.4 26.0 - 34.0 pg MCHC 31.9 (L) 32.0 - 36.0 g/dL RDW 15.5 (H) 11.5 - 14.5 % Platelets 143 (L) 150 - 450 x10*3/uL Neutrophils % 69.7 40.0 - 80.0 % Immature Granulocytes %, Automated 0.2 0.0 - 0.9 % Lymphocytes % 17.9 13.0 - 44.0 % Monocytes % 9.3 2.0 - 10.0 % Eosinophils % 2.2 0.0 - 6.0 % Basophils % 0.7 0.0 - 2.0 % Neutrophils Absolute 4.04 1.20 - 7.70 x10*3/uL Immature Granulocytes Absolute, Automated 0.01 0.00 - 0.70 x10*3/uL Lymphocytes Absolute 1.04 (L) 1.20 - 4.80 x10*3/uL Monocytes Absolute 0.54 0.10 - 1.00 x10*3/uL Eosinophils Absolute 0.13 0.00 - 0.70 x10*3/uL Basophils Absolute 0.04 0.00 - 0.10 x10*3/uL Comprehensive Metabolic Panel Result Value Ref Range Glucose 107 (H) 74 - 99 mg/dL Sodium 140 136 - 145 mmol/L Potassium 3.9 3.5 - 5.3 mmol/L Chloride 108 (H) 98 - 107 mmol/L Bicarbonate 24 21 - 32 mmol/L Anion Gap 12 10 - 20 mmol/L Urea Nitrogen 14 6 - 23 mg/dL Creatinine 0.93 0.50 - 1.05 mg/dL eGFR 80 >60 mL/min/1.73m*2 Calcium 9.0 8.6 - 10.3 mg/dL Albumin 3.7 3.4 - 5.0 g/dL Alkaline Phosphatase 245 (H) 33 - 110 U/L Total Protein 6.2 (L) 6.4 - 8.2 g/dL AST 14 9 - 39 U/L Bilirubin, Total 1.3 (H) 0.0 - 1.2 mg/dL ALT 13 7 - 45 U/L Lactate Result Value Ref Range Lactate 0.8 0.4 - 2.0 mmol/L C-Reactive Protein Result Value Ref Range C-Reactive Protein 0.99 <1.00 mg/dL Sedimentation Rate Result Value Ref Range Sedimentation Rate 27 (H) 0 - 20 mm/h SST TOP Result Value Ref Range Extra Tube Hold for add-ons. CT tibia fibula left w IV contrast Result Date: 04/06/2023 STUDY: CT Extremity; Completed Time: 04/06/2023 10:29 AM INDICATION: Wound of left tibia fibula. COMPARISON: None Available. ACCESSION NUMBER(S): [id number] ORDERING CLINICIAN: JOSUÉ IGLESIAS TECHNIQUE: Thin section axial images were obtained through the left tibia fibula with intravenous contrast. Orthogonal reconstructed images were obtained and reviewed. Omnipaque 350 70 mL was administered intravenously. Automated mA/kV exposure control was utilized and patient examination was performed in strict accordance with principles of ALARA. FINDINGS: Osseous structures demonstrate no evidence for acute fracture or dislocation. The tarsometatarsal joints are intact. There is focal calcific tendinosis involving the posterior tibialis. Distal Achilles is within normal limits. There is subcutaneous edema consistent with cellulitis. Along the plantar aspect of the patient's heel, there is a 1 cm Soft tissue density surrounding small central fluid density which may represent a small abscess. Clinical correlation is recommended. There is no calcaneal erosion. There is also prominent deep ulcer in the pretibial tissues measuring up to 1 cm in depth. No lytic or blastic tibial lesions. Varicosities noted within the subcutaneous tissues. Visualized calf muscles appear homogeneous in attenuation. Diffuse edematous change involving the calf and ankle consistent with cellulitis. Prominent deep ulcer along the anterior lower calf is observed. The underlying tibia shows no erosion. If there is high concern for osteomyelitis, correlate with MRI. 1 cm fluid density residing in the plantar aspect of the patients heel which may represent small abscess. Alternatively, this could represent a region of induration/decubitus change. No calcaneal erosions. Signed by Navjot Ruvalcaba MD Assessment/Plan Principal Problem: Cellulitis Jayna Smith is a 37 y.o. female presenting with left ankle and right index and middle finger wounds. She has a PMHX HTN, DM type II, raynauds, chronic leg wounds. She told the ED that her leg wound was healing and that her dog jumped up on her and scratched her and opened it up. To me she was recently at her PCP office and was told to come to the ED due to it looking worse and they felt that it needed IV antibiotics. She was placed on Augmentin yesterday at PCP office but didn't take it yet. She states that this started about 2 years ago due to having poison param and they getting a tattoo over the area. She was seen at [facility] and didn't like how they were treating her leg so she stopped going to them and has not had further treatment since. She is able to ambulate and stand on her leg but only for a few min at a time. She currently denies any fever, chills, nausea, vomiting. WBC 5.8, lactate 0.8, CRP 0.99, sed rate 27 #Cellulitis -WBC 5.8, lactate 0.8 -pt given iv vanco and zosyn in ed, will continue at this time -cultures sent from ed -Podiatry consulted appreciate recommendations -continue pain medication, due to pt being so drowsy with conversation will only do oral medication at this time -due to long hx of wounds and pt non-compliance with care will await for podiatry recommendations, but at this time pt likely will stay obs status #DM -pt states that she is not on any medication at home -last hgba1c 6.7 11/17/22 -continue accuchecks -SSI #HTN -continue home medication I spent 50 minutes in the professional and overall care of this patient. KHOA Estevez documented in this encounter [facility] Work Phone: 04-06-2023 Emergency department Note HPI Chief Complaint Patient presents with Wound Check Amb to ED with c/o wounds to R fingers and LLE. She is concerned about the wound to LLE because although it has been there for 2 years, she reports that it has gotten worse in the last 2 months. Limitations to History: None HPI: 37-year-old female presents with wound to her left lower extremity. States is been present for 2 years. States that it was healing but then her dog scratched and opened. Worsening over the past month. Patient seen by her primary care physician who sent her in for IV antibiotics and further treatment. States that she does have pain in this area. Denies any fever, chills, nausea, vomiting. Additional History Obtained from: Primary care physician Rajendra Foley. Physical Exam: VS: As documented in the triage note and EMR flowsheet from this visit were reviewed. Appearance: Alert. cooperative, in no acute distress. Skin: HENT: Normocephalic, atraumatic. Nares patent. No intraoral lesions. Neck: Supple, without meningismus. Trachea at midline. No lymphadenopathy. Pulmonary: Clear bilaterally with good chest wall excursion. No rales, rhonchi or wheezing. No accessory muscle use or stridor. Cardiac: Regular rate and rhythm, no rubs, murmurs, or gallops. No JVD, Carotids without bruits. Abdomen: Abdomen is soft, nontender, and nondistended. No palpable organomegaly. No rebound or guarding. No CVA tenderness. Nonsurgical abdomen Genitourinary: Exam deferred. Musculoskeletal: Full range of motion. Pulses full and equal. No cyanosis, clubbing, or edema. Neurological: Cranial nerves are grossly intact, grossly normal sensation, no weakness, no focal findings identified. Psychiatric: Appropriate mood and affect. Dominick Coma Scale Score: 15 Patient History Past Medical History: Diagnosis Date Chlamydial infection, unspecified Chlamydia Elevated LFTs 05/25/2022 Immunization not carried out because of patient refusal Influenza vaccination declined LGSIL on Pap smear of cervix 07/20/2022 Other conditions influencing health status History of Other specified postprocedural states History of Papanicolaou smear Past Surgical History: Procedure Laterality Date OTHER SURGICAL HISTORY 11/29/2018 Oral surgery OTHER SURGICAL HISTORY 06/02/2022 Colposcopy OTHER SURGICAL HISTORY 08/17/2014 Loop electrosurgical excision procedure Family History Problem Relation Name Age of Onset No Known Problems Mother Osteoporosis Father Parkinsonism Mother's Sister Parkinsonism Maternal Grandmother Asthma Other Diabetes Other Hypertension Other Heart attack Other Social History Tobacco Use Smoking status: Former Packs/day: 1 Types: Cigarettes Smokeless tobacco: Never Vaping Use Vaping Use: Every day Substances: Nicotine, THC, CBD, Flavoring Devices: Disposable Substance Use Topics Alcohol use: Yes Comment: RARE Drug use: Yes Types: Marijuana Physical Exam ED Triage Vitals [04/06/23 0849] Temperature Heart Rate Respirations BP 36.1 C (97 F) 80 16 (!) 151/104 Pulse Ox Temp src Heart Rate Source Patient Position 99 % -- -- -- BP Location FiO2 (%) -- -- Physical Exam ED Course & MDM Diagnoses as of 04/06/23 1232 Ulcer of left lower extremity, unspecified ulcer stage (CMS/HCC) Cellulitis of left lower extremity Medical Decision Making Labs Reviewed CBC WITH AUTO DIFFERENTIAL - Abnormal WBC 5.8 nRBC 0.0 RBC 5.00 Hemoglobin 14.2 Hematocrit 44.5 MCV 89 MCH 28.4 MCHC 31.9 (*) RDW 15.5 (*) Platelets 143 (*) Neutrophils % 69.7 Immature Granulocytes %, Automated 0.2 Lymphocytes % 17.9 Monocytes % 9.3 Eosinophils % 2.2 Basophils % 0.7 Neutrophils Absolute 4.04 Immature Granulocytes Absolute, Au* 0.01 Lymphocytes Absolute 1.04 (*) Monocytes Absolute 0.54 Eosinophils Absolute 0.13 Basophils Absolute 0.04 COMPREHENSIVE METABOLIC PANEL - Abnormal Glucose 107 (*) Sodium 140 Potassium 3.9 Chloride 108 (*) Bicarbonate 24 Anion Gap 12 Urea Nitrogen 14 Creatinine 0.93 eGFR 80 Calcium 9.0 Albumin 3.7 Alkaline Phosphatase 245 (*) Total Protein 6.2 (*) AST 14 Bilirubin, Total 1.3 (*) ALT 13 SEDIMENTATION RATE, AUTOMATED - Abnormal Sedimentation Rate 27 (*) LACTATE - Normal Lactate 0.8 Narrative: Venipuncture immediately after or during the administration of Metamizole may lead to falsely low results. Testing should be performed immediately prior to Metamizole dosing. C-REACTIVE PROTEIN - Normal C-Reactive Protein 0.99 BLOOD CULTURE BLOOD CULTURE TISSUE/WOUND CULTURE/SMEAR CT tibia fibula left w IV contrast Final Result Diffuse edematous change involving the calf and ankle consistent with cellulitis. Prominent deep ulcer along the anterior lower calf is observed. The underlying tibia shows no erosion. If there is high concern for osteomyelitis, correlate with MRI. 1 cm fluid density residing in the plantar aspect of the patients heel which may represent small abscess. Alternatively, this could represent a region of induration/decubitus change. No calcaneal erosions. Signed by Navjot Ruvalcaba MD Medical Decision Making: Patient appears well and nontoxic. Vital signs otherwise unremarkable. Slight elevation in sedimentation rate. CT shows evidence of diffuse cellulitis with ulceration. No evidence of osteomyelitis or subcutaneous gas. Patient was treated with morphine, Zofran, 1 L normal saline, Zosyn, vancomycin. Lactate negative. Blood cultures pending. Patient will be admitted for further treatment and evaluation to the hospitalist service. Case discussed with clinical psychology professor, Dr. Barbosa, who is agreeable to see the patient for wound management. Stable at time of admission. Differential Diagnoses Considered: Cellulitis, ulcer, osteomyelitis, necrotizing fasciitis Escalation of Care: Appropriate for admission for further treatment and evaluation. Discussion of Management with Other Providers: I discussed the patient/results with: Admitting hospitalist and clinical psychology professor. Procedure Procedures Josué Iglesias DO 04/06/23 1235 documented in this encounter [facility] Work Phone: 04-06-2023 Physician Emergency department Note HPI Chief Complaint Patient presents with Wound Check Amb to ED with c/o wounds to R fingers and LLE. She is concerned about the wound to LLE because although it has been there for 2 years, she reports that it has gotten worse in the last 2 months. Limitations to History: None HPI: 37-year-old female presents with wound to her left lower extremity. States is been present for 2 years. States that it was healing but then her dog scratched and opened. Worsening over the past month. Patient seen by her primary care physician who sent her in for IV antibiotics and further treatment. States that she does have pain in this area. Denies any fever, chills, nausea, vomiting. Additional History Obtained from: Primary care physician Rajendra Foley. Physical Exam: VS: As documented in the triage note and EMR flowsheet from this visit were reviewed. Appearance: Alert. cooperative, in no acute distress. Skin: HENT: Normocephalic, atraumatic. Nares patent. No intraoral lesions. Neck: Supple, without meningismus. Trachea at midline. No lymphadenopathy. Pulmonary: Clear bilaterally with good chest wall excursion. No rales, rhonchi or wheezing. No accessory muscle use or stridor. Cardiac: Regular rate and rhythm, no rubs, murmurs, or gallops. No JVD, Carotids without bruits. Abdomen: Abdomen is soft, nontender, and nondistended. No palpable organomegaly. No rebound or guarding. No CVA tenderness. Nonsurgical abdomen Genitourinary: Exam deferred. Musculoskeletal: Full range of motion. Pulses full and equal. No cyanosis, clubbing, or edema. Neurological: Cranial nerves are grossly intact, grossly normal sensation, no weakness, no focal findings identified. Psychiatric: Appropriate mood and affect. Dominick Coma Scale Score: 15 Patient History Past Medical History: Diagnosis Date Chlamydial infection, unspecified Chlamydia Elevated LFTs 05/25/2022 Immunization not carried out because of patient refusal Influenza vaccination declined LGSIL on Pap smear of cervix 07/20/2022 Other conditions influencing health status History of Other specified postprocedural states History of Papanicolaou smear Past Surgical History: Procedure Laterality Date OTHER SURGICAL HISTORY 11/29/2018 Oral surgery OTHER SURGICAL HISTORY 06/02/2022 Colposcopy OTHER SURGICAL HISTORY 08/17/2014 Loop electrosurgical excision procedure Family History Problem Relation Name Age of Onset No Known Problems Mother Osteoporosis Father Parkinsonism Mother's Sister Parkinsonism Maternal Grandmother Asthma Other Diabetes Other Hypertension Other Heart attack Other Social History Tobacco Use Smoking status: Former Packs/day: 1 Types: Cigarettes Smokeless tobacco: Never Vaping Use Vaping Use: Every day Substances: Nicotine, THC, CBD, Flavoring Devices: Disposable Substance Use Topics Alcohol use: Yes Comment: RARE Drug use: Yes Types: Marijuana Physical Exam ED Triage Vitals [04/06/23 0849] Temperature Heart Rate Respirations BP 36.1 C (97 F) 80 16 (!) 151/104 Pulse Ox Temp src Heart Rate Source Patient Position 99 % -- -- -- BP Location FiO2 (%) -- -- Physical Exam ED Course & MDM Diagnoses as of 04/06/23 1232 Ulcer of left lower extremity, unspecified ulcer stage (CMS/HCC) Cellulitis of left lower extremity Medical Decision Making Labs Reviewed CBC WITH AUTO DIFFERENTIAL - Abnormal WBC 5.8 nRBC 0.0 RBC 5.00 Hemoglobin 14.2 Hematocrit 44.5 MCV 89 MCH 28.4 MCHC 31.9 (*) RDW 15.5 (*) Platelets 143 (*) Neutrophils % 69.7 Immature Granulocytes %, Automated 0.2 Lymphocytes % 17.9 Monocytes % 9.3 Eosinophils % 2.2 Basophils % 0.7 Neutrophils Absolute 4.04 Immature Granulocytes Absolute, Au* 0.01 Lymphocytes Absolute 1.04 (*) Monocytes Absolute 0.54 Eosinophils Absolute 0.13 Basophils Absolute 0.04 COMPREHENSIVE METABOLIC PANEL - Abnormal Glucose 107 (*) Sodium 140 Potassium 3.9 Chloride 108 (*) Bicarbonate 24 Anion Gap 12 Urea Nitrogen 14 Creatinine 0.93 eGFR 80 Calcium 9.0 Albumin 3.7 Alkaline Phosphatase 245 (*) Total Protein 6.2 (*) AST 14 Bilirubin, Total 1.3 (*) ALT 13 SEDIMENTATION RATE, AUTOMATED - Abnormal Sedimentation Rate 27 (*) LACTATE - Normal Lactate 0.8 Narrative: Venipuncture immediately after or during the administration of Metamizole may lead to falsely low results. Testing should be performed immediately prior to Metamizole dosing. C-REACTIVE PROTEIN - Normal C-Reactive Protein 0.99 BLOOD CULTURE BLOOD CULTURE TISSUE/WOUND CULTURE/SMEAR CT tibia fibula left w IV contrast Final Result Diffuse edematous change involving the calf and ankle consistent with cellulitis. Prominent deep ulcer along the anterior lower calf is observed. The underlying tibia shows no erosion. If there is high concern for osteomyelitis, correlate with MRI. 1 cm fluid density residing in the plantar aspect of the patients heel which may represent small abscess. Alternatively, this could represent a region of induration/decubitus change. No calcaneal erosions. Signed by Navjot Ruvalcaba MD Medical Decision Making: Patient appears well and nontoxic. Vital signs otherwise unremarkable. Slight elevation in sedimentation rate. CT shows evidence of diffuse cellulitis with ulceration. No evidence of osteomyelitis or subcutaneous gas. Patient was treated with morphine, Zofran, 1 L normal saline, Zosyn, vancomycin. Lactate negative. Blood cultures pending. Patient will be admitted for further treatment and evaluation to the hospitalist service. Case discussed with clinical psychology professor, Dr. Barbosa, who is agreeable to see the patient for wound management. Stable at time of admission. Differential Diagnoses Considered: Cellulitis, ulcer, osteomyelitis, necrotizing fasciitis Escalation of Care: Appropriate for admission for further treatment and evaluation. Discussion of Management with Other Providers: I discussed the patient/results with: Admitting hospitalist and clinical psychology professor. Procedure Procedures Josué Iglesias DO 04/06/23 1235 [facility] Work Phone: 04-05-2023 History of Present illness Narrative Subjective Patient ID: Jayna Smith is a 37 y.o. female who presents for Follow-up (3 MONTH F/U. BEEN IN A LOT OF PAIN, R HAND AND L LEG.) HPI to Review labs- not done Med check anxiety - buspar GERD - tums prn - rare HTN - on lisinopril - home readings are good raynauds - stable allergies - on loratadine varicose veins- denies pain and denies using romaine hose often Slow healing L lower anterior tibial region x over 1 year - varies in size pending treatment Second finger R hand wound Third finger R hand wound Was following with pain clinic in [place] but stopped bc she states it was too painful. She states she has been caring for this on her own but its not getting better. Using topical and covering. She denies warmth to touch however tips of her digit are red and scabbed and her finger are slightly swollen and in a contracture state. , Her LE ulcer is deep with surrounding erythema to her calf but is not warm She has been diagnosed with raynauds and we have discussed poor healing in the past has likely been from circulation issues She has cont to smoke on and off for years - currently quit as of 1-2 weeks ago She states she has gone to the ER a few times but they dont do anything for treatment She was seen at [facility] ER 12/26/22 She was seen at [facility] ER 01/18/23 She then canceled 5 visits scheduled with me until she was finally seen today Preventative Testing mammo suggest age 38 PAP - Dr Carter DEXA -suggest age 48 colonoscopy - suggest colonoscopy at age 43 PHQ2 Depression screen - NEG MAR 2023 Fall - Neg MAR 2023 Tobacco - quit Mar 2023 for a few days - cont to vape - trying to avoid buying more cig if possible Patient Active Problem List Diagnosis Abnormal uterine bleeding (AUB) BPPV (benign paroxysmal positional vertigo) Cervix dysplasia Chronic renal insufficiency, stage III (moderate) (CMS/HCC) Dysplasia of cervix, low grade (HENRIETTA 1) Hypertension associated with diabetes (CMS/HCC) ELIZABETH (generalized anxiety disorder) GERD (gastroesophageal reflux disease) Controlled type 2 diabetes mellitus with hyperglycemia, without long-term current use of insulin (CMS/HCC) Hemiplegic migraine Hypertriglyceridemia Leg edema Lesion of left ovary Low serum HDL Motion sickness Ovarian cyst, complex Pain of left lower extremity Raynauds disease Sacroiliac joint dysfunction of left side Seasonal allergies Varicose veins of legs Wound of left ankle Amenorrhea Vaginal lesion Elevated red blood cell count Non-healing wound of lower extremity Non-healing wound of upper extremity Finger ulcer (CMS/HCC) Overweight (BMI 25.0-29.9) History of ovarian cyst Elevated ferritin Review of Systems Constitutional: Positive for fatigue. Negative for chills and fever. HENT: Negative for congestion, rhinorrhea, sinus pain, sore throat and tinnitus. Eyes: Negative for discharge, redness and visual disturbance. Respiratory: Negative for cough, chest tightness, shortness of breath and wheezing. Cardiovascular: Negative for chest pain, palpitations and leg swelling. Gastrointestinal: Negative for abdominal pain, constipation, diarrhea, nausea and vomiting. Endocrine: Negative for cold intolerance and heat intolerance. Genitourinary: Negative for flank pain, frequency and urgency. Musculoskeletal: Positive for arthralgias and myalgias. Negative for back pain, gait problem and neck pain. Skin: Positive for color change and wound. Negative for rash. Neurological: Negative for dizziness, tremors, syncope, numbness and headaches. Hematological: Does not bruise/bleed easily. Psychiatric/Behavioral: Negative for confusion, sleep disturbance and suicidal ideas. Past Medical History: Diagnosis Date Chlamydial infection, unspecified Chlamydia Elevated LFTs 05/25/2022 Immunization not carried out because of patient refusal Influenza vaccination declined LGSIL on Pap smear of cervix 07/20/2022 Other conditions influencing health status History of Other specified postprocedural states History of Papanicolaou smear Past Surgical History: Procedure Laterality Date OTHER SURGICAL HISTORY 11/29/2018 Oral surgery OTHER SURGICAL HISTORY 06/02/2022 Colposcopy OTHER SURGICAL HISTORY 08/17/2014 Loop electrosurgical excision procedure Family History Problem Relation Name Age of Onset No Known Problems Mother Osteoporosis Father Parkinsonism Mother's Sister Parkinsonism Maternal Grandmother Asthma Other Diabetes Other Hypertension Other Heart attack Other Social History Tobacco Use Smoking status: Former Packs/day: 1 Types: Cigarettes Smokeless tobacco: Never Vaping Use Vaping Use: Every day Substances: Nicotine, THC, CBD, Flavoring Devices: Disposable Substance Use Topics Alcohol use: Yes Comment: RARE Drug use: Yes Types: Marijuana Allergies Allergen Reactions Amlodipine Swelling Current Outpatient Medications Medication Sig Dispense Refill busPIRone (Buspar) 5 mg tablet Take 1 tablet (5 mg) by mouth 3 times a day. prn ergocalciferol, vitamin D2, (VITAMIN D2 ORAL) Take by mouth. lisinopril 2.5 mg tablet Take 1 tablet (2.5 mg) by mouth once daily. loratadine (Claritin) 10 mg tablet Take 1 tablet (10 mg) by mouth once daily as needed for allergies. omeprazole (PriLOSEC) [address] capsule Take 1 capsule (20 mg) by mouth once daily in the morning. Take before meals. silver sulfADIAZINE (Silvadene) 1 % cream Apply topically 2 times a day. VITAMIN C, ASCORBATE CALCIUM, ORAL Take by mouth. ZINC ACETATE ORAL Use in the mouth or throat. HYDROcodone-acetaminophen (Flagler) 5-325 mg tablet Take 1 tablet by mouth every 6 hours if needed for severe pain (7 - 10). (Patient not taking: Reported on 04/05/2023) 12 tablet 0 ketorolac (Toradol) 10 mg tablet Take 1 tablet (10 mg) by mouth 4 times a day. nitroglycerin (Nitro-Bid) 2 % ointment Place 0.5 inches on the skin every 6 hours during the day for 30 doses. 2 g 0 No current facility-administered medications for this visit. Objective BP 114/64 Pulse 62 Ht 1.727 m (5' 8) Wt 81.2 kg (179 lb) BMI 27.22 kg/m Physical Exam Vitals reviewed. Constitutional: Appearance: Normal appearance. HENT: Head: Normocephalic. Right Ear: External ear normal. Left Ear: External ear normal. Nose: Nose normal. No congestion or rhinorrhea. Mouth/Throat: Mouth: Mucous membranes are moist. Eyes: Extraocular Movements: Extraocular movements intact. Conjunctiva/sclera: Conjunctivae normal. Pupils: Pupils are equal, round, and reactive to light. Cardiovascular: Rate and Rhythm: Normal rate and regular rhythm. Pulses: Normal pulses. Pulmonary: Effort: Pulmonary effort is normal. Breath sounds: Normal breath sounds. Abdominal: General: Bowel sounds are normal. Palpations: Abdomen is soft. Tenderness: There is no abdominal tenderness. There is no right CVA tenderness or left CVA tenderness. Musculoskeletal: General: No tenderness. Normal range of motion. Cervical back: Normal range of motion and neck supple. No tenderness. Skin: General: Skin is warm and dry. Findings: Erythema present. Comments: R hand 2nd and third digit scab noted on the distal pad of her finger. The fingers are slightly erythematous and swollen and her fingers are in a contracture state Neg warmth to touch L anterior tibial deep ulcer spreading from what was a small region into her ankle now covering a good portion of the anterior aspect of her ankle. Surrounding skin is erythematous, dry, edematous - neg warmth. Her gauze pad is fixated to her wound but she claims to be changing this daily Neurological: General: No focal deficit present. Mental Status: She is alert and oriented to person, place, and time. Psychiatric: Mood and Affect: Mood normal. Behavior: Behavior normal. Testing Reviewed old labs on file Reviewed labs ordered to be done Impression [facility] 1) COMPLEXITY: 1 OR MORE CHRONIC CONDITION WITH EXACERBATION, OR PROGRESSION OR SIDE EFFECT OF TREATMENT ADDRESSED 2)DATA: TESTS INTERPRETED AND OR ORDERED, TOOK INDEPENDENT HISTORY OR RECORDS REVIEWED 3)RISK: MODERATE RISK DUE TO NATURE OF MEDICAL CONDITIONS/COMORBIDITY OR MEDICATIONS ORDERED OR SURGICAL OR PROCEDURE REFERRAL, . Reviewed labs and Testing on file Patient to follow diet low in cholesterol, fat, and sodium. Patient is advised to increase Exercise. Patient is recommended to lose weight. Reviewed Meds and discussed common side effects Continue as directed I am extremely concerned with the ulcers on her fingers and on her leg. I have encouraged her to go to the ER as I question the need for admittance, but she declines at this time. I stressed the importance of getting updated labs and imaging. I fear the infection and lack of blood flow may be down to her bone and worry about her losing her digits or her leg. She denies a fever but explained if she developed these symptoms she must get to the ER. I have ordered xrays for her to do JOHNNIE and explained we may need to coordinate additional referral. I explained the importance of her following with her specialists for this and she should return to [place] wound care or we can look into the referral to [facility] as previously made. I will start the process for arterial doppler and start the referral to cardiovasc - she will be on a cancellation list. Consider referral to ortho pending imaging. I prefer to see her back in 1-2 weeks given the severity of the appearance of the ulcers. I question the diagnosis of bergers dz I have stressed to the patient numerous time this type of ulcer can lead to losing a digit/limb or even in circumstances when not treated timely and strongly encourage her to go the ER repetitively throughout the visit. She is advised to call or return for a visit sooner and laurence the sign of symptoms getting worse I will start her on oral Abx for the time being but strongly believe she needs debridement or more of these wounds Unfort she is allergic to amlodipine class of meds Patient is strongly advised to be compliant with recommendations. Return to Clinic sooner if needed. Patient denies further questions/concerns at this time Assessment/Plan Problem List Items Addressed This Visit ICD-10-CM Chronic renal insufficiency, stage III (moderate) (CMS/[facility]) N18.30 Hypertension associated with diabetes (CMS/HCC) E11.59, I15.2 Controlled type 2 diabetes mellitus with hyperglycemia, without long-term current use of insulin (CMS/[facility]) E11.65 Raynauds disease - Primary I73.00 Relevant Orders XR fingers right 2+ views XR fingers right 2+ views Vascular US PVR With Exercise Referral to Cardiovascular Surgery Non-healing wound of lower extremity S81.809A Relevant Orders Vascular US PVR With Exercise Referral to Cardiovascular Surgery XR tibia fibula left 2 views Non-healing wound of upper extremity S41.109A Relevant Medications amoxicillin-pot clavulanate (Augmentin) 875-125 mg tablet Other Relevant Orders XR fingers right 2+ views XR fingers right 2+ views Vascular US PVR With Exercise Referral to Cardiovascular Surgery Finger ulcer (CMS/HCC) L98.499 Overweight (BMI 25.0-29.9) E66.3 FU in 1-2 weeks with labs and xray Please look into wound clinic referral placed to [facility] in a 12/06/22 tele message. Pt states she never heard from their office Referral to cardio vasc - raynauds, question PAD and jarvis syndrome Arterial doppler bilat UE and LE - please call to verify order as I believe this order has been changes in this system documented in this encounter [facility] Work Phone: 11-23-2022 Progress note Note Date/Time November 23, 2022 1:[address] [place] [address] [facility] [address] [place] [address] Progress Note - Wound Care 11/23/22 1329 MR#: [id number] Acct: [id number] Name: JAYNA SMITH Rep #:[id number] : 1985 37 From: Pato tran MD PCP: MOISÉS Walker Status:REG RCR Location: History of Present Illness Date of Service: 11/23/22 Chief Complaint: Left Leg Ulcer. Right Middle finger ulcer History of Wound: Ms. Lemus is a 36-year-old who was referred to the wound center due to nonhealing left lower extremity and right hand ulcers. Left lowerextremity ulcer started a year ago. She believes that it opened after poison param dermatitis a year ago following tattoo to the area. She states that she hasbeen keeping it clean and about a month ago started putting Bactroban on it however no significant improvement. Right middle finger ulcer started a month ago. Works at [employer] and also has Raynaud's disease. She believes that itmay have started from repeated pushing of the air Fryer at work. Significant pain reported especially in the right middle finger. History of diabetes mellitus and last A1c was at 6.6. Currently not on any medication. Also history of tobacco abuse. Progress of Wound: No new concerns. Some improvement noted. Tolerated 3M wraps. Objective Data Objective Data Vital Signs: Vital Signs Temp Pulse Resp BP 97.1 F L 74 18 130/100 H 11/23/22 11:48 11/23/22 11:48 11/23/22 11:48 11/23/22 11:48 Weight: 186 lb Body Mass Index (BMI) 28.3 Charges/Coding Procedures Integumentary 111xxx-113xx: 52042 Aurelia subq tissue 20 sq cm/< Physical Exam Const alert, oriented x3 and no apparent distress General Appearance: cooperative, comfortable and well kempt HEENT normocephalic, head/scalp atraumatic and hearing grossly normal bilaterally Eyes General Eye: normal appearance of both eyes Neck full ROM and supple General: normal visual inspection Resp normal respiratory effort Effort and Inspection: able to speak in complete sentences Extremity General Extremity: edema Skin Wounds: wounds noted Neuro oriented x3, CN's II-XII intact bilaterally, moves all extremities and no focal motor deficits Psych mental status grossly normal, thought process normal, cooperative and affect normal Debridement Note Debridement Note Wound debrided: Left Lower Extremity Type of Debridement: Excisional debridement Anesthesia Used: 4% Lidocaine Solution Depth: Down to and including healthy tissue and in the subcutaneous layer Percentage of wound debrided: 100 Instrument Used: 5mm curette Tissue Removed: Slough and devitalized tissue Severity: Fat Layer Exposed Amount of bleeding with debridement: Mild Bleeding Controlled with: Pressure Patient tolerated procedure: Patient tolerated procedure well Post-Debridement Measurements and Additional Note: Post-Debridement Measurements/Treatment JERMAINE - Nurse 1 - General Ulcer Assessment Start: 11/16/22 10:51 Freq: Status: Active Protocol: KAMI Activity Type Activity Date Activity User E-sign Co-sign Detail Recorded Client Recorded Date Recorded By Document 11/16/22 10:51 RB [id number] 11/16/22 10:53 RB Document 11/23/22 11:48 RB [id number] 11/23/22 11:51 RB 11/16/22 11/23/22 10:51 11:48 WC - Today's Visit Information Type of service Follow-up Visit Follow-up Visit (Physician/CUSTOMER ENGINEER (Physician/CUSTOMER ENGINEER ) ) Arrival Mode Ambulatory Ambulatory Transfer Assistance None None Patient Identification Verified (Name & Yes Yes ) Patient Requires Transmission-Based No Precautions Height and Weight Body Mass Index (BMI) 28.3 28.3 BMI Classification Overweight Overweight Vital Signs Temperature (97.8 F-99.1 F) 96.8 F L 97.1 F L Temperature Source Temporal Temporal Pulse Rate (60-100) 74 74 Pulse Location Monitor Monitor Respiratory Rate (12-18) 18 18 Respiratory rate source Observation Observation Blood Pressure (90/60-120/80) 125/95 H 130/100 H Blood Pressure Mean (mm Hg) 105 110 Source Monitor Monitor Position Semi-Fowlers Semi-Fowlers Blood Pressure Location Left Arm Left Arm History Since Last Visit- (Skip if this is Patient's initial visit) Have you changed medications since your No No last visit? Any new allergies or adverse reactions No No Had a fall/change in ADL's that may No No increase risk of falls Signs or symptoms of abuse and/or No No neglect since last visit Have you been in the hospital since your No No last visit? Has dressing in place as prescribed Yes Yes Has compression in place as prescribed No Yes Has offloadiing in place as prescribed No No Experienced any changes in pain level or No No management Pain Scale: 0-10 Numeric Is Patient Pain Free? Yes No R hand -Description Sharp -Intensity 8 -Duration (hours) Acute -Pain Behavior Withdrawal from Touch -Pain Aggravating Factors Debridement -Alleviating Factors/Interventions Medication -Effectiveness of Alleviating Factor/ Moderately Intervention effective WC - Nurse 1 - General Ulcer Measurement Start: 11/16/22 10:51 Freq: Status: Active Protocol: Activity Type Activity Date Activity User E-sign Co-sign Detail Recorded Client Recorded Date Recorded By Document 11/16/22 10:51 RB [id number] 11/16/22 10:53 RB Document 11/23/22 11:48 RB [id number] 11/23/22 11:51 RB 11/16/22 11/23/22 10:51 11:48 Wound Center Nurse 1 #2- L DOHERTY -Combined with other wound No No -Current Size (cm) - Length 2.9 2.5 -Current Size (cm) - Width 1.7 1.6 -Current Size (cm) - Depth 0.2 0.3 -Total Square Cm 4.93 4.00 -Photo Taken Yes -Tunneling No No -Undermining/Tunneling No No -Circular Undermining No No -Exudate Amt Medium Large -Exudate Type Serosanguineous Serosanguineous -Wound Margin Distinct, Distinct, Outline Outline Attached Attached -Granulation Amt Medium (34-66%) Medium (34-66%) -Granulation Quality [place] -Slough/Fibrin Yes Yes -Necrosis Amt Medium (34-66%) Medium (34-66%) -Necrotic Tissue Type Adherent Slough Adherent Slough -Structure Exposed N/A N/A -Texture (Diamond-wound Skin Appearance) Assessed Assessed -Moisture (Diamond-wound Skin Appearance) Assessed Assessed -Color (Diamond-wound Skin Appearance) Assessed Assessed -Temperature (Diamond-wound Skin No Abnormality No Abnormality Appearance) (Pt Warm) (Pt Warm) -Tenderness on Palpation (Diamond-wound No No Skin Appearance) -Ulcer Cleansing Wound Cleanser Wound Cleanser -Foul Odor after Cleansing No No -Anesthetic Used 4% Lidocaine 4% Lidocaine Solution,5% Solution,5% Lidocaine Gel Lidocaine Gel #1- R MIDDLE FINGER -Combined with other wound No No -Current Size (cm) - Length 0.1 0.3 -Current Size (cm) - Width 0.1 0.3 -Current Size (cm) - Depth 0.1 0.1 -Total Square Cm 0.01 0.09 -Photo Taken Yes -Tunneling No No -Undermining/Tunneling No No -Circular Undermining No No -Exudate Amt Medium Medium -Exudate Type Serosanguineous Serosanguineous -Wound Margin Distinct, Distinct, Outline Outline Attached Attached -Granulation Amt Medium (34-66%) Medium (34-66%) -Granulation Quality [place] -Slough/Fibrin Yes Yes -Necrosis Amt Medium (34-66%) Medium (34-66%) -Necrotic Tissue Type Adherent Slough Adherent Slough -Structure Exposed N/A N/A -Texture (Diamond-wound Skin Appearance) Assessed Assessed -Moisture (Diamond-wound Skin Appearance) Assessed Assessed -Color (Diamond-wound Skin Appearance) Assessed Assessed -Temperature (Diamond-wound Skin No Abnormality No Abnormality Appearance) (Pt Warm) (Pt Warm) -Tenderness on Palpation (Diamond-wound No No Skin Appearance) -Ulcer Cleansing Wound Cleanser Wound Cleanser -Foul Odor after Cleansing No No -Anesthetic Used 4% Lidocaine 4% Lidocaine Solution,5% Solution,5% Lidocaine Gel Lidocaine Gel Lower Limb Edema Present Yes Left Calf (cm) 37.5 Left Ankle (cm) 26.5 WC - Nurse 2 - General Ulcer CM Notes Start: 11/16/22 10:51 Freq: Status: Active Protocol: Activity Type Activity Date Activity User E-sign Co-sign Detail Recorded Client Recorded Date Recorded By Document 11/16/22 11:13 BART [id number] 11/16/22 11:19 Document 11/23/22 12:11 [id number] 11/23/22 12:14 Edit Result 11/23/22 12:11 (1) [id number] 11/23/22 12:16 (1) #1- R MIDDLE FINGER - Time => 12:15 - Correct Patient No => Yes - Correct Side, Site, Position No => Yes - Correct Procedure No => Yes - Procedure Performed No => Yes - Type of Procedure => Debridement - Clinical Debridement => Epidermis / Dermis - Tissue Removed => Epidermis,Dermis - Post Debridement (cm) - Length => 0.3 - Post Debridement (cm) - Width => 0.3 - Post Debridement (cm) - Depth => 0.1 - Total Square (Post) (cm) => 0.09 - Area of Debridement (cm) - Length => 0.3 - Area of Debridement (cm) - Width => 0.3 - Total Square (Area) (cm) => 0.09 - Tunneling => No - Undermining/Tunneling => No - Circular Undermining => No - Ulcer Cleansing => Rinsed/Irrigated => with Saline - Foul Odor after Cleansing => No - Bioengineered Tissue => No - Bleeding Controlled with => Pressure - Treatment Response => Procedure => Tolerated Well - Offloading => No - Debridement - Open, 1st 20sq cm => Yes 11/16/22 11/23/22 11:13 12:11 Wound Center Nurse 2 #2- L DOHERTY -Time 11:14 12:12 -Correct Patient Yes Yes -Correct Side, Site, Position Yes Yes -Correct Procedure Yes Yes -Procedure Performed Yes Yes -Type of Procedure Debridement Debridement -Clinical Debridement Subcutaneous Subcutaneous -Tissue Removed Subcutaneous Subcutaneous -Post Debridement (cm) - Length 2.8 2.8 -Post Debridement (cm) - Width 1.8 1.5 -Post Debridement (cm) - Depth 0.2 0.2 -Total Square (Post) (cm) 5.04 4.20 -Area of Debridement (cm) - Length 2.8 2.8 -Area of Debridement (cm) - Width 1.8 1.5 -Total Square (Area) (cm) 5.04 4.20 -Tunneling No No -Undermining/Tunneling No No -Circular Undermining No No -Wound/Ulcer Outcome Not Healed Not Healed -Ulcer Cleansing Rinsed/ Rinsed/ Irrigated with Irrigated with Saline Saline -Foul Odor after Cleansing No No -Bioengineered Tissue No No -Bleeding Controlled with Pressure Pressure -Treatment Response Procedure Procedure Tolerated Well Tolerated Well -Offloading No No -Debridement - Subq, 1st 20sq cm Yes Yes #1- R MIDDLE FINGER -Time 11:15 12:15 -Correct Patient No Yes -Correct Side, Site, Position No Yes -Correct Procedure No Yes -Procedure Performed No Yes -Type of Procedure Debridement -Clinical Debridement Epidermis / Dermis -Tissue Removed Epidermis, Dermis -Post Debridement (cm) - Length 0.3 -Post Debridement (cm) - Width 0.3 -Post Debridement (cm) - Depth 0.1 -Total Square (Post) (cm) 0.09 -Area of Debridement (cm) - Length 0.3 -Area of Debridement (cm) - Width 0.3 -Total Square (Area) (cm) 0.09 -Tunneling No No -Undermining/Tunneling No No -Circular Undermining No No -Wound/Ulcer Outcome Not Healed Not Healed -Ulcer Cleansing Rinsed/ Irrigated with Saline -Foul Odor after Cleansing No No -Bioengineered Tissue No No -Bleeding Controlled with Pressure Pressure -Treatment Response Procedure Not Procedure Tolerated Well Tolerated Well -Offloading No No -Debridement - Open, 1st 20sq cm Yes -Debridement - Subq, 1st 20sq cm No Pain Scale: 0-10 Numeric Is Patient Pain Free? Yes Yes - Nurse 3 - General Ulcer D/C NN Start: 11/16/22 10:51 Freq: Status: Active Protocol: Activity Type Activity Date Activity User E-sign Co-sign Detail Recorded Client Recorded Date Recorded By Document 11/16/22 11:38 BM [id number] 11/16/22 11:39 BM Document 11/23/22 12:20 DL [id number] 11/23/22 12:23 DL 11/16/22 11/23/22 11:38 12:20 Wound Care Center Nurse 3 #2- L DOHERTY -Ulcer Cleansing Rinsed/ Rinsed/ Irrigated with Irrigated with Saline Saline -Foul Odor after Cleansing No No -Primary Dressing Applied Fibracol Plus Fibracol Plus 4x4 4x4,Optilok 6. 5x10 -Other Dressing ABD -Primary Dressing Covered/Secured with Dry Gauze & Roll Gauze, Secured with Tape -Fibracol Plus 4x4 1 1 -Optilok 6.5x10 1 #1- R MIDDLE FINGER -Ulcer Cleansing Rinsed/ Rinsed/ Irrigated with Irrigated with Saline Saline -Foul Odor after Cleansing No No -Primary Dressing Applied Fibracol Plus 4x4 -Other Dressing FIBRACOL -Primary Dressing Covered/Secured with Dry Gauze, Dry Gauze & Secured with Roll Gauze, Tape Secured with Tape -Fibracol Plus 4x4 0 Left -Multi-Layered Wrap Application Multi-Layer Multi-Layer Comp - Left ($) Comp - Left ($) Pain Scale: 0-10 Numeric Is Patient Pain Free? Yes Yes - Visit Discharge Discharge Condition Stable Stable Ambulatory Status Ambulatory Ambulatory Transportation Private Auto Additional Wound Wound debrided: Right middle finger Type of Debridement: Selective debridement Anesthesia Used: 5% Lidocaine Gel Depth: Down to and including healthy tissue and in the subcutaneous layer Percentage of wound debrided: 100 Tissue Removed: Devitalized tissue Severity: Fat Layer Exposed Amount of bleeding with debridement: Mild Bleeding Controlled with: Pressure Assessment/Plan Assessment/Plan (1) Ulcer of left lower extremity with fat layer exposed: CODE(S): L97.922 - Non-pressure chronic ulcer of unspecified part of left lower leg with fat layer exposed (2) Type 2 diabetes mellitus: CODE(S): E11.9 - Type 2 diabetes mellitus without complications QUALIFIERS: Diabetes mellitus shelter insulin use: without termination clerk use Diabetes mellitus complication status: with other specified complication Qualified Code(s): E11.69 - Type 2 diabetes mellitus with other specified complication (3) Raynauds disease: CODE(S): I73.00 - Raynaud's syndrome without gangrene QUALIFIERS: Raynaud?s-associated gangrene presence: with gangrene Qualified Code(s): I73.01 - Raynaud's syndrome with gangrene (4) Skin ulcer of hand: CODE(S): L98.499 - Non-pressure chronic ulcer of skin of other sites with unspecified severity QUALIFIERS: Non-pressure ulcer stage: unspecified non-pressure ulcer stage Qualified Code(s): L98.499 - Non-pressure chronic ulcer of skin of other sites with unspecified severity PLAN: Plan Debridement done as documented above, procedure was better tolerated. Some improvement noted. Continue Fibrocol to both ulcers, cover with gauze. Change right middle finger daily and leave Left lower extremity for 1 week. 3M wrap for edema management, leave in place for a week. Increase protein intake, vitamin C, D and zinc also discussed to aid in wound healing, patient voiced understanding. Call with any concerns and follow-up in a week or sooner if needed. This note was generated with [employer] dictation software. It may contain incorrectwords, spelling, and punctuation that were not noted in checking the note beforesigning. 11/23/22 1334 <Electronically signed by Pato Correa MD> Cosigner Signature (if applicable): CC: ~ Signed [facility] Work Phone: [phone] History of Present illness Narrative* Rajendra Foley PA-C - 11/23/2022 1:20 PM EDT Subjective Patient ID: Jayna Smith is a 37 y.o. female who presents for Wound Check (DISCUSS WOUND CLINIC/C/O STILL HAVING ISSUES WITH HER ONE MIDDLE FINGER STILL FEELING VERY SORE. C/O OF NOT WANTING TO CONTINUE TO GO TO THE WOUND CLINIC STATES SHE FEELS SHE'S GETTING TORTURED WANTS TO SEE IF SHE CAN DISCONTINUE THE CLINIC AND JUST TAKE CARE OF IT HERSELF. STATES HER PAIN IS SOMETIMES UNBEARABLE ) HPI to Review labs Med check anxiety - buspar GERD - tums prn - rare HTN - on lisinopril - home readings are good raynauds - stable allergies - on loratadine varicose veins- denies pain and denies using romaine hose often Slow healing She notes a wound on the L anklex over 1 year Third finger R hand wound Following with wound clinic Preventative Testing mammo suggest age 38 PAP - Dr Carter DEXA -suggest age 48 colonoscopy - suggest colonoscopy at age 43 PHQ2 Depression screen - NEG Nov 2022 Fall - Neg Nov 2022 Tobacco - Patient Active Problem List Diagnosis Abnormal uterine bleeding (AUB) BPPV (benign paroxysmal positional vertigo) Cervix dysplasia Chronic renal insufficiency, stage III (moderate) (CMS/HCC) Dysplasia of cervix, low grade ([place] 1) Hypertension associated with diabetes (CMS/HCC) ELIZABETH (generalized anxiety disorder) GERD (gastroesophageal reflux disease) Controlled type 2 diabetes mellitus with hyperglycemia, without long-term current use of insulin (CMS/HCC) Hemiplegic migraine Hypertriglyceridemia Leg edema Lesion of left ovary Low serum HDL Motion sickness Ovarian cyst, complex Pain of left lower extremity PND (post-nasal drip) Raynauds disease Sacroiliac joint dysfunction of left side Seasonal allergies Varicose veins of legs Wound of left ankle Amenorrhea Vaginal lesion Elevated red blood cell count Non-healing wound of lower extremity Non-healing wound of upper extremity Finger ulcer (CMS/HCC) Class 1 obesity due to excess calories with serious comorbidity and body mass index (BMI) of 31.0 to 31.9 in adult Essential hypertension Glucose intolerance (impaired glucose tolerance) History of ovarian cyst Review of Systems Constitutional: Positive for fatigue. Negative for chills and fever. HENT: Negative for congestion, rhinorrhea, sinus pain, sore throat and tinnitus. Eyes: Negative for discharge, redness and visual disturbance. Respiratory: Negative for cough, chest tightness, shortness of breath and wheezing. Cardiovascular: Negative for chest pain, palpitations and leg swelling. Gastrointestinal: Negative for abdominal pain, constipation, diarrhea, nausea and vomiting. Endocrine: Negative for cold intolerance and heat intolerance. Genitourinary: Negative for flank pain, frequency and urgency. Musculoskeletal: Negative for back pain, gait problem and neck pain. Skin: Positive for wound. Negative for rash. Neurological: Negative for dizziness, tremors, syncope, numbness and headaches. Hematological: Does not bruise/bleed easily. Psychiatric/Behavioral: Negative for confusion, sleep disturbance and suicidal ideas. Past Medical History: Diagnosis Date Chlamydial infection, unspecified Chlamydia Elevated LFTs 05/25/2022 Immunization not carried out because of patient refusal Influenza vaccination declined LGSIL on Pap smear of cervix 07/20/2022 Other conditions influencing health status History of Other specified postprocedural states History of Papanicolaou smear Past Surgical History: Procedure Laterality Date OTHER SURGICAL HISTORY 11/29/2018 Oral surgery OTHER SURGICAL HISTORY 06/02/2022 Colposcopy OTHER SURGICAL HISTORY 08/17/2014 Loop electrosurgical excision procedure Family History Problem Relation Name Age of Onset No Known Problems Mother Osteoporosis Father Asthma Other Diabetes Other Hypertension Other Heart attack Other Social History Tobacco Use Smoking status: Every Day Packs/day: 1 Types: Cigarettes Smokeless tobacco: Never Vaping Use Vaping Use: Every day Substances: Nicotine, THC, CBD, Flavoring Devices: Disposable Substance Use Topics Alcohol use: Yes Comment: RARE Drug use: Never Allergies Allergen Reactions Amlodipine Swelling Current Outpatient Medications Medication Sig Dispense Refill busPIRone (Buspar) 5 mg tablet Take 1 tablet (5 mg) by mouth 3 times a day. prn ketorolac (Toradol) 10 mg tablet Take 1 tablet (10 mg) by mouth 4 times a day. lisinopril 2.5 mg tablet Take 1 tablet (2.5 mg) by mouth once daily. loratadine (Claritin) 10 mg tablet Take 1 tablet (10 mg) by mouth once daily as needed for allergies. omeprazole (PriLOSEC) [address] capsule Take 1 capsule (20 mg) by mouth once daily in the morning. Take before meals. cefadroxil (Duricef) 500 mg capsule Take 1 capsule (500 mg) by mouth 2 times a day. doxycycline (Vibra-Tabs) 100 mg tablet Take 1 tablet (100 mg) by mouth 2 times a day. lisinopril 5 mg tablet Take 1 tablet (5 mg) by mouth once daily. (Patient not taking: Reported on 11/23/2022) 30 tablet 5 silver sulfADIAZINE (Silvadene) 1 % cream Apply topically 2 times a day. No current facility-administered medications for this visit. Objective BP 126/88 Pulse 78 Ht 1.727 m (5' 8) Wt 80.3 kg (177 lb) BMI 26.91 kg/m Physical Exam Vitals reviewed. Constitutional: Appearance: Normal appearance. HENT: Head: Normocephalic. Right Ear: External ear normal. Left Ear: External ear normal. Nose: Nose normal. No congestion or rhinorrhea. Mouth/Throat: Mouth: Mucous membranes are moist. Eyes: Extraocular Movements: Extraocular movements intact. Conjunctiva/sclera: Conjunctivae normal. Pupils: Pupils are equal, round, and reactive to light. Cardiovascular: Rate and Rhythm: Normal rate and regular rhythm. Pulses: Normal pulses. Pulmonary: Effort: Pulmonary effort is normal. Breath sounds: Normal breath sounds. Abdominal: General: Bowel sounds are normal. Palpations: Abdomen is soft. Tenderness: There is no abdominal tenderness. There is no right CVA tenderness or left CVA tenderness. Musculoskeletal: General: No tenderness. Normal range of motion. Cervical back: Normal range of motion and neck supple. No tenderness. Skin: General: Skin is warm and dry. Neurological: General: No focal deficit present. Mental Status: She is alert and oriented to person, place, and time. Psychiatric: Mood and Affect: Mood normal. Behavior: Behavior normal. Testing Component Latest Ref [facility] 11/17/2022 WBC 4.4 - 11.3 x10E9/L 8.6 RBC 4.00 - 5.20 x10E12/L 5.92 (H) HEMOGLOBIN 12.0 - 16.0 g/dL 16.5 (H) HEMATOCRIT 36.0 - 46.0 % 53.8 (H) MCV 80 - 100 fL 91 MCHC 32.0 - 36.0 g/dL 30.7 (L) Platelets 150 - 450 x10E9/L 174 RED CELL DISTRIBUTION WIDTH 11.5 - 14.5 % 15.3 (H) Neutrophils % 40.0 - 80.0 % 61.8 Immature Granulocytes %, Automated 0.0 - 0.9 % 0.2 Lymphocytes % 13.0 - 44.0 % 25.5 Monocytes % 2.0 - 10.0 % 7.5 Eosinophils % 0.0 - 6.0 % 4.2 Basophils % 0.0 - 2.0 % 0.8 Neutrophils Absolute 1.20 - 7.70 x10E9/L 5.33 Lymphocytes Absolute 1.20 - 4.80 x10E9/L 2.20 Monocytes Absolute 0.10 - 1.00 x10E9/L 0.65 Eosinophils Absolute 0.00 - 0.70 x10E9/L 0.36 Basophils Absolute 0.00 - 0.10 x10E9/L 0.07 GLUCOSE 74 - 99 mg/dL 126 (H) SODIUM 136 - 145 mmol/L 143 POTASSIUM 3.5 - 5.3 mmol/L 4.3 CHLORIDE 98 - 107 mmol/L 110 (H) Bicarbonate 21 - 32 mmol/L 25 Anion Gap 10 - 20 mmol/L 12 Blood Urea Nitrogen 6 - 23 mg/dL 17 Creatinine 0.50 - 1.05 mg/dL 1.34 (H) GFR Female >90 mL/min/1.73m2 52 ! Calcium 8.6 - 10.3 mg/dL 9.4 Albumin 3.4 - 5.0 g/dL 3.9 Alkaline Phosphatase 33 - 110 U/L 220 (H) Total Protein 6.4 - 8.2 g/dL 6.5 AST 9 - 39 U/L 28 Bilirubin Total 0.0 - 1.2 mg/dL 0.8 ALT 7 - 45 U/L 37 IRON 35 - 150 ug/dL 81 TIBC 240 - 445 ug/dL 325 % Saturation 25 - 45 % 25 ALBUMIN (MG/L) IN URINE Not Established mg/L 82.8 Albumin/Creatine Ratio 0.0 - 30.0 ug/mg retail planning manager 154.2 (H) Creatinine, Urine Random 20.0 - 320.0 mg/dL 53.7 Hemoglobin A1C % 6.7 ! Estimated Average Glucose MG/DL 146 FERRITIN 8 - 150 ug/L 251 (H) MAGNESIUM 1.60 - 2.40 mg/dL 1.69 Impression MDM 1) COMPLEXITY: MORE THAN 1 STABLE CHRONIC CONDITION ADDRESSED 2)DATA: TESTS INTERPRETED AND OR ORDERED, TOOK INDEPENDENT HISTORY OR RECORDS REVIEWED 3)RISK: MODERATE RISK DUE TO NATURE OF MEDICAL CONDITIONS/COMORBIDITY OR MEDICATIONS ORDERED OR SURGICAL OR PROCEDURE REFERRAL, . Reviewed labs and Testing on file Patient to follow diet low in cholesterol, fat, and sodium. Patient is advised to increase Exercise. Patient is recommended to lose weight. Reviewed Meds and discussed common side effects Continue as directed Elevated H/H and ferritin - no known fam hx - consider this is reactive process - advised we monitor and repeat in 1-3 mo and consider referral to heme as discussed DM - stable Stage 3 renal dz - stable Poor healing - advised to follow with wound clinic - I do question referral to ID for second opinion - pt to call if she wants to pursue Given the known raynauds and some of her other symptoms - suggest repeat work up for further auto-immune etiologies Patient is strongly advised to be compliant with recommendations. Return to Clinic sooner if needed. Patient denies further questions/concerns at this time Assessment/Plan Problem List Items Addressed This Visit Chronic renal insufficiency, stage III (moderate) (CMS/HCC) Hypertension associated with diabetes ([facility]) - Primary Relevant Orders CBC and Auto Differential Comprehensive Metabolic Panel Hemoglobin A1C Lipid Panel Thyroid Stimulating Hormone Thyroxine, Free Iron and TIBC Ferritin Magnesium Vitamin B12 Controlled type 2 diabetes mellitus with hyperglycemia, without long-term current use of insulin (CMS/[facility]) Relevant Orders CBC and Auto Differential Comprehensive Metabolic Panel Hemoglobin A1C Lipid Panel Thyroid Stimulating Hormone Thyroxine, Free Iron and TIBC Ferritin Magnesium Vitamin B12 Raynauds disease Relevant Orders Anti-DNA Antibody, Double-Stranded Citrulline Antibody, IgG C-Reactive Protein Rheumatoid Factor Sedimentation Rate NICOLE + VALENCIA Panel Non-healing wound of lower extremity Relevant Orders Anti-DNA Antibody, Double-Stranded Citrulline Antibody, IgG C-Reactive Protein Rheumatoid Factor Sedimentation Rate NICOLE + VALENCIA Panel Non-healing wound of upper extremity Overweight (BMI 25.0-29.9) Elevated ferritin Relevant Orders Iron and TIBC Ferritin Other Visit Diagnoses Bilateral hand pain Relevant Orders Anti-DNA Antibody, Double-Stranded Citrulline Antibody, IgG C-Reactive Protein Rheumatoid Factor Sedimentation Rate NICOLE + VALENCIA Panel FU in 3 mo with labs at [facility] fasting and med check documented in this [facility] Work Phone: 1(179) 952-681809-07-2023 Progress note Author Pato Correa [facility] November 16, 2022 12:53pm Note Date/Time November 16, 2022 12:44pm [facility] [address] [place] [address] Progress Note - Wound Care 11/16/22 1243 MR#: [id number] Acct: [id number] Name: JAYNA SMITH Rep #:[id number] : 1985 37 From: Pato tran MD PCP: MOISÉS Walker Status:REG RCR Location: History of Present Illness Date of Service: 11/16/22 Chief Complaint: Left Leg Ulcer. Right Middle finger ulcer History of Wound: Ms. Lemus is a 36-year-old who was referred to the wound center due to nonhealing left lower extremity and right hand ulcers. Left lowerextremity ulcer started a year ago. She believes that it opened after poison param dermatitis a year ago following tattoo to the area. She states that she hasbeen keeping it clean and about a month ago started putting Bactroban on it however no significant improvement. Right middle finger ulcer started a month ago. Works at [employer] and also has Raynaud's disease. She believes that itmay have started from repeated pushing of the air Fryer at work. Significant pain reported especially in the right middle finger. History of diabetes mellitus and last A1c was at 6.6. Currently not on any medication. Also history of tobacco abuse. Progress of Wound: No new concerns. Left Lower extremity Ulcer with no growth. Objective Data Objective Data Vital Signs: Vital Signs Temp Pulse Resp BP 96.8 F L 74 18 125/95 H 11/16/22 10:51 11/16/22 10:51 11/16/22 10:51 11/16/22 10:51 Weight: 186 lb Body Mass Index (BMI) 28.3 Charges/Coding Procedures Integumentary 111xxx-113xx: [id number] [place] subq tissue 20 sq cm/< Physical Exam Const alert, oriented x3 and no apparent distress General Appearance: cooperative, comfortable and well kempt HEENT normocephalic, head/scalp atraumatic and hearing grossly normal bilaterally Eyes General Eye: normal appearance of both eyes Neck full ROM and supple General: normal visual inspection Resp normal respiratory effort Effort and Inspection: able to speak in complete sentences Extremity General Extremity: edema Skin Wounds: wounds noted Neuro oriented x3, CN's II-XII intact bilaterally, moves all extremities and no focal motor deficits Psych mental status grossly normal, thought process normal, cooperative and affect normal Debridement Note Debridement Note Wound debrided: Left Lower Extremity Type of Debridement: Excisional debridement Anesthesia Used: 4% Lidocaine Solution Depth: Down to and including healthy tissue and in the subcutaneous layer Percentage of wound debrided: 100 Instrument Used: 5mm curette Tissue Removed: Slough and devitalized tissue Severity: Fat Layer Exposed Amount of bleeding with debridement: Mild Bleeding Controlled with: Pressure Patient tolerated procedure: Patient tolerated procedure well Post-Debridement Measurements and Additional Note: Post-Debridement Measurements/Treatment JERMAINE - Nurse 1 - General Ulcer Assessment Start: 11/16/22 10:51 Freq: Status: Active Protocol: KAMI Activity Type Activity Date Activity User E-sign Co-sign Detail Recorded Client Recorded Date Recorded By Document 11/16/22 10:51 YUDITH [id number] 11/16/22 10:53 RB 11/16/22 10:51 JERMAINE - Today's Visit Information Type of service Follow-up Visit (Physician/CUSTOMER ENGINEER ) Arrival Mode Ambulatory Transfer Assistance None Patient Identification Verified (Name & Yes ) Height and Weight Body Mass Index (BMI) 28.3 BMI Classification Overweight Vital Signs Temperature (97.8 F-99.1 F) 96.8 F L Temperature Source Temporal Pulse Rate (60-100) 74 Pulse Location Monitor Respiratory Rate (12-18) 18 Respiratory rate source Observation Blood Pressure (90/60-120/80) 125/95 H Blood Pressure Mean (mm Hg) 105 Source Monitor Position Semi-Fowlers Blood Pressure Location Left Arm History Since Last Visit- (Skip if this is Patient's initial visit) Have you changed medications since your No last visit? Any new allergies or adverse reactions No Had a fall/change in ADL's that may No increase risk of falls Signs or symptoms of abuse and/or No neglect since last visit Have you been in the hospital since your No last visit? Has dressing in place as prescribed Yes Has compression in place as prescribed No Has offloadiing in place as prescribed No Experienced any changes in pain level or No management Pain Scale: 0-10 Numeric Is Patient Pain Free? Yes JERMAINE [place] Nurse 1 - General Ulcer Measurement Start: 11/16/22 10:51 Freq: Status: Active Protocol: Activity Type Activity Date Activity User E-sign Co-sign Detail Recorded Client Recorded Date Recorded By Document 11/16/22 10:51 YUDITH [id number] 11/16/22 10:53 RB 11/16/22 10:51 Wound Center Nurse 1 #2- L DOHERTY -Combined with other wound No -Current Size (cm) - Length 2.9 -Current Size (cm) - Width 1.7 -Current Size (cm) - Depth 0.2 -Total Square Cm 4.93 -Photo Taken Yes -Tunneling No -Undermining/Tunneling No -Circular Undermining No -Exudate Amt Medium -Exudate Type Serosanguineous -Wound Margin Distinct, Outline Attached -Granulation Amt Medium (34-66%) -Granulation Quality [place] -Slough/Fibrin Yes -Necrosis Amt Medium (34-66%) -Necrotic Tissue Type Adherent Slough -Structure Exposed N/A -Texture (Diamond-wound Skin Appearance) Assessed -Moisture (Diamond-wound Skin Appearance) Assessed -Color (Diamond-wound Skin Appearance) Assessed -Temperature (Diamond-wound Skin No Abnormality Appearance) (Pt Warm) -Tenderness on Palpation (Diamond-wound No Skin Appearance) -Ulcer Cleansing Wound Cleanser -Foul Odor after Cleansing No -Anesthetic Used 4% Lidocaine Solution,5% Lidocaine Gel #1- R MIDDLE FINGER -Combined with other wound No -Current Size (cm) - Length 0.1 -Current Size (cm) - Width 0.1 -Current Size (cm) - Depth 0.1 -Total Square Cm 0.01 -Photo Taken Yes -Tunneling No -Undermining/Tunneling No -Circular Undermining No -Exudate Amt Medium -Exudate Type Serosanguineous -Wound Margin Distinct, Outline Attached -Granulation Amt Medium (34-66%) -Granulation Quality [place] -Slough/Fibrin Yes -Necrosis Amt Medium (34-66%) -Necrotic Tissue Type Adherent Slough -Structure Exposed N/A -Texture (Diamond-wound Skin Appearance) Assessed -Moisture (Diamond-wound Skin Appearance) Assessed -Color (Diamond-wound Skin Appearance) Assessed -Temperature (Diamond-wound Skin No Abnormality Appearance) (Pt Warm) -Tenderness on Palpation (Diamond-wound No Skin Appearance) -Ulcer Cleansing Wound Cleanser -Foul Odor after Cleansing No -Anesthetic Used 4% Lidocaine Solution,5% Lidocaine Gel Lower Limb Edema Present Yes Left Calf (cm) 37.5 Left Ankle (cm) 26.5 WC - Nurse 2 - General Ulcer CM Notes Start: 11/16/22 10:51 Freq: Status: Active Protocol: Activity Type Activity Date Activity User E-sign Co-sign Detail Recorded Client Recorded Date Recorded By Document 11/16/22 11:13 [id number] 11/16/22 11:19 11/16/22 11:13 Wound Center Nurse 2 #2- L DOHERTY -Time 11:14 -Correct Patient Yes -Correct Side, Site, Position Yes -Correct Procedure Yes -Procedure Performed Yes -Type of Procedure Debridement -Clinical Debridement Subcutaneous -Tissue Removed Subcutaneous -Post Debridement (cm) - Length 2.8 -Post Debridement (cm) - Width 1.8 -Post Debridement (cm) - Depth 0.2 -Total Square (Post) (cm) 5.04 -Area of Debridement (cm) - Length 2.8 -Area of Debridement (cm) - Width 1.8 -Total Square (Area) (cm) 5.04 -Tunneling No -Undermining/Tunneling No -Circular Undermining No -Wound/Ulcer Outcome Not Healed -Ulcer Cleansing Rinsed/ Irrigated with Saline -Foul Odor after Cleansing No -Bioengineered Tissue No -Bleeding Controlled with Pressure -Treatment Response Procedure Tolerated Well -Offloading No -Debridement - Subq, 1st 20sq cm Yes #1- R MIDDLE FINGER -Time 11:15 -Correct Patient No -Correct Side, Site, Position No -Correct Procedure No -Procedure Performed No -Tunneling No -Undermining/Tunneling No -Circular Undermining No -Wound/Ulcer Outcome Not Healed -Foul Odor after Cleansing No -Bioengineered Tissue No -Bleeding Controlled with Pressure -Treatment Response Procedure Not Tolerated Well -Offloading No -Debridement - Subq, 1st 20sq cm No Pain Scale: 0-10 Numeric Is Patient Pain Free? Yes WC - Nurse 3 - General Ulcer D/C NN Start: 11/16/22 10:51 Freq: Status: Active Protocol: Activity Type Activity Date Activity User E-sign Co-sign Detail Recorded Client Recorded Date Recorded By Document 11/16/22 11:38 [facility] [id number] 11/16/22 11:39 [facility] 11/16/22 11:38 Wound Care Center Nurse 3 #2- L DOHERTY -Ulcer Cleansing Rinsed/ Irrigated with Saline -Foul Odor after Cleansing No -Primary Dressing Applied Fibracol Plus 4x4 -Other Dressing ABD -Fibracol Plus 4x4 1 #1- R MIDDLE FINGER -Ulcer Cleansing Rinsed/ Irrigated with Saline -Foul Odor after Cleansing No -Primary Dressing Applied Fibracol Plus 4x4 -Primary Dressing Covered/Secured with Dry Gauze, Secured with Tape -Fibracol Plus 4x4 0 Left -Multi-Layered Wrap Application Multi-Layer Comp - Left ($) Pain Scale: 0-10 Numeric Is Patient Pain Free? Yes WC - Visit Discharge Discharge Condition Stable Ambulatory Status Ambulatory Transportation Private Auto Assessment/Plan Assessment/Plan (1) Ulcer of left lower extremity with fat layer exposed: CODE(S): L97.922 - Non-pressure chronic ulcer of unspecified part of left lower leg with fat layer exposed (2) Type 2 diabetes mellitus: CODE(S): E11.9 - Type 2 diabetes mellitus without complications QUALIFIERS: Diabetes mellitus shelter insulin use: without termination clerk use Diabetes mellitus complication status: with other specified complication Qualified Code(s): E11.69 - Type 2 diabetes mellitus with other specified complication (3) Raynauds disease: CODE(S): I73.00 - Raynaud's syndrome without gangrene QUALIFIERS: Raynaud?s-associated gangrene presence: with gangrene Qualified Code(s): I73.01 - Raynaud's syndrome with gangrene (4) Skin ulcer of hand: CODE(S): L98.499 - Non-pressure chronic ulcer of skin of other sites with unspecified severity QUALIFIERS: Non-pressure ulcer stage: unspecified non-pressure ulcer stage Qualified Code(s): L98.499 - Non-pressure chronic ulcer of skin of other sites with unspecified severity PLAN: Plan Debridement done as documented above, procedure was better tolerated. Still hassignificant lower extremity edema. Switch to Fibricol, cover with gauze. 3M wrap for edema management, leave in place for a week. Continue hydrogel to right middle finger, change daily. Increase protein intake, vitamin C, D and zinc also discussed to aid in wound healing, patient voiced understanding. Callwith any concerns and follow-up in a week or sooner if needed. This note was generated with [employer] software. It may contain incorrectwords, spelling, and punctuation that were not noted in checking the note beforesigning. 11/16/22 1253 <Electronically signed by Pato Correa MD> Cosigner Signature (if applicable): CC: ~ Signed [facility] Work Phone: [phone]) 654-668308-31-2023 Progress note Author Pato Correa [facility] November 09, 2022 1:03pm Note Date/Time November 09, 2022 1: 01pm [facility] [address] [place] [address] Progress Note - Wound Care 11/09/22 1256 MR#: [id number] Acct: [id number] Name: JAYNA SMITH Rep #:[id number] : 1985 37 From: Pato tran MD PCP: MOISÉS Walker Status:REG RCR Location: History of Present Illness Date of Service: 11/09/22 Chief Complaint: Left Leg Ulcer. Right Middle finger ulcer History of Wound: Ms. Lemus is a 36-year-old who was referred to the wound center due to nonhealing left lower extremity and right hand ulcers. Left lowerextremity ulcer started a year ago. She believes that it opened after poison param dermatitis a year ago following tattoo to the area. She states that she hasbeen keeping it clean and about a month ago started putting Bactroban on it however no significant improvement. Right middle finger ulcer started a month ago. Works at [employer] and also has Raynaud's disease. She believes that itmay have started from repeated pushing of the air Fryer at work. Significant pain reported especially in the right middle finger. History of diabetes mellitus and last A1c was at 6.6. Currently not on any medication. Also history of tobacco abuse. Progress of Wound: Here 3 weeks ago. She states that she was concerned about infection to her leftlower extremity because she had not been washing it appropriately. Started using Silvadene in addition to Aquacel. Has been applying hydrogel to right finger. Objective Data Objective Data Vital Signs: Vital Signs Temp Pulse Resp BP O2 Del Method 96.5 F L 80 16 123/93 H Room Air 11/09/22 10:15 11/09/22 10:15 10/12/22 08:58 11/09/22 10:15 10/12/22 08:58 Oxygen Delivery Method Room Air Weight: 186 lb Body Mass Index (BMI) 28.3 Lab / Micro Data Micro: Microbiology 10/12/22 10:00 Wound - Leg, Right Gram Stain - Final 10/12/22 10:00 Wound - Leg, Right Wound Culture - Final Staphylococcus epidermidis Corynebacterium glucuronolytic 10/12/22 10:00 Wound - Leg, Right Anaerobic Culture - Final Anaerobic cocci Charges/Coding Procedures Integumentary [id number]: [id number] Aurelia subq tissue 20 sq cm/< Physical Exam Const alert, oriented x3 and no apparent distress General Appearance: cooperative, comfortable and well kempt HEENT normocephalic, head/scalp atraumatic and hearing grossly normal bilaterally Eyes General Eye: normal appearance of both eyes Neck full ROM and supple General: normal visual inspection Resp normal respiratory effort Effort and Inspection: able to speak in complete sentences Extremity General Extremity: edema Skin Wounds: wounds noted Neuro oriented x3, CN's II-XII intact bilaterally, moves all extremities and no focal motor deficits Psych mental status grossly normal, thought process normal, cooperative and affect normal Debridement Note Debridement Note Wound debrided: Left Lower Extremity Type of Debridement: Excisional debridement Anesthesia Used: 4% Lidocaine Solution Depth: Down to and including healthy tissue and in the subcutaneous layer Percentage of wound debrided: 100 Instrument Used: 5mm curette Tissue Removed: Slough and devitalized tissue Severity: Fat Layer Exposed Amount of bleeding with debridement: Mild Bleeding Controlled with: Pressure Patient tolerated procedure: Patient tolerated procedure well Post-Debridement Measurements and Additional Note: Post-Debridement Measurements/Treatment - Nurse 1 - General Ulcer Assessment Start: 10/12/22 08:57 Freq: Status: Active Protocol: KAMI Activity Type Activity Date Activity User E-sign Co-sign Detail Recorded Client Recorded Date Recorded By Document 10/12/22 08:58 [facility] [id number] 10/12/22 09:11 [facility] Document 11/09/22 10:15 [facility] [id number] 11/09/22 10:25 [facility] 10/12/22 11/09/22 08:58 10:15 - Today's Visit Information Type of service Initial Visit Follow-up Visit (Physician/CUSTOMER ENGINEER ) Arrival Mode Ambulatory Ambulatory Transfer Assistance None None Patient Identification Verified (Name & Yes Yes ) Patient Requires Transmission-Based No No Precautions Height and Weight Height 5 ft 8 in Weight 186 lb Weight in Pounds 186.0 lbs Weight Measurement Method Stated by Patient Body Mass Index (BMI) 28.3 28.3 BMI Classification Overweight Overweight BSA - Sabine 1.98 Vital Signs Temperature (97.8 F-99.1 F) 96.7 F L 96.5 F L Temperature Source Temporal Temporal Pulse Rate (60-100) 78 80 Pulse Location Monitor Monitor Respiratory Rate (12-18) 16 Respiratory rate source Observation Oxygen Delivery Method Room Air Blood Pressure (90/60-120/80) 138/100 H 123/93 H Blood Pressure Mean (mm Hg) 112 103 Source Monitor Monitor Position Sitting Sitting Blood Pressure Location Left Arm Left Arm History Since Last Visit- (Skip if this is Patient's initial visit) Have you changed medications since your No last visit? Any new allergies or adverse reactions No Had a fall/change in ADL's that may No increase risk of falls Signs or symptoms of abuse and/or No neglect since last visit Have you been in the hospital since your No last visit? Has dressing in place as prescribed No Has compression in place as prescribed No Has offloadiing in place as prescribed N/A Experienced any changes in pain level or No management Left Footwear Regular Shoe Regular Shoe Right Footwear Regular Shoe Regular Shoe Pain Scale: 0-10 Numeric Is Patient Pain Free? Yes Yes Lower Extremity Assessment/ Foot Assessment/ Toe Nail Assessment Right -Lower Extremity Comment (If N/A Above REYNAUDS, TOES ) BLUISH. PT STATES THIS IS NORMAL WHEN SHES COLD -Posterior Tibial Palpable No -Posterior Tibial Doppler Monophasic -Dorsalis Pedis Palpable No -Dorsalis Pedis Doppler Monophasic -Hair Growth on Legs Yes -Hair Growth on Toes No -Temperature of Extremity Cool -Other Deformity No -Prior Foot Ulcer No -Charcot Joint No -Prior Amputation No -Thick No -Discolored No -Deformed No -Improper Length & Hygeine No Left -Lower Extremity Comment (If N/A Above REYNAUDS, TOES ) BLUE TINGED -Posterior Tibial Palpable No -Posterior Tibial Doppler Monophasic -Dorsalis Pedis Palpable Yes -Dorsalis Pedis Doppler Monophasic -Hair Growth on Legs Yes -Hair Growth on Toes No -Temperature of Extremity Cool -Other Deformity No -Prior Foot Ulcer No -Charcot Joint No -Prior Amputation No -Thick No -Discolored No -Deformed No -Improper Length & Hygeine No Neuropathy Assessment Feet - Top Side and Bottom <Entered> (a) Communication Assessment Preferred language Chadian Washroom 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 No Able to Read Yes Able to Write Yes Communication Tools None Right Hearing Abillity Normal Left Hearing Abillity Normal Visual Assistive Devices Glasses Teaching Assessment Preferences Verbal,Written, Audio/Visual, Demonstration Barriers to Learning None Readiness To Learn Excellent Willingness to Engage in Self Management High Activies Readiness to Engage in Self Management High Activities Anxiety Level Calm Cooperation Cooperative Perception Coherent Interest in Health Problem Asks Questions Education Importance Acknowledges Need Does Patient Smoke tobacco or other No substances Smoking Status Current every day smoker Is Patient Diabetic Yes Functional Assessment Recent Decline in Ability to Perform Denies Any Declines 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 Needs that may affect No Treatment Plan Teaching: Wound Center *Welcome to the Wound Center -Person Taught Patient -Teaching Method Discussion -Response to teaching Verbalize understanding Welcome to the Wound Care Center Chadian (a) 1 - + - Nurse 1 - General Ulcer Measurement Start: 10/12/22 08:57 Freq: Status: Active Protocol: Activity Type Activity Date Activity User E-sign Co-sign Detail Recorded Client Recorded Date Recorded By Document 10/12/22 08:58 [facility] [id number] 10/12/22 09:11 [facility] Document 11/09/22 10:15 [facility] [id number] 11/09/22 10:25 [facility] 10/12/22 11/09/22 08:58 10:15 Wound Center Nurse 1 #2- L DOHERTY -Combined with other wound No No -Current Size (cm) - Length 2.8 2.4 -Current Size (cm) - Width 1.6 1.2 -Current Size (cm) - Depth 0.1 0.2 -Total Square Cm 4.48 2.88 -Date of Last Picture (Recall this 10/12/22 11/09/22 field) -Photo Taken Yes Yes -Epithelialization None Present None Present -Tunneling No No -Undermining/Tunneling No No -Circular Undermining No No -Exudate Amt Medium Medium -Exudate Type Serosanguineous Serosanguineous -Wound Margin Flat & Intact Distinct, Outline Attached -Granulation Amt Small (1-33%) None Present (0 %) -Granulation Quality Red -Slough/Fibrin Yes Yes -Necrosis Amt Large (67-100%) Large (67-100%) -Necrotic Tissue Type Adherent Slough Adherent Slough -Texture (Diamond-wound Skin Appearance) Assessed, Assessed, Scarring Scarring -Moisture (Diamond-wound Skin Appearance) Assessed Assessed -Color (Diamond-wound Skin Appearance) Assessed, Assessed, Erythema Hemosiderin Staining -Temperature (Diamond-wound Skin No Abnormality No Abnormality Appearance) (Pt Warm) (Pt Warm) -Tenderness on Palpation (Diamond-wound No No Skin Appearance) -Ulcer Cleansing Soap and Water Soap and Water -Foul Odor after Cleansing No No -Anesthetic Used 5% Lidocaine 5% Lidocaine Gel Gel #1- R MIDDLE FINGER -Combined with other wound No No -Current Size (cm) - Length 0.1 0.6 -Current Size (cm) - Width 0.1 0.7 -Current Size (cm) - Depth 0.1 0.1 -Total Square Cm 0.01 0.42 -Date of Last Picture (Recall this 10/12/22 11/09/22 field) -Photo Taken Yes Yes -Epithelialization None Present None Present -Tunneling No No -Undermining/Tunneling No No -Circular Undermining No No -Exudate Amt Small -Exudate Type Serous -Wound Margin Distinct, Outline Attached -Granulation Amt None Present (0 None Present (0 %) %) -Slough/Fibrin Yes Yes -Necrosis Amt Large (67-100%) Large (67-100%) -Necrotic Tissue Type Eschar Adherent Slough -Texture (Diamond-wound Skin Appearance) Assessed Assessed, Scarring -Moisture (Diamond-wound Skin Appearance) Assessed Assessed -Color (Diamond-wound Skin Appearance) Assessed, Assessed, Cyanosis Erythema -Temperature (Diamond-wound Skin No Abnormality No Abnormality Appearance) (Pt Warm) (Pt Warm) -Tenderness on Palpation (Diamond-wound No No Skin Appearance) -Ulcer Cleansing Soap and Water Rinsed/ Irrigated with Saline -Foul Odor after Cleansing No No -Anesthetic Used 5% Lidocaine 5% Lidocaine Gel Gel -Wound Comment(s) PT W/ REYNAUDS. FNGERS BLUE TINGED Lower Limb Edema Present Yes Yes Right Calf (cm) 42 Right Ankle (cm) 26 Left Calf (cm) 43.3 38.2 Left Ankle (cm) 24.2 25.6 WC - Nurse 2 - General Ulcer CM Notes Start: 10/12/22 08:57 Freq: Status: Active Protocol: Activity Type Activity Date Activity User E-sign Co-sign Detail Recorded Client Recorded Date Recorded By Document 10/12/22 09:50 MW [id number] 10/12/22 10:05 MW Document 11/09/22 10:42 [id number] 11/09/22 10:45 10/12/22 11/09/22 09:50 10:42 Wound Center Nurse 2 #2- L DOHERTY -Time 09:50 10:44 -Correct Patient Yes Yes -Correct Side, Site, Position Yes Yes -Correct Procedure Yes Yes -Procedure Performed Yes Yes -Type of Procedure Debridement Debridement -Clinical Debridement Subcutaneous Subcutaneous -Tissue Removed Subcutaneous Subcutaneous -Post Debridement (cm) - Length 3.0 2.5 -Post Debridement (cm) - Width 2.0 2.2 -Post Debridement (cm) - Depth 0.1 0.2 -Total Square (Post) (cm) 6.00 5.50 -Area of Debridement (cm) - Length 3.0 2.5 -Area of Debridement (cm) - Width 2.0 2.2 -Total Square (Area) (cm) 6.00 5.50 -Tunneling No No -Undermining/Tunneling No No -Circular Undermining No No -Wound/Ulcer Outcome Not Healed Not Healed -Ulcer Cleansing Rinsed/ Rinsed/ Irrigated with Irrigated with Saline Saline -Foul Odor after Cleansing No No -Bioengineered Tissue No No -Bleeding Controlled with Pressure Pressure -Treatment Response Procedure Procedure Tolerated Well Tolerated Well -Offloading No No -Debridement - Subq, 1st 20sq cm Yes Yes #1- R MIDDLE FINGER -Time 09:50 10:44 -Correct Patient Yes Yes -Correct Side, Site, Position Yes Yes -Correct Procedure Yes Yes -Procedure Performed No Yes -Type of Procedure Debridement -Clinical Debridement Subcutaneous -Tissue Removed Subcutaneous -Post Debridement (cm) - Length 0.1 0.7 -Post Debridement (cm) - Width 0.1 0.5 -Post Debridement (cm) - Depth 0.1 0.1 -Total Square (Post) (cm) 0.01 0.35 -Area of Debridement (cm) - Length 0.7 -Area of Debridement (cm) - Width 0.5 -Total Square (Area) (cm) 0.35 -Tunneling No No -Undermining/Tunneling No No -Circular Undermining No No -Wound/Ulcer Outcome Not Healed Not Healed -Ulcer Cleansing Rinsed/ Rinsed/ Irrigated with Irrigated with Saline Saline -Foul Odor after Cleansing No No -Bioengineered Tissue No No -Bleeding Controlled with Pressure -Treatment Response Procedure Tolerated Well -Offloading No -Debridement - Subq, 1st 20sq cm No Pain Scale: 0-10 Numeric Is Patient Pain Free? Yes Yes - Nurse 3 - General Ulcer D/C NN Start: 10/12/22 08:57 Freq: Status: Active Protocol: Activity Type Activity Date Activity User E-sign Co-sign Detail Recorded Client Recorded Date Recorded By Document 10/12/22 10:09 [id number] 10/12/22 10:11 RB Document 11/09/22 11:07 RB [id number] 11/09/22 11:09 RB 10/12/22 11/09/22 10:09 11:07 Wound Care Center Nurse 3 #2- L DOHERTY -Ulcer Cleansing Rinsed/ Rinsed/ Irrigated with Irrigated with Saline Saline -Primary Dressing Applied Aquacel Extra, Aquacel Extra, Mepilex Border Mepilex Border -Aquacel Extra 1 1 -Mepilex Border 1 1 #1- R MIDDLE FINGER -Ulcer Cleansing Rinsed/ Irrigated with Saline -Primary Dressing Applied C Hydrogel ($), NonAdherent NonAdherent Contact Layer Contact Layer -Other Dressing hydrogel -Primary Dressing Covered/Secured with Dry Gauze & Dry Gauze, Roll Gauze, Secured with Secured with Tape Tape Right -Tubular Bandage Double Layer Double Layer -Size of Tubigrip Used Size E Size D -Size D ($) 2 -Size E ($) 2 Left -Tubular Bandage Double Layer Double Layer -Size of Tubigrip Used Size E Size D -Size D ($) 2 -Size E ($) 2 Treatment Response Procedure Tolerated Well Pain Scale: 0-10 Numeric Is Patient Pain Free? Yes Yes WC - Visit Discharge Discharge Condition Stable Stable Ambulatory Status Ambulatory Ambulatory Transportation Private Auto Private Auto Medication Reconcilliation completed & No No provided to patient/care provider Clinical Summary of Care Provided Yes Yes Notes: assisted Lizet Bowden RN with dressing change Additional Wound Wound debrided: Right Middle Finger Type of Debridement: Excisional debridement Anesthesia Used: 4% Lidocaine Solution Depth: Down to and including healthy tissue and in the subcutaneous layer Percentage of wound debrided: 100 Instrument Used: #15 blade and Forceps Tissue Removed: Slough and Devitalized tissue Severity: Fat Layer Exposed Amount of bleeding with debridement: Mild Bleeding Controlled with: Pressure Patient tolerated procedure: Patient tolerated procedure well Assessment/Plan Assessment/Plan (1) Ulcer of left lower extremity with fat layer exposed: CODE(S): L97.922 - Non-pressure chronic ulcer of unspecified part of left lower leg with fat layer exposed (2) Type 2 diabetes mellitus: CODE(S): E11.9 - Type 2 diabetes mellitus without complications QUALIFIERS: Diabetes mellitus termination clerk insulin use: without termination clerk use Diabetes mellitus complication status: with other specified complication Qualified Code(s): E11.69 - Type 2 diabetes mellitus with other specified complication (3) Raynauds disease: CODE(S): I73.00 - Raynaud's syndrome without gangrene QUALIFIERS: Raynaud?s-associated gangrene presence: with gangrene Qualified Code(s): I73.01 - Raynaud's syndrome with gangrene (4) Skin ulcer of hand: CODE(S): L98.499 - Non-pressure chronic ulcer of skin of other sites with unspecified severity QUALIFIERS: Non-pressure ulcer stage: unspecified non-pressure ulcer stage Qualified Code(s): L98.499 - Non-pressure chronic ulcer of skin of other sites with unspecified severity PLAN: Plan Debridement done as documented above, procedure was better tolerated. Repeat culture taken after debridement due to her concern for infection. Significant slough noted. She was advised to clean with soap and water. Continue Aquacel extra to left lower extremity. Foam dressing over top. Change daily to twice daily depending on drainage. Double layer Tubigrip for edema management. Continue hydrogel to right middle finger, change daily. Increase protein intake,vitamin C, D and zinc also discussed to aid in wound healing, patient voiced understanding. Follow-up in a week or sooner if needed. This note was generated with [employer] software. It may contain incorrectwords, spelling, and punctuation that were not noted in checking the note beforesigning. 11/09/22 1303 <Electronically signed by Pato Correa MD> Cosigner Signature (if applicable): CC: ~ Signed [facility] Work Phone: 1(922) [phone] History and physical note Author Pato Correa [facility] October 12, 2022 1:38pm Note Date/Time October 12, 2022 1:0 8pm [facility] [address] [place] [address] H&P Exam - Wound Care 10/12/22 1300 MR#: [id number] Acct: [id number] Name: JAYNA SMITH Rep #:[id number] : 1985 36 From: Pato tran MD PCP: MOISÉS Walker Status:REG RCR Location: History of Present Illness Date of Service: 10/12/22 Chief Complaint: Left Leg Ulcer. Right Middle finger ulcer History of Wound: Ms. Lemus is a 36-year-old who was referred to the wound center due to nonhealing left lower extremity and right hand ulcers. Left lowerextremity ulcer started a year ago. She believes that it opened after poison param dermatitis a year ago following tattoo to the area. She states that she hasbeen keeping it clean and about a month ago started putting Bactroban on it however no significant improvement. Right middle finger ulcer started a month ago. Works at [employer] and also has Raynaud's disease. She believes that itmay have started from repeated pushing of the air Fryer at work. Significant pain reported especially in the right middle finger. History of diabetes mellitus and last A1c was at 6.6. Currently not on any medication. Also history of tobacco abuse. [facility] Medical History (Updated 10/12/22 @ 13:[address] Pato Correa MD) Raynauds disease Skin ulcer of hand Type 2 diabetes mellitus Ulcer of left lower extremity with fat layer exposed Home Medications buspirone 5 mg tablet 5 mg PO TID PRN anxiety 10/12/22 [History Last Taken Unknown] lisinopril 2.5 mg tablet 2.5 mg PO DAILY 10/12/22 [History Last Taken Unknown] loratadine 10 mg tablet (Claritin) 10 mg PO DAILY PRN allergic symptoms 10/12/22[History Last Taken Unknown] mupirocin 2 % topical ointment 1 applic topical DAILY 10/12/22 [History Last Taken Unknown] Allergy/AdvReac Type Severity Reaction Status Date / Time No Known Allergies Allergy Verified 10/12/22 09:16 Social History Smoking Status: Current every day smoker ROS Constitutional Constitutional: Denies change in weight, chills, daytime sleepiness, fatigue, fever(s), frequent falls, headache(s), increased appetite, lethargy, malaise or night sweats Eyes Eyes: Denies blind spots, bloody eye, blurry vision, change in eye color, changein vision, decreased night vision, discharge from eye(s), discongugate gaze or excessive blinking ENT HEENT: Denies foreign body in nose, halitosis, headache(s), hearing loss, mouth pain or nasal congestion Cardiovascular Cardiovascular: Reports cold extremities; Denies diaphoresis, dizziness, dyspnea, dyspnea at rest, dyspnea on exertion or easily tiring during activity Respiratory/Chest Respiratory/Chest: Denies chest congestion, chest tightness, excessive phlegm production, hemoptysis, hoarseness, inability to speak or mouth breathing Gastrointestinal Gastrointestinal: Denies chewing difficulty, coffee ground emesis, constipation,cramping, diarrhea, dry heaves, dyspepsia, dysphagia or early satiety Genitourinary Genitourinary: Denies abdominal discomfort, dribbling, erectile dysfunction, external genitalia discoloration, flank pain or genital lesions Musculoskeletal Musculoskeletal: Denies joint swelling, loss of height, muscle cramps, muscle weakness, myalgias, neck pain or numbness Integumentary Integumentary: Denies changing lesions, erythema, hirsutism, jaundice, nail changes or pruritus Neurologic Neurologic: Denies abnormal speech, behavior changes, burning sensations, convulsions, disequilibrium, dizziness, focal weakness or frequent falls Psychiatric Psychiatric: Denies auditory hallucinations, change in appetite, cognitive impairment, confusion, depression, difficulty concentrating or hallucinations Endocrine Endocrinology: Denies change in body appearance, cold intolerance, deepening of the voice, excessive sweating, fatigue or heat intolerance Hematologic/Lymphatic Hematologic/Lymphatic: Denies anemia, easy bleeding or easy bruising Allergic/Immunologic Allergic/Immunologic: Denies lip swelling, rhinitis, throat swelling, tongue swelling, eczemia, wheezing or asthma Vital Signs Vital Signs Vital Signs: 10/12/22 08:58 Temperature 96.7 F L Temperature Source Temporal Pulse Rate 78 Respiratory Rate 16 Blood Pressure 138/100 H Blood Pressure Mean 112 Blood Pressure Source Monitor Blood Pressure Position Sitting Blood Pressure Location Left Arm Oxygen Delivery Method Room Air Weight Weight: 186 lb Body Mass Index (BMI) 28.3 Physical Exam Const alert, oriented x3 and no apparent distress General Appearance: cooperative, comfortable and well kempt HEENT normocephalic, head/scalp atraumatic and hearing grossly normal bilaterally Eyes General Eye: normal appearance of both eyes Neck full ROM and supple General: normal visual inspection Resp normal respiratory effort and normal air movement Effort and Inspection: able to speak in complete sentences Cardio regular rate, regular rhythm, S1 normal heart sound and S2 normal heart sound GI soft to palpation, non-tender and non-distended Extremity General Extremity: edema Skin Wounds: wounds noted Neuro oriented x3, CN's II-XII intact bilaterally, moves all extremities and no focal motor deficits Psych mental status grossly normal, thought process normal, cooperative and affect normal Debridement Note Debridement Note Wound debrided: Left Lower Extremity Type of Debridement: Excisional debridement Anesthesia Used: 4% Lidocaine Solution Depth: Down to and including healthy tissue and in the subcutaneous layer Percentage of wound debrided: 100 Instrument Used: 5mm curette Tissue Removed: Slough and devitalized tissue Severity: Fat Layer Exposed Amount of bleeding with debridement: Mild Bleeding Controlled with: Pressure Patient tolerated procedure: Patient tolerated procedure well Post-Debridement Measurements and Additional Note: Post-Debridement Measurements/Treatment - Nurse 1 - General Ulcer Assessment Start: 10/12/22 08:57 Freq: Status: Active Protocol: KAMI Activity Type Activity Date Activity User E-sign Co-sign Detail Recorded Client Recorded Date Recorded By Document 10/12/22 08:58 [facility] [id number] 10/12/22 09:11 [facility] 10/12/22 08:58 - Today's Visit Information Type of service Initial Visit Arrival Mode Ambulatory Transfer Assistance None Patient Identification Verified (Name & Yes ) Patient Requires Transmission-Based No Precautions Height and Weight Height 5 ft 8 in Weight 186 lb Weight in Pounds 186.0 lbs Weight Measurement Method Stated by Patient Body Mass Index (BMI) 28.3 BMI Classification Overweight BSA - [place] 1.98 Vital Signs Temperature (97.8 F-99.1 F) 96.7 F L Temperature Source Temporal Pulse Rate (60-100) 78 Pulse Location Monitor Respiratory Rate (12-18) 16 Respiratory rate source Observation Oxygen Delivery Method Room Air Blood Pressure (90/60-120/80) 138/100 H Blood Pressure Mean 112 Source Monitor Position Sitting Blood Pressure Location Left Arm History Since Last Visit- (Skip if this is Patient's initial visit) Left Footwear Regular Shoe Right Footwear Regular Shoe Pain Scale: 0-10 Numeric Is Patient Pain Free? Yes Lower Extremity Assessment/ Foot Assessment/ Toe Nail Assessment Right -Lower Extremity Comment (If N/A Above REYNAUDS, TOES ) BLUISH. PT STATES THIS IS NORMAL WHEN SHES COLD -Posterior Tibial Palpable No -Posterior Tibial Doppler Monophasic -Dorsalis Pedis Palpable No -Dorsalis Pedis Doppler Monophasic -Hair Growth on Legs Yes -Hair Growth on Toes No -Temperature of Extremity Cool -Other Deformity No -Prior Foot Ulcer No -Charcot Joint No -Prior Amputation No -Thick No -Discolored No -Deformed No -Improper Length & Hygeine No Left -Lower Extremity Comment (If N/A Above REYNAUDS, TOES ) BLUE TINGED -Posterior Tibial Palpable No -Posterior Tibial Doppler Monophasic -Dorsalis Pedis Palpable Yes -Dorsalis Pedis Doppler Monophasic -Hair Growth on Legs Yes -Hair Growth on Toes No -Temperature of Extremity Cool -Other Deformity No -Prior Foot Ulcer No -Charcot Joint No -Prior Amputation No -Thick No -Discolored No -Deformed No -Improper Length & Hygeine No Neuropathy Assessment Feet - Top Side and Bottom <Entered> (a) Communication Assessment Preferred language Chadian 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 No Able to Read Yes Able to Write Yes Communication Tools None Right Hearing Abillity Normal Left Hearing Abillity Normal Visual Assistive Devices Glasses Teaching Assessment Preferences Verbal,Written, Audio/Visual, Demonstration Barriers to Learning None Readiness To Learn Excellent Willingness to Engage in Self Management High Activies Readiness to Engage in Self Management High Activities Anxiety Level Calm Cooperation Cooperative Perception Coherent Interest in Health Problem Asks Questions Education Importance Acknowledges Need Does Patient Smoke tobacco or other No substances Smoking Status Current every day smoker Is Patient Diabetic Yes Functional Assessment Recent Decline in Ability to Perform Denies Any Declines 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 Needs that may affect No Treatment Plan Teaching: Wound Center *Welcome to the Wound Center -Person Taught Patient -Teaching Method Discussion -Response to teaching Verbalize understanding Welcome to the Wound Care Center [place] (a) 1 - + WC - Nurse 1 - General Ulcer Measurement Start: 10/12/22 08:57 Freq: Status: Active Protocol: Activity Type Activity Date Activity User E-sign Co-sign Detail Recorded Client Recorded Date Recorded By Document 10/12/22 08:58 [facility] [id number] 10/12/22 09:11 [facility] 10/12/22 08:58 Wound Center Nurse 1 #2- L DOHERTY -Combined with other wound No -Current Size (cm) - Length 2.8 -Current Size (cm) - Width 1.6 -Current Size (cm) - Depth 0.1 -Total Square Cm 4.48 -Date of Last Picture (Recall this 10/12/22 field) -Photo Taken Yes -Epithelialization None Present -Tunneling No -Undermining/Tunneling No -Circular Undermining No -Exudate Amt Medium -Exudate Type Serosanguineous -Wound Margin Flat & Intact -Granulation Amt Small (1-33%) -Granulation Quality Red -Slough/Fibrin Yes -Necrosis Amt Large (67-100%) -Necrotic Tissue Type Adherent Slough -Texture (Diamond-wound Skin Appearance) Assessed, Scarring -Moisture (Diamond-wound Skin Appearance) Assessed -Color (Diamond-wound Skin Appearance) Assessed, Erythema -Temperature (Diamond-wound Skin No Abnormality Appearance) (Pt Warm) -Tenderness on Palpation (Diamond-wound No Skin Appearance) -Ulcer Cleansing Soap and Water -Foul Odor after Cleansing No -Anesthetic Used 5% Lidocaine Gel #1- R MIDDLE FINGER -Combined with other wound No -Current Size (cm) - Length 0.1 -Current Size (cm) - Width 0.1 -Current Size (cm) - Depth 0.1 -Total Square Cm 0.01 -Date of Last Picture (Recall this 10/12/22 field) -Photo Taken Yes -Epithelialization None Present -Tunneling No -Undermining/Tunneling No -Circular Undermining No -Granulation Amt None Present (0 %) -Slough/Fibrin Yes -Necrosis Amt Large (67-100%) -Necrotic Tissue Type Eschar -Texture (Diamond-wound Skin Appearance) Assessed -Moisture (Diamond-wound Skin Appearance) Assessed -Color (Diamond-wound Skin Appearance) Assessed, Cyanosis -Temperature (Diamond-wound Skin No Abnormality Appearance) (Pt Warm) -Tenderness on Palpation (Diamond-wound No Skin Appearance) -Ulcer Cleansing Soap and Water -Foul Odor after Cleansing No -Anesthetic Used 5% Lidocaine Gel -Wound Comment(s) PT W/ ISA. FNGERS BLUE TINGED Lower Limb Edema Present Yes Right Calf (cm) 42 Right Ankle (cm) 26 Left Calf (cm) 43.3 Left Ankle (cm) 24.2 WC - Nurse 2 - General Ulcer CM Notes Start: 10/12/22 08:57 Freq: Status: Active Protocol: Activity Type Activity Date Activity User E-sign Co-sign Detail Recorded Client Recorded Date Recorded By Document 10/12/22 09:50 MW [id number] 10/12/22 10:05 MW 10/12/22 09:50 Wound Center Nurse 2 #2- L DOHERTY -Time 09:50 -Correct Patient Yes -Correct Side, Site, Position Yes -Correct Procedure Yes -Procedure Performed Yes -Type of Procedure Debridement -Clinical Debridement Subcutaneous -Tissue Removed Subcutaneous -Post Debridement (cm) - Length 3.0 -Post Debridement (cm) - Width 2.0 -Post Debridement (cm) - Depth 0.1 -Total Square (Post) (cm) 6.00 -Area of Debridement (cm) - Length 3.0 -Area of Debridement (cm) - Width 2.0 -Total Square (Area) (cm) 6.00 -Tunneling No -Undermining/Tunneling No -Circular Undermining No -Wound/Ulcer Outcome Not Healed -Ulcer Cleansing Rinsed/ Irrigated with Saline -Foul Odor after Cleansing No -Bioengineered Tissue No -Bleeding Controlled with Pressure -Treatment Response Procedure Tolerated Well -Offloading No -Debridement - Subq, 1st 20sq cm Yes #1- R MIDDLE FINGER -Time 09:50 -Correct Patient Yes -Correct Side, Site, Position Yes -Correct Procedure Yes -Procedure Performed No -Post Debridement (cm) - Length 0.1 -Post Debridement (cm) - Width 0.1 -Post Debridement (cm) - Depth 0.1 -Total Square (Post) (cm) 0.01 -Tunneling No -Undermining/Tunneling No -Circular Undermining No -Wound/Ulcer Outcome Not Healed -Ulcer Cleansing Rinsed/ Irrigated with Saline -Foul Odor after Cleansing No -Bioengineered Tissue No Pain Scale: 0-10 Numeric Is Patient Pain Free? Yes - Nurse 3 - General Ulcer D/C NN Start: 10/12/22 08:57 Freq: Status: Active Protocol: Activity Type Activity Date Activity User E-sign Co-sign Detail Recorded Client Recorded Date Recorded By Document 10/12/22 10:09 RB [id number] 10/12/22 10:11 RB 10/12/22 10:09 Wound Care Center Nurse 3 #2- L DOHERTY -Ulcer Cleansing Rinsed/ Irrigated with Saline -Primary Dressing Applied Aquacel Extra, Mepilex Border -Aquacel Extra 1 -Mepilex Border 1 #1- R MIDDLE FINGER -Ulcer Cleansing Rinsed/ Irrigated with Saline -Primary Dressing Applied C Hydrogel ($), NonAdherent Contact Layer -Primary Dressing Covered/Secured with Dry Gauze & Roll Gauze, Secured with Tape Right -Tubular Bandage Double Layer -Size of Tubigrip Used Size E -Size E ($) 2 Left -Tubular Bandage Double Layer -Size of Tubigrip Used Size E -Size E ($) 2 Pain Scale: 0-10 Numeric Is Patient Pain Free? Yes WC - Visit Discharge Discharge Condition Stable Ambulatory Status Ambulatory Transportation Private Auto Medication Reconcilliation completed & No provided to patient/care provider Clinical Summary of Care Provided Yes Notes: assisted Lizet Bowden RN with dressing change Charges/Coding Visit Charges Office Visits / Consults: 80131 OV L3 New Procedures Integumentary 111xxx-113xx: [id number] [place] subq tissue 20 sq cm/< Assessment/Plan Assessment/Plan (1) Ulcer of left lower extremity with fat layer exposed: CODE(S): L97.922 - Non-pressure chronic ulcer of unspecified part of left lower leg with fat layer exposed (2) Type 2 diabetes mellitus: CODE(S): E11.9 - Type 2 diabetes mellitus without complications QUALIFIERS: Diabetes mellitus termination clerk insulin use: without shelter use Diabetes mellitus complication status: with other specified complication Qualified Code(s): E11.69 - Type 2 diabetes mellitus with other specified complication (3) Raynauds disease: CODE(S): I73.00 - Raynaud's syndrome without gangrene QUALIFIERS: Raynaud?s-associated gangrene presence: with gangrene Qualified Code(s): I73.01 - Raynaud's syndrome with gangrene (4) Skin ulcer of hand: CODE(S): L98.499 - Non-pressure chronic ulcer of skin of other sites with unspecified severity QUALIFIERS: Non-pressure ulcer stage: unspecified non-pressure ulcer stage Qualified Code(s): L98.499 - Non-pressure chronic ulcer of skin of other sites with unspecified severity PLAN: Plan Debridement done as documented above, procedure was well-tolerated. Did not tolerate debridement to right middle finger so this was stopped. Due to chronicity, cultures taken from left lower extremity. Aquacel extra to left lower extremity. Foam dressing over top. Change daily to twice daily dependingon drainage. Double layer Tubigrip for edema management. Hydrogel to right middle finger, change daily. She was advised to speak with her primary care provider about going on a medication for diabetes. Lifestyle and dietary modifications also discussed. Increase protein intake, vitamin C, D and zinc also discussed to aid in wound healing, patient voiced understanding. Follow-upin a week or sooner if needed. This note was generated with [employer] dictation software. It may contain incorrectwords, spelling, and punctuation that were not noted in checking the note beforesigning. 10/12/22 1335 <Electronically signed by Pato Correa MD> Cosigner Signature (if applicable): CC: ~ Signed [facility] Work Phone: [phone] 353-935006-01-2023 History of Present illness NarrativePatient presents wishing to discuss surgery regarding the left ovarian cyst. She states that she has intermittent pain on the left side and wishes to discuss surgery. Last menstrual period was in August. She is using nothing for contraception at this time.[employer] Work Phone: [phone]) 828-854009-04-2022 History of Present illness NarrativePatient is a 36-year-old who comes in to discuss the results of her ultrasound. Patient had an ultrasound done approximately 2 months ago for an enlarged ovarian cyst. The patient reports she has been completely asymptomatic. Patient reports she has no pain and no issues. Patient reports that she stopped her Depo-Provera about 10 months ago and had been on it for several years and has not had recu rrence of her menses. Patient reports that she saw Dr. Rodriguez and he tried withdrawal bleed with 10 mg and 5 mg of Provera and has had no bleeding. [employer] Work Phone: [phone] 194-715903-24-2022 Chief complaint Narrative - ReportedPatient is here for [place]. 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 Patient had a LEEP procedure in 2014. LMP: Unknown. Patient states she stopped her Depo over a year ago and still hasn't had a period. In office test was negative.[employer] Work Phone: [phone] 770-606003-24-2022 History of Present illness NarrativePatient presents for colposcopy due to recent Pap smear showing mild dysplasia. Patient had previous LEEP conization for severe dysplasia in 2014. Patient stopped the Depo-Provera approximately a year ago and has not had a menstrual flow since that time. 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 Patient reports a history of abnormal Pap smears in the past including a LEEP but reports that her last Pap smear was normal. Patient also reports that she stopped the Depo-Provera over a year ago and has not had her periods return. Patient has no additional concerns [employer] Work Phone: [phone] Chief complaint Narrative - ReportedPatient here today for annual exam. She has had abnormal paps in past, colpo x2 and LEEP procedure.Last pap: 03/21/2021 Cotest negative. Stopped taking Depo over a year ago and no period since. Not interested in contraception. LMP: [email or web address] Work Phone: [phone] History of Present illness NarrativeShe presents for follow-up after cervical biopsies due to mild dysplasia on recent Pap smear. Patient states her last Depo-Provera shot was March 2021. She has not had a menstrual flow since that time. She has obtained blood work that was ordered by Dr. Lyman. Patient was recently informed of results by Dr. Lyman. [employer] Work Phone: Evaluation note* Diagnosis Onset Date Resolution Status Raynauds disease acute Skin ulcer of hand acute Type 2 diabetes mellitus acu te Ulcer of left lower extremity with fat layer exposed acute [facility] Work Phone: Evaluation note* Diagnosis Hypertension associated with diabetes (CMS/HCC)- Primary Unspecified essential hypertension Controlled type 2 diabetes mellitus with hyperglycemia, without long-term current use of insulin (CMS/HCC) Elevated ferritin Other abnormal blood chemistry Raynaud's disease without gangrene Non-healing wound of lower extremity, left, subsequent encounter Bilateral hand pain Overweight (BMI 25.0-29.9) Overweight Chronic renal impairment, stage 3a (CMS/HCC) Non-healing wound of upper extremity, right, subsequent encounter documented in this encounter [facility] Work Phone: Evaluation note* Diagnosis Onset Date Resolution Status Raynauds disease acute Skin ulcer of hand acute Type 2 diabetes mellitus acu te Ulcer of left lower extremity with fat layer exposed acute Raynauds disease acute Skin ulcer of hand acute Type 2 diabetes mellitus acu te Ulcer of left lower extremity with fat layer exposed acute [facility] Work Phone: Evaluation note* Diagnosis Raynaud's disease without gangrene- Primary Non-healing wound of upper extremity, right, subsequent encounter Non-healing wound of lower extremity, left, subsequent encounter Hypertension associated with diabetes (CMS/HCC) Unspecified essential hypertension Controlled type 2 diabetes mellitus with hyperglycemia, without long-term current use of insulin (CMS/HCC) Overweight (BMI 25.0-29.9) Overweight Chronic renal impairment, stage 3a (CMS/HCC) Ulcer of finger, unspecified ulcer stage (CMS/HCC) documented in this encounter [facility] Work Phone: Evaluation note* Diagnosis Cellulitis- Primary Cellulitis and abscess of unspecified site Ulcer of left lower extremity, unspecified ulcer stage (CMS/HCC) Cellulitis of left lower extremity Other specified peripheral vascular diseases (CMS/HCC) Murmur Undiagnosed cardiac murmurs Ulcer of finger, unspecified ulcer stage (CMS/HCC) Peripheral vascular disease, unspecified (CMS/HCC) Peripheral vascular disease, unspecified documented in this encounter [facility] Work Phone: Evaluation note* Diagnosis Hospital discharge follow-up- Primary Other follow-up examination Hypertension associated with diabetes (CMS/HCC) Unspecified essential hypertension Raynaud's disease without gangrene Controlled type 2 diabetes mellitus with hyperglycemia, without long-term current use of insulin (CMS/HCC) Overweight (BMI 25.0-29.9) Overweight Non-healing wound of lower extremity, left, subsequent encounter Ulcer of finger, unspecified ulcer stage (CMS/HCC) Pulmonary hypertension (CMS/HCC) Other chronic pulmonary heart diseases Severe tricuspid regurgitation by prior echocardiogram documented in this encounter [facility] Work Phone: Evaluation note* Diagnosis Venous insufficiency (chronic) (peripheral) Unspecified venous (peripheral) insufficiency Pain in left leg documented in this encounter [facility] Work Phone: Evaluation note* Diagnosis 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)- Primary 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) Severe tricuspid regurgitation by prior echocardiogram Pulmonary hypertension (CMS/HCC) Other chronic pulmonary heart diseases Elevated ferritin Other abnormal blood chemistry History of ovarian cyst Personal history of other genital system and obstetric disorders Overweight (BMI 25.0-29.9) Overweight Elevated red blood cell count Polycythemia, secondary Vaginal lesion Other specified noninflammatory disorder of vagina Amenorrhea Absence of menstruation Seasonal allergies Allergic rhinitis, cause unspecified Sacroiliac joint dysfunction of left side Pain of left lower extremity Ovarian cyst, complex Low serum HDL Lesion of left ovary Leg edema Edema Hypertriglyceridemia Pure hyperglyceridemia Controlled type 2 diabetes mellitus with hyperglycemia, without long-term current use of insulin (CMS/HCC) ELIZABETH (generalized anxiety disorder) Generalized anxiety disorder Hypertension associated with diabetes (CMS/HCC) Unspecified essential hypertension Dysplasia of cervix, low grade ([place] 1) Cervix dysplasia Dysplasia of cervix, unspecified Abnormal uterine bleeding (AUB) Non-healing wound of lower extremity, left, subsequent encounter documented in this encounter [facility] Work Phone: Evaluation note* Diagnosis Venous insufficiency (chronic) (peripheral) Unspecified venous (peripheral) insufficiency Pain in left leg documented in this encounter [facility] Work Phone: Evaluation note* Diagnosis Personal history of other diseases of the female genital tract documented in this encounter [facility] Work Phone: Evaluation note* Diagnosis Leg wound, left, subsequent encounter- Primary documented in this encounter [facility] Work Phone: Evaluation note* Diagnosis Left ovarian cyst- Primary Other and unspecified ovarian cyst documented in this encounter [facility] Work Phone: Evaluation note* Diagnosis Cellulitis of left leg- Primary documented in this encounter [facility] Work Phone: Evaluation note* Diagnosis Cellulitis- Primary Cellulitis and abscess of unspecified site Cellulitis Cellulitis and abscess of unspecified site Localized edema Edema Severe tricuspid regurgitation by prior echocardiogram Pulmonary hypertension (CMS/HCC) Other chronic pulmonary heart diseases Difficulty walking Difficulty in walking documented in this encounter [facility] Work Phone: Evaluation note* Diagnosis Pulmonary hypertension (Multi)- Primary Other chronic pulmonary heart diseases Pulmonary hypertension (Multi) Other chronic pulmonary heart diseases Primary pulmonary hypertension (Multi) Primary pulmonary hypertension Cellulitis of left lower extremity Constipation, unspecified constipation type Non-pressure chronic ulcer of left lower leg with fat layer exposed (Multi) History of difficulty sleeping Pulmonary hypertension (Multi) Other chronic pulmonary heart diseases Pulmonary hypertension (Multi) Other chronic pulmonary heart diseases documented in this encounter [facility] Work Phone: Evaluation note* Diagnosis Hospital discharge follow-up- Primary Other follow-up examination CREST (calcinosis, Raynaud's phenomenon, esophageal dysfunction, sclerodactyly, telangiectasia) (Multi) Pulmonary HTN (Multi) Severe tricuspid regurgitation by prior echocardiogram Pulmonary hypertension (Multi) Other chronic pulmonary heart diseases Hypertension associated with diabetes (Multi) Unspecified essential hypertension Controlled type 2 diabetes mellitus with hyperglycemia, without long-term current use of insulin (Multi) Gastroesophageal reflux disease without esophagitis Esophageal reflux Non-healing wound of lower extremity, left, subsequent encounter documented in this encounter [facility] Work Phone: [phone] note* Diagnosis Pulmonary HTN (Multi)- Primary Right ventricular dysfunction Unspecified heart disease documented in this encounter [facility] Work Phone: [phone] note* Diagnosis Pulmonary hypertension (Multi) Other chronic pulmonary heart diseases SOB (shortness of breath) Shortness of breath documented in this encounter [facility] Work Phone: [phone] note* Diagnosis Pulmonary hypertension (Multi) Other chronic pulmonary heart diseases Pulmonary hypertension (Multi) Other chronic pulmonary heart diseases At risk for complication CREST syndrome (Multi) Systemic sclerosis Long-term use of high-risk medication documented in this encounter [facility] Work Phone: [phone] note* Diagnosis Pulmonary hypertension (Multi) Other chronic pulmonary heart diseases At risk for complication CREST syndrome (Multi) Systemic sclerosis Long-term use of high-risk medication documented in this encounter [facility] Work Phone: [phone] note* Diagnosis Pulmonary hypertension (Multi) Other chronic pulmonary heart diseases Pulmonary hypertension (Multi) Other chronic pulmonary heart diseases CREST syndrome (Multi) Systemic sclerosis At risk for complication Long-term use of high-risk medication documented in this encounter [facility] Work Phone: [phone] note* Diagnosis Pulmonary hypertension (Multi) Other chronic pulmonary heart diseases CREST syndrome (Multi) Systemic sclerosis At risk for complication Long-term use of high-risk medication documented in this encounter [facility] Work Phone: [phone] note* Diagnosis Pulmonary hypertension (Multi) Other chronic pulmonary heart diseases Right ventricular dysfunction Unspecified heart disease Severe tricuspid regurgitation by prior echocardiogram documented in this encounter [facility] Work Phone: [phone] note* Diagnosis Pulmonary hypertension (Multi)- Primary Other chronic pulmonary heart diseases Long-term use of high-risk medication documented in this encounter [facility] Work Phone: [phone] note* Diagnosis Dental infection- Primary documented in this encounter [facility] Work Phone: Evaluation note* Diagnosis Decreased finger strength- Primary Low HDL (under 40) Raynaud's disease without gangrene Pulmonary hypertension (Multi) Other chronic pulmonary heart diseases Hypertension associated with diabetes Unspecified essential hypertension Seasonal allergies Allergic rhinitis, cause unspecified Controlled type 2 diabetes mellitus with hyperglycemia, without long-term current use of insulin Chronic renal impairment, stage 3a (Multi) documented in this encounter [facility] Work Phone: Evaluation note* Diagnosis Pulmonary hypertension (Multi) Other chronic pulmonary heart diseases CREST syndrome (Multi) Systemic sclerosis SOB (shortness of breath) Shortness of breath PAH (pulmonary arterial hypertension) with portal hypertension (Multi)- Primary CREST syndrome (Multi) Systemic sclerosis Long-term use of high-risk medication documented in this encounter [facility] Work Phone: Evaluation note* Diagnosis Pulmonary hypertension (Multi) Other chronic pulmonary heart diseases CREST syndrome (Multi) Systemic sclerosis SOB (shortness of breath) Shortness of breath PAH (pulmonary arterial hypertension) with portal hypertension (Multi)- Primary CREST syndrome (Multi) Systemic sclerosis Long-term use of high-risk medication documented in this encounter [facility] Work Phone: Evaluation note* Diagnosis PAH (pulmonary arterial hypertension) with portal hypertension (Multi)- Primary CREST syndrome (Multi) Systemic sclerosis Long-term use of high-risk medication documented in this encounter [facility] Work Phone: Evaluation note* Diagnosis Pulmonary hypertension (Multi)- Primary Other chronic pulmonary heart diseases Pulmonary hypertension (Multi) Other chronic pulmonary heart diseases documented in this encounter [facility] Work Phone: History of Present illness Narrative* Patient presents today for.... * 1 to Review labs * 2 Med check * anxiety - hydroxyzine * GERD - on pepcid * HTN - on lisinopril - home readings are good * raynauds - stable * allergies - on loratadine * 3 Preventative Testing * mammo suggest age 38 * PAP - Mar 2020- abnorm - following with MANAGER GRANT * DEXA -suggest age 48 * colonoscopy - suggest colonoscopy at age 43 [facility] Work Phone: History of Present illness Narrative* Patient presents today for.... * 1 to Review labs * 2 Med check * anxiety - hydroxyzine - PRN - unsure if this works but states only exp anxiety on rare occasion andher script may be old. we discussed new script and trying 20-30 mg/episode * GERD - tums prn - rare * HTN - on lisinopril - home readings are good * raynauds - stable * allergies - on loratadine * 3 Preventative Testing * mammo suggest age 38 * PAP - Mar 2020- abnorm - following with MANAGER GRANT * DEXA -suggest age 48 * colonoscopy - suggest colonoscopy at age 43 * PHQ2 Depression screen - NEG APR 2021 * 4 L thumb lump - comes and goes * she states if she picks at the skin it resolves but comes back and admits with work she is always pushing a button with that thumb -[facility] Work Phone: History of Present illness [id number] G3, P2 presents to discuss not having cycle almost 8 months. Patient been on the Depo for a long time and just came off in the beginning years approaching 6 months since then. Patient says she is getting in December 23 and her are trying to have a baby. Patient she recently ED last night for upper abdominal pain and had imaging and lab work. Patient notes her pain is resolved this morning and she has no lower belly pain no problems or pain with intimacy [employer] Work Phone: History of Present illness NarrativePatient presents to review recent pelvic ultrasound regarding a left ovarian cyst. Patient is usingnothing for contraception as she is planning to try to conceive in the near future. She denies any bowel or bladder problems. Denies any abdominal pain at this time.[employer] Work Phone: Reason for referral (narrative)* Consultation (Routine) - Authorized Specialty Diagnoses / Procedures Referred By Contac t Referred To Contact Cardiology Diagnoses Pulmonary hypertension (CMS/HCC) Severe tricuspid regurgitation by prior echocardiogram Rajendra Foley, ROBERT [address] [place] [address] Referral ID Status Reason Start Date Expiration Date Visits Requested Visits Authorized [id number] Authorized Specialty Services Required 04/11/2023 04/10/2024 1 1 * Consultation (Routine) - Authorized Specialty Diagnoses / Procedures Referred By Contac t Referred To Contact Podiatry Diagnoses Non-healing wound of lower extremity, left, subsequent encounter Ulcer of finger, unspecified ulcer stage (CMS/HCC) Rajendra Foley PA-C [address] [place] [address] Referral ID Status Reason Start Date Expiration Date Visits Requested Visits Authorized [id number] Authorized Specialty Services Required 04/11/2023 04/10/2024 1 1 [facility] Work Phone: Reason for referral (narrative)* Consultation (Routine) - Authorized Specialty Diagnoses / Procedures Referred By Miguelito t Referred To Contact Rheumatology Diagnoses CREST (calcinosis, Raynaud's phenomenon, esophageal dysfunction, sclerodactyly, telangiectasia) (Multi) Rajendra Foley PA-C [address] [place] [address] Referral ID Status Reason Start Date Expiration Date Visits Requested Visits Authorized [id number] Authorized Specialty Services Required 07/04/2023 07/03/2024 1 1 [facility] Work Phone: Reason for visit Narrative* CV Imaging (Routine) - Authorized Specialty Diagnoses / Procedures Referred By Contac t Referred To Contact Cardiology Diagnoses Pulmonary hypertension (Multi) SOB (shortness of breath) Procedures Transthoracic Echo Complete AK ECHO TTHRC R-T 2D W/WOM-MODE COMPL SPEC&[place] [address] [place] [address] Phone: tel: fax: Referral ID Status Reason Start Date Expiration Date Visits Requested Visits Authorized [id number] Authorized Perform Procedure 12/18/2023 12/17/2024 1 1 [facility] Work Phone: reason for visit Narrative* PFT (Routine) - Pending Review Specialty Diagnoses / Procedures Referred By Contac t Referred To Contact Diagnoses Pulmonary hypertension (Multi) Procedures Pulmonary Stress Test (6 Min. Walk) [place] [address] [place] [address] Phone: tel: fax: Referral ID Status Reason Start Date Expiration Date V isits Requested Visits Authorized [id number] Pending Review 06/19/2023 06/18/2024 1 1 [facility] Work Phone: reason for visit Narrative* PFT (Routine) - Pending Review Specialty Diagnoses / Procedures Referred By Contac t Referred To Contact Diagnoses Pulmonary hypertension (Multi) Procedures Pulmonary Stress Test (6 Min. Walk) [place] [address] [place] [address] Phone: tel: fax: Referral ID Status Reason Start Date Expiration Date V isits Requested Visits Authorized [id number] Pending Review 02/19/2024 02/18/2025 1 1 [facility] Work Phone: Recbzm for visit Narrative* Consultation (Routine) - Pending Review Specialty Diagnoses / Procedures Referred By Contac t Referred To Contact Cardiology Diagnoses Pulmonary hypertension (Multi) Right ventricular dysfunction Severe tricuspid regurgitation by prior echocardiogram Melissa Esquivel, [employer] SALES ASSOCIATE-CUSTOMER ENGINEER, DNP [address] [facility] [address] [place] [address] Phone: tel: fax: Rocio Arroyo MD [address] [facility] [address] [place] [address] Phone: tel: fax: Referral ID Status Reason Start Date Expiration Date Visits Requested Visits Authorized [id number] Pending Review Specialty Services Required 4 02/21/2025 1 1 [facility] Work Phone: Repghf for visit Narrative* PFT (Routine) - Pending Review Specialty Diagnoses / Procedures Referred By Contac t Referred To Contact Diagnoses Pulmonary hypertension (Multi) CREST syndrome (Multi) SOB (shortness of breath) Procedures Pulmonary Stress Test (6 Min. Walk) [place] [address] [place] [address] Phone: tel: fax: Referral ID Status Reason Start Date Expiration Date V isits Requested Visits Authorized [id number] Pending Review 05/28/2024 05/28/2025 1 1 [facility] Work Phone: reason for visit Narrative* CV Imaging (Routine) - Authorized Specialty Diagnoses / Procedures Referred By Contac t Referred To Contact Cardiology Diagnoses Pulmonary hypertension (Multi) CREST syndrome (Multi) SOB (shortness of breath) Procedures Transthoracic Echo (TTE) Complete AK ECHO TTHRC R-T 2D W/WOM-MODE COMPL SPEC&[place] [address] [place] [address] Phone: tel: fax: Referral ID Status Reason Start Date Expiration Date Visits Requested Visits Authorized [id number] Authorized Perform Procedure 05/28/2024 05/28/2025 1 1 [facility] Work Phone: Releet for visit Narrative* Auth/Cert Specialty Diagnoses / Procedures Referred By Contac t Referred To Contact Diagnoses Pulmonary hypertension (Multi) Procedures AK RIGHT HEART CATH O2 SATURATION & CARDIAC OUTPUT Right Heart Catheterization Antonio Carpenter MD [address], [facility] [address] [place] [address] Phone: tel: fax: [facility] [address] [place] [address] Phone: tel: fax: Referral ID Status Reason Start Date Expiration Date Visits Re quested Visits Authorized [id number] 1 1 [facility] Work Phone: Summary Purpose Family History No Family History Records FoundUnknown Family Member Name Dates Details Family history of asthma(V17 .5, Z82.5) Comments:Other Status:Active Family history of diabetes m ellitus(V18.0, Z83.3) Comments:Other Status:Active Family history of myocardial infarction(V17.3, Z82.49) Comments:Other Status:Active Family history of hypertensi on(V17.49, Z82.49) Comments:Other Status:Active Father Name Dates Details Family history of osteoporos is(V17.81, Z82.62) Status:Active Unknown Family Member Name Dates Details Family history of osteoporos is: Father(V17.81, Z82.62) Status:Active Family history of diabetes m ellitus: Other(V18.0, Z83.3) Status:Active Family history of myocardial infarction: Other(V17.3, Z82.49) Status:Active Family history of hypertensi on: Other(V17.49, Z82.49) Status:Active Family history of asthma: Ot her(V17.5, Z82.5) Status:Active Unknown Family Member Name Dates Details Family history of osteoporos is: Father(V17.81, Z82.62) Status:Active Family history of diabetes m ellitus: Other(V18.0, Z83.3) Status:Active Family history of myocardial infarction: Other(V17.3, Z82.49) Status:Active Family history of hypertensi on: Other(V17.49, Z82.49) Status:Active Family history of asthma: Ot her(V17.5, Z82.5) Status:Active Unknown Family Member Name Dates Details Family history of osteoporos is: Father(V17.81, Z82.62) Status:Active Family history of diabetes m ellitus: Other(V18.0, Z83.3) Status:Active Family history of myocardial infarction: Other(V17.3, Z82.49) Status:Active Family history of hypertensi on: Other(V17.49, Z82.49) Status:Active Family history of asthma: Ot her(V17.5, Z82.5) Status:Active Unknown Family Member Name Dates Details Family history of osteoporos is: Father(V17.81, Z82.62) Status:Active Family history of diabetes m ellitus: Other(V18.0, Z83.3) Status:Active Family history of myocardial infarction: Other(V17.3, Z82.49) Status:Active Family history of hypertensi on: Other(V17.49, Z82.49) Status:Active Family history of asthma: Ot her(V17.5, Z82.5) Status:Active Unknown Family Member Name Dates Details Family history of osteoporos is: Father(V17.81, Z82.62) Status:Active Family history of diabetes m ellitus: Other(V18.0, Z83.3) Status:Active Family history of myocardial infarction: Other(V17.3, Z82.49) Status:Active Family history of hypertensi on: Other(V17.49, Z82.49) Status:Active Family history of asthma: Ot her(V17.5, Z82.5) Status:Active Unknown Family Member Name Dates Details Family history of osteoporos is: Father(V17.81, Z82.62) Status:Active Family history of diabetes m ellitus: Other(V18.0, Z83.3) Status:Active Family history of myocardial infarction: Other(V17.3, Z82.49) Status:Active Family history of hypertensi on: Other(V17.49, Z82.49) Status:Active Family history of asthma: Ot her(V17.5, Z82.5) Status:Active Unknown Family Member Name Dates Details Family history of osteoporos is: Father(V17.81, Z82.62) Status:Active Family history of diabetes m ellitus: Other(V18.0, Z83.3) Status:Active Family history of myocardial infarction: Other(V17.3, Z82.49) Status:Active Family history of hypertensi on: Other(V17.49, Z82.49) Status:Active Family history of asthma: Ot her(V17.5, Z82.5) Status:Active Unknown Family Member Name Dates Details Family history of osteoporos is: Father(V17.81, Z82.62) Status:Active Family history of diabetes m ellitus: Other(V18.0, Z83.3) Status:Active Family history of myocardial infarction: Other(V17.3, Z82.49) Status:Active Family history of hypertensi on: Other(V17.49, Z82.49) Status:Active Family history of asthma: Ot her(V17.5, Z82.5) Status:Active Unknown Family Member Name Dates Details Family history of osteoporos is: Father(V17.81, Z82.62) Status:Active Family history of diabetes m ellitus: Other(V18.0, Z83.3) Status:Active Family history of myocardial infarction: Other(V17.3, Z82.49) Status:Active Family history of hypertensi on: Other(V17.49, Z82.49) Status:Active Family history of asthma: Ot her(V17.5, Z82.5) Status:Active Unknown Family Member Name Dates Details Family history of osteoporos is: Father(V17.81, Z82.62) Status:Active Family history of diabetes m ellitus: Other(V18.0, Z83.3) Status:Active Family history of myocardial infarction: Other(V17.3, Z82.49) Status:Active Family history of hypertensi on: Other(V17.49, Z82.49) Status:Active Family history of asthma: Ot her(V17.5, Z82.5) Status:Active Unknown Family Member Name Dates Details Family history of osteoporos is: Father(V17.81, Z82.62) Status:Active Family history of diabetes m ellitus: Other(V18.0, Z83.3) Status:Active Family history of myocardial infarction: Other(V17.3, Z82.49) Status:Active Family history of hypertensi on: Other(V17.49, Z82.49) Status:Active Family history of asthma: Ot her(V17.5, Z82.5) Status:Active Unknown Family Member Name Dates Details Family history of osteoporos is: Father(V17.81, Z82.62) Status:Active Family history of diabetes m ellitus: Other(V18.0, Z83.3) Status:Active Family history of myocardial infarction: Other(V17.3, Z82.49) Status:Active Family history of hypertensi on: Other(V17.49, Z82.49) Status:Active Family history of asthma: Ot her(V17.5, Z82.5) Status:Active Unknown Family Member Name Dates Details Family history of osteoporos is: Father(V17.81, Z82.62) Status:Active Family history of diabetes m ellitus: Other(V18.0, Z83.3) Status:Active Family history of myocardial infarction: Other(V17.3, Z82.49) Status:Active Family history of hypertensi on: Other(V17.49, Z82.49) Status:Active Family history of asthma: Ot her(V17.5, Z82.5) Status:Active Unknown Family Member Name Dates Details Family history of asthma: Ot her(V17.5, Z82.5) Status:Active Family history of hypertensi on: Other(V17.49, Z82.49) Status:Active Family history of myocardial infarction: Other(V17.3, Z82.49) Status:Active Family history of diabetes m ellitus: Other(V18.0, Z83.3) Status:Active Family history of osteoporos is: Father(V17.81, Z82.62) Status:Active Unknown Family Member Name Dates Details Family history of osteoporos is: Father(V17.81, Z82.62) Status:Active Family history of diabetes m ellitus: Other(V18.0, Z83.3) Status:Active Family history of myocardial infarction: Other(V17.3, Z82.49) Status:Active Family history of hypertensi on: Other(V17.49, Z82.49) Status:Active Family history of asthma: Ot her(V17.5, Z82.5) Status:Active Unknown Family Member Name Dates Details Family history of osteoporos is: Father(V17.81, Z82.62) Status:Active Family history of diabetes m ellitus: Other(V18.0, Z83.3) Status:Active Family history of myocardial infarction: Other(V17.3, Z82.49) Status:Active Family history of hypertensi on: Other(V17.49, Z82.49) Status:Active Family history of asthma: Ot her(V17.5, Z82.5) Status:Active Unknown Family Member Name Dates Details Family history of osteoporos is: Father(V17.81, Z82.62) Status:Active Family history of diabetes m ellitus: Other(V18.0, Z83.3) Status:Active Family history of myocardial infarction: Other(V17.3, Z82.49) Status:Active Family history of hypertensi on: Other(V17.49, Z82.49) Status:Active Family history of asthma: Ot her(V17.5, Z82.5) Status:Active Unknown Family Member Name Dates Details Family history of osteoporos is: Father(V17.81, Z82.62) Status:Active Family history of diabetes m ellitus: Other(V18.0, Z83.3) Status:Active Family history of myocardial infarction: Other(V17.3, Z82.49) Status:Active Family history of hypertensi on: Other(V17.49, Z82.49) Status:Active Family history of asthma: Ot her(V17.5, Z82.5) Status:Active Unknown Family Member Name Dates Details Family history of osteoporos is: Father(V17.81, Z82.62) Status:Active Family history of diabetes m ellitus: Other(V18.0, Z83.3) Status:Active Family history of myocardial infarction: Other(V17.3, Z82.49) Status:Active Family history of hypertensi on: Other(V17.49, Z82.49) Status:Active Family history of asthma: Ot her(V17.5, Z82.5) Status:Active Unknown Family Member Name Dates Details Family history of osteoporos is: Father(V17.81, Z82.62) Status:Active Family history of diabetes m ellitus: Other(V18.0, Z83.3) Status:Active Family history of myocardial infarction: Other(V17.3, Z82.49) Status:Active Family history of hypertensi on: Other(V17.49, Z82.49) Status:Active Family history of asthma: Ot her(V17.5, Z82.5) Status:Active Unknown Family Member Name Dates Details Family history of osteoporos is: Father(V17.81, Z82.62) Status:Active Family history of diabetes m ellitus: Other(V18.0, Z83.3) Status:Active Family history of myocardial infarction: Other(V17.3, Z82.49) Status:Active Family history of hypertensi on: Other(V17.49, Z82.49) Status:Active Family history of asthma: Ot her(V17.5, Z82.5) Status:Active Unknown Family Member Name Dates Details Family history of osteoporos is: Father(V17.81, Z82.62) Status:Active Family history of diabetes m ellitus: Other(V18.0, Z83.3) Status:Active Family history of myocardial infarction: Other(V17.3, Z82.49) Status:Active Family history of hypertensi on: Other(V17.49, Z82.49) Status:Active Family history of asthma: Ot her(V17.5, Z82.5) Status:Active Unknown Family Member Name Dates Details Family history of osteoporos is: Father(V17.81, Z82.62) Status:Active Family history of diabetes m ellitus: Other(V18.0, Z83.3) Status:Active Family history of myocardial infarction: Other(V17.3, Z82.49) Status:Active Family history of hypertensi on: Other(V17.49, Z82.49) Status:Active Family history of asthma: Ot her(V17.5, Z82.5) Status:Active Unknown Family Member Name Dates Details Family history of osteoporos is: Father(V17.81, Z82.62) Status:Active Family history of diabetes m ellitus: Other(V18.0, Z83.3) Status:Active Family history of myocardial infarction: Other(V17.3, Z82.49) Status:Active Family history of hypertensi on: Other(V17.49, Z82.49) Status:Active Family history of asthma: Ot her(V17.5, Z82.5) Status:Active Unknown Family Member Name Dates Details Family history of osteoporos is: Father(V17.81, Z82.62) Status:Active Family history of diabetes m ellitus: Other(V18.0, Z83.3) Status:Active Family history of myocardial infarction: Other(V17.3, Z82.49) Status:Active Family history of hypertensi on: Other(V17.49, Z82.49) Status:Active Family history of asthma: Ot her(V17.5, Z82.5) Status:Active Advance Directives No Advanced Directives Records FoundLatest Code Status on File Code Status Date Activated Date Inactivated Comments Full Code 04/06/2023 1:36 PM Question Answer Comments Plan of Care: Code Status Discussion Completed Decision Maker: Patient Latest Code Status on File Code Status Date Activated Date Inactivated Comments Full Code 04/06/2023 1:36 PM Question Answer Comments Plan of Care: Code Status Discussion Completed Decision Maker: Patient Latest Code Status on File Code Status Date Activated Date Inactivated Comments Full Code 04/19/2023 8:54 AM Question Answer Comments Plan of Care: Code Status Discussion Completed Decision Maker: Patient Code Status History Code Status Date Activated Date Inactivated Comments Full Code 04/06/2023 1:36 PM 04/19/2023 8:54 AM Question Answer Comments Plan of Care: Code Status Discussion Completed Decision Maker: Patient Latest Code Status on File Code Status Date Activated Date Inactivated Comments Full Code 04/19/2023 8:54 AM Question Answer Comments Plan of Care: Code Status Discussion Completed Decision Maker: Patient Code Status History Code Status Date Activated Date Inactivated Comments Full Code 04/06/2023 1:36 PM 04/19/2023 8:54 AM Question Answer Comments Plan of Care: Code Status Discussion Completed Decision Maker: Patient Latest Code Status on File Code Status Date Activated Date Inactivated Comments Full Code 06/05/2023 3:41 AM Question Answer Comments Plan of Care: Code Status Discussion Completed Decision Maker: Patient Code Status History Code Status Date Activated Date Inactivated Comments Full Code 04/19/2023 8:54 AM 06/05/2023 3:41 AM Question Answer Comments Plan of Care: Code Status Discussion Completed Decision Maker: Patient Full Code 04/06/2023 1:36 PM 04/19/2023 8:54 AM Question Answer Comments Plan of Care: Code Status Discussion Completed Decision Maker: Patient Date Activated Date Inactivated Comments 06/06/2023 10:48 PM Question Answer Comments Plan of Care: Code Status Discussion Completed Decision Maker: Patient Date Activated Date Inactivated Comments 06/05/2023 3:41 AM 06/06/2023 10:48 PM Question Answer Comments Plan of Care: Code Status Discussion Completed Decision Maker: Patient Date Activated Date Inactivated Comments 04/19/2023 8:54 AM 06/05/2023 3:41 AM Question Answer Comments Plan of Care: Code Status Discussion Completed Decision Maker: Patient Date Activated Date Inactivated Comments 04/06/2023 1:36 PM 04/19/2023 8:54 AM Question Answer Comments Plan of Care: Code Status Discussion Completed Decision Maker: Patient Date Activated Date Inactivated Comments 06/06/2023 10:48 PM Question Answer Comments Plan of Care: Code Status Discussion Completed Decision Maker: Patient Date Activated Date Inactivated Comments 06/05/2023 3:41 AM 06/06/2023 10:48 PM Question Answer Comments Plan of Care: Code Status Discussion Completed Decision Maker: Patient Date Activated Date Inactivated Comments 04/19/2023 8:54 AM 06/05/2023 3:41 AM Question Answer Comments Plan of Care: Code Status Discussion Completed Decision Maker: Patient Date Activated Date Inactivated Comments 04/06/2023 1:36 PM 04/19/2023 8:54 AM Question Answer Comments Plan of Care: Code Status Discussion Completed Decision Maker: Patient Chief Complaint Pt presents to this office for 6 month f/u labs, med chk. No concerns. D/ C meclizine, cephalexin.* Patient is here for Depo Inj. * Office Supply * [facility] - [id number] * Lot # - [id number] * Exp - 05/03 * Site - Right Buttock * Depo Provera 150 mg/mL IM * Return date - 12/22/2020 * Patient is here for Depo Inj * Pt Supply * [facility]: [id number] * Lot# [id number] * Exp: 09/2021 * Site: Left buttocks * Depo Provera 150mg/mL IM * Return Date: 03/21/2021 6 MO FU WITH LABS AND MEDCHECK; C/O LUMP UNDER SKIN ON THUMB AT LEAST A COUPLE MONTHS.PT IS HERE TODAY HAD HER LAST DEPO IN MARCH AND STILL HAS NOT HAD A PERIOD. HAS HAD NO SPOTTING OR CRAMPING. HAD A TEST DONE WHEN SHE WAS IN THE ER ON 11/28/2021.Patient here today to discuss ultrasound results. She has no concerns. She stopped the Depo shot inJanuary and still has not had a period. PT IS HERE TODAY FOR COLPO RESULTS. HAS NO CONCERNS.Patient is here to discuss surgery for her left ovarian cyst. Patient states she is having a lot ofpain with it and would like surgery. LMP: 08/16/22Patient is here to review ultrasound. Reason for Referral Specialty Diagnoses / Procedures Referred By Miguelito damon Referred To Contact Radiology Diagnoses Non-healing wound of lower extremity, left, subsequent encounter Procedures XR tibia fibula left 2 views Rajendra Foley PA-C [address] [place] [address] Referral ID Status Reason Start Date Expiration Date Visits Requested Visits Authorized [id number] Authorized Perform Procedure 04/05/2023 04/04/2024 1 1 Specialty Diagnoses / Procedures Referred By Contact Referred To Contact Cardiothoracic Surgery / Cardiac Surgery Diagnoses Raynaud's disease without gangrene Non-healing wound of upper extremity, right, subsequent encounter Non-healing wound of lower extremity, left, subsequent encounter Rajendra Foley PA-C [address] [place] [place] [address] Referral ID Status Reason Start Date Expiration Date Visits Requested Visits Authorized [id number] Authorized Specialty Services Required 04/05/2023 04/04/2024 1 1 Specialty Diagnoses / Procedures Referred By Miguelito damon Referred To Contact Cardiology Diagnoses Raynaud's disease without gangrene Non-healing wound of upper extremity, right, subsequent encounter Non-healing wound of lower extremity, left, subsequent encounter Procedures Vascular US PVR With Exercise Rajendra Foley PA-C [address] [place] [address] Referral ID Status Reason Start Date Expiration Date Visits Requested Visits Authorized [id number] Pending Review Perform Procedure 04/05/2023 04/04/2024 1 1 Specialty Diagnoses / Procedures Referred By Miguelito t Referred To Contact Radiology Diagnoses Raynaud's disease without gangrene Non-healing wound of upper extremity, right, subsequent encounter Procedures XR fingers right 2+ views Rajendra Foley, ROBERT [address] [place] [address] Referral ID Status Reason Start Date Expiration Date Visits Requested Visits Authorized [id number] Authorized Perform Procedure 04/05/2023 04/04/2024 1 1 Referral ID Status Reason Start Date Expiration Date Visits Requested Visits Authorized [id number] Authorized Perform Procedure 04/05/2023 04/04/2024 1 1 Specialty Diagnoses / Procedures Referred By Contac t Referred To Contact Cardiology Diagnoses Venous insufficiency (chronic) (peripheral) Procedures Lower extremity venous duplex left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 Barbosa, DPM - Comment: Left leg) morphine injection 2 mg 2 mg, intravenous, Every 5 min PRN, pain moderate (4-6), first line, Starting on Rebecca 04/19/23 at 1040, Recovery (only), Max total of 20 mg regardless of dose. morphine injection 4 mg 4 mg, intravenous, Every 5 min PRN, pain severe (7-10), first line, Starting on Rebecca 04/19/23 at 1040, Recovery (only), Max total of 20 mg regardless of dose. ondansetron (Zofran) injection 4 mg 4 mg, intravenous, Once as needed, nausea/vomiting, first line, Starting on Rebecca 04/19/23 at 1040, For 1 dose, Recovery (only), When administering via IV Push, administer over 3-5 minutes. oxyCODONE (Roxicodone) immediate release tablet 5 mg 5 mg, oral, Every 4 hours PRN, pain mild (1-3), first line, Starting on Rebecca 04/19/23 at 1040, Recovery (only), When able to take oral medications., If ordered PRN for pain, nurse is permitted to administer this medication for higher pain scores based on patient preference? Yes promethazine (Phenergan) 6.25 mg in sodium chloride 0.9% 50 mL IV 6.25 mg, intravenous, Administer over 15 Minutes, Once as needed, Nausea/vomiting, second line, Starting on Rebecca 04/19/23 at 1040, For 1 dose, Recovery (only) Scheduled Medication Order 04/24/2023 04/25/2023 04/26/2023 morphine injection 4 mg (COMPLETED) 4 mg, intravenous, Once, On Rebecca 04/26/23 at 1505, For 1 dose 1536 (Given - Provid er: Terri Patton RN) ondansetron (Zofran) injection 4 mg (COMPLETED) 4 mg, intravenous, Once, On Rebecca 04/26/23 at 1505, For 1 dose, When administering via IV Push, administer over 3-5 minutes. 1536 (Given - Provid er: Terri Patton RN) kgepuzbhmgqu-sldmildllw-cpuylvmz (Zosyn) IV 3.375 g (COMPLETED) 3.375 g, intravenous, at 100 mL/hr, Administer over 0.5 Hours, Once, On Rebecca 04/26/23 at 1415, For 1 dose, premix bag, Dosing of this medication varies based on severity of illness. Does this patient have sepsis or concern for sepsis (probable or documented infection plus systemic manifestations of infection)? No, Suspected Indication (Select all that apply): Cellulitis, Skin and Soft Tissue 1446 (New Bag - Prov ider: Terri Patton RN)1516 (Stopped - Provider: Terri Patton RN) sodium chloride 0.9 % bolus 1,000 mL (COMPLETED) 1,000 mL, intravenous, at 2,000 mL/hr, Administer over 30 Minutes, Once, On Rebecca 04/26/23 at 1405, For 1 dose 1445 (New Bag - Prov ider: Terri Patton RN)1515 (Stopped - Provider: Terri Patton RN) vancomycin in 0.9 % sodium chl (Vancocin) IVPB 1,000 mg (COMPLETED) 1,000 mg, intravenous, at 200 mL/hr, Administer over 60 Minutes, Once, On Rebecca 04/26/23 at 1415, For 1 dose, premix bag, Dosing of this medication varies based on severity of illness. Does this patient have sepsis or concern for sepsis (probable or documented infection plus systemic manifestations of infection)? No, Suspected Indication (Select all that apply): Cellulitis, Skin and Soft Tissue 1445 (New Bag - Prov ider: Terri Patton RN)1545 (Stopped - Provider: Terri Patton RN) Scheduled Medication Order 06/01/2023 06/02/2023 06/03/2023 amoxicillin-pot clavulanate (Augmentin) 875-125 mg per tablet 1 tablet (COMPLETED) 1 tablet, oral, Once, On 06/03/23 at 0500, For 1 dose, Suspected Indication (Select all that apply): Cellulitis, Skin and Soft Tissue, Type of Therapy: Definitive, No Cultures, Coverage (Select all that apply): Streptococcus 0513 (Given - Provid er: Amauri Nation RN) bacitracin ointment 1 Application (COMPLETED) 1 Application, Topical, Once, On 06/03/23 at 0500, For 1 dose, Apply to: leg 0513 (Given - Provid er: Amauri Nation RN) ibuprofen tablet 400 mg (COMPLETED) 400 mg, oral, Once, On 06/03/23 at 0500, For 1 dose, May administer with food to reduce GI upset., If ordered PRN for pain, nurse is permitted to administer this medication for higher pain scores based on patient preference? Yes 0513 (Given - Provid er: Amauri Nation RN) Scheduled Medication Order 06/04/2023 06/05/2023 06/06/2023 iohexol (OMNIPaque) 350 mg iodine/mL solution 80 mL (COMPLETED) 80 mL, intravenous, Once in imaging, Starting on Sun06/04/23 at 2326, For 1 dose 2327 (Given - Provider: Nilda Sevilla) ketorolac (Toradol) injection 30 mg 30 mg, intravenous, Every 6 hours scheduled, First dose on Sun06/05/23 at 0600, For 5 days 0617 (Given - Provider: Lachelle Chavis RN)1223 (Given - Provider: Sri Gomez RN)1746 (Given - Provider: Maura Self RN) 0029 (Given - Provider: Teodora Maynard RN)0625 (Given - Provider: Teodora Maynard RN - Comment: scheduled)1118 (Given - Provider: Corinne Crump, JOHN)1439 (MAR Hold - Provider: Automatic Transfer Provider - Reason: Unreviewed Transfer Orders)1447 (MAR Unhold - Provider: Jania Winslow PA-C)1719 (Given - Provider: Cary Hyatt RN - Comment: pre-medicate for ambulance transport) morphine injection 4 mg (COMPLETED) 4 mg, intravenous, Once, On Sun06/04/23 at 2135, For 1 dose 2200 (Given - Provider: Jaci May RN) nicotine (Nicoderm CQ) 21 mg/24 hr patch 1 patch 1 patch, transdermal, Administer over 24 Hours, Daily, First dose on Sun06/05/23 at 0900 0900 (Not Given - Provider: Milady Mendiola - Reason: Patient/family refused) 0828 (Medication Applied - Provider: Corinne Crump RN)1000 (Medication Removed - Provider: Corinne Crump RN)1439 (MAR Hold - Provider: Automatic Transfer Provider - Reason: Unreviewed Transfer Orders)1447 (MAR Unhold - Provider: Jania Winslow PA-C) ondansetron (Zofran) injection 4 mg (COMPLETED) 4 mg, intravenous, Once, On Sun06/04/23 at 2135, For 1 dose, When administering via IV Push, administer over 3-5 minutes. 2200 (Given - Provider: Jaci May RN) pantoprazole (ProtoNix) EC tablet 20 mg 20 mg, oral, Daily before breakfast, First dose on Sun06/05/23 at 0700, Do not crush, chew, or split. 0623 (Given - Provider: Lachelle Chavis RN) 0625 (Given - Provider: Teodora Maynard RN)1439 (MAR Hold - Provider: Automatic Transfer Provider - Reason: Unreviewed Transfer Orders)1447 (MAR Unhold - Provider: Jania Winslow PA-C) perflutren lipid microspheres (Definity) injection 1.5 mL of dilution (COMPLETED) 1.5 mL of dilution, intravenous, Once in imaging, Starting on Sun06/06/23 at 1123, For 1 dose, Contrast - for use by imaging provider only. Prior to administration, Definity product must be activated. First, bring vial to room temperature. Then, shake vial for 45 seconds. Do not use if the 45 second activation cycle has not been completed. Following activation, the product will appear as a milky white suspension and may be used immediately. If not used within 5 minutes of activation, re-suspend by inverting and shaking the vial for 10 seconds. Discard unused product. Administration: Dilute 1.3 mL of activated DEFINITY with 8.7 mL of normal saline in a 10 mL syringe. Inject 0.5 mL of diluted DEFINITY when notified the images/film are unclear to enhance view of Left Ventricular borders. Repeat 0.5 mL of DEFINITY until clear images are obtained, not to exceed 10 mLs. Once images are obtained or limit of medication is reached, flush line with 10 mL of Normal Saline. 1123 (Given - Provider: Brittany Galvin RN - Comment: 1.5ml of diluted definity given to patient per polysomnographic tech instruction) fzvwvzdpiwhy-egihyikhxe-f extrose (Zosyn) IV 4.5 g (COMPLETED) 4.5 g, intravenous, at 200 mL/hr, Administer over 0.5 Hours, Once, On Sun06/04/23 at 2135, For 1 dose, premix bag, Dosing of this medication varies based on severity of illness. Does this patient have sepsis or concern for sepsis (probable or documented infection plus systemic manifestations of infection)? Yes, Suspected Indication (Select all that apply): Cellulitis, Skin and Soft Tissue, Type of Therapy: Empiric 2201 (New Bag - Provider: Jaci May RN)2234 (Stopped - Provider: Cary Watts RN) polyethylene glycol (Glycolax, Miralax) packet 17 g 17 g, oral, Daily, First dose on Sun06/05/23 at 0900 0951 (Given - Provider: Sri Gomez RN) 0900 (Not Given - Provider: Corinne Crump RN - Reason: Patient/family refused)1439 (MAR Hold - Provider: Automatic Transfer Provider - Reason: Unreviewed Transfer Orders)1447 (MAR Unhold - Provider: Jania Winslow PA-C) sodium chloride 0.9 % bolus 1,000 mL (COMPLETED) 1,000 mL, intravenous, at 500 mL/hr, Administer over 2 Hours, Once, On Sun06/04/23 at 2135, For 1 dose 215 (New Bag - Provider: Jaci May RN) 0032 (Stopped - Provider: Cary Watts, JOHN) vancomycin (Vancocin) 750 mg in dextrose 5 % in water (D5W) 250 mL IV (CANCELED) 750 mg, intravenous, at 353.3 mL/hr, Administer over 45 Minutes, Every 12 hours, First dose on Sun06/05/23 at 1000, Dosing of this medication varies based on severity of illness. Does this patient have sepsis or concern for sepsis (probable or documented infection plus systemic manifestations of infection)? No, Suspected Indication (Select all that apply): Cellulitis, Skin and Soft Tissue, Type of Therapy: Empiric 09 (Given - Provider: Sri Gomez RN)2211 (Given - Provider: Teodora Maynard RN) vancomycin (Vancocin) 750 mg in dextrose 5 % in water (D5W) 250 mL IV 750 mg, intravenous, at 353.3 mL/hr, Administer over 45 Minutes, Every 24 hours, First dose on Sun06/06/23 at 2200, Dosing of this medication varies based on severity of illness. Does this patient have sepsis or concern for sepsis (probable or documented infection plus systemic manifestations of infection)? No, Suspected Indication (Select all that apply): Cellulitis, Skin and Soft Tissue, Type of Therapy: Empiric 2199 (Due) vancomycin (Vancocin) in sodium chloride 0.9% 500 mL IV 2 g (COMPLETED) 2 g, intravenous, at 250 mL/hr, Administer over 120 Minutes, Once, On Sun06/04/23 at 2135, For 1 dose, premix bag, Dosing of this medication varies based on severity of illness. Does this patient have sepsis or concern for sepsis (probable or documented infection plus systemic manifestations of infection)? Yes, Suspected Indication (Select all that apply): Cellulitis, Skin and Soft Tissue 2237 (New Bag - Provider: Aga Reilly RN - Comment: finishing first atbx) 0110 (Stopped - Provider: Cary Watts RN) PRN Medication Order 06/04/2023 06/05/2023 06/06/2023 acetaminophen (Tylenol) oral liquid 650 mg(Linked Group 1) 650 mg, oral, Every 4 hours PRN, pain mild (1-3), first line, Starting on Sun06/05/23 at 0341, Give oral liquid per feeding tube if present. 1439 ([facility] Hold - Provider: Automatic Transfer Provider - Reason: Unreviewed Transfer Orders)1447 ([facility] Unhold - Provider: Jania Winslow PA-C) acetaminophen (Tylenol) suppository 650 mg(Linked Group 1) 650 mg, rectal, Every 4 hours PRN, pain mild (1-3), first line, Starting on Sun06/05/23 at 0341, Give rectally if unable to administer by mouth or feeding tube., If ordered PRN for pain, nurse is permitted to administer this medication for higher pain scores based on patient preference? Yes 143 ([facility] Hold - Provider: Automatic Transfer Provider - Reason: Unreviewed Transfer Orders)1447 ([facility] Unhold - Provider: Jania Winslow PA-C) acetaminophen (Tylenol) tablet 650 mg(Linked Group 1) 650 mg, oral, Every 4 hours PRN, pain mild (1-3), first line, Starting on Sun06/05/23 at 0341, If ordered PRN for pain, nurse is permitted to administer this medication for higher pain scores based on patient preference? Yes 143 ([facility] Hold - Provider: Automatic Transfer Provider - Reason: Unreviewed Transfer Orders)1447 ([facility] Unhold - Provider: Jania Winslow PA-C) busPIRone (Buspar) tablet 5 mg 5 mg, oral, 3 times daily PRN, anxiety, Starting on Sun06/05/23 at 0341 143 ([facility] Hold - Provider: Automatic Transfer Provider - Reason: Unreviewed Transfer Orders)1447 ([facility] Unhold - Provider: Jania Winslow PA-C) magnesium hydroxide (Milk of Magnesia) 2,400 mg/10 mL suspension 10 mL 10 mL, oral, Daily PRN, constipation, first line, Starting on Sun06/05/23 at 0341, Contact provider if no bowel movement in past 48 hours. Concentrated product. Follow administration with 8 ounces of water. 1439 ([facility] Hold - Provider: Automatic Transfer Provider - Reason: Unreviewed Transfer Orders)1447 ([facility] Unhold - Provider: Jania Winslow PA-C) ondansetron (Zofran) injection 4 mg(Linked Group 2) 4 mg, intravenous, Every 6 hours PRN, nausea/vomiting, first line, Starting on Sun06/05/23 at 0350, 1st Line. Give IV if patient is unable to take orally. If inadequate response within 60 minutes, proceed to next-line agent for same PRN reason or contact provider if no further options ordered. When administering via IV Push, administer over 3-5 minutes. 0617 (Given - Provider: Lachelle Chavis RN) 1439 ([facility] Hold - Provider: Automatic Transfer Provider - Reason: Unreviewed Transfer Orders)1447 ([facility] Unhold - Provider: Jania Winslow PA-C) ondansetron ODT (Zofran-ODT) disintegrating tablet 4 mg(Linked Group 2) 4 mg, oral, Every 8 hours PRN, nausea/vomiting, first line, Starting on Sun06/05/23 at 0350, 1st Line. Patient should allow tablet to dissolve on tongue. Do not remove from blister pack until just before administering. If inadequate response within 60 minutes, proceed to next-line agent for same PRN reason or contact provider if no further options ordered. 0617 (See Alternative - Provider: Lachelle Chavis RN) 1439 ([facility] Hold - Provider: Automatic Transfer Provider - Reason: Unreviewed Transfer Orders)1447 ([facility] Unhold - Provider: Jania Winslow PA-C) oxyCODONE (Roxicodone) immediate release tablet 5 mg 5 mg, oral, Every 6 hours PRN, pain severe (7-10), first line, Starting on Sun06/05/23 at 0341, If ordered PRN for pain, nurse is permitted to administer this medication for higher pain scores based on patient preference? Yes 143 ([facility] Hold - Provider: Automatic Transfer Provider - Reason: Unreviewed Transfer Orders)1447 ([facility] Unhold - Provider: Jania Winslow PA-C) traMADol (Ultram) tablet 50 mg 50 mg, oral, Every 6 hours PRN, pain moderate (4-6), second line, Starting on Sun06/05/23 at 0341, Max of 300 mg daily for patients > 75 years of age., If ordered PRN for pain, nurse is permitted to administer this medication for higher pain scores based on patient preference? Yes 1439 ([facility] Hold - Provider: Automatic Transfer Provider - Reason: Unreviewed Transfer Orders)1447 ([facility] Unhold - Provider: Jania Winslow PA-C) vancomycin (Vancocin) pharmacy to dose - pharmacy monitoring miscellaneous, Daily PRN, other, Vancomycin Placeholder, Starting on Sun06/05/23 at 0341, This is a placeholder. Pharmacy will enter orders when vancomycin needs to be administered. Linked Groups Order Group 1: acetaminophen (Tylenol) tablet 650 mgJump to med 650 mg, oral, Every 4 hours PRN, pain mild (1-3), first line, Starting on Sun06/05/23 at 0341
If ordered PRN for pain, nurse is permitted to administer this medication for higher pain scores based on patient preference? Yes Or acetaminophen (Tylenol) oral liquid 650 mgJump to med 650 mg, oral, Every 4 hours PRN, pain mild (1-3), first line, Starting on Sun06/05/23 at 0341
Give oral liquid per feeding tube if present.
Or acetaminophen (Tylenol) suppository 650 mgJump to med 650 mg, rectal, Every 4 hours PRN, pain mild (1-3), first line, Starting on Sun06/05/23 at 0341
Give rectally if unable to administer by mouth or feeding tube.
If ordered PRN for pain, nurse is permitted to administer this medication for higher pain scores based on patient preference? Yes Group 2: ondansetron ODT (Zofran-ODT) disintegrating tablet 4 mgJump to med 4 mg, oral, Every 8 hours PRN, nausea/vomiting, first line, Starting on Sun06/05/23 at 0350
1st Line. Patient should allow tablet to dissolve on tongue. Do not remove from blister pack until just before administering. If inadequate response within 60 minutes, proceed to next-line agent for same PRN reason or contact provider if no further options ordered.
Or ondansetron (Zofran) injection 4 mgJump to med 4 mg, intravenous, Every 6 hours PRN, nausea/vomiting, first line, Starting on Sun06/05/23 at 0350
1st Line. Give IV if patient is unable to take orally. If inadequate response within 60 minutes, proceed to next-line agent for same PRN reason or contact provider if no further options ordered. When administering via IV Push, administer over 3-5 minutes.
Scheduled Medication Order 06/24/2023 06/25/2023 06/26/2023 acetaminophen (Tylenol) oral liquid 650 mg(Linked Group 1) 650 mg, nasogastric tube, Every 6 hours, First dose (after last modification) on 06/23/23 at 0715, Give oral liquid per feeding tube if present. 0318 (See Alternative - Provider: Domi Back RN)0945 (See Alternative - Provider: Hannah Baird RN)1315 (See Alternative - Provider: Hannah Baird RN)1550 (See Alternative - Provider: Hannah Baird RN)2131 (See Alternative - Provider: Antonio Bess RN) 0201 (See Alternative - Provider: Antonio Bess RN)0715 (See Alternative - Provider: Hannah Baird RN)1315 (See Alternative - Provider: Hannah Baird RN)1915 (See Alternative - Provider: Antonio Bess RN) 0115 (See Alternative - Provider: Antonio Bess RN)0715 (See Alternative - Provider: Lary Verduzco RN)1315 (Due)1915 (Due) acetaminophen (Tylenol) suppository 650 mg(Linked Group 1) 650 mg, rectal, Every 6 hours, First dose (after last modification) on 06/23/23 at 0715, Give rectally if unable to administer by mouth or feeding tube., If ordered PRN for pain, nurse is permitted to administer this medication for higher pain scores based on patient preference? Yes 0318 (See Alternative - Provider: Domi Back RN)0945 (See Alternative - Provider: Hannah Baird RN)1315 (See Alternative - Provider: Hannah Baird RN)1550 (See Alternative - Provider: Hannah Baird RN)2131 (See Alternative - Provider: Antonio Bess RN) 0201 (See Alternative - Provider: Antonio Bess RN)0715 (See Alternative - Provider: Hannah Baird RN)1315 (See Alternative - Provider: Hannah Baird RN)1915 (See Alternative - Provider: Antonio Bess RN) 0115 (See Alternative - Provider: Antonio Bess RN)0715 (See Alternative - Provider: aLry Verduzco RN)1315 (Due)1914 (Due) acetaminophen (Tylenol) tablet 975 mg(Linked Group 1) 975 mg, oral, Every 6 hours, First dose (after last modification) on 06/23/23 at 0715, If ordered PRN for pain, nurse is permitted to administer this medication for higher pain scores based on patient preference? Yes 0318 (Given - Provider: Domi Back RN)0945 (Given - Provider: Hannah Baird RN)1315 (Not Given - Provider: Hannah Baird RN - Reason: Patient/family refused)1550 (Given - Provider: Hannah Baird RN)2131 (Given - Provider: Antonio Bess RN) 0201 (Given - Provider: Antonio Bess RN)0715 (Not Given - Provider: Hannah Baird RN - Reason: Other - Comment: OVER MAX DAILY DOSAGE)1315 (Not Given - Provider: Hannah Baird RN - Reason: Patient/family refused)191 (Not Given - Provider: Antonio Bess RN - Reason: Patient/family refused) 0115 (Not Given - Provider: Antonio Bess RN - Reason: Patient/family refused)0715 (Not Given - Provider: Lary Verduzco RN - Reason: Patient/family refused)1315 (Due)1914 (Due) bisacodyl (Dulcolax) suppository 10 mg (COMPLETED) 10 mg, rectal, Once, On Sun06/24/23 at 0245, For 1 dose 0245 (Given - Provider: Domi Back RN) digoxin (Lanoxin) tablet 125 mcg 125 mcg, oral, Daily, First dose on 06/11/23 at 1615 0944 (Given - Provider: Hannah Baird RN) 0911 (Given - Provider: Hannah Baird RN) 0903 (Given - Provider: Lary Verduzco RN) docusate sodium (Colace) capsule 100 mg (CANCELED) 100 mg, oral, 2 times daily, First dose on Sun06/24/23 at 0915 0945 (Given - Provider: Hannah Baird RN) enoxaparin (Lovenox) syringe 40 mg 40 mg, subcutaneous, Every 24 hours, First dose on Sun06/20/23 at 0930, Indications: venous thrombosis 1999 (Not Given - Provider: Antonio Bess RN - Reason: Patient/family refused) 1999 (Not Given - Provider: Antonio Bess RN - Reason: Patient/family refused) 1999 (Due) HYDROmorphone (Dilaudid) injection 0.4 mg (COMPLETED) 0.4 mg, intravenous, Once, On Sun06/24/23 at 0345, For 1 dose 0345 (Given - Provider: Domi Back RN) lactulose 20 gram/30 mL oral solution 20 g (CANCELED) 20 g, oral, Every 2 hours, First dose on Sun06/25/23 at 1215, For 4 doses, CONTRAINDICATED IN LIVER TRANSPLANT PATIENTS IN POST-OP PHASE OF CARE 1319 (Given - Provider: Hannah Baird RN)1554 (Given - Provider: Hannah Baird RN)1615 (Not Given - Provider: Hannah Baird RN - Reason: Other - Comment: pt had BM)1815 (Not Given - Provider: Hannah Baird RN - Reason: Other) melatonin tablet 6 mg 6 mg, oral, Daily, First dose on Sun06/11/23 at 1800 1999 (Not Given - Provider: Antonio Bess RN - Reason: Patient/family refused) 1999 (Not Given - Provider: Antonio Bess RN - Reason: Patient/family refused) 1999 (Due) pantoprazole (ProtoNix) EC tablet 40 mg 40 mg, oral, Daily before breakfast, First dose on Sun06/11/23 at 0700, Do not crush, chew, or split. 0944 (Given - Provider: Hannah Baird RN) 0911 (Given - Provider: Hannah Baird RN) 09 (Given - Provider: Lary Verduzco, JOHN) polyethylene glycol (Glycolax, Miralax) packet 17 g (COMPLETED) 17 g, oral, Once, On Sun06/24/23 at 0030, For 1 dose 0030 (Given - Provider: Domi Back RN) polyethylene glycol (Glycolax, Miralax) packet 17 g 17 g, oral, Daily, First dose on 06/24/23 at 0915 0944 (Given - Provider: Hannah Baird RN) 0910 (Given - Provider: Hannah Baird RN) 0900 (Not Given - Provider: Lary Verduzco RN - Reason: Patient/family refused) sennosides-docusate sodium (Diamond-Colace) 8.6-50 mg per tablet 1 tablet (CANCELED) 1 tablet, oral, Nightly, First dose on 06/24/23 at 2100 2007 (Given - Provider: Antonio Bess RN) sennosides-docusate sodium (Diamond-Colace) 8.6-50 mg per tablet 1 tablet 1 tablet, oral, 2 times daily, First dose (after last modification) on Sun06/25/23 at 2100 2100 (Not Given - Provider: Antonio Bess RN - Reason: Patient/family refused) 0900 (Not Given - Provider: Lary Verduzco RN - Reason: Patient/family refused)2100 (Due) trimethobenzamide (Tigan) injection 200 mg 200 mg, intramuscular, Once, On 06/10/23 at 2100, For 1 dose, Inject deep into upper outer quadrant of gluteal muscle. Do not give IV. Continuous Medication Order 06/24/2023 06/25/2023 06/26/2023 treprostinil (Remodulin) 20 mcg/mL in diluent for treprostinil 100 mL Bag 9 ng/kg/min 81 kg Order-specific weight (2.187 mL/hr), intravenous, Continuous, Starting on 06/24/23 at 1300, Via dedicated central line. If central line unavailable, may infuse peripherally through dedicated IV. , Rate to be programmed into IV Pump (in mL/24 HOURS): 52.488 0335 (Rate/Dose Change - Provider: Domi Back RN)1200 (New Bag - Provider: Hannah Baird RN)1900 (Rate/Dose Verify - Provider: Antonio Bess RN) 0934 (New Bag - Provider: Hannah Baird RN)1900 (Rate/Dose Verify - Provider: Antonio Bess RN) PRN Medication Order 06/24/2023 06/25/2023 06/26/2023 alum-mag hydroxide-simeth (Mylanta) 200-200-20 mg/5 mL oral suspension 10 mL 10 mL, oral, 4 times daily PRN, indigestion, heartburn, Starting on 06/16/23 at 2117 bisacodyl (Dulcolax) suppository 10 mg 10 mg, rectal, Daily PRN, constipation, first line, Starting on 06/24/23 at 1532 1550 (Given - Provider: Hannah Baird RN) busPIRone (Buspar) tablet 5 mg 5 mg, oral, Daily PRN, For anxiety/depression as needed - pt reporting taking PRN, Starting on 06/24/23 at 1130 caffeine tablet 200 mg 200 mg, oral, Every 6 hours PRN, headaches, Starting on 06/23/23 at 1500, Dose = mg of caffeine. (Order only half the usual caffeine citrate or caffeine-sodium benzoate dose) 0318 (Given - Provider: Domi Back RN) 0500 (Given - Provider: Antonio Bess RN) dextrose 50 % injection 12.5 g 12.5 g, intravenous, Every 15 min PRN, For blood glucose less than or equal to 70 mg/dL, Starting on Rebecca 06/07/23 at 1347, May repeat until blood glucose level reaches 100 mg/dL or greater. Push 2 - 3 mL/minute if patient has secure IV access. dextrose 50 % injection 25 g 25 g, intravenous, Every 15 min PRN, For blood glucose less than or equal to 40 mg/dL, Starting on Rebecca 06/07/23 at 1347, May repeat until blood glucose level reaches 100 mg/dL or greater. Push 2 - 3 mL/minute if patient has secure IV access. diclofenac sodium (Voltaren) 1 % gel 4 g 4 g, Topical, 4 times daily PRN, pain mild (1-3), first line, Starting on Tu06/19/23 at 1157, Apply to right big toe gabapentin (Neurontin) capsule 300 mg 300 mg, oral, Every 8 hours PRN, For foot pain, Starting on Sun06/20/23 at 1328, Capsules may be opened and sprinkled on food (eg, applesauce, orange juice, pudding glucagon (Glucagen) injection 1 mg 1 mg, intramuscular, Every 15 min PRN, low blood sugar - see comments, For blood glucose less than or equal to 40 mg/dL and no IV access, Starting on Rebecca 06/07/23 at 1347, Give until blood glucose is 100 mg/dL or greater. If patient DOES NOT HAVE secure IV access & patient is unconscious, NPO or is unable to eat or drink. glucagon (Glucagen) injection 1 mg 1 mg, intramuscular, Every 15 min PRN, low blood sugar - see comments, For blood glucose less than or equal to 70 mg/dL and no IV access, Starting on Rebecca 06/07/23 at 1347, Give until blood glucose is 100 mg/dL or greater. If patient DOES NOT HAVE secure IV access & patient is unconscious, NPO or is unable to eat or drink. loperamide (Imodium) capsule 2 mg (COMPLETED) 2 mg, oral, Once as needed, diarrhea, Starting on 06/25/23 at 2141, For 1 dose 2146 (Given - Provider: Antonio Bess, JOHN) ondansetron (Zofran) injection 4 mg 4 mg, intravenous, Every 6 hours PRN, nausea/vomiting, first line, Starting on Rebecca 06/07/23 at 0904, When administering via IV Push, administer over 3-5 minutes. 0316 (Given - Provider: Domi Back RN)1544 (Given - Provider: Hannah Baird RN)2131 (Given - Provider: Antonio Bess RN) oxygen (O2) therapy inhalation, Continuous PRN - O2/gases, other, Starting on Rebecca 06/07/23 at 1728, Device: Nasal Cannula, Rate in liters per minute: 4 LPM, Keep O2 Sat Above: 92% Linked Groups Order Group 1: acetaminophen (Tylenol) tablet 975 mgJump to med 975 mg, oral, Every 6 hours, First dose (after last modification) on 06/23/23 at 0715, If ordered PRN for pain, nurse is permitted to administer this medication for higher pain scores based on patient preference? Yes Or acetaminophen (Tylenol) oral liquid 650 mgJump to med 650 mg, nasogastric tube, Every 6 hours, First dose (after last modification) on 06/23/23 at 0715, Give oral liquid per feeding tube if present. Or acetaminophen (Tylenol) suppository 650 mgJump to med 650 mg, rectal, Every 6 hours, First dose (after last modification) on 06/23/23 at 0715, Give rectally if unable to administer by mouth or feeding tube., If ordered PRN for pain, nurse is permitted to administer this medication for higher pain scores based on patient preference? Yes PRN Medication Order 09/27/2024 09/28/2024 09/29/2024 acetaminophen (Tylenol) tablet 650 mg 650 mg, oral, Every 6 hours PRN, pain mild (1-3), first line, Starting on Sun09/29/24 at 0918, Recovery & On Unit, If inadequate response within 60 minutes, proceed to next-line agent for same PRN reason or contact provider if no further options ordered., If ordered PRN for pain, nurse is permitted to administer this medication for higher pain scores based on patient preference? Yes lidocaine (Xylocaine) 20 mg/mL (2 %) injection (CANCELED) As needed, Starting on Sun09/29/24 at 0903, Intraprocedure 0903 (Given - Provid er: Antonio Hodge MD - Comment: numbing) FOR RECORDS PERTAINING TO PATIENTS WHO ARE OR HAVE BEEN ENROLLED IN A CHEMICAL DEPENDENCY/SUBSTANCEABUSE PROGRAM, SOME INFORMATION MAY BE OMITTED. This clinical summary was aggregated from multiple sources. Caution should be exercised in using it in the provision of clinical care. This summary normalizes information from multiple sources, and as a consequence, information in this document may materially change the coding, format and clinical context of patient data. In addition, data may be omitted in some cases. CLINICAL DECISIONS SHOULD BE BASED ON THE PRIMARY CLINICAL RECORDS. [employer] provides no warranty or guarantee of the accuracy or completeness of information in this document.
[2024-10-25 12:32] LABS: Hematocrit 37.3 % (37-47); Hemoglobin 12.1 g/dL (12.0-15.0); Mean Corp Hgb Conc 32.4 g/dL (32-36); Mean Corpuscular Volume 88.2 fL (81-99); Mean Platelet Vol. 9.9 fl (6.2-12.0); POSITIVE COUNT YES; Platelet Count 63 K/mm3 (150-450); RBC Distribution Width CV 15.1 % (11.6-14.6); RBC Distribution Width SD 48.9 fl (35.1-43.9); Red Blood Count 4.23 M/mm3 (4.2-5.4); Scan Indicated on CBC? Y/N YES- FLAGS NOTED; White Blood Count 2.9 K/mm3 (4.4-11.0)
[2024-10-25 12:53] LABS: Differential Comment SCANNED
[2024-10-25 13:07] LABS: AST(SGOT) 69 U/L (<=31); Alanine Aminotransfer ALT/SGPT 65 U/L (<=34); Albumin, Serum 3.8 g/dL (3.5-5.0); Alkaline Phosphatase 446 U/L (35-104); Anion Gap 12 (5-15); BUN 17 mg/dL (4-19); BUN/Creat Ratio 12.6 RATIO (10-20); Calcium,Total 9.4 mg/dL (7.6-11.0); Carbon Dioxide 21.7 mmol/L (21.0-32.0); Chloride 106 mmol/L (98-108); Globulin 2.8 g/dL (2.2-4.2); Glucose 103 mg/dL (70-99); Magnesium 2.1 mg/dL (1.5-2.2); Potassium 4.1 mmol/L (3.3-5.1); Pro- Brain NATRIURETIC PEPTIDE 1315 pg/mL (<=450)
== END | disposition home or self-care (01) ==
LOC: LAB 12:11
PROVIDERS: PCP Physician Assistant Medical
DX: R06.02 Shortness of breath (principal); I27.20 Pulmonary hypertension, unspecified; Z79.899 Other long term (current) drug therapy
CPT/HCPCS: 36415; 80053; 83735; 83880; 85027

== ENCOUNTER → 2024-12-17 | Outpatient (CLI) | payer MEDICAID, SELFPAY ==
[2024-12-17 17:55] LABS: AST(SGOT) 87 U/L (<=31); Alanine Aminotransfer ALT/SGPT 80 U/L (<=34); Albumin, Serum 4.0 g/dL (3.5-5.0); Alkaline Phosphatase 572 U/L (35-104); Anion Gap 12 (5-15); BUN 14 mg/dL (4-19); BUN/Creat Ratio 12.3 RATIO (10-20); Calcium,Total 9.0 mg/dL (7.6-11.0); Carbon Dioxide 20.1 mmol/L (21.0-32.0); Chloride 108 mmol/L (98-108); Cholesterol 150 mg/dL (<=200); Globulin 3.1 g/dL (2.2-4.2); Glucose 81 mg/dL (70-99); Low Density Lipoprotein Calc. 77 mg/dL; Potassium 3.9 mmol/L (3.3-5.1); Triglycerides 102 mg/dL; Very Low Density Lipoprotein 20 mg/dL (5-40); cholesterol:hdl ratio screen 2.87
== END | disposition home or self-care (01) ==
LOC: VSLAB 11:32
PROVIDERS: PCP Nurse Practitioner Family; Visit Provider Nurse Practitioner Family
DX: E78.5 Hyperlipidemia, unspecified (principal); R73.09 Other abnormal glucose
CPT/HCPCS: 36415; 80053; 80061; 83036

== ENCOUNTER → 2025-01-12 | Outpatient (CLI) | payer MEDICAID, SELFPAY ==
--- NOTE | 2025-01-12 07:59 | US_ITS ---
PROCEDURE: US/Abdomen Limited
== END | disposition home or self-care (01) ==
LOC: US 07:58
PROVIDERS: PCP Nurse Practitioner Family; Referring Provider Nurse Practitioner Family; Visit Provider Nurse Practitioner Family
DX: R94.5 Abnormal results of liver function studies (principal)
CPT/HCPCS: 76705

== ENCOUNTER → 2025-02-11 | Outpatient (CLI) | payer MEDICAID, SELFPAY ==
--- NOTE | 2025-02-11 10:52 | BI_ITS ---
EXAM: SCRN MAMM (CAD)W/AMISH BILAT DATE: 02/11/2025 CLINICAL HISTORY: F, Age 39 y/o , SCREENING No family history. TECHNIQUE: Procedure Code: [id number] Modality: MG Procedure: SCRN MAMM (CAD)W/AMISH BILAT COMPARISON: Baseline examination. FINDINGS: TISSUE DENSITY: The breasts are heterogeneously dense, which may obscure small masses. Bilateral Breast Mammographic Findings: No significant masses, calcifications or other abnormalities are identified. No suspicious masses, areas of developing architectural distortion, or suspicious calcifications. BI/SCRN MAMM (CAD)W/AMISH BILAT IMPRESSION: Unremarkable screening mammogram. OVERALL FINAL ASSESSMENT BI-RADS 1: NEGATIVE. RECOMMENDATION: Routine annual follow-up in 1 Year Additional Recommendation none A letter with findings and recommendations will be mailed to the patient. Reading Location: [place] [address]
== END | disposition home or self-care (01) ==
LOC: OPBI 10:50
PROVIDERS: PCP Nurse Practitioner Family; Referring Provider Nurse Practitioner Family; Visit Provider Nurse Practitioner Family
DX: Z12.31 Encounter for screening mammogram for malignant neoplasm of breast (principal)
CPT/HCPCS: 77063; 77067